=== PATIENT | male | born 1940 | race Caucasian/White ===

== ENCOUNTER → 2016-07-02 | Outpatient (CLI) | payer MEDICARE, BC ==
[2016-07-02 10:43] LABS: Anion Gap 12 mmol/L; Blood Urea Nitrogen 29 mg/dL (9-20); Calcium 9.3 mg/dL (8.4-10.2); Carbon Dioxide 25 mmol/L (22-30); Chloride 102 mmol/L (98-107); Glucose 107 mg/dL (74-99); Non-African American GFR(MDRD) 55 (>60 ml/min/1.73 sqM); Potassium 4.5 mmol/L (3.5-5.1); Sodium 139 mmol/L (137-145)
== END | disposition home or self-care (01) ==
LOC: LABWHC1 09:34
PROVIDERS: ATTEND Internal Medicine
DX: Z48.812 Encounter for surgical aftercare following surgery on the circulatory system (principal); Z95.2 Presence of prosthetic heart valve
CPT/HCPCS: 36415; 80048; 85610

== ENCOUNTER → 2017-03-06 | Outpatient (CLI) | payer MEDICARE, BC ==
[2017-03-06 14:26] LABS: INR 1.2 (<1.2); Prothrombin Time 11.5 sec (9.0-12.0)
[2017-03-06 14:55] LABS: Calcium 9.3 mg/dL (8.4-10.2); Potassium 4.8 mmol/L (3.5-5.1)
== END | disposition home or self-care (01) ==
LOC: LABWHC1 13:52
PROVIDERS: ATTEND Internal Medicine
DX: Z51.81 Encounter for therapeutic drug level monitoring (principal); Z79.01 Long term (current) use of anticoagulants
CPT/HCPCS: 36415; 80048; 83880; 85610

== ENCOUNTER → 2017-06-21 | Outpatient (CLI) | payer MEDICARE, BC ==
[2017-06-21 12:36] LABS: Calcium 9.4 mg/dL (8.4-10.2); Potassium 4.5 mmol/L (3.5-5.1)
== END | disposition home or self-care (01) ==
LOC: LABWHC1 11:53 → EDSTATUS 11:56
PROVIDERS: ATTEND Internal Medicine
DX: I42.8 Other cardiomyopathies (principal); I50.9 Heart failure, unspecified; I51.9 Heart disease, unspecified
CPT/HCPCS: 36415; 80048; 83880

== ENCOUNTER 2017-11-27 08:01 | Day surgery (SDC) | payer MEDICARE, BC ==
[2017-11-21 11:03] VITALS: BMI 22.5
[~2017-11-27 08:01] MED LIST: FAMOTIDINE 20 MG/2 ML VIAL IV ONE; HYDROmorphone 0.5 MG/0.5 ML SYRINGE IVP PRN; LACTATED RINGERS 1,000 ML IV SCH; LIDOCAINE 1% 20 ML VIAL (10MG/ML) FOR IV START INTRADERMA PRN; ceFAZolin 1,000 MG in DEXTROSE/WATER 1 50ML.BAG IV ONE
[2017-11-27 08:32] VITALS: RESP 16; TEMP 97.6
[2017-11-27] MEDS ORDERED: ONDANSETRON 4 MG/2 ML VIAL IVP ONE (08:50)
[2017-11-27] MEDS ORDERED: MIDAZOLAM 2 MG/2 ML VIAL ONE (09:40)
[2017-11-27] MEDS ORDERED: KETAMINE 10 MG/ML 20 ML VIAL ONE (09:40)
[2017-11-27] MEDS ORDERED: LIDOCAINE 1%-EPI 1:100,000 30 ML VIAL SQ ONE ×3 (09:59)
[2017-11-27] MEDS ORDERED: BACITRACIN OINT 1 EACH PACKET TOPICAL ONE (10:50)
--- NOTE | 2017-11-27 11:01 | P.OP ---
Date of Procedure: 11/27/17 Preoperative Diagnosis: Left cheek lesion Scalp lesion Postoperative Diagnosis: Same Procedure(s) Performed: Excision left cheek skin lesion 3.5 x 2.7 cm Local flap reconstruction left cheek defect with primary defect 3.5-2.7 cm and secondary defect 3.5 x 2.9 cm Shave excision scalp lesion 1.7 cm Anesthesia: MAC Surgeon: Davi Velez Estimated Blood Loss (ml): 5 Pathology: other (Left cheek and scalp lesions) Condition: stable Disposition: PACU Indications for Procedure: Is a 77-year-old white male with an enlarging left cheek and scalp lesions Operative Findings: Left cheek lesion which is erythematous and papillomatous and flaking scaling scalp lesion- frozen section on the left cheek skin lesion was scar and negative for malignancy Description of Procedure: The patient brought in the operative suite and placed in a supine position. Patient underwent induction of IV sedation with appropriate monitors placed by the motor electrician prior to this. The patient was prepped and draped in usual aseptic fashion. 1% lidocaine with [id number] epinephrine was infused subcutaneously in field block fashion at both sites. This was allowed to work for 7 minutes vasoconstrictive effect. The left cheek skin lesion was excised grossly entirely and sent for frozen section with the above-noted findings. The edges of the wound are undermined and hemostasis gained with electrocautery. Local rotation advancement flaps were developed from lateral and medial with backcuts in order to close the defect. The defect was then closed with inverted interrupted 5-0 Vicryl suture skin closed with running locking and simple interrupted 5-0 Prolene suture. Bacitracin ointment sterile dressing were placed. The scalp lesion was excised shave excision technique and hemostasis gained with electrocautery. Bacitracin ointment sterile dressing were placed. This was sent for permanent section. The patient was allowed to emerge from anesthesia having tolerated procedure well and was transferred to postop recovery in satisfactory condition.
[2017-11-27 11:27] VITALS: BP 110/72; PULSE 59
== END 2017-11-27 12:15 | disposition home or self-care (01) ==
LOC: OR 08:01
PROVIDERS: ATTEND Otolaryngology
DX: L90.5 Scar conditions and fibrosis of skin (principal); L57.8 Other skin changes due to chronic exposure to nonionizing radiation; L57.0 Actinic keratosis; Z87.891 Personal history of nicotine dependence; J43.9 Emphysema, unspecified; M19.90 Unspecified osteoarthritis, unspecified site; Z95.5 Presence of coronary angioplasty implant and graft; Z79.01 Long term (current) use of anticoagulants; Z79.82 Long term (current) use of aspirin; Z88.5 Allergy status to narcotic agent; Z91.041 Radiographic dye allergy status; Z91.09 Other allergy status, other than to drugs and biological substances
CPT/HCPCS: 88305; 88331; 88332; 11307; 14041; J2250; J2405; J0690

== ENCOUNTER → 2017-12-09 | Outpatient (CLI) | payer MEDICARE, BC ==
[2017-12-09 12:09] LABS: INR 1.1 (<1.2); Prothrombin Time 10.8 sec (9.0-12.0)
== END | disposition home or self-care (01) ==
LOC: LABWHC1 10:41
PROVIDERS: ATTEND Nurse Practitioner Family
DX: I48.91 Unspecified atrial fibrillation (principal); Z79.01 Long term (current) use of anticoagulants
CPT/HCPCS: 36415; 85610

== ENCOUNTER → 2017-12-26 | Outpatient (CLI) | payer MEDICARE, BC ==
--- NOTE | 2017-12-26 15:17 | CT ---
EXAMINATION TYPE: CT chest wo con DATE OF EXAM: 12/26/2017 COMPARISON: None HISTORY: Cough Unenhanced CT of the chest was performed with lung and mediastinal window settings submitted. The la ck of contrast limits evaluation of the vascular, mediastinal and parenchymal structures including th e upper abdomen. LUNGS: Upper lobe emphysematous changes noted moderate to severe in degree. Others mild subpleural fi brosis seen at the lung bases. Nodular density right lower lobe posteriorly measuring 6.8 mm image 49 of 68. No focal consolidation or volume loss. Calcified granuloma right lower lobe as well. MEDIASTINUM/MADHAVI: Small sliding-type hiatal hernia noted. Thoracic aorta is of normal caliber with l imited evaluation given lack of contrast. The heart is enlarged. No evidence for mediastinal mass. No lymph nodes greater than 1cm. UPPER ABDOMEN: No significant abnormality is seen. OTHER: No significant other abnormality. IMPRESSION: 1. Moderate to severe emphysematous changes. 2. Mild basilar subpleural fibrosis without focal consolidation. 3. Nonspecific nodular density right lower lobe measuring 6.8 mm. Follow-up in approximately 4-6 lexi hs is advised.
== END ==
LOC: RADCTMAIN 14:41
PROVIDERS: ATTEND Nurse Practitioner Family
DX: J43.9 Emphysema, unspecified (principal); J84.10 Pulmonary fibrosis, unspecified; R91.1 Solitary pulmonary nodule
CPT/HCPCS: 71250

== ENCOUNTER 2018-10-07 20:35 | Emergency (ER) | payer MEDICARE, BC ==
[2018-10-07 20:45] VITALS: TEMP 97.9
[2018-10-07] MEDS ORDERED: SODIUM CHLORIDE 0.9% 500 ML 500 ML IV STA (21:00)
[2018-10-07] MEDS ORDERED: METOCLOPRAMIDE 5 MG/ML 2 ML VIAL IVP STA (21:14)
[2018-10-07 21:20] LABS: Basophils % (A) 1 %; Eosinophils # (A) 0.4 k/uL (0-0.7); Eosinophils % (A) 7 %; HCT 47.9 % (39.0-53.0); HGB 15.9 gm/dL (13.0-17.5); Lymphocytes # (A) 1.3 k/uL (1.0-4.8); Lymphocytes % (A) 21 %; MCH 32.3 pg (25.0-35.0); MCHC 33.2 g/dL (31.0-37.0); MCV 97.3 fL (80.0-100.0); Mean Platelet Volume 7.3; Monocytes # (A) 0.4 k/uL (0-1.0); Monocytes % (A) 7 %; Neutrophils # (A) 3.7 k/uL (1.3-7.7); Neutrophils % (A) 62 %; Platelet Count 167 k/uL (150-450); RBC 4.92 m/uL (4.30-5.90); RDW 13.6 % (11.5-15.5); WBC 5.9 k/uL (3.8-10.6)
--- NOTE | 2018-10-07 21:20 | ED ---
General Adult HPI - General Chief complaint: Arrhythmia/Palpitations Stated complaint: COPD, Heart arrythmia Time Seen by Provider: 10/07/18 20:59 Source: patient Mode of arrival: ambulatory Limitations: no limitations - History of Present Illness Initial comments: Dictation was produced using [employer] dictation software. please excuse any grammatical, word or spelling errors. Chief Complaint: 78-year-old male with past medical history of unknown arrhythmia presents with palpitations. History of Present Illness: Patient is 78-year-old male who has past medical history of COPD dyslipidemia arrhythmia. Presents today for chief complaint of palpitations. His symptoms have been ongoing for approximately 4-6 hours. Jovita coker has history of arrhythmia. He's been without his beta bebo medications for approximately one week. Patient takes bisoprolol fumarate 5 mg daily. He gets his medication sent to his house. He was also having received his medication on Saturday however has not gotten it. 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 Patient has no other complaints at this time. He denies any chest pain shortness of breath. Does not feel dizzy or lightheaded. He states he has a history of atrial fibrillation however is not completely sure. He does take Coumadin. Patient spent on this beta bebo medications for several years. This is a first time he has missed any doses in the last several years. The ROS documented in this emergency department record has been reviewed and confirmed by me. Those systems with pertinent positive or negative responses have been documented in the HPI. All other systems are other negative and/or noncontributory. PHYSICAL EXAM: General Impression: Alert and oriented x3, not in acute distress HEENT: Normocephalic atraumatic, extra-ocular movements intact, pupils equal and reactive to light bilaterally, mucous membranes moist. Cardiovascular: Tachycardic, no murmurs Chest: Lungs clear to auscultation bilaterally, no rhonchi, no wheeze, no rales Abdomen: Bowel sounds present, abdomen soft, non-tender, non-distended, no organomegaly Musculoskeletal: Pulses present and equal in all extremities, no peripheral edema Motor: no focal deficits noted Neurological: CN II-XII grossly intact, no focal motor or sensory deficits noted Skin: Intact with no visualized rashes Psych: Normal affect and mood ED course: 78-year-old male presents with palpitations. He has history of arrhythmia. He thinks that his arrhythmias, atrial fibrillation. On arrival shows heart rate of 120, rest of vital signs within acceptable limits. Patient's well-appearing at bedside. Denies chest pain shortness of breath or presyncope. Patient's clinical presentation is likely secondary to rebound tachycardia secondary to noncompliance with his beta bebo medication. EKG shows sinus tachycardia. Laboratory evaluation obtained. CBC unremarkable. Coag panel shows INR 1.9. Metabolic panel is negative. Troponin slightly elevated 0.032. This likely secondary to rate dependent ischemia. Rest of labs are unremarkable. Patient given 5 mg of IV metoprolol with improvement of heart rate to 80s. Patient continues to feel well. Patient given maintenance oral dose of 25 mg by mouth. Chest x-ray shows mild pulmonary interstitial patterns. This likely from chronic COPD. Patient given prescription to fill his bisoprolol all. He is instructed to resume this tomorrow. Patient clear for discharge advised to follow-up with primary care doctor. He is notified of his INR 1.9. He is told to recheck this with his PCP. Temperature is discussed. Patient clear for discharge. EKG interpretation: Ventricular rate 114, sinus tachycardia, AK interval 192, care's 120, QTc 501. No AK prolongation, no QTC prolongation, no ST or T-wave changes noted. Overall, this EKG is unremarkable - Related Data Home Medications Medication Instructions Recorded Confirmed Aspirin 325 mg PO DAILY 11/21/17 10/07/18 Atorvastatin [Lipitor] 10 mg PO HS 11/21/17 10/07/18 Bisoprolol Fumarate [Zebeta] 5 mg PO QAM 11/21/17 10/07/18 Budesonide/Formoterol Fumarate 2 puff INHALATION RT-BID 11/21/17 10/07/18 [Symbicort 80-4.5 Mcg Inhaler] Furosemide [Lasix] 40 mg PO DAILY 11/21/17 10/07/18 LORazepam [Ativan] 1 mg PO TID PRN 11/21/17 10/07/18 Tamsulosin [Flomax] 0.4 mg PO DAILY 11/21/17 10/07/18 Tiotropium 18 Mcg/Puff [Spiriva] 1 puff INHALATION QAM 11/21/17 10/07/18 Acetylcysteine [Nac] 500 mg PO BID 10/07/18 10/07/18 [place]-3 Fatty Acids/Fish Oil [Fish 1 cap PO DAILY 10/07/18 10/07/18 Oil 1,000 mg Softgel] Warfarin Sodium [Coumadin] 2 mg PO SUMOTUWEFR 10/07/18 10/07/18 Warfarin Sodium [Coumadin] 5 mg PO THSA 10/07/18 10/07/18 Previous Rx's Medication Instructions Recorded Bisoprolol Fumarate 5 mg PO DAILY 12 Days #12 tablet 10/07/18 Allergies Allergy/AdvReac Type Severity Reaction Status Date / Time pain med (can't remember Allergy Hallucinati Uncoded 10/07/18 21:00 name) ons Patches on chest Allergy Swelling Uncoded 10/07/18 21:00 Review of Systems ROS Statement: Those systems with pertinent positive or pertinent negative responses have been documented in the HPI. ROS Other: All systems not noted in ROS Statement are negative. Past Medical History Past Medical History: COPD, Hyperlipidemia, Osteoarthritis (OA), Pneumonia, Skin Disorder, Vascular Disorder Additional Past Medical History / Comment(s): Has lower abdominal aortic aneurysym. Varicose veins. Left cheek mass/scalp lesion. Hx pneumonia, yrs ago. Hx Shingles. "May have a mild case of Fibromyagia." History of Any Multi-Drug Resistant Organisms: None Reported Past Surgical History: Cardiac Valve Replacement, Cholecystectomy Additional Past Surgical History / Comment(s): Stent placed for lower abd aortic aneurysym. Past Anesthesia/Blood Transfusion Reactions: No Reported Reaction Date of Last Stent Placement:: 2015 Past Psychological History: Anxiety Smoking Status: Former smoker Past Alcohol Use History: Daily Past Drug Use History: None Reported - Past Family History Mother Family Medical History: Myocardial Infarction ([place]) Additional Family Medical History / Comment(s): at a young age. General Exam Limitations: no limitations Course Vital Signs 10/07/18 10/07/18 20:39 22:53 Temperature 97.9 F Pulse Rate 120 H 108 H Respiratory 22 16 Rate Blood Pressure 158/77 142/81 O2 Sat by Pulse 95 96 Oximetry Medical Decision Making - Lab Data Result diagrams: 10/07/18 21:05 10/07/18 21:05 Lab Results 10/07/18 10/07/18 10/07/18 Range/Units 21:05 21:05 21:05 WBC 5.9 (3.8-10.6) k/uL RBC 4.92 (4.30-5.90) m/uL Hgb 15.9 (13.0-17.5) gm/dL Hct 47.9 (39.0-53.0) % MCV 97.3 (80.0-100.0) fL MCH 32.3 (25.0-35.0) pg MCHC 33.2 (31.0-37.0) g/dL RDW 13.6 (11.5-15.5) % Plt Count 167 (150-450) k/uL Neutrophils % 62 % Lymphocytes % 21 % Monocytes % 7 % Eosinophils % 7 % Basophils % 1 % Neutrophils # 3.7 (1.3-7.7) k/uL Lymphocytes # 1.3 (1.0-4.8) k/uL Monocytes # 0.4 (0-1.0) k/uL Eosinophils # 0.4 (0-0.7) k/uL Basophils # 0.0 (0-0.2) k/uL PT 19.1 H (9.0-12.0) sec INR 1.9 H (<1.2) APTT 37.2 H (22.0-30.0) sec Sodium 140 (137-145) mmol/L Potassium 3.7 (3.5-5.1) mmol/L Chloride 105 (98-107) mmol/L Carbon Dioxide 25 (22-30) mmol/L Anion Gap 10 mmol/L BUN 20 (9-20) mg/dL Creatinine 1.25 (0.66-1.25) mg/dL Est GFR (CKD-EPI)AfAm 64 (>60 ml/min/1.73 sqM) Est GFR (CKD-EPI)NonAf 56 (>60 ml/min/1.73 sqM) Glucose 135 H (74-99) mg/dL Calcium 9.3 (8.4-10.2) mg/dL Magnesium 2.1 (1.6-2.3) mg/dL Total Bilirubin 0.7 (0.2-1.3) mg/dL AST 27 (17-59) U/L ALT 15 L (21-72) U/L Alkaline Phosphatase 77 (38-126) U/L Troponin I (0.000-0.034) ng/mL Total Protein 7.0 (6.3-8.2) g/dL Albumin 4.2 (3.5-5.0) g/dL TSH 1.630 (0.465-4.680) mIU/L 10/07/18 Range/Units 21:05 WBC (3.8-10.6) k/uL RBC (4.30-5.90) m/uL Hgb (13.0-17.5) gm/dL Hct (39.0-53.0) % MCV (80.0-100.0) fL MCH (25.0-35.0) pg MCHC (31.0-37.0) g/dL RDW (11.5-15.5) % Plt Count (150-450) k/uL Neutrophils % % Lymphocytes % % Monocytes % % Eosinophils % % Basophils % % Neutrophils # (1.3-7.7) k/uL Lymphocytes # (1.0-4.8) k/uL Monocytes # (0-1.0) k/uL Eosinophils # (0-0.7) k/uL Basophils # (0-0.2) k/uL PT (9.0-12.0) sec INR (<1.2) APTT (22.0-30.0) sec Sodium (137-145) mmol/L Potassium (3.5-5.1) mmol/L Chloride (98-107) mmol/L Carbon Dioxide (22-30) mmol/L Anion Gap mmol/L BUN (9-20) mg/dL Creatinine (0.66-1.25) mg/dL Est GFR (CKD-EPI)AfAm (>60 ml/min/1.73 sqM) Est GFR (CKD-EPI)NonAf (>60 ml/min/1.73 sqM) Glucose (74-99) mg/dL Calcium (8.4-10.2) mg/dL Magnesium (1.6-2.3) mg/dL Total Bilirubin (0.2-1.3) mg/dL AST (17-59) U/L ALT (21-72) U/L Alkaline Phosphatase (38-126) U/L Troponin I 0.032 (0.000-0.034) ng/mL Total Protein (6.3-8.2) g/dL Albumin (3.5-5.0) g/dL TSH (0.465-4.680) mIU/L Disposition Clinical Impression: Atrial fibrillation Disposition: HOME SELF-CARE Condition: Good Instructions (If sedation given, give patient instructions): Heart Palpitations (ED) Prescriptions: Bisoprolol Fumarate 5 mg PO DAILY 12 Days #12 tablet Is patient prescribed a controlled substance at d/c from ED?: No Referrals: Tan Bey Jr, [Primary Care Provider] - 1-2 days Time of Disposition: 23:20
[2018-10-07 21:32] LABS: Albumin 4.2 g/dL (3.5-5.0); Calcium 9.3 mg/dL (8.4-10.2); Magnesium 2.1 mg/dL (1.6-2.3); Potassium 3.7 mmol/L (3.5-5.1); Total Bilirubin 0.7 mg/dL (0.2-1.3)
[2018-10-07 21:33] LABS: INR 1.9 (<1.2); Partial Thromboplastin Time 37.2 sec (22.0-30.0); Prothrombin Time 19.1 sec (9.0-12.0)
--- NOTE | 2018-10-07 22:11 | XR ---
EXAMINATION: XR chest 2V DATE AND TIME: 10/07/2018 9:28 PM CLINICAL INDICATION: PHH; dysrhythmia TECHNIQUE: Departmental protocol COMPARISON: None FINDINGS: Advanced emphysematous changes are noted with a coarse reticular pattern throughout the mid and lower lung zone consistent with chronic interstitial lung change. In addition, there may be a superimposed fine reticular pattern of increased attenuation throughout t he lungs, which would correlate with mildly elevated left heart pressures clinically. The pleural spaces are negative. Sternal sutures and mediastinal clips, EKG leads, and cardiac valve prosthesis. The cardiac silhouette is mild-moderately enlarged. The skeletal structures and soft tissues are negative for acute findings. IMPRESSION: Pulmonary interstitial patterns.
[2018-10-07] MEDS ORDERED: METOPROLOL TARTRATE 5 MG/5 ML VIAL IVP STA (22:35)
[2018-10-07] MEDS ORDERED: METOPROLOL TARTRATE 25 MG TAB PO STA (23:17)
[2018-10-07 23:37] VITALS: BP 138/61; PULSE 95; RESP 18
== END 2018-10-07 23:48 | disposition home or self-care (01) ==
LOC: EC 20:35
DX: I48.91 Unspecified atrial fibrillation (principal); J44.9 Chronic obstructive pulmonary disease, unspecified; E78.5 Hyperlipidemia, unspecified; I49.9 Cardiac arrhythmia, unspecified; F41.9 Anxiety disorder, unspecified; Z95.2 Presence of prosthetic heart valve; Z87.891 Personal history of nicotine dependence; Z82.49 Family history of ischemic heart disease and other diseases of the circulatory system; Z79.82 Long term (current) use of aspirin; Z79.51 Long term (current) use of inhaled steroids; Z79.01 Long term (current) use of anticoagulants; Z79.899 Other long term (current) drug therapy; Z88.6 Allergy status to analgesic agent; Z91.048 Other nonmedicinal substance allergy status
CPT/HCPCS: 36415; 93005; 80053; 83735; 84443; 84484; 85025; 85610; 85730; 71046; 99285; 96374; 96375; J2765

== ENCOUNTER 2019-06-30 10:18 | Inpatient (IN) | payer MEDICARE, BC ==
[2019-06-30] MEDS ORDERED: SODIUM CHLORIDE 0.9% 500 ML 500 ML IV ONE (10:45)
--- NOTE | 2019-06-30 10:45 | ED ---
General Adult HPI - General Chief complaint: Abdominal Pain Stated complaint: dehydration/diarrhea Time Seen by Provider: 06/30/19 10:35 Source: patient, RN notes reviewed, old records reviewed Mode of arrival: ambulatory Limitations: no limitations - History of Present Illness Initial comments: 79-year-old male presents for evaluation of alternating constipation and diarrhea as well as concern that he may be dehydrated as his urine production has been somewhat limited. He is on 80 mg of Lasix daily. He is on home oxygen with history of COPD. He denies any worsening of his breathing, denies fever. Denies abdominal pain. Stating that he's had some sensation that he has to have a bowel movement but has only had minimal diarrhea with this. He does state that the diarrhea is black. He is currently on Coumadin with history of atrial fibrillation as well as mitral valve replacement. No cough or URI symptoms, no fever, no pain complaints. - Related Data Home Medications Medication Instructions Recorded Confirmed Aspirin 325 mg PO DAILY 11/21/17 10/07/18 Atorvastatin [Lipitor] 10 mg PO HS 11/21/17 10/07/18 Bisoprolol Fumarate [Zebeta] 5 mg PO QAM 11/21/17 10/07/18 Budesonide/Formoterol Fumarate 2 puff INHALATION RT-BID 11/21/17 10/07/18 [Symbicort 80-4.5 Mcg Inhaler] Furosemide [Lasix] 40 mg PO DAILY 11/21/17 10/07/18 LORazepam [Ativan] 1 mg PO TID PRN 11/21/17 10/07/18 Tamsulosin [Flomax] 0.4 mg PO DAILY 11/21/17 10/07/18 Tiotropium 18 Mcg/Puff [Spiriva] 1 puff INHALATION QAM 11/21/17 10/07/18 Acetylcysteine [Nac] 500 mg PO BID 10/07/18 10/07/18 [place]-3 Fatty Acids/Fish Oil [Fish 1 cap PO DAILY 10/07/18 10/07/18 Oil 1,000 mg Softgel] Warfarin Sodium [Coumadin] 2 mg PO SUMOTUWEFR 10/07/18 10/07/18 Warfarin Sodium [Coumadin] 5 mg PO THSA 10/07/18 10/07/18 Previous Rx's Medication Instructions Recorded Bisoprolol Fumarate 5 mg PO DAILY 12 Days #12 tablet 10/07/18 Allergies Allergy/AdvReac Type Severity Reaction Status Date / Time pain med (can't remember Allergy Hallucinati Uncoded 10/07/18 21:00 name) ons Patches on chest Allergy Swelling Uncoded 10/07/18 21:00 Review of Systems ROS Statement: Those systems with pertinent positive or pertinent negative responses have been documented in the HPI. ROS Other: All systems not noted in ROS Statement are negative. Past Medical History Past Medical History: COPD, Hyperlipidemia, Osteoarthritis (OA), Pneumonia, Skin Disorder, Vascular Disorder Additional Past Medical History / Comment(s): Has lower abdominal aortic aneurysym. Varicose veins. Left cheek mass/scalp lesion. Hx pneumonia, yrs ago. Hx Shingles. "May have a mild case of Fibromyagia." History of Any Multi-Drug Resistant Organisms: None Reported Past Surgical History: Cardiac Valve Replacement, Cholecystectomy Additional Past Surgical History / Comment(s): Stent placed for lower abd aortic aneurysym. Past Anesthesia/Blood Transfusion Reactions: No Reported Reaction Date of Last Stent Placement:: 2015 Past Psychological History: Anxiety Smoking Status: Former smoker Past Alcohol Use History: Daily Past Drug Use History: None Reported - Past Family History Mother Family Medical History: Myocardial Infarction ([place]) Additional Family Medical History / Comment(s): at a young age. General Exam Limitations: no limitations General appearance: alert, in no apparent distress Head exam: Present: atraumatic, normocephalic Eye exam: Present: normal appearance, PERRL ENT exam: Present: mucous membranes dry Neck exam: Present: normal inspection. Absent: tenderness Respiratory exam: Present: decreased breath sounds. Absent: respiratory distress, wheezes Cardiovascular Exam: Present: regular rate, normal rhythm GI/Abdominal exam: Present: soft. Absent: distended, tenderness, guarding Extremities exam: Present: normal inspection, normal capillary refill. Absent: pedal edema, calf tenderness Neurological exam: Present: alert, oriented X3, CN II-XII intact. Absent: motor sensory deficit Psychiatric exam: Present: normal affect, normal mood Skin exam: Present: warm, dry, intact. Absent: cyanosis, diaphoretic Course Vital Signs 06/30/19 10:27 Temperature 98.0 F Pulse Rate 99 Respiratory 18 Rate Blood Pressure 139/76 O2 Sat by Pulse 99 Oximetry Medical Decision Making - Medical Decision Making 79-year-old male with dark stool, intermittent constipation and diarrhea. On Coumadin with prosthetic heart valve. Workup reveals a hemoglobin 10.3 which is down from previous of 15.9. His INR is elevated at 5.3. He has urinalysis showing concern for UTI. His stool is heme positive. Given the drop in hemoglobin and the elevated INR there is concern for upper GI hemorrhage. He started on Protonix. He will be admitted for hemoglobin monitoring, GI consultation. His vital signs remained stable in the emergency department. Will hold Coumadin. We will trend hemoglobin. - Lab Data Result diagrams: 06/30/19 11:10 06/30/19 11:10 Lab Results 06/30/19 06/30/19 06/30/19 Range/Units 11:10 11:10 11:10 WBC 6.8 (3.8-10.6) k/uL RBC 3.46 L (4.30-5.90) m/uL Hgb 10.3 L (13.0-17.5) gm/dL Hct 32.4 L (39.0-53.0) % MCV 93.8 (80.0-100.0) fL MCH 29.7 (25.0-35.0) pg MCHC 31.7 (31.0-37.0) g/dL RDW 13.6 (11.5-15.5) % Plt Count 214 (150-450) k/uL Neutrophils % 79 % Lymphocytes % 10 % Monocytes % 5 % Eosinophils % 3 % Basophils % 1 % Neutrophils # 5.4 (1.3-7.7) k/uL Lymphocytes # 0.7 L (1.0-4.8) k/uL Monocytes # 0.4 (0-1.0) k/uL Eosinophils # 0.2 (0-0.7) k/uL Basophils # 0.0 (0-0.2) k/uL Hypochromasia Slight PT 53.2 H (9.0-12.0) sec INR 5.3 H* (<1.2) APTT 43.2 H (22.0-30.0) sec Sodium (137-145) mmol/L Potassium (3.5-5.1) mmol/L Chloride (98-107) mmol/L Carbon Dioxide (22-30) mmol/L Anion Gap mmol/L BUN (9-20) mg/dL Creatinine (0.66-1.25) mg/dL Est GFR (CKD-EPI)AfAm (>60 ml/min/1.73 sqM) Est GFR (CKD-EPI)NonAf (>60 ml/min/1.73 sqM) Glucose (74-99) mg/dL Calcium (8.4-10.2) mg/dL Total Bilirubin (0.2-1.3) mg/dL AST (17-59) U/L ALT (4-49) U/L Alkaline Phosphatase (38-126) U/L Total Protein (6.3-8.2) g/dL Albumin (3.5-5.0) g/dL Urine Color Urine Appearance (Clear) Urine pH (5.0-8.0) Ur Specific [place] (1.001-1.035) Urine Protein (Negative) Urine Glucose (UA) (Negative) Urine Ketones (Negative) Urine Blood (Negative) Urine Nitrite (Negative) Urine Bilirubin (Negative) Urine Urobilinogen (<2.0) mg/dL Ur Leukocyte Esterase (Negative) Urine RBC (0-5) /hpf Urine WBC (0-5) /hpf Ur Squamous Epith Cells (0-4) /hpf Urine Bacteria (None) /hpf Hyaline Casts (0-2) /lpf Urine Mucus (None) /hpf Stool Occult Blood Positive (Negative) 06/30/19 06/30/19 Range/Units 11:10 11:10 WBC (3.8-10.6) k/uL RBC (4.30-5.90) m/uL Hgb (13.0-17.5) gm/dL Hct (39.0-53.0) % MCV (80.0-100.0) fL MCH (25.0-35.0) pg MCHC (31.0-37.0) g/dL RDW (11.5-15.5) % Plt Count (150-450) k/uL Neutrophils % % Lymphocytes % % Monocytes % % Eosinophils % % Basophils % % Neutrophils # (1.3-7.7) k/uL Lymphocytes # (1.0-4.8) k/uL Monocytes # (0-1.0) k/uL Eosinophils # (0-0.7) k/uL Basophils # (0-0.2) k/uL Hypochromasia PT (9.0-12.0) sec INR (<1.2) APTT (22.0-30.0) sec Sodium 139 (137-145) mmol/L Potassium 3.3 L (3.5-5.1) mmol/L Chloride 99 (98-107) mmol/L Carbon Dioxide 27 (22-30) mmol/L Anion Gap 13 mmol/L BUN 26 H (9-20) mg/dL Creatinine 1.21 (0.66-1.25) mg/dL Est GFR (CKD-EPI)AfAm 66 (>60 ml/min/1.73 sqM) Est GFR (CKD-EPI)NonAf 57 (>60 ml/min/1.73 sqM) Glucose 122 H (74-99) mg/dL Calcium 9.3 (8.4-10.2) mg/dL Total Bilirubin 1.0 (0.2-1.3) mg/dL AST 30 (17-59) U/L ALT 17 (4-49) U/L Alkaline Phosphatase 74 (38-126) U/L Total Protein 7.0 (6.3-8.2) g/dL Albumin 4.3 (3.5-5.0) g/dL Urine Color Yellow Urine Appearance Cloudy (Clear) Urine pH 6.5 (5.0-8.0) Ur Specific [place] 1.014 (1.001-1.035) Urine Protein Trace H (Negative) Urine Glucose (UA) Negative (Negative) Urine Ketones Negative (Negative) Urine Blood Trace H (Negative) Urine Nitrite Negative (Negative) Urine Bilirubin Negative (Negative) Urine Urobilinogen <2.0 (<2.0) mg/dL Ur Leukocyte Esterase Large H (Negative) Urine RBC 1 (0-5) /hpf Urine WBC 26 H (0-5) /hpf Ur Squamous Epith Cells 6 H (0-4) /hpf Urine Bacteria Moderate H (None) /hpf Hyaline Casts 7 H (0-2) /lpf Urine Mucus Rare H (None) /hpf Stool Occult Blood (Negative) Disposition Clinical Impression: GI bleed, Supratherapeutic INR Disposition: ADMITTED IP TO THIS HOSP Condition: Stable Is patient prescribed a controlled substance at d/c from ED?: No Referrals: Tan Bey Jr, DO [Primary Care Provider] - 1-2 days Decision to Admit Reason: Admit from EC Decision Date: 06/30/19 Decision Time: 12:49
[2019-06-30 11:40] LABS: Basophils % (A) 1 %; Eosinophils # (A) 0.2 k/uL (0-0.7); Eosinophils % (A) 3 %; HCT 32.4 % (39.0-53.0); HGB 10.3 gm/dL (13.0-17.5); Hypochromasia Slight; Lymphocytes # (A) 0.7 k/uL (1.0-4.8); Lymphocytes % (A) 10 %; MCH 29.7 pg (25.0-35.0); MCHC 31.7 g/dL (31.0-37.0); MCV 93.8 fL (80.0-100.0); Mean Platelet Volume 8.9; Monocytes # (A) 0.4 k/uL (0-1.0); Monocytes % (A) 5 %; Neutrophils # (A) 5.4 k/uL (1.3-7.7); Neutrophils % (A) 79 %; Platelet Count 214 k/uL (150-450); RBC 3.46 m/uL (4.30-5.90); RDW 13.6 % (11.5-15.5); WBC 6.8 k/uL (3.8-10.6)
[2019-06-30 11:47] LABS: Albumin 4.3 g/dL (3.5-5.0); Calcium 9.3 mg/dL (8.4-10.2); Potassium 3.3 mmol/L (3.5-5.1)
--- NOTE | 2019-06-30 11:52 | XR ---
EXAMINATION TYPE: XR KUB DATE OF EXAM: 06/30/2019 Comparison: None Clinical History: 79-year-old male abdominal pain Findings: Some flattening of the diaphragm suggests underlying COPD. Annuloplasty ring and prosthetic cardiac v alve demonstrated. No evidence for free intraperitoneal air. Cholecystectomy clips. Aortobiiliac endovascular stent graft is present. Moderate stool in the right-sided the abdomen. No dilated small bowel or air-fluid levels. Small amount of air throughout the left side of the colon and rectum. Impression: 1. Nonobstructive bowel gas pattern. No free air. 2. Moderate stool in the right side of the abdomen. 3. Annuloplasty ring and prosthetic heart valve, cholecystectomy clips, and aortobiiliac endovascular stent graft.
[2019-06-30 11:53] LABS: Appearance,Urine Cloudy (Clear); Bacteria,Urine Moderate /hpf; Bilirubin,Urine Negative (Negative); Blood,Urine Trace (Negative); Color,Urine Yellow; Glucose,Urine (UA) Negative (Negative); Hyaline Casts,Urine 7 /lpf (0-2); Ketones,Urine Negative (Negative); Leukocyte Esterase,Urine Large (Negative); Mucus,Urine Rare /hpf; Nitrite,Urine Negative (Negative); PH, Urine 6.5 (5.0-8.0); Protein,Urine Trace (Negative); RBC,Urine 1 /hpf (0-5); Specific Gravity,Urine 1.014 (1.001-1.035); Squamous Epithelial Cell,Urine 6 /hpf (0-4); Urobilinogen,Urine <2.0 mg/dL (<2.0); WBC,Urine 26 /hpf (0-5)
[2019-06-30 12:00] LABS: Partial Thromboplastin Time 43.2 sec (22.0-30.0); Prothrombin Time 53.2 sec (9.0-12.0)
[2019-06-30 12:19] LABS: INR 5.3 (<1.2)
[2019-06-30] MEDS ORDERED: cefTRIAXone IN SWFI 1,000 MG/10 ML SYRINGE IVP STA (12:23)
[2019-06-30] MEDS ORDERED: PANTOPRAZOLE 40 MG/10 ML VIAL IVP STA (12:23)
[2019-06-30] MEDS ORDERED: PHYTONADIONE ORAL 5 MG/5 ML ORAL.SYRG PO STA ×2 (12:44→13:16)
[2019-06-30] MEDS ORDERED: NALOXONE 0.4 MG/ML 1 ML VIAL IV PRN (12:45)
[2019-06-30] MEDS ORDERED: ACETAMINOPHEN TAB 325 MG TAB PO PRN (12:45)
[2019-06-30 16:38] LABS: Glucose,Whole Blood 113 mg/dL (75-99)
[2019-06-30] MEDS ORDERED: Potassium Replacement Protocol 1 EACH MISC MISCELLANE PRN (16:56)
[2019-06-30] MEDS ORDERED: Magnesium Replacement Protocol 1 EACH MISC MISCELLANE PRN (16:57)
[2019-06-30] MEDS ORDERED: IPRATROPIUM-ALBUTEROL 3 ML NEB INHALATION PRN (16:58)
[2019-06-30] MEDS ORDERED: ALBUTEROL HFA INHALER INHALATION PRN (19:21)
[2019-06-30] MEDS ORDERED: IPRATROPIUM-ALBUTEROL 3 ML NEB INHALATION SCH (20:00)
[2019-06-30] MEDS ORDERED: ALBUTEROL HFA INHALER INHALATION SCH (20:00)
[2019-06-30] MEDS: SYMBICORT 80-4.5 MCG INHALER INHALATION SCH (20:47)
[2019-06-30] MEDS: POTASSIUM CHLORIDE ER 20 MEQ TAB.ER PO SCH ×2 (20:50→22:17)
[2019-06-30] MEDS: LORazepam 1 MG TAB PO PRN (20:50)
[2019-06-30] MEDS: PANTOPRAZOLE 40 MG/10 ML VIAL IVP SCH (20:51)
[2019-06-30 21:24] LABS: HCT 29.6 % (39.0-53.0); HGB 9.3 gm/dL (13.0-17.5); Hypochromasia Slight; MCH 29.9 pg (25.0-35.0); MCHC 31.4 g/dL (31.0-37.0); MCV 95.2 fL (80.0-100.0); Mean Platelet Volume 8.1; Platelet Count 184 k/uL (150-450); RBC 3.11 m/uL (4.30-5.90); RDW 13.6 % (11.5-15.5); WBC 6.3 k/uL (3.8-10.6)
[2019-07-01 04:36] LABS: Basophils % (A) 1 %; Eosinophils # (A) 0.3 k/uL (0-0.7); Eosinophils % (A) 6 %; HCT 26.3 % (39.0-53.0); HGB 8.7 gm/dL (13.0-17.5); Hypochromasia Slight; Lymphocytes % (A) 23 %; MCH 31.2 pg (25.0-35.0); MCHC 33.1 g/dL (31.0-37.0); MCV 94.2 fL (80.0-100.0); Mean Platelet Volume 7.3; Monocytes # (A) 0.3 k/uL (0-1.0); Monocytes % (A) 7 %; Neutrophils # (A) 2.7 k/uL (1.3-7.7); Neutrophils % (A) 61 %; Platelet Count 194 k/uL (150-450); RBC 2.79 m/uL (4.30-5.90); RDW 13.8 % (11.5-15.5); WBC 4.5 k/uL (3.8-10.6)
[2019-07-01 04:43] LABS: INR 3.4 (<1.2); Prothrombin Time 33.3 sec (9.0-12.0)
[2019-07-01 05:00] LABS: Albumin 3.1 g/dL (3.5-5.0); Calcium 8.3 mg/dL (8.4-10.2); Magnesium 2.1 mg/dL (1.6-2.3); Potassium 3.5 mmol/L (3.5-5.1); Total Bilirubin 1.1 mg/dL (0.2-1.3); Total Protein 5.4 g/dL (6.3-8.2)
[2019-07-01] MEDS: POTASSIUM CHLORIDE ER 20 MEQ TAB.ER PO SCH ×2 (06:28→09:21)
[2019-07-01] MEDS: SYMBICORT 80-4.5 MCG INHALER INHALATION SCH ×2 (08:00→20:33)
[2019-07-01] MEDS ORDERED: NON FORMULARY DRUG (Tiotropium 18 Mcg/Puff 1 PUFF) INHALATION SCH (09:00)
[2019-07-01] MEDS: PANTOPRAZOLE 40 MG/10 ML VIAL IVP SCH ×2 (09:20→20:58)
[2019-07-01] MEDS: TAMSULOSIN 0.4 MG CAP.ER.24H PO SCH (09:20)
[2019-07-01] MEDS: TIOTROPIUM 18 MCG/PUFF INHALER INHALATION SCH (10:47)
--- NOTE | 2019-07-01 11:00 | P.HPIM ---
History of Present Illness H&P Date: 07/01/19 Chief Complaint: Rectal bleeding, black stools This is a 79-year-old gentleman with history of COPD, hyperlipidemia, pneumonia, vascular disorder, abdominal aortic aneurysm with stent placement, shingles, A. fib, mitral valve replacement-prosthetic on Coumadin, anxiety, former nicotine dependence, daily wine intake, presented to the ER with complaints of decreased urination ,fluctuating constipation and diarrhea, further developed rectal bleeding,loose black stools since yesterday accompanied by dyspnea. Denies nausea, vomiting. Denies abdominal pain. Denies cough , fever or chills. Denies chest pain, palpitations.INR on admission 5.3. KUB reported no obstructive bowel gas pattern, no evidence of free intraperitoneal air free, small amount of air through the left side of the colon and rectum, moderate stool in the right side of the abdomen. Tested negative for Coronavirus. Stool heme positive. EKG, troponin requested. Afebrile, WBC within normal limits. Hemoglobin 10.3, platelets 214 ,INR 5.3. Sodium 139, potassium 3.3, BUN 26, creatinine 1.21(appears at baseline), LFTs within normal limits, blood sugars controlled. Magnesium 2. UA reporting moderate bacteria, high WBCs and large leukocytes with negative nitrates.Rocephin initiated in the ER. Received vitamin K in the ER. Review of Systems ROS Statement: Those systems with pertinent positive or pertinent negative responses have been documented in the HPI. ROS Other: All systems not noted in ROS Statement are negative. Past Medical History Past Medical History: COPD, Hyperlipidemia, Pneumonia, Skin Disorder, Vascular Disorder Additional Past Medical History / Comment(s): Has lower abdominal aortic aneurysym. Varicose veins. Left cheek mass/scalp lesion. Hx pneumonia, yrs ago. Hx Shingles. 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 History of Any Multi-Drug Resistant Organisms: None Reported Past Surgical History: Cardiac Valve Replacement, Cholecystectomy Additional Past Surgical History / Comment(s): Stent placed for lower abd aortic aneurysym. Mitral Valve replacement, Bicuspid repair, Past Anesthesia/Blood Transfusion Reactions: No Reported Reaction Date of Last Stent Placement:: 2015 Smoking Status: Former smoker - Past Family History Mother Family Medical History: Myocardial Infarction ([place]) Additional Family Medical History / Comment(s): at a young age. Medications and Allergies Home Medications Medication Instructions Recorded Confirmed Type Aspirin 325 mg PO DAILY 11/21/17 06/30/19 History Atorvastatin [Lipitor] 10 mg PO HS 11/21/17 06/30/19 History Budesonide/Formoterol Fumarate 2 puff INHALATION RT-BID 11/21/17 06/30/19 Histo ry [Symbicort 80-4.5 Mcg Inhaler] LORazepam [Ativan] 1 mg PO TID PRN 11/21/17 06/30/19 History Tamsulosin [Flomax] 0.4 mg PO DAILY 11/21/17 06/30/19 History Tiotropium 18 Mcg/Puff [Spiriva] 1 puff INHALATION QAM 11/21/17 06/30/19 History Acetylcysteine [Nac] 600 mg PO BID 10/07/18 06/30/19 History Bisoprolol Fumarate 5 mg PO DAILY 12 Days #12 tablet 10/07/18 06/30/19 Rx Warfarin Sodium [Coumadin] 2 mg PO SUMOTUWEFR 10/07/18 06/30/19 History Warfarin Sodium [Coumadin] 5 mg PO THSA 10/07/18 06/30/19 History Furosemide [Lasix] 60 mg PO W/SUPPER 06/30/19 06/30/19 History Furosemide [Lasix] 80 mg PO DAILY 06/30/19 06/30/19 History Allergies Allergy/AdvReac Type Severity Reaction Status Date / Time albuterol Allergy Rapid Verified 06/30/19 20:56 Heart Rate pain med (can't remember Allergy Hallucinati Uncoded 10/07/18 21:00 name) ons Patches on chest Allergy Swelling Uncoded 10/07/18 21:00 Physical Exam Vitals: Vital Signs Temp Pulse Pulse Resp BP BP Pulse Ox 06/30/19 16:00 95 18 129/74 96 06/30/19 15:36 98.0 F 101 H 21 129/74 06/30/19 15:16 88 18 138/70 98 06/30/19 13:43 89 18 141/71 95 06/30/19 10:27 98.0 F 99 18 139/76 99 Intake and Output 06/30/19 06/30/19 06/30/19 06:59 14:59 22:59 Other: Weight 67.132 kg 67.9 kg PHYSICAL EXAM: VITAL SIGNS: As above GENERAL: Slightly pale ,Sitting up in bed, no acute distress HEENT: Conjunctivae normal. eyes normal. Oral mucosa dry NECK: No JVD. No thyroid enlargement. No LNs CARDIOVASCULAR: S1, S2 regular. Systolic murmur RESPIRATION: Breath sounds diminished in the bases. No rhonchi or crackles. No bronchial breathing. ABDOMEN: Soft, nontender . No guarding. no masses palpable. No ascites, No hepatosplenomegaly.Bowel sounds heard. LEGS: No edema. no swelling PSYCHIATRY: Alert and oriented X3, mood and affect normal. NERVOUS SYSTEM: Cranial N 2-12 grossly normal. Moves all 4 limbs. No focal deficits. Strength and sensation grossly intact.. Skin: no rash Lymphatic system. No LN neck axilla Results CBC & Chem 7: 07/01/19 04:25 07/01/19 04:25 Labs: Abnormal Lab Results - Last 24 Hours (Table) 06/30/19 06/30/19 06/30/19 Range/Units 11:10 11:10 11:10 RBC 3.46 L (4.30-5.90) m/uL Hgb 10.3 L (13.0-17.5) gm/dL Hct 32.4 L (39.0-53.0) % Lymphocytes # 0.7 L (1.0-4.8) k/uL PT 53.2 H (9.0-12.0) sec INR 5.3 H* (<1.2) APTT 43.2 H (22.0-30.0) sec Potassium (3.5-5.1) mmol/L BUN (9-20) mg/dL Glucose (74-99) mg/dL POC Glucose (mg/dL) (75-99) mg/dL Urine Protein Trace H (Negative) Urine Blood Trace H (Negative) Ur Leukocyte Esterase Large H (Negative) Urine WBC 26 H (0-5) /hpf Ur Squamous Epith Cells 6 H (0-4) /hpf Urine Bacteria Moderate H (None) /hpf Hyaline Casts 7 H (0-2) /lpf Urine Mucus Rare H (None) /hpf 06/30/19 06/30/19 Range/Units 11:10 16:37 RBC (4.30-5.90) m/uL Hgb (13.0-17.5) gm/dL Hct (39.0-53.0) % Lymphocytes # (1.0-4.8) k/uL PT (9.0-12.0) sec INR (<1.2) APTT (22.0-30.0) sec Potassium 3.3 L (3.5-5.1) mmol/L BUN 26 H (9-20) mg/dL Glucose 122 H (74-99) mg/dL POC Glucose (mg/dL) 113 H (75-99) mg/dL Urine Protein (Negative) Urine Blood (Negative) Ur Leukocyte Esterase (Negative) Urine WBC (0-5) /hpf Ur Squamous Epith Cells (0-4) /hpf Urine Bacteria (None) /hpf Hyaline Casts (0-2) /lpf Urine Mucus (None) /hpf Microbiology - Last 24 Hours (Table) 06/30/19 11:10 Urine Culture - Preliminary Urine,Voided Thrombosis Risk Factor Assmnt - Choose All That Apply Each Risk Factor Represents 3 Points: Age 75 years or older Thrombosis Risk Factor Assessment Total Risk Factor Score: 3 Thrombosis Risk Factor Assessment Level: Moderate Risk Assessment and Plan Assessment: Acute GI bleed, melena stools, rule out lower GI bleed Supratherapeutic INR, 5.3 on admission Dehydration secondary to diarrhea Alcohol use, Daily alcohol consumption of 2-3 glasses of wine Chronic renal failure, stage III Mitral valve replacement, prosthetic valve on Coumadin Hypokalemia Possible acute UTI, asymptomatic Hyperlipidemia, history of pneumonia, vascular disease with history of stented lower abdominal aortic aneurysm History of nicotine dependence COPD, stable Ongoing daily wine use History of pneumonia, coronavirus not detected Plan: Continue on current medication regime ,monitoring and symptomatic treatment .Anticoagulation/ Coumadin on hold .PPI initiated, repeat CBC tonight, GI consulted. Potential endoscopy discussed .GI prophylaxis with teds ho se/pneumatic compression. Gentle IV fluid hydration. Potassium replacement protocol ordered. Daily PT INR. Clear liquid diet. Empiric Rocephin for potential UTI .Close monitoring of CBC, electrolytes, renal function with repeat labs ordered for a.m. Home meds have been reviewed and resumed accordingly. The impression and plan of care has been dictated as directed. : I performed a history and examination of this patient, discussed the same with the dictator. I agree with the dictator's note ,documented as a scribe. Any additional findings or plans will be noted.
[2019-07-01] MEDS: BISOPROLOL 5 MG TAB PO SCH (12:16)
--- NOTE | 2019-07-01 15:18 | P.PN ---
Subjective Progress Note Date: 07/01/19 This is a 79-year-old gentleman with history of COPD, hyperlipidemia, pneumonia, vascular disorder, abdominal aortic aneurysm with stent placement, Lin lozano, mitral valve replacement-prosthetic on Coumadin, anxiety, former nicotine dependence, daily wine intake, presented to the ER with complaints of decreased urination ,fluctuating constipation and diarrhea, further developed rectal bleeding,loose black stools since yesterday accompanied by dyspnea. Denies nausea, vomiting. Denies abdominal pain. Denies cough , fever or chills. Denies chest pain, palpitations.INR on admission 5.3. KUB reported no obstructive bowel gas pattern, no evidence of free intraperitoneal air free, small amount of air through the left side of the colon and rectum, moderate stool in the right side of the abdomen. Tested negative for Coronavirus. Stool heme positive. EKG, troponin requested. Afebrile, WBC within normal limits. Hemoglobin 10.3, platelets 214 ,INR 5.3. Sodium 139, potassium 3.3, BUN 26, c reatinine 1.21(appears at baseline), LFTs within normal limits, blood sugars controlled. Magnesium 2. UA reporting moderate bacteria, high WBCs and large leukocytes with negative nitrates.Rocephin initiated in the ER. Received vitamin K in the ER. 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 Denies nausea or vomiting. Denies abdominal pain. Coumadin remains on hold. INR down to 3.4, hemoglobin 8.7. Denies lightheadedness, dizziness or focal deficits. Denies chest pain, palpitations. Evaluated by GI with EGD recommended. Earlier patient had declined EGD but now willing to proceed. Objective - Vital Signs Vital signs: Vital Signs Temp 98.7 F 07/01/19 08:00 Pulse 70 07/01/19 09:00 Resp 16 07/01/19 08:00 BP 117/58 07/01/19 08:00 Pulse Ox 99 07/01/19 08:00 Intake & Output 06/30/19 07/01/19 07/01/19 18:59 06:59 18:59 Intake Total 540 Output Total 0 Balance 540 Weight 67.9 kg 68.2 kg Intake: Tube Feeding 540 Output: Urine 0 Other: # Voids 4 # Bowel Movements 0 - Exam PHYSICAL EXAM: VITAL SIGNS: As above GENERAL: Slightly pale ,Sitting up in bed, no acute distress HEENT: Conjunctivae normal. eyes normal. Oral mucosa dry NECK: No JVD. No thyroid enlargement. No LNs CARDIOVASCULAR: S1, S2 regular. Systolic murmur RESPIRATION: Breath sounds diminished in the bases. No rhonchi or crackles. No bronchial breathing. ABDOMEN: Soft, nontender . No guarding. no masses palpable. No ascites, No hepatosplenomegaly.Bowel sounds heard. LEGS: No edema. no swelling PSYCHIATRY: Alert and oriented X3, mood and affect normal. NERVOUS SYSTEM: Cranial N 2-12 grossly normal. Moves all 4 limbs. No focal deficits. Strength and sensation grossly intact.. Skin: no rash Lymphatic system. No LN neck axilla - Labs CBC & Chem 7: 07/01/19 04:25 07/01/19 04:25 Labs: Abnormal Lab Results - Last 24 Hours (Table) 06/30/19 06/30/19 06/30/19 Range/Units 11:10 11:10 11:10 RBC 3.46 L (4.30-5.90) m/uL Hgb 10.3 L (13.0-17.5) gm/dL Hct 32.4 L (39.0-53.0) % Lymphocytes # 0.7 L (1.0-4.8) k/uL PT 53.2 H (9.0-12.0) sec INR 5.3 H* (<1.2) APTT 43.2 H (22.0-30.0) sec Sodium (137-145) mmol/L Potassium (3.5-5.1) mmol/L BUN (9-20) mg/dL Glucose (74-99) mg/dL POC Glucose (mg/dL) (75-99) mg/dL Calcium (8.4-10.2) mg/dL Total Protein (6.3-8.2) g/dL Albumin (3.5-5.0) g/dL Urine Protein Trace H (Negative) Urine Blood Trace H (Negative) Ur Leukocyte Esterase Large H (Negative) Urine WBC 26 H (0-5) /hpf Ur Squamous Epith Cells 6 H (0-4) /hpf Urine Bacteria Moderate H (None) /hpf Hyaline Casts 7 H (0-2) /lpf Urine Mucus Rare H (None) /hpf 06/30/19 06/30/19 06/30/19 Range/Units 11:10 16:37 21:01 RBC 3.11 L (4.30-5.90) m/uL Hgb 9.3 L (13.0-17.5) gm/dL Hct 29.6 L (39.0-53.0) % Lymphocytes # (1.0-4.8) k/uL PT (9.0-12.0) sec INR (<1.2) APTT (22.0-30.0) sec Sodium (137-145) mmol/L Potassium 3.3 L (3.5-5.1) mmol/L BUN 26 H (9-20) mg/dL Glucose 122 H (74-99) mg/dL POC Glucose (mg/dL) 113 H (75-99) mg/dL Calcium (8.4-10.2) mg/dL Total Protein (6.3-8.2) g/dL Albumin (3.5-5.0) g/dL Urine Protein (Negative) Urine Blood (Negative) Ur Leukocyte Esterase (Negative) Urine WBC (0-5) /hpf Ur Squamous Epith Cells (0-4) /hpf Urine Bacteria (None) /hpf Hyaline Casts (0-2) /lpf Urine Mucus (None) /hpf 07/01/19 07/01/19 07/01/19 Range/Units 04:25 04:25 04:25 RBC 2.79 L (4.30-5.90) m/uL Hgb 8.7 L (13.0-17.5) gm/dL Hct 26.3 L (39.0-53.0) % Lymphocytes # (1.0-4.8) k/uL PT 33.3 H (9.0-12.0) sec INR 3.4 H (<1.2) APTT (22.0-30.0) sec Sodium 136 L (137-145) mmol/L Potassium (3.5-5.1) mmol/L BUN 22 H (9-20) mg/dL Glucose (74-99) mg/dL POC Glucose (mg/dL) (75-99) mg/dL Calcium 8.3 L (8.4-10.2) mg/dL Total Protein 5.4 L (6.3-8.2) g/dL Albumin 3.1 L (3.5-5.0) g/dL Urine Protein (Negative) Urine Blood (Negative) Ur Leukocyte Esterase (Negative) Urine WBC (0-5) /hpf Ur Squamous Epith Cells (0-4) /hpf Urine Bacteria (None) /hpf Hyaline Casts (0-2) /lpf Urine Mucus (None) /hpf Microbiology - Last 24 Hours (Table) 06/30/19 11:10 Urine Culture - Preliminary Urine,Voided Assessment and Plan Assessment: Acute GI bleed, melena stools, rule out upper GI bleed Supratherapeutic INR, 5.3 on admission Dehydration secondary to diarrhea Alcohol use, Daily alcohol consumption of 2-3 glasses of wine Chronic renal failure, stage III Mitral valve replacement, prosthetic valve on Coumadin Hypokalemia Possible acute UTI, asymptomatic Hyperlipidemia, history of pneumonia, vascular disease with history of stented lower abdominal aortic aneurysm History of nicotine dependence COPD, stable Ongoing daily wine use History of pneumonia, coronavirus not detected Plan: Continue on current medication regime ,monitoring and symptomatic treatment .EKG pending, troponin pending ( add On),Continue on PPI,gentle IV fluid hydration, empiric Rocephin. holding Coumadin. GI prophylaxis with teds hose/pneumatic compression. Close monitoring of CBC, electrolytes, renal function, PT/INR with repeat labs ordered for a.m. patient is now agreeable to proceed with EGD tomorrow-discussed with TAMMY Camilo, who will notify GI/scheduling with [facility] at [place]. The impression and plan of care has been dictated as directed. : I performed a history and examination of this patient, discussed the same with the dictator. I agree with the dictator's note ,documented as a scribe. Any additional findings or plans will be noted.
[2019-07-01] MEDS: ATORVASTATIN 10 MG TAB PO SCH (20:57)
[2019-07-01] MEDS: LORazepam 1 MG TAB PO PRN (21:06)
--- NOTE | 2019-07-01 22:15 | CONS ---
CONSULTATION DATE OF DICTATION: 07/01/2019 REASON FOR CONSULTATION: Acute GI bleed. HISTORY OF PRESENT ILLNESS: The patient is a 79-year-old pleasant white male who came into the emergency room complaining of black stool that started for the last 2 days' duration. He had about 2 bowel movements yesterday and 2 bowel movements today which were black and tarry in consistency. He has a history of atrial fibrillation as well as mitral valve replacement and has been on Coumadin for several years. INR at the time of admission to the hospital was 5.4. In the ER he was given 5 mg of vitamin K, and this morning INR is 3.4. This morning he was seen in the intensive care unit. He was looking good, on a clear liquid diet that he was tolerating well. He denied any abdominal pain. He reports no recent NSAID use. No history of peptic ulcer disease in the past. Since being in the hospital he has been hemodynamically stable. Stool Hemoccult was noted to be positive. Hemoglobin was 10.3 g/dL and INR was 5.3 g/dL. PAST MEDICAL HISTORY: His past medical history is significant for COPD, hyperlipidemia, hypertension, atrial fibrillation, history of mitral valve replacement. PAST SURGICAL HISTORY: Mitral valve replacement and cholecystectomy. MEDICATIONS AT HOME: Aspirin, Lipitor, Symbicort, Ativan, Flomax, Spiriva, bisoprolol, Coumadin, Lasix. ALLERGIES: ALBUTEROL. SOCIAL HISTORY: No smoking. No alcohol use. FAMILY HISTORY: Mother had coronary artery disease. REVIEW OF SYSTEMS: CARDIOPULMONARY: No chest pain or shortness of breath. GENITOURINARY: No dysuria or hematuria. MUSCULOSKELETAL: Some back pain. NEUROLOGY: Unremarkable. PSYCHIATRY: Unremarkable. ENT/VISION: Unremarkable. CONSTITUTIONAL: No recent weight loss. No fever, chills, night sweats. PHYSICAL EXAMINATION: Vital signs are stable. Blood pressure is 132/86, pulse rate 80 per minute and afebrile. HEENT examination unremarkable. Conjunctivae pink. Sclerae anicteric. Oral cavity no lesions. NECK: No JVD or lymph node enlargement. CHEST: Clear to auscultation. HEART: Regular rate and rhythm. ABDOMEN: Soft. Bowel sounds are positive. No organomegaly. EXTREMITIES: No pedal edema. SKIN: No rashes. NEUROLOGIC: Alert and oriented x3. No focal deficits. LABS: Labs done at the time of admission to the hospital: WBC 6.3, hemoglobin 10.3, platelets 214. Today hemoglobin is 8.7. INR was 5.3. This morning INR is 3.4. BUN was 26, creatinine 1.21. Stool occult blood was positive. COVID-19 was negative. IMPRESSION: 1. This is a patient who presented to the hospital with black tarry stools for the last 2 days' duration. Most likely we are dealing with an upper GI source of bleeding. He has a history of mitral valve replacement, on Coumadin, which has been on hold since yesterday. INR was supratherapeutic at 5.3 and hence he received 5 mg of vitamin K in the ER. Repeat INR was 3.4. Clinically and hemodynamically he remained stable and he did not have any further bleeding since being in the intensive care unit. Likely we are dealing with an upper GI source of bleeding. Rule out peptic ulcer disease. 2. Mitral valve replacement, on Coumadin, currently on hold. 3. Remote history of alcohol use. 4. Chronic kidney disease. 5. Hyperlipidemia. 6. Hypertension. RECOMMENDATIONS: 1. Continue with Protonix 40 mg twice daily. 2. Continue to hold Coumadin. 3. Monitor CBC as well as PT/INR on a daily basis. 4. Discussed with the patient about proceeding with an upper endoscopy tomorrow if the INR is less than 1.5 and he is agreeable to it. Risks, benefits and complications were also discussed. Thank you for this consultation. ROSHNI / CHE[place]NE: [id number] /
[2019-07-02] MEDS: SODIUM CHLORIDE 0.9% 1,000 ML IV SCH ×2 (02:37→08:10)
[2019-07-02 07:25] LABS: Basophils % (A) 1 %; Eosinophils # (A) 0.3 k/uL (0-0.7); Eosinophils % (A) 8 %; HCT 27.5 % (39.0-53.0); HGB 8.8 gm/dL (13.0-17.5); Hypochromasia Moderate; Lymphocytes # (A) 0.8 k/uL (1.0-4.8); Lymphocytes % (A) 19 %; MCH 31.3 pg (25.0-35.0); MCV 97.7 fL (80.0-100.0); Mean Platelet Volume 7.4; Monocytes # (A) 0.3 k/uL (0-1.0); Monocytes % (A) 8 %; Neutrophils # (A) 2.5 k/uL (1.3-7.7); Neutrophils % (A) 61 %; Platelet Count 194 k/uL (150-450); RBC 2.82 m/uL (4.30-5.90); RDW 13.5 % (11.5-15.5); WBC 4.1 k/uL (3.8-10.6)
[2019-07-02 07:33] LABS: Calcium 8.4 mg/dL (8.4-10.2); Potassium 4.1 mmol/L (3.5-5.1)
[2019-07-02] MEDS: TIOTROPIUM 18 MCG/PUFF INHALER INHALATION SCH (07:40)
[2019-07-02 07:45] LABS: INR 1.8 (<1.2); Prothrombin Time 17.2 sec (9.0-12.0)
[2019-07-02] MEDS: SYMBICORT 80-4.5 MCG INHALER INHALATION SCH ×2 (07:47→19:58)
[2019-07-02] MEDS: PANTOPRAZOLE 40 MG/10 ML VIAL IVP SCH ×2 (08:03→19:59)
[2019-07-02] MEDS: BISOPROLOL 5 MG TAB PO SCH (08:04)
[2019-07-02] MEDS ORDERED: ePHEDrine SULFATE/0.9% NACL/PF 50 MG/5 ML SYRINGE IV ONE (11:24)
[2019-07-02] MEDS ORDERED: PROPOFOL 10 MG/ML 20 ML VIAL IV ONE (11:24)
[2019-07-02] MEDS ORDERED: IV FLUID CONTINUATION 1,000 ML IV ONE (11:25)
--- NOTE | 2019-07-02 11:41 | P.PCN ---
Date of Procedure: 07/02/19 Procedure(s) Performed: BRIEF HISTORY: Patient is a 79-year-old, pleasant, male admitted hospital with black tarry stools of 2 days' duration. Has history of mitral valve replacement and has been on Coumadin for several years. HIDA was 5.4 and was given vitamin K and today INR is 1.8. Hemoglobin is 8.5 g/dL He scheduled for an upper endoscopy to evaluate reasons GI bleed. PROCEDURE PERFORMED: Esophagogastroduodenoscopy with cautery. PREOPERATIVE DIAGNOSIS: Acute GI bleed/melena. IV sedation per anesthesia. PROCEDURE: After informed consent was obtained, the patient was brought into the endoscopy unit. IV sedation was administered by Anesthesia under continuous monitoring. Initially the Olympus GIF-140 video endoscope was inserted into the mouth. Esophagus intubated without any difficulty. It was gradually advanced into the stomach and duodenum and carefully examined. The bulb and the second part of the duodenum appeared normal. The scope at this time was withdrawn to the stomach, adequately insufflated with air, and upon careful examination, mucosa of the antrum, had mild diffuse gastritis and there was specks of old blood noted. Irrigation was performed. In the mid body of the stomach there were 2 small areas measuring 2 mm in size and appearance of angiectasia with mild oozing which were cauterized using a gold probe. Rest of the body, cardia and the fundus appeared normal. The scope was then withdrawn into the esophagus. The GE junction was located at 39 cm from the incisors. The esophagus appeared normal. There were no erosions or ulcerations seen and the patient tolerated the procedure well. IMPRESSION: 1. 2 small gastric angiectasia with small amount of oozing in the mid body of stomach status post cautery. 2. Mild diffuse antral gastritis with specks of old blood noted 3. No evidence of peptic ulcer disease. RECOMMENDATIONS: The findings of this examination were discussed with the patient. His diet will be advanced as tolerated. Continue Protonix 40 mg twice daily. Repeat CBC in the morning. If hgb is stable he can be discharged home and Coumadin can be resumed tomorrow..
[2019-07-02] MEDS: TAMSULOSIN 0.4 MG CAP.ER.24H PO SCH (12:04)
--- NOTE | 2019-07-02 13:07 | P.PN ---
Subjective Progress Note Date: 07/02/19 This is a 79-year-old gentleman with history of COPD, hyperlipidemia, pneumonia, vascular disorder, abdominal aortic aneurysm with stent placement, Lin lozano, mitral valve replacement-prosthetic on Coumadin, anxiety, former nicotine dependence, daily wine intake, presented to the ER with complaints of decreased urination ,fluctuating constipation and diarrhea, further developed rectal bleeding,loose black stools since yesterday accompanied by dyspnea. Denies nausea, vomiting. Denies abdominal pain. Denies cough , fever or chills. Denies chest pain, palpitations.INR on admission 5.3. KUB reported no obstructive bowel gas pattern, no evidence of free intraperitoneal air free, small amount of air through the left side of the colon and rectum, moderate stool in the right side of the abdomen. Tested negative for Coronavirus. Stool heme positive. EKG, troponin requested. Afebrile, WBC within normal limits. Hemoglobin 10.3, platelets 214 ,INR 5.3. Sodium 139, potassium 3.3, BUN 26, c reatinine 1.21(appears at baseline), LFTs within normal limits, blood sugars controlled. Magnesium 2. UA reporting moderate bacteria, high WBCs and large leukocytes with negative nitrates.Rocephin initiated in the ER. Received vitamin K in the ER. 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 Denies nausea or vomiting. Denies abdominal pain. Coumadin remains on hold. INR down to 3.4, hemoglobin 8.7. Denies lightheadedness, dizziness or focal deficits. Denies chest pain, palpitations. Evaluated by GI with EGD recommended. Earlier patient had declined EGD but now willing to proceed. 07/02/2019 no further tarry stools. Hemoglobin 8.8, INR 1.8. Underwent EGD today, tolerated procedure well. EGD reports 2 small gastric angietasia with small mild oozing in the mid body of stomach status post cautery, mild diffuse antral gastritis with specks of old blood noted with no evidence of peptic ulcer disease. Denies abdominal pain. Denies chest pain, palpitations or shortness of breath. Vital signs stable. Denies lightheadedness, dizziness or focal deficits. Objective - Vital Signs Vital signs: Vital Signs Temp 97.9 F 07/02/19 04:15 Pulse 63 07/02/19 04:15 Resp 20 07/02/19 04:15 BP 100/58 07/02/19 04:15 Pulse Ox 100 07/02/19 04:15 Intake & Output 07/01/19 07/02/19 07/02/19 18:59 06:59 18:59 Intake Total 240 300 50 Output Total 240 Balance 0 300 50 Intake: IV 50 Oral 240 300 Output: Urine 240 Other: Voiding Method Toilet # Voids 4 1 - Exam PHYSICAL EXAM: VITAL SIGNS: As above GENERAL: Sitting up in bed, no acute distress HEENT: Conjunctivae normal. eyes normal. NECK: No JVD. No thyroid enlargement. No LNs CARDIOVASCULAR: S1, S2 regular. Systolic murmur RESPIRATION: Breath sounds diminished in the bases. No rhonchi or crackles. No wheezing ABDOMEN: Soft, nontender . No guarding. no masses palpable.positive Bowel sounds. LEGS: No edema. no swelling PSYCHIATRY: Alert and oriented X3, mood and affect normal. NERVOUS SYSTEM: Cranial N 2-12 grossly normal. Moves all 4 limbs. No focal deficits. Strength and sensation grossly intact.. Skin: no rash - Labs CBC & Chem 7: 07/02/19 06:12 07/02/19 06:12 Labs: Abnormal Lab Results - Last 24 Hours (Table) 07/02/19 07/02/19 07/02/19 Range/Units 06:12 06:12 06:12 RBC 2.82 L (4.30-5.90) m/uL Hgb 8.8 L (13.0-17.5) gm/dL Hct 27.5 L (39.0-53.0) % Lymphocytes # 0.8 L (1.0-4.8) k/uL PT 17.2 H (9.0-12.0) sec INR 1.8 H (<1.2) Sodium 136 L (137-145) mmol/L Microbiology - Last 24 Hours (Table) 06/30/19 11:10 Urine Culture - Preliminary Urine,Voided Group D Enterococcus Gram Neg Bacilli Assessment and Plan Assessment: Acute GI bleed, melena stools, status post ECT reporting 2 small gastric angietasia with small mild oozing in the mid body of stomach status post cautery, mild diffuse antral gastritis with specks of old blood noted with no evidence of peptic ulcer disease. Supratherapeutic INR, 5.3 on admission Dehydration secondary to diarrhea Alcohol use, Daily alcohol consumption of 2-3 glasses of wine Chronic renal failure, stage III Mitral valve replacement, prosthetic valve on Coumadin Hypokalemia Possible acute UTI, asymptomatic Hyperlipidemia, history of pneumonia, vascular disease with history of stented lower abdominal aortic aneurysm History of nicotine dependence COPD, stable Ongoing daily wine use History of pneumonia, coronavirus not detected Plan: Continue on current medication regime ,monitoring and symptomatic treatment .diet advanced as per GI, maintain PPI twice a day .continue monitoring overnight with repeat CBC in a.m., resume Coumadin tomorrow. Discharge planning in progress for tomorrow pending stable CBC. The impression and plan of care has been dictated as directed. : I performed a history and examination of this patient, discussed the same with the dictator. I agree with the dictator's note ,documented as a scribe. Any additional findings or plans will be noted.
--- NOTE | 2019-07-02 16:27 | CDI ---
Documentation Clarification Form Date: 07/02/2019 04:21:31 PM From: Mireya North RN, CCDS Admit Date: 06/30/2019 12:45:00 PM Patient Name: Ankur Pereira Visit Number: [id number] ATTENTION: The Clinical Documentation Specialists (CDI) and [facility] Coding Staff appreciate your assistance in clarifying documentation. Please respond to the clarification below the line at the bottom and electronically sign. The CDI & [facility] Coding staff will review the response and follow-up if needed. Please note: Queries are made part of the Legal Health Record. If you have any questions, please contact the author of this message via ITS. Dr. Sae Rodriguez Please render your opinion on the clinical significance of the patients declining hemoglobin/hematocrit levels. History/Risk Factors: Supratherapeutic INT, ETOH USE, CRF stage 3 Clinical indicators: Hgb: 10.3/ 9.3/8.7/8.3 Hct: 32.4/29.6/26.3/27.5 07/01 EGD: small gastric angiectasia with small amount of oozing in the mid body of stomach status post cautery. 2. Mild diffuse antral gastritis with specks of old blood noted 3. No evidence of peptic ulcer disease. Treatment: Cauterization of angiectasia Lab Monitoring AM Daily In order to capture the severity of condition, please clarify if the labs/clinical indicators signify: Acute blood loss anemia Acute on chronic blood loss anemia Iron deficiency anemia Drug induced anemia Nutritional anemia Anemia of chronic kidney disease Unable to determine Other, please specify (Last Form Revision: May 2019) MTDD
[2019-07-02] MEDS: ATORVASTATIN 10 MG TAB PO SCH (19:59)
[2019-07-02] MEDS: LORazepam 1 MG TAB PO PRN (20:03)
[2019-07-03 05:47] VITALS: BP 100/59; RESP 18; TEMP 98.3
[2019-07-03] MEDS: SODIUM CHLORIDE 0.9% 1,000 ML IV SCH (06:01)
[2019-07-03] MEDS: SYMBICORT 80-4.5 MCG INHALER INHALATION SCH (07:23)
[2019-07-03] MEDS: TIOTROPIUM 18 MCG/PUFF INHALER INHALATION SCH (07:23)
[2019-07-03 07:35] LABS: INR 1.4 (<1.2); Prothrombin Time 14.3 sec (9.0-12.0)
[2019-07-03 07:38] LABS: Basophils % (A) 0 %; Eosinophils # (A) 0.2 k/uL (0-0.7); Eosinophils % (A) 6 %; HCT 26.2 % (39.0-53.0); HGB 8.2 gm/dL (13.0-17.5); Hypochromasia Marked; Lymphocytes # (A) 0.6 k/uL (1.0-4.8); Lymphocytes % (A) 16 %; MCH 30.3 pg (25.0-35.0); MCHC 31.3 g/dL (31.0-37.0); MCV 96.8 fL (80.0-100.0); Mean Platelet Volume 8.4; Monocytes # (A) 0.2 k/uL (0-1.0); Monocytes % (A) 6 %; Neutrophils # (A) 2.7 k/uL (1.3-7.7); Neutrophils % (A) 70 %; Platelet Count 173 k/uL (150-450); RDW 13.4 % (11.5-15.5); WBC 3.8 k/uL (3.8-10.6)
[2019-07-03 07:44] LABS: Potassium 4.1 mmol/L (3.5-5.1)
[2019-07-03 07:45] LABS: Calcium 7.9 mg/dL (8.4-10.2)
[2019-07-03] MEDS: PANTOPRAZOLE 40 MG/10 ML VIAL IVP SCH (07:57)
[2019-07-03] MEDS: TAMSULOSIN 0.4 MG CAP.ER.24H PO SCH (07:58)
[2019-07-03] MEDS: BISOPROLOL 5 MG TAB PO SCH (07:58)
[2019-07-03] MEDS ORDERED: FUROSEMIDE 80 MG TAB PO SCH (09:00)
[2019-07-03 10:10] VITALS: PULSE 101
--- NOTE | 2019-07-03 11:54 | P.DS ---
Providers Date of admission: 06/30/19 12:45 Expected date of discharge: 07/03/19 Attending physician: Sae Rodriguez Consults: 06/30/19 12:45 Consult Physician Routine Consulting Provider: Panda Mendoza Consult Reason/Comments: Melena Do you want consulting provider notified?: Yes Primary care physician: [facility] Course: Final Diagnoses: Acute GI bleed, melena stools, status post ECT reporting 2 small gastric angietasia with small mild oozing in the mid body of stomach status post cautery, mild diffuse antral gastritis with specks of old blood noted with no evidence of peptic ulcer disease. Supratherapeutic INR, 5.3 on admission, status post vitamin K Dehydration secondary to diarrhea Alcohol use, Daily alcohol consumption of 2-3 glasses of wine Chronic renal failure, stage III Mitral valve replacement, prosthetic valve on Coumadin Hypokalemia Possible acute UTI, asymptomatic Hyperlipidemia, history of pneumonia, vascular disease with history of stented lower abdominal aortic aneurysm History of nicotine dependence COPD, stable Ongoing daily wine use History of pneumonia, coronavirus not detected Hospital course:This is a 79-year-old gentleman with history of COPD, hyperlipidemia, pneumonia, vascular disorder, abdominal aortic aneurysm with stent placement, shingles, A. fib, mitral valve replacement-prosthetic on Coumadin, anxiety, former nicotine dependence, daily wine intake, presented to the ER with complaints of decreased urination ,fluctuating constipation and diarrhea, further developed rectal bleeding,loose black stools since yesterday accompanied by dyspnea. Denies nausea, vomiting. Denies abdominal pain. Denies cough , fever or chills. Denies chest pain, palpitations.INR on admission 5.3. KUB reported no obstructive bowel gas pattern, no evidence of free intraperitoneal air free, small amount of air through the left side of the colon and rectum, moderate stool in the right side of the abdomen. Tested negative for Coronavirus. Stool heme positive. EKG, troponin requested. Afebrile, WBC within normal limits. Hemoglobin 10.3, platelets 214 ,INR 5.3. Sodium 139, potassium 3.3, BUN 26, creatinine 1.21(appears at baseline), LFTs within normal limits, blood sugars controlled. Magnesium 2. UA reporting moderate bacteria, high WBCs and large leukocytes with negative nitrates.Rocephin initiated in the ER. Received vitamin K in the ER. 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 Denies nausea or vomiting. Denies abdominal pain. Coumadin remains on hold. INR down to 3.4, hemoglobin 8.7. Denies lightheadedness, dizziness or focal deficits. Denies chest pain, palpitations. Evaluated by GI with EGD recommended. Earlier patient had declined EGD but now willing to proceed. 07/02/2019 no further tarry stools. Hemoglobin 8.8, INR 1.8. Underwent EGD today, tolerated procedure well. EGD reports 2 small gastric angietasia with small mild oozing in the mid body of stomach status post cautery, mild diffuse antral gastritis with specks of old blood noted with no evidence of peptic ulcer disease. Denies abdominal pain. Denies chest pain, palpitations or shortness of breath. Vital signs stable. Denies lightheadedness, dizziness or focal deficits. Significant clinical improvement. No further bleeding. Hemoglobin 8.2, creatinine 1.28. Cleared by GI for discharge. Patient will be discharged home in a stable condition with guarded prognosis. The impression and plan of care has been dictated as directed. : I performed a history and examination of this patient, discussed the same with the dictator. I agree with the dictator's note ,documented as a scribe. Any additional findings or plans will be noted. Patient Condition at Discharge: Stable Plan - Discharge Summary Discharge Rx Participant: Yes New Discharge Prescriptions: New Pantoprazole Sodium [Protonix] 40 mg PO BID #60 tablet. Aspirin EC [Ecotrin Low Dose] 81 mg PO DAILY #1 tablet. No Action LORazepam [Ativan] 1 mg PO TID PRN PRN Reason: Anxiety Atorvastatin [Lipitor] 10 mg PO HS Aspirin 325 mg PO DAILY Tamsulosin [Flomax] 0.4 mg PO DAILY Budesonide/Formoterol Fumarate [Symbicort 80-4.5 Mcg Inhaler] 2 puff INHALATION RT-BID Tiotropium 18 Mcg/Puff [Spiriva] 1 puff INHALATION QAM Warfarin Sodium [Coumadin] 2 mg PO SUMOTUWEFR Acetylcysteine [Nac] 600 mg PO BID Warfarin Sodium [Coumadin] 5 mg PO THSA Bisoprolol Fumarate 5 mg PO DAILY 12 Days #12 tablet Furosemide [Lasix] 60 mg PO W/SUPPER Furosemide [Lasix] 80 mg PO DAILY Discharge Medication List Aspirin 325 mg PO DAILY 11/21/17 [History] Atorvastatin [Lipitor] 10 mg PO HS 11/21/17 [History] Budesonide/Formoterol Fumarate [Symbicort 80-4.5 Mcg Inhaler] 2 puff INHALATION RT-BID 11/21/17 [History] LORazepam [Ativan] 1 mg PO TID PRN 11/21/17 [History] Tamsulosin [Flomax] 0.4 mg PO DAILY 11/21/17 [History] Tiotropium 18 Mcg/Puff [Spiriva] 1 puff INHALATION QAM 11/21/17 [History] Acetylcysteine [Nac] 600 mg PO BID 10/07/18 [History] Bisoprolol Fumarate 5 mg PO DAILY 12 Days #12 tablet 10/07/18 [Rx] Warfarin Sodium [Coumadin] 2 mg PO SUMOTUWEFR 10/07/18 [History] Warfarin Sodium [Coumadin] 5 mg PO THSA 10/07/18 [History] Furosemide [Lasix] 60 mg PO W/SUPPER 06/30/19 [History] Furosemide [Lasix] 80 mg PO DAILY 06/30/19 [History] Aspirin EC [Ecotrin Low Dose] 81 mg PO DAILY #1 tablet. 07/03/19 [Rx] Pantoprazole Sodium [Protonix] 40 mg PO BID #60 tablet. 07/03/19 [Rx] Follow up Appointment(s)/Referral(s): Silvino Kramer MD [STAFF PHYSICIAN] - 1 Week (as prev. scheduled) Tan Bey Jr, DO [Primary Care Provider] - 3 Days Josseline Pendleton MD [STAFF PHYSICIAN] - 2 Weeks Ambulatory/Diagnostic Orders: Complete Blood Count w/diff [LAB.AMB] Time Frame: 07/06/19, Location: None Selected
--- NOTE | 2019-07-03 15:54 | PN ---
PROGRESS NOTE DATE OF SERVICE: 07/03/2019 Patient is a 79-year-old pleasant white male admitted to the hospital with acute GI bleed. He had black tarry stools. He was on Coumadin which coagulopathy was reversed with vitamin K and patient underwent an upper endoscopy yesterday that showed diffuse gastritis and angioectasia in the stomach with a small amount of oozing that was cauterized. He is doing well. He had no further bleeding. The Coumadin has been resumed today. He denies any abdominal pain. No nausea, vomiting. PHYSICAL EXAMINATION: Appears comfortable, in no apparent distress. Vital signs are stable, blood pressure 100/59, pulse rate 82 per minute and afebrile. HEENT: Examination unremarkable. Conjunctivae are pink. Sclerae nonicteric. Oral cavity no lesions. NECK: No JVD or lymph node enlargement. CHEST: Clear to auscultation. HEART: Regular rate and rhythm. ABDOMEN: Soft. Bowel sounds are positive. No organomegaly. EXTREMITIES: No pedal edema. SKIN: No rashes. NEUROLOGIC: Alert and oriented x3. No focal deficits. LABS: From today WBC 3.8, hemoglobin 8.2, platelets normal. Basic metabolic panel is within normal limits. INR is 1.4. IMPRESSION: 1. Acute upper GI bleed, status post EGD yesterday that showed small angioectasia in the stomach that was cauterized and acute gastritis. Presently on Protonix 40 mg daily, doing well. No further bleeding. 2. Mitral valve replacement on Coumadin which has been on hold. INR is 1.4. RECOMMENDATION: 1. Advance diet as tolerated. 2. Resume Coumadin today. 3. Continue Protonix 40 mg daily. 4. He can be discharged home with outpatient followup in 2-3 weeks. MMODL / IJN: [id number] /
[2019-07-03] MEDS ORDERED: FUROSEMIDE 20 MG TAB PO SCH (17:30)
[2019-07-03] MEDS ORDERED: PANTOPRAZOLE 40 MG TABLET PO SCH (21:00)
--- NOTE | 2019-07-06 11:05 | CDI ---
Documentation Clarification Form Date: 07/06/19 From: Loraine Fu Phone: If you have a question about this query, please contact Suri Landrum, Laundry Worker at [phone] between 8am and 5pm. Admit Date: 06/30/19 Discharge Date: 07/03/19 Patient Name: BLANCA MORFIN Visit Number: [id number] ATTENTION: The Clinical Documentation Specialists (CDI) and [facility] Coding Staff appreciate your assistance in clarifying documentation. Please respond to the clarification below the line at the bottom and electronically sign. The CDI & [facility] Coding staff will review the response and follow-up if needed. Please note: Queries are made part of the Legal Health Record. If you have any questions, please contact the author of this message via ITS. Dear Dr. Sae Rodriguez, Atrial Fibrillation is documented in the H&P - "He is currently on Coumadin with history of atrial fibrillaition as well as mitral valve replacement." History/Risk Factors: GI hemorrhage Clinical Indicators: INR 5.3- anticoagulation/Coumadin on hold. EKG/telemetry: none available Treatment: Hold Coumadin In your professional opinion, can you please clarify the type of Atrial Fibrillation, if known? Chronic Permanent Paroxysmal Persistent, longstanding Persistent, other Persistent, permanent Other, please specify Unable to determine MTDD
--- NOTE | 2019-07-06 11:54 | CDI ---
Documentation Clarification Form Date: 07/06/19 From: Loraine Fu Phone: If you have a question about this query, please contact Suri Landrum, Relay Operator at [phone] between 8am and 5pm. Admit Date: 07/01/19 Discharge Date: 08/03/19 Patient Name: OG LARA Visit Number: [id number] ATTENTION: The Clinical Documentation Specialists (CDI) and [facility] Coding Staff appreciate your assistance in clarifying documentation. Please respond to the clarification below the line at the bottom and electronically sign. The CDI & [facility] Coding staff will review the response and follow-up if needed. Please note: Queries are made part of the Legal Health Record. If you have any questions, please contact the author of this message via ITS. Dear Dr. Sae Rodirguez, Right heart strain is documented in the Dr Castañeda's consult and 07/02 progress note [address] Chest CT. Please specify the acuity of right heart strain with terms such as: Acute Chronic Other (please specify in the medical record) Clinically unable to further specify Unknown MTDD
--- NOTE | 2019-07-14 08:45 | CDI ---
Documentation Clarification Form 2nd request Date: 07/02/2019 04:21:00 PM From Miryea North RN, CCDS Admit Date: 06/30/2019 12:45:00 PM Patient Name: Ankur Pereira Visit Number: [id number] Discharge Date: 07/03/2019 01:36:00 PM ATTENTION: The Clinical Documentation Specialists (CDI) and [facility] Coding Staff appreciate your assistance in clarifying documentation. Please respond to the clarification below the line at the bottom and electronically sign. The CDI & [facility] Coding staff will review the response and follow-up if needed. Please note: Queries are made part of the Legal Health Record. If you have any questions, please contact the author of this message via ITS. Dr. Sae Rodriguez Please render your opinion on the clinical significance of the patients declining hemoglobin/hematocrit levels. History/Risk Factors: Supratherapeutic INT, ETOH USE, CRF stage 3 Clinical indicators: Hgb: 10.3/ 9.3/8.7/8.3 Hct: 32.4/29.6/26.3/27.5 07/01 EGD: small gastric angiectasia with small amount of oozing in the mid body of stomach status post cautery. 2. Mild diffuse antral gastritis with specks of old blood noted 3. No evidence of peptic ulcer disease. Treatment: Cauterization of angiectasia Lab Monitoring AM Daily In order to capture the severity of condition, please clarify if the labs/clinical indicators signify: Acute blood loss anemia --->Acute on chronic blood loss anemia, poa Iron deficiency anemia Drug induced anemia Nutritional anemia Anemia of chronic kidney disease Unable to determine Other, please specify (Last Form Revision: May 2019) MTDD
== END 2019-07-03 13:36 | disposition home or self-care (01) | DRG 378 ==
LOC: EC 10:18 → 3SCARD 12:45 → 2SICU 14:52 → 5NMEDONC 07-01 11:17
PROVIDERS: ADMIT Family Medicine; ATTEND Family Medicine
PROC: 0W3P8ZZ Control Bleeding in Gastrointestinal Tract, Via Natural or Artificial Opening Endoscopic (ICD-10-PCS; principal; 2019-07-02 11:00)
DX: K31.811 Angiodysplasia of stomach and duodenum with bleeding (principal); D62 Acute posthemorrhagic anemia; Z99.81 Dependence on supplemental oxygen; N18.3 Chronic kidney disease, stage 3 (moderate); E78.5 Hyperlipidemia, unspecified; I12.9 Hypertensive chronic kidney disease with stage 1 through stage 4 chronic kidney disease, or unspecified chronic kidney disease; K29.00 Acute gastritis without bleeding; J44.9 Chronic obstructive pulmonary disease, unspecified; Z20.828 Contact with and (suspected) exposure to other viral communicable diseases; D50.0 Iron deficiency anemia secondary to blood loss (chronic); E86.0 Dehydration; E87.6 Hypokalemia; M19.90 Unspecified osteoarthritis, unspecified site; F41.9 Anxiety disorder, unspecified; M79.7 Fibromyalgia; R82.71 Bacteriuria; K59.00 Constipation, unspecified; R19.7 Diarrhea, unspecified; I83.90 Asymptomatic varicose veins of unspecified lower extremity; Z79.82 Long term (current) use of aspirin; Z79.51 Long term (current) use of inhaled steroids; Z79.01 Long term (current) use of anticoagulants; Z79.899 Other long term (current) drug therapy; Z95.2 Presence of prosthetic heart valve; Z95.828 Presence of other vascular implants and grafts; Z86.79 Personal history of other diseases of the circulatory system; Z87.01 Personal history of pneumonia (recurrent); Z90.49 Acquired absence of other specified parts of digestive tract; Z87.891 Personal history of nicotine dependence; Z86.19 Personal history of other infectious and parasitic diseases; Z87.2 Personal history of diseases of the skin and subcutaneous tissue; Z72.89 Other problems related to lifestyle; Z88.5 Allergy status to narcotic agent; Z91.048 Other nonmedicinal substance allergy status; Z82.49 Family history of ischemic heart disease and other diseases of the circulatory system
CPT/HCPCS: 36415; 43270; 74018; 80048; 80053; 81001; 82272; 83735; 84484; 85025; 85027; 85610; 85730; 87077; 87086; 87186; 87635; 93005; 94640; 96361; 96374; 96375; 99285

== ENCOUNTER → 2019-07-13 | Outpatient (CLI) | payer MEDICARE, BC ==
[2019-07-13 12:00] LABS: Basophils % (A) 1 %; Eosinophils # (A) 0.4 k/uL (0-0.7); Eosinophils % (A) 7 %; HGB 10.3 gm/dL (13.0-17.5); Hypochromasia Marked; Lymphocytes # (A) 0.9 k/uL (1.0-4.8); Lymphocytes % (A) 18 %; MCH 29.2 pg (25.0-35.0); MCHC 30.4 g/dL (31.0-37.0); Mean Platelet Volume 7.4; Monocytes # (A) 0.3 k/uL (0-1.0); Monocytes % (A) 6 %; Neutrophils # (A) 3.2 k/uL (1.3-7.7); Neutrophils % (A) 64 %; Platelet Count 235 k/uL (150-450); RBC 3.54 m/uL (4.30-5.90); RDW 14.1 % (11.5-15.5)
== END | disposition home or self-care (01) ==
LOC: LABWHC1 10:45
PROVIDERS: ATTEND Family Medicine
DX: K92.2 Gastrointestinal hemorrhage, unspecified (principal)
CPT/HCPCS: 36415; 82306; 85025

== ENCOUNTER → 2019-08-19 | Outpatient (CLI) | payer MEDICARE, BC | END | disposition home or self-care (01) | LOC: CPPFTMAIN 11:52 | PROVIDERS: ATTEND Registered Nurse Critical Care Medicine | DX: J43.9 Emphysema, unspecified (principal) | CPT/HCPCS: 94060; 94726; 94729 ==

== ENCOUNTER → 2019-09-29 | Outpatient (CLI) | payer MEDICARE, BC ==
[2019-09-29 10:52] LABS: Allen Test Performed? Yes
[2019-09-29 10:53] LABS: ABG Base Excess 0.2 mmol/L; ABG HCO3 24 mmol/L (21-25); ABG Oxygen Saturation 97.5 % (94-97); ABG PCO2 39 mmHg (35-45); ABG PH 7.41 (7.35-7.45); ABG PO2 101 mmHg (83-108)
--- NOTE | 2019-09-30 09:41 | ECHOF ---
Referral Reason:J43.9 emphysema MEASUREMENTS -------- HEIGHT: 182.9 cm WEIGHT: 68.0 kg BP: RVIDd: 3.9 cm (< 3.3) IVSd: 1.2 cm (0.6 - 1.1) LVIDd: 5.0 cm (3.9 - 5.3) LVPWd: 1.9 cm (0.6 - 1.1) IVSs: 1.3 cm LVIDs: 4.2 cm LVPWs: 1.3 cm LA Diam: 5.7 cm (2.7 - 3.8) LAESV Index (A-L): 55.49 ml/m Ao Diam: 4.3 cm (2.0 - 3.7) AV Cusp: 1.7 cm (1.5 - 2.6) MV EXCURSION: 15.662 mm (> 18.000) MV EF SLOPE: 46 mm/s (70 - 150) MV E Oleg: 1.17 m/s MV DecT: 252 ms MV A Oleg: 0.24 m/s MV E/A Ratio: 4.92 RAP: 5.00 mmHg RVSP: 40.41 mmHg FINDINGS -------- Sinus rhythm. This was a technically good study. The left ventricular size is normal. There is mild concentric left ventricular hypertrophy. Overa ll left ventricular systolic function is mildly impaired with, an EF between 45 - 50 %. The right ventricle is mildly enlarged. The left atrium is markedly dilated. LA is severely dilated >40 ml/m2 Interatrial and interventricular septum intact. There is mild aortic valve sclerosis. Trace to mild aortic regurgitation. There is trace mitral regurgitation. The peak and mean MV gradients are 12.93mmHg 2.99mmHg as woodrow ured by doppler. Mitral ring annulloplasty is in place. Mild tricuspid regurgitation present. There is mild pulmonary hypertension. Trace/mild (physiologic) pulmonic regurgitation. CONCLUSIONS -------- 1. Sinus rhythm. 2. The left ventricular size is normal. 3. There is mild concentric left ventricular hypertrophy. 4. Overall left ventricular systolic function is mildly impaired with, an EF between 45 - 50 %. 5. The right ventricle is mildly enlarged. 6. The left atrium is markedly dilated. 7. LA is severely dilated >40 ml/m2 8. There is mild aortic valve sclerosis. 9. Trace to mild aortic regurgitation. 10. There is trace mitral regurgitation. 11. The peak and mean MV gradients are 12.93mmHg 2.99mmHg as measured by doppler. 12. Mitral ring annulloplasty is in place. 13. Mild tricuspid regurgitation present. 14. There is mild pulmonary hypertension. 15. Trace/mild (physiologic) pulmonic regurgitation. [place]ON [place] ASSISTANT: Belle Sweeney RDCS
== END | disposition home or self-care (01) ==
LOC: CPPFTMAIN 10:19
PROVIDERS: ATTEND Internal Medicine Critical Care Medicine
DX: I08.3 Combined rheumatic disorders of mitral, aortic and tricuspid valves (principal); I27.20 Pulmonary hypertension, unspecified; J43.9 Emphysema, unspecified
CPT/HCPCS: 36600; 82805; 93306; 94618

== ENCOUNTER 2020-04-17 17:32 | Emergency (ER) | payer MEDICARE, BC ==
[2020-04-17 17:43] VITALS: PULSE 82; TEMP 98.5
[2020-04-17] MEDS ORDERED: LIDOCAINE 1%-EPI 1:100,000 20 ML VIAL SQ STA (18:11)
--- NOTE | 2020-04-17 18:23 | ED ---
General Adult HPI - General Source: patient, RN notes reviewed Mode of arrival: wheelchair Limitations: no limitations <Frank Rivas - Last Filed: 04/17/20 18:54> <Berenice Chavarria - Last Filed: 04/18/20 18:41> - General Chief complaint: Wound/Laceration Stated complaint: R Leg Injury Time Seen by Provider: 04/17/20 17:44 - History of Present Illness Initial comments: 80-year-old male with a past medical history of hyperlipidemia, COPD presents to the emergency room for a chief complaint of laceration. Patient reports he closed his leg in a car door and it caused a skin tear. Tetanus up-to-date according to patient. Patient denies any pain in the leg with walking. Denies any other injuries.Patient has no other complaints at this time including shortness of breath, chest pain, abdominal pain, nausea or vomiting, headache, or visual changes. (Frank Rivas) - Related Data Home Medications Medication Instructions Recorded Confirmed Aspirin 325 mg PO DAILY 11/21/17 06/30/19 Atorvastatin [Lipitor] 10 mg PO HS 11/21/17 06/30/19 Budesonide/Formoterol Fumarate 2 puff INHALATION RT-BID 11/21/17 06/30/19 [Symbicort 80-4.5 Mcg Inhaler] LORazepam [Ativan] 1 mg PO TID PRN 11/21/17 06/30/19 Tamsulosin [Flomax] 0.4 mg PO DAILY 11/21/17 06/30/19 Tiotropium 18 Mcg/Puff [Spiriva] 1 puff INHALATION QAM 11/21/17 06/30/19 Acetylcysteine [Nac] 600 mg PO BID 10/07/18 06/30/19 Warfarin Sodium [Coumadin] 2 mg PO SUMOTUWEFR 10/07/18 06/30/19 Warfarin Sodium [Coumadin] 5 mg PO THSA 10/07/18 06/30/19 Furosemide [Lasix] 60 mg PO W/SUPPER 06/30/19 06/30/19 Furosemide [Lasix] 80 mg PO DAILY 06/30/19 06/30/19 Previous Rx's Medication Instructions Recorded Bisoprolol Fumarate 5 mg PO DAILY 12 Days #12 tablet 10/07/18 Aspirin EC [Ecotrin Low Dose] 81 mg PO DAILY #1 tablet. 07/03/19 Pantoprazole Sodium [Protonix] 40 mg PO BID #60 tablet. 07/03/19 Allergies Allergy/AdvReac Type Severity Reaction Status Date / Time albuterol Allergy Rapid Verified 04/17/20 17:43 Heart Rate pain med (can't remember Allergy Hallucinati Uncoded 04/17/20 17:43 name) ons Patches on chest Allergy Swelling Uncoded 04/17/20 17:43 Review of Systems ROS Other: All systems not noted in ROS Statement are negative. <Frank Rivas P - Last Filed: 04/17/20 18:54> ROS Other: All systems not noted in ROS Statement are negative. <Berenice Chavarria - Last Filed: 04/18/20 18:41> ROS Statement: Those systems with pertinent positive or pertinent negative responses have been documented in the HPI. Past Medical History Past Medical History: COPD, Hyperlipidemia, Pneumonia, Skin Disorder, Vascular Disorder Additional Past Medical History / Comment(s): Has lower abdominal aortic aneurysym. Varicose veins. Left cheek mass/scalp lesion. Hx pneumonia, yrs ago. Hx Shingles. 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 History of Any Multi-Drug Resistant Organisms: None Reported Past Surgical History: Cardiac Valve Replacement, Cholecystectomy Additional Past Surgical History / Comment(s): Stent placed for lower abd aortic aneurysym. Mitral Valve replacement, Bicuspid repair, Past Anesthesia/Blood Transfusion Reactions: No Reported Reaction Date of Last Stent Placement:: 2015 Past Psychological History: Anxiety Smoking Status: Former smoker Past Alcohol Use History: Daily Past Drug Use History: None Reported - Past Family History Mother Family Medical History: Myocardial Infarction ([place]) Additional Family Medical History / Comment(s): at a young age. <Frank Rivas P - Last Filed: 04/17/20 18:54> General Exam Limitations: no limitations General appearance: alert Head exam: Present: atraumatic Eye exam: Present: normal appearance, PERRL, EOMI. Absent: scleral icterus ENT exam: Present: normal exam, mucous membranes moist Neck exam: Present: normal inspection, full ROM. Absent: tenderness Respiratory exam: Present: normal lung sounds bilaterally. Absent: respiratory distress, wheezes Cardiovascular Exam: Present: regular rate, normal rhythm, normal heart sounds GI/Abdominal exam: Present: soft, normal bowel sounds. Absent: distended, tenderness Extremities exam: Present: full ROM (Full range of motion of the right Lower extremity including dorsi and plantar flexion of the right foot As well as full range of motion of the right knee), normal capillary refill (Capillary refill less than 2 seconds, DP pulse 2+.), other (Patient has a 8 cm laceration on the lateral aspect of the mid right tib-fib area. No evidence for foreign body or deep structure injury.). Absent: calf tenderness <Frank Rivas - Last Filed: 04/17/20 18:54> Course <Frank Rivas - Last Filed: 04/17/20 18:54> Vital Signs 04/17/20 04/17/20 04/17/20 17:39 18:42 19:13 Temperature 98.5 F 98.5 F Pulse Rate 82 82 Respiratory 16 18 18 Rate Blood Pressure 149/79 142/77 O2 Sat by Pulse 94 L 94 L Oximetry - Reevaluation(s) Reevaluation #1: 04/17/20 18:20 Dr. Chavarria also examined patient (Frank Rivas) Procedures - Laceration Laceration #1 Consent Obtained: verbal consent Indication: laceration Site: lower extremity Size (cm): 8 Description: linear Depth: simple, single layer Anesthetic Used: lidocaine 1%, with epi Anesthesia Technique: local infiltration Amount (mls): 6 Pre-repair: wound explored, irrigated extensively (With saline pressure irrigation), deep structures intact Type of Sutures: nylon Size of Sutures: 4-0 Number of Sutures: 14 Technique: simple, interrupted (13), horizontal mattress (1) Patient Tolerated Procedure: well, no complications <Frank Rivas - Last Filed: 04/17/20 18:54> Medical Decision Making <Frank Rivas - Last Filed: 04/17/20 18:54> <Berenice Chavarria - Last Filed: 04/18/20 18:41> - Medical Decision Making Wound was cleaned thoroughly with saline pressure irrigation. It was inspected, no deep structure injuries. No foot drop. Laceration of 8 cm was repaired with 14 sutures. Discussed care parameters. Discussed follow-up with primary care for recheck in one to 2 days. He will return in 10-14 days for suture removal. (Frank Rivas) I was available for consultation in the emergency department. The history and physical exam were done by the midlevel provider. I was consulted for this patients care. I reviewed the case with the midlevel provider and based on the ir presentation of the patient, I agree with the assessment, medical decision making and plan of care as documented. Chart was dictated using [employer] dictation software. Attempts were made to correct any dictation errors however some typographical errors may persist. Patient was seen during a national state of emergency due to the Covid-19 pandemic. (Berenice Chavarria) Disposition Is patient prescribed a controlled substance at d/c from ED?: No Time of Disposition: 18:55 <Frank Rivas - Last Filed: 04/17/20 18:54> <Berenice Chavarria - Last Filed: 04/18/20 18:41> Clinical Impression: Laceration Disposition: HOME SELF-CARE Condition: Good Instructions (If sedation given, give patient instructions): Care For Your Stitches (ED), Laceration (ED) Additional Instructions: Please keep the area clean. Clean with gentle soap and water. Monitor for signs of infection such as spreading or streaking redness, drainage, or fever. If these occur return to the emergency room. Otherwise return in 10-14 days for suture removal. Referrals: Tan Bey Jr, DO [Primary Care Provider] - 1-2 days
[2020-04-17] MEDS ORDERED: BACITRACIN OINT 1 EACH PACKET TOPICAL STA (18:55)
[2020-04-17 19:13] VITALS: RESP 18
[2020-04-17 19:14] VITALS: BP 142/77
== END 2020-04-17 19:14 | disposition home or self-care (01) ==
LOC: EC 17:32
DX: S81.811A Laceration without foreign body, right lower leg, initial encounter (principal); F41.9 Anxiety disorder, unspecified; J44.9 Chronic obstructive pulmonary disease, unspecified; E78.5 Hyperlipidemia, unspecified; Z79.51 Long term (current) use of inhaled steroids; Z79.899 Other long term (current) drug therapy; Z88.8 Allergy status to other drugs, medicaments and biological substances; Z87.891 Personal history of nicotine dependence; Z90.49 Acquired absence of other specified parts of digestive tract; Z95.2 Presence of prosthetic heart valve; W23.0XXA Caught, crushed, jammed, or pinched between moving objects, initial encounter
CPT/HCPCS: 12004; 99282

== ENCOUNTER → 2020-05-26 | Outpatient (CLI) | payer MEDICARE, BC ==
--- NOTE | 2020-05-26 15:44 | XR ---
EXAMINATION TYPE: XR chest 2V DATE OF EXAM: 05/26/2020 COMPARISON: 10/07/2018 TECHNIQUE: PA and lateral views submitted. HISTORY: Hemoptysis FINDINGS: Hyperinflation with a postoperative change. Prostatic heart valve. No pneumothorax. Coarsened interst itium. Correlate for underlying COPD. Heart size stable. Basilar subsegmental atelectasis or infiltra te. Atherosclerotic change aorta. Degenerative change of the spine. IMPRESSION: COPD correlate for interstitial pneumonitis or mild venous congestion with small bilatera l effusions.
== END | disposition home or self-care (01) ==
LOC: RADXRMAIN 15:25
PROVIDERS: ATTEND Family Medicine
DX: J44.9 Chronic obstructive pulmonary disease, unspecified (principal)
CPT/HCPCS: 71046

== ENCOUNTER 2021-07-19 20:50 | Inpatient (IN) | payer MEDICARE, BC ==
[2021-07-19 22:05] LABS: Basophils # (A) 0.1 k/uL (0-0.2); Basophils % (A) 1 %; Eosinophils % (A) 1 %; HCT 40.4 % (39.0-53.0); HGB 13.3 gm/dL (13.0-17.5); Lymphocytes # (A) 1.2 k/uL (1.0-4.8); Lymphocytes % (A) 18 %; MCH 33.1 pg (25.0-35.0); MCHC 32.9 g/dL (31.0-37.0); MCV 100.8 fL (80.0-100.0); Macrocytosis Slight; Monocytes # (A) 0.5 k/uL (0-1.0); Monocytes % (A) 7 %; Neutrophils # (A) 4.9 k/uL (1.3-7.7); Neutrophils % (A) 71 %; Platelet Count 186 k/uL (150-450); RBC 4.01 m/uL (4.30-5.90); RDW 13.7 % (11.5-15.5); WBC 6.9 k/uL (3.8-10.6)
[2021-07-19 22:06] LABS: Albumin 4.3 g/dL (3.5-5.0); Potassium 4.3 mmol/L (3.5-5.1); Total Bilirubin 0.5 mg/dL (0.2-1.3); Total Protein 6.7 g/dL (6.3-8.2)
[2021-07-19 22:12] LABS: Calcium 13.9 mg/dL (8.4-10.2)
[2021-07-19] MEDS ORDERED: SODIUM CHLORIDE 0.9% 1,000 ML IV STA (23:46)
--- NOTE | 2021-07-19 23:50 | ED ---
Recheck HPI - General Chief Complaint: Recheck/Abnormal Lab/Rx Stated Complaint: MANSI/Sent by PCP Abnormal Labs Time Seen by Provider: 07/19/21 23:44 Source: patient, RN notes reviewed, old records reviewed Mode of arrival: wheelchair Limitations: no limitations - History of Present Illness Initial Comments: this is a 81-year-old male he is presented today for evaluation of abnormal outpatient lab tests. Patient was informed by his physician that he had abnormal lab tests calcium level being high. Patient is a mildly poor historian for medications and is currently taking. He has no other significant complaints MD Complaint: abnormal lab (hypercalcemia) -: unknown Returns Today for: Called Because of Abnormal Lab/Test Symptoms Since Prior Visit: no new symptoms Context: planned re-check, called for abnormal lab result Associated Symptoms: none Treatments Prior to Arrival: home treatments - Related Data Home Medications Medication Instructions Recorded Confirmed Aspirin 325 mg PO DAILY 11/21/17 06/30/19 Atorvastatin [Lipitor] 10 mg PO HS 11/21/17 06/30/19 Budesonide/Formoterol Fumarate 2 puff INHALATION RT-BID 11/21/17 06/30/19 [Symbicort 80-4.5 Mcg Inhaler] LORazepam [Ativan] 1 mg PO TID PRN 11/21/17 06/30/19 Tamsulosin [Flomax] 0.4 mg PO DAILY 11/21/17 06/30/19 Tiotropium 18 Mcg/Puff [Spiriva] 1 puff INHALATION QAM 11/21/17 06/30/19 Acetylcysteine [Nac] 600 mg PO BID 10/07/18 06/30/19 Warfarin Sodium [Coumadin] 2 mg PO SUMOTUWEFR 10/07/18 06/30/19 Warfarin Sodium [Coumadin] 5 mg PO THSA 10/07/18 06/30/19 Furosemide [Lasix] 60 mg PO W/SUPPER 06/30/19 06/30/19 Furosemide [Lasix] 80 mg PO DAILY 06/30/19 06/30/19 Previous Rx's Medication Instructions Recorded Bisoprolol Fumarate 5 mg PO DAILY 12 Days #12 tablet 10/07/18 Aspirin EC [Ecotrin Low Dose] 81 mg PO DAILY #1 tablet. 07/03/19 Pantoprazole Sodium [Protonix] 40 mg PO BID #60 tablet. 07/03/19 Allergies Allergy/AdvReac Type Severity Reaction Status Date / Time albuterol Allergy Rapid Verified 07/19/21 21:11 Heart Rate pain med (can't remember Allergy Hallucinati Uncoded 07/19/21 21:11 name) ons Patches on chest Allergy Swelling Uncoded 07/19/21 21:11 Review of Systems ROS Statement: Those systems with pertinent positive or pertinent negative responses have been documented in the HPI. ROS Other: All systems not noted in ROS Statement are negative. Past Medical History Past Medical History: COPD, Hyperlipidemia, Pneumonia, Skin Disorder, Vascular Disorder Additional Past Medical History / Comment(s): Has lower abdominal aortic aneurysym. Varicose veins. Left cheek mass/scalp lesion. Hx pneumonia, yrs ago. Hx Shingles. 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 History of Any Multi-Drug Resistant Organisms: None Reported Past Surgical History: Cardiac Valve Replacement, Cholecystectomy Additional Past Surgical History / Comment(s): Stent placed for lower abd aortic aneurysym. Mitral Valve replacement, Bicuspid repair, Past Anesthesia/Blood Transfusion Reactions: No Reported Reaction Date of Last Stent Placement:: 2015 Past Psychological History: Anxiety Smoking Status: Former smoker Past Alcohol Use History: Daily Past Drug Use History: None Reported - Past Family History Mother Family Medical History: Myocardial Infarction ([place]) Additional Family Medical History / Comment(s): at a young age. General Exam Limitations: no limitations General appearance: alert, in no apparent distress Head exam: Present: atraumatic, normocephalic, normal inspection Eye exam: Present: normal appearance, PERRL, EOMI. Absent: scleral icterus, conjunctival injection, periorbital swelling ENT exam: Present: normal exam, mucous membranes moist Neck exam: Present: normal inspection. Absent: tenderness, meningismus, lymphadenopathy Respiratory exam: Present: normal lung sounds bilaterally. Absent: respiratory distress, wheezes, rales, rhonchi, stridor Cardiovascular Exam: Present: regular rate, normal rhythm, normal heart sounds. Absent: systolic murmur, diastolic murmur, rubs, gallop, clicks GI/Abdominal exam: Present: soft, normal bowel sounds. Absent: distended, tenderness, guarding, rebound, rigid Extremities exam: Present: normal inspection, full ROM, normal capillary refill. Absent: tenderness, pedal edema, joint swelling, calf tenderness Back exam: Present: normal inspection Neurological exam: Present: alert, oriented X3, CN II-XII intact Psychiatric exam: Present: normal affect, normal mood Skin exam: Present: warm, dry, intact, normal color. Absent: rash Course Vital Signs 07/19/21 21:05 Temperature 98 F Pulse Rate 91 Respiratory 23 Rate Blood Pressure 168/79 O2 Sat by Pulse 98 Oximetry - Reevaluation(s) Reevaluation #1: 07/19/21 23:56 Medical record is reviewed Reevaluation #2: 07/19/21 23:56 Patient informed results and questions answered Reevaluation #3: 07/19/21 23:56 Patient remains relatively asymptomatic - Consultations Consultation #1: spoke with Dr. Rodriguez who agrees to admit this patient Procedures - [place] Protocol (Time Out) Nurse: Suzanne Lawton Medical Decision Making - Medical Decision Making 81 male to the emergency department for recheck of calcium. Patient has significant hypercalcemia. Patient be admitted for slow hydration and treatment of calcium - Lab Data Result diagrams: 07/19/21 21:30 07/19/21 21:30 Lab Results 07/19/21 07/19/21 07/19/21 Range/Units 21:30 21:30 21:30 WBC 6.9 (3.8-10.6) k/uL RBC 4.01 L (4.30-5.90) m/uL Hgb 13.3 (13.0-17.5) gm/dL Hct 40.4 (39.0-53.0) % MCV 100.8 H (80.0-100.0) fL MCH 33.1 (25.0-35.0) pg MCHC 32.9 (31.0-37.0) g/dL RDW 13.7 (11.5-15.5) % Plt Count 186 (150-450) k/uL MPV 8.0 Neutrophils % 71 % Lymphocytes % 18 % Monocytes % 7 % Eosinophils % 1 % Basophils % 1 % Neutrophils # 4.9 (1.3-7.7) k/uL Lymphocytes # 1.2 (1.0-4.8) k/uL Monocytes # 0.5 (0-1.0) k/uL Eosinophils # 0.0 (0-0.7) k/uL Basophils # 0.1 (0-0.2) k/uL Macrocytosis Slight Sodium 140 (137-145) mmol/L Potassium 4.3 (3.5-5.1) mmol/L Chloride 101 (98-107) mmol/L Carbon Dioxide 31 H (22-30) mmol/L Anion Gap 8 mmol/L BUN 36 H (9-20) mg/dL Creatinine 1.81 H (0.66-1.25) mg/dL Est GFR (CKD-EPI)AfAm 40 (>60 ml/min/1.73 sqM) Est GFR (CKD-EPI)NonAf 35 (>60 ml/min/1.73 sqM) Glucose 115 H (74-99) mg/dL Calcium 13.9 H* (8.4-10.2) mg/dL Total Bilirubin 0.5 (0.2-1.3) mg/dL AST 27 (17-59) U/L ALT 19 (4-49) U/L Alkaline Phosphatase 58 (38-126) U/L Troponin I 0.057 H* (0.000-0.034) ng/mL Total Protein 6.7 (6.3-8.2) g/dL Albumin 4.3 (3.5-5.0) g/dL Disposition Clinical Impression: Hypercalcemia, Elevated troponin Disposition: ADMITTED IP TO THIS HOSP Condition: Fair Is patient prescribed a controlled substance at d/c from ED?: No Referrals: Tan Bey Jr, [Primary Care Provider] - 1-2 days
[2021-07-19] MEDS ORDERED: MORPHINE SULFATE 4 MG/ML SYRINGE IV PRN (23:59)
[2021-07-19] MEDS ORDERED: NALOXONE 0.4 MG/ML 1 ML VIAL IV PRN (23:59)
[2021-07-19] MEDS ORDERED: LORazepam 2 MG/ML INJ IV PRN (23:59)
[2021-07-20] MEDS ORDERED: ACETAMINOPHEN TAB 325 MG TAB PO STA (02:21)
[2021-07-20] MEDS: SODIUM CHLORIDE 0.9% 1,000 ML IV SCH ×3 (05:06→16:15)
[2021-07-20 07:16] LABS: Basophils % (A) 1 %; Eosinophils # (A) 0.1 k/uL (0-0.7); Eosinophils % (A) 2 %; HCT 34.5 % (39.0-53.0); HGB 11.1 gm/dL (13.0-17.5); Lymphocytes # (A) 1.1 k/uL (1.0-4.8); Lymphocytes % (A) 19 %; MCH 33.1 pg (25.0-35.0); MCHC 32.1 g/dL (31.0-37.0); MCV 103.1 fL (80.0-100.0); Macrocytosis Slight; Mean Platelet Volume 7.9; Monocytes # (A) 0.4 k/uL (0-1.0); Monocytes % (A) 7 %; Neutrophils # (A) 3.8 k/uL (1.3-7.7); Neutrophils % (A) 68 %; Platelet Count 176 k/uL (150-450); RBC 3.35 m/uL (4.30-5.90); RDW 13.8 % (11.5-15.5); WBC 5.6 k/uL (3.8-10.6)
[2021-07-20 07:21] LABS: Albumin 3.2 g/dL (3.5-5.0); Calcium 12.6 mg/dL (8.4-10.2); Magnesium 2.5 mg/dL (1.6-2.3); Phosphorus 4.6 mg/dL (2.5-4.5); Potassium 4.2 mmol/L (3.5-5.1); Total Bilirubin 0.5 mg/dL (0.2-1.3); Total Protein 5.3 g/dL (6.3-8.2)
--- NOTE | 2021-07-20 12:05 | P.NPCON ---
History of Present Illness - Reason for Consult acute renal failure - History of Present Illness Patient is an 81-year-old male with history of COPD, hyperlipidemia, abdominal aortic aneurysm. Patient is admitted to the hospital with complaints of increased weakness and abnormal labs as outpatient. Patient is noted to have a serum calcium of 13.9 mg/dL. Patient reports increased intake of Tums over the last 2-3 weeks. Stated that he was having symptoms of reflux and felt his food wasn't going down and has been subsequently taking 2 Tums 2-3 times a day. No previous history of hypercalcemia No new medications No thiazide diuretics Patient is maintained on Lasix 40 mg by mouth daily at home Review of Systems As per HPI, other systems negative Past Medical History Past Medical History: COPD, Hyperlipidemia, Pneumonia, Skin Disorder, Vascular Disorder Additional Past Medical History / Comment(s): Has lower abdominal aortic aneurysym. Varicose veins. Left cheek mass/scalp lesion. Hx pneumonia, yrs ago. Hx Shingles. 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 History of Any Multi-Drug Resistant Organisms: None Reported Past Surgical History: Cardiac Valve Replacement, Cholecystectomy Additional Past Surgical History / Comment(s): Stent placed for lower abd aortic aneurysym. Mitral Valve replacement, Bicuspid repair, Past Anesthesia/Blood Transfusion Reactions: No Reported Reaction Date of Last Stent Placement:: 2015 Past Psychological History: Anxiety Smoking Status: Former smoker Past Alcohol Use History: Daily Past Drug Use History: None Reported - Past Family History Mother Family Medical History: Myocardial Infarction ([place]) Additional Family Medical History / Comment(s): at a young age. Medications and Allergies Home Medications Medication Instructions Recorded Confirmed Type LORazepam [Ativan] 1 mg PO TID PRN 11/21/17 07/20/21 History Tamsulosin [Flomax] 0.4 mg PO DAILY 11/21/17 07/20/21 History Tiotropium 18 Mcg/Puff [Spiriva] 2 puff INHALATION RT-DAILY 11/21/17 07/20/21 History Bisoprolol Fumarate 5 mg PO DAILY 12 Days #12 tablet 10/07/18 07/20/21 Rx Furosemide [Lasix] 40 mg PO DAILY 06/30/19 07/20/21 History Atorvastatin [Lipitor] 10 mg PO HS 07/20/21 07/20/21 History Calcium Carb-Vit D 500Mg-5Mcg 2 tab PO DAILY 07/20/21 07/20/21 History [Oscal 500+D 5 Mcg (200 Iu)] Empagliflozin [Jardiance] 10 mg PO DAILY 07/20/21 07/20/21 History Ferrous Sulfate [Feosol] 325 mg PO DAILY 07/20/21 07/20/21 History Fluticasone/Salmeterol [Advair 1 puff IN RT-BID 07/20/21 07/20/21 History 100-50 Diskus] Levalbuterol Hfa Inhaler [Xopenex 2 puff INHALATION RT-Q4H PRN MDD 4 07/20/21 07/20/21 History Hfa Inhaler] DOSES Warfarin Sodium [Jantoven] 2 mg PO SUMOTUFRSA 07/20/21 07/20/21 History Warfarin Sodium [Jantoven] 4 mg PO WETH 07/20/21 07/20/21 History predniSONE 5 mg PO DAILY 07/20/21 07/20/21 History Allergies Allergy/AdvReac Type Severity Reaction Status Date / Time albuterol Allergy Rapid Verified 07/20/21 10:52 Heart Rate pain med (can't remember Allergy Hallucinati Uncoded 07/19/21 21:11 name) ons Patches on chest Allergy Swelling Uncoded 07/19/21 21:11 Physical Exam Vitals: Vital Signs Temp Pulse Pulse Resp BP Pulse Ox 07/20/21 10:00 78 18 149/80 93 L 07/20/21 02:17 98.2 F 81 22 149/80 94 L 07/20/21 02:14 81 07/19/21 21:05 98 F 91 23 168/79 98 Intake and Output 07/19/21 07/20/21 07/20/21 22:59 06:59 14:59 Other: Weight 64.864 kg Patient is awake, comfortable, not in any acute distress Alert oriented 3 Examination of the heart S1 and S2 Examination of the lungs bilateral breath sounds are heard Abdomen is soft nontender Examination of the lower extremities shows no evidence of edema 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 Acute kidney injury associated with hypercalcemia and hypovolemia 2. Hypercalcemia most likely associated with increased intake of Tums recently. Check PTH levels and 25-hydroxy vitamin D as well as 1, 25 hydroxy vitamin D. 3. COPD, not in excess the patient 4. Hyperlipidemia 5. History of abdominal aortic aneurysm Plan: Continue with IV fluids Check 25-hydroxy vitamin D, 1, 25 hydroxy vitamin D and PTH levels Patient is advised to avoid use of Tums Repeat labs in a.m. Check UA Check ultrasound of the kidneys Thank you for this consultation, we'll continue to follow the patient with you during his hospitalization
[2021-07-20] MEDS ORDERED: IPRATROPIUM-ALBUTEROL 3 ML NEB INHALATION PRN (12:39)
[2021-07-20] MEDS ORDERED: PANTOPRAZOLE 40 MG/10 ML VIAL IVP SCH (12:45)
[2021-07-20] MEDS: TAMSULOSIN 0.4 MG CAP.ER.24H PO SCH (13:52)
[2021-07-20] MEDS: predniSONE 5 MG TAB PO SCH (13:52)
[2021-07-20] MEDS: BISOPROLOL 5 MG TAB PO SCH (13:52)
--- NOTE | 2021-07-20 14:07 | CT ---
EXAMINATION TYPE: CT chest wo con DATE OF EXAM: 07/20/2021 COMPARISON: 12/26/2017 HISTORY: Advanced COPD CT DLP: 333.[address] of the chest was performed with lung and mediastinal window settings submitted. The la ck of contrast limits evaluation of the vascular, mediastinal and parenchymal structures including th e upper abdomen. LUNGS: Severe upper lobe emphysematous changes progressive from prior study of 2017. The lungs are cl ear and free of infiltrate. Basilar parenchymal scarring or atelectasis. No pulmonary nodule or mass is detected. No pleural effusion. No CT evidence of interstitial lung disease. MEDIASTINUM/MADHAVI: Thoracic aorta is of normal caliber with limited evaluation given lack of contrast . The heart is enlarged. No evidence for mediastinal mass. No lymph nodes greater than 1cm. UPPER ABDOMEN: No significant abnormality is seen. OTHER: No significant other abnormality. IMPRESSION: 1. Severe upper lobe emphysematous changes progressive from prior study of 2018.
--- NOTE | 2021-07-20 14:25 | P.HPIM ---
History of Present Illness H&P Date: 07/20/21 Chief Complaint: Hypercalcemia This is an 81-year-old gentleman with history of COPD, chronic hypoxic respiratory failure-rays 2 L nasal cannula at home, hyperlipidemia,vascular disorder, abdominal aortic aneurysm with stent placement, shingles, A. fib, mitral valve replacement-prosthetic on Coumadin, anxiety, former nicotine dependence, daily wine intake, instructed to proceed to the ER with high serum calcium level of 13.9, increased weakness, reports feeling fatigued. Denies near syncope or syncope. Denies lightheadedness dizziness or focal deficits. Denies confusion, depression .Denies any nausea vomiting or diarrhea. Denies constipation. Denies muscle spasms,tremors. He reports he has been compliant with his medications except for yesterday he did not take his Lasix as he had multiple errands to run. Denies chest pain, palpitations or increasing shortness of breath. Hemoglobin on admission 13.3, currently down to 11.1, platelets 176, with IV fluid hydration. Calcium levels have decreased to 12.6. Reported having significant reflux and had been consuming extra Tums over the last 2-3 weeks, up to about 6 per day. Troponins 0.05, 0.064, 0.090, EKG currently unavailable. Creatinine 2.02, baseline 1.2. Consumes 1-2 glasses of wine daily. Review of Systems ROS Statement: Those systems with pertinent positive or pertinent negative responses have been documented in the HPI. ROS Other: All systems not noted in ROS Statement are negative. Past Medical History Past Medical History: COPD, Hyperlipidemia, Pneumonia, Skin Disorder, Vascular Disorder Additional Past Medical History / Comment(s): Has lower abdominal aortic aneurysym. Varicose veins. Left cheek mass/scalp lesion. Hx pneumonia, yrs ago. Hx Shingles. 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 History of Any Multi-Drug Resistant Organisms: None Reported Past Surgical History: Cardiac Valve Replacement, Cholecystectomy Additional Past Surgical History / Comment(s): Stent placed for lower abd aortic aneurysym. Mitral Valve replacement, Bicuspid repair, Past Anesthesia/Blood Transfusion Reactions: No Reported Reaction Date of Last Stent Placement:: 2015 Past Psychological History: Anxiety Smoking Status: Former smoker Past Alcohol Use History: Daily Past Drug Use History: None Reported - Past Family History Mother Family Medical History: Myocardial Infarction ([place]) Additional Family Medical History / Comment(s): at a young age. Medications and Allergies Home Medications Medication Instructions Recorded Confirmed Type LORazepam [Ativan] 1 mg PO TID PRN 11/21/17 07/20/21 History Tamsulosin [Flomax] 0.4 mg PO DAILY 11/21/17 07/20/21 History Tiotropium 18 Mcg/Puff [Spiriva] 2 puff INHALATION RT-DAILY 11/21/17 07/20/21 History Bisoprolol Fumarate 5 mg PO DAILY 12 Days #12 tablet 10/07/18 07/20/21 Rx Furosemide [Lasix] 40 mg PO DAILY 06/30/19 07/20/21 History Atorvastatin [Lipitor] 10 mg PO HS 07/20/21 07/20/21 History Calcium Carb-Vit D 500Mg-5Mcg 2 tab PO DAILY 07/20/21 07/20/21 History [Oscal 500+D 5 Mcg (200 Iu)] Empagliflozin [Jardiance] 10 mg PO DAILY 07/20/21 07/20/21 History Ferrous Sulfate [Feosol] 325 mg PO DAILY 07/20/21 07/20/21 History Fluticasone/Salmeterol [Advair 1 puff IN RT-BID 07/20/21 07/20/21 History 100-50 Diskus] Levalbuterol Hfa Inhaler [Xopenex 2 puff INHALATION RT-Q4H PRN MDD 4 07/20/21 07/20/21 History Hfa Inhaler] DOSES Warfarin Sodium [Jantoven] 2 mg PO SUMOTUFRSA 07/20/21 07/20/21 History Warfarin Sodium [Jantoven] 4 mg PO WETH 07/20/21 07/20/21 History predniSONE 5 mg PO DAILY 07/20/21 07/20/21 History Allergies Allergy/AdvReac Type Severity Reaction Status Date / Time albuterol Allergy Rapid Verified 07/20/21 10:52 Heart Rate pain med (can't remember Allergy Hallucinati Uncoded 07/19/21 21:11 name) ons Patches on chest Allergy Swelling Uncoded 07/19/21 21:11 Physical Exam Vitals: Vital Signs Temp Pulse Pulse Resp BP BP Pulse Ox 07/20/21 12:19 98 07/20/21 12:17 74 18 137/72 99 07/20/21 10:00 78 18 149/80 93 L 07/20/21 02:17 98.2 F 81 22 149/80 94 L 07/20/21 02:14 81 07/19/21 21:05 98 F 91 23 168/79 98 Intake and Output 07/19/21 07/20/21 07/20/21 22:59 06:59 14:59 Other: Weight 64.864 kg PHYSICAL EXAM: VITAL SIGNS: As above GENERAL: Pleasant, Sitting up on stretcher, no acute distress HEENT: Conjunctivae normal. eyes normal. Oral mucosa dry NECK: No JVD. No thyroid enlargement. No LNs CARDIOVASCULAR: S1, S2 regular. Systolic murmur RESPIRATION: Breath sounds diminished in the bases. No rhonchi or crackles. No bronchial breathing. ABDOMEN: Soft, nontender . No guarding. no masses palpable. No ascites, No hepatosplenomegaly.Bowel sounds heard. LEGS: No edema. no swelling PSYCHIATRY: Alert and oriented X3, mood and affect normal. NERVOUS SYSTEM: Cranial N 2-12 grossly normal. Moves all 4 limbs. No focal deficits. Strength and sensation grossly intact.. Skin: Warm and dry, no rash Results CBC & Chem 7: 07/20/21 06:20 07/20/21 06:20 Labs: Abnormal Lab Results - Last 24 Hours (Table) 07/19/21 07/19/21 07/19/21 Range/Units 21:30 21:30 21:30 RBC 4.01 L (4.30-5.90) m/uL Hgb (13.0-17.5) gm/dL Hct (39.0-53.0) % MCV 100.8 H (80.0-100.0) fL Carbon Dioxide 31 H (22-30) mmol/L BUN 36 H (9-20) mg/dL Creatinine 1.81 H (0.66-1.25) mg/dL Glucose 115 H (74-99) mg/dL Calcium 13.9 H* (8.4-10.2) mg/dL Phosphorus (2.5-4.5) mg/dL Magnesium (1.6-2.3) mg/dL Troponin I 0.057 H* (0.000-0.034) ng/mL Total Protein (6.3-8.2) g/dL Albumin (3.5-5.0) g/dL 07/20/21 07/20/21 07/20/21 Range/Units 00:28 06:20 06:20 RBC 3.35 L (4.30-5.90) m/uL Hgb 11.1 L (13.0-17.5) gm/dL Hct 34.5 L (39.0-53.0) % MCV 103.1 H (80.0-100.0) fL Carbon Dioxide (22-30) mmol/L BUN (9-20) mg/dL Creatinine (0.66-1.25) mg/dL Glucose (74-99) mg/dL Calcium (8.4-10.2) mg/dL Phosphorus (2.5-4.5) mg/dL Magnesium (1.6-2.3) mg/dL Troponin I 0.064 H* 0.090 H* (0.000-0.034) ng/mL Total Protein (6.3-8.2) g/dL Albumin (3.5-5.0) g/dL 07/20/21 Range/Units 06:20 RBC (4.30-5.90) m/uL Hgb (13.0-17.5) gm/dL Hct (39.0-53.0) % MCV (80.0-100.0) fL Carbon Dioxide 34 H (22-30) mmol/L BUN 38 H (9-20) mg/dL Creatinine 2.02 H (0.66-1.25) mg/dL Glucose (74-99) mg/dL Calcium 12.6 H (8.4-10.2) mg/dL Phosphorus 4.6 H (2.5-4.5) mg/dL Magnesium 2.5 H (1.6-2.3) mg/dL Troponin I (0.000-0.034) ng/mL Total Protein 5.3 L (6.3-8.2) g/dL Albumin 3.2 L (3.5-5.0) g/dL Assessment and Plan Assessment: Hypercalcemia, etiology unclear, in a patient who had been consuming increased amounts at Tums recently. Workup in progress. Acute on chronic hypoxic respiratory failure, wears 2 L at home Acute on chronic renal failure, stage III, baseline around 1.2, secondary to hypovolemia, hypercalcemia Elevated troponins, mildly trending up Mild anemia, suspect dilutional Dehydration COPD, stable Alcohol use, Daily alcohol consumption of 1-2 glasses of wine Mitral valve replacement, prosthetic valve on Coumadin Hyperlipidemia PVD with history of stented lower abdominal aortic aneurysm History of nicotine dependence History of anxiety Hyperlipidemia Plan: Continue on current medication regime ,monitoring and symptomatic treatment. Resume Coumadin, pending PT/INR levels-pending. Maintain IV fluid hydration. PPI ordered for GI prophylaxis. Etiology of hypercalcemia unclear, in a patient with advanced COPD -CT of chest without contrast secondary to the elevated creatinine. Evaluated by Nephrology, recommendations noted; renal ultrasound,25-hydroxy vitamin D, 1, 25 hydroxy vitamin D and PTH levels pending. Cardiology consult in place, recommendations pending. Close monitoring of coag ulation profile, electrolytes, renal function and calcium with repeat labs ordered for a.m. The impression and plan of care has been dictated as directed. : I performed a history and examination of this patient, discussed the same with the dictator. I agree with the dictator's note ,documented as a scribe. Any additional findings or plans will be noted.
[2021-07-20 15:42] LABS: INR 2.5 (<1.2); Prothrombin Time 25.4 sec (9.0-12.0)
--- NOTE | 2021-07-20 15:59 | US ---
EXAMINATION TYPE: US kidneys/renal and bladder DATE OF EXAM: 07/20/2021 COMPARISON: NONE CLINICAL HISTORY: davida. davida EXAM MEASUREMENTS: Right Kidney: 9.5 x 4.4 x 5.1 cm Left Kidney: 9.4 x 4.3 x 5.2 cm Right Kidney: 1.5 x 1.7 x 1.7cm mid pole hypoechoic nodule Left Kidney: No hydronephrosis or masses seen Bladder: posterior diverticulum with irregular right side wall Bilateral Jets seen: right only IMPRESSION: 1. There is a 1.7cm hypoechoic lesion right kidney does not meet the criteria of a simple cyst. Recen t CT scan demonstrated the lesion to measure 25 Hounsfield units. Recommend MRI. 2. There is a bladder diverticulum which demonstrates wall irregularity. A mucosal lesion is not exc luded recommend urology consultation. 3. Cortical thinning correlate for chronic medical renal disease.
[2021-07-20 16:00] LABS: Appearance,Urine Clear (Clear); Bilirubin,Urine Negative (Negative); Blood,Urine Negative (Negative); Color,Urine Yellow; Glucose,Urine (UA) Negative (Negative); Ketones,Urine Negative (Negative); Leukocyte Esterase,Urine Negative (Negative); Nitrite,Urine Negative (Negative); Protein,Urine Negative (Negative); Specific Gravity,Urine 1.014 (1.001-1.035); Urobilinogen,Urine <2.0 mg/dL (<2.0)
[2021-07-20] MEDS: IPRATROPIUM-ALBUTEROL 3 ML NEB INHALATION SCH ×3 (16:13→20:55)
[2021-07-20 16:47] LABS: Glucose,Whole Blood 116 mg/dL (75-99)
[2021-07-20] MEDS: INSULIN ASPART (NovoLOG) 100 UNIT/ML VIAL SQ SCH ×2 (16:50→20:27)
[2021-07-20] MEDS ORDERED: WARFARIN 2 MG TAB PO SCH (18:00)
[2021-07-20 20:20] LABS: Glucose,Whole Blood 107 mg/dL (75-99)
[2021-07-20] MEDS: SYMBICORT 80-4.5 MCG INHALER INHALATION SCH (20:53)
[2021-07-20] MEDS ORDERED: ATORVASTATIN 10 MG TAB PO SCH (21:00)
[2021-07-21] MEDS: SODIUM CHLORIDE 0.9% 1,000 ML IV SCH ×2 (00:19→06:56)
[2021-07-21] MEDS ORDERED: PANTOPRAZOLE 40 MG TABLET PO SCH (07:30)
[2021-07-21] MEDS: SYMBICORT 80-4.5 MCG INHALER INHALATION SCH (07:50)
[2021-07-21] MEDS ORDERED: FERROUS SULFATE 325 MG TAB PO SCH (09:00)
[2021-07-21 09:01] LABS: Basophils % (A) 1 %; Eosinophils # (A) 0.1 k/uL (0-0.7); Eosinophils % (A) 1 %; HCT 35.7 % (39.0-53.0); HGB 11.3 gm/dL (13.0-17.5); Lymphocytes # (A) 0.8 k/uL (1.0-4.8); Lymphocytes % (A) 15 %; MCHC 31.5 g/dL (31.0-37.0); MCV 104.8 fL (80.0-100.0); Macrocytosis Slight; Mean Platelet Volume 9.1; Monocytes # (A) 0.3 k/uL (0-1.0); Monocytes % (A) 5 %; Neutrophils # (A) 3.9 k/uL (1.3-7.7); Neutrophils % (A) 76 %; Platelet Count 162 k/uL (150-450); RBC 3.41 m/uL (4.30-5.90); RDW 13.7 % (11.5-15.5); WBC 5.2 k/uL (3.8-10.6)
[2021-07-21] MEDS: IPRATROPIUM-ALBUTEROL 3 ML NEB INHALATION SCH ×2 (09:01→12:45)
[2021-07-21 09:15] LABS: INR 2.6 (<1.2); Prothrombin Time 26.3 sec (9.0-12.0)
[2021-07-21 09:18] LABS: Calcium 11.6 mg/dL (8.4-10.2); Magnesium 2.2 mg/dL (1.6-2.3); Potassium 3.8 mmol/L (3.5-5.1)
[2021-07-21] MEDS: BISOPROLOL 5 MG TAB PO SCH (09:24)
[2021-07-21] MEDS: predniSONE 5 MG TAB PO SCH (09:24)
[2021-07-21] MEDS: TAMSULOSIN 0.4 MG CAP.ER.24H PO SCH (09:24)
--- NOTE | 2021-07-21 10:39 | P.PN ---
Subjective Patient is seen for follow-up for hypercalcemia. Workup shows vitamin D level was more than 200. Patient was also taking a lot of Tums. Calcium level is down to 11.6 today. Patient denies any significant complaints. Serum creatinine is at 2.0 Ultrasound of the kidneys shows 1.7 cm cyst in the right kidney which does not meet criteria for simple cyst. No obstruction noted Objective - Vital Signs Vital signs: Vital Signs Temp 97.7 F 07/21/21 09:22 Pulse 61 07/21/21 09:22 Resp 21 07/21/21 09:22 BP 123/60 07/21/21 09:22 Pulse Ox 98 07/21/21 09:22 Intake & Output 07/20/21 07/21/21 07/21/21 18:59 06:59 18:59 Intake Total 390 118 Balance 390 118 Weight 64.864 kg Intake: Intake, IV Titration 390 Amount Sodium Chloride 0.9% 1, 390 000 ml @ 130 mls/hr IV . Q7H42M [facility] Rx#:[id number] Oral 118 Other: Voiding Method Toilet Toilet # Voids 1 2 # Bowel Movements 1 - Exam Awake, alert, oriented 3, not in any acute distress Examination of the heart S1 and S2 Examination off lungs bilateral breath sounds are heard Abdomen is soft nontender Examination lower extremities shows no evidence of edema [employer] exam grossly intact - Labs CBC & Chem 7: 07/21/21 08:35 07/21/21 08:35 Labs: Abnormal Lab Results - Last 24 Hours (Table) 07/20/21 07/20/21 07/20/21 Range/Units 06:20 15:10 16:46 RBC (4.30-5.90) m/uL Hgb (13.0-17.5) gm/dL Hct (39.0-53.0) % MCV (80.0-100.0) fL Lymphocytes # (1.0-4.8) k/uL PT 25.4 H (9.0-12.0) sec INR 2.5 H (<1.2) BUN (9-20) mg/dL Creatinine (0.66-1.25) mg/dL POC Glucose (mg/dL) 116 H (75-99) mg/dL Calcium (8.4-10.2) mg/dL Troponin I (0.000-0.034) ng/mL Vitamin D 25-Hydroxy >200.0 H (30.0-100.0) ng/mL 07/20/21 07/21/21 07/21/21 Range/Units 20:18 08:35 08:35 RBC 3.41 L (4.30-5.90) m/uL Hgb 11.3 L (13.0-17.5) gm/dL Hct 35.7 L (39.0-53.0) % MCV 104.8 H (80.0-100.0) fL Lymphocytes # 0.8 L (1.0-4.8) k/uL PT (9.0-12.0) sec INR (<1.2) BUN 41 H (9-20) mg/dL Creatinine 2.07 H (0.66-1.25) mg/dL POC Glucose (mg/dL) 107 H (75-99) mg/dL Calcium 11.6 H (8.4-10.2) mg/dL Troponin I (0.000-0.034) ng/mL Vitamin D 25-Hydroxy (30.0-100.0) ng/mL 07/21/21 07/21/21 Range/Units 08:35 08:35 RBC (4.30-5.90) m/uL Hgb (13.0-17.5) gm/dL Hct (39.0-53.0) % MCV (80.0-100.0) fL Lymphocytes # (1.0-4.8) k/uL PT 26.3 H (9.0-12.0) sec INR 2.6 H (<1.2) BUN (9-20) mg/dL Creatinine (0.66-1.25) mg/dL POC Glucose (mg/dL) (75-99) mg/dL Calcium (8.4-10.2) mg/dL Troponin I 0.052 H* (0.000-0.034) ng/mL Vitamin D 25-Hydroxy (30.0-100.0) ng/mL Assessment and Plan Assessment: 1. Acute kidney injury associated with hypercalcemia and hypovolemia. No obstruction noted on ultrasound. UA is completely benign 2. Hypercalcemia most likely associated with increased intake of Tums recently. Check PTH levels. 25-hydroxy vitamin D level was elevated at more than 200. Patient was taking 20,000 units daily for 2-3 months. He is advised to hold off on the thumbs as well as a vitamin D for now. 3. COPD, not in excess the patient 4. Hyperlipidemia 5. History of abdominal aortic aneurysm 6. Right renal cyst, atypical 1.7 cm. Refer to urology as outpatient Plan: Patient can be discharged from nephrology standpoint He is advised to continue to hold off on the Tums and vitamin D Take Pepcid for gastroesophageal reflux disease if needed Patient will need urology referral as outpatient for atypical cyst on the right kidney. Patient is also need follow-up with nephrology for the acute kidney injury/possible CK D
--- NOTE | 2021-07-21 11:26 | P.CRDCN ---
History of Present Illness Consult date: 07/21/21 History of present illness: HISTORY OF PRESENT ILLNESS: This is a 81-year-old male with a past medical history significant for COPD with home oxygen use, mitral valve replacement, tricuspid valve repair, cardiomyopathy, paroxysmal atrial fibrillation, hypertension, AAA, and hyperlipidemia. Patient follows in the office with Dr. Kramer. We have been asked to see the patient in consultation for abnormal troponins. Patient examined at the bedside. Patient states he presented to the hospital after being notified by his primary care physician's office that his calcium levels were elevated and he needed to come to the emergency room for further evaluation. The patient's calcium level was found to be 13.9. The patient does report that 3 weeks ago he started taking Tums 2-3 times per day. The patient currently denies having any chest pain or pressure. He does report shortness of breath over the past 2 weeks with ambulation such as walking to the bathroom. He wears home oxygen at 2 L. * EKG not available at the time of this dictation * Chest xray severe upper lobe emphysematous changes progressive from prior study in 2018 * Laboratory data: WBC 5.6. Hemoglobin 11.1. Platelet count 176. INR 2.5. Sodium 140. Potassium 4.2. BUN 38. Creatinine 2.02. Magnesium 2.5. Troponin 0.057. 0.064. 0.090. 0.052. * Current home cardiac medications include Bisoprolol 5mg daily, Lipitor 10 mg at night, Jardiance 10 mg daily, Lasix 40 mg daily, warfarin 4 mg Saturday and and 2 mg Saturday * Most recent echocardiogram obtained in May 2020 revealed ejection fraction 45-50%, mild LVH, mild aortic regurgitation, biological mitral valve prosthesis, annuloplasty ring tricuspid valve prosthesis, severe pulmonary artery hypertension REVIEW OF SYSTEMS: At the time of my exam: CONSTITUTIONAL: Denies fever or chills. HEENT: Denies blurred vision, vision changes, or eye pain. Denies hemoptysis CARDIOVASCULAR: Denies chest pain. Denies orthopnea. Denies PND. Denies palpitations RESPIRATORY: Denies shortness of breath. GASTROINTESTINAL: Denies abdominal pain. Denies nausea or vomiting. HEMATOLOGIC: Denies bleeding disorders. GENITOURINARY: Denies any blood in urine. SKIN: Denies pruitis. Denies rash. PHYSICAL EXAM: VITAL SIGNS: Reviewed. GENERAL: Well-developed in no acute distress. HEENT: Head is normocephalic. Pupils are equal, round. Sclerae anicteric. Mucous membranes of the mouth are moist. Neck supple. No JVD or thyromegaly LUNGS: Respirations even and unlabored. Lungs with decreased air exchanged bilaterally. HEART: Regular rate and rhythm. S1 and S2 heard. Soft systolic murmur noted. ABDOMEN: Soft. Nondistended. Nontender. EXTREMITIES: Normal range of motion. No clubbing or cyanosis. Peripheral pulses intact. No lower extremity edema NEUROLOGIC: Awake and alert. Oriented x 3. ASSESSMENT: Hypercalcemia Chronic kidney disease Abnormal troponins, not suggestive of acute coronary syndrome COPD with home oxygen use History of mitral valve replacement History of tricuspid valve repair Paroxysmal atrial fibrillation History of AAA Hyperlipidemia PLAN: An acute coronary event has been ruled out Obtain 2D echo to assess cardiac structure and function Obtain EKG Continue telemetry monitoring Resume home cardiac medications Continue anticoagulation with Wafarin. Monitor INR Further recommendations pending patient course Nurse practitioner note has been reviewed by physician. Signing provider agrees with the documented findings, assessment, and plan of care. Past Medical History Past Medical History: Atrial Fibrillation, Heart Failure, COPD, GI Bleed, Hyperlipidemia, Pneumonia, Prostate Disorder, Renal Disease, Skin Disorder, Vascular Disorder Additional Past Medical History / Comment(s): GI bleed, gastritis, gastric ectasia, CKD stage III, past abdominal aortic aneurysm/had stent placed, varicosities, PVD, past shingellis and occasionally will have R flank nerve pain, BPH. History of Any Multi-Drug Resistant Organisms: None Reported Past Surgical History: Cardiac Valve Replacement, Cholecystectomy, Heart Ca theterization Additional Past Surgical History / Comment(s): Stent placed for lower abd aortic aneurysym, mitral valve replacement/bicuspid repair, EGD with ablation, colonosc opy, excision L cheek lesion/mass and lesion from scalp/all benign, Past Anesthesia/Blood Transfusion Reactions: No Reported Reaction Date of Last Stent Placement:: 2015 Smoking Status: Former smoker - Past Family History Mother Family Medical History: Myocardial Infarction ([place]) Additional Family Medical History / Comment(s): at a young age. Father Family Medical History: Hypertension Medications and Allergies Home Medications Medication Instructions Recorded Confirmed Type LORazepam [Ativan] 1 mg PO TID PRN 11/21/17 07/20/21 History Tamsulosin [Flomax] 0.4 mg PO DAILY 11/21/17 07/20/21 History Tiotropium 18 Mcg/Puff [Spiriva] 2 puff INHALATION RT-DAILY 11/21/17 07/20/21 History Bisoprolol Fumarate 5 mg PO DAILY 12 Days #12 tablet 10/07/18 07/20/21 Rx Furosemide [Lasix] 40 mg PO DAILY 06/30/19 07/20/21 History Atorvastatin [Lipitor] 10 mg PO HS 07/20/21 07/20/21 History Calcium Carb-Vit D 500Mg-5Mcg 2 tab PO DAILY 07/20/21 07/20/21 History [Oscal 500+D 5 Mcg (200 Iu)] Empagliflozin [Jardiance] 10 mg PO DAILY 07/20/21 07/20/21 History Ferrous Sulfate [Feosol] 325 mg PO DAILY 07/20/21 07/20/21 History Fluticasone/Salmeterol [Advair 1 puff IN RT-BID 07/20/21 07/20/21 History 100-50 Diskus] Levalbuterol Hfa Inhaler [Xopenex 2 puff INHALATION RT-Q4H PRN MDD 4 07/20/21 07/20/21 History Hfa Inhaler] DOSES Warfarin Sodium [Jantoven] 2 mg PO SUMOTUFRSA 07/20/21 07/20/21 History Warfarin Sodium [Jantoven] 4 mg PO WETH 07/20/21 07/20/21 History predniSONE 5 mg PO DAILY 07/20/21 07/20/21 History Allergies Allergy/AdvReac Type Severity Reaction Status Date / Time albuterol Allergy Rapid Verified 07/20/21 10:52 Heart Rate pain med (can't remember Allergy Hallucinati Uncoded 07/19/21 21:11 name) ons Patches on chest Allergy Swelling Uncoded 07/19/21 21:11 Physical Exam Vitals: Vital Signs Temp Pulse Pulse Resp BP BP Pulse Ox 07/21/21 07:50 98 07/21/21 03:49 56 L 16 96 07/21/21 01:23 65 18 07/21/21 00:00 97.9 F 65 18 115/56 95 07/20/21 20:00 97.8 F 68 20 132/71 91 L 07/20/21 17:34 65 18 118/59 98 07/20/21 15:18 74 18 07/20/21 12:19 98 07/20/21 12:17 74 18 137/72 99 07/20/21 10:00 78 18 149/80 93 L Intake and Output 07/20/21 07/21/21 07/21/21 22:59 06:59 14:59 Intake Total 390 118 Balance 390 118 Intake: Intake, IV Titration 390 Amount Sodium Chloride 0.9% 1, 390 000 ml @ 130 mls/hr IV . Q7H42M [facility] Rx#:[id number] Oral 118 Other: Voiding Method Toilet Toilet # Voids 1 2 # Bowel Movements 1 Weight 64.864 kg Results 07/21/21 08:35 07/21/21 08:35 Coagulation 07/20/21 Range/Units 15:10 PT 25.4 H (9.0-12.0) sec Current Medications Generic Name Dose Route Start Last Admin Trade Name Freq PRN Reason Stop Dose Admin Albuterol/Ipratropium 3 ml 07/20/21 16:00 07/20/21 20:55 Ipratropium-Albuterol 3 Ml Neb INHALATION Not Given RT-QID RAMONA Albuterol/Ipratropium 3 ml 07/20/21 12:39 Ipratropium-Albuterol 3 Ml Neb INHALATION RT-Q2H PRN Shortness Of Breath Or Wheezing Atorvastatin Calcium 10 mg 07/20/21 21:00 07/20/21 20:33 Atorvastatin 10 Mg Tab PO 10 mg HS RAMONA Administration Bisoprolol Fumarate 5 mg 07/20/21 12:45 07/20/21 13:52 Bisoprolol 5 Mg Tab PO 5 mg DAILY RAMONA Administration Budesonide/Formoterol Fumarate 2 puff 07/20/21 20:00 07/21/21 07:50 Symbicort 80-4.5 Mcg Inhaler INHALATION 2 puff RT-BID RAMONA Administration Ferrous Sulfate 325 mg 07/21/21 09:00 Ferrous Sulfate 325 Mg Tab PO DAILY RAMONA Sodium Chloride 1,000 mls @ 130 mls/hr 07/19/21 23:45 07/21/21 06:56 Saline 0.9% IV Not Given .Q7H42M [facility] Lorazepam 0.5 mg 07/19/21 23:59 Lorazepam 2 Mg/Ml Inj IV Q6HR PRN Anxiety Miscellaneous Information 1 each 07/20/21 15:37 Warfarin Per Pharmacy MISCELLANE DIRECTED PRN Per Protocol Morphine Sulfate 4 mg 07/19/21 23:59 Morphine Sulfate 4 Mg/Ml Syringe IV Q4HR PRN Severe Pain Naloxone HCl 0.2 mg 07/19/21 23:59 Naloxone 0.4 Mg/Ml 1 Ml Vial IV Q2M PRN Opioid Reversal Pantoprazole Sodium 40 mg 07/21/21 07:30 07/21/21 06:51 Pantoprazole 40 Mg Tablet PO 40 mg [id number] RAMONA Administration Prednisone 5 mg 07/20/21 12:45 07/20/21 13:52 Prednisone 5 Mg Tab PO 5 mg DAILY RAMONA Administration Tamsulosin HCl 0.4 mg 07/20/21 12:45 07/20/21 13:52 Tamsulosin 0.4 Mg Cap.Er.24h PO 0.4 mg DAILY RAMONA Administration Warfarin Sodium 2 mg 07/21/21 18:00 Warfarin 2 Mg Tab PO [id number] [facility] Protocol Warfarin Sodium 4 mg 07/20/21 18:00 07/20/21 17:39 Warfarin 2 Mg Tab PO 4 mg [id number] [facility] Administration Protocol Intake and Output 07/20/21 07/21/21 07/21/21 22:59 06:59 14:59 Intake Total 390 118 Balance 390 118 Intake: Intake, IV Titration 390 Amount Sodium Chloride 0.9% 1, 390 000 ml @ 130 mls/hr IV . Q7H42M [facility] Rx#:[id number] Oral 118 Other: Voiding Method Toilet Toilet # Voids 1 2 # Bowel Movements 1 Weight 64.864 kg 07/20/21 06:20 07/20/21 06:20
[2021-07-21 12:41] VITALS: BP 133/68; PULSE 73; RESP 18; TEMP 98.2
--- NOTE | 2021-07-21 14:39 | P.CNPUL ---
History of Present Illness Consult date: 07/21/21 Reason for consult: COPD Chief complaint: Abnormal labs History of present illness: This is an 81-year-old white male with history of COPD, chronic hypoxic respiratory failure, patient has Gold stage III COPD, he normally follows up in our office with Dr. Jett. Patient has been following up with a sales team leader out of the [facility], patient has chronic atrial fibrillation, abdominal aortic aneurysm and stent placement, history of mitral valve replacement, on Coumadin. Patient was advised by the sales team leader at the [facility] to have routine labs, and apparently these were done by Dr. Bey at his office. Calcium came back at 13.9, patient was advised by Dr. Rodriguez to come to the ER. Patient had mostly symptoms of weakness, feeling fatigued, otherwise he had no major symptomatology. Considering his underlying COPD, I was asked to see him on consultation. However his pulmonary status seems to be relatively stable, he is not in any distress, he is chronically on 2 L nasal cannula at home. Patient denies any history of underlying malignancy. CT of the chest showed no evidence of malignancy but it didn't show evidence of emphysema. Patient was seen by nephrology in consultation, and workup is pending including serum parathyroid hormone. And vitamin D level. Patient was given fluids since admission, and his calcium seems to be trending down. Calcium is down to 11.6 from 13.9 on admission. Review of Systems Constitutional: Weakness and fatigue Head: Negative HEENT: Negative Pulmonary: History of COPD but relatively asymptomatic except for some dyspnea on exertion no cough no wheezing no chest pain no fever no chills no hemoptysis Cardiac: Negative GI: Negative Genitourinary: Negative Musculoskeletal: Negative Skin: Negative Urologic: Negative Hematologic patient is on Coumadin because of previous mitral valve replacement Past Medical History Past Medical History: Atrial Fibrillation, Heart Failure, COPD, GI Bleed, Hyperlipidemia, Pneumonia, Prostate Disorder, Renal Disease, Skin Disorder, Vascular Disorder Additional Past Medical History / Comment(s): GI bleed, gastritis, gastric ectasia, CKD stage III, past abdominal aortic aneurysm/had stent placed, artem icosities, PVD, past shingellis and occasionally will have R flank nerve pain, BPH. History of Any Multi-Drug Resistant Organisms: None Reported Past Surgical History: Cardiac Valve Replacement, Cholecystectomy, Heart Catheterization Additional Past Surgical History / Comment(s): Stent placed for lower abd aortic aneurysym, mitral valve replacement/bicuspid repair, EGD with ablation, colonoscopy, excision L cheek lesion/mass and lesion from scalp/all benign, Past Anesthesia/Blood Transfusion Reactions: No Reported Reaction Date of Last Stent Placement:: 2015 Smoking Status: Former smoker - Past Family History Mother Family Medical History: Myocardial Infarction ([place]) Additional Family Medical History / Comment(s): at a young age. Father Family Medical History: Hypertension Medications and Allergies Home Medications Medication Instructions Recorded Confirmed Type LORazepam [Ativan] 1 mg PO TID PRN 11/21/17 07/20/21 History Tamsulosin [Flomax] 0.4 mg PO DAILY 11/21/17 07/20/21 History Tiotropium 18 Mcg/Puff [Spiriva] 2 puff INHALATION RT-DAILY 11/21/17 07/20/21 History Bisoprolol Fumarate 5 mg PO DAILY 12 Days #12 tablet 10/07/18 07/20/21 Rx Furosemide [Lasix] 40 mg PO DAILY 06/30/19 07/20/21 History Atorvastatin [Lipitor] 10 mg PO HS 07/20/21 07/20/21 History Empagliflozin [Jardiance] 10 mg PO DAILY 07/20/21 07/20/21 History Ferrous Sulfate [Iron (65 MG 325 mg PO DAILY 07/20/21 07/20/21 History Elemental)] Fluticasone/Salmeterol [Advair 1 puff IN RT-BID 07/20/21 07/20/21 History 100-50 Diskus] Levalbuterol Hfa Inhaler [Xopenex 2 puff INHALATION RT-Q4H PRN MDD 4 07/20/21 07/20/21 History Hfa Inhaler] DOSES Warfarin Sodium [Jantoven] 2 mg PO SUMOTUFRSA 07/20/21 07/20/21 History Warfarin Sodium [Jantoven] 4 mg PO WETH 07/20/21 07/20/21 History predniSONE 5 mg PO DAILY 07/20/21 07/20/21 History Pantoprazole [Protonix] 40 mg PO AC-BRKFST #30 tab 07/21/21 Rx Allergies Allergy/AdvReac Type Severity Reaction Status Date / Time albuterol Allergy Rapid Verified 07/20/21 10:52 Heart Rate pain med (can't remember Allergy Hallucinati Uncoded 07/19/21 21:11 name) ons Patches on chest Allergy Swelling Uncoded 07/19/21 21:11 Physical Exam Vitals: Vital Signs Temp Pulse Resp BP Pulse Ox 07/21/21 12:39 98.2 F 73 18 133/68 99 07/21/21 09:22 97.7 F 61 21 123/60 98 07/21/21 07:50 98 07/21/21 03:49 56 L 16 96 07/21/21 01:23 65 18 07/21/21 00:00 97.9 F 65 18 115/56 95 07/20/21 20:00 97.8 F 68 20 132/71 91 L 07/20/21 17:34 65 18 118/59 98 07/20/21 15:18 74 18 Intake and Output 07/20/21 07/21/21 07/21/21 22:59 06:59 14:59 Intake Total 390 118 Balance 390 118 Intake: Intake, IV Titration 390 Amount Sodium Chloride 0.9% 1, 390 000 ml @ 130 mls/hr IV . Q7H42M COUNTS INCLUDE 234 BEDS AT THE [facility] Rx#:[id number] Oral 118 Other: Voiding Method Toilet Toilet Toilet # Voids 1 2 # Bowel Movements 1 Weight 64.864 kg Physical Exam: Revealed 81-year-old in no distress. On 2 L nasal cannula. Head: Atraumatic, normocephalic. HEENT:[Neck is supple.] [No neck masses.] [No thyromegaly.] [No JVD.] Chest: [Symmetrical chest expansion, diminished breath sounds at the bases no crackles or rhonchi or wheezes. Cardiac Exam: [Normal S1 and S2, no S3 gallop, 2/6 systolic murmur thought the precordium. Abdomen: [Soft, nontender, no megaly, no rebound, no guarding, normal bowel sounds.] Extremities: [No clubbing, no edema, no cyanosis.] Good pulses bilaterally. Neurological Exam: [No focal neurologic deficit.] Alert oriented 3. Psychiatric: Normal mood, affect and normal mental status examination. Skin: No rashes. [place] skeletal: No deformities and no limitation in range of motion. Results - Laboratory Findings CBC and BMP: 07/21/21 08:35 07/21/21 08:35 PT/INR, D-dimer PT 26.3 sec (9.0-12.0) H 07/21/21 08:35 INR 2.6 (<1.2) H 07/21/21 08:35 Abnormal lab findings: Abnormal Labs 07/19/21 07/19/21 07/19/21 21:30 21:30 21:30 RBC 4.01 L Hgb Hct MCV 100.8 H Lymphocytes # PT INR Carbon Dioxide 31 H BUN 36 H Creatinine 1.81 H Glucose 115 H POC Glucose (mg/dL) Calcium 13.9 H* Phosphorus Magnesium Troponin I 0.057 H* Total Protein Albumin Vitamin D 25-Hydroxy 07/20/21 07/20/21 07/20/21 00:28 06:20 06:20 RBC 3.35 L Hgb 11.1 L Hct 34.5 L MCV 103.1 H Lymphocytes # PT INR Carbon Dioxide BUN Creatinine Glucose POC Glucose (mg/dL) Calcium Phosphorus Magnesium Troponin I 0.064 H* 0.090 H* Total Protein Albumin Vitamin D 25-Hydroxy 07/20/21 07/20/21 07/20/21 06:20 06:20 15:10 RBC Hgb Hct MCV Lymphocytes # PT 25.4 H INR 2.5 H Carbon Dioxide 34 H BUN 38 H Creatinine 2.02 H Glucose POC Glucose (mg/dL) Calcium 12.6 H Phosphorus 4.6 H Magnesium 2.5 H Troponin I Total Protein 5.3 L Albumin 3.2 L Vitamin D 25-Hydroxy >200.0 H 07/20/21 07/20/21 07/21/21 16:46 20:18 08:35 RBC 3.41 L Hgb 11.3 L Hct 35.7 L MCV 104.8 H Lymphocytes # 0.8 L PT INR Carbon Dioxide BUN Creatinine Glucose POC Glucose (mg/dL) 116 H 107 H Calcium Phosphorus Magnesium Troponin I Total Protein Albumin Vitamin D 25-Hydroxy 07/21/21 07/21/21 07/21/21 08:35 08:35 08:35 RBC Hgb Hct MCV Lymphocytes # PT 26.3 H INR 2.6 H Carbon Dioxide BUN 41 H Creatinine 2.07 H Glucose POC Glucose (mg/dL) Calcium 11.6 H Phosphorus Magnesium Troponin I 0.052 H* Total Protein Albumin Vitamin D 25-Hydroxy - Diagnostic Findings CT scan - chest: image reviewed (As noted in HPI.) Assessment and Plan Assessment: Impression: Hypercalcemia, possibly related to excessive intake of Tums and vitamin D however the possibility of hyperparathyroidism and/or underlying malignancy needs to be evaluated. Chronic kidney disease Chronic hypoxic respiratory failure secondary to COPD, patient has gone stage III COPD History of mitral valve replacement Paroxysmal atrial fibrillation History of abdominal aortic aneurysm Recommendation: Continue present bronchodilators Resume home meds Hypercalcemia is being in [place] gated by nephrology on the case. Patient is to follow-up with Dr. Jett post discharge. We'll continue to follow as needed. Time with Patient: Greater than 30
--- NOTE | 2021-07-21 14:59 | P.DS ---
Providers Date of admission: 07/19/21 23:59 Expected date of discharge: 07/21/21 Attending physician: Sae Rodriguez Consults: 07/20/21 08:31 Consult Physician Routine Consulting Provider: Jim Farah Consult Reason/Comments: Elevated Troponin Do you want consulting provider notified?: Yes 07/20/21 08:33 Consult Physician Routine Consulting Provider: Antonina Mcpherson Consult Reason/Comments: Elevated BUN & Creatinine Do you want consulting provider notified?: Yes 07/21/21 10:04 Consult Physician Routine Consulting Provider: Sergo Mcdonald Consult Reason/Comments: kidney mass, bladder mass Do you want consulting provider notified?: Yes 07/21/21 10:31 Consult Physician Routine Consulting Provider: Eduardo Patrick Consult Reason/Comments: progressive and worsening dyspnea with emphysema Do you want consulting provider notified?: Yes Primary care physician: [facility] Course: Final Diagnoses: Hypercalcemia, etiology unclear, in a patient who had been consuming increased amounts at Tums recently. Workup in progress. Acute on chronic hypoxic respiratory failure, wears 2 L at home Acute on chronic renal failure, stage III, baseline around 1.2, secondary to hypovolemia, hypercalcemia Right atypical renal cyst, 1.7 cm, bladder diverticulum demonstrating wall irregularity, mucosal lesion not excluded, follow-up with urology outpatient Elevated troponins, echo pending Mild anemia, suspect dilutional Dehydration COPD, stable Alcohol use, Daily alcohol consumption of 1-2 glasses of wine Mitral valve replacement, prosthetic valve on Coumadin Hyperlipidemia PVD with history of stented lower abdominal aortic aneurysm History of nicotine dependence History of anxiety Hyperlipidemia Hospital course:This is an 81-year-old gentleman with history of COPD, chronic hypoxic respiratory failure-rays 2 L nasal cannula at home, hyperlipidemia,vascular disorder, abdominal aortic aneurysm with stent placement, Lin lozano, mitral valve replacement-prosthetic on Coumadin, anxiety, former nicotine dependence, daily wine intake, instructed to proceed to the ER with high serum calcium level of 13.9, increased weakness, reports feeling fatigued. Denies near syncope or syncope. Denies lightheadedness dizziness or focal deficits. Denies confusion, depression .Denies any nausea vomiting or diarrhea. Denies constipation. Denies muscle spasms,tremors. He reports he has been compliant with his medications except for yesterday he did not take his Lasix as he had multiple errands to run. Denies chest pain, palpitations or increasing shortness of breath. Hemoglobin on admission 13.3, currently down to 11.1, platelets 176, with IV fluid hydration. Calcium levels have decreased to 12.6. Reported having significant reflux and had been consuming extra Tums over the last 2-3 weeks, up to about 6 per day. Troponins 0.05, 0.064, 0.090, EKG currently unavailable. Creatinine 2.02, baseline 1.2. Consumes 1-2 glasses of wine daily. 07/21/2021 vitamin D-hydroxy greater than 200. Creatinine 2.07, calcium decreased to 11.6. Anticoagulated on Coumadin for prosthetic valve/A. fib with INR 2.6. Chest CT report severe upper lobe emphysematous changes progressive from prior study 2018. Complaining of worsening shortness of breath, indigestion, swallowing difficulties with "food getting stuck while attempting to swallow". Currently requiring 2-3 L of O2 nasal cannula maintaining O2 sats in the 90s. Ultrasound of kidneys/renal and bladder reported 1.7 hypoactive lesion right kidney does not meet the criteria for simple cyst, recent computed tomography scan demonstrated lesion to measure 25 Hounsfield units, bladder diverticulum demonstrating wall irregularity, mucosal lesion that excluded, cortical thinning. Urology consulted. Evaluated by cardiology, additional troponin added to series, decreased to 0.052. Denies chest pain, palpitations. Echo pending. Significant clinical improvement. Cleared by nephrology, recommending outpatient urology follow-up. Patient will be discharged home today in a stable condition with guarded prognosis, pending echo results. Close monitoring of calcium levels outpatient. Immunofixation serum / urine, parathyroid hormone, Bence Avalos protein, hemoglobin A1c pending. The impression and plan of care has been dictated as directed. : I performed a history and examination of this patient, discussed the same with the dictator. I agree with the dictator's note ,documented as a scribe. Any additional findings or plans will be noted. Patient Condition at Discharge: Stable Plan - Discharge Summary Discharge Rx Participant: No New Discharge Prescriptions: New Pantoprazole [Protonix] 40 mg PO AC-BRKFST #30 tab Continue LORazepam [Ativan] 1 mg PO TID PRN PRN Reason: Anxiety Tamsulosin [Flomax] 0.4 mg PO DAILY Tiotropium 18 Mcg/Puff [Spiriva] 2 puff INHALATION RT-DAILY Bisoprolol Fumarate 5 mg PO DAILY 12 Days #12 tablet Furosemide [Lasix] 40 mg PO DAILY Atorvastatin [Lipitor] 10 mg PO HS Fluticasone/Salmeterol [Advair 100-50 Diskus] 1 puff IN RT-BID Warfarin Sodium [Jantoven] 4 mg PO WETH Warfarin Sodium [Jantoven] 2 mg PO SUMOTUFRSA Ferrous Sulfate [Iron (65 MG Elemental)] 325 mg PO DAILY Empagliflozin [Jardiance] 10 mg PO DAILY Levalbuterol Hfa Inhaler [Xopenex Hfa Inhaler] 2 puff INHALATION RT-Q4H PRN MDD 4 DOSES PRN Reason: Shortness Of Breath predniSONE 5 mg PO DAILY Discontinued Calcium Carb-Vit D 500Mg-5Mcg [Oscal 500+D 5 Mcg (200 Iu)] 2 tab PO DAILY Discharge Medication List LORazepam [Ativan] 1 mg PO TID PRN 11/21/17 [History] Tamsulosin [Flomax] 0.4 mg PO DAILY 11/21/17 [History] Tiotropium 18 Mcg/Puff [Spiriva] 2 puff INHALATION RT-DAILY 11/21/17 [History] Bisoprolol Fumarate 5 mg PO DAILY 12 Days #12 tablet 10/07/18 [Rx] Furosemide [Lasix] 40 mg PO DAILY 06/30/19 [History] Atorvastatin [Lipitor] 10 mg PO HS 07/20/21 [History] Empagliflozin [Jardiance] 10 mg PO DAILY 07/20/21 [History] Ferrous Sulfate [Iron (65 MG Elemental)] 325 mg PO DAILY 07/20/21 [History] Fluticasone/Salmeterol [Advair 100-50 Diskus] 1 puff IN RT-BID 07/20/21 [History] Levalbuterol Hfa Inhaler [Xopenex Hfa Inhaler] 2 puff INHALATION RT-Q4H PRN MDD 4 DOSES 07/20/21 [History] Warfarin Sodium [Jantoven] 2 mg PO SUMOTUFRSA 07/20/21 [History] Warfarin Sodium [Jantoven] 4 mg PO WETH 07/20/21 [History] predniSONE 5 mg PO DAILY 07/20/21 [History] Pantoprazole [Protonix] 40 mg PO AC-BRKFST #30 tab 07/21/21 [Rx] Follow up Appointment(s)/Referral(s): Sergo Mcdonald MD [STAFF PHYSICIAN] - 1 Week Tan Bey Jr, DO [Primary Care Provider] - 3 Days Josseline Pendleton MD [STAFF PHYSICIAN] - 1 Week Ambulatory/Diagnostic Orders: Complete Blood Count w/diff [LAB.AMB] Time Frame: 07/24/21, Location: None Selected Activity/Diet/Wound Care/Special Instructions: [facility] - [phone] - call to see if they can help with housekeeping
[2021-07-21] MEDS ORDERED: WARFARIN 2 MG TAB PO SCH (18:00)
--- NOTE | 2021-07-21 18:06 | CA ---
Transthoracic Echo Report Name: Ankur Pereira Age: 81 Gender: M : 1940 Exam Date: 07/21/2021 11:02 Exam Location: [facility] Ht (in): 69 Wt (lb): 143 Ordering Physician: Michelle Ortiz Attending/Referring Phys: [id number], Diana [employer] Brenda Valderrama, [facility] Procedure CPT: Indications: LV function Cardiac Hx: Chronic Obstructive Pulmonary Disease. Atrial Fibrillation. Hyperlipidemia. Technical Quality: Good Contrast 1: Total Dose (mL): Contrast 2: Total Dose (mL): MEASUREMENTS (Male / Female) Normal Values 2D ECHO LV Diastolic Diameter PLAX 5.4 cm 4.2 - 5.9 / 3.9 - 5.3 cm LV Systolic Diameter PLAX 4.6 cm IVS Diastolic Thickness 1.2 cm 0.6 - 1.0 / 0.6 - 0.9 cm LVPW Diastolic Thickness 1.3 cm 0.6 - 1.0 / 0.6 - 0.9 cm LV Relative Wall Thickness 0.5 RV Internal Dim ED PLAX 4.0 cm LA Systolic Diameter LX 5.4 cm 3.0 - 4.0 / 2.7 - 3.8 cm LA Volume 98.2 cm??? 18 - 58 / 22 - 52 cm??? M-MODE Aortic Root Diameter MM 4.1 cm AV Cusp Separation MM 1.7 cm DOPPLER AV Peak Velocity 127.1 cm/s AV Peak Gradient 6.5 mmHg AI Peak Velocity 313.4 cm/s AI Peak Gradient 39.3 mmHg AI Pressure Half Time 397.0 ms MV Peak Velocity 199.5 cm/s MV Peak Gradient 15.9 mmHg MV Mean Velocity 77.8 cm/s MV Mean Gradient 3.5 mmHg MV Velocity Time Integral 49.5 cm MV Area PHT 2.8 cm??? MV Deceleration Time 181.2 ms TR Peak Velocity 348.8 cm/s TR Peak Gradient 48.7 mmHg Right Ventricular Systolic Press 53.7 mmHg PI Peak Gradient 38.4 mmHg FINDINGS Left Ventricle Left ventricular ejection fraction is estimated at 35-40 %. Left ventricular cavity size normal. Mild concentric left ventricular hypertrophy. Right Ventricle Moderate right ventricular dilatation. Moderate pulmonary hypertension. Right Atrium Normal right atrial size. Left Atrium Severely increased left atrial diameter. Severely increased left atrial volume. Mildly increased left atrial area. Mitral Valve Bioprosthetic mitral valve. Moderate mitral annular calcification. Mitral valve thickened. Aortic Valve Focal thickening of the aortic valve cusps. [id number] aortic regurgitation. Tricuspid Valve Mild tricuspid regurgitation. Pulmonic Valve Mild pulmonic regurgitation. Pericardium Normal pericardium. Aorta Moderate aortic dilatation at the level of the sinuses of valsalva (41 mm). CONCLUSIONS Impaired LV function with EF around 40% Dilated right ventricle with normal function Bioprosthetic mitral valve Moderate to severe aortic regurgitation Previewed by: Dr. Jim Farah MD (Electronically Signed) Final Date: 21 Jul 2021 18:05
== END 2021-07-21 18:02 | disposition home or self-care (01) | DRG 640 ==
LOC: EC 20:50 → 3SCARD 23:59
PROVIDERS: ADMIT Family Medicine; ATTEND Family Medicine
DX: E83.52 Hypercalcemia (principal); J96.21 Acute and chronic respiratory failure with hypoxia; N17.9 Acute kidney failure, unspecified; I13.0 Hypertensive heart and chronic kidney disease with heart failure and stage 1 through stage 4 chronic kidney disease, or unspecified chronic kidney disease; I42.9 Cardiomyopathy, unspecified; J43.9 Emphysema, unspecified; D64.9 Anemia, unspecified; E86.0 Dehydration; I48.0 Paroxysmal atrial fibrillation; I50.9 Heart failure, unspecified; I73.9 Peripheral vascular disease, unspecified; K21.9 Gastro-esophageal reflux disease without esophagitis; N18.30 Chronic kidney disease, stage 3 unspecified; N28.1 Cyst of kidney, acquired; N40.0 Benign prostatic hyperplasia without lower urinary tract symptoms; R13.10 Dysphagia, unspecified; T47.1X5A Adverse effect of other antacids and anti-gastric-secretion drugs, initial encounter; R77.8 Other specified abnormalities of plasma proteins; I27.21 Secondary pulmonary arterial hypertension; I08.2 Rheumatic disorders of both aortic and tricuspid valves; I37.1 Nonrheumatic pulmonary valve insufficiency; X58.XXXA Exposure to other specified factors, initial encounter; E86.1 Hypovolemia; E78.5 Hyperlipidemia, unspecified; I83.90 Asymptomatic varicose veins of unspecified lower extremity; F41.9 Anxiety disorder, unspecified; Z95.2 Presence of prosthetic heart valve; Z90.49 Acquired absence of other specified parts of digestive tract; Z95.9 Presence of cardiac and vascular implant and graft, unspecified; Z88.6 Allergy status to analgesic agent; Z88.8 Allergy status to other drugs, medicaments and biological substances; Z79.82 Long term (current) use of aspirin; Z79.899 Other long term (current) drug therapy; Z79.51 Long term (current) use of inhaled steroids; Z79.84 Long term (current) use of oral hypoglycemic drugs; Z79.01 Long term (current) use of anticoagulants; Z86.19 Personal history of other infectious and parasitic diseases; Z87.891 Personal history of nicotine dependence; Z82.49 Family history of ischemic heart disease and other diseases of the circulatory system; Z87.19 Personal history of other diseases of the digestive system; Z87.01 Personal history of pneumonia (recurrent); Z86.79 Personal history of other diseases of the circulatory system
CPT/HCPCS: 36415; 71250; 76770; 80048; 80053; 81003; 82306; 82652; 83036; 83735; 83970; 84100; 84484; 85025; 85610; 86334; 86335; 93005; 93306; 94640; 94760; 96360; 96361; 99284

== ENCOUNTER 2021-11-28 14:58 | Inpatient (IN) | payer MEDICARE, BC ==
[2021-11-28] MEDS ORDERED: IPRATROPIUM-ALBUTEROL 3 ML NEB INHALATION STA (15:18)
[2021-11-28] MEDS ORDERED: methylPREDNISolone SOD SUCCI 125 MG/2 ML VIAL IV STA (15:18)
--- NOTE | 2021-11-28 15:39 | ED ---
General Adult HPI - General Chief complaint: Shortness of Breath Stated complaint: COPD exacerbation Time Seen by Provider: 11/28/21 15:10 Source: patient, EMS, RN notes reviewed, old records reviewed Mode of arrival: EMS Limitations: no limitations - History of Present Illness Initial comments: Patient is an 81-year-old male who was sent in by his PCP for possible pneumonia in the right upper lobe. Patient has been having worsening nonproductive cough, shortness of breath over the last 2 weeks. Apparently x-ray outside facility showed a right upper lobe pneumonia. Was sent in for further evaluation and admission. Patient does have a history of atrial fibrillation on Coumadin, COPD, heart failure. Is compliant with all medications. Has noticed increased worsening shortness breath last 2 weeks. Has also noticed increased worsening lower extremity edema over these last 2 weeks. Denies worsening PND or orthopnea. Please flat at baseline. Denies any chest pain. Denies any fevers or chills. Endorses mild rhinorrhea. Denies sick contacts. He received the Covid vaccine. Denies any nausea or vomiting. Has no abdominal pain. No l ightheadedness. Some increased fatigue. Presents for further evaluation at this time.Patient is on 2 L nasal cannula oxygen at baseline. - Related Data Home Medications Medication Instructions Recorded Confirmed LORazepam [Ativan] 1 mg PO TID PRN 11/21/17 11/28/21 Tamsulosin [Flomax] 0.4 mg PO DAILY 11/21/17 11/28/21 Furosemide [Lasix] 40 mg PO Q48H 06/30/19 11/28/21 Atorvastatin [Lipitor] 10 mg PO HS 07/20/21 11/28/21 Fluticasone Propion/Salmeterol 1 puff IN RT-BID 07/20/21 11/28/21 [Advair 100-50 Diskus] Levalbuterol Hfa Inhaler [Xopenex 2 puff INHALATION RT-Q4H PRN MDD 07/20/21 11/28/21 Hfa Inhaler] 4X DAILY Warfarin Sodium [Jantoven] 2 mg PO SUMOTUFRSA 07/20/21 11/28/21 Warfarin Sodium [Jantoven] 4 mg PO WETH 07/20/21 11/28/21 predniSONE 5 mg PO DAILY 07/20/21 11/28/21 Ascorbic Acid [Vitamin C] 1,000 mg PO DAILY 11/28/21 11/28/21 Cyanocobalamin (Vitamin B-12) 1,000 mcg PO DAILY 11/28/21 11/28/21 [Vitamin B-12] Furosemide [Lasix] 20 mg PO Q48H 11/28/21 11/28/21 LORazepam [Ativan] 0.5 mg PO HS 11/28/21 11/28/21 Tiotropium 2.5 Mcg/Puff [Spiriva 2 puff INHALATION RT-DAILY 11/28/21 11/28/21 Respimat 2.5 Mcg] Previous Rx's Medication Instructions Recorded Bisoprolol Fumarate 5 mg PO DAILY 12 Days #12 tablet 10/07/18 Allergies Allergy/AdvReac Type Severity Reaction Status Date / Time albuterol Allergy Rapid Verified 11/28/21 18:11 Heart Rate empagliflozin Allergy Dyspnea Verified 11/28/21 18:49 [From Jardiance] pain med (can't remember Allergy Hallucinati Uncoded 11/28/21 15:12 name) ons Patches on chest Allergy Swelling Uncoded 11/28/21 15:12 Review of Systems ROS Statement: Those systems with pertinent positive or pertinent negative responses have been documented in the HPI. Review of Systems: CONST: Denies fever EYES: Denies blurry vision ENT: Endorses nasal congestion C/V: Denies Chest pain RESP: Endorses shortness of breath GI: Denies abdominal pain : Denies dysuria SKIN: Denies rash. MSK: Denies joint pain. NEURO: Denies headache ROS Other: All systems not noted in ROS Statement are negative. Past Medical History Past Medical History: Atrial Fibrillation, Heart Failure, COPD, GI Bleed, Hyperlipidemia, Pneumonia, Prostate Disorder, Renal Disease, Skin Disorder, Vascular Disorder Additional Past Medical History / Comment(s): GI bleed, gastritis, gastric ectasia, CKD stage III, past abdominal aortic aneurysm/had stent placed, v aricosities, PVD, past shingellis and occasionally will have R flank nerve pain, BPH. History of Any Multi-Drug Resistant Organisms: None Reported Past Surgical History: Cardiac Valve Replacement, Cholecystectomy, Heart Catheterization Additional Past Surgical History / Comment(s): Stent placed for lower abd aortic aneurysym, mitral valve replacement/bicuspid repair, EGD with ablation, colonoscopy, excision L cheek lesion/mass and lesion from scalp/all benign, Past Anesthesia/Blood Transfusion Reactions: No Reported Reaction Date of Last Stent Placement:: 2015 Past Psychological History: Anxiety Smoking Status: Former smoker - Past Family History Mother Family Medical History: Myocardial Infarction ([place]) Additional Family Medical History / Comment(s): at a young age. Father Family Medical History: Hypertension General Exam - General Exam Comments Initial Comments: General: Appears in no acute distress. HEAD: Normal with no signs of head trauma. EYES: PERRLA, EOMI, conjunctiva normal, no discharge. ENT: Hearing grossly intact, normal oropharynx. RESPIRATORY: Bilateral index or expiratory wheezing. 94-95% on baseline 2 L nasal cannula. Mild increased work of breathing in the low 20s. No obvious rhonchi are appreciated. C/V: Regular rate and rhythm. S1 and S2 auscultated, 1+ pitting edema bilateral lower extremities which is worse per patient over the last 2 weeks. It is symmetrical., peripheral pulses 2+ and intact throughout ABD: Abd is soft, nontender, nondistended EXT: Normal range of motion, no obvious deformity SKIN: No rashes or lesions observed on exposed skin. NEURO: Alert and oriented 4. Limitations: no limitations Course Vital Signs 11/28/21 11/28/21 11/28/21 15:00 15:01 16:07 Temperature 98.2 F Pulse Rate 100 100 Respiratory 22 24 Rate Blood Pressure 126/91 O2 Sat by Pulse 94 L Oximetry 11/28/21 11/28/21 16:17 18:00 Temperature Pulse Rate 85 86 Respiratory 20 Rate Blood Pressure 124/68 O2 Sat by Pulse 93 L Oximetry Medical Decision Making - Medical Decision Making Based on the patient's presentation and physical exam, I'm concerned for possible upper respiratory infection for the patient. Also appears be having a COPD exacerbation at this time. Cannot rule out heart failure exacerbation with his extensive history of heart failure worsening pitting edema. I'm no access to the patient's outpatient x-ray. We'll repeat chest x-ray, as well as obtaining cardio pulmonary workup. He was in agreement this plan. He'll be sent back to treated for COPD exacerbation with IV steroids and breathing treatments. Patient was in agreement this plan. Vital signs are within acceptable limits at this time.Will be connected to continuous cardiac monitoring with continuous pulse oximetry. Was placed on his home 2 L nasal cannula. EKG shows no signs of acute ischemia. Chest x-ray shows pulmonary fibrosis, COPD as well as mild heart failure and pulmonary vascular congestion. Lab oratory studies are remarkable for a INR 3.3. Troponin is slightly elevated to 0.080 which is likely secondary to COPD exacerbation and heart failure exacerbation as the patient does have a BNP elevated at 10,000. Remainder of the labs are unremarkable. Covid influenza negative. I discussed results with the patient. I would like to continue treating for COPD as well as CHF. Will be started on IV Lasix as well as IV steroids and continue breathing treatments. He was in agreement this plan. Cardiology was consulted. Pulmonology was consulted. I spoke with the admitting physician, Dr. Bey who accepted the patient. Patient was admitted in stable condition. Vital signs remain within normal limits. Echo was ordered. We will continue to trend the troponin, we'll continue his home Coumadin. - Lab Data Result diagrams: 11/28/21 15:39 11/28/21 15:39 Lab Results 11/28/21 11/28/21 11/28/21 Range/Units 15:39 15:39 15:39 WBC 4.9 (3.8-10.6) k/uL RBC 4.06 L (4.30-5.90) m/uL Hgb 12.7 L (13.0-17.5) gm/dL Hct 39.7 (39.0-53.0) % MCV 98.0 (80.0-100.0) fL MCH 31.2 (25.0-35.0) pg MCHC 31.9 (31.0-37.0) g/dL RDW 13.4 (11.5-15.5) % Plt Count 254 (150-450) k/uL MPV 8.7 Neutrophils % 77 % Lymphocytes % 10 % Monocytes % 5 % Eosinophils % 4 % Basophils % 1 % Neutrophils # 3.8 (1.3-7.7) k/uL Lymphocytes # 0.5 L (1.0-4.8) k/uL Monocytes # 0.2 (0-1.0) k/uL Eosinophils # 0.2 (0-0.7) k/uL Basophils # 0.0 (0-0.2) k/uL Hypochromasia Slight PT 33.3 H (9.0-12.0) sec INR 3.3 H (<1.2) APTT 34.8 H (22.0-30.0) sec Sodium 139 (137-145) mmol/L Potassium 3.8 (3.5-5.1) mmol/L Chloride 99 (98-107) mmol/L Carbon Dioxide 28 (22-30) mmol/L Anion Gap 12 mmol/L BUN 18 (9-20) mg/dL Creatinine 1.19 (0.66-1.25) mg/dL Est GFR (CKD-EPI)AfAm 66 (>60 ml/min/1.73 sqM) Est GFR (CKD-EPI)NonAf 57 (>60 ml/min/1.73 sqM) Glucose 107 H (74-99) mg/dL Calcium 8.8 (8.4-10.2) mg/dL Magnesium 1.8 (1.6-2.3) mg/dL Total Bilirubin 0.7 (0.2-1.3) mg/dL AST 27 (17-59) U/L ALT 19 (4-49) U/L Alkaline Phosphatase 81 (38-126) U/L Troponin I (0.000-0.034) ng/mL NT-Pro-B Natriuret Pep pg/mL Total Protein 6.2 L (6.3-8.2) g/dL Albumin 3.7 (3.5-5.0) g/dL Coronavirus (PCR) (Not Detectd) Influenza Type A RNA (Not Detectd) Influenza Type B (PCR) (Not Detectd) 11/28/21 11/28/21 11/28/21 Range/Units 15:39 15:39 15:39 WBC (3.8-10.6) k/uL RBC (4.30-5.90) m/uL Hgb (13.0-17.5) gm/dL Hct (39.0-53.0) % MCV (80.0-100.0) fL MCH (25.0-35.0) pg MCHC (31.0-37.0) g/dL RDW (11.5-15.5) % Plt Count (150-450) k/uL MPV Neutrophils % % Lymphocytes % % Monocytes % % Eosinophils % % Basophils % % Neutrophils # (1.3-7.7) k/uL Lymphocytes # (1.0-4.8) k/uL Monocytes # (0-1.0) k/uL Eosinophils # (0-0.7) k/uL Basophils # (0-0.2) k/uL Hypochromasia PT (9.0-12.0) sec INR (<1.2) APTT (22.0-30.0) sec Sodium (137-145) mmol/L Potassium (3.5-5.1) mmol/L Chloride (98-107) mmol/L Carbon Dioxide (22-30) mmol/L Anion Gap mmol/L BUN (9-20) mg/dL Creatinine (0.66-1.25) mg/dL Est GFR (CKD-EPI)AfAm (>60 ml/min/1.73 sqM) Est GFR (CKD-EPI)NonAf (>60 ml/min/1.73 sqM) Glucose (74-99) mg/dL Calcium (8.4-10.2) mg/dL Magnesium (1.6-2.3) mg/dL Total Bilirubin (0.2-1.3) mg/dL AST (17-59) U/L ALT (4-49) U/L Alkaline Phosphatase (38-126) U/L Troponin I 0.080 H* (0.000-0.034) ng/mL NT-Pro-B Natriuret Pep 22386 pg/mL Total Protein (6.3-8.2) g/dL Albumin (3.5-5.0) g/dL Coronavirus (PCR) (Not Detectd) Influenza Type A RNA Not Detected (Not Detectd) Influenza Type B (PCR) Not Detected (Not Detectd) 11/28/21 Range/Units 15:39 WBC (3.8-10.6) k/uL RBC (4.30-5.90) m/uL Hgb (13.0-17.5) gm/dL Hct (39.0-53.0) % MCV (80.0-100.0) fL MCH (25.0-35.0) pg MCHC (31.0-37.0) g/dL RDW (11.5-15.5) % Plt Count (150-450) k/uL MPV Neutrophils % % Lymphocytes % % Monocytes % % Eosinophils % % Basophils % % Neutrophils # (1.3-7.7) k/uL Lymphocytes # (1.0-4.8) k/uL Monocytes # (0-1.0) k/uL Eosinophils # (0-0.7) k/uL Basophils # (0-0.2) k/uL Hypochromasia PT (9.0-12.0) sec INR (<1.2) APTT (22.0-30.0) sec Sodium (137-145) mmol/L Potassium (3.5-5.1) mmol/L Chloride (98-107) mmol/L Carbon Dioxide (22-30) mmol/L Anion Gap mmol/L BUN (9-20) mg/dL Creatinine (0.66-1.25) mg/dL Est GFR (CKD-EPI)AfAm (>60 ml/min/1.73 sqM) Est GFR (CKD-EPI)NonAf (>60 ml/min/1.73 sqM) Glucose (74-99) mg/dL Calcium (8.4-10.2) mg/dL Magnesium (1.6-2.3) mg/dL Total Bilirubin (0.2-1.3) mg/dL AST (17-59) U/L ALT (4-49) U/L Alkaline Phosphatase (38-126) U/L Troponin I (0.000-0.034) ng/mL NT-Pro-B Natriuret Pep pg/mL Total Protein (6.3-8.2) g/dL Albumin (3.5-5.0) g/dL Coronavirus (PCR) Not Detected (Not Detectd) Influenza Type A RNA (Not Detectd) Influenza Type B (PCR) (Not Detectd) - EKG Data -: EKG Interpreted by Me EKG Comments: 12-lead Electrocardiogram Interpretation Note EKG was reviewed and interpreted by myself. 12-lead ECG performed at 1601 is interpreted by me as revealing atrial fibrillation, rate controlled at a rate of 95 beats per minute. Left axis deviation. [place] interval is unobtainable, QRS duration is 129 ms, QTc is 429 ms.. There were no ST or T wave abnormalities to suggest myocardial ischemia or injury. R wave progression across the precordium was satisfactory. By my interpretation this EKG is non-diagnostic for acute ischemia. Disposition Clinical Impression: Congestive heart failure, COPD exacerbation, Elevated troponin Disposition: ADMITTED IP TO THIS HOSP Condition: Stable Time of Disposition: 17:00
[2021-11-28] MEDS ORDERED: IPRATROPIUM 0.5 MG/2.5 ML NEBU INHALATION STA (15:56)
[2021-11-28] MEDS ORDERED: SYMBICORT 160-4.5 MCG INHALER INHALATION STA (15:57)
[2021-11-28 16:07] LABS: Basophils % (A) 1 %; Eosinophils # (A) 0.2 k/uL (0-0.7); Eosinophils % (A) 4 %; HCT 39.7 % (39.0-53.0); HGB 12.7 gm/dL (13.0-17.5); Hypochromasia Slight; Lymphocytes # (A) 0.5 k/uL (1.0-4.8); Lymphocytes % (A) 10 %; MCH 31.2 pg (25.0-35.0); MCHC 31.9 g/dL (31.0-37.0); Mean Platelet Volume 8.7; Monocytes # (A) 0.2 k/uL (0-1.0); Monocytes % (A) 5 %; Neutrophils # (A) 3.8 k/uL (1.3-7.7); Neutrophils % (A) 77 %; Platelet Count 254 k/uL (150-450); RBC 4.06 m/uL (4.30-5.90); RDW 13.4 % (11.5-15.5); WBC 4.9 k/uL (3.8-10.6)
[2021-11-28 16:16] LABS: INR 3.3 (<1.2); Partial Thromboplastin Time 34.8 sec (22.0-30.0); Prothrombin Time 33.3 sec (9.0-12.0)
[2021-11-28 16:23] LABS: Albumin 3.7 g/dL (3.5-5.0); Potassium 3.8 mmol/L (3.5-5.1); Total Protein 6.2 g/dL (6.3-8.2)
[2021-11-28 16:24] LABS: Calcium 8.8 mg/dL (8.4-10.2); Magnesium 1.8 mg/dL (1.6-2.3); Total Bilirubin 0.7 mg/dL (0.2-1.3)
[2021-11-28] MEDS ORDERED: ASPIRIN 81 MG PO STA (16:45)
--- NOTE | 2021-11-28 16:45 | XR ---
EXAMINATION TYPE: XR chest 2V DATE OF EXAM: 11/28/2021 COMPARISON: 05/26/2020 HISTORY: Short of breath TECHNIQUE: FINDINGS: There is cardiac valve surgery. There are sternal wires. There is coarsening of the interst itial markings. There is minimal blunting of the costophrenic angles. There is mild pulmonary congest ion. IMPRESSION: Pulmonary vascularity appears slightly increased compared to old exams. There is pulmonar y fibrosis and COPD. Mild heart failure is possible.
[2021-11-28] MEDS ORDERED: FUROSEMIDE 10 MG/ML 4 ML VIAL IV STA (17:20)
[2021-11-28] MEDS ORDERED: NALOXONE 0.4 MG/ML 1 ML VIAL IV PRN (17:21)
[2021-11-28] MEDS ORDERED: IPRATROPIUM-ALBUTEROL 3 ML NEB INHALATION PRN (18:06)
[2021-11-28] MEDS ORDERED: DEXTROSE 50% SYRINGE 50 ML IVP PRN ×2 (18:07)
[2021-11-28] MEDS ORDERED: PANTOPRAZOLE 40 MG/10 ML VIAL IVP SCH (18:15)
[2021-11-28] MEDS: TAMSULOSIN 0.4 MG CAP.ER.24H PO SCH (18:18)
[2021-11-28 18:45] LABS: Glucose,Whole Blood 108 mg/dL (70-110)
[2021-11-28] MEDS ORDERED: NON FORMULARY DRUG (Levalbuterol Hfa Inhaler 200 PUFF/9 GM Gm) INHALATION PRN (18:55)
[2021-11-28] MEDS ORDERED: WARFARIN 0.5 MG TAB PO ONE (20:00)
[2021-11-28] MEDS: IPRATROPIUM-ALBUTEROL 3 ML NEB INHALATION SCH (20:20)
[2021-11-28] MEDS: SYMBICORT 80-4.5 MCG INHALER INHALATION SCH (20:43)
[2021-11-28] MEDS: methylPREDNISolone SOD SUCCI 40 MG/ML 1 ML VIAL IV SCH (21:51)
[2021-11-28] MEDS: FUROSEMIDE 10 MG/ML 4 ML VIAL IV SCH (21:51)
[2021-11-28] MEDS: ATORVASTATIN 10 MG TAB PO SCH (21:51)
[2021-11-28] MEDS: INSULIN ASPART (NovoLOG) 100 UNIT/ML VIAL SQ SCH (21:52)
[2021-11-29] MEDS ORDERED: IPRATROPIUM 0.5 MG/2.5 ML NEBU INHALATION SCH
[2021-11-29 06:01] LABS: Glucose,Whole Blood 175 mg/dL (70-110)
[2021-11-29] MEDS: INSULIN ASPART (NovoLOG) 100 UNIT/ML VIAL SQ SCH ×4 (06:42→22:37)
[2021-11-29 07:51] LABS: INR 3.1 (<1.2); Prothrombin Time 31.2 sec (9.0-12.0)
[2021-11-29 07:54] LABS: Calcium 8.4 mg/dL (8.4-10.2); Potassium 3.9 mmol/L (3.5-5.1)
[2021-11-29] MEDS: SYMBICORT 80-4.5 MCG INHALER INHALATION SCH ×2 (08:17→20:07)
[2021-11-29] MEDS: IPRATROPIUM-ALBUTEROL 3 ML NEB INHALATION SCH ×4 (08:17→20:07)
[2021-11-29 08:37] LABS: Basophils % (A) 1 %; Eosinophils % (A) 0 %; HGB 12.8 gm/dL (13.0-17.5); Hypochromasia Moderate; Lymphocytes # (A) 0.4 k/uL (1.0-4.8); Lymphocytes % (A) 13 %; MCH 32.3 pg (25.0-35.0); Macrocytosis Slight; Mean Platelet Volume 9.2; Monocytes # (A) 0.1 k/uL (0-1.0); Monocytes % (A) 4 %; Neutrophils # (A) 2.3 k/uL (1.3-7.7); Neutrophils % (A) 81 %; Platelet Count 184 k/uL (150-450); RBC 3.96 m/uL (4.30-5.90); RDW 13.2 % (11.5-15.5); WBC 2.9 k/uL (3.8-10.6)
[2021-11-29] MEDS: FUROSEMIDE 10 MG/ML 4 ML VIAL IV SCH ×2 (09:09→20:17)
[2021-11-29] MEDS: TAMSULOSIN 0.4 MG CAP.ER.24H PO SCH (09:09)
[2021-11-29] MEDS: methylPREDNISolone SOD SUCCI 40 MG/ML 1 ML VIAL IV SCH ×2 (09:09→20:18)
[2021-11-29] MEDS: PANTOPRAZOLE 40 MG TABLET PO SCH (09:10)
--- NOTE | 2021-11-29 11:29 | P.CRDCN ---
History of Present Illness History of present illness: This is a 81-year-old male with a past medical history significant for COPD with home oxygen use, tissue mitral valve replacement and tricuspid valve repair of [facility] in 2015, non-ischemic cardiomyopathy, paroxysmal atrial fibrillation on warfarin, hypertension, AAA, COPD, former tobacco use, pulmonary hypertension and hyperlipidemia. Patient follows in the office with Dr. Kramer. We have been asked to see the patient in consultation for congestive heart failure. Patient states he presented to the hospital with worsening shortness of breath, cough, generalized fatigue progressively worsening for 1 week. He states over the past week he is unable to walk his usual mile walk, or do his daily activities secondary to shortness of breath and fatigue. He also noticed worsening LE edema. He presented to his PCP and recommended patient be evaluated in the ER. He denies any changes to his medications, he does adhere to low salt diet. He denies any chest discomfort, lightheadedness, dizziness, syncope or near syncope. He denies any orthopnea or PND. He is able to lay flat in bed. He was started on IV Lasix and Duonebs in the ER with improvement in breathing. DIAGNOSTICS: * EKG sinur rhythm HR 95 with PACs, left anterior fasicular block * Telemetry revealed- sinus rhythm with PACs * Chest xray pulmonary vascularity increased. pulmonary fibrosis and COPD reported. * Laboratory data: Troponin 2.08, 0.8, 0.07, proBNP 10,400, sodium 141, potassium 3.9, BUN 22, serum creatinine 1.2, INR 3.1, is WBC 2.9, and 12.8, platelets 184 * Echocardiogram 07/2021 revealed EF of 3540 percent by cystic mitral valve, moderate severe aortic regurgitation * Current home cardiac medications include Bisoprolol 5mg daily, Lipitor 10 mg at night, Jardiance 10 mg daily, Lasix 40 mg daily, warfarin 4 mg Saturday and and 2 mg Saturday * Most recent echocardiogram obtained in May 2020 revealed ejection fraction 45-50%, mild LVH, mild aortic regurgitation, biological mitral valve prosthesis, annuloplasty ring tricuspid valve prosthesis, severe pulmonary artery hypertension REVIEW OF SYSTEMS: At the time of my exam: CONSTITUTIONAL: Denies fever or chills. HEENT: Denies blurred vision, vision changes, or eye pain. Denies hemoptysis CARDIOVASCULAR: Denies chest pain. Denies orthopnea. Denies PND. Denies palpitations RESPIRATORY: +shortness of breath +cough GASTROINTESTINAL: Denies abdominal pain. Denies nausea or vomiting. HEMATOLOGIC: Denies bleeding disorders. GENITOURINARY: Denies any blood in urine. SKIN: Denies pruitis. Denies rash. PHYSICAL EXAM: VITAL SIGNS: Reviewed. GENERAL: Well-developed in no acute distress. HEENT: Head is normocephalic. Pupils are equal, round. Sclerae anicteric. Mucous membranes of the mouth are moist. Neck supple. No JVD LUNGS: Respirations even and unlabored. Lungs with decreased air exchanged bilateral bases, expiratory wheezing noted HEART: Regular rate and rhythm. S1 and S2 heard. Soft systolic murmur noted. ABDOMEN: Soft. Nondistended. Nontender. EXTREMITIES: Normal range of motion. No clubbing or cyanosis. Peripheral pulses intact. 1+ bilateral lower extremity edema NEUROLOGIC: Awake and alert. Oriented x 3. ASSESSMENT: Acute on chronic heart failure with reduced ejection fraction Paroxysmal atrial fibrillation on coumadin Abnormal troponins, likely secondary to congestive heart failure Non-ischemic cardiomyopathy COPD exacerbation with home oxygen use History of mitral valve replacement in 2015 History of tricuspid valve repair in 2015 History of AAA Hyperlipidemia PLAN: Obtain 2D echocardiogram to evaluate LV function Continue IV Lasix 40mg BID Monitor I/Os daily weights, renal function and electrolytes Continue anticoagulation with coumadin. monitor INR Continue statin Continue telemetry monitoring Further recommendations pending patient course Nurse practitioner note has been reviewed by physician. Signing provider agrees with the documented findings, assessment, and plan of care. Past Medical History Past Medical History: Atrial Fibrillation, Heart Failure, COPD, GI Bleed, Hyperlipidemia, Pneumonia, Prostate Disorder, Renal Disease, Skin Disorder, Vascular Disorder Additional Past Medical History / Comment(s): GI bleed, gastritis, gastric ectasia, CKD stage III, past abdominal aortic aneurysm/had stent placed, varicosities, PVD, past shingellis and occasionally will have R flank nerve pain, BPH. History of Any Multi-Drug Resistant Organisms: None Reported Past Surgical History: Cardiac Valve Replacement, Cholecystectomy, Heart Catheterization Additional Past Surgical History / Comment(s): Stent placed for lower abd aortic aneurysym, mitral valve replacement/bicuspid repair, EGD with ablation, colono scopy, excision L cheek lesion/mass and lesion from scalp/all benign, Past Anesthesia/Blood Transfusion Reactions: No Reported Reaction Date of Last Stent Placement:: 2015 Past Psychological History: Anxiety Smoking Status: Former smoker - Past Family History Mother Family Medical History: Myocardial Infarction ([place]) Additional Family Medical History / Comment(s): at a young age. Father Family Medical History: Hypertension Medications and Allergies Home Medications Medication Instructions Recorded Confirmed Type LORazepam [Ativan] 1 mg PO TID PRN 11/21/17 11/28/21 History Tamsulosin [Flomax] 0.4 mg PO DAILY 11/21/17 11/28/21 History Bisoprolol Fumarate 5 mg PO DAILY 12 Days #12 tablet 10/07/18 11/28/21 Rx Furosemide [Lasix] 40 mg PO Q48H 06/30/19 11/28/21 History Atorvastatin [Lipitor] 10 mg PO HS 07/20/21 11/28/21 History Fluticasone Propion/Salmeterol 1 puff IN RT-BID 07/20/21 11/28/21 History [Advair 100-50 Diskus] Levalbuterol Hfa Inhaler [Xopenex 2 puff INHALATION RT-Q4H PRN MDD 07/20/2111/03 History Hfa Inhaler] 4X DAILY Warfarin Sodium [Jantoven] 2 mg PO SUMOTUFRSA 07/20/21 11/28/21 History Warfarin Sodium [Jantoven] 4 mg PO WETH 07/20/21 11/28/21 History predniSONE 5 mg PO DAILY 07/20/21 11/28/21 History Ascorbic Acid [Vitamin C] 1,000 mg PO DAILY 11/28/21 11/28/21 History Cyanocobalamin (Vitamin B-12) 1,000 mcg PO DAILY 11/28/21 11/28/21 History [Vitamin B-12] Furosemide [Lasix] 20 mg PO Q48H 11/28/21 11/28/21 History LORazepam [Ativan] 0.5 mg PO HS 11/28/21 11/28/21 History Tiotropium 2.5 Mcg/Puff [Spiriva 2 puff INHALATION RT-DAILY 11/28/21 11/28/21 History Respimat 2.5 Mcg] Allergies Allergy/AdvReac Type Severity Reaction Status Date / Time albuterol Allergy Rapid Verified 11/28/21 18:11 Heart Rate empagliflozin Allergy Dyspnea Verified 11/28/21 18:49 [From Jardiance] pain med (can't remember Allergy Hallucinati Uncoded 11/28/21 15:12 name) ons Patches on chest Allergy Swelling Uncoded 11/28/21 15:12 Physical Exam Vitals: Vital Signs Temp Pulse Pulse Resp BP BP Pulse Ox 11/29/21 04:00 97.5 F L 97 18 137/75 93 L 11/29/21 02:00 86 18 11/29/21 00:00 97.8 F 86 18 116/72 92 L 11/28/21 20:15 98.0 F 103 H 18 118/70 92 L 11/28/21 20:00 98.0 F 103 H 18 118/70 92 L 11/28/21 18:00 86 20 124/68 93 L 11/28/21 16:17 85 11/28/21 16:07 100 11/28/21 15:01 98.2 F 100 24 126/91 94 L 11/28/21 15:00 22 Intake and Output 11/28/21 11/29/21 11/29/21 22:59 06:59 14:59 Output Total 575 Balance -575 Output: Urine 575 Other: Voiding Method Urinal Urinal # Voids 2 Weight 65.771 kg 65.6 kg Results 11/29/21 07:20 11/29/21 07:20 Cardiac Enzymes 11/28/21 11/28/21 11/28/21 Range/Units 15:39 15:39 18:24 AST 27 (17-59) U/L Troponin I 0.080 H* 0.082 H* (0.000-0.034) ng/mL 11/28/21 Range/Units 21:35 AST (17-59) U/L Troponin I 0.078 H* (0.000-0.034) ng/mL Coagulation 11/28/21 Range/Units 15:39 PT 33.3 H (9.0-12.0) sec APTT 34.8 H (22.0-30.0) sec CBC 11/28/21 Range/Units 15:39 WBC 4.9 (3.8-10.6) k/uL RBC 4.06 L (4.30-5.90) m/uL Hgb 12.7 L (13.0-17.5) gm/dL Hct 39.7 (39.0-53.0) % Plt Count 254 (150-450) k/uL Comprehensive Metabolic Panel 11/28/21 Range/Units 15:39 Sodium 139 (137-145) mmol/L Potassium 3.8 (3.5-5.1) mmol/L Chloride 99 (98-107) mmol/L Carbon Dioxide 28 (22-30) mmol/L BUN 18 (9-20) mg/dL Creatinine 1.19 (0.66-1.25) mg/dL Glucose 107 H (74-99) mg/dL Calcium 8.8 (8.4-10.2) mg/dL AST 27 (17-59) U/L ALT 19 (4-49) U/L Alkaline Phosphatase 81 (38-126) U/L Total Protein 6.2 L (6.3-8.2) g/dL Albumin 3.7 (3.5-5.0) g/dL Current Medications Generic Name Dose Route Start Last Admin Trade Name Freq PRN Reason Stop Dose Admin Albuterol/Ipratropium 3 ml 11/28/21 20:00 11/28/21 20:20 Ipratropium-Albuterol 3 Ml Neb INHALATION Not Given RT-QID RAMONA Albuterol/Ipratropium 3 ml 11/28/21 18:06 Ipratropium-Albuterol 3 Ml Neb INHALATION RT-Q2H PRN Shortness Of Breath Or Wheezing Atorvastatin Calcium 10 mg 11/28/21 21:00 11/28/21 21:51 Atorvastatin 10 Mg Tab PO 10 mg HS RAMONA Administration Budesonide/Formoterol Fumarate 2 puff 11/28/21 20:00 11/28/21 20:43 Symbicort 80-4.5 Mcg Inhaler INHALATION 2 puff RT-BID RAMONA Administration Dextrose/Water 25 ml 11/28/21 18:07 Dextrose 50% Syringe 50 Ml IVP PER PROTOCOL PRN Hypoglycemia Protocol Dextrose/Water 50 ml 11/28/21 18:07 Dextrose 50% Syringe 50 Ml IVP PER PROTOCOL PRN Hypoglycemia Protocol Furosemide 40 mg 11/28/21 21:00 11/28/21 21:51 Furosemide 10 Mg/Ml 4 Ml Vial IV 40 mg Q12HR RAMONA Administration Insulin Aspart 0 unit 11/28/21 21:00 11/29/21 06:42 Insulin Aspart (Novolog) 100 Unit/Ml Vial SQ 1 unit ACHS [facility] Administration Protocol Lorazepam 1 mg 11/28/21 18:55 Lorazepam 1 Mg Tab PO TID PRN Anxiety Methylprednisolone Sodium Succinate 40 mg 11/28/21 21:00 11/28/21 21:51 Methylprednisolone Sod Succi 40 Mg/Ml 1 Ml Vial IV 40 mg Q12HR RAMONA Administration Miscellaneous Information 1 each 11/28/21 19:08 Warfarin Per Pharmacy MISCELLANE DIRECTED PRN Per Protocol Naloxone HCl 0.2 mg 11/28/21 17:21 Naloxone 0.4 Mg/Ml 1 Ml Vial IV Q2M PRN Opioid Reversal Pantoprazole Sodium 40 mg 11/29/21 09:00 Pantoprazole 40 Mg Tablet PO DAILY [facility] Tamsulosin HCl 0.4 mg 11/28/21 18:15 11/28/21 18:18 Tamsulosin 0.4 Mg Cap.Er.24h PO 0.4 mg DAILY [facility] Administration Warfarin Sodium 2 mg 12/01/21 18:00 Warfarin 2 Mg Tab PO [id number] [facility] Protocol Warfarin Sodium 4 mg 11/29/21 18:00 Warfarin 2 Mg Tab PO WeTh@1800 [facility] Protocol Intake and Output 11/28/21 11/29/21 11/29/21 22:59 06:59 14:59 Output Total 575 Balance -575 Output: Urine 575 Other: Voiding Method Urinal Urinal # Voids 2 Weight 65.771 kg 65.6 kg 11/28/21 15:39 11/28/21 15:39
[2021-11-29 11:48] LABS: Glucose,Whole Blood 189 mg/dL (70-110)
--- NOTE | 2021-11-29 11:59 | CA ---
Transthoracic Echo Report Name: Ankur Pereira Age: 81 Gender: M : 1940 Exam Date: 11/29/2021 10:20 Exam Location: [facility] Ht (in): 69 Wt (lb): 144 Ordering Physician: Jono Elmore MD Attending/Referring Phys: Head Inspector Anu Ashford RDCS Procedure CPT: Indications: chf Cardiac Hx: Technical Quality: Fair Contrast 1: Total Dose (mL): Contrast 2: Total Dose (mL): MEASUREMENTS (Male / Female) Normal Values 2D ECHO LV Diastolic Diameter PLAX 5.3 cm 4.2 - 5.9 / 3.9 - 5.3 cm LV Systolic Diameter PLAX 4.6 cm IVS Diastolic Thickness 1.3 cm 0.6 - 1.0 / 0.6 - 0.9 cm LVPW Diastolic Thickness 1.1 cm 0.6 - 1.0 / 0.6 - 0.9 cm LV Relative Wall Thickness 0.5 RV Internal Dim ED PLAX 4.7 cm LA Volume 101.0 cm??? 18 - 58 / 22 - 52 cm??? M-MODE Aortic Root Diameter MM 4.2 cm LA Systolic Diameter MM 4.6 cm LA Ao Ratio MM 1.1 AV Cusp Separation MM 1.1 cm DOPPLER AV Peak Velocity 150.0 cm/s AV Peak Gradient 9.0 mmHg AI Peak Velocity 289.8 cm/s AI Peak Gradient 33.6 mmHg AI Pressure Half Time 336.9 ms LVOT Peak Velocity 88.4 cm/s LVOT Peak Gradient 3.1 mmHg MV Peak Velocity 217.5 cm/s MV Peak Gradient 18.9 mmHg MV Mean Velocity 109.4 cm/s MV Mean Gradient 6.0 mmHg MV Velocity Time Integral 39.1 cm TR Peak Velocity 326.9 cm/s TR Peak Gradient 42.7 mmHg Right Ventricular Systolic Press 47.5 mmHg FINDINGS Left Ventricle Mildly increased left ventricular wall thickness. Left ventricular ejection fraction is estimated at 25-30 %. Right Ventricle Moderate right ventricular dilatation. Moderate pulmonary hypertension. Right Atrium Normal right atrial size. Left Atrium Severely increased left atrial volume. Mitral Valve Bioprosthetic mitral valve. Moderate mitral annular calcification. Aortic Valve Trileaflet aortic valve. Aortic valve sclerosis. Moderate aortic regurgitation. Tricuspid Valve S/P Tricuspid valve repair. Moderate tricuspid regurgitation. Pulmonic Valve Trace pulmonic regurgitation. Pericardium No pericardial effusion. Aorta Mildly dilated aortic annulus. CONCLUSIONS Severely impaired only function was EF at 25-30% Severe left atrial dilation Bioprosthetic mitral valve seems to be functioning normally. The mean gradient was 5 mmHg Repair and tricuspid valve was moderate tricuspid regurgitation No evidence of pericardial effusion Previewed by: Dr. Jim Farah MD (Electronically Signed) Final Date: 29 November 2021 11:58
[2021-11-29] MEDS: LORazepam 1 MG TAB PO PRN ×2 (14:15→14:21)
--- NOTE | 2021-11-29 16:16 | P.HPIM ---
History of Present Illness H&P Date: 11/29/21 Chief Complaint: Worsening dyspnea This is a 81-year-old gentlemanwith history of COPD, chronic hypoxic respiratory failure-rays 2 L nasal cannula at home, hyperlipidemia,vascular disorder, abdominal aortic aneurysm with stent placement, shinIvett adkins. fib, mitral valve replacement-prosthetic on Coumadin, anxiety, former nicotine dependence, daily wine intake, initially presented to PCPs office who transferred patient the EMS to the ER regarding CHF exacerbation, hypoxic respiratory failure. Patient complained of worsening dyspnea with exhaustion and lower extremity edema over the last 2 weeks. Denies orthopnea. Denies syncope. Normally patient walks 2 miles daily. Follows with both pulmonary and cardiology with [facility] .Nebulized bronchodilators and diuresing with IV push Lasix initiated in the ER. Chest x-ray reporting pulmonary vascularity increased, pulmonary fibrosis and COPD, suggesting mild heart failure-minimal blunting of costophrenic angles. Elevated troponins , proBNP 10,400 .EKG reporting atrial fibrillation, left anterior fascicular block. Echo of July 23 reported EF 35- 40%, moderate pulmonary hypertension, moderate to severe aortic regurgitation. Repeat echo ordered. Coronavirus, type a and B influenza not detected. Pro- calcitonin elevated, 0.17. INR 3.1. Renal function stable. Blood sugars controlled. Calcium 8.4. Afebrile, WBC 2.9. Electrolytes within normal limits. Review of Systems ROS Statement: Those systems with pertinent positive or pertinent negative responses have been documented in the HPI. ROS Other: All systems not noted in ROS Statement are negative. Past Medical History Past Medical History: Atrial Fibrillation, Heart Failure, COPD, GI Bleed, Hyperlipidemia, Pneumonia, Prostate Disorder, Renal Disease, Skin Disorder, Vascular Disorder Additional Past Medical History / Comment(s): GI bleed, gastritis, gastric ectasia, CKD stage III, past abdominal aortic aneurysm/had stent placed, varicosities, PVD, past shingellis and occasionally will have R flank nerve pain, BPH. History of Any Multi-Drug Resistant Organisms: None Reported Past Surgical History: Cardiac Valve Replacement, Cholecystectomy, Heart Catheterization Additional Past Surgical History / Comment(s): Stent placed for lower abd aortic aneurysym, mitral valve replacement/bicuspid repair, EGD with ablation, colon oscopy, excision L cheek lesion/mass and lesion from scalp/all benign, Past Anesthesia/Blood Transfusion Reactions: No Reported Reaction Date of Last Stent Placement:: 2015 Past Psychological History: Anxiety Smoking Status: Former smoker - Past Family History Mother Family Medical History: Myocardial Infarction ([place]) Additional Family Medical History / Comment(s): at a young age. Father Family Medical History: Hypertension Medications and Allergies Home Medications Medication Instructions Recorded Confirmed Type LORazepam [Ativan] 1 mg PO TID PRN 11/21/17 11/28/21 History Tamsulosin [Flomax] 0.4 mg PO DAILY 11/21/17 11/28/21 History Bisoprolol Fumarate 5 mg PO DAILY 12 Days #12 tablet 10/07/18 11/28/21 Rx Furosemide [Lasix] 40 mg PO Q48H 06/30/19 11/28/21 History Atorvastatin [Lipitor] 10 mg PO HS 07/20/21 11/28/21 History Fluticasone Propion/Salmeterol 1 puff IN RT-BID 07/20/21 11/28/21 History [Advair 100-50 Diskus] Levalbuterol Hfa Inhaler [Xopenex 2 puff INHALATION RT-Q4H PRN MDD 07/20/21 History Hfa Inhaler] 4X DAILY Warfarin Sodium [Jantoven] 2 mg PO SUMOTUFRSA 07/20/21 11/28/21 History Warfarin Sodium [Jantoven] 4 mg PO WETH 07/20/21 11/28/21 History predniSONE 5 mg PO DAILY 07/20/21 11/28/21 History Ascorbic Acid [Vitamin C] 1,000 mg PO DAILY 11/28/21 11/28/21 History Cyanocobalamin (Vitamin B-12) 1,000 mcg PO DAILY 11/28/21 11/28/21 History [Vitamin B-12] Furosemide [Lasix] 20 mg PO Q48H 11/28/21 11/28/21 History LORazepam [Ativan] 0.5 mg PO HS 11/28/21 11/28/21 History Tiotropium 2.5 Mcg/Puff [Spiriva 2 puff INHALATION RT-DAILY 11/28/21 11/28/21 History Respimat 2.5 Mcg] Allergies Allergy/AdvReac Type Severity Reaction Status Date / Time albuterol Allergy Rapid Verified 11/28/21 18:11 Heart Rate empagliflozin Allergy Dyspnea Verified 11/28/21 18:49 [From Jardiance] pain med (can't remember Allergy Hallucinati Uncoded 11/28/21 15:12 name) ons Patches on chest Allergy Swelling Uncoded 11/28/21 15:12 Physical Exam Vitals: Vital Signs Temp Pulse Pulse Resp BP BP Pulse Ox 11/29/21 14:00 88 11/29/21 12:00 98.5 F 92 18 125/62 94 L 11/29/21 08:00 97.5 F L 87 18 132/69 96 11/29/21 04:00 97.5 F L 97 18 137/75 93 L 11/29/21 02:00 86 18 11/29/21 00:00 97.8 F 86 18 116/72 92 L 11/28/21 20:15 98.0 F 103 H 18 118/70 92 L 11/28/21 20:00 98.0 F 103 H 18 118/70 92 L 11/28/21 18:00 86 20 124/68 93 L 11/28/21 16:17 85 11/28/21 16:07 100 Intake and Output 11/29/21 11/29/21 11/29/21 06:59 14:59 22:59 Intake Total 236 Output Total 575 650 Balance -575 -414 Intake: Oral 236 Output: Urine 575 650 Other: Voiding Method Urinal Toilet # Voids 2 Weight 65.6 kg PHYSICAL EXAM: VITAL SIGNS: As above GENERAL: Pleasant, Sitting up in bed, no acute distress HEENT: Conjunctivae normal. eyes normal. Oral mucosa dry NECK: Supple, No JVD. No thyroid enlargement. No LNs CARDIOVASCULAR: S1, S2 regular. Systolic murmur RESPIRATION: Unlabored, Breath sounds diminished in the bases. No rhonchi or crackles. Mild expiratory wheezing No bronchial breathing. ABDOMEN: Soft, nontender . No guarding. no masses palpable. No ascites, No hepatosplenomegaly.Bowel sounds heard. LEGS: 1+ bilateral lower extremity edema, positive DP pulses PSYCHIATRY: Alert and oriented X3, mood and affect normal. NERVOUS SYSTEM: Cranial N 2-12 grossly normal. Moves all 4 limbs. No focal deficits. Strength and sensation grossly intact.. Skin: Warm and dry, no rash Results CBC & Chem 7: 11/29/21 07:20 11/29/21 07:20 Labs: Abnormal Lab Results - Last 24 Hours (Table) 11/28/21 11/28/21 11/28/21 Range/Units 15:39 15:39 15:39 WBC (3.8-10.6) k/uL RBC 4.06 L (4.30-5.90) m/uL Hgb 12.7 L (13.0-17.5) gm/dL MCV (80.0-100.0) fL Lymphocytes # 0.5 L (1.0-4.8) k/uL PT 33.3 H (9.0-12.0) sec INR 3.3 H (<1.2) APTT 34.8 H (22.0-30.0) sec BUN (9-20) mg/dL Glucose 107 H (74-99) mg/dL POC Glucose (mg/dL) (70-110) mg/dL Troponin I (0.000-0.034) ng/mL Total Protein 6.2 L (6.3-8.2) g/dL Procalcitonin (0.02-0.09) ng/mL 11/28/21 11/28/21 11/28/21 Range/Units 15:39 18:24 21:35 WBC (3.8-10.6) k/uL RBC (4.30-5.90) m/uL Hgb (13.0-17.5) gm/dL MCV (80.0-100.0) fL Lymphocytes # (1.0-4.8) k/uL PT (9.0-12.0) sec INR (<1.2) APTT (22.0-30.0) sec BUN (9-20) mg/dL Glucose (74-99) mg/dL POC Glucose (mg/dL) (70-110) mg/dL Troponin I 0.080 H* 0.082 H* 0.078 H* (0.000-0.034) ng/mL Total Protein (6.3-8.2) g/dL Procalcitonin (0.02-0.09) ng/mL 11/28/21 11/29/21 11/29/21 Range/Units 21:40 05:59 07:20 WBC 2.9 L (3.8-10.6) k/uL RBC 3.96 L (4.30-5.90) m/uL Hgb 12.8 L (13.0-17.5) gm/dL MCV 101.0 H (80.0-100.0) fL Lymphocytes # 0.4 L (1.0-4.8) k/uL PT (9.0-12.0) sec INR (<1.2) APTT (22.0-30.0) sec BUN (9-20) mg/dL Glucose (74-99) mg/dL POC Glucose (mg/dL) 175 H (70-110) mg/dL Troponin I (0.000-0.034) ng/mL Total Protein (6.3-8.2) g/dL Procalcitonin 0.17 H (0.02-0.09) ng/mL 11/29/21 11/29/21 11/29/21 Range/Units 07:20 07:20 11:33 WBC (3.8-10.6) k/uL RBC (4.30-5.90) m/uL Hgb (13.0-17.5) gm/dL MCV (80.0-100.0) fL Lymphocytes # (1.0-4.8) k/uL PT 31.2 H (9.0-12.0) sec INR 3.1 H (<1.2) APTT (22.0-30.0) sec BUN 22 H (9-20) mg/dL Glucose 143 H (74-99) mg/dL POC Glucose (mg/dL) 189 H (70-110) mg/dL Troponin I (0.000-0.034) ng/mL Total Protein (6.3-8.2) g/dL Procalcitonin (0.02-0.09) ng/mL Thrombosis Risk Factor Assmnt - Choose All That Apply Each Risk Factor Represents 3 Points: Age 75 years or older Thrombosis Risk Factor Assessment Total Risk Factor Score: 3 Thrombosis Risk Factor Assessment Level: Moderate Risk Assessment and Plan Assessment: Acute on chronic CHF exacerbation, systolic dysfunction Acute on chronic hypoxic respiratory failure, wears 2 L at home Acute on chronic renal failure, stage III, baseline around 1.2, secondary to hypovolemia, hypercalcemia History of Right atypical renal cyst, 1.7 cm, bladder diverticulum demonstrating wall irregularity, mucosal lesion not excluded, follow-up with urology outpatient Elevated troponins, possibly secondary to CHF, cardiology following COPD Alcohol use, Daily alcohol consumption of 1-2 glasses of wine Mitral valve replacement, prosthetic valve on Coumadin Hyperlipidemia PVD with history of stented lower abdominal aortic aneurysm History of nicotine dependence, 3 packs per day History of anxiety Hyperlipidemia Plan: Continue on current medication regime ,monitoring and symptomatic treatment. 2-D echo pending, continue diuresing with Lasix IV push. Close monitoring of renal function, electrolytes with repeat labs ordered for a.m. daily PT INR. Anticoagulation with Coumadin . The impression and plan of care has been dictated as directed. : I performed a history and examination of this patient, discussed the same with the dictator. I agree with the dictator's note ,documented as a scribe. Any additional findings or plans will be noted.
[2021-11-29 16:19] LABS: Glucose,Whole Blood 168 mg/dL (70-110)
[2021-11-29] MEDS: VALSARTAN 40 MG TAB PO SCH (16:20)
--- NOTE | 2021-11-29 16:46 | P.CNPUL ---
History of Present Illness Consult date: 11/29/21 Requesting physician: Tan Bey Jr Reason for consult: dyspnea, abnormal CXR/CT Chief complaint: Shortness of breath, dyspnea on exertion, fatigue History of present illness: This is a pleasant 81-year-old male patient with a known history of chronic obstructive pulmonary disease with previous [place] valve placement at [facility] 2-3 years ago, he has been maintained on [place], Spiriva, Xopenex in the outpatient setting. He also has a history of secondary pulmonary hypertension and follows at the [facility] pulmonary hypertension clinic. He has chronic hypoxemic respiratory failure maintained on home oxygen at 2 L/m per nasal cannula, paroxysmal atrial fibrillation anticoagulated with warfarin, hypertension, hyperlipidemia. He presented here to the emergency room yesterday with complaints of increasing shortness of breath, fatigue, dyspnea on exertion. No fever chills. No cough or congestion. Chest x-ray revealed mild pulmonary vascular congestion with mild heart failure. Evidence of pulmonary fibrosis and COPD. Echocardiogram reveals impaired left ventricular systolic function with ejection fraction of 25-30%. There is moderate pulmonary hypertension with an RVSP of 48 mmHg. Bioprosthetic mitral valve with moderate calcification, status post tricuspid valve repair. White count 2.9. Hemoglobin 12.8. INR 3.1. Sodium 141. Potassium 3.9. BUN 22. Creatinine 1.23. Glucose 143. Pro-calcitonin 0.17. Troponin troponin 0.078. ProBNP 10,400. Fatima virus and influenza screen was negative. He is seen today in consultation on the selective care unit. Currently resting quite comfortably in bed. Awake and alert in no acute distress. Lungs sounds with minimal crackles bilaterally. He is maintaining O2 saturations in the 90s on 3 L/m per nasal cannula. He's been afebrile. Hemodynamically stable. Initiated on Lasix 40 mg IV every 12 hours along with Aldactone. Anticoagulated with warfarin. Remains on Symbicort and DuoNeb inhalations. Review of Systems REVIEW OF SYSTEMS: CONSTITUTIONAL: Positive for fatigue. Denies any recent significant weight loss or weight gain. EYES: Denies change in vision. EARS, NOSE, MOUTH, THROAT: Denies headaches, denies sore throat. CARDIOVASCULAR: Denies chest pain, palpitations or syncopal episodes. RESPIRATORY: Positive for shortness of breath, cough, congestion no hemoptysis. GASTROINTESTINAL: Denies change in appetite, denies abdominal pain GENITOURINARY: Denies hematuria, denies infections. MUSKULOSKELETAL: Denies pain, denies swelling. INTEGUMENTARY: Denies rash, denies eczema. NEUROLOGICAL: Denies recent memory loss, no recent seizure activity. PSYCHIATRIC: Denies anxiety, denies depression. HEMATOLOGIC/LYMPHATIC: Denies anemia, denies enlarged lymph nodes. Past Medical History Past Medical History: Atrial Fibrillation, Heart Failure, COPD, GI Bleed, Hyperlipidemia, Pneumonia, Prostate Disorder, Renal Disease, Skin Disorder, Vascular Disorder Additional Past Medical History / Comment(s): GI bleed, gastritis, gastric ectasia, CKD stage III, past abdominal aortic aneurysm/had stent placed, varicosities, PVD, past shingellis and occasionally will have R flank nerve pain, BPH. History of Any Multi-Drug Resistant Organisms: None Reported Past Surgical History: Cardiac Valve Replacement, Cholecystectomy, Heart Ca theterization Additional Past Surgical History / Comment(s): Stent placed for lower abd aortic aneurysym, mitral valve replacement/bicuspid repair, EGD with ablation, colonosc opy, excision L cheek lesion/mass and lesion from scalp/all benign, Past Anesthesia/Blood Transfusion Reactions: No Reported Reaction Date of Last Stent Placement:: 2015 Past Psychological History: Anxiety Smoking Status: Former smoker - Past Family History Mother Family Medical History: Myocardial Infarction ([place]) Additional Family Medical History / Comment(s): at a young age. Father Family Medical History: Hypertension Medications and Allergies Home Medications Medication Instructions Recorded Confirmed Type LORazepam [Ativan] 1 mg PO TID PRN 11/21/17 11/28/21 History Tamsulosin [Flomax] 0.4 mg PO DAILY 11/21/17 11/28/21 History Bisoprolol Fumarate 5 mg PO DAILY 12 Days #12 tablet 10/07/18 11/28/21 Rx Furosemide [Lasix] 40 mg PO Q48H 06/30/19 11/28/21 History Atorvastatin [Lipitor] 10 mg PO HS 07/20/21 11/28/21 History Fluticasone Propion/Salmeterol 1 puff IN RT-BID 07/20/21 11/28/21 History [Advair 100-50 Diskus] Levalbuterol Hfa Inhaler [Xopenex 2 puff INHALATION RT-Q4H PRN MDD 07/20/21 11/28/21 History Hfa Inhaler] 4X DAILY Warfarin Sodium [Jantoven] 2 mg PO SUMOTUFRSA 07/20/21 11/28/21 History Warfarin Sodium [Jantoven] 4 mg PO WETH 07/20/21 11/28/21 History predniSONE 5 mg PO DAILY 07/20/21 11/28/21 History Ascorbic Acid [Vitamin C] 1,000 mg PO DAILY 11/28/21 11/28/21 History Cyanocobalamin (Vitamin B-12) 1,000 mcg PO DAILY 11/28/21 11/28/21 History [Vitamin B-12] Furosemide [Lasix] 20 mg PO Q48H 11/28/21 11/28/21 History LORazepam [Ativan] 0.5 mg PO HS 11/28/21 11/28/21 History Tiotropium 2.5 Mcg/Puff [Spiriva 2 puff INHALATION RT-DAILY 11/28/21 11/28/21 History Respimat 2.5 Mcg] Allergies Allergy/AdvReac Type Severity Reaction Status Date / Time albuterol Allergy Rapid Verified 11/28/21 18:11 Heart Rate empagliflozin Allergy Dyspnea Verified 11/28/21 18:49 [From Jardiance] pain med (can't remember Allergy Hallucinati Uncoded 11/28/21 15:12 name) ons Patches on chest Allergy Swelling Uncoded 11/28/21 15:12 Physical Exam Vitals: Vital Signs Temp Pulse Pulse Resp BP BP Pulse Ox 11/29/21 14:00 88 11/29/21 12:00 98.5 F 92 18 125/62 94 L 11/29/21 08:00 97.5 F L 87 18 132/69 96 11/29/21 04:00 97.5 F L 97 18 137/75 93 L 11/29/21 02:00 86 18 11/29/21 00:00 97.8 F 86 18 116/72 92 L 11/28/21 20:15 98.0 F 103 H 18 118/70 92 L 11/28/21 20:00 98.0 F 103 H 18 118/70 92 L 11/28/21 18:00 86 20 124/68 93 L Intake and Output 09/11/29/21 11/29/21 06:59 14:59 22:59 Intake Total 236 Output Total 575 650 Balance -575 414 Intake: Oral 236 Output: Urine 575 650 Other: Voiding Method Urinal Toilet # Voids 2 Weight 65.6 kg GENERAL EXAM: Alert, pleasant 81-year-old male patient, on 3 L nasal cannula, comfortable in no apparent distress. HEAD: Normocephalic. EYES: Normal reaction of pupils, equal size. NOSE: Clear with pink turbinates. THROAT: No erythema or exudates. NECK: No masses, no JVD. CHEST: No chest wall deformity. LUNGS: Equal air entry with faint crackles in the posterior bases. CVS: S1 and S2 normal with no audible murmur, regular rhythm. ABDOMEN: No hepatosplenomegaly, normal bowel sounds, no guarding or rigidity. SPINE: No scoliosis or deformity SKIN: No rashes CENTRAL NERVOUS SYSTEM: No focal deficits, tone is normal in all 4 extremities. EXTREMITIES: There is no peripheral edema. No clubbing, no cyanosis. Peripheral pulses are intact. Results - Laboratory Findings CBC and BMP: 11/29/21 07:20 11/29/21 07:20 PT/INR, D-dimer PT 31.2 sec (9.0-12.0) H 11/29/21 07:20 INR 3.1 (<1.2) H 11/29/21 07:20 Abnormal lab findings: Abnormal Labs 11/28/21 11/28/21 11/28/21 15:39 15:39 15:39 WBC RBC 4.06 L Hgb 12.7 L MCV Lymphocytes # 0.5 L PT 33.3 H INR 3.3 H APTT 34.8 H BUN Glucose 107 H POC Glucose (mg/dL) Troponin I Total Protein 6.2 L Procalcitonin 11/28/21 11/28/21 11/28/21 15:39 18:24 21:35 WBC RBC Hgb MCV Lymphocytes # PT INR APTT BUN Glucose POC Glucose (mg/dL) Troponin I 0.080 H* 0.082 H* 0.078 H* Total Protein Procalcitonin 11/28/21 11/29/21 11/29/21 21:40 05:59 07:20 WBC 2.9 L RBC 3.96 L Hgb 12.8 L MCV 101.0 H Lymphocytes # 0.4 L PT INR APTT BUN Glucose POC Glucose (mg/dL) 175 H Troponin I Total Protein Procalcitonin 0.17 H 11/29/21 11/29/21 11/29/21 07:20 07:20 11:33 WBC RBC Hgb MCV Lymphocytes # PT 31.2 H INR 3.1 H APTT BUN 22 H Glucose 143 H POC Glucose (mg/dL) 189 H Troponin I Total Protein Procalcitonin 11/29/21 16:18 WBC RBC Hgb MCV Lymphocytes # PT INR APTT BUN Glucose POC Glucose (mg/dL) 168 H Troponin I Total Protein Procalcitonin - Diagnostic Findings Chest x-ray: image reviewed Assessment and Plan Assessment: Acute exacerbation of chronic systolic congestive heart failure with an ejection fraction 25-30 % Moderate to severe pulmonary hypertension with an RVSP of 48 mmHg, follows at the [facility] pulmonary hypertension clinic History of bioprosthetic mitral valve History of tricuspid valve repair History of [place] valve replacement for severe COPD at [facility] 2-3 years ago History of chronic hypoxemic respiratory failure on home oxygen at 2 L/m nasal cannula. Paroxysmal atrial fibrillation anticoagulated with warfarin Hypertension Hyperlipidemia Plan: The patient was seen and evaluated Chest x-ray, echocardiogram, medications and labs reviewed Continue IV diuretics Continue bronchodilators Titrate the FiO2 as tolerated Increase his activity as tolerated Follow-up chest x-ray in a.m. We will continue to follow and make further recommendations based on his clinical status I have personally seen and examined the patient, performed the documentation and the assessment and plan as written. Number of minutes spent on the visit: 20.
[2021-11-29] MEDS: METOPROLOL SUCCINATE (ER) 25 MG TAB.ER.24H PO SCH (17:20)
[2021-11-29] MEDS ORDERED: WARFARIN 2 MG TAB PO SCH (18:00)
[2021-11-29] MEDS: ATORVASTATIN 10 MG TAB PO SCH (20:17)
[2021-11-29 21:19] LABS: Glucose,Whole Blood 133 mg/dL (70-110)
[2021-11-30 06:18] LABS: Glucose,Whole Blood 140 mg/dL (70-110)
[2021-11-30] MEDS: INSULIN ASPART (NovoLOG) 100 UNIT/ML VIAL SQ SCH ×4 (06:41→20:16)
[2021-11-30] MEDS: IPRATROPIUM-ALBUTEROL 3 ML NEB INHALATION SCH ×2 (08:03→11:15)
[2021-11-30] MEDS: SYMBICORT 80-4.5 MCG INHALER INHALATION SCH ×2 (08:03→19:56)
[2021-11-30] MEDS: TAMSULOSIN 0.4 MG CAP.ER.24H PO SCH (08:18)
[2021-11-30] MEDS: PANTOPRAZOLE 40 MG TABLET PO SCH (08:18)
[2021-11-30] MEDS: SPIRONOLACTONE 25 MG TAB PO SCH (08:18)
[2021-11-30] MEDS: VALSARTAN 40 MG TAB PO SCH (08:18)
[2021-11-30] MEDS: methylPREDNISolone SOD SUCCI 40 MG/ML 1 ML VIAL IV SCH ×2 (08:19→20:00)
[2021-11-30] MEDS: FUROSEMIDE 10 MG/ML 4 ML VIAL IV SCH ×2 (08:19→20:00)
[2021-11-30] MEDS: METOPROLOL SUCCINATE (ER) 25 MG TAB.ER.24H PO SCH (08:19)
[2021-11-30 08:25] LABS: INR 3.2 (<1.2); Prothrombin Time 31.5 sec (9.0-12.0)
[2021-11-30] MEDS: LORazepam 1 MG TAB PO PRN ×2 (08:25→20:05)
[2021-11-30 08:38] LABS: Calcium 8.5 mg/dL (8.4-10.2); Potassium 3.6 mmol/L (3.5-5.1)
[2021-11-30] MEDS ORDERED: METOPROLOL SUCCINATE (ER) 25 MG TAB.ER.24H PO SCH (09:00)
--- NOTE | 2021-11-30 10:41 | P.PN ---
Subjective This is a 81-year-old male with a past medical history significant for COPD with home oxygen use, tissue mitral valve replacement and tricuspid valve repair of [facility] in 2015, non-ischemic cardiomyopathy, paroxysmal atrial fibrillation on warfarin, hypertension, AAA, COPD, former tobacco use, pulmonary hypertension and hyperlipidemia. Patient follows in the office with Dr. Kramer. We have been asked to see the patient in consultation for congestive heart failure. Patient states he presented to the hospital with worsening shortness of breath, cough, generalized fatigue progressively worsening for 1 week. He states over the past week he is unable to walk his usual mile walk, or do his daily activities secondary to shortness of breath and fatigue. He also noticed worsening LE edema. He presented to his PCP and recommended patient be evaluated in the ER. He denies any changes to his medications, he does adhere to low salt diet. He denies any chest discomfort, lightheadedness, dizziness, syncope or near syncope. He denies any orthopnea or PND. He is able to lay flat in bed. He was started on IV Lasix and Duonebs in the ER with improvement in breathing. DIAGNOSTICS: * Echocardiogram 07/2021 revealed EF of 3540% by cystic mitral valve, moderate severe aortic regurgitation * Echo in May 2020 revealed ejection fraction 45-50%, mild LVH, mild aortic regurgitation, biological mitral valve prosthesis, annuloplasty ring tricuspid valve prosthesis, severe pulmonary artery hypertension 11/30 Patient seen and examined at bedside, continues to have some shortness of breath, but improved. Continues to be on IV Lasix 40mg BID. Patient with -2.2L urine output over the past 24 hours. Decrease in weight noted. Continues to be on coumadin INR 3.2. Echocardiogram: EF 2530 %moderate pulmonary hypertension, severely increased left atrial volume. Bioprosthetic mitral valve seems before functioning normally. Repair of Tricuspid valve with moderate tricuspid regurgitation. No evidence of pericardial effusion PHYSICAL EXAM: VITAL SIGNS: Reviewed. GENERAL: Well-developed in no acute distress. HEENT: Head is normocephalic. Neck supple. No JVD LUNGS: Respirations even and unlabored. Lungs with decreased air exchanged bilateral bases, expiratory wheezing has improved. HEART: Regular rate and rhythm. S1 and S2 heard. Soft systolic murmur noted. ABDOMEN: Soft. Nondistended. Nontender. EXTREMITIES: Normal range of motion. No clubbing or cyanosis. Peripheral pulses intact. 1+ bilateral lower extremity edema NEUROLOGIC: Awake and alert. Oriented x 3. ASSESSMENT: Acute on chronic heart failure with reduced ejection fraction Paroxysmal atrial fibrillation on coumadin Abnormal troponins, likely secondary to congestive heart failure History of Non-ischemic cardiomyopathy with improved EF COPD exacerbation with home oxygen use History of mitral valve replacement in 2014 History of tricuspid valve repair in 2015 History of AAA Hyperlipidemia PLAN: Continue IV Lasix 40mg BID for additional 24 hours, transition to PO tomorrow Will optimize heart failure regimen, Continue beta bebo and spironolactone. patient started on valsartan Monitor I/Os daily weights, renal function and electrolytes Continue anticoagulation with coumadin. monitor INR Continue statin Consider Entresto and Jardiance as an outpatient Continue telemetry monitoring Hopefully discharge in the next 24 hours. Nurse practitioner note has been reviewed by physician. Signing provider agrees with the documented findings, assessment, and plan of care. Objective - Vital Signs Vital signs: Vital Signs Temp 97.7 F 11/30/21 08:30 Pulse 87 11/30/21 08:30 Resp 18 11/30/21 08:30 BP 119/71 11/30/21 08:30 Pulse Ox 98 11/30/21 08:30 FiO2 Intake & Output 11/29/21 11/30/21 11/30/21 18:59 06:59 18:59 Intake Total 236 118 Output Total 1150 1100 Balance -914 -1100 118 Weight 64.7 kg Intake: Oral 236 118 Output: Urine 1150 1100 Other: Voiding Method Toilet Toilet Toilet - Labs CBC & Chem 7: 11/29/21 07:20 11/30/21 07:18 Labs: Abnormal Lab Results - Last 24 Hours (Table) 11/29/21 11/29/21 11/29/21 Range/Units 11:33 16:18 21:17 PT (9.0-12.0) sec INR (<1.2) BUN (9-20) mg/dL Glucose (74-99) mg/dL POC Glucose (mg/dL) 189 H 168 H 133 H (70-110) mg/dL 11/30/21 11/30/21 11/30/21 Range/Units 06:12 07:18 07:18 PT 31.5 H (9.0-12.0) sec INR 3.2 H (<1.2) BUN 30 H (9-20) mg/dL Glucose 115 H (74-99) mg/dL POC Glucose (mg/dL) 140 H (70-110) mg/dL Microbiology - Last 24 Hours (Table) 11/28/21 15:39 Blood Culture - Preliminary Blood No Growth after 24 hours 11/28/21 15:39 Blood Culture - Preliminary Blood No Growth after 24 hours
[2021-11-30 11:37] LABS: Glucose,Whole Blood 138 mg/dL (70-110)
--- NOTE | 2021-11-30 12:25 | P.PN ---
Subjective Progress Note Date: 11/30/21 This is a pleasant 81-year-old male patient with a known history of chronic obstructive pulmonary disease with previous [place] valve placement at [facility] 2-3 years ago, he has been maintained on Wixella, Spiriva, Xopenex in the outpatient setting. He also has a history of secondary pulmonary hypertension and follows at the [facility] pulmonary hypertension clinic. He has chronic hypoxemic respiratory failure maintained on home oxygen at 2 L/m per nasal cannula, paroxysmal atrial fibrillation anticoagulated with warfarin, hypertension, hyperlipidemia. He presented here to the emergency room yesterday with complaints of increasing shortness of breath, fatigue, dyspnea on exertion. No fever chills. No cough or congestion. Chest x-ray revealed mild pulmonary vascular congestion with mild heart failure. Evidence of pulmonary fibrosis and COPD. Echocardiogram reveals impaired left ventricular systolic function with ejection fraction of 25-30%. There is moderate pulmonary hypertension with an RVSP of 48 mmHg. Bioprosthetic mitral valve with moderate calcification, status post tricuspid valve repair. White count 2.9. Hemoglobin 12.8. INR 3.1. Sodium 141. Potassium 3.9. BUN 22. Creatinine 1.23. Glucose 143. Pro-calcitonin 0.17. Troponin troponin 0.078. ProBNP 10,400. Fatima virus and influenza screen was negative. He is seen today in consultation on the selective care unit. Currently resting quite comfortably in bed. Awake and alert in no acute distress. Lungs sounds with minimal crackles bilaterally. He is maintaining O2 saturations in the 90s on 3 L/m per nasal cannula. He's been afebrile. Hemodynamically stable. Initiated on Lasix 40 mg IV every 12 hours along with Aldactone. Anticoagulated with warfarin. Remains on Symbicort and DuoNeb inhalations. The patient is seen today 08/30/2021 in follow-up on the selective care unit. He is currently sitting in a bed and chair at the bedside. Awake and alert in no acute distress. Doing better today compared to yesterday. Maintaining O2 saturations in the 90s on 3 L/m per nasal cannula. He's been afebrile. Hemodynamically stable. He is continued on Symbicort, DuoNeb's, IV Solu-Medrol. Anticoagulated with warfarin. Remains on IV diuretics. Currently in a neg ative balance. Objective - Vital Signs Vital signs: Vital Signs Temp 97.4 F L 11/30/21 12:00 Pulse 97 11/30/21 12:00 Resp 18 11/30/21 12:00 BP 136/81 11/30/21 12:00 Pulse Ox 93 L 11/30/21 12:00 FiO2 Intake & Output 11/29/21 11/30/21 11/30/21 18:59 06:59 18:59 Intake Total 236 118 Output Total 1150 1100 800 Balance -914 -1100 -682 Weight 64.7 kg Intake: Oral 236 118 Output: Urine 1150 1100 800 Other: Voiding Method Toilet Toilet Toilet - Exam GENERAL EXAM: Alert, active 81-year-old male, on 3 L nasal cannula, comfortable in no apparent distress. HEAD: Normocephalic. EYES: Normal reaction of pupils, equal size. NOSE: Clear with pink turbinates. THROAT: No erythema or exudates. NECK: No masses, no JVD. CHEST: No chest wall deformity. LUNGS: Equal air entry with faint crackles in the posterior bases. CVS: S1 and S2 normal with no audible murmur, regular rhythm. ABDOMEN: No hepatosplenomegaly, normal bowel sounds, no guarding or rigidity. SPINE: No scoliosis or deformity SKIN: No rashes CENTRAL NERVOUS SYSTEM: No focal deficits, tone is normal in all 4 extremities. EXTREMITIES: There is no peripheral edema. No clubbing, no cyanosis. Peripheral pulses are intact. - Labs CBC & Chem 7: 11/29/21 07:20 11/30/21 07:18 Labs: Abnormal Lab Results - Last 24 Hours (Table) 11/29/21 11/29/21 11/30/21 Range/Units 16:18 21:17 06:12 PT (9.0-12.0) sec INR (<1.2) BUN (9-20) mg/dL Glucose (74-99) mg/dL POC Glucose (mg/dL) 168 H 133 H 140 H (70-110) mg/dL 11/30/21 11/30/21 11/30/21 Range/Units 07:18 07:18 11:35 PT 31.5 H (9.0-12.0) sec INR 3.2 H (<1.2) BUN 30 H (9-20) mg/dL Glucose 115 H (74-99) mg/dL POC Glucose (mg/dL) 138 H (70-110) mg/dL Microbiology - Last 24 Hours (Table) 11/28/21 15:39 Blood Culture - Preliminary Blood No Growth after 24 hours 11/28/21 15:39 Blood Culture - Preliminary Blood No Growth after 24 hours Assessment and Plan Assessment: Acute exacerbation of chronic systolic congestive heart failure with an ejection fraction 25-30 % Moderate to severe pulmonary hypertension with an RVSP of 48 mmHg, follows at the [facility] pulmonary hypertension clinic History of bioprosthetic mitral valve History of tricuspid valve repair History of [place] valve replacement for severe COPD at [facility] 2-3 years ago History of chronic hypoxemic respiratory failure on home oxygen at 2 L/m nasal cannula. Paroxysmal atrial fibrillation anticoagulated with warfarin Hypertension Hyperlipidemia Plan: The patient was seen and evaluated Medications and labs reviewed Improved today, less short of breath Continue IV diuretics Continue bronchodilators Titrate the FiO2 as tolerated Increase his activity as tolerated We will continue to follow I have personally seen and examined the patient, performed the documentation and the assessment and plan as written. Number of minutes spent on the visit: 10.
--- NOTE | 2021-11-30 14:26 | P.PN ---
Subjective Progress Note Date: 11/30/21 H&P Date: 11/29/21 Chief Complaint: Worsening dyspnea This is a 81-year-old gentlemanwith history of COPD, chronic hypoxic respiratory failure-rays 2 L nasal cannula at home, hyperlipidemia,vascular disorder, abdominal aortic aneurysm with stent placement, Lin lo[place] fib, mitral valve replacement-prosthetic on Coumadin, anxiety, former nicotine dependence, daily wine intake, initially presented to PCPs office who transferred patient the EMS to the ER regarding CHF exacerbation, hypoxic respiratory failure. Patient complained of worsening dyspnea with exhaustion and lower extremity edema over the last 2 weeks. Denies orthopnea. Denies syncope. Normally patient walks 2 miles daily. Follows with both pulmonary and cardiology with [facility] .Nebulized bronchodilators and diuresing with IV push Lasix initiated in the ER. Chest x-ray reporting pulmonary vascularity increased, pulmonary fibrosis and COPD, suggesting mild heart failure-minimal blunting of costophrenic angles. Elevated troponins , proBNP 10,400 .EKG reporting atrial fibrillation, left anterior fascicular block. Echo of July 23 reported EF 35- 40%, moderate pulmonary hypertension, moderate to severe aortic regurgitation. Repeat echo ordered. Coronavirus, type a and B influenza not detected. Pro- calcitonin elevated, 0.17. INR 3.1. Renal function stable. Blood sugars controlled. Calcium 8.4. Afebrile, WBC 2.9. Electrolytes within normal limits. 11/30/2021 valsartan initiated yesterday, in addition to Aldactone, beta bebo. maintained on nebulized bronchodilators, IV steroids. Diuresing well on IV diuretics with 24-hour I&O reflecting a negative fluid balance.Creatinine stable 1.21. Breathing continues to improve, denies chest pain, palpitations or increased shortness of breath. Maintaining O2 sats in the 90s on 3 L nasal cannula. Echo reported severe he impaired LV function, EF 25-30%, normal functioning bioprosthetic mitral valve , moderate tricuspid regurgitation.Anticoagulated on Coumadin, INR 3.2. Afebrile. Objective - Vital Signs Vital signs: Vital Signs Temp 97.4 F L 11/30/21 12:00 Pulse 97 11/30/21 12:00 Resp 18 11/30/21 12:00 BP 136/81 11/30/21 12:00 Pulse Ox 93 L 11/30/21 12:00 FiO2 Intake & Output 11/29/21 11/30/21 11/30/21 18:59 06:59 18:59 Intake Total 236 236 Output Total 1150 1100 800 Balance -507 -8489 -784 Weight 64.7 kg Intake: Oral 236 236 Output: Urine 1150 1100 800 Other: Voiding Method Toilet Toilet Toilet - Exam PHYSICAL EXAM: VITAL SIGNS: As above GENERAL: Pleasant, Sitting up in bed, no acute distress HEENT: Conjunctivae normal. eyes normal. Oral mucosa dry NECK: Supple, No JVD. No thyroid enlargement. No LNs CARDIOVASCULAR: S1, S2 regular. Systolic murmur RESPIRATION: Unlabored, Breath sounds diminished in the bases. Fine bibasilar crackles. ABDOMEN: Soft, nontender . No guarding. no masses palpable. No ascites, No hepatosplenomegaly.Bowel sounds heard. LEGS: Decreased edema, no clubbing or cyanosis, positive DP pulses PSYCHIATRY: Alert and oriented X3, mood and affect normal. NERVOUS SYSTEM: Cranial N 2-12 grossly normal. Moves all 4 limbs. No focal deficits. Strength and sensation grossly intact.. Skin: Warm and dry, no rash - Labs CBC & Chem 7: 11/29/21 07:20 11/30/21 07:18 Labs: Abnormal Lab Results - Last 24 Hours (Table) 11/29/21 11/29/21 11/30/21 Range/Units 16:18 21:17 06:12 PT (9.0-12.0) sec INR (<1.2) BUN (9-20) mg/dL Glucose (74-99) mg/dL POC Glucose (mg/dL) 168 H 133 H 140 H (70-110) mg/dL 11/30/21 11/30/21 11/30/21 Range/Units 07:18 07:18 11:35 PT 31.5 H (9.0-12.0) sec INR 3.2 H (<1.2) BUN 30 H (9-20) mg/dL Glucose 115 H (74-99) mg/dL POC Glucose (mg/dL) 138 H (70-110) mg/dL Microbiology - Last 24 Hours (Table) 11/28/21 15:39 Blood Culture - Preliminary Blood No Growth after 24 hours 11/28/21 15:39 Blood Culture - Preliminary Blood No Growth after 24 hours Assessment and Plan Assessment: Acute on chronic CHF exacerbation, systolic dysfunction, reduced EF per current echo Acute on chronic hypoxic respiratory failure, wears 2 L at home Acute on chronic renal failure, stage III, baseline around 1.2, secondary to hy povolemia, hypercalcemia History of Right atypical renal cyst, 1.7 cm, bladder diverticulum demonstrating wall irregularity, mucosal lesion not excluded, follow-up with urology outpatient Elevated troponins, possibly secondary to CHF, cardiology following Paroxysmal atrial fibrillation COPD Alcohol use, Daily alcohol consumption of 1-2 glasses of wine Mitral valve replacement, prosthetic valve on Coumadin Hyperlipidemia PVD with history of stented lower abdominal aortic aneurysm History of nicotine dependence, 3 packs per day History of anxiety Hyperlipidemia Plan: Continue on current medication regime ,monitoring and symptomatic treatment. Diuretics transitioned to oral, starting tomorrow as per cardiology Close monitoring of renal function, electrolytes with repeat labs ordered for a.m. daily PT INR. Anticoagulation with Coumadin . Discharge planning in progress tentatively for tomorrow. The impression and plan of care has been dictated as directed. : I performed a history and examination of this patient, discussed the same with the dictator. I agree with the dictator's note ,documented as a scribe. Any additional findings or plans will be noted.
[2021-11-30 16:49] LABS: Glucose,Whole Blood 133 mg/dL (70-110)
[2021-11-30] MEDS ORDERED: WARFARIN 0.5 MG TAB PO ONE (18:00)
[2021-11-30] MEDS: ATORVASTATIN 10 MG TAB PO SCH (20:00)
[2021-11-30 20:06] LABS: Glucose,Whole Blood 135 mg/dL (70-110)
[2021-12-01 06:24] LABS: Glucose,Whole Blood 148 mg/dL (70-110)
[2021-12-01] MEDS: INSULIN ASPART (NovoLOG) 100 UNIT/ML VIAL SQ SCH ×4 (06:28→20:44)
[2021-12-01] MEDS: SYMBICORT 80-4.5 MCG INHALER INHALATION SCH ×2 (08:09→19:52)
--- NOTE | 2021-12-01 08:48 | XR ---
EXAMINATION TYPE: XR chest 1V portable DATE OF EXAM: 12/01/2021 COMPARISON: Chest x-ray 11/28/2021 HISTORY: Congestive heart failure TECHNIQUE: Single frontal view of the chest is obtained. FINDINGS: There is underlying emphysema. Patient is post median sternotomy and cardiac valve replace ments. Interstitial changes are present at the lung bases. Cardiac mediastinal silhouette is stable. Aorta is dense. No evident pneumothorax or pleural effusion. Apical bullous changes are present. Calc ified granuloma present in the right upper lobe. There are coronary artery calcifications. Prominence of pulmonary artery is consistent with pulmonary artery hypertension. IMPRESSION: Emphysema, coronary artery disease, difficult to exclude a component of interstitial oscar ma persists pneumonia.
[2021-12-01 09:40] LABS: INR 3.9 (<1.2); Prothrombin Time 39.2 sec (9.0-12.0)
[2021-12-01] MEDS: TAMSULOSIN 0.4 MG CAP.ER.24H PO SCH (09:44)
[2021-12-01] MEDS: PANTOPRAZOLE 40 MG TABLET PO SCH (09:44)
[2021-12-01] MEDS: METOPROLOL SUCCINATE (ER) 25 MG TAB.ER.24H PO SCH (09:44)
[2021-12-01] MEDS: FUROSEMIDE 40 MG TAB PO SCH (09:44)
[2021-12-01] MEDS: SPIRONOLACTONE 25 MG TAB PO SCH (09:44)
[2021-12-01] MEDS: methylPREDNISolone SOD SUCCI 40 MG/ML 1 ML VIAL IV SCH ×3 (09:44→23:23)
[2021-12-01] MEDS: VALSARTAN 40 MG TAB PO SCH (09:44)
[2021-12-01 09:55] LABS: Calcium 8.9 mg/dL (8.4-10.2); Potassium 3.9 mmol/L (3.5-5.1)
[2021-12-01] MEDS: FUROSEMIDE 10 MG/ML 4 ML VIAL IV SCH (11:26)
[2021-12-01 11:41] LABS: Glucose,Whole Blood 143 mg/dL (70-110)
--- NOTE | 2021-12-01 11:48 | P.HPIM ---
History of Present Illness H&P Date: 11/29/21 H&P the copy, due to Dragon error. H&P Date: 11/29/21 Chief Complaint: Worsening dyspnea This is a 81-year-old gentlemanwith history of COPD, chronic hypoxic respiratory failure-rays 2 L nasal cannula at home, hyperlipidemia,vascular disorder, abd ominal aortic aneurysm with stent placement, shingllili, A. fib, mitral valve replacement-prosthetic on Coumadin, anxiety, former nicotine dependence, daily wine intake, initially presented to PCPs office who transferred patient the EMS to the ER regarding CHF exacerbation, hypoxic respiratory failure. Patient complained of worsening dyspnea with exhaustion and lower extremity edema over the last 2 weeks. Denies orthopnea. Denies syncope. Normally patient walks 2 miles daily. Follows with both pulmonary and cardiology with [facility] .Nebulized bronchodilators and diuresing with IV push Lasix initiated in the ER. Chest x-ray reporting pulmonary vascularity increased, pulmonary fibrosis and COPD, suggesting mild heart failure-minimal blunting of costophrenic angles. Elevated troponins , proBNP 10,400 .EKG reporting atrial fibrillation, left anterior fascicular block. Echo of July 23 reported EF 35- 40%, moderate pulmonary hypertension, moderate to severe aortic regurgitation. Repeat echo ordered. Coronavirus, type a and B influenza not detected. Pro- calcitonin elevated, 0.17. INR 3.1. Renal function stable. Blood sugars controlled. Calcium 8.4. Afebrile, WBC 2.9. Electrolytes within normal limits. Review of Systems ROS Statement: Those systems with pertinent positive or pertinent negative responses have been documented in the HPI. ROS Other: All systems not noted in ROS Statement are negative. Past Medical History Past Medical History: Atrial Fibrillation, Heart Failure, COPD, GI Bleed, Hyperlipidemia, Pneumonia, Prostate Disorder, Renal Disease, Skin Disorder, Vascular Disorder Additional Past Medical History / Comment(s): GI bleed, gastritis, gastric ectasia, CKD stage III, past abdominal aortic aneurysm/had stent placed, varicosities, PVD, past shingellis and occasionally will have R flank nerve pain, BPH. History of Any Multi-Drug Resistant Organisms: None Reported Past Surgical History: Cardiac Valve Replacement, Cholecystectomy, Heart Catheterization Additional Past Surgical History / Comment(s): Stent placed for lower abd aortic aneurysym, mitral valve replacement/bicuspid repair, EGD with ablation, colonoscopy, excision L cheek lesion/mass and lesion from scalp/all benign, Past Anesthesia/Blood Transfusion Reactions: No Reported Reaction Date of Last Stent Placement:: 2015 Past Psychological History: Anxiety Smoking Status: Former smoker - Past Family History Mother Family Medical History: Myocardial Infarction ([place]) Additional Family Medical History / Comment(s): at a young age. Father Family Medical History: Hypertension Medications and Allergies Home Medications Medication Instructions Recorded Confirmed Type LORazepam [Ativan] 1 mg PO TID PRN 11/21/17 11/28/21 History Tamsulosin [Flomax] 0.4 mg PO DAILY 11/21/17 11/28/21 History Bisoprolol Fumarate 5 mg PO DAILY 12 Days #12 tablet 10/07/18 11/28/21 Rx Furosemide [Lasix] 40 mg PO Q48H 06/30/19 11/28/21 History Atorvastatin [Lipitor] 10 mg PO HS 07/20/21 11/28/21 History Fluticasone Propion/Salmeterol 1 puff IN RT-BID 07/20/21 11/28/21 History [Advair 100-50 Diskus] Levalbuterol Hfa Inhaler [Xopenex 2 puff INHALATION RT-Q4H PRN MDD 07/20/21 11/28/21 History Hfa Inhaler] 4X DAILY Warfarin Sodium [Jantoven] 2 mg PO SUMOTUFRSA 07/20/21 11/28/21 History Warfarin Sodium [Jantoven] 4 mg PO WETH 07/20/21 11/28/21 History predniSONE 5 mg PO DAILY 07/20/21 11/28/21 History Ascorbic Acid [Vitamin C] 1,000 mg PO DAILY 11/28/21 11/28/21 History Cyanocobalamin (Vitamin B-12) 1,000 mcg PO DAILY 11/28/21 11/28/21 History [Vitamin B-12] Furosemide [Lasix] 20 mg PO Q48H 11/28/21 11/28/21 History LORazepam [Ativan] 0.5 mg PO HS 11/28/21 11/28/21 History Tiotropium 2.5 Mcg/Puff [Spiriva 2 puff INHALATION RT-DAILY 11/28/21 11/28/21 History Respimat 2.5 Mcg] Allergies Allergy/AdvReac Type Severity Reaction Status Date / Time albuterol Allergy Rapid Verified 11/28/21 18:11 Heart Rate empagliflozin Allergy Dyspnea Verified 11/28/21 18:49 [From Jardiance] pain med (can't remember Allergy Hallucinati Uncoded 11/28/21 15:12 name) ons Patches on chest Allergy Swelling Uncoded 11/28/21 15:12 Physical Exam Vitals: Vital Signs Temp Pulse Pulse Resp BP BP Pulse Ox 11/29/21 14:00 88 11/29/21 12:00 98.5 F 92 18 125/62 94 L 11/29/21 08:00 97.5 F L 87 18 132/69 96 11/29/21 04:00 97.5 F L 97 18 137/75 93 L 11/29/21 02:00 86 18 11/29/21 00:00 97.8 F 86 18 116/72 92 L 11/28/21 20:15 98.0 F 103 H 18 118/70 92 L 11/28/21 20:00 98.0 F 103 H 18 118/70 92 L 11/28/21 18:00 86 20 124/68 93 L 11/28/21 16:17 85 11/28/21 16:07 100 Intake and Output 11/29/21 11/29/21 11/29/21 06:59 14:59 22:59 Intake Total 236 Output Total 575 650 Balance -575 -414 Intake: Oral 236 Output: Urine 575 650 Other: Voiding Method Urinal Toilet # Voids 2 Weight 65.6 kg PHYSICAL EXAM: VITAL SIGNS: As above GENERAL: Pleasant, Sitting up in bed, no acute distress HEENT: Conjunctivae normal. eyes normal. Oral mucosa dry NECK: Supple, No JVD. No thyroid enlargement. No LNs CARDIOVASCULAR: S1, S2 regular. Systolic murmur RESPIRATION: Unlabored, Breath sounds diminished in the bases. No rhonchi or crackles. Mild expiratory wheezing No bronchial breathing. ABDOMEN: Soft, nontender . No guarding. no masses palpable. No ascites, No hepatosplenomegaly.Bowel sounds heard. LEGS: 1+ bilateral lower extremity edema, positive DP pulses PSYCHIATRY: Alert and oriented X3, mood and affect normal. NERVOUS SYSTEM: Cranial N 2-12 grossly normal. Moves all 4 limbs. No focal deficits. Strength and sensation grossly intact.. Skin: Warm and dry, no rash Results CBC & Chem 7: 11/29/21 07:20 11/29/21 07:20 Labs: Abnormal Lab Results - Last 24 Hours (Table) 11/28/21 11/28/21 11/28/21 Range/Units 15:39 15:39 15:39 WBC (3.8-10.6) k/uL RBC 4.06 L (4.30-5.90) m/uL Hgb 12.7 L (13.0-17.5) gm/dL MCV (80.0-100.0) fL Lymphocytes # 0.5 L (1.0-4.8) k/uL PT 33.3 H (9.0-12.0) sec INR 3.3 H (<1.2) APTT 34.8 H (22.0-30.0) sec BUN (9-20) mg/dL Glucose 107 H (74-99) mg/dL POC Glucose (mg/dL) (70-110) mg/dL Troponin I (0.000-0.034) ng/mL Total Protein 6.2 L (6.3-8.2) g/dL Procalcitonin (0.02-0.09) ng/mL 11/28/21 11/28/21 11/28/21 Range/Units 15:39 18:24 21:35 WBC (3.8-10.6) k/uL RBC (4.30-5.90) m/uL Hgb (13.0-17.5) gm/dL MCV (80.0-100.0) fL Lymphocytes # (1.0-4.8) k/uL PT (9.0-12.0) sec INR (<1.2) APTT (22.0-30.0) sec BUN (9-20) mg/dL Glucose (74-99) mg/dL POC Glucose (mg/dL) (70-110) mg/dL Troponin I 0.080 H* 0.082 H* 0.078 H* (0.000-0.034) ng/mL Total Protein (6.3-8.2) g/dL Procalcitonin (0.02-0.09) ng/mL 11/28/21 11/29/21 11/29/21 Range/Units 21:40 05:59 07:20 WBC 2.9 L (3.8-10.6) k/uL RBC 3.96 L (4.30-5.90) m/uL Hgb 12.8 L (13.0-17.5) gm/dL MCV 101.0 H (80.0-100.0) fL Lymphocytes # 0.4 L (1.0-4.8) k/uL PT (9.0-12.0) sec INR (<1.2) APTT (22.0-30.0) sec BUN (9-20) mg/dL Glucose (74-99) mg/dL POC Glucose (mg/dL) 175 H (70-110) mg/dL Troponin I (0.000-0.034) ng/mL Total Protein (6.3-8.2) g/dL Procalcitonin 0.17 H (0.02-0.09) ng/mL 11/29/21 11/29/21 11/29/21 Range/Units 07:20 07:20 11:33 WBC (3.8-10.6) k/uL RBC (4.30-5.90) m/uL Hgb (13.0-17.5) gm/dL MCV (80.0-100.0) fL Lymphocytes # (1.0-4.8) k/uL PT 31.2 H (9.0-12.0) sec INR 3.1 H (<1.2) APTT (22.0-30.0) sec BUN 22 H (9-20) mg/dL Glucose 143 H (74-99) mg/dL POC Glucose (mg/dL) 189 H (70-110) mg/dL Troponin I (0.000-0.034) ng/mL Total Protein (6.3-8.2) g/dL Procalcitonin (0.02-0.09) ng/mL Thrombosis Risk Factor Assmnt - Choose All That Apply Each Risk Factor Represents 3 Points: Age 75 years or older Thrombosis Risk Factor Assessment Total Risk Factor Score: 3 Thrombosis Risk Factor Assessment Level: Moderate Risk Assessment and Plan Assessment: Acute on chronic CHF exacerbation, systolic dysfunction Acute on chronic hypoxic respiratory failure, wears 2 L at home Acute on chronic renal failure, stage III, baseline around 1.2, secondary to hypovolemia, hypercalcemia History of Right atypical renal cyst, 1.7 cm, bladder diverticulum demonstrating wall irregularity, mucosal lesion not excluded, follow-up with urology outpatient Elevated troponins, possibly secondary to CHF, cardiology following COPD Alcohol use, Daily alcohol consumption of 1-2 glasses of wine Mitral valve replacement, prosthetic valve on Coumadin Hyperlipidemia PVD with history of stented lower abdominal aortic aneurysm History of nicotine dependence, 3 packs per day History of anxiety Hyperlipidemia Plan: Continue on current medication regime ,monitoring and symptomatic treatment. 2-D echo pending, continue diuresing with Lasix IV push. Close monitoring of renal function, electrolytes with repeat labs ordered for a.m. daily PT INR. Anticoagulation with Coumadin . The impression and plan of care has been dictated as directed. : I performed a history and examination of this patient, discussed the same with the dictator. I agree with the dictator's note ,documented as a scribe. Any additional findings or plans will be noted. Past Medical History Past Medical History: Atrial Fibrillation, Heart Failure, COPD, GI Bleed, Hyperlipidemia, Pneumonia, Prostate Disorder, Renal Disease, Skin Disorder, Vascular Disorder Additional Past Medical History / Comment(s): GI bleed, gastritis, gastric ectasia, CKD stage III, past abdominal aortic aneurysm/had stent placed, varicosities, PVD, past shingellis and occasionally will have R flank nerve pain, BPH. History of Any Multi-Drug Resistant Organisms: None Reported Past Surgical History: Cardiac Valve Replacement, Cholecystectomy, Heart Catheterization Additional Past Surgical History / Comment(s): Stent placed for lower abd aortic aneurysym, mitral valve replacement/bicuspid repair, EGD with ablation, colonoscopy, excision L cheek lesion/mass and lesion from scalp/all benign, Past Anesthesia/Blood Transfusion Reactions: No Reported Reaction Date of Last Stent Placement:: 2015 Past Psychological History: Anxiety Smoking Status: Former smoker - Past Family History Mother Family Medical History: Myocardial Infarction ([place]) Additional Family Medical History / Comment(s): at a young age. Father Family Medical History: Hypertension Medications and Allergies Home Medications Medication Instructions Recorded Confirmed Type LORazepam [Ativan] 1 mg PO TID PRN 11/21/17 11/28/21 History Tamsulosin [Flomax] 0.4 mg PO DAILY 11/21/17 11/28/21 History Bisoprolol Fumarate 5 mg PO DAILY 12 Days #12 tablet 10/07/18 11/28/21 Rx Furosemide [Lasix] 40 mg PO Q48H 06/30/19 11/28/21 History Atorvastatin [Lipitor] 10 mg PO HS 07/20/21 11/28/21 History Fluticasone Propion/Salmeterol 1 puff IN RT-BID 07/20/21 11/28/21 History [Advair 100-50 Diskus] Levalbuterol Hfa Inhaler [Xopenex 2 puff INHALATION RT-Q4H PRN MDD 07/20/21 11/28/21 History Hfa Inhaler] 4X DAILY Warfarin Sodium [Jantoven] 2 mg PO SUMOTUFRSA 07/20/21 11/28/21 History Warfarin Sodium [Jantoven] 4 mg PO WETH 07/20/21 11/28/21 History predniSONE 5 mg PO DAILY 07/20/21 11/28/21 History Ascorbic Acid [Vitamin C] 1,000 mg PO DAILY 11/28/21 11/28/21 History Cyanocobalamin (Vitamin B-12) 1,000 mcg PO DAILY 11/28/21 11/28/21 History [Vitamin B-12] Furosemide [Lasix] 20 mg PO Q48H 11/28/21 11/28/21 History LORazepam [Ativan] 0.5 mg PO HS 11/28/21 11/28/21 History Tiotropium 2.5 Mcg/Puff [Spiriva 2 puff INHALATION RT-DAILY 11/28/21 11/28/21 History Respimat 2.5 Mcg] Allergies Allergy/AdvReac Type Severity Reaction Status Date / Time albuterol Allergy Rapid Verified 11/28/21 18:11 Heart Rate empagliflozin Allergy Dyspnea Verified 11/28/21 18:49 [From Jardiance] pain med (can't remember Allergy Hallucinati Uncoded 11/28/21 15:12 name) ons Patches on chest Allergy Swelling Uncoded 11/28/21 15:12 Physical Exam Vitals: Vital Signs Temp Pulse Pulse Resp BP Pulse Ox 12/01/21 08:10 98 12/01/21 08:00 98.0 F 98 80 18 132/59 96 12/01/21 03:10 97.6 F 84 18 119/74 97 11/30/21 23:24 98.1 F 92 18 104/66 94 L 11/30/21 19:45 97.8 F 103 H 20 126/74 94 L 11/30/21 16:06 98.0 F 89 18 124/69 97 11/30/21 12:00 97.4 F L 97 18 136/81 93 L Intake and Output 11/30/21 12/01/21 12/01/21 22:59 06:59 14:59 Intake Total 118 Output Total 750 300 Balance -632 -300 Intake: Oral 118 Output: Urine 750 300 Other: Voiding Method Toilet Toilet Toilet Weight 63.5 kg Results CBC & Chem 7: 11/29/21 07:20 12/01/21 08:49 Labs: Abnormal Lab Results - Last 24 Hours (Table) 11/30/21 11/30/21 12/01/21 Range/Units 16:47 20:04 06:22 PT (9.0-12.0) sec INR (<1.2) Chloride (98-107) mmol/L Carbon Dioxide (22-30) mmol/L BUN (9-20) mg/dL Creatinine (0.66-1.25) mg/dL Glucose (74-99) mg/dL POC Glucose (mg/dL) 133 H 135 H 148 H (70-110) mg/dL 12/01/21 12/01/21 12/01/21 Range/Units 08:49 08:49 11:39 PT 39.2 H (9.0-12.0) sec INR 3.9 H (<1.2) Chloride 97 L (98-107) mmol/L Carbon Dioxide 36 H (22-30) mmol/L BUN 45 H (9-20) mg/dL Creatinine 1.42 H (0.66-1.25) mg/dL Glucose 178 H (74-99) mg/dL POC Glucose (mg/dL) 143 H (70-110) mg/dL Microbiology - Last 24 Hours (Table) 11/28/21 15:39 Blood Culture - Preliminary Blood No Growth after 48 hours 11/28/21 15:39 Blood Culture - Preliminary Blood No Growth after 48 hours Thrombosis Risk Factor Assmnt - Choose All That Apply Each Risk Factor Represents 3 Points: Age 75 years or older Thrombosis Risk Factor Assessment Total Risk Factor Score: 3 Thrombosis Risk Factor Assessment Level: Moderate Risk
--- NOTE | 2021-12-01 12:14 | P.PN ---
Subjective This is a 81-year-old male with a past medical history significant for COPD with home oxygen use, tissue mitral valve replacement and tricuspid valve repair of [facility] in 2015, non-ischemic cardiomyopathy, paroxysmal atrial fibrillation on warfarin, hypertension, AAA, COPD, former tobacco use, pulmonary hypertension and hyperlipidemia. Patient follows in the office with Dr. Kramer. We have been asked to see the patient in consultation for congestive heart failure. Patient states he presented to the hospital with worsening shortness of breath, cough, generalized fatigue progressively worsening for 1 week. He states over the past week he is unable to walk his usual mile walk, or do his daily activities secondary to shortness of breath and fatigue. He also noticed worsening LE edema. He presented to his PCP and recommended patient be evaluated in the ER. He denies any changes to his medications, he does adhere to low salt diet. He denies any chest discomfort, lightheadedness, dizziness, syncope or near syncope. He denies any orthopnea or PND. He is able to lay flat in bed. He was started on IV Lasix and Duonebs in the ER with improvement in breathing. DIAGNOSTICS: * Echocardiogram 07/2021 revealed EF of 3540% by cystic mitral valve, moderate severe aortic regurgitation * Echo in May 2020 revealed ejection fraction 45-50%, mild LVH, mild aortic regurgitation, biological mitral valve prosthesis, annuloplasty ring tricuspid valve prosthesis, severe pulmonary artery hypertension 12/01 Patient seen and examined at bedside,Shortness of breath improved. Continues to have some shortness of breath with ambulating. Continues to be on IV Lasix 40mg BID. Patient with -1.4L urine output over the past 24 hours. Decrease in weight noted. Continues to be on coumadin INR 3.9. Sodium 142, potassium 3.9, BUN 45, serum creatinine 1.4. Echocardiogram: EF 2530 %moderate pulmonary hypertension, severely increased left atrial volume. Bioprosthetic mitral valve seems before functioning normally. Repair of Tricuspid valve with moderate tricuspid regurgitation. No evidence of pericardial effusion PHYSICAL EXAM: VITAL SIGNS: Reviewed. GENERAL: Well-developed in no acute distress. HEENT: Head is normocephalic. Neck supple. No JVD LUNGS: Respirations even and unlabored. Lungs with decreased air exchanged bilateral bases, expiratory wheezing has improved. HEART: Regular rate and rhythm. S1 and S2 heard. Soft systolic murmur noted. ABDOMEN: Soft. Nondistended. Nontender. EXTREMITIES: Normal range of motion. No clubbing or cyanosis. Peripheral pulses intact. 1+ bilateral lower extremity edema NEUROLOGIC: Awake and alert. Oriented x 3. ASSESSMENT: Acute on chronic heart failure with reduced ejection fraction Paroxysmal atrial fibrillation on coumadin Abnormal troponins, likely secondary to congestive heart failure History of Non-ischemic cardiomyopathy with improved EF COPD exacerbation with home oxygen use History of mitral valve replacement in 2014 History of tricuspid valve repair in 2015 History of AAA Hyperlipidemia PLAN: Stop IV Lasix, transition to PO 40mg daily Will optimize heart failure regimen, Continue beta bebo and spironolactone. patient started on valsartan Continue anticoagulation with coumadin. monitor INR Continue statin Consider Entresto and Tatiana as an outpatient From cardiology perspective, patient stable to be discharged. Follow up outpatient with Dr. Kramer. Patient has appointment on 12/12/2021 Nurse practitioner note has been reviewed by physician. Signing provider agrees with the documented findings, assessment, and plan of care. Objective - Vital Signs Vital signs: Vital Signs Temp 98.0 F 12/01/21 08:00 Pulse 80 12/01/21 08:00 Resp 18 12/01/21 08:00 BP 132/59 12/01/21 08:00 Pulse Ox 98 12/01/21 08:10 FiO2 Intake & Output 11/30/21 12/01/21 12/01/21 18:59 06:59 18:59 Intake Total 354 Output Total 1150 700 Balance -796 -700 Weight 63.5 kg Intake: Oral 354 Output: Urine 1150 700 Other: Voiding Method Toilet Toilet Toilet - Labs CBC & Chem 7: 11/29/21 07:20 12/01/21 08:49 Labs: Abnormal Lab Results - Last 24 Hours (Table) 11/30/21 11/30/21 12/01/21 Range/Units 16:47 20:04 06:22 PT (9.0-12.0) sec INR (<1.2) Chloride (98-107) mmol/L Carbon Dioxide (22-30) mmol/L BUN (9-20) mg/dL Creatinine (0.66-1.25) mg/dL Glucose (74-99) mg/dL POC Glucose (mg/dL) 133 H 135 H 148 H (70-110) mg/dL 12/01/21 12/01/21 12/01/21 Range/Units 08:49 08:49 11:39 PT 39.2 H (9.0-12.0) sec INR 3.9 H (<1.2) Chloride 97 L (98-107) mmol/L Carbon Dioxide 36 H (22-30) mmol/L BUN 45 H (9-20) mg/dL Creatinine 1.42 H (0.66-1.25) mg/dL Glucose 178 H (74-99) mg/dL POC Glucose (mg/dL) 143 H (70-110) mg/dL Microbiology - Last 24 Hours (Table) 11/28/21 15:39 Blood Culture - Preliminary Blood No Growth after 48 hours 11/28/21 15:39 Blood Culture - Preliminary Blood No Growth after 48 hours
[2021-12-01] MEDS: LORazepam 1 MG TAB PO PRN (13:24)
--- NOTE | 2021-12-01 13:43 | P.PN ---
Subjective Progress Note Date: 12/01/21 Principal diagnosis: Acute on chronic hypoxic respiratory failure, multifactorial This is a pleasant 81-year-old male patient with a known history of chronic obstructive pulmonary disease with previous [place] valve placement at [facility] 2-3 years ago, he has been maintained on Wixella, Spiriva, Xopenex in the outpatient setting. He also has a history of secondary pulmonary hypertension and follows at the [facility] pulmonary hypertension clinic. He has chronic hypoxemic respiratory failure maintained on home oxygen at 2 L/m per nasal cannula, paroxysmal atrial fibrillation anticoagulated with warfarin, hypertension, hyperlipidemia. He presented here to the emergency room yesterday with complaints of increasing shortness of breath, fatigue, dyspnea on exertion. No fever chills. No cough or congestion. Chest x-ray revealed mild pulmonary vascular congestion with mild heart failure. Evidence of pulmonary fibrosis and COPD. Echocardiogram reveals impaired left ventricular systolic function with ejection fraction of 25-30%. There is moderate pulmonary hypertension with an RVSP of 48 mmHg. Bioprosthetic mitral valve with moderate calcification, status post tricuspid valve repair. White count 2.9. Hemoglobin 12.8. INR 3.1. Sodium 141. Potassium 3.9. BUN 22. Creatinine 1.23. Glucose 143. Pro-calcitonin 0.17. Troponin troponin 0.078. ProBNP 10,400. Fatima virus and influenza screen was negative. He is seen today in consultation on the selective care unit. Currently resting quite comfortably in bed. Awake and alert in no acute distress. Lungs sounds with minimal crackles bilaterally. He is maintaining O2 saturations in the 90s on 3 L/m per nasal cannula. He's been afebrile. Hemodynamically stable. Initiated on Lasix 40 mg IV every 12 hours along with Aldactone. Anticoagulated with warfarin. Remains on Symbicort and DuoNeb inhalations. The patient is seen today 08/30/2021 in follow-up on the selective care unit. He is currently sitting in a bed and chair at the bedside. Awake and alert in no acute distress. Doing better today compared to yesterday. Maintaining O2 saturations in the 90s on 3 L/m per nasal cannula. He's been afebrile. Hemodynamically stable. He is continued on Symbicort, DuoNeb's, IV Solu-Medrol. Anticoagulated with warfarin. Remains on IV diuretics. Currently in a negative balance. Reevaluated today on 08/31/21, patient remains on 3 L nasal cannula, O2 sats is 98%, described shortness of breath with any activity, and I explained to the patient that his shortness of breath will not changed much considering his severe cardiomyopathy LV dysfunction and considering his underlying COPD. That combination is a bad combination, and he will only be short of breath upon exertion. In the meantime I have recommended that we continue his cardiac meds, diuretics, and bronchodilators as well as steroids. And continue oxygen. already has oxygen at home. Patient cannot use albuterol, and I suggested that he brings in his own Xopenex from home Objective - Vital Signs Vital signs: Vital Signs Temp 98.0 F 12/01/21 08:00 Pulse 80 12/01/21 08:00 Resp 18 12/01/21 08:00 BP 132/59 12/01/21 08:00 Pulse Ox 98 12/01/21 08:10 FiO2 Intake & Output 11/30/21 12/01/21 12/01/21 18:59 06:59 18:59 Intake Total 354 Output Total 1150 700 Balance -796 -700 Weight 63.5 kg Intake: Oral 354 Output: Urine 1150 700 Other: Voiding Method Toilet Toilet Toilet - Exam Physical Exam: Revealed 81-year-old white male, in mild distress, he is on few liters nasal cannula. O2 sat is 98% on 3 L. Head: Atraumatic, normocephalic. HEENT:[Neck is supple.] [No neck masses.] [No thyromegaly.] [No JVD.] Chest: [Extremely diminished breath sound bilaterally no crackles or rhonchi or wheezes] Cardiac Exam: [Distant S1 and S2, no S3 gallop, 2/6 systolic murmur thought the precordium. Abdomen: [Soft, nontender, no megaly, no rebound, no guarding, normal bowel sounds.] Extremities: [No clubbing, no edema, no cyanosis.] Neurological Exam: [No focal neurologic deficit.] Alert oriented 3 no gross focal deficit Psychiatric: Anxious, normal affect, normal mental status examination. Skin: No rashes. - Labs CBC & Chem 7: 11/29/21 07:20 12/01/21 08:49 Labs: Abnormal Lab Results - Last 24 Hours (Table) 11/30/21 11/30/21 12/01/21 Range/Units 16:47 20:04 06:22 PT (9.0-12.0) sec INR (<1.2) Chloride (98-107) mmol/L Carbon Dioxide (22-30) mmol/L BUN (9-20) mg/dL Creatinine (0.66-1.25) mg/dL Glucose (74-99) mg/dL POC Glucose (mg/dL) 133 H 135 H 148 H (70-110) mg/dL 12/01/21 12/01/21 12/01/21 Range/Units 08:49 08:49 11:39 PT 39.2 H (9.0-12.0) sec INR 3.9 H (<1.2) Chloride 97 L (98-107) mmol/L Carbon Dioxide 36 H (22-30) mmol/L BUN 45 H (9-20) mg/dL Creatinine 1.42 H (0.66-1.25) mg/dL Glucose 178 H (74-99) mg/dL POC Glucose (mg/dL) 143 H (70-110) mg/dL Microbiology - Last 24 Hours (Table) 11/28/21 15:39 Blood Culture - Preliminary Blood No Growth after 48 hours 11/28/21 15:39 Blood Culture - Preliminary Blood No Growth after 48 hours Assessment and Plan Assessment: Impression: Acute on chronic hypoxic respiratory failure multifactorial secondary to acute exacerbation of chronic systolic congestive heart failure severe pulmonary hypertension severe underlying COPD and paroxysmal atrial fibrillation Severe pulmonary hypertension History of bioprosthetic mitral valve Severe cardiomyopathy and LV dysfunction with ejection fraction of 25-30% History of COPD and previous zephyr placement Paroxysmal atrial fibrillation Benign essential hypertension Recommendation: Continue present supportive care measures Continue diuretics Continue bronchodilators Continue steroids Patient to bring his own Xopenex since we don't have Xopenex on the formulary and he cannot take albuterol We will continue to follow. Time with Patient: Less than 30
--- NOTE | 2021-12-01 13:50 | P.PN ---
Subjective Progress Note Date: 12/01/21 H&P Date: 11/29/21 Chief Complaint: Worsening dyspnea This is a 81-year-old gentlemanwith history of COPD, chronic hypoxic respiratory failure-rays 2 L nasal cannula at home, hyperlipidemia,vascular disorder, abdominal aortic aneurysm with stent placement, Lin lozano fib, mitral valve replacement-prosthetic on Coumadin, anxiety, former nicotine dependence, daily wine intake, initially presented to PCPs office who transferred patient the EMS to the ER regarding CHF exacerbation, hypoxic respiratory failure. Patient complained of worsening dyspnea with exhaustion and lower extremity edema over the last 2 weeks. Denies orthopnea. Denies syncope. Normally patient walks 2 miles daily. Follows with both pulmonary and cardiology with [facility] .Nebulized bronchodilators and diuresing with IV push Lasix initiated in the ER. Chest x-ray reporting pulmonary vascularity increased, pulmonary fibrosis and COPD, suggesting mild heart failure-minimal blunting of costophrenic angles. Elevated troponins , proBNP 10,400 .EKG reporting atrial fibrillation, left anterior fascicular block. Echo of July 23 reported EF 35- 40%, moderate pulmonary hypertension, moderate to severe aortic regurgitation. Repeat echo ordered. Coronavirus, type a and B influenza not detected. Pro- calcitonin elevated, 0.17. INR 3.1. Renal function stable. Blood sugars controlled. Calcium 8.4. Afebrile, WBC 2.9. Electrolytes within normal limits. 11/30/2021 valsartan initiated yesterday, in addition to Aldactone, beta bebo. maintained on nebulized bronchodilators, IV steroids. Diuresing well on IV diuretics with 24-hour I&O reflecting a negative fluid balance.Creatinine stable 1.21. Breathing continues to improve, denies chest pain, palpitations or increased shortness of breath. Maintaining O2 sats in the 90s on 3 L nasal cannula. Echo reported severe he impaired LV function, EF 25-30%, normal functioning bioprosthetic mitral valve , moderate tricuspid regurgitation.Anticoagulated on Coumadin, INR 3.2. Afebrile. 12/01/2021 maintaining O2 sats in the high 90s on 3 L nasal cannula. Reports significant exertional shortness of breath. Denies chest pain, palpitations. Worsened renal function, transitioned to oral Lasix. Objective - Vital Signs Vital signs: Vital Signs Temp 98.0 F 12/01/21 08:00 Pulse 80 12/01/21 08:00 Resp 18 12/01/21 08:00 BP 132/59 12/01/21 08:00 Pulse Ox 98 12/01/21 08:10 FiO2 Intake & Output 11/30/21 12/01/21 12/01/21 18:59 06:59 18:59 Intake Total 354 Output Total 1150 700 Balance -796 -700 Weight 63.5 kg Intake: Oral 354 Output: Urine 1150 700 Other: Voiding Method Toilet Toilet Toilet - Exam PHYSICAL EXAM: VITAL SIGNS: As above GENERAL: Pleasant, Sitting up in bed, no acute distress HEENT: Conjunctivae normal. eyes normal. Oral mucosa dry NECK: Supple, No JVD. No thyroid enlargement. No LNs CARDIOVASCULAR: S1, S2 regular. Systolic murmur RESPIRATION: Unlabored, Breath sounds diminished in the bases. ABDOMEN: Soft, nontender . No guarding. no masses palpable. Bowel sounds heard. LEGS: No edema, no clubbing or cyanosis, positive DP pulses PSYCHIATRY: Alert and oriented X3, mood and affect normal. NERVOUS SYSTEM: Cranial N 2-12 grossly normal.No focal deficits. Strength and sensation grossly intact. Skin: Warm and dry, no rash - Labs CBC & Chem 7: 11/29/21 07:20 12/01/21 08:49 Labs: Abnormal Lab Results - Last 24 Hours (Table) 11/30/21 11/30/21 12/01/21 Range/Units 16:47 20:04 06:22 PT (9.0-12.0) sec INR (<1.2) Chloride (98-107) mmol/L Carbon Dioxide (22-30) mmol/L BUN (9-20) mg/dL Creatinine (0.66-1.25) mg/dL Glucose (74-99) mg/dL POC Glucose (mg/dL) 133 H 135 H 148 H (70-110) mg/dL 12/01/21 12/01/21 12/01/21 Range/Units 08:49 08:49 11:39 PT 39.2 H (9.0-12.0) sec INR 3.9 H (<1.2) Chloride 97 L (98-107) mmol/L Carbon Dioxide 36 H (22-30) mmol/L BUN 45 H (9-20) mg/dL Creatinine 1.42 H (0.66-1.25) mg/dL Glucose 178 H (74-99) mg/dL POC Glucose (mg/dL) 143 H (70-110) mg/dL Microbiology - Last 24 Hours (Table) 11/28/21 15:39 Blood Culture - Preliminary Blood No Growth after 48 hours 11/28/21 15:39 Blood Culture - Preliminary Blood No Growth after 48 hours Assessment and Plan Assessment: Acute on chronic CHF exacerbation, systolic dysfunction, reduced EF per current echo Acute on chronic hypoxic respiratory failure, wears 2 L at home Acute on chronic renal failure, stage III, baseline around 1.2, secondary to hypovolemia, hypercalcemia History of Right atypical renal cyst, 1.7 cm, bladder diverticulum demonstrating wall irregularity, mucosal lesion not excluded, follow-up with urology outpatient Elevated troponins, possibly secondary to CHF, cardiology following Paroxysmal atrial fibrillation COPD Alcohol use, Daily alcohol consumption of 1-2 glasses of wine Mitral valve replacement, prosthetic valve on Coumadin Hyperlipidemia PVD with history of stented lower abdominal aortic aneurysm History of nicotine dependence, 3 packs per day History of anxiety Hyperlipidemia Plan: Continue on current medication regime ,monitoring and symptomatic treatment. Maintain nebulized bronchodilators, IV steroids and having someone bring in his Xopenex .Diuretics transitioned to oral. Close monitoring of renal function, electrolytes with repeat labs ordered for a.m. daily PT INR. Anticoagulation with Coumadin/per pharmacy dosing . Discharge planning in progress tentatively for tomorrow. The impression and plan of care has been dictated as directed. : I performed a history and examination of this patient, discussed the same with the dictator. I agree with the dictator's note ,documented as a scribe. Any additional findings or plans will be noted.
[2021-12-01 16:45] LABS: Glucose,Whole Blood 182 mg/dL (70-110)
[2021-12-01] MEDS ORDERED: WARFARIN 0.5 MG TAB PO ONE (18:00)
[2021-12-01] MEDS ORDERED: WARFARIN 2 MG TAB PO SCH (18:00)
[2021-12-01 19:54] LABS: Glucose,Whole Blood 270 mg/dL (70-110)
[2021-12-01] MEDS: ATORVASTATIN 10 MG TAB PO SCH (20:44)
[2021-12-02 06:20] LABS: Glucose,Whole Blood 142 mg/dL (70-110)
[2021-12-02] MEDS: INSULIN ASPART (NovoLOG) 100 UNIT/ML VIAL SQ SCH (06:23)
[2021-12-02 07:25] LABS: INR 3.6 (<1.2); Prothrombin Time 35.5 sec (9.0-12.0)
[2021-12-02 07:34] LABS: Calcium 8.8 mg/dL (8.4-10.2); Potassium 3.7 mmol/L (3.5-5.1)
[2021-12-02] MEDS: SYMBICORT 80-4.5 MCG INHALER INHALATION SCH (08:10)
[2021-12-02] MEDS: PANTOPRAZOLE 40 MG TABLET PO SCH (08:40)
[2021-12-02] MEDS: FUROSEMIDE 40 MG TAB PO SCH (08:41)
[2021-12-02] MEDS: VALSARTAN 40 MG TAB PO SCH (08:41)
[2021-12-02] MEDS: methylPREDNISolone SOD SUCCI 40 MG/ML 1 ML VIAL IV SCH (08:41)
[2021-12-02] MEDS: TAMSULOSIN 0.4 MG CAP.ER.24H PO SCH (08:41)
[2021-12-02] MEDS: SPIRONOLACTONE 25 MG TAB PO SCH (08:41)
[2021-12-02] MEDS ORDERED: BISOPROLOL 5 MG TAB PO SCH (09:00)
[2021-12-02 10:07] VITALS: TEMP 98.2
[2021-12-02] MEDS ORDERED: predniSONE 10 MG TAB PO SCH (11:45)
--- NOTE | 2021-12-02 11:45 | P.PN ---
Subjective Progress Note Date: 12/02/21 Principal diagnosis: Acute on chronic hypoxic respiratory failure, multifactorial This is a pleasant 81-year-old male patient with a known history of chronic obstructive pulmonary disease with previous [place] valve placement at [facility] 2-3 years ago, he has been maintained on Wixella, Spiriva, Xopenex in the outpatient setting. He also has a history of secondary pulmonary hypertension and follows at the [facility] pulmonary hypertension clinic. He has chronic hypoxemic respiratory failure maintained on home oxygen at 2 L/m per nasal cannula, paroxysmal atrial fibrillation anticoagulated with warfarin, hypertension, hyperlipidemia. He presented here to the emergency room yesterday with complaints of increasing shortness of breath, fatigue, dyspnea on exertion. No fever chills. No cough or congestion. Chest x-ray revealed mild pulmonary vascular congestion with mild heart failure. Evidence of pulmonary fibrosis and COPD. Echocardiogram reveals impaired left ventricular systolic function with ejection fraction of 25-30%. There is moderate pulmonary hypertension with an RVSP of 48 mmHg. Bioprosthetic mitral valve with moderate calcification, status post tricuspid valve repair. White count 2.9. Hemoglobin 12.8. INR 3.1. Sodium 141. Potassium 3.9. BUN 22. Creatinine 1.23. Glucose 143. Pro-calcitonin 0.17. Troponin troponin 0.078. ProBNP 10,400. Fatima virus and influenza screen was negative. He is seen today in consultation on the selective care unit. Currently resting quite comfortably in bed. Awake and alert in no acute distress. Lungs sounds with minimal crackles bilaterally. He is maintaining O2 saturations in the 90s on 3 L/m per nasal cannula. He's been afebrile. Hemodynamically stable. Initiated on Lasix 40 mg IV every 12 hours along with Aldactone. Anticoagulated with warfarin. Remains on Symbicort and DuoNeb inhalations. The patient is seen today 08/30/2021 in follow-up on the selective care unit. He is currently sitting in a bed and chair at the bedside. Awake and alert in no acute distress. Doing better today compared to yesterday. Maintaining O2 saturations in the 90s on 3 L/m per nasal cannula. He's been afebrile. Hemodynamically stable. He is continued on Symbicort, DuoNeb's, IV Solu-Medrol. Anticoagulated with warfarin. Remains on IV diuretics. Currently in a negative balance. Reevaluated today on 12/01/21, patient remains on 3 L nasal cannula, O2 sats is 98%, described shortness of breath with any activity, and I explained to the patient that his shortness of breath will not changed much considering his severe cardiomyopathy LV dysfunction and considering his underlying COPD. That combination is a bad combination, and he will only be short of breath upon exertion. In the meantime I have recommended that we continue his cardiac meds, diuretics, and bronchodilators as well as steroids. And continue oxygen. already has oxygen at home. Patient cannot use albuterol, and I suggested that he brings in his own Xopenex from home Patient was reevaluated today on 12/02/21, patient seems to be doing better today, breathing easier, patient would like to be discharged home, and I will clear the patient is cleared by cardiology to be discharged home today. He needs to continue his cardiac meds and her bronchodilators and he will need pr ednisone tapered over the next few weeks. INR today is 3.6 Celexa lites are normal and his 50 creatinine 1.30, patient is on Lasix 40 mg daily, is also on Aldactone 12.5 mg daily. If discharged home the patient will need to be on prednisone 30 mg tapered over 2 weeks, patient is to resume his pulmonary medications and bronchodilators at home including Xopenex which we don't have on formulary. Patient is also co-to go back on his updrafts and on his Symbicort Objective - Vital Signs Vital signs: Vital Signs Temp 98.2 F 12/02/21 08:00 Pulse 93 12/02/21 08:00 Resp 20 12/02/21 08:00 BP 130/60 12/02/21 08:00 Pulse Ox 100 12/02/21 08:00 FiO2 Intake & Output 12/01/21 12/02/21 12/02/21 18:59 06:59 18:59 Intake Total 598 Output Total 600 Balance -2 Intake: Oral 598 Output: Urine 600 Other: Voiding Method Toilet Toilet Toilet - Exam Physical Exam: Revealed 81-year-old white male, in mild distress Head: Atraumatic, normocephalic. HEENT:[Neck is supple.] [No neck masses.] [No thyromegaly.] [No JVD.] Chest: [Extremely diminished breath sound bilaterally no crackles or rhonchi or wheezes] Cardiac Exam: [Distant S1 and S2, no S3 gallop, 2/6 systolic murmur thought the precordium. Abdomen: [Soft, nontender, no megaly, no rebound, no guarding, normal bowel sounds.] Extremities: [No clubbing, no edema, no cyanosis.] Neurological Exam: [No focal neurologic deficit.] Alert oriented 3 no gross focal deficit Psychiatric: Anxious, normal affect, normal mental status examination. Skin: No rashes. - Labs CBC & Chem 7: 11/29/21 07:20 12/02/21 06:35 Labs: Abnormal Lab Results - Last 24 Hours (Table) 12/01/21 12/01/21 12/01/21 Range/Units 11:39 16:43 19:53 PT (9.0-12.0) sec INR (<1.2) Carbon Dioxide (22-30) mmol/L BUN (9-20) mg/dL Creatinine (0.66-1.25) mg/dL Glucose (74-99) mg/dL POC Glucose (mg/dL) 143 H 182 H 270 H (70-110) mg/dL 12/02/21 12/02/21 12/02/21 Range/Units 06:19 06:35 06:35 PT 35.5 H (9.0-12.0) sec INR 3.6 H (<1.2) Carbon Dioxide 34 H (22-30) mmol/L BUN 50 H (9-20) mg/dL Creatinine 1.30 H (0.66-1.25) mg/dL Glucose 130 H (74-99) mg/dL POC Glucose (mg/dL) 142 H (70-110) mg/dL Microbiology - Last 24 Hours (Table) 11/28/21 15:39 Blood Culture - Preliminary Blood No Growth after 72 hours 11/28/21 15:39 Blood Culture - Preliminary Blood No Growth after 72 hours Assessment and Plan Assessment: Impression: Acute on chronic hypoxic respiratory failure multifactorial secondary to acute exacerbation of chronic systolic congestive heart failure severe pulmonary hypertension severe underlying COPD and paroxysmal atrial fibrillation Severe pulmonary hypertension History of bioprosthetic mitral valve Severe cardiomyopathy and LV dysfunction with ejection fraction of 25-30% History of COPD and previous zephyr placement Paroxysmal atrial fibrillation Benign essential hypertension Recommendation: We'll clear the patient to be discharged home if cleared by cardiology Patient to resume his bronchodilators at home including Xopenex and Symbicort as well as updrafts Patient to go on prednisone 30 mg for 5 days 20 mg daily for 5 days and 10 mg daily for 5 days Patient to see us in the office within 1-2 weeks Continue present supportive care measures Continue diuretics, on Lasix 40 mg by mouth daily. Time with Patient: Less than 30
--- NOTE | 2021-12-02 11:55 | P.DS ---
Providers Date of admission: 12/01/21 08:09 Expected date of discharge: 12/02/21 Attending physician: Tan Bey Consults: 11/28/21 17:21 Consult Physician Routine Consulting Provider: [facility] Consult Reason/Comments: chf exacerbation Do you want consulting provider notified?: Yes, Notify in am 11/28/21 18:08 Consult Physician Routine Consulting Provider: Yesika Castañeda Consult Reason/Comments: copd,chf,resp failure Do you want consulting provider notified?: Yes Primary care physician: Tan Bey Assessment: Visiting nurse scheduled for outpatient in-home visits Visiting physical therapist scheduled for outpatient in-home visits Scheduled patient for outpatient cardiac rehab Health Concerns: General: [Patient awake, alert and oriented times 3. Patient in no acute distress.] HEENT: [PERRL. EOMI. No pharyngeal erythema or exudate.] Neck: [No adenopathy.] Cardiac: [Heart regular in rate and rhythm. No S3. No S4. No clicks, rubs. No murmur.] Lungs: Diminished breath sounds with bibasilar crackles Abdomen: [No mass. No organomegaly. Bowel sounds presnt and normoactive in all 4 quadrants.] Extremes: [No edema no cyanosis no claudication normal pulses] : Normal male genitalia Musculoskeletal: [No joint erythema, edema or tenderness.] Skin: [No rash.] Neurologic: [No lateralizing deficits. CN II - XII grossly intact.] Lymphatic: [No adenopathy.] Patient Condition at Discharge: Stable Plan - Discharge Summary Discharge Rx Participant: No New Discharge Prescriptions: No Action LORazepam [Ativan] 1 mg PO TID PRN PRN Reason: Anxiety Tamsulosin [Flomax] 0.4 mg PO DAILY Bisoprolol Fumarate 5 mg PO DAILY 12 Days #12 tablet Furosemide [Lasix] 40 mg PO Q48H Atorvastatin [Lipitor] 10 mg PO HS Fluticasone Propion/Salmeterol [Advair 100-50 Diskus] 1 puff IN RT-BID Warfarin Sodium [Jantoven] 4 mg PO WETH Warfarin Sodium [Jantoven] 2 mg PO SUMOTUFRSA Furosemide [Lasix] 20 mg PO Q48H Levalbuterol Hfa Inhaler [Xopenex Hfa Inhaler] 2 puff INHALATION RT-Q4H PRN MDD 4X DAILY PRN Reason: Shortness Of Breath predniSONE 5 mg PO DAILY Cyanocobalamin (Vitamin B-12) [Vitamin B-12] 1,000 mcg PO DAILY LORazepam [Ativan] 0.5 mg PO HS Ascorbic Acid [Vitamin C] 1,000 mg PO DAILY Tiotropium 2.5 Mcg/Puff [Spiriva Respimat 2.5 Mcg] 2 puff INHALATION RT-DAILY Discharge Medication List LORazepam [Ativan] 1 mg PO TID PRN 11/21/17 [History] Tamsulosin [Flomax] 0.4 mg PO DAILY 11/21/17 [History] Bisoprolol Fumarate 5 mg PO DAILY 12 Days #12 tablet 10/07/18 [Rx] Furosemide [Lasix] 40 mg PO Q48H 06/30/19 [History] Atorvastatin [Lipitor] 10 mg PO HS 07/20/21 [History] Fluticasone Propion/Salmeterol [Advair 100-50 Diskus] 1 puff IN RT-BID 07/20/21 [History] Levalbuterol Hfa Inhaler [Xopenex Hfa Inhaler] 2 puff INHALATION RT-Q4H PRN MDD 4X DAILY 07/20/21 [History] Warfarin Sodium [Jantoven] 2 mg PO SUMOTUFRSA 07/20/21 [History] Warfarin Sodium [Jantoven] 4 mg PO WETH 07/20/21 [History] predniSONE 5 mg PO DAILY 07/20/21 [History] Ascorbic Acid [Vitamin C] 1,000 mg PO DAILY 11/28/21 [History] Cyanocobalamin (Vitamin B-12) [Vitamin B-12] 1,000 mcg PO DAILY 11/28/21 [History] Furosemide [Lasix] 20 mg PO Q48H 11/28/21 [History] LORazepam [Ativan] 0.5 mg PO HS 11/28/21 [History] Tiotropium 2.5 Mcg/Puff [Spiriva Respimat 2.5 Mcg] 2 puff INHALATION RT-DAILY 11/28/21 [History] Follow up Appointment(s)/Referral(s): Silvino Kramer MD [STAFF PHYSICIAN] - 12/12/21 10:45 am (SATURDAY) [facility],Cardiac [NON-STAFF] - 1 Week (RN called extension and left message with patient name and phone number listed on chart for a new referral. If you do not recieve a call Saturday to set up Cardiac Rehab please call [phone].) Tan Bey Jr, [Primary Care Provider] - 12/05/21 2:00 pm (SATURDAY) Patient Instructions/Handouts: Heart Failure (DC), COPD (Chronic Obstructive Pulmonary Disease) (DC) Discharge Disposition: HOME WITH HOME HEALTH SERVICES Plan of Treatment: [facility] visiting nurse for home visits Visiting physical therapist for home visits Schedule outpatient cardiac rehab
[2021-12-02] MEDS ORDERED: IPRATROPIUM 0.5 MG/2.5 ML NEBU INHALATION SCH (12:00)
--- NOTE | 2021-12-02 12:04 | P.PN ---
Subjective Progress Note Date: 12/02/21 Patient is examined up walking around the room today doing well. He does have shortness of breath with activity. But once he sits shortness of breath subsides. He states he is doing well. Much better than when he came in. He will continue on 40 mg by mouth Lasix. Vital signs are stable heart rate is 89 and blood pressure is 125/73. His creatinine has improved down to 1.3. INR today is 3.6. Coumadin has been adjusted accordingly. Patient is cleared to be discharged home from a cardiac standpoint. Objective - Vital Signs Vital signs: Vital Signs Temp 97.9 F 12/01/21 20:00 Pulse 89 12/02/21 04:00 Resp 18 12/02/21 04:00 BP 125/73 12/02/21 04:00 Pulse Ox 97 12/02/21 04:00 FiO2 Intake & Output 12/01/21 12/02/21 12/02/21 18:59 06:59 18:59 Intake Total 598 Output Total 600 Balance -2 Intake: Oral 598 Output: Urine 600 Other: Voiding Method Toilet Toilet - Exam PHYSICAL EXAM: VITAL SIGNS: Reviewed. GENERAL: Well-developed in no acute distress. HEENT: Head is normocephalic. Pupils are equal, round. Sclerae anicteric. Mucous membranes of the mouth are moist. NECK: Supple. No JVD or thyromegaly RESPIRATORY: Respirations even and unlabored. Lungs diminished to auscultation bilaterally. On oxygen CARDIO: Regular rate and rhythm. S1 and S2 heard. No murmur or gallops. EXTREMITIES: Normal range of motion. No clubbing or cyanosis. Peripheral pulses intact. Negative for bilateral lower extremity edema NEURO: Orientated to person, time, mood is appropriate - Labs CBC & Chem 7: 11/29/21 07:20 12/02/21 06:35 Labs: Abnormal Lab Results - Last 24 Hours (Table) 12/01/21 12/01/21 12/01/21 Range/Units 11:39 16:43 19:53 PT (9.0-12.0) sec INR (<1.2) Carbon Dioxide (22-30) mmol/L BUN (9-20) mg/dL Creatinine (0.66-1.25) mg/dL Glucose (74-99) mg/dL POC Glucose (mg/dL) 143 H 182 H 270 H (70-110) mg/dL 12/02/21 12/02/21 12/02/21 Range/Units 06:19 06:35 06:35 PT 35.5 H (9.0-12.0) sec INR 3.6 H (<1.2) Carbon Dioxide 34 H (22-30) mmol/L BUN 50 H (9-20) mg/dL Creatinine 1.30 H (0.66-1.25) mg/dL Glucose 130 H (74-99) mg/dL POC Glucose (mg/dL) 142 H (70-110) mg/dL Microbiology - Last 24 Hours (Table) 11/28/21 15:39 Blood Culture - Preliminary Blood No Growth after 72 hours 11/28/21 15:39 Blood Culture - Preliminary Blood No Growth after 72 hours Assessment and Plan Assessment: Acute on chronic heart failure with reduced ejection fraction Paroxysmal atrial fibrillation on coumadin Abnormal troponins, likely secondary to congestive heart failure History of Non-ischemic cardiomyopathy with improved EF COPD exacerbation with home oxygen use History of mitral valve replacement in 2014 History of tricuspid valve repair in 2014 History of AAA Hyperlipidemia Plan: Continue with oral Lasix Will optimize heart failure regimen, Continue beta bebo and spironolactone. patient started on valsartan Continue anticoagulation with coumadin. monitor INR Continue statin Consider Entresto and Jardiance as an outpatient From cardiology perspective, patient stable to be discharged. Follow up ou tpatient with Dr. Kramer. Patient has appointment on 12/12/2021 Nurse practitioner note has been reviewed by physician. Signing provider agrees with the documented findings, assessment, and plan of care.
[2021-12-02 14:04] VITALS: BP 128/64; PULSE 98; RESP 16
[2021-12-02] MEDS ORDERED: WARFARIN 0.5 MG TAB PO ONE (18:00)
[2021-12-02] MEDS ORDERED: LORazepam 0.5 MG TAB PO SCH (21:00)
[2021-12-03] MEDS ORDERED: FUROSEMIDE 20 MG TAB PO SCH (09:00)
[2021-12-03] MEDS ORDERED: CYANOCOBALAMIN 500 MCG TAB PO SCH (09:00)
== END 2021-12-02 12:15 | disposition home health service (06) | DRG 291 ==
LOC: EC 14:58 → 3SCARD 17:22 → OBSVTOIN 12-01 08:09
PROVIDERS: ADMIT Family Medicine; ATTEND Family Medicine
DX: I13.0 Hypertensive heart and chronic kidney disease with heart failure and stage 1 through stage 4 chronic kidney disease, or unspecified chronic kidney disease (principal); I50.23 Acute on chronic systolic (congestive) heart failure; J96.21 Acute and chronic respiratory failure with hypoxia; J44.0 Chronic obstructive pulmonary disease with (acute) lower respiratory infection; J44.1 Chronic obstructive pulmonary disease with (acute) exacerbation; N17.9 Acute kidney failure, unspecified; Z20.822 Contact with and (suspected) exposure to COVID-19; I48.0 Paroxysmal atrial fibrillation; I73.9 Peripheral vascular disease, unspecified; N18.30 Chronic kidney disease, stage 3 unspecified; I71.4 Abdominal aortic aneurysm, without rupture; J84.10 Pulmonary fibrosis, unspecified; I27.21 Secondary pulmonary arterial hypertension; I42.8 Other cardiomyopathies; I44.4 Left anterior fascicular block; N32.3 Diverticulum of bladder; I35.1 Nonrheumatic aortic (valve) insufficiency; I37.1 Nonrheumatic pulmonary valve insufficiency; E78.5 Hyperlipidemia, unspecified; E83.52 Hypercalcemia; I27.29 Other secondary pulmonary hypertension; R79.89 Other specified abnormal findings of blood chemistry; E86.1 Hypovolemia; N40.0 Benign prostatic hyperplasia without lower urinary tract symptoms; K29.70 Gastritis, unspecified, without bleeding; F41.9 Anxiety disorder, unspecified; Z99.81 Dependence on supplemental oxygen; Z95.3 Presence of xenogenic heart valve; Z88.8 Allergy status to other drugs, medicaments and biological substances; Z79.01 Long term (current) use of anticoagulants; Z79.899 Other long term (current) drug therapy; Z87.891 Personal history of nicotine dependence; Z82.49 Family history of ischemic heart disease and other diseases of the circulatory system; Z79.52 Long term (current) use of systemic steroids; Z87.01 Personal history of pneumonia (recurrent); Z90.49 Acquired absence of other specified parts of digestive tract; Z87.19 Personal history of other diseases of the digestive system
CPT/HCPCS: 36415; 71045; 71046; 80048; 80053; 83036; 83735; 83880; 84145; 84484; 85025; 85610; 85730; 87040; 87502; 87635; 93005; 93306; 94640; 94760; 96374; 96375; 99285

== ENCOUNTER 2021-12-17 07:53 | Inpatient (IN) | payer MEDICARE, BC ==
[2021-12-17] MEDS ORDERED: IPRATROPIUM 0.5 MG/2.5 ML NEBU INHALATION STA (08:00)
[2021-12-17] MEDS ORDERED: methylPREDNISolone SOD SUCCI 125 MG/2 ML VIAL IV STA (08:00)
--- NOTE | 2021-12-17 08:04 | ED ---
General Adult HPI - General Stated complaint: SOB Time Seen by Provider: 12/17/21 07:55 Source: patient, EMS, RN notes reviewed Mode of arrival: EMS Limitations: no limitations - History of Present Illness Initial comments: Patient is a pleasant 81-year-old male presenting to the emergency department with difficulty breathing. Symptoms have progressed over the past day. Patient does have cough with white sputum. Patient has been to the hospital twice over the past month with similar symptoms. Patient does have history of COPD with similar symptoms. Patient also has history of CHF. No chest pain. No fevers. No leg pain or leg swelling. - Related Data Home Medications Medication Instructions Recorded Confirmed LORazepam [Ativan] 1 mg PO TID PRN 11/21/17 12/04/21 Tamsulosin [Flomax] 0.4 mg PO DAILY 11/21/17 12/04/21 Furosemide [Lasix] 40 mg PO Q48H 06/30/19 12/04/21 Atorvastatin [Lipitor] 10 mg PO HS 07/20/21 12/04/21 Fluticasone Propion/Salmeterol 1 puff IN RT-BID 07/20/21 12/04/21 [Advair 100-50 Diskus] Levalbuterol Hfa Inhaler [Xopenex 2 puff INHALATION RT-Q4H PRN MDD 07/20/21 12/04/21 Hfa Inhaler] 4X DAILY Warfarin Sodium [Jantoven] 2 mg PO DIRECTED 07/20/21 12/04/21 Warfarin Sodium [Jantoven] 4 mg PO DIRECTED 07/20/21 12/04/21 predniSONE 5 mg PO DAILY 07/20/21 12/04/21 Ascorbic Acid [Vitamin C] 1,000 mg PO DAILY 11/28/21 12/04/21 Cyanocobalamin (Vitamin B-12) 1,000 mcg PO DAILY 11/28/21 12/04/21 [Vitamin B-12] Furosemide [Lasix] 20 mg PO Q48H 11/28/21 12/04/21 LORazepam [Ativan] 0.5 mg PO HS 11/28/21 12/04/21 Tiotropium 2.5 Mcg/Puff [Spiriva 2 puff INHALATION RT-DAILY 11/28/21 12/04/21 Respimat 2.5 Mcg] Previous Rx's Medication Instructions Recorded Bisoprolol Fumarate 5 mg PO DAILY 12 Days #12 tablet 10/07/18 Amoxic-Pot Clav 875-125Mg 1 each PO Q12HR #10 tab 12/09/21 [Augmentin 875-125] Allergies Allergy/AdvReac Type Severity Reaction Status Date / Time albuterol Allergy Rapid Verified 12/04/21 17:37 Heart Rate empagliflozin Allergy Dyspnea Verified 12/04/21 17:37 [From Jardiance] pain med (can't remember Allergy Hallucinati Uncoded 12/04/21 17:37 name) ons Patches on chest Allergy Swelling Uncoded 12/04/21 17:37 Review of Systems ROS Statement: Those systems with pertinent positive or pertinent negative responses have been documented in the HPI. ROS Other: All systems not noted in ROS Statement are negative. Constitutional: Denies: fever Eyes: Denies: eye pain ENT: Denies: ear pain Respiratory: Reports: as per HPI, cough, dyspnea Cardiovascular: Denies: chest pain Endocrine: Denies: fatigue Gastrointestinal: Denies: abdominal pain Genitourinary: Denies: dysuria Musculoskeletal: Denies: back pain Skin: Denies: rash Neurological: Denies: weakness Past Medical History Past Medical History: Atrial Fibrillation, Heart Failure, COPD, GI Bleed, Hyperlipidemia, Pneumonia, Prostate Disorder, Renal Disease, Skin Disorder, Vascular Disorder Additional Past Medical History / Comment(s): GI bleed, gastritis, gastric ectasia, CKD stage III, past abdominal aortic aneurysm/had stent placed, varicosities, PVD, past shingellis and occasionally will have R flank nerve pain, BPH. History of Any Multi-Drug Resistant Organisms: None Reported Past Surgical History: Cardiac Valve Replacement, Cholecystectomy, Heart Catheterization Additional Past Surgical History / Comment(s): Stent placed for lower abd aortic aneurysym, mitral valve replacement/bicuspid repair, EGD with ablation, colonoscopy, excision L cheek lesion/mass and lesion from scalp/all benign, Past Anesthesia/Blood Transfusion Reactions: No Reported Reaction Date of Last Stent Placement:: 2015 Past Psychological History: Anxiety Smoking Status: Former smoker Past Alcohol Use History: Daily Past Drug Use History: None Reported - Past Family History Mother Family Medical History: Myocardial Infarction ([place]) Additional Family Medical History / Comment(s): at a young age. Father Family Medical History: Hypertension General Exam Limitations: no limitations General appearance: alert, in no apparent distress Head exam: Present: normocephalic Eye exam: Present: normal appearance Respiratory exam: Present: respiratory distress, wheezes, rales (With cough), other (Pursed lip breathing) Cardiovascular Exam: Present: tachycardia GI/Abdominal exam: Present: soft. Absent: tenderness Extremities exam: Present: normal inspection. Absent: pedal edema, calf tenderness Neurological exam: Present: alert Psychiatric exam: Present: normal affect, normal mood Skin exam: Present: normal color Course Vital Signs 12/17/21 12/17/21 12/17/21 07:56 08:07 08:44 Temperature 98.7 F Pulse Rate 106 H 104 H 96 Respiratory 22 30 H Rate Blood Pressure 133/83 119/75 O2 Sat by Pulse 91 L 100 94 L Oximetry 12/17/21 12/17/21 12/17/21 08:53 09:03 10:00 Temperature Pulse Rate 90 88 90 Respiratory 26 H Rate Blood Pressure 108/63 O2 Sat by Pulse 93 L Oximetry EKG Findings - EKG Comments: EKG Findings:: Size tachycardia 103. WA 157. QRS 126. QT 338. QTC 397. Left axis. Moderate intraventricular conduction delay. T-wave inversion in V6 similar to previous. Reviewed previous EKG Medical Decision Making - Medical Decision Making Patient reevaluated and updated. Case discussed with Dr. Rodriguez who is familiar with this patient and did come evaluate. He will admit. - Lab Data Result diagrams: 12/17/21 08:04 12/17/21 08:04 Lab Results 12/17/21 12/17/21 12/17/21 Range/Units 08:04 08:04 08:04 WBC 8.2 (3.8-10.6) k/uL RBC 4.02 L (4.30-5.90) m/uL Hgb 12.6 L (13.0-17.5) gm/dL Hct 39.0 (39.0-53.0) % MCV 97.1 (80.0-100.0) fL MCH 31.4 (25.0-35.0) pg MCHC 32.4 (31.0-37.0) g/dL RDW 13.8 (11.5-15.5) % Plt Count 95 L (150-450) k/uL MPV 9.6 Neutrophils % 88 % Lymphocytes % 6 % Monocytes % 3 % Eosinophils % 2 % Basophils % 0 % Neutrophils # 7.2 (1.3-7.7) k/uL Lymphocytes # 0.5 L (1.0-4.8) k/uL Monocytes # 0.2 (0-1.0) k/uL Eosinophils # 0.2 (0-0.7) k/uL Basophils # 0.0 (0-0.2) k/uL Hypochromasia Slight PT 46.0 H (9.0-12.0) sec INR 4.6 H (<1.2) APTT 41.9 H (22.0-30.0) sec Sodium 136 L (137-145) mmol/L Potassium 4.3 (3.5-5.1) mmol/L Chloride 98 (98-107) mmol/L Carbon Dioxide 32 H (22-30) mmol/L Anion Gap 6 mmol/L BUN 29 H (9-20) mg/dL Creatinine 1.08 (0.66-1.25) mg/dL Est GFR (CKD-EPI)AfAm 75 (>60 ml/min/1.73 sqM) Est GFR (CKD-EPI)NonAf 64 (>60 ml/min/1.73 sqM) Glucose 121 H (74-99) mg/dL Plasma Lactic Acid Jonas (0.7-2.0) mmol/L Calcium 8.2 L (8.4-10.2) mg/dL Total Bilirubin 0.9 (0.2-1.3) mg/dL AST 28 (17-59) U/L ALT 29 (4-49) U/L Alkaline Phosphatase 82 (38-126) U/L Troponin I (0.000-0.034) ng/mL NT-Pro-B Natriuret Pep pg/mL Total Protein 5.3 L (6.3-8.2) g/dL Albumin 2.9 L (3.5-5.0) g/dL Coronavirus (PCR) (Not Detectd) Influenza Type A RNA (Not Detectd) Influenza Type B (PCR) (Not Detectd) 12/17/21 12/17/21 12/17/21 Range/Units 08:04 08:04 08:04 WBC (3.8-10.6) k/uL RBC (4.30-5.90) m/uL Hgb (13.0-17.5) gm/dL Hct (39.0-53.0) % MCV (80.0-100.0) fL MCH (25.0-35.0) pg MCHC (31.0-37.0) g/dL RDW (11.5-15.5) % Plt Count (150-450) k/uL MPV Neutrophils % % Lymphocytes % % Monocytes % % Eosinophils % % Basophils % % Neutrophils # (1.3-7.7) k/uL Lymphocytes # (1.0-4.8) k/uL Monocytes # (0-1.0) k/uL Eosinophils # (0-0.7) k/uL Basophils # (0-0.2) k/uL Hypochromasia PT (9.0-12.0) sec INR (<1.2) APTT (22.0-30.0) sec Sodium (137-145) mmol/L Potassium (3.5-5.1) mmol/L Chloride (98-107) mmol/L Carbon Dioxide (22-30) mmol/L Anion Gap mmol/L BUN (9-20) mg/dL Creatinine (0.66-1.25) mg/dL Est GFR (CKD-EPI)AfAm (>60 ml/min/1.73 sqM) Est GFR (CKD-EPI)NonAf (>60 ml/min/1.73 sqM) Glucose (74-99) mg/dL Plasma Lactic Acid Jonas 1.2 (0.7-2.0) mmol/L Calcium (8.4-10.2) mg/dL Total Bilirubin (0.2-1.3) mg/dL AST (17-59) U/L ALT (4-49) U/L Alkaline Phosphatase (38-126) U/L Troponin I 0.063 H* (0.000-0.034) ng/mL NT-Pro-B Natriuret Pep 7510 pg/mL Total Protein (6.3-8.2) g/dL Albumin (3.5-5.0) g/dL Coronavirus (PCR) (Not Detectd) Influenza Type A RNA (Not Detectd) Influenza Type B (PCR) (Not Detectd) 12/17/21 12/17/21 Range/Units 08:04 08:04 WBC (3.8-10.6) k/uL RBC (4.30-5.90) m/uL Hgb (13.0-17.5) gm/dL Hct (39.0-53.0) % MCV (80.0-100.0) fL MCH (25.0-35.0) pg MCHC (31.0-37.0) g/dL RDW (11.5-15.5) % Plt Count (150-450) k/uL MPV Neutrophils % % Lymphocytes % % Monocytes % % Eosinophils % % Basophils % % Neutrophils # (1.3-7.7) k/uL Lymphocytes # (1.0-4.8) k/uL Monocytes # (0-1.0) k/uL Eosinophils # (0-0.7) k/uL Basophils # (0-0.2) k/uL Hypochromasia PT (9.0-12.0) sec INR (<1.2) APTT (22.0-30.0) sec Sodium (137-145) mmol/L Potassium (3.5-5.1) mmol/L Chloride (98-107) mmol/L Carbon Dioxide (22-30) mmol/L Anion Gap mmol/L BUN (9-20) mg/dL Creatinine (0.66-1.25) mg/dL Est GFR (CKD-EPI)AfAm (>60 ml/min/1.73 sqM) Est GFR (CKD-EPI)NonAf (>60 ml/min/1.73 sqM) Glucose (74-99) mg/dL Plasma Lactic Acid Jonas (0.7-2.0) mmol/L Calcium (8.4-10.2) mg/dL Total Bilirubin (0.2-1.3) mg/dL AST (17-59) U/L ALT (4-49) U/L Alkaline Phosphatase (38-126) U/L Troponin I (0.000-0.034) ng/mL NT-Pro-B Natriuret Pep pg/mL Total Protein (6.3-8.2) g/dL Albumin (3.5-5.0) g/dL Coronavirus (PCR) Not Detected (Not Detectd) Influenza Type A RNA Not Detected (Not Detectd) Influenza Type B (PCR) Not Detected (Not Detectd) - Radiology Data Radiology results: image reviewed (COPD. Interstitial changes. Cannot rule out volume overload or pneumonia. Previous reviewed.) Disposition Clinical Impression: COPD exacerbation Disposition: ADMITTED IP TO THIS HOSP Is patient prescribed a controlled substance at d/c from ED?: No Referrals: Tan Bey Jr, [Primary Care Provider] - 1-2 days Time of Disposition: 11:30
[2021-12-17 08:35] LABS: Basophils % (A) 0 %; Eosinophils # (A) 0.2 k/uL (0-0.7); Eosinophils % (A) 2 %; HGB 12.6 gm/dL (13.0-17.5); Hypochromasia Slight; Lymphocytes # (A) 0.5 k/uL (1.0-4.8); Lymphocytes % (A) 6 %; MCH 31.4 pg (25.0-35.0); MCHC 32.4 g/dL (31.0-37.0); MCV 97.1 fL (80.0-100.0); Mean Platelet Volume 9.6; Monocytes # (A) 0.2 k/uL (0-1.0); Monocytes % (A) 3 %; Neutrophils # (A) 7.2 k/uL (1.3-7.7); Neutrophils % (A) 88 %; RBC 4.02 m/uL (4.30-5.90); RDW 13.8 % (11.5-15.5); WBC 8.2 k/uL (3.8-10.6)
--- NOTE | 2021-12-17 08:48 | XR ---
EXAMINATION TYPE: XR chest 2V DATE OF EXAM: 12/17/2021 COMPARISON: Chest x-ray 12/04/[address] chest 07/20/2021 HISTORY: Difficulty breathing TECHNIQUE: Frontal and lateral views of the chest are obtained. FINDINGS: Cardiac valve replacement changes are noted post tricuspid and mitral valve replacements. Prominent lung volumes suggest underlying COPD. Interstitium is increased, patient is post median emma rnotomy. Apical bullous disease suspected especially in the right. No evident pneumothorax. Patient i s rotated. No sizable pleural effusion evident. Aorta is dense. IMPRESSION: Difficult to exclude interstitial edema, correlate for volume overload, pneumonia not ex cluded. Emphysema.
[2021-12-17 08:58] LABS: INR 4.6 (<1.2); Partial Thromboplastin Time 41.9 sec (22.0-30.0)
[2021-12-17 09:07] LABS: Albumin 2.9 g/dL (3.5-5.0); Calcium 8.2 mg/dL (8.4-10.2); Potassium 4.3 mmol/L (3.5-5.1); Total Bilirubin 0.9 mg/dL (0.2-1.3); Total Protein 5.3 g/dL (6.3-8.2)
[2021-12-17 09:10] LABS: Platelet Count 95 k/uL (150-450)
[2021-12-17] MEDS ORDERED: ACETAMINOPHEN TAB 325 MG TAB PO PRN (11:30)
[2021-12-17] MEDS ORDERED: IPRATROPIUM-ALBUTEROL 3 ML NEB INHALATION PRN (11:30)
[2021-12-17] MEDS ORDERED: NALOXONE 0.4 MG/ML 1 ML VIAL IVP PRN (11:30)
[2021-12-17] MEDS ORDERED: AZITHROMYCIN 500 MG TAB PO SCH (11:45)
[2021-12-17] MEDS ORDERED: FUROSEMIDE 20 MG TAB PO SCH ×2 (12:00)
[2021-12-17] MEDS ORDERED: WARFARIN 1 MG TAB PO SCH ×2 (12:00)
[2021-12-17] MEDS: methylPREDNISolone SOD SUCCI 125 MG/2 ML VIAL IV SCH ×2 (12:32→17:11)
[2021-12-17] MEDS: TAMSULOSIN 0.4 MG CAP.ER.24H PO SCH (12:32)
[2021-12-17] MEDS: CYANOCOBALAMIN 500 MCG TAB PO SCH (12:32)
[2021-12-17] MEDS: BISOPROLOL 5 MG TAB PO SCH (12:33)
--- NOTE | 2021-12-17 13:07 | P.CNPUL ---
History of Present Illness Consult date: 12/17/21 Reason for consult: dyspnea History of present illness: This is a pleasant 81-year-old male patient with a known history of chronic obstructive pulmonary disease with previous [place] valve placement at [facility] 2-3 years ago, he has been maintained on Wixella, Spiriva, Xopenex in the outpatient setting. He also has a history of secondary pulmonary hypertension and follows at the [facility] pulmonary hypertension clinic. He has chronic hypoxemic respiratory failure maintained on home oxygen at 2 L/m per nasal cannula, paroxysmal atrial fibrillation anticoagulated with warfarin, hypertension, hyperlipidemia. He was just recently discharged home after having an episode of acute exacerbation of mild systolic congestive heart failure. He does have evidence of pulmonary fibrosis and COPD. Echocardiogram revealed impaired left ventricular systolic function with ejection fraction 25- 30%. During the last hospitalization, the patient was also found to have E. coli in his sputum and based on that, the patient was discharged home on oral Augmentin. He was discharged home on 12/09/2021. He was readmitted yesterday because of worsening shortness of breath. He was seen in the ED. He was having cough and white sputum. He was having difficulty breathing. His temperature was normal. Normal hemodynamics. The patient had a white cell count of 8.2 with hemoglobin 12.6 and a platelet count of 96, sodium was 136, BUN is 29 with a creatinine of 1, normal LFTs, troponin of 0.06, proBNP level of 7510, covid19 was negative, influenza was negative. The chest x-ray is consistent with COPD/CHF Review of Systems CONSTITUTIONAL: Denies any recent significant weight loss or weight gain. EYES: Denies change in vision. EARS, NOSE, MOUTH, THROAT: Denies headaches, denies sore throat. CARDIOVASCULAR: Denies chest pain, palpitations or syncopal episodes. RESPIRATORY: Positive for shortness of breath, cough, congestion no hemoptysis. GASTROINTESTINAL: Denies change in appetite, denies abdominal pain GENITOURINARY: Denies hematuria, denies infections. MUSKULOSKELETAL: Denies pain, denies swelling. INTEGUMENTARY: Denies rash, denies eczema. NEUROLOGICAL: Denies recent memory loss, no recent seizure activity. PSYCHIATRIC: Denies anxiety, denies depression. HEMATOLOGIC/LYMPHATIC: Denies anemia, denies enlarged lymph nodes. Past Medical History Past Medical History: Atrial Fibrillation, Heart Failure, COPD, GI Bleed, Hyperlipidemia, Pneumonia, Prostate Disorder, Renal Disease, Skin Disorder, Vascular Disorder Additional Past Medical History / Comment(s): GI bleed, gastritis, gastric ectasia, CKD stage III, past abdominal aortic aneurysm/had stent placed, varicosities, PVD, past shingellis and occasionally will have R flank nerve pain, BPH. History of Any Multi-Drug Resistant Organisms: None Reported Past Surgical History: Cardiac Valve Replacement, Cholecystectomy, Heart Catheterization Additional Past Surgical History / Comment(s): Stent placed for lower abd aortic aneurysym, mitral valve replacement/bicuspid repair, EGD with ablation, colonoscopy, excision L cheek lesion/mass and lesion from scalp/all benign, Past Anesthesia/Blood Transfusion Reactions: No Reported Reaction Date of Last Stent Placement:: 2015 Past Psychological History: Anxiety Smoking Status: Former smoker Past Alcohol Use History: Daily Past Drug Use History: None Reported - Past Family History Mother Family Medical History: Myocardial Infarction ([place]) Additional Family Medical History / Comment(s): at a young age. Father Family Medical History: Hypertension Medications and Allergies Home Medications Medication Instructions Recorded Confirmed Type LORazepam [Ativan] 1 mg PO TID PRN 11/21/17 12/04/21 History Tamsulosin [Flomax] 0.4 mg PO DAILY 11/21/17 12/04/21 History Bisoprolol Fumarate 5 mg PO DAILY 12 Days #12 tablet 10/07/18 12/04/21 Rx Furosemide [Lasix] 40 mg PO Q48H 06/30/19 12/04/21 History Atorvastatin [Lipitor] 10 mg PO HS 07/20/21 12/04/21 History Fluticasone Propion/Salmeterol 1 puff IN RT-BID 07/20/21 12/04/21 History [Advair 100-50 Diskus] Levalbuterol Hfa Inhaler [Xopenex 2 puff INHALATION RT-Q4H PRN MDD 07/20/21 12/04/21 History Hfa Inhaler] 4X DAILY Warfarin Sodium [Jantoven] 2 mg PO DIRECTED 07/20/21 12/04/21 History Warfarin Sodium [Jantoven] 4 mg PO DIRECTED 07/20/21 12/04/21 History predniSONE 5 mg PO DAILY 07/20/21 12/04/21 History Ascorbic Acid [Vitamin C] 1,000 mg PO DAILY 11/28/21 12/04/21 History Cyanocobalamin (Vitamin B-12) 1,000 mcg PO DAILY 11/28/21 12/04/21 History [Vitamin B-12] Furosemide [Lasix] 20 mg PO Q48H 11/28/21 12/04/21 History LORazepam [Ativan] 0.5 mg PO HS 11/28/21 12/04/21 History Tiotropium 2.5 Mcg/Puff [Spiriva 2 puff INHALATION RT-DAILY 11/28/21 12/04/21 History Respimat 2.5 Mcg] Amoxic-Pot Clav 875-125Mg 1 each PO Q12HR #10 tab 12/09/21 Rx [Augmentin 875-125] Allergies Allergy/AdvReac Type Severity Reaction Status Date / Time albuterol Allergy Rapid Verified 12/04/21 17:37 Heart Rate empagliflozin Allergy Dyspnea Verified 12/04/21 17:37 [From Jardiance] pain med (can't remember Allergy Hallucinati Uncoded 12/04/21 17:37 name) ons Patches on chest Allergy Swelling Uncoded 12/04/21 17:37 Physical Exam Vitals: Vital Signs Temp Pulse Resp BP Pulse Ox 12/17/21 12:00 93 24 105/63 95 12/17/21 10:00 90 26 H 108/63 93 L 12/17/21 09:03 88 12/17/21 08:53 90 12/17/21 08:44 96 30 H 119/75 94 L 12/17/21 08:07 104 H 100 12/17/21 07:56 98.7 F 106 H 22 133/83 91 L Intake and Output 12/16/21 12/17/21 12/17/21 22:59 06:59 14:59 Other: Weight 63.049 kg GENERAL EXAM: Alert, active, very pleasant 81-year-old male patient, on 4 L, comfortable in no apparent distress. HEAD: Normocephalic. EYES: Normal reaction of pupils, equal size. NOSE: Clear with pink turbinates. THROAT: No erythema or exudates. NECK: No masses, no JVD. CHEST: No chest wall deformity. LUNGS: Equal air entry with few scattered rhonchi, diminished. CVS: S1 and S2 normal with no audible murmur, regular rhythm. ABDOMEN: No hepatosplenomegaly, normal bowel sounds, no guarding or rigidity. SPINE: No scoliosis or deformity SKIN: No rashes CENTRAL NERVOUS SYSTEM: No focal deficits, tone is normal in all 4 extremities. EXTREMITIES: There is no peripheral edema. No clubbing, no cyanosis. Peripheral pulses are intact. Results - Laboratory Findings CBC and BMP: 12/17/21 08:04 12/17/21 08:04 PT/INR, D-dimer PT 46.0 sec (9.0-12.0) H 12/17/21 08:04 INR 4.6 (<1.2) H 12/17/21 08:04 Abnormal lab findings: Abnormal Labs 12/17/21 12/17/21 12/17/21 08:04 08:04 08:04 RBC 4.02 L Hgb 12.6 L Plt Count 95 L Lymphocytes # 0.5 L PT 46.0 H INR 4.6 H APTT 41.9 H Sodium 136 L Carbon Dioxide 32 H BUN 29 H Glucose 121 H Calcium 8.2 L Troponin I Total Protein 5.3 L Albumin 2.9 L 12/17/21 08:04 RBC Hgb Plt Count Lymphocytes # PT INR APTT Sodium Carbon Dioxide BUN Glucose Calcium Troponin I 0.063 H* Total Protein Albumin - Diagnostic Findings Chest x-ray: image reviewed Assessment and Plan Plan: Acute on chronic hypoxemic respiratory failure secondary to an acute exacerbation of chronic systolic congestive heart failure with an ejection fra ction 25-30 % Sputum culture positive for E. coli on 12/05/2021, currently on Augmentin Moderate to severe pulmonary hypertension with an RVSP of 48 mmHg, follows at the [facility] pulmonary hypertension clinic History of [place] valve replacement for severe COPD at [facility] 2-3 years ago History of chronic hypoxemic respiratory failure on home oxygen at 2 L/m nasal cannula. Paroxysmal atrial fibrillation anticoagulated with warfarin, INR of 4.6 History of bioprosthetic mitral valve History of tricuspid valve repair Hypertension Hyperlipidemia Plan: start IV Rocephin as the patient is having purulent sputum, likely recurrence of E coli in the sputum Sputum cultures Duoneb nebs treatments 4 times a day IV Solu-Medrol 60 mg every 6 hours Lasix 40 mg IV every 24 hours Resume all medications Continue anticoagulation with warfarin, monitor INR and restart the medication once the INR drops Medications and labs reviewed Most recent echocardiogram shows an EF around 25% no major gradient across the mitral valve will follow
[2021-12-17] MEDS: IPRATROPIUM-ALBUTEROL 3 ML NEB INHALATION SCH ×3 (14:32→19:51)
[2021-12-17] MEDS ORDERED: WARFARIN 0.5 MG TAB PO ONE (18:00)
[2021-12-17] MEDS: SYMBICORT 80-4.5 MCG INHALER INHALATION SCH (19:56)
[2021-12-17] MEDS ORDERED: NON FORMULARY DRUG (Levalbuterol Hfa Inhaler 200 PUFF/9 GM Gm) INHALATION PRN (20:01)
[2021-12-17] MEDS: LORazepam 0.5 MG TAB PO SCH (20:09)
[2021-12-17] MEDS: ATORVASTATIN 10 MG TAB PO SCH (20:09)
[2021-12-18] MEDS: methylPREDNISolone SOD SUCCI 125 MG/2 ML VIAL IV SCH ×5 (00:45→22:47)
[2021-12-18] MEDS: SYMBICORT 80-4.5 MCG INHALER INHALATION SCH ×2 (07:24→19:54)
[2021-12-18] MEDS: BISOPROLOL 5 MG TAB PO SCH (07:25)
[2021-12-18] MEDS: TAMSULOSIN 0.4 MG CAP.ER.24H PO SCH (07:25)
[2021-12-18] MEDS: CYANOCOBALAMIN 500 MCG TAB PO SCH (07:25)
[2021-12-18] MEDS: ASCORBIC ACID 500 MG TAB PO SCH (07:25)
[2021-12-18] MEDS ORDERED: NON FORMULARY DRUG (Tiotropium 2.5 Mcg/Puff 10 PUFF Each) INHALATION SCH (08:00)
[2021-12-18] MEDS ORDERED: FUROSEMIDE 10 MG/ML 4 ML VIAL IV SCH (09:00)
[2021-12-18 09:48] LABS: Prothrombin Time 52.3 sec (9.9-11.9)
--- NOTE | 2021-12-18 10:14 | P.HPIM ---
History of Present Illness H&P Date: 12/17/21 Chief Complaint: sob This is a 81-year-old male with history of COPD, chronic hypoxic respiratory failure on 2 L nasal cannula at home, hyperlipidemia,vascular disorder, abdomi nal aortic aneurysm with stent placement, shingllili, A. fib, mitral valve replacement-prosthetic on Coumadin, anxiety, former nicotine dependence, daily wine intake, recently discharged on 12/09/2021 HE presented to the ER with dyspnea. Denies any chest pain, palpitations, lightheadedness, dizziness or focal deficits. Patient was seen in the ER. Review of Systems All systems: negative Past Medical History Past Medical History: Atrial Fibrillation, Heart Failure, COPD, GI Bleed, Hyperlipidemia, Pneumonia, Prostate Disorder, Renal Disease, Skin Disorder, Vascular Disorder Additional Past Medical History / Comment(s): GI bleed, gastritis, gastric ectasia, CKD stage III, past abdominal aortic aneurysm/had stent placed, varicosities, PVD, past shingellis and occasionally will have R flank nerve pain, BPH. History of Any Multi-Drug Resistant Organisms: None Reported Past Surgical History: Cardiac Valve Replacement, Cholecystectomy, Heart Catheterization Additional Past Surgical History / Comment(s): Stent placed for lower abd aortic aneurysym, mitral valve replacement/bicuspid repair, EGD with ablation, c olonoscopy, excision L cheek lesion/mass and lesion from scalp/all benign, Past Anesthesia/Blood Transfusion Reactions: No Reported Reaction Date of Last Stent Placement:: 2015 Past Psychological History: Anxiety Additional Psychological History / Comment(s): Pt resides alone. He has home oxygen. He drives. Smoking Status: Former smoker Past Alcohol Use History: Daily Additional Past Alcohol Use History / Comment(s): Pt started smoking in 4 and quit in 1986, Pt drinks 1 glass of wine a day. Past Drug Use History: None Reported - Past Family History Mother Family Medical History: Myocardial Infarction ([place]) Additional Family Medical History / Comment(s): at a young age. Father Family Medical History: Hypertension Medications and Allergies Home Medications Medication Instructions Recorded Confirmed Type LORazepam [Ativan] 1 mg PO TID PRN 11/21/17 12/17/21 History Tamsulosin [Flomax] 0.4 mg PO BID 11/21/17 12/17/21 History Bisoprolol Fumarate 5 mg PO DAILY 12 Days #12 tablet 10/07/18 12/17/21 Rx Atorvastatin [Lipitor] 10 mg PO HS 07/20/21 12/17/21 History Fluticasone Propion/Salmeterol 1 puff IN RT-BID 07/20/21 12/17/21 History [Advair 100-50 Diskus] Levalbuterol Hfa Inhaler [Xopenex 2 puff INHALATION RT-Q4H PRN MDD 07/20/21 12/17/21 History Hfa Inhaler] 4X DAILY Warfarin Sodium [Jantoven] 2 mg PO HS 07/20/21 12/17/21 History predniSONE 5 mg PO DAILY 07/20/21 12/17/21 History Ascorbic Acid [Vitamin C] 1,000 mg PO DAILY 11/28/21 12/17/21 History Cyanocobalamin (Vitamin B-12) 1,000 mcg PO DAILY 11/28/21 12/17/21 History [Vitamin B-12] Furosemide [Lasix] 40 mg PO DAILY 11/28/21 12/17/21 History LORazepam [Ativan] 0.5 mg PO HS 11/28/21 12/17/21 History Tiotropium 2.5 Mcg/Puff [Spiriva 2 puff INHALATION RT-DAILY 11/28/21 12/17/21 History Respimat 2.5 Mcg] Valsartan 40 mg PO BID 12/17/21 12/17/21 History Allergies Allergy/AdvReac Type Severity Reaction Status Date / Time albuterol Allergy Rapid Verified 12/17/21 15:07 Heart Rate empagliflozin Allergy Dyspnea Verified 12/17/21 15:07 [From Jardiance] pain med (can't remember Allergy Hallucinati Uncoded 12/04/21 17:37 name) ons Patches on chest Allergy Swelling Uncoded 12/04/21 17:37 Physical Exam Vitals: Vital Signs Temp Pulse Pulse Resp BP BP Pulse Ox 12/18/21 07:27 95 12/18/21 04:25 97 F L 73 20 96/59 94 L 12/17/21 20:00 97.8 F 76 18 94/57 97 12/17/21 18:22 18 12/17/21 17:00 97.9 F 80 22 126/68 12/17/21 15:04 97.6 F 77 22 104/69 97 12/17/21 12:00 93 24 105/63 95 Intake and Output 12/17/21 12/18/21 12/18/21 22:59 06:59 14:59 Intake Total 240 Balance 240 Intake: Oral 240 Other: Voiding Method Toilet Weight 63.049 kg 63.2 kg GENERAL: Pleasant, Sitting up in bed, no acute distress in the ER HEENT: Conjunctivae normal. eyes normal. MMM. NECK: Supple, No JVD. No thyroid enlargement. No LNs CARDIOVASCULAR: S1, S2 regular. Systolic murmur RESPIRATION: Unlabored, Breath sounds diminished in the bases. Fine bibasilar crackles. ABDOMEN: Soft, nontender . No guarding. no masses palpable. No ascites, No hepatosplenomegaly.Bowel sounds heard. LEGS: 1+ bilateral lower extremity edema, positive DP pulses PSYCHIATRY: Alert and oriented X3, mood and affect normal. NERVOUS SYSTEM: Cranial N 2-12 grossly normal. Moves all 4 limbs. No focal deficits. Strength and sensation grossly intact. Skin: Warm and dry, no rash Results CBC & Chem 7: 12/17/21 08:04 12/17/21 08:04 Labs: Abnormal Lab Results - Last 24 Hours (Table) 12/18/21 Range/Units 06:01 PT 52.3 H (9.9-11.9) sec INR 5.00 H (0.90-1.11) Chest x-ray: report reviewed Thrombosis Risk Factor Assmnt - DVT/VTE Prophylaxis DVT/VTE Prophylaxis: Pharmacologic Prophylaxis ordered (continue Coumadin) - Choose All That Apply Each Factor Represents 1 point: Abnormal pulmonary function (COPD), Swollen legs (current) Each Risk Factor Represents 3 Points: Age 75 years or older Thrombosis Risk Factor Assessment Total Risk Factor Score: 5 Thrombosis Risk Factor Assessment Level: High Risk Assessment and Plan (1) Acute and chronic respiratory failure with hypoxia Current Visit: Yes Status: Acute Code(s): J96.21 - ACUTE AND CHRONIC RESPIRATORY FAILURE WITH HYPOXIA SNOMED Code(s): 84681380 (2) Paroxysmal atrial fibrillation Current Visit: Yes Status: Acute Code(s): I48.0 - PAROXYSMAL ATRIAL FIBRILLATION SNOMED Code(s): 777053423 (3) snf current use of anticoagulant therapy Current Visit: Yes Status: Acute Code(s): Z79.01 - RESIDENTIAL (CURRENT) USE OF ANTICOAGULANTS SNOMED Code(s): 968545577 (4) Pulmonary hypertension Current Visit: Yes Status: Acute Code(s): I27.20 - PULMONARY HYPERTENSION, U NSPECIFIED SNOMED Code(s): 02991189 (5) H/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 Current Visit: Yes Status: Acute Code(s): Z95.3 - PRESENCE OF XENOGENIC HEART VALVE SNOMED Code(s): 247997559 (6) Essential (primary) hypertension Current Visit: Yes Status: Acute Code(s): I10 - ESSENTIAL (PRIMARY) HYPERTENSION SNOMED Code(s): 55206709 (7) Mixed hyperlipidemia Current Visit: Yes Status: Acute Code(s): E78.2 - MIXED HYPERLIPIDEMIA SNOMED Code(s): 940051586 (8) COPD exacerbation Current Visit: Yes Status: Acute Code(s): J44.1 - CHRONIC OBSTRUCTIVE PULMONARY DISEASE W (ACUTE) EXACERBATION SNOMED Code(s): 255592726 (9) COPD (chronic obstructive pulmonary disease) Current Visit: No Status: Acute Code(s): J44.9 - CHRONIC OBSTRUCTIVE PULMONARY DISEASE, UNSPECIFIED SNOMED Code(s): 27323260 Plan: pt will be admited, started on IV steropids, consult pulmonology, PT/OT to eval for ECF, repeat labs in am, he will be reevaluated in the next 24 hours
--- NOTE | 2021-12-18 11:33 | P.PN ---
Subjective Progress Note Date: 12/18/21 This is a pleasant 81-year-old male patient with a known history of chronic obstructive pulmonary disease with previous [place] valve placement at [facility] 2-3 years ago, he has been maintained on [place]ix[place], Spiriva, Xopenex in the outpatient setting. He also has a history of secondary pulmonary hypertension and follows at the [facility] pulmonary hypertension clinic. He has chronic hypoxemic respiratory failure maintained on home oxygen at 2 L/m per nasal cannula, paroxysmal atrial fibrillation anticoagulated with warfarin, hypertension, hyperlipidemia. He was just recently discharged home after having an episode of acute exacerbation of mild systolic congestive heart failure. He does have evidence of pulmonary fibrosis and COPD. Echocardiogram revealed impaired left ventricular systolic function with ejection fraction 25- 30%. During the last hospitalization, the patient was also found to have E. coli in his sputum and based on that, the patient was discharged home on oral Augmentin. He was discharged home on 12/09/2021. He was readmitted yesterday because of worsening shortness of breath. He was seen in the ED. He was having cough and white sputum. He was having difficulty breathing. His temperature was normal. Normal hemodynamics. The patient had a white cell count of 8.2 with hemoglobin 12.6 and a platelet count of 96, sodium was 136, BUN is 29 with a creatinine of 1, normal LFTs, troponin of 0.06, proBNP level of 7510, covid19 was negative, influenza was negative. The chest x-ray is consistent with COPD/CHF. The patient is seen today 12/18/2021 in follow-up on the regular medical floor. He is currently sitting up in bed. Awake and alert in no acute distress. He is feeling better today compared to yesterday. He is maintaining O2 saturation in the 90s on 3 L/m per nasal cannula. Afebrile. Hemodynamically stable. Blood c ultures reveal no growth to date. Sputum culture pending. INR 5.0. He is continued on Symbicort, Xopenex, IV Solu-Medrol, IV diuretics. No accurate I&O. Antibiotics in the form of ceftriaxone. Anticoagulated with warfarin. Supra therapeutic. Objective - Vital Signs Vital signs: Vital Signs Temp 97 F L 12/18/21 04:25 Pulse 73 12/18/21 04:25 Resp 20 12/18/21 04:25 BP 96/59 12/18/21 04:25 Pulse Ox 95 12/18/21 07:27 FiO2 Intake & Output 12/17/21 12/18/21 12/18/21 18:59 06:59 18:59 Intake Total 240 Balance 240 Weight 63.049 kg 63.2 kg Intake: Oral 240 Other: Voiding Method Toilet Toilet - Exam GENERAL EXAM: Alert, very pleasant 81-year-old male patient, on 3 L, comfortable in no apparent distress. HEAD: Normocephalic. EYES: Normal reaction of pupils, equal size. NOSE: Clear with pink turbinates. THROAT: No erythema or exudates. NECK: No masses, no JVD. CHEST: No chest wall deformity. LUNGS: Equal air entry with few scattered rhonchi, diminished. CVS: S1 and S2 normal with no audible murmur, regular rhythm. ABDOMEN: No hepatosplenomegaly, normal bowel sounds, no guarding or rigidity. SPINE: No scoliosis or deformity SKIN: No rashes CENTRAL NERVOUS SYSTEM: No focal deficits, tone is normal in all 4 extremities. EXTREMITIES: There is no peripheral edema. No clubbing, no cyanosis. Peripheral pulses are intact. - Labs CBC & Chem 7: 12/17/21 08:04 12/17/21 08:04 Labs: Abnormal Lab Results - Last 24 Hours (Table) 12/18/21 Range/Units 06:01 PT 52.3 H (9.9-11.9) sec INR 5.00 H (0.90-1.11) Microbiology - Last 24 Hours (Table) 12/17/21 08:04 Blood Culture - Preliminary Blood No Growth after 24 hours 12/17/21 08:04 Blood Culture - Preliminary Blood No Growth after 24 hours 12/17/21 14:30 Sputum Culture - Preliminary Sputum Assessment and Plan Assessment: Acute on chronic hypoxemic respiratory failure secondary to an acute exacerbation of chronic systolic congestive heart failure with an ejection fraction 25-30 % Sputum culture positive for E. coli on 12/05/2021, follow sputum culture pending from 12/17/2021, currently on ceftriaxone Moderate to severe pulmonary hypertension with an RVSP of 48 mmHg, follows at t he [facility] pulmonary hypertension clinic History of Chat[place] valve replacement for severe COPD at [facility] 2-3 years ago History of chronic hypoxemic respiratory failure on home oxygen at 2 L/m nasal cannula. Paroxysmal atrial fibrillation anticoagulated with warfarin, INR of 5.0 History of bioprosthetic mitral valve History of tricuspid valve repair Hypertension Hyperlipidemia Frequent re admissions to the hospital for COPD/CHF Plan: The patient was seen and evaluated Labs and medications reviewed Continue bronchodilators, IV solu Medrol, IV diuretics Consult social media designer/bilingual patient support caseworker for frequent readmission May require subacute rehabilitation post discharge We will continue to follow and make further recommendations based on his clinical status I have personally seen and examined the patient, performed the documentation and the assessment and plan as written. Number of minutes spent on the visit: 10.
[2021-12-18] MEDS ORDERED: TAMSULOSIN 0.4 MG CAP.ER.24H PO STA (13:31)
[2021-12-18] MEDS: LORazepam 0.5 MG TAB PO PRN (13:53)
--- NOTE | 2021-12-18 14:41 | P.PN ---
Subjective Progress Note Date: 12/18/21 H&P Date: 12/17/21 Chief Complaint: sob This is a 81-year-old male with history of COPD, chronic hypoxic respiratory failure on 2 L nasal cannula at home, hyperlipidemia,vascular disorder, abdominal aortic aneurysm with stent placement, shingles, A. fib, mitral valve replacement-prosthetic on Coumadin, anxiety, former nicotine dependence, daily wine intake, recently discharged on 12/09/2021 HE presented to the ER with dyspnea. Denies any chest pain, palpitations, lightheadedness, dizziness or focal deficits. Patient was seen in the ER. 12/18/2021 just returning from bathroom with exertional shortness of breath, pursed lip breathing. Maintained on nebulized bronchodilators, IV steroids, IV diuretics, O2 sat of 90s on 3 L nasal cannula. Coumadin per pharmacy dosing, INR up to 5. Afebrile, normal WBC, sputum culture pending. Objective - Vital Signs Vital signs: Vital Signs Temp 97.7 F 12/18/21 11:21 Pulse 79 12/18/21 11:21 Resp 20 12/18/21 11:21 BP 121/70 12/18/21 11:21 Pulse Ox 96 12/18/21 11:21 FiO2 Intake & Output 12/17/21 12/18/21 12/18/21 18:59 06:59 18:59 Intake Total 240 240 Balance 240 240 Weight 63.049 kg 63.2 kg Intake: Oral 240 240 Other: Voiding Method Toilet Toilet - Exam GENERAL: Pleasant, Sitting up at bedside. HEENT: Conjunctivae normal. eyes normal. MMM. NECK: Supple, No JVD. No thyroid enlargement. No LNs CARDIOVASCULAR: S1, S2 regular. Systolic murmur. RESPIRATION: Labored, Breath sounds diminished in the bases. Scattered rhonchi. ABDOMEN: Soft, nontender . No guarding. no masses palpable. Positive Bowel sounds. LEGS: bilateral lower extremity edema, positive DP pulses PSYCHIATRY: Alert and oriented X3, mood and affect normal. NERVOUS SYSTEM: Cranial N 2-12 grossly normal.No focal deficits.Strength and sensation grossly intact. Skin: Warm and dry, no rash - Labs CBC & Chem 7: 12/17/21 08:04 12/17/21 08:04 Labs: Abnormal Lab Results - Last 24 Hours (Table) 12/18/21 Range/Units 06:01 PT 52.3 H (9.9-11.9) sec INR 5.00 H (0.90-1.11) Microbiology - Last 24 Hours (Table) 12/17/21 08:04 Blood Culture - Preliminary Blood No Growth after 24 hours 12/17/21 08:04 Blood Culture - Preliminary Blood No Growth after 24 hours 12/17/21 14:30 Sputum Culture - Preliminary Sputum Assessment and Plan Assessment: (1) Acute and chronic respiratory failure with hypoxia Current Visit: Yes Status: Acute Code(s): J96.21 - ACUTE AND CHRONIC RESPIRATORY FAILURE WITH HYPOXIA SNOMED Code(s): 17408204 (2) Paroxysmal atrial fibrillation Current Visit: Yes Status: Acute Code(s): I48.0 - PAROXYSMAL ATRIAL FIBRILLATION SNOMED Code(s): 218355886 (3) 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 Current Visit: Yes Status: Acute Code(s): Z79.01 - LONG-TERM (CURRENT) USE OF ANTICOAGULANTS SNOMED Code(s): 394629473 (4) Pulmonary hypertension Current Visit: Yes Status: Acute Code(s): I27.20 - PULMONARY HYPERTENSION, UNSPECIFIED SNOMED Code(s): 41039192 (5) H/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 Current Visit: Yes Status: Acute Code(s): Z95.3 - PRESENCE OF XENOGENIC HEART VALVE SNOMED Code(s): 404227913 (6) Essential (primary) hypertension Current Visit: Yes Status: Acute Code(s): I10 - ESSENTIAL (PRIMARY) HYPERTENSION SNOMED Code(s): 66766366 (7) Mixed hyperlipidemia Current Visit: Yes Status: Acute Code(s): E78.2 - MIXED HYPERLIPIDEMIA SNOMED Code(s): 353721921 (8) COPD exacerbation Current Visit: Yes Status: Acute Code(s): J44.1 - CHRONIC OBSTRUCTIVE PULMONARY DISEASE W (ACUTE) EXACERBATION SNOMED Code(s): 059962346 (9) COPD (chronic obstructive pulmonary disease) Current Visit: No Status: Acute Code(s): J44.9 - CHRONIC OBSTRUCTIVE PULMONARY DISEASE, UNSPECIFIED SNOMED Code(s): 53202683 Plan: Continue on current medication regime ,monitoring and symptomatic treatment. Patient agreeable to subacute rehab, PT/OT pending. Patient Requests no code, no CPR, no intubation. PRN Ativan ordered in addition to at bedtime dose. Flomax increased /Diuretics increased as per PCP with close monitoring of renal function, electrolytes -repeat labs ordered for a.m. Elevated INR, Coumadin dosing as per pharmacy. Diet adjusted, protein supplements ordered. Prognosis guarded given multiple complex medical issues. The impression and plan of care has been dictated as directed. : I performed a history and examination of this patient, discussed the same with the dictator. I agree with the dictator's note ,documented as a scribe. Any additional findings or plans will be noted.
[2021-12-18] MEDS: VALSARTAN 40 MG TAB PO SCH ×2 (14:42→20:53)
[2021-12-18] MEDS ORDERED: WARFARIN 0.5 MG TAB PO ONE (18:00)
[2021-12-18] MEDS: LORazepam 0.5 MG TAB PO SCH (20:14)
[2021-12-18] MEDS: ATORVASTATIN 10 MG TAB PO SCH (20:14)
[2021-12-18] MEDS: FUROSEMIDE 10 MG/ML 4 ML VIAL IV SCH (20:15)
[2021-12-19] MEDS: methylPREDNISolone SOD SUCCI 125 MG/2 ML VIAL IV SCH ×3 (05:30→17:52)
[2021-12-19] MEDS: SYMBICORT 80-4.5 MCG INHALER INHALATION SCH ×2 (08:20→19:25)
[2021-12-19 09:01] LABS: Basophils # (A) 0.01 X 10*3/uL (0.00-0.10); Basophils % (A) 0.1 %; Eosinophils # (A) 0 X 10*3/uL (0.04-0.35); Eosinophils % (A) 0 %; HGB 11.3 g/dL (13.0-17.0); Immature Grans, Automated 0.8 %; Lymphocytes # (A) 0.45 X 10*3/uL (0.90-5.00); Lymphocytes % (A) 3.7 %; MCHC 31.4 g/dL (32.0-37.0); MCV 98.9 fL (80.0-97.0); Mean Platelet Volume 10.9 fL (9.5-12.2); Monocytes # (A) 0.31 X 10*3/uL (0.20-1.00); Monocytes % (A) 2.5 %; NRBC Per 100 WBC 0 /100 WBCS (0.0-0.0); Neutrophils # (A) 11.35 X 10*3/uL (1.80-7.70); Neutrophils % (A) 92.9 %; Platelet Count 122 X 10*3/uL (140-440); RBC 3.64 X 10*6/uL (4.40-5.60); RDW 13.8 % (11.5-14.5); WBC 12.22 X 10*3/uL (4.50-10.00)
[2021-12-19 09:06] LABS: African American GFR (CKD) 61.4 (60.0-200.0); Anion Gap 8.1 mmol/L (10.00-18.00); BUN/Creat Ratio 38.43 Ratio (12.00-20.00); Blood Urea Nitrogen 48.8 mg/dL (9.0-27.0); Calcium 8.6 mg/dL (8.7-10.3); Carbon Dioxide 33.4 mmol/L (20.0-27.5); Potassium 4.8 mmol/L (3.5-5.5)
[2021-12-19 09:18] LABS: INR 4.96 (0.90-1.11); Prothrombin Time 51.9 sec (9.9-11.9)
[2021-12-19] MEDS: FUROSEMIDE 10 MG/ML 4 ML VIAL IV SCH (09:25)
[2021-12-19] MEDS: TAMSULOSIN 0.4 MG CAP.ER.24H PO SCH (09:26)
[2021-12-19] MEDS: ASCORBIC ACID 500 MG TAB PO SCH (09:26)
[2021-12-19] MEDS: CYANOCOBALAMIN 500 MCG TAB PO SCH (09:26)
[2021-12-19] MEDS: BISOPROLOL 5 MG TAB PO SCH (09:32)
[2021-12-19] MEDS: VALSARTAN 40 MG TAB PO SCH (09:32)
--- NOTE | 2021-12-19 10:32 | P.CRDCN ---
History of Present Illness History of present illness: This is a 81-year-old male with a past medical history significant for COPD with home oxygen use, tissue mitral valve replacement and tricuspid valve repair of [facility] in 2015, non-ischemic cardiomyopathy, paroxysmal atrial fibrillation on warfarin, hypertension, AAA, COPD, former tobacco use, pulmonary hypertension and hyperlipidemia. Patient follows in the office with Dr. Kramer. We have been asked to see the patient in consultation for congestive heart failure. Patient states he presented to the hospital with complaints of worsening shortness of breath. He was recently discharged from the hospital with CHF. He states he wanted to go to Rehab and get stronger, however, he states he was too independent. He endorses difficulty doing daily activities at home and then has become more short of breath. He denies any orthopnea or PND. He denies any worsening LE edema. He states he is compliant with his medications. He does adhere to low salt diet. He denies any chest discomfort, lightheadedness, dizziness, syncope or near syncope. He is able to lay flat in bed. He was started on IV Lasix, IV steroids and antibiotics. He states that he was on Jardiance but had increased side effects to this medication. DIAGNOSTICS: * EKG sinus tachycardia, heart rate 103, nonspecific STT wave abnormalities. Prior EKG was similar findings * Chest xray pulmonary edema present, slightly increased since last exam. * Laboratory data: WBC 12.2, hemoglobin 1.3, platelets 122, INR 4.9, sodium 144, potassium 4.8, BUN 48, serum creatinine 1.3, troponin 0.06, proBNP 7510 * Echocardiogram 11/29/2021 revealed EF of 25-30% severe left atrial dilatation, bioprosthetic mitral valve functioning normally, repair of tricuspid valve with moderate tricuspid regurgitation, moderate aortic regurgitation * Current home cardiac medications include Bisoprolol 5mg daily, Lipitor 10 mg at night, Lasix 40 mg daily, warfarin 2mg nightly. REVIEW OF SYSTEMS: At the time of my exam: CONSTITUTIONAL: Denies fever or chills. HEENT: Denies blurred vision, vision changes, or eye pain. Denies hemoptysis CARDIOVASCULAR: Denies chest pain. Denies orthopnea. Denies PND. Denies palpitations RESPIRATORY: +shortness of breath +cough GASTROINTESTINAL: Denies abdominal pain. Denies nausea or vomiting. HEMATOLOGIC: Denies bleeding disorders. GENITOURINARY: Denies any blood in urine. SKIN: Denies pruitis. Denies rash. PHYSICAL EXAM: VITAL SIGNS: Reviewed. GENERAL: Well-developed in no acute distress. HEENT: Head is normocephalic. Pupils are equal, round. Sclerae anicteric. Mucous membranes of the mouth are moist. Neck supple. No JVD LUNGS: Respirations even and unlabored. Lungs with decreased air exchanged bilateral bases, expiratory wheezing noted HEART: Regular rate and rhythm. S1 and S2 heard. Soft systolic murmur noted. ABDOMEN: Soft. Nondistended. Nontender. EXTREMITIES: Normal range of motion. No clubbing or cyanosis. Peripheral pulses intact. 1+ bilateral lower extremity edema NEUROLOGIC: Awake and alert. Oriented x 3. ASSESSMENT: Shortness of breath Acute on chronic heart failure with reduced ejection fraction COPD exacerbation with home oxygen use Paroxysmal atrial fibrillation on coumadin Abnormal troponins, likely secondary to congestive heart failure Non-ischemic cardiomyopathy History of mitral valve replacement in 2014 History of tricuspid valve repair in 2014 History of AAA Hyperlipidemia PLAN: Continue IV Lasix 40mg BID Monitor I/Os daily weights, renal function and electrolytes Coumadin on hold for supratherapeutic INR, monitor INR Continue statin, valsartan and bisoprolol Consider spironolactone as an outpatient Patient intolerant to Jardiance recently Further recommendations pending patient course Nurse practitioner note has been reviewed by physician. Signing provider agrees with the documented findings, assessment, and plan of care. Past Medical History Past Medical History: Atrial Fibrillation, Heart Failure, COPD, GI Bleed, Hyperlipidemia, Pneumonia, Prostate Disorder, Renal Disease, Skin Disorder, Vascular Disorder Additional Past Medical History / Comment(s): GI bleed, gastritis, gastric ectasia, CKD stage III, past abdominal aortic aneurysm/had stent placed, va ricosities, PVD, past shingellis and occasionally will have R flank nerve pain, BPH. History of Any Multi-Drug Resistant Organisms: None Reported Past Surgical History: Cardiac Valve Replacement, Cholecystectomy, Heart Catheterization Additional Past Surgical History / Comment(s): Stent placed for lower abd aortic aneurysym, mitral valve replacement/bicuspid repair, EGD with ablation, colonoscopy, excision L cheek lesion/mass and lesion from scalp/all benign, Past Anesthesia/Blood Transfusion Reactions: No Reported Reaction Date of Last Stent Placement:: 2015 Past Psychological History: Anxiety Additional Psychological History / Comment(s): Pt resides alone. He has home oxygen. He drives. Smoking Status: Former smoker Past Alcohol Use History: Daily Additional Past Alcohol Use History / Comment(s): Pt started smoking in 1952 and quit in 1986, Pt drinks 1 glass of wine a day. Past Drug Use History: None Reported - Past Family History Mother Family Medical History: Myocardial Infarction ([place]) Additional Family Medical History / Comment(s): at a young age. Father Family Medical History: Hypertension Medications and Allergies Home Medications Medication Instructions Recorded Confirmed Type LORazepam [Ativan] 1 mg PO TID PRN 11/21/17 12/17/21 History Tamsulosin [Flomax] 0.4 mg PO BID 11/21/17 12/17/21 History Bisoprolol Fumarate 5 mg PO DAILY 12 Days #12 tablet 10/07/18 12/17/21 Rx Atorvastatin [Lipitor] 10 mg PO HS 07/20/21 12/17/21 History Fluticasone Propion/Salmeterol 1 puff IN RT-BID 07/20/21 12/17/21 History [Advair 100-50 Diskus] Levalbuterol Hfa Inhaler [Xopenex 2 puff INHALATION RT-Q4H PRN MDD 07/20/21 History Hfa Inhaler] 4X DAILY Warfarin Sodium [Jantoven] 2 mg PO HS 07/20/21 12/17/21 History predniSONE 5 mg PO DAILY 07/20/21 12/17/21 History Ascorbic Acid [Vitamin C] 1,000 mg PO DAILY 11/28/21 12/17/21 History Cyanocobalamin (Vitamin B-12) 1,000 mcg PO DAILY 11/28/21 12/17/21 History [Vitamin B-12] Furosemide [Lasix] 40 mg PO DAILY 11/28/21 12/17/21 History LORazepam [Ativan] 0.5 mg PO HS 11/28/21 12/17/21 History Tiotropium 2.5 Mcg/Puff [Spiriva 2 puff INHALATION RT-DAILY 11/28/21 12/17/21 History Respimat 2.5 Mcg] Valsartan 40 mg PO BID 12/17/21 12/17/21 History Allergies Allergy/AdvReac Type Severity Reaction Status Date / Time albuterol Allergy Rapid Verified 12/17/21 15:07 Heart Rate empagliflozin Allergy Dyspnea Verified 12/17/21 15:07 [From Jardiance] pain med (can't remember Allergy Hallucinati Uncoded 12/04/21 17:37 name) ons Patches on chest Allergy Swelling Uncoded 12/04/21 17:37 Physical Exam Vitals: Vital Signs Temp Pulse Resp BP Pulse Ox 12/19/21 04:27 97.7 F 84 18 111/67 97 12/18/21 20:00 92 18 12/18/21 17:32 97.8 F 92 18 129/79 98 12/18/21 11:21 97.7 F 79 20 121/70 96 12/18/21 07:27 95 Intake and Output 12/18/21 12/19/21 12/19/21 22:59 06:59 14:59 Intake Total 346 Output Total 200 Balance 346 -200 Intake: Intake, IV Titration 50 Amount cefTRIAXone 1 gm In 50 Sodium Chloride 0.9% 50 ml @ 100 mls/hr IVPB Q12HR [facility] Rx#:[id number] Oral 296 Output: Urine 200 Other: Voiding Method Toilet Weight 62.2 kg Results 12/19/21 05:51 12/19/21 05:51 Coagulation 12/18/21 Range/Units 06:01 PT 52.3 H (9.9-11.9) sec Current Medications Generic Name Dose Route Start Last Admin Trade Name Freq PRN Reason Stop Dose Admin Acetaminophen 650 mg 12/17/21 11:30 Acetaminophen Tab 325 Mg Tab PO Q4HR PRN Mild Pain or Fever > 100.5 Ascorbic Acid 1,000 mg 12/18/21 09:00 12/18/21 07:25 Ascorbic Acid 500 Mg Tab PO 1,000 mg DAILY RAMONA Administration Atorvastatin Calcium 10 mg 12/17/21 21:00 12/18/21 20:14 Atorvastatin 10 Mg Tab PO 10 mg HS RAMONA Administration Bisoprolol Fumarate 5 mg 12/17/21 11:53 12/18/21 07:25 Bisoprolol 5 Mg Tab PO 5 mg DAILY RAMONA Administration Budesonide/Formoterol Fumarate 2 puff 12/17/21 20:00 12/18/21 19:54 Symbicort 80-4.5 Mcg Inhaler INHALATION 2 puff RT-BID RAMONA Administration Cyanocobalamin 1,000 mcg 12/17/21 12:00 12/18/21 07:25 Cyanocobalamin 500 Mcg Tab PO 1,000 mcg DAILY RAMONA Administration Furosemide 40 mg 12/18/21 20:00 12/18/21 20:15 Furosemide 10 Mg/Ml 4 Ml Vial IV 40 mg Q12H RAMONA Administration Ceftriaxone Sodium 1 gm/ 50 mls @ 100 mls/hr 12/17/21 13:15 12/18/21 20:14 Sodium Chloride IVPB 100 mls/hr Q12HR RAMONA Administration Protocol Lorazepam 0.5 mg 12/17/21 21:00 12/18/21 20:14 Lorazepam 0.5 Mg Tab PO 0.5 mg HS RAMONA Administration Lorazepam 0.5 mg 12/18/21 13:32 12/18/21 13:53 Lorazepam 0.5 Mg Tab PO 0.5 mg BID PRN Administration Anxiety Methylprednisolone Sodium Succinate 60 mg 12/17/21 12:00 12/19/21 05:30 Methylprednisolone Sod Succi 125 Mg/2 Ml Vial IV 60 mg Q6HR RAMONA Administration Miscellaneous Information 0 each 12/17/21 12:14 Warfarin Per Pharmacy MISCELLANE DIRECTED PRN PER PROTOCOL Naloxone HCl 0.2 mg 12/17/21 11:30 Naloxone 0.4 Mg/Ml 1 Ml Vial IVP Q2M PRN Opioid Reversal Non-Formulary Medication 2 puff 12/17/21 20:01 12/18/21 07:24 Levalbuterol Hfa Inhaler INHALATION 2 puff RT-Q4H PRN Administration Shortness Of Breath Tamsulosin HCl 0.8 mg 12/19/21 09:00 Tamsulosin 0.4 Mg Cap.Er.24h PO DAILY RAMONA Valsartan 40 mg 12/18/21 13:45 12/18/21 20:53 Valsartan 40 Mg Tab PO 40 mg BID RAMONA Administration Intake and Output 12/18/21 12/19/21 12/19/21 22:59 06:59 14:59 Intake Total 346 Output Total 200 Balance 346 -200 Intake: Intake, IV Titration 50 Amount cefTRIAXone 1 gm In 50 Sodium Chloride 0.9% 50 ml @ 100 mls/hr IVPB Q12HR [facility] Rx#:[id number] Oral 296 Output: Urine 200 Other: Voiding Method Toilet Weight 62.2 kg 12/17/21 08:04 12/17/21 08:04
[2021-12-19] MEDS: LORazepam 0.5 MG TAB PO PRN (11:14)
--- NOTE | 2021-12-19 12:05 | P.PN ---
Subjective Progress Note Date: 12/19/21 This is a pleasant 81-year-old male patient with a known history of chronic obstructive pulmonary disease with previous Jesup valve placement at [facility] 2-3 years ago, he has been maintained on Wixella, Spiriva, Xopenex in the outpatient setting. He also has a history of secondary pulmonary hypertension and follows at the [facility] pulmonary hypertension clinic. He has chronic hypoxemic respiratory failure maintained on home oxygen at 2 L/m per nasal cannula, paroxysmal atrial fibrillation anticoagulated with warfarin, hypertension, hyperlipidemia. He was just recently discharged home after having an episode of acute exacerbation of mild systolic congestive heart failure. He does have evidence of pulmonary fibrosis and COPD. Echocardiogram revealed impaired left ventricular systolic function with ejection fraction 25- 30%. During the last hospitalization, the patient was also found to have E. coli in his sputum and based on that, the patient was discharged home on oral Augmentin. He was discharged home on 12/09/2021. He was readmitted yesterday because of worsening shortness of breath. He was seen in the ED. He was having cough and white sputum. He was having difficulty breathing. His temperature was normal. Normal hemodynamics. The patient had a white cell count of 8.2 with hemoglobin 12.6 and a platelet count of 96, sodium was 136, BUN is 29 with a creatinine of 1, normal LFTs, troponin of 0.06, proBNP level of 7510, covid19 was negative, influenza was negative. The chest x-ray is consistent with COPD/CHF. The patient is seen today 12/18/2021 in follow-up on the regular medical floor. He is currently sitting up in bed. Awake and alert in no acute distress. He is feeling better today compared to yesterday. He is maintaining O2 saturation in the 90s on 3 L/m per nasal cannula. Afebrile. Hemodynamically stable. Blood c ultures reveal no growth to date. Sputum culture pending. INR 5.0. He is continued on Symbicort, Xopenex, IV Solu-Medrol, IV diuretics. No accurate I&O. Antibiotics in the form of ceftriaxone. Anticoagulated with warfarin. Supra therapeutic. The patient is seen today 12/19/2021 in follow-up on the regular medical floor. Sitting up in a chair at the bedside. Awake and alert in no acute distress. Maintaining O2 saturations in the 90s on 3 L/m per nasal cannula. Afebrile. Hemodynamically stable. Sputum culture is again revealing gram-negative bacilli. Blood cultures are revealing no growth. White count 12.2. Hemoglobin 11.3. INR 4.96. Sodium 144. Potassium 4.8. Bicarb 33. BUN of 49. Creatinine 1.3. He remains on bronchodilators, IV diuretics, IV Solu-Medrol, antibiotics in the form of ceftriaxone. Objective - Vital Signs Vital signs: Vital Signs Temp 97.8 F 12/19/21 11:23 Pulse 94 12/19/21 11:23 Resp 18 12/19/21 11:23 BP 106/54 12/19/21 11:23 Pulse Ox 94 L 12/19/21 11:23 FiO2 Intake & Output 12/18/21 12/19/21 12/19/21 18:59 06:59 18:59 Intake Total 586 Output Total 200 Balance 586 -200 Weight 63.2 kg 62.2 kg 62 kg Intake: Intake, IV Titration 50 Amount cefTRIAXone 1 gm In 50 Sodium Chloride 0.9% 50 ml @ 100 mls/hr IVPB Q12HR [facility] Rx#:[id number] Oral 536 Output: Urine 200 Other: Voiding Method Toilet Toilet - Exam GENERAL EXAM: Alert, 81-year-old male patient, on 3 L, comfortable in no apparent distress. HEAD: Normocephalic. EYES: Normal reaction of pupils, equal size. NOSE: Clear with pink turbinates. THROAT: No erythema or exudates. NECK: No masses, no JVD. CHEST: No chest wall deformity. LUNGS: Equal air entry with few scattered rhonchi, diminished. CVS: S1 and S2 normal with no audible murmur, regular rhythm. ABDOMEN: No hepatosplenomegaly, normal bowel sounds, no guarding or rigidity. SPINE: No scoliosis or deformity SKIN: No rashes CENTRAL NERVOUS SYSTEM: No focal deficits, tone is normal in all 4 extremities. EXTREMITIES: There is no peripheral edema. No clubbing, no cyanosis. Peripheral pulses are intact. - Labs CBC & Chem 7: 12/19/21 05:51 12/19/21 05:51 Labs: Abnormal Lab Results - Last 24 Hours (Table) 12/19/21 12/19/21 12/19/21 Range/Units 05:51 05:51 05:51 WBC 12.22 H (4.50-10.00) X 10*3/uL RBC 3.64 L (4.40-5.60) X 10*6/uL Hgb 11.3 L (13.0-17.0) g/dL Hct 36.0 L (39.6-50.0) % MCV 98.9 H (80.0-97.0) fL MCHC 31.4 L (32.0-37.0) g/dL Plt Count 122 L (140-440) X 10*3/uL Immature Gran # 0.10 H (0.00-0.04) X 10*3/uL Neutrophils # 11.35 H (1.80-7.70) X 10*3/uL Lymphocytes # 0.45 L (0.90-5.00) X 10*3/uL Eosinophils # 0 L (0.04-0.35) X 10*3/uL PT 51.9 H (9.9-11.9) sec INR 4.96 H (0.90-1.11) Carbon Dioxide 33.4 H (20.0-27.5) mmol/L Anion Gap 8.10 L (10.00-18.00) mmol/L BUN 48.8 H (9.0-27.0) mg/dL Est GFR (CKD-EPI)NonAf 53.0 L (60.0-200.0) BUN/Creatinine Ratio 38.43 H (12.00-20.00) Ratio Glucose 135 H (70-110) mg/dL Calcium 8.6 L (8.7-10.3) mg/dL Microbiology - Last 24 Hours (Table) 12/17/21 08:04 Blood Culture - Preliminary Blood No Growth after 48 hours 12/17/21 08:04 Blood Culture - Preliminary Blood No Growth after 48 hours 12/17/21 14:30 Gram Stain - Preliminary Sputum Sputum Culture - Preliminary Gram Neg Bacilli Assessment and Plan Assessment: Acute on chronic hypoxemic respiratory failure secondary to an acute exacerbation of chronic systolic congestive heart failure with an ejection fraction 25-30 % Sputum culture positive for E. coli on 12/05/2021, follow sputum culture revealing gram-negative bacilli from 12/17/2021, currently on ceftriaxone Moderate to severe pulmonary hypertension with an RVSP of 48 mmHg, follows at the [facility] pulmonary hypertension clinic History of Jesup valve replacement for severe COPD at [facility] 2-3 years ago History of chronic hypoxemic respiratory failure on home oxygen at 2 L/m nasal cannula. Paroxysmal atrial fibrillation anticoagulated with warfarin, INR of 5.0 History of bioprosthetic mitral valve History of tricuspid valve repair Hypertension Hyperlipidemia Frequent re admissions to the hospital for COPD/CHF Plan: The patient was seen and evaluated Labs and medications reviewed Continue bronchodilators, IV solu Medrol, IV diuretics Plan is for subacute rehab post discharge We will continue to follow I have personally seen and examined the patient, performed the documentation and the assessment and plan as written. Number of minutes spent on the visit: 10.
--- NOTE | 2021-12-19 12:58 | P.PN ---
Subjective Progress Note Date: 12/19/21 H&P Date: 12/17/21 Chief Complaint: sob This is a 81-year-old male with history of COPD, chronic hypoxic respiratory failure on 2 L nasal cannula at home, hyperlipidemia,vascular disorder, abdominal aortic aneurysm with stent placement, shinIvett adkins. fib, mitral valve replacement-prosthetic on Coumadin, anxiety, former nicotine dependence, daily wine intake, recently discharged on 12/09/2021 HE presented to the ER with dyspnea. Denies any chest pain, palpitations, lightheadedness, dizziness or focal deficits. Patient was seen in the ER. 12/18/2021 just returning from bathroom with exertional shortness of breath, pursed lip breathing. Maintained on nebulized bronchodilators, IV steroids, IV diuretics, O2 sat of 90s on 3 L nasal cannula. Coumadin per pharmacy dosing, INR up to 5. Afebrile, normal WBC, sputum culture pending. 12/19/2021 diuresing well on Lasix IV push, renal function worsening, BUN 48.8, creatinine 1.3. Bicarb 33.4.continuing on nebulized bronchodilators, IV steroids. maintaining O2 sats in the 90s on 3 L nasal cannula. Sputum culture reporting gram-negative bacilli, continues on ceftriaxone. Afebrile, WBC 12.22. Anticoagulated on Coumadin per pharmacy dosing, INR 4.96. Objective - Vital Signs Vital signs: Vital Signs Temp 97.8 F 12/19/21 11:23 Pulse 94 12/19/21 11:23 Resp 18 12/19/21 11:23 BP 106/54 12/19/21 11:23 Pulse Ox 94 L 12/19/21 11:23 FiO2 Intake & Output 12/18/21 12/19/21 12/19/21 18:59 06:59 18:59 Intake Total 586 Output Total 200 Balance 586 -200 Weight 63.2 kg 62.2 kg 62 kg Intake: Intake, IV Titration 50 Amount cefTRIAXone 1 gm In 50 Sodium Chloride 0.9% 50 ml @ 100 mls/hr IVPB Q12HR [facility] Rx#:[id number] Oral 536 Output: Urine 200 Other: Voiding Method Toilet Toilet - Exam GENERAL: Alert and oriented 3, Sitting up in chair, pursed lip breathing, mild anxiety HEENT: Conjunctivae normal. eyes normal. MMM. NECK: Supple, No JVD. No thyroid enlargement. No LNs CARDIOVASCULAR: S1, S2 regular. Systolic murmur. RESPIRATION: Labored, Breath sounds diminished in the bases. Scattered rhonchi. ABDOMEN: Soft, nontender . No guarding. no masses palpable. Positive Bowel sounds. LEGS: no edema, positive DP pulses NERVOUS SYSTEM: Cranial N 2-12 grossly normal.No focal deficits.Strength and sensation grossly intact. Skin: Warm and dry, no rash - Labs CBC & Chem 7: 12/19/21 05:51 12/19/21 05:51 Labs: Abnormal Lab Results - Last 24 Hours (Table) 12/19/21 12/19/21 12/19/21 Range/Units 05:51 05:51 05:51 WBC 12.22 H (4.50-10.00) X 10*3/uL RBC 3.64 L (4.40-5.60) X 10*6/uL Hgb 11.3 L (13.0-17.0) g/dL Hct 36.0 L (39.6-50.0) % MCV 98.9 H (80.0-97.0) fL MCHC 31.4 L (32.0-37.0) g/dL Plt Count 122 L (140-440) X 10*3/uL Immature Gran # 0.10 H (0.00-0.04) X 10*3/uL Neutrophils # 11.35 H (1.80-7.70) X 10*3/uL Lymphocytes # 0.45 L (0.90-5.00) X 10*3/uL Eosinophils # 0 L (0.04-0.35) X 10*3/uL PT 51.9 H (9.9-11.9) sec INR 4.96 H (0.90-1.11) Carbon Dioxide 33.4 H (20.0-27.5) mmol/L Anion Gap 8.10 L (10.00-18.00) mmol/L BUN 48.8 H (9.0-27.0) mg/dL Est GFR (CKD-EPI)NonAf 53.0 L (60.0-200.0) BUN/Creatinine Ratio 38.43 H (12.00-20.00) Ratio Glucose 135 H (70-110) mg/dL Calcium 8.6 L (8.7-10.3) mg/dL Microbiology - Last 24 Hours (Table) 12/17/21 08:04 Blood Culture - Preliminary Blood No Growth after 48 hours 12/17/21 08:04 Blood Culture - Preliminary Blood No Growth after 48 hours 12/17/21 14:30 Gram Stain - Preliminary Sputum Sputum Culture - Preliminary Gram Neg Bacilli Assessment and Plan Assessment: (1) Acute and chronic respiratory failure with hypoxia secondary to acute on chronic CHF exacerbation, systolic dysfunction Current Visit: Yes Status: Acute Code(s): J96.21 - ACUTE AND CHRONIC RESPIRATORY FAILURE WITH HYPOXIA SNOMED Code(s): 26518182 -Acute renal failure secondary to diuresing -Sputum culture reporting gram-negative bacilli (2) Paroxysmal atrial fibrillation Current Visit: Yes Status: Acute Code(s): I48.0 - PAROXYSMAL ATRIAL FIBRILLATION SNOMED Code(s): 917946236 (3) 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 therapy Current Visit: Yes Status: Acute Code(s): Z79.01 - NEUROPHYSIOLOGIST (CURRENT) USE OF ANTICOAGULANTS SNOMED Code(s): 165874517 (4) Pulmonary hypertension Current Visit: Yes Status: Acute Code(s): I27.20 - PULMONARY HYPERTENSION, UNSPECIFIED SNOMED Code(s): 65229863 (5) H/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 Current Visit: Yes Status: Acute Code(s): Z95.3 - PRESENCE OF XENOGENIC HEART VALVE SNOMED Code(s): 703572363 (6) Essential (primary) hypertension Current Visit: Yes Status: Acute Code(s): I10 - ESSENTIAL (PRIMARY) HYPERTENSION SNOMED Code(s): 84479598 (7) Mixed hyperlipidemia Current Visit: Yes Status: Acute Code(s): E78.2 - MIXED HYPERLIPIDEMIA SNOMED Code(s): 995817875 (8) COPD exacerbation Current Visit: Yes Status: Acute Code(s): J44.1 - CHRONIC OBSTRUCTIVE PULMONARY DISEASE W (ACUTE) EXACERBATION SNOMED Code(s): 533030042 (9) COPD (chronic obstructive pulmonary disease) Current Visit: No Status: Acute Code(s): J44.9 - CHRONIC OBSTRUCTIVE PULMONARY DISEASE, UNSPECIFIED SNOMED Code(s): 43740391 Plan: Continue on current medication regime ,monitoring and symptomatic treatment. Elevated INR, Coumadin dosing as per pharmacy. Renal function worsening, diuretics decreased. Close monitoring of renal function, electrolytes with repeat labs ordered for a.m. Maintain aggressive pulmonary toileting Subacute rehab at discharge. Prognosis guarded given multiple complex medical issues. The impression and plan of care has been dictated as directed. : I performed a history and examination of this patient, discussed the same with the dictator. I agree with the dictator's note ,documented as a scribe. Any additional findings or plans will be noted.
--- NOTE | 2021-12-19 13:30 | P.NPCON ---
History of Present Illness - Reason for Consult acute renal failure - History of Present Illness Patient is an 81-year-old male with history of COPD, chronic hypoxic respiratory failure maintained on home oxygen. Patient also has history of abdominal aortic aneurysm with stent placement, A. fib and valvular heart disease. He was admitted to the hospital with complaints of increased shortness of breath. He is currently being diuresed. Patient states that his leg swelling has improved with improvement in his respiratory status as well. Serum creatinine 1.0 on initial admission and it is 1.3 today. Blood pressure had been on the lower side with systolic 94-96 mmHg yesterday. Maintained on IV Lasix the dose of which has been decreased. Patient is also maintained on Diovan 40 mg twice a day. Urine output not charted accurately. Review of Systems As per HPI, other systems negative Past Medical History Past Medical History: Atrial Fibrillation, Heart Failure, COPD, GI Bleed, Hyperlipidemia, Pneumonia, Prostate Disorder, Renal Disease, Skin Disorder, Vascular Disorder Additional Past Medical History / Comment(s): GI bleed, gastritis, gastric ectasia, CKD stage III, past abdominal aortic aneurysm/had stent placed, varicosities, PVD, past shingellis and occasionally will have R flank nerve pain, BPH. History of Any Multi-Drug Resistant Organisms: None Reported Past Surgical History: Cardiac Valve Replacement, Cholecystectomy, Heart Catheterization Additional Past Surgical History / Comment(s): Stent placed for lower abd aortic aneurysym, mitral valve replacement/bicuspid repair, EGD with ablation, colonoscopy, excision L cheek lesion/mass and lesion from scalp/all benign, Past Anesthesia/Blood Transfusion Reactions: No Reported Reaction Date of Last Stent Placement:: 2015 Past Psychological History: Anxiety Additional Psychological History / Comment(s): Pt resides alone. He has home oxygen. He drives. Smoking Status: Former smoker Past Alcohol Use History: Daily Additional Past Alcohol Use History / Comment(s): Pt started smoking in 1952 and quit in 1986, Pt drinks 1 glass of wine a day. Past Drug Use History: None Reported - Past Family History Mother Family Medical History: Myocardial Infarction ([place]) Additional Family Medical History / Comment(s): at a young age. Father Family Medical History: Hypertension Medications and Allergies Home Medications Medication Instructions Recorded Confirmed Type LORazepam [Ativan] 1 mg PO TID PRN 11/21/17 12/17/21 History Tamsulosin [Flomax] 0.4 mg PO BID 11/21/17 12/17/21 History Bisoprolol Fumarate 5 mg PO DAILY 12 Days #12 tablet 10/07/18 12/17/21 Rx Atorvastatin [Lipitor] 10 mg PO HS 07/20/21 12/17/21 History Fluticasone Propion/Salmeterol 1 puff IN RT-BID 07/20/21 12/17/21 History [Advair 100-50 Diskus] Levalbuterol Hfa Inhaler [Xopenex 2 puff INHALATION RT-Q4H PRN MDD 07/20/21 12/17/21 History Hfa Inhaler] 4X DAILY Warfarin Sodium [Jantoven] 2 mg PO HS 07/20/21 12/17/21 History predniSONE 5 mg PO DAILY 07/20/21 12/17/21 History Ascorbic Acid [Vitamin C] 1,000 mg PO DAILY 11/28/21 12/17/21 History Cyanocobalamin (Vitamin B-12) 1,000 mcg PO DAILY 11/28/21 12/17/21 History [Vitamin B-12] Furosemide [Lasix] 40 mg PO DAILY 11/28/21 12/17/21 History LORazepam [Ativan] 0.5 mg PO HS 11/28/21 12/17/21 History Tiotropium 2.5 Mcg/Puff [Spiriva 2 puff INHALATION RT-DAILY 11/28/21 12/17/21 History Respimat 2.5 Mcg] Valsartan 40 mg PO BID 12/17/21 12/17/21 History Allergies Allergy/AdvReac Type Severity Reaction Status Date / Time albuterol Allergy Rapid Verified 12/17/21 15:07 Heart Rate empagliflozin Allergy Dyspnea Verified 12/17/21 15:07 [From Jardiance] pain med (can't remember Allergy Hallucinati Uncoded 12/04/21 17:37 name) ons Patches on chest Allergy Swelling Uncoded 12/04/21 17:37 Physical Exam Vitals: Vital Signs Temp Pulse Pulse Resp BP Pulse Ox 12/19/21 11:23 97.8 F 94 18 106/54 94 L 12/19/21 09:45 97.4 F L 98 18 134/77 12/19/21 08:20 94 L 12/19/21 04:27 97.7 F 84 18 111/67 97 12/18/21 20:00 92 18 12/18/21 17:32 97.8 F 92 18 129/79 98 Intake and Output 12/18/21 12/19/21 12/19/21 22:59 06:59 14:59 Intake Total 346 Output Total 200 Balance 346 -200 Intake: Intake, IV Titration 50 Amount cefTRIAXone 1 gm In 50 Sodium Chloride 0.9% 50 ml @ 100 mls/hr IVPB Q12HR [facility] Rx#:[id number] Oral 296 Output: Urine 200 Other: Voiding Method Toilet Toilet Weight 62.2 kg 62 kg Patient is awake, comfortable, not in any acute distress Examination of the heart S1 and S2 Examination of the lungs bilateral breath sounds are heard Examination of the lower extremity shows edema 2+ bilaterally with chronic skin changes and drinking suggesting recent decrease in edema. 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 Acute kidney injury cardiorenal and associated with low blood pressure along with diuresis 2. Volume overload 3. Acute on chronic systolic CHF 4. Cardiomyopathy with ejection fraction 25-30% 5. Moderate pulmonary hypertension Plan: Agree with decreasing Lasix Increase dose of Cozaar as blood pressure has been borderline Check urine analysis Repeat labs in a.m. next Thank you for the consultation. We'll continue to follow the patient with you during his hospitalization
[2021-12-19] MEDS ORDERED: WARFARIN 0.5 MG TAB PO ONE (18:00)
[2021-12-19] MEDS: NON FORMULARY DRUG (Levalbuterol Hfa Inhaler 200 PUFF/9 GM Gm) INHALATION PRN (19:39)
[2021-12-19] MEDS: ATORVASTATIN 10 MG TAB PO SCH (21:24)
[2021-12-19] MEDS: LORazepam 0.5 MG TAB PO SCH (21:24)
[2021-12-20] MEDS: methylPREDNISolone SOD SUCCI 125 MG/2 ML VIAL IV SCH ×3 (00:31→11:30)
[2021-12-20 05:35] LABS: African American GFR (CKD) 70 (>60 ml/min/1.73 sqM); Anion Gap 6 mmol/L; Blood Urea Nitrogen 62 mg/dL (9-20); Calcium 8.8 mg/dL (8.4-10.2); Carbon Dioxide 39 mmol/L (22-30); Chloride 98 mmol/L (98-107); Glucose 152 mg/dL (74-99); Non-African American GFR(CKD) 60 (>60 ml/min/1.73 sqM); Potassium 4.2 mmol/L (3.5-5.1); Sodium 143 mmol/L (137-145)
[2021-12-20] MEDS: SYMBICORT 80-4.5 MCG INHALER INHALATION SCH ×2 (07:34→20:03)
[2021-12-20] MEDS: NON FORMULARY DRUG (Levalbuterol Hfa Inhaler 200 PUFF/9 GM Gm) INHALATION PRN ×4 (07:38→20:04)
[2021-12-20] MEDS: LORazepam 0.5 MG TAB PO PRN (07:42)
[2021-12-20] MEDS: TAMSULOSIN 0.4 MG CAP.ER.24H PO SCH (07:42)
[2021-12-20] MEDS: CYANOCOBALAMIN 500 MCG TAB PO SCH (07:42)
[2021-12-20] MEDS: ASCORBIC ACID 500 MG TAB PO SCH (07:42)
[2021-12-20] MEDS: VALSARTAN 40 MG TAB PO SCH (07:43)
[2021-12-20] MEDS: BISOPROLOL 5 MG TAB PO SCH (07:43)
[2021-12-20] MEDS: FUROSEMIDE 80 MG TAB PO SCH (08:54)
--- NOTE | 2021-12-20 08:58 | P.PN ---
Subjective This is a 81-year-old male with a past medical history significant for COPD with home oxygen use, tissue mitral valve replacement and tricuspid valve repair of [facility] in 2015, non-ischemic cardiomyopathy, paroxysmal atrial fibrillation on warfarin, hypertension, AAA, COPD, former tobacco use, pulmonary hypertension and hyperlipidemia. Patient follows in the office with Dr. Kramer. We have been asked to see the patient in consultation for congestive heart failure. Patient states he presented to the hospital with complaints of worsening shortness of breath. He was recently discharged from the hospital with CHF. He states he wanted to go to Rehab and get stronger, however, he states he was too independent. He endorses difficulty doing daily activities at home and then has become more short of breath. He denies any orthopnea or PND. He denies any worsening LE edema. He states he is compliant with his medications. He does adhere to low salt diet. He denies any chest discomfort, lightheadedness, dizziness, syncope or near syncope. He is able to lay flat in bed. He was started on IV Lasix, IV steroids and antibiotics. He states that he was on Jardiance but had increased side effects to this medication. DIAGNOSTICS: * Echocardiogram 11/29/2021 revealed EF of 25-30% severe left atrial dilatation, bioprosthetic mitral valve functioning normally, repair of tricuspid valve with moderate tricuspid regurgitation, moderate aortic regurgitation 12/20/2021 Patient seen and examined at bedside, in no acute distress. His breathing has improved. He states he has been having good urine output. No complaints or acute events overnight. He is currently on IV Lasix 40 mg daily Labs, sodium 143, potassium 4.2, BUN 62, serum creatinine 1.1. PHYSICAL EXAM: VITAL SIGNS: Reviewed. GENERAL: Well-developed in no acute distress. HEENT: Head is normocephalic. Neck supple. No JVD LUNGS: Respirations even and unlabored. Lungs with decreased air exchanged bilateral bases HEART: Regular rate and rhythm. S1 and S2 heard. Soft systolic murmur noted. ABDOMEN: Soft. Nondistended. Nontender. EXTREMITIES: Normal range of motion. No clubbing or cyanosis. Peripheral pulses intact. 1+ bilateral lower extremity edema NEUROLOGIC: Awake and alert. Oriented x 3. ASSESSMENT: Shortness of breath Acute on chronic heart failure with reduced ejection fraction COPD exacerbation with home oxygen use Paroxysmal atrial fibrillation on coumadin Abnormal troponins, likely secondary to congestive heart failure Non-ischemic cardiomyopathy History of mitral valve replacement in 2015 History of tricuspid valve repair in 2015 History of AAA Hyperlipidemia PLAN: Recommend transition to Lasix 80mg daily Monitor I/Os daily weights, renal function and electrolytes Coumadin on hold for supratherapeutic INR, monitor INR Continue statin, valsartan and bisoprolol Consider spironolactone as an outpatient Patient intolerant to Jardiance recently Further recommendations pending patient course Nurse practitioner note has been reviewed by physician. Signing provider agrees with the documented findings, assessment, and plan of care. Objective - Vital Signs Vital signs: Vital Signs Temp 97.5 F L 12/20/21 04:30 Pulse 88 12/20/21 04:30 Resp 20 12/20/21 04:30 BP 126/74 12/20/21 04:30 Pulse Ox 95 12/19/21 17:10 FiO2 Intake & Output 12/19/21 12/20/21 12/20/21 18:59 06:59 18:59 Weight 62 kg 62.6 kg Other: Voiding Method Toilet Toilet - Labs CBC & Chem 7: 12/19/21 05:51 12/20/21 04:33 Labs: Abnormal Lab Results - Last 24 Hours (Table) 12/19/21 12/19/21 12/19/21 Range/Units 05:51 05:51 05:51 WBC 12.22 H (4.50-10.00) X 10*3/uL RBC 3.64 L (4.40-5.60) X 10*6/uL Hgb 11.3 L (13.0-17.0) g/dL Hct 36.0 L (39.6-50.0) % MCV 98.9 H (80.0-97.0) fL MCHC 31.4 L (32.0-37.0) g/dL Plt Count 122 L (140-440) X 10*3/uL Immature Gran # 0.10 H (0.00-0.04) X 10*3/uL Neutrophils # 11.35 H (1.80-7.70) X 10*3/uL Lymphocytes # 0.45 L (0.90-5.00) X 10*3/uL Eosinophils # 0 L (0.04-0.35) X 10*3/uL PT 51.9 H (9.9-11.9) sec INR 4.96 H (0.90-1.11) Carbon Dioxide 33.4 H (20.0-27.5) mmol/L Anion Gap 8.10 L (10.00-18.00) mmol/L BUN 48.8 H (9.0-27.0) mg/dL Est GFR (CKD-EPI)NonAf 53.0 L (60.0-200.0) BUN/Creatinine Ratio 38.43 H (12.00-20.00) Ratio Glucose 135 H (70-110) mg/dL Calcium 8.6 L (8.7-10.3) mg/dL 12/20/21 Range/Units 04:33 WBC (4.50-10.00) X 10*3/uL RBC (4.40-5.60) X 10*6/uL Hgb (13.0-17.0) g/dL Hct (39.6-50.0) % MCV (80.0-97.0) fL MCHC (32.0-37.0) g/dL Plt Count (140-440) X 10*3/uL Immature Gran # (0.00-0.04) X 10*3/uL Neutrophils # (1.80-7.70) X 10*3/uL Lymphocytes # (0.90-5.00) X 10*3/uL Eosinophils # (0.04-0.35) X 10*3/uL PT (9.9-11.9) sec INR (0.90-1.11) Carbon Dioxide 39 H (20.0-27.5) mmol/L Anion Gap (10.00-18.00) mmol/L BUN 62 H (9.0-27.0) mg/dL Est GFR (CKD-EPI)NonAf (60.0-200.0) BUN/Creatinine Ratio (12.00-20.00) Ratio Glucose 152 H (70-110) mg/dL Calcium (8.7-10.3) mg/dL Microbiology - Last 24 Hours (Table) 12/17/21 08:04 Blood Culture - Preliminary Blood No Growth after 48 hours 12/17/21 08:04 Blood Culture - Preliminary Blood No Growth after 48 hours 12/17/21 14:30 Gram Stain - Preliminary Sputum Sputum Culture - Preliminary Gram Neg Bacilli
[2021-12-20] MEDS ORDERED: FUROSEMIDE 10 MG/ML 4 ML VIAL IV SCH (09:00)
[2021-12-20 09:40] LABS: INR 3.02 (0.90-1.11); Prothrombin Time 31.5 sec (9.9-11.9)
--- NOTE | 2021-12-20 11:51 | P.PN ---
Subjective Progress Note Date: 12/20/21 This is a pleasant 81-year-old male patient with a known history of chronic obstructive pulmonary disease with previous Alpha valve placement at [facility] 2-3 years ago, he has been maintained on Wixella, Spiriva, Xopenex in the outpatient setting. He also has a history of secondary pulmonary hypertension and follows at the [facility] pulmonary hypertension clinic. He has chronic hypoxemic respiratory failure maintained on home oxygen at 2 L/m per nasal cannula, paroxysmal atrial fibrillation anticoagulated with warfarin, hypertension, hyperlipidemia. He was just recently discharged home after having an episode of acute exacerbation of mild systolic congestive heart failure. He does have evidence of pulmonary fibrosis and COPD. Echocardiogram revealed impaired left ventricular systolic function with ejection fraction 25- 30%. During the last hospitalization, the patient was also found to have E. coli in his sputum and based on that, the patient was discharged home on oral Augmentin. He was discharged home on 12/09/2021. He was readmitted yesterday because of worsening shortness of breath. He was seen in the ED. He was having cough and white sputum. He was having difficulty breathing. His temperature was normal. Normal hemodynamics. The patient had a white cell count of 8.2 with hemoglobin 12.6 and a platelet count of 96, sodium was 136, BUN is 29 with a creatinine of 1, normal LFTs, troponin of 0.06, proBNP level of 7510, covid19 was negative, influenza was negative. The chest x-ray is consistent with COPD/CHF. The patient is seen today 12/18/2021 in follow-up on the regular medical floor. He is currently sitting up in bed. Awake and alert in no acute distress. He is feeling better today compared to yesterday. He is maintaining O2 saturation in the 90s on 3 L/m per nasal cannula. Afebrile. Hemodynamically stable. Blood c ultures reveal no growth to date. Sputum culture pending. INR 5.0. He is continued on Symbicort, Xopenex, IV Solu-Medrol, IV diuretics. No accurate I&O. Antibiotics in the form of ceftriaxone. Anticoagulated with warfarin. Supra therapeutic. The patient is seen today 12/19/2021 in follow-up on the regular medical floor. Sitting up in a chair at the bedside. Awake and alert in no acute distress. Maintaining O2 saturations in the 90s on 3 L/m per nasal cannula. Afebrile. Hemodynamically stable. Sputum culture is again revealing gram-negative bacilli. Blood cultures are revealing no growth. White count 12.2. Hemoglobin 11.3. INR 4.96. Sodium 144. Potassium 4.8. Bicarb 33. BUN of 49. Creatinine 1.3. He remains on bronchodilators, IV diuretics, IV Solu-Medrol, antibiotics in the form of ceftriaxone. The patient is seen today 12/20/2021 in follow-up on the regular medical floor. He is currently sitting up in bed having breakfast. Awake and alert in no acute distress. Denies any worsening shortness of breath, cough or congestion. Still with some dyspnea on exertion. Dyspnea with conversation. Dry nonproductive cough. Feeling back to his baseline. He is continued on Symbicort, Xopenex, IV Solu-Medrol. Remains on oral diuretics. Sputum cultures positive for E. coli. Blood cultures reveal no growth. Antibiotics in the form of ceftriaxone. INR 3.02. Sodium 143. Potassium 4.2. BUN 62. Creatinine 1.15. Objective - Vital Signs Vital signs: Vital Signs Temp 97.7 F 12/20/21 09:04 Pulse 96 12/20/21 09:04 Resp 24 12/20/21 09:04 BP 129/85 12/20/21 09:04 Pulse Ox 97 12/20/21 09:04 FiO2 Intake & Output 12/19/21 12/20/21 12/20/21 18:59 06:59 18:59 Weight 62 kg 62.6 kg Other: Voiding Method Toilet Toilet - Exam GENERAL EXAM: Alert, very pleasant 81-year-old male patient, on 3 L, comfortable in no apparent distress. HEAD: Normocephalic. EYES: Normal reaction of pupils, equal size. NOSE: Clear with pink turbinates. THROAT: No erythema or exudates. NECK: No masses, no JVD. CHEST: No chest wall deformity. LUNGS: Equal air entry with few scattered rhonchi, diminished. CVS: S1 and S2 normal with no audible murmur, regular rhythm. ABDOMEN: No hepatosplenomegaly, normal bowel sounds, no guarding or rigidity. SPINE: No scoliosis or deformity SKIN: No rashes CENTRAL NERVOUS SYSTEM: No focal deficits, tone is normal in all 4 extremities. EXTREMITIES: There is no peripheral edema. No clubbing, no cyanosis. Peripheral pulses are intact. - Labs CBC & Chem 7: 12/19/21 05:51 12/20/21 04:33 Labs: Abnormal Lab Results - Last 24 Hours (Table) 12/20/21 12/20/21 Range/Units 04:33 04:33 PT 31.5 H (9.9-11.9) sec INR 3.02 H (0.90-1.11) Carbon Dioxide 39 H (22-30) mmol/L BUN 62 H (9-20) mg/dL Glucose 152 H (74-99) mg/dL Microbiology - Last 24 Hours (Table) 12/17/21 14:30 Gram Stain - Final Sputum Sputum Culture - Final Escherichia coli 12/17/21 08:04 Blood Culture - Preliminary Blood No Growth after 72 hours 12/17/21 08:04 Blood Culture - Preliminary Blood No Growth after 72 hours Assessment and Plan Assessment: Acute on chronic hypoxemic respiratory failure secondary to an acute exac erbation of chronic systolic congestive heart failure with an ejection fraction 25-30 % Sputum culture positive for E. coli on 12/05/2021, follow sputum culture revealing E. coli from 12/17/2021, currently on ceftriaxone Moderate to severe pulmonary hypertension with an RVSP of 48 mmHg, follows at the [facility] pulmonary hypertension clinic History of Alpha valve replacement for severe COPD at [facility] 2-3 years ago History of chronic hypoxemic respiratory failure on home oxygen at 2 L/m nasal cannula. Paroxysmal atrial fibrillation anticoagulated with warfarin, INR of 5.0 History of bioprosthetic mitral valve History of tricuspid valve repair Hypertension Hyperlipidemia Frequent re admissions to the hospital for COPD/CHF Plan: The patient was seen and evaluated Labs and medications reviewed Continue bronchodilators Change Solu medrol to prednisone taper Continue oral diuretics Complete a course of antibiotics Plan is for subacute rehab post discharge I have personally seen and examined the patient, performed the documentation and the assessment and plan as written. Number of minutes spent on the visit: 10.
--- NOTE | 2021-12-20 14:19 | P.PN ---
Subjective 12/17/21 This is a 81-year-old male with history of COPD, chronic hypoxic respiratory failure on 2 L nasal cannula at home, hyperlipidemia,vascular d isorder, abdominal aortic aneurysm with stent placement, Lin lozano, mitral valve replacement-prosthetic on Coumadin, anxiety, former nicotine dependence, daily wine intake, recently discharged on 12/09/2021 HE presented to the ER with dyspnea. Denies any chest pain, palpitations, lightheadedness, dizziness or focal deficits. Patient was seen in the ER. 12/18/2021 just returning from bathroom with exertional shortness of breath, pursed lip breathing. Maintained on nebulized bronchodilators, IV steroids, IV diuretics, O2 sat of 90s on 3 L nasal cannula. Coumadin per pharmacy dosing, INR up to 5. Afebrile, normal WBC, sputum culture pending. 12/19/2021 diuresing well on Lasix IV push, renal function worsening, BUN 48.8, creatinine 1.3. Bicarb 33.4.continuing on nebulized bronchodilators, IV steroids. maintaining O2 sats in the 90s on 3 L nasal cannula. Sputum culture reporting gram-negative bacilli, continues on ceftriaxone. Afebrile, WBC 12.22. Anticoagulated on Coumadin per pharmacy dosing, INR 4.96. 12/20/2021: patient is reevaluated today for his ongoing CHF and COPD. He's being followed by cardiology pulmonology and nephrology. His vitals remain stable. He remains on 4 L of oxygen via nasal cannula. 'Microbiology shows a sputum culture positive E. coli with multiple susceptibilities. He remains on Rocephin. He continues on Coumadin for long-term anticoagulation Michelle fibrillation, prednisone, Symbicort albuterol, for his COPD. Remains on Lasix 80 mg now daily for his CHF along with valsartan. His overall conditions improved. He continues to have significant medical debility. Will plan on ECF Objective - Vital Signs Vital signs: Vital Signs Temp 97.7 F 12/20/21 12:18 Pulse 95 12/20/21 12:18 Resp 18 12/20/21 12:18 BP 127/65 12/20/21 12:18 Pulse Ox 97 12/20/21 12:18 FiO2 Intake & Output 12/19/21 12/20/21 12/20/21 18:59 06:59 18:59 Weight 62 kg 62.6 kg Other: Voiding Method Toilet Toilet - Exam GENERAL: Alert and oriented 3, Sitting up in chair, NECK: Supple, No JVD. No thyroid enlargement. No LNs CARDIOVASCULAR: S1, S2 regular. Systolic murmur. RESPIRATION: Labored, Breath sounds diminished in the bases. Scattered rhonchi. ABDOMEN: Soft, nontender . No guarding. no masses palpable. Positive Bowel sounds. LEGS: +2 edema to knees, positive DP pulses NERVOUS SYSTEM: Cranial N 2-12 grossly normal.No focal deficits.Strength and sensation grossly intact. Skin: Warm and dry, no rash - Labs CBC & Chem 7: 12/19/21 05:51 12/20/21 04:33 Labs: Abnormal Lab Results - Last 24 Hours (Table) 12/20/21 12/20/21 Range/Units 04:33 04:33 PT 31.5 H (9.9-11.9) sec INR 3.02 H (0.90-1.11) Carbon Dioxide 39 H (22-30) mmol/L BUN 62 H (9-20) mg/dL Glucose 152 H (74-99) mg/dL Microbiology - Last 24 Hours (Table) 12/17/21 14:30 Gram Stain - Final Sputum Sputum Culture - Final Escherichia coli 12/17/21 08:04 Blood Culture - Preliminary Blood No Growth after 72 hours 12/17/21 08:04 Blood Culture - Preliminary Blood No Growth after 72 hours Assessment and Plan (1) Acute and chronic respiratory failure with hypoxia Current Visit: Yes Status: Acute Code(s): J96.21 - ACUTE AND CHRONIC RESPIRATORY FAILURE WITH HYPOXIA SNOMED Code(s): 57918251 (2) Paroxysmal atrial fibrillation Current Visit: Yes Status: Acute Code(s): I48.0 - PAROXYSMAL ATRIAL FIBRILLATION SNOMED Code(s): 294647177 (3) prison current use of anticoagulant therapy Current Visit: Yes Status: Acute Code(s): Z79.01 - ALF (CURRENT) USE OF ANTICOAGULANTS SNOMED Code(s): 355976611 (4) Pulmonary hypertension Current Visit: Yes Status: Acute Code(s): I27.20 - PULMONARY HYPERTENSION, UNSPECIFIED SNOMED Code(s): 89958908 (5) H/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 Current Visit: Yes Status: Acute Code(s): Z95.3 - PRESENCE OF XENOGENIC HEART VALVE SNOMED Code(s): 107703135 (6) Essential (primary) hypertension Current Visit: Yes Status: Acute Code(s): I10 - ESSENTIAL (PRIMARY) HYPERTENSION SNOMED Code(s): 14562048 (7) Mixed hyperlipidemia Current Visit: Yes Status: Acute Code(s): E78.2 - MIXED HYPERLIPIDEMIA SNOMED Code(s): 512337478 (8) COPD exacerbation Current Visit: Yes Status: Acute Code(s): J44.1 - CHRONIC OBSTRUCTIVE PULMONARY DISEASE W (ACUTE) EXACERBATION SNOMED Code(s): 209679933 (9) COPD (chronic obstructive pulmonary disease) Current Visit: No Status: Acute Code(s): J44.9 - CHRONIC OBSTRUCTIVE PULMONARY DISEASE, UNSPECIFIED SNOMED Code(s): 29860752 Plan: Continue Current medication's, repeat labs in a.m., plan ECF soon
--- NOTE | 2021-12-20 17:02 | P.PN ---
Subjective Patient is seen for follow-up for acute kidney injury. Patient is being diuresed Renal function has improved as blood pressures have improved. Dose of Diovan was decreased yesterday. Lasix has been changed to by mouth Serum creatinine down to 1.1 from 1.3 yesterday. Next Patient denies any shortness of breath He has had good urine output. Objective - Vital Signs Vital signs: Vital Signs Temp 97.7 F 12/20/21 12:18 Pulse 95 12/20/21 12:18 Resp 18 12/20/21 12:18 BP 127/65 12/20/21 12:18 Pulse Ox 97 12/20/21 12:18 FiO2 Intake & Output 12/19/21 12/20/21 12/20/21 18:59 06:59 18:59 Weight 62 kg 62.6 kg Other: Voiding Method Toilet Toilet - Exam Awake, comfortable, not in any acute distress Examination of the heart S1 and S2 Examination of the lungs bilateral breath sounds are heard Abdomen is soft nontender Examination of lower extremities shows edema 2+ bilaterally TOOLMAKER exam grossly intact - Labs CBC & Chem 7: 12/19/21 05:51 12/20/21 04:33 Labs: Abnormal Lab Results - Last 24 Hours (Table) 12/20/21 12/20/21 Range/Units 04:33 04:33 PT 31.5 H (9.9-11.9) sec INR 3.02 H (0.90-1.11) Carbon Dioxide 39 H (22-30) mmol/L BUN 62 H (9-20) mg/dL Glucose 152 H (74-99) mg/dL Microbiology - Last 24 Hours (Table) 12/17/21 14:30 Gram Stain - Final Sputum Sputum Culture - Final Escherichia coli 12/17/21 08:04 Blood Culture - Preliminary Blood No Growth after 72 hours 12/17/21 08:04 Blood Culture - Preliminary Blood No Growth after 72 hours Assessment and Plan Assessment: 1. Acute kidney injury cardiorenal and associated with low blood pressure along with diuresis 2. Volume overload 3. Acute on chronic systolic CHF 4. Cardiomyopathy with ejection fraction 25-30% 5. Moderate pulmonary hypertension 6. Metabolic alkalosis secondary to diuresis Plan: Continue with current dose of oral Lasix Add Demadex for metabolic alkalosis 1 Repeat labs in a.m.
[2021-12-20] MEDS ORDERED: WARFARIN 1 MG TAB PO ONE (18:00)
[2021-12-20] MEDS: ATORVASTATIN 10 MG TAB PO SCH (20:15)
[2021-12-20] MEDS: LORazepam 0.5 MG TAB PO SCH (23:40)
[2021-12-21 05:00] VITALS: RESP 20
[2021-12-21 05:23] LABS: INR 2.5 (<1.2); Prothrombin Time 25.2 sec (9.0-12.0)
[2021-12-21 05:35] LABS: African American GFR (CKD) 70 (>60 ml/min/1.73 sqM); Anion Gap 8 mmol/L; Blood Urea Nitrogen 63 mg/dL (9-20); Calcium 8.8 mg/dL (8.4-10.2); Chloride 94 mmol/L (98-107); Glucose 114 mg/dL (74-99); Non-African American GFR(CKD) 61 (>60 ml/min/1.73 sqM); Potassium 4.6 mmol/L (3.5-5.1); Sodium 142 mmol/L (137-145)
[2021-12-21 05:41] LABS: Carbon Dioxide 40 mmol/L (22-30)
[2021-12-21] MEDS: SYMBICORT 80-4.5 MCG INHALER INHALATION SCH (05:51)
[2021-12-21] MEDS: NON FORMULARY DRUG (Levalbuterol Hfa Inhaler 200 PUFF/9 GM Gm) INHALATION PRN (05:51)
[2021-12-21] MEDS: VALSARTAN 40 MG TAB PO SCH (08:05)
[2021-12-21] MEDS: FUROSEMIDE 80 MG TAB PO SCH (08:06)
[2021-12-21] MEDS: TAMSULOSIN 0.4 MG CAP.ER.24H PO SCH (08:06)
[2021-12-21] MEDS: CYANOCOBALAMIN 500 MCG TAB PO SCH (08:07)
[2021-12-21] MEDS: ASCORBIC ACID 500 MG TAB PO SCH (08:08)
[2021-12-21] MEDS: BISOPROLOL 5 MG TAB PO SCH (08:08)
[2021-12-21] MEDS ORDERED: predniSONE 20 MG TAB PO SCH (09:00)
[2021-12-21] MEDS ORDERED: acetaZOLAMIDE 250 MG TAB PO SCH (09:00)
--- NOTE | 2021-12-21 10:56 | P.PN ---
Subjective Progress Note Date: 12/21/21 This is a pleasant 81-year-old male patient with a known history of chronic obstructive pulmonary disease with previous [place] valve placement at [facility] 2-3 years ago, he has been maintained on Wixella, Spiriva, Xopenex in the outpatient setting. He also has a history of secondary pulmonary hypertension and follows at the [facility] pulmonary hypertension clinic. He has chronic hypoxemic respiratory failure maintained on home oxygen at 2 L/m per nasal cannula, paroxysmal atrial fibrillation anticoagulated with warfarin, hypertension, hyperlipidemia. He was just recently discharged home after having an episode of acute exacerbation of mild systolic congestive heart failure. He does have evidence of pulmonary fibrosis and COPD. Echocardiogram revealed impaired left ventricular systolic function with ejection fraction 25- 30%. During the last hospitalization, the patient was also found to have E. coli in his sputum and based on that, the patient was discharged home on oral Augmentin. He was discharged home on 12/09/2021. He was readmitted yesterday because of worsening shortness of breath. He was seen in the ED. He was having cough and white sputum. He was having difficulty breathing. His temperature was normal. Normal hemodynamics. The patient had a white cell count of 8.2 with hemoglobin 12.6 and a platelet count of 96, sodium was 136, BUN is 29 with a creatinine of 1, normal LFTs, troponin of 0.06, proBNP level of 7510, covid19 was negative, influenza was negative. The chest x-ray is consistent with COPD/CHF. The patient is seen today 12/18/2021 in follow-up on the regular medical floor. He is currently sitting up in bed. Awake and alert in no acute distress. He is feeling better today compared to yesterday. He is maintaining O2 saturation in the 90s on 3 L/m per nasal cannula. Afebrile. Hemodynamically stable. Blood c ultures reveal no growth to date. Sputum culture pending. INR 5.0. He is continued on Symbicort, Xopenex, IV Solu-Medrol, IV diuretics. No accurate I&O. Antibiotics in the form of ceftriaxone. Anticoagulated with warfarin. Supra therapeutic. The patient is seen today 12/19/2021 in follow-up on the regular medical floor. Sitting up in a chair at the bedside. Awake and alert in no acute distress. Maintaining O2 saturations in the 90s on 3 L/m per nasal cannula. Afebrile. Hemodynamically stable. Sputum culture is again revealing gram-negative bacilli. Blood cultures are revealing no growth. White count 12.2. Hemoglobin 11.3. INR 4.96. Sodium 144. Potassium 4.8. Bicarb 33. BUN of 49. Creatinine 1.3. He remains on bronchodilators, IV diuretics, IV Solu-Medrol, antibiotics in the form of ceftriaxone. The patient is seen today 12/20/2021 in follow-up on the regular medical floor. He is currently sitting up in bed having breakfast. Awake and alert in no acute distress. Denies any worsening shortness of breath, cough or congestion. Still with some dyspnea on exertion. Dyspnea with conversation. Dry nonproductive cough. Feeling back to his baseline. He is continued on Symbicort, Xopenex, IV Solu-Medrol. Remains on oral diuretics. Sputum cultures positive for E. coli. Blood cultures reveal no growth. Antibiotics in the form of ceftriaxone. INR 3.02. Sodium 143. Potassium 4.2. BUN 62. Creatinine 1.15. The patient is seen today 12/21/2021 in follow-up on the regular medical floor. He is awake and alert in no acute distress. Sitting up in a chair at the bedside. Denies any worsening shortness of breath, cough or congestion. Sputum culture was positive for E. coli. Blood cultures revealed no growth. INR 2.5. Sodium 142. Potassium 4.6. BUN 63. Creatinine 1.14. ProBNP 5680. He's completed a course of antibiotics. Remains on oral diuretics. Remains on Symbicort and prednisone taper. Anticoagulated with warfarin. Objective - Vital Signs Vital signs: Vital Signs Temp 98.0 F 12/21/21 04:58 Pulse 89 12/21/21 08:05 Resp 20 12/21/21 04:58 BP 118/71 12/21/21 08:05 Pulse Ox 97 12/21/21 04:58 FiO2 Intake & Output 12/20/21 12/21/21 12/21/21 18:59 06:59 18:59 Other: Voiding Method Toilet - Exam GENERAL EXAM: Alert, 81-year-old male patient, on 3 L, comfortable in no apparent distress. HEAD: Normocephalic. EYES: Normal reaction of pupils, equal size. NOSE: Clear with pink turbinates. THROAT: No erythema or exudates. NECK: No masses, no JVD. CHEST: No chest wall deformity. LUNGS: Equal air entry with few scattered rhonchi, diminished. CVS: S1 and S2 normal with no audible murmur, regular rhythm. ABDOMEN: No hepatosplenomegaly, normal bowel sounds, no guarding or rigidity. SPINE: No scoliosis or deformity SKIN: No rashes CENTRAL NERVOUS SYSTEM: No focal deficits, tone is normal in all 4 extremities. EXTREMITIES: There is no peripheral edema. No clubbing, no cyanosis. P eripheral pulses are intact. - Labs CBC & Chem 7: 12/19/21 05:51 12/21/21 04:46 Labs: Abnormal Lab Results - Last 24 Hours (Table) 12/21/21 12/21/21 Range/Units 04:46 04:46 PT 25.2 H (9.0-12.0) sec INR 2.5 H (<1.2) Chloride 94 L (98-107) mmol/L Carbon Dioxide 40 H (22-30) mmol/L BUN 63 H (9-20) mg/dL Glucose 114 H (74-99) mg/dL Microbiology - Last 24 Hours (Table) 12/17/21 08:04 Blood Culture - Preliminary Blood No Growth after 96 hours 12/17/21 08:04 Blood Culture - Preliminary Blood No Growth after 96 hours 12/17/21 14:30 Gram Stain - Final Sputum Sputum Culture - Final Escherichia coli Assessment and Plan Assessment: Acute on chronic hypoxemic respiratory failure secondary to an acute exacerbation of chronic systolic congestive heart failure with an ejection fraction 25-30 % Sputum culture positive for E. coli on 12/05/2021, follow up sputum culture revealing E. coli from 12/17/2021, currently on ceftriaxone Moderate to severe pulmonary hypertension with an RVSP of 48 mmHg, follows at the [facility] pulmonary hypertension clinic History of [place] valve replacement for severe COPD at [facility] 2-3 years ago History of chronic hypoxemic respiratory failure on home oxygen at 2 L/m nasal cannula. Paroxysmal atrial fibrillation anticoagulated with warfarin, INR of 5.0 History of bioprosthetic mitral valve History of tricuspid valve repair Hypertension Hyperlipidemia Frequent re admissions to the hospital for COPD/CHF Plan: The patient was seen and evaluated Labs and medications reviewed No need for continued antibiotics Cleared for discharge from the pulmonary standpoint Plan is for subacute rehab post discharge I have personally seen and examined the patient, performed the documentation and the assessment and plan as written. Number of minutes spent on the visit: 10.
--- NOTE | 2021-12-21 10:58 | CDI ---
Documentation Clarification Form Date: 12/21/2021 10:05:58 AM From: Bertha Dinero RN CCDS Admit Date: 12/17/2021 11:30:00 AM Patient Name: Ankur Pereira Visit Number: [id number] Discharge Date: ATTENTION: The Clinical Documentation Specialists (CDI) and [facility] Coding Staff appreciate your assistance in clarifying documentation. Please respond to the clarification below the line at the bottom and electronically sign. The CDI & [facility] Coding staff will review the response and follow-up if needed. Please note: Queries are made part of the Legal Health Record. If you have any questions, please contact the author of this message via ITS. Dr. Sae Bey Acute on chronic hypoxemic respiratory failure secondary to an acute exacerbation of chronic systolic heart failure is documented in the Medicine progress note, 12/19, but is not noted in subsequent documentation. Clarification is requested. History/Risk factors: 81-year-old male presented to the ED with difficulty breathing, cough with white sputum has been hospitalized twice in the last month similar symptoms with medical history of Systolic heart failure, Pulmonary hypertension, COPD with pulmonary fibrosis and Atrial fibrillation. 12/17, Pulmonary Consult. Clinical Indicators: BNP: 12/17 7510 CXR: 12/18 Difficult to exclude interstitial edema, correlate for volume overload, pneumonia not excluded. Emphysema. Vital Signs: 12/17 B/P 133/83; HR 106; Temp 98.7F Oral; RR 22; SpO2 91% 15L nonrebreather. Pulmonary Consult, 12/17: Acute on chronic hypoxemic respiratory failure secondary to acute exacerbation of chronic systolic congestive heart failure Treatment: 12/18- 12/19 Lasix 40mg IV Q12H; 12/20 Lasix 40mg IV Daily changed 12/20 to Lasix 80mg PO Daily. 12/17 Solumedrol 125mg IV x 1; 12/17 12/20Solumedrol 60mg IV Q6HR; 12/17 Atrovent nebulized inhalation x 1 Consults: Pulmonary consult 12/17 Please clarify Acute exacerbation of systolic heart failure: [x ] Acute on chronic exacerbation of systolic heart failure [ ] Other, please specify [ ] Unable to determine (Template Last Revised: May 2020) MTDD
--- NOTE | 2021-12-21 12:49 | P.DS ---
Providers Date of admission: 12/17/21 11:30 Expected date of discharge: 12/21/21 Attending physician: Sae Rodriguez Consults: 12/17/21 11:30 Consult Physician Routine Consulting Provider: Eduardo Patrick Consult Reason/Comments: dyspnea Do you want consulting provider notified?: Yes 12/18/21 13:35 Consult Physician Routine Consulting Provider: Brandt Pendleton Consult Reason/Comments: CHF ex Do you want consulting provider notified?: Yes 12/19/21 13:08 Consult Physician Routine Consulting Provider: Antonina Mcpherson Consult Reason/Comments: acute on CKD, CHF Do you want consulting provider notified?: Yes Primary care physician: Tan Bey Assessment: acute exacerbation of chronic COPd By history General: [Patient awake, alert and oriented times 3. Patient in no acute distress.] HEENT: [PERRL. EOMI. No pharyngeal erythema or exudate.] Neck: [No adenopathy.] Cardiac: [Heart regular in rate and rhythm. No S3. No S4. No clicks, rubs. No murmur.] Lungs: bilateral wheezes throughout diminished air exchange Abdomen: [No mass. No organomegaly. Bowel sounds presnt and normoactive in all 4 quadrants.] Extremes: [No edema no cyanosis no claudication normal pulses] :normal male genitalia Musculoskeletal: [No joint erythema, edema or tenderness.] Skin: [No rash.] Neurologic: [No lateralizing deficits. CN II - XII grossly intact.] Lymphatic: [No adenopathy.] Patient Condition at Discharge: Fair Plan - Discharge Summary Discharge Rx Participant: No New Discharge Prescriptions: No Action LORazepam [Ativan] 1 mg PO TID PRN PRN Reason: Anxiety Tamsulosin [Flomax] 0.4 mg PO BID Bisoprolol Fumarate 5 mg PO DAILY 12 Days #12 tablet Atorvastatin [Lipitor] 10 mg PO HS Fluticasone Propion/Salmeterol [Advair 100-50 Diskus] 1 puff IN RT-BID Warfarin Sodium [Jantoven] 2 mg PO HS Furosemide [Lasix] 40 mg PO DAILY Valsartan 40 mg PO BID Levalbuterol Hfa Inhaler [Xopenex Hfa Inhaler] 2 puff INHALATION RT-Q4H PRN MDD 4X DAILY PRN Reason: Shortness Of Breath predniSONE 5 mg PO DAILY Cyanocobalamin (Vitamin B-12) [Vitamin B-12] 1,000 mcg PO DAILY LORazepam [Ativan] 0.5 mg PO HS Ascorbic Acid [Vitamin C] 1,000 mg PO DAILY Tiotropium 2.5 Mcg/Puff [Spiriva Respimat 2.5 Mcg] 2 puff INHALATION RT-DAILY Discharge Medication List LORazepam [Ativan] 1 mg PO TID PRN 11/21/17 [History] Tamsulosin [Flomax] 0.4 mg PO BID 11/21/17 [History] Bisoprolol Fumarate 5 mg PO DAILY 12 Days #12 tablet 10/07/18 [Rx] Atorvastatin [Lipitor] 10 mg PO HS 07/20/21 [History] Fluticasone Propion/Salmeterol [Advair 100-50 Diskus] 1 puff IN RT-BID 07/20/21 [History] Levalbuterol Hfa Inhaler [Xopenex Hfa Inhaler] 2 puff INHALATION RT-Q4H PRN MDD 4X DAILY 07/20/21 [History] Warfarin Sodium [Jantoven] 2 mg PO HS 07/20/21 [History] predniSONE 5 mg PO DAILY 07/20/21 [History] Ascorbic Acid [Vitamin C] 1,000 mg PO DAILY 11/28/21 [History] Cyanocobalamin (Vitamin B-12) [Vitamin B-12] 1,000 mcg PO DAILY 11/28/21 [History] Furosemide [Lasix] 40 mg PO DAILY 11/28/21 [History] LORazepam [Ativan] 0.5 mg PO HS 11/28/21 [History] Tiotropium 2.5 Mcg/Puff [Spiriva Respimat 2.5 Mcg] 2 puff INHALATION RT-DAILY 11/28/21 [History] Valsartan 40 mg PO BID 12/17/21 [History] Follow up Appointment(s)/Referral(s): Tan Bey Jr, [Primary Care Provider] - 1-2 days
--- NOTE | 2021-12-21 12:52 | P.PN ---
Subjective This is a 81-year-old male with a past medical history significant for COPD with home oxygen use, tissue mitral valve replacement and tricuspid valve repair of [facility] in 2015, non-ischemic cardiomyopathy, paroxysmal atrial fibrillation on warfarin, hypertension, AAA, COPD, former tobacco use, pulmonary hypertension and hyperlipidemia. Patient follows in the office with Dr. Kramer. We have been asked to see the patient in consultation for congestive heart failure. Patient states he presented to the hospital with complaints of worsening shortness of breath. He was recently discharged from the hospital with CHF. He states he wanted to go to Rehab and get stronger, however, he states he was too independent. He endorses difficulty doing daily activities at home and then has become more short of breath. He denies any orthopnea or PND. He denies any worsening LE edema. He states he is compliant with his medications. He does adhere to low salt diet. He denies any chest discomfort, lightheadedness, dizziness, syncope or near syncope. He is able to lay flat in bed. He was started on IV Lasix, IV steroids and antibiotics. He states that he was on Jardiance but had increased side effects to this medication. DIAGNOSTICS: * Echocardiogram 11/29/2021 revealed EF of 25-30% severe left atrial dilatation, bioprosthetic mitral valve functioning normally, repair of tricuspid valve with moderate tricuspid regurgitation, moderate aortic regurgitation 12/21/2021 Patient seen and examined at bedside, in no acute distress. He continues to have shortness of breath. States he has not had that much urine output. No complaints or acute events overnight. Labs, sodium 142, potassium 4.6, BUN 63, serum creatinine 1.1, proBNP 5680 PHYSICAL EXAM: VITAL SIGNS: Reviewed. GENERAL: Well-developed in no acute distress. HEENT: Head is normocephalic. Neck supple. No JVD LUNGS: Respirations even and unlabored. Lungs with decreased air exchanged bilateral bases HEART: Regular rate and rhythm. S1 and S2 heard. Soft systolic murmur noted. ABDOMEN: Soft. Nondistended. Nontender. EXTREMITIES: Normal range of motion. No clubbing or cyanosis. Peripheral pulses intact. 1+ bilateral lower extremity edema NEUROLOGIC: Awake and alert. Oriented x 3. ASSESSMENT: Shortness of breath Acute on chronic heart failure with reduced ejection fraction COPD exacerbation with home oxygen use Paroxysmal atrial fibrillation on coumadin Abnormal troponins, likely secondary to congestive heart failure Non-ischemic cardiomyopathy History of mitral valve replacement in 2015 History of tricuspid valve repair in 2015 History of AAA Hyperlipidemia PLAN: Recommend repeat pro BNP and Chest xray Possibly restarting IV Lasix based on above Monitor I/Os daily weights, renal function and electrolytes Coumadin restarted, monitor INR Continue statin, valsartan and bisoprolol Consider spironolactone as an outpatient Patient intolerant to Jardiance recently Further recommendations pending patient course Nurse practitioner note has been reviewed by physician. Signing provider agrees with the documented findings, assessment, and plan of care. Objective - Vital Signs Vital signs: Vital Signs Temp 98.0 F 12/21/21 04:58 Pulse 89 12/21/21 08:05 Resp 20 12/21/21 04:58 BP 118/71 12/21/21 08:05 Pulse Ox 97 12/21/21 04:58 FiO2 Intake & Output 12/20/21 12/21/21 12/21/21 18:59 06:59 18:59 Other: Voiding Method Toilet - Labs CBC & Chem 7: 12/19/21 05:51 12/21/21 04:46 Labs: Abnormal Lab Results - Last 24 Hours (Table) 12/21/21 12/21/21 Range/Units 04:46 04:46 PT 25.2 H (9.0-12.0) sec INR 2.5 H (<1.2) Chloride 94 L (98-107) mmol/L Carbon Dioxide 40 H (22-30) mmol/L BUN 63 H (9-20) mg/dL Glucose 114 H (74-99) mg/dL Microbiology - Last 24 Hours (Table) 12/17/21 08:04 Blood Culture - Preliminary Blood No Growth after 96 hours 12/17/21 08:04 Blood Culture - Preliminary Blood No Growth after 96 hours 12/17/21 14:30 Gram Stain - Final Sputum Sputum Culture - Final Escherichia coli
[2021-12-21 12:59] VITALS: BP 98/60; PULSE 92; TEMP 97.4
--- NOTE | 2021-12-21 13:15 | XR ---
EXAMINATION TYPE: XR chest 1V portable DATE OF EXAM: 12/21/2021 COMPARISON: Chest x-ray 12/17/2021 HISTORY: Shortness of breath TECHNIQUE: Single frontal view of the chest is obtained. FINDINGS: Apical bullous changes are suspected, there is lucency bilaterally similar to prior exam. P atient is post median sternotomy and cardiac valve replacement. Aorta is dense. There is persistent p rominence of the interstitium but perhaps some improvement in aeration within the lungs as compared t o prior. No evident pneumothorax or pleural effusion. The cardiac silhouette size is within normal li mits. The osseous structures are intact. IMPRESSION: There is some improvement in aeration.
--- NOTE | 2021-12-21 14:26 | P.PN ---
Subjective Patient is seen for follow-up for acute kidney injury. Patient is being diuresed Renal function has improved as blood pressures have improved. Dose of Diovan was decreased yesterday. Lasix has been changed to by mouth Serum creatinine down to 1.1 from 1.3 Patient denies any shortness of breath He has had good urine output. Objective - Vital Signs Vital signs: Vital Signs Temp 97.4 F L 12/21/21 12:57 Pulse 92 12/21/21 12:57 Resp 20 12/21/21 12:57 BP 98/60 12/21/21 12:57 Pulse Ox 97 12/21/21 04:58 FiO2 Intake & Output 12/20/21 12/21/21 12/21/21 18:59 06:59 18:59 Other: Voiding Method Toilet - Exam Awake, comfortable, not in any acute distress Examination of the heart S1 and S2 Examination of the lungs bilateral breath sounds are heard Abdomen is soft nontender Examination of lower extremities shows edema 2+ bilaterally CAR ESCORT exam grossly intact - Labs CBC & Chem 7: 12/19/21 05:51 12/21/21 04:46 Labs: Abnormal Lab Results - Last 24 Hours (Table) 12/21/21 12/21/21 Range/Units 04:46 04:46 PT 25.2 H (9.0-12.0) sec INR 2.5 H (<1.2) Chloride 94 L (98-107) mmol/L Carbon Dioxide 40 H (22-30) mmol/L BUN 63 H (9-20) mg/dL Glucose 114 H (74-99) mg/dL Microbiology - Last 24 Hours (Table) 12/17/21 08:04 Blood Culture - Preliminary Blood No Growth after 96 hours 12/17/21 08:04 Blood Culture - Preliminary Blood No Growth after 96 hours 12/17/21 14:30 Gram Stain - Final Sputum Sputum Culture - Final Escherichia coli Assessment and Plan Assessment: 1. Acute kidney injury cardiorenal and associated with low blood pressure along with diuresis 2. Volume overload 3. Acute on chronic systolic CHF 4. Cardiomyopathy with ejection fraction 25-30% 5. Moderate pulmonary hypertension 6. Metabolic alkalosis secondary to diuresis Plan: Continue Diamox for another 2-3 days Continue current dose of diuretics Can add another 40 mg of Lasix in the afternoon depending on volume status as outpatient. Repeat labs in 2-3 days post discharge Patient is clear for discharge from nephrology standpoint
[2021-12-21] MEDS ORDERED: predniSONE 5 MG TAB PO SCH (15:15)
[2021-12-21] MEDS ORDERED: WARFARIN 2 MG TAB PO ONE (18:00)
--- NOTE | 2021-12-25 11:47 | CDI ---
Documentation Clarification Form Date: 12/25/21 From: Loraine Fu Admit Date: 12/17/2021 11:30:00 AM Patient Name: Ankur Pereira Visit Number: [id number] Discharge Date: 12/21/2021 06:08:00 PM ATTENTION: The Clinical Documentation Specialists (CDI) and [facility] Coding Staff appreciate your assistance in clarifying documentation. Please respond to the clarification below the line at the bottom and electronically sign. The CDI & [facility] Coding staff will review the response and follow-up if needed. Please note: Queries are made part of the Legal Health Record. If you have any questions, please contact the author of this message via ITS. Dr. Tan Bey, Your patient has an abnormal lab value: positive for E. coli . Please clarify if there is an additional diagnosis and/or clinical significance related to this value. History/Risk Factors: HTN w acute on chronic systolic CHF & CKD III, COPD w acute exacerbation Clinical indicators: CXR 12/17: Difficult to exclude interstitial edema, correlate for volume overload, pneumonia not excluded. Emphysema. Treatment: IV Ceftriaxone & Azithromycin 500 mg Is there an additional diagnosis and/or clinical significance related to the above lab result/information? [ ] Pneumonia due to E. coli [ ] Acute bronchitis due to E. coli [ x ] No additional diagnosis/Not clinically significant [ ] Other, please specify [ ] Unable to determine MTDD
--- NOTE | 2021-12-27 06:01 | CDI ---
Documentation Clarification Form Date: 12/27/21 From: Loraine Fu Admit Date: 12/17/2021 11:30:00 AM Patient Name: Ankur Pereira Visit Number: [id number] Discharge Date: 12/21/2021 06:08:00 PM ATTENTION: The Clinical Documentation Specialists (CDI) and [facility] Coding Staff appreciate your assistance in clarifying documentation. Please respond to the clarification below the line at the bottom and electronically sign. The CDI & [facility] Coding staff will review the response and follow-up if needed. Please note: Queries are made part of the Legal Health Record. If you have any questions, please contact the author of this message via ITS. Dr. Tan Bey, Acute renal failure is documented in Dr. Nguyen 12/19 consult which may lack sufficient clinical evidence/support in the medical record. Additional clarification is requested. History/Risk Factors: HTN w acute on chronic systolic CHF CKD III, COPD w acute exacerbation Clinical Indicators: Per consult "Acute kidney injury cardiorenal and associated with low blood pressure along with diuresis" Cr: 1.08, 1.3, 1.15, 1.14 BP Rt arm 12/17, 12/18 & 12/21: 94/57, 96/59, 98/30 Treatment: Decrease Lasix, increase dose of Cozaar, check urine analysis, repeat labs in am (12/20) Please clarify if acute renal failure is a valid diagnosis? [ x] Yes, acute renal failure is present as evidence by (additional clinical support): [ ] No, acute renal failure is ruled out [ ] Other (please specify diagnosis) [ ] Unable to determine MTDD
== END 2021-12-21 18:08 | DRG 291 ==
LOC: EC 07:53 → 5NMEDONC 11:30
PROVIDERS: ADMIT Family Medicine; ATTEND Family Medicine
DX: I13.0 Hypertensive heart and chronic kidney disease with heart failure and stage 1 through stage 4 chronic kidney disease, or unspecified chronic kidney disease (principal); I50.23 Acute on chronic systolic (congestive) heart failure; J96.21 Acute and chronic respiratory failure with hypoxia; E87.3 Alkalosis; N17.9 Acute kidney failure, unspecified; J44.1 Chronic obstructive pulmonary disease with (acute) exacerbation; I27.29 Other secondary pulmonary hypertension; I42.8 Other cardiomyopathies; I73.9 Peripheral vascular disease, unspecified; J84.10 Pulmonary fibrosis, unspecified; N18.30 Chronic kidney disease, stage 3 unspecified; I48.0 Paroxysmal atrial fibrillation; Z20.822 Contact with and (suspected) exposure to COVID-19; I08.2 Rheumatic disorders of both aortic and tricuspid valves; E78.2 Mixed hyperlipidemia; N40.0 Benign prostatic hyperplasia without lower urinary tract symptoms; T50.2X5A Adverse effect of carbonic-anhydrase inhibitors, benzothiadiazides and other diuretics, initial encounter; F41.9 Anxiety disorder, unspecified; I71.40 Abdominal aortic aneurysm, without rupture, unspecified; I83.90 Asymptomatic varicose veins of unspecified lower extremity; L98.9 Disorder of the skin and subcutaneous tissue, unspecified; R77.8 Other specified abnormalities of plasma proteins; Z99.81 Dependence on supplemental oxygen; Z79.52 Long term (current) use of systemic steroids; Z79.51 Long term (current) use of inhaled steroids; Z79.01 Long term (current) use of anticoagulants; Z79.899 Other long term (current) drug therapy; Z87.891 Personal history of nicotine dependence; Z95.828 Presence of other vascular implants and grafts; Z96.89 Presence of other specified functional implants; Z95.3 Presence of xenogenic heart valve; Z88.8 Allergy status to other drugs, medicaments and biological substances; Z82.49 Family history of ischemic heart disease and other diseases of the circulatory system
CPT/HCPCS: 36415; 71045; 71046; 80048; 80053; 83605; 83880; 84484; 85025; 85610; 85730; 87040; 87070; 87077; 87186; 87205; 87502; 87635; 93005; 94640; 94760; 96365; 96375; 96376; 99285

== ENCOUNTER 2022-01-13 14:41 | Inpatient (IN) | payer MEDICARE, BC ==
--- NOTE | 2022-01-13 15:17 | ED ---
General Adult HPI - General Chief complaint: Shortness of Breath Stated complaint: MANSI Time Seen by Provider: 01/13/22 15:16 Source: patient, EMS, RN notes reviewed, old records reviewed Mode of arrival: EMS Limitations: no limitations - History of Present Illness Initial comments: Patient is an 81-year-old male with past medical history remarkable for heart failure, COPD, atrial fibrillation, chronic debility presents emergency Department complaining of weakness, intermittent shortness of breath. Please it is a COPD. States he just got out of rehab and went home and lives by himself. Has no support. Feels unsafe at home due to his weakness. He wants to be evaluated and possibly readmitted for placement. Endorses mild shortness of breath but no cough. No chest pain. No abdominal pain, nausea, vomiting. No diarrhea. No other acute complaints at this time. No history of sick contact exposure. Denies dysuria or hematuria. No other acute complaints at this time. - Related Data Home Medications Medication Instructions Recorded Confirmed LORazepam [Ativan] 1 mg PO BID 11/21/17 01/13/22 Tamsulosin [Flomax] 0.8 mg PO DAILY 11/21/17 01/13/22 Atorvastatin [Lipitor] 10 mg PO HS 07/20/21 01/13/22 Fluticasone Propion/Salmeterol 1 puff IN RT-BID 07/20/21 01/13/22 [Advair 100-50 Diskus] Levalbuterol Hfa Inhaler [Xopenex 2 puff INHALATION RT-Q4H PRN MDD 07/20/21 01/13/22 Hfa Inhaler] 4X DAILY Ascorbic Acid [Vitamin C] 1,000 mg PO DAILY 11/28/21 01/13/22 Cyanocobalamin (Vitamin B-12) 1,000 mcg PO DAILY 11/28/21 01/13/22 [Vitamin B-12] Furosemide [Lasix] 40 mg PO DAILY 11/28/21 01/13/22 Tiotropium 2.5 Mcg/Puff [Spiriva 2 puff INHALATION RT-DAILY 11/28/21 01/13/22 Respimat 2.5 Mcg] Valsartan 40 mg PO BID PRN 12/17/21 01/13/22 Ipratropium-Albuterol Nebulize 3 ml INHALATION RT-QID 01/13/22 01/13/22 [Duoneb 0.5 mg-3 mg/3 ml Soln] Warfarin Sodium [Jantoven] 2 mg PO HS 01/13/22 01/13/22 guaiFENesin [Mucinex] 600 mg PO Q12H 01/13/22 01/13/22 predniSONE 10 mg PO DAILY 01/13/22 01/13/22 Previous Rx's Medication Instructions Recorded Bisoprolol Fumarate 5 mg PO DAILY 12 Days #12 tablet 10/07/18 Allergies Allergy/AdvReac Type Severity Reaction Status Date / Time albuterol Allergy Rapid Verified 01/13/22 19:16 Heart Rate empagliflozin Allergy Dyspnea Verified 01/13/22 19:16 [From Jardiance] pain med (can't remember Allergy Hallucinati Uncoded 01/13/22 14:50 name) ons Patches on chest Allergy Swelling Uncoded 01/13/22 14:50 Review of Systems ROS Statement: Those systems with pertinent positive or pertinent negative responses have been documented in the HPI. Review of Systems: CONST: Denies fever EYES: Denies blurry vision ENT: Denies nasal congestion C/V: Denies Chest pain RESP: Endorses shortness of breath GI: Denies abdominal pain : Denies dysuria SKIN: Denies rash. MSK: Denies joint pain. NEURO: Denies headache ROS Other: All systems not noted in ROS Statement are negative. Past Medical History Past Medical History: Atrial Fibrillation, Heart Failure, COPD, GI Bleed, Hyperlipidemia, Pneumonia, Prostate Disorder, Renal Disease, Skin Disorder, Vascular Disorder Additional Past Medical History / Comment(s): GI bleed, gastritis, gastric ectasia, CKD stage III, past abdominal aortic aneurysm/had stent placed, varicosities, PVD, past shingellis and occasionally will have R flank nerve pain, BPH. History of Any Multi-Drug Resistant Organisms: None Reported Past Surgical History: Cardiac Valve Replacement, Cholecystectomy, Heart Catheterization Additional Past Surgical History / Comment(s): Stent placed for lower abd aortic aneurysym, mitral valve replacement/bicuspid repair, EGD with ablation, colono scopy, excision L cheek lesion/mass and lesion from scalp/all benign, Past Anesthesia/Blood Transfusion Reactions: No Reported Reaction Date of Last Stent Placement:: 2015 Past Psychological History: Anxiety Smoking Status: Former smoker Past Alcohol Use History: Daily Past Drug Use History: None Reported - Past Family History Mother Family Medical History: Myocardial Infarction ([place]) Additional Family Medical History / Comment(s): at a young age. Father Family Medical History: Hypertension General Exam - General Exam Comments Initial Comments: General: Appears in no acute distress. HEAD: Normal with no signs of head trauma. EYES: PERRLA, EOMI, conjunctiva normal, no discharge. ENT: Hearing grossly intact, normal oropharynx. RESPIRATORY: Normal and expiratory wheezing. No hypoxia on baseline nasal cannula oxygen. No increased work of breathing. C/V: Regular rate and rhythm. S1 and S2 auscultated. Minimal peripheral edema. Peripheral pulses 2+ intact. ABD: Abd is soft, nontender, nondistended EXT: Normal range of motion, no obvious deformity SKIN: No rashes or lesions observed on exposed skin. NEURO: Alert and oriented 4. No focal sensory strength deficits. Limitations: no limitations Course Vital Signs 01/13/22 01/13/22 01/13/22 14:42 14:45 15:17 Temperature 98.1 F Pulse Rate 65 115 H Respiratory 22 24 18 Rate Blood Pressure 140/128 116/76 O2 Sat by Pulse 97 98 Oximetry 01/13/22 01/13/22 01/13/22 16:53 17:39 18:40 Temperature Pulse Rate 71 103 H 92 Respiratory 26 H 18 18 Rate Blood Pressure 104/75 97/69 115/77 O2 Sat by Pulse 98 98 95 Oximetry 01/13/22 01/13/22 01/13/22 19:44 19:53 20:55 Temperature Pulse Rate 98 104 H 103 H Respiratory 18 Rate Blood Pressure 109/70 O2 Sat by Pulse 92 L Oximetry Medical Decision Making - Medical Decision Making Based on the patient's presentation and physical exam, I'm concerned for possible cardiopulmonary etiology for his current symptoms. Appears to be having a COPD exacerbation, but cannot rule out other etiology for weakness at this time. Therefore we will obtain broad workup. He was in agreement this plan. Likely will be admitted as he is lack of support at home is seeking placement. Vital signs within acceptable limits. He will receive a small fluid bolus, IV steroids, breathing treatments. He was in agreement with this plan. Chest x-ray as interpreted by myself revealed no acute bony traumatic process, has flattening of the diaphragms suggestive of COPD, no obvious signs of pulmonary infiltrate. Possible mild heart failure. Lavatory studies were remarkable for a chronic anemia with hemoglobin of 12.2. Patient is suprath erapeutic with his INR to 3.4. Troponin is indeterminate at 0.054 which appears to be his normal baseline. BNP is also elevated but appears to be below with typically he comes in with. Urinalysis is concerning for UTI. Covid and influenza are negative. EKG showed no signs of acute ischemia. I updated the patient. He is feeling somewhat improved but I do believe he should be admitted to the hospital at this time. He was in agreement this plan. Started on IV Rocephin for his UTI, we will continue breathing treatments as well. We will trend the troponin. Patient was in agreement this plan. I spoke with the patient's admitting physician, Dr. Bey who accepted the patient. He was admitted in stable condition. - Lab Data Result diagrams: 01/13/22 15:40 01/13/22 15:40 Lab Results 01/13/22 01/13/22 01/13/22 Range/Units 15:40 15:40 15:40 WBC 9.8 (3.8-10.6) k/uL RBC 3.83 L (4.30-5.90) m/uL Hgb 12.2 L (13.0-17.5) gm/dL Hct 36.8 L (39.0-53.0) % MCV 96.0 (80.0-100.0) fL MCH 31.9 (25.0-35.0) pg MCHC 33.2 (31.0-37.0) g/dL RDW 14.2 (11.5-15.5) % Plt Count 161 (150-450) k/uL MPV 9.0 Neutrophils % 92 % Lymphocytes % 3 % Monocytes % 3 % Eosinophils % 1 % Basophils % 0 % Neutrophils # 8.9 H (1.3-7.7) k/uL Lymphocytes # 0.3 L (1.0-4.8) k/uL Monocytes # 0.3 (0-1.0) k/uL Eosinophils # 0.1 (0-0.7) k/uL Basophils # 0.0 (0-0.2) k/uL PT 33.4 H (9.0-12.0) sec INR 3.4 H (<1.2) APTT 33.5 H (22.0-30.0) sec Sodium (137-145) mmol/L Potassium (3.5-5.1) mmol/L Chloride (98-107) mmol/L Carbon Dioxide (22-30) mmol/L Anion Gap mmol/L BUN (9-20) mg/dL Creatinine (0.66-1.25) mg/dL Est GFR (CKD-EPI)AfAm (>60 ml/min/1.73 sqM) Est GFR (CKD-EPI)NonAf (>60 ml/min/1.73 sqM) Glucose (74-99) mg/dL Plasma Lactic Acid Jonas (0.7-2.0) mmol/L Calcium (8.4-10.2) mg/dL Magnesium (1.6-2.3) mg/dL Total Bilirubin (0.2-1.3) mg/dL AST (17-59) U/L ALT (4-49) U/L Alkaline Phosphatase (38-126) U/L Troponin I (0.000-0.034) ng/mL NT-Pro-B Natriuret Pep pg/mL Total Protein (6.3-8.2) g/dL Albumin (3.5-5.0) g/dL Urine Color Yellow Urine Appearance Cloudy (Clear) Urine pH 6.5 (5.0-8.0) Ur Specific [place] 1.014 (1.001-1.035) Urine Protein Negative (Negative) Urine Glucose (UA) Negative (Negative) Urine Ketones Negative (Negative) Urine Blood Negative (Negative) Urine Nitrite Negative (Negative) Urine Bilirubin Negative (Negative) Urine Urobilinogen <2.0 (<2.0) mg/dL Ur Leukocyte Esterase Large H (Negative) Urine RBC 12 H (0-5) /hpf Urine WBC >182 H (0-5) /hpf Urine WBC Clumps Occasional H (None) /hpf Ur Squamous Epith Cells 1 (0-4) /hpf Urine Bacteria Occasional H (None) /hpf Hyaline Casts 12 H (0-2) /lpf Urine Mucus Rare H (None) /hpf Urine Yeast (Budding) Many H (None) /hpf Coronavirus (PCR) (Not Detectd) Influenza Type A RNA (Not Detectd) Influenza Type B (PCR) (Not Detectd) 01/13/22 01/13/22 01/13/22 Range/Units 15:40 15:40 15:40 WBC (3.8-10.6) k/uL RBC (4.30-5.90) m/uL Hgb (13.0-17.5) gm/dL Hct (39.0-53.0) % MCV (80.0-100.0) fL MCH (25.0-35.0) pg MCHC (31.0-37.0) g/dL RDW (11.5-15.5) % Plt Count (150-450) k/uL MPV Neutrophils % % Lymphocytes % % Monocytes % % Eosinophils % % Basophils % % Neutrophils # (1.3-7.7) k/uL Lymphocytes # (1.0-4.8) k/uL Monocytes # (0-1.0) k/uL Eosinophils # (0-0.7) k/uL Basophils # (0-0.2) k/uL PT (9.0-12.0) sec INR (<1.2) APTT (22.0-30.0) sec Sodium 135 L (137-145) mmol/L Potassium 3.9 (3.5-5.1) mmol/L Chloride 97 L (98-107) mmol/L Carbon Dioxide 33 H (22-30) mmol/L Anion Gap 5 mmol/L BUN 45 H (9-20) mg/dL Creatinine 1.07 (0.66-1.25) mg/dL Est GFR (CKD-EPI)AfAm 76 (>60 ml/min/1.73 sqM) Est GFR (CKD-EPI)NonAf 66 (>60 ml/min/1.73 sqM) Glucose 123 H (74-99) mg/dL Plasma Lactic Acid Jonas 1.3 (0.7-2.0) mmol/L Calcium 8.7 (8.4-10.2) mg/dL Magnesium 2.0 (1.6-2.3) mg/dL Total Bilirubin 0.6 (0.2-1.3) mg/dL AST 29 (17-59) U/L ALT 31 (4-49) U/L Alkaline Phosphatase 90 (38-126) U/L Troponin I 0.054 H* (0.000-0.034) ng/mL NT-Pro-B Natriuret Pep pg/mL Total Protein 6.0 L (6.3-8.2) g/dL Albumin 3.4 L (3.5-5.0) g/dL Urine Color Urine Appearance (Clear) Urine pH (5.0-8.0) Ur Specific [place] (1.001-1.035) Urine Protein (Negative) Urine Glucose (UA) (Negative) Urine Ketones (Negative) Urine Blood (Negative) Urine Nitrite (Negative) Urine Bilirubin (Negative) Urine Urobilinogen (<2.0) mg/dL Ur Leukocyte Esterase (Negative) Urine RBC (0-5) /hpf Urine WBC (0-5) /hpf Urine WBC Clumps (None) /hpf Ur Squamous Epith Cells (0-4) /hpf Urine Bacteria (None) /hpf Hyaline Casts (0-2) /lpf Urine Mucus (None) /hpf Urine Yeast (Budding) (None) /hpf Coronavirus (PCR) (Not Detectd) Influenza Type A RNA (Not Detectd) Influenza Type B (PCR) (Not Detectd) 01/13/22 01/13/22 01/13/22 Range/Units 15:40 15:40 15:40 WBC (3.8-10.6) k/uL RBC (4.30-5.90) m/uL Hgb (13.0-17.5) gm/dL Hct (39.0-53.0) % MCV (80.0-100.0) fL MCH (25.0-35.0) pg MCHC (31.0-37.0) g/dL RDW (11.5-15.5) % Plt Count (150-450) k/uL MPV Neutrophils % % Lymphocytes % % Monocytes % % Eosinophils % % Basophils % % Neutrophils # (1.3-7.7) k/uL Lymphocytes # (1.0-4.8) k/uL Monocytes # (0-1.0) k/uL Eosinophils # (0-0.7) k/uL Basophils # (0-0.2) k/uL PT (9.0-12.0) sec INR (<1.2) APTT (22.0-30.0) sec Sodium (137-145) mmol/L Potassium (3.5-5.1) mmol/L Chloride (98-107) mmol/L Carbon Dioxide (22-30) mmol/L Anion Gap mmol/L BUN (9-20) mg/dL Creatinine (0.66-1.25) mg/dL Est GFR (CKD-EPI)AfAm (>60 ml/min/1.73 sqM) Est GFR (CKD-EPI)NonAf (>60 ml/min/1.73 sqM) Glucose (74-99) mg/dL Plasma Lactic Acid Jonas (0.7-2.0) mmol/L Calcium (8.4-10.2) mg/dL Magnesium (1.6-2.3) mg/dL Total Bilirubin (0.2-1.3) mg/dL AST (17-59) U/L ALT (4-49) U/L Alkaline Phosphatase (38-126) U/L Troponin I (0.000-0.034) ng/mL NT-Pro-B Natriuret Pep 4750 pg/mL Total Protein (6.3-8.2) g/dL Albumin (3.5-5.0) g/dL Urine Color Urine Appearance (Clear) Urine pH (5.0-8.0) Ur Specific [place] (1.001-1.035) Urine Protein (Negative) Urine Glucose (UA) (Negative) Urine Ketones (Negative) Urine Blood (Negative) Urine Nitrite (Negative) Urine Bilirubin (Negative) Urine Urobilinogen (<2.0) mg/dL Ur Leukocyte Esterase (Negative) Urine RBC (0-5) /hpf Urine WBC (0-5) /hpf Urine WBC Clumps (None) /hpf Ur Squamous Epith Cells (0-4) /hpf Urine Bacteria (None) /hpf Hyaline Casts (0-2) /lpf Urine Mucus (None) /hpf Urine Yeast (Budding) (None) /hpf Coronavirus (PCR) Not Detected (Not Detectd) Influenza Type A RNA Not Detected (Not Detectd) Influenza Type B (PCR) Not Detected (Not Detectd) - EKG Data -: EKG Interpreted by Me EKG Comments: 12-lead Electrocardiogram Interpretation Note EKG was reviewed and interpreted by myself. 12-lead ECG performed at 2107 is interpreted by me as revealing atrial fibrillation at a rate of 114 beats per minute. [place] is normal. QRS durations 136 ms, QTc is 427 ms.. There were no ST or T wave abnormalities to suggest myocardial ischemia or injury. R wave progression across the precordium was satisfactory. By my interpretation this EKG is non-diagnostic for acute ischemia. Patient's tachycardia is intermittently as he left heart rate below 100 mostly. The RVR is not consistent. We'll continue to monitor. When compared with prior EKGs from December 2021, no significant change. Disposition Clinical Impression: UTI (urinary tract infection), COPD exacerbation, Debility, Weakness Disposition: ADMITTED IP TO THIS HOSP Condition: Stable Is patient prescribed a controlled substance at d/c from ED?: No Time of Disposition: 17:30
[2022-01-13] MEDS ORDERED: SODIUM CHLORIDE 0.9% 500 ML 500 ML IV STA (15:26)
[2022-01-13 16:10] LABS: Basophils % (A) 0 %; Eosinophils # (A) 0.1 k/uL (0-0.7); Eosinophils % (A) 1 %; HCT 36.8 % (39.0-53.0); HGB 12.2 gm/dL (13.0-17.5); Lymphocytes # (A) 0.3 k/uL (1.0-4.8); Lymphocytes % (A) 3 %; MCH 31.9 pg (25.0-35.0); MCHC 33.2 g/dL (31.0-37.0); Monocytes # (A) 0.3 k/uL (0-1.0); Monocytes % (A) 3 %; Neutrophils # (A) 8.9 k/uL (1.3-7.7); Neutrophils % (A) 92 %; Platelet Count 161 k/uL (150-450); RBC 3.83 m/uL (4.30-5.90); RDW 14.2 % (11.5-15.5); WBC 9.8 k/uL (3.8-10.6)
--- NOTE | 2022-01-13 16:16 | XR ---
EXAMINATION TYPE: XR chest 2V DATE OF EXAM: 01/13/2022 COMPARISON: 12/21/2021 HISTORY: Weakness TECHNIQUE: FINDINGS: There is some mild pulmonary interstitial edema. There is mild pulmonary hyperinflation and flattening of the diaphragm. There is slight blunting of the costophrenic angles. Heart size is norm al. There is cardiac valve surgery. IMPRESSION: COPD and mild pulmonary interstitial edema. There is some pleural reaction and atelectasi s at the lung bases which is increased compared to old exam. No definite heart failure.
[2022-01-13 16:18] LABS: INR 3.4 (<1.2); Partial Thromboplastin Time 33.5 sec (22.0-30.0); Prothrombin Time 33.4 sec (9.0-12.0)
[2022-01-13 16:20] LABS: Albumin 3.4 g/dL (3.5-5.0); Calcium 8.7 mg/dL (8.4-10.2); Potassium 3.9 mmol/L (3.5-5.1); Total Bilirubin 0.6 mg/dL (0.2-1.3)
[2022-01-13 17:08] LABS: Appearance,Urine Cloudy (Clear); Bacteria,Urine Occasional /hpf; Bilirubin,Urine Negative (Negative); Blood,Urine Negative (Negative); Budding Yeast,Urine Many /hpf; Color,Urine Yellow; Glucose,Urine (UA) Negative (Negative); Hyaline Casts,Urine 12 /lpf (0-2); Ketones,Urine Negative (Negative); Leukocyte Esterase,Urine Large (Negative); Mucus,Urine Rare /hpf; Nitrite,Urine Negative (Negative); PH, Urine 6.5 (5.0-8.0); Protein,Urine Negative (Negative); RBC,Urine 12 /hpf (0-5); Specific Gravity,Urine 1.014 (1.001-1.035); Squamous Epithelial Cell,Urine 1 /hpf (0-4); Urobilinogen,Urine <2.0 mg/dL (<2.0); WBC,Urine >182 /hpf (0-5)
[2022-01-13] MEDS ORDERED: methylPREDNISolone SOD SUCCI 40 MG/ML 1 ML VIAL IV STA (18:09)
[2022-01-13] MEDS ORDERED: IPRATROPIUM-ALBUTEROL 3 ML NEB INHALATION STA (18:09)
[2022-01-13] MEDS ORDERED: NALOXONE 0.4 MG/ML 1 ML VIAL IV PRN (18:10)
[2022-01-13] MEDS: IPRATROPIUM-ALBUTEROL 3 ML NEB INHALATION SCH ×2 (19:44→22:59)
[2022-01-13] MEDS: methylPREDNISolone SOD SUCCI 40 MG/ML 1 ML VIAL IV SCH (20:52)
[2022-01-13] MEDS ORDERED: WARFARIN 0.5 MG TAB PO SCH (21:00)
[2022-01-13] MEDS ORDERED: VALSARTAN 40 MG TAB PO PRN (21:00)
[2022-01-13] MEDS: ATORVASTATIN 10 MG TAB PO SCH (21:28)
[2022-01-14] MEDS: LORazepam 1 MG TAB PO PRN ×3 (00:20→21:03)
[2022-01-14] MEDS: TAMSULOSIN 0.4 MG CAP.ER.24H PO SCH ×2 (00:21→10:00)
[2022-01-14] MEDS ORDERED: IPRATROPIUM-ALBUTEROL 3 ML NEB INHALATION STA (01:58)
[2022-01-14] MEDS: IPRATROPIUM-ALBUTEROL 3 ML NEB INHALATION SCH ×8 (03:23→23:14)
[2022-01-14] MEDS: SYMBICORT 80-4.5 MCG INHALER INHALATION SCH ×2 (07:13→20:16)
[2022-01-14 09:05] LABS: Basophils % (A) 0 %; Eosinophils % (A) 0 %; HCT 34.6 % (39.0-53.0); HGB 11.1 gm/dL (13.0-17.5); Lymphocytes # (A) 0.3 k/uL (1.0-4.8); Lymphocytes % (A) 5 %; MCHC 32.2 g/dL (31.0-37.0); MCV 96.3 fL (80.0-100.0); Mean Platelet Volume 9.2; Monocytes # (A) 0.1 k/uL (0-1.0); Monocytes % (A) 2 %; Neutrophils % (A) 92 %; Platelet Count 148 k/uL (150-450); RBC 3.59 m/uL (4.30-5.90); RDW 14.6 % (11.5-15.5); WBC 5.5 k/uL (3.8-10.6)
[2022-01-14 09:27] LABS: Calcium 8.2 mg/dL (8.4-10.2); Potassium 4.5 mmol/L (3.5-5.1)
[2022-01-14 09:37] LABS: INR 2.8 (<1.2); Prothrombin Time 28.1 sec (9.0-12.0)
[2022-01-14] MEDS: FUROSEMIDE 40 MG TAB PO SCH (10:00)
[2022-01-14] MEDS: methylPREDNISolone SOD SUCCI 40 MG/ML 1 ML VIAL IV SCH ×2 (10:00→20:29)
[2022-01-14] MEDS: BISOPROLOL 5 MG TAB PO SCH (10:09)
[2022-01-14] MEDS ORDERED: NON FORMULARY DRUG (Levalbuterol Hfa Inhaler 200 PUFF/9 GM Gm) INHALATION PRN (12:30)
--- NOTE | 2022-01-14 12:30 | P.HPIM ---
History of Present Illness H&P Date: 01/14/22 Chief Complaint: Shortness of breath Mr. Pereira is an 81-year-old male patient well-known to my practice, past medical history remarkable for heart failure COPD atrial fibrillation chronic debility pulmonary hypertension has been admitted several times in the last 3 months with acute exacerbation of COPD and heart failure. This gentleman lives by himself and his debility is is making it more difficult for him to recover and subsequently take care of himself. He is currently being admitted because is a afraid to be by himself, he is currently O2 dependent steroid- dependent COPD and heart failure, he feels unsafe at home by himself due to his weakness. Considerations for assisted living placement would be probably best. Currently complains of mild to moderate shortness of breath but no cough no chest pain and no abdominal pain no nausea no vomiting no diarrhea no other acute complaints at this time and no current history of flu, covid 19, infectious disease related or other exposures. Review of Systems Constitutional: Reports fatigue, Reports malaise, Reports weakness Ears, nose, mouth and throat: Reports as per HPI Cardiovascular: Reports decreased exercise tolerance, Reports dyspnea on exertion, Reports high blood pressure, Reports irregular heart beat, Reports shortness of breath Respiratory: Reports dyspnea, Reports home oxygen, Reports wheezing (History of chronic obstructive pulmonary disease with Janumet 2-3 pack a day smoker for many years quit smoking approximately 16 years ago) Gastrointestinal: Reports as per HPI Genitourinary: Reports as per HPI Musculoskeletal: Reports as per HPI Integumentary: Reports as per HPI Neurological: Reports as per HPI Psychiatric: Reports as per HPI Endocrine: Reports as per HPI Hematologic/Lymphatic: Reports as per HPI Allergic/Immunologic: Reports as per HPI Past Medical History Past Medical History: Atrial Fibrillation, Heart Failure, COPD, GI Bleed, Hyperlipidemia, Pneumonia, Prostate Disorder, Renal Disease, Skin Disorder, Vascular Disorder Additional Past Medical History / Comment(s): GI bleed, gastritis, gastric ectasia, CKD stage III, past abdominal aortic aneurysm/had stent placed, varicosities, PVD, past shingellis and occasionally will have R flank nerve pain, BPH. History of Any Multi-Drug Resistant Organisms: None Reported Past Surgical History: Cardiac Valve Replacement, Cholecystectomy, Heart Catheterization Additional Past Surgical History / Comment(s): Stent placed for lower abd aortic aneurysym, mitral valve replacement/bicuspid repair, EGD with ablation, colonoscopy, excision L cheek lesion/mass and lesion from scalp/all benign, Past Anesthesia/Blood Transfusion Reactions: No Reported Reaction Date of Last Stent Placement:: 2015 Past Psychological History: Anxiety Smoking Status: Former smoker Past Alcohol Use History: Daily Past Drug Use History: None Reported - Past Family History Mother Family Medical History: Myocardial Infarction ([place]) Additional Family Medical History / Comment(s): at a young age. Father Family Medical History: Hypertension Medications and Allergies Home Medications Medication Instructions Recorded Confirmed Type LORazepam [Ativan] 1 mg PO BID 11/21/17 01/13/22 History Tamsulosin [Flomax] 0.8 mg PO DAILY 11/21/17 01/13/22 History Bisoprolol Fumarate 5 mg PO DAILY 12 Days #12 tablet 10/07/18 01/13/22 Rx Atorvastatin [Lipitor] 10 mg PO HS 07/20/21 01/13/22 History Fluticasone Propion/Salmeterol 1 puff IN RT-BID 07/20/21 01/13/22 History [Advair 100-50 Diskus] Levalbuterol Hfa Inhaler [Xopenex 2 puff INHALATION RT-Q4H PRN MDD 07/20/21 01/13/22 History Hfa Inhaler] 4X DAILY Ascorbic Acid [Vitamin C] 1,000 mg PO DAILY 11/28/21 01/13/22 History Cyanocobalamin (Vitamin B-12) 1,000 mcg PO DAILY 11/28/21 01/13/22 History [Vitamin B-12] Furosemide [Lasix] 40 mg PO DAILY 11/28/21 01/13/22 History Tiotropium 2.5 Mcg/Puff [Spiriva 2 puff INHALATION RT-DAILY 11/28/21 01/13/22 History Respimat 2.5 Mcg] Valsartan 40 mg PO BID PRN 12/17/21 01/13/22 History Ipratropium-Albuterol Nebulize 3 ml INHALATION RT-QID 01/13/22 01/13/22 History [Duoneb 0.5 mg-3 mg/3 ml Soln] Warfarin Sodium [Jantoven] 2 mg PO HS 01/13/22 01/13/22 History guaiFENesin [Mucinex] 600 mg PO Q12H 01/13/22 01/13/22 History predniSONE 10 mg PO DAILY 01/13/22 01/13/22 History Allergies Allergy/AdvReac Type Severity Reaction Status Date / Time albuterol Allergy Rapid Verified 01/13/22 19:16 Heart Rate empagliflozin Allergy Dyspnea Verified 01/13/22 19:16 [From Jardiance] pain med (can't remember Allergy Hallucinati Uncoded 01/13/22 14:50 name) ons Patches on chest Allergy Swelling Uncoded 01/13/22 14:50 Physical Exam Osteopathic Statement: *. No significant issues noted on an osteopathic st ructural exam other than those noted in the History and Physical/Consult. Vitals: Vital Signs Temp Pulse Pulse Resp BP BP Pulse Ox 01/14/22 11:22 97.2 F L 96 20 113/57 100 01/14/22 11:17 101 H 01/14/22 11:06 90 01/14/22 08:00 98.0 F 98 22 97/66 99 01/14/22 07:26 96 01/14/22 07:13 92 01/14/22 06:34 98.4 F 92 18 98/52 95 01/14/22 05:00 80 17 100/55 96 01/14/22 02:11 117 H 01/14/22 02:03 114 H 01/13/22 23:07 122 H 01/13/22 22:59 117 H 01/13/22 22:40 97.6 F 111 H 20 98/79 92 L 01/13/22 20:55 103 H 18 109/70 92 L 01/13/22 19:53 104 H 01/13/22 19:44 98 01/13/22 18:40 92 18 115/77 95 01/13/22 17:39 103 H 18 97/69 98 01/13/22 16:53 71 26 H 104/75 98 01/13/22 15:17 115 H 18 116/76 98 01/13/22 14:45 24 01/13/22 14:42 98.1 F 65 22 140/128 97 Intake and Output 01/13/22 01/14/22 01/14/22 22:59 06:59 14:59 Other: Voiding Method Toilet Weight 61.235 kg General: [Patient awake, alert and oriented times 3. Patient in no acute distress.] Patient mildly cachectic, home O2 per nasal cannula HEENT: [PERRL. EOMI. No pharyngeal erythema or exudate.] Neck: [No adenopathy.] Cardiac: [Heart irregularly irregular, grade 3 systolic ejection murmur Lungs: [Diminished breath sounds bilaterally with scattered wheezes Abdomen: [No mass. No organomegaly. Bowel sounds presnt and normoactive in all 4 quadrants.] Extremes: [No edema no cyanosis no claudication normal pulses] : Normal male genitalia Musculoskeletal: [No joint erythema, edema or tenderness.] Skin: [No rash.] Neurologic: [No lateralizing deficits. CN II - XII grossly intact.] Lymphatic: [No adenopathy.] Results CBC & Chem 7: 01/14/22 08:50 01/14/22 08:50 Labs: Abnormal Lab Results - Last 24 Hours (Table) 01/13/22 01/13/22 01/13/22 Range/Units 15:40 15:40 15:40 RBC 3.83 L (4.30-5.90) m/uL Hgb 12.2 L (13.0-17.5) gm/dL Hct 36.8 L (39.0-53.0) % Plt Count (150-450) k/uL Neutrophils # 8.9 H (1.3-7.7) k/uL Lymphocytes # 0.3 L (1.0-4.8) k/uL PT 33.4 H (9.0-12.0) sec INR 3.4 H (<1.2) APTT 33.5 H (22.0-30.0) sec Sodium (137-145) mmol/L Chloride (98-107) mmol/L Carbon Dioxide (22-30) mmol/L BUN (9-20) mg/dL Glucose (74-99) mg/dL Calcium (8.4-10.2) mg/dL Troponin I (0.000-0.034) ng/mL Total Protein (6.3-8.2) g/dL Albumin (3.5-5.0) g/dL Ur Leukocyte Esterase Large H (Negative) Urine RBC 12 H (0-5) /hpf Urine WBC >182 H (0-5) /hpf Urine WBC Clumps Occasional H (None) /hpf Urine Bacteria Occasional H (None) /hpf Hyaline Casts 12 H (0-2) /lpf Urine Mucus Rare H (None) /hpf Urine Yeast (Budding) Many H (None) /hpf 01/13/22 01/13/22 01/13/22 Range/Units 15:40 15:40 22:38 RBC (4.30-5.90) m/uL Hgb (13.0-17.5) gm/dL Hct (39.0-53.0) % Plt Count (150-450) k/uL Neutrophils # (1.3-7.7) k/uL Lymphocytes # (1.0-4.8) k/uL PT (9.0-12.0) sec INR (<1.2) APTT (22.0-30.0) sec Sodium 135 L (137-145) mmol/L Chloride 97 L (98-107) mmol/L Carbon Dioxide 33 H (22-30) mmol/L BUN 45 H (9-20) mg/dL Glucose 123 H (74-99) mg/dL Calcium (8.4-10.2) mg/dL Troponin I 0.054 H* 0.050 H* (0.000-0.034) ng/mL Total Protein 6.0 L (6.3-8.2) g/dL Albumin 3.4 L (3.5-5.0) g/dL Ur Leukocyte Esterase (Negative) Urine RBC (0-5) /hpf Urine WBC (0-5) /hpf Urine WBC Clumps (None) /hpf Urine Bacteria (None) /hpf Hyaline Casts (0-2) /lpf Urine Mucus (None) /hpf Urine Yeast (Budding) (None) /hpf 01/14/22 01/14/22 01/14/22 Range/Units 01:25 08:50 08:50 RBC 3.59 L (4.30-5.90) m/uL Hgb 11.1 L (13.0-17.5) gm/dL Hct 34.6 L (39.0-53.0) % Plt Count 148 L (150-450) k/uL Neutrophils # (1.3-7.7) k/uL Lymphocytes # 0.3 L (1.0-4.8) k/uL PT (9.0-12.0) sec INR (<1.2) APTT (22.0-30.0) sec Sodium (137-145) mmol/L Chloride (98-107) mmol/L Carbon Dioxide 32 H (22-30) mmol/L BUN 47 H (9-20) mg/dL Glucose 120 H (74-99) mg/dL Calcium 8.2 L (8.4-10.2) mg/dL Troponin I 0.044 H* (0.000-0.034) ng/mL Total Protein (6.3-8.2) g/dL Albumin (3.5-5.0) g/dL Ur Leukocyte Esterase (Negative) Urine RBC (0-5) /hpf Urine WBC (0-5) /hpf Urine WBC Clumps (None) /hpf Urine Bacteria (None) /hpf Hyaline Casts (0-2) /lpf Urine Mucus (None) /hpf Urine Yeast (Budding) (None) /hpf 01/14/22 Range/Units 08:50 RBC (4.30-5.90) m/uL Hgb (13.0-17.5) gm/dL Hct (39.0-53.0) % Plt Count (150-450) k/uL Neutrophils # (1.3-7.7) k/uL Lymphocytes # (1.0-4.8) k/uL PT 28.1 H (9.0-12.0) sec INR 2.8 H (<1.2) APTT (22.0-30.0) sec Sodium (137-145) mmol/L Chloride (98-107) mmol/L Carbon Dioxide (22-30) mmol/L BUN (9-20) mg/dL Glucose (74-99) mg/dL Calcium (8.4-10.2) mg/dL Troponin I (0.000-0.034) ng/mL Total Protein (6.3-8.2) g/dL Albumin (3.5-5.0) g/dL Ur Leukocyte Esterase (Negative) Urine RBC (0-5) /hpf Urine WBC (0-5) /hpf Urine WBC Clumps (None) /hpf Urine Bacteria (None) /hpf Hyaline Casts (0-2) /lpf Urine Mucus (None) /hpf Urine Yeast (Budding) (None) /hpf Microbiology - Last 24 Hours (Table) 01/13/22 15:40 Urine Culture - Preliminary Urine,Clean Catch Thrombosis Risk Factor Assmnt - DVT/VTE Prophylaxis DVT/VTE Prophylaxis: Pharmacologic Prophylaxis ordered (Patient currently on Coumadin) - Choose All That Apply Any of the Below Risk Factors Present?: No Other Risk Factors: No Each Risk Factor Represents 3 Points: Age 75 years or older Other congenital or acquired thrombophilia - If yes, enter type in comment: No Thrombosis Risk Factor Assessment Total Risk Factor Score: 3 Thrombosis Risk Factor Assessment Level: Very Low Risk Assessment and Plan (1) COPD exacerbation Current Visit: Yes Status: Acute Code(s): J44.1 - CHRONIC OBSTRUCTIVE PULMONARY DISEASE W (ACUTE) EXACERBATION SNOMED Code(s): 558241385 (2) Debility Current Visit: Yes Status: Acute Code(s): R53.81 - OTHER MALAISE SNOMED Code(s): 56392372 (3) UTI (urinary tract infection) Current Visit: Yes Status: Acute Code(s): N39.0 - URINARY TRACT INFECTION, SITE NOT SPECIFIED SNOMED Code(s): 53644808 (4) Weakness Current Visit: Yes Status: Acute Code(s): R53.1 - WEAKNESS SNOMED Code(s): 25434431 (5) Acute and chronic respiratory failure with hypoxia Current Visit: No Status: Acute Code(s): J96.21 - ACUTE AND CHRONIC RESPIRATORY FAILURE WITH HYPOXIA SNOMED Code(s): 84918317 (6) COPD (chronic obstructive pulmonary disease) Current Visit: No Status: Acute Code(s): J44.9 - CHRONIC OBSTRUCTIVE PULMONARY DISEASE, UNSPECIFIED SNOMED Code(s): 88211450 (7) Elevated troponin Current Visit: No Status: Acute Code(s): R77.8 - OTHER SPECIFIED ABNORMALITIES OF PLASMA PROTEINS SNOMED Code(s): 048408714 (8) Essential (primary) hypertension Current Visit: No Status: Acute Code(s): I10 - ESSENTIAL (PRIMARY) HYPERTENSION SNOMED Code(s): 41285088 (9) H/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 Current Visit: No Status: Acute Code(s): Z95.3 - PRESENCE OF XENOGENIC HEART VALVE SNOMED Code(s): 675844182 (10) prison current use of anticoagulant therapy Current Visit: No Status: Acute Code(s): Z79.01 - FDC (CURRENT) USE OF ANTICOAGULANTS SNOMED Code(s): 215122017 Plan: Acute exacerbation of chronic COPD Chronic A. fib rate controlled 114 bpm which is fast, inconsistent RVR Mild renal involvement with slightly diminished GFR around 54 Glucose slightly elevated No evidence of sepsis Chronically elevated troponins probably secondary to pulmonary and renal Mildly elevated BNP 4750 Urinary tract infection Increased debility and limited support system anticipate assisted living placement Time with Patient: Greater than 30
[2022-01-14] MEDS: guaiFENesin 600 MG TABLET.ER PO SCH ×2 (13:57→20:28)
[2022-01-14] MEDS: ATORVASTATIN 10 MG TAB PO SCH (20:28)
[2022-01-14] MEDS: WARFARIN 2 MG TAB PO SCH (20:28)
[2022-01-15] MEDS: IPRATROPIUM-ALBUTEROL 3 ML NEB INHALATION SCH ×5 (03:41→21:06)
[2022-01-15] MEDS: SYMBICORT 80-4.5 MCG INHALER INHALATION SCH ×2 (07:55→20:58)
[2022-01-15] MEDS: TAMSULOSIN 0.4 MG CAP.ER.24H PO SCH (09:22)
[2022-01-15] MEDS: LORazepam 1 MG TAB PO PRN ×2 (09:23→23:28)
[2022-01-15] MEDS: guaiFENesin 600 MG TABLET.ER PO SCH ×2 (09:23→21:22)
[2022-01-15] MEDS: FUROSEMIDE 40 MG TAB PO SCH ×2 (09:23→09:42)
[2022-01-15] MEDS: CYANOCOBALAMIN 500 MCG TAB PO SCH (09:23)
[2022-01-15] MEDS: ASCORBIC ACID 500 MG TAB PO SCH (09:23)
[2022-01-15] MEDS: methylPREDNISolone SOD SUCCI 40 MG/ML 1 ML VIAL IV SCH (09:24)
[2022-01-15] MEDS: BISOPROLOL 5 MG TAB PO SCH (09:26)
[2022-01-15] MEDS ORDERED: FUROSEMIDE 10 MG/ML 4 ML VIAL IV STA (09:29)
[2022-01-15] MEDS ORDERED: IPRATROPIUM-ALBUTEROL 3 ML NEB INHALATION STA (09:31)
[2022-01-15 09:39] LABS: INR 2.8 (<1.2); Prothrombin Time 27.8 sec (9.0-12.0)
[2022-01-15] MEDS ORDERED: IPRATROPIUM-ALBUTEROL 3 ML NEB INHALATION PRN (09:54)
[2022-01-15] MEDS ORDERED: DEXTROSE 50% SYRINGE 50 ML IVP PRN ×2 (09:59)
[2022-01-15] MEDS ORDERED: METOPROLOL TARTRATE 25 MG TAB PO SCH (10:45)
[2022-01-15] MEDS ORDERED: LORazepam 0.5 MG TAB PO STA (11:03)
--- NOTE | 2022-01-15 11:42 | P.CRDCN ---
History of Present Illness Consult date: 01/15/22 History of present illness: HISTORY OF PRESENT ILLNESS: This is a 81-year-old male with a past medical history significant for COPD with home oxygen use, tissue mitral valve replacement and tricuspid valve repair at [facility] in 2014, nonischemic myopathy, paroxysmal atrial fibrillation on Coumadin, hypertension, AAA, former nicotine dependence, pulmonary hypertension, and hyperlipidemia. Patient follows in the office with Dr. Kramer. We have been asked to see the patient in consultation for CHF. Patient examined at the bedside. Patient is admitted to the hospital secondary to acute exacerbation of COPD. Patient reports shortness of breath this morning. Tachypnea present of examination. He denies any chest pain or pressure. Denies any dizziness or lightheadedness. Blood pressure is stable with a recent reading of 120/65. Telemetry reveals atrial for relation with uncontrolled heart rates in the 120s. There is a hospice consult pending. * EKG reveals atrial fibrillation with mild RVR. Heart rate 114. * Chest xray COPD and mild pulmonary interstitial edema. There is some pleural reaction and atelectasis at the lung bases which is increased compared to old exam. No definite heart failure. * Laboratory data: WBC 5.5. Hemoglobin 11.1. Platelet count 148. INR 2.8. Sodium 139. Potassium 4.5. BUN 47. Creatinine 1.25. Troponin 0.054. 0.050. 0.044. ProBNP 4750. * Current home cardiac medications include Lipitor 10 mg at night, Lasix 40 mg daily, valsartan 40 mg twice a day as needed, warfarin 2 mg at night, Bisopro lol 5mg daily * Most recent echocardiogram obtained in November 2021 revealing ejection fraction 25-30%, outer aortic regurgitation, moderate tricuspid regurgitation, status post tricuspid valve repair, bioprosthetic mitral valve REVIEW OF SYSTEMS: At the time of my exam: CONSTITUTIONAL: Denies fever or chills. HEENT: Denies blurred vision, vision changes, or eye pain. Denies hemoptysis CARDIOVASCULAR: Denies chest pain. Denies orthopnea. Denies PND. Denies pal pitations RESPIRATORY: Denies shortness of breath. GASTROINTESTINAL: Denies abdominal pain. Denies nausea or vomiting. HEMATOLOGIC: Denies bleeding disorders. GENITOURINARY: Denies any blood in urine. SKIN: Denies pruitis. Denies rash. PHYSICAL EXAM: VITAL SIGNS: Reviewed. GENERAL: Well-developed in no acute distress. HEENT: Head is normocephalic. Pupils are equal, round. Sclerae anicteric. Mucous membranes of the mouth are moist. Neck supple. No JVD or thyromegaly LUNGS: Respirations even and unlabored. Severely decreased air exchange bilaterally HEART: Tachycardic. Irregular rate and rhythm. S1 and S2 heard. Systolic murmur noted ABDOMEN: Soft. Nondistended. Nontender. EXTREMITIES: Normal range of motion. No clubbing or cyanosis. Peripheral pulses intact. No lower extremity edema NEUROLOGIC: Awake and alert. Oriented x 3. ASSESSMENT: Acute COPD exacerbation Acute on chronic heart failure with reduced ejection fraction History of COPD with home oxygen use Paroxysmal atrial fibrillation, anticoagulated with warfarin Abnormal troponins, flat, not suggestive of acute coronary syndrome History of nonischemic cardiomyopathy History of mitral valve replacement, 2014 History of tricuspid valve repair, 2014 History of AAA Hyperlipidemia PLAN: No need to repeat echocardiogram as this was performed in November 2021 Increase IV Lasix to 40 mg every 12 hours Change beta bebo to metoprolol tartrate 25 mg 3 times a day Continue telemetry monitoring Continue to monitor blood pressures Further recommendations pending patient's course Nurse practitioner note has been reviewed by physician. Signing provider agrees with the documented findings, assessment, and plan of care. Past Medical History Past Medical History: Atrial Fibrillation, Heart Failure, COPD, GI Bleed, Hyperlipidemia, Pneumonia, Prostate Disorder, Renal Disease, Skin Disorder, Vascular Disorder Additional Past Medical History / Comment(s): GI bleed, gastritis, gastric ectasia, CKD stage III, past abdominal aortic aneurysm/had stent placed, va ricosities, PVD, past shingellis and occasionally will have R flank nerve pain, BPH. History of Any Multi-Drug Resistant Organisms: None Reported Past Surgical History: Cardiac Valve Replacement, Cholecystectomy, Heart Catheterization Additional Past Surgical History / Comment(s): Stent placed for lower abd aortic aneurysym, mitral valve replacement/bicuspid repair, EGD with ablation, colonoscopy, excision L cheek lesion/mass and lesion from scalp/all benign, Past Anesthesia/Blood Transfusion Reactions: No Reported Reaction Date of Last Stent Placement:: 2015 Past Psychological History: Anxiety Smoking Status: Former smoker Past Alcohol Use History: Daily Past Drug Use History: None Reported - Past Family History Mother Family Medical History: Myocardial Infarction ([place]) Additional Family Medical History / Comment(s): at a young age. Father Family Medical History: Hypertension Medications and Allergies Home Medications Medication Instructions Recorded Confirmed Type LORazepam [Ativan] 1 mg PO BID 11/21/17 01/13/22 History Tamsulosin [Flomax] 0.8 mg PO DAILY 11/21/17 01/13/22 History Bisoprolol Fumarate 5 mg PO DAILY 12 Days #12 tablet 10/07/18 01/13/22 Rx Atorvastatin [Lipitor] 10 mg PO HS 07/20/21 01/13/22 History Fluticasone Propion/Salmeterol 1 puff IN RT-BID 07/20/21 01/13/22 History [Advair 100-50 Diskus] Levalbuterol Hfa Inhaler [Xopenex 2 puff INHALATION RT-Q4H PRN MDD 07/20/21 01/13/22 History Hfa Inhaler] 4X DAILY Ascorbic Acid [Vitamin C] 1,000 mg PO DAILY 11/28/21 01/13/22 History Cyanocobalamin (Vitamin B-12) 1,000 mcg PO DAILY 11/28/21 01/13/22 History [Vitamin B-12] Furosemide [Lasix] 40 mg PO DAILY 11/28/21 01/13/22 History Tiotropium 2.5 Mcg/Puff [Spiriva 2 puff INHALATION RT-DAILY 11/28/21 01/13/22 History Respimat 2.5 Mcg] Valsartan 40 mg PO BID PRN 12/17/21 01/13/22 History Ipratropium-Albuterol Nebulize 3 ml INHALATION RT-QID 01/13/22 01/13/22 History [Duoneb 0.5 mg-3 mg/3 ml Soln] Warfarin Sodium [Jantoven] 2 mg PO HS 01/13/22 01/13/22 History guaiFENesin [Mucinex] 600 mg PO Q12H 01/13/22 01/13/22 History predniSONE 10 mg PO DAILY 01/13/22 01/13/22 History Allergies Allergy/AdvReac Type Severity Reaction Status Date / Time albuterol Allergy Rapid Verified 01/13/22 19:16 Heart Rate empagliflozin Allergy Dyspnea Verified 01/13/22 19:16 [From Jardiance] pain med (can't remember Allergy Hallucinati Uncoded 01/13/22 14:50 name) ons Patches on chest Allergy Swelling Uncoded 01/13/22 14:50 Physical Exam Vitals: Vital Signs Temp Pulse Pulse Resp BP Pulse Ox 01/15/22 10:04 124 H 01/15/22 09:48 125 H 01/15/22 08:25 98.8 F 56 L 16 120/65 96 01/15/22 08:06 103 H 01/15/22 07:53 105 H 99 01/15/22 04:00 88 20 100/49 98 01/15/22 02:00 99 20 01/15/22 00:00 99 20 129/85 98 01/14/22 20:26 86 01/14/22 20:16 85 01/14/22 20:00 97.9 F 88 18 112/66 98 01/14/22 16:00 98.2 F 101 H 24 115/69 97 01/14/22 15:51 98 01/14/22 15:41 97 98 01/14/22 14:00 96 20 Intake and Output 01/14/22 01/15/22 01/15/22 22:59 06:59 14:59 Intake Total 118 118 Balance 118 118 Intake: Oral 118 118 Other: Voiding Method Toilet Toilet Toilet # Voids 1 1 Results 01/14/22 08:50 01/14/22 08:50 Coagulation 01/15/22 Range/Units 08:14 PT 27.8 H (9.0-12.0) sec Current Medications Generic Name Dose Route Start Last Admin Trade Name Freq PRN Reason Stop Dose Admin Albuterol/Ipratropium 3 ml 01/15/22 12:00 Ipratropium-Albuterol 3 Ml Neb INHALATION RT-QID RAMONA Albuterol/Ipratropium 3 ml 01/15/22 09:54 Ipratropium-Albuterol 3 Ml Neb INHALATION RT-Q2H PRN Shortness Of Breath Or Wheezing Ascorbic Acid 1,000 mg 01/15/22 09:00 01/15/22 09:23 Ascorbic Acid 500 Mg Tab PO 1,000 mg DAILY RAMONA Administration Atorvastatin Calcium 10 mg 01/13/22 21:00 01/14/22 20:28 Atorvastatin 10 Mg Tab PO 10 mg HS RAMONA Administration Budesonide/Formoterol Fumarate 2 puff 01/14/22 08:00 01/15/22 07:55 Symbicort 80-4.5 Mcg Inhaler INHALATION 2 puff RT-BID RAMONA Administration Cyanocobalamin 1,000 mcg 01/15/22 09:00 01/15/22 09:23 Cyanocobalamin 500 Mcg Tab PO 1,000 mcg DAILY RAMONA Administration Dextrose/Water 25 ml 01/15/22 09:59 Dextrose 50% Syringe 50 Ml IVP PER PROTOCOL PRN Hypoglycemia Protocol Dextrose/Water 50 ml 01/15/22 09:59 Dextrose 50% Syringe 50 Ml IVP PER PROTOCOL PRN Hypoglycemia Protocol Furosemide 40 mg 01/15/22 21:00 Furosemide 10 Mg/Ml 4 Ml Vial IV Q12HR [facility] Guaifenesin 600 mg 01/14/22 12:30 01/15/22 09:23 Guaifenesin 600 Mg Tablet.Er PO 600 mg Q12HR [facility] Administration Ceftriaxone Sodium 1 gm/ 50 mls @ 100 mls/hr 01/13/22 17:45 01/15/22 09:23 Sodium Chloride IVPB 100 mls/hr Q24HR [facility] Administration Protocol Insulin Aspart 0 unit 01/15/22 12:30 Insulin Aspart (Novolog) 100 Unit/Ml Vial SQ ACHS [facility] Protocol Lorazepam 0.5 mg 01/13/22 21:00 01/15/22 09:23 Lorazepam 1 Mg Tab PO 0.5 mg BID PRN Administration Anxiety Methylprednisolone Sodium Succinate 60 mg 01/15/22 12:00 Methylprednisolone Sod Succi 125 Mg/2 Ml Vial IV Q6HR [facility] Metoprolol Tartrate 25 mg 01/15/22 10:45 Metoprolol Tartrate 25 Mg Tab PO TID [facility] Miscellaneous Information 0 each 01/13/22 21:06 Warfarin Per Pharmacy MISCELLANE DIRECTED PRN PER PROTOCOL Naloxone HCl 0.2 mg 01/13/22 18:10 Naloxone 0.4 Mg/Ml 1 Ml Vial IV Q2M PRN Opioid Reversal Non-Formulary Medication 2 puff 01/14/22 12:30 Levalbuterol Hfa Inhaler INHALATION RT-Q4H PRN Shortness Of Breath Tamsulosin HCl 0.8 mg 01/14/22 00:30 01/15/22 09:22 Tamsulosin 0.4 Mg Cap.Er.24h PO 0.8 mg DAILY RAMONA Administration Valsartan 40 mg 01/13/22 21:00 Valsartan 40 Mg Tab PO BID PRN BP OVER 110 Warfarin Sodium 2 mg 01/14/22 21:00 01/14/22 20:28 Warfarin 2 Mg Tab PO 2 mg HS RAMONA Administration Intake and Output 01/14/22 01/15/22 01/15/22 22:59 06:59 14:59 Intake Total 118 118 Balance 118 118 Intake: Oral 118 118 Other: Voiding Method Toilet Toilet Toilet # Voids 1 1 01/14/22 08:50 01/14/22 08:50
[2022-01-15] MEDS: INSULIN ASPART (NovoLOG) 100 UNIT/ML VIAL SQ SCH ×3 (12:15→21:14)
[2022-01-15 12:16] LABS: Glucose,Whole Blood 136 mg/dL (70-110)
[2022-01-15] MEDS: methylPREDNISolone SOD SUCCI 125 MG/2 ML VIAL IV SCH ×3 (12:18→23:28)
[2022-01-15] MEDS: METOPROLOL TARTRATE 25 MG TAB PO SCH ×3 (12:18→21:22)
--- NOTE | 2022-01-15 14:59 | P.PN ---
Subjective Progress Note Date: 01/16/22 H&P Date: 01/14/22 Chief Complaint: Shortness of breath Mr. Pereira is an 81-year-old male patient well-known to my practice, past medical history remarkable for heart failure COPD atrial fibrillation chronic debility pulmonary hypertension has been admitted several times in the last 3 months with acute exacerbation of COPD and heart failure. This gentleman lives by himself and his debility is is making it more difficult for him to recover and subsequently take care of himself. He is currently being admitted because is a afraid to be by himself, he is currently O2 dependent steroid- dependent COPD and heart failure, he feels unsafe at home by himself due to his weakness. Considerations for assisted living placement would be probably best. Currently complains of mild to moderate shortness of breath but no cough no chest pain and no abdominal pain no nausea no vomiting no diarrhea no other acute complaints at this time and no current history of flu, covid 19, infectious disease related or other exposures. 01/15/2022 short of breath, persists with breathing, discouraged and teary-eyed. Telemetry atrial fibrillation with heart rates in the 1 teens. Denies any chest pain, palpitations. Creatinine 1.25. Objective - Vital Signs Vital signs: Vital Signs Temp 98.8 F 01/15/22 08:25 Pulse 122 H 01/15/22 11:30 Resp 18 01/15/22 11:30 BP 136/64 01/15/22 11:30 Pulse Ox 99 01/15/22 11:30 FiO2 Intake & Output 01/14/22 01/15/22 01/15/22 18:59 06:59 18:59 Intake Total 236 236 Balance 236 236 Intake: Oral 236 236 Other: Voiding Method Toilet Toilet Toilet # Voids 1 1 1 - Exam General: Cachectic, awake, alert and oriented times 3. Wears O2 at home, pursed lip breathing HEENT: [PERRL. EOMI. No pharyngeal erythema or exudate.] Neck: [Supple, no JVD. Cardiac: [Heart irregularly irregular, grade 3 systolic ejection murmur Lungs: [Diminished breath sounds bilaterally with scattered wheezes Abdomen: Soft, nontender, nondistended, No organomegaly. Positive Bowel sounds. Extremes: No edema no cyanosis no claudication normal pulses] Skin: Warm and dry, No rash. Neurologic: No lateralizing deficits. CN II - XII grossly intact. - Labs CBC & Chem 7: 01/14/22 08:50 01/14/22 08:50 Labs: Abnormal Lab Results - Last 24 Hours (Table) 01/15/22 01/15/22 Range/Units 08:14 12:15 PT 27.8 H (9.0-12.0) sec INR 2.8 H (<1.2) POC Glucose (mg/dL) 136 H (70-110) mg/dL Microbiology - Last 24 Hours (Table) 01/13/22 15:40 Urine Culture - Final Urine,Clean Catch Assessment and Plan Assessment: Acute on chronic hypoxic respiratory failure secondary to acute on chronic CHF exacerbation, systolic dysfunction, acute COPD exacerbation in a patient with EF of 25-30%. Wears 2 L nasal cannula home. Troponins chronically elevated, secondary to pulmonary and renal Mildly elevated BNP, 4750 Severe cardiomyopathy and LV dysfunction with ejection fraction of 25-30%. Moderate to severe pulmonary hypertension, follows at [facility] History of [place] valve per [facility] Paroxysmal atrial fibrillation, anticoagulated with warfarin Chronic renal failure, stage III, baseline around 1.2 History of Right atypical renal cyst, 1.7 cm, bladder diverticulum demonstrating wall irregularity, mucosal lesion not excluded, following-up with urology outpatient Alcohol use, Daily alcohol consumption of 1-2 glasses of wine Mitral valve replacement, prosthetic valve Hypertension Hyperlipidemia PVD with history of stented lower abdominal aortic aneurysm History of nicotine dependence, 3 packs per day History of anxiety Medical debility Possible acute UTI, final urine culture negative. Plan: Continue on current medication regime ,monitoring and symptomatic treatment. IV push diuretics, scheduled and PRN nebulized bronchodilators, LABA, beta bebo.close monitoring of renal function with repeat labs ordered for a.m. Cardiology and pulmonary consults in place, recommendations pending. INR 2.8, Pharmacy dosing. Social work consult in place to assist with potential AFC resources. Patient requesting palliative care informational meeting-consulted. Prognosis guarded given multiple complex medical issues. The impression and plan of care has been dictated as directed. : I performed a history and examination of this patient, discussed the same with the dictator. I agree with the dictator's note ,documented as a scribe. Any additional findings or plans will be noted.
--- NOTE | 2022-01-15 15:41 | P.CONS ---
History of Present Illness - Reason for Consult Consult date: 01/15/22 [facility] Requesting physician: Ashanti Harris - Chief Complaint shortness of breath - History of Present Illness The patient is an 81-year-old male with a past medical history significant for heart failure, COPD atrial fibrillation,chronic debility, CKD III, and pulmonary hypertension. He presented to the Emergency Department on 01/14/22 with shortness of breath and weakness. He has been admitted several times in the last 3 months with acute exacerbation of COPD and heart failure. He stated that he just got out of rehab and went home and lives by himself. His debility is is making it more difficult for him to recover and subsequently take care of himself. He is currently O2 dependent steroid-dependent COPD and heart failure. He denied any cough, chest pain, or abdominal pain. No nausea, vomiting, or diarrhea. Review of Systems Constitutional: Reports as per HPI Past Medical History Past Medical History: Atrial Fibrillation, Heart Failure, COPD, GI Bleed, Hyperlipidemia, Pneumonia, Prostate Disorder, Renal Disease, Skin Disorder, Vascular Disorder Additional Past Medical History / Comment(s): GI bleed, gastritis, gastric ectasia, CKD stage III, past abdominal aortic aneurysm/had stent placed, varicosities, PVD, past shingellis and occasionally will have R flank nerve pain, BPH. History of Any Multi-Drug Resistant Organisms: None Reported Past Surgical History: Cardiac Valve Replacement, Cholecystectomy, Heart Catheterization Additional Past Surgical History / Comment(s): Stent placed for lower abd aortic aneurysym, mitral valve replacement/bicuspid repair, EGD with ablation, colonoscopy, excision L cheek lesion/mass and lesion from scalp/all benign, Past Anesthesia/Blood Transfusion Reactions: No Reported Reaction Date of Last Stent Placement:: 2015 Past Psychological History: Anxiety Smoking Status: Former smoker Past Alcohol Use History: Daily Past Drug Use History: None Reported - Past Family History Mother Family Medical History: Myocardial Infarction ([place]) Additional Family Medical History / Comment(s): at a young age. Father Family Medical History: Hypertension Medications and Allergies Home Medications Medication Instructions Recorded Confirmed Type LORazepam [Ativan] 1 mg PO BID 11/21/17 01/13/22 History Tamsulosin [Flomax] 0.8 mg PO DAILY 11/21/17 01/13/22 History Bisoprolol Fumarate 5 mg PO DAILY 12 Days #12 tablet 10/07/18 01/13/22 Rx Atorvastatin [Lipitor] 10 mg PO HS 07/20/21 01/13/22 History Fluticasone Propion/Salmeterol 1 puff IN RT-BID 07/20/21 01/13/22 History [Advair 100-50 Diskus] Levalbuterol Hfa Inhaler [Xopenex 2 puff INHALATION RT-Q4H PRN MDD 07/20/21 01/13/22 History Hfa Inhaler] 4X DAILY Ascorbic Acid [Vitamin C] 1,000 mg PO DAILY 11/28/21 01/13/22 History Cyanocobalamin (Vitamin B-12) 1,000 mcg PO DAILY 11/28/21 01/13/22 History [Vitamin B-12] Furosemide [Lasix] 40 mg PO DAILY 11/28/21 01/13/22 History Tiotropium 2.5 Mcg/Puff [Spiriva 2 puff INHALATION RT-DAILY 11/28/21 01/13/22 History Respimat 2.5 Mcg] Valsartan 40 mg PO BID PRN 12/17/21 01/13/22 History Ipratropium-Albuterol Nebulize 3 ml INHALATION RT-QID 01/13/22 01/13/22 History [Duoneb 0.5 mg-3 mg/3 ml Soln] Warfarin Sodium [Jantoven] 2 mg PO HS 01/13/22 01/13/22 History guaiFENesin [Mucinex] 600 mg PO Q12H 01/13/22 01/13/22 History predniSONE 10 mg PO DAILY 01/13/22 01/13/22 History Allergies Allergy/AdvReac Type Severity Reaction Status Date / Time albuterol Allergy Rapid Verified 01/13/22 19:16 Heart Rate empagliflozin Allergy Dyspnea Verified 01/13/22 19:16 [From Jardiance] pain med (can't remember Allergy Hallucinati Uncoded 01/13/22 14:50 name) ons Patches on chest Allergy Swelling Uncoded 01/13/22 14:50 Physical Exam Vitals: Vital Signs Temp Pulse Pulse Resp BP Pulse Ox 01/15/22 11:30 122 H 18 136/64 99 01/15/22 10:04 124 H 01/15/22 09:48 125 H 01/15/22 08:25 98.8 F 56 L 16 120/65 96 01/15/22 08:06 103 H 01/15/22 07:53 105 H 99 01/15/22 04:00 88 20 100/49 98 01/15/22 02:00 99 20 01/15/22 00:00 99 20 129/85 98 01/14/22 20:26 86 01/14/22 20:16 85 01/14/22 20:00 97.9 F 88 18 112/66 98 01/14/22 16:00 98.2 F 101 H 24 115/69 97 01/14/22 15:51 98 01/14/22 15:41 97 98 Intake and Output 01/15/22 01/15/22 01/15/22 06:59 14:59 22:59 Intake Total 236 Balance 236 Intake: Oral 236 Other: Voiding Method Toilet Toilet # Voids 1 1 General: Well developed, well nourished. Mild respiratory distress. Chronically ill appearing HEENT: Head is atraumatic, normocephalic. Sclera are clear. Mucus membranes moist. CV: Heart irregular in rate and rhythm positive S1 and S2. Systolic ejection murmur. Lungs: Diminished bases, scattered wheezes. Respirations slightly labored. Abdomen/GI: Soft. No guarding, rigidity, or abdominal tenderness. Musculoskeletal/ Extremities: [place], no joint deformity or swelling. No gross atrophy. + generalized weakness Vascular: Radial pulses equal. 2/4. Trace peripheral edema Skin: Warm and dry Neurologic: Awake, alert and oriented times 3. CN II-XII grossly intact. No focal deficits. Psychiatric: Appropriate mood and affect. Results CBC & Chem 7: 01/14/22 08:50 01/14/22 08:50 Labs: Abnormal Lab Results - Last 24 Hours (Table) 01/15/22 01/15/22 Range/Units 08:14 12:15 PT 27.8 H (9.0-12.0) sec INR 2.8 H (<1.2) POC Glucose (mg/dL) 136 H (70-110) mg/dL Microbiology - Last 24 Hours (Table) 01/13/22 15:40 Urine Culture - Final Urine,Clean Catch Chest x-ray: report reviewed Assessment and Plan Assessment: Symptoms * Pain - 2/10, general arthritic pain * Fatigue - + weakness and debility * SOB - Yes, at rest and with activity. Continue Duoneb, Solumedrol, Symbicort, Lasix, Levalbuterol * Insomnia - No * N/V - No * Anxiety - Occasional, continue Ativan prn * Depression - No * Confusion - No * Agitation - No * Hallucinations - No * Appetite/weight loss - "Pretty good" appetite, no recent weight loss. Continue Heart Healthy diet * Dysphagia - No * Constipation - No * Incontinence - No * Itch - No * Cough - Occasional, non productive, continue Mucinex Plan: Summary/Goals - The patient is oriented x 3. Palliative care philosophies and services explained to patient. Attempted to educate patient on his disease progression and trajectory. He cut me off and stated he is not interested in palliative care. He would like hospice. Hospice philosophies and services explained to the patient. He stated he is tired of coming back and forth to the hospital. He is aware that he is not going to get an better and would like peace and comfort for his remaining days. He states he lives alone and can not take care of himself anymore. He has gone to rehab before in the past and is not interested in that again. His nieces Toya and Maverick are present at the bedside. His family is not able to care for him at home. A consult for [facility] home was placed. medical education manager, Kalie, was notified. Recommendations - Code Status - DNR Thank you for this consultation Jennifer Romo [facility] [id number] Email: [email or web address] Time with Patient: Greater than 30
--- NOTE | 2022-01-15 16:08 | P.CNPUL ---
History of Present Illness Consult date: 01/15/22 Requesting physician: Tan Bey Jr Reason for consult: dyspnea, cough, COPD, hypoxemia Chief complaint: Shortness of breath. History of present illness: Pulmonary consult dated 01/15/2022. This is an 81-year-old male, who was evaluated in the emergency department, on January 13. The patient apparently was admitted with a diagnosis of shortness of breath. He apparently has a history of COPD, heart failure, atrial fibrillation, and chronic medical debility. He complained of weakness, and recently just got out of rehabilitation. He apparently lives by himself at home, and has declined significantly, in recent days and weeks. He was admitted with a diagnosis of urinary tract infection, COPD exacerbation, debility, and weakness. We are just being consulted today, on the . The patient is currently on oxygen, at 2 L. He is quite tearful and upset. He apparently has asked to speak to hospice. His white count is 5.5, hemoglobin 11.1, hematocrit 34.6, and platelet count 248,000. PTT is 27.8 with an INR of 2.8. Sodium 139, potassium 4.5, chlorides 101, CO2 32, BUN 47, and creatinine 1.25. Troponins were 0.050 and 0.044. Chest x-rays consistent with emphysematous changes, and some mild interstitial edema. In addition, there are small effusions. His admission N-terminal proBNP was elevated at 4750. Review of Systems REVIEW OF SYSTEMS: CONSTITUTIONAL: Weakness, and medical debility. NEUROLOGIC: [ Negative.] HEENT: [ Negative.] CARDIAC: [Negative.] PULMONARY: Severe shortness of breath. GI: [Negative.] : [Negative.] RHEUMATOLOGIC: [ Negative.] IMMUNOLOGIC: [ Negative.] ENDOCRINE: [Negative. ] DERMATOLOGIC: [Negative.] Past Medical History Past Medical History: Atrial Fibrillation, Heart Failure, COPD, GI Bleed, Hyperlipidemia, Pneumonia, Prostate Disorder, Renal Disease, Skin Disorder, Vascular Disorder Additional Past Medical History / Comment(s): GI bleed, gastritis, gastric ectasia, CKD stage III, past abdominal aortic aneurysm/had stent placed, varicosities, PVD, past shingellis and occasionally will have R flank nerve pain, BPH. History of Any Multi-Drug Resistant Organisms: None Reported Past Surgical History: Cardiac Valve Replacement, Cholecystectomy, Heart Catheterization Additional Past Surgical History / Comment(s): Stent placed for lower abd aortic aneurysym, mitral valve replacement/bicuspid repair, EGD with ablation, colonoscopy, excision L cheek lesion/mass and lesion from scalp/all benign, Past Anesthesia/Blood Transfusion Reactions: No Reported Reaction Date of Last Stent Placement:: 2015 Past Psychological History: Anxiety Smoking Status: Former smoker Past Alcohol Use History: Daily Past Drug Use History: None Reported - Past Family History Mother Family Medical History: Myocardial Infarction ([place]) Additional Family Medical History / Comment(s): at a young age. Father Family Medical History: Hypertension Medications and Allergies Home Medications Medication Instructions Recorded Confirmed Type LORazepam [Ativan] 1 mg PO BID 11/21/17 01/13/22 History Tamsulosin [Flomax] 0.8 mg PO DAILY 11/21/17 01/13/22 History Bisoprolol Fumarate 5 mg PO DAILY 12 Days #12 tablet 10/07/18 01/13/22 Rx Atorvastatin [Lipitor] 10 mg PO HS 07/20/21 01/13/22 History Fluticasone Propion/Salmeterol 1 puff IN RT-BID 07/20/21 01/13/22 History [Advair 100-50 Diskus] Levalbuterol Hfa Inhaler [Xopenex 2 puff INHALATION RT-Q4H PRN MDD 07/20/21 01/13/22 History Hfa Inhaler] 4X DAILY Ascorbic Acid [Vitamin C] 1,000 mg PO DAILY 11/28/21 01/13/22 History Cyanocobalamin (Vitamin B-12) 1,000 mcg PO DAILY 11/28/21 01/13/22 History [Vitamin B-12] Furosemide [Lasix] 40 mg PO DAILY 11/28/21 01/13/22 History Tiotropium 2.5 Mcg/Puff [Spiriva 2 puff INHALATION RT-DAILY 11/28/21 01/13/22 History Respimat 2.5 Mcg] Valsartan 40 mg PO BID PRN 12/17/21 01/13/22 History Ipratropium-Albuterol Nebulize 3 ml INHALATION RT-QID 01/13/22 01/13/22 History [Duoneb 0.5 mg-3 mg/3 ml Soln] Warfarin Sodium [Jantoven] 2 mg PO HS 01/13/22 01/13/22 History guaiFENesin [Mucinex] 600 mg PO Q12H 01/13/22 01/13/22 History predniSONE 10 mg PO DAILY 01/13/22 01/13/22 History Allergies Allergy/AdvReac Type Severity Reaction Status Date / Time albuterol Allergy Rapid Verified 01/13/22 19:16 Heart Rate empagliflozin Allergy Dyspnea Verified 01/13/22 19:16 [From Jardiance] pain med (can't remember Allergy Hallucinati Uncoded 01/13/22 14:50 name) ons Patches on chest Allergy Swelling Uncoded 01/13/22 14:50 Physical Exam Osteopathic Statement: *. No significant issues noted on an osteopathic structural exam other than those noted in the History and Physical/Consult. Vitals: Vital Signs Temp Pulse Pulse Resp BP Pulse Ox 01/15/22 11:30 122 H 18 136/64 99 01/15/22 10:04 124 H 01/15/22 09:48 125 H 01/15/22 08:25 98.8 F 56 L 16 120/65 96 01/15/22 08:06 103 H 01/15/22 07:53 105 H 99 01/15/22 04:00 88 20 100/49 98 01/15/22 02:00 99 20 01/15/22 00:00 99 20 129/85 98 01/14/22 20:26 86 01/14/22 20:16 85 01/14/22 20:00 97.9 F 88 18 112/66 98 01/14/22 16:00 98.2 F 101 H 24 115/69 97 Intake and Output 01/15/22 01/15/22 01/15/22 06:59 14:59 22:59 Intake Total 236 Balance 236 Intake: Oral 236 Other: Voiding Method Toilet Toilet # Voids 1 1 No acute distress, oriented 3. Currently on 4 L of oxygen. Saturations are 99%. No audible wheezing, or use of accessory muscles. HEENT examination is grossly unremarkable. Neck supple. Full range of motion. No adenopathy thyromegaly or neck vein distention. Cardiovascular examination reveals regular rhythm rate. S1-S2 normal. No S3 or S4. No discernible murmur noted. Heart sounds are distant. Heart rate 112 bpm. Lungs reveal scattered bilateral rhonchi and basilar crackles. No wheezes. Breath sounds equal. Saturations 99% on 4 L. Abdomen soft bowel sounds are heard. No masses or tenderness. Extremities are intact. No cyanosis clubbing or edema. Skin is without rash or lesion. Neurologic examination is brief but nonfocal. Results - Laboratory Findings CBC and BMP: 01/14/22 08:50 01/14/22 08:50 PT/INR, D-dimer PT 27.8 sec (9.0-12.0) H 01/15/22 08:14 INR 2.8 (<1.2) H 01/15/22 08:14 Abnormal lab findings: Abnormal Labs 01/13/22 01/13/22 01/13/22 15:40 15:40 15:40 RBC 3.83 L Hgb 12.2 L Hct 36.8 L Plt Count Neutrophils # 8.9 H Lymphocytes # 0.3 L PT 33.4 H INR 3.4 H APTT 33.5 H Sodium Chloride Carbon Dioxide BUN Glucose POC Glucose (mg/dL) Calcium Troponin I Total Protein Albumin Ur Leukocyte Esterase Large H Urine RBC 12 H Urine WBC >182 H Urine WBC Clumps Occasional H Urine Bacteria Occasional H Hyaline Casts 12 H Urine Mucus Rare H Urine Yeast (Budding) Many H 01/13/22 01/13/22 01/13/22 15:40 15:40 22:38 RBC Hgb Hct Plt Count Neutrophils # Lymphocytes # PT INR APTT Sodium 135 L Chloride 97 L Carbon Dioxide 33 H BUN 45 H Glucose 123 H POC Glucose (mg/dL) Calcium Troponin I 0.054 H* 0.050 H* Total Protein 6.0 L Albumin 3.4 L Ur Leukocyte Esterase Urine RBC Urine WBC Urine WBC Clumps Urine Bacteria Hyaline Casts Urine Mucus Urine Yeast (Budding) 01/14/22 01/14/22 01/14/22 01:25 08:50 08:50 RBC 3.59 L Hgb 11.1 L Hct 34.6 L Plt Count 148 L Neutrophils # Lymphocytes # 0.3 L PT INR APTT Sodium Chloride Carbon Dioxide 32 H BUN 47 H Glucose 120 H POC Glucose (mg/dL) Calcium 8.2 L Troponin I 0.044 H* Total Protein Albumin Ur Leukocyte Esterase Urine RBC Urine WBC Urine WBC Clumps Urine Bacteria Hyaline Casts Urine Mucus Urine Yeast (Budding) 01/14/22 01/15/22 01/15/22 08:50 08:14 12:15 RBC Hgb Hct Plt Count Neutrophils # Lymphocytes # PT 28.1 H 27.8 H INR 2.8 H 2.8 H APTT Sodium Chloride Carbon Dioxide BUN Glucose POC Glucose (mg/dL) 136 H Calcium Troponin I Total Protein Albumin Ur Leukocyte Esterase Urine RBC Urine WBC Urine WBC Clumps Urine Bacteria Hyaline Casts Urine Mucus Urine Yeast (Budding) - Diagnostic Findings Chest x-ray: image reviewed Assessment and Plan Assessment: Severe shortness of breath, likely multifactorial, in part related to fluid overload/CHF, and COPD exacerbation. Chronic hypoxemic respiratory failure. Acute urinary tract infection. History of atrial fibrillation. History of CHF. History of GI bleed. Hyperlipidemia. History of pneumonia. History of stage III chronic kidney disease. History of peripheral vascular disease. History of benign prostatic hypertrophy. Status post stent placement, abdominal aortic aneurysm. History of mitral valve replacement, and repair of bicuspid aortic valve. Plan: Plan dated 01/15/2022. The patient is currently on Rocephin for suspected urinary tract infection. The patient is also on Symbicort, and updrafts. The patient is also receiving Solu- Medrol every 6 hours. The patient is receiving Lasix 40 mg IV every 12 hours. Additional recommendations and suggestions are forthcoming. We will continue to follow and make recommendations along the way. Prognosis is guarded. He was very tearful today. He apparently has asked to speak to hospice. Time with Patient: Greater than 30
[2022-01-15 16:59] LABS: Glucose,Whole Blood 155 mg/dL (70-110)
[2022-01-15 20:40] LABS: Glucose,Whole Blood 136 mg/dL (70-110)
[2022-01-15] MEDS: ATORVASTATIN 10 MG TAB PO SCH (21:21)
[2022-01-15] MEDS: WARFARIN 2 MG TAB PO SCH (21:22)
[2022-01-15] MEDS: FUROSEMIDE 10 MG/ML 4 ML VIAL IV SCH (21:22)
[2022-01-16] MEDS ORDERED: ACETAMINOPHEN TAB 325 MG TAB PO PRN (01:02)
[2022-01-16] MEDS: methylPREDNISolone SOD SUCCI 125 MG/2 ML VIAL IV SCH ×3 (06:06→17:42)
[2022-01-16 06:07] LABS: Glucose,Whole Blood 148 mg/dL (70-110)
[2022-01-16] MEDS: INSULIN ASPART (NovoLOG) 100 UNIT/ML VIAL SQ SCH ×4 (06:07→21:19)
[2022-01-16 07:25] LABS: INR 4.3 (<1.2); Prothrombin Time 42.8 sec (9.0-12.0)
[2022-01-16 07:30] LABS: Potassium 3.9 mmol/L (3.5-5.1)
[2022-01-16] MEDS: IPRATROPIUM-ALBUTEROL 3 ML NEB INHALATION SCH ×4 (08:27→19:53)
[2022-01-16] MEDS: SYMBICORT 80-4.5 MCG INHALER INHALATION SCH ×2 (08:27→19:53)
[2022-01-16] MEDS ORDERED: FUROSEMIDE 10 MG/ML 4 ML VIAL IV SCH (09:00)
[2022-01-16] MEDS: FUROSEMIDE 10 MG/ML 4 ML VIAL IV SCH (09:13)
[2022-01-16] MEDS: TAMSULOSIN 0.4 MG CAP.ER.24H PO SCH (09:13)
[2022-01-16] MEDS: CYANOCOBALAMIN 500 MCG TAB PO SCH (09:13)
[2022-01-16] MEDS: METOPROLOL TARTRATE 25 MG TAB PO SCH ×3 (09:14→21:18)
[2022-01-16] MEDS: ASCORBIC ACID 500 MG TAB PO SCH (09:26)
[2022-01-16] MEDS: guaiFENesin 600 MG TABLET.ER PO SCH ×2 (09:26→21:18)
[2022-01-16] MEDS: LORazepam 1 MG TAB PO PRN ×2 (09:26→21:19)
--- NOTE | 2022-01-16 10:22 | P.PN ---
Subjective Progress Note Date: 01/16/22 HISTORY OF PRESENT ILLNESS: This is a 81-year-old male with a past medical history significant for COPD with home oxygen use, tissue mitral valve replacement and tricuspid valve repair at [facility] in 2014, nonischemic myopathy, paroxysmal atrial fibrillation on Coumadin, hypertension, AAA, former nicotine dependence, pulmonary hypertension, and hyperlipidemia. Patient follows in the office with Dr. Kramer. We have been asked to see the patient in consultation for CHF. Patient examined at the bedside. Patient is admitted to the hospital secondary to acute exacerbation of COPD. Patient reports shortness of breath this morning. Tachypnea present of examination. He denies any chest pain or pressure. Denies any dizziness or lightheadedness. Blood pressure is stable with a recent reading of 120/65. Telemetry reveals atrial for relation with uncontrolled heart rates in the 120s. There is a hospice consult pending. * EKG reveals atrial fibrillation with mild RVR. Heart rate 114. * Chest xray COPD and mild pulmonary interstitial edema. There is some pleural reaction and atelectasis at the lung bases which is increased compared to old exam. No definite heart failure. * Laboratory data: WBC 5.5. Hemoglobin 11.1. Platelet count 148. INR 2.8. Sodium 139. Potassium 4.5. BUN 47. Creatinine 1.25. Troponin 0.054. 0.050. 0.044. ProBNP 4750. * Current home cardiac medications include Lipitor 10 mg at night, Lasix 40 mg daily, valsartan 40 mg twice a day as needed, warfarin 2 mg at night, Bisoprolol 5mg daily * Most recent echocardiogram obtained in November 2021 revealing ejection fraction 25-30%, outer aortic regurgitation, moderate tricuspid regurgitation, status post tricuspid valve repair, bioprosthetic mitral valve 01/16/2022 Patient examined this morning to bedside. Patient states his breathing is significantly improved today. Patient remains on IV Lasix. Creatinine 1.48. Fluid balance over the last 24 hours is -2564 mL. Telemetry reveals atrial fibrillation with a heart rate in the 80s to 90s, occasionally jumping over 100 but not sustaining. INR today 4.3. Consult with hospice is currently pending. PHYSICAL EXAM: VITAL SIGNS: Reviewed. GENERAL: Well-developed in no acute distress. HEENT: Head is normocephalic. Pupils are equal, round. Sclerae anicteric. Mucous membranes of the mouth are moist. Neck supple. No JVD or thyromegaly LUNGS: Respirations even and unlabored. Severely decreased air exchange bilaterally HEART: Irregular rate and rhythm. S1 and S2 heard. Systolic murmur noted ABDOMEN: Soft. Nondistended. Nontender. EXTREMITIES: Normal range of motion. No clubbing or cyanosis. Peripheral pulses intact. No lower extremity edema NEUROLOGIC: Awake and alert. Oriented x 3. ASSESSMENT: Acute COPD exacerbation Acute on chronic heart failure with reduced ejection fraction, EF 25-30% History of COPD with home oxygen use Paroxysmal atrial fibrillation, anticoagulated with warfarin Abnormal troponins, flat, not suggestive of acute coronary syndrome History of nonischemic cardiomyopathy History of mitral valve replacement, 2014 History of tricuspid valve repair, 2014 History of AAA Hyperlipidemia PLAN: Continue current cardiac medications Discontinue IV Lasix Begin oral Lasix 40 mg twice a day Add Aldactone 12.5 mg daily Hold Coumadin tonight. Repeat INR in the morning. Continue telemetry monitoring Continue to monitor blood pressures Hospice consult is currently pending Further recommendations pending patient's course Nurse practitioner note has been reviewed by physician. Signing provider agrees with the documented findings, assessment, and plan of care. Objective - Vital Signs Vital signs: Vital Signs Temp 97.5 F L 01/16/22 08:38 Pulse 112 H 01/16/22 08:38 Resp 20 01/16/22 08:38 BP 114/69 01/16/22 08:38 Pulse Ox 97 01/16/22 08:38 FiO2 Intake & Output 01/15/22 01/16/22 01/16/22 18:59 06:59 18:59 Intake Total 236 236 Output Total 1800 1000 Balance -1564 -1000 236 Intake: Oral 236 236 Output: Urine 1800 1000 Straight 900 Uretheral (Felder) 1000 Other: Voiding Method Toilet Indwelling Catheter Indwelling Catheter # Voids 1 - Labs CBC & Chem 7: 01/14/22 08:50 01/16/22 06:56 Labs: Abnormal Lab Results - Last 24 Hours (Table) 01/14/22 01/15/22 01/15/22 Range/Units 08:50 12:15 16:58 PT (9.0-12.0) sec INR (<1.2) Carbon Dioxide (22-30) mmol/L BUN (9-20) mg/dL Creatinine (0.66-1.25) mg/dL Glucose (74-99) mg/dL POC Glucose (mg/dL) 136 H 155 H (70-110) mg/dL Hemoglobin A1c 6.5 H (0.0-6.0) % Calcium (8.4-10.2) mg/dL 01/15/22 01/16/22 01/16/22 Range/Units 20:38 06:06 06:56 PT 42.8 H (9.0-12.0) sec INR 4.3 H (<1.2) Carbon Dioxide (22-30) mmol/L BUN (9-20) mg/dL Creatinine (0.66-1.25) mg/dL Glucose (74-99) mg/dL POC Glucose (mg/dL) 136 H 148 H (70-110) mg/dL Hemoglobin A1c (0.0-6.0) % Calcium (8.4-10.2) mg/dL 01/16/22 Range/Units 06:56 PT (9.0-12.0) sec INR (<1.2) Carbon Dioxide 35 H (22-30) mmol/L BUN 56 H (9-20) mg/dL Creatinine 1.48 H (0.66-1.25) mg/dL Glucose 124 H (74-99) mg/dL POC Glucose (mg/dL) (70-110) mg/dL Hemoglobin A1c (0.0-6.0) % Calcium 8.0 L (8.4-10.2) mg/dL
[2022-01-16] MEDS: SPIRONOLACTONE 25 MG TAB PO SCH (10:39)
[2022-01-16 11:54] LABS: Glucose,Whole Blood 142 mg/dL (70-110)
--- NOTE | 2022-01-16 11:56 | P.PN ---
Subjective Progress Note Date: 01/16/22 Principal diagnosis: Shortness of breath. Pulmonary consult dated 01/15/2022. This is an 81-year-old male, who was evaluated in the emergency department, on January 13. The patient apparently was admitted with a diagnosis of shortness of breath. He apparently has a history of COPD, heart failure, atrial fibrillation, and chronic medical debility. He complained of weakness, and recently just got out of rehabilitation. He apparently lives by himself at home, and has declined significantly, in recent days and weeks. He was admitted with a diagnosis of urinary tract infection, COPD exacerbation, debility, and weakness. We are just being consulted today, on the . The patient is currently on oxygen, at 2 L. He is quite tearful and upset. He apparently has asked to speak to hospice. His white count is 5.5, hemoglobin 11.1, hematocrit 34.6, and platelet count 248,000. PTT is 27.8 with an INR of 2.8. Sodium 139, potassium 4.5, chlorides 101, CO2 32, BUN 47, and creatinine 1.25. Troponins were 0.050 and 0.044. Chest x-rays consistent with emphysematous changes, and some mild interstitial edema. In addition, there are small effusions. His admission N-terminal proBNP was elevated at 4750. Progress note dated 01/16/2022. The patient is again seen today in room 363. He was seen yesterday in consultation. He appears to be in better spirits today. He remains on 4 L of oxygen. He's not receiving any IV fluids. I believe he has made a decision to go into hospice. PTT is 42.8 with an INR 1.3. Sodium 138, potassium 3.9, chlorides 100, CO2 35, BUN 56, creatinine 1.48. Calcium is 8. Objective - Vital Signs Vital signs: Vital Signs Temp 97.5 F L 01/16/22 08:38 Pulse 112 H 01/16/22 08:38 Resp 20 01/16/22 08:38 BP 114/69 01/16/22 08:38 Pulse Ox 97 01/16/22 08:38 FiO2 Intake & Output 01/15/22 01/16/22 01/16/22 18:59 06:59 18:59 Intake Total 236 236 Output Total 1800 1000 Balance -1564 -1000 236 Intake: Oral 236 236 Output: Urine 1800 1000 Straight 900 Uretheral (Felder) 1000 Other: Voiding Method Toilet Indwelling Catheter Indwelling Catheter # Voids 1 - Exam No acute distress, oriented 3. Currently on 4 L of oxygen. Saturations are 99%. No audible wheezing, or use of accessory muscles. HEENT examination is grossly unremarkable. Neck supple. Full range of motion. No adenopathy thyromegaly or neck vein dist ention. Cardiovascular examination reveals regular rhythm rate. S1-S2 normal. No S3 or S4. No discernible murmur noted. Heart sounds are distant. Heart rate 102 bpm. Lungs reveal scattered bilateral rhonchi and basilar crackles. No wheezes. Breath sounds equal. Saturations 97 % on 4 L. Abdomen soft bowel sounds are heard. No masses or tenderness. Extremities are intact. No cyanosis clubbing or edema. Skin is without rash or lesion. Neurologic examination is brief but nonfocal. - Labs CBC & Chem 7: 01/14/22 08:50 01/16/22 06:56 Labs: Abnormal Lab Results - Last 24 Hours (Table) 01/14/22 01/15/22 01/15/22 Range/Units 08:50 12:15 16:58 PT (9.0-12.0) sec INR (<1.2) Carbon Dioxide (22-30) mmol/L BUN (9-20) mg/dL Creatinine (0.66-1.25) mg/dL Glucose (74-99) mg/dL POC Glucose (mg/dL) 136 H 155 H (70-110) mg/dL Hemoglobin A1c 6.5 H (0.0-6.0) % Calcium (8.4-10.2) mg/dL 01/15/22 01/16/22 01/16/22 Range/Units 20:38 06:06 06:56 PT 42.8 H (9.0-12.0) sec INR 4.3 H (<1.2) Carbon Dioxide (22-30) mmol/L BUN (9-20) mg/dL Creatinine (0.66-1.25) mg/dL Glucose (74-99) mg/dL POC Glucose (mg/dL) 136 H 148 H (70-110) mg/dL Hemoglobin A1c (0.0-6.0) % Calcium (8.4-10.2) mg/dL 01/16/22 Range/Units 06:56 PT (9.0-12.0) sec INR (<1.2) Carbon Dioxide 35 H (22-30) mmol/L BUN 56 H (9-20) mg/dL Creatinine 1.48 H (0.66-1.25) mg/dL Glucose 124 H (74-99) mg/dL POC Glucose (mg/dL) (70-110) mg/dL Hemoglobin A1c (0.0-6.0) % Calcium 8.0 L (8.4-10.2) mg/dL Assessment and Plan Assessment: Severe shortness of breath, likely multifactorial, in part related to fluid overload/CHF, and COPD exacerbation. Chronic hypoxemic respiratory failure. Acute urinary tract infection. History of atrial fibrillation. History of CHF. History of GI bleed. Hyperlipidemia. History of pneumonia. History of stage III chronic kidney disease. History of peripheral vascular disease. History of benign prostatic hypertrophy. Status post stent placement, abdominal aortic aneurysm. History of mitral valve replacement, and repair of bicuspid aortic valve. Plan: Plan dated 01/15/2022. The patient is currently on Rocephin for suspected urinary tract infection. The patient is also on Symbicort, and updrafts. The patient is also receiving Solu- Medrol every 6 hours. The patient is receiving Lasix 40 mg IV every 12 hours. Additional recommendations and suggestions are forthcoming. We will continue to follow and make recommendations along the way. Prognosis is guarded. He was very tearful today. He apparently has asked to speak to hospice. Plan dated 01/16/2022. The patient is doing better today. He is much less depressed or sad. The marysol evgeny apparently has decided to go into hospice. He remains on 4 L of oxygen. His breathing is improved. She is diuresing very nicely. Labs, x-rays, and medications are reviewed. We will continue to follow make recommendations along the way. Prognosis is guarded. Time with Patient: Less than 30
--- NOTE | 2022-01-16 13:57 | P.PN ---
Progress Note - Text Progress Note Date: 01/16/22 Patient and family meeting with [facility]. Will follow up tomorrow. Jennifer Romo [facility] Palliative Care/Urology [employer] [id number] Email: [email or web address]
[2022-01-16] MEDS: FUROSEMIDE 40 MG TAB PO SCH (15:56)
[2022-01-16 16:46] LABS: Glucose,Whole Blood 121 mg/dL (70-110)
[2022-01-16] MEDS ORDERED: WARFARIN 0.5 MG TAB PO ONE (18:00)
[2022-01-16 20:45] LABS: Glucose,Whole Blood 162 mg/dL (70-110)
[2022-01-16] MEDS: ATORVASTATIN 10 MG TAB PO SCH (21:19)
[2022-01-17] MEDS: methylPREDNISolone SOD SUCCI 125 MG/2 ML VIAL IV SCH ×2 (00:08→06:16)
[2022-01-17] MEDS: INSULIN ASPART (NovoLOG) 100 UNIT/ML VIAL SQ SCH ×4 (06:18→21:08)
[2022-01-17 06:19] LABS: Glucose,Whole Blood 136 mg/dL (70-110)
[2022-01-17] MEDS: IPRATROPIUM-ALBUTEROL 3 ML NEB INHALATION SCH (07:46)
[2022-01-17] MEDS: SYMBICORT 80-4.5 MCG INHALER INHALATION SCH (07:46)
[2022-01-17 08:43] LABS: Prothrombin Time 57.5 sec (9.0-12.0)
[2022-01-17 08:57] LABS: INR 5.7 (<1.2)
[2022-01-17 09:10] LABS: Calcium 8.2 mg/dL (8.4-10.2); Potassium 4.4 mmol/L (3.5-5.1)
[2022-01-17] MEDS: METOPROLOL TARTRATE 25 MG TAB PO SCH ×3 (09:11→21:07)
[2022-01-17] MEDS: LORazepam 1 MG TAB PO PRN ×2 (09:11→17:06)
[2022-01-17] MEDS: guaiFENesin 600 MG TABLET.ER PO SCH ×2 (09:11→21:07)
[2022-01-17] MEDS: SPIRONOLACTONE 25 MG TAB PO SCH (09:11)
[2022-01-17] MEDS: CYANOCOBALAMIN 500 MCG TAB PO SCH (09:12)
[2022-01-17] MEDS: FUROSEMIDE 40 MG TAB PO SCH ×2 (09:12→15:19)
[2022-01-17] MEDS: TAMSULOSIN 0.4 MG CAP.ER.24H PO SCH (09:12)
[2022-01-17] MEDS: ASCORBIC ACID 500 MG TAB PO SCH (09:12)
[2022-01-17] MEDS ORDERED: PHYTONADIONE ORAL 5 MG/5 ML ORAL.SYRG PO STA (09:32)
--- NOTE | 2022-01-17 10:33 | P.PN ---
Subjective Progress Note Date: 01/17/22 HISTORY OF PRESENT ILLNESS: This is a 81-year-old male with a past medical history significant for COPD with home oxygen use, tissue mitral valve replacement and tricuspid valve repair at [facility] in 2014, nonischemic myopathy, paroxysmal atrial fibrillation on Coumadin, hypertension, AAA, former nicotine dependence, pulmonary hypertension, and hyperlipidemia. Patient follows in the office with Dr. Kramer. We have been asked to see the patient in consultation for CHF. Patient examined at the bedside. Patient is admitted to the hospital secondary to acute exacerbation of COPD. Patient reports shortness of breath this morning. Tachypnea present of examination. He denies any chest pain or pressure. Denies any dizziness or lightheadedness. Blood pressure is stable with a recent reading of 120/65. Telemetry reveals atrial for relation with uncontrolled heart rates in the 120s. There is a hospice consult pending. * EKG reveals atrial fibrillation with mild RVR. Heart rate 114. * Chest xray COPD and mild pulmonary interstitial edema. There is some pleural reaction and atelectasis at the lung bases which is increased compared to old exam. No definite heart failure. * Laboratory data: WBC 5.5. Hemoglobin 11.1. Platelet count 148. INR 2.8. Sodium 139. Potassium 4.5. BUN 47. Creatinine 1.25. Troponin 0.054. 0.050. 0.044. ProBNP 4750. * Current home cardiac medications include Lipitor 10 mg at night, Lasix 40 mg daily, valsartan 40 mg twice a day as needed, warfarin 2 mg at night, Bisoprolol 5mg daily * Most recent echocardiogram obtained in November 2021 revealing ejection fraction 25-30%, outer aortic regurgitation, moderate tricuspid regurgitation, status post tricuspid valve repair, bioprosthetic mitral valve 01/16/2022 Patient examined this morning to bedside. Patient states his breathing is significantly improved today. Patient remains on IV Lasix. Creatinine 1.48. Fluid balance over the last 24 hours is -2564 mL. Telemetry reveals atrial fibrillation with a heart rate in the 80s to 90s, occasionally jumping over 100 but not sustaining. INR today 4.3. Consult with hospice is currently pending. 01/17/2022 Patient examined this morning at the bedside. Patient denies chest pain or pressure. Denies SOB. Vital signs are stable. INR today 5.7. PHYSICAL EXAM: VITAL SIGNS: Reviewed. GENERAL: Well-developed in no acute distress. HEENT: Head is normocephalic. Pupils are equal, round. Sclerae anicteric. Mucous membranes of the mouth are moist. Neck supple. No JVD or thyromegaly LUNGS: Respirations even and unlabored. Lungs diminished bilaterally. HEART: Irregular rate and rhythm. S1 and S2 heard. Systolic murmur noted ABDOMEN: Soft. Nondistended. Nontender. EXTREMITIES: Normal range of motion. No clubbing or cyanosis. Peripheral pulses intact. No lower extremity edema NEUROLOGIC: Awake and alert. Oriented x 3. ASSESSMENT: Acute COPD exacerbation Acute on chronic heart failure with reduced ejection fraction, EF 25-30% History of COPD with home oxygen use Paroxysmal atrial fibrillation, anticoagulated with warfarin Abnormal troponins, flat, not suggestive of acute coronary syndrome History of nonischemic cardiomyopathy History of mitral valve replacement, 2014 History of tricuspid valve repair, 2014 History of AAA Hyperlipidemia PLAN: Continue current cardiac medications Give Vitamin K 5mg oral. Repeat INR in AM. No Coumadin tonight. Patient to enter into hospice per internal medicine Further recommendations pending patient's course Nurse practitioner note has been reviewed by physician. Signing provider agrees with the documented findings, assessment, and plan of care. Objective - Vital Signs Vital signs: Vital Signs Temp 97.7 F 01/17/22 08:00 Pulse 91 01/17/22 08:00 Resp 16 01/17/22 08:00 BP 104/53 01/17/22 08:00 Pulse Ox 99 01/17/22 08:00 FiO2 Intake & Output 01/16/22 01/17/22 01/17/22 18:59 06:59 18:59 Intake Total 696 118 Output Total 850 800 Balance -154 -800 118 Intake: Oral 696 118 Output: Urine 850 800 Other: Voiding Method Indwelling Catheter Indwelling Catheter Indwelling Catheter - Labs CBC & Chem 7: 01/14/22 08:50 01/17/22 07:23 Labs: Abnormal Lab Results - Last 24 Hours (Table) 01/16/22 01/16/22 01/16/22 Range/Units 11:52 16:28 20:44 PT (9.0-12.0) sec INR (<1.2) Carbon Dioxide (22-30) mmol/L BUN (9-20) mg/dL Creatinine (0.66-1.25) mg/dL Glucose (74-99) mg/dL POC Glucose (mg/dL) 142 H 121 H 162 H (70-110) mg/dL Calcium (8.4-10.2) mg/dL 01/17/22 01/17/22 01/17/22 Range/Units 06:18 07:23 07:23 PT 57.5 H (9.0-12.0) sec INR 5.7 H* (<1.2) Carbon Dioxide 36 H (22-30) mmol/L BUN 56 H (9-20) mg/dL Creatinine 1.71 H (0.66-1.25) mg/dL Glucose 121 H (74-99) mg/dL POC Glucose (mg/dL) 136 H (70-110) mg/dL Calcium 8.2 L (8.4-10.2) mg/dL
[2022-01-17 11:41] LABS: Glucose,Whole Blood 152 mg/dL (70-110)
--- NOTE | 2022-01-17 13:14 | P.PN ---
Subjective Progress Note Date: 01/17/22 Principal diagnosis: Shortness of breath. Pulmonary consult dated 01/15/2022. This is an 81-year-old male, who was evaluated in the emergency department, on January 13. The patient apparently was admitted with a diagnosis of shortness of breath. He apparently has a history of COPD, heart failure, atrial fibrillation, and chronic medical debility. He complained of weakness, and recently just got out of rehabilitation. He apparently lives by himself at home, and has declined significantly, in recent days and weeks. He was admitted with a diagnosis of urinary tract infection, COPD exacerbation, debility, and weakness. We are just being consulted today, on the . The patient is currently on oxygen, at 2 L. He is quite tearful and upset. He apparently has asked to speak to hospice. His white count is 5.5, hemoglobin 11.1, hematocrit 34.6, and platelet count 248,000. PTT is 27.8 with an INR of 2.8. Sodium 139, potassium 4.5, chlorides 101, CO2 32, BUN 47, and creatinine 1.25. Troponins were 0.050 and 0.044. Chest x-rays consistent with emphysematous changes, and some mild interstitial edema. In addition, there are small effusions. His admission N-terminal proBNP was elevated at 4750. Progress note dated 01/16/2022. The patient is again seen today in room 363. He was seen yesterday in consultation. He appears to be in better spirits today. He remains on 4 L of oxygen. He's not receiving any IV fluids. I believe he has made a decision to go into hospice. PTT is 42.8 with an INR 1.3. Sodium 138, potassium 3.9, chlorides 100, CO2 35, BUN 56, creatinine 1.48. Calcium is 8. Progress note dated 01/17/2022. 81-year-old male seen in room 363. Currently, he's on 4 L of oxygen. He is not receiving any IV fluids. The patient does not want to take breathing treatments anymore. The patient is a DO NOT RESUSCITATE patient. For that reason, we'll discontinue his albuterol and ipratropium bromide breathing treatments, Symbicort, steroids, and antibiotics. They are probably unnecessary at this point. The patient's PTT is 57.5 with an INR of 5.7. Sodium 138, potassium 4.4, chlorides 99, 6, BUN 56, creatinine 1.71. Calcium is 8.2. Objective - Vital Signs Vital signs: Vital Signs Temp 97.7 F 01/17/22 08:00 Pulse 91 01/17/22 08:00 Resp 16 01/17/22 08:00 BP 104/53 01/17/22 08:00 Pulse Ox 99 01/17/22 08:00 FiO2 Intake & Output 01/16/22 01/17/22 01/17/22 18:59 06:59 18:59 Intake Total 696 118 Output Total 850 800 Balance -154 -800 118 Intake: Oral 696 118 Output: Urine 850 800 Other: Voiding Method Indwelling Catheter Indwelling Catheter Indwelling Catheter - Exam No acute distress, oriented 3. Currently on 4 L of oxygen. Saturations are 100 %. No audible wheezing, or use of accessory muscles. HEENT examination is grossly unremarkable. Neck supple. Full range of motion. No adenopathy thyromegaly or neck vein d istention. Cardiovascular examination reveals regular rhythm rate. S1-S2 normal. No S3 or S4. No discernible murmur noted. Heart sounds are distant. Heart rate 91 bpm. Lungs reveal scattered bilateral rhonchi and basilar crackles. No wheezes. Breath sounds equal. Saturations 100 % on 4 L. Abdomen soft bowel sounds are heard. No masses or tenderness. Extremities are intact. No cyanosis clubbing or edema. Skin is without rash or lesion. Neurologic examination is brief but nonfocal. - Labs CBC & Chem 7: 01/14/22 08:50 01/17/22 07:23 Labs: Abnormal Lab Results - Last 24 Hours (Table) 01/16/22 01/16/22 01/17/22 Range/Units 16:28 20:44 06:18 PT (9.0-12.0) sec INR (<1.2) Carbon Dioxide (22-30) mmol/L BUN (9-20) mg/dL Creatinine (0.66-1.25) mg/dL Glucose (74-99) mg/dL POC Glucose (mg/dL) 121 H 162 H 136 H (70-110) mg/dL Calcium (8.4-10.2) mg/dL 01/17/22 01/17/22 01/17/22 Range/Units 07:23 07:23 11:39 PT 57.5 H (9.0-12.0) sec INR 5.7 H* (<1.2) Carbon Dioxide 36 H (22-30) mmol/L BUN 56 H (9-20) mg/dL Creatinine 1.71 H (0.66-1.25) mg/dL Glucose 121 H (74-99) mg/dL POC Glucose (mg/dL) 152 H (70-110) mg/dL Calcium 8.2 L (8.4-10.2) mg/dL Microbiology - Last 24 Hours (Table) 01/17/22 07:51 Sputum Culture - Preliminary Sputum Assessment and Plan Assessment: Severe shortness of breath, likely multifactorial, in part related to fluid overload/CHF, and COPD exacerbation. Chronic hypoxemic respiratory failure. Acute urinary tract infection. History of atrial fibrillation. History of CHF. History of GI bleed. Hyperlipidemia. History of pneumonia. History of stage III chronic kidney disease. History of peripheral vascular disease. History of benign prostatic hypertrophy. Status post stent placement, abdominal aortic aneurysm. History of mitral valve replacement, and repair of bicuspid aortic valve. Plan: Plan dated 01/15/2022. The patient is currently on Rocephin for suspected urinary tract infection. The patient is also on Symbicort, and updrafts. The patient is also receiving Solu- Medrol every 6 hours. The patient is receiving Lasix 40 mg IV every 12 hours. Additional recommendations and suggestions are forthcoming. We will continue to follow and make recommendations along the way. Prognosis is guarded. He was very tearful today. He apparently has asked to speak to hospice. Plan dated 01/16/2022. The patient is doing better today. He is much less depressed or sad. The patient apparently has decided to go into hospice. He remains on 4 L of oxygen. His breathing is improved. She is diuresing very nicely. Labs, x-rays, and medications are reviewed. We will continue to follow make recommendations along the way. Prognosis is guarded. Plan dated 01/17/2022. Breathing treatments, antibiotics, and steroids will be discontinued. The patient does not want to take them anymore. In fact, he expresses the desire to . If not or ready accomplished, the patient should have a palliative care/hospice consultation. We will see the patient moving forward only as needed. No additional recommendations are made. If the patient changes his mind, please let us know. Time with Patient: Less than 30
[2022-01-17] MEDS: SERTRALINE 50 MG TAB PO SCH (14:01)
[2022-01-17 16:39] LABS: Glucose,Whole Blood 176 mg/dL (70-110)
--- NOTE | 2022-01-17 17:36 | P.PN ---
Subjective Progress Note Date: 01/16/22 H&P Date: 01/14/22 Chief Complaint: Shortness of breath Mr. Pereira is an 81-year-old male patient well-known to my practice, past medical history remarkable for heart failure COPD atrial fibrillation chronic debility pulmonary hypertension has been admitted several times in the last 3 months with acute exacerbation of COPD and heart failure. This gentleman lives by himself and his debility is is making it more difficult for him to recover and subsequently take care of himself. He is currently being admitted because is a afraid to be by himself, he is currently O2 dependent steroid- dependent COPD and heart failure, he feels unsafe at home by himself due to his weakness. Considerations for assisted living placement would be probably best. Currently complains of mild to moderate shortness of breath but no cough no chest pain and no abdominal pain no nausea no vomiting no diarrhea no other acute complaints at this time and no current history of flu, covid 19, infectious disease related or other exposures. 01/15/2022 short of breath, persists with breathing, discouraged and teary-eyed. Telemetry atrial fibrillation with heart rates in the 1 teens. Denies any chest pain, palpitations. Creatinine 1.25. 01/16/2022 maintaining O2 sats in the 90s on 4 L nasal cannula. Nieces 2 at the bedside, patient requesting hospice. Felder catheter placed for urinary retention, diuresing well on Lasix IV push with 24-hour I&O reflecting a negative fluid balance. creatinine worsening, increased to 1.48. Telemetry atrial fibrillation, controlled ventricular rate. Denies chest pain, palpitations. Coumadin per pharmacy dosing, INR 4.3. Objective - Vital Signs Vital signs: Vital Signs Temp 97.9 F 01/16/22 14:00 Pulse 100 01/16/22 14:00 Resp 20 01/16/22 14:00 BP 117/61 01/16/22 14:00 Pulse Ox 99 01/16/22 14:00 FiO2 Intake & Output 01/15/22 01/16/22 01/16/22 18:59 06:59 18:59 Intake Total 236 696 Output Total 1800 1000 850 Balance -1564 -1000 -154 Intake: Oral 236 696 Output: Urine 1800 1000 850 Straight 900 Uretheral (Felder) 1000 Other: Voiding Method Toilet Indwelling Catheter Indwelling Catheter # Voids 1 - Exam General: Cachectic, awake, alert and oriented times 3. Teary-eyed HEENT: [PERRL. EOMI. No pharyngeal erythema or exudate.] Neck: [Supple, no JVD. Cardiac: [Heart irregularly irregular, grade 3 systolic ejection murmur Lungs: [Diminished breath sounds bilaterally with scattered rhonchi and fine bibasilar crackles Abdomen: Soft, nontender, nondistended, No organomegaly. Positive Bowel sounds. Extremes: No edema no cyanosis no claudication normal pulses] Skin: Warm and dry, No rash. Neurologic: No lateralizing deficits. CN II - XII grossly intact. - Labs CBC & Chem 7: 01/14/22 08:50 01/17/22 07:23 Labs: Abnormal Lab Results - Last 24 Hours (Table) 01/15/22 01/16/22 01/16/22 Range/Units 20:38 06:06 06:56 PT 42.8 H (9.0-12.0) sec INR 4.3 H (<1.2) Carbon Dioxide (22-30) mmol/L BUN (9-20) mg/dL Creatinine (0.66-1.25) mg/dL Glucose (74-99) mg/dL POC Glucose (mg/dL) 136 H 148 H (70-110) mg/dL Calcium (8.4-10.2) mg/dL 01/16/22 01/16/22 01/16/22 Range/Units 06:56 11:52 16:28 PT (9.0-12.0) sec INR (<1.2) Carbon Dioxide 35 H (22-30) mmol/L BUN 56 H (9-20) mg/dL Creatinine 1.48 H (0.66-1.25) mg/dL Glucose 124 H (74-99) mg/dL POC Glucose (mg/dL) 142 H 121 H (70-110) mg/dL Calcium 8.0 L (8.4-10.2) mg/dL Assessment and Plan Assessment: Acute on chronic hypoxic respiratory failure secondary to acute on chronic CHF exacerbation, systolic dysfunction, acute COPD exacerbation in a patient with EF of 25-30%. Wears 2 L nasal cannula home. Troponins chronically elevated, secondary to pulmonary and renal Mildly elevated BNP, 4750 Severe cardiomyopathy and LV dysfunction with ejection fraction of 25-30%. Moderate to severe pulmonary hypertension, follows at [facility] History of [place] valve per [facility] Paroxysmal atrial fibrillation, anticoagulated with warfarin Chronic renal failure, stage III, baseline around 1.2 History of Right atypical renal cyst, 1.7 cm, bladder diverticulum demonstrating wall irregularity, mucosal lesion not excluded, following-up with urology outpatient Alcohol use, Daily alcohol consumption of 1-2 glasses of wine Mitral valve replacement, prosthetic valve Hypertension Hyperlipidemia PVD with history of stented lower abdominal aortic aneurysm History of nicotine dependence, 3 packs per day History of anxiety Medical debility Possible acute UTI, final urine culture negative. Depression. Plan: Continue on current medication regime ,monitoring and symptomatic treatment. [facility] [place] [facility] discussed .patient interested also in [facility] .Social work consult in place to assist with potential [facility] resources/financial assessment. Zoloft admitted for depression. Diuretics and transitioned to oral, close monitoring of renal function with repeat labs ordered for a.m. Close monitoring of INR -Coumadin dosing as per pharmacy.Prognosis guarded given multiple complex medical issues. The impression and plan of care has been dictated as directed. : I performed a history and examination of this patient, discussed the same with the dictator. I agree with the dictator's note ,documented as a scribe. Any additional findings or plans will be noted.
[2022-01-17] MEDS ORDERED: WARFARIN 0.5 MG TAB PO ONE (18:00)
[2022-01-17 20:14] LABS: Glucose,Whole Blood 109 mg/dL (70-110)
[2022-01-17] MEDS ORDERED: bisacodyL 5 MG TABLET.DR PO SCH (21:00)
[2022-01-17] MEDS: ATORVASTATIN 10 MG TAB PO SCH (21:07)
[2022-01-18] MEDS: LORazepam 1 MG TAB PO PRN ×2 (02:06→10:39)
[2022-01-18 06:03] LABS: Glucose,Whole Blood 105 mg/dL (70-110)
[2022-01-18] MEDS: INSULIN ASPART (NovoLOG) 100 UNIT/ML VIAL SQ SCH ×2 (06:12→13:17)
[2022-01-18] MEDS ORDERED: METOPROLOL TARTRATE 50 MG TAB PO SCH (09:15)
[2022-01-18] MEDS ORDERED: predniSONE 10 MG TAB PO SCH (10:00)
[2022-01-18] MEDS: guaiFENesin 600 MG TABLET.ER PO SCH (10:28)
[2022-01-18] MEDS: FUROSEMIDE 40 MG TAB PO SCH ×2 (10:28→15:36)
[2022-01-18] MEDS: SERTRALINE 50 MG TAB PO SCH (10:28)
[2022-01-18] MEDS: ASCORBIC ACID 500 MG TAB PO SCH (10:29)
[2022-01-18] MEDS: TAMSULOSIN 0.4 MG CAP.ER.24H PO SCH (10:29)
[2022-01-18] MEDS: SPIRONOLACTONE 25 MG TAB PO SCH (10:29)
[2022-01-18] MEDS: CYANOCOBALAMIN 500 MCG TAB PO SCH (10:29)
[2022-01-18 11:35] VITALS: PULSE 68
--- NOTE | 2022-01-18 11:56 | P.PN ---
Subjective Progress Note Date: 01/18/22 HISTORY OF PRESENT ILLNESS: This is a 81-year-old male with a past medical history significant for COPD with home oxygen use, tissue mitral valve replacement and tricuspid valve repair at [facility] in 2014, nonischemic myopathy, paroxysmal atrial fibrillation on Coumadin, hypertension, AAA, former nicotine dependence, pulmonary hypertension, and hyperlipidemia. Patient follows in the office with Dr. Kramer. We have been asked to see the patient in consultation for CHF. Patient examined at the bedside. Patient is admitted to the hospital secondary to acute exacerbation of COPD. Patient reports shortness of breath this morning. Tachypnea present of examination. He denies any chest pain or pressure. Denies any dizziness or lightheadedness. Blood pressure is stable with a recent reading of 120/65. Telemetry reveals atrial for relation with uncontrolled heart rates in the 120s. There is a hospice consult pending. * EKG reveals atrial fibrillation with mild RVR. Heart rate 114. * Chest xray COPD and mild pulmonary interstitial edema. There is some pleural reaction and atelectasis at the lung bases which is increased compared to old exam. No definite heart failure. * Laboratory data: WBC 5.5. Hemoglobin 11.1. Platelet count 148. INR 2.8. Sodium 139. Potassium 4.5. BUN 47. Creatinine 1.25. Troponin 0.054. 0.050. 0.044. ProBNP 4750. * Current home cardiac medications include Lipitor 10 mg at night, Lasix 40 mg daily, valsartan 40 mg twice a day as needed, warfarin 2 mg at night, Bisoprolol 5mg daily * Most recent echocardiogram obtained in November 2021 revealing ejection fraction 25-30%, outer aortic regurgitation, moderate tricuspid regurgitation, status post tricuspid valve repair, bioprosthetic mitral valve 01/16/2022 Patient examined this morning to bedside. Patient states his breathing is significantly improved today. Patient remains on IV Lasix. Creatinine 1.48. Fluid balance over the last 24 hours is -2564 mL. Telemetry reveals atrial fibrillation with a heart rate in the 80s to 90s, occasionally jumping over 100 but not sustaining. INR today 4.3. Consult with hospice is currently pending. 01/17/2022 Patient examined this morning at the bedside. Patient denies chest pain or pressure. Denies SOB. Vital signs are stable. INR today 5.7. 01/18/2022 Patient examined this morning at the bedside. Patient states he did not sleep well last night. He reports having a few bowel movements this morning which has made him slightly short of breath he states. He denies any chest pain or pressure. Vital signs are stable. PHYSICAL EXAM: VITAL SIGNS: Reviewed. GENERAL: Well-developed in no acute distress. HEENT: Head is normocephalic. Pupils are equal, round. Sclerae anicteric. Mucous membranes of the mouth are moist. Neck supple. No JVD or thyromegaly LUNGS: Respirations even and unlabored. Lungs diminished bilaterally. HEART: Irregular rate and rhythm. S1 and S2 heard. Systolic murmur noted ABDOMEN: Soft. Nondistended. Nontender. EXTREMITIES: Normal range of motion. No clubbing or cyanosis. Peripheral pulses intact. No lower extremity edema NEUROLOGIC: Awake and alert. Oriented x 3. ASSESSMENT: Acute COPD exacerbation Acute on chronic heart failure with reduced ejection fraction, EF 25-30% History of COPD with home oxygen use Paroxysmal atrial fibrillation, anticoagulated with warfarin Abnormal troponins, flat, not suggestive of acute coronary syndrome History of nonischemic cardiomyopathy History of mitral valve replacement, 2014 History of tricuspid valve repair, 2014 History of AAA Hyperlipidemia PLAN: Continue current cardiac medications Await repeat of INR this morning Increase metoprolol to 50 mg twice a day Further recommendations pending patient's course Nurse practitioner note has been reviewed by physician. Signing provider agrees with the documented findings, assessment, and plan of care. Objective - Vital Signs Vital signs: Vital Signs Temp 97.4 F L 01/18/22 11:34 Pulse 68 01/18/22 11:34 Resp 21 01/18/22 11:34 BP 127/81 01/18/22 11:34 Pulse Ox 97 01/18/22 11:34 FiO2 Intake & Output 01/17/22 01/18/22 01/18/22 18:59 06:59 18:59 Intake Total 286 0 Output Total 1840 Balance 286 -1840 0 Intake: Intake, IV Titration 50 Amount cefTRIAXone 1 gm In 50 Sodium Chloride 0.9% 50 ml @ 100 mls/hr IVPB Q24HR [facility] Rx#:[id number] Oral 236 0 Output: Urine 1840 Uretheral (Felder) 570 Other: Voiding Method Indwelling Catheter Indwelling Catheter Indwelling Catheter # Voids 1 # Bowel Movements 1 - Labs CBC & Chem 7: 01/14/22 08:50 01/17/22 07:23 Labs: Abnormal Lab Results - Last 24 Hours (Table) 01/17/22 Range/Units 16:37 POC Glucose (mg/dL) 176 H (70-110) mg/dL Microbiology - Last 24 Hours (Table) 01/17/22 07:51 Gram Stain - Preliminary Sputum Sputum Culture - Preliminary
--- NOTE | 2022-01-18 12:12 | P.PN ---
Subjective Progress Note Date: 01/18/22 Pulmonary consult dated 01/15/2022. This is an 81-year-old male, who was evaluated in the emergency department, on January 13. The patient apparently was admitted with a diagnosis of shortness of breath. He apparently has a history of COPD, heart failure, atrial fibrillation, and chronic medical debility. He complained of weakness, and recently just got out of rehabilitation. He apparently lives by himself at home, and has declined significantly, in recent days and weeks. He was admitted with a diagnosis of urinary tract infection, COPD exacerbation, debility, and weakness. We are just being consulted today, on the . The patient is currently on oxygen, at 2 L. He is quite tearful and upset. He apparently has asked to speak to hospice. His white count is 5.5, hemoglobin 11.1, hematocrit 34.6, and platelet count 248,000. PTT is 27.8 with an INR of 2.8. Sodium 139, potassium 4.5, chlorides 101, CO2 32, BUN 47, and creatinine 1.25. Troponins were 0.050 and 0.044. Chest x-rays consistent with emphysematous changes, and some mild interstitial edema. In addition, there are small effusions. His admission N-terminal proBNP was elevated at 4750. Progress note dated 01/16/2022. The patient is again seen today in room 363. He was seen yesterday in consultation. He appears to be in better spirits today. He remains on 4 L of oxygen. He's not receiving any IV fluids. I believe he has made a decision to go into hospice. PTT is 42.8 with an INR 1.3. Sodium 138, potassium 3.9, chlorides 100, CO2 35, BUN 56, creatinine 1.48. Calcium is 8. Progress note dated 01/17/2022. 81-year-old male seen in room 363. Currently, he's on 4 L of oxygen. He is not receiving any IV fluids. The patient does not want to take breathing treatments anymore. The patient is a DO NOT RESUSCITATE patient. For that reason, we'll discontinue his albuterol and ipratropium bromide breathing treatments, Symbicort, steroids, and antibiotics. They are probably unnecessary at this point. The patient's PTT is 57.5 with an INR of 5.7. Sodium 138, potassium 4.4, chlorides 99, 6, BUN 56, creatinine 1.71. Calcium is 8.2. The patient is seen today 01/18/2022 in follow-up on the selective care unit. He is currently resting quite comfortably in bed. No acute respiratory distress. Currently maintaining O2 saturations in the mid 90s on 4 L/m per nasal cannula. Afebrile. Hemodynamically stable. Urine culture revealed no growth. Sputum culture pending. He is continued on ceftriaxone. He remains on oral diuretics. Initiated back on prednisone per his request. Objective - Vital Signs Vital signs: Vital Signs Temp 97.4 F L 01/18/22 11:34 Pulse 68 01/18/22 11:34 Resp 21 01/18/22 11:34 BP 127/81 01/18/22 11:34 Pulse Ox 97 01/18/22 11:34 FiO2 Intake & Output 01/17/22 01/18/22 01/18/22 18:59 06:59 18:59 Intake Total 286 0 Output Total 1840 Balance 286 -1840 0 Intake: Intake, IV Titration 50 Amount cefTRIAXone 1 gm In 50 Sodium Chloride 0.9% 50 ml @ 100 mls/hr IVPB Q24HR [facility] Rx#:[id number] Oral 236 0 Output: Urine 1840 Uretheral (Felder) 570 Other: Voiding Method Indwelling Catheter Indwelling Catheter Indwelling Catheter # Voids 1 # Bowel Movements 1 - Exam GENERAL EXAM: Alert, pleasant frail 81-year-old male patient on 4 L nasal cannula comfortable in no apparent distress. HEAD: Normocephalic. EYES: Normal reaction of pupils, equal size. NOSE: Clear with pink turbinates. THROAT: No erythema or exudates. NECK: No masses, no JVD. CHEST: No chest wall deformity. LUNGS: Equal air entry with crackles in the bilateral bases. CVS: S1 and S2 normal with no audible murmur, regular rhythm. ABDOMEN: No hepatosplenomegaly, normal bowel sounds, no guarding or rigidity. SPINE: No scoliosis or deformity SKIN: No rashes CENTRAL NERVOUS SYSTEM: No focal deficits, tone is normal in all 4 extremities. EXTREMITIES: There is no peripheral edema. No clubbing, no cyanosis. Peripheral pulses are intact. - Labs CBC & Chem 7: 01/14/22 08:50 01/17/22 07:23 Labs: Abnormal Lab Results - Last 24 Hours (Table) 01/17/22 Range/Units 16:37 POC Glucose (mg/dL) 176 H (70-110) mg/dL Microbiology - Last 24 Hours (Table) 01/17/22 07:51 Gram Stain - Preliminary Sputum Sputum Culture - Preliminary Assessment and Plan Assessment: Severe shortness of breath, likely multifactorial, in part related to fluid overload/CHF, and COPD exacerbation. Chronic hypoxemic respiratory failure. Acute urinary tract infection. History of atrial fibrillation. History of CHF. History of GI bleed. Hyperlipidemia. History of pneumonia. History of stage III chronic kidney disease. History of peripheral vascular disease. History of benign prostatic hypertrophy. Status post stent placement, abdominal aortic aneurysm. History of mitral valve replacement, and repair of bicuspid aortic valve. Plan: The patient was seen and evaluated Medications reviewed Currently stable on 4 L nasal cannula DO NOT RESUSCITATE/DO NOT INTUBATE CODE STATUS Overall prognosis remains guarded Plan is for discharge to subacute rehabilitation I have personally seen and examined the patient, performed the documentation and the assessment and plan as written. Number of minutes spent on the visit: 10.
[2022-01-18 12:13] LABS: Basophils % (A) 0 %; Eosinophils % (A) 0 %; HGB 12.6 gm/dL (13.0-17.5); Hypochromasia Slight; Lymphocytes # (A) 0.4 k/uL (1.0-4.8); Lymphocytes % (A) 4 %; MCH 31.7 pg (25.0-35.0); MCHC 32.2 g/dL (31.0-37.0); MCV 98.2 fL (80.0-100.0); Mean Platelet Volume 8.9; Monocytes # (A) 0.4 k/uL (0-1.0); Monocytes % (A) 3 %; Neutrophils # (A) 10.1 k/uL (1.3-7.7); Neutrophils % (A) 92 %; Platelet Count 168 k/uL (150-450); RBC 3.97 m/uL (4.30-5.90); RDW 14.3 % (11.5-15.5)
[2022-01-18 12:34] LABS: INR 1.4 (<1.2)
--- NOTE | 2022-01-18 12:39 | P.PN ---
Subjective Progress Note Date: 01/18/22 H&P Date: 01/14/22 Chief Complaint: Shortness of breath Mr. Pereira is an 81-year-old male patient well-known to my practice, past medical history remarkable for heart failure COPD atrial fibrillation chronic debility pulmonary hypertension has been admitted several times in the last 3 months with acute exacerbation of COPD and heart failure. This gentleman lives by himself and his debility is is making it more difficult for him to recover and subsequently take care of himself. He is currently being admitted because is a afraid to be by himself, he is currently O2 dependent steroid- dependent COPD and heart failure, he feels unsafe at home by himself due to his weakness. Considerations for assisted living placement would be probably best. Currently complains of mild to moderate shortness of breath but no cough no chest pain and no abdominal pain no nausea no vomiting no diarrhea no other acute complaints at this time and no current history of flu, covid 19, infectious disease related or other exposures. 01/15/2022 short of breath, persists with breathing, discouraged and teary-eyed. Telemetry atrial fibrillation with heart rates in the 1 teens. Denies any chest pain, palpitations. Creatinine 1.25. 01/16/2022 maintaining O2 sats in the 90s on 4 L nasal cannula. Nieces 2 at the bedside, patient requesting hospice. Felder catheter placed for urinary retention, diuresing well on Lasix IV push with 24-hour I&O reflecting a negative fluid balance. creatinine worsening, increased to 1.48. Telemetry atrial fibrillation, controlled ventricular rate. Denies chest pain, palpitations. Coumadin per pharmacy dosing, INR 4.3. 01/17/2022 Maintaining O2 sats in the 90s on 4 L nasal cannula. INR elevated at 5.7, recei vickie vitamin K; no bleeding reported. Creatinine increased to 1.71. Patient wishing to proceed to hospice house, financial assessment in progress. Denies chest pain, palpitations. Objective - Vital Signs Vital signs: Vital Signs Temp 97.4 F L 01/17/22 14:00 Pulse 103 H 01/17/22 14:00 Resp 16 01/17/22 14:00 BP 115/68 01/17/22 14:00 Pulse Ox 96 01/17/22 14:00 FiO2 Intake & Output 01/16/22 01/17/22 01/17/22 18:59 06:59 18:59 Intake Total 696 236 Output Total 850 800 Balance -154 -800 236 Intake: Oral 696 236 Output: Urine 850 800 Other: Voiding Method Indwelling Catheter Indwelling Catheter Indwelling Catheter - Exam General: Cachectic, awake, alert and oriented times 3. HEENT: [PERRL. EOMI. No pharyngeal erythema or exudate.] Neck: [Supple, no JVD. Cardiac: [Heart irregularly irregular, grade 3 systolic ejection murmur Lungs: [Diminished breath sounds bilaterally with scattered rhonchi and fine bibasilar crackles Abdomen: Soft, nontender, nondistended, No organomegaly. Positive Bowel sounds. Extremes: No edema no cyanosis no claudication normal pulses] Skin: Warm and dry, No rash. Neurologic: No lateralizing deficits. CN II - XII grossly intact. - Labs CBC & Chem 7: 01/18/22 11:12 01/17/22 07:23 Labs: Abnormal Lab Results - Last 24 Hours (Table) 01/16/22 01/17/22 01/17/22 Range/Units 20:44 06:18 07:23 PT (9.0-12.0) sec INR (<1.2) Carbon Dioxide 36 H (22-30) mmol/L BUN 56 H (9-20) mg/dL Creatinine 1.71 H (0.66-1.25) mg/dL Glucose 121 H (74-99) mg/dL POC Glucose (mg/dL) 162 H 136 H (70-110) mg/dL Calcium 8.2 L (8.4-10.2) mg/dL 01/17/22 01/17/22 01/17/22 Range/Units 07:23 11:39 16:37 PT 57.5 H (9.0-12.0) sec INR 5.7 H* (<1.2) Carbon Dioxide (22-30) mmol/L BUN (9-20) mg/dL Creatinine (0.66-1.25) mg/dL Glucose (74-99) mg/dL POC Glucose (mg/dL) 152 H 176 H (70-110) mg/dL Calcium (8.4-10.2) mg/dL Microbiology - Last 24 Hours (Table) 01/17/22 07:51 Sputum Culture - Preliminary Sputum Assessment and Plan Assessment: Acute on chronic hypoxic respiratory failure secondary to acute on chronic CHF exacerbation, systolic dysfunction, acute COPD exacerbation in a patient with EF of 25-30%. Wears 2 L nasal cannula home. Troponins chronically elevated, secondary to pulmonary and renal Mildly elevated BNP, 4750 Severe cardiomyopathy and LV dysfunction with ejection fraction of 25-30%. Moderate to severe pulmonary hypertension, follows at [facility] History of [place] valve per [facility] Paroxysmal atrial fibrillation, anticoagulated with warfarin Chronic renal failure, stage III, baseline around 1.2 History of Right atypical renal cyst, 1.7 cm, bladder diverticulum demonstrating wall irregularity, mucosal lesion not excluded, following-up with urology outpatient Alcohol use, Daily alcohol consumption of 1-2 glasses of wine Mitral valve replacement, prosthetic valve Hypertension Hyperlipidemia PVD with history of stented lower abdominal aortic aneurysm History of nicotine dependence, 3 packs per day History of anxiety Medical debility Possible acute UTI, final urine culture negative. Depression, Zoloft initiated. Plan: Continue on current medication regime ,monitoring and symptomatic treatment. Diuretics recently transitioned to oral, close monitoring of renal function with repeat labs ordered for a.m. Vitamin K administered, Close monitoring of INR -Coumadin dosing as per pharmacy. Patient now wanting to go to rehab instead of hospice, discharge planning in progress for subacute rehab pending authorization. The impression and plan of care has been dictated as directed. : I performed a history and examination of this patient, discussed the same with the dictator. I agree with the dictator's note ,documented as a scribe. Any additional findings or plans will be noted.
[2022-01-18 12:52] LABS: Calcium 8.2 mg/dL (8.4-10.2); Potassium 4.5 mmol/L (3.5-5.1)
[2022-01-18 13:40] VITALS: BMI 19.9
--- NOTE | 2022-01-18 14:03 | P.DS ---
Providers Date of admission: 01/13/22 18:10 Expected date of discharge: 01/18/22 Attending physician: Tan Bey Consults: 01/15/22 08:39 Consult to Palliative Care Routine Consulting Provider: Jennifer Romo Consult Reason/Comments: Patient request to discuss hospice and comfort care options Do you want consulting provider notified?: Yes 01/15/22 10:04 Consult Physician Routine Consulting Provider: Eduardo Patrick Consult Reason/Comments: chf/copd/pulm hyper/hypoxia Do you want consulting provider notified?: Yes 01/15/22 10:06 Consult Physician Routine Consulting Provider: Jimmy Greer Consult Reason/Comments: CHF/COPD/hypoxia Do you want consulting provider notified?: Yes Primary care physician: Tan Bey [facility] Course: Final Diagnoses: Acute on chronic hypoxic respiratory failure secondary to acute on chronic CHF exacerbation, systolic dysfunction, acute COPD exacerbation in a patient with EF of 25-30%. Wears 2 L nasal cannula home. Troponins chronically elevated, secondary to pulmonary and renal Mildly elevated BNP, 4750 Severe cardiomyopathy and LV dysfunction with ejection fraction of 25-30%. Moderate to severe pulmonary hypertension, follows at [facility] History of [place] valve per [facility] Paroxysmal atrial fibrillation, anticoagulated with warfarin Chronic renal failure, stage III, baseline around 1.2 History of Right atypical renal cyst, 1.7 cm, bladder diverticulum demonstrating wall irregularity, mucosal lesion not excluded, following-up with urology outpatient Alcohol use, Daily alcohol consumption of 1-2 glasses of wine Mitral valve replacement, prosthetic valve Hypertension Hyperlipidemia PVD with history of stented lower abdominal aortic aneurysm History of nicotine dependence, 3 packs per day History of anxiety Medical debility Possible acute UTI, final urine culture negative. Depression, Zoloft initiated. Hospital course:Mr. Pereira is an 81-year-old male patient well-known to my practice, past medical history remarkable for heart failure COPD atrial fibrillation chronic debility pulmonary hypertension has been admitted several times in the last 3 months with acute exacerbation of COPD and heart failure. This gentleman lives by himself and his debility is is making it more difficult for him to recover and subsequently take care of himself. He is currently being admitted because is a afraid to be by himself, he is currently O2 dependent steroid-dependent COPD and heart failure, he feels unsafe at home by himself due to his weakness. Considerations for assisted living placement would be probably best. Currently complains of mild to moderate shortness of breath but no cough no chest pain and no abdominal pain no nausea no vomiting no diarrhea no other acute complaints at this time and no current history of flu, covid 19, infectious disease related or other exposures. 01/15/2022 short of breath, persists with breathing, discouraged and teary-eyed. Telemetry atrial fibrillation with heart rates in the 1 teens. Denies any chest pain, palpitations. Creatinine 1.25. 01/16/2022 maintaining O2 sats in the 90s on 4 L nasal cannula. [place]ie[place] 2 at the bedside, patient requesting hospice. Felder catheter placed for urinary retention, diuresing well on Lasix IV push with 24-hour I&O reflecting a negative fluid balance. creatinine worsening, increased to 1.48. Telemetry atrial fibrillation, controlled ventricular rate. Denies chest pain, palpitations. Coumadin per pharmacy dosing, INR 4.3. 01/17/2022 Maintaining O2 sats in the 90s on 4 L nasal cannula. INR elevated at 5.7, received vitamin K; no bleeding reported. Creatinine increased to 1.71. Patient wishing to proceed to hospice house, financial assessment in progress. Denies chest pain, palpitations. Patient has decided to proceed with rehab at subacute rehab. INR post vitamin K 1.7, renal function improving with creatinine decreased to 1.49. Significant c linical improvement. Cleared by cardiology and pulmonary for discharge. Patient will be discharged to [facility] subacute rehab today in a stable condition with guarded prognosis.Maintaining O2 sats in the 90s on 4 L nasal cannula, sputum culture pending. The impression and plan of care has been dictated as directed. : I performed a history and examination of this patient, discussed the same with the dictator. I agree with the dictator's note ,documented as a scribe. Any additional findings or plans will be noted. Patient Condition at Discharge: Stable Plan - Discharge Summary Discharge Rx Participant: No New Discharge Prescriptions: New Sertraline [Zoloft] 50 mg PO DAILY tab Spironolactone [Aldactone] 12.5 mg PO DAILY tab bisacodyL [Dulcolax] 10 mg PO HS tab Furosemide [Lasix] 40 mg PO BID@0900,1600 tab Metoprolol Tartrate [Lopressor] 50 mg PO BID tab predniSONE 10 mg PO DIRECTED 30 Days #48 tab Acetaminophen Tab [Tylenol] 650 mg PO Q6HR PRN tab PRN Reason: Fever And/ Or Pain INSULIN LISPRO (HumaLOG) [humaLOG] 0 unit SQ ACHS #10 ml cefUROXime axetiL [Ceftin] 500 mg PO BID 5 Days #10 tab Continue Tamsulosin [Flomax] 0.8 mg PO DAILY Atorvastatin [Lipitor] 10 mg PO HS Fluticasone Propion/Salmeterol [Advair 100-50 Diskus] 1 puff IN RT-BID Valsartan 40 mg PO BID PRN PRN Reason: BP OVER 110 Ipratropium-Albuterol Nebulize [Duoneb 0.5 mg-3 mg/3 ml Soln] 3 ml INHALATION RT-QID Levalbuterol Hfa Inhaler [Xopenex Hfa Inhaler] 2 puff INHALATION RT-Q4H PRN MDD 4X DAILY PRN Reason: Shortness Of Breath Cyanocobalamin (Vitamin B-12) [Vitamin B-12] 1,000 mcg PO DAILY Ascorbic Acid [Vitamin C] 1,000 mg PO DAILY Tiotropium 2.5 Mcg/Puff [Spiriva Respimat 2.5 Mcg] 2 puff INHALATION RT-DAILY guaiFENesin [Mucinex] 600 mg PO Q12H LORazepam [Ativan] 1 mg PO BID #6 tab Changed Warfarin Sodium [Jantoven] 1 mg PO HS #0 Discontinued Bisoprolol Fumarate 5 mg PO DAILY 12 Days #12 tablet Furosemide [Lasix] 40 mg PO DAILY predniSONE 10 mg PO DAILY Discharge Medication List Tamsulosin [Flomax] 0.8 mg PO DAILY 11/21/17 [History] Atorvastatin [Lipitor] 10 mg PO HS 07/20/21 [History] Fluticasone Propion/Salmeterol [Advair 100-50 Diskus] 1 puff IN RT-BID 07/20/21 [History] Levalbuterol Hfa Inhaler [Xopenex Hfa Inhaler] 2 puff INHALATION RT-Q4H PRN MDD 4X DAILY 07/20/21 [History] Ascorbic Acid [Vitamin C] 1,000 mg PO DAILY 11/28/21 [History] Cyanocobalamin (Vitamin B-12) [Vitamin B-12] 1,000 mcg PO DAILY 11/28/21 [History] Tiotropium 2.5 Mcg/Puff [Spiriva Respimat 2.5 Mcg] 2 puff INHALATION RT-DAILY 11/28/21 [History] Valsartan 40 mg PO BID PRN 12/17/21 [History] Ipratropium-Albuterol Nebulize [Duoneb 0.5 mg-3 mg/3 ml Soln] 3 ml INHALATION RT-QID 01/13/22 [History] guaiFENesin [Mucinex] 600 mg PO Q12H 01/13/22 [History] Acetaminophen Tab [Tylenol] 650 mg PO Q6HR PRN tab 01/18/22 [Rx] Furosemide [Lasix] 40 mg PO BID@0900,1600 tab 01/18/22 [Rx] INSULIN LISPRO (HumaLOG) [humaLOG] 0 unit SQ ACHS #10 ml 01/18/22 [Rx] LORazepam [Ativan] 1 mg PO BID #6 tab 01/18/22 [Rx] Metoprolol Tartrate [Lopressor] 50 mg PO BID tab 01/18/22 [Rx] Sertraline [Zoloft] 50 mg PO DAILY tab 01/18/22 [Rx] Spironolactone [Aldactone] 12.5 mg PO DAILY tab 01/18/22 [Rx] Warfarin Sodium [Jantoven] 1 mg PO HS #0 01/18/22 [Rx] bisacodyL [Dulcolax] 10 mg PO HS tab 01/18/22 [Rx] cefUROXime axetiL [Ceftin] 500 mg PO BID 5 Days #10 tab 01/18/22 [Rx] predniSONE 10 mg PO DIRECTED 30 Days #48 tab 01/18/22 [Rx] Follow up Appointment(s)/Referral(s): Sae Rodriguez MD [STAFF PHYSICIAN] - 3 Days Activity/Diet/Wound Care/Special Instructions: [facility] subacute rehab CBC, BMP in 3 days Daily INR Discharge Disposition: TRANSFER TO SNF/ECF
[2022-01-18 15:38] VITALS: BP 108/59; RESP 20; TEMP 98.4
[2022-01-18] MEDS ORDERED: WARFARIN 1 MG TAB PO ONE (18:00)
== END 2022-01-18 16:06 | DRG 291 ==
LOC: EC 14:41 → 3SCARD 18:10
PROVIDERS: ADMIT Family Medicine; ATTEND Family Medicine
DX: I13.0 Hypertensive heart and chronic kidney disease with heart failure and stage 1 through stage 4 chronic kidney disease, or unspecified chronic kidney disease (principal); I50.23 Acute on chronic systolic (congestive) heart failure; J96.21 Acute and chronic respiratory failure with hypoxia; J44.1 Chronic obstructive pulmonary disease with (acute) exacerbation; I48.20 Chronic atrial fibrillation, unspecified; N39.0 Urinary tract infection, site not specified; J98.11 Atelectasis; I27.20 Pulmonary hypertension, unspecified; D63.1 Anemia in chronic kidney disease; I73.9 Peripheral vascular disease, unspecified; Z95.828 Presence of other vascular implants and grafts; F32.A Depression, unspecified; N18.30 Chronic kidney disease, stage 3 unspecified; I42.8 Other cardiomyopathies; I48.0 Paroxysmal atrial fibrillation; E78.5 Hyperlipidemia, unspecified; F41.9 Anxiety disorder, unspecified; Z51.5 Encounter for palliative care; Z66 Do not resuscitate; R77.8 Other specified abnormalities of plasma proteins; F10.90 Alcohol use, unspecified, uncomplicated; R79.1 Abnormal coagulation profile; N40.0 Benign prostatic hyperplasia without lower urinary tract symptoms; Z20.822 Contact with and (suspected) exposure to COVID-19; Z60.2 Problems related to living alone; Z74.2 Need for assistance at home and no other household member able to render care; R53.81 Other malaise; Z99.81 Dependence on supplemental oxygen; Z95.3 Presence of xenogenic heart valve; Z79.01 Long term (current) use of anticoagulants; Z86.79 Personal history of other diseases of the circulatory system; Z79.899 Other long term (current) drug therapy; Z79.51 Long term (current) use of inhaled steroids; Z79.52 Long term (current) use of systemic steroids; Z87.891 Personal history of nicotine dependence; Z87.01 Personal history of pneumonia (recurrent); Z28.311 Partially vaccinated for COVID-19; Z88.8 Allergy status to other drugs, medicaments and biological substances; Z91.048 Other nonmedicinal substance allergy status
CPT/HCPCS: 36415; 71046; 80048; 80053; 81001; 83036; 83605; 83735; 83880; 84484; 85025; 85610; 85730; 87070; 87086; 87205; 87502; 87635; 93005; 94640; 94760; 96365; 96366; 96375; 96376; 99285

== ENCOUNTER 2022-03-19 10:40 | Inpatient (IN) | payer MEDICARE, BC ==
--- NOTE | 2022-03-19 11:00 | ED ---
Fall HPI - General Chief Complaint: Fall Stated Complaint: fall Time Seen by Provider: 03/19/22 10:41 Source: patient, EMS, RN notes reviewed Mode of arrival: EMS Limitations: no limitations - History of Present Illness Initial Comments: This is an 81-year-old male who presents to the emergency department for a fall. Patient states that he was walking around his house without his walker, and subsequently slipped on the floor. States that he fell backwards onto the floor and hit his back on the fireplace. He subsequently acquired a skin tear to his back. However, the patient also has a laceration to the bridge of his nose. Denies wearing any glasses. It is not clear how he sustained this laceration. He is on warfarin. He is unsure if he hit his head, however he was placed in a c-collar. Denies any loss of consciousness. States that he does live alone, he did just become established with a visiting nurse, however she only comes every few days and he does not believe that this is enough. He was discharged from [facility] for acute rehabilitation 3 days ago. Denies any dizziness, chest pain, or shortness of breath prior to the fall. The back pain near the skin tear is the most bothersome at this time. Denies any fevers, chills, sore throat, cough, dyspnea, chest pain, palpitations, abdominal pain, nausea, vomiting, or diarrhea. MD Complaint: fall Fall From: standing Fall Witnessed: yes, by family Place Fall Occurred: home Loss of Consciousness: none Location: head, face, back Context: tripped/slipped - Related Data Home Medications Medication Instructions Recorded Confirmed Tamsulosin [Flomax] 0.8 mg PO DAILY 11/21/17 03/19/22 Atorvastatin [Lipitor] 10 mg PO HS 07/20/21 03/19/22 Fluticasone Propion/Salmeterol 1 puff IN RT-BID 07/20/21 03/19/22 [Advair 100-50 Diskus] Levalbuterol Hfa Inhaler [Xopenex 2 puff INHALATION RT-Q4H PRN MDD 07/20/21 03/19/22 Hfa Inhaler] 4x daily Cyanocobalamin (Vitamin B-12) 1,000 mcg PO DAILY 11/28/21 03/19/22 [Vitamin B-12] Tiotropium 2.5 Mcg/Puff [Spiriva 2 puff INHALATION RT-DAILY 11/28/21 03/19/22 Respimat 2.5 Mcg] Ipratropium-Albuterol Nebulize 3 ml INHALATION RT-QID 01/13/22 03/19/22 [Duoneb 0.5 mg-3 mg/3 ml Soln] Calcium Carbonate/Vitamin D3 1 tab PO DAILY 03/19/22 03/19/22 [Calcium 500-Vit D3 5 Mcg (200 Iu)] Furosemide [Lasix] 60 mg PO HS 03/19/22 03/19/22 Furosemide [Lasix] 80 mg PO QAM 03/19/22 03/19/22 Warfarin Sodium [Jantoven] 2 mg PO HS 03/19/22 03/19/22 Previous Rx's Medication Instructions Recorded Metoprolol Tartrate [Lopressor] 50 mg PO BID tab 01/18/22 Allergies Allergy/AdvReac Type Severity Reaction Status Date / Time empagliflozin Allergy Dyspnea Verified 03/19/22 16:28 [From Jardiance] pain med (can't remember Allergy Hallucinati Uncoded 01/13/22 14:50 name) ons Patches on chest Allergy Swelling Uncoded 01/13/22 14:50 Review of Systems ROS Statement: Those systems with pertinent positive or pertinent negative responses have been documented in the HPI. ROS Other: All systems not noted in ROS Statement are negative. Past Medical History Past Medical History: Atrial Fibrillation, Heart Failure, COPD, GI Bleed, Hyperlipidemia, Pneumonia, Prostate Disorder, Renal Disease, Skin Disorder, Vascular Disorder Additional Past Medical History / Comment(s): GI bleed, gastritis, gastric ectasia, CKD stage III, past abdominal aortic aneurysm/had stent placed, varicosities, PVD, past shingellis and occasionally will have R flank nerve pain, BPH. History of Any Multi-Drug Resistant Organisms: None Reported Past Surgical History: Cardiac Valve Replacement, Cholecystectomy, Heart Catheterization Additional Past Surgical History / Comment(s): Stent placed for lower abd aortic aneurysym, mitral valve replacement/bicuspid repair, EGD with ablation, colonoscopy, excision L cheek lesion/mass and lesion from scalp/all benign, Past Anesthesia/Blood Transfusion Reactions: No Reported Reaction Date of Last Stent Placement:: 2015 Past Psychological History: Anxiety Smoking Status: Former smoker Past Alcohol Use History: Daily Past Drug Use History: None Reported - Past Family History Mother Family Medical History: Myocardial Infarction (HI) Additional Family Medical History / Comment(s): at a young age. Father Family Medical History: Hypertension General Exam Limitations: no limitations General appearance: alert, in no apparent distress ENT exam: Present: other (2 cm laceration to the bridge of the nose. Bleeding controlled.) Respiratory exam: Present: normal lung sounds bilaterally. Absent: respiratory distress, wheezes, rales, rhonchi, stridor Cardiovascular Exam: Present: regular rate, normal rhythm, normal heart sounds. Absent: systolic murmur, diastolic murmur, rubs, gallop, clicks GI/Abdominal exam: Present: soft, normal bowel sounds. Absent: distended, tenderness, guarding, rebound, rigid Neurological exam: Present: alert, oriented X3, CN II-XII intact Psychiatric exam: Present: normal affect, normal mood Skin exam: Present: other (10 cm skin tear to the right side of the mid back. No active bleeding.) Course Vital Signs 03/19/22 03/19/22 03/19/22 10:41 11:47 16:41 Temperature 97.1 F L Pulse Rate 96 91 91 Respiratory 18 16 18 Rate Blood Pressure 127/76 121/66 110/54 O2 Sat by Pulse 94 L 99 98 Oximetry Medical Decision Making - Medical Decision Making This is an 81-year-old male who presents to the emergency department for a fall. Was pt. sent in by a medical professional or institution? @ -No Did you speak to anyone other than the patient for history? @ -EMS Did you review nursing and triage notes? @ -Agree, accurate with regards to the patient's symptoms. Were old charts reviewed? @ -No Differential Diagnosis? @ -Not applicable X-rays interpreted by me (1pt min.)? @ XR of the thoracic and lumbar spine obtained. My interpretation of the XR of the lumbar spine reveals no acute fractures or dislocations. My interpretation of the thoracic spine x-ray reveals a T6 compression fracture. However, the radiologist notes that this was present on his chest x-ray in January. CT interpreted by me (1pt min.)? @ -CT scan of the brain and c-spine obtained. My interpretation of the CT scan of the brain identifies no acute intracranial hemorrhage or skull fractures. My interpretation of the CT scan of the c-spine reveals no acute fractures or dislocations. What testing was considered but not performed? (CT, X-rays, U/S, labs)? Why? @ -None What meds were considered but not given? Why? @ -None Did you discuss the management of the patient with other professionals? @ -Dr. Rodriguez, who accepts the patient for admission. Case management, who is reaching out to [facility] for the patient to return to rehab. Did you reconcile home meds? @ -Yes Was smoking cessation discussed for >3mins.? @ -No Was critical care preformed (if so, how long)? @ -No Were there social determinants of health that impacted care today? How? (Homelessness, low income, unemployed, alcoholism, drug addiction, transportation, low edu. Level, literacy, decrease access to med. care, fdc, rehab)? @ -No Was there de-escalation of care discussed even if they declined? (Discuss DNR or withdrawal of care, Hospice)? @ -No What co-morbidities impacted this encounter? (DM, HTN, Smoking, COPD, CAD, Cancer, CVA, Hep., AIDS, mental health diagnosis, sleep apnea, morbid obesity)? @ -Atrial fibrillation, hx of GI bleed, HLD, COPD. Was patient admitted / discharged? @ -Admitted. Computed tomography scan of the brain and C-spine obtained revealing no acute irregularities. X-ray of the thoracic and lumbar spine obtained. Patient has a severe T6 compression fracture, however this was present on imaging from January and appears stable per the radiology interpretation. The nurses and ER technicians tried 3 times to get the patient up to walk around, however he continued to refuse. States that he is unable to ambulate due to the pain. Tylenol administered for pain, which he states is very helpful when lying still, however the pain is exacerbated whenever he tries to move. He declines any stronger pain medication. Case management reached out to [facility] and the patient will likely return there tomorrow. Patient is agreeable to this. PT/OT consulted as well. Instructed the patient to avoid ambulating without his walker in the future. Drug Therapy requiring intensive monitoring for toxicity (Heparin, Nitro, Insulin, Cardizem)? @ -None Were any procedures done? @ -None Diagnosis/symptom? @ -Frequent falls Acute, or Chronic, or Acute on Chronic? @ -Acute on chronic Uncomplicated (without systemic symptoms) or Complicated (systemic symptoms)? @ -Complicated Side effects of treatment? @ -None Exacerbation, Progression, or Severe Exacerbation] @ -Not applicable Poses a threat to life or bodily function? @ -Yes This case was discussed in detail with the attending ED physician, Dr. Thomas. Presentation, findings, and treatment plan discussed in detail as well. - Lab Data Result diagrams: 03/19/22 16:18 03/19/22 16:18 Lab Results 03/19/22 03/19/22 03/19/22 Range/Units 16:18 16:18 16:18 WBC 7.7 (3.8-10.6) k/uL RBC 3.38 L (4.30-5.90) m/uL Hgb 10.7 L (13.0-17.5) gm/dL Hct 32.5 L (39.0-53.0) % MCV 96.0 (80.0-100.0) fL MCH 31.7 (25.0-35.0) pg MCHC 33.0 (31.0-37.0) g/dL RDW 14.3 (11.5-15.5) % Plt Count 158 (150-450) k/uL MPV 7.9 Neutrophils % 83 % Lymphocytes % 8 % Monocytes % 6 % Eosinophils % 1 % Basophils % 0 % Neutrophils # 6.4 (1.3-7.7) k/uL Lymphocytes # 0.6 L (1.0-4.8) k/uL Monocytes # 0.5 (0-1.0) k/uL Eosinophils # 0.1 (0-0.7) k/uL Basophils # 0.0 (0-0.2) k/uL Sodium 138 (137-145) mmol/L Potassium 3.1 L (3.5-5.1) mmol/L Chloride 103 (98-107) mmol/L Carbon Dioxide 32 H (22-30) mmol/L Anion Gap 3 mmol/L BUN 36 H (9-20) mg/dL Creatinine 0.80 (0.66-1.25) mg/dL Est GFR (CKD-EPI)AfAm >90 (>60 ml/min/1.73 sqM) Est GFR (CKD-EPI)NonAf 85 (>60 ml/min/1.73 sqM) Glucose 83 (74-99) mg/dL Calcium 8.1 L (8.4-10.2) mg/dL Total Bilirubin 0.7 (0.2-1.3) mg/dL AST 25 (17-59) U/L ALT 25 (4-49) U/L Alkaline Phosphatase 48 (38-126) U/L Total Protein 5.4 L (6.3-8.2) g/dL Albumin 3.1 L (3.5-5.0) g/dL Urine Color Light Yellow Urine Appearance Cloudy (Clear) Urine pH 6.5 (5.0-8.0) Ur Specific Fosters 1.012 (1.001-1.035) Urine Protein Negative (Negative) Urine Glucose (UA) Negative (Negative) Urine Ketones Negative (Negative) Urine Blood Negative (Negative) Urine Nitrite Positive (Negative) Urine Bilirubin Negative (Negative) Urine Urobilinogen <2.0 (<2.0) mg/dL Ur Leukocyte Esterase Large H (Negative) Urine RBC 3 (0-5) /hpf Urine WBC 112 H (0-5) /hpf Hyaline Casts 8 H (0-2) /lpf Urine Mucus Rare H (None) /hpf Urine Yeast (Budding) Few H (None) /hpf - Radiology Data Radiology results: report reviewed, image reviewed Disposition Clinical Impression: Frequent falls, Compression fracture of T6 vertebra Disposition: ADMITTED IP TO THIS HOSP
[2022-03-19] MEDS ORDERED: ACETAMINOPHEN TAB 325 MG TAB PO STA ×2 (11:09→15:55)
--- NOTE | 2022-03-19 11:34 | CT ---
EXAMINATION TYPE: CT brain redd xiong DATE OF EXAM: 03/19/2022 COMPARISON: None HISTORY: Fall CT DLP: 1398.1 mGycm, Automated exposure control for dose reduction was used. CONTRAST: Patient injected with 0 mL of Isovue 300. CT of the brain is performed utilizing 3 mm thick sections through the posterior fossa and 3 mm thick sections through the remaining calvarium. Study is performed within 24 hours of arrival to the hospital. No abnormal hyperdensity is present to suggest an acute intracranial hemorrhage. No mass lesion is evident. No acute infarcts are evident. Ventricles and sulci are prominent for the patient age. Paranasal sinuses and mastoid air cells within the [id number] are clear. IMPRESSIONS: 1. No acute intracranial process. 2. Atrophy CT cervical spine. COMPARISON: None CT of the cervical spine is performed in the axial plane at 2 mm thick sections. Reconstructed image s in the coronal, and sagittal plane are reviewed on the computer. No acute fractures are evident. There may be a mild retrolisthesis of C4 posterior on C5. Minimal anterolisthesis of C3 on C4 may be present. There is loss of disc height throughout the cervical spine. This appears most severe at C3-4 and C5-6 . Some endplate spurring is present C5-6 with mild anterior thecal sac compression. No spinal canal s tenosis is present. Vertebral body heights are preserved. No spinal canal stenosis is evident. Note is made of advanced facet degenerative changes on the right at C2-3. Significant foraminal narro wing however is not evident. There is facet hypertrophy and uncovertebral joint hypertrophy on the ri ght at C3-4 with severe right foraminal stenosis. Uncovertebral joint hypertrophy is present at C5-6 with bilateral foraminal stenosis. Severe emphysematous changes are evident within the visualized lung apices. IMPRESSIONS: 1. Degenerative disc changes, greatest at C3-4 and C5-6. 2. Spondylolisthesis at C3-4 and C5-6 discussed above. 3. Foraminal stenosis predominantly on the right as discussed above. 4. No acute osseous abnormality. Follow-up can be performed as clinically indicated
--- NOTE | 2022-03-19 12:26 | XR ---
EXAM TYPE: LUMBAR SPINE X RAY SERIES COMPARISON: NONE HISTORY: Pain TECHNIQUE: 4 views are submitted. FINDINGS: Alignment is anatomic. The pedicles are intact. The transverse processes are intact. There is no p leural postsurgical changes seen involving the heart and within the aorta. There is diffuse osteopenia with multilevel moderate degenerative disc disease. There is severe degen erative disc disease and facet arthropathy L5-S1. Suspect bilateral foraminal encroachment at this le magdalene. IMPRESSION: 1. Diffuse osteopenia with multilevel moderate degenerative disc disease and facet arthropathy most m arked at L5-S1.
--- NOTE | 2022-03-19 12:31 | XR ---
EXAMINATION TYPE: XR thoracic spine complete DATE OF EXAM: 03/19/2022 COMPARISON: Chest x-ray 01/13/2022, 12/17/2009 HISTORY: Pain TECHNIQUE: 3 views submitted FINDINGS: Alignment is anatomic. There is no compression deformities. Use osteopenia. There is postsurgical ch anges throughout the aorta and the stylet was suggestive of valvular replacement surgery. Metallic st ents are also seen overlying the left heart border. There appears to be severe compression fracture a t the approximate level of T6. There is hyperinflation of the lungs is compatible with COPD and there is persistent patchy infiltrates at both lung bases previously noted. IMPRESSION: 1. Severe compression fracture approximately T6 level appears stable from chest x-ray of 01/13/2022 b ut was not present on the chest x-ray of 12/17/2021. Therefore the severe complete compression fractu re at this level is chronic but occurred some point between December 17, 2021 and January 13, 2022. 2. COPD with persistent patchy lower lobe infiltrate. Chronic interstitial lung disease. Correlate cl inically.
[2022-03-19] MEDS ORDERED: NALOXONE 0.4 MG/ML 1 ML VIAL IV PRN (16:08)
[2022-03-19] MEDS ORDERED: ONDANSETRON 4 MG/2 ML VIAL IVP PRN (16:08)
[2022-03-19 16:43] LABS: Basophils % (A) 0 %; Eosinophils # (A) 0.1 k/uL (0-0.7); Eosinophils % (A) 1 %; HCT 32.5 % (39.0-53.0); HGB 10.7 gm/dL (13.0-17.5); Lymphocytes # (A) 0.6 k/uL (1.0-4.8); Lymphocytes % (A) 8 %; MCH 31.7 pg (25.0-35.0); Mean Platelet Volume 7.9; Monocytes # (A) 0.5 k/uL (0-1.0); Monocytes % (A) 6 %; Neutrophils # (A) 6.4 k/uL (1.3-7.7); Neutrophils % (A) 83 %; Platelet Count 158 k/uL (150-450); RBC 3.38 m/uL (4.30-5.90); RDW 14.3 % (11.5-15.5); WBC 7.7 k/uL (3.8-10.6)
[2022-03-19 16:52] LABS: ALT 25 U/L (4-49); AST 25 U/L (17-59); African American GFR (CKD) >90 (>60 ml/min/1.73 sqM); Albumin 3.1 g/dL (3.5-5.0); Alkaline Phosphatase 48 U/L (38-126); Anion Gap 3 mmol/L; Blood Urea Nitrogen 36 mg/dL (9-20); Calcium 8.1 mg/dL (8.4-10.2); Carbon Dioxide 32 mmol/L (22-30); Chloride 103 mmol/L (98-107); Glucose 83 mg/dL (74-99); Non-African American GFR(CKD) 85 (>60 ml/min/1.73 sqM); Potassium 3.1 mmol/L (3.5-5.1); Sodium 138 mmol/L (137-145); Total Bilirubin 0.7 mg/dL (0.2-1.3); Total Protein 5.4 g/dL (6.3-8.2)
[2022-03-19 16:53] LABS: Appearance,Urine Cloudy (Clear); Bilirubin,Urine Negative (Negative); Color,Urine Light Yellow; Glucose,Urine (UA) Negative (Negative); Ketones,Urine Negative (Negative); PH, Urine 6.5 (5.0-8.0); Protein,Urine Negative (Negative); Specific Gravity,Urine 1.012 (1.001-1.035)
[2022-03-19 16:54] LABS: Blood,Urine Negative (Negative); Budding Yeast,Urine Few /hpf; Hyaline Casts,Urine 8 /lpf (0-2); Leukocyte Esterase,Urine Large (Negative); Mucus,Urine Rare /hpf; Nitrite,Urine Positive (Negative); RBC,Urine 3 /hpf (0-5); Urobilinogen,Urine <2.0 mg/dL (<2.0); WBC,Urine 112 /hpf (0-5)
[2022-03-19] MEDS ORDERED: ALBUTEROL NEBULIZED 2.5 MG/3 ML INHALATION PRN (17:04)
[2022-03-19] MEDS ORDERED: Potassium Replacement Protocol 1 EACH MISC MISCELLANE PRN (17:47)
[2022-03-19 17:53] LABS: INR 2.6 (<1.2); Partial Thromboplastin Time 30.9 sec (22.0-30.0); Prothrombin Time 25.1 sec (9.0-12.0)
[2022-03-19] MEDS: POTASSIUM CHLORIDE ER 20 MEQ TAB.ER PO SCH ×2 (18:16→19:53)
[2022-03-19] MEDS: IPRATROPIUM-ALBUTEROL 3 ML NEB INHALATION SCH (18:52)
[2022-03-19] MEDS: SYMBICORT 80-4.5 MCG INHALER INHALATION SCH (18:58)
[2022-03-19] MEDS ORDERED: LORazepam 1 MG TAB PO PRN (20:00)
[2022-03-19] MEDS ORDERED: SYMBICORT 80-4.5 MCG INHALER INHALATION SCH (20:00)
[2022-03-19] MEDS: FUROSEMIDE 20 MG TAB PO SCH (20:11)
[2022-03-19] MEDS: LORazepam 1 MG TAB PO SCH (20:11)
[2022-03-19] MEDS: ATORVASTATIN 10 MG TAB PO SCH (20:12)
[2022-03-19] MEDS: METOPROLOL TARTRATE 50 MG TAB PO SCH (20:12)
[2022-03-19] MEDS ORDERED: WARFARIN 2 MG TAB PO SCH (21:00)
[2022-03-19] MEDS: ACETAMINOPHEN TAB 325 MG TAB PO PRN (23:12)
[2022-03-20] MEDS: ACETAMINOPHEN TAB 325 MG TAB PO PRN ×3 (05:57→18:11)
[2022-03-20 06:50] LABS: INR 3.1 (<1.2); Prothrombin Time 30.3 sec (9.0-12.0)
[2022-03-20] MEDS: SYMBICORT 80-4.5 MCG INHALER INHALATION SCH ×2 (07:28→21:35)
[2022-03-20] MEDS: IPRATROPIUM-ALBUTEROL 3 ML NEB INHALATION SCH ×4 (07:28→21:35)
[2022-03-20] MEDS ORDERED: NON FORMULARY DRUG (Tiotropium 2.5 Mcg/Puff 10 PUFF Each) INHALATION SCH (08:00)
[2022-03-20] MEDS: TAMSULOSIN 0.4 MG CAP.ER.24H PO SCH (08:05)
[2022-03-20] MEDS: FUROSEMIDE 20 MG TAB PO SCH ×2 (08:05→21:18)
[2022-03-20] MEDS: CALCIUM CARB-VIT D 500 MG-5 MCG TAB PO SCH (08:05)
[2022-03-20] MEDS: METOPROLOL TARTRATE 50 MG TAB PO SCH ×2 (08:06→21:18)
[2022-03-20] MEDS: CYANOCOBALAMIN 500 MCG TAB PO SCH (08:06)
[2022-03-20] MEDS: LORazepam 1 MG TAB PO SCH ×3 (08:06→21:18)
--- NOTE | 2022-03-20 09:07 | P.CNOR ---
History of Present Illness - [facility] Consult date: 03/20/22 Requesting physician: Sae Rodriguez Consult reason: other (Right-sided lower rib pain status post fall on to firep lace) History of present illness: Patient is a very pleasant 81-year-old male who is seen and examined at the bedside for possible compression fracture deformity. Patient has a significant medical history which includes heart failure, COPD, atrial fibrillation, history of mitral valve replacement and repair of bicuspid aortic valve, history of stent placement for abdominal aortic aneurysm, chronic debility pulmonary hypertension, and urinary tract infection. He currently has a Felder catheter intact. He is currently on anticoagulation with Coumadin. He was recently admitted to the hospital for 5 days with discharged to a rehabilitation facility. He states he was recently discharged home. He states he had been doing well and after approximately 3 days of being discharged home he stopped using his walker at home. While not using his walker he sustained a fall in his home falling against a fireplace on to his right lower ribs. He states he hit the fireplace hard. Since that time he has significant pain over his right lower ribs and does have evidence of a right lower rib wound/laceration. Currently, this wound is covered. At the bedside, he states he does not experience any thoracic or lumbar pain. He has no pain at the midline. We did discuss he has evidence of a T6 compression fracture deformity. He does not remember injuring himself previously but denies any pain in his thoracic spine. His pain is significant over his right lateral ribs. His right-sided rib pain was significant with deep breathing yesterday but states this has improved. He denies any lower extremity weakness or radiculopathy. He does have significant bruising over the bilateral lower extremities which has worsened lately. He is on anticoagulation. He has a nasal cannula intact. He continues to be seeing exam by medical providers for his multiple medical diagnoses. Past Medical History Past Medical History: Atrial Fibrillation, Heart Failure, COPD, GI Bleed, Hyperlipidemia, Pneumonia, Prostate Disorder, Renal Disease, Skin Disorder, Vascular Disorder Additional Past Medical History / Comment(s): GI bleed, gastritis, gastric ectasia, CKD stage III, past abdominal aortic aneurysm/had stent placed, varicosities, PVD, past shingellis and occasionally will have R flank nerve pain, BPH. History of Any Multi-Drug Resistant Organisms: None Reported Past Surgical History: Cardiac Valve Replacement, Cholecystectomy, Heart Catheterization Additional Past Surgical History / Comment(s): Stent placed for lower abd aortic aneurysym, mitral valve replacement/bicuspid repair, EGD with ablation, colonoscopy, excision L cheek lesion/mass and lesion from scalp/all benign, Past Anesthesia/Blood Transfusion Reactions: No Reported Reaction Date of Last Stent Placement:: 2015 Past Psychological History: Anxiety Additional Psychological History / Comment(s): Pt resides alone. He has home oxygen. He drives. Smoking Status: Former smoker Past Alcohol Use History: Daily Additional Past Alcohol Use History / Comment(s): Pt started smoking in 1952 and quit in 1986, Pt drinks 1 glass of wine a day. Past Drug Use History: None Reported - Past Family History Mother Family Medical History: Myocardial Infarction ([place]) Additional Family Medical History / Comment(s): at a young age. Father Family Medical History: Hypertension Medications and Allergies Home Medications Medication Instructions Recorded Confirmed Type Tamsulosin [Flomax] 0.8 mg PO DAILY 11/21/17 03/19/22 History Atorvastatin [Lipitor] 10 mg PO HS 07/20/21 03/19/22 History Fluticasone Propion/Salmeterol 1 puff IN RT-BID 07/20/21 03/19/22 History [Advair 100-50 Diskus] Levalbuterol Hfa Inhaler [Xopenex 2 puff INHALATION RT-Q4H PRN MDD 07/20/21 0 03/19/22 History Hfa Inhaler] 4x daily Cyanocobalamin (Vitamin B-12) 1,000 mcg PO DAILY 11/28/21 03/19/22 History [Vitamin B-12] Tiotropium 2.5 Mcg/Puff [Spiriva 2 puff INHALATION RT-DAILY 11/28/21 03/19/22 History Respimat 2.5 Mcg] Ipratropium-Albuterol Nebulize 3 ml INHALATION RT-QID 01/13/22 03/19/22 History [Duoneb 0.5 mg-3 mg/3 ml Soln] Metoprolol Tartrate [Lopressor] 50 mg PO BID tab 01/18/22 03/19/22 Rx Calcium Carbonate/Vitamin D3 1 tab PO DAILY 03/19/22 03/19/22 History [Calcium 500-Vit D3 5 Mcg (200 Iu)] Furosemide [Lasix] 60 mg PO HS 03/19/22 03/19/22 History Furosemide [Lasix] 80 mg PO QAM 03/19/22 03/19/22 History Warfarin Sodium [Jantoven] 2 mg PO HS 03/19/22 03/19/22 History Allergies Allergy/AdvReac Type Severity Reaction Status Date / Time empagliflozin Allergy Dyspnea Verified 03/19/22 16:28 [From Jardiance] pain med (can't remember Allergy Hallucinati Uncoded 01/13/22 14:50 name) ons Patches on chest Allergy Swelling Uncoded 01/13/22 14:50 Physical Examination Physical exam: Patient is awake, alert, and oriented 3 Vital signs stable Adequate chest excursion with deep inspiration and expiration; nasal cannula intact Examination of thoracic and lumbar spine reveals skin is intact with no abrasions, lacerations, or bruises; no erythema, purulence or signs of infection No pain with palpation along the midline of the thoracic or lumbar spines There is evidence of a dressing over the right lower ribs which is taken down so skin can be visualized during physical examination Evidence of a large superficial laceration/wound over the right lateral ribs extending towards the lumbar spine Significant pain with palpation over the right lateral lower ribs Increased pain at the right lateral lower ribs with increased movement Dorsiflexion, plantarflexion, and extensor hallucis longus positive sustained bilaterally Patient is able to lie flat and perform active range of motion of his bilateral lower extremities independently without difficulty Straight leg test negative bilateral lower extremities Negative Lasegue's test bilaterally No signs or symptoms of DVT; no calf pain Evidence of significant bruising over the bilateral lower extremities Felder catheter intact Neurovascularly intact Results Pertinent studies: X-rays of the thoracic spine and lumbar spine taken on 03/19/2022: Evidence of T6 compression fracture deformity severe with 90% height loss which appears fairly stable without significant change as compared to previous chest x-ray imaging taken on 01/13/2022; this fracture was not visible on chest x-ray imaging from December 2021; no other compression fracture deformities identified within the thoracic or lumbar spine; increase in thoracic kyphosis at the site of the T6 compression fracture; evidence of sternal wires; evidence of cardiac valve replacement; lumbar degenerative scoliosis centered at L3-4; L5-S1 severe degenerative disc disease; lumbar anterior osteophytic spurring - Labs Labs: Abnormal Lab Results - Last 24 Hours (Table) 03/19/22 03/19/22 03/19/22 Range/Units 16:18 16:18 16:18 RBC 3.38 L (4.30-5.90) m/uL Hgb 10.7 L (13.0-17.5) gm/dL Hct 32.5 L (39.0-53.0) % Lymphocytes # 0.6 L (1.0-4.8) k/uL PT (9.0-12.0) sec INR (<1.2) APTT (22.0-30.0) sec Potassium 3.1 L (3.5-5.1) mmol/L Carbon Dioxide 32 H (22-30) mmol/L BUN 36 H (9-20) mg/dL Calcium 8.1 L (8.4-10.2) mg/dL Total Protein 5.4 L (6.3-8.2) g/dL Albumin 3.1 L (3.5-5.0) g/dL Ur Leukocyte Esterase Large H (Negative) Urine WBC 112 H (0-5) /hpf Hyaline Casts 8 H (0-2) /lpf Urine Mucus Rare H (None) /hpf Urine Yeast (Budding) Few H (None) /hpf 03/19/22 03/20/22 Range/Units 17:29 06:15 RBC (4.30-5.90) m/uL Hgb (13.0-17.5) gm/dL Hct (39.0-53.0) % Lymphocytes # (1.0-4.8) k/uL PT 25.1 H 30.3 H (9.0-12.0) sec INR 2.6 H 3.1 H (<1.2) APTT 30.9 H (22.0-30.0) sec Potassium (3.5-5.1) mmol/L Carbon Dioxide (22-30) mmol/L BUN (9-20) mg/dL Calcium (8.4-10.2) mg/dL Total Protein (6.3-8.2) g/dL Albumin (3.5-5.0) g/dL Ur Leukocyte Esterase (Negative) Urine WBC (0-5) /hpf Hyaline Casts (0-2) /lpf Urine Mucus (None) /hpf Urine Yeast (Budding) (None) /hpf Microbiology - Last 24 Hours (Table) 03/19/22 16:18 Urine Culture - Preliminary Urine,Clean Catch H & H 03/19/22 Range/Units 16:18 Hgb 10.7 L (13.0-17.5) gm/dL Hct 32.5 L (39.0-53.0) % Coagulation 03/19/22 03/20/22 Range/Units 17:29 06:15 INR 2.6 H 3.1 H (<1.2) Result Diagrams: 03/19/22 16:18 03/19/22 20:44 Assessment and Plan Assessment: Assessment: Chronic T6 compression fracture deformity with approximately 90% height loss Acute right-sided lower rib pain Status post fall against fireplace Acute right-sided lower rib laceration/wound Lumbar degenerative scoliosis centered at L3-4 L5-S1 severe degenerative disc disease Lumbar anterior osteophytic spurring COPD Heart failure History of mitral valve replacement and repair of bicuspid aortic valve History of stent placement for abdominal aortic aneurysm Atrial fibrillation Chronic anticoagulation Chronic debility pulmonary hypertension Urinary tract infection with Felder catheter and intact History of stage III chronic kidney disease Hyperlipidemia Unsteady gait; use his walker in the outpatient setting (1) Status post fall Current Visit: Yes Status: Acute Code(s): Z91.81 - HISTORY OF FALLING SNOMED Code(s): 351591533 (2) Atrial fibrillation Current Visit: Yes Status: Acute Code(s): I48.91 - UNSPECIFIED ATRIAL FIBRILLATION SNOMED Code(s): 82604167 (3) Heart valve replaced Current Visit: Yes Status: Acute Code(s): Z95.2 - PRESENCE OF PROSTHETIC HEA RT VALVE SNOMED Code(s): 334054091 (4) Stage III chronic kidney disease Current Visit: Yes Status: Acute Code(s): N18.30 - CHRONIC KIDNEY DISEASE, STAGE 3 UNSPECIFIED SNOMED Code(s): 432877293 (5) Hyperlipidemia Current Visit: Yes Status: Acute Code(s): E78.5 - HYPERLIPIDEMIA, UNSPECIFIED SNOMED Code(s): 19255053 (6) DDD (degenerative disc disease), lumbosacral Current Visit: Yes Status: Acute Code(s): M51.37 - OTHER INTERVERTEBRAL DISC DEGENERATION, LUMBOSACRAL REGION SNOMED Code(s): 53178551 (7) Degenerative scoliosis in adult patient Current Visit: Yes Status: Acute Code(s): M41.50 - OTHER SECONDARY SCOLIOSIS, SITE UNSPECIFIED SNOMED Code(s): 848688567 (8) Facet arthropathy, lumbosacral Current Visit: Yes Status: Acute Code(s): M47.817 - SPONDYLS W/O MYELOPATHY OR RADICULOPATHY, LUMBOSACR REGION SNOMED Code(s): 321724706 (9) Rib pain on right side Current Visit: Yes Status: Acute Code(s): R07.81 - PLEURODYNIA SNOMED Code(s): 025307180 (10) History of endovascular stent graft for abdominal aortic aneurysm (AAA) Current Visit: Yes Status: Acute Code(s): Z95.828 - PRESENCE OF OTHER VASCULAR IMPLANTS AND GRAFTS SNOMED Code(s): 921198094109213 (11) Compression fracture of T6 vertebra Current Visit: Yes Status: Acute Code(s): S22.050A - WEDGE COMPRESSION FRACTURE OF T5-T6 VERTEBRA, INIT SNOMED Code(s): 521344512 (12) COPD (chronic obstructive pulmonary disease) Current Visit: No Status: Acute Code(s): J44.9 - CHRONIC OBSTRUCTIVE PULMONARY DISEASE, UNSPECIFIED SNOMED Code(s): 05016742 (13) Congestive heart failure Current Visit: No Status: Acute Code(s): I50.9 - HEART FAILURE, UNSPECIFIED SNOMED Code(s): 73830306 (14) sagger soak current use of anticoagulant therapy Current Visit: No Status: Acute Code(s): Z79.01 - DETENTION (CURRENT) USE OF ANTICOAGULANTS SNOMED Code(s): 857565376 (15) Pulmonary hypertension Current Visit: No Status: Acute Code(s): I27.20 - PULMONARY HYPERTENSION, UNSPECIFIED SNOMED Code(s): 96680804 (16) UTI (urinary tract infection) Current Visit: No Status: Acute Code(s): N39.0 - URINARY TRACT INFECTION, SITE NOT SPECIFIED SNOMED Code(s): 00720477 Plan: Plan: 1. Patient has been experiencing significant right lateral lower rib pain after falling against his fireplace onto his right ribs. He does have evidence of a superficial wound/laceration over these right lower ribs. There is currently a dressing intact. We did discuss the continued continue with dressing changes as needed. His pain is significant with palpation over his right lower ribs and with increased movement. He does not experience any pain along his thoracic spine or lumbar spine. There is no pain with palpation or percussion over the previously identified T6 compression fracture deformity. Reviewing of imaging shows that this compression fracture of T6 was present on x-ray imaging taken on 01/13/2022. Compared to that imaging, the T6 fracture has remained stable and has not had significant change. There is severe compression of T6 with approximately 90% height loss. He is asymptomatic in this regard. At this time, it appears his T6 compression fracture deformity is healed and is chronic in nature. I do not think he needs bracing for this T6 fracture. I would not prescribe a TLSO brace. He is not experiencing any lower extremity weakness or radiculopathy bilaterally. He has not had any neurologic change in his lower extremities. I do not think he needs specific treatment in regards to his thoracic or lumbar spine. However, patient has significant right-sided lower rib pain with evidence of a wound/laceration over the right lower ribs requiring a dressing. He has increased pain with mobility at his right lower ribs. Currently, we'll plan to obtain x-rays of the right ribs for further evaluation of possible fracture. We will plan to follow-up to discuss the right rib x-rays once completed and reviewed. We did discuss it is okay for him to mobilize with the assistance of therapy to his tolerance. We did discuss in significant detail based on his symptoms, current imaging kim ilable, and significant medical diagnoses, we would not currently planned for any sort of acute surgical intervention in regards to his thoracic spine or lumbar spine. We did discuss if he has right-sided rib fractures, we would currently plan to have him work through conservative treatment to allow appropriate time for his fractures to heal appropriately. Patient states based on his past medical history, he would like to avoid any surgical intervention. 2. Patient will continue to be seen and examined by other medical providers for his other medical diagnoses. Patient is most likely being discharged to a rehabilitation facility when cleared for discharge. Time with Patient: Greater than 30 (Including obtaining history, physical examination, reviewing of imaging, and dictation.)
--- NOTE | 2022-03-20 11:07 | XR ---
EXAMINATION TYPE: XR ribs RT w pa chest xray DATE OF EXAM: 03/20/2022 COMPARISON: NONE TECHNIQUE: Frontal view of the chest and 4 views of the ribs are submitted. HISTORY: Pain FINDINGS: Coarsened interstitium and subsegmental consolidation involving the lung bases similar to prior chest x-ray. There does appear to be a cortical offset involving the lateral margin of the right 10th and ninth ribs. Calcified granuloma incidentally noted. Surgical clips in the right upper quadrant. Post surgical change involving the aorta. Cardiac valve replacement surgery. IMPRESSION: 1. A mildly displaced acute fractures lateral margin right ninth and 10th ribs. 2. Findings suggest chronic interstitial pulmonary fibrosis with COPD and chronic granulomatous disea se.
[2022-03-20] MEDS: PANTOPRAZOLE 40 MG/10 ML VIAL IVP SCH (12:30)
[2022-03-20] MEDS ORDERED: IPRATROPIUM-ALBUTEROL 3 ML NEB INHALATION PRN (13:37)
--- NOTE | 2022-03-20 14:06 | P.HPIM ---
History of Present Illness H&P Date: 03/20/22 Chief Complaint: status post fall Mr. Pereira is an 81-year-old male patient, past medical history remarkable for heart failure COPD atrial fibrillation chronic debility, pulmonary hypertension has been admitted several times in the last 3 months with acute exacerbation of COPD and heart failure admitted status post fall with significant right-sided lower rib pain. Recently discharged from [facility] subacute rehab. this past Saturday/4 days ago. Ambulating without using his walker, slipped and fell, landing on fireplace, sustained superficial laceration over the bridge of his nose, skin tear, approximately 10 cm over her right lateral posterior rib cage. Denies loss of consciousness. Denies incontinence of urine or bowel movement. Denies any chest pain, palpitations or shortness of breath prior to the fall. Denies lightheadedness, dizziness or focal deficits. Complains of rib cage pain, currently pursed lip breathing and denies chest pain or palpitations. CT brain /C-spine reporting no acute intracranial process, severe emphysematous changes evident within visualized lung apices,atrophy, degenerative disc changes greatest at C3-4 and C5-6, spondyloisthesis of C3-4 and C5-6, foraminal stenosis predominantly on the right, no acute osseous abnorm ality. Thoracic spine. Severe compression fracture at approximately T6 level appears stable in comparison to prior x-ray, severe complete compression fracture at this level is chronic, COPD with persistent patchy lower lobe infiltrate, chronic interstitial disease .Evaluated by orthopedic surgery reporting T6 compression fracture [id number] chronic in nature and does not recommend a TLSO brace. Lumbar x-ray series reported diffuse osteopenia with multilevel moderate degenerative disc disease and facet arthropathy most marked at L5-S1 .Right rib x-rays reported minimally displaced acute fractures lateral margin right ninth and 10th. Afebrile, normal WBC. UA positive, culture pending. Potassium 3.1, supplemented , follow-up lab 3.7. INR 3.1. Hemoglobin 10.7, platelets 158. BUN 36, creatinine 0.8. Review of Systems ROS Statement: Those systems with pertinent positive or pertinent negative responses have been documented in the HPI. ROS Other: All systems not noted in ROS Statement are negative. Past Medical History Past Medical History: Atrial Fibrillation, Heart Failure, COPD, GI Bleed, Hyperlipidemia, Pneumonia, Prostate Disorder, Renal Disease, Skin Disorder, Vascular Disorder Additional Past Medical History / Comment(s): GI bleed, gastritis, gastric ectasia, CKD stage III, past abdominal aortic aneurysm/had stent placed, varicosities, PVD, past shingellis and occasionally will have R flank nerve pain, BPH. History of Any Multi-Drug Resistant Organisms: None Reported Past Surgical History: Cardiac Valve Replacement, Cholecystectomy, Heart Catheterization Additional Past Surgical History / Comment(s): Stent placed for lower abd aortic aneurysym, mitral valve replacement/bicuspid repair, EGD with ablation, colonoscopy, excision L cheek lesion/mass and lesion from scalp/all benign, Past Anesthesia/Blood Transfusion Reactions: No Reported Reaction Date of Last Stent Placement:: 2015 Past Psychological History: Anxiety Additional Psychological History / Comment(s): Pt resides alone. He has home oxygen. He drives. Smoking Status: Former smoker Past Alcohol Use History: Daily Additional Past Alcohol Use History / Comment(s): Pt started smoking in 1952 and quit in 1986, Pt drinks 1 glass of wine a day. Past Drug Use History: None Reported - Past Family History Mother Family Medical History: Myocardial Infarction ([place]) Additional Family Medical History / Comment(s): at a young age. Father Family Medical History: Hypertension Medications and Allergies Home Medications Medication Instructions Recorded Confirmed Type Tamsulosin [Flomax] 0.8 mg PO DAILY 11/21/17 03/19/22 History Atorvastatin [Lipitor] 10 mg PO HS 07/20/21 03/19/22 History Fluticasone Propion/Salmeterol 1 puff IN RT-BID 07/20/21 03/19/22 History [Advair 100-50 Diskus] Levalbuterol Hfa Inhaler [Xopenex 2 puff INHALATION RT-Q4H PRN MDD 07/20/21 03/19/22 History Hfa Inhaler] 4x daily Cyanocobalamin (Vitamin B-12) 1,000 mcg PO DAILY 11/28/21 03/19/22 History [Vitamin B-12] Tiotropium 2.5 Mcg/Puff [Spiriva 2 puff INHALATION RT-DAILY 11/28/21 03/19/22 History Respimat 2.5 Mcg] Ipratropium-Albuterol Nebulize 3 ml INHALATION RT-QID 01/13/22 03/19/22 History [Duoneb 0.5 mg-3 mg/3 ml Soln] Metoprolol Tartrate [Lopressor] 50 mg PO BID tab 01/18/22 03/19/22 Rx Calcium Carbonate/Vitamin D3 1 tab PO DAILY 03/19/22 03/19/22 History [Calcium 500-Vit D3 5 Mcg (200 Iu)] Furosemide [Lasix] 60 mg PO HS 03/19/22 03/19/22 History Furosemide [Lasix] 80 mg PO QAM 03/19/22 03/19/22 History Warfarin Sodium [Jantoven] 2 mg PO HS 03/19/22 03/19/22 History Allergies Allergy/AdvReac Type Severity Reaction Status Date / Time empagliflozin Allergy Dyspnea Verified 03/19/22 16:28 [From Jardiance] pain med (can't remember Allergy Hallucinati Uncoded 01/13/22 14:50 name) ons Patches on chest Allergy Swelling Uncoded 01/13/22 14:50 Physical Exam Vitals: Vital Signs Temp Pulse Pulse Resp BP BP Pulse Ox 03/20/22 11:26 96 03/20/22 11:13 100 03/20/22 11:10 23 03/20/22 08:06 18 03/20/22 07:42 92 03/20/22 07:28 88 03/20/22 06:44 98 F 91 18 118/67 93 L 03/20/22 02:36 98.6 F 87 17 95/52 95 03/19/22 20:00 52 L 18 03/19/22 19:13 98.4 F 52 L 19 120/56 93 L 03/19/22 19:00 104 H 03/19/22 18:54 100 03/19/22 18:24 97.6 F 101 H 18 135/73 100 03/19/22 18:18 22 03/19/22 16:41 91 18 110/54 98 Intake and Output 03/19/22 03/20/22 03/20/22 22:59 06:59 14:59 Intake Total 540 200 Output Total 25 Balance -25 540 200 Intake: Oral 540 200 Output: Urine 25 Other: Voiding Method Indwelling Catheter Indwelling Catheter Weight 58.967 kg - Exam General: Cachectic, awake, alert and oriented times 3. Pursed lip breathing HEENT: [PERRL. EOMI. No pharyngeal erythema or exudate. Superficial Laceration/Scab over the bridge of his nose] Neck: [Supple, no JVD. Cardiac: [Heart irregularly irregular, grade 3 systolic ejection murmur Lungs: [Diminished breath sounds bilaterally with scattered rhonchi and fine bibasilar crackles Abdomen: Soft, nontender, nondistended, No organomegaly. Positive Bowel sounds. Extremes: No edema no cyanosis no claudication normal pulses] Skin: Warm and dry, right lateral rib cage with superficial skin tear, refer to nursing measurements/picture Neurologic: No lateralizing deficits. CN II - XII grossly intact. Results CBC & Chem 7: 03/19/22 16:18 03/19/22 20:44 Labs: Abnormal Lab Results - Last 24 Hours (Table) 03/19/22 03/19/22 03/19/22 Range/Units 16:18 16:18 16:18 RBC 3.38 L (4.30-5.90) m/uL Hgb 10.7 L (13.0-17.5) gm/dL Hct 32.5 L (39.0-53.0) % Lymphocytes # 0.6 L (1.0-4.8) k/uL PT (9.0-12.0) sec INR (<1.2) APTT (22.0-30.0) sec Potassium 3.1 L (3.5-5.1) mmol/L Carbon Dioxide 32 H (22-30) mmol/L BUN 36 H (9-20) mg/dL Calcium 8.1 L (8.4-10.2) mg/dL Total Protein 5.4 L (6.3-8.2) g/dL Albumin 3.1 L (3.5-5.0) g/dL Ur Leukocyte Esterase Large H (Negative) Urine WBC 112 H (0-5) /hpf Hyaline Casts 8 H (0-2) /lpf Urine Mucus Rare H (None) /hpf Urine Yeast (Budding) Few H (None) /hpf 03/19/22 03/20/22 Range/Units 17:29 06:15 RBC (4.30-5.90) m/uL Hgb (13.0-17.5) gm/dL Hct (39.0-53.0) % Lymphocytes # (1.0-4.8) k/uL PT 25.1 H 30.3 H (9.0-12.0) sec INR 2.6 H 3.1 H (<1.2) APTT 30.9 H (22.0-30.0) sec Potassium (3.5-5.1) mmol/L Carbon Dioxide (22-30) mmol/L BUN (9-20) mg/dL Calcium (8.4-10.2) mg/dL Total Protein (6.3-8.2) g/dL Albumin (3.5-5.0) g/dL Ur Leukocyte Esterase (Negative) Urine WBC (0-5) /hpf Hyaline Casts (0-2) /lpf Urine Mucus (None) /hpf Urine Yeast (Budding) (None) /hpf Microbiology - Last 24 Hours (Table) 03/19/22 16:18 Urine Culture - Preliminary Urine,Clean Catch Thrombosis Risk Factor Assmnt - Choose All That Apply Any of the Below Risk Factors Present?: Yes Each Risk Factor Represents 3 Points: Age 75 years or older Other congenital or acquired thrombophilia - If yes, enter type in comment: No Thrombosis Risk Factor Assessment Total Risk Factor Score: 3 Thrombosis Risk Factor Assessment Level: Moderate Risk Assessment and Plan Assessment: Medical debility with gait dysfunction, status post fall-not using walker, sustaining mildly displaced acute fractures right lateral ninth and 10th ribs with skin tear and acute right lower rib pain Chronic T6 compression fracture Lumbar Degenerative disc disease, severe, L5-S1 Acute UTI, final urine culture pending chronic hypoxic respiratory failure secondary to acute on chronic CHF exacerbation, systolic dysfunction, acute COPD exacerbation in a patient with EF of 25-30%. Wears 2 L nasal cannula home. Severe cardiomyopathy and LV dysfunction with ejection fraction of 25-30%. Moderate to severe pulmonary hypertension, follows at [facility] History of [place] valve per [facility] Paroxysmal atrial fibrillation, anticoagulated with warfarin Chronic renal failure, stage III, baseline around 1.2 History of Right atypical renal cyst, 1.7 cm, bladder diverticulum demonstrating wall irregularity, mucosal lesion not excluded, following-up with urology outpatient Alcohol use, Daily alcohol consumption of 1-2 glasses of wine Mitral valve replacement, prosthetic valve Hypertension Hyperlipidemia PVD with history of stented lower abdominal aortic aneurysm History of nicotine dependence, 3 packs per day History of anxiety Depression, Zoloft Plan: Continue on current medication regime ,monitoring and symptomatic treatment. Aggressive pulmonary toileting with Nebulized bronchodilators. Urine culture pending. [place] 3 times a week with optifoam bordered dressing. Evaluated by orthopedic surgery, recommendations noted and appreciated. Pain management. Anticoagulated on Coumadin with pharmacy dosing. PT/OT, case management to assist with discharging planning to subacute rehab. The impression and plan of care has been dictated as directed. : I performed a history and examination of this patient, discussed the same with the dictator. I agree with the dictator's note ,documented as a scribe. Any additional findings or plans will be noted.
--- NOTE | 2022-03-20 16:38 | P.GSCN ---
History of Present Illness Consult date: 03/20/22 Reason for Consult: Chronic Felder Requesting physician: Sae Rodriguez History of present illness: The patient is a 81-year-old male with a past medical history significant for A. fib, heart failure, EF 25-30%, pulmonary hypertension, COPD on home O2, A. fib, GI bleed, hyperlipidemia, BPH, and CKD stage III. He has had frequent hospitalizations in the last 3 months with acute exacerbation of COPD and heart failure. He was sent to [facility] for rehab and was just discharged home from this facility 4 days ago. The patient presented to the emergency department on 03/19/22 after a fall at home. He has a chronic Felder in for urinary retention secondary to BPH. The patient states that it was last exchanged approximately 5 weeks ago in rehab. He states that he was told to follow up with urology after his last hospitalization admission. Abdomen/bladder ultrasound from 07/2021 shows a 1.7 cm hypoechoic lesion right kidney does not meet the criteria of a simple cyst. There is a bladder diverticulum which demonstrates wall irregularity. A mucosal lesion was not excluded. Review of Systems - Constitutional Denies chills, Denies fever - EENT Ears, nose, mouth and throat: Denies sore throat - Cardiovascular Denies shortness of breath - Respiratory Denies cough - Genitourinary Denies dysuria Past Medical History Past Medical History: Atrial Fibrillation, Heart Failure, COPD, GI Bleed, Hyperlipidemia, Pneumonia, Prostate Disorder, Renal Disease, Skin Disorder, Vascular Disorder Additional Past Medical History / Comment(s): GI bleed, gastritis, gastric ectasia, CKD stage III, past abdominal aortic aneurysm/had stent placed, varicosities, PVD, past shingellis and occasionally will have R flank nerve pain, BPH. History of Any Multi-Drug Resistant Organisms: None Reported Past Surgical History: Cardiac Valve Replacement, Cholecystectomy, Heart Catheterization Additional Past Surgical History / Comment(s): Stent placed for lower abd aortic aneurysym, mitral valve replacement/bicuspid repair, EGD with ablation, colonoscopy, excision L cheek lesion/mass and lesion from scalp/all benign, Past Anesthesia/Blood Transfusion Reactions: No Reported Reaction Date of Last Stent Placement:: 2015 Past Psychological History: Anxiety Additional Psychological History / Comment(s): Pt resides alone. He has home oxygen. He drives. Smoking Status: Former smoker Past Alcohol Use History: Daily Additional Past Alcohol Use History / Comment(s): Pt started smoking in 3 and quit in 1986, Pt drinks 1 glass of wine a day. Past Drug Use History: None Reported - Past Family History Mother Family Medical History: Myocardial Infarction ([place]) Additional Family Medical History / Comment(s): at a young age. Father Family Medical History: Hypertension Medications and Allergies Home Medications Medication Instructions Recorded Confirmed Type Tamsulosin [Flomax] 0.8 mg PO DAILY 11/21/17 03/19/22 History Atorvastatin [Lipitor] 10 mg PO HS 07/20/21 03/19/22 History Fluticasone Propion/Salmeterol 1 puff IN RT-BID 07/20/21 03/19/22 History [Advair 100-50 Diskus] Levalbuterol Hfa Inhaler [Xopenex 2 puff INHALATION RT-Q4H PRN MDD 07/20/21 03/19/22 History Hfa Inhaler] 4x daily Cyanocobalamin (Vitamin B-12) 1,000 mcg PO DAILY 11/28/21 03/19/22 History [Vitamin B-12] Tiotropium 2.5 Mcg/Puff [Spiriva 2 puff INHALATION RT-DAILY 11/28/21 03/19/22 History Respimat 2.5 Mcg] Ipratropium-Albuterol Nebulize 3 ml INHALATION RT-QID 01/13/22 03/19/22 History [Duoneb 0.5 mg-3 mg/3 ml Soln] Metoprolol Tartrate [Lopressor] 50 mg PO BID tab 01/18/22 03/19/22 Rx Calcium Carbonate/Vitamin D3 1 tab PO DAILY 03/19/22 03/19/22 History [Calcium 500-Vit D3 5 Mcg (200 Iu)] Furosemide [Lasix] 60 mg PO HS 03/19/22 03/19/22 History Furosemide [Lasix] 80 mg PO QAM 03/19/22 03/19/22 History Warfarin Sodium [Jantoven] 2 mg PO HS 03/19/22 03/19/22 History Allergies Allergy/AdvReac Type Severity Reaction Status Date / Time empagliflozin Allergy Dyspnea Verified 03/19/22 16:28 [From Jardiance] iodine AdvReac Unknown Verified 03/20/22 15:47 pain med (can't remember Allergy Hallucinati Uncoded 01/13/22 14:50 name) ons Patches on chest Allergy Swelling Uncoded 01/13/22 14:50 Surgical - Exam Vital Signs Temp Pulse Resp BP Pulse Ox 97.1 F L 96 18 127/76 94 L 03/19/22 10:41 03/19/22 10:41 03/19/22 10:41 03/19/22 10:41 03/19/22 10:41 General: Well developed, well nourished. No acute distress. Chronically ill appearing HEENT: Head is atraumatic, normocephalic. Lungs: Respirations slightly labored. On room air Abdomen/GI: Soft. No guarding, rigidity, or abdominal tenderness. : No suprapubic tenderness. No flank tenderness Musculoskeletal/ Extremities: [place], No gross atrophy. + generalized weakness Vascular: No peripheral edema Skin: Warm and dry, laceration to bridge of nose Neurologic: Awake, alert and oriented times 3. CN II-XII grossly intact. No focal deficits. Psychiatric: Appropriate mood and affect. Results - Labs 03/21/22 05:56 03/21/22 05:56 Abnormal Lab Results - Last 24 Hours (Table) 03/19/22 03/19/22 03/19/22 Range/Units 16:18 16:18 16:18 RBC 3.38 L (4.30-5.90) m/uL Hgb 10.7 L (13.0-17.5) gm/dL Hct 32.5 L (39.0-53.0) % Lymphocytes # 0.6 L (1.0-4.8) k/uL PT (9.0-12.0) sec INR (<1.2) APTT (22.0-30.0) sec Potassium 3.1 L (3.5-5.1) mmol/L Carbon Dioxide 32 H (22-30) mmol/L BUN 36 H (9-20) mg/dL Calcium 8.1 L (8.4-10.2) mg/dL Total Protein 5.4 L (6.3-8.2) g/dL Albumin 3.1 L (3.5-5.0) g/dL Ur Leukocyte Esterase Large H (Negative) Urine WBC 112 H (0-5) /hpf Hyaline Casts 8 H (0-2) /lpf Urine Mucus Rare H (None) /hpf Urine Yeast (Budding) Few H (None) /hpf 03/19/22 03/20/22 Range/Units 17:29 06:15 RBC (4.30-5.90) m/uL Hgb (13.0-17.5) gm/dL Hct (39.0-53.0) % Lymphocytes # (1.0-4.8) k/uL PT 25.1 H 30.3 H (9.0-12.0) sec INR 2.6 H 3.1 H (<1.2) APTT 30.9 H (22.0-30.0) sec Potassium (3.5-5.1) mmol/L Carbon Dioxide (22-30) mmol/L BUN (9-20) mg/dL Calcium (8.4-10.2) mg/dL Total Protein (6.3-8.2) g/dL Albumin (3.5-5.0) g/dL Ur Leukocyte Esterase (Negative) Urine WBC (0-5) /hpf Hyaline Casts (0-2) /lpf Urine Mucus (None) /hpf Urine Yeast (Budding) (None) /hpf Microbiology - Last 24 Hours (Table) 03/19/22 16:18 Urine Culture - Preliminary Urine,Clean Catch Diabetes panel 03/19/22 03/19/22 Range/Units 16:18 20:44 Sodium 138 (137-145) mmol/L Potassium 3.1 L 3.7 (3.5-5.1) mmol/L Chloride 103 (98-107) mmol/L Carbon Dioxide 32 H (22-30) mmol/L BUN 36 H (9-20) mg/dL Creatinine 0.80 (0.66-1.25) mg/dL Glucose 83 (74-99) mg/dL Calcium 8.1 L (8.4-10.2) mg/dL AST 25 (17-59) U/L ALT 25 (4-49) U/L Alkaline Phosphatase 48 (38-126) U/L Total Protein 5.4 L (6.3-8.2) g/dL Albumin 3.1 L (3.5-5.0) g/dL Calcium panel 03/19/22 Range/Units 16:18 Calcium 8.1 L (8.4-10.2) mg/dL Albumin 3.1 L (3.5-5.0) g/dL Pituitary panel 03/19/22 03/19/22 Range/Units 16:18 20:44 Sodium 138 (137-145) mmol/L Potassium 3.1 L 3.7 (3.5-5.1) mmol/L Chloride 103 (98-107) mmol/L Carbon Dioxide 32 H (22-30) mmol/L BUN 36 H (9-20) mg/dL Creatinine 0.80 (0.66-1.25) mg/dL Glucose 83 (74-99) mg/dL Calcium 8.1 L (8.4-10.2) mg/dL Adrenal panel 03/19/22 03/19/22 Range/Units 16:18 20:44 Sodium 138 (137-145) mmol/L Potassium 3.1 L 3.7 (3.5-5.1) mmol/L Chloride 103 (98-107) mmol/L Carbon Dioxide 32 H (22-30) mmol/L BUN 36 H (9-20) mg/dL Creatinine 0.80 (0.66-1.25) mg/dL Glucose 83 (74-99) mg/dL Calcium 8.1 L (8.4-10.2) mg/dL Total Bilirubin 0.7 (0.2-1.3) mg/dL AST 25 (17-59) U/L ALT 25 (4-49) U/L Alkaline Phosphatase 48 (38-126) U/L Total Protein 5.4 L (6.3-8.2) g/dL Albumin 3.1 L (3.5-5.0) g/dL Assessment and Plan Assessment: The patient denies any history of kidney stones, previous urological surgeries, or frequent UTIs. He has a chronic Felder catheter for urinary retention secondary to BPH. He has been on Flomax 0.[address] Bey and denies any dizziness. The patient's urine culture is pending, WBC 7.7, creatinine 0.8. The patient is afebrile and his vitals are stable. The patient states he is interested in procedures would allow him to be with a chronic Felder. Patient was told that he may not be a good surgical candidate for a prostatectomy given his multiple comorbidities and medical debility. Plan: - Abdomen/pelvis CT with and without contrast - Continue Flomax Impression and plan of care have been directed as dictated by the signing physician. Jennifer Romo nurse practitioner acting as scribe for signing physician. Jennifer Romo [facility] Palliative Care/Urology Spectralink [email or web address] Email: [email or web address] I have personally seen and examined the patient, reviewed the documentation and agree with the assessment and plan as written. Number of minutes spent on the visit: 35. Sergo Mcdonald MD Time with Patient: Greater than 30
[2022-03-20] MEDS ORDERED: WARFARIN 0.5 MG TAB PO ONE (18:00)
[2022-03-20] MEDS: ATORVASTATIN 10 MG TAB PO SCH (21:18)
[2022-03-21 06:12] LABS: Basophils % (A) 0 %; Eosinophils # (A) 0.1 k/uL (0-0.7); Eosinophils % (A) 1 %; HCT 35.9 % (39.0-53.0); HGB 11.7 gm/dL (13.0-17.5); Lymphocytes # (A) 0.6 k/uL (1.0-4.8); Lymphocytes % (A) 4 %; MCH 31.5 pg (25.0-35.0); MCHC 32.5 g/dL (31.0-37.0); MCV 96.9 fL (80.0-100.0); Mean Platelet Volume 8.5; Monocytes # (A) 0.4 k/uL (0-1.0); Monocytes % (A) 3 %; Neutrophils % (A) 91 %; Platelet Count 160 k/uL (150-450); RBC 3.71 m/uL (4.30-5.90); RDW 14.3 % (11.5-15.5); WBC 13.2 k/uL (3.8-10.6)
[2022-03-21 06:27] LABS: African American GFR (CKD) 59 (>60 ml/min/1.73 sqM); Anion Gap 4 mmol/L; Blood Urea Nitrogen 50 mg/dL (9-20); Carbon Dioxide 33 mmol/L (22-30); Chloride 99 mmol/L (98-107); Glucose 121 mg/dL (74-99); Non-African American GFR(CKD) 51 (>60 ml/min/1.73 sqM); Potassium 4.1 mmol/L (3.5-5.1); Sodium 136 mmol/L (137-145)
[2022-03-21] MEDS: ACETAMINOPHEN TAB 325 MG TAB PO PRN ×4 (06:59→20:37)
[2022-03-21 07:22] LABS: Prothrombin Time 51.8 sec (9.0-12.0)
[2022-03-21 07:44] LABS: INR 5.2 (<1.2)
[2022-03-21] MEDS: SYMBICORT 80-4.5 MCG INHALER INHALATION SCH (07:46)
[2022-03-21] MEDS: IPRATROPIUM-ALBUTEROL 3 ML NEB INHALATION SCH ×4 (07:46→20:37)
[2022-03-21] MEDS ORDERED: WARFARIN 0.5 MG TAB PO ONE ×2 (08:00→18:00)
[2022-03-21] MEDS: LORazepam 1 MG TAB PO SCH ×3 (08:08→20:38)
[2022-03-21] MEDS: CYANOCOBALAMIN 500 MCG TAB PO SCH (08:08)
[2022-03-21] MEDS: TAMSULOSIN 0.4 MG CAP.ER.24H PO SCH (08:08)
[2022-03-21] MEDS: CALCIUM CARB-VIT D 500 MG-5 MCG TAB PO SCH (08:08)
[2022-03-21] MEDS: METOPROLOL TARTRATE 50 MG TAB PO SCH ×2 (08:09→20:38)
[2022-03-21] MEDS: PANTOPRAZOLE 40 MG/10 ML VIAL IVP SCH (08:09)
[2022-03-21] MEDS: FUROSEMIDE 20 MG TAB PO SCH ×2 (09:56→20:38)
--- NOTE | 2022-03-21 10:40 | P.PN ---
Subjective Progress Note Date: 03/21/22 Principal diagnosis: Urinary retention The patient is a 81-year-old male with a past medical history significant for A. fib, heart failure, EF 25-30%, pulmonary hypertension, COPD on home O2, A. fib, GI bleed, hyperlipidemia, BPH, and CKD stage III. He has had frequent hospitali zations in the last 3 months with acute exacerbation of COPD and heart failure. He was sent to [facility] for rehab and was just discharged home from this facility 4 days ago. The patient presented to the emergency department on 03/19/22 after a fall at home. He has a chronic Felder in for urinary retention secondary to BPH. The patient states that it was last exchanged approximately 5 weeks ago in rehab. He states that he was told to follow up with urology after his last hospitalization admission. Abdomen/bladder ultrasound from 07/2021 shows a 1.7 cm hypoechoic lesion right kidney does not meet the criteria of a simple cyst. There is a bladder diverticulum which demonstrates wall irregularity. A mucosal lesion was not excluded. 03/20 The patient denies any history of kidney stones, previous urological surgeries, or frequent UTIs. He has a chronic Felder catheter for urinary retention secondary to BPH. He has been on Flomax 0.[address] Bey and denies any dizziness. The patient's urine culture is pending, WBC 7.7, creatinine 0.8. The patient is afebrile and his vitals are stable. The patient states he is interested in procedures would allow him to be with a chronic Felder. Patient was told that he may not be a good surgical candidate for a prostatectomy given his multiple comorbidities and medical debility. Objective - Vital Signs Vital signs: Vital Signs Temp 97.9 F 03/21/22 07:00 Pulse 96 03/21/22 07:59 Resp 16 03/21/22 07:00 BP 105/61 03/21/22 07:00 Pulse Ox 93 L 03/21/22 07:00 FiO2 Intake & Output 03/20/22 03/21/22 03/21/22 18:59 06:59 18:59 Intake Total 300 Output Total 900 Balance 300 -900 Intake: Oral 300 Output: Urine 900 Other: Voiding Method Indwelling Catheter Indwelling Catheter - Exam General: Well developed, well nourished. No acute distress. Chronically ill appearing HEENT: Head is atraumatic, normocephalic. Lungs: Respirations slightly labored. On room 5L NC Abdomen/GI: Soft. No guarding, rigidity, or abdominal tenderness. : Felder catheter in place draining clear yellow urine Skin: Warm and dry, laceration to bridge of nose Neurologic: Awake, alert and oriented times 3. CN II-XII grossly intact. No focal deficits. Psychiatric: Appropriate mood and affect. - Labs CBC & Chem 7: 03/21/22 05:56 03/21/22 05:56 Labs: Abnormal Lab Results - Last 24 Hours (Table) 03/21/22 03/21/22 03/21/22 Range/Units 05:56 05:56 05:56 WBC 13.2 H (3.8-10.6) k/uL RBC 3.71 L (4.30-5.90) m/uL Hgb 11.7 L (13.0-17.5) gm/dL Hct 35.9 L (39.0-53.0) % Neutrophils # 12.0 H (1.3-7.7) k/uL Lymphocytes # 0.6 L (1.0-4.8) k/uL PT 51.8 H (9.0-12.0) sec INR 5.2 H* (<1.2) Sodium 136 L (137-145) mmol/L Carbon Dioxide 33 H (22-30) mmol/L BUN 50 H (9-20) mg/dL Creatinine 1.32 H (0.66-1.25) mg/dL Glucose 121 H (74-99) mg/dL Microbiology - Last 24 Hours (Table) 03/19/22 16:18 Urine Culture - Preliminary Urine,Clean Catch Staphylococcus species Assessment and Plan Assessment: an abdomen/pelvic CT with and without contrast was ordered in follow-up of his renal/bladder ultrasound from July 2021. When the patient was sent down for his CT, he informed staff that he has a contrast ALLERGY and his CT was canceled. This contrast ALLERGY was not documented in his chart. The patient's creatinine this morning has increased to 1.32, from 0.8-year-old upon admission. We will hold off on the CT scan at this time. The patient's Felder catheter was exchanged by nursing staff on 03/20/22 and is currently draining clear yellow urine. The patient's vital signs are stable, he has been afebrile, and is on 5 L O2. The patient's WBC was 7.7 on admission and, and is now 13.2. A preliminary urine culture shows Staphylococcus species. Antibiotics was will be started. A manual prostate exam was performed by Dr. Mcdonald. The patient's prostate is without nodules and is mildly enlarged. From an urological standpoint, the patient is okay to be discharged. He was informed that he will need to follow up in our office for urodynamic testing and cystoscopy. Plan: - Keep Felder catheter in place - Monitor serum creatinine - D/C Flomax - Start Keflex 250 mg 3 times a day - Follow up in our office for further urodynamic testing Impression and plan of care have been directed as dictated by the signing physician. Jennifer Romo nurse practitioner acting as scribe for signing physician. Jennifer Romo [facility] Palliative Care/Urology Spectralink [email or web address] Email: [email or web address] I have personally seen and examined the patient, reviewed the documentation and agree with the assessment and plan as written. Number of minutes spent on the visit: 20. Sergo Mcdonald MD
[2022-03-21] MEDS: CEPHALEXIN 250 MG CAP PO SCH ×3 (11:24→20:37)
--- NOTE | 2022-03-21 11:56 | P.PN ---
Progress Note - Text Progress Note Date: 03/21/22 Orthopedic spine: History of present illness: Patient is a very pleasant 81-year-old male who is seen and examined at the bedside for follow-up evaluation of his right ribs. He was seen and examined yesterday for further evaluation of possible compression fracture deformity. He is found to have a compression fracture deformity at T6 but this fracture is chronic in nature and does not need specific treatment. After physical examination and discussing with the patient, he is known have significant right- sided lower rib pain after sustaining a fall on his fireplace at home. X-ray imaging was ordered yesterday of his right ribs with chest. He was found to have acute mildly displaced fractures at the lateral margin of the right 9th and 10th ribs. Since that time of the fall at home he has significant pain over his right lower ribs and does have evidence of a right lower rib wound/laceration. Currently, this wound is covered. He continues to deny any thoracic pain or lumbar pain. He denies any lower extremity weakness or radiculopathy. He does have significant bruising over the bilateral lower extremities which has worsened lately. He is currently on anticoagulation with Coumadin. Patient has a significant medical history which includes heart failure, COPD, atrial fibrillation, history of mitral valve replacement and repair of bicuspid aortic valve, history of stent placement for abdominal aortic aneurysm, chronic debility pulmonary hypertension, and urinary tract infection. He currently has a Felder catheter intact. He has been evaluated by urology. He was recently admitted to the hospital for 5 days January 2022 with discharged to a rehabilitation facility. Most significantly today, he attempted to work with physical therapy. He is experiencing exertional dyspnea. His O2 saturation levels dropped to the low 80s and he was hypoxic. He currently has a nasal cannula intact. Medicine has been contacted by nursing who is aware of the patient's oxygen saturation. Patient was put back into a chair by therapy and is currently sitting in the chair beside his bed. Patient states he does feel short of breath after trying to increase his ambulation. Physical exam: Patient is awake, alert, and oriented 3 Patient currently appears short of breath sitting at the bedside with a nasal cannula intact with rapid breathing as patient just recently became short of breath with dyspnea while working with physical therapy prior to me entering the room Examination of thoracic and lumbar spine reveals skin is intact with no abrasions, lacerations, or bruises; no erythema, purulence or signs of infection No pain with palpation along the midline of the thoracic or lumbar spines There is evidence of a dressing over the right lower ribs which is taken down so skin can be visualized during physical examination Evidence of a large superficial laceration/wound over the right lateral ribs extending towards the lumbar spine Significant pain with palpation over the right lateral lower ribs Increased pain at the right lateral lower ribs with increased movement Dorsiflexion, plantarflexion, and extensor hallucis longus positive sustained bilaterally No signs or symptoms of DVT; no calf pain Evidence of significant bruising over the bilateral lower extremities Felder catheter intact Neurovascularly intact Pertinent studies: X-rays of the right ribs and chest taken on 03/20/2022: Evidence of acute mildly displaced fractures at the lateral margin of the right 9th and 10th ribs; findings suggest chronic interstitial pulmonary fibrosis with COPD and chronic granulomatous disease X-rays of the thoracic spine and lumbar spine taken on 03/19/2022: Evidence of T6 compression fracture deformity severe with 90% height loss which appears fairly stable without significant change as compared to previous chest x-ray imaging taken on 01/13/2022; this fracture was not visible on chest x-ray imaging from December 2021; no other compression fracture deformities identified within the thoracic or lumbar spine; increase in thoracic kyphosis at the site of the T6 compression fracture; evidence of sternal wires; evidence of cardiac valve replacement; lumbar degenerative scoliosis centered at L3-4; L5-S1 severe degenerative disc disease; lumbar anterior osteophytic spurring Assessment: Chronic T6 compression fracture deformity with approximately 90% height loss Acute mildly displaced fractures at the lateral margin of the right 9th and 10th ribs Acute right-sided lower rib pain Status post fall against fireplace Acute right-sided lower rib laceration/wound Exertional dyspnea after working with physical therapy with oxygen saturation in the 80s, currently on O2 nasal cannula Lumbar degenerative scoliosis centered at L3-4 L5-S1 severe degenerative disc disease Lumbar anterior osteophytic spurring COPD Heart failure History of mitral valve replacement and repair of bicuspid aortic valve History of stent placement for abdominal aortic aneurysm Atrial fibrillation Chronic anticoagulation Chronic debility pulmonary hypertension Urinary tract infection with Felder catheter and intact History of stage III chronic kidney disease Hyperlipidemia Unsteady gait; use his walker in the outpatient setting Plan: 1. Patient has been experiencing significant right lateral lower rib pain after falling against his fireplace onto his right ribs. He does have evidence of a superficial wound/laceration over these right lower ribs. There is currently a dressing intact. We did discuss the continued continue with dressing changes as needed. His pain is significant with palpation over his right lower ribs and with increased movement. X-rays of the right ribs and chest was taken yesterday which shows evidence of acute mildly displaced fractures at the lateral margin of the right 9th and 10th ribs. These rib fractures do not require surgical intervention. We will currently plan to have him work through conservative treatment to allow appropriate time for his fractures to heal appropriately. He does not experience any pain along his thoracic spine or lumbar spine. There is no pain with palpation or percussion over the previously identified T6 compression fracture deformity. Reviewing of imaging shows that this compression fracture of T6 was present on x-ray imaging taken on 01/13/2022. Compared to that imaging, the T6 fracture has remained stable and has not had significant change. There is severe compression of T6 with approximately 90% height loss. He is asymptomatic in this regard. At this time, it appears his T6 compression fracture deformity is healed and is chronic in nature. I do not think he needs bracing for this T6 fracture. I would not prescribe a TLSO brace. He is not experiencing any lower extremity weakness or radiculopathy bilaterally. He has not had any neurologic change in his lower extremities. I do not think he needs specific treatment in regards to his thoracic or lumbar spine. From an orthopedic spine standpoint, patient is clear for discharge once cleared by multiple other medical providers. Patient is most likely being discharged to a rehabilitation facility at the time of discharge. 2. Patient will continue to be seen and examined by other medical providers for his other medical diagnoses. He is currently having difficulty with exertional dyspnea and head hypoxia into the low 80s oxygen saturation. He is currently on 5 L O2 nasal cannula. [facility] medicine has been contacted and is aware. I have been able to review the case and the images. I agree and fracture at T6 appears to be chronic and not symptomatic. I do not think that he needs bracing for the T6 fracture. The patient has new fractures of his ribs with a laceration due to his fall. The laceration appears to be healing appropriately and the pain stems from the rib fractures. This can continue conservative treatment and expected management. He should continue his medical management for his COPD and other medical issues.
--- NOTE | 2022-03-21 12:03 | XR ---
EXAMINATION TYPE: XR chest 1V portable DATE OF EXAM: 03/21/2022 11:46 AM COMPARISON: Chest radiographs from 03/20/2022, TECHNIQUE: XR chest 1V portable Portable AP radiograph of the chest. CLINICAL INDICATION:Male, 81 years old with history of hypoxia; FINDINGS: Lungs/Pleura: Prominent interstitial lung markings and airspace opacities in the lung bases. There is flattening of the diaphragm and increased lucency of the lung apices. No evidence of focal consolida tion, pneumothorax or pleural effusion. Pulmonary vascularity: Unremarkable. Heart/mediastinum: Cardiomediastinal silhouette is unremarkable. Post valve repair changes. Musculoskeletal: No acute osseous pathology. Midline sternotomy wires are noted. IMPRESSION: 1. Similar increased interstitial lung markings and airspace opacities most pronounced in the lung b ases. Correlate for aspiration 2. COPD changes.
--- NOTE | 2022-03-21 13:03 | P.CNPUL ---
History of Present Illness Consult date: 03/21/22 Requesting physician: Ashanti Harris Reason for consult: abnormal CXR/CT Chief complaint: Fall sustaining rib fracture History of present illness: This is a pleasant 81-year-old male that presented emergency department 03/19/2022 after a fall at home. We were consulted 03/21/22 for rib fractures sustained during the fall. Patient's pertinent past medical history is positive for COPD, utilizing 4 L home O2, atrial fibrillation, heart failure, GI bleed, hyperlipidemia, enlarged prostate, CKD stage III, previous aortic aneurysm with stent, varicosities, PVD, shingles, previous mitral valve replacement. Patient did have a recent stay at [facility] for rehab. Patient was apparently ambulating without his walker, at home, when he fell backwards onto the floor and hit his back on his fireplace. Patient did sustain a skin tear to his back and a laceration to the bridge of his nose. EMS was called and patient was transported to Hospital with a c-collar. Chest x-ray on the ribs on 03/20/2022 revealed some mildly displaced acute fractures the lateral margin of the right ninth and 10th ribs, with some chronic interstitial changes, underlying COPD, and some chronic granulomas. Patient's CT of the brain and C-spine without contrast on arrival showed no acute cranial process and some chronic atrophy. Patient's lumbar and thoracic chest x-rays revealed some DDD with severe comp ression fracture of T6, which appeared stable from previous chest x-ray on 01/13/2022. During the patient's admission he became more short of breath requiring 5 L nasal cannula. Currently the patient is sitting comfortably in bed in no acute distress. Patient is quite wheezy and auscultation. Patient hasn't sepsis from her at bedside, and is requiring encouragement for deep breathing. Patient's chest x-ray today showed similar increased interstitial lung markings in her bases that were more pronounced at the lung bases, and some chronic COPD-like changes. Incidentally, patient had a positive urine culture with staph species. Patient is having difficulty urinating, he does have a medical history of BPH, and urology was consulted to place a urinary catheter. Patient's CBC from today shows a WBC of 13.2, hemoglobin 1.7, hematocrit 35.9, platelets 160,000. His INR from today was supra therapeutic, and he takes warfarin for anticoagulation management of his atrial fibrillation. No obvious bleeding. BMP from today shows sodium 136, potassium 4.1, chloride 99, serum CO2 33, BUN 50, creatinine 1.32, glucose 121. Patient has normal saline infusing at 75 mL per hour. Patient is being managed on DuoNeb inhalation, Symbicort inhaler. Patient's vital signs remain stable. Review of Systems REVIEW OF SYSTEMS: CONSTITUTIONAL: Denies any recent significant weight loss or weight gain. EYES: Denies change in vision. EARS, NOSE, MOUTH, THROAT: Denies headaches, denies sore throat. CARDIOVASCULAR: Denies palpitations or syncopal episodes. RESPIRATORY: Denies cough, congestion or hemoptysis. Admits shortness of breath, and chest pain with cough and deep breathing GASTROINTESTINAL: Denies change in appetite, denies abdominal pain GENITOURINARY: Denies hematuria, denies recent infections. Admits difficulty urinating MUSKULOSKELETAL: Denies pain, denies swelling. INTEGUMENTARY: Denies rash, denies eczema. NEUROLOGICAL: Denies recent memory loss, no recent seizure activity. PSYCHIATRIC: Denies anxiety, denies depression. HEMATOLOGIC/LYMPHATIC: Denies anemia, denies enlarged lymph nodes. Past Medical History Past Medical History: Atrial Fibrillation, Heart Failure, COPD, GI Bleed, Hyperlipidemia, Pneumonia, Prostate Disorder, Renal Disease, Skin Disorder, Vascular Disorder Additional Past Medical History / Comment(s): GI bleed, gastritis, gastric ectasia, CKD stage III, past abdominal aortic aneurysm/had stent placed, varicosities, PVD, past shingellis and occasionally will have R flank nerve pain, BPH. History of Any Multi-Drug Resistant Organisms: None Reported Past Surgical History: Cardiac Valve Replacement, Cholecystectomy, Heart Catheterization Additional Past Surgical History / Comment(s): Stent placed for lower abd aortic aneurysym, mitral valve replacement/bicuspid repair, EGD with ablation, colonoscopy, excision L cheek lesion/mass and lesion from scalp/all benign, Past Anesthesia/Blood Transfusion Reactions: No Reported Reaction Date of Last Stent Placement:: 2015 Past Psychological History: Anxiety Additional Psychological History / Comment(s): Pt resides alone. He has home oxygen. He drives. Smoking Status: Former smoker Past Alcohol Use History: Daily Additional Past Alcohol Use History / Comment(s): Pt started smoking in 1952 and quit in 1986, Pt drinks 1 glass of wine a day. Past Drug Use History: None Reported - Past Family History Mother Family Medical History: Myocardial Infarction ([place]) Additional Family Medical History / Comment(s): at a young age. Father Family Medical History: Hypertension Medications and Allergies Home Medications Medication Instructions Recorded Confirmed Type Tamsulosin [Flomax] 0.8 mg PO DAILY 11/21/17 03/19/22 History Atorvastatin [Lipitor] 10 mg PO HS 07/20/21 03/19/22 History Fluticasone Propion/Salmeterol 1 puff IN RT-BID 07/20/21 03/19/22 History [Advair 100-50 Diskus] Levalbuterol Hfa Inhaler [Xopenex 2 puff INHALATION RT-Q4H PRN MDD 07/20/21 03/19/22 History Hfa Inhaler] 4x daily Cyanocobalamin (Vitamin B-12) 1,000 mcg PO DAILY 11/28/21 03/19/22 History [Vitamin B-12] Tiotropium 2.5 Mcg/Puff [Spiriva 2 puff INHALATION RT-DAILY 11/28/21 03/19/22 History Respimat 2.5 Mcg] Ipratropium-Albuterol Nebulize 3 ml INHALATION RT-QID 01/13/22 03/19/22 History [Duoneb 0.5 mg-3 mg/3 ml Soln] Metoprolol Tartrate [Lopressor] 50 mg PO BID tab 01/18/22 03/19/22 Rx Calcium Carbonate/Vitamin D3 1 tab PO DAILY 03/19/22 03/19/22 History [Calcium 500-Vit D3 5 Mcg (200 Iu)] Furosemide [Lasix] 60 mg PO HS 03/19/22 03/19/22 History Furosemide [Lasix] 80 mg PO QAM 03/19/22 03/19/22 History Warfarin Sodium [Jantoven] 2 mg PO HS 03/19/22 03/19/22 History Allergies Allergy/AdvReac Type Severity Reaction Status Date / Time empagliflozin Allergy Dyspnea Verified 03/19/22 16:28 [From Jardiance] iodine AdvReac Unknown Verified 03/20/22 15:47 pain med (can't remember Allergy Hallucinati Uncoded 01/13/22 14:50 name) ons Patches on chest Allergy Swelling Uncoded 01/13/22 14:50 Physical Exam Vitals: Vital Signs Temp Pulse Pulse Resp BP Pulse Ox 03/21/22 12:08 92 03/21/22 11:56 92 03/21/22 08:00 22 03/21/22 07:59 96 03/21/22 07:47 96 03/21/22 07:00 97.9 F 98 16 105/61 93 L 03/21/22 02:00 97.9 F 92 14 89/56 96 03/20/22 21:47 88 03/20/22 21:35 92 03/20/22 20:00 98.1 F 68 16 87/42 94 L 03/20/22 15:48 76 03/20/22 15:33 72 03/20/22 14:00 17 03/20/22 13:31 98.2 F 61 17 90/48 93 L Intake and Output 03/20/22 03/21/22 03/21/22 22:59 06:59 14:59 Output Total 100 800 Balance -100 -800 Output: Urine 100 800 Other: Voiding Method Indwelling Catheter Indwelling Catheter Indwelling Catheter GENERAL EXAM: Alert, 81-year-old male, comfortable in no apparent distress. HEAD: Normocephalic and atraumatic EYES: Normal reaction of pupils, equal size. NOSE: Clear with pink turbinates. THROAT: No erythema or exudates. NECK: No masses, no JVD. CHEST: No chest wall deformity. LUNGS: Equal air entry with expiratory wheezes heard throughout. no crackles, rhonchi or dullness. On 5 L nasal cannula. No conversational dyspnea or accessory muscle use. Facial grimacing with coughing and deep breathing CVS: S1 and S2 normal with no audible murmur, regular rhythm. ABDOMEN: No hepatosplenomegaly, normal bowel sounds, no guarding or rigidity. SPINE: No scoliosis or deformity SKIN: No rashes CENTRAL NERVOUS SYSTEM: No focal deficits, tone is normal in all 4 extremities. EXTREMITIES: There is no peripheral edema, clubbing, or cyanosis. Peripheral pulses are intact. Results - Laboratory Findings CBC and BMP: 03/21/22 05:56 03/21/22 05:56 PT/INR, D-dimer PT 51.8 sec (9.0-12.0) H 03/21/22 05:56 INR 5.2 (<1.2) H* 03/21/22 05:56 Abnormal lab findings: Abnormal Labs 03/19/22 03/19/22 03/19/22 16:18 16:18 16:18 WBC RBC 3.38 L Hgb 10.7 L Hct 32.5 L Neutrophils # Lymphocytes # 0.6 L PT INR APTT Sodium Potassium 3.1 L Carbon Dioxide 32 H BUN 36 H Creatinine Glucose Calcium 8.1 L Total Protein 5.4 L Albumin 3.1 L Ur Leukocyte Esterase Large H Urine WBC 112 H Hyaline Casts 8 H Urine Mucus Rare H Urine Yeast (Budding) Few H 03/19/22 03/20/22 03/21/22 17:29 06:15 05:56 WBC RBC Hgb Hct Neutrophils # Lymphocytes # PT 25.1 H 30.3 H 51.8 H INR 2.6 H 3.1 H 5.2 H* APTT 30.9 H Sodium Potassium Carbon Dioxide BUN Creatinine Glucose Calcium Total Protein Albumin Ur Leukocyte Esterase Urine WBC Hyaline Casts Urine Mucus Urine Yeast (Budding) 03/21/22 03/21/22 05:56 05:56 WBC 13.2 H RBC 3.71 L Hgb 11.7 L Hct 35.9 L Neutrophils # 12.0 H Lymphocytes # 0.6 L PT INR APTT Sodium 136 L Potassium Carbon Dioxide 33 H BUN 50 H Creatinine 1.32 H Glucose 121 H Calcium Total Protein Albumin Ur Leukocyte Esterase Urine WBC Hyaline Casts Urine Mucus Urine Yeast (Budding) - Diagnostic Findings Chest x-ray: image reviewed Assessment and Plan Assessment: Fall possibly related to not using his home walker. Sustaining rib fractures right 9 and 10. Acute COPD exacerbation Acute on chronic hypoxic respiratory failure requiring 4 L nasal cannula home O2. Urinary tract infection being covered with cephalexin Chronic Atrial fibrillation Chronic heart failure Hyperlipidemia BPH History of mitral valve replacement History of previous stent to an abdominal aortic aneurysm History of GI bleed Ex-smoker Plan: Patient's medications, labs, x-rays, and head CT were reviewed Continue supplemental oxygen to maintain oxygen saturation of 92% or greater We will discontinue Symbicort and add budesonide and formoterol inhalation We will continue bronchodilators Add Solu-Medrol Continue cephalexin for UTI coverage Encourage incentive spirometer use Fall risk Encourage activity as tolerated We will continue to follow I have personally seen and examined the patient, performed the documentation and the assessment and plan as written. Number of minutes spent on the visit: 20. Time with Patient: Greater than 30
[2022-03-21] MEDS: methylPREDNISolone SOD SUCCI 40 MG/ML 1 ML VIAL IV SCH ×3 (15:22→20:38)
--- NOTE | 2022-03-21 15:31 | P.PN ---
Subjective Progress Note Date: 03/21/22 H&P Date: 03/20/22 Chief Complaint: status post fall Mr. Pereira is an 81-year-old male patient, past medical history remarkable for heart failure COPD atrial fibrillation chronic debility, pulmonary hypertension has been admitted several times in the last 3 months with acute exacerbation of COPD and heart failure admitted status post fall with s ignificant right-sided lower rib pain. Recently discharged from [facility] subacute rehab. this past Saturday/4 days ago. Ambulating without using his walker, slipped and fell, landing on fireplace, sustained superficial laceration over the bridge of his nose, skin tear, approximately 10 cm over her right lateral posterior rib cage. Denies loss of consciousness. Denies incontinence of urine or bowel movement. Denies any chest pain, palpitations or shortness of breath prior to the fall. Denies lightheadedness, dizziness or focal deficits. Complains of rib cage pain, currently pursed lip breathing and denies chest pain or palpitations. CT brain /C-spine reporting no acute intracranial process, severe emphysematous changes evident within visualized lung apices,atrophy, degenerative disc changes greatest at C3-4 and C5-6, spondyloisthesis of C3-4 and C5-6, foraminal stenosis predominantly on the right, no acute osseous abnormality. Thoracic spine. Severe compression fracture at approximately T6 level appears stable in comparison to prior x-ray, severe complete compression fracture at this level is chronic, COPD with persistent patchy lower lobe infiltrate, chronic interstitial disease .Evaluated by orthopedic surgery reporting T6 compression fracture [id number] chronic in nature and does not recommend a TLSO brace. Lumbar x-ray series reported diffuse osteopenia with multilevel moderate degenerative disc disease and facet arthropathy most marked at L5-S1 .Right rib x-rays reported minimally displaced acute fractures lateral margin right ninth and 10th. Afebrile, normal WBC. UA positive, culture pending. Potassium 3.1, supplemented , follow-up lab 3.7. INR 3.1. Hemoglobin 10.7, platelets 158. BUN 36, creatinine 0.8. 03/21/2022 respiratory status worsened, requiring 5 L nasal cannula O2 to maintain O2 sats in the 90s. Chest x-ray ordered. Pulmonary consulted. INR 5.2, No vitamin K recommended at this time ,as per PCP. Recheck level pending. Afebrile, increased WBCs 13.2 Cephalexin initiated for UTI. Creatinine worsening, up to 1.32. Objective - Vital Signs Vital signs: Vital Signs Temp 97.9 F 03/21/22 07:00 Pulse 92 03/21/22 12:08 Resp 22 03/21/22 08:00 BP 105/61 03/21/22 07:00 Pulse Ox 93 L 03/21/22 07:00 FiO2 Intake & Output 03/20/22 03/21/22 03/21/22 18:59 06:59 18:59 Intake Total 300 Output Total 900 Balance 300 -900 Intake: Oral 300 Output: Urine 900 Other: Voiding Method Indwelling Catheter Indwelling Catheter Indwelling Catheter - Exam - Exam General: Cachectic, awake, alert and oriented times 3. Increased respiratory effort. HEENT: [PERRL. EOMI. No pharyngeal erythema or exudate. Superficial Laceration/Scab over the bridge of his nose] Neck: [Supple, no JVD. Cardiac: [Heart irregularly irregular, grade 3 systolic ejection murmur Lungs: [Diminished breath sounds bilaterally with scattered rhonchi, with expiratory wheezes Abdomen: Soft, nontender, nondistended, No organomegaly. Positive Bowel sounds. Extremes: No edema no cyanosis no claudication normal pulses] Skin: Warm and dry, right lateral rib cage with superficial skin tear, refer to nursing measurements/picture Neurologic: No lateralizing deficits. CN II - XII grossly intact. - Labs CBC & Chem 7: 03/21/22 05:56 03/21/22 05:56 Labs: Abnormal Lab Results - Last 24 Hours (Table) 03/21/22 03/21/22 03/21/22 Range/Units 05:56 05:56 05:56 WBC 13.2 H (3.8-10.6) k/uL RBC 3.71 L (4.30-5.90) m/uL Hgb 11.7 L (13.0-17.5) gm/dL Hct 35.9 L (39.0-53.0) % Neutrophils # 12.0 H (1.3-7.7) k/uL Lymphocytes # 0.6 L (1.0-4.8) k/uL PT 51.8 H (9.0-12.0) sec INR 5.2 H* (<1.2) Sodium 136 L (137-145) mmol/L Carbon Dioxide 33 H (22-30) mmol/L BUN 50 H (9-20) mg/dL Creatinine 1.32 H (0.66-1.25) mg/dL Glucose 121 H (74-99) mg/dL Microbiology - Last 24 Hours (Table) 03/19/22 16:18 Urine Culture - Preliminary Urine,Clean Catch Staphylococcus species Assessment and Plan Assessment: Medical debility with gait dysfunction, status post fall-not using walker, sustaining mildly displaced acute fractures right lateral ninth and 10th ribs with skin tear and acute right lower rib pain Acute COPD exacerbation Acute on chronic hypoxic respiratory failure secondary to the above, wears 2 L nasal cannula at home. Dehydration, mild with acute renal insufficiency on top of chronic renal failure stage III, baseline around 1.2. Chronic CHF exacerbation, systolic dysfunction Acute UTI, urine culture reported Staphylococcus species, finalizing Chronic T6 compression fracture Lumbar Degenerative disc disease, severe, L5-S1 Severe cardiomyopathy and LV dysfunction with ejection fraction of 25-30%. Moderate to severe pulmonary hypertension, follows at [facility] History of Haslet valve per [facility] Paroxysmal atrial fibrillation, anticoagulated with warfarin History of Right atypical renal cyst, 1.7 cm, bladder diverticulum demonstrating wall irregularity, mucosal lesion not excluded, following-up with urology outpatient Alcohol use, Daily alcohol consumption of 1-2 glasses of wine Mitral valve replacement, prosthetic valve Hypertension Hyperlipidemia PVD with history of stented lower abdominal aortic aneurysm History of nicotine dependence, 3 packs per day Anxiety Depression, Zoloft Plan: Continue on current medication regime ,monitoring and symptomatic treatment. INR this morning jumped from 3.1 to 5.2, no vitamin K as per PCP- Repeat INR ordered/pending results to be called in to PCP. Chest x-ray ordered, pending. Evaluated by pulmonary with recommendations noted and appreciated .Maintain aggressive pulmonary toileting with Nebulized bronchodilators, Pulmicort, Perforomist and IV steroids. Pro-calcitonin ordered /pending.Cephalexin for UTI, Urine culture finalizing. Evaluated by urology, patient cleared and to follow up outpatient. Pain management. PT/OT.KATHERINE at [place]. Patient wishes to remain a full code at this time. The impression and plan of care has been dictated as directed. : I performed a history and examination of this patient, discussed the same with the dictator. I agree with the dictator's note ,documented as a scribe. Any additional findings or plans will be noted.
[2022-03-21] MEDS ORDERED: DEXTROSE 50% SYRINGE 50 ML IVP PRN ×2 (15:43)
[2022-03-21 16:19] LABS: Prothrombin Time 52.2 sec (9.0-12.0)
[2022-03-21 16:22] LABS: INR 5.3 (<1.2)
[2022-03-21 17:34] LABS: Glucose,Whole Blood 142 mg/dL (70-110)
[2022-03-21] MEDS: INSULIN ASPART (NovoLOG) 100 UNIT/ML VIAL SQ SCH ×3 (17:44→22:02)
[2022-03-21] MEDS: FORMOTEROL FUMARATE 20 MCG/2 ML NEBU INHALATION SCH (20:37)
[2022-03-21] MEDS: BUDESONIDE 1 MG/2 ML NEBU INHALATION SCH (20:37)
[2022-03-21] MEDS: ATORVASTATIN 10 MG TAB PO SCH (20:38)
[2022-03-21] MEDS: NITROFURANTOIN MONOHYD/M-CRYST 100 MG CAP PO SCH (21:30)
[2022-03-21 21:54] LABS: Glucose,Whole Blood 206 mg/dL (70-110)
[2022-03-22] MEDS: INSULIN ASPART (NovoLOG) 100 UNIT/ML VIAL SQ SCH ×2 (05:44→15:22)
[2022-03-22 05:45] LABS: Glucose,Whole Blood 146 mg/dL (70-110)
[2022-03-22] MEDS: methylPREDNISolone SOD SUCCI 40 MG/ML 1 ML VIAL IV SCH ×2 (06:17→15:22)
[2022-03-22 06:20] LABS: Prothrombin Time 29.6 sec (9.0-12.0)
[2022-03-22 06:32] LABS: African American GFR (CKD) 78 (>60 ml/min/1.73 sqM); Anion Gap 6 mmol/L; Blood Urea Nitrogen 55 mg/dL (9-20); Calcium 8.4 mg/dL (8.4-10.2); Carbon Dioxide 31 mmol/L (22-30); Chloride 101 mmol/L (98-107); Glucose 134 mg/dL (74-99); Non-African American GFR(CKD) 67 (>60 ml/min/1.73 sqM); Potassium 3.7 mmol/L (3.5-5.1); Sodium 138 mmol/L (137-145)
[2022-03-22] MEDS: BUDESONIDE 1 MG/2 ML NEBU INHALATION SCH (08:26)
[2022-03-22] MEDS: FORMOTEROL FUMARATE 20 MCG/2 ML NEBU INHALATION SCH (08:26)
[2022-03-22] MEDS: IPRATROPIUM-ALBUTEROL 3 ML NEB INHALATION SCH ×2 (08:26→12:16)
[2022-03-22] MEDS: CYANOCOBALAMIN 500 MCG TAB PO SCH (09:18)
[2022-03-22] MEDS: CALCIUM CARB-VIT D 500 MG-5 MCG TAB PO SCH (09:18)
[2022-03-22] MEDS: FUROSEMIDE 20 MG TAB PO SCH (09:19)
[2022-03-22] MEDS: NITROFURANTOIN MONOHYD/M-CRYST 100 MG CAP PO SCH (09:19)
[2022-03-22] MEDS: METOPROLOL TARTRATE 50 MG TAB PO SCH (09:19)
[2022-03-22] MEDS: PANTOPRAZOLE 40 MG/10 ML VIAL IVP SCH (09:20)
[2022-03-22 09:42] VITALS: BP 113/64; RESP 16; TEMP 97.4
[2022-03-22] MEDS: LORazepam 1 MG TAB PO SCH (10:14)
[2022-03-22] MEDS: ACETAMINOPHEN TAB 325 MG TAB PO PRN (10:18)
--- NOTE | 2022-03-22 10:23 | P.PN ---
Subjective Progress Note Date: 03/22/22 Principal diagnosis: We'll sustaining fracture of the right ninth and 10th ribs This is a pleasant 81-year-old male that presented emergency department 03/19/2022 after a fall at home. We were consulted 03/21/22 for rib fractures sustained during the fall. Patient's pertinent past medical history is positive for COPD, utilizing 4 L home O2, atrial fibrillation, heart failure, GI bleed, hyperlipidemia, enlarged prostate, CKD stage III, previous aortic aneurysm with stent, varicosities, PVD, shingles, previous mitral valve replacement. Patient did have a recent stay at [facility] for rehab. Patient was apparently ambulating without his walker, at home, when he fell backwards onto the floor and hit his back on his fireplace. Patient did sustain a skin tear to his back and a laceration to the bridge of his nose. EMS was called and patient was transported to Hospital with a c-collar. Chest x-ray on the ribs on 03/20/2022 revealed some mildly displaced acute fractures the lateral margin of the right ninth and 10th ribs, with some chronic interstitial changes, underlying COPD, and some chronic granulomas. Patient's CT of the brain and C-spine without contrast on arrival showed no acute cranial process and some chronic atrophy. Patient's lumbar and thoracic chest x-rays revealed some DDD with severe compression fracture of T6, which appeared stable from previous chest x-ray on 01/13/2022. During the patient's admission he became more short of breath r equiring 5 L nasal cannula. Currently the patient is sitting comfortably in bed in no acute distress. Patient is quite wheezy and auscultation. Patient has incentive spirometer from her at bedside, and is requiring encouragement for deep breathing. Patient's chest x-ray today showed similar increased interstitial lung markings in her bases that were more pronounced at the lung bases, and some chronic COPD-like changes. Incidentally, patient had a positive urine culture with staph species. Patient is having difficulty urinating, he does have a medical history of BPH, and urology was consulted to place a urinary catheter. Patient's CBC from today shows a WBC of 13.2, hemoglobin 1.7, hem atocrit 35.9, platelets 160,000. His INR from today was supra therapeutic, and he takes warfarin for anticoagulation management of his atrial fibrillation. No obvious bleeding. BMP from today shows sodium 136, potassium 4.1, chloride 99, serum CO2 33, BUN 50, creatinine 1.32, glucose 121. Patient has normal saline infusing at 75 mL per hour. Patient is being managed on DuoNeb inhalation, Symb icort inhaler. Patient's vital signs remain stable. I'm reevaluating this patient today 03/22/2022 in follow-up on the general medical floor. Patient is currently comfortable, sitting up in bed, on 4 L nasal cannula, in no acute distress. Patient does wear 4 L nasal cannula at home. Lungs sounds reveal less wheezing and improved aeration. Incentive spirometer remains at bedside. No new chest x-ray to review today. Patient is maintained on DuoNeb inhalation, budesonide inhalation, formoterol inhalation, and IV Solu-Medrol. Patient's procalcitonin was high at 2.77. Patient's urine culture turned out MRSA, which is susceptible to Macrobid. Urinary catheter remains in place, and has good output. Patient did receive Lasix 80 mg by mouth this morning. No new CBC to review today. INR is down to 3. Patient's BMP from today shows a sodium 138, potassium 3.7, chloride 101, serum CO2 31, BUN 55, creatinine 1.05, glucose 134. Patient has been afebrile overnight. Vital signs remain stable. Objective - Vital Signs Vital signs: Vital Signs Temp 97.4 F L 03/22/22 07:00 Pulse 84 03/22/22 08:47 Resp 16 03/22/22 07:00 BP 113/64 03/22/22 07:00 Pulse Ox 96 03/22/22 08:29 FiO2 Intake & Output 03/21/22 03/22/22 03/22/22 18:59 06:59 18:59 Intake Total 720 118 Output Total 1025 Balance 720 -1025 118 Intake: Oral 720 118 Output: Urine 1025 Other: Voiding Method Indwelling Catheter Indwelling Catheter # Voids 1 - Exam GENERAL EXAM: Alert, 81-year-old male, comfortable in no apparent distress. HEAD: Normocephalic and atraumatic EYES: Normal reaction of pupils, equal size. NOSE: Clear with pink turbinates. THROAT: No erythema or exudates. NECK: No masses, no JVD. CHEST: No chest wall deformity. LUNGS: Equal air entry with faint expiratory wheezes heard throughout. no crackles, rhonchi or dullness. On 4 L nasal cannula. No conversational dyspnea or accessory muscle use. Facial grimacing with coughing and deep breathing CVS: S1 and S2 normal with no audible murmur, regular rhythm. ABDOMEN: No hepatosplenomegaly, normal bowel sounds, no guarding or rigidity. SPINE: No scoliosis or deformity SKIN: No rashes CENTRAL NERVOUS SYSTEM: No focal deficits, tone is normal in all 4 extremities. EXTREMITIES: There is no peripheral edema, clubbing, or cyanosis. Peripheral pulses are intact. - Labs CBC & Chem 7: 03/21/22 05:56 03/22/22 05:39 Labs: Abnormal Lab Results - Last 24 Hours (Table) 03/21/22 03/21/22 03/21/22 Range/Units 10:08 15:31 17:29 PT 52.2 H (9.0-12.0) sec INR 5.3 H* (<1.2) Carbon Dioxide (22-30) mmol/L BUN (9-20) mg/dL Glucose (74-99) mg/dL POC Glucose (mg/dL) 142 H (70-110) mg/dL Procalcitonin 2.77 H (0.02-0.09) ng/mL 03/21/22 03/22/22 03/22/22 Range/Units 21:51 05:39 05:39 PT 29.6 H (9.0-12.0) sec INR 3.0 H (<1.2) Carbon Dioxide 31 H (22-30) mmol/L BUN 55 H (9-20) mg/dL Glucose 134 H (74-99) mg/dL POC Glucose (mg/dL) 206 H (70-110) mg/dL Procalcitonin (0.02-0.09) ng/mL 03/22/22 Range/Units 05:43 PT (9.0-12.0) sec INR (<1.2) Carbon Dioxide (22-30) mmol/L BUN (9-20) mg/dL Glucose (74-99) mg/dL POC Glucose (mg/dL) 146 H (70-110) mg/dL Procalcitonin (0.02-0.09) ng/mL Microbiology - Last 24 Hours (Table) 03/19/22 16:18 Urine Culture - Final Urine,Clean Catch Methicillin resist S. aureus Assessment and Plan Assessment: Fall possibly related to not using his home walker. Sustaining rib fractures right 9 and 10. Acute COPD exacerbation Acute on chronic hypoxic respiratory failure requiring 4 L nasal cannula home O2. Urinary tract infection with MRSA. Covered on Macrobid. Urinary catheter in plac e Chronic Atrial fibrillation Chronic heart failure Hyperlipidemia BPH History of mitral valve replacement History of previous stent to an abdominal aortic aneurysm History of GI bleed Ex-smoker Plan: Patient's medications, labs, x-rays, and head CT were reviewed Continue supplemental oxygen to maintain oxygen saturation of 92% or greater continue bronchodilators, Symbicort, IV Solu-Medrol. Continue Macrobid for UTI with MRSA Encourage incentive spirometer use Fall risk Encourage activity as tolerated We will continue to follow I have personally seen and examined the patient, performed the documentation and the assessment and plan as written. Number of minutes spent on the visit: 10. Time with Patient: Less than 30
--- NOTE | 2022-03-22 11:26 | P.DS ---
Providers Date of admission: 03/21/22 10:31 Expected date of discharge: 03/22/22 Attending physician: Sae Rodriguez Consults: 03/19/22 16:49 Consult Physician Routine Consulting Provider: Delmy Bruno Consult Reason/Comments: compression fracture, brace? Do you want consulting provider notified?: Yes 03/19/22 18:37 Consult Physician Routine Consulting Provider: Sergo Mcdonald Consult Reason/Comments: chronic saez Do you want consulting provider notified?: Yes 03/21/22 11:20 Consult Physician Routine Consulting Provider: Eduardo Patrick Consult Reason/Comments: hypoxia, fx ribs Do you want consulting provider notified?: Yes Primary care physician: [facility] Course: Final Diagnoses: Medical debility with gait dysfunction, status post fall-not using walker, sustaining mildly displaced acute fractures right lateral ninth and 10th ribs with skin tear and acute right lower rib pain Acute COPD exacerbation Acute on chronic hypoxic respiratory failure secondary to the above, wears 2 L nasal cannula at home. Dehydration, mild with acute renal insufficiency on top of chronic renal failure stage III, baseline around 1.2. Chronic CHF exacerbation, systolic dysfunction Acute MRSA UTI, on Macrobid Chronic T6 compression fracture Lumbar Degenerative disc disease, severe, L5-S1 Severe cardiomyopathy and LV dysfunction with ejection fraction of 25-30%. Moderate to severe pulmonary hypertension, follows at [facility] History of [place] valve per [facility] Paroxysmal atrial fibrillation, anticoagulated with warfarin, supratherapeutic on admission, currently INR down to 3. Hypercoagulopathy, secondary to the above History of Right atypical renal cyst, 1.7 cm, bladder diverticulum demonstrating wall irregularity, mucosal lesion not excluded, following-up with urology outpatient Alcohol use, Daily alcohol consumption of 1-2 glasses of wine Mitral valve replacement, prosthetic valve Hypertension Hyperlipidemia PVD with history of stented lower abdominal aortic aneurysm History of nicotine dependence, 3 packs per day Anxiety Depression, [facility] [facility] course:Mr. Pereira is an 81-year-old male patient, past medical history remarkable for heart failure COPD atrial fibrillation chronic debility, pulmonary hypertension has been admitted several times in the last 3 months with acute exacerbation of COPD and heart failure admitted status post fall with significant right-sided lower rib pain. Recently discharged from [facility] subacute rehab. this past Blane/4 days ago. Ambulating without using his walker, slipped and fell, landing on fireplace, sustained superficial laceration over the bridge of his nose, skin tear, approximately 10 cm over her right lateral posterior rib cage. Denies loss of consciousness. Denies incontinence of urine or bowel movement. Denies any chest pain, palpitations or shortness of breath prior to the fall. Denies lightheadedness, dizziness or focal deficits. Complains of rib cage pain, currently pursed lip breathing and denies chest pain or palpitations. CT brain /C-spine reporting no acute intracranial process, severe emphysematous changes evident within visualized lung apices,atrophy, degenerative disc changes greatest at C3-4 and C5-6, spondyloisthesis of C3-4 and C5-6, foraminal stenosis predominantly on the right, no acute osseous abnormality. Thoracic spine. Severe compression fracture at approximately T6 level appears stable in comparison to prior x-ray, severe complete compression fracture at this level is chronic, COPD with persistent patchy lower lobe infiltrate, chronic interstitial disease .Evaluated by orthopedic surgery reporting T6 compression fracture [id number] chronic in nature and does not recommend a TLSO brace. Lumbar x-ray series reported diffuse osteopenia with multilevel moderate degenerative disc disease and facet arthropathy most marked at L5-S1 .Right rib x-rays reported minimally displaced acute fractures lateral margin right ninth and 10th. Afebrile, normal WBC. UA positive, culture pending. Potassium 3.1, supplemented , follow-up lab 3.7. INR 3.1. Hemoglobin 10.7, platelets 158. BUN 36, creatinine 0.8. 03/21/2022 respiratory status worsened, requiring 5 L nasal cannula O2 to maintain O2 sats in the 90s. Chest x-ray ordered. Pulmonary consulted. INR 5.2, No vitamin K recommended at this time ,as per PCP. Recheck level pending. Afebrile, increased WBCs 13.2 Cephalexin initiated for UTI. Creatinine worsening, up to 1.32. Maintained on IV steroids, nebulized bronchodilators- Du oNeb,Budesonide,Formoterol.Significant clinical improvement. Afebrile, renal function improving, BUN 55, creatinine 1.05. Pro-calcitonin elevated, 2.77. Urine culture reporting MRSA, Macrobid initiated. Sitting up in chair, required one-person assist for transfer. Maintaining O2 sats in the high 90s on 4 L nasal cannula. Incentive spirometer up to 1500. Rib cage pain controlled with Tylenol. Denies chest pain, palpitations or increased shortness of breath. Cleared by pulmonary for discharge. Patient will be discharged to [facility] subacute rehab. today in a stable condition with guarded prognosis. Coumadin dose has been decreased from home dose of 2mg to 1mg related to supratherapeutic INR levels. INR currently 3. Close monitoring of INR with daily INR levels. General: Cachectic, awake, alert and oriented times 3. Sitting up in chair. No conversational dyspnea. Neck: [Supple, no JVD. Cardiac: [Heart irregularly irregular, grade 3 systolic ejection murmur Lungs: [Diminished breath sounds bilaterally with scattered rhonchi. No accessory muscle use Abdomen: Soft, nontender, nondistended, No organomegaly. Positive Bowel sounds. Extremities: No edema no cyanosis no claudication normal pulses] Neurologic: No lateralizing deficits. CN II - XII grossly intact. Microbiology 03/19/22 16:18 Urine,Clean Catch Urine Culture - Final Methicillin resist S. aureus The impression and plan of care has been dictated as directed. : I performed a history and examination of this patient, discussed the same with the dictator. I agree with the dictator's note ,documented as a scribe. Any additional findings or plans will be noted. Patient Condition at Discharge: Stable Plan - Discharge Summary Discharge Rx Participant: No New Discharge Prescriptions: New predniSONE 10 mg PO DIRECTED #30 tab Pantoprazole Sodium [Protonix] 40 mg PO DAILY #30 tab Acetaminophen Tab [Tylenol] 650 mg PO Q6HR PRN tab PRN Reason: Mild Pain Or Fever > 100.5 Ipratropium-Albuterol Nebulize [Duoneb 0.5 mg-3 mg/3 ml Soln] 3 ml INHALATION Q4H PRN each PRN Reason: Shortness Of Breath Or Wheezing Warfarin Sodium [Jantoven] 1 mg PO HS #1 tablet Nitrofurantoin Monohyd/M-Cryst [Macrobid] 100 mg PO BID #12 cap Continue Tamsulosin [Flomax] 0.8 mg PO DAILY Atorvastatin [Lipitor] 10 mg PO HS Fluticasone Propion/Salmeterol [Advair 100-50 Diskus] 1 puff IN RT-BID Ipratropium-Albuterol Nebulize [Duoneb 0.5 mg-3 mg/3 ml Soln] 3 ml INHALATION RT-QID Levalbuterol Hfa Inhaler [Xopenex Hfa Inhaler] 2 puff INHALATION RT-Q4H PRN MDD 4x daily PRN Reason: Shortness Of Breath Cyanocobalamin (Vitamin B-12) [Vitamin B-12] 1,000 mcg PO DAILY Tiotropium 2.5 Mcg/Puff [Spiriva Respimat 2.5 Mcg] 2 puff INHALATION RT-DAILY Metoprolol Tartrate [Lopressor] 50 mg PO BID tab Furosemide [Lasix] 80 mg PO QAM Furosemide [Lasix] 60 mg PO HS Calcium Carbonate/Vitamin D3 [Calcium 500-Vit D3 5 Mcg (200 Iu)] 1 tab PO DAILY Discontinued Warfarin Sodium [Jantoven] 2 mg PO HS Discharge Medication List Tamsulosin [Flomax] 0.8 mg PO DAILY 11/21/17 [History] Atorvastatin [Lipitor] 10 mg PO HS 07/20/21 [History] Fluticasone Propion/Salmeterol [Advair 100-50 Diskus] 1 puff IN RT-BID 07/20/21 [History] Levalbuterol Hfa Inhaler [Xopenex Hfa Inhaler] 2 puff INHALATION RT-Q4H PRN MDD 4x daily 07/20/21 [History] Cyanocobalamin (Vitamin B-12) [Vitamin B-12] 1,000 mcg PO DAILY 11/28/21 [History] Tiotropium 2.5 Mcg/Puff [Spiriva Respimat 2.5 Mcg] 2 puff INHALATION RT-DAILY 11/28/21 [History] Ipratropium-Albuterol Nebulize [Duoneb 0.5 mg-3 mg/3 ml Soln] 3 ml INHALATION RT-QID 01/13/22 [History] Metoprolol Tartrate [Lopressor] 50 mg PO BID tab 01/18/22 [Rx] Calcium Carbonate/Vitamin D3 [Calcium 500-Vit D3 5 Mcg (200 Iu)] 1 tab PO DAILY 03/19/22 [History] Furosemide [Lasix] 60 mg PO HS 03/19/22 [History] Furosemide [Lasix] 80 mg PO QAM 03/19/22 [History] Acetaminophen Tab [Tylenol] 650 mg PO Q6HR PRN tab 03/22/22 [Rx] Ipratropium-Albuterol Nebulize [Duoneb 0.5 mg-3 mg/3 ml Soln] 3 ml INHALATION Q4H PRN each 03/22/22 [Rx] Nitrofurantoin Monohyd/M-Cryst [Macrobid] 100 mg PO BID #12 cap 03/22/22 [Rx] Pantoprazole Sodium [Protonix] 40 mg PO DAILY #30 tab 03/22/22 [Rx] Warfarin Sodium [Jantoven] 1 mg PO HS #1 tablet 03/22/22 [Rx] predniSONE 10 mg PO DIRECTED #30 tab 03/22/22 [Rx] Follow up Appointment(s)/Referral(s): Chris Gary, PAC [PHYSICIAN ANNUAL CAMPAIGN MANAGER] - As Needed (Patient may follow-up with Chris Gary PA-C or Dr. Jorge Bruno at [facility] on an as needed basis following discharge. ) [facility] Visiting Nurse, [NON-STAFF] - [facility],Clinic [REFERRING] - 1 Week (After discharge from subacute rehab) Tan Bey Jr, DO [Primary Care Provider] - 3 Days (After discharge from subacute rehab) Activity/Diet/Wound Care/Special Instructions: Blanca MURPHY Daily INR, further dosing accordingly as per Dr. Rodriguez CBC, BMP in 3 days 4 L nasal cannula, titrate to maintain O2 sats of greater than 92% Right lateral/posterior rib cage dressing: [place] with ordered of the foam dressings 3 times per week as previously ordered Diet: Regular Discharge/Stand Alone Forms: Adult Foster Prison List, Assisted Living Facilities, Community Resources, Personal Equal Opportunity Specialist
[2022-03-22 12:25] LABS: Glucose,Whole Blood 204 mg/dL (70-110)
[2022-03-22 12:27] VITALS: PULSE 96
--- NOTE | 2022-03-22 13:11 | P.PN ---
Subjective Progress Note Date: 03/22/22 The patient is a 81-year-old male with a past medical history significant for A. fib, heart failure, EF 25-30%, pulmonary hypertension, COPD on home O2, A. fib, GI bleed, hyperlipidemia, BPH, and CKD stage III. He has had frequent hospitalizations in the last 3 months with acute exacerbation of COPD and heart failure. He was sent to [facility] for rehab and was just discharged home from this facility 4 days ago. The patient presented to the emergency department on 03/19/22 after a fall at home. He has a chronic Felder in for urinary retention secondary to BPH. The patient states that it was last exchanged approximately 5 weeks ago in rehab. He states that he was told to follow up with urology after his last hospitalization admission. Abdomen/bladder ultrasound from 07/2021 shows a 1.7 cm hypoechoic lesion right kidney does not meet the criteria of a simple cyst. There is a bladder diverticulum which demonstrates wall irregularity. A mucosal lesion was not excluded. 03/20 The patient denies any history of kidney stones, previous urological surgeries, or frequent UTIs. He has a chronic Felder catheter for urinary retention secondary to BPH. He has been on Flomax 0.[address] Atwood and denies any dizziness. The patient's urine culture is pending, WBC 7.7, creatinine 0.8. The patient is afebrile and his vitals are stable. The patient states he is interested in procedures would allow him to be with a chronic Felder. Patient was told that he may not be a good surgical candidate for a prostatectomy given his multiple comorbidities and medical debility. 03/21 An abdomen/pelvic CT with and without contrast was ordered in follow-up of his renal/bladder ultrasound from July 2021. When the patient was sent down for his CT, he informed staff that he has a contrast ALLERGY and his CT was canceled. This contrast ALLERGY was not documented in his chart. The patient's creatinine this morning has increased to 1.32, from [age]-year-old upon admission. We will hold off on the CT scan at this time. The patient's Felder catheter was exchanged by nursing staff on 03/20/22 and is currently draining clear yellow urine. The patient's vital signs are stable, he has been afebrile, and is on 5 L O2. The patient's WBC was 7.7 on admission and, and is now 13.2. A preliminary urine culture shows Staphylococcus species. Antibiotics was will be started. A manual prostate exam was performed by Dr. Mcdonald. The patient's prostate is without nodules and is mildly enlarged. From an urological standpoint, the patient is okay to be discharged. He was informed that he will need to follow up in our office for urodynamic testing and cystoscopy. Objective - Vital Signs Vital signs: Vital Signs Temp 97.4 F L 03/22/22 07:00 Pulse 96 03/22/22 12:26 Resp 16 03/22/22 07:00 BP 113/64 03/22/22 07:00 Pulse Ox 96 03/22/22 12:22 FiO2 Intake & Output 03/21/22 03/22/22 03/22/22 18:59 06:59 18:59 Intake Total 720 118 Output Total 1025 Balance 720 -1025 118 Intake: Oral 720 118 Output: Urine 1025 Other: Voiding Method Indwelling Catheter Indwelling Catheter # Voids 1 - Exam General: Well developed, well nourished. No acute distress. Chronically ill appearing HEENT: Head is atraumatic, normocephalic. Lungs: Respirations slightly labored. On room 4L NC Abdomen/GI: Soft. No guarding, rigidity, or abdominal tenderness. : Felder catheter in place draining clear yellow urine Skin: Warm and dry, laceration to bridge of nose Neurologic: Awake, alert and oriented times 3. CN II-XII grossly intact. No focal deficits. Psychiatric: Appropriate mood and affect. - Labs CBC & Chem 7: 03/21/22 05:56 03/22/22 05:39 Labs: Abnormal Lab Results - Last 24 Hours (Table) 03/21/22 03/21/22 03/21/22 Range/Units 10:08 15:31 17:29 PT 52.2 H (9.0-12.0) sec INR 5.3 H* (<1.2) Carbon Dioxide (22-30) mmol/L BUN (9-20) mg/dL Glucose (74-99) mg/dL POC Glucose (mg/dL) 142 H (70-110) mg/dL Procalcitonin 2.77 H (0.02-0.09) ng/mL 03/21/22 03/22/22 03/22/22 Range/Units 21:51 05:39 05:39 PT 29.6 H (9.0-12.0) sec INR 3.0 H (<1.2) Carbon Dioxide 31 H (22-30) mmol/L BUN 55 H (9-20) mg/dL Glucose 134 H (74-99) mg/dL POC Glucose (mg/dL) 206 H (70-110) mg/dL Procalcitonin (0.02-0.09) ng/mL 03/22/22 03/22/22 Range/Units 05:43 12:23 PT (9.0-12.0) sec INR (<1.2) Carbon Dioxide (22-30) mmol/L BUN (9-20) mg/dL Glucose (74-99) mg/dL POC Glucose (mg/dL) 146 H 204 H (70-110) mg/dL Procalcitonin (0.02-0.09) ng/mL Microbiology - Last 24 Hours (Table) 03/19/22 16:18 Urine Culture - Final Urine,Clean Catch Methicillin resist S. aureus Assessment and Plan Assessment: The patient was seen sitting up in the chair. His Felder continues to drain clear yellow urine. The patient is afebrile and his vital signs are stable. Final urine culture growing MRSA. His Keflex was DC'd and started on Bactrim. This creatinine continues to improve and is 1.05 today. The patient is stable from a urological standpoint to be discharged back to [facility] with his Felder catheter in place. Our office will contact him to schedule a cystoscopy and urodynamic testing. Plan: - Continue monthly Felder catheter exchanges - Continue Bactrim - Follow up in our office with Dr. Mcdonald for further cystoscopy and urodynamic testing in 1-2 weeks Impression and plan of care have been directed as dictated by the signing physician. Jennifer Romo nurse practitioner acting as scribe for signing physician. Jennifer Romo [facility] Palliative Care/Urology Spectralink [email or web address] Email: [email or web address]
[2022-03-22] MEDS ORDERED: WARFARIN 1 MG TAB PO ONE (18:00)
--- NOTE | 2022-03-25 23:22 | CDI ---
Documentation Clarification Form Date: 03/25/2022 10:48:00 PM From: Ashanti Luong Phone: Admit Date: 03/21/2022 10:31:00 AM Patient Name: Ankur Pereira Visit Number: [id number] Discharge Date: 03/22/2022 1:30:00 PM ATTENTION: The Clinical Documentation Specialists (CDI) and [facility] Coding Staff appreciate your assistance in clarifying documentation. Please respond to the clarification below the line at the bottom and electronically sign. The CDI & [facility] Coding staff will review the response and follow-up if needed. Please note: Queries are made part of the Legal Health Record. If you have any questions, please contact the author of this message via ITS. Dr. Sae Rodriguez UTI is documented per Consult Note 03/20/22. Additional clarification regarding this diagnosis is requested. History/Risk Factors: 81yo M, UTI w MRSA w Felder, BPH w retention, debility, gaitdysfx, falling, Rt rib Fx x2, nose laceration, AECOPD, ACHRF, SHIRA on CKD III, dehydration, ACSHF, UTI w MRSA w Felder, HxT6 compression fx, DDD L5-S1, CM, PHTN, chronic A Fib, hypercoagulopathy, Rt renal cyst, bladder diverticulum, ETOH use, HTN, HLD, PVD, stentedAAA, Hx smoker, Anxiety, Depression Clinical Indicators: Vital Signs: WBC: 03/21 13.2H 03/19 7.7 Urinalysis: WBC,Urine (/hpf) 112H Urine Culture: Staphylococcus species; [place] Count>100,000 CFU /ML Treatment: Cephalexin initiated Please clarify the etiology of the UTI, if known: [ X ] Felder catheter [ ] UTI not related to catheter/urostomy [ ] Other condition, please specify [ ] Unable to determine (Template Last Revised: May 2020) MTDD
== END 2022-03-22 13:30 | DRG 698 ==
LOC: EC 10:40 → 6NMEDSUR 16:20 → OBSVTOIN 03-21 10:31
PROVIDERS: ADMIT Family Medicine; ATTEND Family Medicine
DX: T83.510A Infection and inflammatory reaction due to cystostomy catheter, initial encounter (principal); I50.23 Acute on chronic systolic (congestive) heart failure; J96.21 Acute and chronic respiratory failure with hypoxia; R64 Cachexia; D68.32 Hemorrhagic disorder due to extrinsic circulating anticoagulants; I42.9 Cardiomyopathy, unspecified; I13.0 Hypertensive heart and chronic kidney disease with heart failure and stage 1 through stage 4 chronic kidney disease, or unspecified chronic kidney disease; I48.20 Chronic atrial fibrillation, unspecified; M48.54XA Collapsed vertebra, not elsewhere classified, thoracic region, initial encounter for fracture; S22.41XA Multiple fractures of ribs, right side, initial encounter for closed fracture; J44.1 Chronic obstructive pulmonary disease with (acute) exacerbation; Q23.1 Congenital insufficiency of aortic valve; Z68.1 Body mass index [BMI] 19.9 or less, adult; I27.20 Pulmonary hypertension, unspecified; M41.56 Other secondary scoliosis, lumbar region; Z99.81 Dependence on supplemental oxygen; E86.0 Dehydration; N18.30 Chronic kidney disease, stage 3 unspecified; I73.9 Peripheral vascular disease, unspecified; F32.A Depression, unspecified; Z95.2 Presence of prosthetic heart valve; Z95.828 Presence of other vascular implants and grafts; N28.9 Disorder of kidney and ureter, unspecified; S01.21XA Laceration without foreign body of nose, initial encounter; N40.1 Benign prostatic hyperplasia with lower urinary tract symptoms; R29.6 Repeated falls; M85.80 Other specified disorders of bone density and structure, unspecified site; M51.37 Other intervertebral disc degeneration, lumbosacral region; M51.16 Intervertebral disc disorders with radiculopathy, lumbar region; N32.3 Diverticulum of bladder; N28.1 Cyst of kidney, acquired; F10.90 Alcohol use, unspecified, uncomplicated; E78.5 Hyperlipidemia, unspecified; M25.78 Osteophyte, vertebrae; F41.9 Anxiety disorder, unspecified; R26.81 Unsteadiness on feet; M47.817 Spondylosis without myelopathy or radiculopathy, lumbosacral region; R33.8 Other retention of urine; Z96.0 Presence of urogenital implants; I83.90 Asymptomatic varicose veins of unspecified lower extremity; L92.9 Granulomatous disorder of the skin and subcutaneous tissue, unspecified; B95.62 Methicillin resistant Staphylococcus aureus infection as the cause of diseases classified elsewhere; R53.81 Other malaise; M50.30 Other cervical disc degeneration, unspecified cervical region; M48.02 Spinal stenosis, cervical region; W01.198A Fall on same level from slipping, tripping and stumbling with subsequent striking against other object, initial encounter; Y73.1 Therapeutic (nonsurgical) and rehabilitative gastroenterology and urology devices associated with adverse incidents; Z86.79 Personal history of other diseases of the circulatory system; Y92.009 Unspecified place in unspecified non-institutional (private) residence as the place of occurrence of the external cause; Z79.01 Long term (current) use of anticoagulants; Z79.899 Other long term (current) drug therapy; Z87.19 Personal history of other diseases of the digestive system; Z87.891 Personal history of nicotine dependence; Z82.49 Family history of ischemic heart disease and other diseases of the circulatory system; Z91.81 History of falling; Z79.51 Long term (current) use of inhaled steroids; Z88.8 Allergy status to other drugs, medicaments and biological substances; Z91.048 Other nonmedicinal substance allergy status; Z91.041 Radiographic dye allergy status; Z86.19 Personal history of other infectious and parasitic diseases
CPT/HCPCS: 70450; 71045; 72072; 72100; 72125; 80048; 80053; 81001; 84132; 84145; 85025; 85610; 85730; 87077; 87086; 87186; 94640; 94760; 99285

== ENCOUNTER 2022-07-12 15:26 | Inpatient (IN) | payer MEDICARE, BC ==
[2022-07-12] MEDS ORDERED: ALBUTEROL NEBULIZED 2.5 MG/3 ML INHALATION STA (15:44)
[2022-07-12] MEDS ORDERED: methylPREDNISolone SOD SUCCI 125 MG/2 ML VIAL IV STA (15:44)
[2022-07-12] MEDS ORDERED: SODIUM CHLORIDE 0.9% 500 ML 500 ML IV STA (15:44)
[2022-07-12] MEDS ORDERED: IPRATROPIUM 0.5 MG/2.5 ML NEBU INHALATION STA (15:44)
[2022-07-12] MEDS ORDERED: cefTRIAXone IN SWFI 1,000 MG/10 ML SYRINGE IVP STA (15:45)
--- NOTE | 2022-07-12 15:53 | ED ---
General Adult HPI - General Chief complaint: Shortness of Breath Stated complaint: MANSI Time Seen by Provider: 07/12/22 15:30 Source: patient, EMS, RN notes reviewed, old records reviewed Mode of arrival: EMS - History of Present Illness Initial comments: This is an 82-year-old male who presents emergency Department from Dr. Atwood office. Patient is a COPD or according to Dr. Atwood patient was having a COPD exacerbation and he was concerned that the patient had pneumonia or COVID. Patient states he has been having a little more difficulty breathing lately he denies any fever chills per patient denies any chest pain or palpitations. Patient has abdominal pain patient has not vomiting diarrhea. Patient denies headache patient denies any numbness weakness. - Related Data Home Medications Medication Instructions Recorded Confirmed Calcium Carbonate/Vitamin D3 1 tab PO DAILY 03/19/22 05/05/22 [Calcium 500-Vit D3 5 Mcg (200 Iu)] Furosemide [Lasix] 60 mg PO HS 03/19/22 05/05/22 Cyanocobalamin [Vitamin B-12] 1,000 mcg PO DAILY 04/13/22 05/05/22 Furosemide [Lasix] 80 mg PO DAILY@0600 04/13/22 05/05/22 LORazepam [Ativan] 0.5 mg PO Q8HR@0600,1400,2200 04/13/22 05/05/22 Levalbuterol Tartrate 2 puff INHALATION RT-Q4H PRN 04/13/22 05/05/22 [Levalbuterol Tartrate 45 MCG Hfa] Omeprazole [PriLOSEC] 20 mg PO DAILY 04/13/22 05/05/22 Sennosides/Docusate Sodium [Senna 1 tab PO Q12H 04/13/22 05/05/22 Plus 8.6-50 mg Tablet] Umeclidinium [place] [Incruse 1 puff INHALATION RT-DAILY 04/13/22 05/05/22 Ellipta] Acetaminophen Tab [Tylenol] 650 mg PO Q6H PRN 05/05/22 05/05/22 Bisoprolol-Hctz 5-6.25 mg [Ziac 1 tab PO DAILY@0600 05/05/22 05/05/22 5-6.25 MG] Fluticasone Propion/Salmeterol 1 puff INHALATION RT-BID 05/05/22 05/05/22 [Wixela 100-50 Inhub] Ipratropium-Albuterol Nebulize 3 ml INHALATION RT-Q4H PRN 05/05/22 05/05/22 [Duoneb 0.5 mg-3 mg/3 ml Soln] Sacubitril/Valsartan [Entresto 24 1 tab PO BID 05/05/22 05/05/22 mg-26 mg Tablet] Sertraline [Zoloft] 50 mg PO HS 05/05/22 05/05/22 Previous Rx's Medication Instructions Recorded Levofloxacin [Levaquin] 250 mg PO DAILY 5 Days #5 tablet 05/07/22 Warfarin [Coumadin] 1 mg PO HS #5 tab 05/07/22 predniSONE 10 mg PO DIRECTED #30 tab 05/07/22 predniSONE 10 mg PO DAILY #0 05/07/22 Allergies Allergy/AdvReac Type Severity Reaction Status Date / Time empagliflozin Allergy Dyspnea Verified 07/12/22 15:33 [From Jardiance] iodine AdvReac Unknown Verified 07/12/22 15:33 pain med (can't remember Allergy Hallucinati Uncoded 07/12/22 15:33 name) ons Patches on chest Allergy Swelling, Uncoded 07/12/22 15:33 See Comment Review of Systems ROS Statement: Those systems with pertinent positive or pertinent negative responses have been documented in the HPI. ROS Other: All systems not noted in ROS Statement are negative. Past Medical History Past Medical History: Atrial Fibrillation, Heart Failure, COPD, GI Bleed, Hyp erlipidemia, Pneumonia, Renal Disease, Skin Disorder, Vascular Disorder Additional Past Medical History / Comment(s): GI bleed, gastritis, gastric ectasia, CKD stage III, past abdominal aortic aneurysm/had stent placed, varicosities, PVD, past shingellis and occasionally will have R flank nerve pain, BPH. Covid 09/2022 History of Any Multi-Drug Resistant Organisms: MRSA Date of last positivie culture/infection: 03/19/22 MDRO Source:: Urine Past Surgical History: Cardiac Valve Replacement, Cholecystectomy, Heart Catheterization Additional Past Surgical History / Comment(s): Stent placed for lower abd aortic aneurysym, mitral valve replacement/bicuspid repair, EGD with ablation, colonoscopy, excision L cheek lesion/mass and lesion from scalp/all benign, ZEPHER VALVE PLACED 2 YRS AGO AT [facility] Past Anesthesia/Blood Transfusion Reactions: No Reported Reaction Date of Last Stent Placement:: 2015 Past Psychological History: Anxiety Smoking Status: Former smoker Past Alcohol Use History: Occasional Past Drug Use History: None Reported - Past Family History Mother Family Medical History: Myocardial Infarction ([place]) Additional Family Medical History / Comment(s): at a young age. Father Family Medical History: Hypertension General Exam - General Exam Comments Initial Comments: GENERAL: Patient is well-developed and well-nourished. Patient is nontoxic and well- hydrated and is in mild distress. ENT: Neck is soft and supple. No significant lymphadenopathy is noted. Oropharynx is clear. Moist mucous membranes. Neck has full range of motion without eliciting any pain. EYES: The sclera were anicteric and conjunctiva were pink and moist. Extraocular movements were intact and pupils were equal round and reactive to light. Eyelids were unremarkable. PULMONARY: Patient has slight expiratory wheezing CARDIOVASCULAR: Patient is tachycardic in the 105 beats a minute ABDOMEN: Soft and nontender with normal bowel sounds. SKIN: Skin is clear with no lesions or rashes and otherwise unremarkable. NEUROLOGIC: Patient is alert and oriented x3. Cranial nerves II through XII are grossly intact. Motor and sensory are also intact. Normal speech, volume and content. Symmetrical smile. MUSCULOSKELETAL: Normal extremities with adequate strength and full range of motion. No lower e xtremity swelling or edema. No calf tenderness. LYMPHATICS: No significant lymphadenopathy is noted PSYCHIATRIC: Normal psychiatric evaluation. Course Vital Signs 07/12/22 07/12/22 07/12/22 15:29 16:13 16:27 Temperature 98.7 F Pulse Rate 106 H 100 Respiratory 18 22 Rate Blood Pressure 117/61 O2 Sat by Pulse 100 Oximetry 07/12/22 07/12/22 07/12/22 16:28 16:30 18:11 Temperature Pulse Rate 101 H 108 H 101 H Respiratory 18 18 Rate Blood Pressure 117/58 115/65 O2 Sat by Pulse 100 98 Oximetry Medical Decision Making - Medical Decision Making EKG was interpreted by myself shows a sinus tachycardia at 106 bpm ME interval 270 QRS is under 1290 QT interval 370 QTC is 432. Patient's EKG shows no ST segment elevation. Was pt. sent in by a medical professional or institution (TYSHAWN Perez, [employer], urgent care, hospital, or intermediate...) When possible be specific @ -Dr. Bey sent the patient in Did you speak to anyone other than the patient for history (EMS, parent, family, police, friend...)? What history was obtained from this source @ -Dr. Bey gave me a lot of history Did you review nursing and triage notes (agree or disagree)? Why? @ -[I reviewed and agree with nursing and triage notes] Were old charts reviewed (outside hosp., previous admission, EMS record, old EKG, old radiological studies, urgent care reports/EKG's, intermediate records)? Report findings @ -I reviewed prior lab work and x-rays on this patient Differential Diagnosis (chest pain, altered mental status, abdominal pain women, abdominal pain men, vaginal bleeding, weakness, fever, dyspnea, syncope, headache, dizziness, GI bleed, back pain, seizure, CVA, palpatations, mental health, musculoskeletal)? @ -Differential Dyspnea: Coronary syndrome, arrhythmia, tamponade, asthma, COPD, pulmonary embolism, pneumonia, pneumothorax, pulmonary effusion, anaphylaxis, diabetic ketoacidosis, flailed chest, pulmonary contusion, diaphragmatic rupture, anemia, ne uromuscular, this is not meant to be an all-inclusive list. EKG interpreted by me (3pts min.). @ -[As above] X-rays interpreted by me (1pt min.). @ -Chest x-ray shows no acute abnormality. that was interpreted by myself. CT interpreted by me (1pt min.). @ -[None done] U/S interpreted by me (1pt. min.). @ -[None done] What testing was considered but not performed or refused? (CT, X-rays, U/S, labs)? Why? @ -[None] What meds were considered but not given or refused? Why? @ -[None] Did you discuss the management of the patient with other professionals (professionals i.e. TYSHAWN Perez, [employer], lab, RT, psych nurse, social work lecturer, director commercial sales, teacher, forest fire officer, pillowcase folder)? Give summary @ -I spoke with Dr. garcia he agreed to admit the patient admitted the patient wrote admitting orders Was smoking cessation discussed for >3mins.? @ -[No] Was critical care preformed (if so, how long)? @ -[No] Were there social determinants of health that impacted care today? How? (Homelessness, low income, unemployed, alcoholism, drug addiction, transportation, low edu. Level, literacy, decrease access to med. care, usp, rehab)? @ -[No] Was there de-escalation of care discussed even if they declined (Discuss DNR or withdrawal of care, Hospice)? DNR status @ -[No] What co-morbidities impacted this encounter? (DM, HTN, Smoking, COPD, CAD, Cancer, CVA, ARF, Chemo, Hep., AIDS, mental health diagnosis, sleep apnea, morbid obesity)? @ -COPD exacerbation Was patient admitted / discharged? Hospital course, mention meds given and route, prescriptions, significant lab abnormalities, going to OR and other pertinent info. @ -Patient received multiple breathing treatments as well as steroids and antibiotics. I spoke with Dr. garcia he agreed with the patient admitted the patient wrote admitting orders I continue breathing treatments and steroids on the floor Undiagnosed new problem with uncertain prognosis? @ -[No] Drug Therapy requiring intensive monitoring for toxicity (Heparin, Nitro, Insulin, Cardizem)? @ -[No] Were any procedures done? @ -[No] Diagnosis/symptom? @ -COPD exacerbation Acute, or Chronic, or Acute on Chronic? @ -Acute Uncomplicated (without systemic symptoms) or Complicated (systemic symptoms)? @ -Complicated Side effects of treatment? @ -[No] Exacerbation, Progression, or Severe Exacerbation? @ -[No] Poses a threat to life or bodily function? How? (Chest pain, [place], [place], pneumonia, PE, COPD, DKA, ARF, appy, cholecystitis, CVA, Diverticulitis, Homicidal, Suicidal, threat to staff... and all critical care pts) @ -Yes this can lead to end organ dysfunction secondary to hypoxia - Lab Data Result diagrams: 07/12/22 16:06 07/12/22 16:06 Lab Results 07/12/22 07/12/22 07/12/22 Range/Units 16:06 16:06 16:06 WBC 7.7 (3.8-10.6) k/uL RBC 3.77 L (4.30-5.90) m/uL Hgb 10.8 L (13.0-17.5) gm/dL Hct 34.5 L (39.0-53.0) % MCV 91.6 (80.0-100.0) fL MCH 28.7 (25.0-35.0) pg MCHC 31.3 (31.0-37.0) g/dL RDW 14.2 (11.5-15.5) % Plt Count 308 (150-450) k/uL MPV 8.1 Neutrophils % 92 % Lymphocytes % 4 % Monocytes % 3 % Eosinophils % 0 % Basophils % 0 % Neutrophils # 7.0 (1.3-7.7) k/uL Lymphocytes # 0.3 L (1.0-4.8) k/uL Monocytes # 0.2 (0-1.0) k/uL Eosinophils # 0.0 (0-0.7) k/uL Basophils # 0.0 (0-0.2) k/uL Hypochromasia Slight PT 12.0 (9.0-12.0) sec INR 1.2 H (<1.2) APTT 24.6 (22.0-30.0) sec Sodium 132 L (137-145) mmol/L Potassium 3.9 (3.5-5.1) mmol/L Chloride 88 L (98-107) mmol/L Carbon Dioxide 35 H (22-30) mmol/L Anion Gap 9 mmol/L BUN 46 H (9-20) mg/dL Creatinine 1.04 (0.66-1.25) mg/dL Est GFR (CKD-EPI)AfAm 78 (>60 ml/min/1.73 sqM) Est GFR (CKD-EPI)NonAf 67 (>60 ml/min/1.73 sqM) Glucose 124 H (74-99) mg/dL Plasma Lactic Acid Jonas (0.7-2.0) mmol/L Calcium 8.7 (8.4-10.2) mg/dL Magnesium 2.0 (1.6-2.3) mg/dL Total Bilirubin 0.3 (0.2-1.3) mg/dL AST 31 (17-59) U/L ALT 24 (4-49) U/L Alkaline Phosphatase 55 (38-126) U/L Troponin I (0.000-0.034) ng/mL Total Protein 6.2 L (6.3-8.2) g/dL Albumin 3.8 (3.5-5.0) g/dL Influenza Type A (PCR) (Not Detectd) Influenza Type B (PCR) (Not Detectd) RSV (PCR) (Not Detectd) SARS-CoV-2 (PCR) (Not Detectd) 07/12/22 07/12/22 07/12/22 Range/Units 16:06 16:06 16:06 WBC (3.8-10.6) k/uL RBC (4.30-5.90) m/uL Hgb (13.0-17.5) gm/dL Hct (39.0-53.0) % MCV (80.0-100.0) fL MCH (25.0-35.0) pg MCHC (31.0-37.0) g/dL RDW (11.5-15.5) % Plt Count (150-450) k/uL MPV Neutrophils % % Lymphocytes % % Monocytes % % Eosinophils % % Basophils % % Neutrophils # (1.3-7.7) k/uL Lymphocytes # (1.0-4.8) k/uL Monocytes # (0-1.0) k/uL Eosinophils # (0-0.7) k/uL Basophils # (0-0.2) k/uL Hypochromasia PT (9.0-12.0) sec INR (<1.2) APTT (22.0-30.0) sec Sodium (137-145) mmol/L Potassium (3.5-5.1) mmol/L Chloride (98-107) mmol/L Carbon Dioxide (22-30) mmol/L Anion Gap mmol/L BUN (9-20) mg/dL Creatinine (0.66-1.25) mg/dL Est GFR (CKD-EPI)AfAm (>60 ml/min/1.73 sqM) Est GFR (CKD-EPI)NonAf (>60 ml/min/1.73 sqM) Glucose (74-99) mg/dL Plasma Lactic Acid Jonas 2.9 H* (0.7-2.0) mmol/L Calcium (8.4-10.2) mg/dL Magnesium (1.6-2.3) mg/dL Total Bilirubin (0.2-1.3) mg/dL AST (17-59) U/L ALT (4-49) U/L Alkaline Phosphatase (38-126) U/L Troponin I 0.039 H* (0.000-0.034) ng/mL Total Protein (6.3-8.2) g/dL Albumin (3.5-5.0) g/dL Influenza Type A (PCR) Not Detected (Not Detectd) Influenza Type B (PCR) Not Detected (Not Detectd) RSV (PCR) Not Detected (Not Detectd) SARS-CoV-2 (PCR) Not Detected (Not Detectd) Disposition Clinical Impression: COPD exacerbation Disposition: ADMITTED IP TO THIS HOSP Referrals: Tan Bey Jr, DO [Primary Care Provider] - 1-2 days Time of Disposition: 18:49
--- NOTE | 2022-07-12 16:04 | XR ---
EXAMINATION TYPE: XR chest 2V DATE OF EXAM: 07/12/2022 COMPARISON: Prior chest x-ray May 05, 2022 HISTORY: Difficulty in breathing. TECHNIQUE: Frontal and lateral views of the chest are obtained. FINDINGS: Chronic emphysematous and pulmonary fibrotic changes bilaterally are identified. Slightly e levated left hemidiaphragm redemonstrated. There is no suspicious focal air space opacity, pleural ef fusion, or pneumothorax seen. The cardiac silhouette size is stable and upper limits of normal. Ther e is metallic cardiac valve and additional cardiac valvular ring redemonstrated. Overlying sternal wi res are again seen. There is a stent graft just inferior to the aortic arch on lateral view of uncert ain etiology redemonstrated. Stent graft in the abdominal aorta is partially imaged. The osseous str uctures remain demineralized. Advanced compression type fracture midthoracic spine at roughly T8 leve l is redemonstrated. IMPRESSION: Chronic changes without new acute pulmonary process. No significant change from prior.
[2022-07-12 16:53] LABS: Basophils % (A) 0 %; Eosinophils % (A) 0 %; HCT 34.5 % (39.0-53.0); HGB 10.8 gm/dL (13.0-17.5); Hypochromasia Slight; Lymphocytes # (A) 0.3 k/uL (1.0-4.8); Lymphocytes % (A) 4 %; MCH 28.7 pg (25.0-35.0); MCHC 31.3 g/dL (31.0-37.0); MCV 91.6 fL (80.0-100.0); Mean Platelet Volume 8.1; Monocytes # (A) 0.2 k/uL (0-1.0); Monocytes % (A) 3 %; Neutrophils % (A) 92 %; Platelet Count 308 k/uL (150-450); RBC 3.77 m/uL (4.30-5.90); RDW 14.2 % (11.5-15.5); WBC 7.7 k/uL (3.8-10.6)
[2022-07-12 17:06] LABS: Albumin 3.8 g/dL (3.5-5.0); Calcium 8.7 mg/dL (8.4-10.2); Potassium 3.9 mmol/L (3.5-5.1); Total Bilirubin 0.3 mg/dL (0.2-1.3); Total Protein 6.2 g/dL (6.3-8.2)
[2022-07-12 17:11] LABS: INR 1.2 (<1.2); Partial Thromboplastin Time 24.6 sec (22.0-30.0)
[2022-07-12] MEDS ORDERED: IPRATROPIUM-ALBUTEROL 3 ML NEB INHALATION PRN (18:49)
[2022-07-12] MEDS ORDERED: NALOXONE 0.4 MG/ML 1 ML VIAL IVP PRN (18:49)
[2022-07-12] MEDS: IPRATROPIUM-ALBUTEROL 3 ML NEB INHALATION SCH (19:09)
[2022-07-12] MEDS: AMOXIC-POT CLAV 875-125MG 1 EACH TAB PO SCH (23:00)
[2022-07-12] MEDS: methylPREDNISolone SOD SUCCI 125 MG/2 ML VIAL IV SCH (23:04)
[2022-07-13] MEDS: methylPREDNISolone SOD SUCCI 125 MG/2 ML VIAL IV SCH ×4 (06:26→23:30)
[2022-07-13] MEDS: IPRATROPIUM-ALBUTEROL 3 ML NEB INHALATION SCH ×4 (08:05→21:37)
[2022-07-13] MEDS: LORazepam 1 MG TAB PO PRN ×2 (08:58→20:29)
[2022-07-13] MEDS ORDERED: ACETAMINOPHEN TAB 325 MG TAB PO PRN (09:25)
[2022-07-13] MEDS ORDERED: FUROSEMIDE 80 MG TAB PO SCH (09:30)
[2022-07-13] MEDS: FUROSEMIDE 80 MG TAB PO SCH (09:58)
[2022-07-13] MEDS: CYANOCOBALAMIN 500 MCG TAB PO SCH (09:58)
[2022-07-13] MEDS: AMOXIC-POT CLAV 875-125MG 1 EACH TAB PO SCH ×2 (09:58→20:29)
[2022-07-13] MEDS: SACUBITRIL/VALSARTAN 24 MG-26 MG TABLET PO SCH ×2 (09:58→20:32)
--- NOTE | 2022-07-13 12:29 | P.CNPUL ---
History of Present Illness Consult date: 07/13/22 Reason for consult: dyspnea History of present illness: This is a very pleasant 82-year-old male patient with a known history of chronic obstructive pulmonary disease, atrial fibrillation, congestive heart failure, hyperlipidemia, previous GI bleed, chronic kidney disease stage III, previous aortic aneurysm stent placement, peripheral vascular disease, mitral valve replacement, anxiety, former smoker, history of daily alcohol use. The patient has had multiple admissions for COPD and CHF exacerbations. He is recently residing at [facility] the patient currently docile yesterday because of worsening shortness of breath. He was seeing his primary care physician, Dr. Maddox currently and he was noted to have some diminished breath sounds bilaterally and he was also noted to have some increased shortness of breath. For that reason, he was directed to the emergency department. He has no nausea or vomiting or abdominal pain. No headaches. No altered mentation. He remains in atrial fibrillation. The WBC count is at 7.7 with a hemoglobin of 10.8 and a platelet count of 308. His INR is at 1.2 with a PT of 12. BUN is 46 with a creatinine of 1.04 and sodium level is 132. Lactic acid level was high as 2.5- 1.1. Troponins Are 0.03 and 0.02 Respectively. LFTs Are Normal. Influenza Screen, Covid 19 and RSV Were All Negative. Is on Home O2 at 3 L and He Remains on 3 L of Oxygen by Nasal Cannula. Chest X-Ray Shows Chronic Changes without Any Acute Cardiac Pulmonary Abnormalities. Review of Systems CONSTITUTIONAL: Generalized weakness Denies any recent significant weight loss or weight gain. EYES: Denies change in vision. EARS, NOSE, MOUTH, THROAT: Denies headaches, denies sore throat. CARDIOVASCULAR: Denies chest pain, palpitations or syncopal episodes. RESPIRATORY: Positive for shortness of breath, cough, congestion no hemoptysis. The patient is known to have chronic exertional dyspnea GASTROINTESTINAL: Denies change in appetite, denies abdominal pain GENITOURINARY: Denies hematuria, denies infections. MUSKULOSKELETAL: Denies pain, denies swelling. INTEGUMENTARY: Denies rash, denies eczema. NEUROLOGICAL: Denies recent memory loss, no recent seizure activity. PSYCHIATRIC: Denies anxiety, denies depression. HEMATOLOGIC/LYMPHATIC: Denies anemia, denies enlarged lymph nodes. Past Medical History Past Medical History: Atrial Fibrillation, Heart Failure, COPD, GI Bleed, Hyperlipidemia, Pneumonia, Renal Disease, Skin Disorder, Vascular Disorder Additional Past Medical History / Comment(s): GI bleed, gastritis, gastric ectasia, CKD stage III, past abdominal aortic aneurysm/had stent placed, varicosities, PVD, past shingellis and occasionally will have R flank nerve pain, BPH. Covid 09/2022 History of Any Multi-Drug Resistant Organisms: MRSA Date of last positivie culture/infection: 03/19/22 MDRO Source:: Urine Past Surgical History: Cardiac Valve Replacement, Cholecystectomy, Heart Catheterization Additional Past Surgical History / Comment(s): Stent placed for lower abd aortic aneurysym, mitral valve replacement/bicuspid repair, EGD with ablation, colonoscopy, excision L cheek lesion/mass and lesion from scalp/all benign, ZEPHER VALVE PLACED 2 YRS AGO AT [facility] Past Anesthesia/Blood Transfusion Reactions: No Reported Reaction Date of Last Stent Placement:: 2015 Past Psychological History: Anxiety Smoking Status: Former smoker Past Alcohol Use History: Occasional Past Drug Use History: None Reported - Past Family History Mother Family Medical History: Myocardial Infarction ([place]) Additional Family Medical History / Comment(s): at a young age. Father Family Medical History: Hypertension Medications and Allergies Home Medications Medication Instructions Recorded Confirmed Type Furosemide [Lasix] 40 mg PO HS 03/19/22 07/12/22 History Cyanocobalamin [Vitamin B-12] 1,000 mcg PO DAILY 04/13/22 07/12/22 History Furosemide [Lasix] 80 mg PO DAILY 04/13/22 07/12/22 History Levalbuterol Tartrate 2 puff INHALATION RT-Q4H PRN 04/13/22 07/12/22 History [Levalbuterol Tartrate 45 MCG Hfa] Sennosides/Docusate Sodium [Senna 1 tab PO HS 04/13/22 07/12/22 History Plus 8.6-50 mg Tablet] Umeclidinium [place] [Incruse 1 puff INHALATION RT-DAILY 04/13/22 07/12/22 History Ellipta] Acetaminophen Tab [Tylenol] 650 mg PO Q6H PRN 05/05/22 07/12/22 History Fluticasone Propion/Salmeterol 1 puff INHALATION RT-BID 05/05/22 07/12/22 History [Wixela 100-50 Inhub] Ipratropium-Albuterol Nebulize 3 ml INHALATION RT-BID 05/05/22 07/12/22 History [Duoneb 0.5 mg-3 mg/3 ml Soln] Sacubitril/Valsartan [Entresto 24 1 tab PO BID 05/05/22 07/12/22 History mg-26 mg Tablet] Sertraline [Zoloft] 50 mg PO HS 05/05/22 07/12/22 History predniSONE 10 mg PO DAILY #0 05/07/22 07/12/22 Rx LORazepam [Ativan] 0.5 - 1 mg PO QID 07/12/22 07/12/22 History Warfarin [Coumadin] 2 mg PO HS 07/12/22 07/12/22 History Allergies Allergy/AdvReac Type Severity Reaction Status Date / Time empagliflozin Allergy Dyspnea Verified 07/12/22 19:11 [From Jardiance] iodine AdvReac Unknown Verified 07/12/22 19:11 pain med (can't remember Allergy Hallucinati Uncoded 07/12/22 19:11 name) ons Patches on chest Allergy Swelling, Uncoded 07/12/22 19:11 See Comment Physical Exam Vitals: Vital Signs Temp Pulse Resp BP Pulse Ox 07/13/22 10:03 110 H 20 104/67 95 07/13/22 08:43 102 H 18 127/64 98 07/13/22 08:15 105 H 07/13/22 08:09 99 07/13/22 08:05 103 H 07/13/22 06:28 97 18 104/64 96 07/13/22 04:22 86 18 106/63 99 07/12/22 23:11 105 H 20 98/56 95 07/12/22 19:18 100 07/12/22 19:11 101 H 07/12/22 18:11 101 H 18 115/65 98 07/12/22 16:30 108 H 07/12/22 16:28 101 H 18 117/58 100 07/12/22 16:27 22 07/12/22 16:13 100 07/12/22 15:29 98.7 F 106 H 18 117/61 100 Intake and Output 07/12/22 07/13/22 07/13/22 22:59 06:59 14:59 Other: Weight 53.977 kg GENERAL EXAM: Alert, very pleasant 82-year-old male, on 3 L nasal cannula, comfortable in no apparent distress. HEAD: Normocephalic. EYES: Normal reaction of pupils, equal size. NOSE: Clear with pink turbinates. THROAT: No erythema or exudates. NECK: No masses, no JVD. CHEST: No chest wall deformity. LUNGS: Equal air entry with faint crackles in the posterior bases. The patient also has few crackles in lung bases bilaterally along with scattered expiratory wheeze CVS: Irregular S1 and S2 normal with no audible murmur, irregular rhythm. ABDOMEN: No hepatosplenomegaly, normal bowel sounds, no guarding or rigidity. SPINE: No scoliosis or deformity SKIN: No rashes CENTRAL NERVOUS SYSTEM: No focal deficits, tone is normal in all 4 extremities. EXTREMITIES: There is no peripheral edema. No clubbing, no cyanosis. Peripheral pulses are intact. Results - Laboratory Findings CBC and BMP: 07/12/22 16:06 07/12/22 16:06 PT/INR, D-dimer PT 12.0 sec (9.0-12.0) 07/12/22 16:06 INR 1.2 (<1.2) H 07/12/22 16:06 Abnormal lab findings: Abnormal Labs 07/12/22 07/12/22 07/12/22 16:06 16:06 16:06 RBC 3.77 L Hgb 10.8 L Hct 34.5 L Lymphocytes # 0.3 L INR 1.2 H Sodium 132 L Chloride 88 L Carbon Dioxide 35 H BUN 46 H Glucose 124 H Plasma Lactic Acid Jonas Troponin I Total Protein 6.2 L 07/12/22 07/12/22 16:06 16:06 RBC Hgb Hct Lymphocytes # INR Sodium Chloride Carbon Dioxide BUN Glucose Plasma Lactic Acid Jonas 2.9 H* Troponin I 0.039 H* Total Protein - Diagnostic Findings Chest x-ray: image reviewed Assessment and Plan Plan: Acute exacerbation of chronic COPD/CHF with secondary shortness of breath Chronic hypoxemic respiratory failure, maintained on home O2 between 3 and 4 L of oxygen by nasal cannula. No interval worsening and oxygenation Chronic obstructive pulmonary disease, severe advanced and the patient is oxygen dependent Systolic heart failure with an ejection fraction of 25-30% History of mitral valve replacement that was done [facility] back in 2014 and the patient had a repair of a bicuspid aortic valve Abdominal aortic aneurysm with previous endovascular stent grafting Former smoker History of atrial fibrillation, maintained on warfarin and the PT/INR subtherapeutic History of CHF History of GI bleed Hyperlipidemia History of pneumonia History of stage III chronic kidney disease History of peripheral vascular disease History of benign prostatic hypertrophy Poor overall functional performance based on the above-mentioned multiple comorbidities Plan Titrate oxygen flow to maintain saturation above 90% currently on 3 L Continue bronchodilators Continue steroids and the patient is currently on IV Solu-Medrol 60 mg every 6 hours Oral antibiotics with Augmentin Continue oral diuretics PT/INR subtherapeutic and the patient is on Coumadin. Coumadin level and also needs to be adjusted We'll continue to follow. Resume all medications. Cardiology consultation.
[2022-07-13] MEDS: ENOXAPARIN 40 MG/0.4 ML SYRINGE SQ SCH (12:52)
--- NOTE | 2022-07-13 13:36 | P.HPIM ---
History of Present Illness H&P Date: 07/13/22 Chief Complaint: Shortness of breath This is a 82-year-old male although the practice. He is oxygen and steroid dependent COPD. He was in the office yesterday and was very winded and dyspneic. His pulse ox is 73% after ambulating from the waiting room to the [facility] room. Dr. elizondo it seen him and sent him the emergency room for further evaluation. This morning he is feeling much better. Denies any chest pains nausea and vomiting. He has a history of COPD, oxygen dependent, atrial fibrillation chronic systolic CHF, CKD3a, and multiple other medical issues. Former smoker. He rarely resides at [facility] on April 27 2022, he had been in and out of [facility] several times previously to this. Review of Systems All systems: negative Past Medical History Past Medical History: Atrial Fibrillation, Heart Failure, COPD, GI Bleed, Hyperlipidemia, Pneumonia, Renal Disease, Skin Disorder, Vascular Disorder Additional Past Medical History / Comment(s): GI bleed, gastritis, gastric ectasia, CKD stage III, past abdominal aortic aneurysm/had stent placed, varicosities, PVD, past shingellis and occasionally will have R flank nerve pain, BPH. Covid 09/2022 History of Any Multi-Drug Resistant Organisms: MRSA Date of last positivie culture/infection: 03/19/22 MDRO Source:: Urine Past Surgical History: Cardiac Valve Replacement, Cholecystectomy, Heart Catheterization Additional Past Surgical History / Comment(s): Stent placed for lower abd aortic aneurysym, mitral valve replacement/bicuspid repair, EGD with ablation, colo noscopy, excision L cheek lesion/mass and lesion from scalp/all benign, ZEPHER VALVE PLACED 2 YRS AGO AT [facility] Past Anesthesia/Blood Transfusion Reactions: No Reported Reaction Date of Last Stent Placement:: 2015 Past Psychological History: Anxiety Smoking Status: Former smoker Past Alcohol Use History: Occasional Past Drug Use History: None Reported - Past Family History Mother Family Medical History: Myocardial Infarction ([place]) Additional Family Medical History / Comment(s): at a young age. Father Family Medical History: Hypertension Medications and Allergies Home Medications Medication Instructions Recorded Confirmed Type Furosemide [Lasix] 40 mg PO HS 03/19/22 07/12/22 History Cyanocobalamin [Vitamin B-12] 1,000 mcg PO DAILY 04/13/22 07/12/22 History Furosemide [Lasix] 80 mg PO DAILY 04/13/22 07/12/22 History Levalbuterol Tartrate 2 puff INHALATION RT-Q4H PRN 04/13/22 07/12/22 History [Levalbuterol Tartrate 45 MCG Hfa] Sennosides/Docusate Sodium [Senna 1 tab PO HS 04/13/22 07/12/22 History Plus 8.6-50 mg Tablet] Umeclidinium Montreat [Incruse 1 puff INHALATION RT-DAILY 04/13/22 07/12/22 History Ellipta] Acetaminophen Tab [Tylenol] 650 mg PO Q6H PRN 05/05/22 07/12/22 History Fluticasone Propion/Salmeterol 1 puff INHALATION RT-BID 05/05/22 07/12/22 History [Wixela 100-50 Inhub] Ipratropium-Albuterol Nebulize 3 ml INHALATION RT-BID 05/05/22 07/12/22 History [Duoneb 0.5 mg-3 mg/3 ml Soln] Sacubitril/Valsartan [Entresto 24 1 tab PO BID 05/05/22 07/12/22 History mg-26 mg Tablet] Sertraline [Zoloft] 50 mg PO HS 05/05/22 07/12/22 History predniSONE 10 mg PO DAILY #0 05/07/22 07/12/22 Rx LORazepam [Ativan] 0.5 - 1 mg PO QID 07/12/22 07/12/22 History Warfarin [Coumadin] 2 mg PO HS 07/12/22 07/12/22 History Allergies Allergy/AdvReac Type Severity Reaction Status Date / Time empagliflozin Allergy Dyspnea Verified 07/12/22 19:11 [From Jardiance] iodine AdvReac Unknown Verified 07/12/22 19:11 pain med (can't remember Allergy Hallucinati Uncoded 07/12/22 19:11 name) ons Patches on chest Allergy Swelling, Uncoded 07/12/22 19:11 See Comment Physical Exam Vitals: Vital Signs Temp Pulse Resp BP Pulse Ox 07/13/22 12:07 96 07/13/22 11:58 94 07/13/22 10:03 110 H 20 104/67 95 05/12/23 08:43 102 H 18 127/64 98 07/13/22 08:15 105 H 07/13/22 08:09 99 07/13/22 08:05 103 H 07/13/22 06:28 97 18 104/64 96 07/13/22 04:22 86 18 106/63 99 07/12/22 23:11 105 H 20 98/56 95 07/12/22 19:18 100 07/12/22 19:11 101 H 07/12/22 18:11 101 H 18 115/65 98 07/12/22 16:30 108 H 07/12/22 16:28 101 H 18 117/58 100 07/12/22 16:27 22 07/12/22 16:13 100 07/12/22 15:29 98.7 F 106 H 18 117/61 100 Intake and Output 07/12/22 07/13/22 07/13/22 22:59 06:59 14:59 Other: Weight 53.977 kg General: Patient awake, alert and oriented times 3. Patient in minimal distress Shortness of breath HEENT: PERRLA EOMI Neck: No thyromegaly or lymphadenopathy noted Cardiac: Heart regular in rate and rhythm with ectopy noted.. No S3. No S4. No clicks, rubs. 1/6 systolic murmur consistent with his aortic valve replacement Lungs: Diminished breath sounds bilaterally with bibasilar wheezes and rhonchi (close to baseline) Abdomen: No mass. No organomegaly. Bowel sounds presnt and normoactive in all 4 quadrants.] Extremes: [No edema no cyanosis no claudication normal pulses : indwelling Felder catheter Musculoskeletal: [No joint erythema, edema or tenderness.] Skin: [No rash.] Neurologic: [No lateralizing deficits. CN II - XII grossly intact.] Results CBC & Chem 7: 07/12/22 16:06 07/12/22 16:06 Labs: Abnormal Lab Results - Last 24 Hours (Table) 07/12/22 07/12/22 07/12/22 Range/Units 16:06 16:06 16:06 RBC 3.77 L (4.30-5.90) m/uL Hgb 10.8 L (13.0-17.5) gm/dL Hct 34.5 L (39.0-53.0) % Lymphocytes # 0.3 L (1.0-4.8) k/uL INR 1.2 H (<1.2) Sodium 132 L (137-145) mmol/L Chloride 88 L (98-107) mmol/L Carbon Dioxide 35 H (22-30) mmol/L BUN 46 H (9-20) mg/dL Glucose 124 H (74-99) mg/dL Plasma Lactic Acid Jonas (0.7-2.0) mmol/L Troponin I (0.000-0.034) ng/mL Total Protein 6.2 L (6.3-8.2) g/dL 07/12/22 07/12/22 Range/Units 16:06 16:06 RBC (4.30-5.90) m/uL Hgb (13.0-17.5) gm/dL Hct (39.0-53.0) % Lymphocytes # (1.0-4.8) k/uL INR (<1.2) Sodium (137-145) mmol/L Chloride (98-107) mmol/L Carbon Dioxide (22-30) mmol/L BUN (9-20) mg/dL Glucose (74-99) mg/dL Plasma Lactic Acid Jonas 2.9 H* (0.7-2.0) mmol/L Troponin I 0.039 H* (0.000-0.034) ng/mL Total Protein (6.3-8.2) g/dL Chest x-ray: report reviewed Thrombosis Risk Factor Assmnt - DVT/VTE Prophylaxis DVT/VTE Prophylaxis: Pharmacologic Prophylaxis ordered (Continue his Coumadin use) Assessment and Plan (1) COPD exacerbation Current Visit: Yes Status: Acute Code(s): J44.1 - CHRONIC OBSTRUCTIVE PULMONARY DISEASE W (ACUTE) EXACERBATION SNOMED Code(s): 526554474 (2) Acute and chronic respiratory failure with hypoxia Current Visit: No Status: Acute Code(s): J96.21 - ACUTE AND CHRONIC RESPIRATORY FAILURE WITH HYPOXIA SNOMED Code(s): 11437494 (3) Anemia Current Visit: No Status: Acute Code(s): D64.9 - ANEMIA, UNSPECIFIED SNOMED Code(s): 566785620 (4) Degenerative scoliosis in adult patient Current Visit: No Status: Acute Code(s): M41.50 - OTHER SECONDARY SCOLIOSIS, SITE UNSPECIFIED SNOMED Code(s): 450179244 (5) H/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 Current Visit: No Status: Acute Code(s): Z95.3 - PRESENCE OF XENOGENIC HEART VALVE SNOMED Code(s): 873412808 (6) History of endovascular stent graft for abdominal aortic aneurysm (AAA) Current Visit: No Status: Acute Code(s): Z95.828 - PRESENCE OF OTHER VASCULAR IMPLANTS AND GRAFTS SNOMED Code(s): 138047224936898 (7) long-term current use of anticoagulant therapy Current Visit: No Status: Acute Code(s): Z79.01 - BUSINESS ANALYSIS ANALYST (CURRENT) USE OF ANTICOAGULANTS SNOMED Code(s): 527528179 (8) Mixed hyperlipidemia Current Visit: No Status: Acute Code(s): E78.2 - MIXED HYPERLIPIDEMIA SNOMED Code(s): 722788173 (9) Paroxysmal atrial fibrillation Current Visit: No Status: Acute Code(s): I48.0 - PAROXYSMAL ATRIAL FIBRILLATION SNOMED Code(s): 871465850 (10) Pulmonary hypertension Current Visit: No Status: Acute Code(s): I27.20 - PULMONARY HYPERTENSION, UNSPECIFIED SNOMED Code(s): 18304062 (11) Stage III chronic kidney disease Current Visit: No Status: Acute Code(s): N18.30 - CHRONIC KIDNEY DISEASE, ST AGE 4 UNSPECIFIED SNOMED Code(s): 510531458 (12) Systolic congestive heart failure Current Visit: No Status: Acute Code(s): I50.20 - UNSPECIFIED SYSTOLIC (CONGESTIVE) HEART FAILURE SNOMED Code(s): 02843517 Plan: He will restart his home medications. He'll continue IV steroids and antibiotics. Repeat labs in a.m. We done pulmonology recommendations, reevaluate next 24 hours.
[2022-07-13] MEDS ORDERED: IPRATROPIUM-ALBUTEROL 3 ML NEB INHALATION SCH (20:00)
[2022-07-13 20:26] LABS: Glucose,Whole Blood 175 mg/dL (70-110)
[2022-07-13] MEDS: SENNOSIDES-DOCUSATE SODIUM 1 EACH TAB PO SCH (20:29)
[2022-07-13] MEDS: FUROSEMIDE 40 MG TAB PO SCH (20:29)
[2022-07-13] MEDS: SERTRALINE 50 MG TAB PO SCH (20:29)
[2022-07-13] MEDS: WARFARIN 1 MG TAB PO SCH (21:37)
[2022-07-13] MEDS: SYMBICORT 80-4.5 MCG INHALER INHALATION SCH (21:37)
[2022-07-13] MEDS: MELATONIN 3 MG TABLET PO SCH (21:38)
[2022-07-14] MEDS: LORazepam 1 MG TAB PO PRN ×3 (05:09→21:06)
[2022-07-14] MEDS: methylPREDNISolone SOD SUCCI 125 MG/2 ML VIAL IV SCH ×3 (05:10→17:13)
[2022-07-14 05:55] LABS: Glucose,Whole Blood 162 mg/dL (70-110)
[2022-07-14] MEDS: INSULIN ASPART (NovoLOG) 100 UNIT/ML VIAL SQ SCH ×4 (06:01→21:32)
[2022-07-14] MEDS: CYANOCOBALAMIN 500 MCG TAB PO SCH (08:37)
[2022-07-14] MEDS: FUROSEMIDE 80 MG TAB PO SCH (08:37)
[2022-07-14] MEDS: ENOXAPARIN 40 MG/0.4 ML SYRINGE SQ SCH (08:38)
[2022-07-14] MEDS: AMOXIC-POT CLAV 875-125MG 1 EACH TAB PO SCH ×2 (08:38→21:06)
[2022-07-14] MEDS: SACUBITRIL/VALSARTAN 24 MG-26 MG TABLET PO SCH ×2 (08:38→21:06)
[2022-07-14] MEDS: SYMBICORT 80-4.5 MCG INHALER INHALATION SCH ×2 (08:52→20:10)
[2022-07-14] MEDS: IPRATROPIUM-ALBUTEROL 3 ML NEB INHALATION SCH ×4 (08:53→20:10)
[2022-07-14 10:18] LABS: INR 1.1 (<1.2); Prothrombin Time 11.6 sec (9.0-12.0)
[2022-07-14 11:51] LABS: Glucose,Whole Blood 141 mg/dL (70-110)
--- NOTE | 2022-07-14 11:52 | P.PN ---
Subjective Progress Note Date: 07/14/22 This is a very pleasant 82-year-old male patient with a known history of chronic obstructive pulmonary disease, atrial fibrillation, congestive heart failure, hyperlipidemia, previous GI bleed, chronic kidney disease stage III, previous aortic aneurysm stent placement, peripheral vascular disease, mitral valve replacement, anxiety, former smoker, history of daily alcohol use. The patient has had multiple admissions for COPD and CHF exacerbations. He is recently residing at [facility] the patient currently docile yesterday because of worsening shortness of breath. He was seeing his primary care physician, Dr. Maddox currently and he was noted to have some diminished breath sounds bilatera lly and he was also noted to have some increased shortness of breath. For that reason, he was directed to the emergency department. He has no nausea or vomiting or abdominal pain. No headaches. No altered mentation. He remains in atrial fibrillation. The WBC count is at 7.7 with a hemoglobin of 10.8 and a platelet count of 308. His INR is at 1.2 with a PT of 12. BUN is 46 with a creatinine of 1.04 and sodium level is 132. Lactic acid level was high as 2.5- 1.1. Troponins Are 0.03 and 0.02 Respectively. LFTs Are Normal. Influenza Screen, Covid 19 and RSV Were All Negative. Is on Home O2 at 3 L and He Remains on 3 L of Oxygen by Nasal Cannula. Chest X-Ray Shows Chronic Changes without Any Acute Cardiac Pulmonary Abnormalities. On today's evaluation of 07/16/2022, the patient is feeling slightly better compared to yesterday. The patient was seen yesterday for exacerbation of COPD/CHF. The patient is currently on Symbicort, DuoNeb about treatments [id number], oral Lasix, IV Solu-Medrol. He remains on oxygen 3 L/m nasal cannula. No new labs are available from today. Objective - Vital Signs Vital signs: Vital Signs Temp 97.5 F L 07/14/22 08:34 Pulse 98 07/14/22 09:02 Resp 18 07/14/22 08:34 BP 120/58 07/14/22 08:34 Pulse Ox 88 L 07/14/22 11:06 FiO2 Intake & Output 07/13/22 07/14/22 07/14/22 18:59 06:59 18:59 Intake Total 100 118 Output Total 1000 1125 Balance -900 -1125 118 Intake: Oral 100 118 Output: Urine 1000 1125 Other: Voiding Method Diaper Diaper Indwelling Catheter Indwelling Catheter Indwelling Catheter - Exam GENERAL EXAM: Alert, very pleasant 82-year-old male, on 3 L nasal cannula, comfortable in no apparent distress. HEAD: Normocephalic. EYES: Normal reaction of pupils, equal size. NOSE: Clear with pink turbinates. THROAT: No erythema or exudates. NECK: No masses, no JVD. CHEST: No chest wall deformity. LUNGS: Equal air entry with faint crackles in the posterior bases. The patient also has few crackles in lung bases bilaterally along with scattered expiratory wheeze CVS: Irregular S1 and S2 normal with no audible murmur, irregular rhythm. ABDOMEN: No hepatosplenomegaly, normal bowel sounds, no guarding or rigidity. SPINE: No scoliosis or deformity SKIN: No rashes CENTRAL NERVOUS SYSTEM: No focal deficits, tone is normal in all 4 extremities. EXTREMITIES: There is no peripheral edema. No clubbing, no cyanosis. Peripheral pulses are intact. - Labs CBC & Chem 7: 07/12/22 16:06 07/12/22 16:06 Labs: Abnormal Lab Results - Last 24 Hours (Table) 07/13/22 07/14/22 Range/Units 20:24 05:54 POC Glucose (mg/dL) 175 H 162 H (70-110) mg/dL Assessment and Plan Plan: Acute exacerbation of chronic COPD/CHF with secondary shortness of breath Chronic hypoxemic respiratory failure, maintained on home O2 between 3 and 4 L of oxygen by nasal cannula. No interval worsening and oxygenation Chronic obstructive pulmonary disease, severe advanced and the patient is oxygen dependent Systolic heart failure with an ejection fraction of 25-30% History of mitral valve replacement that was done [facility] back in 2014 and the patient had a repair of a bicuspid aortic valve Abdominal aortic aneurysm with previous endovascular stent grafting Former smoker History of atrial fibrillation, maintained on warfarin and the PT/INR subtherapeutic History of CHF History of GI bleed Hyperlipidemia History of pneumonia History of stage III chronic kidney disease History of peripheral vascular disease History of benign prostatic hypertrophy Poor overall functional performance based on the above-mentioned multiple comorbidities Plan Slightly improved compared to yesterday Continue same treatment Titrate oxygen flow to maintain saturation above 90% currently on 3 L Continue bronchodilators Continue steroids and the patient is currently on IV Solu-Medrol 60 mg every 6 hours Oral antibiotics with Augmentin Continue oral diuretics PT/INR subtherapeutic and the patient is on Coumadin. Coumadin level and also needs to be adjusted. INR from today is at 1.1 We'll continue to follow. Resume all medications. Cardiology consultation.
[2022-07-14 13:47] VITALS: BMI 17.0
--- NOTE | 2022-07-14 14:37 | P.PN ---
Subjective 07/13/22 This is a 82-year-old male although the practice. He is oxygen and steroid dependent COPD. He was in the office yesterday and was very winded and dyspneic. His pulse ox is 73% after ambulating from the waiting room to the exam room. currently it seen him and sent him the emergency room for further evaluation. This morning he is feeling much better. Denies any chest pains nausea and vomiting. He has a history of COPD, oxygen dependent, atrial fibrillation chronic systolic CHF, CKD3a, and multiple other medical issues. Former smoker. He rarely resides at [facility] on April 27 2022, he had been in and out of [facility] several times previously to this. 07/14/2022: patient hasc/o of weakenss today. Breathing is better. He asked abotu ECF for a few days. He h\denies any chest pain pressure, nausea or vomiting. He has chronic SOB witbh exertion. Vitals are stable, but he does have some tachycardia with exertion.Labs show INR 1.1. He remains on Coumadin per protocol and leovenox for subtheraputic coverage. blood cultures negative. Pulmonology following. Objective - Vital Signs Vital signs: Vital Signs Temp 97.6 F 07/14/22 04:00 Pulse 94 07/14/22 04:00 Resp 18 07/14/22 04:00 BP 115/59 07/14/22 04:00 Pulse Ox 97 07/14/22 04:00 FiO2 Intake & Output 07/13/22 07/14/22 07/14/22 18:59 06:59 18:59 Intake Total 100 Output Total 1000 1125 Balance -900 -1125 Intake: Oral 100 Output: Urine 1000 1125 Other: Voiding Method Diaper Diaper Indwelling Catheter Indwelling Catheter - Exam General: Patient awake, alert and oriented times 3. Patient in minimal distress Shortness of breath Neck: No thyromegaly or lymphadenopathy noted Cardiac: Heart regular in rate and rhythm with ectopy noted.. No S3. No S4. No clicks, rubs. 1/6 systolic murmur consistent with his aortic valve replacement Lungs: Diminished breath sounds bilaterally imroved from yesterday, no wheeze at this time Abdomen: No mass. No organomegaly. Bowel sounds presnt and normative in all 4 quadrants.] Extremes: [No edema no cyanosis no claudication normal pulses : indwelling Felder catheter Musculoskeletal: [No joint erythema, edema or tenderness.] Skin: [No rash.] Neurologic: [No lateralizing deficits. CN II - XII grossly intact.] - Labs CBC & Chem 7: 07/12/22 16:06 07/12/22 16:06 Labs: Abnormal Lab Results - Last 24 Hours (Table) 07/13/22 07/14/22 Range/Units 20:24 05:54 POC Glucose (mg/dL) 175 H 162 H (70-110) mg/dL Assessment and Plan (1) COPD exacerbation Current Visit: Yes Status: Acute Code(s): J44.1 - CHRONIC OBSTRUCTIVE PULMONARY DISEASE W (ACUTE) EXACERBATION SNOMED Code(s): 765162377 (2) Acute and chronic respiratory failure with hypoxia Current Visit: No Status: Acute Code(s): J96.21 - ACUTE AND CHRONIC RESPIRATORY FAILURE WITH HYPOXIA SNOMED Code(s): 43498561 (3) Anemia Current Visit: No Status: Acute Code(s): D64.9 - ANEMIA, UNSPECIFIED SNOMED Code(s): 517363499 (4) Degenerative scoliosis in adult patient Current Visit: No Status: Acute Code(s): M41.50 - OTHER SECONDARY SCOLIOSIS, SITE UNSPECIFIED SNOMED Code(s): 657307646 (5) H/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 Current Visit: No Status: Acute Code(s): Z95.3 - PRESENCE OF XENOGENIC HEART VALVE SNOMED Code(s): 301259996 (6) History of endovascular stent graft for abdominal aortic aneurysm (AAA) Current Visit: No Status: Acute Code(s): Z95.828 - PRESENCE OF OTHER VASCULAR IMPLANTS AND GRAFTS SNOMED Code(s): 852269292182097 (7) MCFP current use of anticoagulant therapy Current Visit: No Status: Acute Code(s): Z79.01 - CROP RESEARCH SCIENTIST (CURRENT) USE OF ANTICOAGULANTS SNOMED Code(s): 427752209 (8) Mixed hyperlipidemia Current Visit: No Status: Acute Code(s): E78.2 - MIXED HYPERLIPIDEMIA SNOMED Code(s): 621744187 (9) Paroxysmal atrial fibrillation Current Visit: No Status: Acute Code(s): I48.0 - PAROXYSMAL ATRIAL FIBRILLATION SNOMED Code(s): 827156102 (10) Pulmonary hypertension Current Visit: No Status: Acute Code(s): I27.20 - PULMONARY HYPERTENSION, UNSPECIFIED SNOMED Code(s): 40069136 (11) Stage III chronic kidney disease Current Visit: No Status: Acute Code(s): N18.30 - CHRONIC KIDNEY DISEASE, STAGE 3 UNSPECIFIED SNOMED Code(s): 830401904 (12) Systolic congestive heart failure Current Visit: No Status: Acute Code(s): I50.20 - UNSPECIFIED SYSTOLIC (CONGESTIVE) HEART FAILURE SNOMED Code(s): 94066502 (13) Chronic indwelling Felder catheter Current Visit: Yes Status: Acute Code(s): Z97.8 - PRESENCE OF OTHER SPECIFIED DEVICES SNOMED Code(s): 289119729 Plan: continue home medications. He'll continue IV steroids and antibiotics. Repeat labs in a.m. wait on pulmonology recommendations,consult cardiology per pt request regarding tachcaardia with exertion reevaluate next 24 hours.
[2022-07-14 16:45] LABS: Glucose,Whole Blood 184 mg/dL (70-110)
[2022-07-14 20:11] LABS: Glucose,Whole Blood 238 mg/dL (70-110)
[2022-07-14] MEDS: MELATONIN 3 MG TABLET PO SCH (21:06)
[2022-07-14] MEDS: SENNOSIDES-DOCUSATE SODIUM 1 EACH TAB PO SCH (21:06)
[2022-07-14] MEDS: SERTRALINE 50 MG TAB PO SCH (21:06)
[2022-07-14] MEDS: FUROSEMIDE 40 MG TAB PO SCH (21:07)
[2022-07-14] MEDS: WARFARIN 1 MG TAB PO SCH (21:07)
[2022-07-15] MEDS: methylPREDNISolone SOD SUCCI 125 MG/2 ML VIAL IV SCH ×4 (00:17→17:10)
[2022-07-15 06:15] LABS: Glucose,Whole Blood 145 mg/dL (70-110)
[2022-07-15] MEDS: INSULIN ASPART (NovoLOG) 100 UNIT/ML VIAL SQ SCH ×4 (06:20→21:41)
[2022-07-15] MEDS: LORazepam 1 MG TAB PO PRN ×3 (06:39→21:49)
[2022-07-15] MEDS: AMOXIC-POT CLAV 875-125MG 1 EACH TAB PO SCH ×2 (08:32→21:38)
[2022-07-15] MEDS: FUROSEMIDE 80 MG TAB PO SCH (08:32)
[2022-07-15] MEDS: CYANOCOBALAMIN 500 MCG TAB PO SCH (08:32)
[2022-07-15] MEDS: ENOXAPARIN 40 MG/0.4 ML SYRINGE SQ SCH (08:32)
[2022-07-15] MEDS: IPRATROPIUM-ALBUTEROL 3 ML NEB INHALATION SCH ×4 (09:50→21:05)
[2022-07-15] MEDS: SYMBICORT 80-4.5 MCG INHALER INHALATION SCH ×2 (09:50→21:05)
[2022-07-15] MEDS: SACUBITRIL/VALSARTAN 24 MG-26 MG TABLET PO SCH ×2 (10:24→21:41)
--- NOTE | 2022-07-15 10:38 | P.PN ---
Subjective Progress Note Date: 07/15/22 This is a very pleasant 82-year-old male patient with a known history of chronic obstructive pulmonary disease, atrial fibrillation, congestive heart failure, hyperlipidemia, previous GI bleed, chronic kidney disease stage III, previous aortic aneurysm stent placement, peripheral vascular disease, mitral valve replacement, anxiety, former smoker, history of daily alcohol use. The patient has had multiple admissions for COPD and CHF exacerbations. He is recently residing at [facility] the patient currently docile yesterday because of worsening shortness of breath. He was seeing his primary care physician, Dr. Maddox currently and he was noted to have some diminished breath sounds bilatera lly and he was also noted to have some increased shortness of breath. For that reason, he was directed to the emergency department. He has no nausea or vomiting or abdominal pain. No headaches. No altered mentation. He remains in atrial fibrillation. The WBC count is at 7.7 with a hemoglobin of 10.8 and a platelet count of 308. His INR is at 1.2 with a PT of 12. BUN is 46 with a creatinine of 1.04 and sodium level is 132. Lactic acid level was high as 2.5- 1.1. Troponins Are 0.03 and 0.02 Respectively. LFTs Are Normal. Influenza Screen, Covid 19 and RSV Were All Negative. Is on Home O2 at 3 L and He Remains on 3 L of Oxygen by Nasal Cannula. Chest X-Ray Shows Chronic Changes without Any Acute Cardiac Pulmonary Abnormalities. On today's evaluation of 07/16/2022, the patient is feeling slightly better compared to yesterday. The patient was seen yesterday for exacerbation of COPD/CHF. The patient is currently on Symbicort, DuoNeb about treatments [id number], oral Lasix, IV Solu-Medrol. He remains on oxygen 3 L/m nasal cannula. No new labs are available from today. On today's evaluation of 07/15/2022, patient is doing well. No specific complaints. He reports improvement in his breathing. No new complaints. Less short of breath and less spastic and wheezing. Remains on Symbicort. Remains on DuoNeb about treatments [id number]. Remains on IV Solu-Medrol. He remains on Augmentin. Anticoagulation is still with warfarin. INR is subtherapeutic still. Objective - Vital Signs Vital signs: Vital Signs Temp 97.9 F 07/15/22 04:00 Pulse 100 07/15/22 04:00 Resp 16 07/15/22 04:00 BP 117/63 07/15/22 04:00 Pulse Ox 94 L 07/15/22 04:00 FiO2 Intake & Output 07/14/22 07/15/22 07/15/22 18:59 06:59 18:59 Intake Total 358 Output Total 900 800 Balance -542 -800 Weight 53.977 kg Intake: Oral 358 Output: Urine 900 800 Other: Voiding Method Indwelling Catheter Indwelling Catheter - Exam GENERAL EXAM: Alert, very pleasant 82-year-old male, on 3 L nasal cannula, comfortable in no apparent distress. HEAD: Normocephalic. EYES: Normal reaction of pupils, equal size. NOSE: Clear with pink turbinates. THROAT: No erythema or exudates. NECK: No masses, no JVD. CHEST: No chest wall deformity. LUNGS: Equal air entry with faint crackles in the posterior bases. The patient also has few crackles in lung bases bilaterally along with scattered expiratory wheeze CVS: Irregular S1 and S2 normal with no audible murmur, irregular rhythm. ABDOMEN: No hepatosplenomegaly, normal bowel sounds, no guarding or rigidity. SPINE: No scoliosis or deformity SKIN: No rashes CENTRAL NERVOUS SYSTEM: No focal deficits, tone is normal in all 4 extremities. EXTREMITIES: There is no peripheral edema. No clubbing, no cyanosis. Peripheral pulses are intact. - Labs CBC & Chem 7: 07/12/22 16:06 07/12/22 16:06 Labs: Abnormal Lab Results - Last 24 Hours (Table) 07/14/22 07/14/22 07/14/22 Range/Units 11:33 16:44 20:09 POC Glucose (mg/dL) 141 H 184 H 238 H (70-110) mg/dL 07/15/22 Range/Units 06:14 POC Glucose (mg/dL) 145 H (70-110) mg/dL Microbiology - Last 24 Hours (Table) 07/12/22 15:45 Blood Culture - Preliminary Blood 07/12/22 16:00 Blood Culture - Preliminary Blood Assessment and Plan Plan: Acute exacerbation of chronic COPD/CHF with secondary shortness of breath Chronic hypoxemic respiratory failure, maintained on home O2 between 3 and 4 L of oxygen by nasal cannula. No interval worsening and oxygenation Chronic obstructive pulmonary disease, severe advanced and the patient is oxygen dependent Systolic heart failure with an ejection fraction of 25-30% History of mitral valve replacement that was done [facility] back in 2014 and the patient had a repair of a bicuspid aortic valve Abdominal aortic aneurysm with previous endovascular stent grafting Former smoker History of atrial fibrillation, maintained on warfarin and the PT/INR subtherapeutic History of CHF History of GI bleed Hyperlipidemia History of pneumonia History of stage III chronic kidney disease History of peripheral vascular disease History of benign prostatic hypertrophy Poor overall functional performance based on the above-mentioned multiple comorbidities Plan Continues to improve clinically is no changes in medication will be done. We'll keep the patient high-dose IV Solu-Medrol Continue same treatment Titrate oxygen flow to maintain saturation above 90% currently on 3 L Continue bronchodilators Continue steroids and the patient is currently on IV Solu-Medrol 60 mg every 6 hours Oral antibiotics with Augmentin Continue oral diuretics PT/INR subtherapeutic and the patient is on Coumadin. Coumadin level and also needs to be adjusted. INR from today is at 1.1 We'll continue to follow. Resume all medications. Cardiology consultation.
[2022-07-15 11:13] LABS: Basophils % (A) 0 %; Eosinophils % (A) 0 %; HCT 36.2 % (39.0-53.0); Hypochromasia Moderate; Lymphocytes # (A) 0.3 k/uL (1.0-4.8); Lymphocytes % (A) 4 %; MCH 28.8 pg (25.0-35.0); MCHC 30.5 g/dL (31.0-37.0); MCV 94.5 fL (80.0-100.0); Mean Platelet Volume 8.2; Monocytes # (A) 0.3 k/uL (0-1.0); Monocytes % (A) 3 %; Neutrophils # (A) 8.3 k/uL (1.3-7.7); Neutrophils % (A) 92 %; Platelet Count 406 k/uL (150-450); RBC 3.84 m/uL (4.30-5.90); RDW 14.1 % (11.5-15.5)
[2022-07-15 11:18] LABS: INR 1.5 (<1.2); Prothrombin Time 15.2 sec (9.0-12.0)
[2022-07-15 11:25] LABS: Magnesium 2.3 mg/dL (1.6-2.3); Potassium 4.5 mmol/L (3.5-5.1)
[2022-07-15 11:56] LABS: Glucose,Whole Blood 170 mg/dL (70-110)
--- NOTE | 2022-07-15 11:56 | P.PN ---
Subjective 07/13/22 This is a 82-year-old male although the practice. He is oxygen and steroid dependent COPD. He was in the office yesterday and was very winded and dyspneic. His pulse ox is 73% after ambulating from the waiting room to the exam room. currently it seen him and sent him the emergency room for further evaluation. This morning he is feeling much better. Denies any chest pains nausea and vomiting. He has a history of COPD, oxygen dependent, atrial fibrillation chronic systolic CHF, CKD3a, and multiple other medical issues. Former smoker. He rarely resides at [place] since[place] on April 27 2022, he had been in and out of [facility] several times previously to this. 07/14/2022: patient hasc/o of weakenss today. Breathing is better. He asked abotu ECF for a few days. He h\denies any chest pain pressure, nausea or vomiting. He has chronic SOB witbh exertion. Vitals are stable, but he does have some tachycardia with exertion.Labs show INR 1.1. He remains on Coumadin per protocol and leovenox for subtheraputic coverage. blood cultures negative. Pulmonology following. July 15, 2022: patient is improved. He is able to ambulate 200 feet through.He does complain of shortness of breath with exertion. He currently does not feel as baseline yet.Cardiology is planning a 2-D echo. Vital signs remain stable.Pulmonology notes reviewed. He continues on high-dose steroids updrafts. Lovenox for coverage since his INR is not theraputic Objective - Vital Signs Vital signs: Vital Signs Temp 97.8 F 07/15/22 08:00 Pulse 90 07/15/22 10:04 Resp 18 07/15/22 08:00 BP 113/70 07/15/22 08:00 Pulse Ox 94 L 07/15/22 09:50 FiO2 Intake & Output 07/14/22 07/15/22 07/15/22 18:59 06:59 18:59 Intake Total 358 240 Output Total 900 800 Balance -542 -800 240 Weight 53.977 kg Intake: Oral 358 240 Output: Urine 900 800 Other: Voiding Method Indwelling Catheter Indwelling Catheter Indwelling Catheter - Exam General: Patient awake, alert and oriented times 3. Patient in minimal distress Shortness of breath Neck: No thyromegaly or lymphadenopathy noted Cardiac: Heart regular in rate and rhythm with ectopy noted.. No S3. No S4. No clicks, rubs. 1/6 systolic murmur consistent with his aortic valve replacement Lungs: Diminished breath sounds bilaterally imroved from yesterday, no wheeze at this time Abdomen: No mass. No organomegaly. Bowel sounds presnt and normative in all 4 quadrants.] Extremes: [No edema no cyanosis no claudication normal pulses : indwelling Felder catheter Musculoskeletal: [No joint erythema, edema or tenderness.] Skin: [No rash.] Neurologic: [No lateralizing deficits. CN II - XII grossly intact.] - Labs CBC & Chem 7: 07/15/22 10:31 07/15/22 10: Labs: Abnormal Lab Results - Last 24 Hours (Table) 07/14/22 07/14/22 07/15/22 Range/Units 16:44 20:09 06:14 RBC (4.30-5.90) m/uL Hgb (13.0-17.5) gm/dL Hct (39.0-53.0) % MCHC (31.0-37.0) g/dL Neutrophils # (1.3-7.7) k/uL Lymphocytes # (1.0-4.8) k/uL PT (9.0-12.0) sec INR (<1.2) Chloride (98-107) mmol/L BUN (9-20) mg/dL Creatinine (0.66-1.25) mg/dL Glucose (74-99) mg/dL POC Glucose (mg/dL) 184 H 238 H 145 H (70-110) mg/dL 07/15/22 07/15/22 07/15/22 Range/Units 10:31 10:31 10:31 RBC 3.84 L (4.30-5.90) m/uL Hgb 11.0 L (13.0-17.5) gm/dL Hct 36.2 L (39.0-53.0) % MCHC 30.5 L (31.0-37.0) g/dL Neutrophils # 8.3 H (1.3-7.7) k/uL Lymphocytes # 0.3 L (1.0-4.8) k/uL PT 15.2 H (9.0-12.0) sec INR 1.5 H (<1.2) Chloride 94 L (98-107) mmol/L BUN 54 H (9-20) mg/dL Creatinine 1.36 H (0.66-1.25) mg/dL Glucose 163 H (74-99) mg/dL POC Glucose (mg/dL) (70-110) mg/dL Microbiology - Last 24 Hours (Table) 07/12/22 15:45 Blood Culture - Preliminary Blood 07/12/22 16:00 Blood Culture - Preliminary Blood Assessment and Plan (1) COPD exacerbation Current Visit: Yes Status: Acute Code(s): J44.1 - CHRONIC OBSTRUCTIVE PULMONARY DISEASE W (ACUTE) EXACERBATION SNOMED Code(s): 148071423 (2) Acute and chronic respiratory failure with hypoxia Current Visit: No Status: Acute Code(s): J96.21 - ACUTE AND CHRONIC RESPIRATORY FAILURE WITH HYPOXIA SNOMED Code(s): 48915320 (3) Anemia Current Visit: No Status: Acute Code(s): D64.9 - ANEMIA, UNSPECIFIED SNOMED Code(s): 561472651 (4) Degenerative scoliosis in adult patient Current Visit: No Status: Acute Code(s): M41.50 - OTHER SECONDARY SCOLIOSIS, SITE UNSPECIFIED SNOMED Code(s): 326297752 (5) H/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 Current Visit: No Status: Acute Code(s): Z95.3 - PRESENCE OF XENOGENIC HEART VALVE SNOMED Code(s): 348001862 (6) History of endovascular stent graft for abdominal aortic aneurysm (AAA) Current Visit: No Status: Acute Code(s): Z95.828 - PRESENCE OF OTHER VASCULAR IMPLANTS AND GRAFTS SNOMED Code(s): 225170118763414 (7) MCC current use of anticoagulant therapy Current Visit: No Status: Acute Code(s): Z79.01 - RN INTERVENTIONAL (CURRENT) USE OF ANTICOAGULANTS SNOMED Code(s): 192178304 (8) Mixed hyperlipidemia Current Visit: No Status: Acute Code(s): E78.2 - MIXED HYPERLIPIDEMIA SNOMED Code(s): 717299365 (9) Paroxysmal atrial fibrillation Current Visit: No Status: Acute Code(s): I48.0 - PAROXYSMAL ATRIAL FIBRILLATION SNOMED Code(s): 890354401 (10) Pulmonary hypertension Current Visit: No Status: Acute Code(s): I27.20 - PULMONARY HYPERTENSION, UNSPECIFIED SNOMED Code(s): 95108016 (11) Stage III chronic kidney disease Current Visit: No Status: Acute Code(s): N18.30 - CHRONIC KIDNEY DISEASE, STAGE 3 UNSPECIFIED SNOMED Code(s): 425828688 (12) Systolic congestive heart failure Current Visit: No Status: Acute Code(s): I50.20 - UNSPECIFIED SYSTOLIC (CONGESTIVE) HEART FAILURE SNOMED Code(s): 79640661 (13) Chronic indwelling Felder catheter Current Visit: Yes Status: Acute Code(s): Z97.8 - PRESENCE OF OTHER SPECIFIED DEVICES SNOMED Code(s): 938294201 Plan: continue home medications. He'll continue IV steroids and antibiotics. Repeat labs in a.m. wait on pulmonology recommendationswait on cardiology reevaluate next 24 hours.
--- NOTE | 2022-07-15 13:50 | P.CRDCN ---
History of Present Illness Consult date: 07/15/22 Consult reason: congestive heart failure History of present illness: The patient is an 82-year-old male who follows in the office with Dr. Kramer. He initially presented to the hospital with increased shortness of breath after being evaluated in his primary care provider's office.. He was found to be hypoxic with pulse ox in the mid 70s. The patient has multiple comorbid conditions and is frequently admitted to the hospital. DIAGNOSTICS: EKG shows sinus tachycardia with left anterior fascicular block Chest x-ray shows chronic emphysema and pulmonary fibrotic changes. No acute cardiopulmonary process Lab data: WBC 9.0, hemoglobin 11.0, hematocrit 36.2, platelet 46, sodium 138, potassium 4.5, BUN 54, creatinine 1.36, magnesium 2.3, AST 1231, ALT 24, ALP 55, troponin 0.03, 0.02. No BNP drawn. PAST MEDICAL HISTORY: Systolic heart failure, atrial fibrillation REVIEW OF SYSTEMS: No fever or chills. No cough or expectoration. No d iaphoresis. Patient denies headache, dizziness, blurred vision, double vision. Patient denies any stomach discomfort. No nausea, vomiting. No hematochezia. No hematemesis. Denies any black stools or blood in his stools. Denies dysuria or hematuria. No muscle weakness or numbness. Positive for shortness of breath. No chest pain or pressure. PHYSICAL EXAMINATION: This is a 82 year-old male in no apparent distress at the time of my examination. HEENT: Head is atraumatic, normocephalic. Pupils are equal, round. There is no jugular venous distention. No carotid bruit is heard. CHEST EXAMINATION: Lungs are diminished to auscultation. No chest wall tenderness is noted on palpation or with deep breathing. HEART EXAMINATION: Heart regular rate and rhythm. Soft systolic murmur. No gallops or rub. ABDOMEN: Soft, nontender. Bowel sounds are heard. No organomegaly noted. EXTREMITIES: 2+ peripheral pulses with no evidence of peripheral edema and no calf tenderness noted. NEUROLOGIC EXAMINATION: Patient is awake, alert and oriented x3. FINAL ASSESSMENT AND PLAN: Hypoxic respiratory failure, on home oxygen Increased shortness of breath, COPD versus CHF Persistent atrial fibrillation, rate controlled Nonischemic cardiomyopathy History of mitral valve replacement and tricuspid valve repair History of AAA Hyperlipidemia PLAN: Echocardiogram and Doppler study to assess heart structure and function Continue home medication regimen Further recommendations based on clinical course I am dictating on behalf of Dr Grayson Lazar's history/physical and assessment/plan. Past Medical History Past Medical History: Atrial Fibrillation, Heart Failure, COPD, GI Bleed, Hyperlipidemia, Pneumonia, Renal Disease, Skin Disorder, Vascular Disorder Additional Past Medical History / Comment(s): GI bleed, gastritis, gastric ectasia, CKD stage III, past abdominal aortic aneurysm/had stent placed, varicosities, PVD, past shingellis and occasionally will have R flank nerve pain, BPH. Covid 09/2022 History of Any Multi-Drug Resistant Organisms: MRSA Date of last positivie culture/infection: 03/19/22 MDRO Source:: Urine Past Surgical History: Cardiac Valve Replacement, Cholecystectomy, Heart Catheterization Additional Past Surgical History / Comment(s): Stent placed for lower abd aortic aneurysym, mitral valve replacement/bicuspid repair, EGD with ablation, colonoscopy, excision L cheek lesion/mass and lesion from scalp/all benign, ZEPHER VALVE PLACED 2 YRS AGO AT [facility] Past Anesthesia/Blood Transfusion Reactions: No Reported Reaction Date of Last Stent Placement:: 2015 Past Psychological History: Anxiety Smoking Status: Former smoker Past Alcohol Use History: Occasional Past Drug Use History: None Reported - Past Family History Mother Family Medical History: Myocardial Infarction ([place]) Additional Family Medical History / Comment(s): at a young age. Father Family Medical History: Hypertension Medications and Allergies Home Medications Medication Instructions Recorded Confirmed Type Furosemide [Lasix] 40 mg PO HS 03/19/22 07/12/22 History Cyanocobalamin [Vitamin B-12] 1,000 mcg PO DAILY 04/13/22 07/12/22 History Furosemide [Lasix] 80 mg PO DAILY 04/13/22 07/12/22 History Levalbuterol Tartrate 2 puff INHALATION RT-Q4H PRN 04/13/22 07/12/22 History [Levalbuterol Tartrate 45 MCG Hfa] Sennosides/Docusate Sodium [Senna 1 tab PO HS 04/13/22 07/12/22 History Plus 8.6-50 mg Tablet] Umeclidinium [place] [Incruse 1 puff INHALATION RT-DAILY 04/13/22 07/12/22 History Ellipta] Acetaminophen Tab [Tylenol] 650 mg PO Q6H PRN 05/05/22 07/12/22 History Fluticasone Propion/Salmeterol 1 puff INHALATION RT-BID 05/05/22 07/12/22 History [Wixela 100-50 Inhub] Ipratropium-Albuterol Nebulize 3 ml INHALATION RT-BID 05/05/22 07/12/22 History [Duoneb 0.5 mg-3 mg/3 ml Soln] Sacubitril/Valsartan [Entresto 24 1 tab PO BID 05/05/22 07/12/22 History mg-26 mg Tablet] Sertraline [Zoloft] 50 mg PO HS 05/05/22 07/12/22 History predniSONE 10 mg PO DAILY #0 05/07/22 07/12/22 Rx LORazepam [Ativan] 0.5 - 1 mg PO QID 07/12/22 07/12/22 History Warfarin [Coumadin] 2 mg PO HS 07/12/22 07/12/22 History Allergies Allergy/AdvReac Type Severity Reaction Status Date / Time empagliflozin Allergy Dyspnea Verified 07/12/22 19:11 [From Jardiance] iodine AdvReac Unknown Verified 07/12/22 19:11 pain med (can't remember Allergy Hallucinati Uncoded 07/12/22 19:11 name) ons Patches on chest Allergy Swelling, Uncoded 07/12/22 19:11 See Comment Physical Exam Vitals: Vital Signs Temp Pulse Pulse Resp BP Pulse Ox 07/15/22 12:16 92 07/15/22 12:05 92 07/15/22 12:00 98 F 115 H 20 122/56 97 07/15/22 10:04 90 07/15/22 09:50 90 94 L 07/15/22 08:00 97.8 F 111 H 18 113/70 92 L 07/15/22 04:00 97.9 F 100 16 117/63 94 L 07/15/22 02:00 103 H 18 07/15/22 00:00 103 H 18 99/63 94 L 07/14/22 20:22 94 07/14/22 20:10 92 07/14/22 20:00 98.0 F 108 H 16 107/56 92 L 07/14/22 15:43 95 07/14/22 15:38 101 H 18 113/60 97 07/14/22 15:35 94 Intake and Output 07/14/22 07/15/22 07/15/22 22:59 06:59 14:59 Intake Total 240 Output Total 300 800 550 Balance -300 -800 -310 Intake: Oral 240 Output: Urine 300 800 550 Other: Voiding Method Indwelling Catheter Indwelling Catheter Indwelling Catheter Results 07/15/22 10:31 07/15/22 10:31 Coagulation 07/15/22 Range/Units 10:31 PT 15.2 H (9.0-12.0) sec CBC 07/15/22 Range/Units 10:31 WBC 9.0 (3.8-10.6) k/uL RBC 3.84 L (4.30-5.90) m/uL Hgb 11.0 L (13.0-17.5) gm/dL Hct 36.2 L (39.0-53.0) % Plt Count 406 (150-450) k/uL Comprehensive Metabolic Panel 07/15/22 Range/Units 10:31 Sodium 138 (137-145) mmol/L Potassium 4.5 (3.5-5.1) mmol/L Chloride 94 L (98-107) mmol/L Carbon Dioxide 30 (22-30) mmol/L BUN 54 H (9-20) mg/dL Creatinine 1.36 H (0.66-1.25) mg/dL Glucose 163 H (74-99) mg/dL Calcium 9.0 (8.4-10.2) mg/dL Current Medications Generic Name Dose Route Start Last Admin Trade Name Freq PRN Reason Stop Dose Admin Acetaminophen 650 mg 07/13/22 09:25 Acetaminophen Tab 325 Mg Tab PO Q6H PRN Mild Pain or Fever > 100.5 Albuterol/Ipratropium 3 ml 07/12/22 20:00 07/15/22 12:05 Ipratropium-Albuterol 3 Ml Neb INHALATION 3 ml RT-QID RAMONA Administration Albuterol/Ipratropium 3 ml 07/12/22 18:49 Ipratropium-Albuterol 3 Ml Neb INHALATION RT-Q2H PRN Shortness Of Breath Or Wheezing Amoxicillin/Clavulanate Potassium 1 each 07/12/22 21:00 07/15/22 08:32 Amoxic-Pot Clav 875-125mg 1 Each Tab PO 07/17/22 09:01 1 each Q12HR RAMONA Administration Protocol Budesonide/Formoterol Fumarate 2 puff 07/13/22 20:00 07/15/22 09:50 Symbicort 80-4.5 Mcg Inhaler INHALATION 2 puff RT-BID RAMONA Administration Cyanocobalamin 1,000 mcg 07/13/22 09:30 07/15/22 08:32 Cyanocobalamin 500 Mcg Tab PO 1,000 mcg DAILY RAMONA Administration Enoxaparin Sodium 40 mg 07/13/22 10:15 07/15/22 08:32 Enoxaparin 40 Mg/0.4 Ml Syringe SQ 40 mg DAILY RAMONA Administration Furosemide 80 mg 07/13/22 09:00 07/15/22 08:32 Furosemide 80 Mg Tab PO 80 mg DAILY RAMONA Administration Furosemide 40 mg 07/13/22 21:00 07/14/22 21:07 Furosemide 40 Mg Tab PO 40 mg HS RAMONA Administration Insulin Aspart 0 unit 07/14/22 07:30 07/15/22 12:33 Insulin Aspart (Novolog) 100 Unit/Ml Vial SQ 1 unit ACHS RAMONA Administration Protocol Lorazepam 1 mg 07/13/22 06:45 07/15/22 12:43 Lorazepam 1 Mg Tab PO 1 mg Q6HR PRN Administration Anxiety Melatonin 3 mg 07/13/22 21:00 07/14/22 21:06 Melatonin 3 Mg Tablet PO 3 mg HS RAMONA Administration Methylprednisolone Sodium Succinate 60 mg 07/13/22 00:00 07/15/22 12:33 Methylprednisolone Sod Succi 125 Mg/2 Ml Vial IV 60 mg Q6HR RAMONA Administration Miscellaneous Information 0 each 07/13/22 09:41 Warfarin Per Pharmacy MISCELLANE DIRECTED PRN PER PROTOCOL Protocol Naloxone HCl 0.2 mg 07/12/22 18:49 Naloxone 0.4 Mg/Ml 1 Ml Vial IVP Q2M PRN Opioid Reversal Sacubitril/Valsartan 1 each 07/13/22 09:30 07/15/22 10:24 Sacubitril/Valsartan 24 Mg-26 Mg Tablet PO 1 each BID RAMONA Administration Senna/Docusate Sodium 1 each 07/13/22 21:00 07/14/22 21:06 Sennosides-Docusate Sodium 1 Each Tab PO 1 each HS RAMONA Administration Sertraline HCl 50 mg 07/13/22 21:00 07/14/22 21:06 Sertraline 50 Mg Tab PO 50 mg HS RAMONA Administration Warfarin Sodium 2 mg 07/13/22 21:00 07/14/22 21:07 Warfarin 1 Mg Tab PO 2 mg HS RAMONA Administration Protocol Intake and Output 07/14/22 07/15/22 07/15/22 22:59 06:59 14:59 Intake Total 240 Output Total 300 800 550 Balance -300 -800 -310 Intake: Oral 240 Output: Urine 300 800 550 Other: Voiding Method Indwelling Catheter Indwelling Catheter Indwelling Catheter 07/15/22 10:31 07/15/22 10:31
[2022-07-15 16:33] LABS: Glucose,Whole Blood 186 mg/dL (70-110)
[2022-07-15 19:58] LABS: Glucose,Whole Blood 224 mg/dL (70-110)
[2022-07-15] MEDS: SERTRALINE 50 MG TAB PO SCH (21:38)
[2022-07-15] MEDS: SENNOSIDES-DOCUSATE SODIUM 1 EACH TAB PO SCH (21:38)
[2022-07-15] MEDS: FUROSEMIDE 40 MG TAB PO SCH (21:38)
[2022-07-15] MEDS: MELATONIN 3 MG TABLET PO SCH (21:38)
[2022-07-15] MEDS: WARFARIN 1 MG TAB PO SCH (21:41)
[2022-07-16] MEDS: methylPREDNISolone SOD SUCCI 125 MG/2 ML VIAL IV SCH ×4 (00:38→18:16)
[2022-07-16 06:07] LABS: Glucose,Whole Blood 155 mg/dL (70-110)
[2022-07-16] MEDS: INSULIN ASPART (NovoLOG) 100 UNIT/ML VIAL SQ SCH ×4 (06:32→21:53)
[2022-07-16 07:36] LABS: INR 1.4 (<1.2); Prothrombin Time 14.4 sec (9.0-12.0)
[2022-07-16 07:39] LABS: Calcium 8.5 mg/dL (8.4-10.2); Potassium 3.7 mmol/L (3.5-5.1)
[2022-07-16] MEDS: CYANOCOBALAMIN 500 MCG TAB PO SCH (08:55)
[2022-07-16] MEDS: AMOXIC-POT CLAV 875-125MG 1 EACH TAB PO SCH ×2 (08:55→21:46)
[2022-07-16] MEDS: ENOXAPARIN 40 MG/0.4 ML SYRINGE SQ SCH (08:55)
[2022-07-16] MEDS: FUROSEMIDE 80 MG TAB PO SCH (08:55)
[2022-07-16] MEDS: SACUBITRIL/VALSARTAN 24 MG-26 MG TABLET PO SCH ×2 (08:55→21:46)
[2022-07-16] MEDS: IPRATROPIUM-ALBUTEROL 3 ML NEB INHALATION SCH ×4 (09:07→20:51)
[2022-07-16] MEDS: SYMBICORT 80-4.5 MCG INHALER INHALATION SCH ×2 (09:07→20:51)
[2022-07-16 11:32] LABS: Glucose,Whole Blood 94 mg/dL (70-110)
--- NOTE | 2022-07-16 11:46 | P.PN ---
Subjective Progress Note Date: 07/16/22 HISTORY OF PRESENT ILLNESS: The patient is an 82-year-old male who follows in the office with Dr. Kramer. He initially presented to the hospital with increased shortness of breath after being evaluated in his primary care provider's office.. He was found to be hypoxic with pulse ox in the mid 70s. The patient has multiple comorbid conditions and is frequently admitted to the hospital. DIAGNOSTICS: EKG shows sinus tachycardia with left anterior fascicular block Chest x-ray shows chronic emphysema and pulmonary fibrotic changes. No acute cardiopulmonary process Lab data: WBC 9.0, hemoglobin 11.0, hematocrit 36.2, platelet 46, sodium 138, potassium 4.5, BUN 54, creatinine 1.36, magnesium 2.3, AST 1231, ALT 24, ALP 55, troponin 0.03, 0.02. No BNP drawn. 07/16/2022 Patient examined this morning at the bedside. Patient denies chest pain or pressure. He reports shortness of breath with conversation. He is currently receiving a breathing treatments have examination. He has wheezing throughout. Telemetry reveals atrial fibrillation with heart rate around 113. 2-D echo is currently pending. PHYSICAL EXAM: VITAL SIGNS: Reviewed. GENERAL: Well-developed in no acute distress. NECK: Supple. No JVD or thyromegaly LUNGS: Respirations even and unlabored. Lungs with expiratory wheezing throughout. HEART: Irregular rate and rhythm. S1 and S2 heard. EXTREMITIES: Normal range of motion. No clubbing or cyanosis. Peripheral pulses intact. No lower extremity edema ASSESSMENT: Acute COPD exacerbation Acute on chronic hypoxic respiratory failure Hypoxic respiratory failure, on home oxygen Chronic heart failure with reduced EF, 25-30%, currently euvolemic Persistent atrial fibrillation with mildly uncontrolled rates around 110-115 Nonischemic cardiomyopathy History of mitral valve replacement and tricuspid valve repair, performed at [facility] History of AAA with previous endovascular stent grafting Hyperlipidemia Subtherapeutic INR, on Coumadin outpatient PLAN: Continue current cardiac medications Add metoprolol tartrate 25 mg twice a day for a heart rate control Continue Coumadin. Monitor INR. Patient has been started on Lovenox per primary medicine until INR is therapeutic 2-D echo is ordered. Await results Continue IV steroids per pulmonary medicine Further recommendations pending patient's course Patient to follow-up post discharge with Dr. Kramer Nurse practitioner note has been reviewed by physician. Signing provider agrees with the documented findings, assessment, and plan of care. Objective - Vital Signs Vital signs: Vital Signs Temp 97.4 F L 07/16/22 08:00 Pulse 92 07/16/22 09:20 Resp 18 07/16/22 08:00 BP 122/71 07/16/22 08:00 Pulse Ox 95 07/16/22 09:08 FiO2 Intake & Output 07/15/22 07/16/22 07/16/22 18:59 06:59 18:59 Intake Total 898 118 Output Total 1050 700 Balance -152 -700 118 Intake: Oral 898 118 Output: Urine 1050 700 Other: Voiding Method Indwelling Catheter Indwelling Catheter Indwelling Catheter - Labs CBC & Chem 7: 07/15/22 10:31 07/16/22 06:32 Labs: Abnormal Lab Results - Last 24 Hours (Table) 07/15/22 07/15/22 07/15/22 Range/Units 11:55 16:30 19:56 PT (9.0-12.0) sec INR (<1.2) Carbon Dioxide (22-30) mmol/L BUN (9-20) mg/dL Glucose (74-99) mg/dL POC Glucose (mg/dL) 170 H 186 H 224 H (70-110) mg/dL 07/16/22 07/16/22 07/16/22 Range/Units 06:05 06:32 06:32 PT 14.4 H (9.0-12.0) sec INR 1.4 H (<1.2) Carbon Dioxide 38 H (22-30) mmol/L BUN 55 H (9-20) mg/dL Glucose 122 H (74-99) mg/dL POC Glucose (mg/dL) 155 H (70-110) mg/dL Microbiology - Last 24 Hours (Table) 07/12/22 15:45 Blood Culture - Preliminary Blood 07/12/22 16:00 Blood Culture - Preliminary Blood
[2022-07-16] MEDS: METOPROLOL TARTRATE 25 MG TAB PO SCH ×2 (12:57→21:46)
[2022-07-16] MEDS: LORazepam 1 MG TAB PO PRN ×2 (12:57→21:47)
--- NOTE | 2022-07-16 14:00 | P.PN ---
Subjective Progress Note Date: 07/16/22 This is a very pleasant 82-year-old male patient with a known history of chronic obstructive pulmonary disease, atrial fibrillation, congestive heart failure, hyperlipidemia, previous GI bleed, chronic kidney disease stage III, previous aortic aneurysm stent placement, peripheral vascular disease, mitral valve replacement, anxiety, former smoker, history of daily alcohol use. The patient has had multiple admissions for COPD and CHF exacerbations. He is recently residing at [facility] the patient currently docile yesterday because of worsening shortness of breath. He was seeing his primary care physician, Dr. Maddox currently and he was noted to have some diminished breath sounds bilaterally and he was also noted to have some increased shortness of breath. For that reason, he was directed to the emergency department. He has no nausea or vomiting or abdominal pain. No headaches. No altered mentation. He remains in atrial fibrillation. The WBC count is at 7.7 with a hemoglobin of 10.8 and a platelet count of 308. His INR is at 1.2 with a PT of 12. BUN is 46 with a creatinine of 1.04 and sodium level is 132. Lactic acid level was high as 2.5- 1.1. Troponins Are 0.03 and 0.02 Respectively. LFTs Are Normal. Influenza Screen, Covid 19 and RSV Were All Negative. Is on Home O2 at 3 L and He Remains on 3 L of Oxygen by Nasal Cannula. Chest X-Ray Shows Chronic Changes without Any Acute Cardiac Pulmonary Abnormalities. On today's evaluation of 07/16/2022, the patient is feeling slightly better compared to yesterday. The patient was seen yesterday for exacerbation of COPD/CHF. The patient is currently on Symbicort, DuoNeb about treatments [id number], oral Lasix, IV Solu-Medrol. He remains on oxygen 3 L/m nasal cannula. No new labs are available from today. On today's evaluation of 07/15/2022, patient is doing well. No specific complaints. He reports improvement in his breathing. No new complaints. Less short of breath and less spastic and wheezing. Remains on Symbicort. Remains on DuoNeb about treatments [id number]. Remains on IV Solu-Medrol. He remains on Augmentin. Anticoagulation is still with warfarin. INR is subtherapeutic still. The patient is seen today 07/16/2022 in follow-up on the selective care unit. He is currently sitting up in a chair at the bedside. Awake and alert in no acute distress. He is dyspneic with conversation. Dyspneic with minimal activity. Currently maintaining O2 saturations in the 90s on 3 L/m per nasal cannula. He is afebrile. Blood cultures reveal no growth. INR 1.4. Sodium 139. Potassium 3.7. Bicarb 38. BUN 55. Creatinine 1.17. Glucose 122. He is continued on DuoNeb inhalations, Symbicort, IV Solu-Medrol. Continued Lovenox until warfarin therapeutic. Remains on oral diuretics. Antibiotics in the form of Augmentin. Currently in a negative balance. Objective - Vital Signs Vital signs: Vital Signs Temp 97.4 F L 07/16/22 08:00 Pulse 88 07/16/22 12:07 Resp 20 07/16/22 12:00 BP 122/89 07/16/22 12:00 Pulse Ox 91 L 07/16/22 12:00 FiO2 Intake & Output 07/15/22 07/16/22 07/16/22 18:59 06:59 18:59 Intake Total 898 236 Output Total 1050 700 Balance -152 -700 236 Weight 53.977 kg Intake: Oral 898 236 Output: Urine 1050 700 Other: Voiding Method Indwelling Catheter Indwelling Catheter Indwelling Catheter - Exam GENERAL EXAM: Alert, pleasant 82-year-old male, up in a chair, on 3 L nasal can nula, comfortable in no apparent distress. HEAD: Normocephalic. EYES: Normal reaction of pupils, equal size. NOSE: Clear with pink turbinates. THROAT: No erythema or exudates. NECK: No masses, no JVD. CHEST: No chest wall deformity. LUNGS: Equal air entry with faint crackles in the posterior bases along with scattered expiratory wheeze. CVS: Irregular S1 and S2 normal with no audible murmur, irregular rhythm. ABDOMEN: No hepatosplenomegaly, normal bowel sounds, no guarding or rigidity. SPINE: No scoliosis or deformity SKIN: No rashes CENTRAL NERVOUS SYSTEM: No focal deficits, tone is normal in all 4 extremities. EXTREMITIES: There is no peripheral edema. No clubbing, no cyanosis. Periphera l pulses are intact. - Labs CBC & Chem 7: 07/15/22 10:31 07/16/22 06:32 Labs: Abnormal Lab Results - Last 24 Hours (Table) 07/15/22 07/15/22 07/16/22 Range/Units 16:30 19:56 06:05 PT (9.0-12.0) sec INR (<1.2) Carbon Dioxide (22-30) mmol/L BUN (9-20) mg/dL Glucose (74-99) mg/dL POC Glucose (mg/dL) 186 H 224 H 155 H (70-110) mg/dL 07/16/22 07/16/22 Range/Units 06:32 06:32 PT 14.4 H (9.0-12.0) sec INR 1.4 H (<1.2) Carbon Dioxide 38 H (22-30) mmol/L BUN 55 H (9-20) mg/dL Glucose 122 H (74-99) mg/dL POC Glucose (mg/dL) (70-110) mg/dL Microbiology - Last 24 Hours (Table) 07/12/22 15:45 Blood Culture - Preliminary Blood 07/12/22 16:00 Blood Culture - Preliminary Blood Assessment and Plan Assessment: Acute exacerbation of chronic structure pulmonary disease in combination with an acute exacerbation of systolic congestive heart failure with secondary shortness of breath Chronic hypoxemic respiratory failure, maintained on home O2 between 3 and 4 L of oxygen by nasal cannula. No interval worsening and oxygenation Chronic obstructive pulmonary disease, severe advanced and the patient is oxygen dependent Systolic heart failure with an ejection fraction of 25-30% History of mitral valve replacement that was done [facility] back in 2014 and the patient had a repair of a bicuspid aortic valve Abdominal aortic aneurysm with previous endovascular stent grafting Former smoker History of atrial fibrillation, maintained on warfarin and the PT/INR subtherapeutic History of CHF History of GI bleed Hyperlipidemia History of pneumonia History of stage III chronic kidney disease History of peripheral vascular disease History of benign prostatic hypertrophy Poor overall functional performance based on the above-mentioned multiple comorbidities Plan: The patient was seen and evaluated Medications and labs reviewed Continue the current treatment plan Titrate the FiO2 as tolerated Increase his activity as tolerated Lovenox until INR therapeutic We will continue to follow I have personally seen and examined the patient, performed the documentation and the assessment and plan as written. Number of minutes spent on the visit: 10.
--- NOTE | 2022-07-16 15:31 | P.PN ---
Subjective Progress Note Date: 07/16/22 07/13/22 This is a 82-year-old male although the practice. He is oxygen and steroid dependent COPD. He was in the office yesterday and was very winded and dyspneic. His pulse ox is 73% after ambulating from the waiting room to the exam room. Dr. elizondo it seen him and sent him the emergency room for further evaluation. This morning he is feeling much better. Denies any chest pains nausea and vomiting. He has a history of COPD, oxygen dependent, atrial fibrillation chronic systolic CHF, CKD3a, and multiple other medical issues. Former smoker. He rarely resides at [place] since[place] on April 27 2022, he had been in and out of ECF several times previously to this. 07/14/2022: patient hasc/o of weakenss today. Breathing is better. He asked abotu ECF for a few days. He h\denies any chest pain pressure, nausea or vomiting. He has chronic SOB witbh exertion. Vitals are stable, but he does have some tachycardia with exertion.Labs show INR 1.1. He remains on Coumadin per protocol and leovenox for subtheraputic coverage. blood cultures negative. Pulmonology following. July 15, 2022: patient is improved. He is able to ambulate 200 feet through.He does complain of shortness of breath with exertion. He currently does not feel as baseline yet.Cardiology is planning a 2-D echo. Vital signs remain stable.Pulmonology notes reviewed. He continues on high-dose steroids updrafts. Lovenox for coverage since his INR is not theraputic 07/16/2022 continues on IV steroids, Augmentin, oral diuretics .maintaining O2 sats of 95% on 2 L at rest. Reported O2 sat decreased to 84% upon transferring from bed to chair on 2 L nasal cannula. Echo completed, results pending. Atrial fibrillation, rates ranging in the low 100s to 1 teens. Bicarb 38, BUN 55, creatinine 1.17. Afebrile, blood cultures reporting no growth. INR subtherapeutic, 1.4, maintained on both Lovenox and warfarin. Objective - Vital Signs Vital signs: Vital Signs Temp 97.4 F L 07/16/22 08:00 Pulse 105 H 07/16/22 14:00 Resp 20 07/16/22 14:00 BP 122/89 07/16/22 12:00 Pulse Ox 91 L 07/16/22 12:00 FiO2 Intake & Output 07/15/22 07/16/22 07/16/22 18:59 06:59 18:59 Intake Total 898 236 Output Total 1050 700 850 Balance -092 -517 -121 Weight 53.977 kg Intake: Oral 898 236 Output: Urine 1050 700 850 Other: Voiding Method Indwelling Catheter Indwelling Catheter Indwelling Catheter - Exam - Exam General: Sitting up in chair, alert and oriented 3, pursed lip breathing, dyspneic with conversing Neck: Supple, no JVD Cardiac: Heart regular in rate and rhythm with ectopy noted.. No S3. No S4. No clicks, rubs. 1/6 systolic murmur consistent with his aortic valve replacement Lungs: Diminished breath sounds bilaterally imroved, fine expiratory wheezing Abdomen: Soft, nontender No mass. No organomegaly. Bowel sounds presnt and normative in all 4 quadrants.] Extremes: [No edema no cyanosis no claudication normal pulses Skin: [No rash, warm and dry.] Neurologic: [CN II - XII grossly intact, strength and sensation grossly intact.] - Labs CBC & Chem 7: 07/15/22 10:31 07/16/22 06:32 Labs: Abnormal Lab Results - Last 24 Hours (Table) 07/15/22 07/15/22 07/16/22 Range/Units 16:30 19:56 06:05 PT (9.0-12.0) sec INR (<1.2) Carbon Dioxide (22-30) mmol/L BUN (9-20) mg/dL Glucose (74-99) mg/dL POC Glucose (mg/dL) 186 H 224 H 155 H (70-110) mg/dL 07/16/22 07/16/22 Range/Units 06:32 06:32 PT 14.4 H (9.0-12.0) sec INR 1.4 H (<1.2) Carbon Dioxide 38 H (22-30) mmol/L BUN 55 H (9-20) mg/dL Glucose 122 H (74-99) mg/dL POC Glucose (mg/dL) (70-110) mg/dL Microbiology - Last 24 Hours (Table) 07/12/22 15:45 Blood Culture - Preliminary Blood 07/12/22 16:00 Blood Culture - Preliminary Blood Assessment and Plan Assessment: (1) COPD exacerbation Current Visit: Yes Status: Acute Code(s): J44.1 - CHRONIC OBSTRUCTIVE PULMONARY DISEASE W (ACUTE) EXACERBATION SNOMED Code(s): 367354272 (2) Acute and chronic respiratory failure with hypoxia Current Visit: No Status: Acute Code(s): J96.21 - ACUTE AND CHRONIC RESPIRATORY FAILURE WITH HYPOXIA SNOMED Code(s): 73345253 (3) Anemia Current Visit: No Status: Acute Code(s): D64.9 - ANEMIA, UNSPECIFIED SNOMED Code(s): 833208749 (4) Degenerative scoliosis in adult patient Current Visit: No Status: Acute Code(s): M41.50 - OTHER SECONDARY SCOLIOSIS, SITE UNSPECIFIED SNOMED Code(s): 001865468 (5) H/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 Current Visit: No Status: Acute Code(s): Z95.3 - PRESENCE OF XENOGENIC HEART VALVE SNOMED Code(s): 673535607 (6) History of endovascular stent graft for abdominal aortic aneurysm (AAA) Current Visit: No Status: Acute Code(s): Z95.828 - PRESENCE OF OTHER VASCULAR IMPLANTS AND GRAFTS SNOMED Code(s): 164904535680451 (7) [facility] current use of anticoagulant therapy Current Visit: No Status: Acute Code(s): 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 SNOMED Code(s): 677607768 (8) Mixed hyperlipidemia Current Visit: No Status: Acute Code(s): E78.2 - MIXED HYPERLIPIDEMIA SNOMED Code(s): 517724247 (9) persistent atrial fibrillation, rate controlled (10) Pulmonary hypertension Current Visit: No Status: Acute Code(s): I27.20 - PULMONARY HYPERTENSION, UNSPECIFIED SNOMED Code(s): 31352900 (11) Stage III chronic kidney disease Current Visit: No Status: Acute Code(s): N18.30 - CHRONIC KIDNEY DISEASE, STAGE 3 UNSPECIFIED SNOMED Code(s): 162698099 (12) Systolic congestive heart failure, possibly acute on chronic, with nonis chemic cardiomyopathy Current Visit: No Status: Acute Code(s): I50.20 - UNSPECIFIED SYSTOLIC (CONGESTIVE) HEART FAILURE SNOMED Code(s): 18459641 (13) Chronic indwelling Felder catheter Current Visit: Yes Status: Acute Code(s): Z97.8 - PRESENCE OF OTHER SPECIFIED DEVICES SNOMED Code(s): 556922135 Plan: Continue on current medication regime ,monitoring and symptomatic treatment. INR subtherapeutic and continues on both Lovenox and Coumadin, INR currently 1.4. Echo results pending. Maintain nebulized bronchodilators, antibiotics. PT/OT, patient resides at [facility]. Prognosis remains guarded given ,multiple medical issues. The impression and plan of care has been dictated as directed. : I performed a history and examination of this patient, discussed the same with the dictator. I agree with the dictator's note ,documented as a scribe. Any additional findings or plans will be noted.
[2022-07-16 17:12] LABS: Glucose,Whole Blood 122 mg/dL (70-110)
[2022-07-16 20:03] LABS: Glucose,Whole Blood 217 mg/dL (70-110)
[2022-07-16] MEDS ORDERED: WARFARIN 2 MG TAB PO ONE (21:00)
[2022-07-16] MEDS ORDERED: WARFARIN 3 MG TAB PO ONE (21:00)
[2022-07-16] MEDS: MELATONIN 3 MG TABLET PO SCH (21:46)
[2022-07-16] MEDS: SENNOSIDES-DOCUSATE SODIUM 1 EACH TAB PO SCH (21:46)
[2022-07-16] MEDS: FUROSEMIDE 40 MG TAB PO SCH (21:47)
[2022-07-16] MEDS: SERTRALINE 50 MG TAB PO SCH (21:47)
[2022-07-17] MEDS: methylPREDNISolone SOD SUCCI 125 MG/2 ML VIAL IV SCH ×5 (00:09→23:57)
[2022-07-17 06:12] LABS: Glucose,Whole Blood 138 mg/dL (70-110)
[2022-07-17] MEDS: INSULIN ASPART (NovoLOG) 100 UNIT/ML VIAL SQ SCH ×4 (07:20→19:58)
[2022-07-17] MEDS: IPRATROPIUM-ALBUTEROL 3 ML NEB INHALATION SCH ×4 (08:51→20:23)
[2022-07-17] MEDS: SYMBICORT 80-4.5 MCG INHALER INHALATION SCH ×2 (08:52→20:23)
[2022-07-17] MEDS: ENOXAPARIN 40 MG/0.4 ML SYRINGE SQ SCH (09:11)
[2022-07-17] MEDS: SACUBITRIL/VALSARTAN 24 MG-26 MG TABLET PO SCH ×2 (09:11→19:54)
[2022-07-17] MEDS: METOPROLOL TARTRATE 25 MG TAB PO SCH ×2 (09:11→19:51)
[2022-07-17] MEDS: CYANOCOBALAMIN 500 MCG TAB PO SCH (09:11)
[2022-07-17] MEDS: AMOXIC-POT CLAV 875-125MG 1 EACH TAB PO SCH (09:11)
[2022-07-17] MEDS: FUROSEMIDE 80 MG TAB PO SCH (09:11)
--- NOTE | 2022-07-17 09:12 | CA ---
Transthoracic Echo Report Name: Ankur Pereira Age: 82 Gender: M : 1940 Exam Date: 07/16/2022 09:15 Exam Location: [facility] Ht (in): 70 Wt (lb): 119 Ordering Physician: Magnolia Castellon Attending/Referring Phys: [id number], Ravinder Press Operator Apprentice Anu Ashford RDCS Procedure CPT: Indications: chf Cardiac Hx: Technical Quality: Fair Contrast 1: Total Dose (mL): Contrast 2: Total Dose (mL): MEASUREMENTS (Male / Female) Normal Values 2D ECHO LV Diastolic Diameter PLAX 4.7 cm 4.2 - 5.9 / 3.9 - 5.3 cm LV Systolic Diameter PLAX 4.0 cm IVS Diastolic Thickness 1.3 cm 0.6 - 1.0 / 0.6 - 0.9 cm LVPW Diastolic Thickness 1.2 cm 0.6 - 1.0 / 0.6 - 0.9 cm LV Relative Wall Thickness 0.5 RV Internal Dim ED PLAX 3.0 cm LV Diastolic Volume MOD BP 113.9 cm??? 67 - 155 / 56 - 104 cm??? LV Systolic Volume MOD BP 79.8 cm??? 22 - 58 / 19 - 49 cm??? LV Ejection Fraction MOD BP 29.9 % >= 55 % LV Cardiac Index MOD BP 2363.2 cm???/min???m??? LV Diastolic Volume MOD 4C 107.9 cm??? LV Systolic Volume MOD 4C 69.7 cm??? LV Ejection Fraction MOD 4C 35.4 % LV Cardiac Index MOD 4C 2646.5 cm???/min???m??? LV Diastolic Length 4C 6.8 cm LV Systolic Length 4C 5.9 cm LV Diastolic Volume MOD 2C 116.1 cm??? LV Systolic Volume MOD 2C 78.2 cm??? LV Ejection Fraction MOD 2C 32.7 % LV Cardiac Index MOD 2C 2630.0 cm???/min???m??? LV Diastolic Length 2C 7.2 cm LV Systolic Length 2C 7.0 cm LA Volume 100.1 cm??? 18 - 58 / 22 - 52 cm??? M-MODE Aortic Root Diameter MM 4.3 cm LA Systolic Diameter MM 4.7 cm LA Ao Ratio MM 1.1 AV Cusp Separation MM 0.9 cm DOPPLER AV Peak Velocity 197.4 cm/s AV Peak Gradient 15.6 mmHg AV Mean Velocity 144.8 cm/s AV Mean Gradient 9.1 mmHg AV Velocity Time Integral 33.6 cm AI Peak Velocity 354.9 cm/s AI Peak Gradient 50.4 mmHg AI Pressure Half Time 274.1 ms LVOT Peak Velocity 87.7 cm/s LVOT Peak Gradient 3.1 mmHg LVOT Velocity Time Integral 15.1 cm MV Peak Velocity 243.8 cm/s MV Peak Gradient 23.8 mmHg MV Mean Velocity 132.1 cm/s MV Mean Gradient 8.2 mmHg MV Velocity Time Integral 37.7 cm MV Area PHT 4.0 cm??? TV Peak Velocity 192.8 cm/s TR Peak Velocity 365.9 cm/s TR Peak Gradient 53.5 mmHg Right Ventricular Systolic Press 58.5 mmHg FINDINGS Left Ventricle Mildly increased septal wall thickness. Moderately increased left ventricular systolic volume. Moderate to severe decrease in ejection fraction estimated to be about 30-35% with atypical septal motion Right Ventricle Normal right ventricular size and function. Moderate to severe pulmonary hypertension. Right ventricular systolic pressure estimated at 59 mm Hg. Right Atrium Normal right atrial size. Left Atrium Severely increased left atrial volume. Mildly increased left atrial area. Mitral Valve Bioprosthetic mitral valve with normal function. Severe mitral annular calcification. Aortic Valve Thickened aortic valve without stenosis. Mild aortic regurgitation. Tricuspid Valve S/P Tricuspid valve repair. Mamu-[id number]-[id number] tricuspid regurgitation. Pulmonic Valve Trace pulmonic regurgitation. Pericardium No pericardial effusion. Aorta Normal size aortic root and proximal ascending aorta. CONCLUSIONS Global decrease in contractility noted this minute ejection fraction of 30-35%. Moderate to severe pulmonary hypertension. Stable mitral valve bioprosthesis with severe mitral annular calcification. Tricuspid valve repair is evident there is mild to moderate tricuspid regurgitation and also aortic valve sclerosis with calcification and mild regurgitation no clearcut stenosis. No pericardial effusion Previewed by: Dr. Perry Caba MD (Electronically Signed) Final Date: 17 Jul 2022 09:11
[2022-07-17 09:25] LABS: Calcium 8.9 mg/dL (8.4-10.2); Potassium 4.1 mmol/L (3.5-5.1)
[2022-07-17 09:30] LABS: INR 1.5 (<1.2); Prothrombin Time 14.8 sec (9.0-12.0)
--- NOTE | 2022-07-17 10:51 | P.PN ---
Subjective Progress Note Date: 07/17/22 HISTORY OF PRESENT ILLNESS: The patient is an 82-year-old male who follows in the office with Dr. Kramer. He initially presented to the hospital with increased shortness of breath after being evaluated in his primary care provider's office.. He was found to be hypoxic with pulse ox in the mid 70s. The patient has multiple comorbid conditions and is frequently admitted to the hospital. DIAGNOSTICS: EKG shows sinus tachycardia with left anterior fascicular block Chest x-ray shows chronic emphysema and pulmonary fibrotic changes. No acute cardiopulmonary process Lab data: WBC 9.0, hemoglobin 11.0, hematocrit 36.2, platelet 46, sodium 138, potassium 4.5, BUN 54, creatinine 1.36, magnesium 2.3, AST 1231, ALT 24, ALP 55, troponin 0.03, 0.02. No BNP drawn. 07/16/2022 Patient examined this morning at the bedside. Patient denies chest pain or pressure. He reports shortness of breath with conversation. He is currently receiving a breathing treatments have examination. He has wheezing throughout. Telemetry reveals atrial fibrillation with heart rate around 113. 2-D echo is currently pending. 07/17/2022 Patient examined this morning at the bedside. Patient continues to report shortness of breath. He states he feels less wheezy this morning. He remains on IV steroids. INR today is 1.5. Echocardiogram completed revealing ejection fraction 30-35%, moderate to severe pulmonary hypertension, bioprosthetic mitral valve with normal function, status post tricuspid valve repair, [id number] tricuspid regurgitation. PHYSICAL EXAM: VITAL SIGNS: Reviewed. GENERAL: Well-developed in no acute distress. NECK: Supple. No JVD or thyromegaly LUNGS: Respirations even and unlabored. Lungs with expiratory wheezing noted on the left and diminished breath sounds on the right, improved from yesterday. HEART: Irregular rate and rhythm. S1 and S2 heard. EXTREMITIES: Normal range of motion. No clubbing or cyanosis. Peripheral pulses intact. No lower extremity edema ASSESSMENT: Acute COPD exacerbation Acute on chronic hypoxic respiratory failure Hypoxic respiratory failure, on home oxygen Chronic heart failure with reduced EF, 30-35%, currently euvolemic Persistent atrial fibrillation with controlled ventricular rate Nonischemic cardiomyopathy History of mitral valve replacement and tricuspid valve repair, performed at [facility] History of AAA with previous endovascular stent grafting Hyperlipidemia Subtherapeutic INR, on Coumadin outpatient PLAN: Continue current cardiac medications Continue Coumadin. Monitor INR. Patient has been started on Lovenox per prim moustapha medicine until INR is therapeutic Continue IV steroids per pulmonary medicine Further recommendations pending patient's course Patient to follow-up post discharge with Dr. Kramer Nurse practitioner note has been reviewed by physician. Signing provider agrees with the documented findings, assessment, and plan of care. Objective - Vital Signs Vital signs: Vital Signs Temp 97.9 F 07/17/22 08:20 Pulse 92 07/17/22 09:11 Resp 18 07/17/22 08:20 BP 119/73 07/17/22 08:20 Pulse Ox 93 L 07/17/22 08:52 FiO2 Intake & Output 07/16/22 07/17/22 07/17/22 18:59 06:59 18:59 Intake Total 1134 237 Output Total 1700 1000 Balance -566 -1000 237 Weight 53.977 kg Intake: Oral 1134 237 Output: Urine 1700 1000 Other: Voiding Method Indwelling Catheter Indwelling Catheter Indwelling Catheter - Labs CBC & Chem 7: 07/15/22 10:31 07/17/22 08:50 Labs: Abnormal Lab Results - Last 24 Hours (Table) 07/16/22 07/16/22 07/17/22 Range/Units 17:06 20:01 06:11 PT (9.0-12.0) sec INR (<1.2) Chloride (98-107) mmol/L Carbon Dioxide (22-30) mmol/L BUN (9-20) mg/dL Glucose (74-99) mg/dL POC Glucose (mg/dL) 122 H 217 H 138 H (70-110) mg/dL 07/17/22 07/17/22 Range/Units 08:50 08:50 PT 14.8 H (9.0-12.0) sec INR 1.5 H (<1.2) Chloride 95 L (98-107) mmol/L Carbon Dioxide 39 H (22-30) mmol/L BUN 59 H (9-20) mg/dL Glucose 108 H (74-99) mg/dL POC Glucose (mg/dL) (70-110) mg/dL Microbiology - Last 24 Hours (Table) 07/12/22 15:45 Blood Culture - Preliminary Blood 07/12/22 16:00 Blood Culture - Preliminary Blood
--- NOTE | 2022-07-17 11:09 | XR ---
EXAMINATION TYPE: XR chest 1V portable DATE OF EXAM: 07/17/2022 COMPARISON: 07/12/2022 HISTORY: Shortness of breath TECHNIQUE: Single frontal view of the chest is obtained. FINDINGS: Severe diffuse emphysematous changes with coarsened interstitium in the lung bases. Subseg mental changes bilateral lower lobes. This finding is similar to previous exam. There is postoperativ e change with cardiac valve replacement. No definite pneumothorax. Diffuse osteopenia and arthropathy of the shoulders. IMPRESSION: 1. Diffuse COPD with the chronic interstitial changes could be on the basis of fibrosis or vascular c rowding with mild venous congestion. Basilar atelectasis favored over pneumonia.
[2022-07-17 11:45] LABS: Glucose,Whole Blood 108 mg/dL (70-110)
--- NOTE | 2022-07-17 12:16 | P.PN ---
Subjective Progress Note Date: 07/17/22 07/13/22 This is a 82-year-old male although the practice. He is oxygen and steroid dependent COPD. He was in the office yesterday and was very winded and dyspneic. His pulse ox is 73% after ambulating from the waiting room to the exam room. Dr. elizondo it seen him and sent him the emergency room for further evaluation. This morning he is feeling much better. Denies any chest pains nausea and vomiting. He has a history of COPD, oxygen dependent, atrial fibrillation chronic systolic CHF, CKD3a, and multiple other medical issues. Former smoker. He rarely resides at [facility] sinceback on April 27 2022, he had been in and out of [facility] several times previously to this. 07/14/2022: patient hasc/o of weakenss today. Breathing is better. He asked abotu ECF for a few days. He h\denies any chest pain pressure, nausea or vomiting. He has chronic SOB witbh exertion. Vitals are stable, but he does have some tachycardia with exertion.Labs show INR 1.1. He remains on Coumadin per protocol and leovenox for subtheraputic coverage. blood cultures negative. Pulmonology following. July 15, 2022: patient is improved. He is able to ambulate 200 feet through.He does complain of shortness of breath with exertion. He currently does not feel as baseline yet.Cardiology is planning a 2-D echo. Vital signs remain stable.Pulmonology notes reviewed. He continues on high-dose steroids updrafts. Lovenox for coverage since his INR is not theraputic 07/16/2022 continues on IV steroids, Augmentin, oral diuretics .maintaining O2 sats of 95% on 2 L at rest. Reported O2 sat decreased to 84% upon transferring from bed to chair on 2 L nasal cannula. Echo completed, results pending. Atrial fibrillation, rates ranging in the low 100s to 1 teens. Bicarb 38, BUN 55, creatinine 1.17. Afebrile, blood cultures reporting no growth. INR subtherapeutic, 1.4, maintained on both Lovenox and warfarin. 07/17/2022 maintained on nebulized bronchodilators ATC, IV steroids and Augmentin .afebrile, preliminary blood cultures reporting no growth . Oxygen titrated up to 2.5 L, maintaining O2 sats in the 90s. Anticoagulated on both Lovenox and warfarin, INR subtherapeutic, 1.5. Echo reported EF 30-35%, mo derate to severe pulmonary hypertension, severe mitral valve bioprosthesis with severe mitral annular calcification mild to moderate tricuspid regurgitation, aortic valve sclerosis with mild calcification and regurgitation without clearcut stenosis. Diuresing well on oral diuretics with 24-hour I&O reflecting a negative fluid balance .BUN 59, creatinine 1.22, GFR 56. Objective - Vital Signs Vital signs: Vital Signs Temp 97.9 F 07/17/22 08:20 Pulse 92 07/17/22 09:11 Resp 18 07/17/22 08:20 BP 119/73 07/17/22 08:20 Pulse Ox 93 L 07/17/22 08:52 FiO2 Intake & Output 07/16/22 07/17/22 07/17/22 18:59 06:59 18:59 Intake Total 1134 237 Output Total 1700 1000 Balance -566 -1000 237 Weight 53.977 kg Intake: Oral 1134 237 Output: Urine 1700 1000 Other: Voiding Method Indwelling Catheter Indwelling Catheter Indwelling Catheter - Exam - Exam General: Sitting up in chair, alert and oriented 3, dyspneic with conversing ,pursed lip breathing Neck: Supple, no JVD Cardiac: Heart regular in rate and rhythm with ectopy noted.. No S3. No S4. No clicks, rubs. 1/6 systolic murmur consistent with his aortic valve replacement Lungs: Diminished breath sounds bilaterally imroved, fine expiratory wheezing Abdomen: Soft, nontender No mass. No organomegaly. Bowel sounds presnt and normative in all 4 quadrants.] Extremes: [No edema no cyanosis no claudication normal pulses Skin: [No rash, warm and dry.] Neurologic: [CN II - XII grossly intact, strength and sensation grossly intact.] - Labs CBC & Chem 7: 07/15/22 10:31 07/17/22 08:50 Labs: Abnormal Lab Results - Last 24 Hours (Table) 07/16/22 07/16/22 07/17/22 Range/Units 17:06 20:01 06:11 PT (9.0-12.0) sec INR (<1.2) Chloride (98-107) mmol/L Carbon Dioxide (22-30) mmol/L BUN (9-20) mg/dL Glucose (74-99) mg/dL POC Glucose (mg/dL) 122 H 217 H 138 H (70-110) mg/dL 07/17/22 07/17/22 Range/Units 08:50 08:50 PT 14.8 H (9.0-12.0) sec INR 1.5 H (<1.2) Chloride 95 L (98-107) mmol/L Carbon Dioxide 39 H (22-30) mmol/L BUN 59 H (9-20) mg/dL Glucose 108 H (74-99) mg/dL POC Glucose (mg/dL) (70-110) mg/dL Microbiology - Last 24 Hours (Table) 07/12/22 15:45 Blood Culture - Preliminary Blood 07/12/22 16:00 Blood Culture - Preliminary Blood Assessment and Plan Assessment: (1) COPD exacerbation Current Visit: Yes Status: Acute Code(s): J44.1 - CHRONIC OBSTRUCTIVE PULMONARY DISEASE W (ACUTE) EXACERBATION SNOMED Code(s): 106398307 (2) Acute and chronic respiratory failure with hypoxia Current Visit: No Status: Acute Code(s): J96.21 - ACUTE AND CHRONIC RESPIRATORY FAILURE WITH HYPOXIA SNOMED Code(s): 83785283 (3) Anemia Current Visit: No Status: Acute Code(s): D64.9 - ANEMIA, UNSPECIFIED SNOMED Code(s): 811204935 (4) Degenerative scoliosis in adult patient Current Visit: No Status: Acute Code(s): M41.50 - OTHER SECONDARY SCOLIOSIS, SITE UNSPECIFIED SNOMED Code(s): 342391111 (5) H/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 Current Visit: No Status: Acute Code(s): Z95.3 - PRESENCE OF XENOGENIC HEART VALVE SNOMED Code(s): 263805383 (6) History of endovascular stent graft for abdominal aortic aneurysm (AAA) Current Visit: No Status: Acute Code(s): Z95.828 - PRESENCE OF OTHER VASCULAR IMPLANTS AND GRAFTS SNOMED Code(s): 363853604816421 (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 Current Visit: No Status: Acute Code(s): Z79.01 - LONG-TERM (CURRENT) USE OF ANTICOAGULANTS SNOMED Code(s): 466422225 (8) Mixed hyperlipidemia Current Visit: No Status: Acute Code(s): E78.2 - MIXED HYPERLIPIDEMIA SNOMED Code(s): 213134123 (9) persistent atrial fibrillation, rate controlled (10) Pulmonary hypertension Current Visit: No Status: Acute Code(s): I27.20 - PULMONARY HYPERTENSION, UNSPECIFIED SNOMED Code(s): 85243562 (11) Stage III chronic kidney disease Current Visit: No Status: Acute Code(s): N18.30 - CHRONIC KIDNEY DISEASE, STAGE 3 UNSPECIFIED SNOMED Code(s): 374089156 (12) Systolic congestive heart failure, possibly acute on chronic, with nonischemic cardiomyopathy Current Visit: No Status: Acute Code(s): I50.20 - UNSPECIFIED SYSTOLIC (CONGESTIVE) HEART FAILURE SNOMED Code(s): 08286511 (13) Chronic indwelling Felder catheter Current Visit: Yes Status: Acute Code(s): Z97.8 - PRESENCE OF OTHER SPECIFI ED DEVICES SNOMED Code(s): 097841650 Plan: Continue on current medication regime ,monitoring and symptomatic treatment. INR subtherapeutic,continue on both Lovenox and Coumadin. Aggressive pulmonary toileting, maintain ATC nebulized bronchodilators, steroids, antibiotics. PT/OT. Not ready for discharge. Prognosis remains guarded given ,multiple medical issues. The impression and plan of care has been dictated as directed. : I performed a history and examination of this patient, discussed the same with the dictator. I agree with the dictator's note ,documented as a scribe. Any additional findings or plans will be noted.
[2022-07-17] MEDS: LORazepam 1 MG TAB PO PRN ×2 (13:00→19:51)
--- NOTE | 2022-07-17 13:16 | P.PN ---
Subjective Progress Note Date: 07/17/22 Principal diagnosis: Acute exacerbation of chronic obstructive lung disease and acute exacerbation of chronic systolic congestive heart failure This is a very pleasant 82-year-old male patient with a known history of chronic obstructive pulmonary disease, atrial fibrillation, congestive heart failure, hyperlipidemia, previous GI bleed, chronic kidney disease stage III, previous aortic aneurysm stent placement, peripheral vascular disease, mitral valve replacement, anxiety, former smoker, history of daily alcohol use. The patient has had multiple admissions for COPD and CHF exacerbations. He is recently residing at [facility] the patient currently docile yesterday because of worsening shortness of breath. He was seeing his primary care physician, Dr. Maddox currently and he was noted to have some diminished breath sounds bilaterally and he was also noted to have some increased shortness of breath. For that reason, he was directed to the emergency department. He has no nausea or vomiting or abdominal pain. No headaches. No altered mentation. He remains in atrial fibrillation. The WBC count is at 7.7 with a hemoglobin of 10.8 and a platelet count of 308. His INR is at 1.2 with a PT of 12. BUN is 46 with a creatinine of 1.04 and sodium level is 132. Lactic acid level was high as 2.5- 1.1. Troponins Are 0.03 and 0.02 Respectively. LFTs Are Normal. Influenza Screen, Covid 19 and RSV Were All Negative. Is on Home O2 at 3 L and He Remains on 3 L of Oxygen by Nasal Cannula. Chest X-Ray Shows Chronic Changes without Any Acute Cardiac Pulmonary Abnormalities. On today's evaluation of 07/16/2022, the patient is feeling slightly better compared to yesterday. The patient was seen yesterday for exacerbation of COPD/CHF. The patient is currently on Symbicort, DuoNeb about treatments [id number], oral Lasix, IV Solu-Medrol. He remains on oxygen 3 L/m nasal cannula. No new labs are available from today. On today's evaluation of 07/15/2022, patient is doing well. No specific complaints. He reports improvement in his breathing. No new complaints. Less short of breath and less spastic and wheezing. Remains on Symbicort. Remains on DuoNeb about treatments [id number]. Remains on IV Solu-Medrol. He remains on Augmentin. Anticoagulation is still with warfarin. INR is subtherapeutic still. The patient is seen today 07/16/2022 in follow-up on the selective care unit. He is currently sitting up in a chair at the bedside. Awake and alert in no acute distress. He is dyspneic with conversation. Dyspneic with minimal activity. Currently maintaining O2 saturations in the 90s on 3 L/m per nasal cannula. He is afebrile. Blood cultures reveal no growth. INR 1.4. Sodium 139. Potassium 3.7. Bicarb 38. BUN 55. Creatinine 1.17. Glucose 122. He is continued on DuoNeb inhalations, Symbicort, IV Solu-Medrol. Continued Lovenox until warfarin therapeutic. Remains on oral diuretics. Antibiotics in the form of Augmentin. Currently in a negative balance. Reevaluated today on 07/17/2022, patient is feeling better today compared to yesterday, sitting at a bedside chair, on 2.5 L nasal cannula, O2 sats is 93%. Remains on multiple bronchodilators, remains on Lasix at 80 mg in a.m. and 40 mg in p.m., patient remains on methylprednisolone 60 mg IV push every 6 hours, and he is on multiple cardiac meds for his chronic LV dysfunction. Overall the patient is improving, he seems to be feeling much better today compared to yesterday. His electrolytes are normal bicarb is 39 BUN is 59 and creatinine 1. 2 to Objective - Vital Signs Vital signs: Vital Signs Temp 97.9 F 07/17/22 08:20 Pulse 84 07/17/22 12:03 Resp 18 07/17/22 08:20 BP 119/73 07/17/22 08:20 Pulse Ox 93 L 07/17/22 08:52 FiO2 Intake & Output 07/16/22 07/17/22 07/17/22 18:59 06:59 18:59 Intake Total 1134 237 Output Total 1700 1000 Balance -566 -1000 237 Weight 53.977 kg Intake: Oral 1134 237 Output: Urine 1700 1000 Other: Voiding Method Indwelling Catheter Indwelling Catheter Indwelling Catheter - Exam Physical Exam: Revealed 82-year-old white male in no distress on nasal cannula sating at a bedside chair. Head: Atraumatic, normocephalic. HEENT:[Neck is supple.] [No neck masses.] [No thyromegaly.] [No JVD.] PERRLA, EOMI, nonicteric. Chest: [Minimal fine crackles at the bases no rhonchi or wheezes Cardiac Exam: [Normal S1 and S2, no S3 gallop, 2/6 systolic murmur thought the precordium. Abdomen: [Soft, nontender, no megaly, no rebound, no guarding, normal bowel sounds.] Extremities: [No clubbing, no edema, no cyanosis.] Neurological Exam: [No focal neurologic deficit.] Alert oriented 3. Psychiatric: Normal mood, affect and normal mental status examination. Skin: No rashes - Labs CBC & Chem 7: 07/15/22 10:31 07/17/22 08:50 Labs: Abnormal Lab Results - Last 24 Hours (Table) 07/16/22 07/16/22 07/17/22 Range/Units 17:06 20:01 06:11 PT (9.0-12.0) sec INR (<1.2) Chloride (98-107) mmol/L Carbon Dioxide (22-30) mmol/L BUN (9-20) mg/dL Glucose (74-99) mg/dL POC Glucose (mg/dL) 122 H 217 H 138 H (70-110) mg/dL 07/17/22 07/17/22 Range/Units 08:50 08:50 PT 14.8 H (9.0-12.0) sec INR 1.5 H (<1.2) Chloride 95 L (98-107) mmol/L Carbon Dioxide 39 H (22-30) mmol/L BUN 59 H (9-20) mg/dL Glucose 108 H (74-99) mg/dL POC Glucose (mg/dL) (70-110) mg/dL Microbiology - Last 24 Hours (Table) 07/12/22 15:45 Blood Culture - Preliminary Blood 07/12/22 16:00 Blood Culture - Preliminary Blood Assessment and Plan Assessment: Impression: Chronic hypoxic respiratory failure, multifactorial mostly secondary to COPD and secondary to chronic systolic congestive heart failure Acute on chronic hypoxic respiratory failure secondary to COPD exacerbation/acute and acute on chronic systolic congestive heart failure Chronic LV dysfunction and ejection fraction of 25-50% History of mitral valve replacement back in 2014 and repair of bicuspid aortic valve Abdominal aortic aneurysm with previous endovascular stent grafting Chronic atrial fibrillation maintained on Coumadin Former smoker. Dyslipidemia Stage III chronic kidney disease Severe peripheral vessel occlusive disease History of benign prostatic hypertrophy Poor overall functional performance secondary to multiple comorbidities as noted above. Recommendation: Continue diuretics Continue bronchodilators Continue Lovenox until INR is therapeutic Continue to titrate oxygen accordingly Will clear the patient for discharge planning if cleared by cardiology. In the meantime we'll continue to follow until cleared by other consultants Time with Patient: Less than 30
[2022-07-17 16:48] LABS: Glucose,Whole Blood 145 mg/dL (70-110)
[2022-07-17] MEDS: SENNOSIDES-DOCUSATE SODIUM 1 EACH TAB PO SCH (19:51)
[2022-07-17] MEDS: SERTRALINE 50 MG TAB PO SCH (19:51)
[2022-07-17] MEDS: MELATONIN 3 MG TABLET PO SCH (19:51)
[2022-07-17] MEDS: FUROSEMIDE 40 MG TAB PO SCH (19:51)
[2022-07-17 19:59] LABS: Glucose,Whole Blood 157 mg/dL (70-110)
[2022-07-17] MEDS ORDERED: WARFARIN 5 MG TAB PO ONE (21:00)
[2022-07-18 04:34] VITALS: TEMP 97.6
[2022-07-18 06:20] LABS: Glucose,Whole Blood 148 mg/dL (70-110)
[2022-07-18] MEDS: INSULIN ASPART (NovoLOG) 100 UNIT/ML VIAL SQ SCH ×2 (06:21→13:19)
[2022-07-18] MEDS: methylPREDNISolone SOD SUCCI 125 MG/2 ML VIAL IV SCH ×2 (06:24→13:26)
[2022-07-18 07:45] LABS: INR 1.9 (<1.2); Prothrombin Time 18.7 sec (9.0-12.0)
[2022-07-18] MEDS: SYMBICORT 80-4.5 MCG INHALER INHALATION SCH (08:24)
[2022-07-18] MEDS: IPRATROPIUM-ALBUTEROL 3 ML NEB INHALATION SCH ×3 (08:24→15:23)
[2022-07-18 08:25] LABS: Calcium 8.6 mg/dL (8.4-10.2)
[2022-07-18] MEDS: CYANOCOBALAMIN 500 MCG TAB PO SCH (10:37)
[2022-07-18] MEDS: FUROSEMIDE 80 MG TAB PO SCH (10:37)
[2022-07-18] MEDS: ENOXAPARIN 40 MG/0.4 ML SYRINGE SQ SCH (10:37)
[2022-07-18] MEDS: SACUBITRIL/VALSARTAN 24 MG-26 MG TABLET PO SCH (10:37)
[2022-07-18] MEDS: METOPROLOL TARTRATE 25 MG TAB PO SCH (10:37)
--- NOTE | 2022-07-18 11:38 | P.PN ---
Subjective Progress Note Date: 07/18/22 HISTORY OF PRESENT ILLNESS: The patient is an 82-year-old male who follows in the office with Dr. Kramer. He initially presented to the hospital with increased shortness of breath after being evaluated in his primary care provider's office.. He was found to be hypoxic with pulse ox in the mid 70s. The patient has multiple comorbid conditions and is frequently admitted to the hospital. DIAGNOSTICS: EKG shows sinus tachycardia with left anterior fascicular block Chest x-ray shows chronic emphysema and pulmonary fibrotic changes. No acute cardiopulmonary process Lab data: WBC 9.0, hemoglobin 11.0, hematocrit 36.2, platelet 46, sodium 138, potassium 4.5, BUN 54, creatinine 1.36, magnesium 2.3, AST 1231, ALT 24, ALP 55, troponin 0.03, 0.02. No BNP drawn. 07/16/2022 Patient examined this morning at the bedside. Patient denies chest pain or pressure. He reports shortness of breath with conversation. He is currently receiving a breathing treatments have examination. He has wheezing throughout. Telemetry reveals atrial fibrillation with heart rate around 113. 2-D echo is currently pending. 07/17/2022 Patient examined this morning at the bedside. Patient continues to report shortness of breath. He states he feels less wheezy this morning. He remains on IV steroids. INR today is 1.5. Echocardiogram completed revealing ejection fraction 30-35%, moderate to severe pulmonary hypertension, bioprosthetic mitral valve with normal function, status post tricuspid valve repair, [id number] tricuspid regurgitation. 07/18/2022 Patient examined this morning at the bedside. Patient denies chest pain or pressure. He currently denies shortness of breath. Patient's vital signs are stable. Patient is hoping to be discharged home today. PHYSICAL EXAM: VITAL SIGNS: Reviewed. GENERAL: Well-developed in no acute distress. NECK: Supple. No JVD or thyromegaly LUNGS: Respirations even and unlabored. Lungs diminished. HEART: Irregular rate and rhythm. S1 and S2 heard. EXTREMITIES: Normal range of motion. No clubbing or cyanosis. Peripheral pulses intact. No lower extremity edema ASSESSMENT: Acute COPD exacerbation Acute on chronic hypoxic respiratory failure Hypoxic respiratory failure, on home oxygen Chronic heart failure with reduced EF, 30-35%, currently euvolemic Persistent atrial fibrillation with controlled ventricular rate Nonischemic cardiomyopathy History of mitral valve replacement and tricuspid valve repair, performed at [facility] History of AAA with previous endovascular stent grafting Hyperlipidemia Subtherapeutic INR, on Coumadin outpatient PLAN: Continue current cardiac medications Continue Coumadin. Monitor INR. Patient is stable for discharge home today from a cardiac standpoint Patient to follow-up post discharge with Dr. Kramer Nurse practitioner note has been reviewed by physician. Signing provider agrees with the documented findings, assessment, and plan of care. Objective - Vital Signs Vital signs: Vital Signs Temp 97.6 F 07/18/22 04:00 Pulse 96 07/18/22 08:41 Resp 20 07/18/22 04:00 BP 110/63 07/18/22 04:00 Pulse Ox 98 07/18/22 04:00 FiO2 Intake & Output 07/17/22 07/18/22 07/18/22 18:59 06:59 18:59 Intake Total 474 776 Output Total 1300 820 350 Balance -826 -820 426 Weight 53.8 kg Intake: Oral 474 776 Output: Urine 1300 820 350 Other: Voiding Method Indwelling Catheter Indwelling Catheter # Bowel Movements 0 - Labs CBC & Chem 7: 07/15/22 10:31 07/18/22 06:13 Labs: Abnormal Lab Results - Last 24 Hours (Table) 07/17/22 07/17/22 07/18/22 Range/Units 16:47 19:57 06:13 PT 18.7 H (9.0-12.0) sec INR 1.9 H (<1.2) Chloride (98-107) mmol/L Carbon Dioxide (22-30) mmol/L BUN (9-20) mg/dL Creatinine (0.66-1.25) mg/dL Glucose (74-99) mg/dL POC Glucose (mg/dL) 145 H 157 H (70-110) mg/dL 07/18/22 07/18/22 Range/Units 06:13 06:18 PT (9.0-12.0) sec INR (<1.2) Chloride 95 L (98-107) mmol/L Carbon Dioxide 34 H (22-30) mmol/L BUN 66 H (9-20) mg/dL Creatinine 1.28 H (0.66-1.25) mg/dL Glucose 133 H (74-99) mg/dL POC Glucose (mg/dL) 148 H (70-110) mg/dL Microbiology - Last 24 Hours (Table) 07/12/22 15:45 Blood Culture - Final Blood 07/12/22 16:00 Blood Culture - Final Blood
[2022-07-18 11:58] LABS: Glucose,Whole Blood 133 mg/dL (70-110)
[2022-07-18 12:39] VITALS: BP 117/63; RESP 16
--- NOTE | 2022-07-18 14:37 | P.PN ---
Subjective Progress Note Date: 07/18/22 This is a very pleasant 82-year-old male patient with a known history of chronic obstructive pulmonary disease, atrial fibrillation, congestive heart failure, hyperlipidemia, previous GI bleed, chronic kidney disease stage III, previous aortic aneurysm stent placement, peripheral vascular disease, mitral valve replacement, anxiety, former smoker, history of daily alcohol use. The patient has had multiple admissions for COPD and CHF exacerbations. He is recently residing at [facility] the patient currently docile yesterday because of worsening shortness of breath. He was seeing his primary care physician, Dr. Maddox currently and he was noted to have some diminished breath sounds bilaterally and he was also noted to have some increased shortness of breath. For that reason, he was directed to the emergency department. He has no nausea or vomiting or abdominal pain. No headaches. No altered mentation. He remains in atrial fibrillation. The WBC count is at 7.7 with a hemoglobin of 10.8 and a platelet count of 308. His INR is at 1.2 with a PT of 12. BUN is 46 with a creatinine of 1.04 and sodium level is 132. Lactic acid level was high as 2.5- 1.1. Troponins Are 0.03 and 0.02 Respectively. LFTs Are Normal. Influenza Screen, Covid 19 and RSV Were All Negative. Is on Home O2 at 3 L and He Remains on 3 L of Oxygen by Nasal Cannula. Chest X-Ray Shows Chronic Changes without Any Acute Cardiac Pulmonary Abnormalities. On today's evaluation of 07/16/2022, the patient is feeling slightly better compared to yesterday. The patient was seen yesterday for exacerbation of COPD/CHF. The patient is currently on Symbicort, DuoNeb about treatments [id number], oral Lasix, IV Solu-Medrol. He remains on oxygen 3 L/m nasal cannula. No new labs are available from today. On today's evaluation of 07/15/2022, patient is doing well. No specific complaints. He reports improvement in his breathing. No new complaints. Less short of breath and less spastic and wheezing. Remains on Symbicort. Remains on DuoNeb about treatments [id number]. Remains on IV Solu-Medrol. He remains on Augmentin. Anticoagulation is still with warfarin. INR is subtherapeutic still. The patient is seen today 07/16/2022 in follow-up on the selective care unit. He is currently sitting up in a chair at the bedside. Awake and alert in no acute distress. He is dyspneic with conversation. Dyspneic with minimal activity. Currently maintaining O2 saturations in the 90s on 3 L/m per nasal cannula. He is afebrile. Blood cultures reveal no growth. INR 1.4. Sodium 139. Potassium 3.7. Bicarb 38. BUN 55. Creatinine 1.17. Glucose 122. He is continued on DuoNeb inhalations, Symbicort, IV Solu-Medrol. Continued Lovenox until warfarin therapeutic. Remains on oral diuretics. Antibiotics in the form of Augmentin. Currently in a negative balance. The patient is seen today 07/18/2022 in follow-up on the selective care unit. He is awake and alert in no acute distress. Sitting up in a chair at the bedside. Maintaining good O2 saturations in the 90s on 3 L/m per nasal cannula. Breathing a bit easier today compared to yesterday. Recent chest x-ray revealed diffuse COPD with chronic interstitial changes. Basilar atelectasis. Blood cultures reveal no growth. INR 1.9. Sodium 138. Potassium 4.0. Bicarb 34. BUN 66. Creatinine 1.23. Glucose 133. He remains on Symbicort, DuoNeb inhalations, IV Solu-Medrol. Remains on oral diuretics. Anticoagulated with warfarin. Was on Lovenox until therapeutic. Currently in a -1.6 L balance. Objective - Vital Signs Vital signs: Vital Signs Temp 97.6 F 07/18/22 04:00 Pulse 88 07/18/22 11:46 Resp 16 07/18/22 10:15 BP 117/63 07/18/22 10:15 Pulse Ox 97 07/18/22 10:15 FiO2 Intake & Output 07/17/22 07/18/22 07/18/22 18:59 06:59 18:59 Intake Total 474 894 Output Total 1300 820 350 Balance -826 -820 544 Weight 53.8 kg Intake: Oral 474 894 Output: Urine 1300 820 350 Other: Voiding Method Indwelling Catheter Indwelling Catheter Indwelling Catheter # Bowel Movements 0 - Exam GENERAL EXAM: Alert, pleasant 82-year-old male, sitting up in a chair, on 3 L nasal cannula, comfortable in no apparent distress. HEAD: Normocephalic. EYES: Normal reaction of pupils, equal size. NOSE: Clear with pink turbinates. THROAT: No erythema or exudates. NECK: No masses, no JVD. CHEST: No chest wall deformity. LUNGS: Equal air entry with faint crackles in the posterior bases, diminished. CVS: Irregular S1 and S2 normal with no audible murmur, irregular rhythm. ABDOMEN: No hepatosplenomegaly, normal bowel sounds, no guarding or rigidity. SPINE: No scoliosis or deformity SKIN: No rashes CENTRAL NERVOUS SYSTEM: No focal deficits, tone is normal in all 4 extremities. EXTREMITIES: There is no peripheral edema. No clubbing, no cyanosis. Peripheral pulses are intact. - Labs CBC & Chem 7: 07/15/22 10:31 07/18/22 06:13 Labs: Abnormal Lab Results - Last 24 Hours (Table) 07/17/22 07/17/22 07/18/22 Range/Units 16:47 19:57 06:13 PT 18.7 H (9.0-12.0) sec INR 1.9 H (<1.2) Chloride (98-107) mmol/L Carbon Dioxide (22-30) mmol/L BUN (9-20) mg/dL Creatinine (0.66-1.25) mg/dL Glucose (74-99) mg/dL POC Glucose (mg/dL) 145 H 157 H (70-110) mg/dL 07/18/22 07/18/22 07/18/22 Range/Units 06:13 06:18 11:56 PT (9.0-12.0) sec INR (<1.2) Chloride 95 L (98-107) mmol/L Carbon Dioxide 34 H (22-30) mmol/L BUN 66 H (9-20) mg/dL Creatinine 1.28 H (0.66-1.25) mg/dL Glucose 133 H (74-99) mg/dL POC Glucose (mg/dL) 148 H 133 H (70-110) mg/dL Microbiology - Last 24 Hours (Table) 07/12/22 15:45 Blood Culture - Final Blood 07/12/22 16:00 Blood Culture - Final Blood Assessment and Plan Assessment: Acute exacerbation of chronic structure pulmonary disease in combination with an acute exacerbation of systolic congestive heart failure with secondary shortness of breath Chronic hypoxemic respiratory failure, maintained on home O2 between 3 and 4 L of oxygen by nasal cannula. No interval worsening and oxygenation Chronic obstructive pulmonary disease, severe advanced and the patient is oxygen dependent Systolic heart failure with an ejection fraction of 25-30% History of mitral valve replacement that was done [facility] back in 2014 and the patient had a repair of a bicuspid aortic valve Abdominal aortic aneurysm with previous endovascular stent grafting Former smoker History of atrial fibrillation, maintained on warfarin and the PT/INR subtherapeutic History of CHF History of GI bleed Hyperlipidemia History of pneumonia History of stage III chronic kidney disease History of peripheral vascular disease History of benign prostatic hypertrophy Poor overall functional performance based on the above-mentioned multiple comorbidities Plan: The patient was seen and evaluated Medications and labs reviewed Continue the current treatment plan Feeling back to his baseline Discontinue IV Solu-Medrol Initiated a prednisone taper Titrate the FiO2 as tolerated Increase his activity as tolerated Cleared for discharge from the pulmonary standpoint I have personally seen and examined the patient, performed the documentation and the assessment and plan as written. Number of minutes spent on the visit: 10.
[2022-07-18 15:25] VITALS: PULSE 92
[2022-07-18] MEDS ORDERED: WARFARIN 2 MG TAB PO ONE (18:00)
[2022-07-19] MEDS ORDERED: predniSONE 20 MG TAB PO SCH (09:00)
== END 2022-07-18 16:07 | disposition home or self-care (01) | DRG 190 ==
LOC: EC 15:26 → 3SCARD 18:52
PROVIDERS: ADMIT Family Medicine; ATTEND Family Medicine
DX: J43.9 Emphysema, unspecified (principal); I50.23 Acute on chronic systolic (congestive) heart failure; J96.21 Acute and chronic respiratory failure with hypoxia; I13.0 Hypertensive heart and chronic kidney disease with heart failure and stage 1 through stage 4 chronic kidney disease, or unspecified chronic kidney disease; I42.8 Other cardiomyopathies; I48.19 Other persistent atrial fibrillation; Q23.1 Congenital insufficiency of aortic valve; I27.20 Pulmonary hypertension, unspecified; M41.50 Other secondary scoliosis, site unspecified; I08.3 Combined rheumatic disorders of mitral, aortic and tricuspid valves; N18.31 Chronic kidney disease, stage 3a; I73.9 Peripheral vascular disease, unspecified; E78.2 Mixed hyperlipidemia; N40.0 Benign prostatic hyperplasia without lower urinary tract symptoms; R00.0 Tachycardia, unspecified; I44.4 Left anterior fascicular block; F10.90 Alcohol use, unspecified, uncomplicated; Z20.822 Contact with and (suspected) exposure to COVID-19; Z96.89 Presence of other specified functional implants; Z99.81 Dependence on supplemental oxygen; Z95.3 Presence of xenogenic heart valve; Z87.891 Personal history of nicotine dependence; Z86.14 Personal history of Methicillin resistant Staphylococcus aureus infection; Z86.16 Personal history of COVID-19; Z86.79 Personal history of other diseases of the circulatory system; Z88.8 Allergy status to other drugs, medicaments and biological substances; Z91.041 Radiographic dye allergy status; Z91.048 Other nonmedicinal substance allergy status; Z79.899 Other long term (current) drug therapy; Z79.01 Long term (current) use of anticoagulants; Z87.01 Personal history of pneumonia (recurrent); Z79.52 Long term (current) use of systemic steroids
CPT/HCPCS: 36415; 71045; 71046; 80048; 80053; 83605; 83735; 84484; 85025; 85610; 85730; 87040; 87636; 93005; 93306; 94640; 94760; 96361; 96372; 96374; 96375; 96376; 99285

== ENCOUNTER 2022-08-30 15:47 | Emergency (ER) | payer MEDICARE, BC ==
[2022-08-30 15:56] VITALS: TEMP 97.4
--- NOTE | 2022-08-30 16:30 | ED ---
General Adult HPI - General Chief complaint: Urogenital Stated complaint: Urogenital Time Seen by Provider: 08/30/22 16:09 Source: patient, RN notes reviewed Mode of arrival: EMS Limitations: no limitations - History of Present Illness Initial comments: 82 year old male presents to the emergency department for blocked saez catheter. He reports that he believes it has been blocked since last night. He states that he has had this one in for about 3 weeks. He typically gets them changed monthly by [facility]. He reports some sediment in the urine. Denies blood in the urine. PMH includes COPD, CHF, afib. - Related Data Home Medications Medication Instructions Recorded Confirmed Cyanocobalamin [Vitamin B-12] 1,000 mcg PO DAILY 04/13/22 08/30/22 Furosemide [Lasix] 80 mg PO DAILY 04/13/22 08/30/22 Levalbuterol Tartrate 2 puff INHALATION RT-Q4H PRN 04/13/22 08/30/22 [Levalbuterol Tartrate 45 MCG Hfa] Sennosides/Docusate Sodium [Senna 1 tab PO HS 04/13/22 08/30/22 Plus 8.6-50 mg Tablet] Umeclidinium [place] [Incruse 1 puff INHALATION RT-DAILY 04/13/22 08/30/22 Ellipta] Acetaminophen Tab [Tylenol] 650 mg PO Q6H PRN 05/05/22 08/30/22 Fluticasone Propion/Salmeterol 1 puff INHALATION RT-BID 05/05/22 08/30/22 [[place]ela 100-50 Inhub] Sacubitril/Valsartan [Entresto 24 1 tab PO BID 05/05/22 08/30/22 mg-26 mg Tablet] Sertraline [Zoloft] 50 mg PO HS 05/05/22 08/30/22 LORazepam [Ativan] 0.5 - 1 mg PO QID 07/12/22 08/30/22 Warfarin [Coumadin] 1 mg PO SUTHFRSA@2100 07/12/22 08/30/22 Azithromycin [Zithromax] 250 mg PO DAILY 08/30/22 08/30/22 Ipratropium-Albuterol Nebulize 3 ml INHALATION RT-QID 08/30/22 08/30/22 [Duoneb 0.5 mg-3 mg/3 ml Soln] Metoprolol Tartrate [Lopressor] 12.5 mg PO BID 08/30/22 08/30/22 Tamsulosin [Flomax] 0.4 mg PO HS 08/30/22 08/30/22 Warfarin Sodium 4 mg PO MOWEFR@2100 08/30/22 08/30/22 Allergies Allergy/AdvReac Type Severity Reaction Status Date / Time empagliflozin Allergy Dyspnea Verified 08/30/22 17:36 [From Jardiance] iodine AdvReac Unknown Verified 08/30/22 17:36 Patches on chest Allergy Swelling, Uncoded 08/30/22 17:36 See Comment pain med (can't remember AdvReac Hallucinati Uncoded 08/30/22 17:36 name) ons Review of Systems ROS Statement: Those systems with pertinent positive or pertinent negative responses have been documented in the HPI. ROS Other: All systems not noted in ROS Statement are negative. Past Medical History Past Medical History: Atrial Fibrillation, Heart Failure, COPD, GI Bleed, Hyperlipidemia, Pneumonia, Renal Disease, Skin Disorder, Vascular Disorder Additional Past Medical History / Comment(s): GI bleed, gastritis, gastric ectasia, CKD stage III, past abdominal aortic aneurysm/had stent placed, varico sities, PVD, past shingellis and occasionally will have R flank nerve pain, BPH. Covid 09/2022 History of Any Multi-Drug Resistant Organisms: MRSA Date of last positivie culture/infection: 03/19/22 MDRO Source:: Urine Past Surgical History: Cardiac Valve Replacement, Cholecystectomy, Heart Catheterization Additional Past Surgical History / Comment(s): Stent placed for lower abd aortic aneurysym, mitral valve replacement/bicuspid repair, EGD with ablation, colonoscopy, excision L cheek lesion/mass and lesion from scalp/all benign, ZEPHER VALVE PLACED 2 YRS AGO AT [facility] Past Anesthesia/Blood Transfusion Reactions: No Reported Reaction Date of Last Stent Placement:: 2015 Past Psychological History: Anxiety Smoking Status: Former smoker Past Alcohol Use History: Occasional Past Drug Use History: None Reported - Past Family History Mother Family Medical History: Myocardial Infarction ([place]) Additional Family Medical History / Comment(s): at a young age. Father Family Medical History: Hypertension General Exam Limitations: no limitations General appearance: alert, in no apparent distress Head exam: Present: atraumatic, normocephalic, normal inspection Eye exam: Present: normal appearance ENT exam: Present: normal exam, mucous membranes moist Neck exam: Present: normal inspection. Absent: tenderness, meningismus, lymphadenopathy Respiratory exam: Present: wheezes (mild) Cardiovascular Exam: Present: regular rate, normal rhythm, normal heart sounds. Absent: systolic murmur, diastolic murmur, rubs, gallop, clicks GI/Abdominal exam: Present: distended (suprapubic distention resolved after Saez catheter replaced), normal bowel sounds Extremities exam: Present: normal inspection, full ROM, normal capillary refill. Absent: tenderness, pedal edema, joint swelling, calf tenderness Back exam: Present: normal inspection Neurological exam: Present: alert, oriented X3 Psychiatric exam: Present: normal affect, normal mood Skin exam: Present: warm, dry, intact, normal color. Absent: rash Course Vital Signs 08/30/22 08/30/22 08/30/22 15:51 15:52 16:00 Temperature 97.4 F L Pulse Rate 113 H Respiratory 22 Rate Blood Pressure 129/75 129/75 129/75 O2 Sat by Pulse 98 97 98 Oximetry 08/30/22 08/30/22 08/30/22 17:00 18:00 18:01 Temperature Pulse Rate 70 Respiratory 20 Rate Blood Pressure 124/72 113/63 O2 Sat by Pulse 98 Oximetry Medical Decision Making - Medical Decision Making Was pt. sent in by a medical professional or institution (TYSHAWN Perez, DESIGN ENG, urgent care, hospital, or custodial...) When possible be specific @ -No Did you speak to anyone other than the patient for history (EMS, parent, family, police, friend...)? What history was obtained from this source @ -No Did you review nursing and triage notes (agree or disagree)? Why? @ -I reviewed and agree with nursing and triage notes Were old charts reviewed (outside hosp., previous admission, EMS record, old EKG, old radiological studies, urgent care reports/EKG's, custodial records)? Report findings @ -No old charts were reviewed Differential Diagnosis (chest pain, altered mental status, abdominal pain women, abdominal pain men, vaginal bleeding, weakness, fever, dyspnea, syncope, headache, dizziness, GI bleed, back pain, seizure, CVA, palpatations, mental health, musculoskeletal)? @ -blocked saez catheter, UTI, EKG interpreted by me (3pts min.). @ -none X-rays interpreted by me (1pt min.). @ -None done CT interpreted by me (1pt min.). @ -None done U/S interpreted by me (1pt. min.). @ -None done What testing was considered but not performed or refused? (CT, X-rays, U/S, labs)? Why? @ -None What meds were considered but not given or refused? Why? @ -None Did you discuss the management of the patient with other professionals (professionals i.e. DrLambert, PA, DESIGN ENG, lab, RT, psych nurse, manager social responsibility, director of mobile marketing, teacher, rating officer, case management specialist)? Give summary @ -No Was smoking cessation discussed for >3mins.? @ -No Was critical care preformed (if so, how long)? @ -No Were there social determinants of health that impacted care today? How? (Homelessness, low income, unemployed, alcoholism, drug addiction, transport ation, low edu. Level, literacy, decrease access to med. care, prison, rehab)? @ -No Was there de-escalation of care discussed even if they declined (Discuss DNR or withdrawal of care, Hospice)? DNR status @ -No What co-morbidities impacted this encounter? (DM, HTN, Smoking, COPD, CAD, Cancer, CVA, ARF, Chemo, Hep., AIDS, mental health diagnosis, sleep apnea, morbid obesity)? @ -None Was patient admitted / discharged? Hospital course, mention meds given and route, prescriptions, significant lab abnormalities, going to OR and other pertinent info. @ -Discharged. Patient presented to the emergency department for blocked saez catheter x1 day. Saez catheter was replaced by nursing staff and urine was taken for UA. Good urine flow obtained after saez replaced. UA showed 24 white blood cells, positive leukocyte esterase, negative nitrites. Will send urine for culture. Patient stable at time of discharge. Case discussed with my attending, Dr. Diez Undiagnosed new problem with uncertain prognosis? @ -No Drug Therapy requiring intensive monitoring for toxicity (Heparin, Nitro, Insulin, Cardizem)? @ -No Were any procedures done? @ -No Diagnosis/symptom? @ -Blocked Urinary catheter Acute, or Chronic, or Acute on Chronic? @ -Acute Uncomplicated (without systemic symptoms) or Complicated (systemic symptoms)? @ -Uncomplicated Side effects of treatment? @ -No Exacerbation, Progression, or Severe Exacerbation? @ -No Poses a threat to life or bodily function? How? (Chest pain, [place], [place], pneumonia, PE, COPD, DKA, ARF, appy, cholecystitis, CVA, Diverticulitis, Homicidal, Suicidal, threat to staff... and all critical care pts) @ -No - Lab Data Lab Results 08/30/22 Range/Units 16:00 Urine Color Colorless Urine Appearance Clear (Clear) Urine pH 6.5 (5.0-8.0) Ur Specific [place] 1.006 (1.001-1.035) Urine Protein Negative (Negative) Urine Glucose (UA) 3+ H (Negative) Urine Ketones Negative (Negative) Urine Blood Small H (Negative) Urine Nitrite Negative (Negative) Urine Bilirubin Negative (Negative) Urine Urobilinogen <2.0 (<2.0) mg/dL Ur Leukocyte Esterase Large H (Negative) Urine RBC 4 (0-5) /hpf Urine WBC 24 H (0-5) /hpf Urine Mucus Rare H (None) /hpf Disposition Clinical Impression: Blocked urinary catheter Disposition: HOME SELF-CARE Condition: Stable Instructions (If sedation given, give patient instructions): Saez Catheter Placement and Care (ED) Additional Instructions: Please follow up with Dr. Bey next week as needed. Return to the emergency department for new or worsening symptoms. Is patient prescribed a controlled substance at d/c from ED?: No Referrals: Tan Bey Jr, DO [Primary Care Provider] - 1-2 days Time of Disposition: 18:40
[2022-08-30 18:01] VITALS: BP 113/63
[2022-08-30 18:02] VITALS: PULSE 70; RESP 20
[2022-08-30 18:17] LABS: Appearance,Urine Clear (Clear); Bilirubin,Urine Negative (Negative); Blood,Urine Small (Negative); Color,Urine Colorless; Glucose,Urine (UA) 3+ (Negative); Ketones,Urine Negative (Negative); Leukocyte Esterase,Urine Large (Negative); Mucus,Urine Rare /hpf; Nitrite,Urine Negative (Negative); PH, Urine 6.5 (5.0-8.0); Protein,Urine Negative (Negative); RBC,Urine 4 /hpf (0-5); Specific Gravity,Urine 1.006 (1.001-1.035); Urobilinogen,Urine <2.0 mg/dL (<2.0); WBC,Urine 24 /hpf (0-5)
== END 2022-08-30 19:59 | disposition home or self-care (01) ==
LOC: EC 15:47
DX: T83.091A Other mechanical complication of indwelling urethral catheter, initial encounter (principal); R06.2 Wheezing; I50.9 Heart failure, unspecified; J44.9 Chronic obstructive pulmonary disease, unspecified; N18.30 Chronic kidney disease, stage 3 unspecified; I48.91 Unspecified atrial fibrillation; F41.9 Anxiety disorder, unspecified; Z79.01 Long term (current) use of anticoagulants; Z79.51 Long term (current) use of inhaled steroids; Z79.899 Other long term (current) drug therapy; Z88.8 Allergy status to other drugs, medicaments and biological substances; Z91.09 Other allergy status, other than to drugs and biological substances; Z87.891 Personal history of nicotine dependence
CPT/HCPCS: 51702; 81001; 87086; 99284

== ENCOUNTER 2022-09-06 10:24 | Emergency (ER) | payer MEDICARE, BC ==
[2022-09-06 10:34] VITALS: TEMP 97.3
[2022-09-06] MEDS ORDERED: methylPREDNISolone SOD SUCCI 125 MG/2 ML VIAL IV STA (10:39)
[2022-09-06] MEDS ORDERED: IPRATROPIUM-ALBUTEROL 3 ML NEB INHALATION STA (10:39)
[2022-09-06] MEDS ORDERED: DILTIAZEM 125 MG in SODIUM CHLORIDE 0.9% 100 ML IV SCH (10:45)
[2022-09-06 11:05] LABS: INR 1.7 (<1.2); Partial Thromboplastin Time 29.5 sec (22.0-30.0); Prothrombin Time 16.6 sec (9.0-12.0)
--- NOTE | 2022-09-06 11:07 | XR ---
EXAMINATION TYPE: XR chest 2V DATE OF EXAM: 09/06/2022 10:56 AM COMPARISON: Chest radiographs from 07/17/2022 TECHNIQUE: XR chest 2V Frontal and lateral views of the chest. CLINICAL INDICATION:Male, 82 years old with history of dysrhythmia; FINDINGS: Patient is rotated which limits evaluation. Lungs/Pleura: Severe diffuse emphysematous changes with coarse interstitium in the lung bases redemon strated. There is no evidence of pleural effusion, focal consolidation, or pneumothorax. Pulmonary vascularity: Unremarkable. Heart/mediastinum: Cardiomediastinal silhouette is unremarkable. Atherosclerotic calcifications are seen in the aorta. Cardiac valve replacements. Musculoskeletal: No acute osseous pathology. Redemonstration of advanced compression type fracture of the mid thoracic spine at roughly T8 level with kyphosis. Midline sternotomy wires are noted and sta ble. IMPRESSION: Background COPD changes with chronic interstitial changes. No radiographic evidence of an acute proce ss.
[2022-09-06 11:08] VITALS: RESP 18
[2022-09-06 11:28] LABS: ALT 21 U/L (4-49); African American GFR (CKD) >90 (>60 ml/min/1.73 sqM); Anion Gap 9 mmol/L; Blood Urea Nitrogen 34 mg/dL (9-20); Calcium 8.6 mg/dL (8.4-10.2); Carbon Dioxide 31 mmol/L (22-30); Chloride 91 mmol/L (98-107); Glucose 130 mg/dL (74-99); Non-African American GFR(CKD) 78 (>60 ml/min/1.73 sqM); Sodium 131 mmol/L (137-145); Total Bilirubin 0.5 mg/dL (0.2-1.3)
[2022-09-06] MEDS ORDERED: SODIUM CHLORIDE 0.9% 500 ML 500 ML IV ONE (11:34)
[2022-09-06 11:40] LABS: Magnesium 2.2 mg/dL (1.6-2.3); Potassium 4.8 mmol/L (3.5-5.1); Total Protein 6.6 g/dL (6.3-8.2)
[2022-09-06 11:41] LABS: AST 43 U/L (17-59); Albumin 3.8 g/dL (3.5-5.0); Alkaline Phosphatase 45 U/L (38-126)
--- NOTE | 2022-09-06 11:50 | ED ---
Arrhythmia/Palpitations HPI - General Chief Complaint: Arrhythmia/Palpitations Stated Complaint: Palpitations Time Seen by Provider: 09/06/22 10:31 Source: patient, RN notes reviewed Mode of arrival: ambulatory Limitations: no limitations - History of Present Illness Initial Comments: 82-year-old male presents emergency from via EMS chief complaint of pa lpitations. Patient felt short of breath at home. Patient recently was in the hospital for urinary retention and Felder catheter placed patient states his been draining well. Patient states that he felt short of breath and felt like his heart was racing and which she has a history of A. fib upon EMS arrival he was in A. fib RVR. Patient is on Coumadin currently denies any chest pain, leg pain or leg swelling denies any back pain or pressure. - Related Data Home Medications Medication Instructions Recorded Confirmed Cyanocobalamin [Vitamin B-12] 1,000 mcg PO DAILY 04/13/22 08/30/22 Furosemide [Lasix] 80 mg PO DAILY 04/13/22 08/30/22 Levalbuterol Tartrate 2 puff INHALATION RT-Q4H PRN 04/13/22 08/30/22 [Levalbuterol Tartrate 45 MCG Hfa] Sennosides/Docusate Sodium [Senna 1 tab PO HS 04/13/22 08/30/22 Plus 8.6-50 mg Tablet] Umeclidinium Maurice [Incruse 1 puff INHALATION RT-DAILY 04/13/22 08/30/22 Ellipta] Acetaminophen Tab [Tylenol] 650 mg PO Q6H PRN 05/05/22 08/30/22 Fluticasone Propion/Salmeterol 1 puff INHALATION RT-BID 05/05/22 08/30/22 [Wixela 100-50 Inhub] Sacubitril/Valsartan [Entresto 24 1 tab PO BID 05/05/22 08/30/22 mg-26 mg Tablet] Sertraline [Zoloft] 50 mg PO HS 05/05/22 08/30/22 LORazepam [Ativan] 0.5 - 1 mg PO QID 07/12/22 08/30/22 Warfarin [Coumadin] 1 mg PO SUTHFRSA@2100 07/12/22 08/30/22 Azithromycin [Zithromax] 250 mg PO DAILY 08/30/22 08/30/22 Ipratropium-Albuterol Nebulize 3 ml INHALATION RT-QID 08/30/22 08/30/22 [Duoneb 0.5 mg-3 mg/3 ml Soln] Metoprolol Tartrate [Lopressor] 12.5 mg PO BID 08/30/22 08/30/22 Tamsulosin [Flomax] 0.4 mg PO HS 08/30/22 08/30/22 Warfarin Sodium 4 mg PO MOWEFR@2100 08/30/22 08/30/22 Previous Rx's Medication Instructions Recorded predniSONE 50 mg PO DAILY #5 tab 09/06/22 predniSONE 50 mg PO DAILY #5 tab 09/06/22 Allergies Allergy/AdvReac Type Severity Reaction Status Date / Time empagliflozin Allergy Dyspnea Verified 09/06/22 13:53 [From Jardiance] iodine AdvReac Unknown Verified 09/06/22 13:53 Patches on chest Allergy Swelling, Uncoded 09/06/22 10:34 See Comment pain med (can't remember AdvReac Hallucinati Uncoded 09/06/22 10:34 name) ons Review of Systems ROS Statement: Those systems with pertinent positive or pertinent negative responses have been documented in the HPI. ROS Other: All systems not noted in ROS Statement are negative. Past Medical History Past Medical History: Atrial Fibrillation, Heart Failure, COPD, GI Bleed, Hyperlipidemia, Pneumonia, Renal Disease, Skin Disorder, Vascular Disorder Additional Past Medical History / Comment(s): GI bleed, gastritis, gastric ectasia, CKD stage III, past abdominal aortic aneurysm/had stent placed, varicosities, PVD, past shingellis and occasionally will have R flank nerve pain, BPH. Covid 09/2022 History of Any Multi-Drug Resistant Organisms: MRSA Date of last positivie culture/infection: 03/19/22 MDRO Source:: Urine Past Surgical History: Cardiac Valve Replacement, Cholecystectomy, Heart Catheterization Additional Past Surgical History / Comment(s): Stent placed for lower abd aortic aneurysym, mitral valve replacement/bicuspid repair, EGD with ablation, colonoscopy, excision L cheek lesion/mass and lesion from scalp/all benign, ZEPHER VALVE PLACED 2 YRS AGO AT [facility] Past Anesthesia/Blood Transfusion Reactions: No Reported Reaction Date of Last Stent Placement:: 2015 Past Psychological History: Anxiety Smoking Status: Former smoker Past Alcohol Use History: Occasional Past Drug Use History: None Reported - Past Family History Mother Family Medical History: Myocardial Infarction ([place]) Additional Family Medical History / Comment(s): at a young age. Father Family Medical History: Hypertension General Exam Limitations: no limitations General appearance: alert, in no apparent distress Head exam: Present: atraumatic, normocephalic, normal inspection Eye exam: Present: normal appearance, PERRL, EOMI. Absent: scleral icterus, conjunctival injection, periorbital swelling ENT exam: Present: normal exam, normal oropharynx, mucous membranes moist Neck exam: Present: normal inspection, full ROM. Absent: tenderness, meningismus, lymphadenopathy Respiratory exam: Present: wheezes. Absent: normal lung sounds bilaterally, respiratory distress, rales, rhonchi, stridor Cardiovascular Exam: Present: tachycardia, irregular rhythm, normal heart sounds. Absent: normal rhythm, systolic murmur, diastolic murmur, rubs, gallop, clicks GI/Abdominal exam: Present: soft, normal bowel sounds. Absent: distended, tenderness, guarding, rebound, rigid Neurological exam: Present: alert, oriented X3 Course Vital Signs 09/06/22 09/06/22 09/06/22 10:26 10:54 11:05 Temperature 97.3 F L Pulse Rate 150 H 126 H 91 Respiratory 18 20 18 Rate Blood Pressure 103/64 92/72 O2 Sat by Pulse 98 98 Oximetry 09/06/22 09/06/22 11:12 12:03 Temperature Pulse Rate 123 H 84 Respiratory 18 18 Rate Blood Pressure 109/63 O2 Sat by Pulse 97 Oximetry EKG Findings - EKG Comments: EKG Findings:: EKG 10:33 A. fib with RVR rate of 124 QRS 126 QT/QTC 325/399. Repeat EKG at 11:45 sinus rhythm with rate of 87 [place] 156 QRS 137 QT/QTC 390/441 - EKG Results: EKG: interpreted by FELICITAS Medical Decision Making - Medical Decision Making Was pt. sent in by a medical professional or institution (, PA, UTILITY MECHANIC SUPERVISOR, urgent care, hospital, or senior care...) When possible be specific @ -No Did you speak to anyone other than the patient for history (EMS, parent, family, police, friend...)? What history was obtained from this source @ -N in EMS. Prehospital vitals, finding and treatment o Did you review nursing and triage notes (agree or disagree)? Why? @ -I reviewed and agree with nursing and triage notes Were old charts reviewed (outside hosp., previous admission, EMS record, old EKG, old radiological studies, urgent care reports/EKG's, senior care records)? Report findings @ -No old charts were reviewed Differential Diagnosis (chest pain, altered mental status, abdominal pain women, abdominal pain men, vaginal bleeding, weakness, fever, dyspnea, syncope, headache, dizziness, GI bleed, back pain, seizure, CVA, palpatations, mental health, musculoskeletal)? @ -Differential Dyspnea: Coronary syndrome, arrhythmia, tamponade, asthma, COPD, pulmonary embolism, pneumonia, pneumothorax, pulmonary effusion, anaphylaxis, diabetic ketoacidosis, flailed chest, pulmonary contusion, diaphragmatic rupture, anemia, neuromuscular, this is not meant to be an all-inclusive list. able EKG interpreted by me (3pts min.). @ -As above X-rays interpreted by me (1pt min.). @ -Chest x-ray shows chronic changes CT interpreted by me (1pt min.). @ -None done U/S interpreted by me (1pt. min.). @ -None done What testing was considered but not performed or refused? (CT, X-rays, U/S, labs)? Why? @ -None What meds were considered but not given or refused? Why? @ -None Did you discuss the management of the patient with other professionals (professionals i.e. , PA, UTILITY MECHANIC SUPERVISOR, lab, RT, psych nurse, social media campaign manager, promotions producer, teacher, chief marketing officer, community case manager)? Give summary @ -Case discussed with PCP regarding patient's current symptoms and complaints. Was smoking cessation discussed for >3mins.? @ -No Was critical care preformed (if so, how long)? @ -No Were there social determinants of health that impacted care today? How? (Homelessness, low income, unemployed, alcoholism, drug addiction, transpo rtation, low edu. Level, literacy, decrease access to med. care, residential, rehab)? @ -No Was there de-escalation of care discussed even if they declined (Discuss DNR or withdrawal of care, Hospice)? DNR status @ -No What co-morbidities impacted this encounter? (DM, HTN, Smoking, COPD, CAD, Cancer, CVA, ARF, Chemo, Hep., AIDS, mental health diagnosis, sleep apnea, morbid obesity)? @ -COPD, CAD, CHF, A. fib Was patient admitted / discharged? Hospital course, mention meds given and route, prescriptions, significant lab abnormalities, going to OR and other pertinent info. @ -Discharge patient was in A. fib RVR patient is anticoagulated. Patient's converted to normal sinus rhythm. Patient does have baseline shortness breath from COPD. Patient is discussed with PCP Dr. Rodriguez's recommendation to be discharged with follow-up in office patient will be continued on steroids, breathing treatments every 4 hours return for any worsening change in symptoms. Undiagnosed new problem with uncertain prognosis? @ -No Drug Therapy requiring intensive monitoring for toxicity (Heparin, Nitro, Insulin, Cardizem)? @ -No Were any procedures done? @ -No Diagnosis/symptom? @ -COPD, A. fib Acute, or Chronic, or Acute on Chronic? @ -Acute on chronic Uncomplicated (without systemic symptoms) or Complicated (systemic symptoms)? @ -, Complicated Side effects of treatment? @ -No Exacerbation, Progression, or Severe Exacerbation? @ -Exacerbation Poses a threat to life or bodily function? How? (Chest pain, [place], [place], pneumonia, PE, COPD, DKA, ARF, appy, cholecystitis, CVA, Diverticulitis, Homicidal, Suicidal, threat to staff... and all critical care pts) @ -Yes patient has COPD, severe - Lab Data Result diagrams: 09/06/22 10:42 09/06/22 10:42 Lab Results 09/06/22 09/06/22 09/06/22 Range/Units 10:42 10:42 10:42 WBC 9.4 (3.8-10.6) k/uL RBC 4.18 L (4.30-5.90) m/uL Hgb 11.6 L (13.0-17.5) gm/dL Hct 36.7 L (39.0-53.0) % MCV 87.7 D (80.0-100.0) fL MCH 27.7 (25.0-35.0) pg MCHC 31.6 (31.0-37.0) g/dL RDW 14.5 (11.5-15.5) % Plt Count 219 (150-450) k/uL MPV 8.0 Neutrophils % 87 % Lymphocytes % 6 % Monocytes % 4 % Eosinophils % 1 % Basophils % 0 % Neutrophils # 8.1 H (1.3-7.7) k/uL Lymphocytes # 0.6 L (1.0-4.8) k/uL Monocytes # 0.4 (0-1.0) k/uL Eosinophils # 0.1 (0-0.7) k/uL Basophils # 0.0 (0-0.2) k/uL Hypochromasia Moderate PT 16.6 H (9.0-12.0) sec INR 1.7 H (<1.2) APTT 29.5 (22.0-30.0) sec Sodium 131 L (137-145) mmol/L Potassium 4.8 (3.5-5.1) mmol/L Chloride 91 L (98-107) mmol/L Carbon Dioxide 31 H (22-30) mmol/L Anion Gap 9 mmol/L BUN 34 H (9-20) mg/dL Creatinine 0.92 (0.66-1.25) mg/dL Est GFR (CKD-EPI)AfAm >90 (>60 ml/min/1.73 sqM) Est GFR (CKD-EPI)NonAf 78 (>60 ml/min/1.73 sqM) Glucose 130 H (74-99) mg/dL Calcium 8.6 (8.4-10.2) mg/dL Magnesium 2.2 (1.6-2.3) mg/dL Total Bilirubin 0.5 (0.2-1.3) mg/dL AST 43 (17-59) U/L ALT 21 (4-49) U/L Alkaline Phosphatase 45 (38-126) U/L Troponin I (0.000-0.034) ng/mL NT-Pro-B Natriuret Pep pg/mL Total Protein 6.6 (6.3-8.2) g/dL Albumin 3.8 (3.5-5.0) g/dL 09/06/22 09/06/22 Range/Units 10:42 10:42 WBC (3.8-10.6) k/uL RBC (4.30-5.90) m/uL Hgb (13.0-17.5) gm/dL Hct (39.0-53.0) % MCV (80.0-100.0) fL MCH (25.0-35.0) pg MCHC (31.0-37.0) g/dL RDW (11.5-15.5) % Plt Count (150-450) k/uL MPV Neutrophils % % Lymphocytes % % Monocytes % % Eosinophils % % Basophils % % Neutrophils # (1.3-7.7) k/uL Lymphocytes # (1.0-4.8) k/uL Monocytes # (0-1.0) k/uL Eosinophils # (0-0.7) k/uL Basophils # (0-0.2) k/uL Hypochromasia PT (9.0-12.0) sec INR (<1.2) APTT (22.0-30.0) sec Sodium (137-145) mmol/L Potassium (3.5-5.1) mmol/L Chloride (98-107) mmol/L Carbon Dioxide (22-30) mmol/L Anion Gap mmol/L BUN (9-20) mg/dL Creatinine (0.66-1.25) mg/dL Est GFR (CKD-EPI)AfAm (>60 ml/min/1.73 sqM) Est GFR (CKD-EPI)NonAf (>60 ml/min/1.73 sqM) Glucose (74-99) mg/dL Calcium (8.4-10.2) mg/dL Magnesium (1.6-2.3) mg/dL Total Bilirubin (0.2-1.3) mg/dL AST (17-59) U/L ALT (4-49) U/L Alkaline Phosphatase (38-126) U/L Troponin I 0.023 (0.000-0.034) ng/mL NT-Pro-B Natriuret Pep 3850 pg/mL Total Protein (6.3-8.2) g/dL Albumin (3.5-5.0) g/dL Disposition Clinical Impression: Afib, COPD (chronic obstructive pulmonary disease) Disposition: HOME SELF-CARE Condition: Stable Instructions (If sedation given, give patient instructions): COPD (Chronic Obstructive Pulmonary Disease) (ED) Additional Instructions: Please return to the Emergency Department if symptoms worsen or any other concerns. Prescriptions: predniSONE 50 mg PO DAILY #5 tab predniSONE 50 mg PO DAILY #5 tab Is patient prescribed a controlled substance at d/c from ED?: No Referrals: Tan Bey Jr, DO [Primary Care Provider] - 1-2 days Time of Disposition: 13:05
[2022-09-06 11:52] LABS: Basophils % (A) 0 %; Eosinophils # (A) 0.1 k/uL (0-0.7); Eosinophils % (A) 1 %; HCT 36.7 % (39.0-53.0); HGB 11.6 gm/dL (13.0-17.5); Hypochromasia Moderate; Lymphocytes # (A) 0.6 k/uL (1.0-4.8); Lymphocytes % (A) 6 %; MCH 27.7 pg (25.0-35.0); MCHC 31.6 g/dL (31.0-37.0); Monocytes # (A) 0.4 k/uL (0-1.0); Monocytes % (A) 4 %; Neutrophils # (A) 8.1 k/uL (1.3-7.7); Neutrophils % (A) 87 %; Platelet Count 219 k/uL (150-450); RBC 4.18 m/uL (4.30-5.90); RDW 14.5 % (11.5-15.5); WBC 9.4 k/uL (3.8-10.6)
[2022-09-06 11:55] LABS: MCV 87.7 fL (80.0-100.0)
[2022-09-06 12:04] VITALS: BP 109/63; PULSE 84
== END 2022-09-06 19:03 | disposition home or self-care (01) ==
LOC: EC 10:24
DX: I48.91 Unspecified atrial fibrillation (principal); J44.9 Chronic obstructive pulmonary disease, unspecified; I50.9 Heart failure, unspecified; N18.30 Chronic kidney disease, stage 3 unspecified; F41.9 Anxiety disorder, unspecified; Z87.891 Personal history of nicotine dependence; Z79.01 Long term (current) use of anticoagulants; Z79.51 Long term (current) use of inhaled steroids; Z79.899 Other long term (current) drug therapy; Z86.16 Personal history of COVID-19; Z88.6 Allergy status to analgesic agent; Z91.041 Radiographic dye allergy status; Z88.8 Allergy status to other drugs, medicaments and biological substances
CPT/HCPCS: 36415; 94640; 93005; 83880; 80053; 83735; 84484; 85025; 85610; 85730; 71046; 99285; 96374; J2930

== ENCOUNTER 2022-10-11 23:59 | Emergency (ER) | payer MEDICARE, BC ==
[2022-10-12 00:02] VITALS: RESP 20; TEMP 98.4
--- NOTE | 2022-10-12 00:28 | ED ---
General Adult HPI - General Chief complaint: Urogenital Stated complaint: Urinary Retention Time Seen by Provider: 10/12/22 00:03 Source: patient, EMS, RN notes reviewed, old records reviewed Mode of arrival: EMS - History of Present Illness Initial comments: 82-year-old male history of chronic indwelling Felder catheter presents with urinary retention, suspect occluded Felder catheter. No fever. Minimal lower abdominal discomfort. No vomiting. - Related Data Home Medications Medication Instructions Recorded Confirmed Cyanocobalamin [Vitamin B-12] 1,000 mcg PO DAILY 04/13/22 08/30/22 Furosemide [Lasix] 80 mg PO DAILY 04/13/22 08/30/22 Levalbuterol Tartrate 2 puff INHALATION RT-Q4H PRN 04/13/22 08/30/22 [Levalbuterol Tartrate 45 MCG Hfa] Sennosides/Docusate Sodium [Senna 1 tab PO HS 04/13/22 08/30/22 Plus 8.6-50 mg Tablet] Umeclidinium [place] [Incruse 1 puff INHALATION RT-DAILY 04/13/22 08/30/22 Ellipta] Acetaminophen Tab [Tylenol] 650 mg PO Q6H PRN 05/05/22 08/30/22 Fluticasone Propion/Salmeterol 1 puff INHALATION RT-BID 05/05/22 08/30/22 [Wixela 100-50 Inhub] Sacubitril/Valsartan [Entresto 24 1 tab PO BID 05/05/22 08/30/22 mg-26 mg Tablet] Sertraline [Zoloft] 50 mg PO HS 05/05/22 08/30/22 LORazepam [Ativan] 0.5 - 1 mg PO QID 07/12/22 08/30/22 Warfarin [Coumadin] 1 mg PO SUTHFRSA@2100 07/12/22 08/30/22 Azithromycin [Zithromax] 250 mg PO DAILY 08/30/22 08/30/22 Ipratropium-Albuterol Nebulize 3 ml INHALATION RT-QID 08/30/22 08/30/22 [Duoneb 0.5 mg-3 mg/3 ml Soln] Metoprolol Tartrate [Lopressor] 12.5 mg PO BID 08/30/22 08/30/22 Tamsulosin [Flomax] 0.4 mg PO HS 08/30/22 08/30/22 Warfarin Sodium 4 mg PO MOWEFR@2100 08/30/22 08/30/22 Previous Rx's Medication Instructions Recorded predniSONE 50 mg PO DAILY #5 tab 09/06/22 predniSONE 50 mg PO DAILY #5 tab 09/06/22 Allergies Allergy/AdvReac Type Severity Reaction Status Date / Time empagliflozin Allergy Dyspnea Verified 10/12/22 00:03 [From Jardiance] iodine AdvReac Unknown Verified 10/12/22 00:03 Patches on chest Allergy Swelling, Uncoded 10/12/22 00:03 See Comment pain med (can't remember AdvReac Hallucinati Uncoded 10/12/22 00:03 name) ons Review of Systems ROS Statement: Those systems with pertinent positive or pertinent negative responses have been documented in the HPI. ROS Other: All systems not noted in ROS Statement are negative. Past Medical History Past Medical History: Atrial Fibrillation, Heart Failure, COPD, GI Bleed, Hyperlipidemia, Pneumonia, Renal Disease, Skin Disorder, Vascular Disorder Additional Past Medical History / Comment(s): GI bleed, gastritis, gastric ectasia, CKD stage III, past abdominal aortic aneurysm/had stent placed, varicosities, PVD, past shingellis and occasionally will have R flank nerve pain, BPH. Covid 09/2022 History of Any Multi-Drug Resistant Organisms: MRSA Date of last positivie culture/infection: 03/19/22 MDRO Source:: Urine Past Surgical History: Cardiac Valve Replacement, Cholecystectomy, Heart Catheterization Additional Past Surgical History / Comment(s): Stent placed for lower abd aortic aneurysym, mitral valve replacement/bicuspid repair, EGD with ablation, colonoscopy, excision L cheek lesion/mass and lesion from scalp/all benign, ZEPHER VALVE PLACED 2 YRS AGO AT [facility] Past Anesthesia/Blood Transfusion Reactions: No Reported Reaction Date of Last Stent Placement:: 2015 Past Psychological History: Anxiety Smoking Status: Former smoker Past Alcohol Use History: Occasional Past Drug Use History: None Reported - Past Family History Mother Family Medical History: Myocardial Infarction ([place]) Additional Family Medical History / Comment(s): at a young age. Father Family Medical History: Hypertension General Exam General appearance: alert, in no apparent distress Head exam: Present: atraumatic, normocephalic Eye exam: Present: normal appearance, PERRL ENT exam: Present: normal exam Neck exam: Present: normal inspection. Absent: tenderness, meningismus Respiratory exam: Present: wheezes, decreased breath sounds. Absent: respiratory distress Cardiovascular Exam: Present: regular rate, normal rhythm GI/Abdominal exam: Present: distended. Absent: tenderness, guarding Extremities exam: Present: normal inspection, normal capillary refill Neurological exam: Present: alert, oriented X3, CN II-XII intact. Absent: motor sensory deficit Psychiatric exam: Present: normal affect, normal mood Skin exam: Present: warm, dry, intact. Absent: cyanosis, diaphoretic Course Vital Signs 10/12/22 00:00 Temperature 98.4 F Pulse Rate 75 Respiratory 20 Rate Blood Pressure 137/71 O2 Sat by Pulse 99 Oximetry Medical Decision Making - Medical Decision Making Was pt. sent in by a medical professional or institution (, PA, IMPORT EXPORT MANAGER, urgent care, hospital, or long term...) When possible be specific @ -No Did you speak to anyone other than the patient for history (EMS, parent, family, police, friend...)? What history was obtained from this source @ -No Did you review nursing and triage notes (agree or disagree)? Why? @ -I reviewed and agree with nursing and triage notes Were old charts reviewed (outside hosp., previous admission, EMS record, old EKG, old radiological studies, urgent care reports/EKG's, long term records)? Report findings @ -No old charts were reviewed Differential Diagnosis (chest pain, altered mental status, abdominal pain women, abdominal pain men, vaginal bleeding, weakness, fever, dyspnea, syncope, headache, dizziness, GI bleed, back pain, seizure, CVA, palpatations, mental health, musculoskeletal)? @ -Occluded Felder catheter, urinary retention, UTI EKG interpreted by me (3pts min.). @ -As above X-rays interpreted by me (1pt min.). @ -None done CT interpreted by me (1pt min.). @ -None done U/S interpreted by me (1pt. min.). @ -Bladder scan shows 500 What testing was considered but not performed or refused? (CT, X-rays, U/S, labs)? Why? @ -None What meds were considered but not given or refused? Why? @ -None Did you discuss the management of the patient with other professionals (professionals i.e. , PA, IMPORT EXPORT MANAGER, lab, RT, psych nurse, social worker health services, assistant professor of religion, teacher, environmental health officer, case management coordinator)? Give summary @ -No Was smoking cessation discussed for >3mins.? @ -No Was critical care preformed (if so, how long)? @ -No Were there social determinants of health that impacted care today? How? (Homelessness, low income, unemployed, alcoholism, drug addiction, transportation, low edu. Level, literacy, decrease access to med. care, detention, rehab)? @ -No Was there de-escalation of care discussed even if they declined (Discuss DNR or withdrawal of care, Hospice)? DNR status @ -No What co-morbidities impacted this encounter? (DM, HTN, Smoking, COPD, CAD, Cancer, CVA, ARF, Chemo, Hep., AIDS, mental health diagnosis, sleep apnea, morbid obesity)? @ urinary retention, oxygen dependent COPD Was patient admitted / discharged? Hospital course, mention meds given and route, prescriptions, significant lab abnormalities, going to OR and other pertinent info. @ -82-year-old male with occluded Felder catheter, new catheter is placed, free flowing urine, patient feels 100% better. Stable for discharge. Undiagnosed new problem with uncertain prognosis? @ -No Drug Therapy requiring intensive monitoring for toxicity (Heparin, Nitro, Insulin, Cardizem)? @ -No Were any procedures done? @ -No Diagnosis/symptom? @ -[Urinary retention secondary to occluded Felder catheter Acute, or Chronic, or Acute on Chronic? @ Acute Uncomplicated (without systemic symptoms) or Complicated (systemic symptoms)? @ -default Side effects of treatment? @ -No Exacerbation, Progression, or Severe Exacerbation? @ -No Poses a threat to life or bodily function? How? (Chest pain, [place], [place], pneumonia, PE, COPD, DKA, ARF, appy, cholecystitis, CVA, Diverticulitis, Homicidal, Suicidal, threat to staff... and all critical care pts) @ -No - Lab Data Lab Results 10/12/22 Range/Units 00:21 Urine Color Light Yellow Urine Appearance Cloudy (Clear) Urine pH 7.5 (5.0-8.0) Ur Specific [place] 1.008 (1.001-1.035) Urine Protein Trace H (Negative) Urine Glucose (UA) 3+ H (Negative) Urine Ketones Negative (Negative) Urine Blood Large H (Negative) Urine Nitrite Positive (Negative) Urine Bilirubin Negative (Negative) Urine Urobilinogen <2.0 (<2.0) mg/dL Ur Leukocyte Esterase Large H (Negative) Urine RBC 41 H (0-5) /hpf Urine WBC >182 H (0-5) /hpf Ur Squamous Epith Cells <1 (0-4) /hpf Amorphous Sediment Occasional H (None) /hpf Urine Bacteria Moderate H (None) /hpf Hyaline Casts 6 H (0-2) /lpf Urine Mucus Rare H (None) /hpf Disposition Clinical Impression: Chronic indwelling Felder catheter, Acute retention of urine Disposition: HOME SELF-CARE Condition: Fair Instructions (If sedation given, give patient instructions): Urinary Retention in Men (ED), Felder Catheter Placement and Care (ED) Is patient prescribed a controlled substance at d/c from ED?: No Referrals: Tan Bey Jr, [Primary Care Provider] - 1-2 days Time of Disposition: 00:57
[2022-10-12 00:50] LABS: Amorphous Sediment,Urine Occasional /hpf; Appearance,Urine Cloudy (Clear); Bacteria,Urine Moderate /hpf; Bilirubin,Urine Negative (Negative); Blood,Urine Large (Negative); Color,Urine Light Yellow; Glucose,Urine (UA) 3+ (Negative); Hyaline Casts,Urine 6 /lpf (0-2); Ketones,Urine Negative (Negative); Leukocyte Esterase,Urine Large (Negative); Mucus,Urine Rare /hpf; Nitrite,Urine Positive (Negative); PH, Urine 7.5 (5.0-8.0); Protein,Urine Trace (Negative); RBC,Urine 41 /hpf (0-5); Specific Gravity,Urine 1.008 (1.001-1.035); Squamous Epithelial Cell,Urine <1 /hpf (0-4); Urobilinogen,Urine <2.0 mg/dL (<2.0); WBC,Urine >182 /hpf (0-5)
[2022-10-12] MEDS ORDERED: CEPHALEXIN 500 MG CAP PO STA (00:57)
[2022-10-12 01:06] VITALS: BP 100/65; PULSE 72
== END 2022-10-12 01:10 | disposition home or self-care (01) ==
LOC: EC 23:59
DX: T83.098A Other mechanical complication of other urinary catheter, initial encounter (principal); B96.4 Proteus (mirabilis) (morganii) as the cause of diseases classified elsewhere; I48.91 Unspecified atrial fibrillation; E78.5 Hyperlipidemia, unspecified; J44.9 Chronic obstructive pulmonary disease, unspecified; I50.9 Heart failure, unspecified; N18.30 Chronic kidney disease, stage 3 unspecified; F41.9 Anxiety disorder, unspecified; Z87.891 Personal history of nicotine dependence; Z88.8 Allergy status to other drugs, medicaments and biological substances; Z86.16 Personal history of COVID-19; Z79.51 Long term (current) use of inhaled steroids; Z79.01 Long term (current) use of anticoagulants; Z79.899 Other long term (current) drug therapy
CPT/HCPCS: 51702; 81001; 87077; 87086; 87186; 99284

== ENCOUNTER → 2022-11-01 | Outpatient (CLI) | payer MEDICARE, BC ==
--- NOTE | 2022-11-01 14:19 | CT ---
EXAMINATION TYPE: CT chest wo con CT DLP: 183.20 mGycm, Automated exposure control for dose reduction was used. DATE OF EXAM: 11/01/2022 12:34 PM COMPARISON: CT 12/26/2017. CLINICAL INDICATION:Male, 82 years old with history of R04.2 HEMOPTYSIS; PHH, HEMOPTYSIS. Pt O2 depen dent TECHNIQUE: Multiple axial images were obtained through the chest. Sagittal and coronal reformats were created for review. Contrast used: mL of (None if empty) Oral contrast used: (None if empty) FINDINGS: LUNGS/ PLEURA: Severe centrilobular emphysema changes most pronounced in lung apices. There is some s carring also present in the right upper lung. There is increased interstitial lung markings worse in the left lung base. There is leftward shift of the mediastinum likely secondary to postprocedural madina nge. Right-sided calcified granulomas. AIRWAY: A few secretions noted within the large airways. There is suspected postsurgical change the l eft lung. HEART: The heart is enlarged for size. Valvular repair changes. MEDIASTINUM: No gross evidence of adenopathy. VASCULATURE: No aortic aneurysm. Partially visualized abdominal stent graft. MUSCULOSKELETAL: Moderate disc degeneration changes are present throughout the thoracolumbar spine. S ternotomy wires are present. Complete compression deformity of the midthoracic vertebrae which is new from 2018. This involves the T7 vertebrae. SOFT TISSUES/LYMPH NODES: Unremarkable. LOWER NECK: No significant findings. UPPER ABDOMEN: Right renal cyst noted. IMPRESSION: 1. Severe emphysema predominantly in the lung apices. Postsurgical changes to the left upper lung wi thout evidence for mass. No adenopathy. Basilar interstitial lung disease worse on the left. Cardiome shady with moderate to severe coronary artery calcifications.
== END | disposition home or self-care (01) ==
LOC: RADCTMAIN 12:13
PROVIDERS: ATTEND Family Medicine
DX: J43.2 Centrilobular emphysema (principal); I25.10 Atherosclerotic heart disease of native coronary artery without angina pectoris; R04.2 Hemoptysis; I51.7 Cardiomegaly; Z79.01 Long term (current) use of anticoagulants
CPT/HCPCS: 71250

== ENCOUNTER 2022-11-22 10:09 | Emergency (ER) | payer MEDICARE, BC ==
[2022-11-22 11:55] LABS: Amorphous Sediment,Urine Rare /hpf; Appearance,Urine Cloudy (Clear); Bacteria,Urine Moderate /hpf; Bilirubin,Urine Negative (Negative); Blood,Urine Large (Negative); Color,Urine Colorless; Glucose,Urine (UA) 1+ (Negative); Hyaline Casts,Urine 1 /lpf (0-2); Ketones,Urine Negative (Negative); Leukocyte Esterase,Urine Large (Negative); Nitrite,Urine Negative (Negative); PH, Urine 7.5 (5.0-8.0); Protein,Urine Negative (Negative); RBC,Urine 17 /hpf (0-5); Specific Gravity,Urine 1.009 (1.001-1.035); Urobilinogen,Urine <2.0 mg/dL (<2.0); WBC,Urine 167 /hpf (0-5)
[2022-11-22] MEDS ORDERED: CEFDINIR 300 MG CAP PO STA (12:04)
--- NOTE | 2022-11-22 12:06 | ED ---
General Adult HPI - General Chief complaint: Urogenital Stated complaint: Blood in Cath Time Seen by Provider: 11/22/22 11:09 Source: patient Mode of arrival: ambulatory Limitations: no limitations - History of Present Illness Initial comments: Patient is a 82-year-old male who presents to the emergency department for blood in urine. Patient has chronic saez catheter states it was replaced yesterday at the [place]. Afterwards at home patient noticed no drainage. A home care nurse replaced the catheter. Patient states he woke up with blood in his urine this morning. States the catheter has been flowing the bag has been filling with urine. He denies any pain. No fever, chills, nausea, vomiting. - Related Data Home Medications Medication Instructions Recorded Confirmed Cyanocobalamin [Vitamin B-12] 1,000 mcg PO DAILY 04/13/22 08/30/22 Furosemide [Lasix] 80 mg PO DAILY 04/13/22 08/30/22 Levalbuterol Tartrate 2 puff INHALATION RT-Q4H PRN 04/13/22 08/30/22 [Levalbuterol Tartrate 45 MCG Hfa] Sennosides/Docusate Sodium [Senna 1 tab PO HS 04/13/22 08/30/22 Plus 8.6-50 mg Tablet] Umeclidinium Ferdinand [Incruse 1 puff INHALATION RT-DAILY 04/13/22 08/30/22 Ellipta] Acetaminophen Tab [Tylenol] 650 mg PO Q6H PRN 05/05/22 08/30/22 Fluticasone Propion/Salmeterol 1 puff INHALATION RT-BID 05/05/22 08/30/22 [Wixela 100-50 Inhub] Sacubitril/Valsartan [Entresto 24 1 tab PO BID 05/05/22 08/30/22 mg-26 mg Tablet] Sertraline [Zoloft] 50 mg PO HS 05/05/22 08/30/22 LORazepam [Ativan] 0.5 - 1 mg PO QID 07/12/22 08/30/22 Warfarin [Coumadin] 1 mg PO SUTHFRSA@2100 07/12/22 08/30/22 Azithromycin [Zithromax] 250 mg PO DAILY 08/30/22 08/30/22 Ipratropium-Albuterol Nebulize 3 ml INHALATION RT-QID 08/30/22 08/30/22 [Duoneb 0.5 mg-3 mg/3 ml Soln] Metoprolol Tartrate [Lopressor] 12.5 mg PO BID 08/30/22 08/30/22 Tamsulosin [Flomax] 0.4 mg PO HS 08/30/22 08/30/22 Warfarin Sodium 4 mg PO MOWEFR@2100 08/30/22 08/30/22 Previous Rx's Medication Instructions Recorded predniSONE 50 mg PO DAILY #5 tab 09/06/22 predniSONE 50 mg PO DAILY #5 tab 09/06/22 Cefdinir 300 mg PO Q12HR #14 cap 11/22/22 Allergies Allergy/AdvReac Type Severity Reaction Status Date / Time empagliflozin Allergy Dyspnea Verified 11/22/22 10:15 [From Jardiance] iodine AdvReac Unknown Verified 11/22/22 10:15 Patches on chest Allergy Swelling, Uncoded 11/22/22 10:15 See Comment pain med (can't remember AdvReac Hallucinati Uncoded 11/22/22 10:15 name) ons Review of Systems ROS Statement: Those systems with pertinent positive or pertinent negative responses have been documented in the HPI. ROS Other: All systems not noted in ROS Statement are negative. Past Medical History Past Medical History: Atrial Fibrillation, Heart Failure, COPD, GI Bleed, Hyperlipidemia, Pneumonia, Renal Disease, Skin Disorder, Vascular Disorder Additional Past Medical History / Comment(s): GI bleed, gastritis, gastric ectasia, CKD stage III, past abdominal aortic aneurysm/had stent placed, varicosities, PVD, past shingellis and occasionally will have R flank nerve pain, BPH. Covid 09/2022 History of Any Multi-Drug Resistant Organisms: MRSA Date of last positivie culture/infection: 03/19/22 MDRO Source:: Urine Past Surgical History: Cardiac Valve Replacement, Cholecystectomy, Heart Catheterization Additional Past Surgical History / Comment(s): Stent placed for lower abd aortic aneurysym, mitral valve replacement/bicuspid repair, EGD with ablation, colonoscopy, excision L cheek lesion/mass and lesion from scalp/all benign, ZEPHER VALVE PLACED 2 YRS AGO AT [facility] Past Anesthesia/Blood Transfusion Reactions: No Reported Reaction Date of Last Stent Placement:: 2015 Past Psychological History: Anxiety Smoking Status: Former smoker Past Alcohol Use History: Occasional Past Drug Use History: None Reported - Past Family History Mother Family Medical History: Myocardial Infarction ([place]) Additional Family Medical History / Comment(s): at a young age. Father Family Medical History: Hypertension General Exam Limitations: no limitations General appearance: alert Respiratory exam: Present: normal lung sounds bilaterally. Absent: respiratory distress, wheezes, rales, rhonchi, stridor Cardiovascular Exam: Present: regular rate, normal rhythm, normal heart sounds. Absent: systolic murmur, diastolic murmur, rubs, gallop, clicks GI/Abdominal exam: Present: soft, normal bowel sounds. Absent: distended, tenderness, guarding, rebound, rigid Neurological exam: Present: alert Psychiatric exam: Present: normal affect, normal mood Skin exam: Present: warm, dry, intact, normal color. Absent: rash Course Vital Signs 11/22/22 10:15 Temperature 97.6 F Pulse Rate 101 H Respiratory 16 Rate Blood Pressure 102/51 O2 Sat by Pulse 100 Oximetry Medical Decision Making - Medical Decision Making Was pt. sent in by a medical professional or institution (, PA, RE[employer]VING FIELD ASSEMBLER, urgent care, hospital, or halfway...) When possible be specific @ -No Did you speak to anyone other than the patient for history (EMS, parent, family, police, friend...)? What history was obtained from this source @ -No Did you review nursing and triage notes (agree or disagree)? Why? @ -I reviewed and agree with nursing and triage notes Were old charts reviewed (outside hosp., previous admission, EMS record, old EKG, old radiological studies, urgent care reports/EKG's, halfway records)? Report findings @ -No old charts were reviewed Differential Diagnosis (chest pain, altered mental status, abdominal pain women, abdominal pain men, vaginal bleeding, weakness, fever, dyspnea, syncope, headache, dizziness, GI bleed, back pain, seizure, CVA, palpatations, mental health)? @ -Differential Abdominal Pain Men: Appendicitis, cholecystitis, diverticulosis, ischemic bowel, pancreatitis, he patitis, UTI, gastroenteritis, AAA, incarcerated hernia, bowel obstruction, constipation, inflammatory bowel, hepatitis, peptic ulcer disease, splenic infarction, perforated viscus, testicular torsion, this is not meant to be an all-inclusive list EKG interpreted by me (3pts min.). @ -None X-rays interpreted by me (1pt min.). @ -None done CT interpreted by me (1pt min.). @ -None done U/S interpreted by me (1pt. min.). @ -None done What testing was considered but not performed or refused? (CT, X-rays, U/S, labs)? Why? @ -None What meds were considered but not given or refused? Why? @ -None Did you discuss the management of the patient with other professionals (professionals i.e. Dr., PA, REVOLVING FIELD ASSEMBLER, lab, RT, psych nurse, social media marketing analyst, mgmt analyst, teacher, revenue officer, watch case polisher)? Give summary @ -No Was smoking cessation discussed for >3mins.? @ -No Was critical care preformed (if so, how long)? @ -No Were there social determinants of health that impacted care today? How? (Homelessness, low income, unemployed, alcoholism, drug addiction, transportation, low edu. Level, literacy, decrease access to med. care, care home, rehab)? @ -No Was there de-escalation of care discussed even if they declined (Discuss DNR or withdrawal of care, Hospice)? DNR status @ -No What co-morbidities impacted this encounter? (DM, HTN, Smoking, COPD, CAD, Cancer, CVA, ARF, Chemo, Hep., AIDS, mental health diagnosis, sleep apnea, morbid obesity)? @ -chronic saez catheter Was patient admitted / discharged? Hospital course, mention meds given and route, prescriptions, significant lab abnormalities, going to OR and other pertinent info. @ -Patient presenting for hematuria. Saez catheter was changed yesterday therefore will not replace today. Urinalysis is concerning for infection. Previous urine culture reviewed patient will be treated with Cefdinir. Patient has no pain, vomiting, fever. He will be discharged with return parameters. Undiagnosed new problem with uncertain prognosis? @ -No Drug Therapy requiring intensive monitoring for toxicity (Heparin, Nitro, Insulin, Cardizem)? @ -No Were any procedures done? @ -No Diagnosis/symptom? @ -Urinary tract infection Acute, or Chronic, or Acute on Chronic? @ -Acute Uncomplicated (without systemic symptoms) or Complicated (systemic symptoms)? @ -Uncomplicated Side effects of treatment? @ -No Exacerbation, Progression, or Severe Exacerbation? @ -No Poses a threat to life or bodily function? How? (Chest pain, [place], [place], pneumonia, PE, COPD, DKA, ARF, appy, cholecystitis, CVA, Diverticulitis, Homicidal, Suicidal, threat to staff... and all critical care pts) @ -No Dr. Saxena is my attending - Lab Data Lab Results 11/22/22 Range/Units 11:23 Urine Color Colorless Urine Appearance Cloudy (Clear) Urine pH 7.5 (5.0-8.0) Ur Specific [place] 1.009 (1.001-1.035) Urine Protein Negative (Negative) Urine Glucose (UA) 1+ H (Negative) Urine Ketones Negative (Negative) Urine Blood Large H (Negative) Urine Nitrite Negative (Negative) Urine Bilirubin Negative (Negative) Urine Urobilinogen <2.0 (<2.0) mg/dL Ur Leukocyte Esterase Large H (Negative) Urine RBC 17 H (0-5) /hpf Urine WBC 167 H (0-5) /hpf Amorphous Sediment Rare H (None) /hpf Urine Bacteria Moderate H (None) /hpf Hyaline Casts 1 (0-2) /lpf Disposition Clinical Impression: UTI (urinary tract infection) Disposition: HOME SELF-CARE Condition: Good Instructions (If sedation given, give patient instructions): Urinary Tract Infection in Men (ED) Additional Instructions: Take medication as directed. Follow-up with primary care provider in one to 3 days. Return to the emergency department if you experience new, concerning, or worsening symptoms, including but not limited to abdominal pain, vomiting, fever. Prescriptions: Cefdinir 300 mg PO Q12HR #14 cap Is patient prescribed a controlled substance at d/c from ED?: No Referrals: Tan Bey Jr, [Primary Care Provider] - 1-2 days
[2022-11-22 12:54] VITALS: BP 101/62; PULSE 82; RESP 18; TEMP 98.1
== END 2022-11-22 12:50 | disposition home or self-care (01) ==
LOC: EC 10:09
DX: N39.0 Urinary tract infection, site not specified (principal); B96.89 Other specified bacterial agents as the cause of diseases classified elsewhere; I50.9 Heart failure, unspecified; J44.9 Chronic obstructive pulmonary disease, unspecified; N18.30 Chronic kidney disease, stage 3 unspecified; I48.91 Unspecified atrial fibrillation; N40.0 Benign prostatic hyperplasia without lower urinary tract symptoms; F41.9 Anxiety disorder, unspecified; E78.5 Hyperlipidemia, unspecified; Z79.51 Long term (current) use of inhaled steroids; Z79.01 Long term (current) use of anticoagulants; Z79.899 Other long term (current) drug therapy; Z88.8 Allergy status to other drugs, medicaments and biological substances; Z91.09 Other allergy status, other than to drugs and biological substances; Z95.2 Presence of prosthetic heart valve; Z90.49 Acquired absence of other specified parts of digestive tract; Z86.16 Personal history of COVID-19; Z87.891 Personal history of nicotine dependence
CPT/HCPCS: 81001; 87077; 87086; 87186; 99284

== ENCOUNTER → 2023-02-08 | Outpatient (CLI) | payer MEDICARE, BC ==
--- NOTE | 2023-02-08 12:01 | US ---
EXAMINATION TYPE: US prostate transrectal DATE OF EXAM: 02/08/2023 COMPARISON: NONE CLINICAL INDICATION: Male, 82 years old with history of N40.1 BENIGN PROSTATIC HYPERPLASIA; Patient i s on O2 and has saez cath. states he is here for testing to see if cath can get removed, called offi ce, no psa was drawn. This examination was performed using the transrectal probe. EXAM MEASUREMENTS: Gland Size: 3.2 x 4.3 x 3.0cm Volume: 21.6 Predicted PSA: 2.6 Actual PSA (if available): office did not draw PSA Heterogeneous PZ with no focal lesion seen at this time. IMPRESSION: No suspicious mass. Heterogenous peripheral zone noted. Correlate with serum PSA. Consider MRI prosta te protocol for more sensitive evaluation of the prostate. Predicted PSA = volume x 0.12 ng/ml Calculated Volume = 0.5236 x L x W x H
== END | disposition home or self-care (01) ==
LOC: RADUSWWP 09:55
PROVIDERS: ATTEND Urology
DX: N40.1 Benign prostatic hyperplasia with lower urinary tract symptoms (principal)
CPT/HCPCS: 76872

== ENCOUNTER 2023-05-01 14:52 | Inpatient (IN) | payer MEDICARE, BC ==
--- NOTE | 2023-05-01 15:30 | ED ---
SOB HPI - General Chief Complaint: Urogenital Stated Complaint: Catheter issues Time Seen by Provider: 05/01/23 14:54 Source: patient, RN notes reviewed, old records reviewed Mode of arrival: EMS Limitations: no limitations - History of Present Illness Initial Comments: This is a 3-year-old male who was sent to the ER after having his Felder removed today because he states he could not pee. Patient presents to the ER under the list circumstances but states he is confused admits to severe confusion here in the ER with inability to pee no significant shortness of breath. Patient's history is limited based on clinical condition MD Complaint: shortness of breath, chest pain, "asthma attack", anxiety -: days(s) Severity: severe Severity scale (1-10): 9 Improves With: nothing Worsens With: nothing Known History Of: COPD Context: recent URI, anxiety, recent illness Associated Symptoms: denies other symptoms - Related Data Home Medications Medication Instructions Recorded Confirmed Fluticasone Propion/Salmeterol 1 puff INHALATION RT-BID 05/05/22 05/01/23 [Wixela 100-50 Inhub] Sertraline [Zoloft] 50 mg PO DAILY 05/05/22 05/01/23 Warfarin [Coumadin] 1 mg PO SUTUTHSA@209907/12/22 05/01/23 Tamsulosin [Flomax] 0.4 mg PO DAILY 08/30/22 05/01/23 Warfarin Sodium 4 mg PO MOWEFR@209908/30/22 05/01/23 Bisoprolol [Zebeta] 5 mg PO DAILY 05/01/23 05/01/23 predniSONE 2.5 mg PO DAILY 05/01/23 05/01/23 Previous Rx's Medication Instructions Recorded Albuterol Nebulized [Ventolin 2.5 mg INHALATION RT-QID PRN ml 05/06/23 Nebulized] Furosemide [Lasix] 40 mg PO DAILY tab 05/06/23 INSULIN LISPRO (HumaLOG) [humaLOG] 0 unit SQ ACHS #10 ml 05/06/23 Ipratropium-Albuterol Nebulize 3 ml INHALATION RT-QID each 05/06/23 [Duoneb 0.5 mg-3 mg/3 ml Soln] LORazepam [Ativan] 0.5 mg PO TID PRN #9 tab 05/06/23 Sacubitril/Valsartan [Entresto 24 2 tab PO BID #0 05/06/23 mg-26 mg Tablet] Allergies Allergy/AdvReac Type Severity Reaction Status Date / Time empagliflozin Allergy Dyspnea Verified 05/01/23 19:25 [From Jardiance] iodine AdvReac Unknown Verified 05/01/23 19:25 Patches on chest Allergy Swelling, Uncoded 05/01/23 19:25 See Comment pain med (can't remember AdvReac Hallucinati Uncoded 05/01/23 19:25 name) ons Review of Systems ROS Statement: Those systems with pertinent positive or pertinent negative responses have been documented in the HPI. ROS Other: All systems not noted in ROS Statement are negative. Past Medical History Past Medical History: Atrial Fibrillation, Heart Failure, COPD, GI Bleed, Hyperlipidemia, Pneumonia, Renal Disease, Skin Disorder, Vascular Disorder Additional Past Medical History / Comment(s): GI bleed, gastritis, gastric ectasia, CKD stage III, past abdominal aortic aneurysm/had stent placed, varicosities, PVD, past shingellis and occasionally will have R flank nerve pain, BPH. Covid 09/2022 History of Any Multi-Drug Resistant Organisms: MRSA Date of last positivie culture/infection: 03/19/22 MDRO Source:: Urine Past Surgical History: Cardiac Valve Replacement, Cholecystectomy, Heart Cat heterization Additional Past Surgical History / Comment(s): Stent placed for lower abd aortic aneurysym, mitral valve replacement/bicuspid repair, EGD with ablation, colonoscopy, excision L cheek lesion/mass and lesion from scalp/all benign, ZEPHER VALVE PLACED 2 YRS AGO AT [facility] Past Anesthesia/Blood Transfusion Reactions: No Reported Reaction Date of Last Stent Placement:: 2015 Past Psychological History: Anxiety Smoking Status: Former smoker Past Alcohol Use History: Occasional Past Drug Use History: None Reported - Past Family History Mother Family Medical History: Myocardial Infarction ([place]) Additional Family Medical History / Comment(s): at a young age. Father Family Medical History: Hypertension General Exam Limitations: altered mental status, physical limitation General appearance: alert, in no apparent distress, anxious, lethargic, in distress Head exam: Present: atraumatic, normocephalic, normal inspection Eye exam: Present: normal appearance, PERRL, EOMI. Absent: scleral icterus, conjunctival injection, periorbital swelling ENT exam: Present: normal exam, mucous membranes moist Neck exam: Present: normal inspection. Absent: tenderness, meningismus, lymphadenopathy Respiratory exam: Present: respiratory distress, wheezes, chest wall tenderness, accessory muscle use, decreased breath sounds, prolonged expiratory. Absent: rales, rhonchi, stridor Cardiovascular Exam: Present: regular rate, normal rhythm, normal heart sounds. Absent: systolic murmur, diastolic murmur, rubs, gallop, clicks GI/Abdominal exam: Present: soft, normal bowel sounds. Absent: distended, tenderness, guarding, rebound, rigid Extremities exam: Present: normal inspection, full ROM, normal capillary refill. Absent: tenderness, pedal edema, joint swelling, calf tenderness Back exam: Present: normal inspection Neurological exam: Present: alert, oriented X3, CN II-XII intact Psychiatric exam: Present: normal affect, normal mood Skin exam: Present: warm, dry, intact, normal color. Absent: rash Course Vital Signs 05/01/23 05/01/23 05/01/23 14:57 16:33 16:39 Temperature 97.9 F 97.6 F Pulse Rate 82 72 78 Pulse Rate [ Pulse Oximetery ] Respiratory 38 H 20 Rate Blood Pressure 128/75 105/64 Blood Pressure [Left Arm Supine] O2 Sat by Pulse 99 100 Oximetry 05/01/23 05/01/23 05/01/23 16:52 17:13 17:41 Temperature 97.6 F 97.5 F L Pulse Rate 81 66 Pulse Rate [ 80 Pulse Oximetery ] Respiratory 48 H 46 H Rate Blood Pressure 107/63 Blood Pressure 110/60 [Left Arm Supine] O2 Sat by Pulse 99 Oximetry 05/01/23 05/01/23 05/01/23 18:00 18:11 18:27 Temperature 97.4 F L Pulse Rate 78 80 90 Pulse Rate [ Pulse Oximetery ] Respiratory 38 H Rate Blood Pressure 116/67 Blood Pressure [Left Arm Supine] O2 Sat by Pulse 100 Oximetry 05/01/23 05/01/23 19:04 19:30 Temperature Pulse Rate 86 78 Pulse Rate [ Pulse Oximetery ] Respiratory 38 H 30 H Rate Blood Pressure 95/55 93/60 Blood Pressure [Left Arm Supine] O2 Sat by Pulse 92 L 99 Oximetry - Reevaluation(s) Reevaluation #1: 05/01/23 17:17 Medical records reviewed Reevaluation #2: 05/01/23 17:17 Patient still remains significantly short of breath and confused Reevaluation #3: 05/01/23 17:17 Patient informed of results and questions answered Reevaluation #4: Was pt. sent in by a medical professional or institution (, [facility], [employer], urgent care, hospital, or skilled nursing...) When possible be specific @ -no Did you speak to anyone other than the patient for history (EMS, parent, family, police, friend...)? What history was obtained from this source @ -no Did you review nursing and triage notes (agree or disagree)? Why? @ -agree Are old charts reviewed (outside hosp., previous admission, EMS record, old EKG, old radiological studies, urgent care reports/EKG's, skilled nursing records)? Report findings @ -yes Differential Diagnosis (chest pain, altered mental status, abdominal pain women, abdominal pain men, vaginal bleeding, weakness, fever, dyspnea, syncope, headache, dizziness, GI bleed, back pain, seizure, CVA, palpatations, mental health, musculoskeletal)? @ -prior EKG interpreted by me (3pts min.). @ -yes X-rays interpreted by me (1pt min.). @ -yes negative for acute disease CT interpreted by me (1pt min.). @ -no U/S interpreted by me (1pt. min.). @ -no What testing was considered but not performed or refused? (CT, X-rays, U/S, labs)? Why? @ -none What meds were considered but not given or refused? Why? @ -none Did you discuss the management of the patient with other professionals (professionals i.e. , [employer], [employer]ER, lab, RT, psych nurse, secondary social studies teacher, conditioning coach, teacher, peace officer, case monitor)? Give summary @ -no Was smoking cessation discussed for >3mins.? @ -no Was critical care preformed (if so, how long)? @ -no Were there social determinants of health that impacted care today? How? (Homelessness, low income, unemployed, alcoholism, drug addiction, transportation, low edu. Level, literacy, decrease access to med. care, intermediate, rehab)? @ -none Was there de-escalation of care discussed even if they declined (Discuss DNR or withdrawal of care, Hospice)? DNR status @ -no What co-morbidities impacted this encounter? (DM, HTN, Smoking, COPD, CAD, Cancer, CVA, ARF, Chemo, Hep., AIDS, mental health diagnosis, sleep apnea, morbid obesity)? @ -none Was patient admitted / discharged? Hospital course, mention meds given and route, prescriptions, significant lab abnormalities, going to OR and other pertinent info. @ - 83 male to the ER for evaluation patient presents today for evaluation regards to shortness of breath weakness and difficulty with urination and severe hyponatremia. Patient admitted for breathing treatments and support in regards to COPD and hypoxia with treatment of underlying hyponatremia and diagnosing of cause Admitted Undiagnosed new problem with uncertain prognosis? @ -no Drug Therapy requiring intensive monitoring for toxicity (Heparin, Nitro, Insulin, Cardizem)? @ -no Were any procedures done? @ -no Diagnosis/symptom? @ -COPD with hypoxia and hyponatremia Acute, or Chronic, or Acute on Chronic? @ -Acute Uncomplicated (without systemic symptoms) or Complicated (systemic symptoms)? @ -Complicated Side effects of treatment? @ -no Exacerbation, Progression, or Severe Exacerbation? @ -exacerbation Poses a threat to life or bodily function? How? (Chest pain, [place], [place], pneumonia, PE, COPD, DKA, ARF, appy, cholecystitis, CVA, Diverticulitis, Homicidal, Suicidal, threat to staff... and all critical care pts) @ -yes with severe electrolyte derangement Reevaluation #5: 05/01/23 17:17 Differential Dyspnea: Coronary syndrome, arrhythmia, tamponade, asthma, COPD, pulmonary embolism, pneumonia, pneumothorax, pulmonary effusion, anaphylaxis, diabetic ketoacidosis, flailed chest, pulmonary contusion, diaphragmatic rupture, anemia, neuromuscular, this is not meant to be an all-inclusive list. Differential Altered Mental Status: Hypoglycemia, DKA, hypercapnia, ETOH, overdose, CO poisoning, trauma, myxedema coma, HTN encephalopathy, infection, encephalitis, psychosis, intercranial hemorrhage, hepatic encephalopathy, meningitis, CVA, this is not meant to be an all-inclusive list - Consultations Consultation #1: spoke w Dr Rodriguez re admission he is agreeable Medical Decision Making - Medical Decision Making 83 male to the ER for evaluation patient presents today for evaluation regards to shortness of breath weakness and difficulty with urination and severe hyponat remia. Patient admitted for breathing treatments and support in regards to COPD and hypoxia with treatment of underlying hyponatremia and diagnosing of cause - Lab Data Result diagrams: 05/06/23 04:56 05/06/23 04:56 Lab Results 05/01/23 05/01/23 05/01/23 Range/Units 15:34 15:34 15:34 WBC 8.9 (3.8-10.6) k/uL RBC 3.29 L (4.30-5.90) m/uL Hgb 9.8 L (13.0-17.5) gm/dL Hct 29.9 L (39.0-53.0) % MCV 90.9 (80.0-100.0) fL MCH 29.9 (25.0-35.0) pg MCHC 33.0 (31.0-37.0) g/dL RDW 14.0 (11.5-15.5) % Plt Count 269 (150-450) k/uL MPV 7.5 Neutrophils % 80 % Lymphocytes % 9 % Monocytes % 7 % Eosinophils % 1 % Basophils % 0 % Neutrophils # 7.2 (1.3-7.7) k/uL Lymphocytes # 0.8 L (1.0-4.8) k/uL Monocytes # 0.6 (0-1.0) k/uL Eosinophils # 0.1 (0-0.7) k/uL Basophils # 0.0 (0-0.2) k/uL PT 17.3 H (10.0-12.5) sec INR 1.7 H (<1.2) APTT 34.6 H (22.0-30.0) sec Sodium 108 L* (137-145) mmol/L Potassium 4.9 (3.5-5.1) mmol/L Chloride 72 L* (98-107) mmol/L Carbon Dioxide 27 (22-30) mmol/L Anion Gap 9 mmol/L BUN 43 H (9-20) mg/dL Creatinine 1.35 H (0.66-1.25) mg/dL Est GFR (CKD-EPI)AfAm 56 (>60 ml/min/1.73 sqM) Est GFR (CKD-EPI)NonAf 49 (>60 ml/min/1.73 sqM) Glucose 106 H (74-99) mg/dL Plasma Lactic Acid Jonas (0.7-2.0) mmol/L Calcium 9.1 (8.4-10.2) mg/dL Phosphorus 3.3 (2.5-4.5) mg/dL Magnesium 1.6 (1.6-2.3) mg/dL Total Bilirubin 0.8 (0.2-1.3) mg/dL AST 43 (17-59) U/L ALT 19 (4-49) U/L Alkaline Phosphatase 46 (38-126) U/L Troponin I (0.000-0.034) ng/mL NT-Pro-B Natriuret Pep 90224 pg/mL Total Protein 6.3 (6.3-8.2) g/dL Albumin 3.9 (3.5-5.0) g/dL 05/01/23 05/01/23 Range/Units 15:34 15:34 WBC (3.8-10.6) k/uL RBC (4.30-5.90) m/uL Hgb (13.0-17.5) gm/dL Hct (39.0-53.0) % MCV (80.0-100.0) fL MCH (25.0-35.0) pg MCHC (31.0-37.0) g/dL RDW (11.5-15.5) % Plt Count (150-450) k/uL MPV Neutrophils % % Lymphocytes % % Monocytes % % Eosinophils % % Basophils % % Neutrophils # (1.3-7.7) k/uL Lymphocytes # (1.0-4.8) k/uL Monocytes # (0-1.0) k/uL Eosinophils # (0-0.7) k/uL Basophils # (0-0.2) k/uL PT (10.0-12.5) sec INR (<1.2) APTT (22.0-30.0) sec Sodium (137-145) mmol/L Potassium (3.5-5.1) mmol/L Chloride (98-107) mmol/L Carbon Dioxide (22-30) mmol/L Anion Gap mmol/L BUN (9-20) mg/dL Creatinine (0.66-1.25) mg/dL Est GFR (CKD-EPI)AfAm (>60 ml/min/1.73 sqM) Est GFR (CKD-EPI)NonAf (>60 ml/min/1.73 sqM) Glucose (74-99) mg/dL Plasma Lactic Acid Jonas 1.8 (0.7-2.0) mmol/L Calcium (8.4-10.2) mg/dL Phosphorus (2.5-4.5) mg/dL Magnesium (1.6-2.3) mg/dL Total Bilirubin (0.2-1.3) mg/dL AST (17-59) U/L ALT (4-49) U/L Alkaline Phosphatase (38-126) U/L Troponin I 0.988 H* (0.000-0.034) ng/mL NT-Pro-B Natriuret Pep pg/mL Total Protein (6.3-8.2) g/dL Albumin (3.5-5.0) g/dL - EKG Data -: EKG Interpreted by Me (EKG is A-fib 78 QRS 142 QTc 409) - Radiology Data Radiology results: report reviewed (Chest x-ray shows pneumonitis), image reviewed Critical Care Time Critical Care Time: Yes Total Critical Care Time: 31 Disposition Clinical Impression: Weakness, COPD (chronic obstructive pulmonary disease), Congestive heart failure, Paroxysmal atrial fibrillation, Hyponatremia Disposition: HOME SELF-CARE Condition: Stable Is patient prescribed a controlled substance at d/c from ED?: No Time of Disposition: 16:35
[2023-05-01 16:18] LABS: Basophils % (A) 0 %; Eosinophils # (A) 0.1 k/uL (0-0.7); Eosinophils % (A) 1 %; HCT 29.9 % (39.0-53.0); HGB 9.8 gm/dL (13.0-17.5); Lymphocytes # (A) 0.8 k/uL (1.0-4.8); Lymphocytes % (A) 9 %; MCH 29.9 pg (25.0-35.0); MCV 90.9 fL (80.0-100.0); Mean Platelet Volume 7.5; Monocytes # (A) 0.6 k/uL (0-1.0); Monocytes % (A) 7 %; Neutrophils # (A) 7.2 k/uL (1.3-7.7); Neutrophils % (A) 80 %; Platelet Count 269 k/uL (150-450); RBC 3.29 m/uL (4.30-5.90); WBC 8.9 k/uL (3.8-10.6)
[2023-05-01 16:27] LABS: INR 1.7 (<1.2); Partial Thromboplastin Time 34.6 sec (22.0-30.0); Prothrombin Time 17.3 sec (10.0-12.5)
[2023-05-01 16:30] LABS: ALT 19 U/L (4-49); AST 43 U/L (17-59); African American GFR (CKD) 56 (>60 ml/min/1.73 sqM); Albumin 3.9 g/dL (3.5-5.0); Alkaline Phosphatase 46 U/L (38-126); Anion Gap 9 mmol/L; Blood Urea Nitrogen 43 mg/dL (9-20); Calcium 9.1 mg/dL (8.4-10.2); Carbon Dioxide 27 mmol/L (22-30); Glucose 106 mg/dL (74-99); Magnesium 1.6 mg/dL (1.6-2.3); Non-African American GFR(CKD) 49 (>60 ml/min/1.73 sqM); Phosphorus 3.3 mg/dL (2.5-4.5); Potassium 4.9 mmol/L (3.5-5.1); Total Bilirubin 0.8 mg/dL (0.2-1.3); Total Protein 6.3 g/dL (6.3-8.2)
[2023-05-01] MEDS: SODIUM CHLORIDE 0.9% 1,000 ML IV STA (16:34)
[2023-05-01] MEDS: IPRATROPIUM-ALBUTEROL 3 ML NEB INHALATION STA ×2 (16:34→17:56)
--- NOTE | 2023-05-01 16:36 | XR ---
EXAMINATION TYPE: XR chest 1V portable DATE OF EXAM: 05/01/2023 Comparison: 09/06/2022 Clinical History: 83-year-old male sob Findings: Leftward patient rotation ultrasound and normal cardiac mediastinal contours. There are median sterno dean wires with prosthetic aortic valve and annuloplasty ring. Artery limits of normal in size. Hyper inflation with bullous emphysema in the upper lungs. Slight worsening patchy bibasilar opacities. Pos sible trace effusions now. Impression: COPD with bullous emphysema and worsening bibasilar opacities and possible trace effusions. Consider infectious or aspiration pneumonitis versus atypical pulmonary edema.
[2023-05-01 16:38] LABS: NT-Pro-B-Type Natriuretic Pept 11500 pg/mL
[2023-05-01] MEDS ORDERED: ONDANSETRON 4 MG/2 ML VIAL IVP PRN ×2 (16:40→17:03)
[2023-05-01] MEDS ORDERED: MORPHINE SULFATE 4 MG/ML SYRINGE IV PRN ×2 (16:40→17:03)
[2023-05-01] MEDS ORDERED: NALOXONE 0.4 MG/ML 1 ML VIAL IV PRN ×3 (16:40→17:14)
[2023-05-01] MEDS: SODIUM CHLORIDE 0.9% 1,000 ML IV SCH (16:44)
[2023-05-01 17:09] LABS: Chloride 72 mmol/L (98-107); Sodium 108 mmol/L (137-145)
[2023-05-01] MEDS: AZITHROMYCIN 500 MG in SODIUM CHLORIDE 0.9% 250 ML IVPB STA (18:07)
[2023-05-01 18:21] LABS: Creatine Kinase 73 U/L (55-170)
[2023-05-01 18:28] LABS: Appearance,Urine Cloudy (Clear); Bacteria,Urine Occasional /hpf; Bilirubin,Urine Negative (Negative); Blood,Urine Moderate (Negative); Color,Urine Light Yellow; Glucose,Urine (UA) 2+ (Negative); Ketones,Urine Negative (Negative); Leukocyte Esterase,Urine Large (Negative); Nitrite,Urine Negative (Negative); PH, Urine 5.5 (5.0-8.0); Protein,Urine Trace (Negative); RBC,Urine 4 /hpf (0-5); Specific Gravity,Urine 1.007 (1.001-1.035); Urobilinogen,Urine <2.0 mg/dL (<2.0); WBC,Urine 37 /hpf (0-5)
[2023-05-01 19:32] LABS: Sodium 108 mmol/L (137-145)
[2023-05-01 20:06] LABS: Glucose,Whole Blood 112 mg/dL (70-110)
[2023-05-01] MEDS: SODIUM CHLORIDE 3%(HYPERTONIC) 500 ML IV ONE (20:41)
--- NOTE | 2023-05-01 21:09 | P.CNPUL ---
History of Present Illness Consult date: 05/01/23 Chief complaint: Altered mentation, confusion, hyponatremia History of present illness: This is a 83-year-old male patient with multiple medical problems and comorbidities. The patient came into the emergency department because of diminished level of consciousness and some confusions and the patient was found to be profoundly hyponatremic and subsequently the patient was moved to the intensive care for management of hyponatremia. His sodium level was 108 and the chloride was 72. He had a BUN of 43 with a creatinine of 1.35 knowing that the patient has a normal baseline creatinine of 0.9 from 09/06/2022. Note that the patient has multiple medical problems and comorbidities. The patient was given a Felder catheter for obstructive uropathy and BPH. However, he was unable to urinate. He came into the emergency department and Felder catheter was essentially removed. In the emergency, he was found to be confused. He denies having any shortness of breath. He had trace edema lower extremities bilaterally. The Felder catheter was reinserted and the patient was able to produce urine output and the patient has been making urine for now. UA was checked and the patient was found to have elevated white cell count of 37 with a +2 glucose and a moderate amount of blood and 4 WBCs. His initial troponin was at 0.98. CPK was 73. 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 The patient is breathing comfortably and the patient is currently at 4 L of oxygen by nasal cannula with a pulse ox of 99%. His most recent blood pressure is 97/57. In terms of his previous medical problems and comorbidities, they are quite extensive. The patient has advanced COPD and he has been oxygen dependent somewhere between 3 and 4 L of oxygen by nasal cannula. He also has chronic systolic heart failure with an ejection fraction of 25 to 30% and he has undergone previous mitral valve replacement at [facility] back in 2015 and repair of a bicuspid aortic valve. He also has an abdominal aortic aneurysm for which she has undergone endovascular static grafting. He has chronic A-fib maintained on anticoagulation with warfarin and he has h hyperlipidemia and stage III chronic kidney disease although most recent creatinine based on our records has been within normal limits. He has BPH, peripheral vascular disease in addition. Review of Systems ROS unobtainable: due to mental status Past Medical History Past Medical History: Atrial Fibrillation, Heart Failure, COPD, GI Bleed, Hyperlipidemia, Pneumonia, Renal Disease, Skin Disorder, Vascular Disorder Additional Past Medical History / Comment(s): GI bleed, gastritis, gastric ectasia, CKD stage III, past abdominal aortic aneurysm/had stent placed, varicosities, PVD, past shingellis and occasionally will have R flank nerve pain, BPH. Covid 09/2022 History of Any Multi-Drug Resistant Organisms: MRSA Date of last positivie culture/infection: 03/19/22 MDRO Source:: Urine Past Surgical History: Cardiac Valve Replacement, Cholecystectomy, Heart Catheterization Additional Past Surgical History / Comment(s): Stent placed for lower abd aortic aneurysym, mitral valve replacement/bicuspid repair, EGD with ablation, colonoscopy, excision L cheek lesion/mass and lesion from scalp/all benign, ZEPHER VALVE PLACED 2 YRS AGO AT [facility] Past Anesthesia/Blood Transfusion Reactions: No Reported Reaction Date of Last Stent Placement:: 2015 Past Psychological History: Anxiety Smoking Status: Former smoker Past Alcohol Use History: Occasional Past Drug Use History: None Reported - Past Family History Mother Family Medical History: Myocardial Infarction ([place]) Additional Family Medical History / Comment(s): at a young age. Father Family Medical History: Hypertension Medications and Allergies Home Medications Medication Instructions Recorded Confirmed Type Fluticasone Propion/Salmeterol 1 puff INHALATION RT-BID 05/05/22 05/01/23 History [Wixela 100-50 Inhub] Sacubitril/Valsartan [Entresto 24 2 tab PO BID 05/05/22 05/01/23 History mg-26 mg Tablet] Sertraline [Zoloft] 50 mg PO DAILY 05/05/22 05/01/23 History Warfarin [Coumadin] 1 mg PO SUTHFRSA@209907/12/22 05/01/23 History Ipratropium-Albuterol Nebulize 3 ml INHALATION RT-QID PRN 08/30/22 05/01/23 History [Duoneb 0.5 mg-3 mg/3 ml Soln] Tamsulosin [Flomax] 0.4 mg PO DAILY 08/30/22 05/01/23 History Warfarin Sodium 4 mg PO MOWEFR@209908/30/22 05/01/23 History Bisoprolol [Zebeta] 5 mg PO DAILY 05/01/23 05/01/23 History Empagliflozin [Jardiance] 10 mg PO DAILY 05/01/23 05/01/23 History Furosemide [Lasix] 20 mg PO HS 05/01/23 05/01/23 History Furosemide [Lasix] 80 mg PO DAILY 05/01/23 05/01/23 History LORazepam [Ativan] 0.5 mg PO TID PRN 05/01/23 05/01/23 History Tiotropium 2.5 Mcg/Puff [Spiriva 2 puff INHALATION RT-DAILY 05/01/23 05/01/23 History Respimat 2.5 Mcg] predniSONE 2.5 mg PO DAILY 05/01/23 05/01/23 History Allergies Allergy/AdvReac Type Severity Reaction Status Date / Time empagliflozin Allergy Dyspnea Verified 05/01/23 19:25 [From Jardiance] iodine AdvReac Unknown Verified 05/01/23 19:25 Patches on chest Allergy Swelling, Uncoded 05/01/23 19:25 See Comment pain med (can't remember AdvReac Hallucinati Uncoded 05/01/23 19:25 name) ons Physical Exam Vitals: Vital Signs Temp Pulse Pulse Resp BP BP Pulse Ox 05/01/23 20:40 72 13 97/57 99 05/01/23 20:30 78 27 H 80/48 100 05/01/23 20:20 32 H 80/48 100 05/01/23 20:10 97.8 F 77 14 83/52 98 05/01/23 19:30 78 30 H 93/60 99 05/01/23 19:04 86 38 H 95/55 92 L 05/01/23 18:27 97.4 F L 90 38 H 116/67 100 05/01/23 18:11 80 05/01/23 18:00 78 05/01/23 17:41 97.5 F L 66 46 H 107/63 99 05/01/23 17:13 97.6 F 80 48 H 110/60 05/01/23 16:52 81 05/01/23 16:39 78 05/01/23 16:33 97.6 F 72 20 105/64 100 05/01/23 14:57 97.9 F 82 38 H 128/75 99 Intake and Output 05/01/23 05/01/23 05/01/23 06:59 14:59 22:59 Intake Total 75 Output Total 400 Balance -325 Intake: IV 75 Sodium Chloride 0.9% 1, 75 000 ml @ 75 mls/hr IV . [id number] [facility] Rx#:[id number] Output: Urine 400 Other: Weight 53.524 kg GENERAL EXAM: Alert, very pleasant 82-year-old male, on 3 L nasal cannula, comfortable in no apparent distress. HEAD: Normocephalic. EYES: Normal reaction of pupils, equal size. NOSE: Clear with pink turbinates. THROAT: No erythema or exudates. NECK: No masses, no JVD. CHEST: No chest wall deformity. LUNGS: Equal air entry with faint crackles in the posterior bases. The patient also has few crackles in lung bases bilaterally along with scattered expiratory wheeze CVS: Irregular S1 and S2 normal with no audible murmur, irregular rhythm. ABDOMEN: No hepatosplenomegaly, normal bowel sounds, no guarding or rigidity. SPINE: No scoliosis or deformity SKIN: No rashes CENTRAL NERVOUS SYSTEM: No focal deficits, tone is normal in all 4 extremities. EXTREMITIES: There is no peripheral edema. No clubbing, no cyanosis. Peripheral pulses are intact. Mental status is fluctuating and the patient is awake x 1-2. Neurologic exam is nonfocal and the patient is moving all 4 extremities without any limitation. Pupils are equal reactive to light. No seizure activity. Results - Laboratory Findings CBC and BMP: 05/01/23 15:34 05/01/23 17:36 PT/INR, D-dimer PT 17.3 sec (10.0-12.5) H 05/01/23 15:34 INR 1.7 (<1.2) H 05/01/23 15:34 Abnormal lab findings: Abnormal Labs 05/01/23 05/01/23 05/01/23 15:34 15:34 15:34 RBC 3.29 L Hgb 9.8 L Hct 29.9 L Lymphocytes # 0.8 L PT 17.3 H INR 1.7 H APTT 34.6 H Sodium 108 L* Chloride 72 L* BUN 43 H Creatinine 1.35 H Glucose 106 H POC Glucose (mg/dL) Troponin I Urine Protein Urine Glucose (UA) Urine Blood Ur Leukocyte Esterase Urine WBC Urine WBC Clumps Urine Bacteria 05/01/23 05/01/23 05/01/23 15:34 17:20 17:36 RBC Hgb Hct Lymphocytes # PT INR APTT Sodium 108 L* Chloride BUN Creatinine Glucose POC Glucose (mg/dL) Troponin I 0.988 H* Urine Protein Trace H Urine Glucose (UA) 2+ H Urine Blood Moderate H Ur Leukocyte Esterase Large H Urine WBC 37 H Urine WBC Clumps Many H Urine Bacteria Occasional H 05/01/23 20:00 RBC Hgb Hct Lymphocytes # PT INR APTT Sodium Chloride BUN Creatinine Glucose POC Glucose (mg/dL) 112 H Troponin I Urine Protein Urine Glucose (UA) Urine Blood Ur Leukocyte Esterase Urine WBC Urine WBC Clumps Urine Bacteria - Diagnostic Findings Chest x-ray: image reviewed Assessment and Plan Plan: Acute hypochloremic hyponatremia, probably due to obstructive uropathy. The patient has a malfunctioning Felder catheter that was replaced in the emergency department. The patient's creatinine is also slightly higher than the baseline at 1.35 and the most recent sodium levels at 108. He is having some altered mentation and confusion related to his acute hyponatremia. Obstructive uropathy and the patient has a Felder catheter in place. This is attributed to BPH. Transrectal ultrasound the prostate showed no nodules or lesions. Baseline PSA is not known. Advanced COPD with upper lobe predominance with bullous emphysematous changes bilaterally. Chronic hypoxic respiratory failure and the patient has been maintained on oxygen 4 L nasal cannula Systolic heart failure with an EF of around 25 to 30% History of valvular heart disease with previous repair of the bicuspid aortic valve and mitral valve replacement that was done [facility] back in 2014 Chronic A-fib maintained on anticoagulation Chronic stage III kidney disease although the most recent creatinine has been essentially within normal limits. His renal function has been fluctuating Previous history of GI bleed Hyperlipidemia Abdominal aortic aneurysm status post endovascular stent grafting Previous history of COVID-19 infection back in September 2022 Previous history of shingles Peripheral vascular disease Plan Will admit this patient to the intensive care unit Will start the patient on 3% hypertonic saline at 30 cc an hour Monitor sodium level every 4 hours and avoid rapid correction of the hyponatremia Monitor hypotension and utilize pressors if needed and the patient will be offered norepinephrine for a mean arterial pressure of less than 60 Monitor renal function Continue anticoagulation with warfarin and monitor the PT/INR. Most recent INR is at 1.7 and the patient is being anticoagulated for chronic A-fib. Hold Entresto for now Hold tiotropium for now as the patient is having urinary retention. Restart bisoprolol Hold diuretics Obtain ultrasound of the kidneys to rule out hydronephrosis Continue maintenance prednisone of 2.5 mg p.o. on a daily basis Will continue to follow. The patient be kept in the ICU for now. Time with Patient: Greater than 30
[2023-05-01] MEDS: NOREPINEPHRINE 4 MG in SODIUM CHLORIDE 0.9% 250 ML IV SCH (21:22)
[2023-05-01] MEDS: TAMSULOSIN 0.4 MG CAP.ER.24H PO SCH (21:27)
[2023-05-01] MEDS: WARFARIN 2 MG TAB PO SCH (21:28)
[2023-05-01] MEDS: LORazepam 0.5 MG TAB PO PRN (21:50)
[2023-05-02] MEDS: ALBUTEROL NEBULIZED 2.5 MG/3 ML INHALATION PRN (00:55)
[2023-05-02] MEDS: BISOPROLOL 5 MG TAB PO SCH (05:01)
[2023-05-02 06:01] LABS: Basophils % (A) 0 %; Eosinophils # (A) 0.1 k/uL (0-0.7); Eosinophils % (A) 1 %; HCT 28.7 % (39.0-53.0); HGB 9.9 gm/dL (13.0-17.5); Lymphocytes # (A) 0.5 k/uL (1.0-4.8); Lymphocytes % (A) 7 %; MCHC 34.5 g/dL (31.0-37.0); MCV 89.8 fL (80.0-100.0); Mean Platelet Volume 8.5; Monocytes # (A) 0.6 k/uL (0-1.0); Monocytes % (A) 8 %; Neutrophils # (A) 6.1 k/uL (1.3-7.7); Neutrophils % (A) 81 %; Platelet Count 227 k/uL (150-450); RBC 3.19 m/uL (4.30-5.90); RDW 14.2 % (11.5-15.5); WBC 7.4 k/uL (3.8-10.6)
[2023-05-02 06:06] LABS: INR 2.2 (<1.2); Prothrombin Time 21.5 sec (10.0-12.5)
[2023-05-02 06:54] LABS: ALT 16 U/L (4-49); AST 31 U/L (17-59); African American GFR (CKD) 58 (>60 ml/min/1.73 sqM); Albumin 3.2 g/dL (3.5-5.0); Alkaline Phosphatase 54 U/L (38-126); Anion Gap 6 mmol/L; Blood Urea Nitrogen 36 mg/dL (9-20); Calcium 8.6 mg/dL (8.4-10.2); Carbon Dioxide 28 mmol/L (22-30); Chloride 80 mmol/L (98-107); Glucose 81 mg/dL (74-99); Lipase 35 U/L (23-300); Magnesium 1.5 mg/dL (1.6-2.3); Non-African American GFR(CKD) 51 (>60 ml/min/1.73 sqM); Phosphorus 2.9 mg/dL (2.5-4.5); Potassium 4.4 mmol/L (3.5-5.1); Total Bilirubin 0.5 mg/dL (0.2-1.3); Total Protein 5.3 g/dL (6.3-8.2)
[2023-05-02 07:06] LABS: Sodium 114 mmol/L (137-145)
[2023-05-02] MEDS ORDERED: Magnesium Replacement Protocol 1 EACH MISC MISCELLANE PRN (07:34)
[2023-05-02] MEDS: SERTRALINE 50 MG TAB PO SCH (09:08)
[2023-05-02] MEDS: MAGNESIUM SULFATE-D5W PMX 1 GM in DEXTROSE/WATER 1 100ML.BAG IVPB SCH (09:08)
--- NOTE | 2023-05-02 10:24 | P.NPCON ---
History of Present Illness - Reason for Consult acute renal failure, hyponatremia - History of Present Illness Reason for consultation: Acute kidney injury and hyponatremia History of present illness: Patient is 83-year-old male seen in new consultation for acute kidney injury and hyponatremia. Patient baseline creatinine from September 2022 was 0.92. This admission is stable near 1.3. Patient recently had a bladder surgery done and had a Felder catheter postsurgery. Subsequently the Felder catheter was removed by the home care nurse. However patient did not void on his own and came to the hospital as he was instructed to do so. Patient sodium level on admission was 108 dated May 01, 2023 at 3:34 PM. Patient was subsequently started on 3% saline and sodium level as of this morning at 8:14 AM was 115. He is currently off IV fluids. Patient is not a very reliable historian. He is somewhat confused. Patient states he has been drinking a ton of fluids. Oral intake has just been fair. He was taking diuretics at home but are currently held. He is currently on Levophed. Felder catheter was placed. Urine output has been 50 to 100 cc an hour. He denies history of diabetes. Denies history of coronary artery disease. Denies history of cancer. Being treated for pneumonia. Vital signs are stable. On Levophed. General: No acute distress. HEENT: Head exam is unremarkable. On nasal cannula. LUNGS: No audible rhonchi or wheezes. HEART: Rate and Rhythm are regular. ABDOMEN: Nontender. EXTREMITITES: No edema. Past Medical History Past Medical History: Atrial Fibrillation, Heart Failure, COPD, GI Bleed, Hyperlipidemia, Pneumonia, Renal Disease, Skin Disorder, Vascular Disorder Additional Past Medical History / Comment(s): GI bleed, gastritis, gastric ectasia, CKD stage III, past abdominal aortic aneurysm/had stent placed, varicosities, PVD, past shingellis and occasionally will have R flank nerve pain, BPH. Covid 09/2022 History of Any Multi-Drug Resistant Organisms: MRSA Date of last positivie culture/infection: 03/19/22 MDRO Source:: Urine Past Surgical History: Cardiac Valve Replacement, Cholecystectomy, Heart Catheterization Additional Past Surgical History / Comment(s): Stent placed for lower abd aortic aneurysym, mitral valve replacement/bicuspid repair, EGD with ablation, colonoscopy, excision L cheek lesion/mass and lesion from scalp/all benign, ZEPHER VALVE PLACED 2 YRS AGO AT [facility] Past Anesthesia/Blood Transfusion Reactions: No Reported Reaction Date of Last Stent Placement:: 2015 Past Psychological History: Anxiety Smoking Status: Former smoker Past Alcohol Use History: Occasional Past Drug Use History: None Reported - Past Family History Mother Family Medical History: Myocardial Infarction ([place]) Additional Family Medical History / Comment(s): at a young age. Father Family Medical History: Hypertension Medications and Allergies Home Medications Medication Instructions Recorded Confirmed Type Fluticasone Propion/Salmeterol 1 puff INHALATION RT-BID 05/05/22 05/01/23 History [Wixela 100-50 Inhub] Sacubitril/Valsartan [Entresto 24 2 tab PO BID 05/05/22 05/01/23 History mg-26 mg Tablet] Sertraline [Zoloft] 50 mg PO DAILY 05/05/22 05/01/23 History Warfarin [Coumadin] 1 mg PO SUTUTHSA@2100 07/12/22 05/01/23 History Ipratropium-Albuterol Nebulize 3 ml INHALATION RT-QID PRN 08/30/22 05/01/23 History [Duoneb 0.5 mg-3 mg/3 ml Soln] Tamsulosin [Flomax] 0.4 mg PO DAILY 08/30/22 05/01/23 History Warfarin Sodium 4 mg PO MOWEFR@2100 08/30/22 05/01/23 History Bisoprolol [Zebeta] 5 mg PO DAILY 05/01/23 05/01/23 History Empagliflozin [Jardiance] 10 mg PO DAILY 05/01/23 05/01/23 History Furosemide [Lasix] 20 mg PO HS 05/01/23 05/01/23 History Furosemide [Lasix] 80 mg PO DAILY 05/01/23 05/01/23 History LORazepam [Ativan] 0.5 mg PO TID PRN 05/01/23 05/01/23 History Tiotropium 2.5 Mcg/Puff [Spiriva 2 puff INHALATION RT-DAILY 05/01/23 05/01/23 History Respimat 2.5 Mcg] predniSONE 2.5 mg PO DAILY 05/01/23 05/01/23 History Allergies Allergy/AdvReac Type Severity Reaction Status Date / Time empagliflozin Allergy Dyspnea Verified 05/01/23 19:25 [From Jardiance] iodine AdvReac Unknown Verified 05/01/23 19:25 Patches on chest Allergy Swelling, Uncoded 05/01/23 19:25 See Comment pain med (can't remember AdvReac Hallucinati Uncoded 05/01/23 19:25 name) ons Physical Exam Vitals: Vital Signs Temp Pulse Pulse Resp BP BP Pulse Ox 05/02/23 08:47 90 05/02/23 08:37 87 98 05/02/23 07:00 96 30 H 85/70 93 L 05/02/23 06:45 96 27 H 86/56 96 05/02/23 06:30 121 H 25 H 94/74 91 L 05/02/23 06:15 96 23 94/60 100 05/02/23 06:00 115 H 24 83/52 98 05/02/23 05:45 112 H 25 H 80/49 97 05/02/23 05:30 100 30 H 79/58 94 L 05/02/23 05:15 96 29 H 93/59 93 L 05/02/23 05:00 115 H 21 77/43 94 L 05/02/23 04:45 99 11 L 89/48 97 05/02/23 04:30 109 H 33 H 93/45 91 L 05/02/23 04:15 87 28 H 93/53 97 05/02/23 04:00 24 76/58 97 05/02/23 03:45 86 30 H 85/57 97 05/02/23 03:30 89 42 H 84/46 99 05/02/23 03:15 90 27 H 98/52 97 05/02/23 03:00 90 16 115/51 99 05/02/23 02:45 99 26 H 94/56 98 05/02/23 02:30 90 26 H 113/61 99 05/02/23 02:15 92 31 H 99/64 99 05/02/23 02:00 91 28 H 105/62 98 05/02/23 01:45 94 34 H 106/58 99 05/02/23 01:30 93 25 H 114/53 99 05/02/23 01:15 93 37 H 117/67 92 L 05/02/23 01:04 93 05/02/23 01:00 92 28 H 99/69 99 05/02/23 00:55 93 05/02/23 00:50 93 25 H 99/69 99 05/02/23 00:40 93 26 H 114/56 99 05/02/23 00:30 93 28 H 113/63 98 05/02/23 00:20 90 27 H 113/63 97 05/02/23 00:10 90 30 H 113/66 97 05/02/23 00:00 97.7 F 87 33 H 112/66 90 L 05/01/23 23:50 85 25 H 98 05/01/23 23:40 87 29 H 106/62 97 05/01/23 23:30 84 26 H 102/59 99 05/01/23 23:22 82 22 99 05/01/23 23:20 83 19 102/59 89 L 05/01/23 23:10 78 32 H 97/66 98 05/01/23 23:00 81 37 H 105/57 98 05/01/23 22:50 84 26 H 74/63 99 05/01/23 22:40 81 28 H 98/65 98 05/01/23 22:30 75 25 H 94/53 99 05/01/23 22:20 75 26 H 94/53 98 05/01/23 22:10 76 25 H 93/60 100 05/01/23 22:00 76 22 91/49 94 L 05/01/23 21:50 77 22 91/49 100 05/01/23 21:40 68 25 H 86/52 100 05/01/23 21:30 75 16 77/51 100 05/01/23 21:20 75 18 78/39 99 05/01/23 21:10 71 18 83/49 100 05/01/23 21:00 74 12 85/51 100 05/01/23 20:50 74 16 85/51 100 05/01/23 20:40 72 13 97/57 99 05/01/23 20:30 78 27 H 80/48 100 05/01/23 20:20 32 H 80/48 100 05/01/23 20:10 97.8 F 77 14 83/52 98 05/01/23 19:30 78 30 H 93/60 99 05/01/23 19:04 86 38 H 95/55 92 L 05/01/23 18:27 97.4 F L 90 38 H 116/67 100 05/01/23 18:11 80 05/01/23 18:00 78 05/01/23 17:41 97.5 F L 66 46 H 107/63 99 05/01/23 17:13 97.6 F 80 48 H 110/60 05/01/23 16:52 81 05/01/23 16:39 78 05/01/23 16:33 97.6 F 72 20 105/64 100 05/01/23 14:57 97.9 F 82 38 H 128/75 99 Intake and Output 05/01/23 05/02/23 05/02/23 22:59 06:59 14:59 Intake Total 135 273.615 32.447 Output Total 580 760 50 Balance -445 -486.385 -17.553 Intake: IV 135 240 30 Sodium Chloride 0.9% 1, 75 000 ml @ 75 mls/hr IV . [id number] [facility] Rx#:[id number] Sodium Chloride 3%( 60 240 30 Hypertonic) 500 ml @ 30 mls/hr IV .[id number] [facility] Rx #:[id number] Intake, IV Titration 33.615 2.447 Amount Norepinephrine 4 mg In 33.615 2.447 Sodium Chloride 0.9% 250 ml @ 0.03 MCG/KG/MIN 6. 118 mls/hr IV .Q24H [facility] Rx#:[id number] Output: Urine 580 760 50 Other: Weight 53.524 kg Results - Lab Results Most recent lab results Calcium 8.6 mg/dL (8.4-10.2) 05/02/23 05:43 Phosphorus 2.9 mg/dL (2.5-4.5) 05/02/23 05:43 Magnesium 1.5 mg/dL (1.6-2.3) L 05/02/23 05:43 05/02/23 05:43 05/02/23 08:14 Assessment and Plan Plan: Assessment: 1. Acute kidney injury secondary to ATN secondary to obstructive uropathy and diuretics. Creatinine stable at 1.3. Creatinine 0.92 in September 2022. 2. Hyponatremia secondary to urinary retention and excess fluid intake. Was also on Lasix outpatient. Urine osmolality 207. 3. Chronic systolic CHF with ejection fraction of 25 to 30%. 4. Recent bladder surgery status post Felder catheter insertion and subsequent removal. Felder catheter had to be reinserted this admission due to retention. 5. Urinary retention. 6. Hypomagnesemia from poor intake. Being replaced. 7. Septic shock. Pneumonia versus UTI. On antibiotics. On Levophed. Plan: Maintain off IV fluids. Repeat sodium level at 10 AM. Goal rate of sodium correction 6-7 mmol/L per 24 hrs. If sodium level rises further, will start hypotonic fluids. Check urine sodium level. Check TSH. Check cortisol level. Thank you for the consultation. I will continue to follow the patient with you during his hospital stay.
[2023-05-02] MEDS: predniSONE 2.5 MG TAB PO SCH (10:32)
[2023-05-02] MEDS: IPRATROPIUM-ALBUTEROL 3 ML NEB INHALATION SCH (11:26)
--- NOTE | 2023-05-02 14:04 | P.PN ---
Subjective Progress Note Date: 05/02/23 This is a 83-year-old male patient with multiple medical problems and comorbidities. The patient came into the emergency department because of diminished level of consciousness and some confusions and the patient was found to be profoundly hyponatremic and subsequently the patient was moved to the intensive care for management of hyponatremia. His sodium level was 108 and the chloride was 72. He had a BUN of 43 with a creatinine of 1.35 knowing that the patient has a normal baseline creatinine of 0.9 from 09/06/2022. Note that the patient has multiple medical problems and comorbidities. The patient was given a Felder catheter for obstructive uropathy and BPH. However, he was unable to urinate. He came into the emergency department and Felder catheter was essentially removed. In the emergency, he was found to be confused. He denies having any shortness of breath. He had trace edema lower extremities bilaterally. The Felder catheter was reinserted and the patient was able to produce urine output and the patient has been making urine for now. UA was checked and the patient was found to have elevated white cell count of 37 with a +2 glucose and a moderate amount of blood and 4 WBCs. His initial troponin was at 0.98. CPK was 73. 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 The patient is breathing comfortably and the patient is currently at 4 L of oxygen by nasal cannula with a pulse ox of 99%. His most recent blood pressure is 97/57. In terms of his previous medical problems and comorbidities, they are quite extensive. The patient has advanced COPD and he has been oxygen dependent somewhere between 3 and 4 L of oxygen by nasal cannula. He also has chronic systolic heart failure with an ejection fraction of 25 to 30% and he has undergone previous mitral valve replacement at [facility] back in 2015 and repair of a bicuspid aortic valve. He also has an abdominal aortic aneurysm for which she has undergone endovascular static grafting. He has chronic A-fib maintained on anticoagulation with warfarin and he has h hyperlipidemia and stage III chronic kidney disease although most recent creatinine based on our records has been within normal limits. He has BPH, peripheral vascular disease in addition. On today's evaluation of 05/02/2023, the patient is being seen for a follow-up. His confusion is somewhat improved although the patient is on and off found to be altered neurologically. Noted the patient presented to us with severe hyponatremia and his sodium level was as low as 108. The patient was started on hypertonic saline and the morning sodium level came at 114. At that point, the hypertonic saline was discontinued. The patient is currently on KVO IV fluids. He also required some pressors and the patient is on low-dose norepinephrine at 0.07 mcg/kg/min. Overall fluid balance over the past 24 hours has been +931 cc. Urine output is adequate in the order of 60 to 70 cc. Blood work from today shows a white cell count of 7.4 with a hemoglobin 9.9 and a platelet count of 227. The BUN is at 36 with a creatinine of 1.3 and the rest of the electrolytes show a potassium level of 4.4, chloride is up to 80 and liver function tests are essentially within normal limits. Felder catheter was inserted. Urine culture still pending. The patient remains on IV Rocephin. Zithromax will be discontinued. INR therapeutic at 2.2 and the patient continues to be on warfarin. No focal neurological deficits. No headaches. Objective - Vital Signs Vital signs: Vital Signs Temp 97.7 F 05/02/23 00:00 Pulse 90 05/02/23 08:47 Resp 30 H 05/02/23 07:00 BP 85/70 05/02/23 07:00 Pulse Ox 98 05/02/23 08:37 FiO2 Intake & Output 05/01/23 05/02/23 05/02/23 18:59 06:59 18:59 Intake Total 408.615 32.447 Output Total 1340 50 Balance -931.385 -17.553 Weight 53.524 kg Intake: IV 375 30 Sodium Chloride 0.9% 1, 75 000 ml @ 75 mls/hr IV . [id number] [facility] Rx#:[id number] Sodium Chloride 3%( 300 30 Hypertonic) 500 ml @ 30 mls/hr IV .[id number] [facility] Rx #:[id number] Intake, IV Titration 33.615 2.447 Amount Norepinephrine 4 mg In 33.615 2.447 Sodium Chloride 0.9% 250 ml @ 0.03 MCG/KG/MIN 6. 118 mls/hr IV .Q24H [facility] Rx#:[id number] Output: Urine 1340 50 - Exam GENERAL EXAM: Alert, very pleasant 82-year-old male, on 4 L nasal cannula, comfortable in no apparent distress. HEAD: Normocephalic. EYES: Normal reaction of pupils, equal size. NOSE: Clear with pink turbinates. THROAT: No erythema or exudates. NECK: No masses, no JVD. CHEST: No chest wall deformity. LUNGS: Equal air entry with faint crackles in the posterior bases. The patient also has few crackles in lung bases bilaterally along with scattered expiratory wheeze CVS: Irregular S1 and S2 normal with no audible murmur, irregular rhythm. ABDOMEN: No hepatosplenomegaly, normal bowel sounds, no guarding or rigidity. SPINE: No scoliosis or deformity SKIN: No rashes CENTRAL NERVOUS SYSTEM: No focal deficits, tone is normal in all 4 extremities. EXTREMITIES: There is no peripheral edema. No clubbing, no cyanosis. Periph eral pulses are intact. Mental status is fluctuating and the patient is awake x 1-2. Neurologic exam is nonfocal and the patient is moving all 4 extremities without any limitation. Pupils are equal reactive to light. No seizure activity. - Labs CBC & Chem 7: 05/02/23 05:43 05/02/23 10:51 Labs: Abnormal Lab Results - Last 24 Hours (Table) 05/01/23 05/01/23 05/01/23 Range/Units 15:34 15:34 15:34 RBC 3.29 L (4.30-5.90) m/uL Hgb 9.8 L (13.0-17.5) gm/dL Hct 29.9 L (39.0-53.0) % Lymphocytes # 0.8 L (1.0-4.8) k/uL PT 17.3 H (10.0-12.5) sec INR 1.7 H (<1.2) APTT 34.6 H (22.0-30.0) sec Sodium 108 L* (137-145) mmol/L Chloride 72 L* (98-107) mmol/L BUN 43 H (9-20) mg/dL Creatinine 1.35 H (0.66-1.25) mg/dL Glucose 106 H (74-99) mg/dL POC Glucose (mg/dL) (70-110) mg/dL Osmolality (275-295) mOsm/kg Magnesium (1.6-2.3) mg/dL Troponin I (0.000-0.034) ng/mL Total Protein (6.3-8.2) g/dL Albumin (3.5-5.0) g/dL Urine Protein (Negative) Urine Glucose (UA) (Negative) Urine Blood (Negative) Ur Leukocyte Esterase (Negative) Urine WBC (0-5) /hpf Urine WBC Clumps (None) /hpf Urine Bacteria (None) /hpf Urine Osmolality (400-1100) mOsm/kg 05/01/23 05/01/23 05/01/23 Range/Units 15:34 17:20 17:20 RBC (4.30-5.90) m/uL Hgb (13.0-17.5) gm/dL Hct (39.0-53.0) % Lymphocytes # (1.0-4.8) k/uL PT (10.0-12.5) sec INR (<1.2) APTT (22.0-30.0) sec Sodium (137-145) mmol/L Chloride (98-107) mmol/L BUN (9-20) mg/dL Creatinine (0.66-1.25) mg/dL Glucose (74-99) mg/dL POC Glucose (mg/dL) (70-110) mg/dL Osmolality (275-295) mOsm/kg Magnesium (1.6-2.3) mg/dL Troponin I 0.988 H* (0.000-0.034) ng/mL Total Protein (6.3-8.2) g/dL Albumin (3.5-5.0) g/dL Urine Protein Trace H (Negative) Urine Glucose (UA) 2+ H (Negative) Urine Blood Moderate H (Negative) Ur Leukocyte Esterase Large H (Negative) Urine WBC 37 H (0-5) /hpf Urine WBC Clumps Many H (None) /hpf Urine Bacteria Occasional H (None) /hpf Urine Osmolality 207 L (400-1100) mOsm/kg 05/01/23 05/01/23 05/01/23 Range/Units 17:36 20:00 20:54 RBC (4.30-5.90) m/uL Hgb (13.0-17.5) gm/dL Hct (39.0-53.0) % Lymphocytes # (1.0-4.8) k/uL PT (10.0-12.5) sec INR (<1.2) APTT (22.0-30.0) sec Sodium 108 L* 107 L* (137-145) mmol/L Chloride (98-107) mmol/L BUN (9-20) mg/dL Creatinine (0.66-1.25) mg/dL Glucose (74-99) mg/dL POC Glucose (mg/dL) 112 H (70-110) mg/dL Osmolality 243 A* (275-295) mOsm/kg Magnesium (1.6-2.3) mg/dL Troponin I (0.000-0.034) ng/mL Total Protein (6.3-8.2) g/dL Albumin (3.5-5.0) g/dL Urine Protein (Negative) Urine Glucose (UA) (Negative) Urine Blood (Negative) Ur Leukocyte Esterase (Negative) Urine WBC (0-5) /hpf Urine WBC Clumps (None) /hpf Urine Bacteria (None) /hpf Urine Osmolality (400-1100) mOsm/kg 05/02/23 05/02/23 05/02/23 Range/Units 01:40 05:43 05:43 RBC 3.19 L (4.30-5.90) m/uL Hgb 9.9 L (13.0-17.5) gm/dL Hct 28.7 L (39.0-53.0) % Lymphocytes # 0.5 L (1.0-4.8) k/uL PT (10.0-12.5) sec INR (<1.2) APTT (22.0-30.0) sec Sodium 110 L* 114 L* (137-145) mmol/L Chloride 80 L (98-107) mmol/L BUN 36 H (9-20) mg/dL Creatinine 1.31 H (0.66-1.25) mg/dL Glucose (74-99) mg/dL POC Glucose (mg/dL) (70-110) mg/dL Osmolality (275-295) mOsm/kg Magnesium 1.5 L (1.6-2.3) mg/dL Troponin I (0.000-0.034) ng/mL Total Protein 5.3 L (6.3-8.2) g/dL Albumin 3.2 L (3.5-5.0) g/dL Urine Protein (Negative) Urine Glucose (UA) (Negative) Urine Blood (Negative) Ur Leukocyte Esterase (Negative) Urine WBC (0-5) /hpf Urine WBC Clumps (None) /hpf Urine Bacteria (None) /hpf Urine Osmolality (400-1100) mOsm/kg 05/02/23 Range/Units 05:43 RBC (4.30-5.90) m/uL Hgb (13.0-17.5) gm/dL Hct (39.0-53.0) % Lymphocytes # (1.0-4.8) k/uL PT 21.5 H (10.0-12.5) sec INR 2.2 H (<1.2) APTT (22.0-30.0) sec Sodium (137-145) mmol/L Chloride (98-107) mmol/L BUN (9-20) mg/dL Creatinine (0.66-1.25) mg/dL Glucose (74-99) mg/dL POC Glucose (mg/dL) (70-110) mg/dL Osmolality (275-295) mOsm/kg Magnesium (1.6-2.3) mg/dL Troponin I (0.000-0.034) ng/mL Total Protein (6.3-8.2) g/dL Albumin (3.5-5.0) g/dL Urine Protein (Negative) Urine Glucose (UA) (Negative) Urine Blood (Negative) Ur Leukocyte Esterase (Negative) Urine WBC (0-5) /hpf Urine WBC Clumps (None) /hpf Urine Bacteria (None) /hpf Urine Osmolality (400-1100) mOsm/kg Assessment and Plan Plan: Acute hypochloremic hyponatremia, probably due to obstructive uropathy. The patient had the Felder catheter removed and he was unable to urinate and subsequently presented emergency department and a Felder catheter was inserted. Urine output is adequate for now. The patient was given hypertonic saline overnight and the most recent sodium level is up to 114. Current IV fluids at KVO And hypertonic saline has been discontinued. Neurologically, gradually improving and the patient remains less confused compared to yesterday. No agitation. No focal neurological deficits. Hypotension, currently on low-dose norepinephrine. Exact cause for the underlying hypotension is not clear. We supported the patient's blood pressure with low-dose norepinephrine. Entresto and beta-blockers have been discontinued as the patient was taking bisoprolol on an outpatient basis. Rule out drug- induced hypotension along with a component of cardiogenic hypotension as the patient has impaired LV function with an ejection fraction of 25%. Obstructive uropathy and the patient has a Felder catheter in place. This is attributed to BPH. Transrectal ultrasound the prostate showed no nodules or lesions. Baseline PSA is not known. Advanced COPD with upper lobe predominance with bullous emphysematous changes bilaterally. Chronic hypoxic respiratory failure and the patient has been maintained on oxygen 4 L nasal cannula Systolic heart failure with an EF of around 25 to 30% History of valvular heart disease with previous repair of the bicuspid aortic valve and mitral valve replacement that was done [facility] back in 2014 Chronic A-fib maintained on anticoagulation Chronic stage III kidney disease although the most recent creatinine has been essentially within normal limits. His renal function has been fluctuating Previous history of GI bleed Hyperlipidemia Abdominal aortic aneurysm status post endovascular stent grafting Previous history of COVID-19 infection back in September 2022 Previous history of shingles Peripheral vascular disease Recurrent urine tract infection the patient has a Felder catheter in place. UA is abnormal. Awaiting final cultures. The patient is currently on IV Rocephin Plan Keep the patient in the intensive care unit Discontinue the hypertonic saline Monitor sodium level every 4 hours and avoid rapid correction of the hyponat remia Monitor hypotension and continue low-dose \norepinephrine\for blood pressure support Monitor renal function, nephrology on the case Continue anticoagulation with warfarin and monitor the PT/INR. Most recent INR is at 2.2 and the patient is being anticoagulated for chronic A-fib. Hold Entresto for now Hold tiotropium for now as the patient is having urinary retention. Restart bisoprolol Hold diuretics Continue maintenance prednisone of 2.5 mg p.o. on a daily basis Continue IV Rocephin Discontinue Zithromax Will continue to follow. The patient be kept in the ICU for now.
[2023-05-02 14:09] LABS: ABG Base Excess 2.5 mmol/L; ABG HCO3 28 mmol/L (21-25); ABG Oxygen Saturation 97.8 % (94-97); ABG PCO2 52 mmHg (35-45); ABG PH 7.34 (7.35-7.45); ABG PO2 117 mmHg (83-108); ABG TCO2 30 mmol/L (19-24); Allen Test Performed? Yes
--- NOTE | 2023-05-02 14:54 | P.HPIM ---
History of Present Illness H&P Date: 05/02/23 Chief Complaint: Malfunctioning Felder catheter This is an 83-year-old gentleman with past medical history significant for advanced COPD, chronic hypoxic respiratory failure, atrial fibrillation, chronic systolic CHF, CKD 3A, former nicotine dependence, multiple other medical issues .Patient was brought into the ER for malfunctioning Felder catheter, shortness of breath, increased weakness. Felder catheter replaced with return not documented. Apparently patient had a recent bladder surgery-attempting to obtain records. Patient does have history of chronic Felder catheter. [employer] Supervisor reported about 800 mL noted during his initial assessment last night, post Felder catheter exchange. Discovered to be in severe hyponatremia with sodium 108. Placed on 3% hypertonic saline infusion. Sodium improving, up to 114, with hypertonic solution discontinued. IV fluid hydration on hold. Chloride increased to 80. averaging 60 mL/h of urine output hypotensive, on Levophed. Mentation improving with fluctuating confusion. Denies lightheadedness dizziness or focal deficits. Denies headache. Denies chest pain, palpitations. Chest x-ray reported COPD with bullous emphysema, worsening bibasilar opacities and possible trace effusions . UA reported osmolality 207, occasional bacteria, many WBC clumps, 37 WBCs, large leukocytes, negative nitrates 2+ glucose, trace protein, cloudy, culture pending. Maintained on ceftriaxone. Afebrile, normal WBC. Creatinine 1.3, baseline around 0.92. Hemoglobin 9.9, platelets 277. Anticoagulated on Coumadin, INR 2.2, ABGs noted. Magnesium 1.5. Review of Systems Review of systems unable to obtain, secondary to current mental status. Past Medical History Past Medical History: Atrial Fibrillation, Heart Failure, COPD, GI Bleed, Hyperlipidemia, Pneumonia, Renal Disease, Skin Disorder, Vascular Disorder Additional Past Medical History / Comment(s): GI bleed, gastritis, gastric ectasia, CKD stage III, past abdominal aortic aneurysm/had stent placed, varicosities, PVD, past shingellis and occasionally will have R flank nerve pain, BPH. Covid 09/2022 History of Any Multi-Drug Resistant Organisms: MRSA Date of last positivie culture/infection: 03/19/22 MDRO Source:: Urine Past Surgical History: Cardiac Valve Replacement, Cholecystectomy, Heart Catheterization Additional Past Surgical History / Comment(s): Stent placed for lower abd aortic aneurysym, mitral valve replacement/bicuspid repair, EGD with ablation, colonoscopy, excision L cheek lesion/mass and lesion from scalp/all benign, ZEPHER VALVE PLACED 2 YRS AGO AT [facility] Past Anesthesia/Blood Transfusion Reactions: No Reported Reaction Date of Last Stent Placement:: 2015 Past Psychological History: Anxiety Smoking Status: Former smoker Past Alcohol Use History: Occasional Past Drug Use History: None Reported - Past Family History Mother Family Medical History: Myocardial Infarction (ME) Additional Family Medical History / Comment(s): at a young age. Father Family Medical History: Hypertension Medications and Allergies Home Medications Medication Instructions Recorded Confirmed Type Fluticasone Propion/Salmeterol 1 puff INHALATION RT-BID 05/05/22 05/01/23 History [Wixela 100-50 Inhub] Sacubitril/Valsartan [Entresto 24 2 tab PO BID 05/05/22 05/01/23 History mg-26 mg Tablet] Sertraline [Zoloft] 50 mg PO DAILY 05/05/22 05/01/23 History Warfarin [Coumadin] 1 mg PO SUTUTHSA@2100 07/12/22 05/01/23 History Ipratropium-Albuterol Nebulize 3 ml INHALATION RT-QID PRN 08/30/22 05/01/23 History [Duoneb 0.5 mg-3 mg/3 ml Soln] Tamsulosin [Flomax] 0.4 mg PO DAILY 08/30/22 05/01/23 History Warfarin Sodium 4 mg PO MOWEFR@209908/30/22 05/01/23 History Bisoprolol [Zebeta] 5 mg PO DAILY 05/01/23 05/01/23 History Empagliflozin [Jardiance] 10 mg PO DAILY 05/01/23 05/01/23 History Furosemide [Lasix] 20 mg PO HS 05/01/23 05/01/23 History Furosemide [Lasix] 80 mg PO DAILY 05/01/23 05/01/23 History LORazepam [Ativan] 0.5 mg PO TID PRN 05/01/23 05/01/23 History Tiotropium 2.5 Mcg/Puff [Spiriva 2 puff INHALATION RT-DAILY 05/01/23 05/01/23 History Respimat 2.5 Mcg] predniSONE 2.5 mg PO DAILY 05/01/23 05/01/23 History Allergies Allergy/AdvReac Type Severity Reaction Status Date / Time empagliflozin Allergy Dyspnea Verified 05/01/23 19:25 [From Jardiance] iodine AdvReac Unknown Verified 05/01/23 19:25 Patches on chest Allergy Swelling, Uncoded 05/01/23 19:25 See Comment pain med (can't remember AdvReac Hallucinati Uncoded 05/01/23 19:25 name) ons Physical Exam Vitals: Vital Signs Temp Pulse Pulse Resp BP BP Pulse Ox 05/02/23 13:00 81 91/51 05/02/23 12:45 83 91/44 05/02/23 12:30 81 28 H 96/53 05/02/23 12:15 25 H 85/57 05/02/23 12:00 98.1 F 84 28 H 92/59 92 L 05/02/23 11:45 80 27 H 90/78 05/02/23 11:30 83 24 111/59 97 05/02/23 11:15 86 38 H 85/50 97 05/02/23 11:00 86 22 103/93 97 05/02/23 10:45 88 0 L 95/52 98 05/02/23 10:30 81 22 95 05/02/23 10:15 85 30 H 99/64 89 L 05/02/23 10:00 86 29 H 95/45 94 L 05/02/23 09:45 86 13 96/56 98 05/02/23 09:30 84 24 114/95 100 05/02/23 09:15 87 22 78/58 87 L 05/02/23 09:00 90 17 92/58 91 L 05/02/23 08:47 90 05/02/23 08:45 89 19 99/51 99 05/02/23 08:37 87 98 05/02/23 08:30 98.2 F 90 18 90/68 95 05/02/23 08:15 92 32 H 94/59 86 L 05/02/23 08:00 87 30 H 97/43 97 05/02/23 07:45 105 H 21 94/56 94 L 05/02/23 07:30 86 14 92/70 96 05/02/23 07:15 112 H 26 H 100/44 94 L 05/02/23 07:00 96 30 H 85/70 93 L 05/02/23 06:45 96 27 H 86/56 96 05/02/23 06:30 121 H 25 H 94/74 91 L 05/02/23 06:15 96 23 94/60 100 05/02/23 06:00 115 H 24 83/52 98 05/02/23 05:45 112 H 25 H 80/49 97 05/02/23 05:30 100 30 H 79/58 94 L 05/02/23 05:15 96 29 H 93/59 93 L 05/02/23 05:00 115 H 21 77/43 94 L 05/02/23 04:45 99 11 L 89/48 97 05/02/23 04:30 109 H 33 H 93/45 91 L 05/02/23 04:15 87 28 H 93/53 97 05/02/23 04:00 24 76/58 97 05/02/23 03:45 86 30 H 85/57 97 05/02/23 03:30 89 42 H 84/46 99 05/02/23 03:15 90 27 H 98/52 97 05/02/23 03:00 90 16 115/51 99 05/02/23 02:45 99 26 H 94/56 98 05/02/23 02:30 90 26 H 113/61 99 05/02/23 02:15 92 31 H 99/64 99 05/02/23 02:00 91 28 H 105/62 98 05/02/23 01:45 94 34 H 106/58 99 05/02/23 01:30 93 25 H 114/53 99 05/02/23 01:15 93 37 H 117/67 92 L 05/02/23 01:04 93 05/02/23 01:00 92 28 H 99/69 99 05/02/23 00:55 93 05/02/23 00:50 93 25 H 99/69 99 05/02/23 00:40 93 26 H 114/56 99 05/02/23 00:30 93 28 H 113/63 98 05/02/23 00:20 90 27 H 113/63 97 05/02/23 00:10 90 30 H 113/66 97 05/02/23 00:00 97.7 F 87 33 H 112/66 90 L 05/01/23 23:50 85 25 H 98 05/01/23 23:40 87 29 H 106/62 97 05/01/23 23:30 84 26 H 102/59 99 05/01/23 23:22 82 22 99 05/01/23 23:20 83 19 102/59 89 L 05/01/23 23:10 78 32 H 97/66 98 05/01/23 23:00 81 37 H 105/57 98 05/01/23 22:50 84 26 H 74/63 99 05/01/23 22:40 81 28 H 98/65 98 05/01/23 22:30 75 25 H 94/53 99 05/01/23 22:20 75 26 H 94/53 98 05/01/23 22:10 76 25 H 93/60 100 05/01/23 22:00 76 22 91/49 94 L 05/01/23 21:50 77 22 91/49 100 05/01/23 21:40 68 25 H 86/52 100 05/01/23 21:30 75 16 77/51 100 05/01/23 21:20 75 18 78/39 99 05/01/23 21:10 71 18 83/49 100 05/01/23 21:00 74 12 85/51 100 05/01/23 20:50 74 16 85/51 100 05/01/23 20:40 72 13 97/57 99 05/01/23 20:30 78 27 H 80/48 100 05/01/23 20:20 32 H 80/48 100 05/01/23 20:10 97.8 F 77 14 83/52 98 05/01/23 19:30 78 30 H 93/60 99 05/01/23 19:04 86 38 H 95/55 92 L 05/01/23 18:27 97.4 F L 90 38 H 116/67 100 05/01/23 18:11 80 05/01/23 18:00 78 05/01/23 17:41 97.5 F L 66 46 H 107/63 99 05/01/23 17:13 97.6 F 80 48 H 110/60 05/01/23 16:52 81 05/01/23 16:39 78 05/01/23 16:33 97.6 F 72 20 105/64 100 05/01/23 14:57 97.9 F 82 38 H 128/75 99 Intake and Output 05/01/23 05/02/23 05/02/23 22:59 06:59 14:59 Intake Total 135 273.615 373.093 Output Total 580 760 250 Balance -445 -486.385 123.093 Intake: IV 135 240 280 Magnesium Sulfate-D5w Pmx 200 1 gm In Dextrose/Water 1 100ml.bag @ 100 mls/hr IVPB Q1H [facility] Rx#: [id number] Sodium Chloride 0.9% 1, 75 000 ml @ 75 mls/hr IV . [id number] [facility] Rx#:[id number] Sodium Chloride 3%( 60 240 30 Hypertonic) 500 ml @ 30 mls/hr IV .[id number] [facility] Rx #:[id number] cefTRIAXone 2 gm In 50 Sodium Chloride 0.9% 50 ml @ 100 mls/hr IVPB Q24HR [facility] Rx#:[id number] Intake, IV Titration 33.615 93.093 Amount Norepinephrine 4 mg In 33.615 93.093 Sodium Chloride 0.9% 250 ml @ 0.03 MCG/KG/MIN 6. 118 mls/hr IV .Q24H [facility] Rx#:[id number] Output: Urine 580 760 250 Other: Weight 53.524 kg General: Patient awake, alert and oriented times 1-2. Minimal distress ,Shortness of breath, fluctuating confusion HEENT: Normocephalic PERRLA EOMI Neck: Supple, no JVD no thyromegaly or lymphadenopathy noted Cardiac: Heart regular in rate and rhythm . No S3. No S4. No clicks, rubs. Positive systolic murmur consistent with his aortic valve replacement Lungs: Diminished breath sounds bilaterally with bibasilar expiratory expiratory wheezes and rhonchi (close to baseline), fine bibasilar crackles.'; Abdomen: Soft, nontender, no hepatosplenomegaly, no guarding, no rigidity, +BS. Extremes: [No edema no cyanosis no claudication normal pulses : indwelling Felder catheter Skin: [No rash, warm and dry Neurologic: Limited exam. Nonfocal. [place]. Results CBC & Chem 7: 05/02/23 05:43 05/02/23 10:51 Labs: Abnormal Lab Results - Last 24 Hours (Table) 05/01/23 05/01/23 05/01/23 Range/Units 15:34 15:34 15:34 RBC 3.29 L (4.30-5.90) m/uL Hgb 9.8 L (13.0-17.5) gm/dL Hct 29.9 L (39.0-53.0) % Lymphocytes # 0.8 L (1.0-4.8) k/uL PT 17.3 H (10.0-12.5) sec INR 1.7 H (<1.2) APTT 34.6 H (22.0-30.0) sec Sodium 108 L* (137-145) mmol/L Chloride 72 L* (98-107) mmol/L BUN 43 H (9-20) mg/dL Creatinine 1.35 H (0.66-1.25) mg/dL Glucose 106 H (74-99) mg/dL POC Glucose (mg/dL) (70-110) mg/dL Osmolality (275-295) mOsm/kg Magnesium (1.6-2.3) mg/dL Troponin I (0.000-0.034) ng/mL Total Protein (6.3-8.2) g/dL Albumin (3.5-5.0) g/dL Urine Protein (Negative) Urine Glucose (UA) (Negative) Urine Blood (Negative) Ur Leukocyte Esterase (Negative) Urine WBC (0-5) /hpf Urine WBC Clumps (None) /hpf Urine Bacteria (None) /hpf Urine Osmolality (400-1100) mOsm/kg 05/01/23 05/01/23 05/01/23 Range/Units 15:34 17:20 17:20 RBC (4.30-5.90) m/uL Hgb (13.0-17.5) gm/dL Hct (39.0-53.0) % Lymphocytes # (1.0-4.8) k/uL PT (10.0-12.5) sec INR (<1.2) APTT (22.0-30.0) sec Sodium (137-145) mmol/L Chloride (98-107) mmol/L BUN (9-20) mg/dL Creatinine (0.66-1.25) mg/dL Glucose (74-99) mg/dL POC Glucose (mg/dL) (70-110) mg/dL Osmolality (275-295) mOsm/kg Magnesium (1.6-2.3) mg/dL Troponin I 0.988 H* (0.000-0.034) ng/mL Total Protein (6.3-8.2) g/dL Albumin (3.5-5.0) g/dL Urine Protein Trace H (Negative) Urine Glucose (UA) 2+ H (Negative) Urine Blood Moderate H (Negative) Ur Leukocyte Esterase Large H (Negative) Urine WBC 37 H (0-5) /hpf Urine WBC Clumps Many H (None) /hpf Urine Bacteria Occasional H (None) /hpf Urine Osmolality 207 L (400-1100) mOsm/kg 05/01/23 05/01/23 05/01/23 Range/Units 17:36 20:00 20:54 RBC (4.30-5.90) m/uL Hgb (13.0-17.5) gm/dL Hct (39.0-53.0) % Lymphocytes # (1.0-4.8) k/uL PT (10.0-12.5) sec INR (<1.2) APTT (22.0-30.0) sec Sodium 108 L* 107 L* (137-145) mmol/L Chloride (98-107) mmol/L BUN (9-20) mg/dL Creatinine (0.66-1.25) mg/dL Glucose (74-99) mg/dL POC Glucose (mg/dL) 112 H (70-110) mg/dL Osmolality 243 A* (275-295) mOsm/kg Magnesium (1.6-2.3) mg/dL Troponin I (0.000-0.034) ng/mL Total Protein (6.3-8.2) g/dL Albumin (3.5-5.0) g/dL Urine Protein (Negative) Urine Glucose (UA) (Negative) Urine Blood (Negative) Ur Leukocyte Esterase (Negative) Urine WBC (0-5) /hpf Urine WBC Clumps (None) /hpf Urine Bacteria (None) /hpf Urine Osmolality (400-1100) mOsm/kg 05/02/23 05/02/23 05/02/23 Range/Units 01:40 05:43 05:43 RBC 3.19 L (4.30-5.90) m/uL Hgb 9.9 L (13.0-17.5) gm/dL Hct 28.7 L (39.0-53.0) % Lymphocytes # 0.5 L (1.0-4.8) k/uL PT (10.0-12.5) sec INR (<1.2) APTT (22.0-30.0) sec Sodium 110 L* 114 L* (137-145) mmol/L Chloride 80 L (98-107) mmol/L BUN 36 H (9-20) mg/dL Creatinine 1.31 H (0.66-1.25) mg/dL Glucose (74-99) mg/dL POC Glucose (mg/dL) (70-110) mg/dL Osmolality (275-295) mOsm/kg Magnesium 1.5 L (1.6-2.3) mg/dL Troponin I (0.000-0.034) ng/mL Total Protein 5.3 L (6.3-8.2) g/dL Albumin 3.2 L (3.5-5.0) g/dL Urine Protein (Negative) Urine Glucose (UA) (Negative) Urine Blood (Negative) Ur Leukocyte Esterase (Negative) Urine WBC (0-5) /hpf Urine WBC Clumps (None) /hpf Urine Bacteria (None) /hpf Urine Osmolality (400-1100) mOsm/kg 05/02/23 05/02/23 05/02/23 Range/Units 05:43 08:14 10:51 RBC (4.30-5.90) m/uL Hgb (13.0-17.5) gm/dL Hct (39.0-53.0) % Lymphocytes # (1.0-4.8) k/uL PT 21.5 H (10.0-12.5) sec INR 2.2 H (<1.2) APTT (22.0-30.0) sec Sodium 115 L* 115 L* (137-145) mmol/L Chloride (98-107) mmol/L BUN (9-20) mg/dL Creatinine (0.66-1.25) mg/dL Glucose (74-99) mg/dL POC Glucose (mg/dL) (70-110) mg/dL Osmolality (275-295) mOsm/kg Magnesium (1.6-2.3) mg/dL Troponin I (0.000-0.034) ng/mL Total Protein (6.3-8.2) g/dL Albumin (3.5-5.0) g/dL Urine Protein (Negative) Urine Glucose (UA) (Negative) Urine Blood (Negative) Ur Leukocyte Esterase (Negative) Urine WBC (0-5) /hpf Urine WBC Clumps (None) /hpf Urine Bacteria (None) /hpf Urine Osmolality (400-1100) mOsm/kg Assessment and Plan Assessment: (1) Acute hypochloremic hyponatremia, etiology unclear, possibly due to urinary retention ,obstructive uropathy. Reported malfunctioning Felder catheter replaced in the ER. Status post hypertonic saline infusion. (2) Acute metabolic encephalopathy secondary to the above (3) Hypotension, pressor dependent, etiology unclear (4) Acute renal failure secondary to obstructive uropathy, diuretics (4) Possible acute UTI, secondary to chronic Felder catheter, culture in progress, in a patient with history of recurrent UTIs (4) Chronic indwelling Felder catheter. Recent bladder surgery reported- Current Visit: Yes Status: Acute Code(s): Z97.8 - PRESENCE OF OTHER SPECIFIED DEVICES SNOMED Code(s): 003094775 (4) COPD, advanced with bullous emphysema and worsening bibasilar opacities reported per chest x-ray Current Visit: Yes Status: Acute Code(s): J44.1 - CHRONIC OBSTRUCTIVE PULMONARY DISEASE W (ACUTE) EXACERBATION SNOMED Code(s): 239307820 (2) Chronic hypoxic respiratory failure (3) Anemia Current Visit: No Status: Acute Code(s): D64.9 - ANEMIA, UNSPECIFIED SNOMED Code(s): 898217039 (4) Degenerative scoliosis in adult patient Current Visit: No Status: Acute Code(s): M41.50 - OTHER SECONDARY SCOLIOSIS, SITE UNSPECIFIED SNOMED Code(s): 934830647 (5) H/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 Current Visit: No Status: Acute Code(s): Z95.3 - PRESENCE OF XENOGENIC HEART VALVE SNOMED Code(s): 999919451 (6) History of endovascular stent graft for abdominal aortic aneurysm (AAA) Current Visit: No Status: Acute Code(s): Z95.828 - PRESENCE OF OTHER VASCULAR IMPLANTS AND GRAFTS SNOMED Code(s): 505557668763146 (7) long-term current use of anticoagulant therapy Current Visit: No Status: Acute Code(s): Z79.01 - CUSTODIAL (CURRENT) USE OF ANTICOAGULANTS SNOMED Code(s): 610802425 (8) Mixed hyperlipidemia Current Visit: No Status: Acute Code(s): E78.2 - MIXED HYPERLIPIDEMIA SNOMED Code(s): 797893707 (9) persistent atrial fibrillation, rate controlled, maintained on anticoagu lation (10) Pulmonary hypertension Current Visit: No Status: Acute Code(s): I27.20 - PULMONARY HYPERTENSION, UNSPECIFIED SNOMED Code(s): 90656513 (11) Stage III chronic kidney disease Current Visit: No Status: Acute Code(s): N18.30 - CHRONIC KIDNEY DISEASE, STAGE 3 UNSPECIFIED SNOMED Code(s): 862926667 (12) Systolic congestive heart failure, possibly acute on chronic, with nonischemic cardiomyopathy Current Visit: No Status: Acute Code(s): I50.20 - UNSPECIFIED SYSTOLIC (CONGESTIVE) HEART FAILURE SNOMED Code(s): 58135742 Plan: Continue on current medication regimen ,monitoring and symptomatic treatment. Evaluated by pulmonary and nephrology with recommendations noted. Hypertonic 3% IV saline drip has been discontinued, close monitoring of sodium with with recheck in 4 hours. Diuretics and Entresto on hold. prognosis guarded given multiple complex medical issues. The impression and plan of care has been dictated as directed. : I performed a history and examination of this patient, discussed the same with the dictator. I agree with the dictator's note ,documented as a scribe. Any a dditional findings or plans will be noted.
[2023-05-02] MEDS ORDERED: AZITHROMYCIN 500 MG in SODIUM CHLORIDE 0.9% 250 ML IVPB SCH (18:00)
[2023-05-02] MEDS: MORPHINE SULFATE 4 MG/ML SYRINGE IV PRN (20:11)
[2023-05-02] MEDS: WARFARIN 1 MG TAB PO SCH (20:14)
[2023-05-02] MEDS: SODIUM CHLORIDE 3%(HYPERTONIC) 500 ML IV ONE (20:30)
[2023-05-03] MEDS: FUROSEMIDE 10 MG/ML 2 ML VIAL IV ONE (00:17)
[2023-05-03] MEDS: VASOPRESSIN 20 UNIT in SODIUM CHLORIDE 0.9% 50 ML IV SCH ×2 (01:07→09:04)
[2023-05-03] MEDS ORDERED: SODIUM CHLORIDE 0.9% 100 ML BAG ONE (02:40)
[2023-05-03] MEDS ORDERED: VASOPRESSIN 20 UNIT/ML 1 ML VIAL ONE (02:40)
[2023-05-03] MEDS: VASOPRESSIN 20 UNIT in SODIUM CHLORIDE 0.9% 100 ML IV SCH (05:13)
[2023-05-03 05:49] LABS: Basophils % (A) 1 %; Eosinophils # (A) 0.1 k/uL (0-0.7); Eosinophils % (A) 2 %; HCT 29.8 % (39.0-53.0); HGB 9.7 gm/dL (13.0-17.5); Lymphocytes # (A) 0.6 k/uL (1.0-4.8); Lymphocytes % (A) 8 %; MCH 29.9 pg (25.0-35.0); MCHC 32.5 g/dL (31.0-37.0); Monocytes # (A) 0.5 k/uL (0-1.0); Monocytes % (A) 7 %; Neutrophils # (A) 5.9 k/uL (1.3-7.7); Neutrophils % (A) 81 %; Platelet Count 289 k/uL (150-450); RBC 3.24 m/uL (4.30-5.90); RDW 14.3 % (11.5-15.5); WBC 7.2 k/uL (3.8-10.6)
[2023-05-03 05:57] LABS: African American GFR (CKD) 51 (>60 ml/min/1.73 sqM); Anion Gap 10 mmol/L; Blood Urea Nitrogen 40 mg/dL (9-20); Calcium 8.7 mg/dL (8.4-10.2); Carbon Dioxide 26 mmol/L (22-30); Chloride 86 mmol/L (98-107); Glucose 100 mg/dL (74-99); Magnesium 2.1 mg/dL (1.6-2.3); Non-African American GFR(CKD) 44 (>60 ml/min/1.73 sqM); Potassium 4.5 mmol/L (3.5-5.1); Sodium 122 mmol/L (137-145)
[2023-05-03 06:04] LABS: INR 2.9 (<1.2); Prothrombin Time 28.3 sec (10.0-12.5)
--- NOTE | 2023-05-03 08:36 | P.GSCN ---
History of Present Illness Consult date: 05/03/23 History of present illness: 83 yo male was brought into the hospital because of mental status changes due to hyponatremai and possible uti with sepsis. He has a chronic indwelling catheter that wasnt draining. We were asked to see the patient. The catheter has been replaced and now is draining. The sodium is slowly being corrected. He has multiple medical illnesses. He has been seen by in the past. Previous urodynamic studies show a hypotonic neurogenic bladder. The induration for neuromodulation was given but he was last seen here in September 2022. He a pparently has seen a urologist in [place], and something was to be done but the patient is not very clear about this. Review of Systems ROS unobtainable: due to mental status Past Medical History Past Medical History: Atrial Fibrillation, Heart Failure, COPD, GI Bleed, Hyperlipidemia, Pneumonia, Renal Disease, Skin Disorder, Vascular Disorder Additional Past Medical History / Comment(s): GI bleed, gastritis, gastric ectasia, CKD stage III, past abdominal aortic aneurysm/had stent placed, varicosities, PVD, past shingellis and occasionally will have R flank nerve pain, BPH. Covid 09/2022 History of Any Multi-Drug Resistant Organisms: MRSA Year Discovered:: 03/19/22 MDRO Source:: Urine Past Surgical History: Cardiac Valve Replacement, Cholecystectomy, Heart Catheterization Additional Past Surgical History / Comment(s): Stent placed for lower abd aortic aneurysym, mitral valve replacement/bicuspid repair, EGD with ablation, colonoscopy, excision L cheek lesion/mass and lesion from scalp/all benign, ZEPHER VALVE PLACED 2 YRS AGO AT [facility] Past Anesthesia/Blood Transfusion Reactions: No Reported Reaction Date of Last Stent Placement:: 2015 Past Psychological History: Anxiety Smoking Status: Former smoker Past Alcohol Use History: Occasional Past Drug Use History: None Reported - Past Family History Mother Family Medical History: Myocardial Infarction (PR) Additional Family Medical History / Comment(s): at a young age. Father Family Medical History: Hypertension Medications and Allergies Home Medications Medication Instructions Recorded Confirmed Type Fluticasone Propion/Salmeterol 1 puff INHALATION RT-BID 05/05/22 05/01/23 History [Wixela 100-50 Inhub] Sacubitril/Valsartan [Entresto 24 2 tab PO BID 05/05/22 05/01/23 History mg-26 mg Tablet] Sertraline [Zoloft] 50 mg PO DAILY 05/05/22 05/01/23 History Warfarin [Coumadin] 1 mg PO SUTUTHSA@209907/12/22 05/01/23 History Ipratropium-Albuterol Nebulize 3 ml INHALATION RT-QID PRN 08/30/22 05/01/23 History [Duoneb 0.5 mg-3 mg/3 ml Soln] Tamsulosin [Flomax] 0.4 mg PO DAILY 08/30/22 05/01/23 History Warfarin Sodium 4 mg PO MOWEFR@209908/30/22 05/01/23 History Bisoprolol [Zebeta] 5 mg PO DAILY 05/01/23 05/01/23 History Empagliflozin [Jardiance] 10 mg PO DAILY 05/01/23 05/01/23 History Furosemide [Lasix] 20 mg PO HS 05/01/23 05/01/23 History Furosemide [Lasix] 80 mg PO DAILY 05/01/23 05/01/23 History LORazepam [Ativan] 0.5 mg PO TID PRN 05/01/23 05/01/23 History Tiotropium 2.5 Mcg/Puff [Spiriva 2 puff INHALATION RT-DAILY 05/01/23 05/01/23 History Respimat 2.5 Mcg] predniSONE 2.5 mg PO DAILY 05/01/23 05/01/23 History Allergies Allergy/AdvReac Type Severity Reaction Status Date / Time empagliflozin Allergy Dyspnea Verified 05/01/23 19:25 [From Jardiance] iodine AdvReac Unknown Verified 05/01/23 19:25 Patches on chest Allergy Swelling, Uncoded 05/01/23 19:25 See Comment pain med (can't remember AdvReac Hallucinati Uncoded 05/01/23 19:25 name) ons Surgical - Exam Vital Signs Temp Pulse Resp BP Pulse Ox 97.9 F 82 38 H 128/75 99 05/01/23 14:57 05/01/23 14:57 05/01/23 14:57 05/01/23 14:57 05/01/23 14:57 - General well developed, well nourished - Eyes PERRL - ENT no hearing loss - Neck no masses - Respiratory normal expansion, normal respiratory effort - Cardiovascular Rhythm: regular - Abdomen Abdomen: soft, non tender - Genitourinary Indwelling catheter with clear urine - Neurologic confused Results - Labs 05/03/23 05:32 05/03/23 05:32 Abnormal Lab Results - Last 24 Hours (Table) 05/02/23 05/02/23 05/02/23 Range/Units 05:43 08:14 10:51 RBC (4.30-5.90) m/uL Hgb (13.0-17.5) gm/dL Hct (39.0-53.0) % Lymphocytes # (1.0-4.8) k/uL PT (10.0-12.5) sec INR (<1.2) ABG pH (7.35-7.45) ABG pCO2 (35-45) mmHg ABG pO2 (83-108) mmHg ABG HCO3 (21-25) mmol/L ABG Total CO2 (19-24) mmol/L ABG O2 Saturation (94-97) % Sodium 114 L* 115 L* 115 L* (137-145) mmol/L Chloride 80 L (98-107) mmol/L BUN 36 H (9-20) mg/dL Creatinine 1.31 H (0.66-1.25) mg/dL Glucose (74-99) mg/dL Magnesium 1.5 L (1.6-2.3) mg/dL Total Protein 5.3 L (6.3-8.2) g/dL Albumin 3.2 L (3.5-5.0) g/dL Ur Random Sodium (40-220) mmol/L 05/02/23 05/02/23 05/02/23 Range/Units 12:50 14:07 14:43 RBC (4.30-5.90) m/uL Hgb (13.0-17.5) gm/dL Hct (39.0-53.0) % Lymphocytes # (1.0-4.8) k/uL PT (10.0-12.5) sec INR (<1.2) ABG pH 7.34 L (7.35-7.45) ABG pCO2 52 H (35-45) mmHg ABG pO2 117 H (83-108) mmHg ABG HCO3 28 H (21-25) mmol/L ABG Total CO2 30 H (19-24) mmol/L ABG O2 Saturation 97.8 H (94-97) % Sodium 116 L* (137-145) mmol/L Chloride (98-107) mmol/L BUN (9-20) mg/dL Creatinine (0.66-1.25) mg/dL Glucose (74-99) mg/dL Magnesium (1.6-2.3) mg/dL Total Protein (6.3-8.2) g/dL Albumin (3.5-5.0) g/dL Ur Random Sodium <20 L (40-220) mmol/L 05/02/23 05/02/23 05/02/23 Range/Units 19:27 22:20 23:51 RBC (4.30-5.90) m/uL Hgb (13.0-17.5) gm/dL Hct (39.0-53.0) % Lymphocytes # (1.0-4.8) k/uL PT (10.0-12.5) sec INR (<1.2) ABG pH (7.35-7.45) ABG pCO2 (35-45) mmHg ABG pO2 (83-108) mmHg ABG HCO3 (21-25) mmol/L ABG Total CO2 (19-24) mmol/L ABG O2 Saturation (94-97) % Sodium 116 L* 115 L* 117 L* (137-145) mmol/L Chloride (98-107) mmol/L BUN (9-20) mg/dL Creatinine (0.66-1.25) mg/dL Glucose (74-99) mg/dL Magnesium (1.6-2.3) mg/dL Total Protein (6.3-8.2) g/dL Albumin (3.5-5.0) g/dL Ur Random Sodium (40-220) mmol/L 05/03/23 05/03/23 05/03/23 Range/Units 02:35 04:01 05:32 RBC (4.30-5.90) m/uL Hgb (13.0-17.5) gm/dL Hct (39.0-53.0) % Lymphocytes # (1.0-4.8) k/uL PT (10.0-12.5) sec INR (<1.2) ABG pH (7.35-7.45) ABG pCO2 (35-45) mmHg ABG pO2 (83-108) mmHg ABG HCO3 (21-25) mmol/L ABG Total CO2 (19-24) mmol/L ABG O2 Saturation (94-97) % Sodium 118 L* 121 L 122 L (137-145) mmol/L Chloride 86 L (98-107) mmol/L BUN 40 H (9-20) mg/dL Creatinine 1.46 H (0.66-1.25) mg/dL Glucose 100 H (74-99) mg/dL Magnesium (1.6-2.3) mg/dL Total Protein (6.3-8.2) g/dL Albumin (3.5-5.0) g/dL Ur Random Sodium (40-220) mmol/L 05/03/23 05/03/23 05/03/23 Range/Units 05:32 05:32 05:32 RBC 3.24 L (4.30-5.90) m/uL Hgb 9.7 L (13.0-17.5) gm/dL Hct 29.8 L (39.0-53.0) % Lymphocytes # 0.6 L (1.0-4.8) k/uL PT 28.3 H (10.0-12.5) sec INR 2.9 H (<1.2) ABG pH (7.35-7.45) ABG pCO2 (35-45) mmHg ABG pO2 (83-108) mmHg ABG HCO3 (21-25) mmol/L ABG Total CO2 (19-24) mmol/L ABG O2 Saturation (94-97) % Sodium 121 L (137-145) mmol/L Chloride (98-107) mmol/L BUN (9-20) mg/dL Creatinine (0.66-1.25) mg/dL Glucose (74-99) mg/dL Magnesium (1.6-2.3) mg/dL Total Protein (6.3-8.2) g/dL Albumin (3.5-5.0) g/dL Ur Random Sodium (40-220) mmol/L Microbiology - Last 24 Hours (Table) 05/01/23 17:00 Blood Culture - Preliminary Blood 05/01/23 17:15 Blood Culture - Preliminary Blood Diabetes panel 05/02/23 05/02/23 05/02/23 Range/Units 05:43 08:14 10:51 Sodium 114 L* 115 L* 115 L* (137-145) mmol/L Potassium 4.4 (3.5-5.1) mmol/L Chloride 80 L (98-107) mmol/L Carbon Dioxide 28 (22-30) mmol/L BUN 36 H (9-20) mg/dL Creatinine 1.31 H (0.66-1.25) mg/dL Glucose 81 (74-99) mg/dL Calcium 8.6 (8.4-10.2) mg/dL AST 31 (17-59) U/L ALT 16 (4-49) U/L Alkaline Phosphatase 54 (38-126) U/L Total Protein 5.3 L (6.3-8.2) g/dL Albumin 3.2 L (3.5-5.0) g/dL 05/02/23 05/02/23 05/02/23 Range/Units 14:43 19:27 22:20 Sodium 116 L* 116 L* 115 L* (137-145) mmol/L Potassium (3.5-5.1) mmol/L Chloride (98-107) mmol/L Carbon Dioxide (22-30) mmol/L BUN (9-20) mg/dL Creatinine (0.66-1.25) mg/dL Glucose (74-99) mg/dL Calcium (8.4-10.2) mg/dL AST (17-59) U/L ALT (4-49) U/L Alkaline Phosphatase (38-126) U/L Total Protein (6.3-8.2) g/dL Albumin (3.5-5.0) g/dL 05/02/23 05/03/23 05/03/23 Range/Units 23:51 02:35 04:01 Sodium 117 L* 118 L* 121 L (137-145) mmol/L Potassium (3.5-5.1) mmol/L Chloride (98-107) mmol/L Carbon Dioxide (22-30) mmol/L BUN (9-20) mg/dL Creatinine (0.66-1.25) mg/dL Glucose (74-99) mg/dL Calcium (8.4-10.2) mg/dL AST (17-59) U/L ALT (4-49) U/L Alkaline Phosphatase (38-126) U/L Total Protein (6.3-8.2) g/dL Albumin (3.5-5.0) g/dL 05/03/23 05/03/23 Range/Units 05:32 05:32 Sodium 122 L 121 L (137-145) mmol/L Potassium 4.5 (3.5-5.1) mmol/L Chloride 86 L (98-107) mmol/L Carbon Dioxide 26 (22-30) mmol/L BUN 40 H (9-20) mg/dL Creatinine 1.46 H (0.66-1.25) mg/dL Glucose 100 H (74-99) mg/dL Calcium 8.7 (8.4-10.2) mg/dL AST (17-59) U/L ALT (4-49) U/L Alkaline Phosphatase (38-126) U/L Total Protein (6.3-8.2) g/dL Albumin (3.5-5.0) g/dL Calcium panel 05/02/23 05/03/23 Range/Units 05:43 05:32 Calcium 8.6 8.7 (8.4-10.2) mg/dL Phosphorus 2.9 (2.5-4.5) mg/dL Albumin 3.2 L (3.5-5.0) g/dL Pituitary panel 05/02/23 05/02/23 05/02/23 Range/Units 05:43 08:14 10:51 Sodium 114 L* 115 L* 115 L* (137-145) mmol/L Potassium 4.4 (3.5-5.1) mmol/L Chloride 80 L (98-107) mmol/L Carbon Dioxide 28 (22-30) mmol/L BUN 36 H (9-20) mg/dL Creatinine 1.31 H (0.66-1.25) mg/dL Glucose 81 (74-99) mg/dL Calcium 8.6 (8.4-10.2) mg/dL 05/02/23 05/02/23 05/02/23 Range/Units 14:43 19:27 22:20 Sodium 116 L* 116 L* 115 L* (137-145) mmol/L Potassium (3.5-5.1) mmol/L Chloride (98-107) mmol/L Carbon Dioxide (22-30) mmol/L BUN (9-20) mg/dL Creatinine (0.66-1.25) mg/dL Glucose (74-99) mg/dL Calcium (8.4-10.2) mg/dL 05/02/23 05/03/23 05/03/23 Range/Units 23:51 02:35 04:01 Sodium 117 L* 118 L* 121 L (137-145) mmol/L Potassium (3.5-5.1) mmol/L Chloride (98-107) mmol/L Carbon Dioxide (22-30) mmol/L BUN (9-20) mg/dL Creatinine (0.66-1.25) mg/dL Glucose (74-99) mg/dL Calcium (8.4-10.2) mg/dL 05/03/23 05/03/23 Range/Units 05:32 05:32 Sodium 122 L 121 L (137-145) mmol/L Potassium 4.5 (3.5-5.1) mmol/L Chloride 86 L (98-107) mmol/L Carbon Dioxide 26 (22-30) mmol/L BUN 40 H (9-20) mg/dL Creatinine 1.46 H (0.66-1.25) mg/dL Glucose 100 H (74-99) mg/dL Calcium 8.7 (8.4-10.2) mg/dL Adrenal panel 05/02/23 05/02/23 05/02/23 Range/Units 05:43 08:14 10:51 Sodium 114 L* 115 L* 115 L* (137-145) mmol/L Potassium 4.4 (3.5-5.1) mmol/L Chloride 80 L (98-107) mmol/L Carbon Dioxide 28 (22-30) mmol/L BUN 36 H (9-20) mg/dL Creatinine 1.31 H (0.66-1.25) mg/dL Glucose 81 (74-99) mg/dL Calcium 8.6 (8.4-10.2) mg/dL Total Bilirubin 0.5 (0.2-1.3) mg/dL AST 31 (17-59) U/L ALT 16 (4-49) U/L Alkaline Phosphatase 54 (38-126) U/L Total Protein 5.3 L (6.3-8.2) g/dL Albumin 3.2 L (3.5-5.0) g/dL 05/02/23 05/02/23 05/02/23 Range/Units 14:43 19:27 22:20 Sodium 116 L* 116 L* 115 L* (137-145) mmol/L Potassium (3.5-5.1) mmol/L Chloride (98-107) mmol/L Carbon Dioxide (22-30) mmol/L BUN (9-20) mg/dL Creatinine (0.66-1.25) mg/dL Glucose (74-99) mg/dL Calcium (8.4-10.2) mg/dL Total Bilirubin (0.2-1.3) mg/dL AST (17-59) U/L ALT (4-49) U/L Alkaline Phosphatase (38-126) U/L Total Protein (6.3-8.2) g/dL Albumin (3.5-5.0) g/dL 05/02/23 05/03/23 05/03/23 Range/Units 23:51 02:35 04:01 Sodium 117 L* 118 L* 121 L (137-145) mmol/L Potassium (3.5-5.1) mmol/L Chloride (98-107) mmol/L Carbon Dioxide (22-30) mmol/L BUN (9-20) mg/dL Creatinine (0.66-1.25) mg/dL Glucose (74-99) mg/dL Calcium (8.4-10.2) mg/dL Total Bilirubin (0.2-1.3) mg/dL AST (17-59) U/L ALT (4-49) U/L Alkaline Phosphatase (38-126) U/L Total Protein (6.3-8.2) g/dL Albumin (3.5-5.0) g/dL 05/03/23 05/03/23 Range/Units 05:32 05:32 Sodium 122 L 121 L (137-145) mmol/L Potassium 4.5 (3.5-5.1) mmol/L Chloride 86 L (98-107) mmol/L Carbon Dioxide 26 (22-30) mmol/L BUN 40 H (9-20) mg/dL Creatinine 1.46 H (0.66-1.25) mg/dL Glucose 100 H (74-99) mg/dL Calcium 8.7 (8.4-10.2) mg/dL Total Bilirubin (0.2-1.3) mg/dL AST (17-59) U/L ALT (4-49) U/L Alkaline Phosphatase (38-126) U/L Total Protein (6.3-8.2) g/dL Albumin (3.5-5.0) g/dL Assessment and Plan Assessment: Impression: Hyponatremia. Possible urinary tract infection with sepsis. Catheter malfunction corrected. Total medical illnesses. Recommendations: From a urologic standpoint nothing else will be done during this hospitalization. As mentioned in my consult he may be seen a urologist in [place] for further evaluation and/or treatment of the urine retention.
[2023-05-03] MEDS: FUROSEMIDE 10 MG/ML 2 ML VIAL IV SCH (09:29)
--- NOTE | 2023-05-03 09:46 | P.PN ---
Subjective Patient is seen in follow-up for hyponatremia. Sodium level 123 this morning. Urine output improved post IV Lasix given last night. Currently off 3%. Oral intake fair. On Levophed and vasopressin. Vital signs are stable. On vasopressor support. General: No acute distress. HEENT: Head exam is unremarkable. On nasal cannula. LUNGS: Scattered rhonchi. HEART: Rate and Rhythm are regular. ABDOMEN: Nontender. EXTREMITITES: No edema. Objective - Vital Signs Vital signs: Vital Signs Temp 98.3 F 05/03/23 04:00 Pulse 84 05/03/23 08:41 Resp 24 05/03/23 07:00 BP 96/55 05/03/23 07:00 Pulse Ox 96 05/03/23 07:00 FiO2 Intake & Output 05/02/23 05/03/23 05/03/23 18:59 06:59 18:59 Intake Total 373.093 651.890 6.798 Output Total 400 870 Balance -26.907 -218.110 6.798 Intake: IV 280 300 Magnesium Sulfate-D5w Pmx 200 1 gm In Dextrose/Water 1 100ml.bag @ 100 mls/hr IVPB Q1H [facility] Rx#: [id number] Sodium Chloride 3%( 30 300 Hypertonic) 500 ml @ 30 mls/hr IV .[id number] [facility] Rx #:[id number] cefTRIAXone 2 gm In 50 Sodium Chloride 0.9% 50 ml @ 100 mls/hr IVPB Q24HR [facility] Rx#:[id number] Intake, IV Titration 93.093 351.890 6.798 Amount Norepinephrine 4 mg In 93.093 350.897 6.798 Sodium Chloride 0.9% 250 ml @ 0.03 MCG/KG/MIN 6. 118 mls/hr IV .Q24H [facility] Rx#:[id number] Vasopressin 20 unit In 0.152 Sodium Chloride 0.9% 100 ml @ 0.03 UNITS/MIN 9.09 mls/hr IV .Q11H7M [facility] Rx# :[id number] Vasopressin 20 unit In 0.841 Sodium Chloride 0.9% 50 ml @ 0.03 UNITS/MIN 4.59 mls/hr IV .Q11H7M [facility] Rx# :[id number] Output: Urine 400 870 - Labs CBC & Chem 7: 05/03/23 05:32 05/03/23 08:27 Labs: Abnormal Lab Results - Last 24 Hours (Table) 05/02/23 05/02/23 05/02/23 Range/Units 10:51 12:50 14:07 RBC (4.30-5.90) m/uL Hgb (13.0-17.5) gm/dL Hct (39.0-53.0) % Lymphocytes # (1.0-4.8) k/uL PT (10.0-12.5) sec INR (<1.2) ABG pH 7.34 L (7.35-7.45) ABG pCO2 52 H (35-45) mmHg ABG pO2 117 H (83-108) mmHg ABG HCO3 28 H (21-25) mmol/L ABG Total CO2 30 H (19-24) mmol/L ABG O2 Saturation 97.8 H (94-97) % Sodium 115 L* (137-145) mmol/L Chloride (98-107) mmol/L BUN (9-20) mg/dL Creatinine (0.66-1.25) mg/dL Glucose (74-99) mg/dL Ur Random Sodium <20 L (40-220) mmol/L 05/02/23 05/02/23 05/02/23 Range/Units 14:43 19:27 22:20 RBC (4.30-5.90) m/uL Hgb (13.0-17.5) gm/dL Hct (39.0-53.0) % Lymphocytes # (1.0-4.8) k/uL PT (10.0-12.5) sec INR (<1.2) ABG pH (7.35-7.45) ABG pCO2 (35-45) mmHg ABG pO2 (83-108) mmHg ABG HCO3 (21-25) mmol/L ABG Total CO2 (19-24) mmol/L ABG O2 Saturation (94-97) % Sodium 116 L* 116 L* 115 L* (137-145) mmol/L Chloride (98-107) mmol/L BUN (9-20) mg/dL Creatinine (0.66-1.25) mg/dL Glucose (74-99) mg/dL Ur Random Sodium (40-220) mmol/L 05/02/23 05/03/23 05/03/23 Range/Units 23:51 02:35 04:01 RBC (4.30-5.90) m/uL Hgb (13.0-17.5) gm/dL Hct (39.0-53.0) % Lymphocytes # (1.0-4.8) k/uL PT (10.0-12.5) sec INR (<1.2) ABG pH (7.35-7.45) ABG pCO2 (35-45) mmHg ABG pO2 (83-108) mmHg ABG HCO3 (21-25) mmol/L ABG Total CO2 (19-24) mmol/L ABG O2 Saturation (94-97) % Sodium 117 L* 118 L* 121 L (137-145) mmol/L Chloride (98-107) mmol/L BUN (9-20) mg/dL Creatinine (0.66-1.25) mg/dL Glucose (74-99) mg/dL Ur Random Sodium (40-220) mmol/L 05/03/23 05/03/23 05/03/23 Range/Units 05:32 05:32 05:32 RBC (4.30-5.90) m/uL Hgb (13.0-17.5) gm/dL Hct (39.0-53.0) % Lymphocytes # (1.0-4.8) k/uL PT 28.3 H (10.0-12.5) sec INR 2.9 H (<1.2) ABG pH (7.35-7.45) ABG pCO2 (35-45) mmHg ABG pO2 (83-108) mmHg ABG HCO3 (21-25) mmol/L ABG Total CO2 (19-24) mmol/L ABG O2 Saturation (94-97) % Sodium 122 L 121 L (137-145) mmol/L Chloride 86 L (98-107) mmol/L BUN 40 H (9-20) mg/dL Creatinine 1.46 H (0.66-1.25) mg/dL Glucose 100 H (74-99) mg/dL Ur Random Sodium (40-220) mmol/L 05/03/23 05/03/23 Range/Units 05:32 08:27 RBC 3.24 L (4.30-5.90) m/uL Hgb 9.7 L (13.0-17.5) gm/dL Hct 29.8 L (39.0-53.0) % Lymphocytes # 0.6 L (1.0-4.8) k/uL PT (10.0-12.5) sec INR (<1.2) ABG pH (7.35-7.45) ABG pCO2 (35-45) mmHg ABG pO2 (83-108) mmHg ABG HCO3 (21-25) mmol/L ABG Total CO2 (19-24) mmol/L ABG O2 Saturation (94-97) % Sodium 123 L (137-145) mmol/L Chloride (98-107) mmol/L BUN (9-20) mg/dL Creatinine (0.66-1.25) mg/dL Glucose (74-99) mg/dL Ur Random Sodium (40-220) mmol/L Microbiology - Last 24 Hours (Table) 05/01/23 17:00 Blood Culture - Preliminary Blood 05/01/23 17:15 Blood Culture - Preliminary Blood Assessment and Plan Plan: Assessment: 1. Acute kidney injury secondary to ATN secondary to obstructive uropathy. Creatinine 1.46 today. Creatinine 0.92 in September 2022. 2. Hyponatremia secondary to urinary retention and excess fluid intake. Was also on Lasix outpatient. Now hypervolemic. Urine osmolality 207. Urine sodium less than 20. Cortisol level not low. TSH normal. 3. Chronic systolic CHF with ejection fraction of 25 to 30%. 4. Recent bladder surgery status post Felder catheter insertion and subsequent removal. Felder catheter had to be reinserted this admission due to retention. 5. Urinary retention. Has Felder catheter. On Flomax. 6. Hypomagnesemia from poor intake. Replaced. Better. 7. Septic shock. Pneumonia versus UTI. On antibiotics. On Levophed and vasopressin. Plan: Maintain off IV fluids. Encouraged oral intake. Add 1500 cc fluid restriction. Add IV Lasix 20 mg twice daily. Goal rate of sodium correction 6-7 mmol/L per 24 hrs. Repeat sodium level at noon. Check chest x-ray.
[2023-05-03 10:55] VITALS: BMI 19.0
--- NOTE | 2023-05-03 13:38 | XR ---
EXAMINATION TYPE: XR chest 1V portable DATE OF EXAM: 05/03/2023 12:26 PM CLINICAL INDICATION:Male, 83 years old with history of pulm edema; COMPARISON: Chest radiographs from 04/23/2023. TECHNIQUE: XR chest 1V portable Frontal view of the chest. FINDINGS: Lungs/Pleura: Hyperaeration of the lung bases. Increased lucency in the lung apices with flattening o f the diaphragm.. No evidence of focal consolidation, pneumothorax or pleural effusion. Pulmonary vascularity: Proved basilar airspace opacities/pulmonary vascular congestion. Heart/mediastinum: Cardiomediastinal silhouette is prominent in size. Post valve repair changes. Musculoskeletal: No acute osseous pathology. IMPRESSION: 1. Improved aeration of lungs particularly at the lung bases.. 2. COPD changes.
--- NOTE | 2023-05-03 14:13 | P.PN ---
Subjective Progress Note Date: 05/03/23 This is a 83-year-old male patient with multiple medical problems and comorbidities. The patient came into the emergency department because of diminished level of consciousness and some confusions and the patient was found to be profoundly hyponatremic and subsequently the patient was moved to the intensive care for management of hyponatremia. His sodium level was 108 and the chloride was 72. He had a BUN of 43 with a creatinine of 1.35 knowing that the patient has a normal baseline creatinine of 0.9 from 09/06/2022. Note that the patient has multiple medical problems and comorbidities. The patient was given a Felder catheter for obstructive uropathy and BPH. However, he was unable to urinate. He came into the emergency department and Felder catheter was essentially removed. In the emergency, he was found to be confused. He denies having any shortness of breath. He had trace edema lower extremities bilaterally. The Felder catheter was reinserted and the patient was able to produce urine output and the patient has been making urine for now. UA was checked and the patient was found to have elevated white cell count of 37 with a +2 glucose and a moderate amount of blood and 4 WBCs. His initial troponin was at 0.98. CPK was 73. 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 The patient is breathing comfortably and the patient is currently at 4 L of oxygen by nasal cannula with a pulse ox of 99%. His most recent blood pressure is 97/57. In terms of his previous medical problems and comorbidities, they are quite extensive. The patient has advanced COPD and he has been oxygen dependent somewhere between 3 and 4 L of oxygen by nasal cannula. He also has chronic systolic heart failure with an ejection fraction of 25 to 30% and he has undergone previous mitral valve replacement at [facility] back in 2015 and repair of a bicuspid aortic valve. He also has an abdominal aortic aneurysm for which she has undergone endovascular static grafting. He has chronic A-fib maintained on anticoagulation with warfarin and he has h hyperlipidemia and stage III chronic kidney disease although most recent creatinine based on our records has been within normal limits. He has BPH, peripheral vascular disease in addition. On today's evaluation of 05/02/2023, the patient is being seen for a follow-up. His confusion is somewhat improved although the patient is on and off found to be altered neurologically. Noted the patient presented to us with severe hyponatremia and his sodium level was as low as 108. The patient was started on hypertonic saline and the morning sodium level came at 114. At that point, the hypertonic saline was discontinued. The patient is currently on KVO IV fluids. He also required some pressors and the patient is on low-dose norepinephrine at 0.07 mcg/kg/min. Overall fluid balance over the past 24 hours has been +931 cc. Urine output is adequate in the order of 60 to 70 cc. Blood work from today shows a white cell count of 7.4 with a hemoglobin 9.9 and a platelet count of 227. The BUN is at 36 with a creatinine of 1.3 and the rest of the electrolytes show a potassium level of 4.4, chloride is up to 80 and liver function tests are essentially within normal limits. Felder catheter was inserted. Urine culture still pending. The patient remains on IV Rocephin. Zithromax will be discontinued. INR therapeutic at 2.2 and the patient continues to be on warfarin. No focal neurological deficits. No headaches. On today's evaluation of 05/03/2023, the patient is being seen for a follow-up. The patient remains somewhat confused yet he is pleasant he has no reported agitation. Note that the patient sodium level gradually improved and the patient sodium level is currently up to 121. BUN is at 40 with a creatinine of 1.46. The patient is also on low-dose norepinephrine for blood pressure support which is running at 0.09 mcg/kg/min. The IV fluids are currently at KVO. The patient was seen by nephrology and the patient was started on gentle diuresis with IV Lasix 20 mg IV push every 12 hours. The patient is calm and comfortable. He is currently on oxygen at 4 L/min nasal cannula. He has advanced COPD and continues to have ongoing bronchospasm and wheezing. Nevertheless, there is no significant respiratory distress. He remains on anticoagulation with warfarin. INR is at 2.9. BUN is at 40 with a creatinine of 1.4 and a potassium level is at 4.5. WBC count 7.2 with a hemoglobin 9.7 and a platelet count of 289. Remains on IV Rocephin as an empiric antibiotic coverage. Remains on a prednisone maintenance of 2.5 mg p.o. daily. Felder catheter is in place and the patient has obstructive uropathy. The patient is also on Flomax. No other significant events overnight Objective - Vital Signs Vital signs: Vital Signs Temp 98.1 F 05/03/23 12:00 Pulse 86 05/03/23 12:52 Resp 18 05/03/23 12:15 BP 103/70 05/03/23 12:15 Pulse Ox 94 L 05/03/23 12:15 FiO2 Intake & Output 05/02/23 05/03/23 05/03/23 18:59 06:59 18:59 Intake Total 373.093 651.890 106.798 Output Total 400 870 534 Balance -26.907 -218.110 -427.202 Weight 58.4 kg Intake: IV 280 300 100 Magnesium Sulfate-D5w Pmx 200 1 gm In Dextrose/Water 1 100ml.bag @ 100 mls/hr IVPB Q1H [facility] Rx#: [id number] Sodium Chloride 3%( 30 300 Hypertonic) 500 ml @ 30 mls/hr IV .[id number] [facility] Rx #:[id number] cefTRIAXone 2 gm In 50 100 Sodium Chloride 0.9% 50 ml @ 100 mls/hr IVPB Q24HR [facility] Rx#:[id number] Intake, IV Titration 93.093 351.890 6.798 Amount Norepinephrine 4 mg In 93.093 350.897 6.798 Sodium Chloride 0.9% 250 ml @ 0.03 MCG/KG/MIN 6. 118 mls/hr IV .Q24H [facility] Rx#:[id number] Vasopressin 20 unit In 0.152 Sodium Chloride 0.9% 100 ml @ 0.03 UNITS/MIN 9.09 mls/hr IV .Q11H7M [facility] Rx# :[id number] Vasopressin 20 unit In 0.841 Sodium Chloride 0.9% 50 ml @ 0.03 UNITS/MIN 4.59 mls/hr IV .Q11H7M [facility] Rx# :[id number] Output: Urine 400 870 534 Other: Voiding Method Indwelling Catheter - Exam GENERAL EXAM: Alert, very pleasant 82-year-old male, on 4 L nasal cannula, comfortable in no apparent distress. HEAD: Normocephalic. EYES: Normal reaction of pupils, equal size. NOSE: Clear with pink turbinates. THROAT: No erythema or exudates. NECK: No masses, no JVD. CHEST: No chest wall deformity. LUNGS: Equal air entry with faint crackles in the posterior bases. The patient also has few crackles in lung bases bilaterally along with scattered expiratory wheeze CVS: Irregular S1 and S2 normal with no audible murmur, irregular rhythm. ABDOMEN: No hepatosplenomegaly, normal bowel sounds, no guarding or rigidity. SPINE: No scoliosis or deformity SKIN: No rashes CENTRAL NERVOUS SYSTEM: No focal deficits, tone is normal in all 4 extremities. EXTREMITIES: There is no peripheral edema. No clubbing, no cyanosis. Peripheral pulses are intact. Mental status is fluctuating and the patient is awake x 1-2. Neurologic exam is nonfocal and the patient is moving all 4 extremities without any limitation. Pupils are equal reactive to light. No seizure activity. - Labs CBC & Chem 7: 05/03/23 05:32 05/03/23 12:07 Labs: Abnormal Lab Results - Last 24 Hours (Table) 05/02/23 05/02/23 05/02/23 Range/Units 12:50 14:07 14:43 RBC (4.30-5.90) m/uL Hgb (13.0-17.5) gm/dL Hct (39.0-53.0) % Lymphocytes # (1.0-4.8) k/uL PT (10.0-12.5) sec INR (<1.2) ABG pH 7.34 L (7.35-7.45) ABG pCO2 52 H (35-45) mmHg ABG pO2 117 H (83-108) mmHg ABG HCO3 28 H (21-25) mmol/L ABG Total CO2 30 H (19-24) mmol/L ABG O2 Saturation 97.8 H (94-97) % Sodium 116 L* (137-145) mmol/L Chloride (98-107) mmol/L BUN (9-20) mg/dL Creatinine (0.66-1.25) mg/dL Glucose (74-99) mg/dL Ur Random Sodium <20 L (40-220) mmol/L 05/02/23 05/02/23 05/02/23 Range/Units 19:27 22:20 23:51 RBC (4.30-5.90) m/uL Hgb (13.0-17.5) gm/dL Hct (39.0-53.0) % Lymphocytes # (1.0-4.8) k/uL PT (10.0-12.5) sec INR (<1.2) ABG pH (7.35-7.45) ABG pCO2 (35-45) mmHg ABG pO2 (83-108) mmHg ABG HCO3 (21-25) mmol/L ABG Total CO2 (19-24) mmol/L ABG O2 Saturation (94-97) % Sodium 116 L* 115 L* 117 L* (137-145) mmol/L Chloride (98-107) mmol/L BUN (9-20) mg/dL Creatinine (0.66-1.25) mg/dL Glucose (74-99) mg/dL Ur Random Sodium (40-220) mmol/L 05/03/23 05/03/23 05/03/23 Range/Units 02:35 04:01 05:32 RBC (4.30-5.90) m/uL Hgb (13.0-17.5) gm/dL Hct (39.0-53.0) % Lymphocytes # (1.0-4.8) k/uL PT (10.0-12.5) sec INR (<1.2) ABG pH (7.35-7.45) ABG pCO2 (35-45) mmHg ABG pO2 (83-108) mmHg ABG HCO3 (21-25) mmol/L ABG Total CO2 (19-24) mmol/L ABG O2 Saturation (94-97) % Sodium 118 L* 121 L 122 L (137-145) mmol/L Chloride 86 L (98-107) mmol/L BUN 40 H (9-20) mg/dL Creatinine 1.46 H (0.66-1.25) mg/dL Glucose 100 H (74-99) mg/dL Ur Random Sodium (40-220) mmol/L 05/03/23 05/03/23 05/03/23 Range/Units 05:32 05:32 05:32 RBC 3.24 L (4.30-5.90) m/uL Hgb 9.7 L (13.0-17.5) gm/dL Hct 29.8 L (39.0-53.0) % Lymphocytes # 0.6 L (1.0-4.8) k/uL PT 28.3 H (10.0-12.5) sec INR 2.9 H (<1.2) ABG pH (7.35-7.45) ABG pCO2 (35-45) mmHg ABG pO2 (83-108) mmHg ABG HCO3 (21-25) mmol/L ABG Total CO2 (19-24) mmol/L ABG O2 Saturation (94-97) % Sodium 121 L (137-145) mmol/L Chloride (98-107) mmol/L BUN (9-20) mg/dL Creatinine (0.66-1.25) mg/dL Glucose (74-99) mg/dL Ur Random Sodium (40-220) mmol/L 05/03/23 05/03/23 Range/Units 08:27 12:07 RBC (4.30-5.90) m/uL Hgb (13.0-17.5) gm/dL Hct (39.0-53.0) % Lymphocytes # (1.0-4.8) k/uL PT (10.0-12.5) sec INR (<1.2) ABG pH (7.35-7.45) ABG pCO2 (35-45) mmHg ABG pO2 (83-108) mmHg ABG HCO3 (21-25) mmol/L ABG Total CO2 (19-24) mmol/L ABG O2 Saturation (94-97) % Sodium 123 L 121 L (137-145) mmol/L Chloride (98-107) mmol/L BUN (9-20) mg/dL Creatinine (0.66-1.25) mg/dL Glucose (74-99) mg/dL Ur Random Sodium (40-220) mmol/L Microbiology - Last 24 Hours (Table) 05/01/23 17:00 Blood Culture - Preliminary Blood 05/01/23 17:15 Blood Culture - Preliminary Blood Assessment and Plan Plan: Acute hypochloremic hyponatremia, probably due to obstructive uropathy. Sodium level continues to improve. The patient was started also on gentle diuresis with Lasix 20 mg IV every 12 hours. Most recent sodium level is up to 121. Altered mentation, gradually improving. The patient continues to have some degree of confusion although he is pleasant and he is not agitated at this point in time Hypotension, currently on low-dose norepinephrine. Exact cause for the underlying hypotension is not clear. We supported the patient's blood pressure with low-dose norepinephrine. Entresto and beta-blockers have been discontinued as the patient was taking bisoprolol on an outpatient basis. Rule out drug- induced hypotension along with a component of cardiogenic hypotension as the patient has impaired LV function with an ejection fraction of 25%. For now, the patient remains on norepinephrine at 0.09 mcg/kg/min. Obstructive uropathy and the patient has a Felder catheter in place. This is att ributed to BPH. Transrectal ultrasound the prostate showed no nodules or lesions. Baseline PSA is not known. Advanced COPD with upper lobe predominance with bullous emphysematous changes bilaterally. Chronic hypoxic respiratory failure and the patient has been maintained on oxygen 4 L nasal cannula Systolic heart failure with an EF of around 25 to 30% History of valvular heart disease with previous repair of the bicuspid aortic valve and mitral valve replacement that was done [facility] back in 2014 Chronic A-fib maintained on anticoagulation Chronic stage III kidney disease although the most recent creatinine has been essentially within normal limits. His renal function has been fluctuating Previous history of GI bleed Hyperlipidemia Abdominal aortic aneurysm status post endovascular stent grafting Previous history of COVID-19 infection back in September 2022 Previous history of shingles Peripheral vascular disease Recurrent urine tract infection the patient has a Felder catheter in place. UA is abnormal. Awaiting final cultures. The patient is currently on IV Rocephin Plan Keep the patient in the intensive care unit Monitor mental status Continue Lasix and monitor sodium level Monitor hypotension and continue low-dose \norepinephrine\for blood pressure support Monitor renal function, nephrology on the case Continue anticoagulation with warfarin and monitor the PT/INR. Most recent INR is at 2. 9 and the patient is being anticoagulated for chronic A-fib. Hold Entresto for now Hold tiotropium for now as the patient is having urinary retention. Hold bisoprolol as long as the patient remains on pressors Continue maintenance prednisone of 2.5 mg p.o. on a daily basis Continue IV Rocephin Will continue to follow. The patient be kept in the ICU for now.
[2023-05-03] MEDS: WARFARIN 1 MG TAB PO ONE (19:57)
[2023-05-04 04:40] LABS: Basophils % (A) 0 %; Eosinophils # (A) 0.1 k/uL (0-0.7); Eosinophils % (A) 2 %; HCT 28.7 % (39.0-53.0); HGB 9.5 gm/dL (13.0-17.5); Lymphocytes # (A) 0.5 k/uL (1.0-4.8); Lymphocytes % (A) 9 %; MCH 30.3 pg (25.0-35.0); MCV 91.7 fL (80.0-100.0); Mean Platelet Volume 7.8; Monocytes # (A) 0.4 k/uL (0-1.0); Monocytes % (A) 7 %; Neutrophils # (A) 4.8 k/uL (1.3-7.7); Neutrophils % (A) 79 %; Platelet Count 280 k/uL (150-450); RBC 3.12 m/uL (4.30-5.90); RDW 14.6 % (11.5-15.5); WBC 6.2 k/uL (3.8-10.6)
[2023-05-04 04:47] LABS: INR 2.9 (<1.2)
[2023-05-04 04:51] LABS: African American GFR (CKD) 71 (>60 ml/min/1.73 sqM); Anion Gap 1 mmol/L; Blood Urea Nitrogen 42 mg/dL (9-20); Carbon Dioxide 33 mmol/L (22-30); Chloride 92 mmol/L (98-107); Glucose 118 mg/dL (74-99); Non-African American GFR(CKD) 62 (>60 ml/min/1.73 sqM); Sodium 126 mmol/L (137-145)
--- NOTE | 2023-05-04 08:50 | P.PN ---
Subjective Progress Note Date: 05/04/23 This is a 83-year-old male patient with multiple medical problems and comorbidities. The patient came into the emergency department because of diminished level of consciousness and some confusions and the patient was found to be profoundly hyponatremic and subsequently the patient was moved to the intensive care for management of hyponatremia. His sodium level was 108 and the chloride was 72. He had a BUN of 43 with a creatinine of 1.35 knowing that the patient has a normal baseline creatinine of 0.9 from 09/06/2022. Note that the patient has multiple medical problems and comorbidities. The patient was given a Felder catheter for obstructive uropathy and BPH. However, he was unable to urinate. He came into the emergency department and Felder catheter was essentially removed. In the emergency, he was found to be confused. He denies having any shortness of breath. He had trace edema lower extremities bilaterally. The Fleder catheter was reinserted and the patient was able to produce urine output and the patient has been making urine for now. UA was checked and the patient was found to have elevated white cell count of 37 with a +2 glucose and a moderate amount of blood and 4 WBCs. His initial troponin was at 0.98. CPK was 73. 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 The patient is breathing comfortably and the patient is currently at 4 L of oxygen by nasal cannula with a pulse ox of 99%. His most recent blood pressure is 97/57. In terms of his previous medical problems and comorbidities, they are quite extensive. The patient has advanced COPD and he has been oxygen dependent somewhere between 3 and 4 L of oxygen by nasal cannula. He also has chronic systolic heart failure with an ejection fraction of 25 to 30% and he has undergone previous mitral valve replacement at [facility] back in 2015 and repair of a bicuspid aortic valve. He also has an abdominal aortic aneurysm for which she has undergone endovascular static grafting. He has chronic A-fib maintained on anticoagulation with warfarin and he has h hyperlipidemia and stage III chronic kidney disease although most recent creatinine based on our records has been within normal limits. He has BPH, peripheral vascular disease in addition. On today's evaluation of 05/02/2023, the patient is being seen for a follow-up. His confusion is somewhat improved although the patient is on and off found to be altered neurologically. Noted the patient presented to us with severe hyponatremia and his sodium level was as low as 108. The patient was started on hypertonic saline and the morning sodium level came at 114. At that point, the hypertonic saline was discontinued. The patient is currently on KVO IV fluids. He also required some pressors and the patient is on low-dose norepinephrine at 0.07 mcg/kg/min. Overall fluid balance over the past 24 hours has been +931 cc. Urine output is adequate in the order of 60 to 70 cc. Blood work from today shows a white cell count of 7.4 with a hemoglobin 9.9 and a platelet count of 227. The BUN is at 36 with a creatinine of 1.3 and the rest of the electrolytes show a potassium level of 4.4, chloride is up to 80 and liver function tests are essentially within normal limits. Felder catheter was inserted. Urine culture still pending. The patient remains on IV Rocephin. Zithromax will be discontinued. INR therapeutic at 2.2 and the patient continues to be on warfarin. No focal neurological deficits. No headaches. On today's evaluation of 05/03/2023, the patient is being seen for a follow-up. The patient remains somewhat confused yet he is pleasant he has no reported agitation. Note that the patient sodium level gradually improved and the patient sodium level is currently up to 121. BUN is at 40 with a creatinine of 1.46. The patient is also on low-dose norepinephrine for blood pressure support which is running at 0.09 mcg/kg/min. The IV fluids are currently at KVO. The patient was seen by nephrology and the patient was started on gentle diuresis with IV Lasix 20 mg IV push every 12 hours. The patient is calm and comfortable. He is currently on oxygen at 4 L/min nasal cannula. He has advanced COPD and continues to have ongoing bronchospasm and wheezing. Nevertheless, there is no significant respiratory distress. He remains on anticoagulation with warfarin. INR is at 2.9. BUN is at 40 with a creatinine of 1.4 and a potassium level is at 4.5. WBC count 7.2 with a hemoglobin 9.7 and a platelet count of 289. Remains on IV Rocephin as an empiric antibiotic coverage. Remains on a prednisone maintenance of 2.5 mg p.o. daily. Felder catheter is in place and the patient has obstructive uropathy. The patient is also on Flomax. No other significant events overnight On 05/04/2023, the patient is less confused. Answering questions more appropriately. His sodium level gradually improved and currently is up to 126. Potassium is at 4, BUN is 42 with a creatinine 1.1. No focal neurological deficit. Diuretics was also started yesterday by nephrology and the patient was started on Lasix 20 mg IV every 12 hours. His fluid balance has been -1.2 L over the past 24 hours and the patient is producing adequate amount of urine output. Cardiac rhythm is A-fib. The patient has an INR of 2.9. Hemoglobin is at 9.5 with a WBC count of 6.2. He remains on oxygen at 2 L with a pulse ox of 99%. No signs of any respiratory distress. No focal neurological deficits. The patient has a Felder catheter in place. The patient is on IV Rocephin as an empiric antibiotic coverage. Blood cultures have been negative. At the same time, the patient is running on norepinephrine which is being titrated and I am hoping to wean it off and discontinued today. His current norepinephrine is running at 0.11 mcg/kg/min. Objective - Vital Signs Vital signs: Vital Signs Temp 97.6 F 05/04/23 04:00 Pulse 85 05/04/23 07:15 Resp 23 05/04/23 07:15 BP 102/55 05/04/23 07:15 Pulse Ox 95 05/04/23 07:15 FiO2 Intake & Output 05/03/23 05/04/23 05/04/23 18:59 06:59 18:59 Intake Total 327.116 474.000 20 Output Total 969 1095 40 Balance -641.884 -621.000 -20 Weight 58.4 kg 58.7 kg Intake: IV 100 220 20 0.9 KVO 220 20 cefTRIAXone 2 gm In 100 Sodium Chloride 0.9% 50 ml @ 100 mls/hr IVPB Q24HR [facility] Rx#:[id number] Intake, IV Titration 227.116 254.000 Amount Norepinephrine 4 mg In 227.116 254.000 Sodium Chloride 0.9% 250 ml @ 0.03 MCG/KG/MIN 6. 118 mls/hr IV .Q24H [facility]ONA Rx#:[id number] Output: Urine 969 1095 40 Other: Voiding Method Indwelling Catheter Indwelling Catheter - Exam GENERAL EXAM: Alert, very pleasant 82-year-old male, on 2 L nasal cannula, co mfortable in no apparent distress. HEAD: Normocephalic. EYES: Normal reaction of pupils, equal size. NOSE: Clear with pink turbinates. THROAT: No erythema or exudates. NECK: No masses, no JVD. CHEST: No chest wall deformity. LUNGS: Equal air entry with faint crackles in the posterior bases. The patient also has few crackles in lung bases bilaterally along with scattered expiratory wheeze CVS: Irregular S1 and S2 normal with no audible murmur, irregular rhythm. ABDOMEN: No hepatosplenomegaly, normal bowel sounds, no guarding or rigidity. SPINE: No scoliosis or deformity SKIN: No rashes CENTRAL NERVOUS SYSTEM: No focal deficits, tone is normal in all 4 extremities. EXTREMITIES: There is no peripheral edema. No clubbing, no cyanosis. Peripheral pulses are intact. Mental status is fluctuating and the patient is awake x 1-2. Neurologic exam is nonfocal and the patient is moving all 4 ext remities without any limitation. Pupils are equal reactive to light. No seizure activity. - Labs CBC & Chem 7: 05/04/23 04:13 05/04/23 04:13 Labs: Abnormal Lab Results - Last 24 Hours (Table) 05/03/23 05/03/23 05/03/23 Range/Units 08:27 12:07 15:15 RBC (4.30-5.90) m/uL Hgb (13.0-17.5) gm/dL Hct (39.0-53.0) % Lymphocytes # (1.0-4.8) k/uL PT (10.0-12.5) sec INR (<1.2) Sodium 123 L 121 L 123 L (137-145) mmol/L Chloride (98-107) mmol/L Carbon Dioxide (22-30) mmol/L BUN (9-20) mg/dL Glucose (74-99) mg/dL 05/03/23 05/04/23 05/04/23 Range/Units 20:48 04:13 04:13 RBC 3.12 L (4.30-5.90) m/uL Hgb 9.5 L (13.0-17.5) gm/dL Hct 28.7 L (39.0-53.0) % Lymphocytes # 0.5 L (1.0-4.8) k/uL PT 29.0 H (10.0-12.5) sec INR 2.9 H (<1.2) Sodium 125 L (137-145) mmol/L Chloride (98-107) mmol/L Carbon Dioxide (22-30) mmol/L BUN (9-20) mg/dL Glucose (74-99) mg/dL 05/04/23 Range/Units 04:13 RBC (4.30-5.90) m/uL Hgb (13.0-17.5) gm/dL Hct (39.0-53.0) % Lymphocytes # (1.0-4.8) k/uL PT (10.0-12.5) sec INR (<1.2) Sodium 126 L (137-145) mmol/L Chloride 92 L (98-107) mmol/L Carbon Dioxide 33 H (22-30) mmol/L BUN 42 H (9-20) mg/dL Glucose 118 H (74-99) mg/dL Microbiology - Last 24 Hours (Table) 05/01/23 17:00 Blood Culture - Preliminary Blood 05/01/23 17:15 Blood Culture - Preliminary Blood Assessment and Plan Plan: Acute hypochloremic hyponatremia, probably due to obstructive uropathy. Sodium level continues to improve. The patient was started also on gentle diuresis with Lasix 20 mg IV every 12 hours. Most recent sodium level is up to 126 Altered mentation, gradually improving. Hypotension, currently on low-dose norepinephrine. Exact cause for the underlying hypotension is not clear. We supported the patient's blood pressure with low-dose norepinephrine. Entresto and beta-blockers have been discontinued as the patient was taking bisoprolol on an outpatient basis. Rule out drug- induced hypotension along with a component of cardiogenic hypotension as the patient has impaired LV function with an ejection fraction of 25%. For now, the patient remains on norepinephrine at 0.11 mcg/kg/min. Obstructive uropathy and the patient has a Felder catheter in place. This is attributed to BPH. Transrectal ultrasound the prostate showed no nodules or lesions. Baseline PSA is not known. Advanced COPD with upper lobe predominance with bullous emphysematous changes bilaterally. Chronic hypoxic respiratory failure and the patient has been maintained on oxygen 4 L nasal cannula Systolic heart failure with an EF of around 25 to 30% History of valvular heart disease with previous repair of the bicuspid aortic valve and mitral valve replacement that was done [facility] back in 2014 Chronic A-fib maintained on anticoagulation Chronic stage III kidney disease although the most recent creatinine has been essentially within normal limits. His renal function has been fluctuating Previous history of GI bleed Hyperlipidemia Abdominal aortic aneurysm status post endovascular stent grafting Previous history of COVID-19 infection back in September 2022 Previous history of shingles Peripheral vascular disease Recurrent urine tract infection the patient has a Felder catheter in place. UA is abnormal. Awaiting final cultures. The patient is currently on IV Rocephin Plan Keep the patient in the intensive care unit Monitor mental status Continue Lasix and monitor sodium level which is essentially improving Monitor hypotension and continue low-dose \norepinephrine\for blood pressure support, the norepinephrine is to be weaned off and discontinued today Monitor renal function, nephrology on the case Continue anticoagulation with warfarin and monitor the PT/INR. Most recent INR is at 2. 9 and the patient is being anticoagulated for chronic A-fib. Hold Entresto for now Hold tiotropium for now as the patient is having urinary retention. Hold bisoprolol as long as the patient remains on pressors Continue maintenance prednisone of 2.5 mg p.o. on a daily basis Continue IV Rocephin Will continue to follow. The patient be kept in the ICU for now.
--- NOTE | 2023-05-04 10:59 | P.PN ---
Subjective Follow-up for hyponatremia. Status post 3% saline Currently maintained on IV Lasix at 20 mg every 12 hours. Sodium improved to 126 today. Serum creatinine at 1.1. No significant complaints. Blood pressure remains on the lower side. Levophed currently being decreased. Serum cortisol was 16.6. Objective - Vital Signs Vital signs: Vital Signs Temp 97.6 F 05/04/23 08:00 Pulse 86 05/04/23 10:15 Resp 14 05/04/23 10:15 BP 110/53 05/04/23 10:15 Pulse Ox 99 05/04/23 10:15 FiO2 Intake & Output 05/03/23 05/04/23 05/04/23 18:59 06:59 18:59 Intake Total 327.116 474.000 259.359 Output Total 969 1095 425 Balance -641.884 -621.000 -165.641 Weight 58.4 kg 58.7 kg Intake: IV 100 220 100 0.9 KVO 220 50 cefTRIAXone 2 gm In 100 50 Sodium Chloride 0.9% 50 ml @ 100 mls/hr IVPB Q24HR [facility] Rx#:[id number] Intake, IV Titration 227.116 254.000 39.359 Amount Norepinephrine 4 mg In 227.116 254.000 39.359 Sodium Chloride 0.9% 250 ml @ 0.03 MCG/KG/MIN 6. 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 exam grossly intact - Labs CBC & Chem 7: 05/04/23 04:13 05/04/23 04:13 Labs: Abnormal Lab Results - Last 24 Hours (Table) 05/03/23 05/03/23 05/03/23 Range/Units 12:07 15:15 20:48 RBC (4.30-5.90) m/uL Hgb (13.0-17.5) gm/dL Hct (39.0-53.0) % Lymphocytes # (1.0-4.8) k/uL PT (10.0-12.5) sec INR (<1.2) Sodium 121 L 123 L 125 L (137-145) mmol/L Chloride (98-107) mmol/L Carbon Dioxide (22-30) mmol/L BUN (9-20) mg/dL Glucose (74-99) mg/dL 05/04/23 05/04/23 05/04/23 Range/Units 04:13 04:13 04:13 RBC 3.12 L (4.30-5.90) m/uL Hgb 9.5 L (13.0-17.5) gm/dL Hct 28.7 L (39.0-53.0) % Lymphocytes # 0.5 L (1.0-4.8) k/uL PT 29.0 H (10.0-12.5) sec INR 2.9 H (<1.2) Sodium 126 L (137-145) mmol/L Chloride 92 L (98-107) mmol/L Carbon Dioxide 33 H (22-30) mmol/L BUN 42 H (9-20) mg/dL Glucose 118 H (74-99) mg/dL Microbiology - Last 24 Hours (Table) 05/01/23 17:00 Blood Culture - Preliminary Blood 05/01/23 17:15 Blood Culture - Preliminary Blood Assessment and Plan Assessment: 1. Acute kidney injury secondary to hemodynamic ATN secondary to obstructive uropathy. Creatinine 1.46 today. Creatinine 0.92 in September 2022. 2. Hyponatremia secondary to urinary retention and excess fluid intake. Was also on Lasix outpatient. Now hypervolemic. Urine osmolality 207. Urine sodium less than 20. Cortisol level not low. TSH normal. 3. Chronic systolic CHF with ejection fraction of 25 to 30%. 4. Recent bladder surgery status post Felder catheter insertion and subsequent removal. Felder catheter had to be reinserted this admission due to retention. 5. Urinary retention. Has Felder catheter. On Flomax. 6. Hypomagnesemia from poor intake. Replaced. Better. 7. Hypotension, etiology unclear. Maintained on empiric antibiotics. Blood cultures negative thus far. Chest x-ray is unremarkable. Pyuria noted on UA although not significant. Urine culture not available. Cortisol level was not low. Plan: Continue with IV Lasix Repeat sodium later this afternoon Encourage increase oral intake particularly protein.
--- NOTE | 2023-05-04 12:25 | P.PN ---
Subjective Progress Note Date: 05/03/23 Ankur was seen and evaluated in the intensive care unit. He is admitted for confusion and profound hyponatremia. Admission sodium was 108. Today it is 123. He had previously been on 3% hypertonic saline from critical care. Nephrology has seen him and urology was consulted. He had urinary retention and a malfunctioning Felder catheter on admission. He recently underwent a UroLift procedure last week and [place]. He had a Felder catheter for the past several years and had issues urinating after hospitalization. He is now resting comfortably intensive care unit today. He is a little confused, mentation is improved. He is a thin frail elderly male. He is in good spirits today. Objective - Vital Signs Vital signs: Vital Signs Temp 97.6 F 05/04/23 08:00 Pulse 88 05/04/23 11:45 Resp 18 05/04/23 11:45 BP 107/50 05/04/23 11:45 Pulse Ox 96 05/04/23 11:45 FiO2 Intake & Output 05/03/23 05/04/23 05/04/23 18:59 06:59 18:59 Intake Total 327.116 474.000 320.783 Output Total 969 1095 650 Balance -641.884 -621.000 -329.217 Weight 58.4 kg 58.7 kg Intake: IV 100 220 110 0.9 KVO 220 60 cefTRIAXone 2 gm In 100 50 Sodium Chloride 0.9% 50 ml @ 100 mls/hr IVPB Q24HR [facility] Rx#:[id number] Intake, IV Titration 227.116 254.000 90.783 Amount Norepinephrine 4 mg In 227.116 254.000 90.783 Sodium Chloride 0.9% 250 ml @ 0.03 MCG/KG/MIN 6. 118 mls/hr IV .Q24H [facility]ONA Rx#:[id number] Oral 120 Output: Urine 969 1095 650 Other: Voiding Method Indwelling Catheter Indwelling Catheter Indwelling Catheter - Exam General: The patient is awake and alert, in no distress, thin frail male Neck: The neck is supple, there is no thyromegaly, lymphadenopathy, tenderness or JVD. Cardiovascular: S1S2 is normal, There is a regular rate and rhythm. No murmur, rub or gallop is appreciated. Respiratory: Lungs decreased breath sounds consistent with a significant COPD. There is no active wheeze rales or crackles this time Gastrointestinal: Soft, non-distended, non-tender abdomen without masses or organomegaly noted. There is no rebound or guarding present. Bowel sounds are unremarkable. Musculoskeletal: Normal ROM, no tenderness, There is no pedal edema. There is no calf tenderness or swelling. No cords were appreciated. Neurological: CN II-XII intact, there are no obvious motor or sensory deficits. Coordination appears grossly intact. Speech is normal. Felder catheter to gravity. He is awake alert and oriented x 1 Skin: Skin is warm and dry and no rashes or lesions are noted. - Labs CBC & Chem 7: 05/04/23 04:13 05/04/23 04:13 Labs: Abnormal Lab Results - Last 24 Hours (Table) 05/03/23 05/03/23 05/03/23 Range/Units 12:07 15:15 20:48 RBC (4.30-5.90) m/uL Hgb (13.0-17.5) gm/dL Hct (39.0-53.0) % Lymphocytes # (1.0-4.8) k/uL PT (10.0-12.5) sec INR (<1.2) Sodium 121 L 123 L 125 L (137-145) mmol/L Chloride (98-107) mmol/L Carbon Dioxide (22-30) mmol/L BUN (9-20) mg/dL Glucose (74-99) mg/dL 05/04/23 05/04/23 05/04/23 Range/Units 04:13 04:13 04:13 RBC 3.12 L (4.30-5.90) m/uL Hgb 9.5 L (13.0-17.5) gm/dL Hct 28.7 L (39.0-53.0) % Lymphocytes # 0.5 L (1.0-4.8) k/uL PT 29.0 H (10.0-12.5) sec INR 2.9 H (<1.2) Sodium 126 L (137-145) mmol/L Chloride 92 L (98-107) mmol/L Carbon Dioxide 33 H (22-30) mmol/L BUN 42 H (9-20) mg/dL Glucose 118 H (74-99) mg/dL Microbiology - Last 24 Hours (Table) 05/01/23 17:00 Blood Culture - Preliminary Blood 05/01/23 17:15 Blood Culture - Preliminary Blood Assessment and Plan (1) Hyponatremia Current Visit: Yes Status: Acute Code(s): E87.1 - HYPO-OSMOLALITY AND HYPONATREMIA SNOMED Code(s): 87904192 (2) Chronic respiratory failure Current Visit: Yes Status: Acute Code(s): J96.10 - CHRONIC RESPIRATORY FAILURE, UNSP W HYPOXIA OR HYPERCAPNIA SNOMED Code(s): 45038336 (3) COPD (chronic obstructive pulmonary disease) Current Visit: Yes Status: Acute Code(s): J44.9 - CHRONIC OBSTRUCTIVE PULMONARY DISEASE, UNSPECIFIED SNOMED Code(s): 12518534 (4) Atrial fibrillation Current Visit: No Status: Acute Code(s): I48.91 - UNSPECIFIED ATRIAL FIBRILLATION SNOMED Code(s): 15426349 (5) Chronic indwelling Felder catheter Current Visit: No Status: Acute Code(s): Z97.8 - PRESENCE OF OTHER SPECIFIED DEVICES SNOMED Code(s): 804822498 (6) 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 Current Visit: No Status: Acute Code(s): Z79.01 - FIELD MECHANIC (CURRENT) USE OF ANTICOAGULANTS SNOMED Code(s): 906575572 (7) Mixed hyperlipidemia Current Visit: No Status: Acute Code(s): E78.2 - MIXED HYPERLIPIDEMIA SNOMED Code(s): 189034766 (8) Stage III chronic kidney disease Current Visit: No Status: Acute Code(s): N18.30 - CHRONIC KIDNEY DISEASE, STAGE 3 UNSPECIFIED SNOMED Code(s): 097076805 (9) Systolic congestive heart failure Current Visit: No Status: Acute Code(s): I50.20 - UNSPECIFIED SYSTOLIC (CONGESTIVE) HEART FAILURE SNOMED Code(s): 30536082 (10) Recurrent UTI Current Visit: Yes Status: Acute Code(s): N39.0 - URINARY TRACT INFECTION, SITE NOT SPECIFIED SNOMED Code(s): 823941560 Plan: Remains in the intensive care unit, he still requiring norepinephrine for blood pressure maintenance. He remains on ceftriaxone antibiotic coverage, he continues on his Coumadin for long-term anticoagulation, other home medications have been reordered wait on further recommendations from nephrology and critical care, he will be reevaluated in the next 24 hours
--- NOTE | 2023-05-04 12:29 | P.PN ---
Hodan Pascual was seen and evaluated in the intensive care unit. He is admitted for confusion and profound hyponatremia. Admission sodium was 108. Today it is 123. He had previously been on 3% hypertonic saline from critical care. Nephrology has seen him and urology was consulted. He had urinary retention and a malfunctioning Felder catheter on admission. He recently underwent a UroLift procedure last week and [place]. He had a Felder catheter for the past several years and had issues urinating after hospitalization. He is now resting comfortably intensive care unit today. He is a little confused, mentation is improved. He is a thin frail elderly male. He is in good spirits today. May 04, 2023: Patient remains in intensive care unit. He is much more lucid today. Sodium is now 126 as of this morning. Gl[place]in this morning is 9.5. Remains on Levophed for blood pressure control however they are able to decrease it. Critical care and nephrology are following. He has a Felder catheter to gravity for his urinary obstruction. Jozef on tamsulosin for this, ceftriaxone for antibiotic coverage Objective - Vital Signs Vital signs: Vital Signs Temp 97.6 F 05/04/23 08:00 Pulse 88 05/04/23 11:45 Resp 18 05/04/23 11:45 BP 107/50 05/04/23 11:45 Pulse Ox 96 05/04/23 11:45 FiO2 Intake & Output 05/03/23 05/04/23 05/04/23 18:59 06:59 18:59 Intake Total 327.116 474.000 320.783 Output Total 969 1095 650 Balance -641.884 -621.000 -329.217 Weight 58.4 kg 58.7 kg Intake: IV 100 220 110 0.9 KVO 220 60 cefTRIAXone 2 gm In 100 50 Sodium Chloride 0.9% 50 ml @ 100 mls/hr IVPB Q24HR [facility] Rx#:[id number] Intake, IV Titration 227.116 254.000 90.783 Amount Norepinephrine 4 mg In 227.116 254.000 90.783 Sodium Chloride 0.9% 250 ml @ 0.03 MCG/KG/MIN 6. 118 mls/hr IV .Q24H [facility] Rx#:[id number] Oral 120 Output: Urine 969 1095 650 Other: Voiding Method Indwelling Catheter Indwelling Catheter Indwelling Catheter - Exam General: The patient is awake and alert, in no distress, thin frail male Neck: The neck is supple, there is no thyromegaly, lymphadenopathy, tenderness or JVD. Cardiovascular: S1S2 is normal, There is a regular rate and rhythm. No murmur, rub or gallop is appreciated. Respiratory: Lungs decreased breath sounds consistent with a significant COPD. There is no active wheeze rales or crackles this time Gastrointestinal: Soft, non-distended, non-tender abdomen without masses or organomegaly noted. There is no rebound or guarding present. Bowel sounds are unremarkable. Musculoskeletal: Normal ROM, no tenderness, There is no pedal edema. There is no calf tenderness or swelling. No cords were appreciated. Neurological: CN II-XII intact, there are no obvious motor or sensory deficits. Coordination appears grossly intact. Speech is normal. Feledr catheter to gravity. He is awake alert and oriented x 1 Skin: Skin is warm and dry and no rashes or lesions are noted. - Labs CBC & Chem 7: 05/04/23 04:13 05/04/23 04:13 Labs: Abnormal Lab Results - Last 24 Hours (Table) 05/03/23 05/03/23 05/03/23 Range/Units 12:07 15:15 20:48 RBC (4.30-5.90) m/uL Hgb (13.0-17.5) gm/dL Hct (39.0-53.0) % Lymphocytes # (1.0-4.8) k/uL PT (10.0-12.5) sec INR (<1.2) Sodium 121 L 123 L 125 L (137-145) mmol/L Chloride (98-107) mmol/L Carbon Dioxide (22-30) mmol/L BUN (9-20) mg/dL Glucose (74-99) mg/dL 05/04/23 05/04/23 05/04/23 Range/Units 04:13 04:13 04:13 RBC 3.12 L (4.30-5.90) m/uL Hgb 9.5 L (13.0-17.5) gm/dL Hct 28.7 L (39.0-53.0) % Lymphocytes # 0.5 L (1.0-4.8) k/uL PT 29.0 H (10.0-12.5) sec INR 2.9 H (<1.2) Sodium 126 L (137-145) mmol/L Chloride 92 L (98-107) mmol/L Carbon Dioxide 33 H (22-30) mmol/L BUN 42 H (9-20) mg/dL Glucose 118 H (74-99) mg/dL Microbiology - Last 24 Hours (Table) 05/01/23 17:00 Blood Culture - Preliminary Blood 05/01/23 17:15 Blood Culture - Preliminary Blood Assessment and Plan (1) Hyponatremia Current Visit: Yes Status: Acute Code(s): E87.1 - HYPO-OSMOLALITY AND HYPONATREMIA SNOMED Code(s): 02210373 (2) Chronic respiratory failure Current Visit: Yes Status: Acute Code(s): J96.10 - CHRONIC RESPIRATORY FAILURE, UNSP W HYPOXIA OR HYPERCAPNIA SNOMED Code(s): 75876527 (3) COPD (chronic obstructive pulmonary disease) Current Visit: Yes Status: Acute Code(s): J44.9 - CHRONIC OBSTRUCTIVE PULMONARY DISEASE, UNSPECIFIED SNOMED Code(s): 51827424 (4) Atrial fibrillation Current Visit: No Status: Acute Code(s): I48.91 - UNSPECIFIED ATRIAL FIBRILLATION SNOMED Code(s): 75685860 (5) Chronic indwelling Felder catheter Current Visit: No Status: Acute Code(s): Z97.8 - PRESENCE OF OTHER SPECIFIED DEVICES SNOMED Code(s): 532265437 (6) [facility] current use of anticoagulant therapy Current Visit: No Status: Acute Code(s): Z79.01 - [employer] (CURRENT) USE OF ANTICOAGULANTS SNOMED Code(s): 659554278 (7) Mixed hyperlipidemia Current Visit: No Status: Acute Code(s): E78.2 - MIXED HYPERLIPIDEMIA SNOMED Code(s): 959665411 (8) Stage III chronic kidney disease Current Visit: No Status: Acute Code(s): N18.30 - CHRONIC KIDNEY DISEASE, STAGE 3 UNSPECIFIED SNOMED Code(s): 273987769 (9) Systolic congestive heart failure Current Visit: No Status: Acute Code(s): I50.20 - UNSPECIFIED SYSTOLIC (CONGESTIVE) HEART FAILURE SNOMED Code(s): 28877169 (10) Recurrent UTI Current Visit: Yes Status: Acute Code(s): N39.0 - URINARY TRACT INFECTION, SITE NOT SPECIFIED SNOMED Code(s): 484534392 Plan: Remains in the intensive care unit, he still requiring norepinephrine for blood pressure maintenance. He remains on ceftriaxone antibiotic coverage, he nina nues on his Coumadin for long-term anticoagulation, other home medications have been reordered wait on further recommendations from nephrology and critical care, but his repeat sodium to more normalized. Further investigation of hyponatremia may be warranted. Although he was Jardiance, Entresto, Lasix, and Zoloft which all can contribute to hyponatremia he will be reevaluated in the next 24 hours
[2023-05-04] MEDS: WARFARIN 1 MG TAB PO ONE (20:21)
[2023-05-05 05:41] LABS: Basophils % (A) 1 %; Eosinophils # (A) 0.1 k/uL (0-0.7); Eosinophils % (A) 2 %; HGB 9.3 gm/dL (13.0-17.5); Lymphocytes # (A) 0.5 k/uL (1.0-4.8); Lymphocytes % (A) 10 %; MCH 30.2 pg (25.0-35.0); MCV 94.3 fL (80.0-100.0); Mean Platelet Volume 7.3; Monocytes # (A) 0.4 k/uL (0-1.0); Monocytes % (A) 8 %; Neutrophils # (A) 3.9 k/uL (1.3-7.7); Neutrophils % (A) 77 %; Platelet Count 237 k/uL (150-450); RBC 3.07 m/uL (4.30-5.90); RDW 14.6 % (11.5-15.5); WBC 5.1 k/uL (3.8-10.6)
[2023-05-05 05:48] LABS: INR 2.2 (<1.2); Prothrombin Time 21.9 sec (10.0-12.5)
[2023-05-05 05:50] LABS: African American GFR (CKD) 88 (>60 ml/min/1.73 sqM); Anion Gap 1 mmol/L; Blood Urea Nitrogen 37 mg/dL (9-20); Calcium 9.5 mg/dL (8.4-10.2); Carbon Dioxide 36 mmol/L (22-30); Chloride 98 mmol/L (98-107); Glucose 97 mg/dL (74-99); Non-African American GFR(CKD) 76 (>60 ml/min/1.73 sqM); Potassium 3.9 mmol/L (3.5-5.1); Sodium 135 mmol/L (137-145)
[2023-05-05] MEDS: POTASSIUM BICARBONATE/CIT AC 20 MEQ TABLET.EFF NG-TUBE SCH (08:21)
--- NOTE | 2023-05-05 08:44 | P.PN ---
Subjective Progress Note Date: 05/05/23 This is a 83-year-old male patient with multiple medical problems and comorbidities. The patient came into the emergency department because of diminished level of consciousness and some confusions and the patient was found to be profoundly hyponatremic and subsequently the patient was moved to the intensive care for management of hyponatremia. His sodium level was 108 and the chloride was 72. He had a BUN of 43 with a creatinine of 1.35 knowing that the patient has a normal baseline creatinine of 0.9 from 09/06/2022. Note that the patient has multiple medical problems and comorbidities. The patient was given a Felder catheter for obstructive uropathy and BPH. However, he was unable to urinate. He came into the emergency department and Felder catheter was essentially removed. In the emergency, he was found to be confused. He denies having any shortness of breath. He had trace edema lower extremities bilaterally. The Felder catheter was reinserted and the patient was able to produce urine output and the patient has been making urine for now. UA was checked and the patient was found to have elevated white cell count of 37 with a +2 glucose and a moderate amount of blood and 4 WBCs. His initial troponin was at 0.98. CPK was 73. 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 The patient is breathing comfortably and the patient is currently at 4 L of oxygen by nasal cannula with a pulse ox of 99%. His most recent blood pressure is 97/57. In terms of his previous medical problems and comorbidities, they are quite extensive. The patient has advanced COPD and he has been oxygen dependent somewhere between 3 and 4 L of oxygen by nasal cannula. He also has chronic systolic heart failure with an ejection fraction of 25 to 30% and he has undergone previous mitral valve replacement at [facility] back in 2015 and repair of a bicuspid aortic valve. He also has an abdominal aortic aneurysm for which she has undergone endovascular static grafting. He has chronic A-fib maintained on anticoagulation with warfarin and he has h hyperlipidemia and stage III chronic kidney disease although most recent creatinine based on our records has been within normal limits. He has BPH, peripheral vascular disease in addition. On today's evaluation of 05/02/2023, the patient is being seen for a follow-up. His confusion is somewhat improved although the patient is on and off found to be altered neurologically. Noted the patient presented to us with severe hyponatremia and his sodium level was as low as 108. The patient was started on hypertonic saline and the morning sodium level came at 114. At that point, the hypertonic saline was discontinued. The patient is currently on KVO IV fluids. He also required some pressors and the patient is on low-dose norepinephrine at 0.07 mcg/kg/min. Overall fluid balance over the past 24 hours has been +931 cc. Urine output is adequate in the order of 60 to 70 cc. Blood work from today shows a white cell count of 7.4 with a hemoglobin 9.9 and a platelet count of 227. The BUN is at 36 with a creatinine of 1.3 and the rest of the electrolytes show a potassium level of 4.4, chloride is up to 80 and liver function tests are essentially within normal limits. Felder catheter was inserted. Urine culture still pending. The patient remains on IV Rocephin. Zithromax will be discontinued. INR therapeutic at 2.2 and the patient continues to be on warfarin. No focal neurological deficits. No headaches. On today's evaluation of 05/03/2023, the patient is being seen for a follow-up. The patient remains somewhat confused yet he is pleasant he has no reported agitation. Note that the patient sodium level gradually improved and the patient sodium level is currently up to 121. BUN is at 40 with a creatinine of 1.46. The patient is also on low-dose norepinephrine for blood pressure support which is running at 0.09 mcg/kg/min. The IV fluids are currently at KVO. The patient was seen by nephrology and the patient was started on gentle diuresis with IV Lasix 20 mg IV push every 12 hours. The patient is calm and comfortable. He is currently on oxygen at 4 L/min nasal cannula. He has advanced COPD and continues to have ongoing bronchospasm and wheezing. Nevertheless, there is no significant respiratory distress. He remains on anticoagulation with warfarin. INR is at 2.9. BUN is at 40 with a creatinine of 1.4 and a potassium level is at 4.5. WBC count 7.2 with a hemoglobin 9.7 and a platelet count of 289. Remains on IV Rocephin as an empiric antibiotic coverage. Remains on a prednisone maintenance of 2.5 mg p.o. daily. Felder catheter is in place and the patient has obstructive uropathy. The patient is also on Flomax. No other significant events overnight On 05/04/2023, the patient is less confused. Answering questions more appropriately. His sodium level gradually improved and currently is up to 126. Potassium is at 4, BUN is 42 with a creatinine 1.1. No focal neurological deficit. Diuretics was also started yesterday by nephrology and the patient was started on Lasix 20 mg IV every 12 hours. His fluid balance has been -1.2 L over the past 24 hours and the patient is producing adequate amount of urine output. Cardiac rhythm is A-fib. The patient has an INR of 2.9. Hemoglobin is at 9.5 with a WBC count of 6.2. He remains on oxygen at 2 L with a pulse ox of 99%. No signs of any respiratory distress. No focal neurological deficits. The patient has a Felder catheter in place. The patient is on IV Rocephin as an empiric antibiotic coverage. Blood cultures have been negative. At the same time, the patient is running on norepinephrine which is being titrated and I am hoping to wean it off and discontinued today. His current norepinephrine is running at 0.11 mcg/kg/min. Renal mass on 05/05/2023, the patient is demonstrating adequate mentation. No significant confusion. He was immediately able was able to recognize me and called me by my name. This was not possible over the past few days. No agitation. His electrolytes have also improved and the patient sodium level is up to 135 and a potassium level is at 3.9. Serum bicarb is at 36. BUN is at 37 with a creatinine of 0.9. The white cell count is at 5.1 with a hemoglobin of 9.3. He remains on oxygen at 2 L nasal cannula. No focal neurological deficits. Fortunately, he was able to wean off the pressors and the patient is currently off pressors and has been off pressors since 9 PM yesterday. No other significant events overnight. The patient is clinically stable and hemodynamically stable. He is on a maintenance prednisone of 2.5 mg p.o. daily. He was covered empirically with IV Rocephin. INR today is at 2.2 which is therapeutic. His cardiac rhythm is sinus. Objective - Vital Signs Vital signs: Vital Signs Temp 97.7 F 05/05/23 04:00 Pulse 106 H 05/05/23 08:26 Resp 28 H 05/05/23 08:00 BP 115/53 05/05/23 08:00 Pulse Ox 98 05/05/23 08:00 FiO2 Intake & Output 05/04/23 05/05/23 05/05/23 18:59 06:59 18:59 Intake Total 674.560 126.491 320 Output Total 1415 735 175 Balance -740.440 -608.509 145 Weight 59.1 kg Intake: IV 180 120 70 0.9 KVO 130 120 20 cefTRIAXone 2 gm In 50 50 Sodium Chloride 0.9% 50 ml @ 100 mls/hr IVPB Q24HR [facility] Rx#:[id number] Intake, IV Titration 134.560 6.491 Amount Norepinephrine 4 mg In 134.560 6.491 Sodium Chloride 0.9% 250 ml @ 0.03 MCG/KG/MIN 6. 118 mls/hr IV .Q24H [facility] Rx#:[id number] Oral 360 250 Output: Urine 1415 735 175 Other: Voiding Method Indwelling Catheter Indwelling Catheter - Exam GENERAL EXAM: Alert, very pleasant 82-year-old male, on 2 L nasal cannula, comfortable in no apparent distress. HEAD: Normocephalic. EYES: Normal reaction of pupils, equal size. NOSE: Clear with pink turbinates. THROAT: No erythema or exudates. NECK: No masses, no JVD. CHEST: No chest wall deformity. LUNGS: Equal air entry with faint crackles in the posterior bases. The patient also has few crackles in lung bases bilaterally along with scattered expiratory wheeze CVS: Irregular S1 and S2 normal with no audible murmur, irregular rhythm. ABDOMEN: No hepatosplenomegaly, normal bowel sounds, no guarding or rigidity. SPINE: No scoliosis or deformity SKIN: No rashes CENTRAL NERVOUS SYSTEM: No focal deficits, tone is normal in all 4 extremities. EXTREMITIES: There is no peripheral edema. No clubbing, no cyanosis. Peripheral pulses are intact. Alert and oriented x 3. Neurologic exam is nonfocal and the patient is moving all 4 extremities without any limitation. Pupils are equal reactive to light. No seizure activity. Alert and oriented x 3 - Labs CBC & Chem 7: 05/05/23 05:23 05/05/23 05:23 Labs: Abnormal Lab Results - Last 24 Hours (Table) 05/04/23 05/05/23 05/05/23 Range/Units 15:13 05:23 05:23 RBC 3.07 L (4.30-5.90) m/uL Hgb 9.3 L (13.0-17.5) gm/dL Hct 29.0 L (39.0-53.0) % Lymphocytes # 0.5 L (1.0-4.8) k/uL PT 21.9 H (10.0-12.5) sec INR 2.2 H (<1.2) Sodium 133 L (137-145) mmol/L Carbon Dioxide (22-30) mmol/L BUN (9-20) mg/dL 05/05/23 Range/Units 05:23 RBC (4.30-5.90) m/uL Hgb (13.0-17.5) gm/dL Hct (39.0-53.0) % Lymphocytes # (1.0-4.8) k/uL PT (10.0-12.5) sec INR (<1.2) Sodium 135 L (137-145) mmol/L Carbon Dioxide 36 H (22-30) mmol/L BUN 37 H (9-20) mg/dL Microbiology - Last 24 Hours (Table) 05/01/23 17:00 Blood Culture - Preliminary Blood 05/01/23 17:15 Blood Culture - Preliminary Blood Assessment and Plan Plan: Acute hypochloremic hyponatremia, probably due to obstructive uropathy. Sodium level continues to improve. Most recent sodium level is up to 135 Altered mentation, gradually improving. Hypotension, currently on low-dose norepinephrine. Exact cause for the underlying hypotension is not clear. We supported the patient's blood pressure with low-dose norepinephrine. Entresto and beta-blockers have been discontinued as the patient was taking bisoprolol on an outpatient basis. Rule out drug- induced hypotension along with a component of cardiogenic hypotension as the patient has impaired LV function with an ejection fraction of 25%. For now, the patient is off pressors and norepinephrine was discontinued yesterday at around 9 PM. Bisoprolol was restarted. Obstructive uropathy and the patient has a Felder catheter in place. This is attributed to BPH. Transrectal ultrasound the prostate showed no nodules or lesions. Baseline PSA is not known. Advanced COPD with upper lobe predominance with bullous emphysematous changes bilaterally. Chronic hypoxic respiratory failure and the patient has been maintained on oxygen 4 L nasal cannula Systolic heart failure with an EF of around 25 to 30% History of valvular heart disease with previous repair of the bicuspid aortic valve and mitral valve replacement that was done [facility] back in 2014 Chronic A-fib maintained on anticoagulation Chronic stage III kidney disease although the most recent creatinine has been essentially within normal limits. His renal function has been fluctuating Previous history of GI bleed Hyperlipidemia Abdominal aortic aneurysm status post endovascular stent grafting Previous history of COVID-19 infection back in September 2022 Previous history of shingles Peripheral vascular disease Recurrent urine tract infection the patient has a Felder catheter in place. UA is abnormal. Awaiting final cultures. The patient is currently on IV Rocephin Plan Monitor mental status, essentially normalized Change Lasix to 40 mg p.o. twice a day Pressors have been discontinued Monitor renal function, nephrology on the case Continue anticoagulation with warfarin and monitor the PT/INR. Most recent INR is at 2. 2 and the patient is being anticoagulated for chronic A-fib. Hold Entresto for now, bisoprolol has been restarted. I am considering restarting Entresto within the next 24 to 48 hours as long as the patient's blood pressure holds. Hold tiotropium for now as the patient is having urinary retention. Hold bisoprolol as long as the patient remains on pressors Continue maintenance prednisone of 2.5 mg p.o. on a daily basis May discontinue the IV Rocephin Transfer the patient to the medical floor. Will need telemetry.
--- NOTE | 2023-05-05 10:21 | P.PN ---
Subjective Follow-up for hyponatremia. Status post 3% saline initially. Currently being diuresed. Sodium improved to 135 today. Serum creatinine at 0.9 No significant complaints. Objective - Vital Signs Vital signs: Vital Signs Temp 97.7 F 05/05/23 04:00 Pulse 101 H 05/05/23 08:38 Resp 28 H 05/05/23 08:00 BP 115/53 05/05/23 08:00 Pulse Ox 98 05/05/23 08:00 FiO2 Intake & Output 05/04/23 05/05/23 05/05/23 18:59 06:59 18:59 Intake Total 674.560 126.491 320 Output Total 1415 735 175 Balance -740.440 -608.509 145 Weight 59.1 kg Intake: IV 180 120 70 0.9 KVO 130 120 20 cefTRIAXone 2 gm In 50 50 Sodium Chloride 0.9% 50 ml @ 100 mls/hr IVPB Q24HR [facility] Rx#:[id number] Intake, IV Titration 134.560 6.491 Amount Norepinephrine 4 mg In 134.560 6.491 Sodium Chloride 0.9% 250 ml @ 0.03 MCG/KG/MIN 6. 118 mls/hr IV .Q24H [facility] Rx#:[id number] Oral 360 250 Output: Urine 1415 735 175 Other: Voiding Method Indwelling Catheter Indwelling Catheter - Exam Patient is awake, comfortable, no acute distress Examination of the heart S1 and S2 Examination of the lungs bilateral breath sounds are heard Abdomen is soft nontender Examination of lower extremity shows no evidence of edema [employer] exam grossly intact - Labs CBC & Chem 7: 05/05/23 05:23 05/05/23 05:23 Labs: Abnormal Lab Results - Last 24 Hours (Table) 05/04/23 05/05/23 05/05/23 Range/Units 15:13 05:23 05:23 RBC 3.07 L (4.30-5.90) m/uL Hgb 9.3 L (13.0-17.5) gm/dL Hct 29.0 L (39.0-53.0) % Lymphocytes # 0.5 L (1.0-4.8) k/uL PT 21.9 H (10.0-12.5) sec INR 2.2 H (<1.2) Sodium 133 L (137-145) mmol/L Carbon Dioxide (22-30) mmol/L BUN (9-20) mg/dL 05/05/23 Range/Units 05:23 RBC (4.30-5.90) m/uL Hgb (13.0-17.5) gm/dL Hct (39.0-53.0) % Lymphocytes # (1.0-4.8) k/uL PT (10.0-12.5) sec INR (<1.2) Sodium 135 L (137-145) mmol/L Carbon Dioxide 36 H (22-30) mmol/L BUN 37 H (9-20) mg/dL Microbiology - Last 24 Hours (Table) 05/01/23 17:00 Blood Culture - Preliminary Blood 05/01/23 17:15 Blood Culture - Preliminary Blood Assessment and Plan Assessment: 1. Acute kidney injury secondary to hemodynamic ATN secondary to obstructive uropathy. Creatinine 0.9 today. Creatinine 0.92 in September 2022. 2. Hyponatremia secondary to urinary retention and excess fluid intake. Was also on Lasix outpatient. Now hypervolemic. Urine osmolality 207. Urine sodium less than 20. Cortisol level not low. TSH normal. 3. Chronic systolic CHF with ejection fraction of 25 to 30%. 4. Recent bladder surgery status post Felder catheter insertion and subsequent removal. Felder catheter had to be reinserted this admission due to retention. 5. Urinary retention. Has Felder catheter. On Flomax. 6. Hypomagnesemia from poor intake. Replaced. Better. 7. Hypotension, etiology unclear. Maintained on empiric antibiotics. Blood cultures negative thus far. Chest x-ray is unremarkable. Pyuria noted on UA although not significant. Urine culture not available. Cortisol level was not low. Plan: Continue with Lasix, changed to oral today. Evening dose of IV Lasix was held yesterday. Encourage increase oral intake particularly protein.
--- NOTE | 2023-05-05 13:25 | P.PN ---
Hodan Pascual was seen and evaluated in the intensive care unit. He is admitted for confusion and profound hyponatremia. Admission sodium was 108. Today it is 123. He had previously been on 3% hypertonic saline from critical care. Nephrology has seen him and urology was consulted. He had urinary retention and a malfunctioning Felder catheter on admission. He recently underwent a UroLift procedure last week and [place]. He had a Felder catheter for the past several years and had issues urinating after hospitalization. He is now resting comfortably intensive care unit today. He is a little confused, mentation is improved. He is a thin frail elderly male. He is in good spirits today. May 04, 2023: Patient remains in intensive care unit. He is much more lucid today. Sodium is now 126 as of this morning. Globin this morning is 9.5. Remains on Levophed for blood pressure control however they are able to decrease it. Critical care and nephrology are following. He has a Felder catheter to gravity for his urinary obstruction. Jozef on tamsulosin for this, ceftriaxone for antibiotic coverage May 05, 2023: Patient continues in the intensive care unit. He is awake alert and oriented today to baseline. Sodium is now 135. He is off Levophed. He remains anticoagulated with warfarin. He and I discussed rehabilitation for him at discharge Objective - Vital Signs Vital signs: Vital Signs Temp 98.0 F 05/05/23 12:42 Pulse 86 05/05/23 12:41 Resp 24 05/05/23 12:42 BP 115/53 05/05/23 08:00 Pulse Ox 95 05/05/23 12:42 FiO2 Intake & Output 05/04/23 05/05/23 05/05/23 18:59 06:59 18:59 Intake Total 674.560 126.491 320 Output Total 1415 735 175 Balance -740.440 -608.509 145 Weight 59.1 kg Intake: IV 180 120 70 0.9 KVO 130 120 20 cefTRIAXone 2 gm In 50 50 Sodium Chloride 0.9% 50 ml @ 100 mls/hr IVPB Q24HR [facility] Rx#:[id number] Intake, IV Titration 134.560 6.491 Amount Norepinephrine 4 mg In 134.560 6.491 Sodium Chloride 0.9% 250 ml @ 0.03 MCG/KG/MIN 6. 118 mls/hr IV .Q24H [facility] Rx#:[id number] Oral 360 250 Output: Urine 1415 735 175 Other: Voiding Method Indwelling Catheter Indwelling Catheter Indwelling Catheter - Exam General: The patient is awake and alert, in no distress, thin frail male, now alert and oriented Neck: The neck is supple, there is no thyromegaly, lymphadenopathy, tenderness or JVD. Cardiovascular: S1S2 is normal, There is a regular rate and rhythm. No murmur, rub or gallop is appreciated. Respiratory: Lungs decreased breath sounds consistent with a significant COPD. There is no active wheeze rales or crackles this time Gastrointestinal: Soft, non-distended, non-tender abdomen without masses or organomegaly noted. There is no rebound or guarding present. Bowel sounds are unremarkable. Musculoskeletal: Normal ROM, no tenderness, There is no pedal edema. There is no calf tenderness or swelling. No cords were appreciated. Neurological: CN II-XII intact, there are no obvious motor or sensory deficits. Coordination appears grossly intact. Speech is normal. Felder catheter to gravity. He is awake alert and oriented x 1 Skin: Skin is warm and dry and no rashes or lesions are noted. - Labs CBC & Chem 7: 05/05/23 05:23 05/05/23 05:23 Labs: Abnormal Lab Results - Last 24 Hours (Table) 05/04/23 05/05/23 05/05/23 Range/Units 15:13 05:23 05:23 RBC 3.07 L (4.30-5.90) m/uL Hgb 9.3 L (13.0-17.5) gm/dL Hct 29.0 L (39.0-53.0) % Lymphocytes # 0.5 L (1.0-4.8) k/uL PT 21.9 H (10.0-12.5) sec INR 2.2 H (<1.2) Sodium 133 L (137-145) mmol/L Carbon Dioxide (22-30) mmol/L BUN (9-20) mg/dL 05/05/23 Range/Units 05:23 RBC (4.30-5.90) m/uL Hgb (13.0-17.5) gm/dL Hct (39.0-53.0) % Lymphocytes # (1.0-4.8) k/uL PT (10.0-12.5) sec INR (<1.2) Sodium 135 L (137-145) mmol/L Carbon Dioxide 36 H (22-30) mmol/L BUN 37 H (9-20) mg/dL Microbiology - Last 24 Hours (Table) 05/01/23 17:00 Blood Culture - Preliminary Blood 05/01/23 17:15 Blood Culture - Preliminary Blood Assessment and Plan (1) Hyponatremia Current Visit: Yes Status: Acute Code(s): E87.1 - HYPO-OSMOLALITY AND HYPONATREMIA SNOMED Code(s): 71723763 (2) Chronic respiratory failure Current Visit: Yes Status: Acute Code(s): J96.10 - CHRONIC RESPIRATORY FAILURE, UNSP W HYPOXIA OR HYPERCAPNIA SNOMED Code(s): 42252635 (3) COPD (chronic obstructive pulmonary disease) Current Visit: Yes Status: Acute Code(s): J44.9 - CHRONIC OBSTRUCTIVE PULMONARY DISEASE, UNSPECIFIED SNOMED Code(s): 89870622 (4) Atrial fibrillation Current Visit: No Status: Acute Code(s): I48.91 - UNSPECIFIED ATRIAL FIBRILLATION SNOMED Code(s): 67455176 (5) Chronic indwelling Felder catheter Current Visit: No Status: Acute Code(s): Z97.8 - PRESENCE OF OTHER SPECIFIED DEVICES SNOMED Code(s): 417210431 (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 Current Visit: No Status: Acute Code(s): Z79.01 - RETIREMENT (CURRENT) USE OF ANTICOAGULANTS SNOMED Code(s): 421873651 (7) Mixed hyperlipidemia Current Visit: No Status: Acute Code(s): E78.2 - MIXED HYPERLIPIDEMIA SNOMED Code(s): 537311550 (8) Stage III chronic kidney disease Current Visit: No Status: Acute Code(s): N18.30 - CHRONIC KIDNEY DISEASE, STAGE 3 UNSPECIFIED SNOMED Code(s): 451452909 (9) Systolic congestive heart failure Current Visit: No Status: Acute Code(s): I50.20 - UNSPECIFIED SYSTOLIC (CONGESTIVE) HEART FAILURE SNOMED Code(s): 40412313 (10) Recurrent UTI Current Visit: Yes Status: Acute Code(s): N39.0 - URINARY TRACT INFECTION, SITE NOT SPECIFIED SNOMED Code(s): 407589868 Plan: Case discussed with critical care, he is cleared to go to the floor at this time, will have PT OT take a look at him. Expect he will need ECF at discharge. Will continue his current medications and treatments. He will be reevaluated by family medicine in the next 24 hours.
[2023-05-05] MEDS: FUROSEMIDE 40 MG TAB PO SCH (15:48)
[2023-05-05] MEDS: WARFARIN 2 MG TAB PO ONE (17:59)
[2023-05-06 05:46] LABS: Prothrombin Time 19.8 sec (10.0-12.5)
[2023-05-06 07:56] VITALS: RESP 16
[2023-05-06 08:47] LABS: Basophils # (A) 0.06 X 10*3/uL (0.00-0.10); Basophils % (A) 0.9 %; Eosinophils # (A) 0.16 X 10*3/uL (0.04-0.35); Eosinophils % (A) 2.4 %; HCT 28.6 % (39.6-50.0); HGB 8.8 g/dL (13.0-17.0); Lymphocytes # (A) 0.69 X 10*3/uL (0.90-5.00); Lymphocytes % (A) 10.2 %; MCH 29.6 pg (27.0-32.0); MCHC 30.8 g/dL (32.0-37.0); MCV 96.3 FL (80.0-97.0); Mean Platelet Volume 9.3 FL (9.5-12.2); Monocytes # (A) 0.77 X 10*3/uL (0.20-1.00); Monocytes % (A) 11.4 %; NRBC Per 100 WBC 0 X 10*3/uL (0.00-0.01); Neutrophils # (A) 5.06 X 10*3/uL (1.80-7.70); Neutrophils % (A) 74.7 %; Platelet Count 290 X 10*3/uL (140-440); RBC 2.97 X 10*6/uL (4.40-5.60); RDW 15.1 % (11.5-14.5); WBC 6.77 X 10*3/uL (4.50-10.00)
[2023-05-06 08:55] LABS: BUN/Creat Ratio 37.73 Ratio (12.00-20.00); Blood Urea Nitrogen 41.5 mg/dL (9.0-27.0); Calcium 9.9 mg/dL (8.7-10.3); Carbon Dioxide 34.7 mmol/L (21.6-31.8); Chloride 98 mmol/L (96-109); Glucose 102 mg/dL (70-110); Magnesium 1.8 mg/dL (1.5-2.4); Potassium 4.5 mmol/L (3.5-5.5); Sodium 141 mmol/L (135-145)
[2023-05-06] MEDS ORDERED: DEXTROSE 50% SYRINGE 50 ML IVP PRN ×2 (12:04)
--- NOTE | 2023-05-06 12:07 | P.DS ---
Providers Date of admission: 05/01/23 16:42 Expected date of discharge: 05/06/23 Attending physician: Tan Bey Consults: 05/01/23 17:14 Consult Physician Routine Consulting Provider: Lorne Mejía Consult Reason/Comments: icu Do you want consulting provider notified?: Yes Consult Physician Routine Consulting Provider: Low Sloan Consult Reason/Comments: hypoNa Do you want consulting provider notified?: Yes 05/02/23 19:11 Consult Physician Routine Consulting Provider: Sergo Mcdonald Consult Reason/Comments: recent urology surgery and chronic IDC Do you want consulting provider notified?: Yes 05/05/23 19:19 Consult Physician Urgent Consulting Provider: Jim Farah Consult Reason/Comments: Afib/Heart rate into the 150's Do you want consulting provider notified?: Yes Primary care physician: [facility] Course: Final Diagnoses: (1) Acute hypochloremic hyponatremia, etiology unclear, possibly due to urinary retention ,obstructive uropathy. Reported malfunctioning Felder catheter replaced in the ER. Status post hypertonic saline infusion.Urine osmolality 207. Urine sodium less than 20. Cortisol level not low. TSH normal. (2) Acute metabolic encephalopathy secondary to the above, resolved (3) Hypotension, status post pressor dependent, etiology unclear, possibly drug- induced, along with impaired LV function, EF 25%,* bisoprolol resumed 05/05/2023. Resume Entresto in the next 24 to 48 hours pending pressure permits.* (4) Acute renal failure secondary to obstructive uropathy, diuretics (4) Possible acute UTI, secondary to chronic Felder catheter, culture in progress, in a patient with history of recurrent UTIs (4) Chronic indwelling Felder catheter. Recent bladder surgery reported- obstructive uropathy secondary to BPH Current Visit: Yes Status: Acute Code(s): Z97.8 - PRESENCE OF OTHER SPECIFIED DEVICES SNOMED Code(s): 540234321 (4) COPD, advanced with bullous emphysema and worsening bibasilar opacities reported per chest x-ray Current Visit: Yes Status: Acute Code(s): J44.1 - CHRONIC OBSTRUCTIVE PULMONARY DISEASE W (ACUTE) EXACERBATION SNOMED Code(s): 418596373 (2) Chronic hypoxic respiratory failure (3) Anemia Current Visit: No Status: Acute Code(s): D64.9 - ANEMIA, UNSPECIFIED SNOMED Code(s): 095502069 (4) Degenerative scoliosis in adult patient Current Visit: No Status: Acute Code(s): M41.50 - OTHER SECONDARY SCOLIOSIS, SITE UNSPECIFIED SNOMED Code(s): 719664070 (5) H/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 Current Visit: No Status: Acute Code(s): Z95.3 - PRESENCE OF XENOGENIC HEART VALVE SNOMED Code(s): 237751817 (6) History of endovascular stent graft for abdominal aortic aneurysm (AAA) Current Visit: No Status: Acute Code(s): Z95.828 - PRESENCE OF OTHER VASCULAR IMPLANTS AND GRAFTS SNOMED Code(s): 070165780801661 (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 Current Visit: No Status: Acute Code(s): Z79.01 - HANDKERCHIEF FOLDER (CURRENT) USE OF ANTICOAGULANTS SNOMED Code(s): 430671054 (8) Mixed hyperlipidemia Current Visit: No Status: Acute Code(s): E78.2 - MIXED HYPERLIPIDEMIA SNOMED Code(s): 411815665 (9) persistent atrial fibrillation, rate controlled, maintained on anticoagulation (10) Pulmonary hypertension Current Visit: No Status: Acute Code(s): I27.20 - PULMONARY HYPERTENSION, UNSPECIFIED SNOMED Code(s): 24232070 (11) Stage III chronic kidney disease Current Visit: No Status: Acute Code(s): N18.30 - CHRONIC KIDNEY DISEASE, STAGE 3 UNSPECIFIED SNOMED Code(s): 359993449 (12) Systolic congestive heart failure, chronic, with nonischemic cardiomyopathy Current Visit: No Status: Acute Code(s): I50.20 - UNSPECIFIED SYSTOLIC (CONGESTIVE) HEART FAILURE SNOMED Code(s): 87619798 (13) recurrent UTI, maintained on empiric antibiotics, completed treatment. Hospital course: 05/02/2023 this is an 83-year-old gentleman with past medical history significant for advanced COPD, chronic hypoxic respiratory failure, atrial fibrillation, chronic systolic CHF, CKD 3A, former nicotine dependence, multiple other medical issues .Patient was brought into the ER for malfunctioning Felder catheter, shortness of breath, increased weakness. Felder catheter replaced with return not documented. Apparently patient had a recent bladder surgery-attempting to obtain records. Patient does have history of chronic Felder catheter. Saw Repairer reported about 800 mL noted during his initial assessment last night, post Felder catheter exchange. Discovered to be in severe hyponatremia with sodium 108. Placed on 3% hypertonic saline infusion. Sodium improving, up to 114, with hypertonic solution discontinued. IV fluid hydration on hold. Chloride increased to 80. averaging 60 mL/h of urine output hypotensive, on Levophed. Mentation improving with fluctuating confusion. Denies lightheadedness dizziness or focal deficits. Denies headache. Denies chest pain, palpitations. Chest x-ray reported COPD with bullous emphysema, worsening bibasilar opacities and possible trace effusions . UA reported osmolality 207, occasional bacteria, many WBC clumps, 37 WBCs, large leukocytes, negative nitrates 2+ glucose, trace protein, cloudy, culture pending. Maintained on ceftriaxone. Afebrile, normal WBC. Creatinine 1.3, baseline around 0.92. Hemoglobin 9.9, platelets 277. Anticoagulated on Coumadin, INR 2.2, ABGs noted. Magnesium 1.5. Evaluated by pulmonary and nephrology with recommendations noted. Hypertonic 3% IV saline drip has been discontinued, close monitoring of sodium with with recheck in 4 hours. Diuretics and Entresto on hold. prognosis guarded given multiple complex medical issues. 05/03/2023 Ankur was seen and evaluated in the intensive care unit. He is admitted for confusion and profound hyponatremia. Admission sodium was 108. Today it is 123. He had previously been on 3% hypertonic saline from critical care. Nephrology has seen him and urology was consulted. He had urinary retention and a malfunctioning Felder catheter on admission. He recently underwent a UroLift procedure last week and [place]. He had a Felder catheter for the past several years and had issues urinating after hospitalization. He is now resting comfortably intensive care unit today. He is a little confused, mentation is improved. He is a thin frail elderly male. He is in good spirits today. May 04, 2023: Patient remains in intensive care unit. He is much more lucid today. Sodium is now 126 as of this morning. Globin this morning is 9.5. Remains on Levophed for blood pressure control however they are able to decrease it. Critical care and nephrology are following. He has a Felder catheter to gravity for his urinary obstruction. Jozef on tamsulosin for this, ceftriaxone for antibiotic coverage May 05, 2023: Patient continues in the intensive care unit. He is awake alert and oriented today to baseline. Sodium is now 135. He is off Levophed. He remains anticoagulated with warfarin. He and I discussed rehabilitation for him at discharge. Case discussed with critical care, he is cleared to go to the floor at this time, will have PT OT take a look at him. Expect he will need ECF at discharge. Will continue his current medications and treatments. He will be reevaluated by family medicine in the next 24 hours. Bisprolol resumed yesterday, heart rate in the 90s, blood pressures soft, in the high 90s to low 100s, maintaining O2 sats in the high 90s on 2 L nasal cannula. Resume Entresto in the next 24 to 48 hours, pending pressure permits . Continue anticoagulation with warfarin and monitor the PT/INR. Most recent INR is at 2. 2 and the patient is being anticoagulated for chronic A-fib. Tiotropium on hold for now as the patient is having urinary retention, currently requiring Felder catheter. Significant clinical improvement. Status post 3% saline initially on admission, maintained on 1500 fluid restrictions, current sodium 141, creatinine 1.1. Maintaining O2 sats in the high 90s on 2 L nasal cannula. Blood pressure soft, in the high 90s to low 100s. Resume Entresto in the next 24 to 48 hours, pending pressure permits. Alert and oriented x 3. Cleared by security team lead/solder making laborer for discharge. Patient will be discharged to subacute rehab today in a stable condition with guarded prognosis pending final DC recommendations and clearance per nephrology. The impression and plan of care has been dictated as directed. : I performed a history and examination of this patient, discussed the same with the dictator. I agree with the dictator's note ,documented as a scribe. Any additional findings or plans will be noted. Patient Condition at Discharge: Stable Plan - Discharge Summary New Discharge Prescriptions: New Furosemide [Lasix] 40 mg PO DAILY tab Albuterol Nebulized [Ventolin Nebulized] 2.5 mg INHALATION RT-QID PRN ml PRN Reason: Shortness Of Breath Or Wheezing INSULIN LISPRO (HumaLOG) [humaLOG] 0 unit SQ ACHS #10 ml Ipratropium-Albuterol Nebulize [Duoneb 0.5 mg-3 mg/3 ml Soln] 3 ml INHALATION RT-QID each Continue Fluticasone Propion/Salmeterol [Wixela 100-50 Inhub] 1 puff INHALATION RT-BID Sertraline [Zoloft] 50 mg PO DAILY Tamsulosin [Flomax] 0.4 mg PO DAILY Warfarin Sodium 4 mg PO MOWEFR@2099 predniSONE 2.5 mg PO DAILY LORazepam [Ativan] 0.5 mg PO TID PRN #9 tab PRN Reason: Anxiety Sacubitril/Valsartan [Entresto 24 mg-26 mg Tablet] 2 tab PO BID Warfarin [Coumadin] 1 mg PO SUT@2099 Bisoprolol [Zebeta] 5 mg PO DAILY Discontinued Furosemide [Lasix] 20 mg PO HS Empagliflozin [Jardiance] 10 mg PO DAILY Ipratropium-Albuterol Nebulize [Duoneb 0.5 mg-3 mg/3 ml Soln] 3 ml INHALATION RT-QID PRN PRN Reason: Shortness Of Breath Furosemide [Lasix] 80 mg PO DAILY Tiotropium 2.5 Mcg/Puff [Spiriva Respimat 2.5 Mcg] 2 puff INHALATION RT-DAILY Discharge Medication List Fluticasone Propion/Salmeterol [Wixela 100-50 Inhub] 1 puff INHALATION RT-BID 05/05/22 [History] Sacubitril/Valsartan [Entresto 24 mg-26 mg Tablet] 2 tab PO BID 05/05/22 [History] Sertraline [Zoloft] 50 mg PO DAILY 05/05/22 [History] Warfarin [Coumadin] 1 mg PO SUTUTHSA@209907/12/22 [History] Tamsulosin [Flomax] 0.4 mg PO DAILY 08/30/22 [History] Warfarin Sodium 4 mg PO MOWEFR@209908/30/22 [History] Bisoprolol [Zebeta] 5 mg PO DAILY 05/01/23 [History] predniSONE 2.5 mg PO DAILY 05/01/23 [History] Albuterol Nebulized [Ventolin Nebulized] 2.5 mg INHALATION RT-QID PRN ml 05/06/23 [Rx] Furosemide [Lasix] 40 mg PO DAILY tab 05/06/23 [Rx] INSULIN LISPRO (HumaLOG) [humaLOG] 0 unit SQ ACHS #10 ml 05/06/23 [Rx] Ipratropium-Albuterol Nebulize [Duoneb 0.5 mg-3 mg/3 ml Soln] 3 ml INHALATION RT-QID each 05/06/23 [Rx] LORazepam [Ativan] 0.5 mg PO TID PRN #9 tab 05/06/23 [Rx] Follow up Appointment(s)/Referral(s): Sae Rodriguez MD [STAFF PHYSICIAN] - 3 Days Patient Instructions/Handouts: COPD (Chronic Obstructive Pulmonary Disease) (DC) Activity/Diet/Wound Care/Special Instructions: ECF; [facility] 2 L nasal cannula O2 CBC, BMP in 3 days PT INR daily Discharge Disposition: TRANSFER TO SNF/ECF
--- NOTE | 2023-05-06 12:11 | P.PN ---
Subjective Follow-up for hyponatremia. Status post 3% saline initially. Currently being diuresed. Sodium improved to 141 today. Serum creatinine at 1.1 No significant complaints. Objective - Vital Signs Vital signs: Vital Signs Temp 98.2 F 05/06/23 07:10 Pulse 92 05/06/23 11:25 Resp 16 05/06/23 07:10 BP 124/68 05/06/23 07:10 Pulse Ox 93 L 05/06/23 07:10 FiO2 Intake & Output 05/05/23 05/06/23 05/06/23 18:59 06:59 18:59 Intake Total 620 740 Output Total 1150 550 Balance -530 190 Weight 60 kg Intake: IV 120 0.9 KVO 70 cefTRIAXone 2 gm In 50 Sodium Chloride 0.9% 50 ml @ 100 mls/hr IVPB Q24HR [facility] Rx#:[id number] Oral 500 740 Output: Urine 1150 550 Other: Voiding Method Indwelling Catheter Indwelling Catheter Indwelling Catheter - Exam Patient is awake, comfortable, no acute distress Examination of the heart S1 and S2 Examination of the lungs bilateral breath sounds are heard Abdomen is soft nontender Examination of lower extremity shows no evidence of edema DRILLING FOREMAN exam grossly intact - Labs CBC & Chem 7: 05/06/23 04:56 05/06/23 04:56 Labs: Abnormal Lab Results - Last 24 Hours (Table) 05/06/23 05/06/23 05/06/23 Range/Units 04:56 04:56 04:56 RBC 2.97 L (4.40-5.60) X 10*6/uL Hgb 8.8 L (13.0-17.0) g/dL Hct 28.6 L (39.6-50.0) % MCHC 30.8 L (32.0-37.0) g/dL RDW 15.1 H (11.5-14.5) % MPV 9.3 L (9.5-12.2) FL Lymphocytes # 0.69 L (0.90-5.00) X 10*3/uL PT 19.8 H (10.0-12.5) sec INR 2.0 H (<1.2) Carbon Dioxide 34.7 H (21.6-31.8) mmol/L BUN 41.5 H (9.0-27.0) mg/dL BUN/Creatinine Ratio 37.73 H (12.00-20.00) Ratio Assessment and Plan Assessment: 1. Acute kidney injury secondary to hemodynamic ATN secondary to obstructive uropathy. Creatinine 1.1 today. Creatinine 0.92 in September 2022. 2. Hyponatremia secondary to urinary retention and excess fluid intake. Was also on Lasix outpatient. Now hypervolemic. Urine osmolality 207. Urine sodium less than 20. Cortisol level not low. TSH normal. 3. Chronic systolic CHF with ejection fraction of 25 to 30%. 4. Recent bladder surgery status post Felder catheter insertion and subsequent removal. Felder catheter had to be reinserted this admission due to retention. 5. Urinary retention. Has Felder catheter. On Flomax. 6. Hypomagnesemia from poor intake. Replaced. Better. 7. Hypotension, etiology unclear. Maintained on empiric antibiotics. Blood cultures negative thus far. Chest x-ray is unremarkable. Pyuria noted on UA although not significant. Urine culture not available. Cortisol level was not low. Plan: Decrease Lasix
[2023-05-06 12:35] VITALS: BP 98/50; TEMP 98.1
[2023-05-06 12:51] LABS: Glucose,Whole Blood 147 mg/dL (70-110)
[2023-05-06] MEDS: INSULIN ASPART (NovoLOG) 100 UNIT/ML VIAL SQ SCH (12:56)
[2023-05-06] MEDS: polyethylene glycoL 3350 17 GM POWD.PACK PO STA (13:14)
[2023-05-06 15:26] VITALS: PULSE 96
[2023-05-06 17:05] LABS: Glucose,Whole Blood 150 mg/dL (70-110)
[2023-05-06] MEDS: WARFARIN 2 MG TAB PO ONE (17:26)
--- NOTE | 2023-05-07 07:38 | CONS ---
CONSULTATION HISTORY OF PRESENT ILLNESS: Ankur is an 83-year-old gentleman with history of permanent atrial fibrillation and chronic systolic heart failure, who presented to hospital with and altered mental status as a result. His initial sodium was 108. He was intravascularly volume depleted with a BUN of 43 and creatinine of 1.3. The patient has a history of chronic systolic heart failure with an ejection fraction of 25% to 30% and has had prior mitral and aortic valve replacement. He has a history of abdominal aortic aneurysm, for which he underwent endovascular stent graft. History is also significant for permanent atrial fibrillation, for which he takes Coumadin, and chronic renal failure. I have been consulted after almost a week since his initial presentation because of atrial fibrillation with rapid ventricular rate that he had. This morning, at the time of my evaluation, his heart rate seems to be better controlled. He is on Coumadin. INR is therapeutic at 2. His sodium levels have improved. He is on bisoprolol 5 mg daily. If necessary, I will increase the dose. PAST MEDICAL HISTORY: Significant for mitral and aortic valve replacement, permanent atrial fibrillation, chronic systolic heart failure, and diabetes. CURRENT MEDICATIONS: Include: 1. Coumadin. 2. Prednisone. 3. Spiriva. 4. Flomax. 5. Entresto. 6. Ativan. 7. Lasix. 8. . 9. Zebeta. ALLERGIES: The patient is allergic to iodine and . FAMILY HISTORY: Negative for premature coronary artery disease. SOCIAL HISTORY: Negative for current smoking, EtOH abuse, or drug abuse. REVIEW OF SYSTEMS: A review of systems has been performed. Pertinents are as documented on exam. PHYSICAL EXAMINATION: GENERAL: Comfortable at rest. VITAL SIGNS: Stable. CHEST: Reveals good air entry bilaterally. HEART: Reveals first and second heart sounds. A grade 3/6 systolic murmur at the apex and an ejection systolic murmur at the right parasternal border. ABDOMEN: Soft. EXTREMITIES: Did not reveal any edema. Peripheral pulses are felt. PACKAGING DESIGNER: Did not reveal focal neurological deficits. LABORATORY DATA: Labs showed a hemoglobin of 8.8 and platelet count is 290. INR is 2. Potassium is 4.5, BUN is 41 with a creatinine of 1.1. ASSESSMENT: 1. Permanent atrial fibrillation. 2. History of mitral and aortic valve replacement. 3. Chronic systolic heart failure. 4. . PLAN: I am going to continue him on current medications. If the heart rate becomes elevated, we will go up on the dose of bisoprolol. ROSHNI / [place]: [id number] /
[2023-05-07] MEDS ORDERED: FUROSEMIDE 40 MG TAB PO SCH (09:00)
== END 2023-05-06 18:47 | DRG 698 ==
LOC: EC 14:52 → 4SSUR 16:42 → 2SICU 17:50 → 5NMEDONC 05-05 15:09
PROVIDERS: ADMIT Family Medicine; ATTEND Family Medicine
PROC: 3E053XZ Introduction of Vasopressor into Peripheral Artery, Percutaneous Approach (ICD-10-PCS; principal; 2023-05-01)
DX: T83.511A Infection and inflammatory reaction due to indwelling urethral catheter, initial encounter (principal); A41.9 Sepsis, unspecified organism; N17.0 Acute kidney failure with tubular necrosis; I50.23 Acute on chronic systolic (congestive) heart failure; R65.21 Severe sepsis with septic shock; G93.41 Metabolic encephalopathy; J96.11 Chronic respiratory failure with hypoxia; I48.19 Other persistent atrial fibrillation; I42.8 Other cardiomyopathies; E87.1 Hypo-osmolality and hyponatremia; N13.8 Other obstructive and reflux uropathy; Q23.1 Congenital insufficiency of aortic valve; T83.018A Breakdown (mechanical) of other urinary catheter, initial encounter; I27.20 Pulmonary hypertension, unspecified; E11.22 Type 2 diabetes mellitus with diabetic chronic kidney disease; E11.51 Type 2 diabetes mellitus with diabetic peripheral angiopathy without gangrene; J43.9 Emphysema, unspecified; N18.31 Chronic kidney disease, stage 3a; Z79.4 Long term (current) use of insulin; D63.1 Anemia in chronic kidney disease; M41.50 Other secondary scoliosis, site unspecified; N31.8 Other neuromuscular dysfunction of bladder; Z99.81 Dependence on supplemental oxygen; Z95.3 Presence of xenogenic heart valve; Z95.828 Presence of other vascular implants and grafts; R54 Age-related physical debility; E87.8 Other disorders of electrolyte and fluid balance, not elsewhere classified; E86.9 Volume depletion, unspecified; N40.1 Benign prostatic hyperplasia with lower urinary tract symptoms; E83.42 Hypomagnesemia; R33.8 Other retention of urine; E78.2 Mixed hyperlipidemia; Y73.1 Therapeutic (nonsurgical) and rehabilitative gastroenterology and urology devices associated with adverse incidents; Z86.79 Personal history of other diseases of the circulatory system; Z79.01 Long term (current) use of anticoagulants; Z87.891 Personal history of nicotine dependence; Z86.16 Personal history of COVID-19; Z87.19 Personal history of other diseases of the digestive system; Z79.899 Other long term (current) drug therapy; Z79.84 Long term (current) use of oral hypoglycemic drugs; Z79.51 Long term (current) use of inhaled steroids; Z88.8 Allergy status to other drugs, medicaments and biological substances; Z87.440 Personal history of urinary (tract) infections
CPT/HCPCS: 36415; 36600; 51702; 71045; 80048; 80053; 81001; 82533; 82550; 82805; 83605; 83690; 83735; 83880; 83930; 83935; 84100; 84295; 84300; 84443; 84484; 85025; 85610; 85730; 87040; 87635; 93005; 94640; 94760; 96361; 96365; 96366; 96367; 99291

== ENCOUNTER 2023-10-04 13:56 | Emergency (ER) | payer MEDICARE, BC ==
[2023-10-04] MEDS: SODIUM CHLORIDE 0.9% 500 ML 500 ML IV STA (14:40)
--- NOTE | 2023-10-04 14:51 | ED ---
Nausea/Vomiting/Diarrhea HPI - General Chief complaint: Syncope Stated complaint: Syncope Time Seen by Provider: 10/04/23 14:04 Source: patient, EMS, RN notes reviewed Mode of arrival: EMS Limitations: no limitations - History of Present Illness Initial comments: This is an 83-year-old male who presents to the emergency department for diarrhea and a near syncopal episode. Patient states that he had diarrhea starting 3 days ago. He took Imodium which was helpful, but states that it then returned again today. He also felt like he was going to pass out, prompting him to call EMS. Believes that he may be dehydrated. Denies any abdominal pain. He had nausea earlier that has since resolved. Patient is oxygen dependent due to COPD and reports mid back pain for the last couple of days. States that he tends to get this back pain on an intermittent basis, and attributes this to sleeping on a poor mattress. Denies any chest pain or worsening shortness of breath. MD complaint: diarrhea - Related Data Home Medications Medication Instructions Recorded Confirmed Fluticasone Propion/Salmeterol 1 puff INHALATION RT-BID 05/05/22 10/04/23 [Wixela 100-50 Inhub] Sertraline [Zoloft] 50 mg PO HS 05/05/22 10/04/23 Warfarin [Coumadin] 1 mg PO [id number]@199907/12/22 10/04/23 Tamsulosin [Flomax] 0.4 mg PO DAILY 08/30/22 10/04/23 Warfarin Sodium 4 mg PO MOWEFR@199908/30/22 10/04/23 Bisoprolol [Zebeta] 5 mg PO DAILY 05/01/23 10/04/23 LORazepam [Ativan] 0.5 mg PO BID PRN 10/04/23 10/04/23 Sacubitril/Valsartan [Entresto 49 1 tab PO BID 10/04/23 10/04/23 mg-51 mg Tablet] Tiotropium 2.5 Mcg/Puff [Spiriva 2 puff INHALATION RT-DAILY 10/04/23 10/04/23 Respimat 2.5 Mcg] predniSONE 2.5 mg PO DAILY 10/04/23 10/04/23 Previous Rx's Medication Instructions Recorded Ipratropium-Albuterol Nebulize 3 ml INHALATION RT-QID each 05/06/23 [Duoneb 0.5 mg-3 mg/3 ml Soln] Nitroglycerin Sl Tabs [Nitrostat] 0.4 mg SUBLINGUAL Q5M PRN tab 07/26/23 cefUROXime axetiL [Ceftin] 500 mg PO BID 7 Days #14 tab 10/04/23 Allergies Allergy/AdvReac Type Severity Reaction Status Date / Time empagliflozin Allergy Dyspnea Verified 10/04/23 15:55 [From Jardiance] iodine AdvReac Unknown Verified 10/04/23 15:55 morphine AdvReac Hallucinati Verified 10/04/23 15:55 ons Patches on chest Allergy Swelling, Uncoded 10/04/23 14:02 See Comment pain med (can't remember AdvReac Hallucinati Uncoded 10/04/23 14:02 name) ons Review of Systems ROS Statement: Those systems with pertinent positive or pertinent negative responses have been documented in the HPI. ROS Other: All systems not noted in ROS Statement are negative. Past Medical History Past Medical History: Atrial Fibrillation, Heart Failure, COPD, GI Bleed, Hyperlipidemia, Pneumonia, Renal Disease, Skin Disorder, Vascular Disorder Additional Past Medical History / Comment(s): GI bleed, gastritis, gastric ectasia, CKD stage III, past abdominal aortic aneurysm/had stent placed, vari cosities, PVD, past shingellis and occasionally will have R flank nerve pain, BPH. Covid 09/2022 History of Any Multi-Drug Resistant Organisms: MRSA Date of last positivie culture/infection: 03/19/22 MDRO Source:: Urine Past Surgical History: Cardiac Valve Replacement, Cholecystectomy, Heart Catheterization Additional Past Surgical History / Comment(s): Stent placed for lower abd aortic aneurysym, mitral valve replacement/bicuspid repair, EGD with ablation, colonoscopy, excision L cheek lesion/mass and lesion from scalp/all benign, ZEPHER VALVE PLACED 2 YRS AGO AT [facility] Past Anesthesia/Blood Transfusion Reactions: No Reported Reaction Date of Last Stent Placement:: 2015 Past Psychological History: Anxiety Smoking Status: Former smoker - Past Family History Mother Family Medical History: Myocardial Infarction ([place]) Additional Family Medical History / Comment(s): at a young age. Father Family Medical History: Hypertension General Exam General appearance: alert, in no apparent distress Head exam: Present: atraumatic, normocephalic, normal inspection Respiratory exam: Present: decreased breath sounds, prolonged expiratory Cardiovascular Exam: Present: regular rate, normal rhythm, normal heart sounds. Absent: systolic murmur, diastolic murmur, rubs, gallop, clicks GI/Abdominal exam: Present: soft, normal bowel sounds. Absent: distended, tenderness, guarding, rebound, rigid Neurological exam: Present: alert, oriented X3, CN II-XII intact Psychiatric exam: Present: normal affect, normal mood Skin exam: Present: warm, dry, intact, normal color. Absent: rash Course Vital Signs 10/04/23 10/04/23 10/04/23 13:57 19:15 20:01 Temperature 97.6 F 97.8 F Pulse Rate 78 76 85 Respiratory 18 18 16 Rate Blood Pressure 92/55 80/46 85/57 O2 Sat by Pulse 98 100 97 Oximetry 10/04/23 10/04/23 10/04/23 20:49 21:34 21:40 Temperature Pulse Rate 85 88 Respiratory Rate Blood Pressure 97/62 O2 Sat by Pulse Oximetry 10/04/23 22:50 Temperature 97.8 F Pulse Rate 83 Respiratory 18 Rate Blood Pressure 101/61 O2 Sat by Pulse 100 Oximetry Medical Decision Making - Medical Decision Making This is an 83 year old male who presents to the emergency department for diarrhea and weakness. Was pt. sent in by a medical professional or institution? @ -No Did you speak to anyone other than the patient for history? @ -No Did you review nursing and triage notes? @ -Yes, and I agree, it is accurate with regards to the patient's symptoms. Were old charts reviewed? @ -No Differential Diagnosis? @ -Differential Weakness: Hypoglycemia, shock, sepsis, hyponatremia, anemia, infection, [place], ETOH, adverse medicine reaction, overdose, stroke, this is not meant to be an all-inclusive list.\ EKG interpreted by me (3pts min.)? @ -EKG interpreted by me demonstrating the following: Atrial fibrillation. Ventricular rate 77 bpm, QRS duration 133 ms, QTc 422 ms. X-rays interpreted by me (1pt min.)? @ -Chest x-ray obtained. My interpretation identifies right basilar opacities. CT interpreted by me (1pt min.)? @ -Not obtained U/S interpreted by me (1pt. min.)? @ -Not obtained What testing was considered but not performed? (CT, X-rays, U/S, labs)? Why? @ -None What meds were considered but not given? Why? @ -None Did you discuss the management of the patient with other professionals? @ -Yes, Dr. Rodriguez, who advised reambulating the patient and continue trying to discharge home if possible. Did you reconcile home meds? @ -No Was smoking cessation discussed for >3mins.? @ -No Was critical care preformed (if so, how long)? @ -No Were there social determinants of health that impacted care today? How? (Homelessness, low income, unemployed, alcoholism, drug addiction, transportation, low edu. Level, literacy, decrease access to med. care, prison, rehab)? @ -No Was there de-escalation of care discussed even if they declined? (Discuss DNR or withdrawal of care, Hospice)? @ -No What co-morbidities impacted this encounter? (DM, HTN, Smoking, COPD, CAD, Cancer, CVA, Hep., AIDS, mental health diagnosis, sleep apnea, morbid obesity)? @ -A-fib, COPD Was patient admitted / discharged? @ -Discharged. Lab work demonstrates a hemoglobin of 8.7 which is stable when compared with prior values. Decreased renal function is also stable when compared with prior. He does have mild hyponatremia with a sodium of 130. COVID, influenza, and RSV testing negative. Urinalysis suggestive of infection and urine was sent for culture. We did collect a stool sample from the patient for testing. C. difficile was negative. Stool culture ordered as well, however this is a send out test. Chest x-ray demonstrates a similar right lower lobe hazy opacity which they advised could be either pulmonary edema, fibrotic change, or new acute airspace disease. Patient states that his breathing is stable and not any worse than usual. We did attempt to get the patient up several times, however each time he stood up he felt dizzy and felt like he was going to pass out. Prior to receiving fluid he was fairly hypotensive, with his lowest BP at 80/46. Patient's BP does however often run on the lower side. He was given a total of 1.5 L of fluids. Following fluid administration symptoms did improve as well as his BP, which increased to 97/62. Patient initially s tates that he was worried about going home and falling. Case discussed with Dr. Rodriguez who advised trying to get the patient up again and ambulate. This was discussed with the patient who states that he did continue to feel much better. Nursing staff got the patient up to ambulate with a walker, which is what he uses at home, which he did well with and was comfortable with discharge home at that time. He was given 1g of ceftriaxone in the emergency department for the UTI. Prescription for Ceftin provided for the UTI. Advised close follow-up with his PCP. Strict return parameters discussed. Case discussed with ED attending Dr. Chavarria Undiagnosed new problem with uncertain prognosis? @ -None Drug Therapy requiring intensive monitoring for toxicity (Heparin, Nitro, Insulin, Cardizem)? @ -None Were any procedures done? @ -None Diagnosis/symptom? @ -Diarrhea, dehydration, near syncope acute, UTI Acute, or Chronic, or Acute on Chronic? @ -Acute Uncomplicated (without systemic symptoms) or Complicated (systemic symptoms)? @ -Uncomplicated Side effects of treatment? @ -None Exacerbation, Progression, or Severe Exacerbation] @ -Not applicable Poses a threat to life or bodily function? @ -Unlikely - Lab Data Result diagrams: 10/04/23 14:46 10/04/23 14:46 Lab Results 10/04/23 10/04/23 10/04/23 Range/Units 14:46 14:46 14:46 WBC 7.0 (3.8-10.6) k/uL RBC 2.96 L (4.30-5.90) m/uL Hgb 8.7 L (13.0-17.5) gm/dL Hct 27.5 L (39.0-53.0) % MCV 92.7 (80.0-100.0) fL MCH 29.4 (25.0-35.0) pg MCHC 31.7 (31.0-37.0) g/dL RDW 15.2 (11.5-15.5) % Plt Count 130 L (150-450) k/uL MPV 8.8 Neutrophils % 85 % Lymphocytes % 8 % Monocytes % 5 % Eosinophils % 1 % Basophils % 0 % Neutrophils # 5.9 (1.3-7.7) k/uL Lymphocytes # 0.5 L (1.0-4.8) k/uL Monocytes # 0.3 (0-1.0) k/uL Eosinophils # 0.1 (0-0.7) k/uL Basophils # 0.0 (0-0.2) k/uL Hypochromasia Moderate PT 28.3 H (10.0-12.5) sec INR 2.9 H (<1.2) APTT 35.7 H (22.0-30.0) sec Sodium 130 L (137-145) mmol/L Potassium 3.6 (3.5-5.1) mmol/L Chloride 98 (98-107) mmol/L Carbon Dioxide 27 (22-30) mmol/L Anion Gap 5 mmol/L BUN 57 H (9-20) mg/dL Creatinine 1.54 H (0.66-1.25) mg/dL Est GFR (CKD-EPI)AfAm 48 (>60 ml/min/1.73 sqM) Est GFR (CKD-EPI)NonAf 41 (>60 ml/min/1.73 sqM) Glucose 109 H (74-99) mg/dL Calcium 8.6 (8.4-10.2) mg/dL Phosphorus 3.7 (2.5-4.5) mg/dL Magnesium 1.8 (1.6-2.3) mg/dL Total Bilirubin 0.4 (0.2-1.3) mg/dL AST 16 L (17-59) U/L ALT 10 (4-49) U/L Alkaline Phosphatase 44 (38-126) U/L Troponin I (0.000-0.034) ng/mL Total Protein 5.4 L (6.3-8.2) g/dL Albumin 3.2 L (3.5-5.0) g/dL Urine Color Urine Appearance (Clear) Urine pH (5.0-8.0) Ur Specific [place] (1.001-1.035) Urine Protein (Negative) Urine Glucose (UA) (Negative) Urine Ketones (Negative) Urine Blood (Negative) Urine Nitrite (Negative) Urine Bilirubin (Negative) Urine Urobilinogen (<2.0) mg/dL Ur Leukocyte Esterase (Negative) Urine RBC (0-5) /hpf Urine WBC (0-5) /hpf Urine WBC Clumps (None) /hpf Ur Squamous Epith Cells (0-4) /hpf Stool Lactoferrin (Negative) C. difficile (EIA) Intrp (Negative) Influenza Type A (PCR) (Not Detectd) Influenza Type B (PCR) (Not Detectd) RSV (PCR) (Not Detectd) SARS-CoV-2 (PCR) (Not Detectd) 10/04/23 10/04/23 10/04/23 Range/Units 14:46 14:46 16:14 WBC (3.8-10.6) k/uL RBC (4.30-5.90) m/uL Hgb (13.0-17.5) gm/dL Hct (39.0-53.0) % MCV (80.0-100.0) fL MCH (25.0-35.0) pg MCHC (31.0-37.0) g/dL RDW (11.5-15.5) % Plt Count (150-450) k/uL MPV Neutrophils % % Lymphocytes % % Monocytes % % Eosinophils % % Basophils % % Neutrophils # (1.3-7.7) k/uL Lymphocytes # (1.0-4.8) k/uL Monocytes # (0-1.0) k/uL Eosinophils # (0-0.7) k/uL Basophils # (0-0.2) k/uL Hypochromasia PT (10.0-12.5) sec INR (<1.2) APTT (22.0-30.0) sec Sodium (137-145) mmol/L Potassium (3.5-5.1) mmol/L Chloride (98-107) mmol/L Carbon Dioxide (22-30) mmol/L Anion Gap mmol/L BUN (9-20) mg/dL Creatinine (0.66-1.25) mg/dL Est GFR (CKD-EPI)AfAm (>60 ml/min/1.73 sqM) Est GFR (CKD-EPI)NonAf (>60 ml/min/1.73 sqM) Glucose (74-99) mg/dL Calcium (8.4-10.2) mg/dL Phosphorus (2.5-4.5) mg/dL Magnesium (1.6-2.3) mg/dL Total Bilirubin (0.2-1.3) mg/dL AST (17-59) U/L ALT (4-49) U/L Alkaline Phosphatase (38-126) U/L Troponin I <0.012 (0.000-0.034) ng/mL Total Protein (6.3-8.2) g/dL Albumin (3.5-5.0) g/dL Urine Color Colorless Urine Appearance Cloudy (Clear) Urine pH 6.5 (5.0-8.0) Ur Specific [place] 1.008 (1.001-1.035) Urine Protein Negative (Negative) Urine Glucose (UA) Negative (Negative) Urine Ketones Negative (Negative) Urine Blood Small H (Negative) Urine Nitrite Negative (Negative) Urine Bilirubin Negative (Negative) Urine Urobilinogen <2.0 (<2.0) mg/dL Ur Leukocyte Esterase Large H (Negative) Urine RBC 12 H (0-5) /hpf Urine WBC >182 H (0-5) /hpf Urine WBC Clumps Few H (None) /hpf Ur Squamous Epith Cells 2 (0-4) /hpf Stool Lactoferrin (Negative) C. difficile (EIA) Intrp (Negative) Influenza Type A (PCR) Not Detected (Not Detectd) Influenza Type B (PCR) Not Detected (Not Detectd) RSV (PCR) Not Detected (Not Detectd) SARS-CoV-2 (PCR) Not Detected (Not Detectd) 10/04/23 10/04/23 Range/Units 19:00 19:00 WBC (3.8-10.6) k/uL RBC (4.30-5.90) m/uL Hgb (13.0-17.5) gm/dL Hct (39.0-53.0) % MCV (80.0-100.0) fL MCH (25.0-35.0) pg MCHC (31.0-37.0) g/dL RDW (11.5-15.5) % Plt Count (150-450) k/uL MPV Neutrophils % % Lymphocytes % % Monocytes % % Eosinophils % % Basophils % % Neutrophils # (1.3-7.7) k/uL Lymphocytes # (1.0-4.8) k/uL Monocytes # (0-1.0) k/uL Eosinophils # (0-0.7) k/uL Basophils # (0-0.2) k/uL Hypochromasia PT (10.0-12.5) sec INR (<1.2) APTT (22.0-30.0) sec Sodium (137-145) mmol/L Potassium (3.5-5.1) mmol/L Chloride (98-107) mmol/L Carbon Dioxide (22-30) mmol/L Anion Gap mmol/L BUN (9-20) mg/dL Creatinine (0.66-1.25) mg/dL Est GFR (CKD-EPI)AfAm (>60 ml/min/1.73 sqM) Est GFR (CKD-EPI)NonAf (>60 ml/min/1.73 sqM) Glucose (74-99) mg/dL Calcium (8.4-10.2) mg/dL Phosphorus (2.5-4.5) mg/dL Magnesium (1.6-2.3) mg/dL Total Bilirubin (0.2-1.3) mg/dL AST (17-59) U/L ALT (4-49) U/L Alkaline Phosphatase (38-126) U/L Troponin I (0.000-0.034) ng/mL Total Protein (6.3-8.2) g/dL Albumin (3.5-5.0) g/dL Urine Color Urine Appearance (Clear) Urine pH (5.0-8.0) Ur Specific [place] (1.001-1.035) Urine Protein (Negative) Urine Glucose (UA) (Negative) Urine Ketones (Negative) Urine Blood (Negative) Urine Nitrite (Negative) Urine Bilirubin (Negative) Urine Urobilinogen (<2.0) mg/dL Ur Leukocyte Esterase (Negative) Urine RBC (0-5) /hpf Urine WBC (0-5) /hpf Urine WBC Clumps (None) /hpf Ur Squamous Epith Cells (0-4) /hpf Stool Lactoferrin Positive A (Negative) C. difficile (EIA) Intrp Negative (Negative) Influenza Type A (PCR) (Not Detectd) Influenza Type B (PCR) (Not Detectd) RSV (PCR) (Not Detectd) SARS-CoV-2 (PCR) (Not Detectd) - Radiology Data Radiology results: report reviewed, image reviewed Disposition Clinical Impression: Near syncope, Dehydration, Diarrhea, UTI (urinary tract infection) Disposition: HOME SELF-CARE Instructions (If sedation given, give patient instructions): Dehydration (ED), Acute Diarrhea (ED) Additional Instructions: Return to the emergency department with any new, worsening, or concerning symptoms. Take the antibiotic as prescribed for 7 days. You can continue trying to take the Imodium. Make sure you drink plenty of fluid. Follow up with your primary care provider in 1-2 days. Prescriptions: cefUROXime axetiL [Ceftin] 500 mg PO BID 7 Days #14 tab Is patient prescribed a controlled substance at d/c from ED?: No Referrals: Tan Bey Jr, DO [Primary Care Provider] - 1-2 days
[2023-10-04 14:55] LABS: Basophils % (A) 0 %; Eosinophils # (A) 0.1 k/uL (0-0.7); Eosinophils % (A) 1 %; HCT 27.5 % (39.0-53.0); HGB 8.7 gm/dL (13.0-17.5); Hypochromasia Moderate; Lymphocytes # (A) 0.5 k/uL (1.0-4.8); Lymphocytes % (A) 8 %; MCH 29.4 pg (25.0-35.0); MCHC 31.7 g/dL (31.0-37.0); MCV 92.7 fL (80.0-100.0); Mean Platelet Volume 8.8; Monocytes # (A) 0.3 k/uL (0-1.0); Monocytes % (A) 5 %; Neutrophils # (A) 5.9 k/uL (1.3-7.7); Neutrophils % (A) 85 %; Platelet Count 130 k/uL (150-450); RBC 2.96 m/uL (4.30-5.90); RDW 15.2 % (11.5-15.5)
[2023-10-04 15:03] LABS: INR 2.9 (<1.2); Partial Thromboplastin Time 35.7 sec (22.0-30.0); Prothrombin Time 28.3 sec (10.0-12.5)
--- NOTE | 2023-10-04 15:25 | XR ---
EXAMINATION TYPE: XR chest 2V DATE OF EXAM: 10/04/2023 3:18 PM CLINICAL INDICATION:Male, 83 years old with history of syncope; [facility] COMPARISON: Chest radiographs from multiple back to 09/06/2022. TECHNIQUE: XR chest 2V Frontal view of the chest. FINDINGS: Lungs/Pleura: There is flattening of the diaphragm with increased lucency of the lungs. Right basilar airspace opacities are again seen. No evidence of pneumothorax, pleural effusion or left focal conso lidation. Pulmonary vascularity: Unremarkable. Heart/mediastinum: Cardiomediastinal silhouette is unremarkable. Post aortic valve repair changes. Musculoskeletal: No acute osseous pathology. Midline sternotomy wires are noted. Other findings: None IMPRESSION: 1. Similar right lower lobe hazy opacities dating back to 07/21/2023 suggesting either pulmonary edema , fibrotic change or new acute airspace disease. 2. COPD changes.
[2023-10-04 15:27] LABS: ALT 10 U/L (4-49); AST 16 U/L (17-59); African American GFR (CKD) 48 (>60 ml/min/1.73 sqM); Albumin 3.2 g/dL (3.5-5.0); Alkaline Phosphatase 44 U/L (38-126); Anion Gap 5 mmol/L; Blood Urea Nitrogen 57 mg/dL (9-20); Calcium 8.6 mg/dL (8.4-10.2); Carbon Dioxide 27 mmol/L (22-30); Chloride 98 mmol/L (98-107); Glucose 109 mg/dL (74-99); Magnesium 1.8 mg/dL (1.6-2.3); Non-African American GFR(CKD) 41 (>60 ml/min/1.73 sqM); Phosphorus 3.7 mg/dL (2.5-4.5); Potassium 3.6 mmol/L (3.5-5.1); Sodium 130 mmol/L (137-145); Total Bilirubin 0.4 mg/dL (0.2-1.3); Total Protein 5.4 g/dL (6.3-8.2)
[2023-10-04 17:23] LABS: Appearance,Urine Cloudy (Clear); Bilirubin,Urine Negative (Negative); Blood,Urine Small (Negative); Color,Urine Colorless; Glucose,Urine (UA) Negative (Negative); Ketones,Urine Negative (Negative); Leukocyte Esterase,Urine Large (Negative); Nitrite,Urine Negative (Negative); PH, Urine 6.5 (5.0-8.0); Protein,Urine Negative (Negative); RBC,Urine 12 /hpf (0-5); Specific Gravity,Urine 1.008 (1.001-1.035); Squamous Epithelial Cell,Urine 2 /hpf (0-4); Urobilinogen,Urine <2.0 mg/dL (<2.0); WBC,Urine >182 /hpf (0-5)
[2023-10-04 19:17] VITALS: TEMP 97.8
[2023-10-04] MEDS: SODIUM CHLORIDE 0.9% 1,000 ML IV STA (19:17)
[2023-10-04] MEDS: cefTRIAXone IN SWFI 1,000 MG/10 ML SYRINGE IVP STA (19:24)
[2023-10-04] MEDS: DIPHENOX-ATROP 2.5-0.025 MG 1 EACH TAB PO STA (19:24)
[2023-10-04] MEDS: IPRATROPIUM-ALBUTEROL 3 ML NEB INHALATION STA (21:33)
[2023-10-04 22:51] VITALS: BP 101/61; PULSE 83; RESP 18
== END 2023-10-04 22:52 | disposition home or self-care (01) ==
LOC: EC 13:56
DX: R55 Syncope and collapse (principal); B96.5 Pseudomonas (aeruginosa) (mallei) (pseudomallei) as the cause of diseases classified elsewhere; E86.0 Dehydration; R19.7 Diarrhea, unspecified; N39.0 Urinary tract infection, site not specified; J44.9 Chronic obstructive pulmonary disease, unspecified; I48.91 Unspecified atrial fibrillation; Z87.891 Personal history of nicotine dependence; Z86.16 Personal history of COVID-19; Z88.5 Allergy status to narcotic agent; Z88.8 Allergy status to other drugs, medicaments and biological substances; Z91.041 Radiographic dye allergy status
CPT/HCPCS: 36415; 94640; 93005; 80053; 83735; 84100; 84484; 85025; 85610; 85730; 81001; 87324; 87086; 87045; 83630; 87077; 87186; 87046; 87636; 71046; 99285; 96374; 96361 ×6; J0696

== ENCOUNTER 2023-11-23 05:05 | Inpatient (IN) | payer MEDICARE, BC ==
--- NOTE | 2023-11-23 06:18 | ED ---
General Adult HPI - General Chief complaint: Nausea/Vomiting/Diarrhea Stated complaint: Diarrhea Time Seen by Provider: 11/23/23 05:24 Source: patient, EMS Mode of arrival: EMS Limitations: no limitations - History of Present Illness Initial comments: Patient is a pleasant 83-year-old gentleman with past medical history of COPD on 2 to 4 L ox nasal cannula, atrial fibrillation on warfarin, CHF presenting today for diarrhea. Patient states diarrhea is been ongoing for 3 days. Estimates that he has had 12-14 watery stools a day. Denies black or bloody stools. Did trial Imodium on the first day, took 2 doses. Did take 1 dose yesterday thinks that Imodium potentially improved symptoms however he was afraid to continue using it as he was unsure if it was safe to continue prolonged Imodium use. He denies any fevers, chest pain, shortness of breath, abdominal pain, dizziness, lightheadedness nausea, vomiting, dysuria or hematuria. No prior abdominal surgeries. He does state that just prior to his 3 days of diarrhea he did have multiple large solid stools. - Related Data Home Medications Medication Instructions Recorded Confirmed Fluticasone Propion/Salmeterol 1 puff INHALATION RT-BID 05/05/22 11/23/23 [Wixela 100-50 Inhub] Sertraline [Zoloft] 50 mg PO HS 05/05/22 11/23/23 Warfarin [Coumadin] 1 mg PO SUTUTHSA@199907/12/22 11/23/23 Tamsulosin [Flomax] 0.4 mg PO DAILY 08/30/22 11/23/23 Warfarin Sodium 4 mg PO MOWEFR@199908/30/22 11/23/23 Bisoprolol [Zebeta] 5 mg PO DAILY 05/01/23 11/23/23 LORazepam [Ativan] 0.5 mg PO BID PRN 10/04/23 11/23/23 Sacubitril/Valsartan [Entresto 49 1 tab PO BID@0800,1600 10/04/23 11/23/23 mg-51 mg Tablet] Tiotropium 2.5 Mcg/Puff [Spiriva 2 puff INHALATION RT-DAILY 10/04/23 11/23/23 Respimat 2.5 Mcg] Ferrous Sulfate [Feosol] 325 mg PO BID 11/23/23 11/23/23 Furosemide [Lasix] 40 mg PO DAILY 11/23/23 11/23/23 Ipratropium-Albuterol Nebulize 3 ml INHALATION RT-QID PRN 11/23/23 11/23/23 [Duoneb 0.5 mg-3 mg/3 ml Soln] predniSONE 2.5 mg PO DAILY 11/23/23 11/23/23 Previous Rx's Medication Instructions Recorded Nitroglycerin Sl Tabs [Nitrostat] 0.4 mg SUBLINGUAL Q5M PRN tab 07/26/23 Allergies Allergy/AdvReac Type Severity Reaction Status Date / Time empagliflozin Allergy Dyspnea Verified 11/23/23 09:10 [From Jardiance] iodine AdvReac Unknown Verified 11/23/23 09:10 morphine AdvReac Hallucinati Verified 11/23/23 09:10 ons Patches on chest Allergy Swelling, Uncoded 10/04/23 14:02 See Comment pain med (can't remember AdvReac Hallucinati Uncoded 10/04/23 14:02 name) ons Review of Systems ROS Statement: Those systems with pertinent positive or pertinent negative responses have been documented in the HPI. ROS Other: All systems not noted in ROS Statement are negative. Past Medical History Past Medical History: Atrial Fibrillation, Heart Failure, COPD, GI Bleed, Hyperlipidemia, Pneumonia, Renal Disease, Skin Disorder, Vascular Disorder Additional Past Medical History / Comment(s): GI bleed, gastritis, gastric ectasia, CKD stage III, past abdominal aortic aneurysm/had stent placed, varicosities, PVD, past shingellis and occasionally will have R flank nerve pain, BPH. Covid 09/2022 History of Any Multi-Drug Resistant Organisms: MRSA Date of last positivie culture/infection: 03/19/22 MDRO Source:: Urine Past Surgical History: Cardiac Valve Replacement, Cholecystectomy, Heart Catheterization Additional Past Surgical History / Comment(s): Stent placed for lower abd aortic aneurysym, mitral valve replacement/bicuspid repair, EGD with ablation, colonoscopy, excision L cheek lesion/mass and lesion from scalp/all benign, ZEPHER VALVE PLACED 2 YRS AGO AT [facility] Past Anesthesia/Blood Transfusion Reactions: No Reported Reaction Date of Last Stent Placement:: 2015 Past Psychological History: Anxiety Smoking Status: Former smoker Past Alcohol Use History: Occasional Past Drug Use History: None Reported - Past Family History Mother Family Medical History: Myocardial Infarction ([place]) Additional Family Medical History / Comment(s): at a young age. Father Family Medical History: Hypertension General Exam - General Exam Comments Initial Comments: PE: CONSTITUTIONAL: No apparent distress, well appearing, on 4 L oxygen nasal cannula SKIN: Warm, dry, no jaundice, hives or petechiae EYES: Pupils are equally round, extraocular movements intact without nystagmus, clear conjunctiva, non-icteric sclera HENT: Normocephalic, atraumatic, dry mucus membranes, oropharynx clear without exudates NECK: , Full range of motion, normal appearance PULMONARY: Scant wheezes in lower lung mark bilaterally, no rhonchi, or rales, normal excursion, no accessory muscle use and no stridor CARDIOVASCULAR: Regular rate, rhythm, normal S1 and S2. No appreciated murmurs, rubs or gallops. Strong radial pulses with intact distal perfusion. No lower extremity edema GASTROINTESTINAL: Hyperactive bowel sounds, soft, non-tender, non-distended, no palpable masses, no rebound or guarding. No hepatosplenomegaly MUSCULOSKELETAL: Extremities have no gross deformity, no edema, redness, or swelling. No calf swelling NEUROLOGIC:_a/o x 3, GCS 15, normal mentation and speech. Moves all extremities x 4 without motor or sensory deficit PSYCHIATRIC:_normal mood and affect, thought process is clear and linear Limitations: no limitations Course Vital Signs 11/23/23 11/23/23 11/23/23 05:06 07:20 08:20 Temperature 97.7 F Pulse Rate 81 72 75 Respiratory 18 18 18 Rate Blood Pressure 113/61 95/57 96/66 O2 Sat by Pulse 99 94 L 94 L Oximetry 11/23/23 10:54 Temperature Pulse Rate 78 Respiratory 18 Rate Blood Pressure 100/57 O2 Sat by Pulse 94 L Oximetry Medical Decision Making - Medical Decision Making Was pt. sent in by a medical professional or institution (, PA, RESEARCH INTERVIEWER, urgent care, hospital, or [facility]...) When possible be specific @ -No Did you speak to anyone other than the patient for history (EMS, parent, family, police, friend...)? What history was obtained from this source @ -No Did you review nursing and triage notes (agree or disagree)? Why? @ -I reviewed and agree with nursing and triage notes-I agree, patient endorsed diarrhea for 3 days, improving but not resolved Were old charts reviewed (outside hosp., previous admission, EMS record, old EKG, old radiological studies, urgent care reports/EKG's, ch[facility] records)? Report findings @ patient recently in the emergency department on 10/24/2023 presenting for diarrhea near syncope. During that visit, patient was noted to be mildly hyponatremic, initially hypotensive with blood pressure 80/46 and associated symptoms of dizziness, was ultima Differential diagnosis remains broad however top considerations include gastroenteritis, viral infection, colitis, C. difficile infection, partial bowel obstruction, UTI, this is not all-inclusive list EKG interpreted by me (3pts min.). @ -None done X-rays interpreted by me (1pt min.). @ -None done CT interpreted by me (1pt min.). @ -No evidence of perforation or obstruction U/S interpreted by me (1pt. min.). @ -None done What testing was considered but not performed or refused? (CT, X-rays, U/S, labs)? Why? @ -I did consider CT abdomen pelvis with contrast however patient has a documented contrast allergy, and given soft nontender abdomen I feel that the risk of allergic reaction to contrast outweighs any potential benefit What meds were considered but not given or refused? Why? @ -None Did you discuss the management of the patient with other professionals (professionals i.e. , PA, RESEARCH INTERVIEWER, lab, RT, psych nurse, social service agency director, wire strander, teacher, nursing officer, classification case manager)? Give summary @ -No Was smoking cessation discussed for >3mins.? @ -No Was critical care preformed (if so, how long)? @ -No Were there social determinants of health that impacted care today? How? (Homelessness, low income, unemployed, alcoholism, drug addiction, transportation, low edu. Level, literacy, decrease access to med. care, intermediate, rehab)? @ -No Was there de-escalation of care discussed even if they declined (Discuss DNR or withdrawal of care, Hospice)? @ -No What co-morbidities impacted this encounter? (DM, HTN, Smoking, COPD, CAD, Cancer, CVA, ARF, Chemo, Hep., AIDS, mental health diagnosis, sleep apnea, morbid obesity)? @ -None COPD, atrial fibrillation on warfarin Was patient admitted / discharged? Hospital course, mention meds given and route, prescriptions, significant lab abnormalities, going to OR and other p ertinent info. @ -Hospital course Patient is a pleasant 83-year-old gentleman past medical history of COPD on 2 to 4 L oxygen nasal cannula at baseline, atrial fibrillation on warfarin presenting today for 3 days of diarrhea. Does state is gradually proving. Patient vitally stable on arrival. Dry mucous membranes on exam. Scant wheezes in the lower lung mark bilaterally, does patient denies any shortness of breath, cough, fevers chest pain and does have noted history of COPD. Is on baseline oxygen requirement of 4 L. Abdomen is soft and nontender with no masses but hyperactive bowel sounds. Will gradually fluid resuscitate given history of CHF. C. difficile testing ordered, Cepheid panel ordered, CBC, CMP, lipase amylase, UA and CT Abdo pelvis without contrast. Patient agreeable with plan of care. Reviewed patient's labs, hemoglobin stable at 9, stable from prior, during his visit on 10/24/2023 was noted to be 8.7, however hyponatremia noted, sodium 125 previously on 10/04/2023 was 130, patient noted to have CANDACE with creatinine 2.47, GFR 23 previously on 10/04/2023 was 41, urinalysis reviewed and showed moderate blood, large leukocyte esterase, greater than 182 white blood cells, many white blood cell clumps, moderate bacteria negative nitrates. Ordered cefepime for UTI, patient is receiving a second 500 cc bolus in addition to first provided by EMS however will gradually fluid resuscitate as I suspect CANDACE secondary to volume depletion however with history of CHF want to avoid fluid overload. Anticipate admission. Updated patient to results and plan for admission. He is agreeable with plan of care. Case presented to admitting physician, Dr. Rodriguez, who kindly accepts for admission. Admission orders placed. Undiagnosed new problem with uncertain prognosis? @ -No Drug Therapy requiring intensive monitoring for toxicity (Heparin, Nitro, Insulin, Cardizem)? @ -No Were any procedures done? @ -No Diagnosis/symptom? @ -Diarrhea, dehydration, hyponatremia, CANDACE, UTI Acute, or Chronic, or Acute on Chronic? @ -Acute Uncomplicated (without systemic symptoms) or Complicated (systemic symptoms)? @ -Complicated Side effects of treatment? @ -No Exacerbation, Progression, or Severe Exacerbation? @ -No Poses a threat to life or bodily function? How? (Chest pain, [place], [place], pneumonia, PE, COPD, DKA, ARF, appy, cholecystitis, CVA, Diverticulitis, Homicidal, Suic idal, threat to staff... and all critical care pts) @ -Potentially, if allowed to continued untreated CANDACE could progress to renal failure, hyponatremia could result in severe hyponatremia, volume depletion could result in hypotension and ultimately shock, etc - Lab Data Result diagrams: 11/23/23 05:20 11/23/23 05:20 Lab Results 11/23/23 11/23/23 11/23/23 Range/Units 05:20 05:20 06:30 WBC 5.2 (3.8-10.6) k/uL RBC 3.11 L (4.30-5.90) m/uL Hgb 9.0 L (13.0-17.5) gm/dL Hct 29.9 L (39.0-53.0) % MCV 96.0 (80.0-100.0) fL MCH 28.8 (25.0-35.0) pg MCHC 30.0 L (31.0-37.0) g/dL RDW 15.4 (11.5-15.5) % Plt Count 220 (150-450) k/uL MPV 7.5 Neutrophils % 76 % Lymphocytes % 12 % Monocytes % 6 % Eosinophils % 3 % Basophils % 0 % Neutrophils # 4.0 (1.3-7.7) k/uL Lymphocytes # 0.6 L (1.0-4.8) k/uL Monocytes # 0.3 (0-1.0) k/uL Eosinophils # 0.1 (0-0.7) k/uL Basophils # 0.0 (0-0.2) k/uL Hypochromasia Marked Sodium 125 L (137-145) mmol/L Potassium 3.9 (3.5-5.1) mmol/L Chloride 110 H (98-107) mmol/L Carbon Dioxide 19 L (22-30) mmol/L Anion Gap -4 mmol/L BUN 83 H (9-20) mg/dL Creatinine 2.47 H (0.66-1.25) mg/dL Est GFR (CKD-EPI)AfAm 27 (>60 ml/min/1.73 sqM) Est GFR (CKD-EPI)NonAf 23 (>60 ml/min/1.73 sqM) Glucose 97 (74-99) mg/dL Calcium 8.6 (8.4-10.2) mg/dL Total Bilirubin 0.3 (0.2-1.3) mg/dL AST 16 L (17-59) U/L ALT 10 (4-49) U/L Alkaline Phosphatase 44 (38-126) U/L Total Protein 5.9 L (6.3-8.2) g/dL Albumin 3.6 (3.5-5.0) g/dL Amylase 32 (30-110) U/L Lipase 54 (23-300) U/L Urine Color Light Yellow Urine Appearance Turbid (Clear) Urine pH 5.5 (5.0-8.0) Ur Specific [place] 1.017 (1.001-1.035) Urine Protein 1+ H (Negative) Urine Glucose (UA) Negative (Negative) Urine Ketones Negative (Negative) Urine Blood Moderate H (Negative) Urine Nitrite Negative (Negative) Urine Bilirubin Negative (Negative) Urine Urobilinogen <2.0 (<2.0) mg/dL Ur Leukocyte Esterase Large H (Negative) Urine RBC 126 H (0-5) /hpf Urine WBC >182 H (0-5) /hpf Urine WBC Clumps Many H (None) /hpf Urine Bacteria Moderate H (None) /hpf Urine Mucus Rare H (None) /hpf C. difficile (EIA) Intrp (Negative) Influenza Type A (PCR) (Not Detectd) Influenza Type B (PCR) (Not Detectd) RSV (PCR) (Not Detectd) SARS-CoV-2 (PCR) (Not Detectd) 11/23/23 11/23/23 Range/Units 06:30 06:30 WBC (3.8-10.6) k/uL RBC (4.30-5.90) m/uL Hgb (13.0-17.5) gm/dL Hct (39.0-53.0) % MCV (80.0-100.0) fL MCH (25.0-35.0) pg MCHC (31.0-37.0) g/dL RDW (11.5-15.5) % Plt Count (150-450) k/uL MPV Neutrophils % % Lymphocytes % % Monocytes % % Eosinophils % % Basophils % % Neutrophils # (1.3-7.7) k/uL Lymphocytes # (1.0-4.8) k/uL Monocytes # (0-1.0) k/uL Eosinophils # (0-0.7) k/uL Basophils # (0-0.2) k/uL Hypochromasia Sodium (137-145) mmol/L Potassium (3.5-5.1) mmol/L Chloride (98-107) mmol/L Carbon Dioxide (22-30) mmol/L Anion Gap mmol/L BUN (9-20) mg/dL Creatinine (0.66-1.25) mg/dL Est GFR (CKD-EPI)AfAm (>60 ml/min/1.73 sqM) Est GFR (CKD-EPI)NonAf (>60 ml/min/1.73 sqM) Glucose (74-99) mg/dL Calcium (8.4-10.2) mg/dL Total Bilirubin (0.2-1.3) mg/dL AST (17-59) U/L ALT (4-49) U/L Alkaline Phosphatase (38-126) U/L Total Protein (6.3-8.2) g/dL Albumin (3.5-5.0) g/dL Amylase (30-110) U/L Lipase (23-300) U/L Urine Color Urine Appearance (Clear) Urine pH (5.0-8.0) Ur Specific [place] (1.001-1.035) Urine Protein (Negative) Urine Glucose (UA) (Negative) Urine Ketones (Negative) Urine Blood (Negative) Urine Nitrite (Negative) Urine Bilirubin (Negative) Urine Urobilinogen (<2.0) mg/dL Ur Leukocyte Esterase (Negative) Urine RBC (0-5) /hpf Urine WBC (0-5) /hpf Urine WBC Clumps (None) /hpf Urine Bacteria (None) /hpf Urine Mucus (None) /hpf C. difficile (EIA) Intrp Negative (Negative) Influenza Type A (PCR) Not Detected (Not Detectd) Influenza Type B (PCR) Not Detected (Not Detectd) RSV (PCR) Not Detected (Not Detectd) SARS-CoV-2 (PCR) Not Detected (Not Detectd) Disposition Clinical Impression: Dehydration, Hyponatremia, CANDACE (acute kidney injury), UTI (urinary tract infection) Disposition: ADMITTED IP TO THIS HOSP Condition: Stable
[2023-11-23] MEDS: SODIUM CHLORIDE 0.9% 500 ML 500 ML IV STA (06:30)
[2023-11-23 06:41] LABS: Basophils % (A) 0 %; Eosinophils # (A) 0.1 k/uL (0-0.7); Eosinophils % (A) 3 %; HCT 29.9 % (39.0-53.0); Hypochromasia Marked; Lymphocytes # (A) 0.6 k/uL (1.0-4.8); Lymphocytes % (A) 12 %; MCH 28.8 pg (25.0-35.0); Mean Platelet Volume 7.5; Monocytes # (A) 0.3 k/uL (0-1.0); Monocytes % (A) 6 %; Neutrophils % (A) 76 %; Platelet Count 220 k/uL (150-450); RBC 3.11 m/uL (4.30-5.90); RDW 15.4 % (11.5-15.5); WBC 5.2 k/uL (3.8-10.6)
[2023-11-23 06:58] LABS: Appearance,Urine Turbid (Clear); Bacteria,Urine Moderate /hpf; Bilirubin,Urine Negative (Negative); Blood,Urine Moderate (Negative); Color,Urine Light Yellow; Glucose,Urine (UA) Negative (Negative); Ketones,Urine Negative (Negative); Leukocyte Esterase,Urine Large (Negative); Mucus,Urine Rare /hpf; Nitrite,Urine Negative (Negative); PH, Urine 5.5 (5.0-8.0); Protein,Urine 1+ (Negative); RBC,Urine 126 /hpf (0-5); Specific Gravity,Urine 1.017 (1.001-1.035); Urobilinogen,Urine <2.0 mg/dL (<2.0); WBC,Urine >182 /hpf (0-5)
--- NOTE | 2023-11-23 06:58 | CT ---
EXAMINATION TYPE: CT abdomen pelvis wo con DATE OF EXAM: 11/23/2023 HISTORY: diarrhea x [address] DLP: 339.9 mGycm. Automated Exposure Control for Dose Reduction was Utilized. TECHNIQUE: CT scan of the abdomen and pelvis is performed without oral or IV contrast. COMPARISON: Prior CT abdomen 2012 FINDINGS: Within the limitations of a non-contrast study, the following observations are made. LUNG BASES: Surgical change at the level of the mitral valve. LIVER/GB: Cholecystectomy clips are redemonstrated. PANCREAS: No significant abnormality is seen. SPLEEN: No significant abnormality is seen. ADRENALS: No significant abnormality is seen. KIDNEYS: There is near 1.9 cm exophytic thin-walled cyst laterally right kidney axial image 20. No re nal stones or hydronephrosis seen bilaterally. Mild distended bladder. BOWEL: Fluid seen in nondistended small bowel loops. Fluid extends into prominent cecum and other por tions of colon. No abnormal bowel dilatation. GENITAL ORGANS: Surgical changes superior aspect the prostate gland. LYMPH NODES: No greater than 1cm abdominal or pelvic lymph nodes are appreciated. OSSEOUS STRUCTURES: Multilevel vacuum disc phenomenon. Moderate to severe disc space narrowing at the lumbosacral junction. OTHER: There is aortobiiliac stent graft through larger AAA measuring up to 5.3 cm transversely it me asures 35. IMPRESSION: 1. No bowel obstruction. There is fluid and air-fluid levels throughout the colon which is abnormal f inding and correlates with patient's history of diarrhea. [facility], , 11/23/2023 6:55 AM
[2023-11-23 06:59] LABS: ALT 10 U/L (4-49); AST 16 U/L (17-59); African American GFR (CKD) 27 (>60 ml/min/1.73 sqM); Albumin 3.6 g/dL (3.5-5.0); Alkaline Phosphatase 44 U/L (38-126); Amylase 32 U/L (30-110); Anion Gap -4 mmol/L; Blood Urea Nitrogen 83 mg/dL (9-20); Calcium 8.6 mg/dL (8.4-10.2); Carbon Dioxide 19 mmol/L (22-30); Chloride 110 mmol/L (98-107); Glucose 97 mg/dL (74-99); Lipase 54 U/L (23-300); Non-African American GFR(CKD) 23 (>60 ml/min/1.73 sqM); Potassium 3.9 mmol/L (3.5-5.1); Sodium 125 mmol/L (137-145); Total Bilirubin 0.3 mg/dL (0.2-1.3); Total Protein 5.9 g/dL (6.3-8.2)
[2023-11-23] MEDS ORDERED: MAG HYDROX/AL HYDROX/SIMETH 30 ML CUP PO PRN (07:37)
[2023-11-23] MEDS ORDERED: NALOXONE 0.4 MG/ML 1 ML VIAL IV PRN (07:37)
[2023-11-23] MEDS ORDERED: CALCIUM CARBONATE 500 MG CHEWABLE PO PRN (07:37)
[2023-11-23] MEDS: FAMOTIDINE 20 MG TAB PO SCH (08:10)
[2023-11-23] MEDS: CEFEPIME 2 GM in SODIUM CHLORIDE 0.9% 100 ML IVPB STA (08:10)
[2023-11-23] MEDS ORDERED: NITROGLYCERIN SL TABS 0.4 MG TAB SUBLINGUAL PRN (09:50)
--- NOTE | 2023-11-23 09:53 | P.HPIM ---
History of Present Illness Samir is a 83-year-old male well-known to the practice. He reports 3- day history of incessant diarrhea with multiple episodes of stools. He has a long history of atrial fibrillation, congestive heart failure, chronic renal failure, and a previous history of urinary retention with Felder catheter. Felder catheter was discontinued about 6 months ago and he had been doing well urinating without it. At this time he says he is urinating. He denies any chest pains pressures or shortness of breath that is different than any other time. He reports his stools are normal in color. Vitals are stable laboratory studies show a hyponatremia., He is chronically anemic hemoglobin is 9, BUN and creatinine are 83 and 2.47 with a GFR of 23. He is in good spirits. Review of Systems All systems: negative Past Medical History Past Medical History: Atrial Fibrillation, Heart Failure, COPD, GI Bleed, Hyperlipidemia, Pneumonia, Renal Disease, Skin Disorder, Vascular Disorder Additional Past Medical History / Comment(s): GI bleed, gastritis, gastric ectasia, CKD stage III, past abdominal aortic aneurysm/had stent placed, varicosities, PVD, past shingellis and occasionally will have R flank nerve pain, BPH. Covid 09/2022 History of Any Multi-Drug Resistant Organisms: MRSA Date of last positivie culture/infection: 03/19/22 MDRO Source:: Urine Past Surgical History: Cardiac Valve Replacement, Cholecystectomy, Heart Cath eterization Additional Past Surgical History / Comment(s): Stent placed for lower abd aortic aneurysym, mitral valve replacement/bicuspid repair, EGD with ablation, colonoscopy, excision L cheek lesion/mass and lesion from scalp/all benign, ZEPHER VALVE PLACED 2 YRS AGO AT [facility] Past Anesthesia/Blood Transfusion Reactions: No Reported Reaction Date of Last Stent Placement:: 2015 Past Psychological History: Anxiety Smoking Status: Former smoker Past Alcohol Use History: Occasional Past Drug Use History: None Reported - Past Family History Mother Family Medical History: Myocardial Infarction ([place]) Additional Family Medical History / Comment(s): at a young age. Father Family Medical History: Hypertension Medications and Allergies Home Medications Medication Instructions Recorded Confirmed Type Fluticasone Propion/Salmeterol 1 puff INHALATION RT-BID 05/05/22 11/23/23 History [Wixela 100-50 Inhub] Sertraline [Zoloft] 50 mg PO HS 05/05/22 11/23/23 History Warfarin [Coumadin] 1 mg PO SUTUTHSA@199907/12/22 11/23/23 History Tamsulosin [Flomax] 0.4 mg PO DAILY 08/30/22 11/23/23 History Warfarin Sodium 4 mg PO MOWEFR@199908/30/22 11/23/23 History Bisoprolol [Zebeta] 5 mg PO DAILY 05/01/23 11/23/23 History Nitroglycerin Sl Tabs [Nitrostat] 0.4 mg SUBLINGUAL Q5M PRN tab 07/26/23 11/23/23 Rx LORazepam [Ativan] 0.5 mg PO BID PRN 10/04/23 11/23/23 History Sacubitril/Valsartan [Entresto 49 1 tab PO BID@0800,1600 10/04/23 11/23/23 History mg-51 mg Tablet] Tiotropium 2.5 Mcg/Puff [Spiriva 2 puff INHALATION RT-DAILY 10/04/23 11/23/23 History Respimat 2.5 Mcg] Ferrous Sulfate [Feosol] 325 mg PO BID 11/23/23 11/23/23 History Furosemide [Lasix] 40 mg PO DAILY 11/23/23 11/23/23 History Ipratropium-Albuterol Nebulize 3 ml INHALATION RT-QID PRN 11/23/23 11/23/23 History [Duoneb 0.5 mg-3 mg/3 ml Soln] predniSONE 2.5 mg PO DAILY 11/23/23 11/23/23 History Allergies Allergy/AdvReac Type Severity Reaction Status Date / Time empagliflozin Allergy Dyspnea Verified 11/23/23 09:10 [From Jardiance] iodine AdvReac Unknown Verified 11/23/23 09:10 morphine AdvReac Hallucinati Verified 11/23/23 09:10 ons Patches on chest Allergy Swelling, Uncoded 10/04/23 14:02 See Comment pain med (can't remember AdvReac Hallucinati Uncoded 10/04/23 14:02 name) ons Physical Exam Vitals: Vital Signs Temp Pulse Resp BP Pulse Ox 11/23/23 08:20 75 18 96/66 94 L 11/23/23 07:20 72 18 95/57 94 L 11/23/23 05:06 97.7 F 81 18 113/61 99 Intake and Output 11/22/23 11/23/23 11/23/23 22:59 06:59 14:59 Other: Voiding Method Toilet Weight 50.802 kg GENERAL: Thin frail elderly male and in no acute distress. HEAD: Atraumatic, normocephalic. EYES: Pupils equal round and reactive to light, extraocular movements intact, sclera anicteric, conjunctiva are normal. ENT:nares patent, oropharynx clear without exudates. Moist mucous membranes. NECK: Normal range of motion, supple without lymphadenopathy or JVD, no thyromegaly LUNGS: Breath sounds coarse with decreased breath sounds consistent with his underlying COPD HEART: Regular rate and rhythm with occasional ectopy, there is 1/6 systolic ejection murmur noted., rubs or gallops.S1S2 Normal ABDOMEN: Soft, nontender, normoactive bowel sounds. No guarding, no rebound. No masses appreciated. EXTREMITIES: Normal range of motion, no pitting or edema. No clubbing or cyanosis. NEUROLOGICAL: Cranial nerves II through XII grossly intact. Normal speech, normal gait. PSYCH: Normal mood, normal affect. SKIN: Warm, Dry, normal turgor, no rashes or lesions noted. Results CBC & Chem 7: 11/23/23 05:20 11/23/23 05:20 Labs: Abnormal Lab Results - Last 24 Hours (Table) 11/23/23 11/23/23 11/23/23 Range/Units 05:20 05:20 06:30 RBC 3.11 L (4.30-5.90) m/uL Hgb 9.0 L (13.0-17.5) gm/dL Hct 29.9 L (39.0-53.0) % MCHC 30.0 L (31.0-37.0) g/dL Lymphocytes # 0.6 L (1.0-4.8) k/uL Sodium 125 L (137-145) mmol/L Chloride 110 H (98-107) mmol/L Carbon Dioxide 19 L (22-30) mmol/L BUN 83 H (9-20) mg/dL Creatinine 2.47 H (0.66-1.25) mg/dL AST 16 L (17-59) U/L Total Protein 5.9 L (6.3-8.2) g/dL Urine Protein 1+ H (Negative) Urine Blood Moderate H (Negative) Ur Leukocyte Esterase Large H (Negative) Urine RBC 126 H (0-5) /hpf Urine WBC >182 H (0-5) /hpf Urine WBC Clumps Many H (None) /hpf Urine Bacteria Moderate H (None) /hpf Urine Mucus Rare H (None) /hpf CT scan - abdomen: report reviewed Thrombosis Risk Factor Assmnt - DVT/VTE Prophylaxis DVT/VTE Prophylaxis: Pharmacologic Prophylaxis ordered (He will continue on his Coumadin) Assessment and Plan (1) Diarrhea Current Visit: Yes Status: Acute Code(s): R19.7 - DIARRHEA, UNSPECIFIED SNOMED Code(s): 82386937 (2) Moderate dehydration Current Visit: Yes Status: Acute Code(s): E86.0 - DEHYDRATION SNOMED Code(s): 9908515211176 (3) Acute on chronic renal failure Current Visit: Yes Status: Acute Code(s): N17.9 - ACUTE KIDNEY FAILURE, UNSPECIFIED; N18.9 - CHRONIC KIDNEY DISEASE, UNSPECIFIED SNOMED Code(s): 024173605 (4) Cystitis Current Visit: Yes Status: Acute Code(s): N30.90 - CYSTITIS, UNSPECIFIED WITHOUT HEMATURIA SNOMED Code(s): 44887897 (5) Chronic respiratory failure Current Visit: No Status: Acute Code(s): J96.10 - CHRONIC RESPIRATORY FAILURE, UNSP W HYPOXIA OR HYPERCAPNIA SNOMED Code(s): 63738314 (6) H/O aortic valve replacement Current Visit: No Status: Acute Code(s): Z95.2 - PRESENCE OF PROSTHETIC HEART VALVE SNOMED Code(s): 7258280278945 (7) Paroxysmal atrial fibrillation Current Visit: No Status: Acute Code(s): I48.0 - PAROXYSMAL ATRIAL FIBRILL ATION SNOMED Code(s): 343956317 (8) Pulmonary hypertension Current Visit: No Status: Acute Code(s): I27.20 - PULMONARY HYPERTENSION, UNSPECIFIED SNOMED Code(s): 72831567 (9) Systolic congestive heart failure Current Visit: No Status: Acute Code(s): I50.20 - UNSPECIFIED SYSTOLIC (CONGESTIVE) HEART FAILURE SNOMED Code(s): 38277573 (10) Hyponatremia Current Visit: Yes Status: Acute Code(s): E87.1 - HYPO-OSMOLALITY AND HYPONATREMIA SNOMED Code(s): 27410589 Plan: Will reorder his home meds, consult nephrology for the hyponatremia, gentle hydration with normal saline 75 cc an hour, stool cultures for ova and parasites, reorder antibiotics, repeat labs in a.m. reevaluate the next 24 hours
[2023-11-23] MEDS: TAMSULOSIN 0.4 MG CAP.ER.24H PO SCH (10:34)
[2023-11-23] MEDS: FERROUS SULFATE 325 MG TAB PO SCH (10:34)
[2023-11-23] MEDS: predniSONE 5 MG TAB PO SCH (10:40)
[2023-11-23 11:02] LABS: INR 2.5 (<1.2); Prothrombin Time 24.5 sec (10.0-12.5)
--- NOTE | 2023-11-23 14:35 | P.NPCON ---
History of Present Illness - Reason for Consult Consult date: 11/23/23 - Chief Complaint Diarrhea - History of Present Illness Patient is 83-year-old male presenting with 3-day history of incessant diarrhea with multiple episodes of stools. He has a long history of atrial fibrillation, congestive heart failure, chronic renal failure, and a previous history of urinary retention with Felder catheter. Felder catheter was discontinued about 6 months ago and he had been doing well urinating without it. At this time he says he is urinating. He denies any chest pains pressures or shortness of breath that is different than any other time. He reports his st ools are normal in color. Patient is awake, comfortable, no acute distress Examination of the heart S1 and S2 Examination of the lungs bilateral breath sounds are heard Abdomen is soft nontender Examination of lower extremity shows no evidence of edema [employer]ASC[employer] O[employer]ATOR exam grossly intact Review of Systems Constitutional: Reports as per HPI Past Medical History Past Medical History: Atrial Fibrillation, Heart Failure, COPD, GI Bleed, Hyperlipidemia, Pneumonia, Renal Disease, Skin Disorder, Vascular Disorder Additional Past Medical History / Comment(s): GI bleed, gastritis, gastric ectasia, CKD stage III, past abdominal aortic aneurysm/had stent placed, varicosities, PVD, past shingellis and occasionally will have R flank nerve pain, BPH. Covid 09/2022 History of Any Multi-Drug Resistant Organisms: MRSA Date of last positivie culture/infection: 03/19/22 MDRO Source:: Urine Past Surgical History: Cardiac Valve Replacement, Cholecystectomy, Heart Catheterization Additional Past Surgical History / Comment(s): Stent placed for lower abd aortic aneurysym, mitral valve replacement/bicuspid repair, EGD with ablation, colonoscopy, excision L cheek lesion/mass and lesion from scalp/all benign, ZEPHER VALVE PLACED 2 YRS AGO AT [facility] Past Anesthesia/Blood Transfusion Reactions: No Reported Reaction Date of Last Stent Placement:: 2015 Past Psychological History: Anxiety Additional Psychological History / Comment(s): Lives at [facility]. He has home oxygen. He drives. Smoking Status: Former smoker Past Alcohol Use History: Occasional Additional Past Alcohol Use History / Comment(s): Pt started smoking in 4 and quit in 1989, Pt drinks 1 glass of wine a day. Past Drug Use History: None Reported - Past Family History Mother Family Medical History: Myocardial Infarction ([place]) Additional Family Medical History / Comment(s): at a young age. Father Family Medical History: Hypertension Medications and Allergies Home Medications Medication Instructions Recorded Confirmed Type Fluticasone Propion/Salmeterol 1 puff INHALATION RT-BID 05/05/22 11/23/23 History [Wixela 100-50 Inhub] Sertraline [Zoloft] 50 mg PO HS 05/05/22 11/23/23 History Warfarin [Coumadin] 1 mg PO SUTUTHSA@199907/12/22 11/23/23 History Tamsulosin [Flomax] 0.4 mg PO DAILY 08/30/22 11/23/23 History Warfarin Sodium 4 mg PO MOWEFR@199908/30/22 11/23/23 History Bisoprolol [Zebeta] 5 mg PO DAILY 05/01/23 11/23/23 History Nitroglycerin Sl Tabs [Nitrostat] 0.4 mg SUBLINGUAL Q5M PRN tab 07/26/23 11/23/23 Rx LORazepam [Ativan] 0.5 mg PO BID PRN 10/04/23 11/23/23 History Sacubitril/Valsartan [Entresto 49 1 tab PO BID@0800,1600 10/04/23 11/23/23 History mg-51 mg Tablet] Tiotropium 2.5 Mcg/Puff [Spiriva 2 puff INHALATION RT-DAILY 10/04/23 11/23/23 History Respimat 2.5 Mcg] Ferrous Sulfate [Feosol] 325 mg PO BID 11/23/23 11/23/23 History Furosemide [Lasix] 40 mg PO DAILY 11/23/23 11/23/23 History Ipratropium-Albuterol Nebulize 3 ml INHALATION RT-QID PRN 11/23/23 11/23/23 History [Duoneb 0.5 mg-3 mg/3 ml Soln] predniSONE 2.5 mg PO DAILY 11/23/23 11/23/23 History Allergies Allergy/AdvReac Type Severity Reaction Status Date / Time empagliflozin Allergy Dyspnea Verified 11/23/23 09:10 [From Jardiance] iodine AdvReac Unknown Verified 11/23/23 09:10 morphine AdvReac Hallucinati Verified 11/23/23 09:10 ons Patches on chest Allergy Swelling, Uncoded 10/04/23 14:02 See Comment pain med (can't remember AdvReac Hallucinati Uncoded 10/04/23 14:02 name) ons Physical Exam Vitals: Vital Signs Temp Pulse Pulse Resp BP BP Pulse Ox 11/23/23 11:11 96.1 F L 87 16 103/58 98 11/23/23 10:54 78 18 100/57 94 L 11/23/23 08:20 75 18 96/66 94 L 11/23/23 07:20 72 18 95/57 94 L 11/23/23 05:06 97.7 F 81 18 113/61 99 Intake and Output 11/22/23 11/23/23 11/23/23 22:59 06:59 14:59 Output Total 350 Balance -350 Output: Post Void Residual 350 Other: Voiding Method Toilet Toilet Weight 50.802 kg 50.802 kg Results - Lab Results Most recent lab results Calcium 8.6 mg/dL (8.4-10.2) 11/23/23 05:20 11/23/23 05:20 11/23/23 05:20 Assessment and Plan Assessment: 1. Acute kidney injury. History of obstructive uropathy. Baseline creatinine around 1.0 mg/dL. UA concerning for UTI. 2. Hyponatremia possibly hypovolemia. Presented at 125. 3. Chronic systolic CHF with ejection fraction of 25 to 30%. 4. Hx bladder surgery status post Felder catheter insertion and subsequent removal. 5. Metabolic Acidosis related to CANDACE. 6. UTI Plan: Continue with IVF PVR was borderline for retention, would do serial PVR and straight cath if PVR >350 again. Hold Entresto due to CANDACE ABX per primary Daily BMP and strict I/O's Repeat sodium level this evening.
[2023-11-23] MEDS ORDERED: SACUBITRIL/VALSARTAN 49 MG-51 MG TABLET PO SCH (16:00)
[2023-11-23] MEDS: SODIUM CHLORIDE 0.9% 1,000 ML IV SCH (16:13)
[2023-11-23] MEDS: SYMBICORT 80-4.5 MCG INHALER INHALATION SCH (18:33)
[2023-11-23 19:36] LABS: African American GFR (CKD) 22 (>60 ml/min/1.73 sqM); Anion Gap 7 mmol/L; Blood Urea Nitrogen 80 mg/dL (9-20); Calcium 8.5 mg/dL (8.4-10.2); Carbon Dioxide 19 mmol/L (22-30); Chloride 113 mmol/L (98-107); Glucose 105 mg/dL (74-99); Non-African American GFR(CKD) 19 (>60 ml/min/1.73 sqM); Sodium 139 mmol/L (137-145)
[2023-11-23] MEDS: CEFEPIME 2 GM in SODIUM CHLORIDE 0.9% 100 ML IVPB SCH (20:48)
[2023-11-23] MEDS: WARFARIN 1 MG TAB PO SCH (20:48)
[2023-11-23] MEDS: SERTRALINE 50 MG TAB PO SCH (20:49)
[2023-11-23] MEDS: LORazepam 0.5 MG TAB PO PRN (20:54)
[2023-11-23] MEDS: IPRATROPIUM 0.5 MG/2.5 ML NEBU INHALATION PRN (21:40)
[2023-11-24] MEDS: FAMOTIDINE 20 MG TAB PO SCH (08:34)
[2023-11-24] MEDS: predniSONE 2.5 MG TAB PO SCH (08:34)
[2023-11-24] MEDS: IPRATROPIUM 0.5 MG/2.5 ML NEBU INHALATION SCH (08:53)
--- NOTE | 2023-11-24 09:23 | P.PN ---
Subjective Progress Note Date: 11/24/23 Samir is a 83-year-old male well-known to the practice. He reports 3- day history of incessant diarrhea with multiple episodes of stools. He has a long history of atrial fibrillation, congestive heart failure, chronic renal failure, and a previous history of urinary retention with Felder catheter. Felder catheter was discontinued about 6 months ago and he had been doing well urinating without it. At this time he says he is urinating. He denies any chest pains pressures or shortness of breath that is different than any other time. He reports his stools are normal in color. Vitals are stable laboratory studies show a hyponatremia., He is chronically anemic hemoglobin is 9, BUN and creatinine are 83 and 2.47 with a GFR of 23. He is in good spirits. November 24, 2023: Patient is reevaluated today. He is feeling better overnight though he did have some confusion. He apparently called 911 while in his hospital bed. He says he realized his mistake right away and it was just after he was waking up that he felt very strange. He is feeling back to normal at this time. He denies any chest pains pressures. Shortness of breath is chronic and stable. Vital signs show temp 97.7 pulse oximetry 97% on 3 L O2, blood pressure is controlled. Labs this morning showed his sodium is now 139. Kidney function still little off with a BUN of 80 and a creatinine of 2.96. GFR is down to 19. Staff report postvoid residuals were 290 after urinating. He indicates he is urinating freely and does not wish to deal with a catheter at this time. He also reports no diarrhea overnight. Nephrology is following. Objective - Vital Signs Vital signs: Vital Signs Temp 97.7 F 11/24/23 07:00 Pulse 96 11/24/23 09:02 Resp 20 11/24/23 09:02 BP 100/57 11/24/23 07:00 Pulse Ox 97 11/24/23 08:53 FiO2 Intake & Output 11/23/23 11/24/23 11/24/23 18:59 06:59 18:59 Intake Total 118 118 Output Total 350 244 Balance -232 -244 118 Weight 50.802 kg Intake: Oral 118 118 Output: Post Void Residual 350 244 Other: Voiding Method Toilet Toilet Toilet # Voids 1 2 # Bowel Movements 4 4 - Exam GENERAL: Thin frail elderly male and in no acute distress. NECK: Normal range of motion, supple without lymphadenopathy or JVD, no thyromegaly LUNGS: Breath sounds coarse with decreased breath sounds consistent with his und erlying COPD HEART: Regular rate and rhythm with occasional ectopy, there is 1/6 systolic ejection murmur noted., rubs or gallops.S1S2 Normal ABDOMEN: Soft, nontender, normoactive bowel sounds. No guarding, no rebound. No masses appreciated. EXTREMITIES: Normal range of motion, no pitting or edema. No clubbing or cyanosis. NEUROLOGICAL: Cranial nerves II through XII grossly intact. Normal speech, normal gait. PSYCH: Normal mood, normal affect. SKIN: Warm, Dry, normal turgor, no rashes or lesions noted. - Labs CBC & Chem 7: 11/23/23 05:20 11/23/23 18:35 Labs: Abnormal Lab Results - Last 24 Hours (Table) 11/23/23 11/23/23 Range/Units 10:39 18:35 PT 24.5 H (10.0-12.5) sec INR 2.5 H (<1.2) Chloride 113 H (98-107) mmol/L Carbon Dioxide 19 L (22-30) mmol/L BUN 80 H (9-20) mg/dL Creatinine 2.96 H (0.66-1.25) mg/dL Glucose 105 H (74-99) mg/dL Assessment and Plan (1) Diarrhea Current Visit: Yes Status: Acute Code(s): R19.7 - DIARRHEA, UNSPECIFIED SNOMED Code(s): 00903847 (2) Moderate dehydration Current Visit: Yes Status: Acute Code(s): E86.0 - DEHYDRATION SNOMED Code(s): 6706273348899 (3) Acute on chronic renal failure Current Visit: Yes Status: Acute Code(s): N17.9 - ACUTE KIDNEY FAILURE, UNSPECIFIED; N18.9 - CHRONIC KIDNEY DISEASE, UNSPECIFIED SNOMED Code(s): 883807780 (4) Cystitis Current Visit: Yes Status: Acute Code(s): N30.90 - CYSTITIS, UNSPECIFIED WITHOUT HEMATURIA SNOMED Code(s): 40323800 (5) Chronic respiratory failure Current Visit: No Status: Acute Code(s): J96.10 - CHRONIC RESPIRATORY FAILURE, UNSP W HYPOXIA OR HYPERCAPNIA SNOMED Code(s): 89162718 (6) H/O aortic valve replacement Current Visit: No Status: Acute Code(s): Z95.2 - PRESENCE OF PROSTHETIC HEART VALVE SNOMED Code(s): 8246639275466 (7) Paroxysmal atrial fibrillation Current Visit: No Status: Acute Code(s): I48.0 - PAROXYSMAL ATRIAL FIBRILLATION SNOMED Code(s): 114804198 (8) Pulmonary hypertension Current Visit: No Status: Acute Code(s): I27.20 - PULMONARY HYPERTENSION, UNSPECIFIED SNOMED Code(s): 88848947 (9) Systolic congestive heart failure Current Visit: No Status: Acute Code(s): I50.20 - UNSPECIFIED SYSTOLIC (CONGESTIVE) HEART FAILURE SNOMED Code(s): 65842449 (10) Hyponatremia Current Visit: Yes Status: Acute Code(s): E87.1 - HYPO-OSMOLALITY AND HYPONATREMIA SNOMED Code(s): 63925043 Plan: Hyponatremia is now resolved, his kidney function is little worse though. Wait for further recommendations from nephrology. Continue his IV fluid at this time. Lasix and Entresto are on hold. Continue to monitor postvoid residuals. He will be reevaluated in the a.m., repeat labs in the a.m.
[2023-11-24 10:01] LABS: Basophils # (A) 0.02 X 10*3/uL (0.00-0.10); Basophils % (A) 0.4 %; Eosinophils # (A) 0.16 X 10*3/uL (0.04-0.35); Eosinophils % (A) 2.9 %; HCT 28.2 % (39.6-50.0); HGB 8.5 g/dL (13.0-17.0); Lymphocytes # (A) 0.58 X 10*3/uL (0.90-5.00); Lymphocytes % (A) 10.6 %; MCH 28.7 pg (27.0-32.0); MCHC 30.1 g/dL (32.0-37.0); MCV 95.3 FL (80.0-97.0); Mean Platelet Volume 9.7 FL (9.5-12.2); Monocytes # (A) 0.42 X 10*3/uL (0.20-1.00); Monocytes % (A) 7.7 %; NRBC Per 100 WBC 0 X 10*3/uL (0.00-0.01); Neutrophils # (A) 4.26 X 10*3/uL (1.80-7.70); Platelet Count 184 X 10*3/uL (140-440); RBC 2.96 X 10*6/uL (4.40-5.60); RDW 15.3 % (11.5-14.5); WBC 5.46 X 10*3/uL (4.50-10.00)
[2023-11-24 10:05] LABS: ALT 7 U/L (10-49); AST 11 U/L (14-35); Albumin 3.7 g/dL (3.8-4.9); Albumin/Globulin Ratio 1.95 Ratio (1.60-3.17); Alkaline Phosphatase 47 U/L (41-126); BUN/Creat Ratio 25.45 Ratio (12.00-20.00); Blood Urea Nitrogen 78.9 mg/dL (9.0-27.0); Calcium 8.2 mg/dL (8.7-10.3); Carbon Dioxide 18.5 mmol/L (21.6-31.8); Chloride 111 mmol/L (96-109); Globulin 1.9 g/dL (1.6-3.3); Glucose 99 mg/dL (70-110); Magnesium 2.5 mg/dL (1.5-2.4); Potassium 4.1 mmol/L (3.5-5.5); Sodium 141 mmol/L (135-145); Total Bilirubin <0.2 mg/dL (0.3-1.2); Total Protein 5.6 g/dL (6.2-8.2)
[2023-11-24 10:36] LABS: INR 2.18 sec (0.93-1.11); Prothrombin Time 22.4 sec (9.9-11.9)
--- NOTE | 2023-11-24 12:32 | P.PN ---
Subjective Progress Note Date: 11/24/23 Principal diagnosis: Patient seen in follow-up for CANDACE. Vital signs are stable. General: No acute distress. HEENT: Head exam is unremarkable. LUNGS: No audible rhonchi or wheezes. HEART: Rate and Rhythm are regular. ABDOMEN: Nontender. EXTREMITITES: No edema. Patient seen in follow-up for CANDACE. States he is feeling well and no new complaints. Believes he is urinating well on his own. Vital signs are reviewed. General: No acute distress. AAOx 3. Lungs: Bilateral breath sounds present; no rhonchi, wheezes, or rales. Heart: Rate and rhythm are regular. S1-S2 present. Abdomen: Soft, nontender, nondistended. Bowel sounds present. Extremities: No edema Objective - Vital Signs Vital signs: Vital Signs Temp 97.7 F 11/24/23 07:00 Pulse 96 11/24/23 09:02 Resp 20 11/24/23 09:02 BP 100/57 11/24/23 07:00 Pulse Ox 97 11/24/23 08:53 FiO2 Intake & Output 11/23/23 11/24/23 11/24/23 18:59 06:59 18:59 Intake Total 118 118 Output Total 350 244 Balance -232 -244 118 Weight 50.802 kg Intake: Oral 118 118 Output: Post Void Residual 350 244 Other: Voiding Method Toilet Toilet Toilet # Voids 1 2 # Bowel Movements 4 4 - Labs CBC & Chem 7: 11/24/23 03:16 11/24/23 03:16 Labs: Abnormal Lab Results - Last 24 Hours (Table) 11/23/23 11/23/23 11/24/23 Range/Units 10:39 18:35 03:16 RBC 2.96 L (4.40-5.60) X 10*6/uL Hgb 8.5 L (13.0-17.0) g/dL Hct 28.2 L (39.6-50.0) % MCHC 30.1 L (32.0-37.0) g/dL RDW 15.3 H (11.5-14.5) % Lymphocytes # 0.58 L (0.90-5.00) X 10*3/uL PT 24.5 H (10.0-12.5) sec INR 2.5 H (<1.2) Chloride 113 H (98-107) mmol/L Carbon Dioxide 19 L (22-30) mmol/L BUN 80 H (9-20) mg/dL Creatinine 2.96 H (0.66-1.25) mg/dL Est GFR (CKD-EPI) (>=60) BUN/Creatinine Ratio (12.00-20.00) Ratio Glucose 105 H (74-99) mg/dL Calcium (8.7-10.3) mg/dL Magnesium (1.5-2.4) mg/dL Total Bilirubin (0.3-1.2) mg/dL AST (14-35) U/L ALT (10-49) U/L Total Protein (6.2-8.2) g/dL Albumin (3.8-4.9) g/dL 11/24/23 11/24/23 Range/Units 03:16 03:16 RBC (4.40-5.60) X 10*6/uL Hgb (13.0-17.0) g/dL Hct (39.6-50.0) % MCHC (32.0-37.0) g/dL RDW (11.5-14.5) % Lymphocytes # (0.90-5.00) X 10*3/uL PT 22.4 H (10.0-12.5) sec INR 2.18 H (<1.2) Chloride 111 H (98-107) mmol/L Carbon Dioxide 18.5 L (22-30) mmol/L BUN 78.9 H (9-20) mg/dL Creatinine 3.1 H (0.66-1.25) mg/dL Est GFR (CKD-EPI) 19 L (>=60) BUN/Creatinine Ratio 25.45 H (12.00-20.00) Ratio Glucose (74-99) mg/dL Calcium 8.2 L (8.7-10.3) mg/dL Magnesium 2.5 H (1.5-2.4) mg/dL Total Bilirubin <0.2 L (0.3-1.2) mg/dL AST 11 L (14-35) U/L ALT 7 L (10-49) U/L Total Protein 5.6 L (6.2-8.2) g/dL Albumin 3.7 L (3.8-4.9) g/dL Microbiology - Last 24 Hours (Table) 11/23/23 06:30 Urine Culture - Preliminary Urine,Clean Catch Gram Neg Bacilli Assessment and Plan Assessment: 1. Acute kidney injury due to obstructive uropathy. Baseline creatinine around 1.0 mg/dL. UA concerning for UTI. Presented creatinine 2.9 and now 3.1 today. PVR elevated yesterday >500cc. 2. Hyponatremia possibly hypovolemia. Presented at 125, resolvd quickly, suspect possible lab error in initial sodium. 3. Chronic systolic CHF with ejection fraction of 25 to 30%. 4. Hx bladder surgery status post Felder catheter insertion and subsequent removal. 5. Metabolic Acidosis related to CANDACE. 6. UTI Plan: Continue with IVF given diarrhea. PVR showed retention, will check again today and straight cath. If persistent will need Felder again and recommend urology evaluation. Hold Entresto due to CANDACE ABX per primary Daily BMP and strict I/O's
--- NOTE | 2023-11-24 14:17 | CT ---
EXAMINATION TYPE: CT brain wo con CT DLP: 1116 mGycm, Automated exposure control for dose reduction was used. DATE OF EXAM: 11/24/2023 2:11 PM COMPARISON: CT head 03/19/2022. CLINICAL INDICATION:Male, 83 years old with history of confusion, ams, uti TECHNIQUE: Brain: Axial CT images of the brain were obtained with coronal and sagittal reformats created and rev iewed. Contrast used: None. Oral contrast used: None. FINDINGS: Brain: Extra-axial spaces: No abnormal extra-axial fluid collections. Ventricular system: Within normal limits Cerebral parenchyma: No acute intraparenchymal hemorrhage or mass effect. The judd-white junction is well differentiated. Scattered hypoattenuating areas are seen within the white matter. Generalized parenchymal volume loss. Cerebellum: Unremarkable. Mass effect: No evidence of midline shift. Intracranial vasculature: Atherosclerotic calcifications of the intracranial vessels. Soft tissues: Normal. Calvarium/osseous structures: No depressed skull fracture. Paranasal sinuses and mastoid air cells: Mild scattered paranasal sinus disease. Visualized orbits: Orbital contents are intact. IMPRESSION: 1. No acute intracranial process. 2. Nonspecific white matter changes, likely secondary to chronic small vessel ischemic disease. [facility], , 11/24/2023 2:14 PM
[2023-11-24 15:08] LABS: African American GFR (CKD) 19 (>60 ml/min/1.73 sqM); Anion Gap 15 mmol/L; Blood Urea Nitrogen 75 mg/dL (9-20); Calcium 8.7 mg/dL (8.4-10.2); Carbon Dioxide 16 mmol/L (22-30); Chloride 108 mmol/L (98-107); Glucose 99 mg/dL (74-99); Magnesium 2.5 mg/dL (1.6-2.3); Non-African American GFR(CKD) 16 (>60 ml/min/1.73 sqM); Potassium 4.1 mmol/L (3.5-5.1); Sodium 139 mmol/L (137-145)
[2023-11-24] MEDS: CEFEPIME 1 GM in SODIUM CHLORIDE 0.9% 50 ML IVPB SCH (19:56)
[2023-11-24] MEDS: ACETAMINOPHEN TAB 325 MG TAB PO PRN (20:03)
--- NOTE | 2023-11-25 07:40 | XR ---
EXAMINATION TYPE: XR chest 1V DATE OF EXAM: 11/25/2023 COMPARISON: 10/04/2023 HISTORY: Shortness of breath TECHNIQUE: Single frontal view of the chest is obtained. FINDINGS: Postsurgical changes are seen with prosthetic heart valve postmedian sternotomy changes. D iffuse emphysematous changes with right basilar consolidation. No sizable pneumothorax or pleural eff usion. Persistent prominence of the left hilum. IMPRESSION: 1. COPD with right basilar infiltrate. 2. Prominent left hilum could partially be positional recommend short-term repeat x-ray for further e valuation to exclude underlying mass or adenopathy [facility], , 11/25/2023 7:38 AM
[2023-11-25 08:56] LABS: Basophils # (A) 0.02 X 10*3/uL (0.00-0.10); Basophils % (A) 0.4 %; Eosinophils # (A) 0.13 X 10*3/uL (0.04-0.35); Eosinophils % (A) 2.4 %; HCT 26.4 % (39.6-50.0); Lymphocytes # (A) 0.56 X 10*3/uL (0.90-5.00); Lymphocytes % (A) 10.3 %; MCH 29.6 pg (27.0-32.0); MCHC 30.3 g/dL (32.0-37.0); MCV 97.8 FL (80.0-97.0); Mean Platelet Volume 9.7 FL (9.5-12.2); Monocytes # (A) 0.55 X 10*3/uL (0.20-1.00); Monocytes % (A) 10.1 %; NRBC Per 100 WBC 0 X 10*3/uL (0.00-0.01); Neutrophils # (A) 4.17 X 10*3/uL (1.80-7.70); Neutrophils % (A) 76.6 %; Platelet Count 145 X 10*3/uL (140-440); RDW 15.7 % (11.5-14.5); WBC 5.44 X 10*3/uL (4.50-10.00)
[2023-11-25 09:04] LABS: ALT 9 U/L (10-49); AST 11 U/L (14-35); Albumin 3.5 g/dL (3.8-4.9); Albumin/Globulin Ratio 1.84 Ratio (1.60-3.17); Alkaline Phosphatase 44 U/L (41-126); BUN/Creat Ratio 21.81 Ratio (12.00-20.00); Blood Urea Nitrogen 78.5 mg/dL (9.0-27.0); Calcium 8.2 mg/dL (8.7-10.3); Carbon Dioxide 17.3 mmol/L (21.6-31.8); Chloride 112 mmol/L (96-109); Globulin 1.9 g/dL (1.6-3.3); Glucose 113 mg/dL (70-110); Potassium 4.4 mmol/L (3.5-5.5); Sodium 140 mmol/L (135-145); Total Bilirubin <0.2 mg/dL (0.3-1.2); Total Protein 5.4 g/dL (6.2-8.2)
--- NOTE | 2023-11-25 09:08 | P.PN ---
Subjective Patient is seen in follow-up for acute kidney injury. Creatinine 3.36 yesterday. Has Felder catheter for urinary retention. Nonoliguric. Denies c hest pain or shortness of breath. Vital signs are stable. General: No acute distress. HEENT: Head exam is unremarkable. On nasal cannula. LUNGS: No audible rhonchi or wheezes. HEART: Rate and Rhythm are regular. ABDOMEN: Nontender. EXTREMITITES: No edema. Objective - Vital Signs Vital signs: Vital Signs Temp 96.6 F L 11/25/23 07:00 Pulse 85 11/25/23 09:01 Resp 16 11/25/23 07:00 BP 125/66 11/25/23 07:00 Pulse Ox 95 11/25/23 08:50 FiO2 Intake & Output 11/24/23 11/25/23 11/25/23 18:59 06:59 18:59 Intake Total 236 Output Total 964 400 Balance -728 -400 Intake: Oral 236 Output: Urine 300 400 Straight 250 Post Void Residual 664 Other: Voiding Method Diaper Diaper Self-Catheterization Indwelling Catheter # Voids 1 1 - Labs CBC & Chem 7: 11/25/23 02:49 11/24/23 14:21 Labs: Abnormal Lab Results - Last 24 Hours (Table) 11/24/23 11/24/23 11/24/23 Range/Units 03:16 03:16 03:16 RBC 2.96 L (4.40-5.60) X 10*6/uL Hgb 8.5 L (13.0-17.0) g/dL Hct 28.2 L (39.6-50.0) % MCV (80.0-97.0) FL MCHC 30.1 L (32.0-37.0) g/dL RDW 15.3 H (11.5-14.5) % Lymphocytes # 0.58 L (0.90-5.00) X 10*3/uL PT 22.4 H (9.9-11.9) sec INR 2.18 H (0.93-1.11) sec Chloride 111 H (96-109) mmol/L Carbon Dioxide 18.5 L (21.6-31.8) mmol/L BUN 78.9 H (9.0-27.0) mg/dL Creatinine 3.1 H (0.6-1.5) mg/dL Est GFR (CKD-EPI) 19 L (>=60) BUN/Creatinine Ratio 25.45 H (12.00-20.00) Ratio Calcium 8.2 L (8.7-10.3) mg/dL Magnesium 2.5 H (1.5-2.4) mg/dL Total Bilirubin <0.2 L (0.3-1.2) mg/dL AST 11 L (14-35) U/L ALT 7 L (10-49) U/L Total Protein 5.6 L (6.2-8.2) g/dL Albumin 3.7 L (3.8-4.9) g/dL 11/24/23 11/25/23 11/25/23 Range/Units 14:21 02:49 02:49 RBC 2.70 L (4.40-5.60) X 10*6/uL Hgb 8.0 L (13.0-17.0) g/dL Hct 26.4 L (39.6-50.0) % MCV 97.8 H (80.0-97.0) FL MCHC 30.3 L (32.0-37.0) g/dL RDW 15.7 H (11.5-14.5) % Lymphocytes # 0.56 L (0.90-5.00) X 10*3/uL PT 20.0 H (9.9-11.9) sec INR 2.0 H (0.93-1.11) sec Chloride 108 H (96-109) mmol/L Carbon Dioxide 16 L (21.6-31.8) mmol/L BUN 75 H (9.0-27.0) mg/dL Creatinine 3.36 H (0.6-1.5) mg/dL Est GFR (CKD-EPI) (>=60) BUN/Creatinine Ratio (12.00-20.00) Ratio Calcium (8.7-10.3) mg/dL Magnesium 2.5 H (1.5-2.4) mg/dL Total Bilirubin (0.3-1.2) mg/dL AST (14-35) U/L ALT (10-49) U/L Total Protein (6.2-8.2) g/dL Albumin (3.8-4.9) g/dL Microbiology - Last 24 Hours (Table) 11/23/23 06:30 Stool Culture - Preliminary Stool 11/23/23 06:30 Urine Culture - Preliminary Urine,Clean Catch Gram Neg Bacilli Assessment and Plan Plan: Assessment: 1. Acute kidney injury secondary to obstructive uropathy and infection. Creatinine near 1 in May 2023. 3.36 yesterday. No hydronephrosis noted on CT. 2. Gram-negative UTI on antibiotics. 3. Chronic systolic CHF ejection fraction of 30 to 35%, mild to moderate aortic stenosis/tricuspid regurgitation and moderate to severe aortic regurgitation noted on echocardiogram done in July 2023. 4. Metabolic acidosis secondary to acute kidney injury and IV fluids. 5. Urinary retention. Has Felder catheter. On Flomax. Plan: Maintain IV fluids for now. Urology consulted for urinary retention. Continue to monitor renal function and urine output. Morning labs pending.
[2023-11-25 10:19] LABS: African American GFR (CKD) 16 (>60 ml/min/1.73 sqM); Anion Gap 9 mmol/L; Blood Urea Nitrogen 74 mg/dL (9-20); Calcium 8.7 mg/dL (8.4-10.2); Carbon Dioxide 15 mmol/L (22-30); Chloride 119 mmol/L (98-107); Glucose 124 mg/dL (74-99); Magnesium 2.4 mg/dL (1.6-2.3); Non-African American GFR(CKD) 14 (>60 ml/min/1.73 sqM); Potassium 4.6 mmol/L (3.5-5.1); Sodium 143 mmol/L (137-145)
[2023-11-25] MEDS: polyethylene glycoL 3350 17 GM POWD.PACK PO PRN (10:49)
[2023-11-25] MEDS: DEXTROSE 5% IN WATER 1,000 ML with SODIUM BICARB (1 MEQ/ML) 150 ML IV SCH (13:53)
--- NOTE | 2023-11-25 15:51 | P.PN ---
Subjective Progress Note Date: 11/25/23 11/23/23 Samir is a 83-year-old male well-known to the practice. He reports 3-day history of incessant diarrhea with multiple episodes of stools. He has a long history of atrial fibrillation, congestive heart failure, chronic renal failure, and a previous history of urinary retention with Felder catheter. Felder catheter was discontinued about 6 months ago and he had been doing well urinating without it. At this time he says he is urinating. He denies any chest pains pressures or shortness of breath that is different than any other time. He reports his stools are normal in color. Vitals are stable laboratory studies show a hyponatremia., He is chronically anemic hemoglobin is 9, BUN and creatinine are 83 and 2.47 with a GFR of 23. He is in good spirits. November 24, 2023: Patient is reevaluated today. He is feeling better overnight though he did have some confusion. He apparently called 911 while in his hospital bed. He says he realized his mistake right away and it was just after he was waking up that he felt very strange. He is feeling back to normal at this time. He denies any chest pains pressures. Shortness of breath is chronic and stable. Vital signs show temp 97.7 pulse oximetry 97% on 3 L O2, blood pressure is controlled. Labs this morning showed his sodium is now 139. Kidney function still little off with a BUN of 80 and a creatinine of 2.96. GFR is down to 19. Staff report postvoid residuals were 290 after urinating. He indicates he is urinating freely and does not wish to deal with a catheter at this time. He also reports no diarrhea overnight. Nephrology is following. 11/25/2023 worsening renal function, bicarb 15, BUN 74, creatinine 3.72, GFR 14, continues on bicarb drip. Nephrology following. blood sugars controlled. Viral studies negative, C. difficile negative. Sensorium significantly improved, alert and oriented x 3; staff reports patient is impulsive. Complains of constipation, no bowel movement in 2 days. Denies chest pain, palpitations or shortness of breath. Maintaining O2 sats in the 90s on 3 L nasal cannula. Echo from 07/25 reporting EF of 30 to 35%. Chest x-ray reported COPD with right basilar infiltrate/consolidation, persistent prominence of the left hilum. Brain CT reported no acute intracranial process. Objective - Vital Signs Vital signs: Vital Signs Temp 96.6 F L 11/25/23 07:00 Pulse 80 11/25/23 12:21 Resp 16 11/25/23 07:00 BP 125/66 11/25/23 07:00 Pulse Ox 95 11/25/23 08:50 FiO2 Intake & Output 11/24/23 11/25/23 11/25/23 18:59 06:59 18:59 Intake Total 236 Output Total 964 400 Balance -728 -400 Intake: Oral 236 Output: Urine 300 400 Straight 250 Post Void Residual 664 Other: Voiding Method Diaper Diaper Indwelling Catheter Self-Catheterization Indwelling Catheter # Voids 1 1 - Exam General: Patient awake, alert and oriented times 3,NAD HEENT: Normocephalic PERRLA EOMI. Neck: Supple, no JVD Cardiac: Heart regular in rate and rhythm . No S3. No S4. No clicks, rubs. Positive systolic murmur consistent with his aortic valve replacement Lungs: Diminished breath sounds bilaterally with bibasilar expiratory expiratory wheezes and coarse rhonchi (close to baseline) Abdomen: Soft, nontender, no hepatosplenomegaly, no guarding, no rigidity, +BS. Extremes: [No edema no cyanosis no claudication normal pulses : indwelling Felder catheter Skin: [No rash, warm and dry Neurologic: Cranial nerves II through XII grossly intact. No focal deficits. - Labs CBC & Chem 7: 11/25/23 02:49 11/25/23 09:39 Labs: Abnormal Lab Results - Last 24 Hours (Table) 11/25/23 11/25/23 11/25/23 Range/Units 02:49 02:49 02:49 RBC 2.70 L (4.40-5.60) X 10*6/uL Hgb 8.0 L (13.0-17.0) g/dL Hct 26.4 L (39.6-50.0) % MCV 97.8 H (80.0-97.0) FL MCHC 30.3 L (32.0-37.0) g/dL RDW 15.7 H (11.5-14.5) % Lymphocytes # 0.56 L (0.90-5.00) X 10*3/uL PT 20.0 H (10.0-12.5) sec INR 2.0 H (<1.2) Chloride 112 H (96-109) mmol/L Carbon Dioxide 17.3 L (21.6-31.8) mmol/L BUN 78.5 H (9.0-27.0) mg/dL Creatinine 3.6 H (0.6-1.5) mg/dL Est GFR (CKD-EPI) 16 L (>=60) BUN/Creatinine Ratio 21.81 H (12.00-20.00) Ratio Glucose 113 H (70-110) mg/dL Calcium 8.2 L (8.7-10.3) mg/dL Magnesium (1.6-2.3) mg/dL Total Bilirubin <0.2 L (0.3-1.2) mg/dL AST 11 L (14-35) U/L ALT 9 L (10-49) U/L Total Protein 5.4 L (6.2-8.2) g/dL Albumin 3.5 L (3.8-4.9) g/dL 11/25/23 Range/Units 09:39 RBC (4.40-5.60) X 10*6/uL Hgb (13.0-17.0) g/dL Hct (39.6-50.0) % MCV (80.0-97.0) FL MCHC (32.0-37.0) g/dL RDW (11.5-14.5) % Lymphocytes # (0.90-5.00) X 10*3/uL PT (10.0-12.5) sec INR (<1.2) Chloride 119 H (96-109) mmol/L Carbon Dioxide 15 L (21.6-31.8) mmol/L BUN 74 H (9.0-27.0) mg/dL Creatinine 3.72 H (0.6-1.5) mg/dL Est GFR (CKD-EPI) (>=60) BUN/Creatinine Ratio (12.00-20.00) Ratio Glucose 124 H (70-110) mg/dL Calcium (8.7-10.3) mg/dL Magnesium 2.4 H (1.6-2.3) mg/dL Total Bilirubin (0.3-1.2) mg/dL AST (14-35) U/L ALT (10-49) U/L Total Protein (6.2-8.2) g/dL Albumin (3.8-4.9) g/dL Microbiology - Last 24 Hours (Table) 11/23/23 06:30 Urine Culture - Preliminary Urine,Clean Catch Gram Neg Bacilli Proteus mirabilis 11/23/23 06:30 Stool Culture - Preliminary Stool Assessment and Plan Assessment: Acute UTI, gram-negative bacilli, Proteus Mirabilis, cystitis Diarrhea, resolved. Constipation Dehydration Acute on chronic renal failure stage IV, secondary to acute UTI, urinary retention, possibly cardiorenal syndrome. Urinary retention requiring Felder catheter placement Right basilar infiltrate,consolidation, persistent prominence of the left hilum, reported per chest x-ray. COPD Moderate to severe pulmonary hypertension Chronic hypoxic respiratory failure on home oxygen Acute on chronic heart failure with reduced EF Anemia of chronic disease Persistent atrial fibrillation History of tissue mitral valve replacement, February 2015 at [facility] History of tricuspid valve repair, February 2015 at [facility] Nonischemic cardiomyopathy Hypertension Hyperlipidemia Peripheral vascular disease History of abdominal aortic aneurysm History of rheumatic fever Plan continue on current medication regimen ,monitoring and symptomatic treatment. Maintain IV fluid hydration, IV antibiotics of cefepime. Close monitoring of renal function with repeat labs ordered for a.m. Urology consult in place regarding urinary retention. Anticoagulation with warfarin as per pharmacy dosing. Infectious disease consulted. MiraLAX ordered for constipation. PT/OT evaluated patient, recommending subacute rehab at discharge. The impression and plan of care has been dictated as directed. : I performed a history and examination of this patient, discussed the same with the dictator. I agree with the dictator's note ,documented as a scribe. Any additional findings or plans will be noted.
[2023-11-25] MEDS: WARFARIN 2 MG TAB PO SCH (20:03)
--- NOTE | 2023-11-25 22:37 | P.CONS ---
History of Present Illness - Reason for Consult Consult date: 11/25/23 Acute UTI, negative bacilli Requesting physician: Ashanti Harris - Chief Complaint Diarrhea suprapubic discomfort x days - History of Present Illness Patient is a 83-year-old male with a past medical history significant for hyperlipidemia COPD heart failure with atrial fibrillation BPH presenting to the hospital 2 days ago for evaluation of diarrhea also complaining of dizziness lightheadedness patient on presentation to the hospital was afebrile and no feve r have been recorded subsequently patient did have normal white count is BUN/creatinine has been elevated did have a positive UA with large leukocyte esterase moderate WBC stool for C. difficile was negative urine cultures came back positive with drug-resistant Proteus Mirabella's and rhythm gram-negative with ID sensitivities pending patient currently being treated with cefepime for UTI infectious he was consulted because of the resistant pattern of this bacteria and management of antibiotic therapy patient did have a chronic indwelling Felder catheter he is unable to clear when the last time the quad catheter was changed he did complain of some suprapubic discomfort and nausea but no vomiting Review of Systems Positive point and negatives has been mentioned in the HPI, complete review of systems was performed and all other systems are negative Past Medical History Past Medical History: Atrial Fibrillation, Heart Failure, COPD, GI Bleed, Hyperlipidemia, Pneumonia, Renal Disease, Skin Disorder, Vascular Disorder Additional Past Medical History / Comment(s): GI bleed, gastritis, gastric ecta jeancarlos, CKD stage III, past abdominal aortic aneurysm/had stent placed, varicosities, PVD, past shingellis and occasionally will have R flank nerve pain, BPH. Covid 09/2022 History of Any Multi-Drug Resistant Organisms: MRSA Year Discovered:: 03/19/22 MDRO Source:: Urine Past Surgical History: Cardiac Valve Replacement, Cholecystectomy, Heart Catheterization Additional Past Surgical History / Comment(s): Stent placed for lower abd aortic aneurysym, mitral valve replacement/bicuspid repair, EGD with ablation, colonoscopy, excision L cheek lesion/mass and lesion from scalp/all benign, ZEPHER VALVE PLACED 2 YRS AGO AT [facility] Past Anesthesia/Blood Transfusion Reactions: No Reported Reaction Date of Last Stent Placement:: 2015 Past Psychological History: Anxiety Smoking Status: Former smoker Past Alcohol Use History: Occasional Past Drug Use History: None Reported - Past Family History Mother Family Medical History: Myocardial Infarction (SD) Additional Family Medical History / Comment(s): at a young age. Father Family Medical History: Hypertension Medications and Allergies Home Medications Medication Instructions Recorded Confirmed Type Fluticasone Propion/Salmeterol 1 puff INHALATION RT-BID 05/05/22 11/23/23 History [Wixela 100-50 Inhub] Sertraline [Zoloft] 50 mg PO HS 05/05/22 11/23/23 History Warfarin [Coumadin] 1 mg PO SUTUTHSA@199907/12/22 11/23/23 History Tamsulosin [Flomax] 0.4 mg PO DAILY 08/30/22 11/23/23 History Warfarin Sodium 4 mg PO MOWEFR@199908/30/22 11/23/23 History Bisoprolol [Zebeta] 5 mg PO DAILY 05/01/23 11/23/23 History Nitroglycerin Sl Tabs [Nitrostat] 0.4 mg SUBLINGUAL Q5M PRN tab 07/26/23 11/23/23 Rx LORazepam [Ativan] 0.5 mg PO BID PRN 10/04/23 11/23/23 History Sacubitril/Valsartan [Entresto 49 1 tab PO BID@0800,1600 10/04/23 11/23/23 History mg-51 mg Tablet] Tiotropium 2.5 Mcg/Puff [Spiriva 2 puff INHALATION RT-DAILY 10/04/23 11/23/23 History Respimat 2.5 Mcg] Ferrous Sulfate [Feosol] 325 mg PO BID 11/23/23 11/23/23 History Furosemide [Lasix] 40 mg PO DAILY 11/23/23 11/23/23 History Ipratropium-Albuterol Nebulize 3 ml INHALATION RT-QID PRN 11/23/23 11/23/23 History [Duoneb 0.5 mg-3 mg/3 ml Soln] predniSONE 2.5 mg PO DAILY 11/23/23 11/23/23 History Allergies Allergy/AdvReac Type Severity Reaction Status Date / Time empagliflozin Allergy Dyspnea Verified 11/23/23 09:10 [From Jardiance] iodine AdvReac Unknown Verified 11/23/23 09:10 morphine AdvReac Hallucinati Verified 11/23/23 09:10 ons Patches on chest Allergy Swelling, Uncoded 10/04/23 14:02 See Comment pain med (can't remember AdvReac Hallucinati Uncoded 10/04/23 14:02 name) ons Physical Exam Vitals: Vital Signs Temp Pulse Pulse Resp BP BP Pulse Ox 11/25/23 16:27 84 11/25/23 16:19 86 11/25/23 15:00 97.6 F 98 18 111/66 98 11/25/23 12:21 80 11/25/23 12:13 87 11/25/23 09:01 85 11/25/23 08:50 95 11/25/23 08:47 82 11/25/23 07:00 96.6 F L 92 16 125/66 99 11/25/23 02:32 91 22 11/25/23 02:00 97.4 F L 96 14 111/66 11/24/23 20:40 88 22 11/24/23 20:34 84 22 11/24/23 20:00 97.7 F 91 15 99/51 11/24/23 19:56 91 22 Intake and Output 11/25/23 11/25/23 11/25/23 06:59 14:59 22:59 Intake Total 118 Output Total 100 400 Balance -100 -282 Intake: Oral 118 Output: Urine 100 400 Other: Voiding Method Diaper Indwelling Catheter Indwelling Catheter GENERAL DESCRIPTION: Elderly male lying in bed, no distress. No tachypnea or accessory muscle of respiration use. HEENT: Shows Pallor , no scleral icterus. Oral mucous membrane is dry. No pharyngeal erythema or thrush NECK: Trachea central, no thyromegaly. LUNGS: Unlabored breathing. Clear to auscultation anteriorly. No wheeze or crackle. HEART: S1, S2, regular rate and rhythm. No loud murmur ABDOMEN: Soft, no tenderness , guarding or rigidity, no organomegaly EXTREMITIES: No edema of feet. SKIN: No rash, no masses palpable. NEUROLOGICAL: The patient is awake, alert, oriented x3, mood and affect normal. Results CBC & Chem 7: 11/26/23 02:57 11/26/23 02:57 Labs: Abnormal Lab Results - Last 24 Hours (Table) 11/25/23 11/25/23 11/25/23 Range/Units 02:49 02:49 02:49 RBC 2.70 L (4.40-5.60) X 10*6/uL Hgb 8.0 L (13.0-17.0) g/dL Hct 26.4 L (39.6-50.0) % MCV 97.8 H (80.0-97.0) FL MCHC 30.3 L (32.0-37.0) g/dL RDW 15.7 H (11.5-14.5) % Lymphocytes # 0.56 L (0.90-5.00) X 10*3/uL PT 20.0 H (10.0-12.5) sec INR 2.0 H (<1.2) Chloride 112 H (96-109) mmol/L Carbon Dioxide 17.3 L (21.6-31.8) mmol/L BUN 78.5 H (9.0-27.0) mg/dL Creatinine 3.6 H (0.6-1.5) mg/dL Est GFR (CKD-EPI) 16 L (>=60) BUN/Creatinine Ratio 21.81 H (12.00-20.00) Ratio Glucose 113 H (70-110) mg/dL Calcium 8.2 L (8.7-10.3) mg/dL Magnesium (1.6-2.3) mg/dL Total Bilirubin <0.2 L (0.3-1.2) mg/dL AST 11 L (14-35) U/L ALT 9 L (10-49) U/L Total Protein 5.4 L (6.2-8.2) g/dL Albumin 3.5 L (3.8-4.9) g/dL 11/24/ Range/Units 09:39 RBC (4.40-5.60) X 10*6/uL Hgb (13.0-17.0) g/dL Hct (39.6-50.0) % MCV (80.0-97.0) FL MCHC (32.0-37.0) g/dL RDW (11.5-14.5) % Lymphocytes # (0.90-5.00) X 10*3/uL PT (10.0-12.5) sec INR (<1.2) Chloride 119 H (96-109) mmol/L Carbon Dioxide 15 L (21.6-31.8) mmol/L BUN 74 H (9.0-27.0) mg/dL Creatinine 3.72 H (0.6-1.5) mg/dL Est GFR (CKD-EPI) (>=60) BUN/Creatinine Ratio (12.00-20.00) Ratio Glucose 124 H (70-110) mg/dL Calcium (8.7-10.3) mg/dL Magnesium 2.4 H (1.6-2.3) mg/dL Total Bilirubin (0.3-1.2) mg/dL AST (14-35) U/L ALT (10-49) U/L Total Protein (6.2-8.2) g/dL Albumin (3.8-4.9) g/dL Microbiology - Last 24 Hours (Table) 11/23/23 06:30 Urine Culture - Preliminary Urine,Clean Catch Gram Neg Bacilli Proteus mirabilis 11/23/23 06:30 Stool Culture - Preliminary Stool Assessment and Plan (1) Cystitis Current Visit: Yes Status: Acute Code(s): N30.90 - CYSTITIS, UNSPECIFIED WITHOUT HEMATURIA SNOMED Code(s): 25279512 (2) UTI (urinary tract infection) Current Visit: Yes Status: Acute Code(s): N39.0 - URINARY TRACT INFECTION, SITE NOT SPECIFIED SNOMED Code(s): 37305926 Plan: 1patient presented to hospital with diarrhea he also have some suprapubic discomfort did have a significantly positive UA concerning for symptomatic urinary tract infection likely from gram-negative pathogen with urine currently showing drug-resistant Proteus and another gram-negative with ID sensitivities pending 2-patient with insufficiency high risk of nephrotoxicity 3-patient to continue with the cefepime while waiting for the sensitivity on the gram-negative determine discharge antibiotics We will follow on clinical condition and cultures to further adjust medication if needed Thank you for this consultation we will follow the patient along with you Dictation was produced using [employer] dictation software. please excuse any grammatical, word or spelling errors. Time with Patient: Greater than 30
[2023-11-26 03:46] LABS: INR 2.3 (<1.2); Prothrombin Time 22.8 sec (10.0-12.5)
[2023-11-26 08:53] LABS: Basophils # (A) 0.02 X 10*3/uL (0.00-0.10); Basophils % (A) 0.4 %; Eosinophils % (A) 2.2 %; HCT 23.6 % (39.6-50.0); HGB 7.2 g/dL (13.0-17.0); Lymphocytes # (A) 0.43 X 10*3/uL (0.90-5.00); Lymphocytes % (A) 9.6 %; MCH 29.1 pg (27.0-32.0); MCHC 30.5 g/dL (32.0-37.0); MCV 95.5 FL (80.0-97.0); Mean Platelet Volume 10.2 FL (9.5-12.2); Monocytes # (A) 0.47 X 10*3/uL (0.20-1.00); Monocytes % (A) 10.5 %; NRBC Per 100 WBC 0 X 10*3/uL (0.00-0.01); Neutrophils # (A) 3.43 X 10*3/uL (1.80-7.70); Neutrophils % (A) 77.1 %; Platelet Count 130 X 10*3/uL (140-440); RBC 2.47 X 10*6/uL (4.40-5.60); RDW 15.9 % (11.5-14.5); WBC 4.46 X 10*3/uL (4.50-10.00)
[2023-11-26 09:28] LABS: BUN/Creat Ratio 18.46 Ratio (12.00-20.00); Calcium 8.2 mg/dL (8.7-10.3); Carbon Dioxide 17.1 mmol/L (21.6-31.8); Chloride 115 mmol/L (96-109); Glucose 130 mg/dL (70-110); Magnesium 2.3 mg/dL (1.5-2.4); Potassium 3.9 mmol/L (3.5-5.5); Sodium 144 mmol/L (135-145)
--- NOTE | 2023-11-26 11:31 | P.PN ---
Subjective Patient is seen in follow-up for acute kidney injury. Creatinine 3.9 today. Has Felder catheter for urinary retention. Nonoliguric. Denies chest pain or shortness of breath. Vital signs are stable. General: No acute distress. HEENT: Head exam is unremarkable. On room air. LUNGS: No audible rhonchi or wheezes. HEART: Rate and Rhythm are regular. ABDOMEN: Nontender. EXTREMITITES: No edema. Objective - Vital Signs Vital signs: Vital Signs Temp 97.9 F 11/26/23 07:00 Pulse 92 11/26/23 09:11 Resp 22 11/26/23 08:00 BP 119/62 11/26/23 07:00 Pulse Ox 99 11/26/23 08:36 FiO2 Intake & Output 11/25/23 11/26/23 11/26/23 18:59 06:59 18:59 Intake Total 118 360 Output Total 400 300 Balance -282 60 Intake: Oral 118 360 Output: Urine 400 300 Other: Voiding Method Indwelling Catheter Indwelling Catheter Indwelling Catheter # Voids 1 # Bowel Movements 0 0 - Labs CBC & Chem 7: 11/26/23 02:57 11/26/23 02:57 Labs: Abnormal Lab Results - Last 24 Hours (Table) 11/26/23 11/26/23 11/26/23 Range/Units 02:57 02:57 02:57 WBC 4.46 L (4.50-10.00) X 10*3/uL RBC 2.47 L (4.40-5.60) X 10*6/uL Hgb 7.2 L (13.0-17.0) g/dL Hct 23.6 L (39.6-50.0) % MCHC 30.5 L (32.0-37.0) g/dL RDW 15.9 H (11.5-14.5) % Plt Count 130 L (140-440) X 10*3/uL Lymphocytes # 0.43 L (0.90-5.00) X 10*3/uL PT 22.8 H (10.0-12.5) sec INR 2.3 H (<1.2) Chloride 115 H (96-109) mmol/L Carbon Dioxide 17.1 L (21.6-31.8) mmol/L BUN 72.0 H (9.0-27.0) mg/dL Creatinine 3.9 H (0.6-1.5) mg/dL Est GFR (CKD-EPI) 15 L (>=60) Glucose 130 H (70-110) mg/dL Calcium 8.2 L (8.7-10.3) mg/dL Microbiology - Last 24 Hours (Table) 11/23/23 06:30 Stool Culture - Final Stool 11/23/23 06:30 Urine Culture - Preliminary Urine,Clean Catch Gram Neg Bacilli Proteus mirabilis Assessment and Plan Plan: Assessment: 1. Acute kidney injury secondary to obstructive uropathy and infection. Creatinine near 1 in May 2023. Renal function worsening with creatinine 3.9 today. No hydronephrosis noted on CT. 2. Proteus UTI on antibiotics. 3. Chronic systolic CHF ejection fraction of 30 to 35%, mild to moderate aortic stenosis/tricuspid regurgitation and moderate to severe aortic regurgitation noted on echocardiogram done in July 2023. 4. Metabolic acidosis secondary to acute kidney injury and IV fluids. Better. On bicarb drip. 5. Urinary retention. Has Felder catheter. On Flomax. Urology consulted. 6. Anemia. Avoid IV iron in the setting of acute infection. Plan: Maintain bicarb drip for now. Continue to monitor renal function and urine output. Repeat UA. Check urine eosinophils.
--- NOTE | 2023-11-26 11:37 | P.GSCN ---
History of Present Illness Consult date: 11/26/23 Reason for Consult: Urinary retention History of present illness: Is a 83-year-old male with history of chronic urinary retention and incomplete bladder emptying, indicated urinary retention resolved following undergoing a UroLift by Dr. Dietrich. He indicated for the past 6 months he has been able to void without any difficulties. Admitted to the hospital with acute kidney injury, urology is consulted for urinary retention. Patient postvoid residual was checked and it was elevated at the 280 to 330 mL range. He did go undergo go a CT abdomen and pelvis that showed no evidence of hydronephrosis. Currently catheter is in place draining clear yellow urine Review of Systems - Constitutional Denies fever, Denies weight loss - Cardiovascular Denies chest pain, Denies shortness of breath - Respiratory Denies cough, Denies 7 - Gastrointestinal Reports abdominal pain, Denies nausea, Denies vomiting - Genitourinary Denies dysuria, Denies hematuria - Neurological Denies headaches, Denies syncope Past Medical History Past Medical History: Atrial Fibrillation, Heart Failure, COPD, GI Bleed, Hyperlipidemia, Pneumonia, Renal Disease, Skin Disorder, Vascular Disorder Additional Past Medical History / Comment(s): GI bleed, gastritis, gastric ectasia, CKD stage III, past abdominal aortic aneurysm/had stent placed, varicosities, PVD, past shingellis and occasionally will have R flank nerve pain, BPH. Covid 09/2022 History of Any Multi-Drug Resistant Organisms: MRSA Year Discovered:: 03/19/22 MDRO Source:: Urine Past Surgical History: Cardiac Valve Replacement, Cholecystectomy, Heart C atheterization Additional Past Surgical History / Comment(s): Stent placed for lower abd aortic aneurysym, mitral valve replacement/bicuspid repair, EGD with ablation, colonos copy, excision L cheek lesion/mass and lesion from scalp/all benign, ZEPHER VALVE PLACED 2 YRS AGO AT [facility] Past Anesthesia/Blood Transfusion Reactions: No Reported Reaction Date of Last Stent Placement:: 2015 Past Psychological History: Anxiety Smoking Status: Former smoker Past Alcohol Use History: Occasional Past Drug Use History: None Reported - Past Family History Mother Family Medical History: Myocardial Infarction ([place]) Additional Family Medical History / Comment(s): at a young age. Father Family Medical History: Hypertension Medications and Allergies Home Medications Medication Instructions Recorded Confirmed Type Fluticasone Propion/Salmeterol 1 puff INHALATION RT-BID 05/05/22 11/23/23 History [Wixela 100-50 Inhub] Sertraline [Zoloft] 50 mg PO HS 05/05/22 11/23/23 History Warfarin [Coumadin] 1 mg PO SUTUTHSA@199907/12/22 11/23/23 History Tamsulosin [Flomax] 0.4 mg PO DAILY 08/30/22 11/23/23 History Warfarin Sodium 4 mg PO MOWEFR@199908/30/22 11/23/23 History Bisoprolol [Zebeta] 5 mg PO DAILY 05/01/23 11/23/23 History Nitroglycerin Sl Tabs [Nitrostat] 0.4 mg SUBLINGUAL Q5M PRN tab 07/26/23 11/23/23 Rx LORazepam [Ativan] 0.5 mg PO BID PRN 10/04/23 11/23/23 History Sacubitril/Valsartan [Entresto 49 1 tab PO BID@0800,1600 10/04/23 11/23/23 History mg-51 mg Tablet] Tiotropium 2.5 Mcg/Puff [Spiriva 2 puff INHALATION RT-DAILY 10/04/23 11/23/23 History Respimat 2.5 Mcg] Ferrous Sulfate [Feosol] 325 mg PO BID 11/23/23 11/23/23 History Furosemide [Lasix] 40 mg PO DAILY 11/23/23 11/23/23 History Ipratropium-Albuterol Nebulize 3 ml INHALATION RT-QID PRN 11/23/23 11/23/23 History [Duoneb 0.5 mg-3 mg/3 ml Soln] predniSONE 2.5 mg PO DAILY 11/23/23 11/23/23 History Allergies Allergy/AdvReac Type Severity Reaction Status Date / Time empagliflozin Allergy Dyspnea Verified 11/23/23 09:10 [From Jardiance] iodine AdvReac Unknown Verified 11/23/23 09:10 morphine AdvReac Hallucinati Verified 11/23/23 09:10 ons Patches on chest Allergy Swelling, Uncoded 10/04/23 14:02 See Comment pain med (can't remember AdvReac Hallucinati Uncoded 10/04/23 14:02 name) ons Surgical - Exam Vital Signs Temp Pulse Resp BP Pulse Ox 97.7 F 81 18 113/61 99 11/23/23 05:06 11/23/23 05:06 11/23/23 05:06 11/23/23 05:06 11/23/23 05:06 - General no distress, no pain - Eyes normal ocular movement, pale - ENT normal nares, normal mucosa - Respiratory normal expansion, normal respiratory effort - Abdomen Abdomen: soft, non tender, no distended Results - Labs 11/26/23 02:57 11/26/23 02:57 Abnormal Lab Results - Last 24 Hours (Table) 11/26/23 11/26/23 11/26/23 Range/Units 02:57 02:57 02:57 WBC 4.46 L (4.50-10.00) X 10*3/uL RBC 2.47 L (4.40-5.60) X 10*6/uL Hgb 7.2 L (13.0-17.0) g/dL Hct 23.6 L (39.6-50.0) % MCHC 30.5 L (32.0-37.0) g/dL RDW 15.9 H (11.5-14.5) % Plt Count 130 L (140-440) X 10*3/uL Lymphocytes # 0.43 L (0.90-5.00) X 10*3/uL PT 22.8 H (10.0-12.5) sec INR 2.3 H (<1.2) Chloride 115 H (96-109) mmol/L Carbon Dioxide 17.1 L (21.6-31.8) mmol/L BUN 72.0 H (9.0-27.0) mg/dL Creatinine 3.9 H (0.6-1.5) mg/dL Est GFR (CKD-EPI) 15 L (>=60) Glucose 130 H (70-110) mg/dL Calcium 8.2 L (8.7-10.3) mg/dL Microbiology - Last 24 Hours (Table) 11/23/23 06:30 Stool Culture - Final Stool 11/23/23 06:30 Urine Culture - Preliminary Urine,Clean Catch Gram Neg Bacilli Proteus mirabilis Diabetes panel 11/26/23 Range/Units 02:57 Sodium 144 (135-145) mmol/L Potassium 3.9 (3.5-5.5) mmol/L Chloride 115 H (96-109) mmol/L Carbon Dioxide 17.1 L (21.6-31.8) mmol/L BUN 72.0 H (9.0-27.0) mg/dL Creatinine 3.9 H (0.6-1.5) mg/dL Glucose 130 H (70-110) mg/dL Calcium 8.2 L (8.7-10.3) mg/dL Calcium panel 11/26/23 Range/Units 02:57 Calcium 8.2 L (8.7-10.3) mg/dL Pituitary panel 11/26/23 Range/Units 02:57 Sodium 144 (135-145) mmol/L Potassium 3.9 (3.5-5.5) mmol/L Chloride 115 H (96-109) mmol/L Carbon Dioxide 17.1 L (21.6-31.8) mmol/L BUN 72.0 H (9.0-27.0) mg/dL Creatinine 3.9 H (0.6-1.5) mg/dL Glucose 130 H (70-110) mg/dL Calcium 8.2 L (8.7-10.3) mg/dL Adrenal panel 11/26/23 Range/Units 02:57 Sodium 144 (135-145) mmol/L Potassium 3.9 (3.5-5.5) mmol/L Chloride 115 H (96-109) mmol/L Carbon Dioxide 17.1 L (21.6-31.8) mmol/L BUN 72.0 H (9.0-27.0) mg/dL Creatinine 3.9 H (0.6-1.5) mg/dL Glucose 130 H (70-110) mg/dL Calcium 8.2 L (8.7-10.3) mg/dL Assessment and Plan Assessment: 83-year-old with history urinary retention resolved following UroLift. The hospital with acute kidney injury. Underwent a CT abdomen pelvis on presentation which showed no evidence of hydronephrosis. His elevated residual are unlikely to be the cause of his acute kidney injury given the lack of hydronephrosis. Given his prolonged history of urinary retention, and his age I would anticipate him to have a high postvoid residual. At this time the Felder catheter can be removed once his renal function stabilizes. At that point I recommend obtaining a postvoid residual if it is less than 500 mL then no indication to reinsert a Felder catheter
--- NOTE | 2023-11-26 13:51 | P.PN ---
Subjective Progress Note Date: 11/26/23 11/23/23 Samir is a 83-year-old male well-known to the practice. He reports 3-day history of incessant diarrhea with multiple episodes of stools. He has a long history of atrial fibrillation, congestive heart failure, chronic renal failure, and a previous history of urinary retention with Felder catheter. Felder catheter was discontinued about 6 months ago and he had been doing well urinating without it. At this time he says he is urinating. He denies any chest pains pressures or shortness of breath that is different than any other time. He reports his stools are normal in color. Vitals are stable laboratory studies show a hyponatremia., He is chronically anemic hemoglobin is 9, BUN and creatinine are 83 and 2.47 with a GFR of 23. He is in good spirits. November 24, 2023: Patient is reevaluated today. He is feeling better overnight though he did have some confusion. He apparently called 911 while in his hospital bed. He says he realized his mistake right away and it was just after he was waking up that he felt very strange. He is feeling back to normal at this time. He denies any chest pains pressures. Shortness of breath is chronic and stable. Vital signs show temp 97.7 pulse oximetry 97% on 3 L O2, blood pressure is controlled. Labs this morning showed his sodium is now 139. Kidney function still little off with a BUN of 80 and a creatinine of 2.96. GFR is down to 19. Staff report postvoid residuals were 290 after urinating. He indicates he is urinating freely and does not wish to deal with a catheter at this time. He also reports no diarrhea overnight. Nephrology is following. 11/25/2023 worsening renal function, bicarb 15, BUN 74, creatinine 3.72, GFR 14, continues on bicarb drip. Nephrology following. blood sugars controlled. Viral studies negative, C. difficile negative. Sensorium significantly improved, alert and oriented x 3; staff reports patient is impulsive. Complains of constipation, no bowel movement in 2 days. Denies chest pain, palpitations or shortness of breath. Maintaining O2 sats in the 90s on 3 L nasal cannula. Echo from 07/25 reporting EF of 30 to 35%. Chest x-ray reported COPD with right basilar infiltrate/consolidation, persistent prominence of the left hilum. Brain CT reported no acute intracranial process. 11/26/2023 sensorium significantly improved. Maintained on bicarb drip, bicarb increased to 17, BUN 72, creatinine 3.9. Urine culture reporting gram-negative bacilli, Proteus Mirabilis, maintained on cefepime. Felder catheter for urinary retention. Evaluated by urology, recommendations noted including expecting this patient to have a higher postvoid residual of less than 500 mL. Maintaining O2 sats in the high 90s on 3 L nasal cannula. Hemoglobin decreased to 7.2, platelets 130. Denies chest pain, palpitations. INR 2.3 , anticoagulated on Coumadin .Reports very small bowel movement, MiraLAX changed from as needed to daily. Objective - Vital Signs Vital signs: Vital Signs Temp 97.9 F 11/26/23 07:00 Pulse 92 11/26/23 11:46 Resp 22 11/26/23 08:00 BP 119/62 11/26/23 07:00 Pulse Ox 99 11/26/23 08:36 FiO2 Intake & Output 11/25/23 11/26/23 11/26/23 18:59 06:59 18:59 Intake Total 118 360 Output Total 400 300 Balance -282 60 Intake: Oral 118 360 Output: Urine 400 300 Other: Voiding Method Indwelling Catheter Indwelling Catheter Indwelling Catheter # Voids 1 # Bowel Movements 0 0 - Exam General: Alert and oriented x 3, sitting up in chair, no acute distress. HEENT: Normocephalic PERRLA EOMI. Neck: Supple, no JVD Cardiac: Heart regular in rate and rhythm . No S3. No S4. No clicks, rubs. Positive systolic murmur consistent with his aortic valve replacement Lungs: Diminished breath sounds bilaterally with bibasilar expiratory expiratory wheezes and coarse rhonchi (close to baseline) Abdomen: Soft, nontender, no hepatosplenomegaly, no guarding, no rigidity, +BS. Extremes: [No edema no cyanosis no claudication normal pulses : indwelling Felder catheter Skin: [No rash, warm and dry Neurologic: Cranial nerves II through XII grossly intact. No focal deficits. - Labs CBC & Chem 7: 11/26/23 02:57 11/26/23 02:57 Labs: Abnormal Lab Results - Last 24 Hours (Table) 11/26/23 11/26/23 11/26/23 Range/Units 02:57 02:57 02:57 WBC 4.46 L (4.50-10.00) X 10*3/uL RBC 2.47 L (4.40-5.60) X 10*6/uL Hgb 7.2 L (13.0-17.0) g/dL Hct 23.6 L (39.6-50.0) % MCHC 30.5 L (32.0-37.0) g/dL RDW 15.9 H (11.5-14.5) % Plt Count 130 L (140-440) X 10*3/uL Lymphocytes # 0.43 L (0.90-5.00) X 10*3/uL PT 22.8 H (10.0-12.5) sec INR 2.3 H (<1.2) Chloride 115 H (96-109) mmol/L Carbon Dioxide 17.1 L (21.6-31.8) mmol/L BUN 72.0 H (9.0-27.0) mg/dL Creatinine 3.9 H (0.6-1.5) mg/dL Est GFR (CKD-EPI) 15 L (>=60) Glucose 130 H (70-110) mg/dL Calcium 8.2 L (8.7-10.3) mg/dL Microbiology - Last 24 Hours (Table) 11/23/23 06:30 Urine Culture - Preliminary Urine,Clean Catch Gram Neg Bacilli Proteus mirabilis 11/23/23 06:30 Stool Culture - Final Stool Assessment and Plan Assessment: Acute UTI, gram-negative bacilli, Proteus Mirabilis, cystitis Diarrhea, resolved. Constipation Dehydration Acute on chronic renal failure stage IV, secondary to acute UTI, urinary retention, possibly cardiorenal syndrome. Urinary retention requiring Felder catheter placement. No hydronephrosis. Right basilar infiltrate,consolidation, persistent prominence of the left hilum, reported per chest x-ray. COPD Moderate to severe pulmonary hypertension Chronic hypoxic respiratory failure on home oxygen Acute on chronic heart failure with reduced EF Anemia of chronic disease Persistent atrial fibrillation History of tissue [facility], [facility]pid [facility], [facility] Nonischemic cardiomyopathy Hypertension Hyperlipidemia Peripheral vascular disease History of abdominal aortic aneurysm History of rheumatic fever Plan continue on current medication regimen ,monitoring and symptomatic treatment. Bicarb drip.IV antibiotics of cefepime as per ID. Close monitoring of renal function, hemoglobin and platelets with repeat labs ordered for a.m. type and cross ordered for potential transfusion. Coumadin anticoagulation as per pharmacy dosing.PT/OT. Subacute rehab at discharge. The impression and plan of care has been dictated as directed. : I performed a history and examination of this patient, discussed the same with the dictator. I agree with the dictator's note ,documented as a scribe. Any additional findings or plans will be noted.
--- NOTE | 2023-11-26 14:31 | CDI ---
Documentation Clarification Form Date: 11/26/2023 01:51:21 PM From: Bertha Dinero RN CCDS Phone: [phone] Admit Date: 11/25/2023 07:28:00 AM Patient Name: Ankur Pereira Visit Number: [id number] Discharge Date: ATTENTION: The Clinical Documentation Specialists (CDI) and [employer] Coding Staff appreciate your assistance in clarifying documentation. Please respond to the clarification below the line at the bottom and electronically sign. The CDI & [employer] Coding staff will review the response and follow-up if needed. Please note: Queries are made part of the Legal Health Record. If you have any questions, please contact the author of this message via ITS. Provider: ECHO Werner Conflicting documentation has been found in the medical record. As attending physician, please provide clarification. Acute on chronic heart failure with reduced EF documented 11/24, Medicine note. Chronic Systolic CHF EF 30 to 35%, documented 11/25, Nephrology note. History/Risk Factors: 83 year old male presents to the ED with incessant diarrhea with multiple episodes of stools. Medical History: CHF, Atrial fibrillation, CKD and previous history of urine retention with saez catheter . Saez catheter was discontinued six months ago and doing well urinating without it. 11/22, HP Clinical Indicators: VSS, 11/22: B/P 113/61 HR 81 Temp 97.7F Oral RR 18 SpO2 99% 4L nc CXR, 11/24: COPD with right basilar infiltrate History of Medications, HP, 11/22 Lasix 40mg po daily, Entresto 49mg-51mg po x1 bid ECHO, : Left ventricular ejection fraction 30-35% RSVP 56, Moderate right atrial dilation, Severe left atrial dilation, Normally functioning mitral bioprosthetic valve with trace mitral regurgitation. Mild to moderate aortic stenosis with some component of low flow low gradient aortic stenosis. Dimensionless index of 0.41. Moderate to severe aortic regurgitation. Consider PADMINI if clinically indicated. Mild to moderate tricuspid regurgitation Treatment: Hold Entresto due to Km , 11/23 Nephrology consult, Strict I&Os, 11/22 11/24 0.9ns IV 75cchr, 11/22 0.9NS IV 500cc bolus Please clarify which diagnosis is most appropriate: [ ] Acute on Chronic Systolic Heart Failure [ ] Chronic Systolic Heart Failure [ ] Other (please specify) [ ] Unable to determine (Template Last Revised: May 2020) Documented Medicine progress note by Leandro Harris NP, Dr. Rodriguez: "Chronic heart failure with reduced EF" MTDD
[2023-11-26 14:45] VITALS: BMI 16.5
[2023-11-26 14:56] LABS: Appearance,Urine Turbid (Clear); Bilirubin,Urine Negative (Negative); Blood,Urine Moderate (Negative); Color,Urine Colorless; Glucose,Urine (UA) Negative (Negative); Ketones,Urine Negative (Negative); Leukocyte Esterase,Urine Large (Negative); Mucus,Urine Rare /hpf; Nitrite,Urine Negative (Negative); PH, Urine 5.5 (5.0-8.0); Protein,Urine 2+ (Negative); RBC,Urine 38 /hpf (0-5); Specific Gravity,Urine 1.017 (1.001-1.035); Squamous Epithelial Cell,Urine 1 /hpf (0-4); Urobilinogen,Urine <2.0 mg/dL (<2.0); WBC,Urine >182 /hpf (0-5)
[2023-11-26 16:37] LABS: Complement C3 79.3 mg/dL (80.0-207.0)
[2023-11-26 16:41] LABS: Protein, Total 5.5 g/dL (6.2-8.2)
[2023-11-26 17:03] LABS: Hepatitis A Antibody IgM Nonreactive (Nonreactive); Hepatitis B Core IgM Nonreactive (Nonreactive); Hepatitis B Surface Antigen Nonreactive (Nonreactive); Hepatitis C IgG Antibody Nonreactive (Nonreactive)
[2023-11-26] MEDS: polyethylene glycoL 3350 17 GM POWD.PACK PO SCH (17:29)
[2023-11-26 18:00] LABS: Anti-DNA, DS unit <1.0 IU/mL; DNA Double-Stranded Negative (Negative)
[2023-11-27 05:56] LABS: INR 3.7 (<1.2); Prothrombin Time 36.1 sec (10.0-12.5)
--- NOTE | 2023-11-27 08:46 | P.PN ---
Subjective Progress Note Date: 11/26/23 Principal diagnosis: Reason for follow-up is a urinary tract infection Patient is a 83-year-old male with a past medical history significant for hyperlipidemia COPD heart failure with atrial fibrillation BPH presenting to the hospital for evaluation of diarrhea also difficulty urination requiring Felder catheter placement did have a positive UA and urine has been finalized with drug-resistant Proteus prompting this consultation. On today's evaluation that is 11/26/2023,the patient denies any fever or any chills, patient is breathing comfortably on 2 L nasal cannula oxygen, the patient denies chest pain shortness of breath and no significant cough, patient denies abdominal pain, no nausea vomiting or diarrhea. Patient white count is 4.46, INR is 2.3 creatinine 3.9 urine showing Proteus and another gram-negative with ID sensitivities pending Objective - Vital Signs Vital signs: Vital Signs Temp 97.9 F 11/26/23 07:00 Pulse 111 H 11/26/23 13:29 Resp 20 11/26/23 13:29 BP 104/69 11/26/23 13:29 Pulse Ox 99 11/26/23 13:29 FiO2 Intake & Output 11/25/23 11/26/23 11/26/23 18:59 06:59 18:59 Intake Total 118 360 Output Total 400 300 Balance -282 60 Intake: Oral 118 360 Output: Urine 400 300 Other: Voiding Method Indwelling Catheter Indwelling Catheter Indwelling Catheter # Voids 1 # Bowel Movements 0 0 - Exam GENERAL DESCRIPTION: An elderly male lying in bed in no distress RESPIRATORY SYSTEM: Unlabored breathing , decreased breath sounds at bases HEART: S1 S2 regular rate and rhythm , ABDOMEN: Soft , no tenderness EXTREMITIES: No edema feet - Labs CBC & Chem 7: 11/26/23 02:57 11/26/23 02:57 Labs: Abnormal Lab Results - Last 24 Hours (Table) 11/26/23 11/26/23 11/26/23 Range/Units 02:57 02:57 02:57 WBC 4.46 L (4.50-10.00) X 10*3/uL RBC 2.47 L (4.40-5.60) X 10*6/uL Hgb 7.2 L (13.0-17.0) g/dL Hct 23.6 L (39.6-50.0) % MCHC 30.5 L (32.0-37.0) g/dL RDW 15.9 H (11.5-14.5) % Plt Count 130 L (140-440) X 10*3/uL Lymphocytes # 0.43 L (0.90-5.00) X 10*3/uL PT 22.8 H (10.0-12.5) sec INR 2.3 H (<1.2) Chloride 115 H (96-109) mmol/L Carbon Dioxide 17.1 L (21.6-31.8) mmol/L BUN 72.0 H (9.0-27.0) mg/dL Creatinine 3.9 H (0.6-1.5) mg/dL Est GFR (CKD-EPI) 15 L (>=60) Glucose 130 H (70-110) mg/dL Calcium 8.2 L (8.7-10.3) mg/dL Microbiology - Last 24 Hours (Table) 11/23/23 06:30 Urine Culture - Preliminary Urine,Clean Catch Gram Neg Bacilli Proteus mirabilis 11/23/23 06:30 Stool Culture - Final Stool Assessment and Plan (1) Cystitis Current Visit: Yes Status: Acute Code(s): N30.90 - CYSTITIS, UNSPECIFIED WITHOUT HEMATURIA SNOMED Code(s): 39066082 (2) UTI (urinary tract infection) Current Visit: Yes Status: Acute Code(s): N39.0 - URINARY TRACT INFECTION, SITE NOT SPECIFIED SNOMED Code(s): 36240511 Plan: 1patient presented to hospital with diarrhea he also have some suprapubic discomfort did have a significantly positive UA concerning for symptomatic urinary tract infection likely from gram-negative pathogen with urine currently showing drug-resistant Proteus and another gram-negative with ID sensitivities still pending as of 11/26/2023 2-patient with renal insufficiency and high risk of nephrotoxicity 3-patient to continue with the cefepime while waiting for the sensitivity on the second gram-negative to determine discharge antibiotics Dictation was produced using [employer] dictation software. please excuse any gr ammatical, word or spelling errors. Time with Patient: Less than 30
[2023-11-27] MEDS ORDERED: polyethylene glycoL 3350 17 GM POWD.PACK PO SCH (09:00)
[2023-11-27 09:25] LABS: BUN/Creat Ratio 18.37 Ratio (12.00-20.00); Blood Urea Nitrogen 75.3 mg/dL (9.0-27.0); Glucose 104 mg/dL (70-110)
[2023-11-27 09:26] LABS: Calcium 8.5 mg/dL (8.7-10.3); Carbon Dioxide 21.5 mmol/L (21.6-31.8); Chloride 112 mmol/L (96-109); Magnesium 2.2 mg/dL (1.5-2.4); Potassium 3.9 mmol/L (3.5-5.5); Sodium 145 mmol/L (135-145)
--- NOTE | 2023-11-27 12:11 | XR ---
EXAMINATION TYPE: XR chest 1V portable DATE OF EXAM: 11/27/2023 COMPARISON: 11/25/2023 HISTORY: Shortness of breath TECHNIQUE: Single frontal view of the chest is obtained. FINDINGS: Emphysematous changes seen with bilateral subsegmental consolidation. Tiny right pleural e ffusion. No pneumothorax. Prominence of the heart and left hilum. Atherosclerotic change aorta. Cardi ac valve replacement surgery. Median sternotomy changes. IMPRESSION: 1. COPD with basilar atelectasis. Would correlate for mild venous congestion\interstitial pneumonitis versus chronic interstitial pulmonary fibrosis. [facility], , 11/27/2023 12:08 PM
--- NOTE | 2023-11-27 12:36 | P.PN ---
Subjective Patient is seen in follow-up for acute kidney injury. Creatinine 4.1 today. Has Felder catheter for urinary retention. Urine output about 500 cc overnight. Denies chest pain or shortness of breath. Vital signs are stable. General: No acute distress. HEENT: Head exam is unremarkable. On nasal cannula. LUNGS: No audible rhonchi or wheezes. HEART: Rate and Rhythm are regular. ABDOMEN: Nontender. EXTREMITITES: No edema. Objective - Vital Signs Vital signs: Vital Signs Temp 97.9 F 11/27/23 07:00 Pulse 117 H 11/27/23 09:58 Resp 22 11/27/23 08:00 BP 109/62 11/27/23 07:00 Pulse Ox 98 11/27/23 09:48 FiO2 Intake & Output 11/26/23 11/27/23 11/27/23 18:59 06:59 18:59 Intake Total 354 240 Output Total 275 200 200 Balance 79 40 -200 Weight 50.802 kg Intake: Oral 354 240 Output: Urine 275 200 200 Other: Voiding Method Indwelling Catheter Indwelling Catheter Indwelling Catheter # Voids 1 1 # Bowel Movements 0 0 0 - Labs CBC & Chem 7: 11/26/23 02:57 11/27/23 04:39 Labs: Abnormal Lab Results - Last 24 Hours (Table) 11/26/23 11/26/23 11/26/23 Range/Units 12:00 12:00 14:40 PT (10.0-12.5) sec INR (<1.2) Chloride (96-109) mmol/L Carbon Dioxide (21.6-31.8) mmol/L BUN (9.0-27.0) mg/dL Creatinine (0.6-1.5) mg/dL Est GFR (CKD-EPI) (>=60) Calcium (8.7-10.3) mg/dL Total Protein (PEP) 5.5 L (6.2-8.2) g/dL Urine Protein 2+ H (Negative) Urine Blood Moderate H (Negative) Ur Leukocyte Esterase Large H (Negative) Urine RBC 38 H (0-5) /hpf Urine WBC >182 H (0-5) /hpf Urine WBC Clumps Many H (None) /hpf Urine Mucus Rare H (None) /hpf Complement C3 79.3 L (80.0-207.0) mg/dL 11/27/23 11/27/23 Range/Units 04:39 04:39 PT 36.1 H (10.0-12.5) sec INR 3.7 H (<1.2) Chloride 112 H (96-109) mmol/L Carbon Dioxide 21.5 L (21.6-31.8) mmol/L BUN 75.3 H (9.0-27.0) mg/dL Creatinine 4.1 H (0.6-1.5) mg/dL Est GFR (CKD-EPI) 14 L (>=60) Calcium 8.5 L (8.7-10.3) mg/dL Total Protein (PEP) (6.2-8.2) g/dL Urine Protein (Negative) Urine Blood (Negative) Ur Leukocyte Esterase (Negative) Urine RBC (0-5) /hpf Urine WBC (0-5) /hpf Urine WBC Clumps (None) /hpf Urine Mucus (None) /hpf Complement C3 (80.0-207.0) mg/dL Microbiology - Last 24 Hours (Table) 11/23/23 06:30 Urine Culture - Preliminary Urine,Clean Catch Gram Neg Bacilli Proteus mirabilis 11/23/23 06:30 Stool Culture - Final Stool Assessment and Plan Plan: Assessment: 1. Acute kidney injury secondary to obstructive uropathy and infection. Creatinine near 1 in May 2023. Renal function worsening with creatinine 4.1 today. No hydronephrosis noted on CT. 2. Proteus UTI on antibiotics. 3. Chronic systolic CHF ejection fraction of 30 to 35%, mild to moderate aortic stenosis/tricuspid regurgitation and moderate to severe aortic regurgitation noted on echocardiogram done in July 2023. 4. Metabolic acidosis secondary to acute kidney injury and IV fluids. Better. On bicarb drip. Better. 5. Urinary retention. Has Felder catheter. On Flomax. Seen by urology. No further interventions planned. 6. Anemia. Avoid IV iron in the setting of acute infection. Plan: Stop bicarb drip. Start half-normal saline at 75 cc an hour. Continue to monitor renal function and urine output. Follow-up serologies. Negative so far except for mildly decreased C3 level. Urine eosinophils negative. Add Aranesp. Add oral bicarb. Maintain Felder catheter for now.
[2023-11-27] MEDS: SODIUM BICARBONATE TAB 650 MG TAB PO SCH (13:04)
[2023-11-27] MEDS: SODIUM CHLORIDE 0.45% 1,000 ML IV SCH (13:05)
[2023-11-27] MEDS: IPRATROPIUM-ALBUTEROL 3 ML NEB INHALATION STA (13:21)
--- NOTE | 2023-11-27 14:10 | P.PN ---
Subjective Progress Note Date: 11/27/23 11/23/23 Samir is a 83-year-old male well-known to the practice. He reports 3-day history of incessant diarrhea with multiple episodes of stools. He has a long history of atrial fibrillation, congestive heart failure, chronic renal failure, and a previous history of urinary retention with Felder catheter. Felder catheter was discontinued about 6 months ago and he had been doing well urinating without it. At this time he says he is urinating. He denies any chest pains pressures or shortness of breath that is different than any other time. He reports his stools are normal in color. Vitals are stable laboratory studies show a hyponatremia., He is chronically anemic hemoglobin is 9, BUN and creatinine are 83 and 2.47 with a GFR of 23. He is in good spirits. November 24, 2023: Patient is reevaluated today. He is feeling better overnight though he did have some confusion. He apparently called 911 while in his hospital bed. He says he realized his mistake right away and it was just after he was waking up that he felt very strange. He is feeling back to normal at this time. He denies any chest pains pressures. Shortness of breath is chronic and stable. Vital signs show temp 97.7 pulse oximetry 97% on 3 L O2, blood pressure is controlled. Labs this morning showed his sodium is now 139. Kidney function still little off with a BUN of 80 and a creatinine of 2.96. GFR is down to 19. Staff report postvoid residuals were 290 after urinating. He indicates he is urinating freely and does not wish to deal with a catheter at this time. He also reports no diarrhea overnight. Nephrology is following. 11/25/2023 worsening renal function, bicarb 15, BUN 74, creatinine 3.72, GFR 14, continues on bicarb drip. Nephrology following. blood sugars controlled. Viral studies negative, C. difficile negative. Sensorium significantly improved, alert and oriented x 3; staff reports patient is impulsive. Complains of constipation, no bowel movement in 2 days. Denies chest pain, palpitations or shortness of breath. Maintaining O2 sats in the 90s on 3 L nasal cannula. Echo from 07/25 reporting EF of 30 to 35%. Chest x-ray reported COPD with right basilar infiltrate/consolidation, persistent prominence of the left hilum. Brain CT reported no acute intracranial process. 11/26/2023 sensorium significantly improved. Maintained on bicarb drip, bicarb increased to 17, BUN 72, creatinine 3.9. Urine culture reporting gram-negative bacilli, Proteus Mirabilis, maintained on cefepime. Felder catheter for urinary retention. Evaluated by urology, recommendations noted including expecting this patient to have a higher postvoid residual of less than 500 mL. Maintaining O2 sats in the high 90s on 3 L nasal cannula. Hemoglobin decreased to 7.2, platelets 130. Denies chest pain, palpitations. INR 2.3 , anticoagulated on Coumadin .Reports very small bowel movement, MiraLAX changed from as needed to daily. 11/27/2023 mild tachycardia, low 1 teens,Bisprolol initiated. Coumadin per pharmacy dosing, INR elevated 3.7 today. Felder catheter present secondary to urinary retention. renal function worsening, creatinine 4.1. Bicarb 21.5, bicarb drip discontinued. maintaining O2 sats in the high 90s on 3 L nasal cannula. Continues on cefepime. Objective - Vital Signs Vital signs: Vital Signs Temp 97.9 F 11/27/23 07:00 Pulse 115 H 11/27/23 13:31 Resp 26 H 11/27/23 13:31 BP 109/62 11/27/23 07:00 Pulse Ox 98 11/27/23 09:48 FiO2 Intake & Output 11/26/23 11/27/23 11/27/23 18:59 06:59 18:59 Intake Total 354 240 Output Total 275 200 200 Balance 79 40 -200 Weight 50.802 kg Intake: Oral 354 240 Output: Urine 275 200 200 Other: Voiding Method Indwelling Catheter Indwelling Catheter Indwelling Catheter # Voids 1 1 # Bowel Movements 0 0 0 - Exam General: Alert and oriented x 3, sitting up in chair, no acute distress. HEENT: Normocephalic PERRLA EOMI. Neck: Supple, no JVD Cardiac: Heart regular in rate and rhythm . No S3. No S4. No clicks, rubs. Positive systolic murmur consistent with his aortic valve replacement Lungs: Diminished breath sounds bilaterally with bibasilar expiratory expiratory wheezes and coarse rhonchi (close to baseline) Abdomen: Soft, nontender, no hepatosplenomegaly, no guarding, no rigidity, +BS. Extremes: [No edema no cyanosis no claudication normal pulses : indwelling Felder catheter Skin: [No rash, warm and dry Neurologic: Cranial nerves II through XII grossly intact. No focal deficits. - Labs CBC & Chem 7: 11/26/23 02:57 11/27/23 04:39 Labs: Abnormal Lab Results - Last 24 Hours (Table) 11/26/23 11/26/23 11/26/23 Range/Units 12:00 12:00 14:40 PT (10.0-12.5) sec INR (<1.2) Chloride (96-109) mmol/L Carbon Dioxide (21.6-31.8) mmol/L BUN (9.0-27.0) mg/dL Creatinine (0.6-1.5) mg/dL Est GFR (CKD-EPI) (>=60) Calcium (8.7-10.3) mg/dL Total Protein (PEP) 5.5 L (6.2-8.2) g/dL Urine Protein 2+ H (Negative) Urine Blood Moderate H (Negative) Ur Leukocyte Esterase Large H (Negative) Urine RBC 38 H (0-5) /hpf Urine WBC >182 H (0-5) /hpf Urine WBC Clumps Many H (None) /hpf Urine Mucus Rare H (None) /hpf Complement C3 79.3 L (80.0-207.0) mg/dL 11/27/23 11/27/23 Range/Units 04:39 04:39 PT 36.1 H (10.0-12.5) sec INR 3.7 H (<1.2) Chloride 112 H (96-109) mmol/L Carbon Dioxide 21.5 L (21.6-31.8) mmol/L BUN 75.3 H (9.0-27.0) mg/dL Creatinine 4.1 H (0.6-1.5) mg/dL Est GFR (CKD-EPI) 14 L (>=60) Calcium 8.5 L (8.7-10.3) mg/dL Total Protein (PEP) (6.2-8.2) g/dL Urine Protein (Negative) Urine Blood (Negative) Ur Leukocyte Esterase (Negative) Urine RBC (0-5) /hpf Urine WBC (0-5) /hpf Urine WBC Clumps (None) /hpf Urine Mucus (None) /hpf Complement C3 (80.0-207.0) mg/dL Microbiology - Last 24 Hours (Table) 11/23/23 06:30 Urine Culture - Preliminary Urine,Clean Catch Gram Neg Bacilli Proteus mirabilis Assessment and Plan Assessment: Acute UTI, gram-negative bacilli, Proteus Mirabilis, cystitis Diarrhea, resolved. Constipation Dehydration Acute on chronic renal failure stage IV, secondary to acute UTI, urinary retention, possibly cardiorenal syndrome. Urinary retention requiring Felder catheter placement. No hydronephrosis. Right basilar infiltrate,consolidation, persistent prominence of the left hilum, reported per chest x-ray. COPD Moderate to severe pulmonary hypertension Chronic hypoxic respiratory failure on home oxygen Acute on chronic heart failure with reduced EF Anemia of chronic disease Persistent atrial fibrillation [facility]pid [facility], February 2015 [facility] Nonischemic cardiomyopathy Hypertension Hyperlipidemia Peripheral vascular disease History of abdominal aortic aneurysm History of rheumatic fever Plan continue on current medication regimen ,monitoring and symptomatic treatment. IV fluids, aranesp , oral bicarb as per nephrology .IV antibiotics of cefepime as per ID. Aggressive pulmonary toileting, nebulized bronchodilators scheduled and as needed. close monitoring of renal function, hemoglobin and platelets with repeat labs ordered for a.m. Coumadin anticoagulation as per pharmacy dosing.PT/OT. Subacute rehab at discharge. The impression and plan of care has been dictated as directed. : I performed a history and examination of this patient, discussed the same with the dictator. I agree with the dictator's note ,documented as a scribe. Any additional findings or plans will be noted.
[2023-11-27 14:28] LABS: C-ANCA <1:20 Titer (<1:20)
[2023-11-27 15:16] LABS: Anisocytosis Slight; HCT 27.3 % (39.0-53.0); HGB 8.6 gm/dL (13.0-17.5); Hypochromasia Marked; MCH 30.4 pg (25.0-35.0); MCHC 31.5 g/dL (31.0-37.0); MCV 96.6 fL (80.0-100.0); Platelet Count 131 k/uL (150-450); RBC 2.82 m/uL (4.30-5.90); RDW 16.4 % (11.5-15.5); WBC 5.7 k/uL (3.8-10.6)
[2023-11-27] MEDS: DARBEPOETIN ALFA 40 MCG/0.4 ML SYRINGE SQ SCH (15:30)
[2023-11-27] MEDS: BISOPROLOL 5 MG TAB PO SCH (15:31)
[2023-11-27] MEDS: IPRATROPIUM-ALBUTEROL 3 ML NEB INHALATION SCH (16:05)
[2023-11-27] MEDS: WARFARIN 0.5 MG TAB PO ONE (17:47)
[2023-11-28] MEDS: IPRATROPIUM-ALBUTEROL 3 ML NEB INHALATION PRN (05:49)
[2023-11-28 06:50] LABS: INR 3.4 (<1.2); Prothrombin Time 33.2 sec (10.0-12.5)
[2023-11-28 11:11] LABS: HCT 23.9 % (39.6-50.0); HGB 7.4 g/dL (13.0-17.0); MCH 30.1 pg (27.0-32.0); MCV 97.2 FL (80.0-97.0); Mean Platelet Volume 10.2 FL (9.5-12.2); NRBC Per 100 WBC 0 X 10*3/uL (0.00-0.01); Platelet Count 106 X 10*3/uL (140-440); RBC 2.46 X 10*6/uL (4.40-5.60); RDW 16.8 % (11.5-14.5); WBC 5.09 X 10*3/uL (4.50-10.00)
[2023-11-28 11:28] LABS: BUN/Creat Ratio 18.46 Ratio (12.00-20.00); Calcium 8.6 mg/dL (8.7-10.3); Carbon Dioxide 21.8 mmol/L (21.6-31.8); Chloride 105 mmol/L (96-109); Glucose 97 mg/dL (70-110); Potassium 4.3 mmol/L (3.5-5.5); Sodium 139 mmol/L (135-145)
--- NOTE | 2023-11-28 11:43 | P.PN ---
Subjective Patient is seen in follow-up for acute kidney injury. Creatinine slightly better at 3.9. Has Felder catheter for urinary retention. Urine output i mproved. Denies chest pain or shortness of breath. Vital signs are stable. General: No acute distress. HEENT: Head exam is unremarkable. On nasal cannula. LUNGS: No audible rhonchi or wheezes. HEART: Rate and Rhythm are regular. ABDOMEN: Nontender. EXTREMITITES: No edema. Objective - Vital Signs Vital signs: Vital Signs Temp 98.1 F 11/28/23 07:00 Pulse 101 H 11/28/23 09:36 Resp 24 11/28/23 08:00 BP 106/61 11/28/23 07:00 Pulse Ox 98 11/28/23 09:28 FiO2 Intake & Output 11/27/23 11/28/23 11/28/23 18:59 06:59 18:59 Intake Total 120 Output Total 650 650 400 Balance -530 -650 -400 Intake: Oral 120 Output: Urine 650 650 400 Other: Voiding Method Indwelling Catheter Indwelling Catheter Indwelling Catheter # Voids 1 # Bowel Movements 0 - Labs CBC & Chem 7: 11/28/23 06:16 11/28/23 06:16 Labs: Abnormal Lab Results - Last 24 Hours (Table) 11/27/23 11/28/23 11/28/23 Range/Units 14:59 06:16 06:16 RBC 2.82 L (4.30-5.90) m/uL Hgb 8.6 L (13.0-17.5) gm/dL Hct 27.3 L (39.0-53.0) % MCV (80.0-97.0) FL MCHC (32.0-37.0) g/dL RDW 16.4 H (11.5-15.5) % Plt Count 131 L (150-450) k/uL PT 33.2 H (10.0-12.5) sec INR 3.4 H (<1.2) Anion Gap 12.20 H (4.00-12.00) mmol/L BUN 72.0 H (9.0-27.0) mg/dL Creatinine 3.9 H (0.6-1.5) mg/dL Est GFR (CKD-EPI) 15 L (>=60) Calcium 8.6 L (8.7-10.3) mg/dL 11/28/23 Range/Units 06:16 RBC 2.46 L (4.30-5.90) m/uL Hgb 7.4 L (13.0-17.5) gm/dL Hct 23.9 L (39.0-53.0) % MCV 97.2 H (80.0-97.0) FL MCHC 31.0 L (32.0-37.0) g/dL RDW 16.8 H (11.5-15.5) % Plt Count 106 L (150-450) k/uL PT (10.0-12.5) sec INR (<1.2) Anion Gap (4.00-12.00) mmol/L BUN (9.0-27.0) mg/dL Creatinine (0.6-1.5) mg/dL Est GFR (CKD-EPI) (>=60) Calcium (8.7-10.3) mg/dL Microbiology - Last 24 Hours (Table) 11/23/23 06:30 Urine Culture - Final Urine,Clean Catch Pseudomonas aeruginosa Proteus mirabilis Assessment and Plan Plan: Assessment: 1. Acute kidney injury secondary to obstructive uropathy and infection. Creatinine near 1 in May 2023. Renal function slightly better with creatinine 3.9 today. Nonoliguric. No hydronephrosis noted on CT. 2. Proteus UTI on antibiotics. 3. Chronic systolic CHF ejection fraction of 30 to 35%, mild to moderate aortic stenosis/tricuspid regurgitation and moderate to severe aortic regurgitation noted on echocardiogram done in July 2023. 4. Metabolic acidosis secondary to acute kidney injury and IV fluids. Status post bicarb drip. Improved. Now on oral bicarb. 5. Urinary retention. Has Felder catheter. On Flomax. Seen by urology. No further interventions planned. Voiding trial prior to discharge. 6. Anemia. Avoid IV iron in the setting of acute infection. On Aranesp. Plan: Maintain half-normal saline. Continue to monitor renal function and urine output. Serologies negative except for mildly decreased C3 level. Urine eosinophils n egative. Maintain Felder catheter for now.
--- NOTE | 2023-11-28 12:37 | P.PN ---
Subjective Progress Note Date: 11/28/23 11/23/23 Samir is a 83-year-old male well-known to the practice. He reports 3-day history of incessant diarrhea with multiple episodes of stools. He has a long history of atrial fibrillation, congestive heart failure, chronic renal failure, and a previous history of urinary retention with Felder catheter. Felder catheter was discontinued about 6 months ago and he had been doing well urinating without it. At this time he says he is urinating. He denies any chest pains pressures or shortness of breath that is different than any other time. He reports his stools are normal in color. Vitals are stable laboratory studies show a hyponatremia., He is chronically anemic hemoglobin is 9, BUN and creatinine are 83 and 2.47 with a GFR of 23. He is in good spirits. November 24, 2023: Patient is reevaluated today. He is feeling better overnight though he did have some confusion. He apparently called 911 while in his hospital bed. He says he realized his mistake right away and it was just after he was waking up that he felt very strange. He is feeling back to normal at this time. He denies any chest pains pressures. Shortness of breath is chronic and stable. Vital signs show temp 97.7 pulse oximetry 97% on 3 L O2, blood pressure is controlled. Labs this morning showed his sodium is now 139. Kidney function still little off with a BUN of 80 and a creatinine of 2.96. GFR is down to 19. Staff report postvoid residuals were 290 after urinating. He indicates he is urinating freely and does not wish to deal with a catheter at this time. He also reports no diarrhea overnight. Nephrology is following. 11/25/2023 worsening renal function, bicarb 15, BUN 74, creatinine 3.72, GFR 14, continues on bicarb drip. Nephrology following. blood sugars controlled. Viral studies negative, C. difficile negative. Sensorium significantly improved, alert and oriented x 3; staff reports patient is impulsive. Complains of constipation, no bowel movement in 2 days. Denies chest pain, palpitations or shortness of breath. Maintaining O2 sats in the 90s on 3 L nasal cannula. Echo from 07/25 reporting EF of 30 to 35%. Chest x-ray reported COPD with right basilar infiltrate/consolidation, persistent prominence of the left hilum. Brain CT reported no acute intracranial process. 11/26/2023 sensorium significantly improved. Maintained on bicarb drip, bicarb increased to 17, BUN 72, creatinine 3.9. Urine culture reporting gram-negative bacilli, Proteus Mirabilis, maintained on cefepime. Felder catheter for urinary retention. Evaluated by urology, recommendations noted including expecting this patient to have a higher postvoid residual of less than 500 mL. Maintaining O2 sats in the high 90s on 3 L nasal cannula. Hemoglobin decreased to 7.2, platelets 130. Denies chest pain, palpitations. INR 2.3 , anticoagulated on Coumadin .Reports very small bowel movement, MiraLAX changed from as needed to daily. 11/27/2023 mild tachycardia, low 1 teens,Bisprolol initiated. Coumadin per pharmacy dosing, INR elevated 3.7 today. Felder catheter present secondary to urinary retention. renal function worsening, creatinine 4.1. Bicarb 21.5, bicarb drip discontinued. maintaining O2 sats in the high 90s on 3 L nasal cannula. Continues on cefepime. 11/28/2023 IV fluids adjusted yesterday to half-normal saline at 75 mL, renal function slowly improving, bicarb 21.8, BUN 72, creatinine 3.9, estimated GFR 15. Urine output improving;Felder catheter.hepatitis serology nonreactive. Patient's bisoprolol resumed yesterday, heart rate better controlled. Nebulized bronchodilators adjusted yesterday with clinical improvement, continue O2 sats in the high 90s on 3 L nasal cannula, respiratory rate better controlled. Continues on cefepime, afebrile, normal WBC. Patient did not receive Coumadin last night as INR was elevated 3.7; INR decreased to 3.4, denies chest pain, palpitations or increase in shortness of breath. Hemoglobin 7.4, platelets 106. Objective - Vital Signs Vital signs: Vital Signs Temp 98.1 F 11/28/23 07:00 Pulse 101 H 11/28/23 09:36 Resp 24 11/28/23 08:00 BP 106/61 11/28/23 07:00 Pulse Ox 98 11/28/23 09:28 FiO2 Intake & Output 11/27/23 11/28/23 11/28/23 18:59 06:59 18:59 Intake Total 120 Output Total 650 650 400 Balance -530 -650 -400 Intake: Oral 120 Output: Urine 650 650 400 Other: Voiding Method Indwelling Catheter Indwelling Catheter Indwelling Catheter # Voids 1 # Bowel Movements 0 - Exam General: Alert and oriented x 3, sitting up in bed, no acute distress. HEENT: Normocephalic PERRLA EOMI. Neck: Supple, no JVD Cardiac: Heart regular in rate and rhythm . No S3. No S4. No clicks, rubs. Positive systolic murmur consistent with his aortic valve replacement Lungs: Diminished breath sounds bilaterally with fine bibasilar expiratory expiratory wheezes and coarse rhonchi (close to baseline) Abdomen: Soft, nontender, no hepatosplenomegaly, no guarding, no rigidity, +BS. Extremes: [No edema no cyanosis no claudication normal pulses : indwelling Felder catheter Skin: [No rash, warm and dry Neurologic: Cranial nerves II through XII grossly intact. No focal deficits. Microbiology 11/23/23 06:30 Urine,Clean Catch Urine Culture - Final Pseudomonas aeruginosa Proteus mirabilis 11/23/23 06:30 Stool Stool Culture - Final - Labs CBC & Chem 7: 11/28/23 06:16 11/28/23 06:16 Labs: Abnormal Lab Results - Last 24 Hours (Table) 11/27/23 11/28/23 11/28/23 Range/Units 14:59 06:16 06:16 RBC 2.82 L (4.30-5.90) m/uL Hgb 8.6 L (13.0-17.5) gm/dL Hct 27.3 L (39.0-53.0) % MCV (80.0-97.0) FL MCHC (32.0-37.0) g/dL RDW 16.4 H (11.5-15.5) % Plt Count 131 L (150-450) k/uL PT 33.2 H (10.0-12.5) sec INR 3.4 H (<1.2) Anion Gap 12.20 H (4.00-12.00) mmol/L BUN 72.0 H (9.0-27.0) mg/dL Creatinine 3.9 H (0.6-1.5) mg/dL Est GFR (CKD-EPI) 15 L (>=60) Calcium 8.6 L (8.7-10.3) mg/dL 11/28/23 Range/Units 06:16 RBC 2.46 L (4.30-5.90) m/uL Hgb 7.4 L (13.0-17.5) gm/dL Hct 23.9 L (39.0-53.0) % MCV 97.2 H (80.0-97.0) FL MCHC 31.0 L (32.0-37.0) g/dL RDW 16.8 H (11.5-15.5) % Plt Count 106 L (150-450) k/uL PT (10.0-12.5) sec INR (<1.2) Anion Gap (4.00-12.00) mmol/L BUN (9.0-27.0) mg/dL Creatinine (0.6-1.5) mg/dL Est GFR (CKD-EPI) (>=60) Calcium (8.7-10.3) mg/dL Microbiology - Last 24 Hours (Table) 11/23/23 06:30 Urine Culture - Final Urine,Clean Catch Pseudomonas aeruginosa Proteus mirabilis Assessment and Plan Assessment: Acute UTI, Pseudomonas aeruginosa, Proteus Mirabilis, cystitis Diarrhea, resolved. Constipation Dehydration Acute on chronic renal failure stage IV, secondary to acute UTI, urinary retention, possibly cardiorenal syndrome. Urinary retention requiring Felder catheter placement. No hydronephrosis. Right basilar infiltrate,consolidation, persistent prominence of the left hilum, reported per chest x-ray. COPD Moderate to severe pulmonary hypertension Chronic hypoxic respiratory failure on home oxygen Chronic heart failure with reduced EF Anemia of chronic disease Persistent atrial fibrillation History of tissue mitral valve replacement, February 2015 at [facility] History of tricuspid valve repair, February 2015 at [facility] Nonischemic cardiomyopathy Hypertension Hyperlipidemia Peripheral vascular disease History of abdominal aortic aneurysm History of rheumatic fever Plan continue on current medication regimen ,monitoring and symptomatic treatment. Hemoglobin 8.6 yesterday at 1445 and by 0600 decreased to 7.4, stat repeat CBC ordered. IV fluids/maintain Felder catheter as per nephrology.IV antibiotics of cefepime. Continue aggressive pulmonary toileting, nebulized bronchodilators scheduled and as needed. close monitoring of renal function, hemoglobin and platelets with repeat labs ordered for a.m. Coumadin dosing as per pharmacy dosing.PT/OT. Patient is now requesting [facility] subacute rehab at discharge. The impression and plan of care has been dictated as directed. : I performed a history and examination of this patient, discussed the same with the dictator. I agree with the dictator's note ,documented as a scribe. Any additional findings or plans will be noted.
--- NOTE | 2023-11-28 13:48 | P.PN ---
Subjective Progress Note Date: 11/27/23 Principal diagnosis: Reason for follow-up is a urinary tract infection Patient is a 83-year-old male with a past medical history significant for hyperlipidemia COPD heart failure with atrial fibrillation BPH presenting to the hospital for evaluation of diarrhea also difficulty urination requiring Felder catheter placement did have a positive UA and urine has been finalized with drug-resistant Proteus prompting this consultation. On today's evaluation that is 11/27/2023,the patient remains to be afebrile, patient is on 3 L nasal cannula supplemental oxygen and denies any shortness of breath no chest pain or cough.Patient denies having any nausea or vomiting, no a bdominal pain and no diarrhea has been reported. Patient white count is 5.7 creatinine is 4.1 Objective - Vital Signs Vital signs: Vital Signs Temp 97.9 F 11/27/23 07:00 Pulse 115 H 11/27/23 13:31 Resp 26 H 11/27/23 13:31 BP 109/62 11/27/23 07:00 Pulse Ox 98 11/27/23 09:48 FiO2 Intake & Output 11/26/23 11/27/23 11/27/23 18:59 06:59 18:59 Intake Total 354 240 Output Total 275 200 200 Balance 79 40 -200 Weight 50.802 kg Intake: Oral 354 240 Output: Urine 275 200 200 Other: Voiding Method Indwelling Catheter Indwelling Catheter Indwelling Catheter # Voids 1 1 # Bowel Movements 0 0 0 - Exam GENERAL DESCRIPTION: An elderly male lying in bed in no distress RESPIRATORY SYSTEM: Unlabored breathing , decreased breath sounds at bases HEART: S1 S2 regular rate and rhythm , ABDOMEN: Soft , no tenderness EXTREMITIES: No edema feet - Labs CBC & Chem 7: 11/28/23 06:16 11/28/23 06:16 Labs: Abnormal Lab Results - Last 24 Hours (Table) 11/26/23 11/26/23 11/27/23 Range/Units 12:00 12:00 04:39 PT (10.0-12.5) sec INR (<1.2) Chloride 112 H (96-109) mmol/L Carbon Dioxide 21.5 L (21.6-31.8) mmol/L BUN 75.3 H (9.0-27.0) mg/dL Creatinine 4.1 H (0.6-1.5) mg/dL Est GFR (CKD-EPI) 14 L (>=60) Calcium 8.5 L (8.7-10.3) mg/dL Total Protein (PEP) 5.5 L (6.2-8.2) g/dL Complement C3 79.3 L (80.0-207.0) mg/dL 11/27/23 Range/Units 04:39 PT 36.1 H (10.0-12.5) sec INR 3.7 H (<1.2) Chloride (96-109) mmol/L Carbon Dioxide (21.6-31.8) mmol/L BUN (9.0-27.0) mg/dL Creatinine (0.6-1.5) mg/dL Est GFR (CKD-EPI) (>=60) Calcium (8.7-10.3) mg/dL Total Protein (PEP) (6.2-8.2) g/dL Complement C3 (80.0-207.0) mg/dL Microbiology - Last 24 Hours (Table) 11/23/23 06:30 Urine Culture - Final Urine,Clean Catch Pseudomonas aeruginosa Proteus mirabilis Assessment and Plan (1) Cystitis Current Visit: Yes Status: Acute Code(s): N30.90 - CYSTITIS, UNSPECIFIED WITHOUT HEMATURIA SNOMED Code(s): 49939451 (2) UTI (urinary tract infection) Current Visit: Yes Status: Acute Code(s): N39.0 - URINARY TRACT INFECTION, SITE NOT SPECIFIED SNOMED Code(s): 02531716 Plan: 1patient presented to hospital with diarrhea he also have some suprapubic discomfort did have a significantly positive UA concerning for symptomatic urinary tract infection likely from gram-negative pathogen with urine currently showing drug-resistant Proteus and Pseudomonas aeruginosa that is sensitive to cefepime 2-patient with renal insufficiency and high risk of nephrotoxicity 3-patient to continue with the cefepime will need IV cefepime on discharge as no oral option for Pseudomonas Dictation was produced using [employer] dictation software. please excuse any grammatical, word or spelling errors. Time with Patient: Less than 30
--- NOTE | 2023-11-28 13:49 | P.PN ---
Subjective Progress Note Date: 11/28/23 Principal diagnosis: Reason for follow-up is a urinary tract infection Patient is a 83-year-old male with a past medical history significant for hyperlipidemia COPD heart failure with atrial fibrillation BPH presenting to the hospital for evaluation of diarrhea also difficulty urination requiring Felder catheter placement did have a positive UA and urine has been finalized with drug-resistant Proteus prompting this consultation. On today's evaluation that is 11/28/2023, the patient continues to be afebrile, the patient is on 3 L nasal cannula oxygen and breathing comfortably, the Pt denies having any chest pain or cough, the patient denies having any abdominal pain no vomiting or any diarrhea has been reported by the nursing staff. Patient white count is 5.01, creatinine is 3.9 Objective - Vital Signs Vital signs: Vital Signs Temp 98.1 F 11/28/23 07:00 Pulse 96 11/28/23 12:53 Resp 24 11/28/23 08:00 BP 106/61 11/28/23 07:00 Pulse Ox 98 11/28/23 09:28 FiO2 Intake & Output 11/27/23 11/28/23 11/28/23 18:59 06:59 18:59 Intake Total 120 Output Total 650 650 400 Balance -530 -650 -400 Intake: Oral 120 Output: Urine 650 650 400 Other: Voiding Method Indwelling Catheter Indwelling Catheter Indwelling Catheter # Voids 1 # Bowel Movements 0 - Exam GENERAL DESCRIPTION: An elderly male lying in bed in no distress RESPIRATORY SYSTEM: Unlabored breathing , decreased breath sounds at bases HEART: S1 S2 regular rate and rhythm , ABDOMEN: Soft , no tenderness EXTREMITIES: No edema feet - Labs CBC & Chem 7: 11/28/23 06:16 11/28/23 06:16 Labs: Abnormal Lab Results - Last 24 Hours (Table) 11/27/23 11/28/23 11/28/23 Range/Units 14:59 06:16 06:16 RBC 2.82 L (4.30-5.90) m/uL Hgb 8.6 L (13.0-17.5) gm/dL Hct 27.3 L (39.0-53.0) % MCV (80.0-97.0) FL MCHC (32.0-37.0) g/dL RDW 16.4 H (11.5-15.5) % Plt Count 131 L (150-450) k/uL PT 33.2 H (10.0-12.5) sec INR 3.4 H (<1.2) Anion Gap 12.20 H (4.00-12.00) mmol/L BUN 72.0 H (9.0-27.0) mg/dL Creatinine 3.9 H (0.6-1.5) mg/dL Est GFR (CKD-EPI) 15 L (>=60) Calcium 8.6 L (8.7-10.3) mg/dL 11/28/23 Range/Units 06:16 RBC 2.46 L (4.30-5.90) m/uL Hgb 7.4 L (13.0-17.5) gm/dL Hct 23.9 L (39.0-53.0) % MCV 97.2 H (80.0-97.0) FL MCHC 31.0 L (32.0-37.0) g/dL RDW 16.8 H (11.5-15.5) % Plt Count 106 L (150-450) k/uL PT (10.0-12.5) sec INR (<1.2) Anion Gap (4.00-12.00) mmol/L BUN (9.0-27.0) mg/dL Creatinine (0.6-1.5) mg/dL Est GFR (CKD-EPI) (>=60) Calcium (8.7-10.3) mg/dL Microbiology - Last 24 Hours (Table) 11/23/23 06:30 Urine Culture - Final Urine,Clean Catch Pseudomonas aeruginosa Proteus mirabilis Assessment and Plan (1) Cystitis Current Visit: Yes Status: Acute Code(s): N30.90 - CYSTITIS, UNSPECIFIED WITHOUT HEMATURIA SNOMED Code(s): 13805224 (2) UTI (urinary tract infection) Current Visit: Yes Status: Acute Code(s): N39.0 - URINARY TRACT INFECTION, SITE NOT SPECIFIED SNOMED Code(s): 01606877 Plan: 1patient presented to hospital with diarrhea he also have some suprapubic discomfort did have a significantly positive UA concerning for symptomatic urinary tract infection likely from gram-negative pathogen with urine currently showing drug-resistant Proteus and Pseudomonas aeruginosa that is sensitive to cefepime 2-patient with renal insufficiency and high risk of nephrotoxicity 3-patient currently being treated with cefepime to cover for both the Proteus and Pseudomonas we will recommend midline and outpatient antibiotic on discharge Dictation was produced using [employer] dictation software. please excuse any grammatical, word or spelling errors. Time with Patient: Less than 30
[2023-11-28 14:26] LABS: Anisocytosis Slight; HCT 26.1 % (39.0-53.0); Hypochromasia Marked; MCH 29.7 pg (25.0-35.0); MCHC 30.7 g/dL (31.0-37.0); MCV 96.7 fL (80.0-100.0); Mean Platelet Volume 7.9; Platelet Count 119 k/uL (150-450); RDW 16.4 % (11.5-15.5); WBC 5.1 k/uL (3.8-10.6)
[2023-11-28 15:53] LABS: Gamma Globulin 0.68 g/dL (0.70-1.50)
[2023-11-28] MEDS: WARFARIN 0.5 MG TAB PO ONE (17:16)
[2023-11-29 07:07] LABS: INR 2.3 (<1.2); Prothrombin Time 22.5 sec (10.0-12.5)
--- NOTE | 2023-11-29 11:01 | P.DS ---
Providers Date of admission: 11/25/23 07:28 Expected date of discharge: 11/29/23 Attending physician: Sae Rodriguez Consults: 11/23/23 07:37 Consult Physician Routine Consulting Provider: Antonina Mcpherson Consult Reason/Comments: CANDACE Do you want consulting provider notified?: Yes, Notify in am 11/25/23 07:53 Consult Physician Routine Consulting Provider: Holden López Consult Reason/Comments: Retention Do you want consulting provider notified?: Yes 11/25/23 15:40 Consult Physician Routine Consulting Provider: Hardeep Yen Consult Reason/Comments: Acute UTI, negative bacilli, Proteus Mirabilis, acute renal failure Do you want consulting provider notified?: Yes Primary care physician: [facility] Course: Final diagnosis Acute UTI, Pseudomonas aeruginosa, Proteus Mirabilis, cystitis Diarrhea, resolved. Constipation Dehydration Acute on chronic renal failure stage IV, secondary to acute UTI, urinary retention, possibly cardiorenal syndrome. Urinary retention requiring Felder catheter placement. No hydronephrosis. Right basilar infiltrate,consolidation, persistent prominence of the left hilum, reported per chest x-ray. COPD Moderate to severe pulmonary hypertension Chronic hypoxic respiratory failure on home oxygen Chronic heart failure with reduced EF Anemia of chronic disease Persistent atrial fibrillation History of tissue mitral valve replacement, February 2015 at [facility] History of tricuspid valve repair, February 2015 at [facility] Nonischemic cardiomyopathy Hypertension Hyperlipidemia Peripheral vascular disease History of abdominal aortic aneurysm History of rheumatic fever Hospital course:11/23/23 Samir is a 83-year-old male well-known to the practice. He reports 3-day history of incessant diarrhea with multiple episodes of stools. He has a long history of atrial fibrillation, congestive heart failure, chronic renal failure, and a previous history of urinary retention with Felder catheter. Felder catheter was discontinued about 6 months ago and he had been doing well urinating without it. At this time he says he is urinating. He denies any chest pains pressures or shortness of breath that is different than a [place] other time. He reports his stools are normal in color. Vitals are stable laboratory studies show a hyponatremia., He is chronically anemic hemoglobin is 9, BUN and creatinine are 83 and 2.47 with a GFR of 23. He is in good spirits. November 24, 2023: Patient is reevaluated today. He is feeling better overnight though he did have some confusion. He apparently called 911 while in his hospital bed. He says he realized his mistake right away and it was just after he was waking up that he felt very strange. He is feeling back to normal at this time. He denies any chest pains pressures. Shortness of breath is chronic and stable. Vital signs show temp 97.7 pulse oximetry 97% on 3 L O2, blood pressure is controlled. Labs this morning showed his sodium is now 139. Kidney function still little off with a BUN of 80 and a creatinine of 2.96. GFR is down to 19. Staff report postvoid residuals were 290 after urinating. He indicates he is urinating freely and does not wish to deal with a catheter at this time. He also reports no diarrhea overnight. Nephrology is following. 11/25/2023 worsening renal function, bicarb 15, BUN 74, creatinine 3.72, GFR 14, continues on bicarb drip. Nephrology following. blood sugars controlled. Viral studies negative, C. difficile negative. Sensorium significantly improved, alert and oriented x 3; staff reports patient is impulsive. Complains of constipation, no bowel movement in 2 days. Denies chest pain, palpitations or shortness of breath. Maintaining O2 sats in the 90s on 3 L nasal cannula. Echo from 07/25 reporting EF of 30 to 35%. Chest x-ray reported COPD with right basilar infiltrate/consolidation, persistent prominence of the left hilum. Brain CT reported no acute intracranial process. 11/26/2023 sensorium significantly improved. Maintained on bicarb drip, bicarb increased to 17, BUN 72, creatinine 3.9. Urine culture reporting gram-negative bacilli, Proteus Mirabilis, maintained on cefepime. Felder catheter for urinary retention. Evaluated by urology, recommendations noted including expecting this patient to have a higher postvoid residual of less than 500 mL. Maintaining O2 sats in the high 90s on 3 L nasal cannula. Hemoglobin decreased to 7.2, platelets 130. Denies chest pain, palpitations. INR 2.3 , anticoagulated on Coumadin .Reports very small bowel movement, MiraLAX changed from as needed to daily. 11/27/2023 mild tachycardia, low 1 teens,Bisprolol initiated. Coumadin per pharmacy dosing, INR elevated 3.7 today. Felder catheter present secondary to urinary retention. renal function worsening, creatinine 4.1. Bicarb 21.5, bicarb drip discontinued. maintaining O2 sats in the high 90s on 3 L nasal cannula. Continues on cefepime. 11/28/2023 IV fluids adjusted yesterday to half-normal saline at 75 mL, renal function slowly improving, bicarb 21.8, BUN 72, creatinine 3.9, estimated GFR 15. Urine output improving;Felder catheter.hepatitis serology nonreactive. Patient's bisoprolol resumed yesterday, heart rate better controlled. Nebulized bronchodilators adjusted yesterday with clinical improvement, continue O2 sats in the high 90s on 3 L nasal cannula, respiratory rate better controlled. Continues on cefepime, afebrile, normal WBC. Patient did not receive Coumadin last night as INR was elevated 3.7; INR decreased to 3.4, denies chest pain, palpitations or increase in shortness of breath. Hemoglobin 7.4, platelets 106. Hemoglobin 8.6 yesterday at 1445 and by 0600 decreased to 7.4, stat repeat CBC ordered. IV fluids/maintain Felder catheter as per nephrology.IV antibiotics of cefepime. Continue aggressive pulmonary toileting, nebulized bronchodilators scheduled and as needed. close monitoring of renal function, hemoglobin and platelets with repeat labs ordered for a.m. Coumadin dosing as per pharmacy dosing.PT/OT. Patient is now requesting [facility] rehab at discharge. Entresto remains on hold. [facility] Today in a stable condition with guarded prognosis pending a.m. labs/renal function, final DC recommendations and clearance per nephrology, midline placement and IV DC antibiotics per infectious disease. The impression and plan of care has been dictated as directed. : I performed a history and examination of this patient, discussed the same with the dictator. I agree with the dictator's note ,documented as a scribe. Any additional findings or plans will be noted. Patient Condition at Discharge: Stable Plan - Discharge Summary Discharge Rx Participant: No New Discharge Prescriptions: New Ipratropium-Albuterol Nebulize [Duoneb 0.5 mg-3 mg/3 ml Soln] 3 ml INHALATION RT-QID each LORazepam [Ativan] 0.5 mg PO BID PRN 3 Days #6 tab PRN Reason: Anxiety Darbepoetin Ashish [Aranesp] 40 mcg SQ Q7D each Furosemide [Lasix] 20 mg PO DAILY tab Midodrine [ProAmatine] 5 mg PO AC-TID tab Acetaminophen Tab [Tylenol] 650 mg PO Q6HR PRN tab PRN Reason: Mild Pain Or Fever > 100.5 Ipratropium-Albuterol Nebulize [Duoneb 0.5 mg-3 mg/3 ml Soln] 3 ml INHALATION Q4H PRN each PRN Reason: Shortness Of Breath Or Wheezing Cefepime [Maxipime] 1 gm IVPB Q12H #20 each Mag Hydrox/Al Hydrox/Simeth [Maalox] 15 ml PO Q6HR PRN ml PRN Reason: Indigestion polyethylene glycoL 3350 [Miralax] 17 gm PO DAILY packet Famotidine [Pepcid] 20 mg PO DAILY tab Sodium Bicarbonate Tab 650 mg PO BID tab Calcium Carbonate [Tums] 1,000 mg PO Q4HR PRN tab PRN Reason: Dyspepsia Continue Fluticasone Propion/Salmeterol [Wixela 100-50 Inhub] 1 puff INHALATION RT-BID Sertraline [Zoloft] 50 mg PO HS Tamsulosin [Flomax] 0.4 mg PO DAILY Warfarin Sodium 4 mg PO MOWEFR@1999 Tiotropium 2.5 Mcg/Puff [Spiriva Respimat 2.5 Mcg] 2 puff INHALATION RT-DAILY Warfarin [Coumadin] 1 mg PO SUTUTHSA@2000 Bisoprolol [Zebeta] 5 mg PO DAILY Nitroglycerin Sl Tabs [Nitrostat] 0.4 mg SUBLINGUAL Q5M PRN tab PRN Reason: Chest Pain predniSONE 2.5 mg PO DAILY Ferrous Sulfate [Iron (65 MG Elemental)] 325 mg PO BID Ipratropium-Albuterol Nebulize [Duoneb 0.5 mg-3 mg/3 ml Soln] 3 ml INHALATION RT-QID PRN PRN Reason: Shortness Of Breath Discontinued Sacubitril/Valsartan [Entresto 49 mg-51 mg Tablet] 1 tab PO BID@0800,1600 Furosemide [Lasix] 40 mg PO DAILY LORazepam [Ativan] 0.5 mg PO BID PRN PRN Reason: Anxiety Discharge Medication List Fluticasone Propion/Salmeterol [Wixela 100-50 Inhub] 1 puff INHALATION RT-BID 05/05/22 [History] Sertraline [Zoloft] 50 mg PO HS 05/05/22 [History] Warfarin [Coumadin] 1 mg PO SUTUTHSA@199907/12/22 [History] Tamsulosin [Flomax] 0.4 mg PO DAILY 08/30/22 [History] Warfarin Sodium 4 mg PO MOWEFR@199908/30/22 [History] Bisoprolol [Zebeta] 5 mg PO DAILY 05/01/23 [History] Nitroglycerin Sl Tabs [Nitrostat] 0.4 mg SUBLINGUAL Q5M PRN tab 07/26/23 [Rx] Tiotropium 2.5 Mcg/Puff [Spiriva Respimat 2.5 Mcg] 2 puff INHALATION RT-DAILY 10/04/23 [History] Ferrous Sulfate [Iron (65 MG Elemental)] 325 mg PO BID 11/23/23 [History] Ipratropium-Albuterol Nebulize [Duoneb 0.5 mg-3 mg/3 ml Soln] 3 ml INHALATION RT-QID PRN 11/23/23 [History] predniSONE 2.5 mg PO DAILY 11/23/23 [History] Acetaminophen Tab [Tylenol] 650 mg PO Q6HR PRN tab 11/29/23 [Rx] Calcium Carbonate [Tums] 1,000 mg PO Q4HR PRN tab 11/29/23 [Rx] Cefepime [Maxipime] 1 gm IVPB Q12H #20 each 11/29/23 [Rx] Darbepoetin Ashish [Aranesp] 40 mcg SQ Q7D each 11/29/23 [Rx] Famotidine [Pepcid] 20 mg PO DAILY tab 11/29/23 [Rx] Furosemide [Lasix] 20 mg PO DAILY tab 11/29/23 [Rx] Ipratropium-Albuterol Nebulize [Duoneb 0.5 mg-3 mg/3 ml Soln] 3 ml INHALATION Q4H PRN each 11/29/23 [Rx] Ipratropium-Albuterol Nebulize [Duoneb 0.5 mg-3 mg/3 ml Soln] 3 ml INHALATION RT-QID each 11/29/23 [Rx] LORazepam [Ativan] 0.5 mg PO BID PRN 3 Days #6 tab 11/29/23 [Rx] Mag Hydrox/Al Hydrox/Simeth [Maalox] 15 ml PO Q6HR PRN ml 11/29/23 [Rx] Midodrine [ProAmatine] 5 mg PO AC-TID tab 11/29/23 [Rx] Sodium Bicarbonate Tab 650 mg PO BID tab 11/29/23 [Rx] polyethylene glycoL 3350 [Miralax] 17 gm PO DAILY packet 11/29/23 [Rx] Follow up Appointment(s)/Referral(s): Tan Bey Jr, [Primary Care Provider] - 3 Days Activity/Diet/Wound Care/Special Instructions: [facility] subacute rehab midline, IV antibiotics as per infectious disease Home meds Entresto on hold secondary to renal function and hypotension. Daily PT/INR, on Coumadin CBC, BMP in 2 days 3 L nasal cannula O2 Discharge Disposition: TRANSFER TO SNF/ECF
[2023-11-29 11:03] LABS: Basophils # (A) 0.02 X 10*3/uL (0.00-0.10); Basophils % (A) 0.4 %; Eosinophils # (A) 0.11 X 10*3/uL (0.04-0.35); HCT 25.7 % (39.6-50.0); HGB 7.7 g/dL (13.0-17.0); Lymphocytes % (A) 10.8 %; MCH 29.3 pg (27.0-32.0); MCV 97.7 FL (80.0-97.0); Mean Platelet Volume 10.4 FL (9.5-12.2); Monocytes % (A) 14.3 %; NRBC Per 100 WBC 0 X 10*3/uL (0.00-0.01); Neutrophils # (A) 4.04 X 10*3/uL (1.80-7.70); Neutrophils % (A) 72.3 %; Platelet Count 109 X 10*3/uL (140-440); RBC 2.63 X 10*6/uL (4.40-5.60); RDW 17.2 % (11.5-14.5); WBC 5.58 X 10*3/uL (4.50-10.00)
[2023-11-29 11:06] LABS: BUN/Creat Ratio 19.07 Ratio (12.00-20.00); Blood Urea Nitrogen 78.2 mg/dL (9.0-27.0); Calcium 8.9 mg/dL (8.7-10.3); Carbon Dioxide 22.5 mmol/L (21.6-31.8); Chloride 104 mmol/L (96-109); Glucose 99 mg/dL (70-110); Magnesium 2.2 mg/dL (1.5-2.4); Potassium 4.7 mmol/L (3.5-5.5); Sodium 140 mmol/L (135-145)
--- NOTE | 2023-11-29 11:35 | P.PN ---
Subjective Patient is seen in follow-up for acute kidney injury. Renal function stable. Has Felder catheter for urinary retention. Nonoliguric. Denies chest pain or shortness of breath. Confused. Vital signs are stable. General: No acute distress. HEENT: Head exam is unremarkable. On nasal cannula. LUNGS: No audible rhonchi or wheezes. HEART: Rate and Rhythm are regular. ABDOMEN: Nontender. EXTREMITITES: No edema. Objective - Vital Signs Vital signs: Vital Signs Temp 98.0 F 11/29/23 07:00 Pulse 90 11/29/23 08:08 Resp 20 11/29/23 08:00 BP 97/61 11/29/23 07:00 Pulse Ox 99 11/29/23 07:56 FiO2 Intake & Output 11/28/23 11/29/23 11/29/23 18:59 06:59 18:59 Output Total 400 Balance -400 Output: Urine 400 Other: Voiding Method Indwelling Catheter Indwelling Catheter Indwelling Catheter # Bowel Movements 0 - Labs CBC & Chem 7: 11/29/23 06:09 11/29/23 06:09 Labs: Abnormal Lab Results - Last 24 Hours (Table) 11/26/23 11/28/23 11/28/23 Range/Units 12:00 06:16 14:11 RBC 2.70 L (4.30-5.90) m/uL Hgb 8.0 L (13.0-17.5) gm/dL Hct 26.1 L (39.0-53.0) % MCV (80.0-97.0) FL MCHC 30.7 L (31.0-37.0) g/dL RDW 16.4 H (11.5-15.5) % Plt Count 119 L (150-450) k/uL Lymphocytes # (0.90-5.00) X 10*3/uL PT (10.0-12.5) sec INR (<1.2) Anion Gap 12.20 H (4.00-12.00) mmol/L BUN 72.0 H (9.0-27.0) mg/dL Creatinine 3.9 H (0.6-1.5) mg/dL Est GFR (CKD-EPI) 15 L (>=60) Calcium 8.6 L (8.7-10.3) mg/dL Albumin (PEP) 3.40 L (3.80-4.90) g/dL Utnqn-[id number] 0.58 L (0.60-1.00) g/dL Beta Globulins 0.56 L (0.60-1.30) g/dL Gamma Globulins 0.68 L (0.70-1.50) g/dL 11/29/23 11/29/23 11/29/23 Range/Units 06:09 06:09 06:09 RBC 2.63 L (4.30-5.90) m/uL Hgb 7.7 L (13.0-17.5) gm/dL Hct 25.7 L (39.0-53.0) % MCV 97.7 H (80.0-97.0) FL MCHC 30.0 L (31.0-37.0) g/dL RDW 17.2 H (11.5-15.5) % Plt Count 109 L (150-450) k/uL Lymphocytes # 0.60 L (0.90-5.00) X 10*3/uL PT 22.5 H (10.0-12.5) sec INR 2.3 H (<1.2) Anion Gap 13.50 H (4.00-12.00) mmol/L BUN 78.2 H (9.0-27.0) mg/dL Creatinine 4.1 H (0.6-1.5) mg/dL Est GFR (CKD-EPI) 14 L (>=60) Calcium (8.7-10.3) mg/dL Albumin (PEP) (3.80-4.90) g/dL Tthxm-9-Azfeuibzp (0.60-1.00) g/dL Beta Globulins (0.60-1.30) g/dL Gamma Globulins (0.70-1.50) g/dL Assessment and Plan Plan: Assessment: 1. Acute kidney injury secondary to obstructive uropathy and infection. Creatinine near 1 in May 2023. Renal function fairly stable. Nonoliguric. No hydronephrosis noted on CT. 2. Proteus UTI on antibiotics. 3. Chronic systolic CHF ejection fraction of 30 to 35%, mild to moderate aortic stenosis/tricuspid regurgitation and moderate to severe aortic regurgitation noted on echocardiogram done in July 2023. 4. Metabolic acidosis secondary to acute kidney injury and IV fluids. Status post bicarb drip. Improved. Now on oral bicarb. 5. Urinary retention. Has Felder catheter. On Flomax. Seen by urology. No further interventions planned. Felder management per urology. 6. Anemia. Avoid IV iron in the setting of acute infection. On Aranesp. Plan: Hep-Lock IV fluids. Add midodrine 5 mg 3 times daily. Hold for systolic blood pressure greater than 110. Encouraged oral intake. Continue to monitor renal function and urine output. Serologies negative except for mildly decreased C3 level. Urine eosinophils negative. With underlying CHF, add low-dose Lasix 20 mg once daily. Repeat BMP and magnesium level 2 to 3 days postdischarge. Follow-up outpatient in 1 week. Prognosis guarded.
--- NOTE | 2023-11-29 12:33 | P.PN ---
Subjective Progress Note Date: 11/29/23 11/23/23 Samir is a 83-year-old male well-known to the practice. He reports 3-day history of incessant diarrhea with multiple episodes of stools. He has a long history of atrial fibrillation, congestive heart failure, chronic renal failure, and a previous history of urinary retention with Felder catheter. Felder catheter was discontinued about 6 months ago and he had been doing well urinating without it. At this time he says he is urinating. He denies any chest pains pressures or shortness of breath that is different than any other time. He reports his stools are normal in color. Vitals are stable laboratory studies show a hyponatremia., He is chronically anemic hemoglobin is 9, BUN and creatinine are 83 and 2.47 with a GFR of 23. He is in good spirits. November 24, 2023: Patient is reevaluated today. He is feeling better overnight though he did have some confusion. He apparently called 911 while in his hospital bed. He says he realized his mistake right away and it was just after he was waking up that he felt very strange. He is feeling back to normal at this time. He denies any chest pains pressures. Shortness of breath is chronic and stable. Vital signs show temp 97.7 pulse oximetry 97% on 3 L O2, blood pressure is controlled. Labs this morning showed his sodium is now 139. Kidney function still little off with a BUN of 80 and a creatinine of 2.96. GFR is down to 19. Staff report postvoid residuals were 290 after urinating. He indicates he is urinating freely and does not wish to deal with a catheter at this time. He also reports no diarrhea overnight. Nephrology is following. 11/25/2023 worsening renal function, bicarb 15, BUN 74, creatinine 3.72, GFR 14, continues on bicarb drip. Nephrology following. blood sugars controlled. Viral studies negative, C. difficile negative. Sensorium significantly improved, alert and oriented x 3; staff reports patient is impulsive. Complains of constipation, no bowel movement in 2 days. Denies chest pain, palpitations or shortness of breath. Maintaining O2 sats in the 90s on 3 L nasal cannula. Echo from 07/25 reporting EF of 30 to 35%. Chest x-ray reported COPD with right basilar infiltrate/consolidation, persistent prominence of the left hilum. Brain CT reported no acute intracranial process. 11/26/2023 sensorium significantly improved. Maintained on bicarb drip, bicarb increased to 17, BUN 72, creatinine 3.9. Urine culture reporting gram-negative bacilli, Proteus Mirabilis, maintained on cefepime. Felder catheter for urinary retention. Evaluated by urology, recommendations noted including expecting this patient to have a higher postvoid residual of less than 500 mL. Maintaining O2 sats in the high 90s on 3 L nasal cannula. Hemoglobin decreased to 7.2, platelets 130. Denies chest pain, palpitations. INR 2.3 , anticoagulated on Coumadin .Reports very small bowel movement, MiraLAX changed from as needed to daily. 11/27/2023 mild tachycardia, low 1 teens,Bisprolol initiated. Coumadin per pharmacy dosing, INR elevated 3.7 today. Felder catheter present secondary to urinary retention. renal function worsening, creatinine 4.1. Bicarb 21.5, bicarb drip discontinued. maintaining O2 sats in the high 90s on 3 L nasal cannula. Continues on cefepime. 11/28/2023 IV fluids adjusted yesterday to half-normal saline at 75 mL, renal function slowly improving, bicarb 21.8, BUN 72, creatinine 3.9, estimated GFR 15. Urine output improving;Felder catheter.hepatitis serology nonreactive. Patient's bisoprolol resumed yesterday, heart rate better controlled. Nebulized bronchodilators adjusted yesterday with clinical improvement, continue O2 sats in the high 90s on 3 L nasal cannula, respiratory rate better controlled. Continues on cefepime, afebrile, normal WBC. Patient did not receive Coumadin last night as INR was elevated 3.7; INR decreased to 3.4, denies chest pain, palpitations or increase in shortness of breath. Hemoglobin 7.4, platelets 106. 11/29/2023 fluctuating mild confusion. Blood pressure soft, midodrine initiated. Afebrile, normal WBC, hemoglobin decreased to 7.7, platelets 109. No Coumadin last night, INR decreased to 2.3. Bicarb 22.5 BUN 38.2, creatinine increased to 4.1. Denies chest pain, palpitations. In the ingot passer hours patient complained of increased shortness of breath, O2 was increased up to 4 L, currently maintaining O2 sats of 99 on 5 L which has been decreased back down to 3 L nasal cannula O2, maintaining O2 sats in the high 90s. Positive bowel movement last night on MiraLAX. Objective - Vital Signs Vital signs: Vital Signs Temp 98.0 F 11/29/23 07:00 Pulse 90 11/29/23 08:08 Resp 20 11/29/23 08:00 BP 97/61 11/29/23 07:00 Pulse Ox 99 11/29/23 07:56 FiO2 Intake & Output 11/28/23 11/29/23 11/29/23 18:59 06:59 18:59 Output Total 400 Balance -400 Weight 50.802 kg Output: Urine 400 Other: Voiding Method Indwelling Catheter Indwelling Catheter Indwelling Catheter # Bowel Movements 0 - Exam General: Alert and oriented x 2-3, sitting up in bed, no acute distress. Intermittent confusion HEENT: Normocephalic PERRLA EOMI. Neck: Supple, no JVD Cardiac: Heart regular in rate and rhythm . No S3. No S4. No clicks, rubs. Positive systolic murmur consistent with his aortic valve replacement Lungs: Diminished breath sounds bilaterally with fine bibasilar expiratory expiratory wheezes and coarse rhonchi (close to baseline) Abdomen: Soft, nontender, no hepatosplenomegaly, no guarding, no rigidity, +BS. Extremes: [No edema no cyanosis no claudication normal pulses : indwelling Felder catheter Skin: [No rash, warm and dry Neurologic: Cranial nerves II through XII grossly intact. No focal deficits. - Labs CBC & Chem 7: 11/29/23 06:09 11/29/23 06:09 Labs: Abnormal Lab Results - Last 24 Hours (Table) 11/26/23 11/28/23 11/29/23 Range/Units 12:00 14:11 06:09 RBC 2.70 L (4.30-5.90) m/uL Hgb 8.0 L (13.0-17.5) gm/dL Hct 26.1 L (39.0-53.0) % MCV (80.0-97.0) FL MCHC 30.7 L (31.0-37.0) g/dL RDW 16.4 H (11.5-15.5) % Plt Count 119 L (150-450) k/uL Lymphocytes # (0.90-5.00) X 10*3/uL PT 22.5 H (10.0-12.5) sec INR 2.3 H (<1.2) Anion Gap (4.00-12.00) mmol/L BUN (9.0-27.0) mg/dL Creatinine (0.6-1.5) mg/dL Est GFR (CKD-EPI) (>=60) Albumin (PEP) 3.40 L (3.80-4.90) g/dL Abubr-2-Zjhfvxtet 0.58 L (0.60-1.00) g/dL Beta Globulins 0.56 L (0.60-1.30) g/dL Gamma Globulins 0.68 L (0.70-1.50) g/dL 11/29/23 11/29/23 Range/Units 06:09 06:09 RBC 2.63 L (4.30-5.90) m/uL Hgb 7.7 L (13.0-17.5) gm/dL Hct 25.7 L (39.0-53.0) % MCV 97.7 H (80.0-97.0) FL MCHC 30.0 L (31.0-37.0) g/dL RDW 17.2 H (11.5-15.5) % Plt Count 109 L (150-450) k/uL Lymphocytes # 0.60 L (0.90-5.00) X 10*3/uL PT (10.0-12.5) sec INR (<1.2) Anion Gap 13.50 H (4.00-12.00) mmol/L BUN 78.2 H (9.0-27.0) mg/dL Creatinine 4.1 H (0.6-1.5) mg/dL Est GFR (CKD-EPI) 14 L (>=60) Albumin (PEP) (3.80-4.90) g/dL Smgzy-5-Tplkqsdgx (0.60-1.00) g/dL Beta Globulins (0.60-1.30) g/dL Gamma Globulins (0.70-1.50) g/dL Assessment and Plan Assessment: Acute UTI, Pseudomonas aeruginosa, Proteus Mirabilis, cystitis Diarrhea, resolved. Constipation Dehydration Hypotension,on midodrine Acute on chronic renal failure stage IV, secondary to acute UTI, urinary retention, possibly cardiorenal syndrome. Metabolic acidosis secondary to the above, status post bicarb drip. On oral bicarb Acute metabolic encephalopathy secondary to infection, acute renal failure. Urinary retention requiring Felder catheter placement. No hydronephrosis. Right basilar infiltrate,consolidation, persistent prominence of the left hilum, reported per chest x-ray. COPD Moderate to severe pulmonary hypertension Chronic hypoxic respiratory failure on home oxygen Chronic heart failure with reduced EF Anemia of chronic disease Persistent atrial fibrillation History of tissue mitral valve replacement, February 2015 at [facility] tricuspid [facility] Nonischemic cardiomyopathy Hypertension Hyperlipidemia Peripheral vascular disease History of abdominal aortic aneurysm History of rheumatic fever Plan continue on current medication regimen ,monitoring and symptomatic treatment. IV fluids discontinued with low-dose oral Lasix 20 mg daily initiated per nephrology.IV antibiotics of cefepime. Midline catheter and DC IV antibiotics for discharge as per infectious disease. Maintain aggressive pulmonary toileting, nebulized bronchodilators scheduled and as needed. close monitoring of renal function, hemoglobin and platelets with repeat labs ordered for a.m. Coumadin dosing as per pharmacy dosing.PT/OT. Discharge planning in progress for tomorrow to subacute rehab., Back to [facility]-patient wants a private room. The impression and plan of care has been dictated as directed. : I performed a history and examination of this patient, discussed the same with the dictator. I agree with the dictator's note ,documented as a scribe. Any additional findings or plans will be noted.
[2023-11-29] MEDS: MIDODRINE 5 MG TAB PO SCH (14:23)
--- NOTE | 2023-11-29 14:51 | P.PN ---
Subjective Progress Note Date: 11/29/23 Principal diagnosis: Reason for follow-up is a urinary tract infection Patient is a 83-year-old male with a past medical history significant for hyperlipidemia COPD heart failure with atrial fibrillation BPH presenting to the hospital for evaluation of diarrhea also difficulty urination requiring Felder catheter placement did have a positive UA and urine has been finalized with drug-resistant Proteus prompting this consultation. On today's evaluation that is 11/29/2023, Patient is afebrile patient is currently on 3 L nasal cannula oxygen and denies having any shortness of breath, the patient denies any chest pain or cough, the patient denies any nausea vomiting did not have any abdominal pain and no diarrhea. Patient white count is 5.58, creatinine is 4.1 Objective - Vital Signs Vital signs: Vital Signs Temp 98.0 F 11/29/23 07:00 Pulse 90 11/29/23 08:08 Resp 20 11/29/23 08:00 BP 97/61 11/29/23 07:00 Pulse Ox 99 11/29/23 07:56 FiO2 Intake & Output 11/28/23 11/29/23 11/29/23 18:59 06:59 18:59 Output Total 400 Balance -400 Weight 50.802 kg Output: Urine 400 Other: Voiding Method Indwelling Catheter Indwelling Catheter Indwelling Catheter # Bowel Movements 0 - Exam GENERAL DESCRIPTION: An elderly male lying in bed in no distress RESPIRATORY SYSTEM: Unlabored breathing , decreased breath sounds at bases HEART: S1 S2 regular rate and rhythm , ABDOMEN: Soft , no tenderness EXTREMITIES: No edema feet - Labs CBC & Chem 7: 11/29/23 06:09 11/29/23 06:09 Labs: Abnormal Lab Results - Last 24 Hours (Table) 11/26/23 11/28/23 11/29/23 Range/Units 12:00 14:11 06:09 RBC 2.70 L (4.30-5.90) m/uL Hgb 8.0 L (13.0-17.5) gm/dL Hct 26.1 L (39.0-53.0) % MCV (80.0-97.0) FL MCHC 30.7 L (31.0-37.0) g/dL RDW 16.4 H (11.5-15.5) % Plt Count 119 L (150-450) k/uL Lymphocytes # (0.90-5.00) X 10*3/uL PT 22.5 H (10.0-12.5) sec INR 2.3 H (<1.2) Anion Gap (4.00-12.00) mmol/L BUN (9.0-27.0) mg/dL Creatinine (0.6-1.5) mg/dL Est GFR (CKD-EPI) (>=60) Albumin (PEP) 3.40 L (3.80-4.90) g/dL Heiml-8-Smwsfwkfu 0.58 L (0.60-1.00) g/dL Beta Globulins 0.56 L (0.60-1.30) g/dL Gamma Globulins 0.68 L (0.70-1.50) g/dL 11/29/23 11/29/23 Range/Units 06:09 06:09 RBC 2.63 L (4.30-5.90) m/uL Hgb 7.7 L (13.0-17.5) gm/dL Hct 25.7 L (39.0-53.0) % MCV 97.7 H (80.0-97.0) FL MCHC 30.0 L (31.0-37.0) g/dL RDW 17.2 H (11.5-15.5) % Plt Count 109 L (150-450) k/uL Lymphocytes # 0.60 L (0.90-5.00) X 10*3/uL PT (10.0-12.5) sec INR (<1.2) Anion Gap 13.50 H (4.00-12.00) mmol/L BUN 78.2 H (9.0-27.0) mg/dL Creatinine 4.1 H (0.6-1.5) mg/dL Est GFR (CKD-EPI) 14 L (>=60) Albumin (PEP) (3.80-4.90) g/dL Qauei-0-Ptxijaoou (0.60-1.00) g/dL Beta Globulins (0.60-1.30) g/dL Gamma Globulins (0.70-1.50) g/dL Assessment and Plan (1) Cystitis Current Visit: Yes Status: Acute Code(s): N30.90 - CYSTITIS, UNSPECIFIED WITHOUT HEMATURIA SNOMED Code(s): 56695185 (2) UTI (urinary tract infection) Current Visit: Yes Status: Acute Code(s): N39.0 - URINARY TRACT INFECTION, SITE NOT SPECIFIED SNOMED Code(s): 42562378 Plan: 1patient presented to hospital with diarrhea he also have some suprapubic discomfort did have a significantly positive UA concerning for symptomatic urinary tract infection likely from gram-negative pathogen with urine currently showing drug-resistant Proteus and Pseudomonas aeruginosa that is sensitive to cefepime 2-patient with renal insufficiency and high risk of nephrotoxicity 3-patient has shown some clinical improvement he did get a midline will consider a 10-day course of IV cefepime on discharge as preparations are underway for transfer to the skilled nursing Dictation was produced using [employer] dictation software. please excuse any grammatical, word or spelling errors. Time with Patient: Less than 30
[2023-11-29] MEDS: WARFARIN 2 MG TAB PO ONE (17:40)
[2023-11-30 06:01] LABS: INR 1.9 (<1.2); Prothrombin Time 19.1 sec (10.0-12.5)
[2023-11-30] MEDS: FUROSEMIDE 20 MG TAB PO SCH (09:24)
[2023-11-30 10:40] LABS: African American GFR (CKD) 13 (>60 ml/min/1.73 sqM); Anion Gap 11 mmol/L; Blood Urea Nitrogen 96 mg/dL (9-20); Carbon Dioxide 21 mmol/L (22-30); Chloride 108 mmol/L (98-107); Glucose 83 mg/dL (74-99); Magnesium 2.3 mg/dL (1.6-2.3); Non-African American GFR(CKD) 11 (>60 ml/min/1.73 sqM); Sodium 140 mmol/L (137-145)
--- NOTE | 2023-11-30 10:44 | P.PN ---
Subjective Progress Note Date: 11/30/23 Principal diagnosis: 3 days of diarrhea history of atrial fibrillation congestive heart failure and worsening renal failure known history of cardiorenal syndrome patient was to be transferred to [facility] the [place] [facility] when I evaluated patient and he was awake alert experiencing an episode of expressive aphasia appears to be new onset suspect CVA will get stat CT of brain without contrast at this time Objective - Vital Signs Vital signs: Vital Signs Temp 97.9 F 11/30/23 07:00 Pulse 92 11/30/23 08:58 Resp 15 11/30/23 07:00 BP 115/68 11/30/23 07:00 Pulse Ox 98 11/30/23 08:44 FiO2 Intake & Output 11/29/23 11/30/23 11/30/23 18:59 06:59 18:59 Intake Total 100 120 Output Total 300 250 Balance -200 -130 Weight 50.802 kg Intake: Oral 100 120 Output: Urine 300 250 Other: Voiding Method Indwelling Catheter Indwelling Catheter # Bowel Movements 1 0 - Exam General: [Patient awake, alert facet of expressive aphasia. and is cachectic able to follow basic commands HEENT: [PERRL. EOMI. No pharyngeal erythema or exudate.] Neck: [No adenopathy.] Cardiac: [Heart Sandra a regular, with grade 4 systolic ejection murmur Lungs: [Clear to auscultation bilaterally.however diminished bilaterally Abdomen: [No mass. No organomegaly. Bowel sounds presnt and normoactive in all 4 quadrants.] Extremes: [No edema no cyanosis no claudication normal pulses] : normal male genitalia Musculoskeletal: [No joint erythema, edema or tenderness.] Skin: [No rash.] Neurologic: [No lateralizing deficits. CN II - XII grossly intact.] Lymphatic: [No adenopathy.] - Labs CBC & Chem 7: 11/29/23 06:09 11/29/23 06:09 Labs: Abnormal Lab Results - Last 24 Hours (Table) 11/29/23 11/29/23 11/30/23 Range/Units 06:09 06:09 05:10 RBC 2.63 L (4.40-5.60) X 10*6/uL Hgb 7.7 L (13.0-17.0) g/dL Hct 25.7 L (39.6-50.0) % MCV 97.7 H (80.0-97.0) FL MCHC 30.0 L (32.0-37.0) g/dL RDW 17.2 H (11.5-14.5) % Plt Count 109 L (140-440) X 10*3/uL Lymphocytes # 0.60 L (0.90-5.00) X 10*3/uL PT 19.1 H (10.0-12.5) sec INR 1.9 H (<1.2) Anion Gap 13.50 H (4.00-12.00) mmol/L BUN 78.2 H (9.0-27.0) mg/dL Creatinine 4.1 H (0.6-1.5) mg/dL Est GFR (CKD-EPI) 14 L (>=60)
--- NOTE | 2023-11-30 11:10 | CT ---
EXAMINATION TYPE: CT brain wo con DATE OF EXAM: 11/30/2023 COMPARISON: 11/24/2023 HISTORY: AMS. CT DLP: [id number] mGycm Automated exposure control for dose reduction was used. FINDINGS: The ventricles, basal cisterns and sulci over convexities are mildly enlarged consistent with mild at rophy appropriate for the patient's age. There is a tiny remote linear infarct in the left basal gang david. There is no mass effect or shift of midline structures. There is no acute intra or extra-axial hemorrhage. The posterior fossa is grossly normal. Intraorbital contents appear normal and symmetric. Visualized paranasal sinuses and mastoid air cells are well aerated. IMPRESSION: 1. MILD AGE-APPROPRIATE ATROPHY. 2. NO ACUTE INTRA OR EXTRA-AXIAL HEMORRHAGE. 3. NO MASS EFFECT OR SHIFT OF THE MIDLINE STRUCTURES. 4. TINY REMOTE LACUNAR INFARCT IN LEFT BASAL GANGLIA [facility], , 11/30/2023 11:07 AM
--- NOTE | 2023-11-30 11:24 | P.PN ---
Subjective Patient is seen in follow-up for acute kidney injury. Renal function worse with creatinine 4.59 today. Has Felder catheter for urinary retention. Nonoliguric. Mentation worse today. Brain CT negative. Neurology consulted. Vital signs are stable. General: No acute distress. HEENT: Head exam is unremarkable. On nasal cannula. LUNGS: No audible rhonchi or wheezes. HEART: Rate and Rhythm are regular. ABDOMEN: Nontender. EXTREMITITES: No edema. Objective - Vital Signs Vital signs: Vital Signs Temp 97.9 F 11/30/23 07:00 Pulse 92 11/30/23 08:58 Resp 18 11/30/23 08:00 BP 115/68 11/30/23 07:00 Pulse Ox 98 11/30/23 08:44 FiO2 Intake & Output 11/29/23 11/30/23 11/30/23 18:59 06:59 18:59 Intake Total 100 120 Output Total 300 250 Balance -200 -130 Weight 50.802 kg Intake: Oral 100 120 Output: Urine 300 250 Other: Voiding Method Indwelling Catheter Indwelling Catheter # Bowel Movements 1 0 - Labs CBC & Chem 7: 11/29/23 06:09 11/30/23 10:04 Labs: Abnormal Lab Results - Last 24 Hours (Table) 11/30/23 11/30/23 Range/Units 05:10 10:04 PT 19.1 H (10.0-12.5) sec INR 1.9 H (<1.2) Chloride 108 H (98-107) mmol/L Carbon Dioxide 21 L (22-30) mmol/L BUN 96 H (9-20) mg/dL Creatinine 4.59 H (0.66-1.25) mg/dL Assessment and Plan Plan: Assessment: 1. Acute kidney injury secondary to obstructive uropathy and infection. Creati nine near 1 in May 2023. Renal function worse with creatinine 4.59 today. Nonoliguric. No hydronephrosis noted on CT. 2. Proteus UTI on antibiotics. 3. Chronic systolic CHF ejection fraction of 30 to 35%, mild to moderate aortic stenosis/tricuspid regurgitation and moderate to severe aortic regurgitation noted on echocardiogram done in July 2023. 4. Metabolic acidosis secondary to acute kidney injury and IV fluids. Status post bicarb drip. Improved. Now on oral bicarb. 5. Urinary retention. Has Felder catheter. On Flomax. Seen by urology. No further interventions planned. Felder management per urology. 6. Anemia. Avoid IV iron in the setting of acute infection. On Aranesp. Plan: Maintain midodrine 5 mg 3 times daily. Hold for systolic blood pressure greater than 110. Encouraged oral intake. Continue to monitor renal function and urine output. Serologies negative except for mildly decreased C3 level. Urine eosinophils negative. Lasix not given today as patient unable to take oral medications. Resume IV fluids. Repeat chest x-ray. Initiate renal replacement therapy due to worsening renal function and concern for uremia if family agreeable. Discharge being held.
[2023-11-30 12:27] LABS: Anisocytosis Slight; Basophils % (A) 1 %; Eosinophils # (A) 0.1 k/uL (0-0.7); Eosinophils % (A) 2 %; HGB 8.3 gm/dL (13.0-17.5); Hypochromasia Marked; Lymphocytes # (A) 0.8 k/uL (1.0-4.8); Lymphocytes % (A) 11 %; MCH 29.2 pg (25.0-35.0); MCHC 29.7 g/dL (31.0-37.0); MCV 98.4 fL (80.0-100.0); Macrocytosis Slight; Mean Platelet Volume 8.9; Monocytes # (A) 0.6 k/uL (0-1.0); Monocytes % (A) 9 %; Neutrophils # (A) 5.1 k/uL (1.3-7.7); Neutrophils % (A) 74 %; Platelet Count 144 k/uL (150-450); RBC 2.85 m/uL (4.30-5.90); RDW 16.9 % (11.5-15.5); WBC 6.9 k/uL (3.8-10.6)
--- NOTE | 2023-11-30 12:53 | P.CNNES ---
History of Present Illness Consult date: 11/30/23 Requesting physician: Tan Bey Jr Reason for Consult: expressive aphasia new onset History of Present Illness: This is an 83 year-old gentleman with history of UTI, CKI, [employer], hypertension who present to the emergency department because of acute UTI. Neurology is consulted for expressive aphasia. History is obtain from patient's niece who is at bedside and his nurse. Per his niece, yesterday he had episode of his not as verbal, was confused and they felt he had left side weakness that started at 4pm. Per the nurse he was not verbalizing with nursing staff overnight and unknown last normal. It seems patient has worsening of his chronic kidney insufficiency and has acute UTI, pseudomonas aeruginosa, proteus mirabilis. He does have history of atrial fibrillation and is on coumadin. Some of the work-up consisted of: His creatnine today is 4.59 and baseline is below 2. I reviewed labs. +ve acute UTI. Urine culture is pseudomonas aeruginosa, proteus mirabilis CT head today reported as mild age-appropriate atrophy. No acute intra or extral axial hemorrhage. No mass effect or shift of midline structure. Tiny remote lacunar infarct in left basal ganglia. I personally reviewed CT and agree there is no acute or subacute ischemic stroke. Review of Systems Limited. Past Medical History Past Medical History: Atrial Fibrillation, Heart Failure, COPD, GI Bleed, Hyperlipidemia, Pneumonia, Renal Disease, Skin Disorder, Vascular Disorder Additional Past Medical History / Comment(s): GI bleed, gastritis, gastric ectasia, CKD stage III, past abdominal aortic aneurysm/had stent placed, varicosities, PVD, past shingellis and occasionally will have R flank nerve pain, BPH. Covid 09/2022 History of Any Multi-Drug Resistant Organisms: MRSA Date of last positivie culture/infection: 03/19/22 MDRO Source:: Urine Past Surgical History: Cardiac Valve Replacement, Cholecystectomy, Heart Catheterization Additional Past Surgical History / Comment(s): Stent placed for lower abd aortic aneurysym, mitral valve replacement/bicuspid repair, EGD with ablation, colonoscopy, excision L cheek lesion/mass and lesion from scalp/all benign, ZEPHER VALVE PLACED 2 YRS AGO AT [facility] Past Anesthesia/Blood Transfusion Reactions: No Reported Reaction Date of Last Stent Placement:: 2015 Past Psychological History: Anxiety Smoking Status: Former smoker Past Alcohol Use History: Occasional Past Drug Use History: None Reported - Past Family History Mother Family Medical History: Myocardial Infarction ([place]) Additional Family Medical History / Comment(s): at a young age. Father Family Medical History: Hypertension Medications and Allergies Home Medications Medication Instructions Recorded Confirmed Type Fluticasone Propion/Salmeterol 1 puff INHALATION RT-BID 05/05/22 11/23/23 History [Wixela 100-50 Inhub] Sertraline [Zoloft] 50 mg PO HS 05/05/22 11/23/23 History Warfarin [Coumadin] 1 mg PO SUTUTHSA@199907/12/22 11/23/23 History Tamsulosin [Flomax] 0.4 mg PO DAILY 08/30/22 11/23/23 History Warfarin Sodium 4 mg PO MOWEFR@199908/30/22 11/23/23 History Bisoprolol [Zebeta] 5 mg PO DAILY 05/01/23 11/23/23 History Nitroglycerin Sl Tabs [Nitrostat] 0.4 mg SUBLINGUAL Q5M PRN tab 07/26/23 11/23/23 Rx Tiotropium 2.5 Mcg/Puff [Spiriva 2 puff INHALATION RT-DAILY 10/04/23 11/23/23 History Respimat 2.5 Mcg] Ferrous Sulfate [Iron (65 MG 325 mg PO BID 11/23/23 11/23/23 History Elemental)] Ipratropium-Albuterol Nebulize 3 ml INHALATION RT-QID PRN 11/23/23 11/23/23 History [Duoneb 0.5 mg-3 mg/3 ml Soln] predniSONE 2.5 mg PO DAILY 11/23/23 11/23/23 History Acetaminophen Tab [Tylenol] 650 mg PO Q6HR PRN tab 11/29/23 Rx Calcium Carbonate [Tums] 1,000 mg PO Q4HR PRN tab 11/29/23 Rx Cefepime [Maxipime] 1 gm IVPB Q12H #20 each 11/29/23 Rx Darbepoetin Ashish [Aranesp] 40 mcg SQ Q7D each 11/29/23 Rx Famotidine [Pepcid] 20 mg PO DAILY tab 11/29/23 Rx Furosemide [Lasix] 20 mg PO DAILY tab 11/29/23 Rx Ipratropium-Albuterol Nebulize 3 ml INHALATION Q4H PRN each 11/29/23 Rx [Duoneb 0.5 mg-3 mg/3 ml Soln] Ipratropium-Albuterol Nebulize 3 ml INHALATION RT-QID each 11/29/23 Rx [Duoneb 0.5 mg-3 mg/3 ml Soln] LORazepam [Ativan] 0.5 mg PO BID PRN 3 Days #6 tab 11/29/23 Rx Mag Hydrox/Al Hydrox/Simeth 15 ml PO Q6HR PRN ml 11/29/23 Rx [Maalox] Midodrine [ProAmatine] 5 mg PO AC-TID tab 11/29/23 Rx Sodium Bicarbonate Tab 650 mg PO BID tab 11/29/23 Rx polyethylene glycoL 3350 [Miralax] 17 gm PO DAILY packet 11/29/23 Rx Allergies Allergy/AdvReac Type Severity Reaction Status Date / Time empagliflozin Allergy Dyspnea Verified 11/23/23 09:10 [From Jardiance] iodine AdvReac Unknown Verified 11/23/23 09:10 morphine AdvReac Hallucinati Verified 11/23/23 09:10 ons Patches on chest Allergy Swelling, Uncoded 10/04/23 14:02 See Comment pain med (can't remember AdvReac Hallucinati Uncoded 10/04/23 14:02 name) ons Physical Examination - Vital Signs Vital Signs: Vital Signs Temp Pulse Pulse Resp BP Pulse Ox 11/30/23 12:19 90 11/30/23 12:10 88 11/30/23 08:58 92 11/30/23 08:44 92 98 11/30/23 08:00 18 11/30/23 07:00 97.9 F 90 15 115/68 99 11/30/23 05:55 104/60 11/30/23 01:34 98.6 F 100 22 114/69 98 11/29/23 20:17 96 11/29/23 20:00 98.4 F 91 20 102/63 100 11/29/23 19:59 92 11/29/23 15:59 93 11/29/23 15:50 91 11/29/23 14:16 98.0 F 94 20 117/61 99 11/29/23 14:00 94 20 Intake and Output 11/29/23 11/30/23 11/30/23 22:59 06:59 14:59 Intake Total 120 Output Total 300 250 Balance -300 -130 Intake: Oral 120 Output: Urine 300 250 Other: Voiding Method Indwelling Catheter Indwelling Catheter # Bowel Movements 0 General: Does not appear in acute distress. Neuro: Very limited. Patient would say "Good" or "what" but otherwise he would refuse to be examined or yell. At time he would open his eyes and has good eye contact and other time when attempt to examine eyes he would force his eyes closed I do not appreciate facial weakness. No dysathria from limited examination. Motor: Unable to assess and with painful stimuli he would eyes and say "what". Normal bulk and tone. Rest is unable. Plantars: Mute bilaterally. Results - Laboratory Findings CBC and BMP: 11/30/23 10:04 11/30/23 10:04 Abnormal Lab Findings: Abnormal Labs 11/23/23 11/23/23 11/23/23 05:20 05:20 06:30 WBC RBC 3.11 L Hgb 9.0 L Hct 29.9 L MCV MCHC 30.0 L RDW Plt Count Lymphocytes # 0.6 L PT INR Sodium 125 L Chloride 110 H Carbon Dioxide 19 L Anion Gap BUN 83 H Creatinine 2.47 H Est GFR (CKD-EPI) BUN/Creatinine Ratio Glucose Calcium Magnesium Total Bilirubin AST 16 L ALT Total Protein 5.9 L Total Protein (PEP) Albumin Albumin (PEP) Utxcn-9-Cisxykbee Beta Globulins Gamma Globulins Urine Protein 1+ H Urine Blood Moderate H Ur Leukocyte Esterase Large H Urine RBC 126 H Urine WBC >182 H Urine WBC Clumps Many H Urine Bacteria Moderate H Urine Mucus Rare H Complement C3 11/23/23 11/23/23 11/24/23 10:39 18:35 03:16 WBC RBC 2.96 L Hgb 8.5 L Hct 28.2 L MCV MCHC 30.1 L RDW 15.3 H Plt Count Lymphocytes # 0.58 L PT 24.5 H INR 2.5 H Sodium Chloride 113 H Carbon Dioxide 19 L Anion Gap BUN 80 H Creatinine 2.96 H Est GFR (CKD-EPI) BUN/Creatinine Ratio Glucose 105 H Calcium Magnesium Total Bilirubin AST ALT Total Protein Total Protein (PEP) Albumin Albumin (PEP) Yksdf-6-Sztkatjdm Beta Globulins Gamma Globulins Urine Protein Urine Blood Ur Leukocyte Esterase Urine RBC Urine WBC Urine WBC Clumps Urine Bacteria Urine Mucus Complement C3 11/24/23 11/24/23 11/24/23 03:16 03:16 14:21 WBC RBC Hgb Hct MCV MCHC RDW Plt Count Lymphocytes # PT 22.4 H INR 2.18 H Sodium Chloride 111 H 108 H Carbon Dioxide 18.5 L 16 L Anion Gap BUN 78.9 H 75 H Creatinine 3.1 H 3.36 H Est GFR (CKD-EPI) 19 L BUN/Creatinine Ratio 25.45 H Glucose Calcium 8.2 L Magnesium 2.5 H 2.5 H Total Bilirubin <0.2 L AST 11 L ALT 7 L Total Protein 5.6 L Total Protein (PEP) Albumin 3.7 L Albumin (PEP) Xfwwc-4-Azebungrm Beta Globulins Gamma Globulins Urine Protein Urine Blood Ur Leukocyte Esterase Urine RBC Urine WBC Urine WBC Clumps Urine Bacteria Urine Mucus Complement C3 11/25/23 11/25/23 11/25/23 02:49 02:49 02:49 WBC RBC 2.70 L Hgb 8.0 L Hct 26.4 L MCV 97.8 H MCHC 30.3 L RDW 15.7 H Plt Count Lymphocytes # 0.56 L PT 20.0 H INR 2.0 H Sodium Chloride 112 H Carbon Dioxide 17.3 L Anion Gap BUN 78.5 H Creatinine 3.6 H Est GFR (CKD-EPI) 16 L BUN/Creatinine Ratio 21.81 H Glucose 113 H Calcium 8.2 L Magnesium Total Bilirubin <0.2 L AST 11 L ALT 9 L Total Protein 5.4 L Total Protein (PEP) Albumin 3.5 L Albumin (PEP) Xpuje-2-Bqqbmorxp Beta Globulins Gamma Globulins Urine Protein Urine Blood Ur Leukocyte Esterase Urine RBC Urine WBC Urine WBC Clumps Urine Bacteria Urine Mucus Complement C3 11/25/23 11/26/23 11/26/23 09:39 02:57 02:57 WBC RBC Hgb Hct MCV MCHC RDW Plt Count Lymphocytes # PT 22.8 H INR 2.3 H Sodium Chloride 119 H 115 H Carbon Dioxide 15 L 17.1 L Anion Gap BUN 74 H 72.0 H Creatinine 3.72 H 3.9 H Est GFR (CKD-EPI) 15 L BUN/Creatinine Ratio Glucose 124 H 130 H Calcium 8.2 L Magnesium 2.4 H Total Bilirubin AST ALT Total Protein Total Protein (PEP) Albumin Albumin (PEP) Ldvst-9-Gdtgykrme Beta Globulins Gamma Globulins Urine Protein Urine Blood Ur Leukocyte Esterase Urine RBC Urine WBC Urine WBC Clumps Urine Bacteria Urine Mucus Complement C3 11/26/23 11/26/23 11/26/23 02:57 12:00 12:00 WBC 4.46 L RBC 2.47 L Hgb 7.2 L Hct 23.6 L MCV MCHC 30.5 L RDW 15.9 H Plt Count 130 L Lymphocytes # 0.43 L PT INR Sodium Chloride Carbon Dioxide Anion Gap BUN Creatinine Est GFR (CKD-EPI) BUN/Creatinine Ratio Glucose Calcium Magnesium Total Bilirubin AST ALT Total Protein Total Protein (PEP) 5.5 L Albumin Albumin (PEP) 3.40 L Brpbc-1-Nifmtalwj 0.58 L Beta Globulins 0.56 L Gamma Globulins 0.68 L Urine Protein Urine Blood Ur Leukocyte Esterase Urine RBC Urine WBC Urine WBC Clumps Urine Bacteria Urine Mucus Complement C3 79.3 L 11/26/23 11/27/23 11/27/23 14:40 04:39 04:39 WBC RBC Hgb Hct MCV MCHC RDW Plt Count Lymphocytes # PT 36.1 H INR 3.7 H Sodium Chloride 112 H Carbon Dioxide 21.5 L Anion Gap BUN 75.3 H Creatinine 4.1 H Est GFR (CKD-EPI) 14 L BUN/Creatinine Ratio Glucose Calcium 8.5 L Magnesium Total Bilirubin AST ALT Total Protein Total Protein (PEP) Albumin Albumin (PEP) Aokpp-0-Htyjaedix Beta Globulins Gamma Globulins Urine Protein 2+ H Urine Blood Moderate H Ur Leukocyte Esterase Large H Urine RBC 38 H Urine WBC >182 H Urine WBC Clumps Many H Urine Bacteria Urine Mucus Rare H Complement C3 11/27/23 11/28/23 11/28/23 14:59 06:16 06:16 WBC RBC 2.82 L Hgb 8.6 L Hct 27.3 L MCV MCHC RDW 16.4 H Plt Count 131 L Lymphocytes # PT 33.2 H INR 3.4 H Sodium Chloride Carbon Dioxide Anion Gap 12.20 H BUN 72.0 H Creatinine 3.9 H Est GFR (CKD-EPI) 15 L BUN/Creatinine Ratio Glucose Calcium 8.6 L Magnesium Total Bilirubin AST ALT Total Protein Total Protein (PEP) Albumin Albumin (PEP) Oxjde-1-Urknvqhjh Beta Globulins Gamma Globulins Urine Protein Urine Blood Ur Leukocyte Esterase Urine RBC Urine WBC Urine WBC Clumps Urine Bacteria Urine Mucus Complement C3 11/28/23 11/28/23 11/29/23 06:16 14:11 06:09 WBC RBC 2.46 L 2.70 L Hgb 7.4 L 8.0 L Hct 23.9 L 26.1 L MCV 97.2 H MCHC 31.0 L 30.7 L RDW 16.8 H 16.4 H Plt Count 106 L 119 L Lymphocytes # PT 22.5 H INR 2.3 H Sodium Chloride Carbon Dioxide Anion Gap BUN Creatinine Est GFR (CKD-EPI) BUN/Creatinine Ratio Glucose Calcium Magnesium Total Bilirubin AST ALT Total Protein Total Protein (PEP) Albumin Albumin (PEP) Yhrlr-1-Idihsumkx Beta Globulins Gamma Globulins Urine Protein Urine Blood Ur Leukocyte Esterase Urine RBC Urine WBC Urine WBC Clumps Urine Bacteria Urine Mucus Complement C3 11/29/23 11/29/23 11/30/23 06:09 06:09 05:10 WBC RBC 2.63 L Hgb 7.7 L Hct 25.7 L MCV 97.7 H MCHC 30.0 L RDW 17.2 H Plt Count 109 L Lymphocytes # 0.60 L PT 19.1 H INR 1.9 H Sodium Chloride Carbon Dioxide Anion Gap 13.50 H BUN 78.2 H Creatinine 4.1 H Est GFR (CKD-EPI) 14 L BUN/Creatinine Ratio Glucose Calcium Magnesium Total Bilirubin AST ALT Total Protein Total Protein (PEP) Albumin Albumin (PEP) Kwkjo-2-Ofctmlqmz Beta Globulins Gamma Globulins Urine Protein Urine Blood Ur Leukocyte Esterase Urine RBC Urine WBC Urine WBC Clumps Urine Bacteria Urine Mucus Complement C3 11/30/23 11/30/23 10:04 10:04 WBC RBC 2.85 L Hgb 8.3 L Hct 28.0 L MCV MCHC 29.7 L RDW 16.9 H Plt Count 144 L Lymphocytes # 0.8 L PT INR Sodium Chloride 108 H Carbon Dioxide 21 L Anion Gap BUN 96 H Creatinine 4.59 H Est GFR (CKD-EPI) BUN/Creatinine Ratio Glucose Calcium Magnesium Total Bilirubin AST ALT Total Protein Total Protein (PEP) Albumin Albumin (PEP) Qnxav-4-Mxcakbohm Beta Globulins Gamma Globulins Urine Protein Urine Blood Ur Leukocyte Esterase Urine RBC Urine WBC Urine WBC Clumps Urine Bacteria Urine Mucus Complement C3 Assessment and Plan Assessment: This is an 83 year-old gentleman who presents to the ED because of acute UTI who is also having worsening of acute on chronic UTI who yesterday family felt he was confused, felt he had left sided weakness and facial weakness yesterday at 4pm. On my examination I could not appreciate any focality and feel he is gen eralized weakness and did not appreciate left facial weakness. Altered mental status with reported left sided weakness by family members yesterday at 4pm: Rule out acute ischemic stroke. As stated above he has generalized weakness and confusion and feel probable due to toxic-metabolic encephalopathy due to worsening of kidney function and acute UTI and medication effect (Cephalosporin) Acute on chronic kidney insuffiency Acute UTI (urine culture pseudomonas aeruginosa, proteus mirabilis). Atrial fibrillation on coumadin Plan: I ordered CTA head and neck if possible with post dialysis afterwards. In the mean time ordered carotid duplex. Ordered 2D echo, lipid panel, TSH, vitamin B12, folate, ammonia level. Ordered MRI Brain. If continues to be confused will pursue with routine EEG. Patient is on Warfarin. Nephrology is on board. I.D. is on board. Recommend switching his Cefepime medication to a different. Will defer the rest of medical management to primary and other specialist. The plan is discussed with his nurse. Thank you for the consultation. Time with Patient: Greater than 30
--- NOTE | 2023-11-30 13:02 | US ---
EXAMINATION TYPE: US carotid duplex BILAT DATE OF EXAM: 11/30/2023 COMPARISON: CT brain CLINICAL INDICATION: Male, 83 years old with history of Stroke like symptoms; TECHNIQUE: Carotid duplex ultrasound examination. Indirect Doppler criteria was utilized. FINDINGS: EXAM MEASUREMENTS: RIGHT: Peak Systolic Velocity (PSV) cm/sec ----- Right CCA: 96.7 ----- Right ICA: 89.9 ----- Right ECA: 91.0 ICA/CCA ratio: 0.93 RIGHT: End Diastole cm/sec ----- Right CCA: 20.5 ----- Right ICA: 27.0 ----- Right ECA: 11.5 LEFT: Peak Systolic Velocity (PSV) cm/sec ----- Left CCA: 94.3 ----- Left ICA: 82.8 ----- Left ECA: 80.9 ICA/CCA ratio: 0.88 LEFT: End Diastole cm/sec ----- Left CCA: 18.0 ----- Left ICA: 17.2 ----- Left ECA: 9.7 VERTEBRALS (direction of flow): Right Vertebral: Antegrade Left Vertebral: Antegrade Rhythm: Normal CLAY MIXER NOTES: No significant stenosis seen. Atherosclerotic changes noted bilaterally within th e carotid bulb. Constant pt movement throughout exam, creating motion artifact IMPRESSION: 1. Mild carotid bifurcation plaque resulting in minimal stenosis based on color and Grayscale imaging . 2. No hemodynamically significant stenosis based on peak systolic velocities and ratios. Criteria for Assigning % of Stenosis / Diameter reduction (Estimation based on the indirect measurements of the internal carotid artery velocities (ICA PSV). 1. Normal (no stenosis)=ICA PSV < 125 cm/s: ratio < 2.0: ICA EDV<40 cm/s. 2. Less than 50% stenosis=ICA PSV < 125 cm/s: ratio < 2.0: ICA EDV<40 cm/s. 3. 50 to 69% stenosis=ICA PSV of 125 to 230 cm/s: ration 2.0 ? 4.0: ICA EDV 40-100 cm/s. 4. Greater than 70% stenosis to near occlusion= ICA PSV > 230 cm/s: ratio > 4.0: ICA EDV > 100 cm/s. 5. Near occlusion= ICA PSV velocities may be low or undetectable: variable ratio and ICA EDV. 6. Total occlusion=unable to detect flow. [facility], , 11/30/2023 1:00 PM
--- NOTE | 2023-11-30 13:07 | XR ---
EXAMINATION TYPE: XR chest 1V DATE OF EXAM: 11/30/2023 COMPARISON: 11/25/2023 HISTORY: Shortness of breath TECHNIQUE: Single frontal view of the chest is obtained. FINDINGS: There has been median sternotomy and prosthetic heart valve surgery. There are chronic interstitial changes in the lung bases, right greater than left. There is increased lucency in the upper lobes consistent with COPD. There is no pleural effusion or pneumothorax there is no definite airspace consolidation. IMPRESSION: 1. Post heart valve prosthesis with sternotomy. 2. Chronic interstitial changes and COPD changes as described above. 3. No definite acute cardiopulmonary disease. IMPRESSION: No acute process. [facility], , 11/30/2023 1:04 PM
[2023-11-30] MEDS: SODIUM CHLORIDE 0.45% 1,000 ML IV SCH (14:25)
--- NOTE | 2023-11-30 14:51 | P.GSCN ---
History of Present Illness History of present illness: 83-year-old gentleman with acute kidney injury with urinary retention. History of A-fib and congestive heart failure creatinine is 4.59 uric nonoliguric graft on examination chest few crackles the lung bases. Second sound present Abdomen soft nontender Femorals are 1+ bilateral Plan is placement of dialysis catheter Past Medical History Past Medical History: Atrial Fibrillation, Heart Failure, COPD, GI Bleed, Hyperlipidemia, Pneumonia, Renal Disease, Skin Disorder, Vascular Disorder Additional Past Medical History / Comment(s): GI bleed, gastritis, gastric ectasia, CKD stage III, past abdominal aortic aneurysm/had stent placed, varicosities, PVD, past shingellis and occasionally will have R flank nerve pain, BPH. Covid 09/2022 History of Any Multi-Drug Resistant Organisms: MRSA Year Discovered:: 03/19/22 MDRO Source:: Urine Past Surgical History: Cardiac Valve Replacement, Cholecystectomy, Heart Catheterization Additional Past Surgical History / Comment(s): Stent placed for lower abd aortic aneurysym, mitral valve replacement/bicuspid repair, EGD with ablation, colonoscopy, excision L cheek lesion/mass and lesion from scalp/all benign, ZEPHER VALVE PLACED 2 YRS AGO AT [facility] Past Anesthesia/Blood Transfusion Reactions: No Reported Reaction Date of Last Stent Placement:: 2015 Past Psychological History: Anxiety Smoking Status: Former smoker Past Alcohol Use History: Occasional Past Drug Use History: None Reported - Past Family History Mother Family Medical History: Myocardial Infarction ([place]) Additional Family Medical History / Comment(s): at a young age. Father Family Medical History: Hypertension Medications and Allergies Home Medications Medication Instructions Recorded Confirmed Type Fluticasone Propion/Salmeterol 1 puff INHALATION RT-BID 05/05/22 11/23/23 History [Wixela 100-50 Inhub] Sertraline [Zoloft] 50 mg PO HS 05/05/22 11/23/23 History Warfarin [Coumadin] 1 mg PO SUTUTHSA@199907/12/22 11/23/23 History Tamsulosin [Flomax] 0.4 mg PO DAILY 08/30/22 11/23/23 History Warfarin Sodium 4 mg PO MOWEFR@199908/30/22 11/23/23 History Bisoprolol [Zebeta] 5 mg PO DAILY 05/01/23 11/23/23 History Nitroglycerin Sl Tabs [Nitrostat] 0.4 mg SUBLINGUAL Q5M PRN tab 07/26/23 11/23/23 Rx Tiotropium 2.5 Mcg/Puff [Spiriva 2 puff INHALATION RT-DAILY 10/04/23 11/23/23 History Respimat 2.5 Mcg] Ferrous Sulfate [Iron (65 MG 325 mg PO BID 11/23/23 11/23/23 History Elemental)] Ipratropium-Albuterol Nebulize 3 ml INHALATION RT-QID PRN 11/23/23 11/23/23 History [Duoneb 0.5 mg-3 mg/3 ml Soln] predniSONE 2.5 mg PO DAILY 11/23/23 11/23/23 History Acetaminophen Tab [Tylenol] 650 mg PO Q6HR PRN tab 11/29/23 Rx Calcium Carbonate [Tums] 1,000 mg PO Q4HR PRN tab 11/29/23 Rx Cefepime [Maxipime] 1 gm IVPB Q12H #20 each 11/29/23 Rx Darbepoetin Ashish [Aranesp] 40 mcg SQ Q7D each 11/29/23 Rx Famotidine [Pepcid] 20 mg PO DAILY tab 11/29/23 Rx Furosemide [Lasix] 20 mg PO DAILY tab 11/29/23 Rx Ipratropium-Albuterol Nebulize 3 ml INHALATION Q4H PRN each 11/29/23 Rx [Duoneb 0.5 mg-3 mg/3 ml Soln] Ipratropium-Albuterol Nebulize 3 ml INHALATION RT-QID each 11/29/23 Rx [Duoneb 0.5 mg-3 mg/3 ml Soln] LORazepam [Ativan] 0.5 mg PO BID PRN 3 Days #6 tab 11/29/23 Rx Mag Hydrox/Al Hydrox/Simeth 15 ml PO Q6HR PRN ml 11/29/23 Rx [Maalox] Midodrine [ProAmatine] 5 mg PO AC-TID tab 11/29/23 Rx Sodium Bicarbonate Tab 650 mg PO BID tab 11/29/23 Rx polyethylene glycoL 3350 [Miralax] 17 gm PO DAILY packet 11/29/23 Rx Allergies Allergy/AdvReac Type Severity Reaction Status Date / Time empagliflozin Allergy Dyspnea Verified 11/23/23 09:10 [From Jardiance] iodine AdvReac Unknown Verified 11/23/23 09:10 morphine AdvReac Hallucinati Verified 11/23/23 09:10 ons Patches on chest Allergy Swelling, Uncoded 10/04/23 14:02 See Comment pain med (can't remember AdvReac Hallucinati Uncoded 10/04/23 14:02 name) ons Surgical - Exam Vital Signs Temp Pulse Resp BP Pulse Ox 97.7 F 81 18 113/61 99 11/23/23 05:06 11/23/23 05:06 11/23/23 05:06 11/23/23 05:06 11/23/23 05:06 Results - Labs 11/30/23 10:04 11/30/23 10:04 Abnormal Lab Results - Last 24 Hours (Table) 11/30/23 11/30/23 11/30/23 Range/Units 05:10 10:04 10:04 RBC 2.85 L (4.30-5.90) m/uL Hgb 8.3 L (13.0-17.5) gm/dL Hct 28.0 L (39.0-53.0) % MCHC 29.7 L (31.0-37.0) g/dL RDW 16.9 H (11.5-15.5) % Plt Count 144 L (150-450) k/uL Lymphocytes # 0.8 L (1.0-4.8) k/uL PT 19.1 H (10.0-12.5) sec INR 1.9 H (<1.2) Chloride 108 H (98-107) mmol/L Carbon Dioxide 21 L (22-30) mmol/L BUN 96 H (9-20) mg/dL Creatinine 4.59 H (0.66-1.25) mg/dL Diabetes panel 11/30/23 Range/Units 10:04 Sodium 140 (137-145) mmol/L Potassium 5.0 (3.5-5.1) mmol/L Chloride 108 H (98-107) mmol/L Carbon Dioxide 21 L (22-30) mmol/L BUN 96 H (9-20) mg/dL Creatinine 4.59 H (0.66-1.25) mg/dL Glucose 83 (74-99) mg/dL Calcium 9.0 (8.4-10.2) mg/dL Calcium panel 11/30/23 Range/Units 10:04 Calcium 9.0 (8.4-10.2) mg/dL Pituitary panel 11/30/23 Range/Units 10:04 Sodium 140 (137-145) mmol/L Potassium 5.0 (3.5-5.1) mmol/L Chloride 108 H (98-107) mmol/L Carbon Dioxide 21 L (22-30) mmol/L BUN 96 H (9-20) mg/dL Creatinine 4.59 H (0.66-1.25) mg/dL Glucose 83 (74-99) mg/dL Calcium 9.0 (8.4-10.2) mg/dL Adrenal panel 11/30/23 Range/Units 10:04 Sodium 140 (137-145) mmol/L Potassium 5.0 (3.5-5.1) mmol/L Chloride 108 H (98-107) mmol/L Carbon Dioxide 21 L (22-30) mmol/L BUN 96 H (9-20) mg/dL Creatinine 4.59 H (0.66-1.25) mg/dL Glucose 83 (74-99) mg/dL Calcium 9.0 (8.4-10.2) mg/dL
--- NOTE | 2023-11-30 15:23 | CA ---
Transthoracic Echo Report Name: Ankur Pereira Age: 83 Gender: M : 1940 Exam Date: 11/30/2023 14:07 Exam Location: [facility] Ht (in): 69 Wt (lb): 112 Ordering Physician: Rogelio Patrick MD Attending/Referring Phys: Chief School Finance Officer Brenda Valderrama RDCS Procedure CPT: Indications: stroke Cardiac Hx: MV REPLACED, TV REPAIR Technical Quality: Fair Contrast 1: Total Dose (mL): Contrast 2: Total Dose (mL): MEASUREMENTS (Male / Female) Normal Values 2D ECHO LV Diastolic Diameter PLAX 5.1 cm 4.2 - 5.9 / 3.9 - 5.3 cm LV Systolic Diameter PLAX 4.9 cm IVS Diastolic Thickness 1.1 cm 0.6 - 1.0 / 0.6 - 0.9 cm LVPW Diastolic Thickness 1.1 cm 0.6 - 1.0 / 0.6 - 0.9 cm LV Relative Wall Thickness 0.5 RV Internal Dim ED PLAX 4.1 cm LVOT Diameter 3.0 cm LA Systolic Diameter LX 3.7 cm 3.0 - 4.0 / 2.7 - 3.8 cm LV Diastolic Volume MOD BP 108.4 cm??? 67 - 155 / 56 - 104 cm??? LV Systolic Volume MOD BP 82.6 cm??? - 58 / 19 - 49 cm??? LV Ejection Fraction MOD BP 23.8 % >= 55 % LV Cardiac Index MOD BP 1640.7 cm???/min???m??? LV Diastolic Volume MOD 4C 94.5 cm??? LV Systolic Volume MOD 4C 70.0 cm??? LV Ejection Fraction MOD 4C 26.0 % LV Cardiac Index MOD 4C 1561.5 cm???/min???m??? LV Diastolic Length 4C 6.8 cm LV Systolic Length 4C 6.2 cm LV Diastolic Volume MOD 2C 125.7 cm??? LV Systolic Volume MOD 2C 87.5 cm??? LV Ejection Fraction MOD 2C 30.4 % LV Cardiac Index MOD 2C 2431.9 cm???/min???m??? LV Diastolic Length 2C 6.9 cm LV Systolic Length 2C 6.9 cm LA Volume 116.4 cm??? 18 - 58 / 22 - 52 cm??? LA Volume Index 74.8 cm???/m??? 16 - 28 cm???/m??? M-MODE Aortic Root Diameter MM 4.6 cm AV Cusp Separation MM 1.3 cm DOPPLER AV Peak Velocity 193.8 cm/s AV Peak Gradient 18.0 mmHg AV Mean Velocity 131.9 cm/s AV Mean Gradient 9.0 mmHg AV Velocity Time Integral 37.9 cm AI Peak Velocity 332.8 cm/s AI Peak Gradient 44.3 mmHg AI Pressure Half Time 371.4 ms MV Peak Velocity 186.0 cm/s MV Peak Gradient 13.8 mmHg MV Mean Velocity 79.5 cm/s MV Mean Gradient 3.6 mmHg MV Velocity Time Integral 38.9 cm MV Area PHT 4.0 cm??? MV Deceleration Time 295.5 ms TR Peak Velocity 311.1 cm/s TR Peak Gradient 38.7 mmHg Right Ventricular Systolic Press 49.0 mmHg FINDINGS Left Ventricle Left ventricular ejection fraction is estimated at 30- 35 %. Global hypokinesis of the left ventricle . Right Ventricle moderate right ventricular dilatation. Moderate pulmonary hypertension. Right ventricular systolic pressure estimated at 49 mm hg. Right Atrium Moderate right atrial dilatation. No right atrial thrombus or mass seen. Left Atrium Severely increased left atrial volume. Mildly increased left atrial area. No left atrial thrombus or mass present. Mitral Valve Normal functioning bioprosthetic MV with mean gradient of 4 mmHg. mild mitral regurgitation Aortic Valve Trileaflet aortic valve. Diffuse thickening of the aortic valve cusps with reduced excursion. Mild aortic stenosis with a peak gradient of 18 mmHg and a mean gradient of 9 mmHg. Low flow low gradient. Moderate aortic regurgitation. Tricuspid Valve TV repair with. Moderate tricuspid regurgitation. Pulmonic Valve Structurally normal pulmonic valve. Mild pulmonic regurgitation. Pericardium No pericardial or pleural effusion. Aorta Severe aortic dilatation at the level of the sinuses of valsalva 46 mm CONCLUSIONS 1. Severely impaired left ventricular systolic function with global hypokinesis 2. Mitral valve bioprosthesis with mild tricuspid regurgitation 3. Tricuspid valve repair with moderate tricuspid regurgitation and moderate pulmonary hypertension 4. Moderate aortic regurgitation with a mean gradient of 9 mmHg Previewed by: Dr. Silvino Kramer MD (Electronically Signed) Final Date: 30 November 2023 15:23
[2023-11-30] MEDS: LIDOCAINE 1% INJ 10MG/ML (20 ML MDV) SQ ONE (16:03)
--- NOTE | 2023-11-30 16:17 | P.PCN ---
Description of Procedure: Preop diagnosis acute chronic renal failure Postop the same Procedure ultrasound-guided 20 cm dialysis catheter placed right femoral approach Patient brought to the [facility] right groin was prepped and draped. Right show ureteral manner and guided micropuncture introduced right femoral vein puncture guidewire passed checked with C-arm it was good position sheath was advanced over guidewire through the guidewire replaced. Dilator triple-lumen dialysis catheter placed on the top of the guidewire guidewire as well as was removed flushed with heparin saline hep-locked secured with 3-0 nylon patient tarted the procedure well
[2023-11-30 18:16] LABS: Glucose,Whole Blood 79 mg/dL (70-110)
[2023-11-30] MEDS: MORPHINE SULFATE 2 MG/ML SYRINGE IVP STA (22:18)
[2023-11-30] MEDS: WARFARIN 2 MG TAB PO ONE (22:33)
[2023-12-01 05:34] LABS: INR 2.1 (<1.2); Prothrombin Time 20.9 sec (10.0-12.5)
--- NOTE | 2023-12-01 10:10 | P.PN ---
Subjective Progress Note Date: 12/01/23 I am following up with the patient and according to the nurse no improvement in his condition. Yesterday unable to perform CT angiography since the patient has allergy to iodine therefore carotid duplex was obtained Objective - Vital Signs Vital signs: Vital Signs Temp 97.5 F L 12/01/23 07:00 Pulse 88 12/01/23 09:08 Resp 17 12/01/23 07:00 BP 107/62 12/01/23 07:00 Pulse Ox 100 12/01/23 07:00 FiO2 Intake & Output 11/30/23 12/01/23 12/01/23 18:59 06:59 18:59 Intake Total 500 Output Total 100 900 Balance -100 -400 Intake: Hemodialysis 500 Output: Urine 100 400 Hemodialysis 500 Hemodialysis Net Amount 0 Other: Voiding Method Indwelling Catheter Indwelling Catheter Indwelling Catheter # Bowel Movements 0 - Exam General: Does not appear in acute distress. Neuro: Very limited. Patient would scream saying "ah" repeatdly At time he would open his eyes and make poor eye contact I do not appreciate facial weakness. Motor: Unable to assess and kept on screaming if I picked up his arm. Some of the work-up consisted of: His creatnine yesterday is 4.59 and baseline is below 2. TSH is 1.350 Ammonia is less than 9 +ve acute UTI. Urine culture is pseudomonas aeruginosa, proteus mirabilis CT head today reported as mild age-appropriate atrophy. No acute intra or extral axial hemorrhage. No mass effect or shift of midline structure. Tiny remote lacunar infarct in left basal ganglia. I personally reviewed CT and agree there is no acute or subacute ischemic stroke. Carotid duplex is reported as mild carotid bifurcation plaque resulting in minimal stenosis. No hemodynamically significant stenosis based on peak systolic velocity and ratio 2D echo was reported as severely impaired left ventricular systolic function with global hypokinesis. Mitral valve by prosthesis with mild tricuspid regurgi tation. Tricuspid valve repair with moderate tricuspid regurgitation and moderate pulmonary hypertension. Moderate aortic regurgitation. - Labs CBC & Chem 7: 11/30/23 10:04 11/30/23 10:04 Labs: Abnormal Lab Results - Last 24 Hours (Table) 11/30/23 11/30/23 12/01/23 Range/Units 10:04 10:04 05:09 RBC 2.85 L (4.30-5.90) m/uL Hgb 8.3 L (13.0-17.5) gm/dL Hct 28.0 L (39.0-53.0) % MCHC 29.7 L (31.0-37.0) g/dL RDW 16.9 H (11.5-15.5) % Plt Count 144 L (150-450) k/uL Lymphocytes # 0.8 L (1.0-4.8) k/uL PT 20.9 H (10.0-12.5) sec INR 2.1 H (<1.2) Chloride 108 H (98-107) mmol/L Carbon Dioxide 21 L (22-30) mmol/L BUN 96 H (9-20) mg/dL Creatinine 4.59 H (0.66-1.25) mg/dL Assessment and Plan Assessment: This is an 83 year-old gentleman who presents to the ED because of acute UTI who is also having worsening of acute on chronic UTI who yesterday family felt he was confused, felt he had left sided weakness and facial weakness yesterday at 4pm. On my examination I could not appreciate any focality and feel he is generalized weakness and did not appreciate left facial weakness. Altered mental status with reported left sided weakness by family members two days ago at 4pm: Rule out acute ischemic stroke. As stated above he has generalized weakness and confusion and just screaming in pain and feel probable due to toxic-metabolic encephalopathy due to worsening of kidney function and acute UTI and medication effect (Cephalosporin). CT head negative for any acute or subacute ischemic stroke. Carotid duplex is negative for significant carotid stenosis. Acute on chronic kidney insuffiency Acute UTI (urine culture pseudomonas aeruginosa, proteus mirabilis). Atrial fibrillation on coumadin Left ventricular systolic function with global hypokinesis and moderate pulmonary pulmonary hypertension as well as moderate aortic regurgitation on 2D echo Plan: Pending lipid panel, vitamin B12 and folate level. Pending MRI Brain. Will pursue with routine EEG. Patient is on Warfarin. Nephrology is on board. I.D. is on board. I Recommend switching his Cefepime medication to a different. Patient has severely impaired left ventricular systolic function with global hypokinesis and moderate pulmonary pulmonary hypertension as well as moderate aortic regurgitation. If patient does have a stroke then would recommend cardiology consultation Will defer the rest of medical management to primary and other specialist. The plan is discussed with his nurse. Dr. Padgett will resume neurology service tomorrow A.M. Time with Patient: Less than 30
[2023-12-01 11:27] LABS: BUN/Creat Ratio 17.61 Ratio (12.00-20.00); Blood Urea Nitrogen 63.4 mg/dL (9.0-27.0); Calcium 8.2 mg/dL (8.7-10.3); Carbon Dioxide 22.1 mmol/L (21.6-31.8); Chloride 102 mmol/L (96-109); Glucose 65 mg/dL (70-110); Magnesium 2.1 mg/dL (1.5-2.4); Potassium 4.5 mmol/L (3.5-5.5); Sodium 139 mmol/L (135-145)
--- NOTE | 2023-12-01 11:32 | P.PN ---
Subjective Progress Note Date: 12/01/23 Principal diagnosis: 3 days of diarrhea history of atrial fibrillation congestive heart failure and worsening renal failure known history of cardiorenal syndrome,acute kidney injury with subsequent urinary tract infection,urine culture demonstrates pseudomonas aeruginosa and Proteus mirabilisantibiotics include cefepime Dr. Patrick neurology has been suggesting a change in antibiotics will discuss with infectious disease patient was to be transferred to [facility] on the [place] [facility] when I evaluated patient and he was awake alert experiencing an episode of expressive aphasia appears to be new onset suspect CVA will get stat CT of brain without contrast at this time,CT of the brain noted no new or acute lesion Patient dialyzed yesterday is responding to verbal stimuli speaks a few words some quite appropriate Objective - Vital Signs Vital signs: Vital Signs Temp 97.5 F L 12/01/23 07:00 Pulse 88 12/01/23 09:08 Resp 17 12/01/23 07:00 BP 107/62 12/01/23 07:00 Pulse Ox 100 12/01/23 07:00 FiO2 Intake & Output 11/30/23 12/01/23 12/01/23 18:59 06:59 18:59 Intake Total 500 Output Total 100 900 Balance -100 -400 Intake: Hemodialysis 500 Output: Urine 100 400 Hemodialysis 500 Hemodialysis Net Amount 0 Other: Voiding Method Indwelling Catheter Indwelling Catheter Indwelling Catheter # Bowel Movements 0 - Exam General: [Patient awake, alert facet of expressive aphasia. and is cachectic able to follow basic commands HEENT: [PERRL. EOMI. No pharyngeal erythema or exudate.] Neck: [No adenopathy.] Cardiac: [Heart Sandra a regular, with grade 4 systolic ejection murmur midline surgical service and associated with previous cardiac surgeries Lungs: [Clear to auscultation bilaterally.however diminished bilaterally Abdomen: [No mass. No organomegaly. Bowel sounds presnt and normoactive in all 4 quadrants.] Extremes: [No edema no cyanosis no claudication normal pulses] , multiple scars bilateral lower extremes secondary to vascular procedures in the past : normal male genitalia Musculoskeletal: [No joint erythema, edema or tenderness.] Skin: [No rash.] Neurologic: [No lateralizing deficits. CN II - XII grossly intact.] Lymphatic: [No adenopathy.] - Labs CBC & Chem 7: 11/30/23 10:04 11/30/23 10:04 Labs: Abnormal Lab Results - Last 24 Hours (Table) 11/30/23 12/01/23 Range/Units 10:04 05:09 RBC 2.85 L (4.30-5.90) m/uL Hgb 8.3 L (13.0-17.5) gm/dL Hct 28.0 L (39.0-53.0) % MCHC 29.7 L (31.0-37.0) g/dL RDW 16.9 H (11.5-15.5) % Plt Count 144 L (150-450) k/uL Lymphocytes # 0.8 L (1.0-4.8) k/uL PT 20.9 H (10.0-12.5) sec INR 2.1 H (<1.2) Assessment and Plan (1) Encephalopathy, metabolic Current Visit: Yes Status: Acute Code(s): G93.41 - METABOLIC ENCEPHALOPATHY SNOMED Code(s): 84778436 (2) CANDACE (acute kidney injury) Current Visit: Yes Status: Acute Code(s): N17.9 - ACUTE KIDNEY FAILURE, UNSPECIFIED SNOMED Code(s): 89520229 (3) Acute on chronic renal failure Current Visit: Yes Status: Acute Code(s): N17.9 - ACUTE KIDNEY FAILURE, UNSPECIFIED; N18.9 - CHRONIC KIDNEY DISEASE, UNSPECIFIED SNOMED Code(s): 177546160 (4) Cystitis Current Visit: Yes Status: Acute Code(s): N30.90 - CYSTITIS, UNSPECIFIED WITHOUT HEMATURIA SNOMED Code(s): 72026811 (5) Dehydration Current Visit: Yes Status: Acute Code(s): E86.0 - DEHYDRATION SNOMED Code(s): 34306163 (6) UTI (urinary tract infection) Current Visit: Yes Status: Acute Code(s): N39.0 - URINARY TRACT INFECTION, SITE NOT SPECIFIED SNOMED Code(s): 52482279 (7) Acute on chronic systolic (congestive) heart failure Current Visit: No Status: Acute Code(s): I50.23 - ACUTE ON CHRONIC SYSTOLIC (CONGESTIVE) HEART FAILURE SNOMED Code(s): 168355648 (8) Aortic stenosis Current Visit: No Status: Acute Code(s): I35.0 - NONRHEUMATIC AORTIC (VALVE) STENOSIS SNOMED Code(s): 74187647 (9) COPD (chronic obstructive pulmonary disease) Current Visit: No Status: Acute Code(s): J44.9 - CHRONIC OBSTRUCTIVE PULMONARY DISEASE, UNSPECIFIED SNOMED Code(s): 82868086 (10) Chronic indwelling Felder catheter Current Visit: No Status: Acute Code(s): Z97.8 - PRESENCE OF OTHER SPECIFIED DEVICES SNOMED Code(s): 194359248 (11) Coagulopathy Current Visit: No Status: Acute Code(s): D68.9 - COAGULATION DEFECT, UNSPECIFIED SNOMED Code(s): 01673770 (12) History of endovascular stent graft for abdominal aortic aneurysm (AAA) Current Visit: No Status: Acute Code(s): Z95.828 - PRESENCE OF OTHER VASCULAR IMPLANTS AND GRAFTS SNOMED Code(s): 946140723681557 Plan: urinary tract infection currently IV antibiotics Diminished GFR patient dialyzed yesterday possibly being dialyzed today MRI of the brain tomorrow to assess for possible encephalopathy versus CVA Improved alertness and verbal responses but demonstrating mental status change Will continue to follow closely Time with Patient: Greater than 30
--- NOTE | 2023-12-01 12:06 | P.PN ---
Subjective Patient is seen in follow-up for acute kidney injury. Renal function worse with creatinine 4.59 yesterday. Started on hemodialysis November 30, 2023 due to worsening renal function and concern for uremia. Has Felder catheter for urinary retention. No improvement in mentation. Vital signs are stable. General: No acute distress. HEENT: Head exam is unremarkable. On nasal cannula. LUNGS: No audible rhonchi or wheezes. HEART: Rate and Rhythm are regular. ABDOMEN: Nontender. EXTREMITITES: No edema. Objective - Vital Signs Vital signs: Vital Signs Temp 97.5 F L 12/01/23 07:00 Pulse 84 12/01/23 11:55 Resp 17 12/01/23 07:00 BP 107/62 12/01/23 07:00 Pulse Ox 100 12/01/23 07:00 FiO2 Intake & Output 11/30/23 12/01/23 12/01/23 18:59 06:59 18:59 Intake Total 500 Output Total 100 900 Balance -100 -400 Intake: Hemodialysis 500 Output: Urine 100 400 Hemodialysis 500 Hemodialysis Net Amount 0 Other: Voiding Method Indwelling Catheter Indwelling Catheter Indwelling Catheter # Bowel Movements 0 - Labs CBC & Chem 7: 11/30/23 10:04 12/01/23 05:09 Labs: Abnormal Lab Results - Last 24 Hours (Table) 11/30/23 12/01/23 12/01/23 Range/Units 10:04 05:09 05:09 RBC 2.85 L (4.30-5.90) m/uL Hgb 8.3 L (13.0-17.5) gm/dL Hct 28.0 L (39.0-53.0) % MCHC 29.7 L (31.0-37.0) g/dL RDW 16.9 H (11.5-15.5) % Plt Count 144 L (150-450) k/uL Lymphocytes # 0.8 L (1.0-4.8) k/uL PT 20.9 H (10.0-12.5) sec INR 2.1 H (<1.2) Anion Gap 14.90 H (4.00-12.00) mmol/L BUN 63.4 H (9.0-27.0) mg/dL Creatinine 3.6 H (0.6-1.5) mg/dL Est GFR (CKD-EPI) 16 L (>=60) Glucose 65 L (70-110) mg/dL Calcium 8.2 L (8.7-10.3) mg/dL Assessment and Plan Plan: Assessment: 1. Acute kidney injury secondary to obstructive uropathy and infection. Creatinine near 1 in May 2023. Renal function worse with creatinine 4.59 November 30, 2023. Started on hemodialysis November 30 2023 due to concern for uremia. Urine output about 500 cc in the last 24 hours. No hydronephrosis noted on CT. 2. Proteus UTI on antibiotics. 3. Chronic systolic CHF ejection fraction of 30 to 35%, mild to moderate aortic stenosis/tricuspid regurgitation and moderate to severe aortic regurgitation noted on echocardiogram done in July 2023. 4. Metabolic acidosis secondary to acute kidney injury and IV fluids. Status post bicarb drip. Improved. Now on oral bicarb. 5. Urinary retention. Has Felder catheter. On Flomax. Seen by urology. No further interventions planned. Felder management per urology. 6. Anemia. Avoid IV iron in the setting of acute infection. On Aranesp. Plan: Second treatment of hemodialysis today and third treatment tomorrow. Maintain midodrine 5 mg 3 times daily. Hold for systolic blood pressure greater than 110. Encouraged oral intake. Continue to monitor renal function and urine output. Serologies negative except for mildly decreased C3 level. Urine eosinophils negative. Currently on half-normal saline. Decrease rate to 50 cc an hour. Lasix 80 mg IV once today. Continue to monitor for renal recovery.
[2023-12-01 12:13] LABS: Chol/HDL Ratio 4.45 Ratio; LDL Cholesterol,Calculated 103.1 mg/dL (0.0-131.0)
[2023-12-01] MEDS: FUROSEMIDE 10 MG/ML 10 ML VIAL IV STA (13:44)
--- NOTE | 2023-12-01 14:37 | P.PN ---
Subjective Progress Note Date: 11/30/23 Principal diagnosis: Reason for follow-up is a urinary tract infection Patient is a 83-year-old male with a past medical history significant for hyperlipidemia COPD heart failure with atrial fibrillation BPH presenting to the hospital for evaluation of diarrhea also difficulty urination requiring Felder catheter placement did have a positive UA and urine has been finalized with drug-resistant Proteus prompting this consultation. On today's evaluation that is 11/30/2023, patient has been afebrile, patient is breathing comfortably and is currently on 3 L current oxygen patient is more sleepy lethargic today no agitation has been reported by the family the bedside no vomiting or diarrhea currently waiting for dialysis catheter placement and initiation of dialysis. Patient white count 6.9, creatinine 4.59 Objective - Vital Signs Vital signs: Vital Signs Temp 97.7 F 11/30/23 15:00 Pulse 95 11/30/23 16:28 Resp 20 11/30/23 15:00 BP 157/94 11/30/23 16:28 Pulse Ox 100 11/30/23 16:28 FiO2 Intake & Output 11/29/23 11/30/23 11/30/23 18:59 06:59 18:59 Intake Total 100 120 Output Total 300 250 100 Balance -200 -130 -100 Weight 50.802 kg Intake: Oral 100 120 Output: Urine 300 250 100 Other: Voiding Method Indwelling Catheter Indwelling Catheter Indwelling Catheter # Bowel Movements 1 0 - Exam GENERAL DESCRIPTION: An elderly male lying in bed in no distress RESPIRATORY SYSTEM: Unlabored breathing , decreased breath sounds at bases HEART: S1 S2 regular rate and rhythm , ABDOMEN: Soft , no tenderness EXTREMITIES: No edema feet - Labs CBC & Chem 7: 11/30/23 10:04 12/01/23 05:09 Labs: Abnormal Lab Results - Last 24 Hours (Table) 11/30/23 11/30/23 11/30/23 Range/Units 05:10 10:04 10:04 RBC 2.85 L (4.30-5.90) m/uL Hgb 8.3 L (13.0-17.5) gm/dL Hct 28.0 L (39.0-53.0) % MCHC 29.7 L (31.0-37.0) g/dL RDW 16.9 H (11.5-15.5) % Plt Count 144 L (150-450) k/uL Lymphocytes # 0.8 L (1.0-4.8) k/uL PT 19.1 H (10.0-12.5) sec INR 1.9 H (<1.2) Chloride 108 H (98-107) mmol/L Carbon Dioxide 21 L (22-30) mmol/L BUN 96 H (9-20) mg/dL Creatinine 4.59 H (0.66-1.25) mg/dL Assessment and Plan (1) Cystitis Current Visit: Yes Status: Acute Code(s): N30.90 - CYSTITIS, UNSPECIFIED WITHOUT HEMATURIA SNOMED Code(s): 60409907 (2) UTI (urinary tract infection) Current Visit: Yes Status: Acute Code(s): N39.0 - URINARY TRACT INFECTION, SITE NOT SPECIFIED SNOMED Code(s): 47894696 Plan: 1patient presented to hospital with diarrhea he also have some suprapubic discomfort did have a significantly positive UA concerning for symptomatic urinary tract infection likely from gram-negative pathogen with urine currently showing drug-resistant Proteus and Pseudomonas aeruginosa that is sensitive to cefepime 2-patient with renal insufficiency and high risk of nephrotoxicity 3-patient did have worsening of his kidney function nephrology is considering dialysis continue with the cefepime Family the bedside questions answered Dictation was produced using [employer] dictation software. please excuse any grammatical, word or spelling errors. Time with Patient: Less than 30
--- NOTE | 2023-12-01 14:38 | P.PN ---
Subjective Progress Note Date: 12/01/23 Principal diagnosis: Reason for follow-up is a urinary tract infection Patient is a 83-year-old male with a past medical history significant for hyperlipidemia COPD heart failure with atrial fibrillation BPH presenting to the hospital for evaluation of diarrhea also difficulty urination requiring Felder catheter placement did have a positive UA and urine has been finalized with drug-resistant Proteus prompting this consultation. On today's evaluation that is 12/01/2023, Patient is afebrile this morning patient is currently on 3 L current oxygen is breathing comfortably patient is lethargic did not answer any question no vomiting diarrhea has been reported. Patient did have a creatinine of 3.6 no CBC was done today Objective - Vital Signs Vital signs: Vital Signs Temp 97.5 F L 12/01/23 07:00 Pulse 80 12/01/23 12:01 Resp 17 12/01/23 07:00 BP 107/62 12/01/23 07:00 Pulse Ox 100 12/01/23 07:00 FiO2 Intake & Output 11/30/23 12/01/23 12/01/23 18:59 06:59 18:59 Intake Total 500 Output Total 100 900 Balance -100 -400 Intake: Hemodialysis 500 Output: Urine 100 400 Hemodialysis 500 Hemodialysis Net Amount 0 Other: Voiding Method Indwelling Catheter Indwelling Catheter Indwelling Catheter # Bowel Movements 0 - Exam GENERAL DESCRIPTION: An elderly male lying in bed in no distress RESPIRATORY SYSTEM: Unlabored breathing , decreased breath sounds at bases HEART: S1 S2 regular rate and rhythm , ABDOMEN: Soft , no tenderness EXTREMITIES: No edema feet - Labs CBC & Chem 7: 11/30/23 10:04 12/01/23 05:09 Labs: Abnormal Lab Results - Last 24 Hours (Table) 11/30/23 12/01/23 12/01/23 Range/Units 14:30 05:09 05:09 PT 20.9 H (10.0-12.5) sec INR 2.1 H (<1.2) Anion Gap 14.90 H (4.00-12.00) mmol/L BUN 63.4 H (9.0-27.0) mg/dL Creatinine 3.6 H (0.6-1.5) mg/dL Est GFR (CKD-EPI) 16 L (>=60) Glucose 65 L (70-110) mg/dL Calcium 8.2 L (8.7-10.3) mg/dL HDL Cholesterol 37.30 L (40.00-60.00) mg/dL Assessment and Plan (1) Cystitis Current Visit: Yes Status: Acute Code(s): N30.90 - CYSTITIS, UNSPECIFIED WITHOUT HEMATURIA SNOMED Code(s): 83889642 (2) UTI (urinary tract infection) Current Visit: Yes Status: Acute Code(s): N39.0 - URINARY TRACT INFECTION, SITE NOT SPECIFIED SNOMED Code(s): 30393582 Plan: 1patient presented to hospital with diarrhea he also have some suprapubic discomfort did have a significantly positive UA concerning for symptomatic urinary tract infection likely from gram-negative pathogen with urine currently showing drug-resistant Proteus and Pseudomonas aeruginosa that is sensitive to cefepime 2-patient did have worsening of his kidney function, right femoral catheter has been placed for dialysis nephrology is following the patient we will continue the patient on cefepime while inpatient and monitor clinical course closely Dictation was produced using [employer] dictation software. please excuse any gr ammatical, word or spelling errors. Time with Patient: Less than 30
[2023-12-01] MEDS: WARFARIN 2 MG TAB PO ONE (18:37)
[2023-12-02 06:12] LABS: INR 2.3 (<1.2); Prothrombin Time 23.1 sec (10.0-12.5)
--- NOTE | 2023-12-02 13:00 | P.PN ---
Subjective Progress Note Date: 12/02/23 Principal diagnosis: Reason for follow-up is a urinary tract infection Patient is a 83-year-old male with a past medical history significant for hyperlipidemia COPD heart failure with atrial fibrillation BPH presenting to the hospital for evaluation of diarrhea also difficulty urination requiring Felder catheter placement did have a positive UA and urine has been finalized with drug-resistant Proteus prompting this consultation. On today's evaluation that is 12/02/2023,the patient continues to be afebrile the patient slightly more awake today however not a very good historian he is currently breathing comfortably 3 L current oxygen no vomiting diarrhea or any other changes reported by the nursing staff. Patient did have a creatinine of 3.6 INR of 2.3. Objective - Vital Signs Vital signs: Vital Signs Temp 98.0 F 12/02/23 07:57 Pulse 82 12/02/23 09:20 Resp 16 12/02/23 07:57 BP 119/60 12/02/23 07:57 Pulse Ox 94 L 12/02/23 07:57 FiO2 Intake & Output 12/01/23 12/02/23 12/02/23 18:59 06:59 18:59 Intake Total 500 Output Total 1900 Balance -1400 Intake: Hemodialysis 500 Output: Urine 400 Hemodialysis 1000 Hemodialysis Net Amount 500 Other: Voiding Method Indwelling Catheter Indwelling Catheter Indwelling Catheter - Exam GENERAL DESCRIPTION: An elderly male lying in bed in no distress RESPIRATORY SYSTEM: Unlabored breathing , decreased breath sounds at bases HEART: S1 S2 regular rate and rhythm , ABDOMEN: Soft , no tenderness EXTREMITIES: No edema feet - Labs CBC & Chem 7: 11/30/23 10:04 12/01/23 05:09 Labs: Abnormal Lab Results - Last 24 Hours (Table) 11/30/23 12/01/23 12/02/23 Range/Units 14:30 05:09 05:26 PT 23.1 H (10.0-12.5) sec INR 2.3 H (<1.2) Anion Gap 14.90 H (4.00-12.00) mmol/L BUN 63.4 H (9.0-27.0) mg/dL Creatinine 3.6 H (0.6-1.5) mg/dL Est GFR (CKD-EPI) 16 L (>=60) Glucose 65 L (70-110) mg/dL Calcium 8.2 L (8.7-10.3) mg/dL HDL Cholesterol 37.30 L (40.00-60.00) mg/dL Assessment and Plan (1) Cystitis Current Visit: Yes Status: Acute Code(s): N30.90 - CYSTITIS, UNSPECIFIED WITHOUT HEMATURIA SNOMED Code(s): 80709085 (2) UTI (urinary tract infection) Current Visit: Yes Status: Acute Code(s): N39.0 - URINARY TRACT INFECTION, SITE NOT SPECIFIED SNOMED Code(s): 81437780 Plan: 1patient presented to hospital with diarrhea he also have some suprapubic discomfort did have a significantly positive UA concerning for symptomatic urinary tract infection likely from gram-negative pathogen with urine currently showing drug-resistant Proteus and Pseudomonas aeruginosa that is sensitive to cefepime 2-patient did have worsening of his kidney function, right femoral catheter has been placed for dialysis, keeping in mind his mental status changes could be attributed to uremia underlying effect of cefepime not excluded we will switch antibiotics to Zosyn Dictation was produced using Vis[employer] dictation software. please excuse any grammatical, word or spelling errors. Time with Patient: Less than 30
--- NOTE | 2023-12-02 13:26 | P.PN ---
Subjective patient is seen for follow-up for acute kidney injury. Started on hemodialysis on 11/30/2023 due to worsening renal function and concern for uremia. Scheduled for hemodialysis today. Patient remains confused. Objective - Vital Signs Vital signs: Vital Signs Temp 98.0 F 12/02/23 07:57 Pulse 123 H 12/02/23 12:33 Resp 16 12/02/23 07:57 BP 119/60 12/02/23 07:57 Pulse Ox 94 L 12/02/23 07:57 FiO2 Intake & Output 12/01/23 12/02/23 12/02/23 18:59 06:59 18:59 Intake Total 500 Output Total 1900 Balance -1400 Intake: Hemodialysis 500 Output: Urine 400 Hemodialysis 1000 Hemodialysis Net Amount 500 Other: Voiding Method Indwelling Catheter Indwelling Catheter Indwelling Catheter - Exam patient is awake, comfortable, no acute distress. Examination of the heart S1 and S2 Examination of the lungs bilateral breath sounds are heard Abdomen is soft nontender Examination of lower extremity shows no significant edema - Labs CBC & Chem 7: 11/30/23 10:04 12/01/23 05:09 Labs: Abnormal Lab Results - Last 24 Hours (Table) 12/02/23 Range/Units 05:26 PT 23.1 H (10.0-12.5) sec INR 2.3 H (<1.2) Assessment and Plan Assessment: 1. Acute kidney injury secondary to obstructive uropathy and infection. Creatinine near 1 in May 2023. Renal function worse with creatinine 4.59 November 30, 2023. Started on hemodialysis November 30 2023 due to concern for uremia. Urine output about 400 cc in the last 24 hours. No hydronephrosis noted on CT. 2. Proteus UTI on antibiotics. 3. Chronic systolic CHF ejection fraction of 30 to 35%, mild to moderate aortic stenosis/tricuspid regurgitation and moderate to severe aortic regurgitation noted on echocardiogram done in July 2023. 4. Metabolic acidosis secondary to acute kidney injury and IV fluids. Status post bicarb drip. Improved. Now on oral bicarb. 5. Urinary retention. Has Feledr catheter. On Flomax. Seen by urology. No further interventions planned. Felder management per urology. 6. Anemia. Avoid IV iron in the setting of acute infection. On Aranesp. Plan: repeat hemodialysis today. Continue with Aranesp Continue with Felder catheter. continue antibiotics.
[2023-12-02] MEDS: PIPERACILLIN-TAZOBACTAM 3.375 GM in SODIUM CHLORIDE 0.9% 100 ML IVPB SCH (14:15)
--- NOTE | 2023-12-02 14:54 | P.PN ---
Subjective Progress Note Date: 12/02/23 11/23/23 Samir is a 83-year-old male well-known to the practice. He reports 3-day history of incessant diarrhea with multiple episodes of stools. He has a long history of atrial fibrillation, congestive heart failure, chronic renal failure, and a previous history of urinary retention with Felder catheter. Felder catheter was discontinued about 6 months ago and he had been doing well urinating without it. At this time he says he is urinating. He denies any chest pains pressures or shortness of breath that is different than any other time. He reports his stools are normal in color. Vitals are stable laboratory studies show a hyponatremia., He is chronically anemic hemoglobin is 9, BUN and creatinine are 83 and 2.47 with a GFR of 23. He is in good spirits. November 24, 2023: Patient is reevaluated today. He is feeling better overnight though he did have some confusion. He apparently called 911 while in his hospital bed. He says he realized his mistake right away and it was just after he was waking up that he felt very strange. He is feeling back to normal at this time. He denies any chest pains pressures. Shortness of breath is chronic and stable. Vital signs show temp 97.7 pulse oximetry 97% on 3 L O2, blood pressure is controlled. Labs this morning showed his sodium is now 139. Kidney function still little off with a BUN of 80 and a creatinine of 2.96. GFR is down to 19. Staff report postvoid residuals were 290 after urinating. He indicates he is urinating freely and does not wish to deal with a catheter at this time. He also reports no diarrhea overnight. Nephrology is following. 11/25/2023 worsening renal function, bicarb 15, BUN 74, creatinine 3.72, GFR 14, continues on bicarb drip. Nephrology following. blood sugars controlled. Viral studies negative, C. difficile negative. Sensorium significantly improved, alert and oriented x 3; staff reports patient is impulsive. Complains of constipation, no bowel movement in 2 days. Denies chest pain, palpitations or shortness of breath. Maintaining O2 sats in the 90s on 3 L nasal cannula. Echo from 07/25 reporting EF of 30 to 35%. Chest x-ray reported COPD with right basilar infiltrate/consolidation, persistent prominence of the left hilum. Brain CT reported no acute intracranial process. 11/26/2023 sensorium significantly improved. Maintained on bicarb drip, bicarb increased to 17, BUN 72, creatinine 3.9. Urine culture reporting gram-negative bacilli, Proteus Mirabilis, maintained on cefepime. Felder catheter for urinary retention. Evaluated by urology, recommendations noted including expecting this patient to have a higher postvoid residual of less than 500 mL. Maintaining O2 sats in the high 90s on 3 L nasal cannula. Hemoglobin decreased to 7.2, platelets 130. Denies chest pain, palpitations. INR 2.3 , anticoagulated on Coumadin .Reports very small bowel movement, MiraLAX changed from as needed to daily. 11/27/2023 mild tachycardia, low 1 teens,Bisprolol initiated. Coumadin per pharmacy dosing, INR elevated 3.7 today. Felder catheter present secondary to urinary retention. renal function worsening, creatinine 4.1. Bicarb 21.5, bicarb drip discontinued. maintaining O2 sats in the high 90s on 3 L nasal cannula. Continues on cefepime. 11/28/2023 IV fluids adjusted yesterday to half-normal saline at 75 mL, renal function slowly improving, bicarb 21.8, BUN 72, creatinine 3.9, estimated GFR 15. Urine output improving;Felder catheter.hepatitis serology nonreactive. Patient's bisoprolol resumed yesterday, heart rate better controlled. Nebulized bronchodilators adjusted yesterday with clinical improvement, continue O2 sats in the high 90s on 3 L nasal cannula, respiratory rate better controlled. Continues on cefepime, afebrile, normal WBC. Patient did not receive Coumadin last night as INR was elevated 3.7; INR decreased to 3.4, denies chest pain, palpitations or increase in shortness of breath. Hemoglobin 7.4, platelets 106. 11/29/2023 fluctuating mild confusion. Blood pressure soft, midodrine initiated. Afebrile, normal WBC, hemoglobin decreased to 7.7, platelets 109. No Coumadin last night, INR decreased to 2.3. Bicarb 22.5 BUN 38.2, creatinine increased to 4.1. Denies chest pain, palpitations. 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 Positive bowel movement last night on MiraLAX. 12/02/2023 alert, confused, recognizes PCP, converses minimally. Evaluated by neurology over the weekend for potential CVA, workup in progress, brain MRI pending. Hemodialysis initiated on 11/30/2023. Scheduled for repeat hemodialysis today. Antibiotics adjusted yesterday to Zosyn, as per ID secondary to possible uremia underlying effect of cefepime. 2D echo completed 11/30/2023 reporting severely impaired left ventricular systolic function, EF 30 to 35% with global hypokinesis, mitral valve bioprosthesis with mild tricuspid regurgitation, tricuspid valve repair with moderate tricuspid regurgitation and moderate pulmonary hypertension, moderate aortic regurgitation.Carotid Doppler reported no hemodynamic significant stenosis.Brain CT reported mild age-appropriate atrophy, no acute intra or extra-axial hemorrhage, no mass effect or shift of the midline structures, tiny remote lacunar infarct in left basal ganglia. Objective - Vital Signs Vital signs: Vital Signs Temp 98.0 F 12/02/23 07:57 Pulse 123 H 12/02/23 12:33 Resp 16 12/02/23 07:57 BP 119/60 12/02/23 07:57 Pulse Ox 94 L 12/02/23 07:57 FiO2 Intake & Output 12/01/23 12/02/23 12/02/23 18:59 06:59 18:59 Intake Total 500 Output Total 1900 Balance -1400 Intake: Hemodialysis 500 Output: Urine 400 Hemodialysis 1000 Hemodialysis Net Amount 500 Other: Voiding Method Indwelling Catheter Indwelling Catheter Indwelling Catheter - Exam General: Alert and oriented x 1, sitting up in bed, no acute distress. Minimally converses, laughs, recognizes PCP, appears to still exhibit expressive aphasia. HEENT: Normocephalic PERRLA EOMI. Neck: Supple, no JVD Cardiac: Regular S1-S2, tachycardic, no S3. No S4. No clicks, rubs. Positive systolic murmur consistent with his aortic valve replacement Lungs: Diminished breath sounds bilaterally. Abdomen: Soft, nontender, no hepatosplenomegaly, no guarding, no rigidity, +BS. Extremes: [No edema no cyanosis no claudication normal pulses : indwelling Felder catheter Skin: [No rash, warm and dry, Neurologic: Limited due to current confusion, generalized weakness, attempting to follow simple commands. - Labs CBC & Chem 7: 11/30/23 10:04 12/01/23 05:09 Labs: Abnormal Lab Results - Last 24 Hours (Table) 12/02/23 Range/Units 05:26 PT 23.1 H (10.0-12.5) sec INR 2.3 H (<1.2) Assessment and Plan Assessment: Acute UTI, Pseudomonas aeruginosa, Proteus Mirabilis, cystitis Acute metabolic encephalopathy, initially attributed to infection, acute renal failure; worsening-etiology unclear, ruling out acute CVA. Neurology workup in progress. Antibiotic adjusted for potential cephalosporin side effect. Diarrhea, resolved. Constipation Dehydration Hypotension,on midodrine Acute on chronic renal failure stage IV, secondary to acute UTI, urinary retention, possibly cardiorenal syndrome. Metabolic acidosis secondary to the above, status post bicarb drip. On oral bicarb Urinary retention requiring Felder catheter placement. No hydronephrosis. Right basilar infiltrate,consolidation, persistent prominence of the left hilum, reported per chest x-ray. COPD Moderate to severe pulmonary hypertension Chronic hypoxic respiratory failure on home oxygen Chronic heart failure with reduced EF. Echo of 11/30/2023 reporting severe impaired LV systolic function with global hypokinesis, EF 30 to 35% History of nonischemic cardiomyopathy Anemia of chronic disease Persistent atrial fibrillation History of tissue mitral valve [facility], [facility] tricuspid [facility], [facility] 2015 [facility] ; echo 11/30/2023 reporting moderate tricuspid regurgitation Hypertension Hyperlipidemia Peripheral vascular disease History of abdominal aortic aneurysm History of rheumatic fever Plan continue on current medication regimen ,monitoring and symptomatic treatment. Neurology following, workup in progress for possible CVA .pending EEG, MRI of brain.cardiology consulted .antibiotics as per ID .maintain aggressive pulmonary toileting, nebulized bronchodilators scheduled and as needed. close monitoring of renal function, hemoglobin and platelets with repeat labs ordered for a.m. Coumadin dosing as per pharmacy dosing.PT/OT. The impression and plan of care has been dictated as directed. : I performed a history and examination of this patient, discussed the same with the dictator. I agree with the dictator's note ,documented as a scribe. Any additional findings or plans will be noted.
--- NOTE | 2023-12-02 15:47 | P.PN ---
Subjective Progress Note Date: 12/02/23 Patient is seen by Dr. Rogelio Patrick. Please refer to his note for details. Patient is a 83-year-old male with acute UTI. Patient has reported aphasia and left-sided weakness. However on examination patient was noted to have generalized weakness and was just screaming. Dr. Patrick has initiated stroke wor kup and EEG. Patient is laying in the bed. He has oxygen by nasal cannula. He is slightly short of breath. He is slightly tachypneic. Patient denies headache. Patient's grand niece was present, who provided with a history as well. Patient was admitted for UTI. He has become very confused while in the hospital. At baseline patient does have end-stage COPD and CHF and is usually short of br eath. This has been going on for almost a year, progressively getting worse. He uses a walker at home, lives by himself. There is no previous history of seizures. Patient for the last 2 days was alert and orient x 0. Patient's grand niece mentions that he is very interesting to talk to. He is very knowledgeable at baseline, and this is much change. Patient was started on hemodialysis, the first 1 was given on Saturday, then yesterday on Saturday and today will be the third session of hemodialysis. She has noticed she is about 25% better. Patient's grand niece states that he is not nearly baseline. Some of the work-up consisted of: His creatnine yesterday is 4.59 and baseline is below 2. Today is 3.6, much improved. TSH is 1.350 Ammonia is less than 9 +ve acute UTI. Urine culture is pseudomonas aeruginosa, proteus mirabilis CT head today reported as mild age-appropriate atrophy. No acute intra or extral axial hemorrhage. No mass effect or shift of midline structure. Tiny remote lacunar infarct in left basal ganglia. I personally reviewed CT and agree there is no acute or subacute ischemic stroke. Carotid duplex is reported as mild carotid bifurcation plaque resulting in minimal stenosis. No hemodynamically significant stenosis based on peak systolic velocity and ratio 2D echo was reported as severely impaired left ventricular systolic function with global hypokinesis. Mitral valve by prosthesis with mild tricuspid regurgitation. Tricuspid valve repair with moderate tricuspid regurgitation and moderate pulmonary hypertension. Moderate aortic regurgitation. Objective - Vital Signs Vital signs: Vital Signs Temp 98.0 F 12/02/23 07:57 Pulse 123 H 12/02/23 12:33 Resp 16 12/02/23 07:57 BP 119/60 12/02/23 07:57 Pulse Ox 94 L 12/02/23 07:57 FiO2 Intake & Output 12/01/23 12/02/23 12/02/23 18:59 06:59 18:59 Intake Total 500 Output Total 1900 Balance -1400 Intake: Hemodialysis 500 Output: Urine 400 Hemodialysis 1000 Hemodialysis Net Amount 500 Other: Voiding Method Indwelling Catheter Indwelling Catheter Indwelling Catheter - Exam Patient is alert and awake, in mild respiratory distress. Patient is slightly tachypneic, using oxygen by nasal cannula. Able to tell me his name very clearly including his middle initial. Patient states that he lives in [facility]. Patient could not tell the current month or the year. He knows that he is 81, but he stops, does not see 83. His mentation is slow, prolonged latency time to answer questions. Patient did smile and make some humorous comments, and his grand niece feels that he is typically like this, very generally and pleasant. He is definitely improving. Patient pupils are equal, round and reacting, face is symmetric. Patient has very significant myoclonic jerks of outstretched hands. He appears generalized weak. - Labs CBC & Chem 7: 11/30/23 10:04 12/01/23 05:09 Labs: Abnormal Lab Results - Last 24 Hours (Table) 12/02/23 Range/Units 05:26 PT 23.1 H (10.0-12.5) sec INR 2.3 H (<1.2) Assessment and Plan Assessment: This is an 83 year-old gentleman who presents to the ED because of acute UTI who is also having worsening of acute on chronic renal failure, has developed altered mental status and generalized weakness. Altered mental status, likely due to toxic-metabolic encephalopathy due to worsening of kidney function and acute UTI and medication effect (Cephalosporin). CT head negative for any acute or subacute ischemic stroke. Carotid duplex is negative for significant carotid stenosis. Abnormal EEG, with evidence of triphasic waves, which at times becomes rhythmic, concerning for seizure tendency. Rule out cefepime induced neurotoxicity. Acute on chronic kidney insuffiency Acute UTI (urine culture pseudomonas aeruginosa, proteus mirabilis). Atrial fibrillation on coumadin Left ventricular systolic function with global hypokinesis and moderate pulmonary pulmonary hypertension as well as moderate aortic regurgitation on 2D echo Plan: EEG was performed, which was very abnormal due to background slowing, suggestive of moderate to severe encephalopathy, also evidence of frequent high amplitude waves, which appears to have some triphasic quality, but becomes regular, rhythmic at 3 Hz. Nonconvulsive status also in the differential. Clinically however this is probably due to severe metabolic encephalopathy. Clinically patient also has significant myoclonic jerking. Since patient has been started on hemodialysis on Saturday, 2 days ago, his mentation is much improved, about 25%. In the last couple days, he was not able to speak, but now he can speak as mentioned above in examination. Cefepime has been discontinued and patient started on vancomycin. We will follow clinically. As patient has improved already, we will hold off on antiepileptic medication. We will consider repeating EEG in 1 to 2 days, and also follow patient clinically. Patient's B12 is 866, folate 10.5, TSH 1.35. Lipid panel with cholesterol 166, LDL 103, HDL 37, triglycerides 128. Await MRI Brain. Patient is on Warfarin, INR therapeutic 2.3. Nephrology is on board. I.D. is on board. Cefepime has been switched to vancomycin. Patient has severely impaired left ventricular systolic function with global hypokinesis and moderate pulmonary pulmonary hypertension as well as moderate aortic regurgitation. If patient does have a stroke then would recommend cardiology consultation Will defer the rest of medical management to primary and other specialist. Discussed with nephrology, and patient's grand niece in detail.
[2023-12-02] MEDS: WARFARIN 2 MG TAB PO ONE (18:23)
--- NOTE | 2023-12-02 21:03 | EEG ---
ELECTROENCEPHALOGRAM REPORT PREAMBLE: This is an 83-year-old male with altered mental status, rule out seizure. The patient came to the ER for acute UTI. The patient is having expressive aphasia. The patient had an episode of being confused. CURRENT MEDICATIONS: 1. Pepcid. 2. Iron. 3. Ativan. 4. ProAmatine. 5. MiraLAX. 6. Flomax. EEG FINDINGS: This is a 21-channel digital EEG recorded with video component, utilizing 10/20 international system with referential and bipolar montages. The recording starts with presence of bilaterally symmetric, high amplitude-sharp waves seen at about 3 hertz. Intermixed is disorganized background, consists of mixed delta and theta frequency activity seen in bihemispheric region. Background does not seem to be reactive to eye opening or closing. Different stages of sleep were not seen. This high amplitude sharp appearing waves were seen intermittently, frequently during the study. No clear electrographic seizure however was recorded. IMPRESSION: This is an abnormal EEG due to, 1. Background slowing, suggestive of moderate to severe encephalopathy. 2. Presence of high amplitude sharp appearing waves, at 3 hertz seen intermittently, frequently during this study, suggestive of underlying cortical irritability and tendency for seizures. Nonconvulsive status also in the differential. Clinical correlation is recommended. Followup EEG and perhaps continuous EEG monitoring recommended. MMODL / LANDONN: [id number] /
[2023-12-03 05:40] LABS: INR 2.5 (<1.2); Prothrombin Time 24.4 sec (10.0-12.5)
[2023-12-03 08:33] LABS: Basophils # (A) 0.05 X 10*3/uL (0.00-0.10); Basophils % (A) 0.5 %; Eosinophils # (A) 0.08 X 10*3/uL (0.04-0.35); Eosinophils % (A) 0.8 %; HCT 26.8 % (39.6-50.0); HGB 8.3 g/dL (13.0-17.0); Lymphocytes # (A) 0.47 X 10*3/uL (0.90-5.00); Lymphocytes % (A) 4.8 %; MCH 29.6 pg (27.0-32.0); MCV 95.7 FL (80.0-97.0); Mean Platelet Volume 10.5 FL (9.5-12.2); Monocytes # (A) 1.23 X 10*3/uL (0.20-1.00); Monocytes % (A) 12.5 %; NRBC Per 100 WBC 0 X 10*3/uL (0.00-0.01); Neutrophils # (A) 7.98 X 10*3/uL (1.80-7.70); Neutrophils % (A) 80.8 %; Platelet Count 146 X 10*3/uL (140-440); RDW 17.8 % (11.5-14.5); WBC 9.87 X 10*3/uL (4.50-10.00)
[2023-12-03 08:51] LABS: BUN/Creat Ratio 13.75 Ratio (12.00-20.00); Calcium 7.8 mg/dL (8.7-10.3); Chloride 98 mmol/L (96-109); Glucose 59 mg/dL (70-110); Sodium 137 mmol/L (135-145)
--- NOTE | 2023-12-03 09:44 | P.CRDCN ---
History of Present Illness Consult date: 12/03/23 Reason for Consult (text): A-fib with RVR, questionable CVA, CHF History of present illness: This is an 83-year-old male patient of Dr. Kramer with past medical history of longstanding persistent atrial fibrillation on Coumadin, history of mitral valve replacement, pulmonary hypertension, hypertension, chronic systolic heart failure, mixed hyperlipidemia, COPD. We have been asked to evaluate the patient for A-fib with RVR, possible CVA, CHF. Patient presented on 11/22 with diarrhea and treated for acute kidney injury secondary to obstructive uropathy and urinary tract infection with Proteus. Over the weekend, he developed mental status changes for which neurology workup was added. During his hospitalization, diarrhea has resolved. Renal function has significantly improved. His mental status changes have also improved. According to the patient's nurse, patient did have some tachycardia yesterday when he was seen by his attending. Patient denies having chest pain, shortness of breath, palpitations or dizziness. Patient is not currently receiving his oral medications as he is waiting for speech therapy evaluation. Patient is not on telemetry. Chest x-ray: 11/29 chronic interstitial changes with COPD no definite acute p rocess, post heart valve prosthesis with sternotomy Echocardiogram reveals severely impaired left ventricular systolic function and global hypokinesis with EF of 30 to 35%, mitral valve bioprosthesis with mild mitral regurgitation, tricuspid valve repair with moderate tricuspid regurgitation and moderate pulmonary hypertension Laboratory studies on 12/02: WBC 9.8, hemoglobin 8.3. INR 2.5. Sodium 137, potassium 4, BUN 33 creatinine 2.4. Triglycerides 128, cholesterol 166, LDL 103, HDL 37. TSH 1.35. Home cardiac medications: Bisoprolol 5 mg daily, Lasix 40 mg daily, midodrine 5 mg 3 times daily, Nitrostat as needed, warfarin 1 mg and 4 mg tablets. According to office note dated 10/08/2023, patient is also on Entresto 49-51 mg twice daily, Jardiance 10 mg daily. Review Of Systems: At the time of my exam: CONSTITUTIONAL: Denies fever or chills. HEENT: Denies blurred vision, vision changes, or eye pain. Denies hemoptysis CARDIOVASCULAR: Denies chest pain. Denies orthopnea. Denies PND. Denies palpitations RESPIRATORY: Denies shortness of breath. GASTROINTESTINAL: Denies abdominal pain. Denies nausea or vomiting. HEMATOLOGIC: Denies bleeding disorders. GENITOURINARY: Denies any blood in urine. SKIN: Denies puritis. Denies rash. Physical examination: Gen: This is a 83-year-old male in no acute distress VS: reviewed HEENT: Head is atraumatic, normocephalic. Pupils equal, round. Sclerae is anicteric. NECK: Supple. No JVD. LUNGS: Bilateral wheezing. No intercostal retractions. HEART: Irregular rate and rhythm. Systolic ejection murmur ABDOMEN: Soft No tenderness. EXTREMITIES: No pedal edema. No calf tenderness. NEUROLOGICAL: Patient is awake, alert and oriented x3. Assessment: Persistent atrial fibrillation No evidence of acute CHF Toxic metabolic encephalopathy Acute kidney injury due to obstructive uropathy Urinary tract infection Mitral valve replacement, tricuspid valve repair Hypertension Chronic systolic heart failure Mixed hyperlipidemia COPD Plan: Continue current cardiac medications: Bisoprolol 5 mg daily, Coumadin--patient is not taking oral medications and waiting for speech evaluation Continue to monitor INR, pharmacy is dosing Coumadin Add telemetry monitoring Further recommendations to follow based upon clinical course Thank you kindly for this consultation. Nurse practitioner note has been reviewed, I agree with documented findings and plan of care. Patient was seen and examined. Past Medical History Past Medical History: Atrial Fibrillation, Heart Failure, COPD, GI Bleed, Hyperlipidemia, Pneumonia, Renal Disease, Skin Disorder, Vascular Disorder Additional Past Medical History / Comment(s): GI bleed, gastritis, gastric ectasia, CKD stage III, past abdominal aortic aneurysm/had stent placed, varicosities, PVD, past shingellis and occasionally will have R flank nerve pain, BPH. Covid 09/2022 History of Any Multi-Drug Resistant Organisms: MRSA Date of last positivie culture/infection: 03/19/22 MDRO Source:: Urine Past Surgical History: Cardiac Valve Replacement, Cholecystectomy, Heart Catheterization Additional Past Surgical History / Comment(s): Stent placed for lower abd aortic aneurysym, mitral valve replacement/bicuspid repair, EGD with ablation, colonoscopy, excision L cheek lesion/mass and lesion from scalp/all benign, ZEPHER VALVE PLACED 2 YRS AGO AT [facility] Past Anesthesia/Blood Transfusion Reactions: No Reported Reaction Date of Last Stent Placement:: 2015 Past Psychological History: Anxiety Smoking Status: Former smoker Past Alcohol Use History: Occasional Past Drug Use History: None Reported - Past Family History Mother Family Medical History: Myocardial Infarction (CT) Additional Family Medical History / Comment(s): at a young age. Father Family Medical History: Hypertension Medications and Allergies Home Medications Medication Instructions Recorded Confirmed Type Fluticasone Propion/Salmeterol 1 puff INHALATION RT-BID 05/05/22 11/23/23 History [Wixela 100-50 Inhub] Sertraline [Zoloft] 50 mg PO HS 05/05/22 11/23/23 History Warfarin [Coumadin] 1 mg PO [id number]@199907/12/22 11/23/23 History Tamsulosin [Flomax] 0.4 mg PO DAILY 08/30/22 11/23/23 History Warfarin Sodium 4 mg PO [id number]@199908/30/22 11/23/23 History Bisoprolol [Zebeta] 5 mg PO DAILY 05/01/23 11/23/23 History Nitroglycerin Sl Tabs [Nitrostat] 0.4 mg SUBLINGUAL Q5M PRN tab 07/26/23 11/23/23 Rx Tiotropium 2.5 Mcg/Puff [Spiriva 2 puff INHALATION RT-DAILY 10/04/23 11/23/23 History Respimat 2.5 Mcg] Ferrous Sulfate [Iron (65 MG 325 mg PO BID 11/23/23 11/23/23 History Elemental)] Ipratropium-Albuterol Nebulize 3 ml INHALATION RT-QID PRN 11/23/23 11/23/23 History [Duoneb 0.5 mg-3 mg/3 ml Soln] predniSONE 2.5 mg PO DAILY 11/23/23 11/23/23 History Acetaminophen Tab [Tylenol] 650 mg PO Q6HR PRN tab 11/29/23 Rx Calcium Carbonate [Tums] 1,000 mg PO Q4HR PRN tab 11/29/23 Rx Cefepime [Maxipime] 1 gm IVPB Q12H #20 each 11/29/23 Rx Darbepoetin Ashish [Aranesp] 40 mcg SQ Q7D each 11/29/23 Rx Famotidine [Pepcid] 20 mg PO DAILY tab 11/29/23 Rx Furosemide [Lasix] 20 mg PO DAILY tab 11/29/23 Rx Ipratropium-Albuterol Nebulize 3 ml INHALATION Q4H PRN each 11/29/23 Rx [Duoneb 0.5 mg-3 mg/3 ml Soln] Ipratropium-Albuterol Nebulize 3 ml INHALATION RT-QID each 11/29/23 Rx [Duoneb 0.5 mg-3 mg/3 ml Soln] LORazepam [Ativan] 0.5 mg PO BID PRN 3 Days #6 tab 11/29/23 Rx Mag Hydrox/Al Hydrox/Simeth 15 ml PO Q6HR PRN ml 11/29/23 Rx [Maalox] Midodrine [ProAmatine] 5 mg PO AC-TID tab 11/29/23 Rx Sodium Bicarbonate Tab 650 mg PO BID tab 11/29/23 Rx polyethylene glycoL 3350 [Miralax] 17 gm PO DAILY packet 11/29/23 Rx Allergies Allergy/AdvReac Type Severity Reaction Status Date / Time empagliflozin Allergy Dyspnea Verified 11/23/23 09:10 [From Jardiance] iodine AdvReac Unknown Verified 11/23/23 09:10 morphine AdvReac Hallucinati Verified 11/23/23 09:10 ons Patches on chest Allergy Swelling, Uncoded 10/04/23 14:02 See Comment pain med (can't remember AdvReac Hallucinati Uncoded 10/04/23 14:02 name) ons Physical Exam Vitals: Vital Signs Temp Pulse Pulse Resp BP Pulse Ox 12/03/23 07:22 97.6 F 89 16 117/63 96 12/03/23 02:47 97.4 F L 75 19 116/62 98 12/03/23 00:33 97.9 F 114 H 18 116/57 98 12/02/23 20:51 96 12/02/23 20:36 92 12/02/23 19:20 97.7 F 92 19 122/64 96 12/02/23 16:54 95 12/02/23 16:43 93 12/02/23 14:00 98.9 F 131 H 20 113/59 94 L 12/02/23 12:33 123 H 12/02/23 12:26 115 H 12/02/23 09:20 82 12/02/23 09:08 76 12/02/23 07:57 98.0 F 89 16 119/60 94 L Intake and Output 12/02/23 12/03/23 12/03/23 22:59 06:59 14:59 Intake Total 500 Output Total 200 1500 Balance -200 -1000 Intake: Hemodialysis 500 Output: Urine 200 Hemodialysis 1000 Hemodialysis Net Amount 500 Other: Voiding Method Indwelling Catheter # Bowel Movements 1 Results 12/03/23 04:35 12/03/23 04:35 Coagulation 12/03/23 Range/Units 04:35 PT 24.4 H (10.0-12.5) sec Current Medications Generic Name Dose Route Start Last Admin Trade Name Freq PRN Reason Stop Dose Admin Acetaminophen 650 mg 11/23/23 07:37 11/28/23 21:04 Acetaminophen Tab 325 Mg Tab PO 650 mg Q6HR PRN Administration Mild Pain or Fever > 100.5 Al Hydroxide/Mg Hydroxide 15 ml 11/23/23 07:37 Mag Hydrox/Al Hydrox/Simeth 30 Ml Cup PO Q6HR PRN Indigestion Albuterol/Ipratropium 3 ml 11/27/23 16:00 12/02/23 20:36 Ipratropium-Albuterol 3 Ml Neb INHALATION 3 ml RT-QID RAMONA Administration Albuterol/Ipratropium 3 ml 11/27/23 13:55 11/28/23 05:49 Ipratropium-Albuterol 3 Ml Neb INHALATION 3 ml RT-Q2H PRN Administration Shortness Of Breath Or Wheezing Bisoprolol Fumarate 5 mg 11/27/23 14:00 12/02/23 08:08 Bisoprolol 5 Mg Tab PO Not Given DAILY [facility] Budesonide/Formoterol Fumarate 2 puff 11/23/23 20:00 12/02/23 20:36 Symbicort 80-4.5 Mcg Inhaler INHALATION 2 puff RT-BID RAMONA Administration Calcium Carbonate/Glycine 1,000 mg 11/23/23 07:37 Calcium Carbonate 500 Mg Chewable PO Q4HR PRN Dyspepsia Darbepoetin Ashish 40 mcg 11/27/23 14:00 11/27/23 15:30 Darbepoetin Ashish 40 Mcg/0.4 Ml Syringe SQ 40 mcg Q7D RAMONA Administration Famotidine 20 mg 11/24/23 09:00 12/02/23 08:08 Famotidine 20 Mg Tab PO Not Given DAILY RAMONA Ferrous Sulfate 325 mg 11/23/23 10:00 12/02/23 22:17 Ferrous Sulfate 325 Mg Tab PO Not Given BID RAMONA Sodium Chloride 1,000 mls @ 50 mls/hr 11/30/23 11:30 12/03/23 04:19 Saline 0.45% IV 50 mls/hr .Q20H RAMONA Administration Piperacillin Sod/Tazobactam 100 mls @ 25 mls/hr 12/02/23 13:00 12/03/23 00:11 Sod 3.375 gm/ Sodium Chloride IVPB 25 mls/hr Q12HR RAMONA Administration Protocol Lorazepam 0.5 mg 11/23/23 09:50 11/28/23 21:04 Lorazepam 0.5 Mg Tab PO 0.5 mg BID PRN Administration Anxiety Midodrine 5 mg 11/29/23 12:30 12/03/23 06:43 Midodrine 5 Mg Tab PO Not Given AC-TID RAMONA Miscellaneous Information 0 each 11/23/23 12:56 Warfarin Per Pharmacy MISCELLANE DIRECTED PRN ANTICOAG Naloxone HCl 0.2 mg 11/23/23 07:37 Naloxone 0.4 Mg/Ml 1 Ml Vial IV Q2M PRN Opioid Reversal Nitroglycerin 0.4 mg 11/23/23 09:50 Nitroglycerin Sl Tabs 0.4 Mg Tab SUBLINGUAL Q5M PRN Chest Pain Polyethylene Glycol 17 gm 11/26/23 13:30 12/02/23 08:08 Polyethylene Glycol 3350 17 Gm Powd.Pack PO Not Given DAILY RAMONA Prednisone 2.5 mg 11/23/23 18:12 12/02/23 08:08 Prednisone 2.5 Mg Tab PO Not Given DAILY RAMONA Sertraline HCl 50 mg 11/23/23 21:00 12/02/23 22:17 Sertraline 50 Mg Tab PO Not Given HS RAMONA Sodium Bicarbonate 650 mg 11/27/23 12:45 12/02/23 22:17 Sodium Bicarbonate Tab 650 Mg Tab PO Not Given BID RAMONA Tamsulosin HCl 0.4 mg 11/23/23 10:00 12/02/23 08:09 Tamsulosin 0.4 Mg Cap.Er.24h PO Not Given DAILY RAMONA Intake and Output 12/02/23 12/03/23 12/03/23 22:59 06:59 14:59 Intake Total 500 Output Total 200 1500 Balance -200 -1000 Intake: Hemodialysis 500 Output: Urine 200 Hemodialysis 1000 Hemodialysis Net Amount 500 Other: Voiding Method Indwelling Catheter # Bowel Movements 1 11/30/23 10:04 12/01/23 05:09
--- NOTE | 2023-12-03 14:00 | P.PN ---
Subjective patient is seen for follow-up for acute kidney injury. Started on hemodialysis on 11/30/2023 due to worsening renal function and concern for uremia. Status post hemodialysis yesterday. Mentation has improved significantly today. Patient states that he does not want to continue with dialysis. Urine output remains low. Family is present at bedside and they would like to discuss again with other family members regarding continuation of renal replacement therapy. Patient is quite adamant that he does not want to continue with dialysis. Objective - Vital Signs Vital signs: Vital Signs Temp 97.6 F 12/03/23 07:22 Pulse 90 12/03/23 11:21 Resp 16 12/03/23 07:22 BP 117/63 12/03/23 07:22 Pulse Ox 99 12/03/23 07:54 FiO2 Intake & Output 12/02/23 12/03/23 12/03/23 18:59 06:59 18:59 Intake Total 500 Output Total 200 1500 Balance -200 -1000 Intake: Hemodialysis 500 Output: Urine 200 Hemodialysis 1000 Hemodialysis Net Amount 500 Other: Voiding Method Indwelling Catheter Indwelling Catheter # Bowel Movements 1 - Exam patient is awake, comfortable, no acute distress. Examination of the heart S1 and S2 Examination of the lungs bilateral breath sounds are heard Abdomen is soft nontender Examination of lower extremity shows no significant edema - Labs CBC & Chem 7: 12/03/23 04:35 12/03/23 04:35 Labs: Abnormal Lab Results - Last 24 Hours (Table) 12/03/23 12/03/23 12/03/23 Range/Units 04:35 04:35 04:35 RBC 2.80 L (4.40-5.60) X 10*6/uL Hgb 8.3 L (13.0-17.0) g/dL Hct 26.8 L (39.6-50.0) % MCHC 31.0 L (32.0-37.0) g/dL RDW 17.8 H (11.5-14.5) % Immature Gran # 0.06 H (0.00-0.04) X 10*3/uL Neutrophils # 7.98 H (1.80-7.70) X 10*3/uL Lymphocytes # 0.47 L (0.90-5.00) X 10*3/uL Monocytes # 1.23 H (0.20-1.00) X 10*3/uL PT 24.4 H (10.0-12.5) sec INR 2.5 H (<1.2) Anion Gap 17.00 H (4.00-12.00) mmol/L BUN 33.0 H (9.0-27.0) mg/dL Creatinine 2.4 H (0.6-1.5) mg/dL Est GFR (CKD-EPI) 26 L (>=60) Glucose 59 L (70-110) mg/dL Calcium 7.8 L (8.7-10.3) mg/dL Assessment and Plan Assessment: 1. Acute kidney injury secondary to obstructive uropathy and infection. Creatinine near 1 in May 2023. Renal function worse with creatinine 4.59 November 30, 2023. Started on hemodialysis November 30 2023 due to concern for uremia. Urine output about 200 cc in the last 24 hours. No hydronephrosis noted on CT. 2. Proteus UTI on antibiotics. 3. Chronic systolic CHF ejection fraction of 30 to 35%, mild to moderate aortic stenosis/tricuspid regurgitation and moderate to severe aortic regurgitation noted on echocardiogram done in July 2023. 4. Metabolic acidosis secondary to acute kidney injury and IV fluids. Status post bicarb drip. Improved. Now on oral bicarb. 5. Urinary retention. Has Felder catheter. On Flomax. Seen by urology. No further interventions planned. Felder management per urology. 6. Anemia. Avoid IV iron in the setting of acute infection. On Aranesp. Plan: Hold hemodialysis until final decision is made regarding continuation of renal replacement therapy. Continue with Aranesp Continue with Felder catheter. Continue antibiotics. Encouraged increased oral intake. May continue with IV fluids at 50 mL an hour. IV Lasix 1 to help with urine output.
--- NOTE | 2023-12-03 14:12 | P.PN ---
Subjective Progress Note Date: 12/03/23 Principal diagnosis: Reason for follow-up is a urinary tract infection Patient is a 83-year-old male with a past medical history significant for hyperlipidemia COPD heart failure with atrial fibrillation BPH presenting to the hospital for evaluation of diarrhea also difficulty urination requiring Felder catheter placement did have a positive UA and urine has been finalized with drug-resistant Proteus prompting this consultation. On today's evaluation that is 12/03/2023,the patient remains to be afebrile, patient is on 4 L nasal cannula supplemental oxygen and denies any shortness of breath no chest pain or any worsening cough.Patient denies having any nausea or vomiting, no abdominal pain and no diarrhea, the patient is more awake alert today and in good spirit. The patient white count is 9.87 creatinine is 2.4 Objective - Vital Signs Vital signs: Vital Signs Temp 97.6 F 12/03/23 07:22 Pulse 90 12/03/23 11:21 Resp 16 12/03/23 07:22 BP 117/63 12/03/23 07:22 Pulse Ox 99 12/03/23 07:54 FiO2 Intake & Output 12/02/23 12/03/23 12/03/23 18:59 06:59 18:59 Intake Total 500 Output Total 200 1500 Balance -200 -1000 Intake: Hemodialysis 500 Output: Urine 200 Hemodialysis 1000 Hemodialysis Net Amount 500 Other: Voiding Method Indwelling Catheter Indwelling Catheter # Bowel Movements 1 - Exam GENERAL DESCRIPTION: An elderly male lying in bed in no distress RESPIRATORY SYSTEM: Unlabored breathing , decreased breath sounds at bases HEART: S1 S2 regular rate and rhythm , ABDOMEN: Soft , no tenderness EXTREMITIES: No edema feet - Labs CBC & Chem 7: 12/03/23 04:35 12/03/23 04:35 Labs: Abnormal Lab Results - Last 24 Hours (Table) 12/03/23 12/03/23 12/03/23 Range/Units 04:35 04:35 04:35 RBC 2.80 L (4.40-5.60) X 10*6/uL Hgb 8.3 L (13.0-17.0) g/dL Hct 26.8 L (39.6-50.0) % MCHC 31.0 L (32.0-37.0) g/dL RDW 17.8 H (11.5-14.5) % Immature Gran # 0.06 H (0.00-0.04) X 10*3/uL Neutrophils # 7.98 H (1.80-7.70) X 10*3/uL Lymphocytes # 0.47 L (0.90-5.00) X 10*3/uL Monocytes # 1.23 H (0.20-1.00) X 10*3/uL PT 24.4 H (10.0-12.5) sec INR 2.5 H (<1.2) Anion Gap 17.00 H (4.00-12.00) mmol/L BUN 33.0 H (9.0-27.0) mg/dL Creatinine 2.4 H (0.6-1.5) mg/dL Est GFR (CKD-EPI) 26 L (>=60) Glucose 59 L (70-110) mg/dL Calcium 7.8 L (8.7-10.3) mg/dL Assessment and Plan (1) Cystitis Current Visit: Yes Status: Acute Code(s): N30.90 - CYSTITIS, UNSPECIFIED WITHOUT HEMATURIA SNOMED Code(s): 65747620 (2) UTI (urinary tract infection) Current Visit: Yes Status: Acute Code(s): N39.0 - URINARY TRACT INFECTION, SITE NOT SPECIFIED SNOMED Code(s): 41959444 Plan: 1patient presented to hospital with diarrhea he also have some suprapubic discomfort did have a significantly positive UA concerning for symptomatic urinary tract infection likely from gram-negative pathogen with urine currently showing drug-resistant Proteus and Pseudomonas aeruginosa that is sensitive to cefepime 2-patient seem to have improvement in his mentation could be related to his dialysis as well as discoloration of cefepime will continue with Zosyn to finish his course of therapy Family the bedside questions answered Dictation was produced using [employer] dictation software. please excuse any grammatical, word or spelling errors. Time with Patient: Less than 30
--- NOTE | 2023-12-03 14:29 | P.PN ---
Subjective Progress Note Date: 12/03/23 11/23/23 Samir is a 83-year-old male well-known to the practice. He reports 3-day history of incessant diarrhea with multiple episodes of stools. He has a long history of atrial fibrillation, congestive heart failure, chronic renal failure, and a previous history of urinary retention with Felder catheter. Felder catheter was discontinued about 6 months ago and he had been doing well urinating without it. At this time he says he is urinating. He denies any chest pains pressures or shortness of breath that is different than any other time. He reports his stools are normal in color. Vitals are stable laboratory studies show a hyponatremia., He is chronically anemic hemoglobin is 9, BUN and creatinine are 83 and 2.47 with a GFR of 23. He is in good spirits. November 24, 2023: Patient is reevaluated today. He is feeling better overnight though he did have some confusion. He apparently called 911 while in his hospital bed. He says he realized his mistake right away and it was just after he was waking up that he felt very strange. He is feeling back to normal at this time. He denies any chest pains pressures. Shortness of breath is chronic and stable. Vital signs show temp 97.7 pulse oximetry 97% on 3 L O2, blood pressure is controlled. Labs this morning showed his sodium is now 139. Kidney function still little off with a BUN of 80 and a creatinine of 2.96. GFR is down to 19. Staff report postvoid residuals were 290 after urinating. He indicates he is urinating freely and does not wish to deal with a catheter at this time. He also reports no diarrhea overnight. Nephrology is following. 11/25/2023 worsening renal function, bicarb 15, BUN 74, creatinine 3.72, GFR 14, continues on bicarb drip. Nephrology following. blood sugars controlled. Viral studies negative, C. difficile negative. Sensorium significantly improved, alert and oriented x 3; staff reports patient is impulsive. Complains of constipation, no bowel movement in 2 days. Denies chest pain, palpitations or shortness of breath. Maintaining O2 sats in the 90s on 3 L nasal cannula. Echo from 07/25 reporting EF of 30 to 35%. Chest x-ray reported COPD with right basilar infiltrate/consolidation, persistent prominence of the left hilum. Brain CT reported no acute intracranial process. 11/26/2023 sensorium significantly improved. Maintained on bicarb drip, bicarb increased to 17, BUN 72, creatinine 3.9. Urine culture reporting gram-negative bacilli, Proteus Mirabilis, maintained on cefepime. Felder catheter for urinary retention. Evaluated by urology, recommendations noted including expecting this patient to have a higher postvoid residual of less than 500 mL. Maintaining O2 sats in the high 90s on 3 L nasal cannula. Hemoglobin decreased to 7.2, platelets 130. Denies chest pain, palpitations. INR 2.3 , anticoagulated on Coumadin .Reports very small bowel movement, MiraLAX changed from as needed to daily. 11/27/2023 mild tachycardia, low 1 teens,Bisprolol initiated. Coumadin per pharmacy dosing, INR elevated 3.7 today. Felder catheter present secondary to urinary retention. renal function worsening, creatinine 4.1. Bicarb 21.5, bicarb drip discontinued. maintaining O2 sats in the high 90s on 3 L nasal cannula. Continues on cefepime. 11/28/2023 IV fluids adjusted yesterday to half-normal saline at 75 mL, renal function slowly improving, bicarb 21.8, BUN 72, creatinine 3.9, estimated GFR 15. Urine output improving;Felder catheter.hepatitis serology nonreactive. Patient's bisoprolol resumed yesterday, heart rate better controlled. Nebulized bronchodilators adjusted yesterday with clinical improvement, continue O2 sats in the high 90s on 3 L nasal cannula, respiratory rate better controlled. Continues on cefepime, afebrile, normal WBC. Patient did not receive Coumadin last night as INR was elevated 3.7; INR decreased to 3.4, denies chest pain, palpitations or increase in shortness of breath. Hemoglobin 7.4, platelets 106. 11/29/2023 fluctuating mild confusion. Blood pressure soft, midodrine initiated. Afebrile, normal WBC, hemoglobin decreased to 7.7, platelets 109. No Coumadin last night, INR decreased to 2.3. Bicarb 22.5 BUN 38.2, creatinine increased to 4.1. Denies chest pain, palpitations. 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 Positive bowel movement last night on MiraLAX. 12/02/2023 alert, confused, recognizes PCP, converses minimally. Evaluated by neurology over the weekend for potential CVA, workup in progress, brain MRI pending. Hemodialysis initiated on 11/30/2023. Scheduled for repeat hemodialysis today. Antibiotics adjusted yesterday to Zosyn, as per ID secondary to possible uremia underlying effect of cefepime. 2D echo completed 11/30/2023 reporting severely impaired left ventricular systolic function, EF 30 to 35% with global hypokinesis, mitral valve bioprosthesis with mild tricuspid regurgitation, tricuspid valve repair with moderate tricuspid regurgitation and moderate pulmonary hypertension, moderate aortic regurgitation.Carotid Doppler reported no hemodynamic significant stenosis.Brain CT reported mild age-appropriate atrophy, no acute intra or extra-axial hemorrhage, no mass effect or shift of the midline structures, tiny remote lacunar infarct in left basal ganglia. 12/03/2023 sensorium significantly improved ,alert and oriented x 3 this morning, strength improved. Hemodialysis last night, possible repeat hemodialysis today. Bicarb 22, BUN decreased to 33, creatinine 2.4, estimated GFR increased to 26. brain MRI pending. patient exasperated regarding his prolonged illness. EEG completed yesterday reported abnormal due to background slowing, suggestive of moderate to severe encephalopathy, intermittent high amplitude sharp appearing waves at 3 Hz, suggestive of underlying cortical irritability and tendency for seizures, nonconvulsive status also on the differential. continues on Zosyn for acute UTI. afebrile, normal WBC, hemoglobin stable at 8.3, platelets 146. Maintaining O2 sats in the high 90s on 4 L nasal cannula. Passed swallow evaluation, currently eating pasta. Objective - Vital Signs Vital signs: Vital Signs Temp 97.6 F 12/03/23 07:22 Pulse 90 12/03/23 11:21 Resp 16 12/03/23 07:22 BP 117/63 12/03/23 07:22 Pulse Ox 99 12/03/23 07:54 FiO2 Intake & Output 12/02/23 12/03/23 12/03/23 18:59 06:59 18:59 Intake Total 500 Output Total 200 1500 Balance -200 -1000 Intake: Hemodialysis 500 Output: Urine 200 Hemodialysis 1000 Hemodialysis Net Amount 500 Other: Voiding Method Indwelling Catheter Indwelling Catheter # Bowel Movements 1 - Exam General: Alert and oriented x 3, sitting up in bed, no acute distress. HEENT: Normocephalic, atraumatic PERRLA [email or web address].mmm. Neck: Supple, no JVD Cardiac: Regular S1-S2, iregular rate and rhythm.Positive systolic murmur consistent with his aortic valve replacement Lungs: Diminished breath sounds bilaterally. Abdomen: Soft, nondistended ,nontender, no guarding, no rigidity, +BS. Extremes: [No edema no cyanosis no claudication normal pulses Skin: [No rash, warm and dry, Neurologic: Limited due to current confusion, generalized weakness, attempting to follow simple commands. - Labs CBC & Chem 7: 12/03/23 04:35 12/03/23 04:35 Labs: Abnormal Lab Results - Last 24 Hours (Table) 12/03/23 12/03/23 12/03/23 Range/Units 04:35 04:35 04:35 RBC 2.80 L (4.40-5.60) X 10*6/uL Hgb 8.3 L (13.0-17.0) g/dL Hct 26.8 L (39.6-50.0) % MCHC 31.0 L (32.0-37.0) g/dL RDW 17.8 H (11.5-14.5) % Immature Gran # 0.06 H (0.00-0.04) X 10*3/uL Neutrophils # 7.98 H (1.80-7.70) X 10*3/uL Lymphocytes # 0.47 L (0.90-5.00) X 10*3/uL Monocytes # 1.23 H (0.20-1.00) X 10*3/uL PT 24.4 H (10.0-12.5) sec INR 2.5 H (<1.2) Anion Gap 17.00 H (4.00-12.00) mmol/L BUN 33.0 H (9.0-27.0) mg/dL Creatinine 2.4 H (0.6-1.5) mg/dL Est GFR (CKD-EPI) 26 L (>=60) Glucose 59 L (70-110) mg/dL Calcium 7.8 L (8.7-10.3) mg/dL Assessment and Plan Assessment: Acute UTI, Pseudomonas aeruginosa, Proteus Mirabilis, cystitis Acute metabolic encephalopathy, initially attributed to infection, acute renal failure; worsening-etiology unclear, ruling out acute CVA. Neurology workup in progress. Antibiotic adjusted related to potential cephalosporin side effect. Abnormal EEG Diarrhea, resolved. Constipation Dehydration Hypotension,on midodrine Acute on chronic renal failure stage IV, secondary to acute UTI, urinary retention, possibly cardiorenal syndrome. Metabolic acidosis secondary to the above, status post bicarb drip. On oral bicarb Urinary retention requiring Felder catheter placement. No hydronephrosis. Right basilar infiltrate,consolidation, persistent prominence of the left hilum, reported per chest x-ray. COPD Moderate to severe pulmonary hypertension Chronic hypoxic respiratory failure on home oxygen Chronic heart failure with reduced EF. Echo of 11/30/2023 reporting severe impaired LV systolic function with global hypokinesis, EF 30 to 35% History of nonischemic cardiomyopathy Anemia of chronic disease Persistent atrial fibrillation History of tissue mitral valve replacement, February 2015 at [facility] History of tricuspid valve repair, February 2015 at [facility]; echo 11/30/2023 reporting moderate tricuspid regurgitation Hypertension Hyperlipidemia Peripheral vascular disease History of abdominal aortic aneurysm History of rheumatic fever Plan continue on current medication regimen ,monitoring and symptomatic treatment. Brain MRI pending.antibiotics as per ID .maintain aggressive pulmonary toileting, nebulized bronchodilators.IV push diuretics as per nephrology today .close monitoring of renal function, hemoglobin and platelets with repeat labs ordered for a.m. Coumadin dosing as per pharmacy dosing. The impression and plan of care has been dictated as directed. : I performed a history and examination of this patient, discussed the same with the dictator. I agree with the dictator's note ,documented as a scribe. Any additional findings or plans will be noted.
[2023-12-03] MEDS: FUROSEMIDE 10 MG/ML 10 ML VIAL IV STA (15:22)
[2023-12-03] MEDS ORDERED: ARTIFICIAL TEARS-HYPROMELLOSE DROPS 15 ML BTL BOTH EYES PRN (16:49)
[2023-12-03] MEDS: WARFARIN 2 MG TAB PO ONE (18:04)
--- NOTE | 2023-12-03 18:22 | IR ---
EXAMINATION TYPE: IR cvc insert non tunneled DATE OF EXAM: 11/30/2023 4:25 PM COMPARISON: Pre Operative Images if available both CT/MRI or plain film CLINICAL INDICATION: Male, 83 years old with history of RENAL FAILURE; TECHNIQUE: IR cvc insert non tunneled, multiple fluoroscopic images provided for procedure. Total fluoroscopy time: 0.1 minutes Total submitted images to PACS: 51 DAP: 12.86 uGym2 . FINDINGS: Fluoroscopic services for central venous catheter. Transvenous catheter tip projecting over the right L5 vertebral body. Gaseous dilation of colon. Quadrant cholecystectomy clips. Joint space narrowing osteophyte formation right hip compatible with osteoarthrosis. No evidence of fracture. IMPRESSION: 1. No evidence for intraoperative complication. 2. Please see the operative/procedural note for further details. [facility], , 12/03/2023 6:19 PM
[2023-12-04 05:13] LABS: Prothrombin Time 19.9 sec (10.0-12.5)
--- NOTE | 2023-12-04 08:52 | P.PN ---
Subjective Progress Note Date: 12/03/23 12/03/2023: Patient was seen for a follow-up. Patient's niece was present. Patient has remarkably improved. He is carrying on good conversation. He has been talking to the family members most of the day. Slightly some periods of confusion, but much improved. Patient's family has mentioned that patient's personality is intact. He is still very lively, and entertaining during conversation. No seizure. Patient states he does not want dialysis anymore. 12/02/2023: Patient is seen by Dr. Rogelio Patrick. Please refer to his note for details. Patient is a 83-year-old male with acute UTI. Patient has reported aphasia and left-sided weakness. However on examination patient was noted to have generalized weakness and was just screaming. Dr. Patrick has initiated stroke workup and EEG. Patient is laying in the bed. He has oxygen by nasal cannula. He is slightly short of breath. He is slightly tachypneic. Patient denies headache. Patient's grand niece was present, who provided with a history as well. Patient was admitted for UTI. He has become very confused while in the hospital. At baseline patient does have end-stage COPD and CHF and is usually short of dawson th. This has been going on for almost a year, progressively getting worse. He uses a walker at home, lives by himself. There is no previous history of seizures. Patient for the last 2 days was alert and orient x 0. Patient's grand niece mentions that he is very interesting to talk to. He is very knowledgeable at baseline, and this is much change. Patient was started on hemodialysis, the first 1 was given on Saturday, then yesterday on Saturday and today will be the third session of hemodialysis. She has noticed she is about 25% better. Patient's grand niece states that he is not nearly baseline. Some of the work-up consisted of: His creatnine yesterday is 4.59 and baseline is below 2. Today is 3.6, much improved. TSH is 1.350 Ammonia is less than 9 +ve acute UTI. Urine culture is pseudomonas aeruginosa, proteus mirabilis CT head today reported as mild age-appropriate atrophy. No acute intra or extral axial hemorrhage. No mass effect or shift of midline structure. Tiny remote lacunar infarct in left basal ganglia. I personally reviewed CT and agree there is no acute or subacute ischemic stroke. Carotid duplex is reported as mild carotid bifurcation plaque resulting in minimal stenosis. No hemodynamically significant stenosis based on peak systolic velocity and ratio 2D echo was reported as severely impaired left ventricular systolic function with global hypokinesis. Mitral valve by prosthesis with mild tricuspid regurgitation. Tricuspid valve repair with moderate tricuspid regurgitation and moderate pulmonary hypertension. Moderate aortic regurgitation. Objective - Vital Signs Vital signs: Vital Signs Temp 97.9 F 12/03/23 14:00 Pulse 90 12/03/23 20:19 Resp 20 12/03/23 20:19 BP 93/49 12/03/23 16:44 Pulse Ox 97 12/03/23 16:44 FiO2 Intake & Output 12/03/23 12/03/23 12/04/23 06:59 18:59 06:59 Intake Total 500 354 Output Total 1500 Balance -1000 354 Weight 50.802 kg Intake: Oral 354 Hemodialysis 500 Output: Hemodialysis 1000 Hemodialysis Net Amount 500 Other: Voiding Method Indwelling Catheter # Bowel Movements 1 - Exam Patient is alert and awake, in no respiratory distress. Patient's speech and language functions are completely normal. He is very pleasant. Latency time to answer questions has normalized. He is having full conversation with his family members. No seizure-like activity. Patient pupils are equal, round and reacting, face is symmetric. Patient moves all 4 extremities. - Labs CBC & Chem 7: 12/03/23 04:35 12/03/23 04:35 Labs: Abnormal Lab Results - Last 24 Hours (Table) 12/03/23 12/03/23 12/03/23 Range/Units 04:35 04:35 04:35 RBC 2.80 L (4.40-5.60) X 10*6/uL Hgb 8.3 L (13.0-17.0) g/dL Hct 26.8 L (39.6-50.0) % MCHC 31.0 L (32.0-37.0) g/dL RDW 17.8 H (11.5-14.5) % Immature Gran # 0.06 H (0.00-0.04) X 10*3/uL Neutrophils # 7.98 H (1.80-7.70) X 10*3/uL Lymphocytes # 0.47 L (0.90-5.00) X 10*3/uL Monocytes # 1.23 H (0.20-1.00) X 10*3/uL PT 24.4 H (10.0-12.5) sec INR 2.5 H (<1.2) Anion Gap 17.00 H (4.00-12.00) mmol/L BUN 33.0 H (9.0-27.0) mg/dL Creatinine 2.4 H (0.6-1.5) mg/dL Est GFR (CKD-EPI) 26 L (>=60) Glucose 59 L (70-110) mg/dL Calcium 7.8 L (8.7-10.3) mg/dL Assessment and Plan Assessment: This is an 83 year-old gentleman who presents to the ED because of acute UTI who is also having worsening of acute on chronic renal failure, has developed altered mental status and generalized weakness. Altered mental status, likely due to toxic-metabolic encephalopathy due to worsening of kidney function and acute UTI and medication effect (Cephalosporin toxicity). CT head negative for any acute or subacute ischemic stroke. Carotid duplex is negative for significant carotid stenosis. Abnormal EEG, with evidence of triphasic waves, which at times becomes rhythmic, concerning for seizure tendency. Rule out cefepime induced neurotoxicity. Acute on chronic kidney insuffiency Acute UTI (urine culture pseudomonas aeruginosa, proteus mirabilis). Atrial fibrillation on coumadin Left ventricular systolic function with global hypokinesis and moderate pulmonary pulmonary hypertension as well as moderate aortic regurgitation on 2D echo Plan: Patient's mentation has remarkably improved since he has been maintained on hemodialysis, and cefepime has been discontinued. No indication for repeat EEG, as his mentation has almost returned back to baseline. However patient is declining hemodialysis. He was informed that it is possible that worsening renal function could potentially again worsen his mental status. He understands the risks. Patient's family members are also trying to persuade him to continue hemodialysis, but he is declining. EEG was very abnormal due to background slowing, suggestive of moderate to severe encephalopathy, also evidence of frequent high amplitude waves, which appears to have some triphasic quality, but becomes regular, rhythmic at 3 Hz. Nonconvulsive status also in the differential. Clinically however this is pro bably due to severe metabolic encephalopathy. Clinically patient also had significant myoclonic jerking at that time. As patient's mentation has almost returned back to baseline, no indication for repeat EEG, or antiepileptic medication. Above pattern was likely related to severe toxic metabolic encephalopathy. Cefepime has been discontinued and patient started on vancomycin. Patient's B12 is 866, folate 10.5, TSH 1.35. Ammonia is < 9 Lipid panel with cholesterol 166, LDL 103, HDL 37, triglycerides 128. Patient's speech difficulty was likely due to TME. No evidence of CVA. Examination is nonfocal. We will cancel MRI. Patient is on Warfarin, INR therapeutic 2.5. Nephrology is on board. I.D. is on board. Cefepime has been switched to vancomycin. Patient has severely impaired left ventricular systolic function with global hypokinesis and moderate pulmonary pulmonary hypertension as well as moderate aortic regurgitation. If patient does have a stroke then would recommend cardiology consultation Will defer the rest of medical management to primary and other specialist. Discussed with family members.
--- NOTE | 2023-12-04 11:38 | P.PN ---
Subjective Progress Note Date: 12/04/23 Principal diagnosis: Reason for follow-up is a urinary tract infection Patient is a 83-year-old male with a past medical history significant for hyperlipidemia COPD heart failure with atrial fibrillation BPH presenting to the hospital for evaluation of diarrhea also difficulty urination requiring Felder catheter placement did have a positive UA and urine has been finalized with drug-resistant Proteus prompting this consultation. On today's evaluation that is 12/04/2023, the patient continues to be afebrile, the patient is on 3 L nasal cannula oxygen and breathing comfortably, the Pt denies having any chest pain or cough, the patient denies having any abdominal p ain no vomiting or any diarrhea mention feeling better. Patient did have INR of 2.0 Objective - Vital Signs Vital signs: Vital Signs Temp 97.6 F 12/04/23 07:34 Pulse 92 12/04/23 09:10 Resp 16 12/04/23 07:34 BP 106/58 12/04/23 07:34 Pulse Ox 96 12/04/23 08:57 FiO2 Intake & Output 12/03/23 12/04/23 12/04/23 18:59 06:59 18:59 Intake Total 354 118 Output Total 45 Balance 354 -45 118 Weight 50.802 kg Intake: Oral 354 118 Output: Urine 45 Other: Voiding Method Indwelling Catheter - Exam GENERAL DESCRIPTION: An elderly male lying in bed in no distress RESPIRATORY SYSTEM: Unlabored breathing , decreased breath sounds at bases HEART: S1 S2 regular rate and rhythm , ABDOMEN: Soft , no tenderness EXTREMITIES: No edema feet - Labs CBC & Chem 7: 12/03/23 04:35 12/03/23 04:35 Labs: Abnormal Lab Results - Last 24 Hours (Table) 12/04/23 Range/Units 04:25 PT 19.9 H (10.0-12.5) sec INR 2.0 H (<1.2) Assessment and Plan (1) Cystitis Current Visit: Yes Status: Acute Code(s): N30.90 - CYSTITIS, UNSPECIFIED WITHOUT HEMATURIA SNOMED Code(s): 66174337 (2) UTI (urinary tract infection) Current Visit: Yes Status: Acute Code(s): N39.0 - URINARY TRACT INFECTION, SITE NOT SPECIFIED SNOMED Code(s): 98667383 Plan: 1patient presented to hospital with diarrhea he also have some suprapubic discomfort did have a significantly positive UA concerning for symptomatic urinary tract infection likely from gram-negative pathogen with urine currently showing drug-resistant Proteus and Pseudomonas aeruginosa that is sensitive to cefepime 2-patient did have improvement in his mentation remains to be afebrile, will continue with Zosyn and monitor clinical course closely Dictation was produced using [employer] dictation software. please excuse any grammatical, word or spelling errors. Time with Patient: Less than 30
[2023-12-04 13:16] LABS: Anisocytosis Slight; HCT 27.4 % (39.0-53.0); HGB 8.2 gm/dL (13.0-17.5); Hypochromasia Marked; MCH 29.2 pg (25.0-35.0); MCHC 29.9 g/dL (31.0-37.0); MCV 97.7 fL (80.0-100.0); Macrocytosis Slight; Mean Platelet Volume 8.1; Platelet Count 141 k/uL (150-450); RBC 2.81 m/uL (4.30-5.90); RDW 17.6 % (11.5-15.5); WBC 6.1 k/uL (3.8-10.6)
[2023-12-04 13:33] LABS: African American GFR (CKD) 15 (>60 ml/min/1.73 sqM); Anion Gap 8 mmol/L; Blood Urea Nitrogen 71 mg/dL (9-20); Calcium 8.4 mg/dL (8.4-10.2); Carbon Dioxide 26 mmol/L (22-30); Chloride 103 mmol/L (98-107); Glucose 148 mg/dL (74-99); Non-African American GFR(CKD) 13 (>60 ml/min/1.73 sqM); Potassium 3.9 mmol/L (3.5-5.1); Sodium 137 mmol/L (137-145)
--- NOTE | 2023-12-04 13:34 | P.PN ---
Subjective Progress Note Date: 12/04/23 Reason for Consult (text): A-fib with RVR, questionable CVA, CHF History of present illness: This is an 83-year-old male patient of Dr. Kramer with past medical history of longstanding persistent atrial fibrillation on Coumadin, history of mitral valve replacement, pulmonary hypertension, hypertension, chronic systolic heart failure, mixed hyperlipidemia, COPD. We have been asked to evaluate the patient for A-fib with RVR, possible CVA, CHF. Patient presented on 11/22 with diarrhea and treated for acute kidney injury secondary to obstructive uropathy and urinary tract infection with Proteus. Over the weekend, he developed mental status changes for which neurology workup was added. During his hospitalization, diarrhea has resolved. Renal function has significantly improved. His mental status changes have also improved. According to the marysol pepper's nurse, patient did have some tachycardia yesterday when he was seen by his attending. Patient denies having chest pain, shortness of breath, palpitations or dizziness. Patient is not currently receiving his oral medications as he is waiting for speech therapy evaluation. Patient is not on telemetry. Chest x-ray: 11/29 chronic interstitial changes with COPD no definite acute process, post heart valve prosthesis with sternotomy Echocardiogram reveals severely impaired left ventricular systolic function and global hypokinesis with EF of 30 to 35%, mitral valve bioprosthesis with mild mi tral regurgitation, tricuspid valve repair with moderate tricuspid regurgitation and moderate pulmonary hypertension Laboratory studies on 12/02: WBC 9.8, hemoglobin 8.3. INR 2.5. Sodium 137, potassium 4, BUN 33 creatinine 2.4. Triglycerides 128, cholesterol 166, LDL 103, HDL 37. TSH 1.35. Home cardiac medications: Bisoprolol 5 mg daily, Lasix 40 mg daily, midodrine 5 mg 3 times daily, Nitrostat as needed, warfarin 1 mg and 4 mg tablets. According to office note dated 10/08/2023, patient is also on Entresto 49-51 mg twice daily, Jardiance 10 mg daily. 12/03 Patient is seen today in follow-up. His mental status seems to be stable. He denies having any chest pain. Patient is not on telemetry. Heart rate has been running in the 70s to 90s, blood pressure 106/58, pulse ox 99% on room air. Repeat blood work reveals hemoglobin 8.2, INR 2. Patient is now taking oral medications. Physical examination: Gen: This is a 83-year-old male in no acute distress VS: reviewed HEENT: Head is atraumatic, normocephalic. Pupils equal, round. Sclerae is anicteric. NECK: Supple. No JVD. LUNGS: Bilateral wheezing. No intercostal retractions. HEART: Irregular rate and rhythm. Systolic ejection murmur ABDOMEN: Soft No tenderness. EXTREMITIES: No pedal edema. No calf tenderness. NEUROLOGICAL: Patient is awake, alert and oriented x3. Assessment: Persistent atrial fibrillation, rate controlled No evidence of acute CHF Toxic metabolic encephalopathy Acute kidney injury due to obstructive uropathy Urinary tract infection Mitral valve replacement, tricuspid valve repair Hypertension Chronic systolic heart failure Mixed hyperlipidemia COPD Plan: Continue current cardiac medications: Bisoprolol 5 mg daily, Coumadin Continue to monitor INR, pharmacy is dosing Coumadin Change midodrine to as needed for systolic blood pressure less than 90 90 No further cardiac workup is planned at this time. Cardiology will sign off this case and follow on an as-needed basis. Please reconsult for any new concerns. Patient may follow-up in the office with Dr. Kramer in one to 2 weeks. Nurse practitioner note has been reviewed, I agree with documented findings and plan of care. Patient was seen and examined. Objective - Vital Signs Vital signs: Vital Signs Temp 97.6 F 12/04/23 07:34 Pulse 92 12/04/23 09:10 Resp 16 12/04/23 07:34 BP 106/58 12/04/23 07:34 Pulse Ox 96 12/04/23 08:57 FiO2 Intake & Output 12/03/23 12/04/23 12/04/23 18:59 06:59 18:59 Intake Total 354 118 Output Total 45 Balance 354 -45 118 Weight 50.802 kg Intake: Oral 354 118 Output: Urine 45 Other: Voiding Method Indwelling Catheter - Labs CBC & Chem 7: 12/04/23 12:59 12/03/23 04:35 Labs: Abnormal Lab Results - Last 24 Hours (Table) 12/04/23 Range/Units 04:25 PT 19.9 H (10.0-12.5) sec INR 2.0 H (<1.2)
--- NOTE | 2023-12-04 17:14 | P.PN ---
Subjective Progress Note Date: 12/04/23 11/23/23 Samir is a 83-year-old male well-known to the practice. He reports 3-day history of incessant diarrhea with multiple episodes of stools. He has a long history of atrial fibrillation, congestive heart failure, chronic renal failure, and a previous history of urinary retention with Felder catheter. Felder catheter was discontinued about 6 months ago and he had been doing well urinating without it. At this time he says he is urinating. He denies any chest pains pressures or shortness of breath that is different than any other time. He reports his stools are normal in color. Vitals are stable laboratory studies show a hyponatremia., He is chronically anemic hemoglobin is 9, BUN and creatinine are 83 and 2.47 with a GFR of 23. He is in good spirits. November 24, 2023: Patient is reevaluated today. He is feeling better overnight though he did have some confusion. He apparently called 911 while in his hospital bed. He says he realized his mistake right away and it was just after he was waking up that he felt very strange. He is feeling back to normal at this time. He denies any chest pains pressures. Shortness of breath is chronic and stable. Vital signs show temp 97.7 pulse oximetry 97% on 3 L O2, blood pressure is controlled. Labs this morning showed his sodium is now 139. Kidney function still little off with a BUN of 80 and a creatinine of 2.96. GFR is down to 19. Staff report postvoid residuals were 290 after urinating. He indicates he is urinating freely and does not wish to deal with a catheter at this time. He also reports no diarrhea overnight. Nephrology is following. 11/25/2023 worsening renal function, bicarb 15, BUN 74, creatinine 3.72, GFR 14, continues on bicarb drip. Nephrology following. blood sugars controlled. Viral studies negative, C. difficile negative. Sensorium significantly improved, alert and oriented x 3; staff reports patient is impulsive. Complains of constipation, no bowel movement in 2 days. Denies chest pain, palpitations or shortness of breath. Maintaining O2 sats in the 90s on 3 L nasal cannula. Echo from 07/25 reporting EF of 30 to 35%. Chest x-ray reported COPD with right basilar infiltrate/consolidation, persistent prominence of the left hilum. Brain CT reported no acute intracranial process. 11/26/2023 sensorium significantly improved. Maintained on bicarb drip, bicarb increased to 17, BUN 72, creatinine 3.9. Urine culture reporting gram-negative bacilli, Proteus Mirabilis, maintained on cefepime. Felder catheter for urinary retention. Evaluated by urology, recommendations noted including expecting this patient to have a higher postvoid residual of less than 500 mL. Maintaining O2 sats in the high 90s on 3 L nasal cannula. Hemoglobin decreased to 7.2, platelets 130. Denies chest pain, palpitations. INR 2.3 , anticoagulated on Coumadin .Reports very small bowel movement, MiraLAX changed from as needed to daily. 11/27/2023 mild tachycardia, low 1 teens,Bisprolol initiated. Coumadin per pharmacy dosing, INR elevated 3.7 today. Felder catheter present secondary to urinary retention. renal function worsening, creatinine 4.1. Bicarb 21.5, bicarb drip discontinued. maintaining O2 sats in the high 90s on 3 L nasal cannula. Continues on cefepime. 11/28/2023 IV fluids adjusted yesterday to half-normal saline at 75 mL, renal function slowly improving, bicarb 21.8, BUN 72, creatinine 3.9, estimated GFR 15. Urine output improving;Felder catheter.hepatitis serology nonreactive. Patient's bisoprolol resumed yesterday, heart rate better controlled. Nebulized bronchodilators adjusted yesterday with clinical improvement, continue O2 sats in the high 90s on 3 L nasal cannula, respiratory rate better controlled. Continues on cefepime, afebrile, normal WBC. Patient did not receive Coumadin last night as INR was elevated 3.7; INR decreased to 3.4, denies chest pain, palpitations or increase in shortness of breath. Hemoglobin 7.4, platelets 106. 11/29/2023 fluctuating mild confusion. Blood pressure soft, midodrine initiated. Afebrile, normal WBC, hemoglobin decreased to 7.7, platelets 109. No Coumadin last night, INR decreased to 2.3. Bicarb 22.5 BUN 38.2, creatinine increased to 4.1. Denies chest pain, palpitations. 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 Positive bowel movement last night on MiraLAX. 12/02/2023 alert, confused, recognizes PCP, converses minimally. Evaluated by neurology over the weekend for potential CVA, workup in progress, brain MRI pending. Hemodialysis initiated on 11/30/2023. Scheduled for repeat hemodialysis today. Antibiotics adjusted yesterday to Zosyn, as per ID secondary to possible uremia underlying effect of cefepime. 2D echo completed 11/30/2023 reporting severely impaired left ventricular systolic function, EF 30 to 35% with global hypokinesis, mitral valve bioprosthesis with mild tricuspid regurgitation, tricuspid valve repair with moderate tricuspid regurgitation and moderate pulmonary hypertension, moderate aortic regurgitation.Carotid Doppler reported no hemodynamic significant stenosis.Brain CT reported mild age-appropriate atrophy, no acute intra or extra-axial hemorrhage, no mass effect or shift of the midline structures, tiny remote lacunar infarct in left basal ganglia. 12/03/2023 sensorium significantly improved ,alert and oriented x 3 this morning, strength improved. Hemodialysis last night, possible repeat hemodialysis today. Bicarb 22, BUN decreased to 33, creatinine 2.4, estimated GFR increased to 26. brain MRI pending. patient exasperated regarding his prolonged illness. EEG completed yesterday reported abnormal due to background slowing, suggestive of moderate to severe encephalopathy, intermittent high amplitude sharp appearing waves at 3 Hz, suggestive of underlying cortical irritability and tendency for seizures, nonconvulsive status also on the differential. continues on Zosyn for acute UTI. afebrile, normal WBC, hemoglobin stable at 8.3, platelets 146. Maintaining O2 sats in the high 90s on 4 L nasal cannula. Passed swallow evaluation, currently eating pasta. 12-03 patient reporting he he does not want to continue with hemodialysis, family at bedside. They wish to discuss further with nephrology. Labs pending. INR 2. denies chest pain, palpitations or increase in shortness of breath. O2 sats in the high 90s on 3 L nasal cannula. Continues on Zosyn. No seizure activity. Objective - Vital Signs Vital signs: Vital Signs Temp 98 F 12/04/23 13:22 Pulse 92 12/04/23 16:03 Resp 12 10/02/24 13:22 BP 91/43 12/04/23 13:22 Pulse Ox 98 12/04/23 13:22 FiO2 Intake & Output 12/03/23 12/04/23 12/04/23 18:59 06:59 18:59 Intake Total 354 236 Output Total 45 100 Balance 354 -45 136 Weight 50.802 kg Intake: Oral 354 236 Output: Urine 45 100 Other: Voiding Method Indwelling Catheter Indwelling Catheter - Exam General: Alert and oriented x 3, sitting up in bed, no acute distress. HEENT: Normocephalic, atraumatic PERRLA EOMI.mmm. Neck: Supple, no JVD Cardiac: Regular S1-S2, iregular rate and rhythm.Positive systolic murmur consistent with his aortic valve replacement Lungs: Diminished breath sounds bilaterally. Abdomen: Soft, nondistended ,nontender, no guarding, no rigidity, +BS. Extremes: [No edema no cyanosis no claudication normal pulses Skin: [No rash, warm and dry, Neurologic: Cranial nerves II through XII grossly intact, generalized weakness - Labs CBC & Chem 7: 12/04/23 12:59 12/04/23 12:59 Labs: Abnormal Lab Results - Last 24 Hours (Table) 12/04/23 12/04/23 12/04/23 Range/Units 04:25 12:59 12:59 RBC 2.81 L (4.30-5.90) m/uL Hgb 8.2 L (13.0-17.5) gm/dL Hct 27.4 L (39.0-53.0) % MCHC 29.9 L (31.0-37.0) g/dL RDW 17.6 H (11.5-15.5) % Plt Count 141 L (150-450) k/uL PT 19.9 H (10.0-12.5) sec INR 2.0 H (<1.2) BUN 71 H (9-20) mg/dL Creatinine 3.92 H (0.66-1.25) mg/dL Glucose 148 H (74-99) mg/dL Assessment and Plan Assessment: Acute UTI, Pseudomonas aeruginosa, Proteus Mirabilis, cystitis Acute metabolic encephalopathy, initially attributed to infection, acute renal failure; worsening-etiology unclear, neurology doubts acute CVA-as patient is on Coumadin, relating it more to his abnormal EEG. Neurology workup in progress. Antibiotic adjusted related to potential cephalosporin side effect. Diarrhea, resolved. Constipation Dehydration Hypotension,on midodrine Acute on chronic renal failure stage IV, secondary to acute UTI, urinary retention, possibly cardiorenal syndrome. Metabolic acidosis secondary to the above, status post bicarb drip. On oral bicarb Urinary retention requiring Felder catheter placement. No hydronephrosis. Right basilar infiltrate,consolidation, persistent prominence of the left hilum, reported per chest x-ray. COPD Moderate to severe pulmonary hypertension Chronic hypoxic respiratory failure on home oxygen Chronic heart failure with reduced EF. Echo of 11/30/2023 reporting severe impaired LV systolic function with global hypokinesis, EF 30 to 35% History of nonischemic cardiomyopathy Anemia of chronic disease Persistent atrial fibrillation History of tissue mitral valve replacement, February 2015 at [facility] History [facility]icuspid [facility] echo 11/30/2023 reporting moderate tricuspid regurgitation Hypertension Hyperlipidemia Peripheral vascular disease History of abdominal aortic aneurysm History of rheumatic fever Plan continue on current medication regimen ,monitoring and symptomatic treatment. Labs pending, family wishes to discuss further with nephrology- patient currently declining hemodialysis. Hospice brought up -currently on hold .family discussing patient return to [facility]. brain MRI ordered/discontinued as per neurology, refer to neurology's progress note.antibiotics as per ID .aggressive pulmonary toileting, nebulized bronchodilators. Coumadin dosing as per pharmacy dosing. Prognosis guarded given multiple complex medical issues. The impression and plan of care has been dictated as directed. : I performed a history and examination of this patient, discussed the same with the dictator. I agree with the dictator's note ,documented as a scribe. Any additional findings or plans will be noted.
[2023-12-04 18:27] LABS: INR 1.9 (<1.2); Prothrombin Time 19.2 sec (10.0-12.5)
[2023-12-04] MEDS: WARFARIN 1 MG TAB PO ONE (18:30)
--- NOTE | 2023-12-04 19:25 | P.PN ---
Subjective patient is seen for follow-up for acute kidney injury. Started on hemodialysis on 11/30/2023 due to worsening renal function and concern for uremia. Mentation improved with dialysis however patient has decided not to continue with renal replacement therapy. Family present at bedside. Urine output not accurately charted. Labs are pending from today. Objective - Vital Signs Vital signs: Vital Signs Temp 97.5 F L 12/04/23 19:16 Pulse 67 12/04/23 19:16 Resp 17 12/04/23 19:16 BP 80/34 12/04/23 19:16 Pulse Ox 98 12/04/23 19:16 FiO2 Intake & Output 12/04/23 12/04/23 12/05/23 06:59 18:59 06:59 Intake Total 236 Output Total 45 100 Balance -45 136 Intake: Oral 236 Output: Urine 45 100 Other: Voiding Method Indwelling Catheter Indwelling Catheter - Exam patient is awake, comfortable, no acute distress. Examination of the heart S1 and S2 Examination of the lungs bilateral breath sounds are heard Abdomen is soft nontender Examination of lower extremity shows no significant edema - Labs CBC & Chem 7: 12/04/23 12:59 12/04/23 12:59 Labs: Abnormal Lab Results - Last 24 Hours (Table) 12/04/23 12/04/23 12/04/23 Range/Units 04:25 12:59 12:59 RBC 2.81 L (4.30-5.90) m/uL Hgb 8.2 L (13.0-17.5) gm/dL Hct 27.4 L (39.0-53.0) % MCHC 29.9 L (31.0-37.0) g/dL RDW 17.6 H (11.5-15.5) % Plt Count 141 L (150-450) k/uL PT 19.9 H (10.0-12.5) sec INR 2.0 H (<1.2) BUN 71 H (9-20) mg/dL Creatinine 3.92 H (0.66-1.25) mg/dL Glucose 148 H (74-99) mg/dL 12/04/23 Range/Units 17:33 RBC (4.30-5.90) m/uL Hgb (13.0-17.5) gm/dL Hct (39.0-53.0) % MCHC (31.0-37.0) g/dL RDW (11.5-15.5) % Plt Count (150-450) k/uL PT 19.2 H (10.0-12.5) sec INR 1.9 H (<1.2) BUN (9-20) mg/dL Creatinine (0.66-1.25) mg/dL Glucose (74-99) mg/dL Assessment and Plan Assessment: 1. Acute kidney injury secondary to obstructive uropathy and infection. Creatinine near 1 in May 2023. Renal function worse with creatinine 4.59 November 30, 2023. Started on hemodialysis November 30 2023 due to concern for uremia. Poor urine output noted. Patient has decided not to continue with dialysis. No hydronephrosis noted on CT. 2. Proteus UTI on antibiotics. 3. Chronic systolic CHF ejection fraction of 30 to 35%, mild to moderate aortic stenosis/tricuspid regurgitation and moderate to severe aortic regurgitation noted on echocardiogram done in July 2023. 4. Metabolic acidosis secondary to acute kidney injury and IV fluids. Status post bicarb drip. Improved. Now on oral bicarb. 5. Urinary retention. Has Felder catheter. On Flomax. Seen by urology. No further interventions planned. Felder management per urology. 6. Anemia. Avoid IV iron in the setting of acute infection. On Aranesp. Plan: Continue to hold dialysis. Catheter will be discontinued. Discussed with nursing staff regarding need for accurate documentation of urine output. Follow-up on labs from today. Continue with Aranesp Continue with Felder catheter. Continue antibiotics. Encouraged increased oral intake. DC IV fluids
[2023-12-04] MEDS: MIDODRINE 5 MG TAB PO PRN (20:58)
[2023-12-05 06:11] LABS: INR 2.3 (<1.2); Prothrombin Time 23.3 sec (10.0-12.5)
[2023-12-05 08:49] LABS: BUN/Creat Ratio 14.78 Ratio (12.00-20.00); Blood Urea Nitrogen 75.4 mg/dL (9.0-27.0); Carbon Dioxide 23.9 mmol/L (21.6-31.8); Chloride 99 mmol/L (96-109); Glucose 114 mg/dL (70-110); Potassium 4.5 mmol/L (3.5-5.5); Sodium 138 mmol/L (135-145)
[2023-12-05 08:54] LABS: Basophils # (A) 0.02 X 10*3/uL (0.00-0.10); Basophils % (A) 0.4 %; Eosinophils # (A) 0.13 X 10*3/uL (0.04-0.35); Eosinophils % (A) 2.9 %; HCT 24.2 % (39.6-50.0); HGB 7.4 g/dL (13.0-17.0); Lymphocytes # (A) 0.25 X 10*3/uL (0.90-5.00); Lymphocytes % (A) 5.5 %; MCH 29.7 pg (27.0-32.0); MCHC 30.6 g/dL (32.0-37.0); MCV 97.2 FL (80.0-97.0); Mean Platelet Volume 10.8 FL (9.5-12.2); Monocytes # (A) 0.41 X 10*3/uL (0.20-1.00); Monocytes % (A) 9.1 %; NRBC Per 100 WBC 0 X 10*3/uL (0.00-0.01); Neutrophils # (A) 3.68 X 10*3/uL (1.80-7.70); Neutrophils % (A) 81.4 %; Platelet Count 115 X 10*3/uL (140-440); RBC 2.49 X 10*6/uL (4.40-5.60); RDW 18.3 % (11.5-14.5); WBC 4.52 X 10*3/uL (4.50-10.00)
--- NOTE | 2023-12-05 11:41 | P.PN ---
Subjective patient is seen for follow-up for acute kidney injury. Started on hemodialysis on 11/30/2023 due to worsening renal function and concern for uremia. Mentation improved with dialysis however patient has decided not to continue with renal replacement therapy. Family present at bedside. Urine output remains low with only 150 ML charted for 24 hours. serum creatinine at 5.1 today. Objective - Vital Signs Vital signs: Vital Signs Temp 97.5 F L 12/05/23 08:00 Pulse 86 12/05/23 08:59 Resp 20 12/05/23 08:00 BP 101/56 12/05/23 08:00 Pulse Ox 94 L 12/05/23 08:51 FiO2 Intake & Output 12/04/23 12/05/23 12/05/23 18:59 06:59 18:59 Intake Total 236 860 Output Total 100 50 Balance 136 810 Intake: Oral 236 860 Output: Urine 100 50 Other: Voiding Method Indwelling Catheter Indwelling Catheter Indwelling Catheter - Exam patient is awake, comfortable, no acute distress. Examination of the heart S1 and S2 Examination of the lungs bilateral breath sounds are heard Abdomen is soft nontender Examination of lower extremity shows no significant edema - Labs CBC & Chem 7: 12/05/23 05:40 12/05/23 05:40 Labs: Abnormal Lab Results - Last 24 Hours (Table) 12/04/23 12/04/23 12/04/23 Range/Units 12:59 12:59 17:33 RBC 2.81 L (4.30-5.90) m/uL Hgb 8.2 L (13.0-17.5) gm/dL Hct 27.4 L (39.0-53.0) % MCV (80.0-97.0) FL MCHC 29.9 L (31.0-37.0) g/dL RDW 17.6 H (11.5-15.5) % Plt Count 141 L (150-450) k/uL Lymphocytes # (0.90-5.00) X 10*3/uL PT 19.2 H (10.0-12.5) sec INR 1.9 H (<1.2) Anion Gap (4.00-12.00) mmol/L BUN 71 H (9-20) mg/dL Creatinine 3.92 H (0.66-1.25) mg/dL Est GFR (CKD-EPI) (>=60) Glucose 148 H (74-99) mg/dL Calcium (8.7-10.3) mg/dL 12/05/23 12/05/23 12/05/23 Range/Units 05:40 05:40 05:40 RBC 2.49 L (4.30-5.90) m/uL Hgb 7.4 L (13.0-17.5) gm/dL Hct 24.2 L (39.0-53.0) % MCV 97.2 H (80.0-97.0) FL MCHC 30.6 L (31.0-37.0) g/dL RDW 18.3 H (11.5-15.5) % Plt Count 115 L (150-450) k/uL Lymphocytes # 0.25 L (0.90-5.00) X 10*3/uL PT 23.3 H (10.0-12.5) sec INR 2.3 H (<1.2) Anion Gap 15.10 H (4.00-12.00) mmol/L BUN 75.4 H (9-20) mg/dL Creatinine 5.1 H (0.66-1.25) mg/dL Est GFR (CKD-EPI) 11 L (>=60) Glucose 114 H (74-99) mg/dL Calcium 8.0 L (8.7-10.3) mg/dL Assessment and Plan Assessment: 1. Acute kidney injury secondary to obstructive uropathy and infection. Creatinine near 1 in May 2023. Renal function worse with creatinine 4.59 November 30, 2023. Started on hemodialysis November 30 2023 due to concern for uremia. Poor urine output noted. Patient has decided not to continue with dialysis. No hydronephrosis noted on CT. 2. Proteus UTI on antibiotics. 3. Chronic systolic CHF ejection fraction of 30 to 35%, mild to moderate aortic stenosis/tricuspid regurgitation and moderate to severe aortic regurgitation noted on echocardiogram done in July 2023. 4. Metabolic acidosis secondary to acute kidney injury and IV fluids. Status post bicarb drip. Improved. Now on oral bicarb. 5. Urinary retention. Has Felder catheter. On Flomax. Seen by urology. No further interventions planned. Felder management per urology. 6. Anemia. Avoid IV iron in the setting of acute infection. On Aranesp. Plan: Continue to hold dialysis. Catheter will be discontinued. Continue with Aranesp Continue with Felder catheter. Continue antibiotics. Encouraged increased oral intake.
--- NOTE | 2023-12-05 13:18 | P.PN ---
Subjective Progress Note Date: 12/05/23 11/23/23 Samir is a 83-year-old male well-known to the practice. He reports 3-day history of incessant diarrhea with multiple episodes of stools. He has a long history of atrial fibrillation, congestive heart failure, chronic renal failure, and a previous history of urinary retention with Felder catheter. Felder catheter was discontinued about 6 months ago and he had been doing well urinating without it. At this time he says he is urinating. He denies any chest pains pressures or shortness of breath that is different than any other time. He reports his stools are normal in color. Vitals are stable laboratory studies show a hyponatremia., He is chronically anemic hemoglobin is 9, BUN and creatinine are 83 and 2.47 with a GFR of 23. He is in good spirits. November 24, 2023: Patient is reevaluated today. He is feeling better overnight though he did have some confusion. He apparently called 911 while in his hospital bed. He says he realized his mistake right away and it was just after he was waking up that he felt very strange. He is feeling back to normal at this time. He denies any chest pains pressures. Shortness of breath is chronic and stable. Vital signs show temp 97.7 pulse oximetry 97% on 3 L O2, blood pressure is controlled. Labs this morning showed his sodium is now 139. Kidney function still little off with a BUN of 80 and a creatinine of 2.96. GFR is down to 19. Staff report postvoid residuals were 290 after urinating. He indicates he is urinating freely and does not wish to deal with a catheter at this time. He also reports no diarrhea overnight. Nephrology is following. 11/25/2023 worsening renal function, bicarb 15, BUN 74, creatinine 3.72, GFR 14, continues on bicarb drip. Nephrology following. blood sugars controlled. Viral studies negative, C. difficile negative. Sensorium significantly improved, alert and oriented x 3; staff reports patient is impulsive. Complains of constipation, no bowel movement in 2 days. Denies chest pain, palpitations or shortness of breath. Maintaining O2 sats in the 90s on 3 L nasal cannula. Echo from 07/25 reporting EF of 30 to 35%. Chest x-ray reported COPD with right basilar infiltrate/consolidation, persistent prominence of the left hilum. Brain CT reported no acute intracranial process. 11/26/2023 sensorium significantly improved. Maintained on bicarb drip, bicarb increased to 17, BUN 72, creatinine 3.9. Urine culture reporting gram-negative bacilli, Proteus Mirabilis, maintained on cefepime. Felder catheter for urinary retention. Evaluated by urology, recommendations noted including expecting this patient to have a higher postvoid residual of less than 500 mL. Maintaining O2 sats in the high 90s on 3 L nasal cannula. Hemoglobin decreased to 7.2, platelets 130. Denies chest pain, palpitations. INR 2.3 , anticoagulated on Coumadin .Reports very small bowel movement, MiraLAX changed from as needed to daily. 11/27/2023 mild tachycardia, low 1 teens,Bisprolol initiated. Coumadin per pharmacy dosing, INR elevated 3.7 today. Felder catheter present secondary to urinary retention. renal function worsening, creatinine 4.1. Bicarb 21.5, bicarb drip discontinued. maintaining O2 sats in the high 90s on 3 L nasal cannula. Continues on cefepime. 11/28/2023 IV fluids adjusted yesterday to half-normal saline at 75 mL, renal function slowly improving, bicarb 21.8, BUN 72, creatinine 3.9, estimated GFR 15. Urine output improving;Felder catheter.hepatitis serology nonreactive. Patient's bisoprolol resumed yesterday, heart rate better controlled. Nebulized bronchodilators adjusted yesterday with clinical improvement, continue O2 sats in the high 90s on 3 L nasal cannula, respiratory rate better controlled. Continues on cefepime, afebrile, normal WBC. Patient did not receive Coumadin last night as INR was elevated 3.7; INR decreased to 3.4, denies chest pain, palpitations or increase in shortness of breath. Hemoglobin 7.4, platelets 106. 11/29/2023 fluctuating mild confusion. Blood pressure soft, midodrine initiated. Afebrile, normal WBC, hemoglobin decreased to 7.7, platelets 109. No Coumadin last night, INR decreased to 2.3. Bicarb 22.5 BUN 38.2, creatinine increased to 4.1. Denies chest pain, palpitations. 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 Positive bowel movement last night on MiraLAX. 12/02/2023 alert, confused, recognizes PCP, converses minimally. Evaluated by neurology over the weekend for potential CVA, workup in progress, brain MRI pending. Hemodialysis initiated on 11/30/2023. Scheduled for repeat hemodialysis today. Antibiotics adjusted yesterday to Zosyn, as per ID secondary to possible uremia underlying effect of cefepime. 2D echo completed 11/30/2023 reporting severely impaired left ventricular systolic function, EF 30 to 35% with global hypokinesis, mitral valve bioprosthesis with mild tricuspid regurgitation, tricuspid valve repair with moderate tricuspid regurgitation and moderate pulmonary hypertension, moderate aortic regurgitation.Carotid Doppler reported no hemodynamic significant stenosis.Brain CT reported mild age-appropriate atrophy, no acute intra or extra-axial hemorrhage, no mass effect or shift of the midline structures, tiny remote lacunar infarct in left basal ganglia. 12/03/2023 sensorium significantly improved ,alert and oriented x 3 this morning, strength improved. Hemodialysis last night, possible repeat hemodialysis today. Bicarb 22, BUN decreased to 33, creatinine 2.4, estimated GFR increased to 26. brain MRI pending. patient exasperated regarding his prolonged illness. EEG completed yesterday reported abnormal due to background slowing, suggestive of moderate to severe encephalopathy, intermittent high amplitude sharp appearing waves at 3 Hz, suggestive of underlying cortical irritability and tendency for seizures, nonconvulsive status also on the differential. continues on Zosyn for acute UTI. afebrile, normal WBC, hemoglobin stable at 8.3, platelets 146. Maintaining O2 sats in the high 90s on 4 L nasal cannula. Passed swallow evaluation, currently eating pasta. 12-03 patient reporting he he does not want to continue with hemodialysis, family at bedside. They wish to discuss further with nephrology. Labs pending. INR 2. denies chest pain, palpitations or increase in shortness of breath. O2 sats in the high 90s on 3 L nasal cannula. Continues on Zosyn. No seizure activity. 12/05/2023 during the night developed black tarry stools, stool for occult blood ordered, pending. INR 2.3 and Coumadin per pharmacy dosing. Soft blood pressures, change midodrine from prn to scheduled. Urine output low, 150 mL/24h. declining further hemodialysis treatments. renal function worsening, BUN 75.4, creatinine 5.1. Hemoglobin decreased to 7.4. Denies chest pain, palpitations or increase in shortness of breath. Maintaining O2 sats of 94% on 4 L nasal cannula. informational hospice meeting with patient and family pending. Objective - Vital Signs Vital signs: Vital Signs Temp 97.5 F L 12/05/23 08:00 Pulse 86 12/05/23 12:23 Resp 20 12/05/23 08:00 BP 101/56 12/05/23 08:00 Pulse Ox 94 L 12/05/23 08:51 FiO2 Intake & Output 12/04/23 12/05/23 12/05/23 18:59 06:59 18:59 Intake Total 236 860 Output Total 100 50 Balance 136 810 Intake: Oral 236 860 Output: Urine 100 50 Other: Voiding Method Indwelling Catheter Indwelling Catheter Indwelling Catheter - Exam General: Alert and oriented x 3, sitting up in bed, no acute distress. HEENT: Normocephalic, atraumatic PERRLA EOMI.mmm. Neck: Supple, no JVD Cardiac: Regular S1-S2, iregular rate and rhythm.Positive systolic murmur consistent with his aortic valve replacement Lungs: Diminished breath sounds bilaterally. Scattered rhonchi more so on left lung Abdomen: Soft, nondistended ,nontender, no guarding, no rigidity, +BS. Extremes: [No edema no cyanosis no claudication normal pulses Skin: [No rash, warm and dry, Neurologic: Cranial nerves II through XII grossly intact, generalized weakness - Labs CBC & Chem 7: 12/05/23 05:40 12/05/23 05:40 Labs: Abnormal Lab Results - Last 24 Hours (Table) 12/04/23 12/04/23 12/04/23 Range/Units 12:59 12:59 17:33 RBC 2.81 L (4.30-5.90) m/uL Hgb 8.2 L (13.0-17.5) gm/dL Hct 27.4 L (39.0-53.0) % MCV (80.0-97.0) FL MCHC 29.9 L (31.0-37.0) g/dL RDW 17.6 H (11.5-15.5) % Plt Count 141 L (150-450) k/uL Lymphocytes # (0.90-5.00) X 10*3/uL PT 19.2 H (10.0-12.5) sec INR 1.9 H (<1.2) Anion Gap (4.00-12.00) mmol/L BUN 71 H (9-20) mg/dL Creatinine 3.92 H (0.66-1.25) mg/dL Est GFR (CKD-EPI) (>=60) Glucose 148 H (74-99) mg/dL Calcium (8.7-10.3) mg/dL 12/05/23 12/05/23 12/05/23 Range/Units 05:40 05:40 05:40 RBC 2.49 L (4.30-5.90) m/uL Hgb 7.4 L (13.0-17.5) gm/dL Hct 24.2 L (39.0-53.0) % MCV 97.2 H (80.0-97.0) FL MCHC 30.6 L (31.0-37.0) g/dL RDW 18.3 H (11.5-15.5) % Plt Count 115 L (150-450) k/uL Lymphocytes # 0.25 L (0.90-5.00) X 10*3/uL PT 23.3 H (10.0-12.5) sec INR 2.3 H (<1.2) Anion Gap 15.10 H (4.00-12.00) mmol/L BUN 75.4 H (9-20) mg/dL Creatinine 5.1 H (0.66-1.25) mg/dL Est GFR (CKD-EPI) 11 L (>=60) Glucose 114 H (74-99) mg/dL Calcium 8.0 L (8.7-10.3) mg/dL Assessment and Plan Assessment: Acute UTI, Pseudomonas aeruginosa, Proteus Mirabilis, cystitis Acute metabolic encephalopathy, initially attributed to infection, acute renal failure; worsening-etiology unclear, neurology doubts acute CVA-as patient is on Coumadin, relating it more to his abnormal EEG. Neurology workup in progress. Antibiotic adjusted related to potential cephalosporin side effect. Improved with hemodialysis. Diarrhea, resolved. Constipation Dehydration Hypotension,on midodrine Acute on chronic renal failure stage IV, secondary to acute UTI, urinary retention, possibly cardiorenal syndrome. Status post hemodialysis Metabolic acidosis secondary to the above, status post bicarb drip. On oral bicarb Urinary retention requiring Felder catheter placement. No hydronephrosis. Right basilar infiltrate,consolidation, persistent prominence of the left hilum, reported per chest x-ray. COPD Moderate to severe pulmonary hypertension Chronic hypoxic respiratory failure on home oxygen Chronic heart failure with reduced EF. Echo of 11/30/2023 reporting severe impaired LV systolic function with global hypokinesis, EF 30 to 35% History of nonischemic cardiomyopathy Anemia of chronic disease Persistent atrial fibrillation History of tissue mitral valve replacement, February 2015 at [facility] History of tricuspid valve repair, February 2015 at [facility]; echo 11/30/2023 reporting moderate tricuspid regurgitation Hypertension Hyperlipidemia Peripheral vascular disease History of abdominal aortic aneurysm History of rheumatic fever Severe protein calorie malnutrition Plan continue on current medication regimen ,monitoring and symptomatic treatment. Stool for occult blood pending. declining further hemodialysis treatments. Catheter to be discontinued. Informational hospice meeting pend ing. The impression and plan of care has been dictated as directed. : I performed a history and examination of this patient, discussed the same with the dictator. I agree with the dictator's note ,documented as a scribe. Any additional findings or plans will be noted.
[2023-12-05] MEDS ORDERED: MIDODRINE 5 MG TAB PO PRN (13:59)
[2023-12-05] MEDS: MIDODRINE 5 MG TAB PO STA (14:11)
[2023-12-05] MEDS: FUROSEMIDE 10 MG/ML 10 ML VIAL IV STA ×2 (14:33→15:44)
--- NOTE | 2023-12-05 15:00 | P.PN ---
Subjective Progress Note Date: 12/05/23 Principal diagnosis: Reason for follow-up is a urinary tract infection Patient is a 83-year-old male with a past medical history significant for hyperlipidemia COPD heart failure with atrial fibrillation BPH presenting to the hospital for evaluation of diarrhea also difficulty urination requiring Felder catheter placement did have a positive UA and urine has been finalized with drug-resistant Proteus prompting this consultation. On today's evaluation that is 12/05/2023, Patient is afebrile patient is currently on 3 L nasal oxygen and denies having any shortness of breath, the patient denies any chest pain or any worsening cough, the patient denies any nausea vomiting did not have any abdominal pain, patient mention feeling better. Patient has been complaining of some diarrhea Patient white count is 4.52, creatinine is 5.1, stool for C. difficile negative Objective - Vital Signs Vital signs: Vital Signs Temp 97.2 F L 12/05/23 14:44 Pulse 78 12/05/23 14:44 Resp 20 12/05/23 14:44 BP 93/46 12/05/23 14:44 Pulse Ox 100 12/05/23 14:44 FiO2 Intake & Output 12/04/23 12/05/23 12/05/23 18:59 06:59 18:59 Intake Total 236 860 Output Total 100 50 Balance 136 810 Intake: Oral 236 860 Output: Urine 100 50 Other: Voiding Method Indwelling Catheter Indwelling Catheter Indwelling Catheter - Exam GENERAL DESCRIPTION: An elderly male lying in bed in no distress RESPIRATORY SYSTEM: Unlabored breathing , decreased breath sounds at bases HEART: S1 S2 regular rate and rhythm , ABDOMEN: Soft , no tenderness EXTREMITIES: No edema feet - Labs CBC & Chem 7: 12/05/23 05:40 12/05/23 05:40 Labs: Abnormal Lab Results - Last 24 Hours (Table) 12/04/23 12/05/23 12/05/23 Range/Units 17:33 05:40 05:40 RBC 2.49 L (4.40-5.60) X 10*6/uL Hgb 7.4 L (13.0-17.0) g/dL Hct 24.2 L (39.6-50.0) % MCV 97.2 H (80.0-97.0) FL MCHC 30.6 L (32.0-37.0) g/dL RDW 18.3 H (11.5-14.5) % Plt Count 115 L (140-440) X 10*3/uL Lymphocytes # 0.25 L (0.90-5.00) X 10*3/uL PT 19.2 H 23.3 H (10.0-12.5) sec INR 1.9 H 2.3 H (<1.2) Anion Gap (4.00-12.00) mmol/L BUN (9.0-27.0) mg/dL Creatinine (0.6-1.5) mg/dL Est GFR (CKD-EPI) (>=60) Glucose (70-110) mg/dL Calcium (8.7-10.3) mg/dL 12/05/23 Range/Units 05:40 RBC (4.40-5.60) X 10*6/uL Hgb (13.0-17.0) g/dL Hct (39.6-50.0) % MCV (80.0-97.0) FL MCHC (32.0-37.0) g/dL RDW (11.5-14.5) % Plt Count (140-440) X 10*3/uL Lymphocytes # (0.90-5.00) X 10*3/uL PT (10.0-12.5) sec INR (<1.2) Anion Gap 15.10 H (4.00-12.00) mmol/L BUN 75.4 H (9.0-27.0) mg/dL Creatinine 5.1 H (0.6-1.5) mg/dL Est GFR (CKD-EPI) 11 L (>=60) Glucose 114 H (70-110) mg/dL Calcium 8.0 L (8.7-10.3) mg/dL Assessment and Plan (1) Cystitis Current Visit: Yes Status: Acute Code(s): N30.90 - CYSTITIS, UNSPECIFIED WITHOUT HEMATURIA SNOMED Code(s): 08117747 (2) UTI (urinary tract infection) Current Visit: Yes Status: Acute Code(s): N39.0 - URINARY TRACT INFECTION, SITE NOT SPECIFIED SNOMED Code(s): 95854973 Plan: 1patient presented to hospital with diarrhea he also have some suprapubic discomfort did have a significantly positive UA concerning for symptomatic urinary tract infection likely from gram-negative pathogen with urine currently showing drug-resistant Proteus and Pseudomonas aeruginosa that is sensitive to cefepime 2-patient to continue Zosyn and monitor clinical course closely 3diarrhea possible antibiotic associated encouraged increasing probiotic and yogurt intake will add Questran for symptomatic relief Dictation was produced using [employer] dictation software. please excuse any grammatical, word or spelling errors. Time with Patient: Less than 30
[2023-12-05 16:56] LABS: INR 2.3 (<1.2); Prothrombin Time 22.7 sec (10.0-12.5)
[2023-12-05] MEDS: MIDODRINE 5 MG TAB PO SCH (17:34)
[2023-12-05] MEDS: WARFARIN 1 MG TAB PO ONE (17:34)
[2023-12-05] MEDS: CHOLESTYRAMINE (WITH SUGAR) 4 GM PACKET PO SCH (17:36)
[2023-12-06 07:23] LABS: INR 2.2 (<1.2); Prothrombin Time 21.8 sec (10.0-12.5)
--- NOTE | 2023-12-06 09:09 | XR ---
EXAMINATION TYPE: XR chest 1V DATE OF EXAM: 12/06/2023 6:27 AM CLINICAL INDICATION: Male, 83 years old with history of CHF; COMPARISON: Chest radiographs from 11/30/2023 TECHNIQUE: XR chest 1V Frontal view of the chest. FINDINGS: Lungs/Pleura: Streaky markings in lung bases again seen slightly improved from prior. There is flatte jessica of the diaphragm with increased lucency of the lungs. No evidence of pneumothorax, pleural effus ion or focal consolidation. Pulmonary vascularity: Pulmonary vascular congestion. Heart/mediastinum: Cardiomediastinal silhouette is enlarged. Heart caliber. Changes. Atherosclerotic calcifications are seen in the aorta. Musculoskeletal: No acute osseous pathology. Midline sternotomy wires are noted. Other findings: None IMPRESSION: 1. Pulmonary fibrotic changes versus pulmonary vascular congestion, minimally improved from one day prior. Correlate with serum BNP. 2. COPD changes. [facility], , 12/06/2023 9:06 AM
--- NOTE | 2023-12-06 09:27 | P.PN ---
Subjective Progress Note Date: 12/05/23 12/05/2023: Patient was seen for a follow-up. Patient's family members including his knees was present. Patient has decided no hemodialysis. His creatinine is creeping up. Patient still is very pleasant, communicating. This can potentially get worse with worsening renal functions. He is aware of it. 12/03/2023: Patient was seen for a follow-up. Patient's niece was present. Patient has remarkably improved. He is carrying on good conversation. He has been talking to the family members most of the day. Slightly some periods of confusion, but much improved. Patient's family has mentioned that patient's personality is intact. He is still very lively, and entertaining during conversation. No seizure. Patient states he does not want dialysis anymore. 12/02/2023: Patient is seen by Dr. Rogelio Patrick. Please refer to his note for details. Patient is a 83-year-old male with acute UTI. Patient has reported aphasia and left-sided weakness. However on examination patient was noted to have generalized weakness and was just screaming. Dr. Patrick has initiated stroke workup and EEG. Patient is laying in the bed. He has oxygen by nasal cannula. He is slightly short of breath. He is slightly tachypneic. Patient denies headache. Patient's grand niece was present, who provided with a history as well. Patient was admitted for UTI. He has become very confused while in the hospital. At baseline patient does have end-stage COPD and CHF and is usually short of breath. This has been going on for almost a year, progressively getting worse. He uses a walker at home, lives by himself. There is no previous history of seizures. Patient for the last 2 days was alert and orient x 0. Patient's grand niece mentions that he is very interesting to talk to. He is very knowledgeable at baseline, and this is much change. Patient was started on hemodialysis, the first 1 was given on Saturday, then yesterday on Saturday and today will be the third session of hemodialysis. She has noticed she is about 25% better. Patient's grand niece states that he is not nearly baseline. Some of the work-up consisted of: His creatnine yesterday is 4.59 and baseline is below 2. Today is 3.6, much improved. TSH is 1.350 Ammonia is less than 9 +ve acute UTI. Urine culture is pseudomonas aeruginosa, proteus mirabilis CT head today reported as mild age-appropriate atrophy. No acute intra or ex tral axial hemorrhage. No mass effect or shift of midline structure. Tiny remote lacunar infarct in left basal ganglia. I personally reviewed CT and agree there is no acute or subacute ischemic stroke. Carotid duplex is reported as mild carotid bifurcation plaque resulting in minimal stenosis. No hemodynamically significant stenosis based on peak systolic velocity and ratio 2D echo was reported as severely impaired left ventricular systolic function with global hypokinesis. Mitral valve by prosthesis with mild tricuspid regurgitation. Tricuspid valve repair with moderate tricuspid regurgitation and moderate pulmonary hypertension. Moderate aortic regurgitation. Objective - Vital Signs Vital signs: Vital Signs Temp 97.4 F L 12/06/23 07:42 Pulse 77 12/06/23 08:04 Resp 16 12/06/23 07:42 BP 92/55 12/06/23 07:42 Pulse Ox 98 12/06/23 07:57 FiO2 Intake & Output 12/05/23 12/06/23 12/06/23 18:59 06:59 18:59 Intake Total 118 Output Total 100 Balance -100 118 Intake: Oral 118 Output: Urine 100 Other: Voiding Method Indwelling Catheter Indwelling Catheter # Bowel Movements 2 - Exam Patient is alert and awake, in no respiratory distress. Patient's speech and language functions are completely normal. He is very pleasant. Latency time to answer questions has normalized. He is having full conversation with his family members. No seizure-like activity. Patient has mild metabolic tremors of outstretched hands. Patient pupils are equal, round and reacting, face is symmetric. Patient moves all 4 extremities. - Labs CBC & Chem 7: 12/05/23 05:40 12/05/23 05:40 Labs: Abnormal Lab Results - Last 24 Hours (Table) 12/05/23 12/06/23 Range/Units 16:35 06:41 PT 22.7 H 21.8 H (10.0-12.5) sec INR 2.3 H 2.2 H (<1.2) Assessment and Plan Assessment: This is an 83 year-old gentleman who presents to the ED because of acute UTI who is also having worsening of acute on chronic renal failure, has developed altered mental status and generalized weakness. Altered mental status, likely due to toxic-metabolic encephalopathy due to worsening of kidney function and acute UTI and medication effect (Cephalosporin toxicity). CT head negative for any acute or subacute ischemic stroke. Carotid duplex is negative for significant carotid stenosis. Abnormal EEG, with evidence of triphasic waves, which at times becomes rhythmic, concerning for seizure tendency. Rule out cefepime induced neurotoxicity. Acute on chronic kidney insuffiency Acute UTI (urine culture pseudomonas aeruginosa, proteus mirabilis). Atrial fibrillation on coumadin Left ventricular systolic function with global hypokinesis and moderate pulmonary pulmonary hypertension as well as moderate aortic regurgitation on 2D echo Plan: Patient has declined to continue hemodialysis. His BUN is now 75, creatinine 5.1 as of today. Family is meeting hospice later today. Patient's mentation has remarkably improved since he has been maintained on hemodialysis, and cefepime has been discontinued. No indication for repeat EEG, as his mentation has almost returned back to baseline.. EEG was very abnormal due to background slowing, suggestive of moderate to severe encephalopathy, also evidence of frequent high amplitude waves, which jessica ears to have some triphasic quality, but becomes regular, rhythmic at 3 Hz. Nonconvulsive status also in the differential. Clinically however this is probably due to severe metabolic encephalopathy. Clinically patient also had significant myoclonic jerking at that time. As patient's mentation has almost returned back to baseline, no indication for repeat EEG, or antiepileptic medication. Above pattern was likely related to severe toxic metabolic encephalopathy. Cefepime has been discontinued and patient started on vancomycin. Patient's B12 is 866, folate 10.5, TSH 1.35. Ammonia is < 9 Lipid panel with cholesterol 166, LDL 103, HDL 37, triglycerides 128. Patient's speech difficulty was likely due to TME. No evidence of CVA. Examination is nonfocal. We will cancel MRI. Patient is on Warfarin, INR therapeutic 2.3. Nephrology is on board. I.D. is on board. Cefepime has been switched to vancomycin. Patient has severely impaired left ventricular systolic function with global hypokinesis and moderate pulmonary pulmonary hypertension as well as moderate aortic regurgitation. If patient does have a stroke then would recommend car diology consultation Will defer the rest of medical management to primary and other specialist. Discussed with family members. They are actively pursuing hospice at this time.
--- NOTE | 2023-12-06 11:52 | P.PN ---
Subjective Progress Note Date: 12/06/23 11/23/23 Samir is a 83-year-old male well-known to the practice. He reports 3-day history of incessant diarrhea with multiple episodes of stools. He has a long history of atrial fibrillation, congestive heart failure, chronic renal failure, and a previous history of urinary retention with Felder catheter. Felder catheter was discontinued about 6 months ago and he had been doing well urinating without it. At this time he says he is urinating. He denies any chest pains pressures or shortness of breath that is different than any other time. He reports his stools are normal in color. Vitals are stable laboratory studies show a hyponatremia., He is chronically anemic hemoglobin is 9, BUN and creatinine are 83 and 2.47 with a GFR of 23. He is in good spirits. November 24, 2023: Patient is reevaluated today. He is feeling better overnight though he did have some confusion. He apparently called 911 while in his hospital bed. He says he realized his mistake right away and it was just after he was waking up that he felt very strange. He is feeling back to normal at this time. He denies any chest pains pressures. Shortness of breath is chronic and stable. Vital signs show temp 97.7 pulse oximetry 97% on 3 L O2, blood pressure is controlled. Labs this morning showed his sodium is now 139. Kidney function still little off with a BUN of 80 and a creatinine of 2.96. GFR is down to 19. Staff report postvoid residuals were 290 after urinating. He indicates he is urinating freely and does not wish to deal with a catheter at this time. He also reports no diarrhea overnight. Nephrology is following. 11/25/2023 worsening renal function, bicarb 15, BUN 74, creatinine 3.72, GFR 14, continues on bicarb drip. Nephrology following. blood sugars controlled. Viral studies negative, C. difficile negative. Sensorium significantly improved, alert and oriented x 3; staff reports patient is impulsive. Complains of constipation, no bowel movement in 2 days. Denies chest pain, palpitations or shortness of breath. Maintaining O2 sats in the 90s on 3 L nasal cannula. Echo from 07/25 reporting EF of 30 to 35%. Chest x-ray reported COPD with right basilar infiltrate/consolidation, persistent prominence of the left hilum. Brain CT reported no acute intracranial process. 11/26/2023 sensorium significantly improved. Maintained on bicarb drip, bicarb increased to 17, BUN 72, creatinine 3.9. Urine culture reporting gram-negative bacilli, Proteus Mirabilis, maintained on cefepime. Felder catheter for urinary retention. Evaluated by urology, recommendations noted including expecting this patient to have a higher postvoid residual of less than 500 mL. Maintaining O2 sats in the high 90s on 3 L nasal cannula. Hemoglobin decreased to 7.2, platelets 130. Denies chest pain, palpitations. INR 2.3 , anticoagulated on Coumadin .Reports very small bowel movement, MiraLAX changed from as needed to daily. 11/27/2023 mild tachycardia, low 1 teens,Bisprolol initiated. Coumadin per pharmacy dosing, INR elevated 3.7 today. Felder catheter present secondary to urinary retention. renal function worsening, creatinine 4.1. Bicarb 21.5, bicarb drip discontinued. maintaining O2 sats in the high 90s on 3 L nasal cannula. Continues on cefepime. 11/28/2023 IV fluids adjusted yesterday to half-normal saline at 75 mL, renal function slowly improving, bicarb 21.8, BUN 72, creatinine 3.9, estimated GFR 15. Urine output improving;Felder catheter.hepatitis serology nonreactive. Patient's bisoprolol resumed yesterday, heart rate better controlled. Nebulized bronchodilators adjusted yesterday with clinical improvement, continue O2 sats in the high 90s on 3 L nasal cannula, respiratory rate better controlled. Continues on cefepime, afebrile, normal WBC. Patient did not receive Coumadin last night as INR was elevated 3.7; INR decreased to 3.4, denies chest pain, palpitations or increase in shortness of breath. Hemoglobin 7.4, platelets 106. 11/29/2023 fluctuating mild confusion. Blood pressure soft, midodrine initiated. Afebrile, normal WBC, hemoglobin decreased to 7.7, platelets 109. No Coumadin last night, INR decreased to 2.3. Bicarb 22.5 BUN 38.2, creatinine increased to 4.1. Denies chest pain, palpitations. In the spool cleaner hours patient complained of increased shortness of breath, O2 was increased up to 4 L, currently maintaining O2 sats of 99 on 5 L which has been decreased back down to 3 L nasal cannula O2, maintaining O2 sats in the high 90s. Positive bowel movement last night on MiraLAX. 12/02/2023 alert, confused, recognizes PCP, converses minimally. Evaluated by neurology over the weekend for potential CVA, workup in progress, brain MRI pending. Hemodialysis initiated on 11/30/2023. Scheduled for repeat hemodialysis today. Antibiotics adjusted yesterday to Zosyn, as per ID secondary to possible uremia underlying effect of cefepime. 2D echo completed 11/30/2023 reporting severely impaired left ventricular systolic function, EF 30 to 35% with global hypokinesis, mitral valve bioprosthesis with mild tricuspid regurgitation, tricuspid valve repair with moderate tricuspid regurgitation and moderate pulmonary hypertension, moderate aortic regurgitation.Carotid Doppler reported no hemodynamic significant stenosis.Brain CT reported mild age-appropriate atrophy, no acute intra or extra-axial hemorrhage, no mass effect or shift of the midline structures, tiny remote lacunar infarct in left basal ganglia. 12/03/2023 sensorium significantly improved ,alert and oriented x 3 this morning, strength improved. Hemodialysis last night, possible repeat hemodialysis today. Bicarb 22, BUN decreased to 33, creatinine 2.4, estimated GFR increased to 26. brain MRI pending. patient exasperated regarding his prolonged illness. EEG completed yesterday reported abnormal due to background slowing, suggestive of moderate to severe encephalopathy, intermittent high amplitude sharp appearing waves at 3 Hz, suggestive of underlying cortical irritability and tendency for seizures, nonconvulsive status also on the differential. continues on Zosyn for acute UTI. afebrile, normal WBC, hemoglobin stable at 8.3, platelets 146. Maintaining O2 sats in the high 90s on 4 L nasal cannula. Passed swallow evaluation, currently eating pasta. 12-03 patient reporting he he does not want to continue with hemodialysis, family at bedside. They wish to discuss further with nephrology. Labs pending. INR 2. denies chest pain, palpitations or increase in shortness of breath. O2 sats in the high 90s on 3 L nasal cannula. Continues on Zosyn. No seizure activity. 12/05/2023 during the night developed black tarry stools, stool for occult blood ordered, pending. INR 2.3 and Coumadin per pharmacy dosing. Soft blood pressures, change midodrine from prn to scheduled. Urine output low, 150 mL/24h. declining further hemodialysis treatments. renal function worsening, BUN 75.4, creatinine 5.1. Hemoglobin decreased to 7.4. Denies chest pain, palpitations or increase in shortness of breath. Maintaining O2 sats of 94% on 4 L nasal cannula. informational hospice meeting with patient and family pending. 12/06/2023 patient previously had declined further inpatient hemodialysis .After meeting with hospice yesterday for informational meeting, patient and family have decided to proceed with dialysis. Dialysis pending for today as per nephrology. Case management working on placement to facilitate dialysis. No further tarry stools reported. INR 2.2, Coumadin per pharmacy dosing. Blood pr essures soft, maintained on midodrine, dose increased. Fatigued, denies chest pain, palpitations or increased shortness of breath. Maintaining O2 sats in the high 90s on 4 L nasal cannula. Chest x-ray pending. Objective - Vital Signs Vital signs: Vital Signs Temp 97.4 F L 12/06/23 07:42 Pulse 77 12/06/23 08:04 Resp 16 12/06/23 07:42 BP 92/55 12/06/23 07:42 Pulse Ox 98 12/06/23 07:57 FiO2 Intake & Output 12/05/23 12/06/23 12/06/23 18:59 06:59 18:59 Intake Total 118 Output Total 100 Balance -100 118 Intake: Oral 118 Output: Urine 100 Other: Voiding Method Indwelling Catheter Indwelling Catheter # Bowel Movements 2 - Exam General: Cachexic, alert and oriented x 3, sitting up in bed, no acute distress. HEENT: Normocephalic, atraumatic PERRLA EOMI.mmm. Neck: Supple, no JVD Cardiac: Regular S1-S2, iregular rate and rhythm.Positive systolic murmur consistent with his aortic valve replacement Lungs: Diminished breath sounds bilaterally. Scattered rhonchi throughout Abdomen: Soft, nondistended ,nontender, no guarding, no rigidity, +BS. Extremes: [No edema no cyanosis no claudication normal pulses Skin: [No rash, warm and dry, Neurologic: Cranial nerves II through XII grossly intact, generalized weakness - Labs CBC & Chem 7: 12/05/23 05:40 12/05/23 05:40 Labs: Abnormal Lab Results - Last 24 Hours (Table) 12/05/23 12/06/23 Range/Units 16:35 06:41 PT 22.7 H 21.8 H (10.0-12.5) sec INR 2.3 H 2.2 H (<1.2) Assessment and Plan Assessment: Acute UTI, Pseudomonas aeruginosa, Proteus Mirabilis, cystitis Acute metabolic encephalopathy, initially attributed to infection, acute renal failure; worsening-etiology unclear, neurology doubts acute CVA-as patient is on Coumadin, relating it more to his abnormal EEG. Neurology workup in progress. Antibiotic adjusted related to potential cephalosporin side effect. Improved with hemodialysis. Diarrhea, resolved. Constipation Dehydration Hypotension,on midodrine Acute on chronic renal failure stage IV, secondary to acute UTI, urinary retention, possibly cardiorenal syndrome. Status post hemodialysis Metabolic acidosis secondary to the above, status post bicarb drip. On oral bicarb Urinary retention requiring Felder catheter placement. No hydronephrosis. Right basilar infiltrate,consolidation, persistent prominence of the left hilum, reported per chest x-ray. COPD Moderate to severe pulmonary hypertension Chronic hypoxic respiratory failure on home oxygen Chronic heart failure with reduced EF. Echo of 11/30/2023 reporting severe impaired LV systolic function with global hypokinesis, EF 30 to 35% History of nonischemic cardiomyopathy Anemia of chronic disease Persistent atrial fibrillation History of tissue [facility] valve [facility], [facility]pid [facility], [facility] ; echo 11/30/2023 reporting moderate tricuspid regurgitation Hypertension Hyperlipidemia Peripheral vascular disease History of abdominal aortic aneurysm History of rheumatic fever Severe protein calorie malnutrition, BMI 17 Plan continue on current medication regimen ,monitoring and symptomatic treatment. Midodrine dose increased with parameters to hold if systolic blood pressure greater than 110. Patient has chose to proceed with hemodialysis, case management working on subacute rehab to facilitate hemodialysis. Prognosis guarded given multiple complex medical issues. The impression and plan of care has been dictated as directed. : I performed a history and examination of this patient, discussed the same with the dictator. I agree with the dictator's note ,documented as a scribe. Any additional findings or plans will be noted.
[2023-12-06] MEDS: MIDODRINE 5 MG TAB PO SCH (13:39)
--- NOTE | 2023-12-06 15:16 | P.PN ---
Subjective Progress Note Date: 12/06/23 Principal diagnosis: Reason for follow-up is a urinary tract infection Patient is a 83-year-old male with a past medical history significant for hyperlipidemia COPD heart failure with atrial fibrillation BPH presenting to the hospital for evaluation of diarrhea also difficulty urination requiring Felder catheter placement did have a positive UA and urine has been finalized with drug-resistant Proteus prompting this consultation. On today's evaluation that is 12/06/2023, patient has been afebrile, patient is breathing comfortably and is currently on 2 L nasal cannula oxygen, patient denies any worsening cough or sputum production no chest pain, patient denies nausea vomiting or diarrhea and no abdominal pain. Patient did have a INR of 2.2 no CBC was done today Objective - Vital Signs Vital signs: Vital Signs Temp 97.4 F L 12/06/23 07:42 Pulse 74 12/06/23 11:54 Resp 16 12/06/23 08:00 BP 92/55 12/06/23 07:42 Pulse Ox 98 12/06/23 07:57 FiO2 Intake & Output 12/05/23 12/06/23 12/06/23 18:59 06:59 18:59 Intake Total 118 Output Total 100 Balance -100 118 Intake: Oral 118 Output: Urine 100 Other: Voiding Method Indwelling Catheter Indwelling Catheter Indwelling Catheter # Bowel Movements 2 - Exam GENERAL DESCRIPTION: An elderly male lying in bed in no distress RESPIRATORY SYSTEM: Unlabored breathing , decreased breath sounds at bases HEART: S1 S2 regular rate and rhythm , ABDOMEN: Soft , no tenderness EXTREMITIES: No edema feet - Labs CBC & Chem 7: 12/05/23 05:40 12/05/23 05:40 Labs: Abnormal Lab Results - Last 24 Hours (Table) 12/05/23 12/06/23 Range/Units 16:35 06:41 PT 22.7 H 21.8 H (10.0-12.5) sec INR 2.3 H 2.2 H (<1.2) Assessment and Plan (1) Cystitis Current Visit: Yes Status: Acute Code(s): N30.90 - CYSTITIS, UNSPECIFIED WITHOUT HEMATURIA SNOMED Code(s): 84640388 (2) UTI (urinary tract infection) Current Visit: Yes Status: Acute Code(s): N39.0 - URINARY TRACT INFECTION, SITE NOT SPECIFIED SNOMED Code(s): 21591484 Plan: 1patient presented to hospital with diarrhea he also have some suprapubic discomfort did have a significantly positive UA concerning for symptomatic urinary tract infection likely from gram-negative pathogen with urine currently showing drug-resistant Proteus and Pseudomonas aeruginosa that is sensitive to cefepime 2-patient seem to have shown improvement and will continue Zosyn and monitor clinical course closely 3diarrhea possible antibiotic associated encouraged increasing probiotic and yogurt intake we will continue with Questran for symptomatic relief Dictation was produced using [employer] dictation software. please excuse any gr ammatical, word or spelling errors. Time with Patient: Less than 30
--- NOTE | 2023-12-06 16:30 | P.PN ---
Subjective patient is seen for follow-up for acute kidney injury. Started on hemodialysis on 11/30/2023 due to worsening renal function and concern for uremia. Mentation improved with dialysis however patient had decided not to continue with renal replacement therapy. Patient changed his mind yesterday and would like to continue with dialysis for now. Urine output remains low with only 50 ML charted for 24 hours. Blood pressure remains low. Objective - Vital Signs Vital signs: Vital Signs Temp 97.6 F 12/06/23 14:00 Pulse 68 12/06/23 14:00 Resp 17 12/06/23 14:00 BP 92/43 12/06/23 14:00 Pulse Ox 97 12/06/23 14:00 FiO2 Intake & Output 12/05/23 12/06/23 12/06/23 18:59 06:59 18:59 Intake Total 118 Output Total 100 50 Balance -100 68 Weight 50.802 kg Intake: Oral 118 Output: Urine 100 50 Uretheral (Felder) 50 Other: Voiding Method Indwelling Catheter Indwelling Catheter Indwelling Catheter # Bowel Movements 2 1 - Exam patient is awake, comfortable, no acute distress. Alert and oriented x 3. Examination of the heart S1 and S2 Examination of the lungs bilateral breath sounds are heard Abdomen is soft nontender Examination of lower extremity shows no significant edema - Labs CBC & Chem 7: 12/05/23 05:40 12/05/23 05:40 Labs: Abnormal Lab Results - Last 24 Hours (Table) 12/05/23 12/06/23 Range/Units 16:35 06:41 PT 22.7 H 21.8 H (10.0-12.5) sec INR 2.3 H 2.2 H (<1.2) Assessment and Plan Assessment: 1. Acute kidney injury secondary to obstructive uropathy and infection. Creatinine near 1 in May 2023. Renal function worse with creatinine 4.59 November 30, 2023. Started on hemodialysis November 30 2023 due to concern for uremia. Poor urine output noted. Patient had decided not to continue with dialysis but has changed his mind now and is scheduled for dialysis today. No hydronephrosis noted on CT. 2. Proteus UTI on antibiotics. 3. Chronic systolic CHF ejection fraction of 30 to 35%, mild to moderate aortic stenosis/tricuspid regurgitation and moderate to severe aortic regurgitation noted on echocardiogram done in July 2023. 4. Metabolic acidosis secondary to acute kidney injury and IV fluids. Status post bicarb drip. Improved. Now on oral bicarb. 5. Urinary retention. Has Felder catheter. On Flomax. Seen by urology. No further interventions planned. Felder management per urology. 6. Anemia. IV iron was on hold due to acute infection. On Aranesp. Plan: Hemodialysis today and repeat in a.m. Add IV iron. It was initially held due to acute infection. Continue with Aranesp Continue with Felder catheter. Continue antibiotics. Encouraged increased oral intake.
[2023-12-06] MEDS: WARFARIN 2 MG TAB PO ONE (16:49)
[2023-12-07 04:32] LABS: INR 2.2 (<1.2); Prothrombin Time 22.2 sec (10.0-12.5)
[2023-12-07] MEDS: MIDODRINE 5 MG TAB PO ONE (09:29)
[2023-12-07 10:03] LABS: BUN/Creat Ratio 13.65 Ratio (12.00-20.00); Blood Urea Nitrogen 46.4 mg/dL (9.0-27.0); Carbon Dioxide 24.7 mmol/L (21.6-31.8); Chloride 99 mmol/L (96-109); Glucose 101 mg/dL (70-110); Potassium 4.6 mmol/L (3.5-5.5); Sodium 140 mmol/L (135-145)
--- NOTE | 2023-12-07 10:29 | P.PN ---
Subjective December 07, 2023: Patient is undergoing dialysis at this time. He had previously refused dialysis after developing acute cardiorenal syndrome on this admission. It was discussed with him all his multiple options and he was unsure what to do and finally decided proceed with dialysis, to go to [facility] for rehabilitation, and is aware that after several weeks of his kidneys do not return and function that he could stop dialysis and be made hospice. He denies any significant complaints today other than being cold. Vital signs are essentially normal. He is a borderline hypotensive at 92/53. Pulse ox 99% on 4 L O2 he is afebrile. Labs this morning show his creatinine is down from 5.1-3.4. GFR is 17. Stool for occult blood was positive. INR today is 2.2. Hemoglobin is pending from today, 2 days ago was 7.4. Mentation is close to her baseline at this time. Nephrology and infectious ease are following. He is positive for Proteus UTI. He has a history of urinary retention. Objective - Vital Signs Vital signs: Vital Signs Temp 97.5 F L 12/07/23 07:34 Pulse 74 12/07/23 08:00 Resp 16 12/07/23 08:00 BP 92/53 12/07/23 07:34 Pulse Ox 99 12/07/23 07:34 FiO2 Intake & Output 12/06/23 12/07/23 12/07/23 18:59 06:59 18:59 Intake Total 118 500 Output Total 100 1272 Balance 18 -772 Weight 50.802 kg Intake: Oral 118 Hemodialysis 500 Output: Urine 100 Uretheral (Felder) 50 Hemodialysis 886 Hemodialysis Net Amount 386 Other: Voiding Method Indwelling Catheter Indwelling Catheter Indwelling Catheter # Bowel Movements 1 - Exam GENERAL: Thin frail elderly male and in no acute distress. Currently undergoing dialysis NECK: Normal range of motion, supple without lymphadenopathy or JVD, no thyromegaly LUNGS: Breath sounds coarse with decreased breath sounds consistent with his underlying COPD HEART: Regular rate and rhythm there is 1/6 systolic ejection murmur noted., rubs or gallops.S1S2 Normal ABDOMEN: Soft, nontender, normoactive bowel sounds. No guarding, no rebound. No masses appreciated. EXTREMITIES: Normal range of motion, no pitting or edema. No clubbing or cyanosis. NEUROLOGICAL: Cranial nerves II through XII grossly intact. Normal speech, normal gait. PSYCH: Normal mood, normal affect. SKIN: Warm, Dry, normal turgor, no rashes or lesions noted. - Labs CBC & Chem 7: 12/05/23 05:40 12/07/23 03:38 Labs: Abnormal Lab Results - Last 24 Hours (Table) 12/07/23 12/07/23 Range/Units 03:38 03:38 PT 22.2 H (10.0-12.5) sec INR 2.2 H (<1.2) Anion Gap 16.30 H (4.00-12.00) mmol/L BUN 46.4 H (9.0-27.0) mg/dL Creatinine 3.4 H (0.6-1.5) mg/dL Est GFR (CKD-EPI) 17 L (>=60) Calcium 8.0 L (8.7-10.3) mg/dL Assessment and Plan (1) Diarrhea Current Visit: Yes Status: Acute Code(s): R19.7 - DIARRHEA, UNSPECIFIED SNOMED Code(s): 44436027 (2) Moderate dehydration Current Visit: Yes Status: Acute Code(s): E86.0 - DEHYDRATION SNOMED Code(s): 1223422044515 (3) Acute on chronic renal failure Current Visit: Yes Status: Acute Code(s): N17.9 - ACUTE KIDNEY FAILURE, UNSPECIFIED; N18.9 - CHRONIC KIDNEY DISEASE, UNSPECIFIED SNOMED Code(s): 875516387 (4) Cystitis Current Visit: Yes Status: Acute Code(s): N30.90 - CYSTITIS, UNSPECIFIED WITHOUT HEMATURIA SNOMED Code(s): 37444913 (5) Chronic respiratory failure Current Visit: No Status: Acute Code(s): J96.10 - CHRONIC RESPIRATORY FAILU RE, UNSP W HYPOXIA OR HYPERCAPNIA SNOMED Code(s): 28311682 (6) H/O aortic valve replacement Current Visit: No Status: Acute Code(s): Z95.2 - PRESENCE OF PROSTHETIC HEART VALVE SNOMED Code(s): 3368618862310 (7) Paroxysmal atrial fibrillation Current Visit: No Status: Acute Code(s): I48.0 - PAROXYSMAL ATRIAL FIBRILLATION SNOMED Code(s): 582821717 (8) Pulmonary hypertension Current Visit: No Status: Acute Code(s): I27.20 - PULMONARY HYPERTENSION, UNSPECIFIED SNOMED Code(s): 67764526 (9) Systolic congestive heart failure Current Visit: No Status: Acute Code(s): I50.20 - UNSPECIFIED SYSTOLIC (CONGESTIVE) HEART FAILURE SNOMED Code(s): 00303237 (10) Hyponatremia Current Visit: Yes Status: Acute Code(s): E87.1 - HYPO-OSMOLALITY AND HYPONATREMIA SNOMED Code(s): 56692645 (11) Urinary retention Current Visit: Yes Status: Acute Code(s): R33.9 - RETENTION OF URINE, UNSPECIFIED SNOMED Code(s): 606115319 (12) Metabolic acidosis Current Visit: Yes Status: Acute Code(s): E87.20 - ACIDOSIS, UNSPECIFIED SNOMED Code(s): 85678952 (13) Anemia Current Visit: No Status: Acute Code(s): D64.9 - ANEMIA, UNSPECIFIED SNOMED Code(s): 279376314 Plan: At this time patient has agreed and is undergoing dialysis. He remains on Coumadin for his atrial fibrillation. He has positive for Hemoccult stool will continue to monitor his blood count. His anticoagulant may need to be discontinued. He is planning on ECF at [facility] for rehabilitation and to continue dialysis in the hopes that he will not need this for life. Repeat labs in a.m.. Wait on further recommendations from nephrology regarding his dialysis schedule. Continue cholestyramine for his diarrhea. He will continue his updrafts for COPD. He is on midodrine for hypotension. Infectious diseases manage monitoring and is continued on antibiotics of Zosyn at this time. He will be reevaluated in the next 24 hours.
[2023-12-07 11:27] LABS: Basophils # (A) 0.02 X 10*3/uL (0.00-0.10); Basophils % (A) 0.4 %; Eosinophils # (A) 0.07 X 10*3/uL (0.04-0.35); Eosinophils % (A) 1.4 %; HCT 25.9 % (39.6-50.0); HGB 7.7 g/dL (13.0-17.0); Lymphocytes # (A) 0.58 X 10*3/uL (0.90-5.00); Lymphocytes % (A) 11.8 %; MCH 30.2 pg (27.0-32.0); MCHC 29.7 g/dL (32.0-37.0); MCV 101.6 FL (80.0-97.0); Mean Platelet Volume 10.9 FL (9.5-12.2); Monocytes # (A) 0.68 X 10*3/uL (0.20-1.00); Monocytes % (A) 13.8 %; NRBC Per 100 WBC 0.02 X 10*3/uL (0.00-0.01); Neutrophils # (A) 3.53 X 10*3/uL (1.80-7.70); Neutrophils % (A) 71.6 %; Platelet Count 154 X 10*3/uL (140-440); RBC 2.55 X 10*6/uL (4.40-5.60); WBC 4.93 X 10*3/uL (4.50-10.00)
--- NOTE | 2023-12-07 12:44 | P.PN ---
Subjective patient is seen for follow-up for acute kidney injury. Started on hemodialysis on 11/30/2023 due to worsening renal function and concern for uremia. Mentation improved with dialysis however patient had decided not to continue with renal replacement therapy. Patient changed his mind and restarted dialysis yesterday. Urine output remains low with only 100 ML charted for 24 hours. Blood pressure remains low. UF only about 600 mL today. Objective - Vital Signs Vital signs: Vital Signs Temp 97.5 F L 12/07/23 07:34 Pulse 76 12/07/23 12:16 Resp 16 12/07/23 08:00 BP 92/53 12/07/23 07:34 Pulse Ox 99 12/07/23 07:34 FiO2 Intake & Output 12/06/23 12/07/23 12/07/23 18:59 06:59 18:59 Intake Total 118 500 Output Total 100 1272 Balance 18 -772 Weight 50.802 kg Intake: Oral 118 Hemodialysis 500 Output: Urine 100 Uretheral (Felder) 50 Hemodialysis 886 Hemodialysis Net Amount 386 Other: Voiding Method Indwelling Catheter Indwelling Catheter Indwelling Catheter # Bowel Movements 1 - Exam patient is awake, comfortable, no acute distress. Alert and oriented x 3. Examination of the heart S1 and S2 Examination of the lungs bilateral breath sounds are heard Abdomen is soft nontender Examination of lower extremity shows trace edema - Labs CBC & Chem 7: 12/07/23 03:38 12/07/23 03:38 Labs: Abnormal Lab Results - Last 24 Hours (Table) 12/07/23 12/07/23 12/07/23 Range/Units 03:38 03:38 03:38 RBC 2.55 L (4.40-5.60) X 10*6/uL Hgb 7.7 L (13.0-17.0) g/dL Hct 25.9 L (39.6-50.0) % MCV 101.6 H (80.0-97.0) FL MCHC 29.7 L (32.0-37.0) g/dL RDW 19.0 H (11.5-14.5) % Immature Gran # 0.05 H (0.00-0.04) X 10*3/uL Lymphocytes # 0.58 L (0.90-5.00) X 10*3/uL NRBC/100 WBC Diff 0.02 H (0.00-0.01) X 10*3/uL PT 22.2 H (10.0-12.5) sec INR 2.2 H (<1.2) Anion Gap 16.30 H (4.00-12.00) mmol/L BUN 46.4 H (9.0-27.0) mg/dL Creatinine 3.4 H (0.6-1.5) mg/dL Est GFR (CKD-EPI) 17 L (>=60) Calcium 8.0 L (8.7-10.3) mg/dL Assessment and Plan Assessment: 1. Acute kidney injury secondary to obstructive uropathy and infection. Creatinine near 1 in May 2023. Renal function worse with creatinine 4.59 November 30, 2023. Started on hemodialysis November 30 2023 due to concern for uremia. Poor urine output noted. Patient had decided not to continue with dialysis but has changed his mind and is now maintained on dialysis again. No hydronephrosis noted on CT. 2. Proteus UTI on antibiotics. 3. Chronic systolic CHF ejection fraction of 30 to 35%, mild to moderate aortic stenosis/tricuspid regurgitation and moderate to severe aortic regurgitation noted on echocardiogram done in July 2023. 4. Metabolic acidosis secondary to acute kidney injury and IV fluids. Status post bicarb drip. Improved. Now on oral bicarb. 5. Urinary retention. Has Felder catheter. On Flomax. Seen by urology. No further interventions planned. Felder management per urology. 6. Anemia. IV iron was on hold due to acute infection. On Aranesp. Plan: Hemodialysis today Add IV iron. It was initially held due to acute infection. Continue with Aranesp Continue with Felder catheter. Continue antibiotics. Encouraged increased oral intake.
--- NOTE | 2023-12-07 13:39 | P.PN ---
Subjective Progress Note Date: 12/07/23 Principal diagnosis: Reason for follow-up is a urinary tract infection Patient is a 83-year-old male with a past medical history significant for hyperlipidemia COPD heart failure with atrial fibrillation BPH presenting to the hospital for evaluation of diarrhea also difficulty urination requiring Felder catheter placement did have a positive UA and urine has been finalized with drug-resistant Proteus prompting this consultation. On today's evaluation that is 12/07/2023, Patient is afebrile this morning patient denies having any chest pain shortness of breath, did have occasional dry r cough, the patient is currently on 4 L nasal cannula oxygen, patient denies any abdominal pain no diarrhea no nausea no vomiting. Patient white count is 4.93, creatinine 3.4 Objective - Vital Signs Vital signs: Vital Signs Temp 97.5 F L 12/07/23 07:34 Pulse 76 12/07/23 12:16 Resp 16 12/07/23 08:00 BP 92/53 12/07/23 07:34 Pulse Ox 99 12/07/23 07:34 FiO2 Intake & Output 12/06/23 12/07/23 12/07/23 18:59 06:59 18:59 Intake Total 118 500 Output Total 100 1272 Balance 18 -772 Weight 50.802 kg Intake: Oral 118 Hemodialysis 500 Output: Urine 100 Uretheral (Felder) 50 Hemodialysis 886 Hemodialysis Net Amount 386 Other: Voiding Method Indwelling Catheter Indwelling Catheter Indwelling Catheter # Bowel Movements 1 - Exam GENERAL DESCRIPTION: An elderly male lying in bed in no distress RESPIRATORY SYSTEM: Unlabored breathing , decreased breath sounds at bases HEART: S1 S2 regular rate and rhythm , ABDOMEN: Soft , no tenderness EXTREMITIES: No edema feet - Labs CBC & Chem 7: 12/07/23 03:38 12/07/23 03:38 Labs: Abnormal Lab Results - Last 24 Hours (Table) 12/07/23 12/07/23 12/07/23 Range/Units 03:38 03:38 03:38 RBC 2.55 L (4.40-5.60) X 10*6/uL Hgb 7.7 L (13.0-17.0) g/dL Hct 25.9 L (39.6-50.0) % MCV 101.6 H (80.0-97.0) FL MCHC 29.7 L (32.0-37.0) g/dL RDW 19.0 H (11.5-14.5) % Immature Gran # 0.05 H (0.00-0.04) X 10*3/uL Lymphocytes # 0.58 L (0.90-5.00) X 10*3/uL NRBC/100 WBC Diff 0.02 H (0.00-0.01) X 10*3/uL PT 22.2 H (10.0-12.5) sec INR 2.2 H (<1.2) Anion Gap 16.30 H (4.00-12.00) mmol/L BUN 46.4 H (9.0-27.0) mg/dL Creatinine 3.4 H (0.6-1.5) mg/dL Est GFR (CKD-EPI) 17 L (>=60) Calcium 8.0 L (8.7-10.3) mg/dL Assessment and Plan (1) Cystitis Current Visit: Yes Status: Acute Code(s): N30.90 - CYSTITIS, UNSPECIFIED WITHOUT HEMATURIA SNOMED Code(s): 89619500 (2) UTI (urinary tract infection) Current Visit: Yes Status: Acute Code(s): N39.0 - URINARY TRACT INFECTION, SITE NOT SPECIFIED SNOMED Code(s): 87444569 Plan: 1patient presented to hospital with diarrhea he also have some suprapubic discomfort did have a significantly positive UA concerning for symptomatic urinary tract infection likely from gram-negative pathogen with urine currently showing drug-resistant Proteus and Pseudomonas aeruginosa that is sensitive to cefepime 2-patient seem to have shown improvement and will continue Zosyn to finish his course of therapy 3diarrhea possible antibiotic associated encouraged increasing probiotic and yogurt intake we will continue with Questran for symptomatic relief Dictation was produced using [employer] dictation software. please excuse any grammatical, word or spelling errors. Time with Patient: Less than 30
[2023-12-07] MEDS: PIPERACILLIN-TAZOBACTAM 3.375 GM in SODIUM CHLORIDE 0.9% 100 ML IVPB SCH (14:06)
[2023-12-07] MEDS: WARFARIN 2 MG TAB PO ONE (18:16)
[2023-12-07] MEDS: SODIUM FERRIC GLUCONAT-SUCROSE 125 MG in SODIUM CHLORIDE 0.9% 100 ML IVPB SCH (18:16)
[2023-12-08 04:29] LABS: INR 2.3 (<1.2); Prothrombin Time 22.8 sec (10.0-12.5)
--- NOTE | 2023-12-08 09:49 | P.PN ---
Subjective Progress Note Date: 12/06/23 12/06/2023: Patient was seen for follow-up. Patient apparently had changed his mind. He has revoked hospice, and wants to continue hemodialysis. Patient will be getting hemodialysis today. Patient is laying comfortably in the bed. Offers no complaints. Patient's niece was also present. 12/05/2023: Patient was seen for a follow-up. Patient's family members including his knees was present. Patient has decided no hemodialysis. His creatinine is creeping up. Patient still is very pleasant, communicating. This can potentially get worse with worsening renal functions. He is aware of it. 12/03/2023: Patient was seen for a follow-up. Patient's niece was present. Patient has remarkably improved. He is carrying on good conversation. He has b een talking to the family members most of the day. Slightly some periods of confusion, but much improved. Patient's family has mentioned that patient's personality is intact. He is still very lively, and entertaining during conversation. No seizure. Patient states he does not want dialysis anymore. 12/02/2023: Patient is seen by Dr. Rogelio Patrick. Please refer to his note for details. Patient is a 83-year-old male with acute UTI. Patient has reported aphasia and left-sided weakness. However on examination patient was noted to have generalized weakness and was just screaming. Dr. Patrick has initiated stroke workup and EEG. Patient is laying in the bed. He has oxygen by nasal cannula. He is slightly short of breath. He is slightly tachypneic. Patient denies headache. Patient's grand niece was present, who provided with a history as well. Patient was admitted for UTI. He has become very confused while in the hospital. At baseline patient does have end-stage COPD and CHF and is usually short of breath. This has been going on for almost a year, progressively getting worse. He uses a walker at home, lives by himself. There is no previous history of seizures. Patient for the last 2 days was alert and orient x 0. Patient's grand niece mentions that he is very interesting to talk to. He is very knowledgeable at baseline, and this is much change. Patient was started on hemodialysis, the first 1 was given on Saturday, then yesterday on Saturday and today will be the third session of hemodialysis. She has noticed she is about 25% better. Patient's grand niece states that he is not nearly baseline. Some of the work-up consisted of: His creatnine yesterday is 4.59 and baseline is below 2. Today is 3.6, much improved. TSH is 1.350 Ammonia is less than 9 +ve acute UTI. Urine culture is pseudomonas aeruginosa, proteus mirabilis CT head today reported as mild age-appropriate atrophy. No acute intra or extral axial hemorrhage. No mass effect or shift of midline structure. Tiny remote lacunar infarct in left basal ganglia. I personally reviewed CT and agree there is no acute or subacute ischemic stroke. Carotid duplex is reported as mild carotid bifurcation plaque resulting in m inimal stenosis. No hemodynamically significant stenosis based on peak systolic velocity and ratio 2D echo was reported as severely impaired left ventricular systolic function with global hypokinesis. Mitral valve by prosthesis with mild tricuspid regurgitation. Tricuspid valve repair with moderate tricuspid regurgitation and moderate pulmonary hypertension. Moderate aortic regurgitation. Objective - Vital Signs Vital signs: Vital Signs Temp 97.4 F L 12/06/23 07:42 Pulse 77 12/06/23 08:04 Resp 16 12/06/23 07:42 BP 92/55 12/06/23 07:42 Pulse Ox 98 12/06/23 07:57 FiO2 Intake & Output 12/05/23 12/06/23 12/06/23 18:59 06:59 18:59 Intake Total 118 Output Total 100 Balance -100 118 Intake: Oral 118 Output: Urine 100 Other: Voiding Method Indwelling Catheter Indwelling Catheter # Bowel Movements 2 - Exam Patient is alert and awake, in no respiratory distress. Patient's speech and language functions are completely normal. He is very pleasant. Latency time to answer questions has normalized. He is having full conversation with his family members. No seizure-like activity. Patient has mild metabolic tremors of outstretched hands. Patient pupils are equal, round and reacting, face is symmetric. Patient moves all 4 extremities. - Labs CBC & Chem 7: 12/07/23 03:38 12/07/23 03:38 Labs: Abnormal Lab Results - Last 24 Hours (Table) 12/05/23 12/06/23 Range/Units 16:35 06:41 PT 22.7 H 21.8 H (10.0-12.5) sec INR 2.3 H 2.2 H (<1.2) Assessment and Plan Assessment: This is an 83 year-old gentleman who presents to the ED because of acute UTI who is also having worsening of acute on chronic renal failure, has developed altered mental status and generalized weakness. Altered mental status, likely due to toxic-metabolic encephalopathy due to worsening of kidney function and acute UTI and medication effect (Cephalosporin toxicity). CT head negative for any acute or subacute ischemic stroke. Carotid duplex is negative for significant carotid stenosis. Abnormal EEG, with evidence of triphasic waves, which at times becomes rhythmic, concerning for seizure tendency. Probable due to cefepime induced neurotoxicity. Acute on chronic kidney insuffiency Acute UTI (urine culture pseudomonas aeruginosa, proteus mirabilis). Atrial fibrillation on coumadin Left ventricular systolic function with global hypokinesis and moderate pulmonary pulmonary hypertension as well as moderate aortic regurgitation on 2D echo Plan: Patient wants to resume hemodialysis. He will be having hemodialysis today. Hakeem pepper has revoked hospice. Patient's mentation has remarkably improved since he has been maintained on hemodialysis, and cefepime has been discontinued. No indication for repeat EEG, as his mentation has almost returned back to baseline.. Patient currently on Zosyn. ID following. EEG was very abnormal due to background slowing, suggestive of moderate to severe encephalopathy, also evidence of frequent high amplitude waves, which appears to have some triphasic quality, but becomes regular, rhythmic at 3 Hz. Nonconvulsive status also in the differential. Clinically however this is probably due to severe metabolic encephalopathy. Clinically patient also had significant myoclonic jerking at that time. As patient's mentation has almost returned back to baseline, no indication for repeat EEG, or antiepileptic medication. Above pattern was likely related to severe toxic metabolic encephalopathy. Patient's B12 is 866, folate 10.5, TSH 1.35. Ammonia is < 9 Lipid panel with cholesterol 166, LDL 103, HDL 37, triglycerides 128. Patient's speech difficulty was likely due to TME. No evidence of CVA. Examination is nonfocal. We will cancel MRI. Patient is on Warfarin, INR therapeutic 2.2. Nephrology is on board. I.D. is on board. Cefepime has been switched to Zosyn. 2D echo revealed severely impaired left ventricular systolic function with global hypokinesis and moderate pulmonary pulmonary hypertension as well as moderate aortic regurgitation. Continue warfarin. Will defer the rest of medical management to primary and other specialist. Discussed with family members. Neurologically clear. Possible transfer to [facility] for [facility].
[2023-12-08 10:11] LABS: BUN/Creat Ratio 10.16 Ratio (12.00-20.00); Blood Urea Nitrogen 32.5 mg/dL (9.0-27.0); Calcium 7.6 mg/dL (8.7-10.3); Carbon Dioxide 26.3 mmol/L (21.6-31.8); Chloride 99 mmol/L (96-109); Glucose 85 mg/dL (70-110); Potassium 4.2 mmol/L (3.5-5.5); Sodium 137 mmol/L (135-145)
--- NOTE | 2023-12-08 11:49 | P.PN ---
Subjective patient is seen for follow-up for acute kidney injury. Started on hemodialysis on 11/30/2023 due to worsening renal function and concern for uremia. Mentation improved with dialysis however patient had decided not to continue with renal replacement therapy. Patient changed his mind and restarted dialysis on 12/06/2023 Urine output remains low with only 100 ML charted for 24 hours. Blood pressure remains low. UF only about 600 mL yesterday. Objective - Vital Signs Vital signs: Vital Signs Temp 97.4 F L 12/08/23 07:26 Pulse 63 12/08/23 11:39 Resp 17 12/08/23 08:00 BP 95/57 12/08/23 11:39 Pulse Ox 97 12/08/23 07:26 FiO2 Intake & Output 12/07/23 12/08/23 12/08/23 18:59 06:59 18:59 Intake Total 600 Output Total 1825 1 Balance -1225 -1 Intake: Hemodialysis 600 Output: Urine 25 Stool 1 Hemodialysis 1200 Hemodialysis Net Amount 600 Other: Voiding Method Indwelling Catheter Indwelling Catheter - Exam patient is awake, comfortable, no acute distress. Alert and oriented x 3. Examination of the heart S1 and S2 Examination of the lungs bilateral breath sounds are heard Abdomen is soft nontender Examination of lower extremity shows trace edema - Labs CBC & Chem 7: 12/07/23 03:38 12/08/23 03:55 Labs: Abnormal Lab Results - Last 24 Hours (Table) 12/08/23 12/08/23 Range/Units 03:55 03:55 PT 22.8 H (10.0-12.5) sec INR 2.3 H (<1.2) BUN 32.5 H (9.0-27.0) mg/dL Creatinine 3.2 H (0.6-1.5) mg/dL Est GFR (CKD-EPI) 19 L (>=60) BUN/Creatinine Ratio 10.16 L (12.00-20.00) Ratio Calcium 7.6 L (8.7-10.3) mg/dL Assessment and Plan Assessment: 1. Acute kidney injury secondary to obstructive uropathy and infection. Creatinine near 1 in May 2023. Renal function worse with creatinine 4.59 November 30, 2023. Started on hemodialysis November 30 2023 due to concern for uremia. Poor urine output noted. Patient had decided not to continue with dialysis but has changed his mind and is now maintained on dialysis again. He will need an IJ permacath prior to discharge. No hydronephrosis noted on CT. 2. Proteus UTI on antibiotics. 3. Chronic systolic CHF ejection fraction of 30 to 35%, mild to moderate aortic stenosis/tricuspid regurgitation and moderate to severe aortic regurgitation noted on echocardiogram done in July 2023. 4. Metabolic acidosis secondary to acute kidney injury and IV fluids. Status post bicarb drip. Improved. Now on oral bicarb. 5. Urinary retention. Has Felder catheter. On Flomax. Seen by urology. No further interventions planned. Felder management per urology. 6. Anemia. IV iron was initially on hold due to acute infection. Started IV iron yesterday. On Aranesp. Plan: Hemodialysis in a.m. Patient will need IJ permacath if he continues with renal replacement therapy Continue with Aranesp Continue with Felder catheter. Continue antibiotics. Encouraged increased oral intake.
--- NOTE | 2023-12-08 11:49 | P.PN ---
Subjective December 07, 2023: Patient is undergoing dialysis at this time. He had previously refused dialysis after developing acute cardiorenal syndrome on this admission. It was discussed with him all his multiple options and he was unsure what to do and finally decided proceed with dialysis, to go to [facility] for rehabilitation, and is aware that after several weeks of his kidneys do not return and function that he could stop dialysis and be made hospice. He denies any significant complaints today other than being cold. Vital signs are essentially normal. He is a borderline hypotensive at 92/53. Pulse ox 99% on 4 L O2 he is afebrile. Labs this morning show his creatinine is down from 5.1-3.4. GFR is 17. Stool for occult blood was positive. INR today is 2.2. Hemoglobin is pending from today, 2 days ago was 7.4. Mentation is close to her baseline at this time. Nephrology and infectious ease are following. He is positive for Proteus UTI. He has a history of urinary retention. December 08, 2023: Patient is resting calmly with his room with family at bedside. He continues to have low urine output. He continues dialysis. His case was discussed with Dr. Nye. She indicates he will need a dialysis catheter for and discharge to [facility]. Take himself has no complaints today other than needing to have a bowel movement. Vitals are stable, blood pressure remains in the 90s systolic. Pulse oximetry remains in the 90s on 4 L of O2. Labs today show an INR 2.3 and a BUN of 32.5 with creatinine 3.2 and a GFR of 19. Urine output is only recorded 25 cc currently. Infectious disease recommends finishing his course of Zosyn. Objective - Vital Signs Vital signs: Vital Signs Temp 97.4 F L 12/08/23 07:26 Pulse 63 12/08/23 11:39 Resp 17 12/08/23 08:00 BP 95/57 12/08/23 11:39 Pulse Ox 97 12/08/23 07:26 FiO2 Intake & Output 12/07/23 12/08/23 12/08/23 18:59 06:59 18:59 Intake Total 600 Output Total 1825 1 Balance -1225 -1 Intake: Hemodialysis 600 Output: Urine 25 Stool 1 Hemodialysis 1200 Hemodialysis Net Amount 600 Other: Voiding Method Indwelling Catheter Indwelling Catheter - Exam GENERAL: Thin frail elderly male and in no acute distress. Resting comfortably with family at bedside NECK: Normal range of motion, supple without lymphadenopathy or JVD, no thyromegaly LUNGS: Breath sounds coarse with decreased breath sounds consistent with his underlying COPD HEART: Regular rate and rhythm there is 1/6 systolic ejection murmur noted., rubs or gallops.S1S2 Normal ABDOMEN: Soft, nontender, normoactive bowel sounds. No guarding, no rebound. No masses appreciated. EXTREMITIES: Normal range of motion, no pitting or edema. No clubbing or cyanosis. NEUROLOGICAL: Cranial nerves II through XII grossly intact. Normal speech, normal gait. PSYCH: Normal mood, normal affect. SKIN: Warm, Dry, normal turgor, no rashes or lesions noted. - Labs CBC & Chem 7: 12/07/23 03:38 12/08/23 03:55 Labs: Abnormal Lab Results - Last 24 Hours (Table) 12/08/23 12/08/23 Range/Units 03:55 03:55 PT 22.8 H (10.0-12.5) sec INR 2.3 H (<1.2) BUN 32.5 H (9.0-27.0) mg/dL Creatinine 3.2 H (0.6-1.5) mg/dL Est GFR (CKD-EPI) 19 L (>=60) BUN/Creatinine Ratio 10.16 L (12.00-20.00) Ratio Calcium 7.6 L (8.7-10.3) mg/dL Assessment and Plan (1) Acute on chronic renal failure Current Visit: Yes Status: Acute Code(s): N17.9 - ACUTE KIDNEY FAILURE, UNSPECIFIED; N18.9 - CHRONIC KIDNEY DISEASE, UNSPECIFIED SNOMED Code(s): 836992846 (2) Diarrhea Current Visit: Yes Status: Acute Code(s): R19.7 - DIARRHEA, UNSPECIFIED SNOMED Code(s): 18322381 (3) Moderate dehydration Current Visit: Yes Status: Acute Code(s): E86.0 - DEHYDRATION SNOMED Code(s): 8688746448080 (4) Cystitis Current Visit: Yes Status: Acute Code(s): N30.90 - CYSTITIS, UNSPECIFIED WITHOUT HEMATURIA SNOMED Code(s): 14946225 (5) Chronic respiratory failure Current Visit: No Status: Acute Code(s): J96.10 - CHRONIC RESPIRATORY FAILURE, UNSP W HYPOXIA OR HYPERCAPNIA SNOMED Code(s): 79983240 (6) H/O aortic valve replacement Current Visit: No Status: Acute Code(s): Z95.2 - PRESENCE OF PROSTHETIC HEART VALVE SNOMED Code(s): 0380182999858 (7) Paroxysmal atrial fibrillation Current Visit: No Status: Acute Code(s): I48.0 - PAROXYSMAL ATRIAL FIBRILLATION SNOMED Code(s): 858665604 (8) Pulmonary hypertension Current Visit: No Status: Acute Code(s): I27.20 - PULMONARY HYPERTENSION, UNSPECIFIED SNOMED Code(s): 44923999 (9) Systolic congestive heart failure Current Visit: No Status: Acute Code(s): I50.20 - UNSPECIFIED SYSTOLIC (CONGESTIVE) HEART FAILURE SNOMED Code(s): 17914821 (10) Hyponatremia Current Visit: Yes Status: Acute Code(s): E87.1 - HYPO-OSMOLALITY AND HYPONATREMIA SNOMED Code(s): 91935229 (11) Urinary retention Current Visit: Yes Status: Acute Code(s): R33.9 - RETENTION OF URINE, UNSPECIFIED SNOMED Code(s): 323556154 (12) Metabolic acidosis Current Visit: Yes Status: Acute Code(s): E87.20 - ACIDOSIS, UNSPECIFIED SNOMED Code(s): 23502514 (13) Anemia Current Visit: No Status: Acute Code(s): D64.9 - ANEMIA, UNSPECIFIED SNOMED Code(s): 893662568 Plan: Continue medications and treatments, he will continue dialysis, expect dialysis catheter placed tomorrow, expect discharge tomorrow and on Saturday or Saturday, will continue physical therapy, repeat labs in a.m., he will be reevaluated by family medicine in the next 24 hours.
[2023-12-08] MEDS: WARFARIN 2 MG TAB PO ONE (17:12)
--- NOTE | 2023-12-08 22:25 | P.PN ---
Subjective Progress Note Date: 12/08/23 Principal diagnosis: Reason for follow-up is a urinary tract infection Patient is a 83-year-old male with a past medical history significant for hyperlipidemia COPD heart failure with atrial fibrillation BPH presenting to the hospital for evaluation of diarrhea also difficulty urination requiring Felder catheter placement did have a positive UA and urine has been finalized with drug-resistant Proteus prompting this consultation. On today's evaluation that is 12/08/2023,the patient denies any fever or any chills, patient is breathing comfortably on 4 L nasal cannula oxygen the patient denies chest pain shortness of breath and did have some dry cough, patient den ies abdominal pain, no nausea vomiting or diarrhea. Patient white count is 4.93 as of yesterday no CBC was done today creatinine is 3.2 INR is 2.3 Objective - Vital Signs Vital signs: Vital Signs Temp 97.7 F 12/08/23 14:00 Pulse 68 12/08/23 16:45 Resp 18 12/08/23 14:00 BP 93/44 12/08/23 17:18 Pulse Ox 95 12/08/23 14:00 FiO2 Intake & Output 12/07/23 12/08/23 12/08/23 18:59 06:59 18:59 Intake Total 600 Output Total 1825 1 Balance -1225 -1 Intake: Hemodialysis 600 Output: Urine 25 Stool 1 Hemodialysis 1200 Hemodialysis Net Amount 600 Other: Voiding Method Indwelling Catheter Indwelling Catheter - Exam GENERAL DESCRIPTION: An elderly male lying in bed in no distress RESPIRATORY SYSTEM: Unlabored breathing , decreased breath sounds at bases HEART: S1 S2 regular rate and rhythm , ABDOMEN: Soft , no tenderness EXTREMITIES: No edema feet - Labs CBC & Chem 7: 12/07/23 03:38 12/08/23 03:55 Labs: Abnormal Lab Results - Last 24 Hours (Table) 12/08/23 12/08/23 Range/Units 03:55 03:55 PT 22.8 H (10.0-12.5) sec INR 2.3 H (<1.2) BUN 32.5 H (9.0-27.0) mg/dL Creatinine 3.2 H (0.6-1.5) mg/dL Est GFR (CKD-EPI) 19 L (>=60) BUN/Creatinine Ratio 10.16 L (12.00-20.00) Ratio Calcium 7.6 L (8.7-10.3) mg/dL Assessment and Plan (1) Cystitis Current Visit: Yes Status: Acute Code(s): N30.90 - CYSTITIS, UNSPECIFIED WITHOUT HEMATURIA SNOMED Code(s): 28775091 (2) UTI (urinary tract infection) Current Visit: Yes Status: Acute Code(s): N39.0 - URINARY TRACT INFECTION, SITE NOT SPECIFIED SNOMED Code(s): 53875725 Plan: 1patient presented to hospital with diarrhea he also have some suprapubic discomfort did have a significantly positive UA concerning for symptomatic urinary tract infection likely from gram-negative pathogen with urine currently showing drug-resistant Proteus and Pseudomonas aeruginosa that is sensitive to cefepime 2-patient has received adequate antibiotic therapy for underlying UTI we will go ahead and discontinue Zosyn and monitor the patient closely off antibiotic Dictation was produced using [employer] dictation software. please excuse any grammatical, word or spelling errors. Time with Patient: Less than 30
[2023-12-09 05:28] LABS: INR 3.3 (<1.2); Prothrombin Time 32.2 sec (10.0-12.5)
--- NOTE | 2023-12-09 08:41 | P.PN ---
Subjective Patient is seen in follow-up for acute kidney injury. Renal function worse with creatinine 4.59 yesterday. Started on hemodialysis November 30, 2023 due to worsening renal function and concern for uremia. Has Felder catheter for urinary retention. Patient refused hemodialysis for some time but then decided to resume. Scheduled for another treatment today. Oral intake fair. Vital signs are stable. General: No acute distress. HEENT: Head exam is unremarkable. On nasal cannula. LUNGS: No audible rhonchi or wheezes. HEART: Rate and Rhythm are regular. ABDOMEN: Nontender. EXTREMITITES: No edema. Objective - Vital Signs Vital signs: Vital Signs Temp 98 F 12/09/23 07:00 Pulse 62 12/09/23 07:00 Resp 16 12/09/23 07:00 BP 94/57 12/09/23 07:00 Pulse Ox 100 12/09/23 07:00 FiO2 Intake & Output 12/08/23 12/09/23 12/09/23 18:59 06:59 18:59 Output Total 26 0 Balance -26 0 Output: Urine 25 0 Stool 1 Other: Voiding Method Indwelling Catheter # Bowel Movements 4 - Labs CBC & Chem 7: 12/07/23 03:38 12/08/23 03:55 Labs: Abnormal Lab Results - Last 24 Hours (Table) 12/08/23 12/09/23 Range/Units 03:55 04:31 PT 32.2 H (10.0-12.5) sec INR 3.3 H (<1.2) BUN 32.5 H (9.0-27.0) mg/dL Creatinine 3.2 H (0.6-1.5) mg/dL Est GFR (CKD-EPI) 19 L (>=60) BUN/Creatinine Ratio 10.16 L (12.00-20.00) Ratio Calcium 7.6 L (8.7-10.3) mg/dL Assessment and Plan Plan: Assessment: 1. Acute kidney injury secondary to obstructive uropathy and infection. Creatinine near 1 in May 2023. Renal function worse with creatinine 4.59 November 30, 2023. Started on hemodialysis November 30 2023 due to concern for uremia. Urine output low. No hydronephrosis noted on CT. 2. Proteus UTI s/p antibiotics. ID following. 3. Chronic systolic CHF ejection fraction of 30 to 35%, mild to moderate aortic stenosis/tricuspid regurgitation and moderate to severe aortic regurgitation noted on echocardiogram done in July 2023. 4. Metabolic acidosis secondary to acute kidney injury and IV fluids. Status post bicarb drip. Further improved with dialysis. 5. Urinary retention. Has Felder catheter. On Flomax. Seen by urology. No further interventions planned. Felder management per urology. 6. Anemia. Receiving IV iron. On Aranesp. Plan: Hemodialysis today. Will maintain on Saturday schedule. Maintain midodrine. Encouraged oral intake. Continue to monitor renal function and urine output. Serologies negative except for mildly decreased C3 level. Urine eosinophils negative. Continue to monitor for renal recovery. Lasix 80 mg IV once today. Patient will need permacath placed and temporary femoral dialysis catheter re moved prior to discharge. Discussed with RN. Vascular surgery will be notified today. Check phosphorus level.
[2023-12-09 08:46] LABS: BUN/Creat Ratio 10.04 Ratio (12.00-20.00); Blood Urea Nitrogen 45.2 mg/dL (9.0-27.0); Calcium 7.7 mg/dL (8.7-10.3); Carbon Dioxide 26.2 mmol/L (21.6-31.8); Chloride 101 mmol/L (96-109); Glucose 80 mg/dL (70-110); Potassium 4.1 mmol/L (3.5-5.5); Sodium 141 mmol/L (135-145)
[2023-12-09 08:53] LABS: Basophils # (A) 0.02 X 10*3/uL (0.00-0.10); Basophils % (A) 0.3 %; Eosinophils # (A) 0.04 X 10*3/uL (0.04-0.35); Eosinophils % (A) 0.5 %; HCT 25.1 % (39.6-50.0); HGB 7.5 g/dL (13.0-17.0); Lymphocytes # (A) 0.63 X 10*3/uL (0.90-5.00); Lymphocytes % (A) 8.7 %; MCH 30.1 pg (27.0-32.0); MCHC 29.9 g/dL (32.0-37.0); MCV 100.8 FL (80.0-97.0); Mean Platelet Volume 10.3 FL (9.5-12.2); Monocytes # (A) 0.67 X 10*3/uL (0.20-1.00); Monocytes % (A) 9.2 %; NRBC Per 100 WBC 0.03 X 10*3/uL (0.00-0.01); Neutrophils # (A) 5.87 X 10*3/uL (1.80-7.70); Neutrophils % (A) 80.6 %; Platelet Count 191 X 10*3/uL (140-440); RBC 2.49 X 10*6/uL (4.40-5.60); RDW 19.5 % (11.5-14.5); WBC 7.28 X 10*3/uL (4.50-10.00)
--- NOTE | 2023-12-09 11:27 | P.DS ---
Providers Date of admission: 11/25/23 07:28 Expected date of discharge: 12/09/23 Attending physician: Sae Rodriguez Consults: 11/23/23 07:37 Consult Physician Routine Consulting Provider: Antonina Mcpherson Consult Reason/Comments: CANDACE Do you want consulting provider notified?: Yes, Notify in am 11/25/23 07:53 Consult Physician Routine Consulting Provider: Holden López Consult Reason/Comments: Retention Do you want consulting provider notified?: Yes 11/25/23 15:40 Consult Physician Routine Consulting Provider: Hardeep Yen Consult Reason/Comments: Acute UTI, negative bacilli, Proteus Mirabilis, acute renal failure Do you want consulting provider notified?: Yes 11/30/23 10:47 Consult Physician Stat Consulting Provider: Low Sloan Consult Reason/Comments: Peritonitis with Dialysis, Chronic Renal Failure, Do you want consulting provider notified?: Yes, Notify in am 11/30/23 10:51 Consult Physician Stat Consulting Provider: Neurology Coverage Consult Reason/Comments: expressive aphasia new onset Do you want consulting provider notified?: Yes 11/30/23 11:44 Consult Physician Routine Consulting Provider: Polo Cutler Consult Reason/Comments: temporary dialysis cath Do you want consulting provider notified?: Yes 12/02/23 13:02 Consult Physician Routine Consulting Provider: Brandt Pendleton Consult Reason/Comments: afib, rvr, ?CVA,CHF Do you want consulting provider notified?: Yes Primary care physician: [facility] Course: Final Diagnoses: Acute UTI, Pseudomonas aeruginosa, Proteus Mirabilis, cystitis, completed antibiotic treatment. Acute metabolic encephalopathy, initially attributed to infection, acute renal failure; worsening-etiology unclear, neurology doubts acute CVA-as patient is on Coumadin, relating it more to his abnormal EEG. Neurology workup in progress. Antibiotic adjusted related to potential cephalosporin side effect. Improved with hemodialysis. Diarrhea, resolved. Constipation Dehydration Hypotension,on midodrine Acute on chronic renal failure stage IV, secondary to acute UTI, urinary retention, possibly cardiorenal syndrome. Hemodialysis initiated on 11/30/2023 secondary to concern for uremia. CT reported no hydronephrosis. Metabolic acidosis secondary to the above, status post bicarb drip. On oral bicarb Urinary retention requiring Felder catheter placement. Right basilar infiltrate,consolidation, persistent prominence of the left hilum, reported per chest x-ray. COPD Moderate to severe pulmonary hypertension Chronic hypoxic respiratory failure on home oxygen Chronic heart failure with reduced EF. Echo of 11/30/2023 reporting severe impaired LV systolic function with global hypokinesis, EF 30 to 35% History of nonischemic cardiomyopathy Anemia of chronic disease Persistent atrial fibrillation History of tissue mitral valve [facility], [facility] of tricuspid valve repair, February 2015 at [facility]; echo 11/30/2023 reporting moderate tricuspid regurgitation Hypertension Hyperlipidemia Peripheral vascular disease History of abdominal aortic aneurysm History of rheumatic fever Severe protein calorie malnutrition, BMI 17 Hospital course:11/23/23 Samir is a 83-year-old male well-known to the practice. He reports 3-day history of incessant diarrhea with multiple episodes of stools. He has a long history of atrial fibrillation, congestive heart failure, chronic renal failure, and a previous history of urinary retention with Felder catheter. Felder catheter was discontinued about 6 months ago and he had been doing well urinating without it. At this time he says he is urinating. He denies any chest pains pressures or shortness of breath that is different than any other time. He reports his stools are normal in color. Vitals are stable laboratory studies show a hyponatremia., He is chronically anemic hemoglobin is 9, BUN and creatinine are 83 and 2.47 with a GFR of 23. He is in good spirits. November 24, 2023: Patient is reevaluated today. He is feeling better overnight though he did have some confusion. He apparently called 911 while in his hospital bed. He says he realized his mistake right away and it was just after he was waking up that he felt very strange. He is feeling back to normal at this time. He denies any chest pains pressures. Shortness of breath is chronic and stable. Vital signs show temp 97.7 pulse oximetry 97% on 3 L O2, blood pressure is controlled. Labs this morning showed his sodium is now 139. Kidney function still little off with a BUN of 80 and a creatinine of 2.96. GFR is down to 19. Staff report postvoid residuals were 290 after urinating. He indicates he is urinating freely and does not wish to deal with a catheter at this time. He also reports no diarrhea overnight. Nephrology is following. 11/25/2023 worsening renal function, bicarb 15, BUN 74, creatinine 3.72, GFR 14, continues on bicarb drip. Nephrology following. blood sugars controlled. Viral studies negative, C. difficile negative. Sensorium significantly improved, alert and oriented x 3; staff reports patient is impulsive. Complains of constipation, no bowel movement in 2 days. Denies chest pain, palpitations or shortness of breath. Maintaining O2 sats in the 90s on 3 L nasal cannula. Echo from 07/25 reporting EF of 30 to 35%. Chest x-ray reported COPD with right basilar infiltrate/consolidation, persistent prominence of the left hilum. Brain CT reported no acute intracranial process. 11/26/2023 sensorium significantly improved. Maintained on bicarb drip, bicarb increased to 17, BUN 72, creatinine 3.9. Urine culture reporting gram-negative bacilli, Proteus Mirabilis, maintained on cefepime. Felder catheter for urinary retention. Evaluated by urology, recommendations noted including expecting this patient to have a higher postvoid residual of less than 500 mL. Maintaining O2 sats in the high 90s on 3 L nasal cannula. Hemoglobin decreased to 7.2, platelets 130. Denies chest pain, palpitations. INR 2.3 , anticoagulated on Coumadin .Reports very small bowel movement, MiraLAX changed from as needed to daily. 11/27/2023 mild tachycardia, low 1 teens,Bisprolol initiated. Coumadin per pharmacy dosing, INR elevated 3.7 today. Felder catheter present secondary to urinary retention. renal function worsening, creatinine 4.1. Bicarb 21.5, bicarb drip discontinued. maintaining O2 sats in the high 90s on 3 L nasal cannula. Continues on cefepime. 11/28/2023 IV fluids adjusted yesterday to half-normal saline at 75 mL, renal function slowly improving, bicarb 21.8, BUN 72, creatinine 3.9, estimated GFR 15. Urine output improving;Felder catheter.hepatitis serology nonreactive. Patient's bisoprolol resumed yesterday, heart rate better controlled. Nebulized bronchodilators adjusted yesterday with clinical improvement, continue O2 sats in the high 90s on 3 L nasal cannula, respiratory rate better controlled. Continues on cefepime, afebrile, normal WBC. Patient did not receive Coumadin last night as INR was elevated 3.7; INR decreased to 3.4, denies chest pain, palpitations or increase in shortness of breath. Hemoglobin 7.4, platelets 106. 11/29/2023 fluctuating mild confusion. Blood pressure soft, midodrine initiated. Afebrile, normal WBC, hemoglobin decreased to 7.7, platelets 109. No Coumadin last night, INR decreased to 2.3. Bicarb 22.5 BUN 38.2, creatinine increased to 4.1. Denies chest pain, palpitations. In the gas station attendant hours patient complained of increased shortness of breath, O2 was increased up to 4 L, currently maintaining O2 sats of 99 on 5 L which has been decreased back down to 3 L nasal cannula O2, maintaining O2 sats in the high 90s. Positive bowel movement last night on MiraLAX. 12/02/2023 alert, confused, recognizes PCP, converses minimally. Evaluated by neurology over the weekend for potential CVA, workup in progress, brain MRI pending. Hemodialysis initiated on 11/30/2023. Scheduled for repeat hemodialysis today. Antibiotics adjusted yesterday to Zosyn, as per ID secondary to possible uremia underlying effect of cefepime. 2D echo completed 11/30/2023 reporting severely impaired left ventricular systolic function, EF 30 to 35% with global hypokinesis, mitral valve bioprosthesis with mild tricuspid regurgitation, tricuspid valve repair with moderate tricuspid regurgitation and moderate pulmonary hypertension, moderate aortic regurgitation.Carotid Doppler reported no hemodynamic significant stenosis.Brain CT reported mild age-appropriate atrophy, no acute intra or extra-axial hemorrhage, no mass effect or shift of the midline structures, tiny remote lacunar infarct in left basal ganglia. 12/03/2023 sensorium significantly improved ,alert and oriented x 3 this morning, strength improved. Hemodialysis last night, possible repeat hemodialysis today. Bicarb 22, BUN decreased to 33, creatinine 2.4, estimated GFR increased to 26. brain MRI pending. patient exasperated regarding his prolonged illness. EEG completed yesterday reported abnormal due to background slowing, suggestive of moderate to severe encephalopathy, intermittent high amplitude sharp appearing waves at 3 Hz, suggestive of underlying cortical irritability and tendency for seizures, nonconvulsive status also on the differential. continues on Zosyn for acute UTI. afebrile, normal WBC, hemoglobin stable at 8.3, platelets 146. Maintaining O2 sats in the high 90s on 4 L nasal cannula. Passed swallow evaluation, currently eating pasta. 12-03 patient reporting he he does not want to continue with hemodialysis, family at bedside. They wish to discuss further with nephrology. Labs pending. INR 2. denies chest pain, palpitations or increase in shortness of breath. O2 sats in the high 90s on 3 L nasal cannula. Continues on Zosyn. No seizure activity. 12/05/2023 during the night developed black tarry stools, stool for occult blood ordered, pending. INR 2.3 and Coumadin per pharmacy dosing. Soft blood pressures, change midodrine from prn to scheduled. Urine output low, 150 mL/24h. declining further hemodialysis treatments. renal function worsening, BUN 75.4, creatinine 5.1. Hemoglobin decreased to 7.4. Denies chest pain, palpitations or increase in shortness of breath. Maintaining O2 sats of 94% on 4 L nasal cannula. informational hospice meeting with patient and family p ending. 12/06/2023 patient previously had declined further inpatient hemodialysis .After meeting with hospice yesterday for informational meeting, patient and family have decided to proceed with dialysis. Dialysis pending for today as per nephrology. Case management working on placement to facilitate dialysis. No further tarry stools reported. INR 2.2, Coumadin per pharmacy dosing. Blood pressures soft, maintained on midodrine, dose increased. Fatigued, denies chest pain, palpitations or increased shortness of breath. Maintaining O2 sats in the high 90s on 4 L nasal cannula. Chest x-ray pending. Midodrine dose increased with parameters to hold if systolic blood pressure greater than 110. Patient has chose to proceed with hemodialysis, case management working on subacute rehab to facilitate hemodialysis. Prognosis guarded given multiple complex medical issues. December 07, 2023: Patient is undergoing dialysis at this time. He had previously refused dialysis after developing acute cardiorenal syndrome on this admission. It was discussed with him all his multiple options and he was unsure what to do and finally decided proceed with dialysis, to go to [facility] for rehabilitation, and is aware that after several weeks of his kidneys do not return and function that he could stop dialysis and be made hospice. He denies any significant complaints today other than being cold. Vital signs are essentially normal. He is a borderline hypotensive at 92/53. Pulse ox 99% on 4 L O2 he is afebrile. Labs this morning show his creatinine is down from 5.1-3.4. GFR is 17. Stool for occult blood was positive. INR today is 2.2. Hemoglobin is pending from today, 2 days ago was 7.4. Mentation is close to her baseline at this time. Nephrology and infectious ease are following. He is positive for Proteus UTI. He has a history of urinary retention. He remains on Coumadin for his atrial fibrillation. He has positive for Hemoccult stool will continue to monitor his blood count. His anticoagulant may need to be discontinued. He is planning on ECF at [facility] for rehabilitation and to continue dialysis in the hopes that he will not need this for life. Repeat labs in a.m.. Wait on further recommendations from nephrology regarding his dialysis schedule. Continue cholestyramine for his diarrhea. He will continue his updrafts for COPD. He is on midodrine for hypotension. Infectious diseases manage monitoring and is continued on antibiotics of Zosyn at this time. He will be reevaluated in the next 24 hours. December 08, 2023: Patient is resting calmly with his room with family at bedside. He continues to have low urine output. He continues dialysis. His case was discussed with Dr. Nye. She indicates he will need a dialysis catheter for and discharge to [facility]. Take himself has no complaints today other than needing to have a bowel movement. Vitals are stable, blood pressure remains in the 90s systolic. Pulse oximetry remains in the 90s on 4 L of O2. Labs today show an INR 2.3 and a BUN of 32.5 with creatinine 3.2 and a GFR of 19. Urine output is only recorded 25 cc currently. Infectious disease recommends finishing his course of Zosyn. Continue medications and treatments, he will continue dialysis, expect dialysis catheter placed tomorrow, expect discharge tomorrow and on Saturday or Saturday, will continue physical therapy, repeat labs in a.m., he will be reevaluated by family medicine in the next 24 hours. 12/09/2023 patient has received adequate antibiotic therapy for underlying UTI, Zosyn has been discontinued and continue to monitor patient closely off antibiotic as recommended per infectious disease. During this hospitalization patient refused hemodialysis for some time, patient and family did have a hospice informational meeting, but now is decided to proceed/resume hemodialysis. Hemodialysis scheduled for Saturday schedule. Continues on midodrine. Patient will be discharged to [facility] subacute rehab. today, in a stable condition with guarded prognosis, following permacath placement, removal of temporary femoral dialysis catheter and arrangement of hemodialysis chair outpatient. Denies chest pain, palpitations or increase in shortness of breath. The impression and plan of care has been dictated as directed. : I performed a history and examination of this patient, discussed the same with the dictator. I agree with the dictator's note ,documented as a scribe. Any additional findings or plans will be noted. Patient Condition at Discharge: Stable Plan - Discharge Summary Discharge Rx Participant: No New Discharge Prescriptions: New Ipratropium-Albuterol Nebulize [Duoneb 0.5 mg-3 mg/3 ml Soln] 3 ml INHALATION RT-QID each LORazepam [Ativan] 0.5 mg PO BID PRN 3 Days #6 tab PRN Reason: Anxiety Darbepoetin Ashish [Aranesp] 40 mcg SQ Q7D each Furosemide [Lasix] 20 mg PO DAILY tab Midodrine [ProAmatine] 5 mg PO AC-TID tab Acetaminophen Tab [Tylenol] 650 mg PO Q6HR PRN tab PRN Reason: Mild Pain Or Fever > 100.5 Ipratropium-Albuterol Nebulize [Duoneb 0.5 mg-3 mg/3 ml Soln] 3 ml INHALATION Q4H PRN each PRN Reason: Shortness Of Breath Or Wheezing Cefepime [Maxipime] 1 gm IVPB Q12H #20 each Mag Hydrox/Al Hydrox/Simeth [Maalox] 15 ml PO Q6HR PRN ml PRN Reason: Indigestion polyethylene glycoL 3350 [Miralax] 17 gm PO DAILY packet Famotidine [Pepcid] 20 mg PO DAILY tab Sodium Bicarbonate Tab 650 mg PO BID tab Calcium Carbonate [Tums] 1,000 mg PO Q4HR PRN tab PRN Reason: Dyspepsia Continue Fluticasone Propion/Salmeterol [Wixela 100-50 Inhub] 1 puff INHALATION RT-BID Sertraline [Zoloft] 50 mg PO HS Tamsulosin [Flomax] 0.4 mg PO DAILY Warfarin Sodium 4 mg PO MOWEFR@1999 Tiotropium 2.5 Mcg/Puff [Spiriva Respimat 2.5 Mcg] 2 puff INHALATION RT-DAILY Warfarin [Coumadin] 1 mg PO SUTUTHSA@1999 Bisoprolol [Zebeta] 5 mg PO DAILY Nitroglycerin Sl Tabs [Nitrostat] 0.4 mg SUBLINGUAL Q5M PRN tab PRN Reason: Chest Pain predniSONE 2.5 mg PO DAILY Ferrous Sulfate [Iron (65 MG Elemental)] 325 mg PO BID Ipratropium-Albuterol Nebulize [Duoneb 0.5 mg-3 mg/3 ml Soln] 3 ml INHALATION RT-QID PRN PRN Reason: Shortness Of Breath Discontinued Sacubitril/Valsartan [Entresto 49 mg-51 mg Tablet] 1 tab PO BID@0800,1600 Furosemide [Lasix] 40 mg PO DAILY LORazepam [Ativan] 0.5 mg PO BID PRN PRN Reason: Anxiety Discharge Medication List Fluticasone Propion/Salmeterol [Wixela 100-50 Inhub] 1 puff INHALATION RT-BID 05/05/22 [History] Sertraline [Zoloft] 50 mg PO HS 05/05/22 [History] Warfarin [Coumadin] 1 mg PO SUTUTH@199907/12/22 [History] Tamsulosin [Flomax] 0.4 mg PO DAILY 08/30/22 [History] Warfarin Sodium 4 mg PO MOWEFR@199908/30/22 [History] Bisoprolol [Zebeta] 5 mg PO DAILY 05/01/23 [History] Nitroglycerin Sl Tabs [Nitrostat] 0.4 mg SUBLINGUAL Q5M PRN tab 07/26/23 [Rx] Tiotropium 2.5 Mcg/Puff [Spiriva Respimat 2.5 Mcg] 2 puff INHALATION RT-DAILY 10/04/23 [History] Ferrous Sulfate [Iron (65 MG Elemental)] 325 mg PO BID 11/23/23 [History] Ipratropium-Albuterol Nebulize [Duoneb 0.5 mg-3 mg/3 ml Soln] 3 ml INHALATION RT-QID PRN 11/23/23 [History] predniSONE 2.5 mg PO DAILY 11/23/23 [History] Acetaminophen Tab [Tylenol] 650 mg PO Q6HR PRN tab 11/29/23 [Rx] Calcium Carbonate [Tums] 1,000 mg PO Q4HR PRN tab 11/29/23 [Rx] Cefepime [Maxipime] 1 gm IVPB Q12H #20 each 11/29/23 [Rx] Darbepoetin Ashish [Aranesp] 40 mcg SQ Q7D each 11/29/23 [Rx] Famotidine [Pepcid] 20 mg PO DAILY tab 11/29/23 [Rx] Furosemide [Lasix] 20 mg PO DAILY tab 11/29/23 [Rx] Ipratropium-Albuterol Nebulize [Duoneb 0.5 mg-3 mg/3 ml Soln] 3 ml INHALATION Q4H PRN each 11/29/23 [Rx] Ipratropium-Albuterol Nebulize [Duoneb 0.5 mg-3 mg/3 ml Soln] 3 ml INHALATION RT-QID each 11/29/23 [Rx] LORazepam [Ativan] 0.5 mg PO BID PRN 3 Days #6 tab 11/29/23 [Rx] Mag Hydrox/Al Hydrox/Simeth [Maalox] 15 ml PO Q6HR PRN ml 11/29/23 [Rx] Midodrine [ProAmatine] 5 mg PO AC-TID tab 11/29/23 [Rx] Sodium Bicarbonate Tab 650 mg PO BID tab 11/29/23 [Rx] polyethylene glycoL 3350 [Miralax] 17 gm PO DAILY packet 11/29/23 [Rx] Follow up Appointment(s)/Referral(s): Tan Bey Jr, DO [Primary Care Provider] - 3 Days Low Sloan DO [STAFF PHYSICIAN] - 1 Week Activity/Diet/Wound Care/Special Instructions: [facility] subacute rehab midline, IV antibiotics as per infectious disease Home meds Entresto on hold secondary to renal function and hypotension. Daily PT/INR, on Coumadin CBC, BMP, magnesium in 2 days 3 L nasal cannula O2 Discharge Disposition: TRANSFER TO SNF/ECF
--- NOTE | 2023-12-09 12:21 | P.PN ---
Subjective Progress Note Date: 12/09/23 Principal diagnosis: Reason for follow-up is a urinary tract infection Patient is a 83-year-old male with a past medical history significant for hyperlipidemia COPD heart failure with atrial fibrillation BPH presenting to the hospital for evaluation of diarrhea also difficulty urination requiring Felder catheter placement did have a positive UA and urine has been finalized with drug-resistant Proteus prompting this consultation. On today's evaluation that is 12/09/2023,the patient remains to be afebrile, patient is on 4 L nasal cannula supplemental oxygen and denies any shortness of breath no chest pain or any worsening cough.Patient denies having any nausea or vomiting, no abdominal pain and no diarrhea has been reported. The patient white count 7.28, creatinine is 4.5 Objective - Vital Signs Vital signs: Vital Signs Temp 98 F 12/09/23 07:00 Pulse 68 12/09/23 09:25 Resp 16 12/09/23 08:00 BP 94/57 12/09/23 07:00 Pulse Ox 100 12/09/23 07:00 FiO2 Intake & Output 12/08/23 12/09/23 12/09/23 18:59 06:59 18:59 Intake Total 118 Output Total 26 0 1 Balance -26 0 117 Intake: Oral 118 Output: Urine 25 0 Stool 1 1 Other: Voiding Method Indwelling Catheter Indwelling Catheter # Bowel Movements 4 - Exam GENERAL DESCRIPTION: An elderly male lying in bed in no distress RESPIRATORY SYSTEM: Unlabored breathing , decreased breath sounds at bases HEART: S1 S2 regular rate and rhythm , ABDOMEN: Soft , no tenderness EXTREMITIES: No edema feet - Labs CBC & Chem 7: 12/09/23 04:31 12/09/23 04:31 Labs: Abnormal Lab Results - Last 24 Hours (Table) 12/09/23 12/09/23 12/09/23 Range/Units 04:31 04:31 04:31 RBC 2.49 L (4.40-5.60) X 10*6/uL Hgb 7.5 L (13.0-17.0) g/dL Hct 25.1 L (39.6-50.0) % MCV 100.8 H (80.0-97.0) FL MCHC 29.9 L (32.0-37.0) g/dL RDW 19.5 H (11.5-14.5) % Immature Gran # 0.05 H (0.00-0.04) X 10*3/uL Lymphocytes # 0.63 L (0.90-5.00) X 10*3/uL NRBC/100 WBC Diff 0.03 H (0.00-0.01) X 10*3/uL PT 32.2 H (10.0-12.5) sec INR 3.3 H (<1.2) Anion Gap 13.80 H (4.00-12.00) mmol/L BUN 45.2 H (9.0-27.0) mg/dL Creatinine 4.5 H (0.6-1.5) mg/dL Est GFR (CKD-EPI) 12 L (>=60) BUN/Creatinine Ratio 10.04 L (12.00-20.00) Ratio Calcium 7.7 L (8.7-10.3) mg/dL Assessment and Plan (1) Cystitis Current Visit: Yes Status: Acute Code(s): N30.90 - CYSTITIS, UNSPECIFIED WITHOUT HEMATURIA SNOMED Code(s): 75386959 (2) UTI (urinary tract infection) Current Visit: Yes Status: Acute Code(s): N39.0 - URINARY TRACT INFECTION, SITE NOT SPECIFIED SNOMED Code(s): 88280636 Plan: 1patient presented to hospital with diarrhea he also have some suprapubic discomfort did have a significantly positive UA concerning for symptomatic urinary tract infection likely from gram-negative pathogen with urine currently showing drug-resistant Proteus and Pseudomonas aeruginosa that is sensitive to cefepime 2-patient underlying UTI has been adequately treated the patient antibiotic were discontinued yesterday and will monitor closely off antibiotic Dictation was produced using [employer] dictation software. please excuse any grammatical, word or spelling errors. Time with Patient: Less than 30
--- NOTE | 2023-12-09 12:49 | P.PCN ---
Description of Procedure: 83-year-old gentleman history of chronic renal failure replaced dialysis catheter right femoral approach patient is having dialysis today patient be scheduled tomorrow for placement of a permanent dialysis catheter in the patient nothing by mouth midnight and consent for permanent dialysis catheter
[2023-12-09] MEDS: FUROSEMIDE 10 MG/ML 10 ML VIAL IV STA (14:46)
[2023-12-09] MEDS: WARFARIN 0.5 MG TAB PO ONE (16:31)
[2023-12-10 05:13] LABS: INR 3.7 (<1.2); Prothrombin Time 35.9 sec (10.0-12.5)
--- NOTE | 2023-12-10 09:42 | P.PN ---
Subjective Patient is seen in follow-up for acute kidney injury. Started on hemodialysis November 30, 2023 due to worsening renal function and concern for uremia. Has Felder catheter for urinary retention. Patient refused hemodialysis for some time but then decided to resume. Tolerated 1 L ultrafiltration yesterday. Refused permacath placement this morning as he thought he was getting dialysis. Now agreeable to get it placed. Vital signs are stable. General: No acute distress. HEENT: Head exam is unremarkable. On nasal cannula. LUNGS: No audible rhonchi or wheezes. HEART: Rate and Rhythm are regular. ABDOMEN: Nontender. EXTREMITITES: No edema. Objective - Vital Signs Vital signs: Vital Signs Temp 97.4 F L 12/10/23 07:14 Pulse 70 12/10/23 09:21 Resp 15 12/10/23 07:14 BP 98/60 12/10/23 07:14 Pulse Ox 97 12/10/23 09:21 FiO2 Intake & Output 12/09/23 12/10/23 12/10/23 18:59 06:59 18:59 Intake Total 568 Output Total 2426 Balance -1858 Intake: Oral 168 Hemodialysis 400 Output: Urine 25 Stool 1 Hemodialysis 1400 Hemodialysis Net Amount 1000 Other: Voiding Method Indwelling Catheter Indwelling Catheter Indwelling Catheter # Voids 0 0 # Bowel Movements 1 3 1 - Labs CBC & Chem 7: 12/09/23 04:31 12/09/23 04:31 Labs: Abnormal Lab Results - Last 24 Hours (Table) 12/10/23 Range/Units 04:25 PT 35.9 H (10.0-12.5) sec INR 3.7 H (<1.2) Assessment and Plan Plan: Assessment: 1. Acute kidney injury secondary to obstructive uropathy and infection. Creatinine near 1 in May 2023. Renal function worse with creatinine 4.59 November 30, 2023. Started on hemodialysis November 30 2023 due to concern for uremia. Urine output low despite receiving IV Lasix. No hydronephrosis noted on CT. 2. Proteus UTI s/p antibiotics. ID following. 3. Chronic systolic CHF ejection fraction of 30 to 35%, mild to moderate aortic stenosis/tricuspid regurgitation and moderate to severe aortic regurgitation noted on echocardiogram done in July 2023. 4. Metabolic acidosis secondary to acute kidney injury and IV fluids. Status post bicarb drip. Further improved with dialysis. 5. Urinary retention. Has Felder catheter. On Flomax. Seen by urology. No further interventions planned. Felder management per urology. 6. Anemia. Status post IV iron. On Aranesp. Plan: Hemodialysis tomorrow. Will maintain on Saturday schedule. Permacath to be placed today. Discussed case with vascular surgery. Maintain midodrine. Encouraged oral intake. Continue to monitor renal function and urine output. Serologies negative except for mildly decreased C3 level. Urine eosinophils negative. Continue to monitor for renal recovery. Follow-up phosphorus level.
[2023-12-10] MEDS: PHYTONADIONE ORAL 5 MG/5 ML ORAL.SYRG PO STA (10:41)
[2023-12-10] MEDS: WARFARIN 0.5 MG TAB PO ONE (10:44)
--- NOTE | 2023-12-10 14:18 | P.PN ---
Subjective Progress Note Date: 12/10/23 11/23/23 Samir is a 83-year-old male well-known to the practice. He reports 3-day history of incessant diarrhea with multiple episodes of stools. He has a long history of atrial fibrillation, congestive heart failure, chronic renal failure, and a previous history of urinary retention with Felder catheter. Felder catheter was discontinued about 6 months ago and he had been doing well urinating without it. At this time he says he is urinating. He denies any chest pains pressures or shortness of breath that is different than any other time. He reports his stools are normal in color. Vitals are stable laboratory studies show a hyponatremia., He is chronically anemic hemoglobin is 9, BUN and creatinine are 83 and 2.47 with a GFR of 23. He is in good spirits. November 24, 2023: Patient is reevaluated today. He is feeling better overnight though he did have some confusion. He apparently called 911 while in his hospital bed. He says he realized his mistake right away and it was just after he was waking up that he felt very strange. He is feeling back to normal at this time. He denies any chest pains pressures. Shortness of breath is chronic and stable. Vital signs show temp 97.7 pulse oximetry 97% on 3 L O2, blood pressure is controlled. Labs this morning showed his sodium is now 139. Kidney function still little off with a BUN of 80 and a creatinine of 2.96. GFR is down to 19. Staff report postvoid residuals were 290 after urinating. He indicates he is urinating freely and does not wish to deal with a catheter at this time. He also reports no diarrhea overnight. Nephrology is following. 11/25/2023 worsening renal function, bicarb 15, BUN 74, creatinine 3.72, GFR 14, continues on bicarb drip. Nephrology following. blood sugars controlled. Viral studies negative, C. difficile negative. Sensorium significantly improved, alert and oriented x 3; staff reports patient is impulsive. Complains of constipation, no bowel movement in 2 days. Denies chest pain, palpitations or shortness of breath. Maintaining O2 sats in the 90s on 3 L nasal cannula. Echo from 07/25 reporting EF of 30 to 35%. Chest x-ray reported COPD with right basilar infiltrate/consolidation, persistent prominence of the left hilum. Brain CT reported no acute intracranial process. 11/26/2023 sensorium significantly improved. Maintained on bicarb drip, bicarb increased to 17, BUN 72, creatinine 3.9. Urine culture reporting gram-negative bacilli, Proteus Mirabilis, maintained on cefepime. Felder catheter for urinary retention. Evaluated by urology, recommendations noted including expecting this patient to have a higher postvoid residual of less than 500 mL. Maintaining O2 sats in the high 90s on 3 L nasal cannula. Hemoglobin decreased to 7.2, platelets 130. Denies chest pain, palpitations. INR 2.3 , anticoagulated on Coumadin .Reports very small bowel movement, MiraLAX changed from as needed to daily. 11/27/2023 mild tachycardia, low 1 teens,Bisprolol initiated. Coumadin per pharmacy dosing, INR elevated 3.7 today. Felder catheter present secondary to urinary retention. renal function worsening, creatinine 4.1. Bicarb 21.5, bicarb drip discontinued. maintaining O2 sats in the high 90s on 3 L nasal cannula. Continues on cefepime. 11/28/2023 IV fluids adjusted yesterday to half-normal saline at 75 mL, renal function slowly improving, bicarb 21.8, BUN 72, creatinine 3.9, estimated GFR 15. Urine output improving;Felder catheter.hepatitis serology nonreactive. Patient's bisoprolol resumed yesterday, heart rate better controlled. Nebulized bronchodilators adjusted yesterday with clinical improvement, continue O2 sats in the high 90s on 3 L nasal cannula, respiratory rate better controlled. Continues on cefepime, afebrile, normal WBC. Patient did not receive Coumadin last night as INR was elevated 3.7; INR decreased to 3.4, denies chest pain, palpitations or increase in shortness of breath. Hemoglobin 7.4, platelets 106. 11/29/2023 fluctuating mild confusion. Blood pressure soft, midodrine initiated. Afebrile, normal WBC, hemoglobin decreased to 7.7, platelets 109. No Coumadin last night, INR decreased to 2.3. Bicarb 22.5 BUN 38.2, creatinine increased to 4.1. Denies chest pain, palpitations. In the lead data architect hours patient complained of increased shortness of breath, O2 was increased up to 4 L, currently maintaining O2 sats of 99 on 5 L which has been decreased back down to 3 L nasal cannula O2, maintaining O2 sats in the high 90s. Positive bowel movement last night on MiraLAX. 12/02/2023 alert, confused, recognizes PCP, converses minimally. Evaluated by neurology over the weekend for potential CVA, workup in progress, brain MRI pending. Hemodialysis initiated on 11/30/2023. Scheduled for repeat hemodialysis today. Antibiotics adjusted yesterday to Zosyn, as per ID secondary to possible uremia underlying effect of cefepime. 2D echo completed 11/30/2023 reporting severely impaired left ventricular systolic function, EF 30 to 35% with global hypokinesis, mitral valve bioprosthesis with mild tricuspid regurgitation, tricuspid valve repair with moderate tricuspid regurgitation and moderate pulmonary hypertension, moderate aortic regurgitation.Carotid Doppler reported no hemodynamic significant stenosis.Brain CT reported mild age-appropriate atrophy, no acute intra or extra-axial hemorrhage, no mass effect or shift of the midline structures, tiny remote lacunar infarct in left basal ganglia. 12/03/2023 sensorium significantly improved ,alert and oriented x 3 this morning, strength improved. Hemodialysis last night, possible repeat hemodialysis today. Bicarb 22, BUN decreased to 33, creatinine 2.4, estimated GFR increased to 26. brain MRI pending. patient exasperated regarding his prolonged illness. EEG completed yesterday reported abnormal due to background slowing, suggestive of moderate to severe encephalopathy, intermittent high amplitude sharp appearing waves at 3 Hz, suggestive of underlying cortical irritability and tendency for seizures, nonconvulsive status also on the differential. continues on Zosyn for acute UTI. afebrile, normal WBC, hemoglobin stable at 8.3, platelets 146. Maintaining O2 sats in the high 90s on 4 L nasal cannula. Passed swallow evaluation, currently eating pasta. 12-03 patient reporting he he does not want to continue with hemodialysis, family at bedside. They wish to discuss further with nephrology. Labs pending. INR 2. denies chest pain, palpitations or increase in shortness of breath. O2 sats in the high 90s on 3 L nasal cannula. Continues on Zosyn. No seizure activity. 12/05/2023 during the night developed black tarry stools, stool for occult blood ordered, pending. INR 2.3 and Coumadin per pharmacy dosing. Soft blood pressures, change midodrine from prn to scheduled. Urine output low, 150 mL/24h. declining further hemodialysis treatments. renal function worsening, BUN 75.4, creatinine 5.1. Hemoglobin decreased to 7.4. Denies chest pain, palpitations or increase in shortness of breath. Maintaining O2 sats of 94% on 4 L nasal cannula. informational hospice meeting with patient and family pending. 12/06/2023 patient previously had declined further inpatient hemodialysis .After meeting with hospice yesterday for informational meeting, patient and family have decided to proceed with dialysis. Dialysis pending for today as per nephrology. Case management working on placement to facilitate dialysis. No further tarry stools reported. INR 2.2, Coumadin per pharmacy dosing. Blood pr essures soft, maintained on midodrine, dose increased. Fatigued, denies chest pain, palpitations or increased shortness of breath. Maintaining O2 sats in the high 90s on 4 L nasal cannula. Chest x-ray pending. 12/10/2023 Coumadin on hold, vitamin K administered as per vascular surgery for INR 3.7. Permanent dialysis catheter placement pending. Exhausted after hemodialysis yesterday. Maintaining O2 sats in the 90s on 3 L nasal cannula. Denies chest pain, palpitations. Objective - Vital Signs Vital signs: Vital Signs Temp 97.4 F L 12/10/23 07:14 Pulse 72 12/10/23 12:37 Resp 15 12/10/23 07:14 BP 112/52 12/10/23 12:37 Pulse Ox 97 12/10/23 09:21 FiO2 Intake & Output 12/09/23 12/10/23 12/10/23 18:59 06:59 18:59 Intake Total 568 Output Total 2426 Balance -1858 Weight 50.802 kg Intake: Oral 168 Hemodialysis 400 Output: Urine 25 Stool 1 Hemodialysis 1400 Hemodialysis Net Amount 1000 Other: Voiding Method Indwelling Catheter Indwelling Catheter Indwelling Catheter # Voids 0 0 # Bowel Movements 1 3 1 - Exam General: Cachexic, fatigued ,alert and oriented x 3, sitting up in bed, no acute distress. HEENT: Normocephalic, atraumatic PERRLA [email or web address]. Neck: Supple, no JVD Cardiac: Regular S1-S2, iregular rate and rhythm.Positive systolic murmur consistent with his aortic valve replacement Lungs: Diminished breath sounds bilaterally. Scattered rhonchi throughout Abdomen: Soft, nondistended ,nontender, no guarding, no rigidity, +BS. Extremes: [No edema no cyanosis no claudication normal pulses Skin: [No rash, warm and dry, Neurologic: Cranial nerves II through XII grossly intact, generalized weakness - Labs CBC & Chem 7: 12/09/23 04:31 12/09/23 04:31 Labs: Abnormal Lab Results - Last 24 Hours (Table) 12/10/23 Range/Units 04:25 PT 35.9 H (10.0-12.5) sec INR 3.7 H (<1.2) Assessment and Plan Assessment: Acute UTI, Pseudomonas aeruginosa, Proteus Mirabilis, cystitis, completed antibiotic treatment Acute metabolic encephalopathy, initially attributed to infection, acute renal failure; worsening-etiology unclear, neurology doubts acute CVA-as patient is on Coumadin, relating it more to his abnormal EEG. Neurology workup in progress. Antibiotic adjusted related to potential cephalosporin side effect. Improved with hemodialysis. Diarrhea, resolved. Constipation Dehydration Hypotension,on midodrine Acute on chronic renal failure stage IV, secondary to acute UTI, urinary retention, possibly cardiorenal syndrome. Hemodialysis initiated on 11/30/2023 Metabolic acidosis secondary to the above, status post bicarb drip. On oral bicarb Urinary retention requiring Felder catheter placement. No hydronephrosis. Right basilar infiltrate,consolidation, persistent prominence of the left hilum, reported per chest x-ray. COPD Moderate to severe pulmonary hypertension Chronic hypoxic respiratory failure on home oxygen Chronic heart failure with reduced EF. Echo of 11/30/2023 reporting severe impaired LV systolic function with global hypokinesis, EF 30 to 35% History of nonischemic cardiomyopathy Anemia of chronic disease Persistent atrial fibrillation History of tissue mitral valve [facility], [facility] of tricuspid valve repair, [facility] 2015 [facility] ; echo 11/30/2023 reporting moderate tricuspid regurgitation Hypertension Hyperlipidemia Peripheral vascular disease History of abdominal aortic aneurysm History of rheumatic fever Severe protein calorie malnutrition, BMI 17 Plan continue on current medication regimen ,monitoring and symptomatic treatment. Permanent hemodialysis catheter placement pending .Coumadin on hold, received vitamin K as per vascular surgery.discharge planning in progress for subacute rehab. at discharge prognosis guarded given multiple complex medical issues. The impression and plan of care has been dictated as directed. : I performed a history and examination of this patient, discussed the same with the dictator. I agree with the dictator's note ,documented as a scribe. Any additional findings or plans will be noted.
--- NOTE | 2023-12-10 14:37 | P.PN ---
Subjective Progress Note Date: 12/10/23 Principal diagnosis: Reason for follow-up is a urinary tract infection Patient is a 83-year-old male with a past medical history significant for hyperlipidemia COPD heart failure with atrial fibrillation BPH presenting to the hospital for evaluation of diarrhea also difficulty urination requiring Felder catheter placement did have a positive UA and urine has been finalized with drug-resistant Proteus prompting this consultation. On today's evaluation that is 12/10/2023, the patient continues to be afebrile, the patient is on 3 L current oxygen ir and breathing comfortably, the Pt denies having any chest pain or any worsening cough, the patient denies having any abdominal pain no vomiting or any diarrhea has been reported by the nursing staff. Patient did have INR of 3.7 no CBC was done today Objective - Vital Signs Vital signs: Vital Signs Temp 97.8 F 12/10/23 14:00 Pulse 74 12/10/23 14:00 Resp 15 12/10/23 14:00 BP 95/52 12/10/23 14:00 Pulse Ox 96 12/10/23 14:00 FiO2 Intake & Output 12/09/23 12/10/23 12/10/23 18:59 06:59 18:59 Intake Total 568 Output Total 2426 Balance -1858 Weight 50.802 kg Intake: Oral 168 Hemodialysis 400 Output: Urine 25 Stool 1 Hemodialysis 1400 Hemodialysis Net Amount 1000 Other: Voiding Method Indwelling Catheter Indwelling Catheter Indwelling Catheter # Voids 0 0 # Bowel Movements 1 3 1 - Exam GENERAL DESCRIPTION: An elderly male lying in bed in no distress RESPIRATORY SYSTEM: Unlabored breathing , decreased breath sounds at bases HEART: S1 S2 regular rate and rhythm , ABDOMEN: Soft , no tenderness EXTREMITIES: No edema feet - Labs CBC & Chem 7: 12/09/23 04:31 12/09/23 04:31 Labs: Abnormal Lab Results - Last 24 Hours (Table) 12/10/23 Range/Units 04:25 PT 35.9 H (10.0-12.5) sec INR 3.7 H (<1.2) Assessment and Plan (1) Cystitis Current Visit: Yes Status: Acute Code(s): N30.90 - CYSTITIS, UNSPECIFIED WITHOUT HEMATURIA SNOMED Code(s): 20988467 (2) UTI (urinary tract infection) Current Visit: Yes Status: Acute Code(s): N39.0 - URINARY TRACT INFECTION, SITE NOT SPECIFIED SNOMED Code(s): 43941343 Plan: 1patient presented to hospital with diarrhea he also have some suprapubic discomfort did have a significantly positive UA concerning for symptomatic urinary tract infection likely from gram-negative pathogen with urine currently showing drug-resistant Proteus and Pseudomonas aeruginosa that is sensitive to cefepime 2-patient has received adequate antibiotic for his underlying Pseudomonas urinary tract infection currently doing well off antibiotics and will monitor closely Dictation was produced using [employer] dictation software. please excuse any grammatical, word or spelling errors. Time with Patient: Less than 30
[2023-12-10 18:25] LABS: INR 3.2 (<1.2); Prothrombin Time 31.4 sec (10.0-12.5)
[2023-12-11 06:39] LABS: INR 1.7 (<1.2); Prothrombin Time 17.2 sec (10.0-12.5)
[2023-12-11] MEDS: fentaNYL (PF) 50 MCG/ML 2 ML AMP IVP ONE (07:47)
[2023-12-11] MEDS: MIDAZOLAM 2 MG/2 ML VIAL IVP ONE (07:47)
[2023-12-11] MEDS: LIDOCAINE 1% INJ 10MG/ML (20 ML MDV) SQ ONE (07:49)
[2023-12-11] MEDS: HEPARIN SODIUM,PORCINE (1 ML) 2,500 UNIT in SODIUM CHLORIDE 0.9% 250 ML IRRIGATION ONE (07:49)
--- NOTE | 2023-12-11 08:59 | OP ---
OPERATIVE REPORT DATE OF SERVICE : PREOPERATIVE DIAGNOSIS: Acute chronic renal failure. POSTOPERATIVE DIAGNOSIS: Acute chronic renal failure. PROCEDURES PERFORMED: 1. Ultrasound-guided 19 cm dialysis catheter, right jugular approach. 2. Removal of the femoral catheter. DESCRIPTION OF PROCEDURE: This patient was brought to the dairy laboratory technician. Right side of the neck and chest was prepped and drapes applied in a usual sterile manner. Local and IV sedation. Ultrasound- guided Micropuncture introduced into the right jugular vein. Micropuncture guidewire was passed and 4-Welsh dilator advanced on top of the guidewire. Then, we created a tunnel. Through the tunnel, we brought 19 cm dialysis catheter. The dilator was advanced and sheath was advanced on top of the guidewire. Through the sheath, we introduced the dialysis catheter. Tip of the catheter in superior vena cava. After injection, flushed with heparin saline and hep-locked, then groin was prepped and femoral catheter was removed. Pressure held. The patient tolerated the procedure well. We will do x-ray of the chest for the right IJ catheter placement. MMODL / IJN: [id number] /
--- NOTE | 2023-12-11 09:03 | IR ---
EXAMINATION TYPE: IR cvc insert >=5 years DATE OF EXAM: 12/11/2023 FLUOROSCOPY TUNNELED HD INSERTION, 1.0 MINS FLT, 0.005GY. 29 images provided. Images show double lumen hemodialys is catheter on the right with tips near the region of the lower SVC. Median sternotomy wires. [facility], , 12/11/2023 9:01 AM
--- NOTE | 2023-12-11 09:12 | XR ---
EXAMINATION TYPE: XR chest 1V DATE OF EXAM: 12/11/2023 COMPARISON: 12/06/2023 HISTORY: 83-year-old male hemodialysis placement TECHNIQUE: Single frontal view of the chest is obtained. FINDINGS: Right-sided double-lumen hemodialysis catheter with tips at the upper to mid SVC. Patient is rotated toward the left ultrasound and normal cardiac mediastinal contours. Median sternotomy wire s with prosthetic cardiac valve and additional annuloplasty ring. Heart is upper limits of normal in size. Hyperinflation. Patchy mid and lower lung opacities with trace pleural effusions. Upper lung farhan cencies with hyperinflation. Overall appearance is relatively similar to prior exam. No appreciable p neumothorax. IMPRESSION: 1. New right-sided double-lumen hemodialysis catheter with tips at the upper to mid SVC. 2. Otherwise, similar exam with COPD and prominent patchy mid and lower lung opacities and suspected trace effusions. [facility], , 12/11/2023 9:10 AM
[2023-12-11] MEDS: ENOXAPARIN 40 MG/0.4 ML SYRINGE SQ SCH (10:43)
[2023-12-11 10:46] LABS: Basophils # (A) 0.03 X 10*3/uL (0.00-0.10); Basophils % (A) 0.4 %; Eosinophils # (A) 0.07 X 10*3/uL (0.04-0.35); HCT 27.2 % (39.6-50.0); Lymphocytes # (A) 0.96 X 10*3/uL (0.90-5.00); Lymphocytes % (A) 13.2 %; MCH 30.2 pg (27.0-32.0); MCHC 29.4 g/dL (32.0-37.0); MCV 102.6 FL (80.0-97.0); Mean Platelet Volume 10.2 FL (9.5-12.2); Monocytes # (A) 0.57 X 10*3/uL (0.20-1.00); Monocytes % (A) 7.9 %; NRBC Per 100 WBC 0 X 10*3/uL (0.00-0.01); Neutrophils # (A) 5.58 X 10*3/uL (1.80-7.70); Neutrophils % (A) 76.9 %; Platelet Count 241 X 10*3/uL (140-440); RBC 2.65 X 10*6/uL (4.40-5.60); RDW 19.9 % (11.5-14.5); WBC 7.25 X 10*3/uL (4.50-10.00)
--- NOTE | 2023-12-11 10:52 | P.PN ---
Subjective Patient is seen in follow-up for acute kidney injury. Started on hemodialysis November 30, 2023 due to worsening renal function and concern for uremia. Has Felder catheter for urinary retention. Patient refused hemodialysis for some time but then decided to resume. Permacath placed this morning. Scheduled for dialysis today. Vital signs are stable. General: No acute distress. HEENT: Head exam is unremarkable. On nasal cannula. LUNGS: No audible rhonchi or wheezes. HEART: Rate and Rhythm are regular. ABDOMEN: Nontender. EXTREMITITES: No edema. Objective - Vital Signs Vital signs: Vital Signs Temp 97.4 F L 12/11/23 06:45 Pulse 72 12/11/23 09:19 Resp 18 12/11/23 09:19 BP 107/62 12/11/23 06:45 Pulse Ox 96 12/11/23 09:10 FiO2 Intake & Output 12/10/23 12/11/23 12/11/23 18:59 06:59 18:59 Weight 50.802 kg Other: Voiding Method Indwelling Catheter Indwelling Catheter Indwelling Catheter # Bowel Movements 1 3 - Labs CBC & Chem 7: 12/11/23 05:32 12/09/23 04:31 Labs: Abnormal Lab Results - Last 24 Hours (Table) 12/10/23 12/11/23 12/11/23 Range/Units 17:45 05:32 05:32 RBC 2.65 L (4.40-5.60) X 10*6/uL Hgb 8.0 L (13.0-17.0) g/dL Hct 27.2 L (39.6-50.0) % MCV 102.6 H (80.0-97.0) FL MCHC 29.4 L (32.0-37.0) g/dL RDW 19.9 H (11.5-14.5) % PT 31.4 H 17.2 H (10.0-12.5) sec INR 3.2 H 1.7 H (<1.2) Assessment and Plan Plan: Assessment: 1. Acute kidney injury secondary to obstructive uropathy and infection. Creatinine near 1 in May 2023. Renal function worse with creatinine 4.59 November 30, 2023. Started on hemodialysis November 30 2023 due to concern for uremia. Urine output low despite receiving IV Lasix. No hydronephrosis noted on CT. permacath placed December 11, 2023. 2. Proteus UTI s/p antibiotics. ID following. 3. Chronic systolic CHF ejection fraction of 30 to 35%, mild to moderate aortic stenosis/tricuspid regurgitation and moderate to severe aortic regurgitation noted on echocardiogram done in July 2023. 4. Metabolic acidosis secondary to acute kidney injury and IV fluids. Status post bicarb drip. Further improved with dialysis. 5. Urinary retention. Has Felder catheter. On Flomax. Seen by urology. No further interventions planned. Felder management per urology. 6. Anemia. Status post IV iron. On Aranesp. Plan: Hemodialysis today. Will maintain on Saturday schedule. Maintain midodrine. Encouraged oral intake. Continue to monitor renal function and urine output. Serologies negative except for mildly decreased C3 level. Urine eosinophils negative. Continue to monitor for renal recovery. Follow-up phosphorus level. Outpatient dialysis to be set up by case management.
[2023-12-11 11:09] LABS: BUN/Creat Ratio 7.82 Ratio (12.00-20.00); Blood Urea Nitrogen 38.3 mg/dL (9.0-27.0); Calcium 7.7 mg/dL (8.7-10.3); Carbon Dioxide 24.2 mmol/L (21.6-31.8); Chloride 99 mmol/L (96-109); Glucose 84 mg/dL (70-110); Potassium 4.6 mmol/L (3.5-5.5); Sodium 137 mmol/L (135-145)
[2023-12-11 16:19] VITALS: PULSE 80
[2023-12-11] MEDS: WARFARIN 2 MG TAB PO ONE (17:26)
[2023-12-11 17:48] VITALS: BP 96/59; RESP 20; TEMP 97.3
--- NOTE | 2023-12-12 14:15 | P.PN ---
Subjective Progress Note Date: 12/11/23 Principal diagnosis: Reason for follow-up is a urinary tract infection Patient is a 83-year-old male with a past medical history significant for hyperlipidemia COPD heart failure with atrial fibrillation BPH presenting to the hospital for evaluation of diarrhea also difficulty urination requiring Felder catheter placement did have a positive UA and urine has been finalized with drug-resistant Proteus prompting this consultation. On today's evaluation that is 12/11/2023, Patient is afebrile patient is currently on 3 L nasal current oxygen and denies having any shortness of breath, the patient denies any chest pain or any worsening cough, the patient denies any nausea vomiting did not have any abdominal pain and no diarrhea. Patient white count 7.25 creatinine is 4.9 INR is 1.7 Objective - Vital Signs Vital signs: Vital Signs Temp 97.4 F L 12/11/23 06:45 Pulse 78 12/11/23 12:29 Resp 18 12/11/23 12:29 BP 107/62 12/11/23 06:45 Pulse Ox 96 12/11/23 09:10 FiO2 Intake & Output 12/10/23 12/11/23 12/11/23 18:59 06:59 18:59 Weight 50.802 kg Other: Voiding Method Indwelling Catheter Indwelling Catheter Indwelling Catheter # Bowel Movements 1 3 - Exam GENERAL DESCRIPTION: An elderly male lying in bed in no distress RESPIRATORY SYSTEM: Unlabored breathing , decreased breath sounds at bases HEART: S1 S2 regular rate and rhythm , ABDOMEN: Soft , no tenderness EXTREMITIES: No edema feet - Labs CBC & Chem 7: 12/11/23 05:32 12/11/23 05:32 Labs: Abnormal Lab Results - Last 24 Hours (Table) 12/10/23 12/11/23 12/11/23 Range/Units 17:45 05:32 05:32 RBC 2.65 L (4.40-5.60) X 10*6/uL Hgb 8.0 L (13.0-17.0) g/dL Hct 27.2 L (39.6-50.0) % MCV 102.6 H (80.0-97.0) FL MCHC 29.4 L (32.0-37.0) g/dL RDW 19.9 H (11.5-14.5) % PT 31.4 H (10.0-12.5) sec INR 3.2 H (<1.2) Anion Gap 13.80 H (4.00-12.00) mmol/L BUN 38.3 H (9.0-27.0) mg/dL Creatinine 4.9 H (0.6-1.5) mg/dL Est GFR (CKD-EPI) 11 L (>=60) BUN/Creatinine Ratio 7.82 L (12.00-20.00) Ratio Calcium 7.7 L (8.7-10.3) mg/dL 12/11/23 Range/Units 05:32 RBC (4.40-5.60) X 10*6/uL Hgb (13.0-17.0) g/dL Hct (39.6-50.0) % MCV (80.0-97.0) FL MCHC (32.0-37.0) g/dL RDW (11.5-14.5) % PT 17.2 H (10.0-12.5) sec INR 1.7 H (<1.2) Anion Gap (4.00-12.00) mmol/L BUN (9.0-27.0) mg/dL Creatinine (0.6-1.5) mg/dL Est GFR (CKD-EPI) (>=60) BUN/Creatinine Ratio (12.00-20.00) Ratio Calcium (8.7-10.3) mg/dL Assessment and Plan (1) Cystitis Status: Acute Code(s): N30.90 - CYSTITIS, UNSPECIFIED WITHOUT HEMATURIA SNOMED Code(s): 96056287 (2) UTI (urinary tract infection) Status: Acute Code(s): N39.0 - URINARY TRACT INFECTION, SITE NOT SPECIFIED SNOMED Code(s): 72158497 Plan: 1patient presented to hospital with diarrhea he also have some suprapubic discomfort did have a significantly positive UA concerning for symptomatic urinary tract infection likely from gram-negative pathogen with urine currently showing drug-resistant Proteus and Pseudomonas aeruginosa that is sensitive to cefepime and Zosyn 2-patient has received adequate antibiotic for his underlying Pseudomonas ur inary tract infection and no need for antibiotics on discharge Dictation was produced using [employer] software. please excuse any grammatical, word or spelling errors. Time with Patient: Less than 30
== END 2023-12-11 19:00 | DRG 689 ==
LOC: EC 05:05 → 6NMEDSUR 07:37 → OBSVTOIN 11-25 07:28 → 6NMEDSUR 11-30 14:16
PROVIDERS: ADMIT Family Medicine; ATTEND Family Medicine
PROC: 5A1D70Z Performance of Urinary Filtration, Intermittent, Less than 6 Hours Per Day (ICD-10-PCS; 2023-11-30)
PROC: 02HV33Z Insertion of Infusion Device into Superior Vena Cava, Percutaneous Approach (ICD-10-PCS; principal; 2023-11-30 15:56)
PROC: 06PYX3Z Removal of Infusion Device from Lower Vein, External Approach (ICD-10-PCS; 2023-12-11 07:30)
DX: N30.01 Acute cystitis with hematuria (principal); E43 Unspecified severe protein-calorie malnutrition; G92.8 Other toxic encephalopathy; I50.23 Acute on chronic systolic (congestive) heart failure; N17.9 Acute kidney failure, unspecified; Z68.1 Body mass index [BMI] 19.9 or less, adult; E87.20 Acidosis, unspecified; I13.0 Hypertensive heart and chronic kidney disease with heart failure and stage 1 through stage 4 chronic kidney disease, or unspecified chronic kidney disease; E87.1 Hypo-osmolality and hyponatremia; D68.9 Coagulation defect, unspecified; I48.11 Longstanding persistent atrial fibrillation; N18.4 Chronic kidney disease, stage 4 (severe); I42.8 Other cardiomyopathies; J96.11 Chronic respiratory failure with hypoxia; R47.01 Aphasia; E86.0 Dehydration; J44.9 Chronic obstructive pulmonary disease, unspecified; B96.5 Pseudomonas (aeruginosa) (mallei) (pseudomallei) as the cause of diseases classified elsewhere; B96.4 Proteus (mirabilis) (morganii) as the cause of diseases classified elsewhere; Z99.81 Dependence on supplemental oxygen; D63.1 Anemia in chronic kidney disease; N40.1 Benign prostatic hyperplasia with lower urinary tract symptoms; N13.8 Other obstructive and reflux uropathy; I73.9 Peripheral vascular disease, unspecified; K59.00 Constipation, unspecified; E78.2 Mixed hyperlipidemia; Z96.89 Presence of other specified functional implants; Z91.158 Patient's noncompliance with renal dialysis for other reason; T36.1X5A Adverse effect of cephalosporins and other beta-lactam antibiotics, initial encounter; F41.9 Anxiety disorder, unspecified; Z79.01 Long term (current) use of anticoagulants; Z79.52 Long term (current) use of systemic steroids; Z79.899 Other long term (current) drug therapy; Z79.84 Long term (current) use of oral hypoglycemic drugs; Z86.73 Personal history of transient ischemic attack (TIA), and cerebral infarction without residual deficits; Z87.891 Personal history of nicotine dependence; Z99.2 Dependence on renal dialysis; Z95.3 Presence of xenogenic heart valve
CPT/HCPCS: 36410; 36415; 36556; 36558; 51798; 70450; 71045; 74176; 76937; 77001; 80048; 80053; 80061; 80074; 81001; 82140; 82150; 82272; 82607; 82746; 83690; 83735; 84100; 84165; 84443; 85025; 85027; 85610; 86038; 86160; 86162; 86225; 86255; 86334; 86850; 86900; 86901; 87045; 87046; 87077; 87086; 87186; 87205; 87324; 87636; 90935; 93306; 93880; 94640; 94760; 95816; 96361; 96365; 96366; 99211; 99285